=== PATIENT | male | born 1950 | race Two or more races ===

== ENCOUNTER 2020-06-02 06:21 | Emergency (ER) | payer MEDICARE, MEDICAID, SELFPAY ==
--- NOTE | 2020-06-02 | XR_ITS ---
EXAMINATION: XR knee LT 3V, XR tibia fibula LT 2V CLINICAL INFORMATION: Status post fall with pain. COMPARISON: None. TECHNIQUE: Left knee 4 views. AP and lateral left tibia and fibula. FINDINGS: LEFT KNEE: There is prominent prepatellar soft tissue swelling. No joint effusion is seen. 3 cannulated screws are present across the proximal tibia. Any previous fracture or osteotomy is completely healed with no residual deformity. No hardware complication is demonstrated. A small bone fragment projects over the posterior joint space and could represent small intra-articular loose body of undetermined chronicity. No other bony abnormality. LEFT TIBIA AND FIBULA: No additional abnormality of the tibia or fibula is demonstrated. IMPRESSION: Previous surgical procedure proximal left tibia. Question small intra-articular loose body of undetermined chronicity. No other bony abnormality. Prominent prepatellar soft tissue swelling. No joint effusion.
--- NOTE | 2020-06-02 | XR_ITS ---
EXAMINATION: XR ELBOW, LEFT CLINICAL INFORMATION: Fall and left elbow pain. COMPARISON: None TECHNIQUE: AP, lateral, and oblique views of the left elbow. FINDINGS: There is no acute fracture, malalignment, or definite joint effusion. Note is made that the lateral view is suboptimal for effusion evaluation. There are marginal osteophytes. There is no significant joint space narrowing. IMPRESSION: Mild osteoarthritis of the left elbow. No acute injury.
[2020-06-02 06:28] VITALS: BP 162/86; PULSE 77; RESP 20; TEMP 37.8; BMI 32.2
--- NOTE | 2020-06-02 06:40 | PC.NURSE ---
during exam at bedside pt states he has pain to the left elbow.
--- NOTE | 2020-06-02 06:45 | PC.NURSE ---
pt has bruising to the left knee
--- NOTE | 2020-06-02 06:46 | ED_ITS ---
HPI - Fall General Chief Complaint: Fall Stated Complaint: fall Time Seen by Provider: 06/02/20 06:42 Source: family Mode of arrival: ambulatory Limitations: no limitations History of Present Illness HPI Narrative: 69-year-old male who lost balance while walking in the street and tripped, patient landed on his left side, patient is complaining of left elbow, and left knee pain, patient was able to walk to home then called EMS to take him to the hospital. . Patient has no head injury, no head pain, no headache, no neck pain. No LOC. MD complaint: fall Onset (ago): hour(s) (2) Fall from: other ( Fell from own height.) Fall witnessed: no Place fall occurred: street Loss of consciousness: none Location of injury - extremities: left: elbow, knee and lower leg Severity: moderate Severity scale (1-10): 5 Quality: dull Associated symptoms (after fall): denies Related Data Allergies Allergy/AdvReac Type Severity Reaction Status Date / Time No Known Allergies Allergy Verified 06/02/20 08:47 [No Known Allergies*] Latex Exam Gloves Allergy Unknown rash Uncoded 04/29/20 00:00 Review of Systems Review of Systems: Yes all other systems are reviewed and are negative Constitutional: Constitutional: Denies chills, Denies daytime sleepiness, Denies fatigue, Denies fever(s), Denies lethargy, Denies stops breathing during sleep, Denies weakness and Denies weight gain Eyes: Eyes: Reports as per HPI ENT: Reports Normal hearing present, Reports dental pain and Reports nose pain Cardiovascular: Cardiovascular: Reports as per HPI Respiratory: Respiratory: Reports as per HPI Gastrointestinal: Gastrointestinal: Reports no additional gastrointestinal complaints Musculoskeletal: Musculoskeletal: Reports as per HPI Neurologic: Reports Normal hearing present, Denies Neuro-related abnormal movements and Denies weakness Endocrine: Endocrine: Denies fatigue PMFSH Past Medical History Source: nursing notes reviewed Medical History Diabetic acetonemia Hypertension Pancreatic abnormality Social History Social History Alcohol intake: unknown Smoking Status: Current every day smoker Smoked in Last 30 Days: Yes Use of substances other than those prescribed or required for medical reasons: Unknown Advance Directives: No Advance Directives Information Provided: No Physical Exam Vital Signs and I&O and Narrative: Vital Signs and I&O: Vital Signs Temp 100.0 F 06/02/20 06:28 Pulse 77 06/02/20 06:28 Resp 20 06/02/20 06:28 BP 162/86 H 06/02/20 06:28 Intake & Output 06/01/20 06/02/20 06/02/20 18:59 06:59 18:59 Weight 93.44 kg Body Mass Index 32.2 This is a 69-year-old male who lost balance and had a mechanical fall, patient sustained left elbow/ left knee pain, patient was able to ambulate at the scene. Left elbow exam: Positive tenderness, limited full range of motion, no deformity, neurovascularly intact. Left knee exam: Positive tenderness, low limited full range of motion due to tenderness, no deformity, neurovascularly intact. Const: General: cooperative and healthy appearing Orientati on/consciousness: oriented to person and oriented to place HENMT: Head: Yes normal to inspection Eyes: General: appearance normal, both eyes and all related structures Neck: Neck: Yes normal visual inspection, Yes full ROM and Yes no lymphadenopathy Chest: Chest palpation & inspection: normal inspection of the chest Resp: Effort & Inspection: normal respiratory effort Cardio: Jugular venous distension: no JVD GI: Inspection: Yes normal to inspection : General: Yes no CVA tenderness Back/Spine/Pelvis: Back: no CVA tenderness Skin: General skin exam: no rashes or lesions noted and elasticity normal Neuro: General: oriented to person and oriented to place Cranial nerves: Yes Normal hearing present Course Course Hospital Course: 69 years old male who came to the emergency department by ambulance after sustained a mechanical fall in the street, patient was complaining left elbow /left and knee pain, patient in the emergency department was able to ambulate, radiographic study showed no acute fracture. Patient GCS of 15, normal neuro exam, patient is not taking anticoagulation. Reevaluation(s) Reevaluation #1: patient in bed appears comfortable, no apparent distress, x- rays results were discussed with the patient, patient will ambulate in the emergency department then will be discharged using Tylenol/ NSAIDs if needed for pain. Time: 08:51 MDM - Fall MDM Narrative Medical decision making narrative: 69-year-old sustained mechanical fall complaining of contusion and pain in the left elbow/ left hip. Patient can safely go home using NSAIDs p.r.n. pain. Medical Records Attestation: I reviewed the patient's medical records. Lab Data Attestation: I reviewed the patient's lab results. Discharge Plan Discharge Clinical Impression: Contusion of soft tissue, Contusion of elbow, left, Contusion of knee, left Patient Disposition: Home, Self-Care Instructions: Contusion in Adults (ED) Print Language: Indonesian
[2020-06-02 09:05] VITALS: BP 138/78; PULSE 76; RESP 18
[2020-06-02] MEDS: Ibuprofen 600 MG TABLET PO (09:29)
== END 2020-06-02 09:39 | disposition home or self-care (01) ==
PROVIDERS: Emergency Provider Emergency Medicine; PCP Internal Medicine
DX: S50.02XA Contusion of left elbow, initial encounter (principal); S80.02XA Contusion of left knee, initial encounter; W01.0XXA Fall on same level from slipping, tripping and stumbling without subsequent striking against object, initial encounter; I10 Essential (primary) hypertension; F17.200 Nicotine dependence, unspecified, uncomplicated; Y93.01 Activity, walking, marching and hiking; Y92.480 Sidewalk as the place of occurrence of the external cause; Y99.9 Unspecified external cause status; Z79.891 Long term (current) use of opiate analgesic
CPT/HCPCS: 73080; 73562; 73590; 99283; 99284

== ENCOUNTER → 2020-06-06 11:06 | Outpatient (BNVA) | payer MEDICARE, SELFPAY | PROVIDERS: PCP Internal Medicine; Referring Provider Internal Medicine; Visit Provider Internal Medicine Gastroenterology | DX: K21.9 Gastro-esophageal reflux disease without esophagitis (principal); K59.09 Other constipation; Z79.899 Other long term (current) drug therapy; Z86.010 Personal history of colon polyps | CPT/HCPCS: 99213 ==

== ENCOUNTER → 2020-06-27 12:28 | Outpatient (BNVA) | payer MEDICARE, SELFPAY | PROVIDERS: PCP Internal Medicine; Visit Provider Orthopaedic Surgery | DX: M70.42 Prepatellar bursitis, left knee (principal) | CPT/HCPCS: 99212 ==

== ENCOUNTER → 2020-12-05 09:11 | Outpatient (BNVA) | payer MEDICARE, SELFPAY | PROVIDERS: PCP Internal Medicine; Visit Provider Internal Medicine Gastroenterology | DX: K59.09 Other constipation (principal); K21.9 Gastro-esophageal reflux disease without esophagitis; D63.8 Anemia in other chronic diseases classified elsewhere; Z86.010 Personal history of colon polyps | CPT/HCPCS: 99212 ==

== ENCOUNTER → 2020-12-06 09:47 | Outpatient (BNVA) | payer MEDICARE, SELFPAY | PROVIDERS: PCP Internal Medicine; Visit Provider Urology | DX: Z13.89 Encounter for screening for other disorder (principal) | CPT/HCPCS: Q3014 ==

== ENCOUNTER 2020-12-06 21:17 | Emergency (ER) | payer MEDICARE, SELFPAY ==
--- NOTE | ~2020-12-06 | XR_ITS ---
EXAMINATION: XR CHEST CLINICAL INFORMATION: Shortness of breath COMPARISON: Chest radiograph 01/31/2020, CT chest October 19 TECHNIQUE: 2 views of the chest were obtained. FINDINGS: Lungs are hyper inflated suggesting chronic obstructive pulmonary disease with flattening of the diaphragms. The heart size is normal. Some minimal bibasilar atelectasis is seen. No infiltrates, effusions or lung masses are seen. When comparison is made to the prior chest radiograph, there has been no significant interval change. XR/XR chest 2V IMPRESSION: No acute intrathoracic disease.
[2020-12-06 21:21] VITALS: BP 147/65; PULSE 69; RESP 18; TEMP 36.7; O2SAT 95; BMI 31.3
[2020-12-06 22:05] VITALS: BP 103/55; PULSE 65; RESP 12; TEMP 36.9; O2SAT 96
--- NOTE | 2020-12-06 22:45 | PC.NURSE ---
pt stated he wanted to leave and go to a different hospital, this nurse informed him that the doctor would be in shortly to see him but patient adamantly refused to wait and started disconnecting himself from bedside heart monitor and blood pressure cuff. MD went into room to assess patient and encourage him to stay but patient adamantly refused and once again said he was going to a different hospital. pt aware of risks of leaving, pt informed that he can return to [facility] at any time. pt alert and oriented, no respiratory distress noted. pt ambulated independently and gait is steady.
--- NOTE | 2020-12-06 22:55 | ED.GENADULT ---
HPI - General Adult General Chief complaint: General Medical Stated complaint: sob Time Seen by Provider: 12/06/20 22:41 Source: patient Mode of arrival: ambulatory History of Present Illness HPI narrative: This is a 70-year-old male who is minimally communicating at this time. On review of triage note had stated that his legs are weak with shortness of breath and back pain for 2 days. Attempted multiple times to engage patient in conversation as he is stating he wants to leave and go to another hospital, however he is declining further evaluation at this hospital. He was encouraged to stay as his symptoms would likely need further laboratory workup. Related Data Home Medications Medication Instructions Recorded Confirmed amlodipine 10 mg-atorvastatin 10 1 tab PO DAILY 06/06/20 12/06/20 mg tablet aspirin 81 mg tablet,delayed 81 mg PO DAILY 06/06/20 12/06/20 release clotrimazole 1 % topical cream 1 applic TOPICAL BID 06/06/20 12/06/20 diphenhydramine HCl 25 mg capsule 25 mg PO BEDTIME 06/06/20 12/06/20 insulin glargine 100 unit/mL (3 10 unit SUBCUT QPM 06/06/20 12/06/20 mL) subcutaneous pen lisinopril 40 mg tablet 40 mg PO DAILY 06/06/20 12/06/20 loratadine 10 mg capsule 10 mg PO DAILY 06/06/20 12/06/20 metformin 500 mg tablet 500 mg PO DAILY 06/06/20 12/06/20 metoprolol succinate 25 mg 12.5 mg PO DAILY 06/06/20 12/06/20 tablet,extended release 24 hr omega-3 fatty acids 1,000 mg 1,000 mg PO DAILY 06/06/20 12/06/20 capsule sennosides 8.6 mg capsule 8.6 mg PO BEDTIME 06/06/20 12/06/20 simvastatin 20 mg tablet 20 mg PO BEDTIME 06/06/20 12/06/20 trazodone 50 mg tablet 25 mg PO BEDTIME PRN 06/06/20 12/06/20 ziprasidone HCl 40 mg capsule 40 mg PO BID 06/06/20 12/06/20 zolpidem 5 mg tablet 5 mg PO BEDTIME PRN 06/06/20 12/06/20 buprenorphine 8 mg-naloxone 2 mg 10 mg SUBLINGUAL BID 12/06/20 12/06/20 sublingual film Previous Rx's Medication Instructions Recorded sucralfate 1 gram tablet 1 g PO BID 30 Days #60 tab 09/12/20 omeprazole 20 mg capsule,delayed 20 mg PO DAILY 90 Days #90 cap 10/04/20 release ferrous sulfate 300 mg (60 mg 150 mg PO DAILY 30 Days #75 ml 12/05/20 iron)/5 mL oral liquid oxybutynin chloride 5 mg 5 mg PO DAILY 90 Days #90 tab 12/06/20 tablet,extended release 24 hr tamsulosin 0.4 mg capsule 0.4 mg PO BEDTIME 90 Days #90 cap 12/06/20 Allergies Allergy/AdvReac Type Severity Reaction Status Date / Time No Known Allergies Allergy Verified 12/06/20 09:50 [No Known Allergies*] Latex Exam Gloves Allergy Unknown rash Uncoded 06/27/20 13:11 Review of Systems Review of Systems: Unable to be completed due to patient unwilling to communicate. [facility] Past Medical History Source: nursing notes reviewed Medical History Anxiety CAD (coronary artery disease) Chronic constipation COPD (chronic obstructive pulmonary disease) Diabetes mellitus Genital herpes GERD (gastroesophageal reflux disease) History of adenomatous polyp of colon Hypertension Opioid dependence on agonist therapy JAUN (obstructive sleep apnea) Pancreatic abnormality Prepatellar bursitis, left knee Surgical History No history of previous surgery Family History Family History Mother No problems noted. Father Liver cancer Social History Social History Alcohol intake: never Smoking Status: Current every day smoker Smoked in Last 30 Days: Yes Use of substances other than those prescribed or required for medical reasons: No Advance Directives: No Advance Directives Information Provided: No Current occupational status: retired Current occupation: right handed Physical Exam Vital Signs: Vital Signs: Last Vital Signs Temp 98.4 F 12/06/20 22:05 Pulse 65 12/06/20 22:05 Resp 12 12/06/20 22:05 BP 103/55 L 12/06/20 22:05 Pulse Ox 96 04/09/21 22:05 Body Mass Index 31.3 VITAL SIGNS: Reviewed. GENERAL: Well developed, well nourished, in no acute distress. PULM: Patient noted to be pursing lips while getting dressed NEUROLOGIC: Alert and oriented, Strength grossly intact x 4 without obvious focal deficits. Course Course Course Narrative: 70-year-old male presents with complaints of shortness of breath and grossly observed to have mild exertional shortness of breath while getting dressed. On review of chest x-ray is consistent with underlying COPD but otherwise without acute findings. Despite multiple attempts to encourage the patient to stay for further evaluation here in the emergency department and informing him of the risks and not stay for the complete evaluation the patient has decided to leave and pursue evaluation at another institution. Discharge Plan Discharge Clinical Impression: Breath shortness Patient Disposition: Left Against Medical Advice Instructions: Shortness of Breath (ED) Prescriptions: No Action sucralfate 1 gram tablet 1 g PO BID 30 Days Qty: 60 RF: 3 omeprazole 20 mg capsule,delayed release(DR/EC) 20 mg PO DAILY 90 Days Qty: 90 RF: 1 amlodipine-atorvastatin 10-10 mg tablet 1 tab PO DAILY RF: 0 aspirin 81 mg tablet,delayed release (DR/EC) 81 mg PO DAILY RF: 0 insulin glargine 100 unit/mL (3 mL) insulin pen 10 unit subcut QPM RF: 0 loratadine 10 mg capsule 10 mg PO DAILY RF: 0 metformin 500 mg tablet 500 mg PO DAILY RF: 0 omega-3 fatty acids [Fish Oil Concentrate] 1,000 mg capsule 1,000 mg PO DAILY RF: 0 simvastatin 20 mg tablet 20 mg PO BEDTIME RF: 0 trazodone 50 mg tablet 25 mg PO BEDTIME PRN (Reason: Insomnia) RF: 0 zolpidem 5 mg tablet 5 mg PO BEDTIME PRN (Reason: Insomnia) RF: 0 lisinopril 40 mg tablet 40 mg PO DAILY RF: 0 ziprasidone HCl 40 mg capsule 40 mg PO BID RF: 0 diphenhydramine HCl [Allergy (diphenhydramine)] 25 mg capsule 25 mg PO BEDTIME RF: 0 clotrimazole 1 % cream 1 applic topical BID RF: 0 metoprolol succinate 25 mg tablet extended release 24 hr 12.5 mg PO DAILY RF: 0 senna 8.6 mg capsule 8.6 mg PO BEDTIME RF: 0 ferrous sulfate 300 mg (60 mg iron)/5 mL liquid 150 mg PO DAILY 30 Days Qty: 75 RF: 3 buprenorphine-naloxone 8-2 mg film 10 mg sublingual BID RF: 0 tamsulosin 0.4 mg capsule 0.4 mg PO BEDTIME 90 Days Qty: 90 RF: 1 oxybutynin chloride 5 mg tablet extended release 24hr 5 mg PO DAILY 90 Days Qty: 90 RF: 1 Stand Alone Forms: Against Medical Advice Interventions: ED Discharge Assessment Last Done: 12/06/20 22:48 Discharge Date/Time: 12/06/20 22:50
== END 2020-12-06 22:50 | disposition left against medical advice (07) ==
PROVIDERS: Emergency Provider Student in an Organized Health Care Education/Training Program
DX: R06.02 Shortness of breath (principal); R53.1 Weakness; J44.9 Chronic obstructive pulmonary disease, unspecified; M54.9 Dorsalgia, unspecified; E11.9 Type 2 diabetes mellitus without complications; I10 Essential (primary) hypertension; K21.9 Gastro-esophageal reflux disease without esophagitis; F11.20 Opioid dependence, uncomplicated; Z79.82 Long term (current) use of aspirin; Z79.4 Long term (current) use of insulin; Z79.899 Other long term (current) drug therapy
CPT/HCPCS: 71046; 99283; 99284

== ENCOUNTER 2020-12-21 13:37 | Emergency (ER) | payer MEDICARE, SELFPAY ==
[2020-12-21 13:45] VITALS: BP 149/75; PULSE 75; RESP 16; TEMP 36.9; O2SAT 97; BMI 31.3
--- NOTE | 2020-12-21 13:51 | ECG_ITS ---
Test Reason : CP Blood Pressure : / mmHG Vent. Rate : 072 BPM Atrial Rate : 072 BPM P-R Int : 196 ms QRS Dur : 118 ms QT Int : 416 ms P-R-T Axes : 071 -74 062 degrees QTc Int : 455 ms Normal sinus rhythm Incomplete right bundle branch block Left anterior fascicular block Abnormal ECG When compared with ECG of 11-MAR-2020 18:47, No significant change was found Referred By: Generic ED Physician Electronically Signed By:ROSELYN MOYER MD
--- NOTE | 2020-12-21 14:35 | ED_ITS ---
HPI - Chest Pain General Chief Complaint: Chest Pain Stated Complaint: facial swelling Time Seen by Provider: 12/21/20 14:32 Source: patient Mode of arrival: ambulatory Limitations: no limitations History of Present Illness HPI narrative: 70 y/o male with history of DM on insulin, BPH, COPD, GERD, JAUN, CAD, anxiety, constipation, substance abuse, anemia of chronic disease & schizoaffective disorder who presents to the ED with sharp left sided, non- radiating chest pain since last night. He states it was mild last night but worse this morning when he woke up. He also noticed he had left sided jaw swelling and tenderness. He has some mouth pain as well. He reports chronic SOB with history of COPD and JAUN, compliant with inhalers and CPAP. His chest pain is worse when he lays on his left side and when he touches his chest wall. He denies injury. MD complaint: chest pain Pertinent past history: other (COPD) Onset (ago): day(s) (1) Timing of current episode: constant Prior episodes: Yes Onset: during rest Pain location: left chest Pain radiation: none Severity: moderate Quality: aching Relieving factors: nothing Exacerbating factors: other (laying on left side) Context: non compliance with medication Treatment prior to arrival: none Risk Factors Coronary artery disease risk factors: diabetes, hyperlipidemia and hypertension Thoracic aortic dissection risk factors: none Related Data Home Medications Medication Instructions Recorded Confirmed amlodipine 10 mg-atorvastatin 10 1 tab PO DAILY 06/06/20 12/06/20 mg tablet aspirin 81 mg tablet,delayed 81 mg PO DAILY 06/06/20 12/06/20 release clotrimazole 1 % topical cream 1 applic TOPICAL BID 06/06/20 12/06/20 diphenhydramine HCl 25 mg capsule 25 mg PO BEDTIME 06/06/20 12/06/20 insulin glargine 100 unit/mL (3 10 unit SUBCUT QPM 06/06/20 12/06/20 mL) subcutaneous pen lisinopril 40 mg tablet 40 mg PO DAILY 06/06/20 12/06/20 loratadine 10 mg capsule 10 mg PO DAILY 06/06/20 12/06/20 metformin 500 mg tablet 500 mg PO DAILY 06/06/20 12/06/20 metoprolol succinate 25 mg 12.5 mg PO DAILY 06/06/20 12/06/20 tablet,extended release 24 hr omega-3 fatty acids 1,000 mg 1,000 mg PO DAILY 06/06/20 12/06/20 capsule sennosides 8.6 mg capsule 8.6 mg PO BEDTIME 06/06/20 12/06/20 simvastatin 20 mg tablet 20 mg PO BEDTIME 06/06/20 12/06/20 trazodone 50 mg tablet 25 mg PO BEDTIME PRN 06/06/20 12/06/20 ziprasidone HCl 40 mg capsule 40 mg PO BID 06/06/20 12/06/20 zolpidem 5 mg tablet 5 mg PO BEDTIME PRN 06/06/20 12/06/20 buprenorphine 8 mg-naloxone 2 mg 10 mg SUBLINGUAL BID 12/06/20 12/06/20 sublingual film Previous Rx's Medication Instructions Recorded sucralfate 1 gram tablet 1 g PO BID 30 Days #60 tab 09/12/20 omeprazole 20 mg capsule,delayed 20 mg PO DAILY 90 Days #90 cap 10/04/20 release ferrous sulfate 300 mg (60 mg 150 mg PO DAILY 30 Days #75 ml 12/05/20 iron)/5 mL oral liquid oxybutynin chloride 5 mg 5 mg PO DAILY 90 Days #90 tab 12/06/20 tablet,extended release 24 hr tamsulosin 0.4 mg capsule 0.4 mg PO BEDTIME 90 Days #90 cap 12/06/20 amoxicillin-pot clavulanate 1 tab PO BID #14 tab 12/21/20 [Augmentin] Allergies Allergy/AdvReac Type Severity Reaction Status Date / Time No Known Allergies Allergy Verified 12/06/20 09:50 [No Known Allergies*] Latex Exam Gloves Allergy Unknown rash Uncoded 06/27/20 13:11 Review of Systems Review of Systems: Constitutional: No Fever, No Chills ENT/Mouth: No sore throat, No Rhinorrhea, No Swallowing Difficulty, +mouth pain Cardiovascular: + Chest Pain, + SOB, No Orthopnea, No Edema Respiratory: No Cough, No Sputum, No Wheezing, No dyspnea Gastrointestinal: No Nausea, No Vomiting, No Diarrhea, No abdominal Pain Genitourinary: No Dysuria, No Urinary Frequency, No Hematuria Musculoskeletal: No joint pain, No Myalgias Skin: No Skin Lesions, No rash Neuro: No Weakness, No Numbness, No Dizziness, No Headache Psych: No Anxiety/Panic, No Depression Heme/Lymph: No Bruising, No Lymphadenopathy Endocrine: No Polyuria, No Polydipsia PMF Past Medical History Medical History Anxiety CAD (coronary artery disease) Chronic constipation COPD (chronic obstructive pulmonary disease) Diabetes mellitus Genital herpes GERD (gastroesophageal reflux disease) History of adenomatous polyp of colon Hypertension Opioid dependence on agonist therapy JAUN (obstructive sleep apnea) Pancreatic abnormality Prepatellar bursitis, left knee Surgical History No history of previous surgery Family History Family History Mother No problems noted. Father Liver cancer Social History Social History Alcohol intake: never Smoking Status: Current every day smoker Advance Directives: No Advance Directives Information Provided: No Current occupational status: retired Current occupation: right handed Physical Exam Vital Signs: Vital Signs: Last Vital Signs Temp 98.4 F 12/21/20 13:45 Pulse 75 12/21/20 13:45 Resp 16 12/21/20 13:45 BP 149/75 H 12/21/20 13:45 Pulse Ox 97 12/21/20 13:45 Body Mass Index 31.3 Appearance: Alert. Oriented X3. No acute distress. Eyes: Pupils equal, round and reactive to light. ENT: Pharynx normal. Neck: Normal inspection. Neck supple. CVS: Normal heart rate and rhythm. Pulses normal. Left sided chest wall tenderness. Respiratory: No respiratory distress. Breath sounds normal. Abdomen: Soft and nontender. +BS x4 Skin: Skin warm and dry. Normal skin color. Normal skin turgor. No rashes. Extremities: No lower extremity edema. Negative Wilfredo's sign. Neuro: Oriented X 3. No motor deficit. No sensory deficit. Steady gait. Course Course Course Narrative: 70 y/o male presenting with left sided chest pain and left sided jaw swelling since last night. After interview and plan established patient initially was agreeable. POC 179. Tech went to draw blood and he states he did not want that and wanted to leave. He states he feels better, his pain is gone and he wants to go home. Multiple attempts made to try to get patient to comply with workup however he continued to decline. He left AMA last time as well. He agrees to follow up with his doctor on Wednesday and he was encouraged to come back to the ER if he decided to pursue medical assessment. Risks of leaving AMA including heart attack and explained to patient, he expressed understanding and walked out of the ER at 3:15pm. MDM - Chest Pain Medical Records Data Attestation: I reviewed the patient's medical records. Lab Data Attestation: I reviewed the patient's lab results. ECG Data ECG #1: Attestation: I personally reviewed and interpreted this ECG as follows: ECG interpretation date: 12/21/20 ECG interpretation time: 14:51 Prior ECG tracings: available for review Interpretation: normal sinus rhythm, HR 72 bpm, left anterior fascicular block, incomplete RBBB, no ST segment elevations, no changes from prior done February 2020 Discharge Plan Discharge Clinical Impression: Chest pain Qualifiers: Chest pain type: other chest pain Qualified Code(s): R07.89 - Other chest pain Patient Disposition: Left Against Medical Advice Instructions: Chest Pain (ED) Additional Instructions: It is recommended you stay in the ER for evaluation of your chest pain and jaw swelling. Please come back to the ER if you decide to pursue medical assessment and treatment. Prescriptions: New amoxicillin-pot clavulanate [Augmentin] 875-125 mg tablet 1 tab PO BID Qty: 14 RF: 0 No Action sucralfate 1 gram tablet 1 g PO BID 30 Days Qty: 60 RF: 3 omeprazole 20 mg capsule,delayed release(DR/EC) 20 mg PO DAILY 90 Days Qty: 90 RF: 1 amlodipine-atorvastatin 10-10 mg tablet 1 tab PO DAILY RF: 0 aspirin 81 mg tablet,delayed release (DR/EC) 81 mg PO DAILY RF: 0 insulin glargine 100 unit/mL (3 mL) insulin pen 10 unit subcut QPM RF: 0 loratadine 10 mg capsule 10 mg PO DAILY RF: 0 metformin 500 mg tablet 500 mg PO DAILY RF: 0 omega-3 fatty acids [Fish Oil Concentrate] 1,000 mg capsule 1,000 mg PO DAILY RF: 0 simvastatin 20 mg tablet 20 mg PO BEDTIME RF: 0 trazodone 50 mg tablet 25 mg PO BEDTIME PRN (Reason: Insomnia) RF: 0 zolpidem 5 mg tablet 5 mg PO BEDTIME PRN (Reason: Insomnia) RF: 0 lisinopril 40 mg tablet 40 mg PO DAILY RF: 0 ziprasidone HCl 40 mg capsule 40 mg PO BID RF: 0 diphenhydramine HCl [Allergy (diphenhydramine)] 25 mg capsule 25 mg PO BEDTIME RF: 0 clotrimazole 1 % cream 1 applic topical BID RF: 0 metoprolol succinate 25 mg tablet extended release 24 hr 12.5 mg PO DAILY RF: 0 senna 8.6 mg capsule 8.6 mg PO BEDTIME RF: 0 ferrous sulfate 300 mg (60 mg iron)/5 mL liquid 150 mg PO DAILY 30 Days Qty: 75 RF: 3 buprenorphine-naloxone 8-2 mg film 10 mg sublingual BID RF: 0 tamsulosin 0.4 mg capsule 0.4 mg PO BEDTIME 90 Days Qty: 90 RF: 1 oxybutynin chloride 5 mg tablet extended release 24hr 5 mg PO DAILY 90 Days Qty: 90 RF: 1 Stand Alone Forms: Dental Emergency Numbers, Against Medical Advice Interventions: ED Discharge Assessment Last Done: 12/21/20 15:14 Discharge Date/Time: 12/21/20 15:14
[2020-12-21 14:58] LABS: Glucose, Whole Blood 179 mg/dL (60-115)
[2020-12-21 15:06] VITALS: BP 164/88; PULSE 65; RESP 18; TEMP 36.8; O2SAT 95
--- NOTE | 2020-12-21 15:07 | PC.NURSE ---
patient a&ox3, property assessment monitor applied pt nsr 60s, vitals stable, attempted to start iv and draw labs and the patient declined to allow this nurse to do so, provider notified and went to speak with patient, will continue to monitor.
== END 2020-12-21 15:14 | disposition left against medical advice (07) ==
PROVIDERS: Emergency Provider Emergency Medicine; PCP Internal Medicine
DX: R07.89 Other chest pain (principal); E11.9 Type 2 diabetes mellitus without complications; E78.5 Hyperlipidemia, unspecified; I10 Essential (primary) hypertension; J44.9 Chronic obstructive pulmonary disease, unspecified; K21.9 Gastro-esophageal reflux disease without esophagitis; F11.20 Opioid dependence, uncomplicated; F17.200 Nicotine dependence, unspecified, uncomplicated; Z79.4 Long term (current) use of insulin; Z79.02 Long term (current) use of antithrombotics/antiplatelets; Z79.899 Other long term (current) drug therapy
CPT/HCPCS: 82947; 93005; 99284

== ENCOUNTER 2021-01-16 15:00 | Outpatient (REF) | payer MEDICARE, SELFPAY | END 2021-01-16 15:01 | disposition home or self-care (01) | LOC: HO.HAP 15:00 | PROVIDERS: Visit Provider Internal Medicine | DX: Z46.1 Encounter for fitting and adjustment of hearing aid (principal) | CPT/HCPCS: V5266 ==

== ENCOUNTER 2021-02-04 12:03 | Emergency (ER) | payer MEDICARE, SELFPAY ==
[2021-02-04 12:22] VITALS: BP 157/73; PULSE 74; RESP 18; TEMP 36.8; O2SAT 100; BMI 31.3
== END 2021-02-04 14:15 | disposition left against medical advice (07) ==
PROVIDERS: Emergency Provider Emergency Medicine; PCP Internal Medicine
DX: R07.9 Chest pain, unspecified (principal)
CPT/HCPCS: 99281; 99282

== ENCOUNTER 2021-03-26 19:08 | Inpatient (IN) | payer MEDICARE, SELFPAY ==
--- NOTE | 2021-03-26 | ECG_ITS ---
Test Reason : FALL Blood Pressure : / mmHG Vent. Rate : 065 BPM Atrial Rate : 065 BPM P-R Int : 178 ms QRS Dur : 126 ms QT Int : 444 ms P-R-T Axes : 049 -69 044 degrees QTc Int : 461 ms Normal sinus rhythm Left axis deviation Non-specific intra-ventricular conduction block Abnormal ECG When compared with ECG of 21-DEC-2020 13:57, No significant change was found Referred By: Generic ED Physician Electronically Signed By:MARY OCASIO
--- NOTE | ~2021-03-26 | CT_ITS ---
EXAMINATION: CT CHEST WITHOUT CONTRAST CLINICAL INFORMATION: Fall with hypoxia and shortness of breath COMPARISON: None TECHNIQUE: Multidetector volumetric CT imaging of the chest was done. Axial MIP volume rendering provided. Sagittal and coronal reformatted images were obtained. This CT examination was performed using dose optimization techniques as appropriate, variously including the following: *Automated exposure control *Adjustment of mA and/or kV according to patient size (this includes techniques or standardized protocols for targeted exams where dose is matched to indication/reason for exam; i.e. extremities or head) *Use of iterative reconstruction technique DLP: 351 mGy-cm FINDINGS: LUNGS: The lungs are clear with no evidence of inflammation or nodules. Triangular zhanna-fissural left upper lobe nodular density most likely fissural lymph node (3:266). Right lower and right middle lobe calcified granulomas (3:329 and 2:52). No pneumothorax. No hemothorax. No pneumothorax. MEDIASTINUM: The mediastinum is unremarkable. No evidence of mediastinal hemorrhage. 4 vessel arch seen with separate origin to the left vertebral artery. PLEURA: There is no pleural effusion. No pleural mass or thickening. AXILLA: No lymphadenopathy. UPPER ABDOMEN: Bilateral adrenal masses again demonstrated (see report from abdominal CT same day). OSSEOUS STRUCTURES: No rib or spine fractures. CT/CT chest wo con IMPRESSION: No evidence of acute traumatic injury status post fall. An etiology for the patient's hypoxia has not been found.
--- NOTE | ~2021-03-26 | XR_ITS ---
EXAMINATION: XR CHEST CLINICAL INFORMATION: Shortness of breath COMPARISON: 12/06/2020 TECHNIQUE: Frontal view of the chest was obtained. FINDINGS: Increased reticular nodular markings are present in the lungs when compared to the prior study which may be due to hypoinflation. The heart size is normal and there is no evidence of CHF. No focal consolidation, lung mass, pleural effusion or pneumothorax is seen to account for the acute shortness of breath. XR/XR chest 1V IMPRESSION: Hypoinflated lungs but no acute intrathoracic disease.
--- NOTE | ~2021-03-26 | CT_ITS ---
EXAMINATION: NONCONTRAST HEAD CT NONCONTRAST CERVICAL SPINE CT INDICATION INFORMATION: Clinical history this fall COMPARISON: CT head 11/06/2019 TECHNIQUE: Separate noncontrast CT examinations of the head, and cervical spine were performed. Coronal and sagittal images were created for each examination at the technologist workstation. This CT examination was performed using dose optimization techniques as appropriate, variously including the following: *Automated exposure control *Adjustment of mA and/or kV according to patient size (this includes techniques or standardized protocols for targeted exams where dose is matched to indication/reason for exam; i.e. extremities or head) *Use of iterative reconstruction technique DLP: 1468 mGy-cm FINDINGS: Head: There is no evidence of acute intracranial hemorrhage or territorial infarction. No abnormal mass effect or midline shift is seen. Martinez to white matter differentiation is well preserved. No extra-axial fluid collections are identified. No hydrocephalus. Proportional prominence of the ventricles and sulcal spaces is consistent with mild volume loss. Patchy periventricular and deep white matter hypoattenuation is consistent with mild small vessel ischemic changes. No acute soft tissue abnormality. No calvarial fracture. The mastoid air cells are well aerated. Cervical spine: There is anatomic alignment of the vertebral bodies and posterior elements. The atlantoaxial and atlantooccipital articulations are intact. Mild degenerative change in the cervical spine.. No evidence of acute fracture. No prevertebral soft tissue swelling. Some pleural-parenchymal scarring in the lung apices.. The thyroid gland is unremarkable. CT/CT cervical spine wo con IMPRESSION: No acute intracranial process. Chronic microangiopathy and volume loss. No acute fracture in the cervical spine.
--- NOTE | ~2021-03-26 | CT_ITS ---
EXAMINATION: NONCONTRAST HEAD CT NONCONTRAST CERVICAL SPINE CT INDICATION INFORMATION: Clinical history this fall COMPARISON: CT head 11/06/2019 TECHNIQUE: Separate noncontrast CT examinations of the head, and cervical spine were performed. Coronal and sagittal images were created for each examination at the technologist workstation. This CT examination was performed using dose optimization techniques as appropriate, variously including the following: *Automated exposure control *Adjustment of mA and/or kV according to patient size (this includes techniques or standardized protocols for targeted exams where dose is matched to indication/reason for exam; i.e. extremities or head) *Use of iterative reconstruction technique DLP: 1468 mGy-cm FINDINGS: Head: There is no evidence of acute intracranial hemorrhage or territorial infarction. No abnormal mass effect or midline shift is seen. Martinez to white matter differentiation is well preserved. No extra-axial fluid collections are identified. No hydrocephalus. Proportional prominence of the ventricles and sulcal spaces is consistent with mild volume loss. Patchy periventricular and deep white matter hypoattenuation is consistent with mild small vessel ischemic changes. No acute soft tissue abnormality. No calvarial fracture. The mastoid air cells are well aerated. Cervical spine: There is anatomic alignment of the vertebral bodies and posterior elements. The atlantoaxial and atlantooccipital articulations are intact. Mild degenerative change in the cervical spine.. No evidence of acute fracture. No prevertebral soft tissue swelling. Some pleural-parenchymal scarring in the lung apices.. The thyroid gland is unremarkable. CT/CT head/brain wo con IMPRESSION: No acute intracranial process. Chronic microangiopathy and volume loss. No acute fracture in the cervical spine.
--- NOTE | ~2021-03-26 | CT_ITS ---
EXAMINATION: CT ABDOMEN AND PELVIS WITHOUT CONTRAST CLINICAL INFORMATION: Abdominal pain, tenderness, syncope, leukocytosis COMPARISON: 06/13/2019 TECHNIQUE: Multidetector volumetric imaging was performed from the superior aspect of the liver through the pubic symphysis. Sagittal and coronal reformatted images were obtained on the technologist's workstation. This CT examination was performed using dose optimization techniques as appropriate, variously including the following: *Automated exposure control *Adjustment of mA and/or kV according to patient size (this includes techniques or standardized protocols for targeted exams where dose is matched to indication/reason for exam; i.e. extremities or head) *Use of iterative reconstruction technique DLP: 649 mGy-cm FINDINGS: LUNG BASES: Assessment of the lung bases limited by respiratory motion. No acute findings. LIVER, GALLBLADDER, AND BILIARY TREE: Limited assessment of the liver without IV contrast. The liver is normal in size, shape, and attenuation. No focal hepatic lesion or biliary ductal dilatation is present. The gallbladder is unremarkable with no evidence of radiopaque gallstones, gallbladder wall thickening, or obvious pericholecystic inflammatory changes. PANCREAS: Unremarkable. SPLEEN: Unremarkable. ADRENAL GLANDS: Bilateral renal masses, unchanged. The mass on the right measures 5.5 x 3.4 cm and the mass on the left measures 4.0 x 2.4 cm. KIDNEYS AND URETERS: The kidneys are normal in size, shape, and attenuation. No hydronephrosis, hydroureter, or calculi seen. No perinephric stranding. BLADDER: Right posterolateral bladder diverticulum. No focal bladder wall abnormalities. GASTROINTESTINAL TRACT: Diverticulosis without CT evidence of diverticulitis. The appendix is enlarged measuring 0.9 cm the appendix in 2019 measures 0.8 cm. Currently, the appendix contains hyperdense material, likely fecaliths. No periappendiceal inflammatory changes are appreciated. Small hiatal hernia. ABDOMINAL WALL: No significant hernia is appreciated. LYMPH NODES: No lymphadenopathy within the abdomen or pelvis by CT criteria. VASCULAR: No abdominal aortic aneurysm. The IVC is singular and right-sided. PELVIC VISCERA: Unremarkable. OSSEOUS STRUCTURES: No acute or suspicious osseous abnormality. CT/CT abdomen pelvis wo con IMPRESSION: 1. Enlarged appendix containing hyperdense material, most likely phleboliths. No periappendiceal inflammatory changes to suggest acute appendicitis. Clinical correlation requested. 2. Diverticulosis without CT evidence of diverticulitis. 3. Bilateral adrenal masses as seen on prior studies.
[2021-03-26 19:16] VITALS: BP 146/79; PULSE 72; RESP 18; TEMP 36.4; O2SAT 95; BMI 31.3
[2021-03-26 19:57] VITALS: BP 150/81; PULSE 64
[2021-03-26 19:57] LABS: Glucose, Whole Blood 118 mg/dL (60-115)
[2021-03-26 19:58] VITALS: BP 136/79; PULSE 66
[2021-03-26 20:01] VITALS: BP 141/75; PULSE 66
--- NOTE | 2021-03-26 20:14 | PC.NURSE ---
PT ON MONITOR WITH NSR AND HR 64. PT ALERT, RESPIRATIONS EASY, N/L. PT FEELING SLIGHTLY NAUSEATED BUT NO ACTIVE VOMITING AT THIS TIME. VS OBTAINED. PA IN ROOM FOR EVAL. IV PLACED TO LAC, LABS DRAWN TO LAB, EKG OBTAINED. X-RAY IN ROOM FOR PCXR. PT PLACED ON 2LNC AFTER DIPPING TO 90% ON RA. ORTHOSTATICS OBTAINED AND PHARMACY IN ROOM FOR REVIEW PT'S HOME MEDS. NS UP AND RUNNING, WITE INTACT. BS OBTAINED AND WNL. WILL CONTINUE TO MONITOR PT.
[2021-03-26 20:17] LABS: MANUAL DIFF FLAG NO
--- NOTE | 2021-03-26 20:18 | ED.SYNCOPE ---
HPI - Syncope General Chief Complaint: Syncope Stated Complaint: fall, vomitting, body ache Time Seen by Provider: 03/26/21 19:44 Source: patient Mode of arrival: wheelchair Limitations: no limitations History of Present Illness HPI narrative: 70 y/o male with history of COPD, DM on insulin, CAD, anemia of chronic disease, BPH, JAUN, constipation, schizoaffective disorder and substance abuse on Suboxone who presents to the ED from home after he had a syncopal episode this evening and collapsed in his kitchen. He reports waking up this morning feeling okay but he was not hungry all day and has not eaten anything. This evening when he was in his kitchen he remembers falling down. He thinks he was dizzy beforehand but is he having a hard time recalling the events. He remembers waking up on his kitchen floor dizzy and nauseated. He vomited. He checked his sugar at home and is was 111. He called his friend who brought him to the ER for further evaluation. On arrival he reports ongoing nausea and has some central abdominal pain. He is short of breath. He denies any traumatic injury from the fall. No headache. He thinks he may be on anticoagulation but he does not know his medication list. MD complaint: loss of consciousness and collapsed Onset (ago): hour(s) Prodromal symptoms: lightheaded Witnessed: No Context: standing up Injuries sustained associated with event: none Current symptoms: lightheaded, shortness of breath and nausea Treatments prior to arrival: none Related Data Home Medications Medication Instructions Recorded Confirmed aspirin 81 mg tablet,delayed 81 mg PO DAILY 06/06/20 03/26/21 release diphenhydramine HCl 25 mg capsule 25 mg PO BEDTIME 06/06/20 03/26/21 (Allergy (diphenhydramine)) lisinopril 40 mg tablet 40 mg PO DAILY 06/06/20 03/26/21 loratadine 10 mg capsule 10 mg PO DAILY 06/06/20 03/26/21 metoprolol succinate 25 mg 25 mg PO DAILY 06/06/20 03/26/21 tablet,extended release 24 hr sennosides 8.6 mg capsule (senna) 8.6 mg PO BEDTIME PRN 06/06/20 03/26/21 ziprasidone HCl 40 mg capsule 40 mg PO BID 06/06/20 03/26/21 zolpidem 5 mg tablet 5 mg PO BEDTIME PRN 06/06/20 03/26/21 buprenorphine 8 mg-naloxone 2 mg 1 film SUBLINGUAL BID 12/06/20 03/26/21 sublingual film amlodipine 10 mg tablet 10 mg PO BEDTIME 03/26/21 03/26/21 atorvastatin 40 mg tablet 40 mg PO BEDTIME 03/26/21 03/26/21 dorzolamide 22.3 mg-timolol 6.8 1 drp OPHTHALMIC (EYE) BID 03/26/21 03/26/21 mg/mL eye drops ferrous sulfate 15 mg iron (75 2 ml PO DAILY 03/26/21 03/26/21 mg)/mL oral drops fluticasone propionate 110 1 puff PO BID PRN 03/26/21 03/26/21 mcg/actuation HFA aerosol inhaler (Flovent HFA) glipizide 5 mg tablet, extended 5 mg PO DAILY 03/26/21 03/26/21 release 24 hr insulin detemir U-100 100 unit/mL 76 unit SUBCUT BEDTIME 03/26/21 03/26/21 subcutaneous solution (Levemir U-100 Insulin) latanoprost 0.005 % eye drops 1 drp OPHTHALMIC (EYE) BEDTIME 03/26/21 03/26/21 metformin 1,000 mg tablet 1,000 mg PO BID 03/26/21 03/26/21 multivitamin-ferrous 1 tab PO DAILY 03/26/21 03/26/21 fumarate-folic acid 18 mg-400 mcg tablet (Certavite-Antioxidant) olanzapine 5 mg tablet (Zyprexa) 5 mg PO BEDTIME 03/26/21 03/26/21 omega-3 fatty acids-fish oil 340 1 cap PO TID 03/26/21 03/26/21 mg-1,000 mg capsule (Fish Oil) peg [id number] 1 1 drp OPHTHALMIC (EYE) QID 03/26/21 03/26/21 %-0.2 %-0.2 % eye drops (Dry Eye Relief) trazodone 100 mg tablet 100 mg PO BEDTIME 03/26/21 03/26/21 trazodone 150 mg tablet 300 tab PO BEDTIME 03/26/21 03/26/21 Previous Rx's Medication Instructions Recorded sucralfate 1 gram tablet 1 g PO BID 30 Days #60 tab 09/12/20 oxybutynin chloride 5 mg 5 mg PO DAILY 90 Days #90 tab 12/06/20 tablet,extended release 24 hr tamsulosin 0.4 mg capsule 0.4 mg PO BEDTIME 90 Days #90 cap 12/06/20 omeprazole 20 mg capsule,delayed 20 mg PO DAILY 90 Days #90 cap 03/24/21 release Allergies Allergy/AdvReac Type Severity Reaction Status Date / Time Latex Exam Gloves Allergy Unknown rash Uncoded 06/27/20 13:11 Review of Systems Constitutional: Constitutional: Reports body ache(s), Reports fatigue, Denies frequent falls, Reports malaise, Reports poor appetite and Reports weakness Eyes: Eyes: Denies blurry vision, Denies change in vision and Denies other visual disturbances ENT: Reports dizziness, Denies nasal congestion and Denies neck pain Cardiovascular: Cardiovascular: Denies chest pain, Reports syncope, Denies leg edema, Reports lightheadedness, Reports Loss of Consciousness and Reports dyspnea Respiratory: Respiratory: Reports cough, Denies hemoptysis, Reports dyspnea and Denies wheezing Gastrointestinal: Gastrointestinal: Reports abdominal pain, Denies diarrhea, Reports nausea and Reports vomiting Genitourinary: Genitourinary: Denies urinary incontinence Musculoskeletal: Musculoskeletal: Reports back pain, Denies arthralgias and Denies neck pain Integumentary/Breasts: Skin/Breast: Denies lesions and Denies rash Neurologic: Denies Abnormal speech present, Reports confusion, Reports dizziness, Reports syncope, Denies frequent falls, Denies focal weakness, Denies seizure-like activity and Reports weakness Psychiatric: Psychiatric: Reports confusion Endocrine: Endocrine: Reports fatigue Hematologic/Lymphatic: Hematologic/Lymphatic: Denies easy bleeding and Denies easy bruising Allergic/Immunologic: Allergic/Immunologic: Denies wheezing PMFSH Past Medical History Medical History Anxiety CAD (coronary artery disease) Chronic constipation COPD (chronic obstructive pulmonary disease) Diabetes mellitus Genital herpes GERD (gastroesophageal reflux disease) History of adenomatous polyp of colon Hypertension Opioid dependence on agonist therapy JAUN (obstructive sleep apnea) Pancreatic abnormality Prepatellar bursitis, left knee Surgical History No history of previous surgery Family History Family History Mother No problems noted. Father Liver cancer Social History Social History Alcohol intake: never Advance Directives: No Advance Directives Information Provided: Yes Current occupational status: retired Current occupation: right handed Physical Exam Vital Signs: Vital Signs: Last Vital Signs Temp 97.5 F 03/26/21 19:16 Pulse 70 03/26/21 22:34 Resp 13 03/26/21 22:34 BP 126/70 03/26/21 22:34 Pulse Ox 96 03/26/21 22:34 Body Mass Index 31.3 Const: General: confusion Orientation/consciousness: confusion Neuro: General: confusion Speech: No Abnormal speech present Course Course Course Narrative: 70 y/o male with multiple comorbidities presenting with syncopal episode at home, N/V, abdominal pain and SOB. Hemodynamically stable and afebrile on arrival. He c/o nausea and his abdomen is tender. POC 118. Will get labs workup, CT head/neck given fall, EKG, orthostatic VS and plan to image abdomen as well. IVF and Zofran ordered. Will monitor closely, anticipate admission. Reevaluation(s) Reevaluation #1: WBC 19.1. Possibly reactive from vomiting. Mild TENA with BUN/Cr 23/1.70, most likel pre-renal from vomiting and poor PO intake. Mild rhabo with CK 843. IVF infusing. Orthostatic VS were negative. CT scan abd is pending. CT head showed no acute intracranial pathology. EKG without STEMI, no changes from prior. DDIMER elevated 563. There is concern for possible PE given his symptoms however given his TENA we are unable to get CTA chest at this time. If no acute traumatic injury in the abdomen will plan to give dose of SC Lovenox to empirically anticoagulate him until CTA vs V/Q scan can be performed. This was d/w Dr. Rivas. U/S no longer in house to get LE dopplers. Reevaluation #2: CT abd showing enlarged appendix w/ hypertensive material most likely phleboliths. No periappendiceal inflammatory changes to suggest acute appendiciits. Divertoculosis without diverticulitis. Given his leukocytosis, vomiting and initial abd tenderness will give empiric dose of Zosyn and discuss with Surgery. Lactic acid and blood cultures ordered. Patient is not septic at this time. Reevaluation #3: Case d/w Surgery, CT scan and current examination are NOT consistent with acute appendicitis. Patient dropped SpO2 88% (hx COPD), so placed on NC. Dry CT chest added. Case was d/w Dr. Weeks who will admit the patient for further workup and management. Consultations Consultation #1: General Surgery - Dr. Valerio who reviewed the CT scan, NOT consistent with acute appendicitis. MDM - Syncope Differential Diagnosis Differential diagnosis: Likely syncope due to orthostatic hypotension, vasovagal syncope, complete atrioventricular block, subarachnoid hemorrhage, pulmonary embolism and dehydration Medical Records Attestation: I reviewed the patient's medical records. Lab Data Attestation: I reviewed the patient's lab results. Result diagrams: 03/26/21 20:02 03/26/21 20:02 Labs: Lab Results 03/26/21 03/26/21 03/26/21 Range/Units 19:31 19:52 20:02 WBC 19.1 H (4.8-10.8) X10*3/uL RBC 4.55 L (4.60-5.80) X10*6/uL Hgb 14.2 (14.0-18.0) g/dl Hct 40.4 L (42-52) % MCV 88.8 (80-98) fL MCH 31.2 (27.0-33.0) pg MCHC 35.1 (31.0-36.0) g/dl RDW 12.3 (11.0-16.0) % Plt Count 279 (160-400) X10*3/uL MPV 10.2 (9.4-12.4) fL Immature Gran % (Auto) 0.9 H (0.0-0.4) % Neut % (Auto) 80.9 H (45-73) % Lymph % (Auto) 11.2 L (20-40) % Terrell % (Auto) 6.4 (2-11) % Eos % (Auto) 0.3 (0-4) % Baso % (Auto) 0.3 (0-2) % Lymph # (Auto) 2.1 (1.2-4.9) X10*3/uL Terrell # (Auto) 1.2 (0.1-1.2) X10*3/uL Eos # (Auto) 0.1 (0.0-0.4) X10*3/uL Baso # (Auto) 0.1 (0.0-0.2) X10*3/uL Abs Immat Gran (auto) 0.17 H (0.00-0.03) X10*3/uL Absolute Neuts (auto) 15.5 H (2.0-8.3) X10*3/uL Absolute Nucleated RBC 0.000 (0.0-0.012) X10*3/uL Nucleated RBC % (auto) 0.0 (0.0-0.2) /100WBC ESR (0-15) MM/HR D-Dimer NG/ML Sodium (135-145) mmol/L Potassium (3.3-5.1) mmol/L Chloride (96-108) mmol/L Carbon Dioxide (22-29) mmol/L Anion Gap (12-20) BUN (9-16) mg/dL Creatinine (0.5-1.4) mg/dL Estim Creat Clear Calc Estimated GFR POC Glucose 109 118 H (60-115) mg/dL Random Glucose (60-115) mg/dL Lactic Acid (0.5-2.0) mmol/L Calcium (8.4-10.2) mg/dL Magnesium (1.6-2.6) mg/dL Total Bilirubin (0.0-1.0) mg/dL Direct Bilirubin (0.0-0.5) mg/dL AST (5-37) U/L ALT (0-40) U/L Alkaline Phosphatase (39-117) U/L Total Creatine Kinase (38-174) U/L Troponin I High Sens (<3.5-35.0) ng/L C-Reactive Protein (< or = 0.50) mg/dL B-Natriuretic Peptide (<100) pg/mL Total Protein (6.5-8.0) g/dL Albumin (3.5-5.0) g/dL Urine Color Urine Appearance Urine pH (5.0-8.0) Ur Specific Beaver (1.005-1.025) Urine Protein (NEG-TRACE) MG/DL Urine Glucose (UA) (NEG) MG/DL Urine Ketones (NEG) MG/DL Urine Blood (NEG) Urine Nitrite (NEG) Ur Leukocyte Esterase (NEG) Urine Opiates Screen (Not Detect) Ur Barbiturates Screen (Not Detect) Ur Phencyclidine Scrn (Not Detect) Ur Amphetamines Screen (Not Detect) U Benzodiazepines Scrn (Not Detect) Urine Cocaine Screen (Not Detect) U Marijuana (THC) Screen (Not Detect) Ethyl Alcohol mg/dL COVID-19 (THANG) (Negative) COVID-19 Clin Com 03/26/21 03/26/21 03/26/21 Range/Units 20:02 20:02 20:02 WBC (4.8-10.8) X10*3/uL RBC (4.60-5.80) X10*6/uL Hgb (14.0-18.0) g/dl Hct (42-52) % MCV (80-98) fL MCH (27.0-33.0) pg MCHC (31.0-36.0) g/dl RDW (11.0-16.0) % Plt Count (160-400) X10*3/uL MPV (9.4-12.4) fL Immature Gran % (Auto) (0.0-0.4) % Neut % (Auto) (45-73) % Lymph % (Auto) (20-40) % Terrell % (Auto) (2-11) % Eos % (Auto) (0-4) % Baso % (Auto) (0-2) % Lymph # (Auto) (1.2-4.9) X10*3/uL Terrell # (Auto) (0.1-1.2) X10*3/uL Eos # (Auto) (0.0-0.4) X10*3/uL Baso # (Auto) (0.0-0.2) X10*3/uL Abs Immat Gran (auto) (0.00-0.03) X10*3/uL Absolute Neuts (auto) (2.0-8.3) X10*3/uL Absolute Nucleated RBC (0.0-0.012) X10*3/uL Nucleated RBC % (auto) (0.0-0.2) /100WBC ESR (0-15) MM/HR D-Dimer NG/ML Sodium 136 (135-145) mmol/L Potassium 3.7 (3.3-5.1) mmol/L Chloride 95 L (96-108) mmol/L Carbon Dioxide 28 (22-29) mmol/L Anion Gap 17 (12-20) BUN 23 H (9-16) mg/dL Creatinine 1.70 H (0.5-1.4) mg/dL Estim Creat Clear Calc 42.1 Estimated GFR 40 POC Glucose (60-115) mg/dL Random Glucose 116 H D (60-115) mg/dL Lactic Acid (0.5-2.0) mmol/L Calcium 10.0 D (8.4-10.2) mg/dL Magnesium 1.7 (1.6-2.6) mg/dL Total Bilirubin 0.6 (0.0-1.0) mg/dL Direct Bilirubin 0.2 (0.0-0.5) mg/dL AST 45 H D (5-37) U/L ALT 30 (0-40) U/L Alkaline Phosphatase 81 (39-117) U/L Total Creatine Kinase (38-174) U/L Troponin I High Sens 8.4 (<3.5-35.0) ng/L C-Reactive Protein 0.11 (< or = 0.50) mg/dL B-Natriuretic Peptide 12 (<100) pg/mL Total Protein 7.7 (6.5-8.0) g/dL Albumin 4.7 (3.5-5.0) g/dL Urine Color Urine Appearance Urine pH (5.0-8.0) Ur Specific Beaver (1.005-1.025) Urine Protein (NEG-TRACE) MG/DL Urine Glucose (UA) (NEG) MG/DL Urine Ketones (NEG) MG/DL Urine Blood (NEG) Urine Nitrite (NEG) Ur Leukocyte Esterase (NEG) Urine Opiates Screen (Not Detect) Ur Barbiturates Screen (Not Detect) Ur Phencyclidine Scrn (Not Detect) Ur Amphetamines Screen (Not Detect) U Benzodiazepines Scrn (Not Detect) Urine Cocaine Screen (Not Detect) U Marijuana (THC) Screen (Not Detect) Ethyl Alcohol mg/dL COVID-19 (THANG) Negative (Negative) COVID-19 Clin Com See Note 03/26/21 03/26/21 03/26/21 Range/Units 20:02 20:02 20:02 WBC (4.8-10.8) X10*3/uL RBC (4.60-5.80) X10*6/uL Hgb (14.0-18.0) g/dl Hct (42-52) % MCV (80-98) fL MCH (27.0-33.0) pg MCHC (31.0-36.0) g/dl RDW (11.0-16.0) % Plt Count (160-400) X10*3/uL MPV (9.4-12.4) fL Immature Gran % (Auto) (0.0-0.4) % Neut % (Auto) (45-73) % Lymph % (Auto) (20-40) % Terrell % (Auto) (2-11) % Eos % (Auto) (0-4) % Baso % (Auto) (0-2) % Lymph # (Auto) (1.2-4.9) X10*3/uL Terrell # (Auto) (0.1-1.2) X10*3/uL Eos # (Auto) (0.0-0.4) X10*3/uL Baso # (Auto) (0.0-0.2) X10*3/uL Abs Immat Gran (auto) (0.00-0.03) X10*3/uL Absolute Neuts (auto) (2.0-8.3) X10*3/uL Absolute Nucleated RBC (0.0-0.012) X10*3/uL Nucleated RBC % (auto) (0.0-0.2) /100WBC ESR (0-15) MM/HR D-Dimer 563 NG/ML Sodium (135-145) mmol/L Potassium (3.3-5.1) mmol/L Chloride (96-108) mmol/L Carbon Dioxide (22-29) mmol/L Anion Gap (12-20) BUN (9-16) mg/dL Creatinine (0.5-1.4) mg/dL Estim Creat Clear Calc Estimated GFR POC Glucose (60-115) mg/dL Random Glucose (60-115) mg/dL Lactic Acid (0.5-2.0) mmol/L Calcium (8.4-10.2) mg/dL Magnesium (1.6-2.6) mg/dL Total Bilirubin (0.0-1.0) mg/dL Direct Bilirubin (0.0-0.5) mg/dL AST (5-37) U/L ALT (0-40) U/L Alkaline Phosphatase (39-117) U/L Total Creatine Kinase 843 H (38-174) U/L Troponin I High Sens (<3.5-35.0) ng/L C-Reactive Protein (< or = 0.50) mg/dL B-Natriuretic Peptide (<100) pg/mL Total Protein (6.5-8.0) g/dL Albumin (3.5-5.0) g/dL Urine Color Urine Appearance Urine pH (5.0-8.0) Ur Specific Beaver (1.005-1.025) Urine Protein (NEG-TRACE) MG/DL Urine Glucose (UA) (NEG) MG/DL Urine Ketones (NEG) MG/DL Urine Blood (NEG) Urine Nitrite (NEG) Ur Leukocyte Esterase (NEG) Urine Opiates Screen (Not Detect) Ur Barbiturates Screen (Not Detect) Ur Phencyclidine Scrn (Not Detect) Ur Amphetamines Screen (Not Detect) U Benzodiazepines Scrn (Not Detect) Urine Cocaine Screen (Not Detect) U Marijuana (THC) Screen (Not Detect) Ethyl Alcohol < 10 mg/dL COVID-19 (THANG) (Negative) COVID-19 Clin Com 03/26/21 03/26/21 03/26/21 Range/Units 20:02 22:37 22:37 WBC (4.8-10.8) X10*3/uL RBC (4.60-5.80) X10*6/uL Hgb (14.0-18.0) g/dl Hct (42-52) % MCV (80-98) fL MCH (27.0-33.0) pg MCHC (31.0-36.0) g/dl RDW (11.0-16.0) % Plt Count (160-400) X10*3/uL MPV (9.4-12.4) fL Immature Gran % (Auto) (0.0-0.4) % Neut % (Auto) (45-73) % Lymph % (Auto) (20-40) % Terrell % (Auto) (2-11) % Eos % (Auto) (0-4) % Baso % (Auto) (0-2) % Lymph # (Auto) (1.2-4.9) X10*3/uL Terrell # (Auto) (0.1-1.2) X10*3/uL Eos # (Auto) (0.0-0.4) X10*3/uL Baso # (Auto) (0.0-0.2) X10*3/uL Abs Immat Gran (auto) (0.00-0.03) X10*3/uL Absolute Neuts (auto) (2.0-8.3) X10*3/uL Absolute Nucleated RBC (0.0-0.012) X10*3/uL Nucleated RBC % (auto) (0.0-0.2) /100WBC ESR 4 (0-15) MM/HR D-Dimer NG/ML Sodium (135-145) mmol/L Potassium (3.3-5.1) mmol/L Chloride (96-108) mmol/L Carbon Dioxide (22-29) mmol/L Anion Gap (12-20) BUN (9-16) mg/dL Creatinine (0.5-1.4) mg/dL Estim Creat Clear Calc Estimated GFR POC Glucose (60-115) mg/dL Random Glucose (60-115) mg/dL Lactic Acid (0.5-2.0) mmol/L Calcium (8.4-10.2) mg/dL Magnesium (1.6-2.6) mg/dL Total Bilirubin (0.0-1.0) mg/dL Direct Bilirubin (0.0-0.5) mg/dL AST (5-37) U/L ALT (0-40) U/L Alkaline Phosphatase (39-117) U/L Total Creatine Kinase (38-174) U/L Troponin I High Sens (<3.5-35.0) ng/L C-Reactive Protein (< or = 0.50) mg/dL B-Natriuretic Peptide (<100) pg/mL Total Protein (6.5-8.0) g/dL Albumin (3.5-5.0) g/dL Urine Color YELLOW Urine Appearance CLEAR Urine pH 6.0 (5.0-8.0) Ur Specific Beaver 1.020 (1.005-1.025) Urine Protein TRACE (NEG-TRACE) MG/DL Urine Glucose (UA) NEG (NEG) MG/DL Urine Ketones NEG (NEG) MG/DL Urine Blood NEG (NEG) Urine Nitrite NEG (NEG) Ur Leukocyte Esterase NEG (NEG) Urine Opiates Screen POSITIVE H (Not Detect) Ur Barbiturates Screen Not Detected (Not Detect) Ur Phencyclidine Scrn Not Detected (Not Detect) Ur Amphetamines Screen Not Detected (Not Detect) U Benzodiazepines Scrn Not Detected (Not Detect) Urine Cocaine Screen Not Detected (Not Detect) U Marijuana (THC) Screen Not Detected (Not Detect) Ethyl Alcohol mg/dL COVID-19 (THANG) (Negative) COVID-19 Clin Com 03/26/21 Range/Units 23:01 WBC (4.8-10.8) X10*3/uL RBC (4.60-5.80) X10*6/uL Hgb (14.0-18.0) g/dl Hct (42-52) % MCV (80-98) fL MCH (27.0-33.0) pg MCHC (31.0-36.0) g/dl RDW (11.0-16.0) % Plt Count (160-400) X10*3/uL MPV (9.4-12.4) fL Immature Gran % (Auto) (0.0-0.4) % Neut % (Auto) (45-73) % Lymph % (Auto) (20-40) % Terrell % (Auto) (2-11) % Eos % (Auto) (0-4) % Baso % (Auto) (0-2) % Lymph # (Auto) (1.2-4.9) X10*3/uL Terrell # (Auto) (0.1-1.2) X10*3/uL Eos # (Auto) (0.0-0.4) X10*3/uL Baso # (Auto) (0.0-0.2) X10*3/uL Abs Immat Gran (auto) (0.00-0.03) X10*3/uL Absolute Neuts (auto) (2.0-8.3) X10*3/uL Absolute Nucleated RBC (0.0-0.012) X10*3/uL Nucleated RBC % (auto) (0.0-0.2) /100WBC ESR (0-15) MM/HR D-Dimer NG/ML Sodium (135-145) mmol/L Potassium (3.3-5.1) mmol/L Chloride (96-108) mmol/L Carbon Dioxide (22-29) mmol/L Anion Gap (12-20) BUN (9-16) mg/dL Creatinine (0.5-1.4) mg/dL Estim Creat Clear Calc Estimated GFR POC Glucose (60-115) mg/dL Random Glucose (60-115) mg/dL Lactic Acid 0.8 (0.5-2.0) mmol/L Calcium (8.4-10.2) mg/dL Magnesium (1.6-2.6) mg/dL Total Bilirubin (0.0-1.0) mg/dL Direct Bilirubin (0.0-0.5) mg/dL AST (5-37) U/L ALT (0-40) U/L Alkaline Phosphatase (39-117) U/L Total Creatine Kinase (38-174) U/L Troponin I High Sens (<3.5-35.0) ng/L C-Reactive Protein (< or = 0.50) mg/dL B-Natriuretic Peptide (<100) pg/mL Total Protein (6.5-8.0) g/dL Albumin (3.5-5.0) g/dL Urine Color Urine Appearance Urine pH (5.0-8.0) Ur Specific Beaver (1.005-1.025) Urine Protein (NEG-TRACE) MG/DL Urine Glucose (UA) (NEG) MG/DL Urine Ketones (NEG) MG/DL Urine Blood (NEG) Urine Nitrite (NEG) Ur Leukocyte Esterase (NEG) Urine Opiates Screen (Not Detect) Ur Barbiturates Screen (Not Detect) Ur Phencyclidine Scrn (Not Detect) Ur Amphetamines Screen (Not Detect) U Benzodiazepines Scrn (Not Detect) Urine Cocaine Screen (Not Detect) U Marijuana (THC) Screen (Not Detect) Ethyl Alcohol mg/dL COVID-19 (THANG) (Negative) COVID-19 Clin Com ECG Data Attestation: I personally reviewed and interpreted this ECG as follows: Prior ECG tracings: available for review Interpretation: normal sinus rhythm, HR 65 bpm, ID interval 178 ms, Critical Care Time Critical Care Time Critical Care Time: Yes Total Critical Care Time: 45 Attestation: I have personally provided critical care time exclusive of time spent on separately billable procedures. Time includes review of lab data, radiology results, discussion with consultants, and monitoring for potential decompensation. Intervention performed as documented. Discharge Plan Discharge Clinical Impression: Syncope and collapse, TENA (acute kidney injury), Vomiting, Rhabdomyolysis Patient Disposition: Admitted As Inpatient Prescriptions: No Action sucralfate 1 gram tablet 1 g PO BID 30 Days Qty: 60 RF: 3 omeprazole 20 mg capsule,delayed release(DR/EC) 20 mg PO DAILY 90 Days Qty: 90 RF: 1 latanoprost 0.005 % drops 1 drp ophthalmic (eye) BEDTIME RF: 0 atorvastatin 40 mg tablet 40 mg PO BEDTIME RF: 0 olanzapine [Zyprexa] 5 mg tablet 5 mg PO BEDTIME RF: 0 glipizide 5 mg tablet extended release 24hr 5 mg PO DAILY RF: 0 trazodone 100 mg tablet 100 mg PO BEDTIME RF: 0 amlodipine 10 mg tablet 10 mg PO BEDTIME RF: 0 metformin 1,000 mg tablet 1,000 mg PO BID RF: 0 dorzolamide-timolol 22.3-6.8 mg/mL drops 1 drp ophthalmic (eye) BID RF: 0 Flovent HFA 110 mcg/actuation HFA aerosol inhaler 1 puff PO BID PRN (Reason: Wheezing) RF: 0 Dry Eye Relief 1-0.2-0.2 % drops 1 drp ophthalmic (eye) QID RF: 0 Levemir U-100 Insulin 100 unit/mL solution 76 unit subcut BEDTIME RF: 0 Fish Oil 340-1,000 mg capsule 1 cap PO TID RF: 0 ferrous sulfate 15 mg iron (75 mg)/mL drops 2 ml PO DAILY RF: 0 Certavite-Antioxidant 18-400 mg-mcg tablet 1 tab PO DAILY RF: 0 trazodone 150 mg tablet 300 tab PO BEDTIME RF: 0 aspirin 81 mg tablet,delayed release (DR/EC) 81 mg PO DAILY RF: 0 loratadine 10 mg capsule 10 mg PO DAILY RF: 0 zolpidem 5 mg tablet 5 mg PO BEDTIME PRN (Reason: Insomnia) RF: 0 lisinopril 40 mg tablet 40 mg PO DAILY RF: 0 ziprasidone HCl 40 mg capsule 40 mg PO BID RF: 0 diphenhydramine HCl [Allergy (diphenhydramine)] 25 mg capsule 25 mg PO BEDTIME RF: 0 metoprolol succinate 25 mg tablet extended release 24 hr 25 mg PO DAILY RF: 0 senna 8.6 mg capsule 8.6 mg PO BEDTIME PRN (Reason: Constipation) RF: 0 buprenorphine-naloxone 8-2 mg film 1 film sublingual BID RF: 0 tamsulosin 0.4 mg capsule 0.4 mg PO BEDTIME 90 Days Qty: 90 RF: 1 oxybutynin chloride 5 mg tablet extended release 24hr 5 mg PO DAILY 90 Days Qty: 90 RF: 1
[2021-03-26 20:21] LABS: Basophils Absolute Auto 0.1 X10*3/uL (0.0-0.2); Basophils Percent Auto 0.3 % (0-2); Eosinophils Absolute Auto 0.1 X10*3/uL (0.0-0.4); Eosinophils Percent Auto 0.3 % (0-4); Hematocrit 40.4 % (42-52); Hemoglobin 14.2 g/dl (14.0-18.0); Imm Gran Abs Auto 0.17 X10*3/uL (0.00-0.03); Imm Gran Pct Auto 0.9 % (0.0-0.4); Lymphocytes Absolute Auto 2.1 X10*3/uL (1.2-4.9); Lymphocytes Percent Auto 11.2 % (20-40); Mean Corpuscular HGB Conc 35.1 g/dl (31.0-36.0); Mean Corpuscular Hemoglobin 31.2 pg (27.0-33.0); Mean Corpuscular Volume 88.8 fL (80-98); Mean Platelet Volume 10.2 fL (9.4-12.4); Monocytes Absolute Auto 1.2 X10*3/uL (0.1-1.2); Monocytes Percent Auto 6.4 % (2-11); Neutrophils Absolute Auto 15.5 X10*3/uL (2.0-8.3); Neutrophils Percent Auto 80.9 % (45-73); Platelet Count 279 X10*3/uL (160-400); Red Blood Count 4.55 X10*6/uL (4.60-5.80); Red Cell Distribution Width 12.3 % (11.0-16.0); White Blood Count 19.1 X10*3/uL (4.8-10.8)
--- NOTE | 2021-03-26 20:26 | PHA.MEDREC ---
Pharmacy Consult ? Medication Reconciliation Pharmacy has completed the medication reconciliation. Patient reports taking ziprasidone, zolpidem, and sucralfate however there is no recently filled history for the past year on these medications. [facility] does not have an history of Ambien being filled and records go back 2 years. Lilliam Medina, PharmD
--- NOTE | 2021-03-26 20:29 | PC.NURSE ---
PT TO CT IN STRETCHER.
[2021-03-26 20:30] LABS: D Dimer 563 NG/ML
[2021-03-26] MEDS: 0.9 % Sodium Chloride 1,000 ML 999 ML IVCONT (20:31)
--- NOTE | 2021-03-26 20:33 | PC.NURSE ---
PT DIPPING TO 90% ON RA. PA AWARE AND PLACED ON 2L NC. WITH PO 98%. WILL CONTINUE TO MONITOR PT.
[2021-03-26 20:42] LABS: COVID-19 Test Negative (Negative); IDNOW Serial# 9DD0AD1C
[2021-03-26 20:49] LABS: Ethanol < 10 mg/dL
[2021-03-26 20:54] LABS: Alanine Aminotransferase 30 U/L (0-40); Albumin Level 4.7 g/dL (3.5-5.0); Alkaline Phosphatase 81 U/L (39-117); Anion Gap 17 (12-20); Aspartate Amino Transferase 45 U/L (5-37); Bilirubin Direct 0.2 mg/dL (0.0-0.5); Bilirubin Total 0.6 mg/dL (0.0-1.0); Blood Urea Nitrogen 23 mg/dL (9-16); Carbon Dioxide 28 mmol/L (22-29); Chloride 95 mmol/L (96-108); Creatinine Clr Calc Pharmacy 42.1; Estimated Glomerular Filt Rate 40; Glucose Random 116 mg/dL (60-115); Magnesium 1.7 mg/dL (1.6-2.6); Potassium 3.7 mmol/L (3.3-5.1); Sodium 136 mmol/L (135-145); Total Protein 7.7 g/dL (6.5-8.0)
[2021-03-26 20:59] LABS: B Type Natriuretic Peptide 12 pg/mL (<100); Troponin-I High Sensitivity 8.4 ng/L (<3.5-35.0)
[2021-03-26 21:16] VITALS: BP 136/69; PULSE 65; RESP 10; O2SAT 98
[2021-03-26 22:27] LABS: Glucose, Whole Blood 109 mg/dL (60-115)
[2021-03-26 22:34] VITALS: BP 126/70; PULSE 70; RESP 13; O2SAT 96
[2021-03-26 22:56] LABS: Appearance Urine CLEAR; Color Urine YELLOW; Glucose Urine UA NEG (NEG); Leukocyte Esterase Urine NEG (NEG); Nitrite Urine NEG (NEG); Urine Blood NEG (NEG); Urine Ketones NEG (NEG); Urine Protein TRACE MG/DL (NEG-TRACE)
[2021-03-26] MEDS: Enoxaparin Sodium 100 MG/ML SYRINGE 90 MG SUBCUT (23:03)
[2021-03-26] MEDS: Piperacillin Sodium/Tazobactam 3.375 GM in 0.9 % Sodium Chloride 50 ML IV (23:03)
[2021-03-26 23:17] LABS: C Reactive Protein 0.11 mg/dL (< or = 0.50)
[2021-03-26 23:27] LABS: Lactic Acid 0.8 mmol/L (0.5-2.0)
[2021-03-26 23:27] LABS: Amphetamine Screen Urine Not Detected (Not Detect); Barbiturates, Urine Not Detected (Not Detect); Benzodiazepines Screen Urine Not Detected (Not Detect); Cannabinoid Screen Urine Not Detected (Not Detect); Cocaine Screen Urine Not Detected (Not Detect); Opiate Screen Urine POSITIVE (Not Detect); Phencyclidine Screen Urine Not Detected (Not Detect)
--- NOTE | 2021-03-26 23:45 | PC.NURSE ---
PT GOT UP OOB AND WAS YELLING AT STAFF YOU TAKE EVERYTHING OFF OR IM GONA PULL EVERYTHING OFF . PT STARTED PULLING MONITOR OFF AND WAS PULLING OUT IV. IV REMOVED INTACT. WAS UNABLE TO REDIRECT PT. PA IN ROOM TO CALM PT DOWN. PT DECEIDED TO STAY AND NOW AWAITING NEW IV PLACEMENT.
[2021-03-26 23:52] LABS: Erythrocyte Sedimentation Rate 4 MM/HR (0-15)
--- NOTE | 2021-03-27 01:33 | PM.EVENT ---
Event Note Date of Service: 03/27/21 Event Note: left AMA. i did not have a chance to speak to p0t as he walked out from ed prior t me even gettiung to him
--- NOTE | 2021-03-27 01:38 | PC.NURSE ---
PT YELLING AT STAFF, NO ONE IS COMING IN TO HELP ME, I AM NOT STAYING ALL NIGHT AND SLEEPING IN THE ER. UNABLE TO REDIRECT AND CALM PT DOWN, PT AMBULATES AROUND ED STATING IM LOOKING FOR A BATHROOM. SECURITY TO PT. PT AMBULATES TO WAITING ROOM WITH STEADY EVEN GAIT. PT DENIES ANY CP OR SOB AT THIS TIME. PT IN NAD.
--- NOTE | 2021-03-27 01:42 | PC.NURSE ---
HOSPITALIST AWARE OF PT LEAVING.
--- NOTE | 2021-03-27 02:18 | PC.NURSE ---
PT RETURNS FROM WR STATING IM REALLY SICK AND YOU NEED TO HELP ME PT RETURNS TO ROOM, CHG INTO GOWN AND AWAITING IV PLACEMENT.
[2021-03-27 02:32] VITALS: BP 156/76; PULSE 71; RESP 16; O2SAT 98
[2021-03-27 02:44] LABS: Glucose, Whole Blood 176 mg/dL (60-115)
[2021-03-27 04:17] VITALS: BP 124/67; PULSE 70; RESP 13; O2SAT 96
--- NOTE | 2021-03-27 04:20 | PC.NURSE ---
PT ON MONITOR WITH HR 86, PT RESTING WAKES TO VOICE, RESPIRATIONS EASY, N/L. SKIN W/D. PT AWAITING FOR ROOM ASSIGNMENT. WILL CONTINUE TO MONITOR PT. VS OBTAINED.
--- NOTE | 2021-03-27 06:36 | P.HPHOSP_ITS ---
History of Present Illness Date of Service: 03/26/21 Chief Complaint: syncope 70-year-old male with past medical history of CAD, COPD, diabetes, GERD, hypertension, JAUN, on Suboxonepresents to the hospital with syncopal episode. Patient has a very poor historian and very difficult to get much history from him but reports that he was in his kitchen, when he passed out, he does not remember how long he was passed out for, denies having any dizziness or palpitations, no chest pain prior to passing out. Reports that after he came about he had significant nausea vomiting, with some abdominal pain that is now relieved. Denies any previous similar episode. Patient reports that he has not been eating or drinking for the past 2 days because she just did not have an appetite. Of breath that is chronic, no cough, no sputum production. No fever or chills. On arrival to the ED orthostatic vitals negative, no significant abnormal vitals otherwise. Patient noted to dipped down to the 88 while at room air, therefore placed on 2 L of oxygen. Labs significant for WBC count of 19.1, hemoglobin of 14.2, BUN of 23, creatinine of 1.7, AST of 45, CK of 843, UA negative, UDS positive for opioids, D-dimer is elevated, Chest CT shows no evidence of acute pathology, Abdominal pelvic CT shows enlarged appendix, containing hyperdense material, most likely phleboliths. This was discussed with surgical attending and did not feel that this is appendicitis and no further management needed. CT abdomen also showed diverticulosis without diverticulitis, bilateral adrenal masses seen on previous CT imaging While in the ED patient left AMA but returned few hours later. Review of Systems Review of Systems: Review of system otherwise negative [facility] Medical History Anxiety CAD (coronary artery disease) Chronic constipation COPD (chronic obstructive pulmonary disease) Diabetes mellitus Genital herpes GERD (gastroesophageal reflux disease) History of adenomatous polyp of colon Hypertension Opioid dependence on agonist therapy JAUN (obstructive sleep apnea) Pancreatic abnormality Prepatellar bursitis, left knee Family History Mother No problems noted. Father Liver cancer Surgical History No history of previous surgery Social History Alcohol intake: never Advance Directives: No Advance Directives Information Provided: Yes Current occupational status: retired Current occupation: right handed Meds Allergies Allergy/AdvReac Type Severity Reaction Status Date / Time Latex Exam Gloves Allergy Unknown rash Uncoded 06/27/20 13:11 Active Medications: Current Medications Generic Name Dose Route Start Last Admin Trade Name Freq PRN Reason Stop Dose Admin Acetaminophen 650 mg 03/27/21 03:25 Acetaminophen 325 Mg Tablet PO Q6H PRN Pain, Mild (Pain Scale 1-3) Amlodipine Besylate 10 mg 03/27/21 02:11 Amlodipine Besylate 10 Mg Tablet PO BEDTIME SAM Protocol Artificial Tears 1 drop 03/27/21 09:00 Artificial Tears 15 Ml Drops EYE-BOTH QID [facility] Aspirin 81 mg 03/27/21 09:00 Aspirin Enteric Coated 81 Mg Tablet.Dr PO DAILY SAM Atorvastatin Calcium 40 mg 03/27/21 02:11 Atorvastatin Calcium 40 Mg Tablet PO BEDTIME SAM Buprenorphine/Naloxone 1 film 03/27/21 02:11 Buprenorphine/Naloxone 8/2 Mg Film SUBLINGUAL BID SAM Diphenhydramine HCl 25 mg 03/27/21 02:11 Diphenhydramine Hcl 25 Mg Tablet PO BEDTIME SAM Docusate Sodium 100 mg 03/27/21 03:25 Docusate Sodium 100 Mg Capsule PO DAILY PRN Constipation Dorzolamide/Timolol 1 drop 03/27/21 02:11 Dorzolamide/Timolo 2.23%/0.68% 10 Ml Drbtl EYE-BOTH BID [facility] Fluticasone Propionate 1 puff 03/27/21 05:08 Fluticasone Propionate 100 Mcg Blst.W.Dev INHALE RBID PRN Wheezing Heparin Sodium (Porcine) 5,000 unit 03/27/21 06:00 Heparin Sodium,Porcine 5,000 Unit/Ml Vial SUBCUT Q12H [facility] Sodium Chloride 1,000 mls @ 100 mls/hr 03/27/21 03:25 Ns IVCONT .Q10H [facility] Insulin Glargine 76 unit 03/27/21 21:00 Insulin Glargine,Hum.Rec.Anlog 100 Unit/Ml 10 Ml Vial SUBCUT BEDTIME [facility] Insulin Human Lispro 0 unit 03/27/21 07:30 Insulin Lispro 100 Unit/Ml 3 Ml Vial SUBCUT QIDACHS [facility] Protocol Latanoprost 1 drop 03/27/21 02:11 Latanoprost 0.005 % Ophth Yari 2.5 Ml Drops EYE-BOTH BEDTIME [facility] Lisinopril 40 mg 03/27/21 09:00 Lisinopril 40 Mg Tablet PO DAILY [facility] Protocol Loratadine 10 mg 03/27/21 09:00 Loratadine 10 Mg Tablet PO DAILY [facility] Metoprolol Succinate 25 mg 03/27/21 09:00 Metoprolol Succinate Er 25 Mg Tab.Er.24h PO DAILY [facility] Protocol Multivitamins/Minerals 1 tab 03/27/21 09:00 Multivitamin With Minerals Tablet PO DAILY [facility] Olanzapine 5 mg 03/27/21 02:11 Olanzapine 5 Mg Tablet PO BEDTIME [facility] Omeprazole 20 mg 03/27/21 09:00 Omeprazole 20 Mg Capsule.Dr PO DAILY [facility] Ondansetron HCl 4 mg 03/27/21 03:25 Ondansetron Hcl 4 Mg/2 Ml Vial IVPUSH Q8H PRN Nausea and Vomiting Oxybutynin Chloride 5 mg 03/27/21 09:00 Oxybutynin Chloride Er 5 Mg Tab.Er.24 PO DAILY [facility] Pharmacy Consult 1 each 03/26/21 19:45 Consult Rx Perform Med Rec MISCELLANE ONCE PRN Consult order Sodium Chloride 3 ml 03/27/21 08:00 0.9 % Sodium Chloride Flush 3 Ml Syringe IVFLUSH QSHIFT [facility] Sucralfate 1 gm 03/27/21 06:30 Sucralfate 1 Gm Tablet PO BID@0630,1630 [facility] Tamsulosin HCl 0.4 mg 03/27/21 02:11 Tamsulosin Hcl 0.4 Mg Capsule PO BEDTIME [facility] Trazodone HCl 100 mg 03/27/21 02:11 Trazodone Hcl 100 Mg Tablet PO BEDTIME [facility] Trazodone HCl 45,000 mg 03/27/21 02:11 Trazodone Hcl 100 Mg Tablet PO BEDTIME [facility] Ziprasidone 40 mg 03/27/21 02:11 Ziprasidone 40 Mg Capsule PO BID [facility] Zolpidem Tartrate 5 mg 03/27/21 02:11 Zolpidem Tartrate 5 Mg Tablet PO BEDTIME PRN Insomnia Home Medications Medication Instructions Recorded Confirmed Last Taken Type aspirin 81 mg tablet,delayed 81 mg PO DAILY 06/06/20 03/26/21 03/26/21 History release diphenhydramine HCl 25 mg capsule 25 mg PO BEDTIME 06/06/20 03/26/21 03/25/21 History (Allergy (diphenhydramine)) lisinopril 40 mg tablet 40 mg PO DAILY 06/06/20 03/26/21 03/26/21 History loratadine 10 mg capsule 10 mg PO DAILY 06/06/20 03/26/21 03/26/21 History metoprolol succinate 25 mg 25 mg PO DAILY 06/06/20 03/26/21 03/26/21 History tablet,extended release 24 hr sennosides 8.6 mg capsule (senna) 8.6 mg PO BEDTIME PRN 06/06/20 03/26/21 Unknown History ziprasidone HCl 40 mg capsule 40 mg PO BID 06/06/20 03/26/21 03/26/21 History zolpidem 5 mg tablet 5 mg PO BEDTIME PRN 06/06/20 03/26/21 03/25/21 History buprenorphine 8 mg-naloxone 2 mg 1 film SUBLINGUAL BID 12/06/20 03/26/21 History sublingual film amlodipine 10 mg tablet 10 mg PO BEDTIME 03/26/21 03/26/21 03/25/21 History atorvastatin 40 mg tablet 40 mg PO BEDTIME 03/26/21 03/26/21 03/25/21 History dorzolamide 22.3 mg-timolol 6.8 1 drp OPHTHALMIC (EYE) BID 03/26/21 03/26/21 03/26/21 History mg/mL eye drops ferrous sulfate 15 mg iron (75 2 ml PO DAILY 03/26/21 03/26/21 03/26/21 History mg)/mL oral drops fluticasone propionate 110 1 puff PO BID PRN 03/26/21 03/26/21 Unknown History mcg/actuation HFA aerosol inhaler (Flovent HFA) glipizide 5 mg tablet, extended 5 mg PO DAILY 03/26/21 03/26/21 03/26/21 History release 24 hr insulin detemir U-100 100 unit/mL 76 unit SUBCUT BEDTIME 03/26/21 03/26/21 03/25/21 History subcutaneous solution (Levemir U-100 Insulin) latanoprost 0.005 % eye drops 1 drp OPHTHALMIC (EYE) BEDTIME 03/26/21 03/26/21 03/25/21 History metformin 1,000 mg tablet 1,000 mg PO BID 03/26/21 03/26/21 03/26/21 History multivitamin-ferrous 1 tab PO DAILY 03/26/21 03/26/21 03/26/21 History fumarate-folic acid 18 mg-400 mcg tablet (Certavite-Antioxidant) olanzapine 5 mg tablet (Zyprexa) 5 mg PO BEDTIME 03/26/21 03/26/21 03/25/21 History omega-3 fatty acids-fish oil 340 1 cap PO TID 03/26/21 03/26/21 03/26/21 History mg-1,000 mg capsule (Fish Oil) peg [id number] 1 1 drp OPHTHALMIC (EYE) QID 03/26/21 03/26/21 03/26/21 History %-0.2 %-0.2 % eye drops (Dry Eye Relief) trazodone 100 mg tablet 100 mg PO BEDTIME 03/26/21 03/26/21 03/25/21 History trazodone 150 mg tablet 300 tab PO BEDTIME 03/26/21 03/26/21 03/25/21 History Physical Exam Vital Signs and Narrative: Vital Signs: Last Vital Signs Temp 97.5 F 03/26/21 19:16 Pulse 70 03/27/21 04:17 Resp 13 03/27/21 04:17 BP 124/67 03/27/21 04:17 Pulse Ox 96 03/27/21 04:17 Body Mass Index 31.3 Const: General: cooperative and no acute distress Orientation/consciousness: patient oriented x3 Eyes: General: appearance normal, both eyes and all related structures Resp: Effort & Inspection: normal respiratory effort and able to speak in complete sentences Auscultation: clear to auscultation bilaterally Cardio: Rate: regular rate Rhythm: regular rhythm GI: Palpation (GI): Soft to palpation Auscultation: normal bowel sounds Skin: General skin exam: no rashes or lesions noted Neuro: Other: No neurological deficits General: patient oriented x3 Cognition (Neuro): normal cognition Extrem: General: Yes normal to inspection and Yes no pedal edema Results Labs CBC and Chem 7: 03/26/21 20:02 03/26/21 20:02 Labs: Laboratory Results - last 24 hr 03/26/21 03/26/21 03/26/21 19:31 19:52 20:02 MCV 88.8 MCH 31.2 MCHC 35.1 RDW 12.3 Plt Count 279 MPV 10.2 Immature Gran % (Auto) 0.9 H Neut % (Auto) 80.9 H Lymph % (Auto) 11.2 L [place] % (Auto) 6.4 Eos % (Auto) 0.3 Baso % (Auto) 0.3 Lymph # (Auto) 2.1 [place] # (Auto) 1.2 Eos # (Auto) 0.1 Baso # (Auto) 0.1 Abs Immat Gran (auto) 0.17 H Absolute Neuts (auto) 15.5 H Absolute Nucleated RBC 0.000 Nucleated RBC % (auto) 0.0 ESR D-Dimer Anion Gap Estim Creat Clear Calc Estimated GFR POC Glucose 109 118 H Random Glucose Lactic Acid Calcium Magnesium Total Bilirubin Direct Bilirubin AST ALT Alkaline Phosphatase Total Creatine Kinase Troponin I High Sens C-Reactive Protein B-Natriuretic Peptide Total Protein Albumin Urine Color Urine Appearance Urine pH Ur Specific [place] Urine Protein Urine Glucose (UA) Urine Ketones Urine Blood Urine Nitrite Ur Leukocyte Esterase Urine Opiates Screen Ur Barbiturates Screen Ur Phencyclidine Scrn Ur Amphetamines Screen U Benzodiazepines Scrn Urine Cocaine Screen U Marijuana (THC) Screen Ethyl Alcohol COVID-19 (THANG) COVID-19 Clin Com 03/26/21 03/26/21 03/26/21 20:02 20:02 20:02 MCV MCH MCHC RDW Plt Count MPV Immature Gran % (Auto) Neut % (Auto) Lymph % (Auto) [place] % (Auto) Eos % (Auto) Baso % (Auto) Lymph # (Auto) [place] # (Auto) Eos # (Auto) Baso # (Auto) Abs Immat Gran (auto) Absolute Neuts (auto) Absolute Nucleated RBC Nucleated RBC % (auto) ESR D-Dimer Anion Gap 17 Estim Creat Clear Calc 42.1 Estimated GFR 40 POC Glucose Random Glucose 116 H D Lactic Acid Calcium 10.0 D Magnesium 1.7 Total Bilirubin 0.6 Direct Bilirubin 0.2 AST 45 H D ALT 30 Alkaline Phosphatase 81 Total Creatine Kinase Troponin I High Sens 8.4 C-Reactive Protein 0.11 B-Natriuretic Peptide 12 Total Protein 7.7 Albumin 4.7 Urine Color Urine Appearance Urine pH Ur Specific [place] Urine Protein Urine Glucose (UA) Urine Ketones Urine Blood Urine Nitrite Ur Leukocyte Esterase Urine Opiates Screen Ur Barbiturates Screen Ur Phencyclidine Scrn Ur Amphetamines Screen U Benzodiazepines Scrn Urine Cocaine Screen U Marijuana (THC) Screen Ethyl Alcohol COVID-19 (THANG) Negative COVID-19 Clin Com See Note 03/26/21 03/26/21 03/26/21 20:02 20:02 20:02 MCV MCH MCHC RDW Plt Count MPV Immature Gran % (Auto) Neut % (Auto) Lymph % (Auto) [place] % (Auto) Eos % (Auto) Baso % (Auto) Lymph # (Auto) [place] # (Auto) Eos # (Auto) Baso # (Auto) Abs Immat Gran (auto) Absolute Neuts (auto) Absolute Nucleated RBC Nucleated RBC % (auto) ESR D-Dimer 563 Anion Gap Estim Creat Clear Calc Estimated GFR POC Glucose Random Glucose Lactic Acid Calcium Magnesium Total Bilirubin Direct Bilirubin AST ALT Alkaline Phosphatase Total Creatine Kinase 843 H Troponin I High Sens C-Reactive Protein B-Natriuretic Peptide Total Protein Albumin Urine Color Urine Appearance Urine pH Ur Specific [place] Urine Protein Urine Glucose (UA) Urine Ketones Urine Blood Urine Nitrite Ur Leukocyte Esterase Urine Opiates Screen Ur Barbiturates Screen Ur Phencyclidine Scrn Ur Amphetamines Screen U Benzodiazepines Scrn Urine Cocaine Screen U Marijuana (THC) Screen Ethyl Alcohol < 10 COVID-19 (THANG) COVID-19 Clin Com 03/26/21 03/26/21 03/26/21 20:02 22:37 22:37 MCV MCH MCHC RDW Plt Count MPV Immature Gran % (Auto) Neut % (Auto) Lymph % (Auto) [place] % (Auto) Eos % (Auto) Baso % (Auto) Lymph # (Auto) [place] # (Auto) Eos # (Auto) Baso # (Auto) Abs Immat Gran (auto) Absolute Neuts (auto) Absolute Nucleated RBC Nucleated RBC % (auto) ESR 4 D-Dimer Anion Gap Estim Creat Clear Calc Estimated GFR POC Glucose Random Glucose Lactic Acid Calcium Magnesium Total Bilirubin Direct Bilirubin AST ALT Alkaline Phosphatase Total Creatine Kinase Troponin I High Sens C-Reactive Protein B-Natriuretic Peptide Total Protein Albumin Urine Color YELLOW Urine Appearance CLEAR Urine pH 6.0 Ur Specific [place] 1.020 Urine Protein TRACE Urine Glucose (UA) NEG Urine Ketones NEG Urine Blood NEG Urine Nitrite NEG Ur Leukocyte Esterase NEG Urine Opiates Screen POSITIVE H Ur Barbiturates Screen Not Detected Ur Phencyclidine Scrn Not Detected Ur Amphetamines Screen Not Detected U Benzodiazepines Scrn Not Detected Urine Cocaine Screen Not Detected U Marijuana (THC) Screen Not Detected Ethyl Alcohol COVID-19 (THANG) COVID-19 Clin Com 03/26/21 03/27/21 23:01 02:37 MCV MCH MCHC RDW Plt Count MPV Immature Gran % (Auto) Neut % (Auto) Lymph % (Auto) [place] % (Auto) Eos % (Auto) Baso % (Auto) Lymph # (Auto) [place] # (Auto) Eos # (Auto) Baso # (Auto) Abs Immat Gran (auto) Absolute Neuts (auto) Absolute Nucleated RBC Nucleated RBC % (auto) ESR D-Dimer Anion Gap Estim Creat Clear Calc Estimated GFR POC Glucose 176 H Random Glucose Lactic Acid 0.8 Calcium Magnesium Total Bilirubin Direct Bilirubin AST ALT Alkaline Phosphatase Total Creatine Kinase Troponin I High Sens C-Reactive Protein B-Natriuretic Peptide Total Protein Albumin Urine Color Urine Appearance Urine pH Ur Specific [place] Urine Protein Urine Glucose (UA) Urine Ketones Urine Blood Urine Nitrite Ur Leukocyte Esterase Urine Opiates Screen Ur Barbiturates Screen Ur Phencyclidine Scrn Ur Amphetamines Screen U Benzodiazepines Scrn Urine Cocaine Screen U Marijuana (THC) Screen Ethyl Alcohol COVID-19 (THANG) COVID-19 Clin Com ECG Interpretation: No significant abnormal EKG finding No significant elevated QT interval Imaging Radiologist's Impressions: Impressions Cervical Spine CT 03/26/21 19:45 IMPRESSION: No acute intracranial process. Chronic microangiopathy and volume loss. No acute fracture in the cervical spine. Chest X-Ray 03/26/21 19:46 IMPRESSION: Hypoinflated lungs but no acute intrathoracic disease. Head CT 03/26/21 19:46 IMPRESSION: No acute intracranial process. Chronic microangiopathy and volume loss. No acute fracture in the cervical spine. Abdomen/Pelvis CT 03/26/21 21:24 IMPRESSION: 1. Enlarged appendix containing hyperdense material, most likely phleboliths. No periappendiceal inflammatory changes to suggest acute appendicitis. Clinical correlation requested. 2. Diverticulosis without CT evidence of diverticulitis. 3. Bilateral adrenal masses as seen on prior studies. Chest CT 03/26/21 23:15 IMPRESSION: No evidence of acute traumatic injury status post fall. An etiology for the patient's hypoxia has not been found. Assessment and Plan (1) Syncope and collapse: Status: Acute (2) TENA (acute kidney injury): Status: Acute (3) Vomiting: Qualifiers: Nausea presence: with nausea Vomiting Intractability: non-intractable Vomiting type: unspecified Qualified Code(s): R11.2 - Nausea with vomiting, unspecified Status: Acute (4) Rhabdomyolysis: Qualifiers: Encounter type: initial encounter Rhabdomyolysis type: traumatic Qualified Code(s): T79.6XXA - Traumatic ischemia of muscle, initial encounter Status: Acute (5) Elevated d-dimer: Status: Acute (6) Acute respiratory failure with hypoxia: Status: Acute 70-year-old male who presents to the hospital with complaints of syncopal episode found to have TENA # syncope - unclear etiology - orthostatic vitals negative - EKG shows no significant abnormality, no significant QT prolongation - no elevated troponin - no evidence of acute infection - will admit patient to telemetry - monitor for recurrence # acute hypoxic respiratory failure - patient has history of COPD although denies any cough, no sputum production, and no increased dyspnea from baseline - patient on 2 L of oxygen - chest x-ray and CT negative for any acute findings - COVID negative - titrate oxygen office tolerated # TENA - most likely secondary to dehydration - will start him on fluids - follow BMP # vomiting - possibly post syncope - patient has no abdominal pain, CT of the abdomen shows enlarged appendix, CT reviewed by by general surgeon, does not feel the patient has appendicitis or needs any further intervention - no recurrent vomiting - will monitor # leukocytosis - possibly reactive - no evidence of acute infection - follows # elevated D-dimer - patient hypoxic with no evidence of acute infection - given 1 prophylaxis Lovenox dose for possible DVT - will obtain V/Q scan in a.m. in the setting of TENA # rhabdomyolysis - most likely secondary to the fall/syncope - will start him on IV fluids # hypertension - stable - continue lisinopril # diabetes - low-dose sliding scale insulin - diabetic diet - hold antihyperglycemics DVT prophylaxis: heparin Quality Stroke Does the patient have a stroke diagnosis?: No VTE Prior VTE?: No VTE Risk Level:: Medical - moderate - high VTE Device Contraindication: Treatment Not Indicated VTE Drug Contraindication: N/A - Med Ordered
[2021-03-27 06:44] VITALS: BP 126/75; PULSE 78; RESP 16
--- NOTE | 2021-03-27 07:03 | PC.NURSE ---
floor unable to take report.
--- NOTE | 2021-03-27 07:28 | PC.NURSE ---
Patient is sitting up on side of bed eating breakfast after ambulating to the bathroom. Pt is alert and in no distress
--- NOTE | 2021-03-27 07:43 | PC.NURSE ---
Report given to MARSHALL Baker. Pt will be going to room 472.
--- NOTE | 2021-03-27 07:50 | PC.NURSE ---
Pt refuses to go get lung scan done. Pt requesting to sign out AMA
--- NOTE | 2021-03-27 07:56 | PC.NURSE ---
peripheral iv removed by ED staff with pressure bandage applied. Patient is ambulatory to exit in no distress refusing to sign any ama paperwork
--- NOTE | 2021-03-27 07:59 | PC.NURSE ---
ON COMING HOSPITALIST AWARE OF PTS REFUSAL AND REQUEST TO LEAVE. HE IS REFUSING TO WAIT TO SPEAK WITH THE IP MEDICAL TEAM. HE IS WALKING AROUND THE ED FULLY DRESSED AND OUTWARDLY AGGITATED. HE WAS VERBALLY EDUCATED ON RISKS OF LEAVING. HE CONTINUED TO REFUSE TO STAY
--- NOTE | 2021-03-27 08:51 | PM.EVENT ---
Event Note Date of Service: 03/27/21 Event Note: AMA Note Notified by ED RN at 754 that the patient wanted to leave against medical advice. I asked the RN to advise the patient to wait for me to come speak with him about the risks of leaving against medical advice. However, the patient refused and left against medical advice. He did not wait for me to explain to him the risks of leaving AMA. Of note, patient had done this previously a few hours before in the ED.
--- NOTE | 2021-03-27 09:08 | MHC.CM.PN ---
Patient is documented to be a poor Historian; CM spoke with Daughter/HCP/Macie @ [phone] and addressed IMM with her, mailing the original to her certified letter and by placing a copy on the chart. 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 CM has initiated and will follow for dc planning. PCP is Dr.Annabel Massey. Patient uses a cane at times to assist with mobility.Macie is unsure of where/how Patient obtains his Suboxone.
== END 2021-03-27 08:57 | disposition left against medical advice (07) | DRG 565 ==
LOC: HO.ED 03-27 02:12 → HO.EDOVER 03-27 02:24 → HO.IMC 03-27 06:51
PROVIDERS: Physician Assistant; Admitting Provider Internal Medicine; Emergency Provider Emergency Medicine Emergency Medical Services; PCP Internal Medicine; Visit Provider Family Medicine
DX: T79.6XXA Traumatic ischemia of muscle, initial encounter (principal); F11.20 Opioid dependence, uncomplicated; N17.9 Acute kidney failure, unspecified; I82.409 Acute embolism and thrombosis of unspecified deep veins of unspecified lower extremity; W18.30XA Fall on same level, unspecified, initial encounter; Y93.9 Activity, unspecified; Y92.000 Kitchen of unspecified non-institutional (private) residence as the place of occurrence of the external cause; Y99.9 Unspecified external cause status; F41.9 Anxiety disorder, unspecified; I25.10 Atherosclerotic heart disease of native coronary artery without angina pectoris; N40.0 Benign prostatic hyperplasia without lower urinary tract symptoms; E11.9 Type 2 diabetes mellitus without complications; R55 Syncope and collapse; D72.829 Elevated white blood cell count, unspecified; R11.10 Vomiting, unspecified; G47.33 Obstructive sleep apnea (adult) (pediatric); Z20.822 Contact with and (suspected) exposure to COVID-19; Z79.4 Long term (current) use of insulin; Z79.51 Long term (current) use of inhaled steroids; Z79.82 Long term (current) use of aspirin; Z79.899 Other long term (current) drug therapy
CPT/HCPCS: 36415; 70450; 71045; 71250; 72125; 74176; 80048; 80076; 80307; 81003; 82077; 82550; 82947; 83605; 83735; 83880; 84484; 85025; 85379; 85652; 86140; 87040; 87635; 93005; 99285; J1650; J2405; J2543

== ENCOUNTER 2021-06-02 23:49 | Emergency (ER) | payer MEDICARE, SELFPAY ==
--- NOTE | ~2021-06-02 | XR_ITS ---
EXAMINATION: XR CHEST CLINICAL INFORMATION: Chest pain COMPARISON: 03/26/2021 TECHNIQUE: Frontal view of the chest was obtained. FINDINGS: Hyperexpanded lungs. No consolidation, edema, or effusion. No pneumothorax. The cardiomediastinal silhouette is unchanged. No acute osseous abnormality. XR/XR chest 1V IMPRESSION: No acute pulmonary finding.
[2021-06-03] VITALS (7 sets, daily range): BP systolic 112–134; BP diastolic 62–71; PULSE 61–65; RESP 11–16; TEMP 36.8–36.9; O2SAT 93–95; BMI 31.8
--- NOTE | 2021-06-03 00:05 | ECG_ITS ---
Test Reason : CHEST PAIN Blood Pressure : / mmHG Vent. Rate : 067 BPM Atrial Rate : 067 BPM P-R Int : 188 ms QRS Dur : 120 ms QT Int : 416 ms P-R-T Axes : 060 -72 030 degrees QTc Int : 439 ms Normal sinus rhythm Left anterior fascicular block Abnormal ECG When compared with ECG of 26-MAR-2021 19:38, No significant change was found Referred By: Generic ED Physician Electronically Signed By:MARI SPARROW
--- NOTE | 2021-06-03 00:28 | ED_ITS ---
HPI - Chest Pain General Chief Complaint: Chest Pain <Dorian Mathews MD - Last Filed: 06/03/21 01:36> Stated Complaint: CP <Dorian Mathews MD - Last Filed: 06/03/21 01:36> Time Seen by Provider: 06/03/21 01:32 <Dorian Mathews MD - Last Filed: 06/03/21 01:36> Source: patient <Dorian Mathews MD - Last Filed: 06/03/21 01:36> Mode of arrival: ambulatory <Dorian Mathews MD - Last Filed: 06/03/21 01:36> Limitations: no limitations <Dorian Mathews MD - Last Filed: 06/03/21 01:36> History of Present Illness HPI narrative: Patient is 70 years old with history of COPD, diabetes, GERD, hypertension, JAUN on Suboxone comes here for chest pain on the left side for last 24 hours has heavy with pinching sensation that started yesterday morning, pain is constant with worsening in between no relation with breathing or movement, no radiation of pain, no shortness of breath no palpitation or syncope patient did have pain like this in the past but never so severe patient is not taking any aspirin <Dorian Mathews MD - Last Filed: 06/03/21 01:36> Related Data Home Medications: Home Medications Medication Instructions Recorded Confirmed aspirin 81 mg tablet,delayed 81 mg PO DAILY 06/06/20 03/26/21 release diphenhydramine HCl 25 mg capsule 25 mg PO BEDTIME 06/06/20 03/26/21 (Allergy (diphenhydramine)) lisinopril 40 mg tablet 40 mg PO DAILY 06/06/20 03/26/21 loratadine 10 mg capsule 10 mg PO DAILY 06/06/20 03/26/21 metoprolol succinate 25 mg 25 mg PO DAILY 06/06/20 03/26/21 tablet,extended release 24 hr sennosides 8.6 mg capsule (senna) 8.6 mg PO BEDTIME PRN 06/06/20 03/26/21 ziprasidone HCl 40 mg capsule 40 mg PO BID 06/06/20 03/26/21 zolpidem 5 mg tablet 5 mg PO BEDTIME PRN 06/06/20 03/26/21 buprenorphine 8 mg-naloxone 2 mg 1 film SUBLINGUAL BID 12/06/20 03/26/21 sublingual film amlodipine 10 mg tablet 10 mg PO BEDTIME 03/26/21 03/26/21 atorvastatin 40 mg tablet 40 mg PO BEDTIME 03/26/21 03/26/21 dorzolamide 22.3 mg-timolol 6.8 1 drp OPHTHALMIC (EYE) BID 03/26/21 03/26/21 mg/mL eye drops ferrous sulfate 15 mg iron (75 2 ml PO DAILY 03/26/21 03/26/21 mg)/mL oral drops fluticasone propionate 110 1 puff PO BID PRN 03/26/21 03/26/21 mcg/actuation HFA aerosol inhaler (Flovent HFA) glipizide 5 mg tablet, extended 5 mg PO DAILY 03/26/21 03/26/21 release 24 hr insulin detemir U-100 100 unit/mL 76 unit SUBCUT BEDTIME 03/26/21 03/26/21 subcutaneous solution (Levemir U-100 Insulin) latanoprost 0.005 % eye drops 1 drp OPHTHALMIC (EYE) BEDTIME 03/26/21 03/26/21 metformin 1,000 mg tablet 1,000 mg PO BID 03/26/21 03/26/21 multivitamin-ferrous 1 tab PO DAILY 03/26/21 03/26/21 fumarate-folic acid 18 mg-400 mcg tablet (Certavite-Antioxidant) olanzapine 5 mg tablet (Zyprexa) 5 mg PO BEDTIME 03/26/21 03/26/21 omega-3 fatty acids-fish oil 340 1 cap PO TID 03/26/21 03/26/21 mg-1,000 mg capsule (Fish Oil) peg [id number] 1 1 drp OPHTHALMIC (EYE) QID 03/26/21 03/26/21 %-0.2 %-0.2 % eye drops (Dry Eye Relief) trazodone 100 mg tablet 100 mg PO BEDTIME PRN 03/26/21 03/26/21 trazodone 150 mg tablet 300 tab PO BEDTIME 03/26/21 03/26/21 Previous Rx's Medication Instructions Recorded sucralfate 1 gram tablet 1 g PO BID 30 Days #60 tab 09/12/20 tamsulosin 0.4 mg capsule 0.4 mg PO BEDTIME 90 Days #90 cap 12/06/20 omeprazole 20 mg capsule,delayed 20 mg PO DAILY 90 Days #90 cap 03/24/21 release oxybutynin chloride 5 mg 5 mg PO DAILY 90 Days #90 tab 05/12/21 tablet,extended release 24 hr <Dorian Mathews MD - Last Filed: 06/03/21 01:36> Allergies/Adverse Reactions: Allergies Allergy/AdvReac Type Severity Reaction Status Date / Time Latex Exam Gloves Allergy Unknown rash Uncoded 06/27/20 13:11 <Dorian Mathews MD - Last Filed: 06/03/21 01:36> Review of Systems Review of Systems: Yes all other systems are reviewed and are negative <Dorian Mathews MD - Last Filed: 06/03/21 01:36> PMFSH Past Medical History Medical History: Medical History Anxiety CAD (coronary artery disease) Chronic constipation COPD (chronic obstructive pulmonary disease) Diabetes mellitus Genital herpes GERD (gastroesophageal reflux disease) History of adenomatous polyp of colon Hypertension Opioid dependence on agonist therapy JAUN (obstructive sleep apnea) Pancreatic abnormality Prepatellar bursitis, left knee <Dorian Mathews MD - Last Filed: 06/03/21 01:36> Surgical History: Surgical History No history of previous surgery <Dorian Mathews MD - Last Filed: 06/03/21 01:36> Family History Family History: Family History Mother No problems noted. Father Liver cancer <Dorian Mathews MD - Last Filed: 06/03/21 01:36> Social History Social History: Social History Alcohol intake: never Advance Directives: No Advance Directives Information Provided: Yes service: No Current occupational status: retired and disabled Current occupation: right handed <Dorian Mathews MD - Last Filed: 06/03/21 01:36> Physical Exam Vital Signs: Vital Signs: Last Vital Signs Temp 98.2 F 06/03/21 02:00 Pulse 64 06/03/21 03:24 Resp 12 06/03/21 03:24 BP 130/71 06/03/21 03:24 Pulse Ox 94 06/03/21 03:24 Body Mass Index 31.8 <Dorian Mathews MD - Last Filed: 06/03/21 01:36> Vital Signs: Last Vital Signs Temp 98.2 F 06/03/21 02:00 Pulse 64 06/03/21 03:24 Resp 12 06/03/21 03:24 BP 130/71 06/03/21 03:24 Pulse Ox 94 06/03/21 03:24 Body Mass Index 31.8 <Jennifer Cruz MD - Last Filed: 06/03/21 03:31> Appearance: Alert. Oriented X3. In mild distress Eyes: No pallor or icterus ENT: Pharynx normal. Oral Mucosa moist Neck: Normal inspection. Neck supple. CVS: Normal heart rate and rhythm. Pulses normal. Respiratory: No respiratory distress. Equal air entry bilateral, no wheezing/rales/rhonchi Abdomen: Soft and nontender. Bowel sounds are present, no mass palpable, no CVA tenderness Skin: Skin warm and dry. Normal skin color. Normal skin turgor. Extremities: No lower extremity edema. No calf tenderness Neuro: Oriented X 3. <Dorian Mathews MD - Last Filed: 06/03/21 01:36> Course Reevaluation(s) Reevaluation #1: Patient continues without chest pain and repeat troponin is trending down. This discharged in stable condition with instructions for follow-up. <Jennifer Cruz MD - Last Filed: 06/03/21 03:31> Time: 03:30 <Jennifer Cruz MD - Last Filed: 06/03/21 03:31> MDM - Chest Pain MDM Narrative Medical decision making narrative: Patient chest pain for 24 hours without any acute EKG changes initial troponin was 6.1 which is essentially negative will repeat troponin 2 hours. Patient asymptomatic at this time sleeping without any chest pain <Dorian Mathews MD - Last Filed: 06/03/21 01:36> Differential Diagnosis Differential diagnosis: Likely atypical chest pain <Dorian Mathews MD - Last Filed: 06/03/21 01:36> Medical Records Data Attestation: I reviewed the patient's medical records. <Dorian Mathews MD - Last Filed: 06/03/21 01:36> Lab Data Attestation: I reviewed the patient's lab results. <Dorian Mathews MD - Last Filed: 06/03/21 01:36> Result diagrams: : 06/03/21 00:46 06/03/21 00:46 <Dorian Mathews MD - Last Filed: 06/03/21 01:36> Labs: Lab Results 06/03/21 06/03/21 06/03/21 Range/Units 00:46 00:46 00:46 WBC 13.3 H (4.8-10.8) X10*3/uL RBC 4.18 L (4.60-5.80) X10*6/uL Hgb 12.9 L (14.0-18.0) g/dl Hct 37.8 L (42-52) % MCV 90.4 (80-98) fL MCH 30.9 (27.0-33.0) pg MCHC 34.1 (31.0-36.0) g/dl RDW 11.9 (11.0-16.0) % Plt Count 299 (160-400) X10*3/uL MPV 9.9 (9.4-12.4) fL Immature Gran % (Auto) 0.5 H (0.0-0.4) % Neut % (Auto) 67.2 (45-73) % Lymph % (Auto) 22.9 (20-40) % [place] % (Auto) 7.5 (2-11) % Eos % (Auto) 1.5 (0-4) % Baso % (Auto) 0.4 (0-2) % Lymph # (Auto) 3.0 (1.2-4.9) X10*3/uL [place] # (Auto) 1.0 (0.1-1.2) X10*3/uL Eos # (Auto) 0.2 (0.0-0.4) X10*3/uL Baso # (Auto) 0.1 (0.0-0.2) X10*3/uL Abs Immat Gran (auto) 0.06 H (0.00-0.03) X10*3/uL Absolute Neuts (auto) 8.9 H (2.0-8.3) X10*3/uL Absolute Nucleated RBC 0.000 (0.0-0.012) X10*3/uL Nucleated RBC % (auto) 0.0 (0.0-0.2) /100WBC PT (9.9-13.0) SEC INR (0.9-1.1) APTT (24.1-38.0) SEC Sodium 139 (135-145) mmol/L Potassium 4.2 (3.3-5.1) mmol/L Chloride 100 (96-108) mmol/L Carbon Dioxide 31 H (22-29) mmol/L Anion Gap 12 (12-20) BUN 15 (9-16) mg/dL Creatinine 0.83 (0.5-1.4) mg/dL Estim Creat Clear Calc 87.0 Estimated GFR > 60 Random Glucose 226 H D (60-115) mg/dL Calcium 9.5 (8.4-10.2) mg/dL Troponin I High Sens 6.1 (<3.5-35.0) ng/L 06/03/21 06/03/21 Range/Units 00:46 02:52 WBC (4.8-10.8) X10*3/uL RBC (4.60-5.80) X10*6/uL Hgb (14.0-18.0) g/dl Hct (42-52) % MCV (80-98) fL MCH (27.0-33.0) pg MCHC (31.0-36.0) g/dl RDW (11.0-16.0) % Plt Count (160-400) X10*3/uL MPV (9.4-12.4) fL Immature Gran % (Auto) (0.0-0.4) % Neut % (Auto) (45-73) % Lymph % (Auto) (20-40) % [place] % (Auto) (2-11) % Eos % (Auto) (0-4) % Baso % (Auto) (0-2) % Lymph # (Auto) (1.2-4.9) X10*3/uL [place] # (Auto) (0.1-1.2) X10*3/uL Eos # (Auto) (0.0-0.4) X10*3/uL Baso # (Auto) (0.0-0.2) X10*3/uL Abs Immat Gran (auto) (0.00-0.03) X10*3/uL Absolute Neuts (auto) (2.0-8.3) X10*3/uL Absolute Nucleated RBC (0.0-0.012) X10*3/uL Nucleated RBC % (auto) (0.0-0.2) /100WBC PT 11.8 (9.9-13.0) SEC INR 1.0 (0.9-1.1) APTT 33.0 (24.1-38.0) SEC Sodium (135-145) mmol/L Potassium (3.3-5.1) mmol/L Chloride (96-108) mmol/L Carbon Dioxide (22-29) mmol/L Anion Gap (12-20) BUN (9-16) mg/dL Creatinine (0.5-1.4) mg/dL Estim Creat Clear Calc Estimated GFR Random Glucose (60-115) mg/dL Calcium (8.4-10.2) mg/dL Troponin I High Sens 4.9 (<3.5-35.0) ng/L <Dorian Mathews MD - Last Filed: 06/03/21 01:36> Lab Results 06/03/21 06/03/21 06/03/21 Range/Units 00:46 00:46 00:46 WBC 13.3 H (4.8-10.8) X10*3/uL RBC 4.18 L (4.60-5.80) X10*6/uL Hgb 12.9 L (14.0-18.0) g/dl Hct 37.8 L (42-52) % MCV 90.4 (80-98) fL MCH 30.9 (27.0-33.0) pg MCHC 34.1 (31.0-36.0) g/dl RDW 11.9 (11.0-16.0) % Plt Count 299 (160-400) X10*3/uL MPV 9.9 (9.4-12.4) fL Immature Gran % (Auto) 0.5 H (0.0-0.4) % Neut % (Auto) 67.2 (45-73) % Lymph % (Auto) 22.9 (20-40) % [place] % (Auto) 7.5 (2-11) % Eos % (Auto) 1.5 (0-4) % Baso % (Auto) 0.4 (0-2) % Lymph # (Auto) 3.0 (1.2-4.9) X10*3/uL [place] # (Auto) 1.0 (0.1-1.2) X10*3/uL Eos # (Auto) 0.2 (0.0-0.4) X10*3/uL Baso # (Auto) 0.1 (0.0-0.2) X10*3/uL Abs Immat Gran (auto) 0.06 H (0.00-0.03) X10*3/uL Absolute Neuts (auto) 8.9 H (2.0-8.3) X10*3/uL Absolute Nucleated RBC 0.000 (0.0-0.012) X10*3/uL Nucleated RBC % (auto) 0.0 (0.0-0.2) /100WBC PT (9.9-13.0) SEC INR (0.9-1.1) APTT (24.1-38.0) SEC Sodium 139 (135-145) mmol/L Potassium 4.2 (3.3-5.1) mmol/L Chloride 100 (96-108) mmol/L Carbon Dioxide 31 H (22-29) mmol/L Anion Gap 12 (12-20) BUN 15 (9-16) mg/dL Creatinine 0.83 (0.5-1.4) mg/dL Estim Creat Clear Calc 87.0 Estimated GFR > 60 Random Glucose 226 H D (60-115) mg/dL Calcium 9.5 (8.4-10.2) mg/dL Troponin I High Sens 6.1 (<3.5-35.0) ng/L 06/03/21 06/03/21 Range/Units 00:46 02:52 WBC (4.8-10.8) X10*3/uL RBC (4.60-5.80) X10*6/uL Hgb (14.0-18.0) g/dl Hct (42-52) % MCV (80-98) fL MCH (27.0-33.0) pg MCHC (31.0-36.0) g/dl RDW (11.0-16.0) % Plt Count (160-400) X10*3/uL MPV (9.4-12.4) fL Immature Gran % (Auto) (0.0-0.4) % Neut % (Auto) (45-73) % Lymph % (Auto) (20-40) % [place] % (Auto) (2-11) % Eos % (Auto) (0-4) % Baso % (Auto) (0-2) % Lymph # (Auto) (1.2-4.9) X10*3/uL [place] # (Auto) (0.1-1.2) X10*3/uL Eos # (Auto) (0.0-0.4) X10*3/uL Baso # (Auto) (0.0-0.2) X10*3/uL Abs Immat Gran (auto) (0.00-0.03) X10*3/uL Absolute Neuts (auto) (2.0-8.3) X10*3/uL Absolute Nucleated RBC (0.0-0.012) X10*3/uL Nucleated RBC % (auto) (0.0-0.2) /100WBC PT 11.8 (9.9-13.0) SEC INR 1.0 (0.9-1.1) APTT 33.0 (24.1-38.0) SEC Sodium (135-145) mmol/L Potassium (3.3-5.1) mmol/L Chloride (96-108) mmol/L Carbon Dioxide (22-29) mmol/L Anion Gap (12-20) BUN (9-16) mg/dL Creatinine (0.5-1.4) mg/dL Estim Creat Clear Calc Estimated GFR Random Glucose (60-115) mg/dL Calcium (8.4-10.2) mg/dL Troponin I High Sens 4.9 (<3.5-35.0) ng/L <Jennifer Cruz MD - Last Filed: 06/03/21 03:31> ECG Data ECG #1: Attestation: I personally reviewed and interpreted this ECG as follows: <Dorian Mathews MD - Last Filed: 06/03/21 01:36> Interpretation: Normal sinus rhythm heart rate 67 beats per minute left anterior fascicular block left axis deviation no acute ST T wave changes no change from EKG on 03/26/21 <Dorian Mathews MD - Last Filed: 06/03/21 01:36> Discharge Plan Discharge Clinical Impression: Chest pain Qualifiers: Chest pain type: precordial pain Qualified Code(s): R07.2 - Precordial pain <Dorian Mathews MD - Last Filed: 06/03/21 01:36> Patient Disposition: Home, Self-Care <Dorian Mathews MD - Last Filed: 06/03/21 01:36> Instructions: Chest Pain (ED) <Dorian Mathews MD - Last Filed: 06/03/21 01:36> Additional Instructions: Continue your medications Follow-up with your PCP for further evaluation including stress test Report to the ER if chest pain gets worse <Dorian Mathews MD - Last Filed: 06/03/21 01:36> Prescriptions: No Action sucralfate 1 gram tablet 1 g PO BID 30 Days Qty: 60 RF: 3 omeprazole 20 mg capsule,delayed release(DR/EC) 20 mg PO DAILY 90 Days Qty: 90 RF: 1 oxybutynin chloride 5 mg tablet extended release 24hr 5 mg PO DAILY 90 Days Qty: 90 RF: 1 latanoprost 0.005 % drops 1 drp ophthalmic (eye) BEDTIME RF: 0 atorvastatin 40 mg tablet 40 mg PO BEDTIME RF: 0 olanzapine [Zyprexa] 5 mg tablet 5 mg PO BEDTIME RF: 0 glipizide 5 mg tablet extended release 24hr 5 mg PO DAILY RF: 0 trazodone 100 mg tablet 100 mg PO BEDTIME PRN (Reason: Insomnia) RF: 0 amlodipine 10 mg tablet 10 mg PO BEDTIME RF: 0 metformin 1,000 mg tablet 1,000 mg PO BID RF: 0 dorzolamide-timolol 22.3-6.8 mg/mL drops 1 drp ophthalmic (eye) BID RF: 0 Flovent HFA 110 mcg/actuation HFA aerosol inhaler 1 puff PO BID PRN (Reason: Wheezing) RF: 0 Dry Eye Relief 1-0.2-0.2 % drops 1 drp ophthalmic (eye) QID RF: 0 Levemir U-100 Insulin 100 unit/mL solution 76 unit subcut BEDTIME RF: 0 Fish Oil 340-1,000 mg capsule 1 cap PO TID RF: 0 ferrous sulfate 15 mg iron (75 mg)/mL drops 2 ml PO DAILY RF: 0 Certavite-Antioxidant 18-400 mg-mcg tablet 1 tab PO DAILY RF: 0 trazodone 150 mg tablet 300 tab PO BEDTIME RF: 0 aspirin 81 mg tablet,delayed release (DR/EC) 81 mg PO DAILY RF: 0 loratadine 10 mg capsule 10 mg PO DAILY RF: 0 zolpidem 5 mg tablet 5 mg PO BEDTIME PRN (Reason: Insomnia) RF: 0 lisinopril 40 mg tablet 40 mg PO DAILY RF: 0 ziprasidone HCl 40 mg capsule 40 mg PO BID RF: 0 diphenhydramine HCl [Allergy (diphenhydramine)] 25 mg capsule 25 mg PO BEDTIME RF: 0 metoprolol succinate 25 mg tablet extended release 24 hr 25 mg PO DAILY RF: 0 senna 8.6 mg capsule 8.6 mg PO BEDTIME PRN (Reason: Constipation) RF: 0 buprenorphine-naloxone 8-2 mg film 1 film sublingual BID RF: 0 tamsulosin 0.4 mg capsule 0.4 mg PO BEDTIME 90 Days Qty: 90 RF: 1 <Dorian Mathews MD - Last Filed: 06/03/21 01:36>
[2021-06-03 00:51] LABS: MANUAL DIFF FLAG NO
[2021-06-03] MEDS: Nitroglycerin 2 % Oint 1 GM Packet 0.5 INCH TRANSDERMA (00:52)
[2021-06-03] MEDS: Aspirin 81 MG TAB.CHEW 162 MG PO (00:52)
[2021-06-03] MEDS: Morphine Sulfate 4 MG/ML CARTRIDGE IVPUSH (00:53)
[2021-06-03 00:54] LABS: Basophils Absolute Auto 0.1 X10*3/uL (0.0-0.2); Basophils Percent Auto 0.4 % (0-2); Eosinophils Absolute Auto 0.2 X10*3/uL (0.0-0.4); Eosinophils Percent Auto 1.5 % (0-4); Hematocrit 37.8 % (42-52); Hemoglobin 12.9 g/dl (14.0-18.0); Imm Gran Abs Auto 0.06 X10*3/uL (0.00-0.03); Imm Gran Pct Auto 0.5 % (0.0-0.4); Lymphocytes Percent Auto 22.9 % (20-40); Mean Corpuscular HGB Conc 34.1 g/dl (31.0-36.0); Mean Corpuscular Hemoglobin 30.9 pg (27.0-33.0); Mean Corpuscular Volume 90.4 fL (80-98); Mean Platelet Volume 9.9 fL (9.4-12.4); Monocytes Percent Auto 7.5 % (2-11); Neutrophils Absolute Auto 8.9 X10*3/uL (2.0-8.3); Neutrophils Percent Auto 67.2 % (45-73); Platelet Count 299 X10*3/uL (160-400); Red Blood Count 4.18 X10*6/uL (4.60-5.80); Red Cell Distribution Width 11.9 % (11.0-16.0); White Blood Count 13.3 X10*3/uL (4.8-10.8)
[2021-06-03] MEDS: ondansetron HCL 4 MG/2 ML VIAL IVPUSH (00:55)
[2021-06-03 01:00] LABS: Prothrombin Time 11.8 SEC (9.9-13.0)
[2021-06-03 01:07] LABS: Anion Gap 12 (12-20); Blood Urea Nitrogen 15 mg/dL (9-16); Calcium 9.5 mg/dL (8.4-10.2); Carbon Dioxide 31 mmol/L (22-29); Chloride 100 mmol/L (96-108); Estimated Glomerular Filt Rate > 60; Glucose Random 226 mg/dL (60-115); Potassium 4.2 mmol/L (3.3-5.1); Sodium 139 mmol/L (135-145)
[2021-06-03 01:14] LABS: Troponin-I High Sensitivity 6.1 ng/L (<3.5-35.0)
[2021-06-03 03:15] LABS: Troponin-I High Sensitivity 4.9 ng/L (<3.5-35.0)
== END 2021-06-03 03:57 | disposition home or self-care (01) ==
PROVIDERS: Emergency Provider Internal Medicine
DX: R07.2 Precordial pain (principal); J44.9 Chronic obstructive pulmonary disease, unspecified; K21.9 Gastro-esophageal reflux disease without esophagitis; Z79.899 Other long term (current) drug therapy; Z79.82 Long term (current) use of aspirin
CPT/HCPCS: 36415; 71045; 80048; 84484; 85025; 85610; 85730; 93005; 96374; 96375; 99284; J2270; J2405

== ENCOUNTER 2021-06-05 17:38 | Emergency (ER) | payer MEDICARE, SELFPAY ==
--- NOTE | ~2021-06-05 | XR_ITS ---
EXAMINATION: CHEST 2 VIEWS CLINICAL INFORMATION: cp . COMPARISON: 06/03/2021. TECHNIQUE: PA and lateral views of the chest obtained. FINDINGS: The lungs are well expanded. No focal infiltrate, effusion, edema, or pneumothorax. Cardiac and mediastinal silhouettes are within normal limits for technique. No acute bony abnormality seen XR/XR chest 2V IMPRESSION: No evidence of acute disease
--- NOTE | 2021-06-05 17:43 | ECG_ITS ---
Test Reason : CHEST PAIN Blood Pressure : / mmHG Vent. Rate : 065 BPM Atrial Rate : 065 BPM P-R Int : 190 ms QRS Dur : 116 ms QT Int : 416 ms P-R-T Axes : 056 -65 044 degrees QTc Int : 432 ms Normal sinus rhythm Incomplete right bundle branch block Left anterior fascicular block Abnormal ECG When compared with ECG of 03-JUN-2021 00:03, No significant change was found Referred By: Generic ED Physician Electronically Signed By:KONRAD HOLCOMB MD
[2021-06-05 18:08] LABS: MANUAL DIFF FLAG NO
[2021-06-05 18:17] LABS: Basophils Percent Auto 0.3 % (0-2); Eosinophils Absolute Auto 0.2 X10*3/uL (0.0-0.4); Eosinophils Percent Auto 1.3 % (0-4); Hematocrit 38.2 % (42-52); Imm Gran Abs Auto 0.06 X10*3/uL (0.00-0.03); Imm Gran Pct Auto 0.4 % (0.0-0.4); Lymphocytes Absolute Auto 2.8 X10*3/uL (1.2-4.9); Lymphocytes Percent Auto 20.1 % (20-40); Mean Corpuscular Hemoglobin 30.7 pg (27.0-33.0); Mean Corpuscular Volume 90.3 fL (80-98); Monocytes Absolute Auto 0.9 X10*3/uL (0.1-1.2); Neutrophils Absolute Auto 10.1 X10*3/uL (2.0-8.3); Neutrophils Percent Auto 71.9 % (45-73); Platelet Count 298 X10*3/uL (160-400); Red Blood Count 4.23 X10*6/uL (4.60-5.80); Red Cell Distribution Width 12.1 % (11.0-16.0); White Blood Count 14.1 X10*3/uL (4.8-10.8)
[2021-06-05 18:26] LABS: Alanine Aminotransferase 26 U/L (0-40); Albumin Level 4.2 g/dL (3.5-5.0); Alkaline Phosphatase 85 U/L (39-117); Anion Gap 14 (12-20); Aspartate Amino Transferase 31 U/L (5-37); Bilirubin Total 0.3 mg/dL (0.0-1.0); Blood Urea Nitrogen 21 mg/dL (9-16); Calcium 9.8 mg/dL (8.4-10.2); Carbon Dioxide 28 mmol/L (22-29); Chloride 103 mmol/L (96-108); Estimated Glomerular Filt Rate > 60; Glucose Random 158 mg/dL (60-115); Sodium 141 mmol/L (135-145); Total Protein 6.7 g/dL (6.5-8.0)
[2021-06-05 18:30] LABS: Troponin-I High Sensitivity 5.2 ng/L (<3.5-35.0)
[2021-06-05 18:37] VITALS: BP 109/70; PULSE 65; RESP 18; TEMP 36.6; O2SAT 98; BMI 27.8
== END 2021-06-05 21:16 | disposition left against medical advice (07) ==
PROVIDERS: Emergency Provider Emergency Medicine; PCP Internal Medicine
DX: R07.9 Chest pain, unspecified (principal)
CPT/HCPCS: 36415; 71046; 80053; 84484; 85025; 93005; 99282; 99283

== ENCOUNTER 2021-06-19 11:17 | Emergency (ER) | payer MEDICARE, SELFPAY ==
--- NOTE | 2021-06-19 | ECG_ITS ---
Test Reason : CHEST PAIN Blood Pressure : / mmHG Vent. Rate : 079 BPM Atrial Rate : 079 BPM P-R Int : 178 ms QRS Dur : 118 ms QT Int : 428 ms P-R-T Axes : 064 -76 070 degrees QTc Int : 490 ms Normal sinus rhythm Incomplete right bundle branch block Left anterior fascicular block Minimal voltage criteria for LVH, may be normal variant ( Melber product ) Abnormal ECG When compared with ECG of 05-JUN-2021 17:56, No significant changes seen Referred By: Generic ED Physician Electronically Signed By:KONRAD HOLCOMB MD
--- NOTE | ~2021-06-19 | CT_ITS ---
EXAMINATION: CT ABDOMEN AND PELVIS WITH CONTRAST CLINICAL INFORMATION: Lower abdominal pain with diarrhea COMPARISON: March 26, 2021 and June 13, 2019 TECHNIQUE: Multidetector volumetric images were obtained from the superior aspect of the liver through the pubic symphysis following administration 85 mL of Omnipaque 350 intravenous contrast. Sagittal and coronal reformatted images were obtained on the technologist's workstation. Oral contrast: No This CT examination was performed using dose optimization techniques as appropriate, variously including the following: *Automated exposure control *Adjustment of mA and/or kV according to patient size (this includes techniques or standardized protocols for targeted exams where dose is matched to indication/reason for exam; i.e. extremities or head) *Use of iterative reconstruction technique DLP: 570.35 mGy-cm FINDINGS: LUNG BASES: The visualized lung bases are unremarkable. Calcified granulomas seen along the anterior pleural surface right middle lobe. No pleural or pericardial effusion. LIVER, GALLBLADDER, AND BILIARY TREE: The liver is normal in size, shape, and attenuation. No focal hepatic lesion or biliary ductal dilatation is present. The gallbladder is unremarkable with no evidence of radiopaque gallstones, gallbladder wall thickening, or obvious pericholecystic inflammatory changes. PANCREAS: Unremarkable. SPLEEN: Unremarkable. ADRENAL GLANDS: Right adrenal gland: 2 mL noted right adrenal gland mass containing some calcifications again seen measuring 5.6 x 3.6 cm in size. Left adrenal gland: Soft tissue mass again seen measuring 3.7 x 2.4 cm in size. KIDNEYS AND URETERS: The kidneys are normal in size, shape, and attenuation. No hydronephrosis, hydroureter, or calculi seen. No perinephric stranding. There is a 1.7 cm left renal cyst present. BLADDER: There appears be a 1.1 cm right posterior diverticulum. GASTROINTESTINAL TRACT: There is a small hiatal hernia present. No free air or free fluid appreciated. There is prominence of the duodenum with the first portion having an air-fluid level and measuring approximately 4.7 cm in diameter. There is also prominence of the third portion of the duodenum and there appears to be some mild fat stranding about the loops of bowel as well as mesentery. There are some adjacent loops of small bowel about the left upper quadrant making it difficult to evaluate specific loops. No prominence of loops of bowel distal to this region of loops of small bowel are identified with probable transition point within the left upper quadrant. There is sigmoid diverticulosis without evidence of acute diverticulitis. The appendix is visualized and contains some high density material within its lumen which may be related to appendicoliths. The appendix measures approximately 8 mm in diameter however no inflammatory streaking to suggest acute appendicitis is identified. No periappendiceal fluid collection. ABDOMINAL WALL: No significant hernia is appreciated. LYMPH NODES: There are nonenlarged right iliac chain lymph nodes present. Nonenlarged mesenteric lymph nodes are seen. VASCULAR: Portal vein patent. Visceral vessels appear patent. No abdominal aortic aneurysm. PELVIC VISCERA: Unremarkable. OSSEOUS STRUCTURES: No suspicious destructive bony lesions identified. There is multilevel degenerative facet arthropathy seen as well as degenerative change of the sacroiliac joints bilaterally. CT/CT abdomen pelvis w con IMPRESSION: Prominence of the duodenum with some mild irregularity of the wall with appearance of minimal fat stranding. There is a transition in size of small bowel within a group of bowel loops within the left upper quadrant. No definite abnormal collection is identified. Possible inflammatory change involving the duodenum and proximal jejunum. Stable bilateral adrenal gland masses. Prominent appendix but without adjacent inflammatory change to suggest acute appendicitis.
--- NOTE | ~2021-06-19 | XR_ITS ---
EXAMINATION: XR CHEST CLINICAL INFORMATION: Left-sided chest pain COMPARISON: June 05, 2021 and June 03, 2021 TECHNIQUE: AP portable view of the chest was obtained. FINDINGS: There is no evidence of acute parenchymal disease, pneumothorax, or pleural effusion. Heart normal size. No evidence of pulmonary edema. XR/XR chest 1V IMPRESSION: No acute disease.
--- NOTE | ~2021-06-19 | CT_ITS ---
EXAMINATION: CT ANGIOGRAM OF THE CHEST WITH AND WITHOUT CONTRAST (CT PULMONARY ANGIOGRAM FOR PE) CLINICAL INFORMATION: Clinical suspicion for PE or pneumonia. COMPARISON: CT chest noncontrast 03/26/2021 TECHNIQUE: Prior to contrast administration, noncontrast localization images were obtained. Subsequently, multidetector volumetric imaging was performed from the thoracic inlet to below the diaphragms following the administration of 65 mL Omnipaque 350 intravenous contrast. Sagittal, coronal, and MIP oblique sagittal reformatted images were obtained on the CT workstation, uploaded to PACS, and reviewed. CT abdomen and pelvis also performed, described in separate report. This CT examination was performed using dose optimization techniques as appropriate, variously including the following: *Automated exposure control *Adjustment of mA and/or kV according to patient size (this includes techniques or standardized protocols for targeted exams where dose is matched to indication/reason for exam; i.e. extremities or head) *Use of iterative reconstruction technique Total exam dose-length product 375 mGy-cm FINDINGS: QUALITY OF STUDY/CONTRAST BOLUS: Suboptimal. PULMONARY ARTERIES: No central or segmental pulmonary emboli are demonstrated. THORACIC AORTA: No aneurysm or dissection. LUNG: The central airways are clear and there is no endobronchial lesion or bronchiectasis. There are some scattered wall groundglass opacities in the anterior right upper lobe new from prior CT 03/26/2021 (series 9, images 99-127). There is no lobar or segmental airspace consolidation. Incidental intramammary node is seen along the upper left oblique fissure similar to prior exam (series 9/222). PLEURA: No pleural effusion or pneumothorax. MEDIASTINUM: Normal heart size. No pericardial effusion. No hilar or mediastinal lymphadenopathy. No evidence of septal bowing or right heart strain. CHEST WALL/AXILLA: No axillary or internal mammary lymphadenopathy. OSSEOUS STRUCTURES: No acute or suspicious osseous abnormality. UPPER ABDOMEN: CT abdomen described in separate report. No reflux of contrast into the hepatic veins to suggest elevated right heart pressures. CT/CT angio chest PE protocol IMPRESSION: 1. Suboptimal enhancement pulmonary arteries. No central or segmental pulmonary emboli demonstrated. No right ventricular strain.' 2. There are some scattered groundglass opacities anterior right upper lobe, new from prior CT 03/26/2021. No lobar or segmental airspace consolidation. VTE: negative
[2021-06-19 11:28] VITALS: BP 183/88; PULSE 75; RESP 20; TEMP 36.8; O2SAT 96; BMI 31.3
--- NOTE | 2021-06-19 12:11 | ED_ITS ---
HPI - Chest Pain General Chief Complaint: Chest Pain Stated Complaint: chest pain/NVD Time Seen by Provider: 06/19/21 13:31 Source: patient Mode of arrival: ambulatory Limitations: no limitations History of Present Illness HPI narrative: Patient with past medical history of TENA, rhabdomyolysis, anemia, GERD history failure in the past, presents to ED for multiple complaints. Patient states he woke up this morning with lower abdominal pain, 3 episodes of diarrhea, nausea, vomiting, chest pain, chills, subjective fever, and shortness of breath. Patient states he has been vaccinated against the COVID virus. Carlitos randolph states Camilo around him is sick. Related Data Home Medications Medication Instructions Recorded Confirmed aspirin 81 mg tablet,delayed 81 mg PO DAILY 06/06/20 03/26/21 release diphenhydramine HCl 25 mg capsule 25 mg PO BEDTIME 06/06/20 03/26/21 (Allergy (diphenhydramine)) lisinopril 40 mg tablet 40 mg PO DAILY 06/06/20 03/26/21 loratadine 10 mg capsule 10 mg PO DAILY 06/06/20 03/26/21 metoprolol succinate 25 mg 25 mg PO DAILY 06/06/20 03/26/21 tablet,extended release 24 hr sennosides 8.6 mg capsule (senna) 8.6 mg PO BEDTIME PRN 06/06/20 03/26/21 ziprasidone HCl 40 mg capsule 40 mg PO BID 06/06/20 03/26/21 zolpidem 5 mg tablet 5 mg PO BEDTIME PRN 06/06/20 03/26/21 buprenorphine 8 mg-naloxone 2 mg 1 film SUBLINGUAL BID 12/06/20 03/26/21 sublingual film amlodipine 10 mg tablet 10 mg PO BEDTIME 03/26/21 03/26/21 atorvastatin 40 mg tablet 40 mg PO BEDTIME 03/26/21 03/26/21 dorzolamide 22.3 mg-timolol 6.8 1 drp OPHTHALMIC (EYE) BID 03/26/21 03/26/21 mg/mL eye drops ferrous sulfate 15 mg iron (75 2 ml PO DAILY 03/26/21 03/26/21 mg)/mL oral drops fluticasone propionate 110 1 puff PO BID PRN 03/26/21 03/26/21 mcg/actuation HFA aerosol inhaler (Flovent HFA) glipizide 5 mg tablet, extended 5 mg PO DAILY 03/26/21 03/26/21 release 24 hr insulin detemir U-100 100 unit/mL 76 unit SUBCUT BEDTIME 03/26/21 03/26/21 subcutaneous solution (Levemir U-100 Insulin) latanoprost 0.005 % eye drops 1 drp OPHTHALMIC (EYE) BEDTIME 03/26/21 03/26/21 metformin 1,000 mg tablet 1,000 mg PO BID 03/26/21 03/26/21 multivitamin-ferrous 1 tab PO DAILY 03/26/21 03/26/21 fumarate-folic acid 18 mg-400 mcg tablet (Certavite-Antioxidant) olanzapine 5 mg tablet (Zyprexa) 5 mg PO BEDTIME 03/26/21 03/26/21 omega-3 fatty acids-fish oil 340 1 cap PO TID 03/26/21 03/26/21 mg-1,000 mg capsule (Fish Oil) peg [id number] 1 1 drp OPHTHALMIC (EYE) QID 03/26/21 03/26/21 %-0.2 %-0.2 % eye drops (Dry Eye Relief) trazodone 100 mg tablet 100 mg PO BEDTIME PRN 03/26/21 03/26/21 trazodone 150 mg tablet 300 tab PO BEDTIME 03/26/21 03/26/21 Previous Rx's Medication Instructions Recorded sucralfate 1 gram tablet 1 g PO BID 30 Days #60 tab 09/12/20 tamsulosin 0.4 mg capsule 0.4 mg PO BEDTIME 90 Days #90 cap 12/06/20 omeprazole 20 mg capsule,delayed 20 mg PO DAILY 90 Days #90 cap 03/24/21 release oxybutynin chloride 5 mg 5 mg PO DAILY 90 Days #90 tab 05/12/21 tablet,extended release 24 hr amoxicillin 875 mg-potassium 1 tab PO BID 10 Days #20 tab 06/19/21 clavulanate 125 mg tablet (Augmentin) doxycycline hyclate 100 mg capsule 100 mg PO BID 7 Days #14 cap 06/19/21 Allergies Allergy/AdvReac Type Severity Reaction Status Date / Time Latex Exam Gloves Allergy Unknown rash Uncoded 06/05/21 18:37 Review of Systems Review of Systems: Yes all other systems are reviewed and are negative Constitutional: Constitutional: Reports as per HPI, Reports no additional constitutional complaints, Reports chills and Reports fever(s) Eyes: Eyes: Reports as per HPI and Reports no additional eye complaints Cardiovascular: Cardiovascular: Reports as per HPI, Reports no additional cardiovascular complaints, Reports chest pain and Reports dyspnea Respiratory: Respiratory: Reports as per HPI, Reports no additional respiratory complaints and Reports dyspnea Gastrointestinal: Gastrointestinal: Reports as per HPI, Reports no additional gastrointestinal complaints, Reports abdominal pain, Reports diarrhea, Reports nausea and Reports vomiting Musculoskeletal: Musculoskeletal: Reports no additional musculoskeletal complaints and Reports as per HPI Neurologic: Reports system reviewed and no additional complaints, except as documented and Reports as per HPI Psychiatric: Psychiatric: Reports no additional psychiatric complaints and Reports as per HPI [facility] Past Medical History Medical History Anxiety CAD (coronary artery disease) Chronic constipation COPD (chronic obstructive pulmonary disease) Diabetes mellitus Genital herpes GERD (gastroesophageal reflux disease) History of adenomatous polyp of colon Hypertension Opioid dependence on agonist therapy JAUN (obstructive sleep apnea) Pancreatic abnormality Prepatellar bursitis, left knee Surgical History No history of previous surgery Family History Family History Mother No problems noted. Father Liver cancer Social History Social History Alcohol intake: never Patient Tobacco Use Status: Current someday Tobacco user Use of substances other than those prescribed or required for medical reasons: Refusing to respond Advance Directives: No service: No Current occupational status: retired and disabled Current occupation: right handed Physical Exam Vital Signs: Vital Signs: Last Vital Signs Temp 98.1 F 06/19/21 17:36 Pulse 76 06/19/21 17:36 Resp 22 H 06/19/21 17:36 BP 141/67 H 06/19/21 17:36 Pulse Ox 94 06/19/21 17:36 Body Mass Index 31.3 Const: General: cooperative, healthy appearing, comfortable, no acute distress, well developed, alert and awake Orientation/consciousness: patient oriented x3 HENMT: Head: Yes normal to inspection, Yes No palpable skull fracture present, Yes normocephalic, Yes atraumatic and No abrasion Eyes: General: appearance normal, both eyes and all related structures Neck: Neck: Yes normal visual inspection, Yes full ROM, Yes no lymphadenopathy, Yes no meningeal signs, Yes trachea midline, Yes supple and No tender Chest: Chest palpation & inspection: normal inspection of the chest and normal palpation of entire chest wall Resp: Effort & Inspection: normal respiratory effort and able to speak in complete sentences Auscultation: clear to auscultation bilaterally Cardio: Jugular venous distension: no JVD Heart sounds: S1 normal heart flakita nd present and S2 normal heart sound present GI: Inspection: Yes normal to inspection and No abdominal wall ecchymosis Palpation (GI): Soft to palpation, not firm, Tenderness to palpation present (GI) in the LLQ and in the RLQ, no guarding and not rigid : General: No CVA tenderness and Yes no CVA tenderness Back/Spine/Pelvis: Back: no CVA tenderness, No CVA tenderness and No ecchymosis Skin: General skin exam: no rashes or lesions noted and elasticity normal Neuro: General: patient oriented x3, gait normal, no meningeal signs and CN's II-XI intact bilaterally Cranial nerves: Yes CN's II-XII intact bilaterally Extrem: General: Yes normal to inspection and Yes full ROM Psych: Appearance: grossly normal, well kempt and not disheveled Course Course Course Narrative: Symptoms indicate more viral syndrome with 2 sores COVID swab. Due to cardiac history will do cardiac evaluation also. History physical exam indicate more viral syndrome. Reevaluation(s) Reevaluation #1: EKG normal sinus rhythm. EKG negative STEMI. Patient's troponin is negative. Patient was sent for chest CT and abdominal CT to make sure there was no abdominal cause for abdominal pain and diarrhea. Patient has history of elevated D-dimer so patient was sent for chest CTA did make sure does no PE or COVID pneumonia even though COVID swab is negative. Patient alert oriented x3. Vital signs stable. Patient refused to give urine. Chest CT shows new sfmft-emdffydptgt-dehny opacity patient will be treated as pneumonia. Patient not any distress. Patient is not having a heart attack, CHF, or PE. Negative for any acute abdominal etiology except for the dueodnal inflammation which could be contributed to his GERD.RSV negative. Time: 18:34 Reevaluation #2: Patient eloped from the ER before I could discuss results and plan and before he could receive discharge papers. Nurse informed me the patient walked out. Time: 18:37 MDM - Chest Pain MDM Narrative Medical decision making narrative: Pneumonia. Lab Data Result diagrams: 06/19/21 13:00 06/19/21 13:25 Labs: Lab Results 06/19/21 06/19/21 06/19/21 Range/Units 13:00 13:00 13:25 WBC 14.2 H (4.8-10.8) X10*3/uL RBC 4.95 (4.60-5.80) X10*6/uL Hgb 15.0 (14.0-18.0) g/dl Hct 43.2 (42-52) % MCV 87.3 (80-98) fL MCH 30.3 (27.0-33.0) pg MCHC 34.7 (31.0-36.0) g/dl RDW 11.9 (11.0-16.0) % Plt Count 309 (160-400) X10*3/uL MPV 9.8 (9.4-12.4) fL Immature Gran % (Auto) 0.4 (0.0-0.4) % Neut % (Auto) 87.1 H (45-73) % Lymph % (Auto) 10.0 L (20-40) % [place] % (Auto) 2.3 (2-11) % Eos % (Auto) 0.1 (0-4) % Baso % (Auto) 0.1 (0-2) % Lymph # (Auto) 1.4 (1.2-4.9) X10*3/uL [place] # (Auto) 0.3 (0.1-1.2) X10*3/uL Eos # (Auto) 0.0 (0.0-0.4) X10*3/uL Baso # (Auto) 0.0 (0.0-0.2) X10*3/uL Abs Immat Gran (auto) 0.05 H (0.00-0.03) X10*3/uL Absolute Neuts (auto) 12.4 H (2.0-8.3) X10*3/uL Absolute Nucleated RBC 0.000 (0.0-0.012) X10*3/uL Nucleated RBC % (auto) 0.0 (0.0-0.2) /100WBC PT 12.8 (9.9-13.0) SEC INR 1.1 (0.9-1.1) APTT 31.9 (24.1-38.0) SEC Sodium (135-145) mmol/L Potassium (3.3-5.1) mmol/L Chloride (96-108) mmol/L Carbon Dioxide (22-29) mmol/L Anion Gap (12-20) BUN (9-16) mg/dL Creatinine (0.5-1.4) mg/dL Estim Creat Clear Calc Estimated GFR Random Glucose (60-115) mg/dL Calcium (8.4-10.2) mg/dL Ferritin (20-250) ng/mL Total Bilirubin (0.0-1.0) mg/dL AST (5-37) U/L ALT (0-40) U/L Alkaline Phosphatase (39-117) U/L Lactate Dehydrogenase (118-273) U/L Troponin I High Sens 5.8 (<3.5-35.0) ng/L B-Natriuretic Peptide < 10 (<100) pg/mL Total Protein (6.5-8.0) g/dL Albumin (3.5-5.0) g/dL Lipase (8-78) U/L Procalcitonin ng/mL Respiratory Panel Zimmerman Adenovirus (Rapid PCR) B.pert (TEM-PCR) B.parapertussis DNA PCR C. pneumoniae DNA (PCR) Coronavirus (PCR) (Negative) Coronavirus OC43 (PCR) Coronavirus HKU1 (PCR) Coronavirus 229E (PCR) Coronavirus NL63 (PCR) Human Metapneumovir PCR Influenza A (RT-PCR) Influenza Type A (PCR) (Negative) Influenza B (RT-PCR) Influenza Type B (PCR) (Negative) M. pneumoniae (PCR) Parainfluenza 1 (PCR) Parainfluenza 2 (PCR) Parainfluenza 3 (PCR) Parainfluenza 4 (PCR) RSV (PCR) RSV RNA Qual (PCR) (Negative) Entero/Rhino (PCR) SARS-CoV-2 RNA (RT-PCR) 06/19/21 06/19/21 06/19/21 Range/Units 13:25 13:25 13:25 WBC (4.8-10.8) X10*3/uL RBC (4.60-5.80) X10*6/uL Hgb (14.0-18.0) g/dl Hct (42-52) % MCV (80-98) fL MCH (27.0-33.0) pg MCHC (31.0-36.0) g/dl RDW (11.0-16.0) % Plt Count (160-400) X10*3/uL MPV (9.4-12.4) fL Immature Gran % (Auto) (0.0-0.4) % Neut % (Auto) (45-73) % Lymph % (Auto) (20-40) % [place] % (Auto) (2-11) % Eos % (Auto) (0-4) % Baso % (Auto) (0-2) % Lymph # (Auto) (1.2-4.9) X10*3/uL [place] # (Auto) (0.1-1.2) X10*3/uL Eos # (Auto) (0.0-0.4) X10*3/uL Baso # (Auto) (0.0-0.2) X10*3/uL Abs Immat Gran (auto) (0.00-0.03) X10*3/uL Absolute Neuts (auto) (2.0-8.3) X10*3/uL Absolute Nucleated RBC (0.0-0.012) X10*3/uL Nucleated RBC % (auto) (0.0-0.2) /100WBC PT (9.9-13.0) SEC INR (0.9-1.1) APTT (24.1-38.0) SEC Sodium 138 (135-145) mmol/L Potassium 3.2 L (3.3-5.1) mmol/L Chloride 100 (96-108) mmol/L Carbon Dioxide 26 (22-29) mmol/L Anion Gap 15 (12-20) BUN 15 (9-16) mg/dL Creatinine 0.79 (0.5-1.4) mg/dL Estim Creat Clear Calc 90.7 Estimated GFR > 60 Random Glucose 222 H D (60-115) mg/dL Calcium 9.9 (8.4-10.2) mg/dL Ferritin 61 (20-250) ng/mL Total Bilirubin 0.7 (0.0-1.0) mg/dL AST 32 (5-37) U/L ALT 29 (0-40) U/L Alkaline Phosphatase 87 (39-117) U/L Lactate Dehydrogenase 180 (118-273) U/L Troponin I High Sens (<3.5-35.0) ng/L B-Natriuretic Peptide (<100) pg/mL Total Protein 7.5 (6.5-8.0) g/dL Albumin 4.6 (3.5-5.0) g/dL Lipase 68 (8-78) U/L Procalcitonin 0.06 ng/mL Respiratory Panel [place] Adenovirus (Rapid PCR) B.pert (TEM-PCR) B.parapertussis DNA PCR C. pneumoniae DNA (PCR) Coronavirus (PCR) NEGATIVE (Negative) Coronavirus OC43 (PCR) Coronavirus HKU1 (PCR) Coronavirus 229E (PCR) Coronavirus NL63 (PCR) Human Metapneumovir PCR Influenza A (RT-PCR) Influenza Type A (PCR) NEGATIVE (Negative) Influenza B (RT-PCR) Influenza Type B (PCR) NEGATIVE (Negative) M. pneumoniae (PCR) Parainfluenza 1 (PCR) Parainfluenza 2 (PCR) Parainfluenza 3 (PCR) Parainfluenza 4 (PCR) RSV (PCR) RSV RNA Qual (PCR) NEGATIVE (Negative) Entero/Rhino (PCR) SARS-CoV-2 RNA (RT-PCR) 06/19/21 06/19/21 Range/Units 13:25 17:31 WBC (4.8-10.8) X10*3/uL RBC (4.60-5.80) X10*6/uL Hgb (14.0-18.0) g/dl Hct (42-52) % MCV (80-98) fL MCH (27.0-33.0) pg MCHC (31.0-36.0) g/dl RDW (11.0-16.0) % Plt Count (160-400) X10*3/uL MPV (9.4-12.4) fL Immature Gran % (Auto) (0.0-0.4) % Neut % (Auto) (45-73) % Lymph % (Auto) (20-40) % [place] % (Auto) (2-11) % Eos % (Auto) (0-4) % Baso % (Auto) (0-2) % Lymph # (Auto) (1.2-4.9) X10*3/uL [place] # (Auto) (0.1-1.2) X10*3/uL Eos # (Auto) (0.0-0.4) X10*3/uL Baso # (Auto) (0.0-0.2) X10*3/uL Abs Immat Gran (auto) (0.00-0.03) X10*3/uL Absolute Neuts (auto) (2.0-8.3) X10*3/uL Absolute Nucleated RBC (0.0-0.012) X10*3/uL Nucleated RBC % (auto) (0.0-0.2) /100WBC PT (9.9-13.0) SEC INR (0.9-1.1) APTT (24.1-38.0) SEC Sodium (135-145) mmol/L Potassium (3.3-5.1) mmol/L Chloride (96-108) mmol/L Carbon Dioxide (22-29) mmol/L Anion Gap (12-20) BUN (9-16) mg/dL Creatinine (0.5-1.4) mg/dL Estim Creat Clear Calc Estimated GFR Random Glucose (60-115) mg/dL Calcium (8.4-10.2) mg/dL Ferritin (20-250) ng/mL Total Bilirubin (0.0-1.0) mg/dL AST (5-37) U/L ALT (0-40) U/L Alkaline Phosphatase (39-117) U/L Lactate Dehydrogenase (118-273) U/L Troponin I High Sens 7.1 (<3.5-35.0) ng/L B-Natriuretic Peptide (<100) pg/mL Total Protein (6.5-8.0) g/dL Albumin (3.5-5.0) g/dL Lipase (8-78) U/L Procalcitonin ng/mL Respiratory Panel Zimmerman Cancelled Adenovirus (Rapid PCR) Cancelled B.pert (TEM-PCR) Cancelled B.parapertussis DNA PCR Cancelled C. pneumoniae DNA (PCR) Cancelled Coronavirus (PCR) (Negative) Coronavirus OC43 (PCR) Cancelled Coronavirus HKU1 (PCR) Cancelled Coronavirus 229E (PCR) Cancelled Coronavirus NL63 (PCR) Cancelled Human Metapneumovir PCR Cancelled Influenza A (RT-PCR) Cancelled Influenza Type A (PCR) (Negative) Influenza B (RT-PCR) Cancelled Influenza Type B (PCR) (Negative) M. pneumoniae (PCR) Cancelled Parainfluenza 1 (PCR) Cancelled Parainfluenza 2 (PCR) Cancelled Parainfluenza 3 (PCR) Cancelled Parainfluenza 4 (PCR) Cancelled RSV (PCR) Cancelled RSV RNA Qual (PCR) (Negative) Entero/Rhino (PCR) Cancelled SARS-CoV-2 RNA (RT-PCR) Cancelled ECG Data ECG #1: Interpretation: Normal sinus rhythm. Was aggressively 9. Pr interval 178. Care is 118. QTC 490. Incomplete right bundle branch block, left anterior fascicular block. Negative STEMI Discharge Plan Discharge Clinical Impression: Pneumonia, Chronic GERD Patient Disposition: Elopement Instructions: Community Acquired Pneumonia (ED) Prescriptions: New doxycycline hyclate 100 mg capsule 100 mg PO BID 7 Days Qty: 14 RF: 0 amoxicillin-pot clavulanate [Augmentin] 875-125 mg tablet 1 tab PO BID 10 Days Qty: 20 RF: 0 No Action sucralfate 1 gram tablet 1 g PO BID 30 Days Qty: 60 RF: 3 omeprazole 20 mg capsule,delayed release(DR/EC) 20 mg PO DAILY 90 Days Qty: 90 RF: 1 oxybutynin chloride 5 mg tablet extended release 24hr 5 mg PO DAILY 90 Days Qty: 90 RF: 1 latanoprost 0.005 % drops 1 drp ophthalmic (eye) BEDTIME RF: 0 atorvastatin 40 mg tablet 40 mg PO BEDTIME RF: 0 olanzapine [Zyprexa] 5 mg tablet 5 mg PO BEDTIME RF: 0 glipizide 5 mg tablet extended release 24hr 5 mg PO DAILY RF: 0 trazodone 100 mg tablet 100 mg PO BEDTIME PRN (Reason: Insomnia) RF: 0 amlodipine 10 mg tablet 10 mg PO BEDTIME RF: 0 metformin 1,000 mg tablet 1,000 mg PO BID RF: 0 dorzolamide-timolol 22.3-6.8 mg/mL drops 1 drp ophthalmic (eye) BID RF: 0 Flovent HFA 110 mcg/actuation HFA aerosol inhaler 1 puff PO BID PRN (Reason: Wheezing) RF: 0 Dry Eye Relief 1-0.2-0.2 % drops 1 drp ophthalmic (eye) QID RF: 0 Levemir U-100 Insulin 100 unit/mL solution 76 unit subcut BEDTIME RF: 0 Fish Oil 340-1,000 mg capsule 1 cap PO TID RF: 0 ferrous sulfate 15 mg iron (75 mg)/mL drops 2 ml PO DAILY RF: 0 Certavite-Antioxidant 18-400 mg-mcg tablet 1 tab PO DAILY RF: 0 trazodone 150 mg tablet 300 tab PO BEDTIME RF: 0 aspirin 81 mg tablet,delayed release (DR/EC) 81 mg PO DAILY RF: 0 loratadine 10 mg capsule 10 mg PO DAILY RF: 0 zolpidem 5 mg tablet 5 mg PO BEDTIME PRN (Reason: Insomnia) RF: 0 lisinopril 40 mg tablet 40 mg PO DAILY RF: 0 ziprasidone HCl 40 mg capsule 40 mg PO BID RF: 0 diphenhydramine HCl [Allergy (diphenhydramine)] 25 mg capsule 25 mg PO BEDTIME RF: 0 metoprolol succinate 25 mg tablet extended release 24 hr 25 mg PO DAILY RF: 0 senna 8.6 mg capsule 8.6 mg PO BEDTIME PRN (Reason: Constipation) RF: 0 buprenorphine-naloxone 8-2 mg film 1 film sublingual BID RF: 0 tamsulosin 0.4 mg capsule 0.4 mg PO BEDTIME 90 Days Qty: 90 RF: 1 Interventions: ED Discharge Assessment Last Done: 06/19/21 18:31 Discharge Date/Time: 06/19/21 18:31
[2021-06-19] MEDS: 0.9 % Sodium Chloride 1,000 ML 999 ML IV (13:03)
[2021-06-19] MEDS: Metoclopramide HCl 10 MG/2 ML VIAL IVPUSH (13:03)
[2021-06-19] MEDS: Famotidine/PF 20 MG/2 ML VIAL IVPUSH (13:04)
[2021-06-19 13:05] LABS: MANUAL DIFF FLAG NO
[2021-06-19 13:06] LABS: Basophils Percent Auto 0.1 % (0-2); Eosinophils Percent Auto 0.1 % (0-4); Hematocrit 43.2 % (42-52); Imm Gran Abs Auto 0.05 X10*3/uL (0.00-0.03); Imm Gran Pct Auto 0.4 % (0.0-0.4); Lymphocytes Absolute Auto 1.4 X10*3/uL (1.2-4.9); Mean Corpuscular HGB Conc 34.7 g/dl (31.0-36.0); Mean Corpuscular Hemoglobin 30.3 pg (27.0-33.0); Mean Corpuscular Volume 87.3 fL (80-98); Mean Platelet Volume 9.8 fL (9.4-12.4); Monocytes Absolute Auto 0.3 X10*3/uL (0.1-1.2); Monocytes Percent Auto 2.3 % (2-11); Neutrophils Absolute Auto 12.4 X10*3/uL (2.0-8.3); Neutrophils Percent Auto 87.1 % (45-73); Platelet Count 309 X10*3/uL (160-400); Red Blood Count 4.95 X10*6/uL (4.60-5.80); Red Cell Distribution Width 11.9 % (11.0-16.0); White Blood Count 14.2 X10*3/uL (4.8-10.8)
[2021-06-19 13:27] LABS: B Type Natriuretic Peptide < 10 pg/mL (<100); Troponin-I High Sensitivity 5.8 ng/L (<3.5-35.0)
[2021-06-19 13:46] LABS: INTERNATIONAL NORM RATIO 1.1 (0.9-1.1); Prothrombin Time 12.8 SEC (9.9-13.0)
[2021-06-19 13:49] LABS: Partial Thromboplastin Time 31.9 SEC (24.1-38.0)
[2021-06-19 13:50] LABS: Alanine Aminotransferase 29 U/L (0-40); Albumin Level 4.6 g/dL (3.5-5.0); Alkaline Phosphatase 87 U/L (39-117); Anion Gap 15 (12-20); Aspartate Amino Transferase 32 U/L (5-37); Bilirubin Total 0.7 mg/dL (0.0-1.0); Blood Urea Nitrogen 15 mg/dL (9-16); Calcium 9.9 mg/dL (8.4-10.2); Carbon Dioxide 26 mmol/L (22-29); Chloride 100 mmol/L (96-108); Creatinine Clr Calc Pharmacy 90.7; Estimated Glomerular Filt Rate > 60; Glucose Random 222 mg/dL (60-115); Lactate Dehydrogenase 180 U/L (118-273); Lipase 68 U/L (8-78); Potassium 3.2 mmol/L (3.3-5.1); Sodium 138 mmol/L (135-145); Total Protein 7.5 g/dL (6.5-8.0)
[2021-06-19 14:08] LABS: Procalcitonin 0.06 ng/mL
[2021-06-19 14:10] LABS: Ferritin 61 ng/mL (20-250)
[2021-06-19 14:16] LABS: Influenza A PCR NEGATIVE (Negative); Influenza B PCR NEGATIVE (Negative); Resp Syncy Virus RNA Qual PCR NEGATIVE (Negative); SARS COV2 PCR INHOUSE NEGATIVE (Negative)
[2021-06-19] MEDS: iohexoL 350 MG/ML 100 ML INFUS..BTL IV (15:54)
--- NOTE | 2021-06-19 16:35 | PC.NURSE ---
pt calling configuration management administrator delaney frequently, sts sob, 95-97% on ra. asking to leave. provider aware. awaiting ct scan results.
[2021-06-19 17:36] VITALS: BP 141/67; PULSE 76; RESP 22; TEMP 36.7; O2SAT 94
--- NOTE | 2021-06-19 17:37 | PC.NURSE ---
pt asking to leave, educated about need for repeat troponin. labs drawn and iv removed per pt request.
[2021-06-19 17:59] LABS: Troponin-I High Sensitivity 7.1 ng/L (<3.5-35.0)
== END 2021-06-19 18:31 | disposition left against medical advice (07) ==
PROVIDERS: Physician Assistant; Emergency Provider Emergency Medicine
DX: J18.9 Pneumonia, unspecified organism (principal); K21.9 Gastro-esophageal reflux disease without esophagitis; R07.9 Chest pain, unspecified; Z20.822 Contact with and (suspected) exposure to COVID-19; F17.200 Nicotine dependence, unspecified, uncomplicated; Z79.899 Other long term (current) drug therapy; Z71.6 Tobacco abuse counseling
CPT/HCPCS: 0241U; 36415; 71045; 71275; 74177; 80053; 82728; 83615; 83690; 83880; 84145; 84484; 85025; 85610; 85730; 87633; 93005; 96361; 96374; 96375; 99284; 99285; J2765; Q9967

== ENCOUNTER → 2021-06-26 09:43 | Outpatient (BNVA) | payer MEDICARE, SELFPAY | PROVIDERS: Visit Provider Internal Medicine Gastroenterology | DX: Z13.89 Encounter for screening for other disorder (principal) | CPT/HCPCS: 99212 ==

== ENCOUNTER 2021-09-03 11:36 | Outpatient (REF) | payer MEDICARE, SELFPAY ==
--- NOTE | ~2021-09-03 | CT_ITS ---
EXAMINATION: CT CHEST WITHOUT CONTRAST CLINICAL INFORMATION: COPD COMPARISON: None TECHNIQUE: Multidetector volumetric CT imaging of the chest was done. Axial MIP volume rendering provided. Sagittal and coronal reformatted images were obtained. This CT examination was performed using dose optimization techniques as appropriate, variously including the following: *Automated exposure control *Adjustment of mA and/or kV according to patient size (this includes techniques or standardized protocols for targeted exams where dose is matched to indication/reason for exam; i.e. extremities or head) *Use of iterative reconstruction technique DLP: 223 mGy-cm FINDINGS: SPECIALIST PHYSICIANS: Unremarkable LUNGS: There is mild centrilobular emphysematous changes especially in both upper lobes with right apical pleural thickening and apical parenchymal scarring. There is a 5 mm nodule left major fissure axial image 30/10, 2 mm nodule left lower lobe axial image 172/9 and a calcified 7 mm nodule right middle lobe adjacent to the anterior mediastinum axial image 167/9. Previously visualized groundglass in the right upper lobe are not visualized. No consolidation or mass seen. MEDIASTINUM: The heart size and great vessels are normal caliber. There is tiny anterior pericardial effusion. No abnormal size mediastinal lymphadenopathy. Trace coronary artery calcifications present. Central trachea and the bronchi widely patent. The thyroid lobes are symmetrical and normal. PLEURA: There is no pleural effusion. No pleural mass or thickening. AXILLA: No abnormal axillary lymph nodes seen. UPPER ABDOMEN: Visualized liver, spleen, pancreas and bilateral adrenal glands unremarkable. There are bilateral adrenal masses. The right adrenal lesion measures 4.8 x 3.3 x 2.5 cm and 8.306 Hounsfield units suggestive of benign adenoma. The left adrenal lesion measures 4.0 x 1.8 x 2.6 cm and measures 7 Hounsfield units suggestive of benign adenoma. OSSEOUS STRUCTURES: No lytic or sclerotic process seen. CT/CT chest wo con IMPRESSION: Centrilobular emphysema without acute consolidation. There are small scattered pulmonary nodules largest left major fissure 5 mm lymph node is likely a lymph node, stable. Previously seen groundglass density in the upper lobes have resolved. 7 mm calcified nodule right middle lobe is likely granuloma. Fleischner guidelines were followed.
== END 2021-09-03 11:37 | disposition home or self-care (01) ==
LOC: HO.CT 11:36
PROVIDERS: PCP Internal Medicine; Visit Provider Internal Medicine
DX: J44.9 Chronic obstructive pulmonary disease, unspecified (principal); R91.8 Other nonspecific abnormal finding of lung field
CPT/HCPCS: 71250

== ENCOUNTER 2021-09-06 23:41 | Emergency (ER) | payer MEDICARE, SELFPAY ==
--- NOTE | ~2021-09-06 | CT_ITS ---
EXAMINATION: CT HEAD WITHOUT CONTRAST CT CERVICAL SPINE WITHOUT CONTRAST CLINICAL INFORMATION: Fall COMPARISON: 03/26/2021 TECHNIQUE: Multidetector CT imaging of the head and cervical spine was performed without the use of intravenous contrast. Multiplanar reformats are reviewed. This CT examination was performed using dose optimization techniques as appropriate, variously including the following: *Automated exposure control *Adjustment of mA and/or kV according to patient size (this includes techniques or standardized protocols for targeted exams where dose is matched to indication/reason for exam; i.e. extremities or head) *Use of iterative reconstruction technique DLP: 1432 mGy-cm. FINDINGS: There is no evidence of acute intracranial hemorrhage or territorial infarction. No abnormal mass effect or midline shift is seen. Martinez to white matter differentiation is well preserved. No extra-axial fluid collections are identified. The ventricles are normal in size. 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 Moderate chronic white matter small vessel ischemic changes. Cavernous carotid calcifications. The osseous structures and soft tissues are normal. The mastoid air cells and visualized portions of the paranasal sinuses are well-aerated. Atlantooccipital alignment is maintained. The vertebral bodies and posterior elements align normally. No acute fracture or subluxation. Vertebral body heights are maintained.Small endplate osteophytes present at C6-C7. The cervicomedullary junction and spinal cord are grossly unremarkable. The paraspinal soft tissues are unremarkable. The imaged lung apices are clear CT/CT head/brain wo con IMPRESSION: No acute intracranial pathology. No cervical spine fracture or malalignment.
--- NOTE | ~2021-09-06 | CT_ITS ---
EXAMINATION: CT HEAD WITHOUT CONTRAST CT CERVICAL SPINE WITHOUT CONTRAST CLINICAL INFORMATION: Fall COMPARISON: 03/26/2021 TECHNIQUE: Multidetector CT imaging of the head and cervical spine was performed without the use of intravenous contrast. Multiplanar reformats are reviewed. This CT examination was performed using dose optimization techniques as appropriate, variously including the following: *Automated exposure control *Adjustment of mA and/or kV according to patient size (this includes techniques or standardized protocols for targeted exams where dose is matched to indication/reason for exam; i.e. extremities or head) *Use of iterative reconstruction technique DLP: 1432 mGy-cm. FINDINGS: There is no evidence of acute intracranial hemorrhage or territorial infarction. No abnormal mass effect or midline shift is seen. Martinez to white matter differentiation is well preserved. No extra-axial fluid collections are identified. The ventricles are normal in size. 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 Moderate chronic white matter small vessel ischemic changes. Cavernous carotid calcifications. The osseous structures and soft tissues are normal. The mastoid air cells and visualized portions of the paranasal sinuses are well-aerated. Atlantooccipital alignment is maintained. The vertebral bodies and posterior elements align normally. No acute fracture or subluxation. Vertebral body heights are maintained.Small endplate osteophytes present at C6-C7. The cervicomedullary junction and spinal cord are grossly unremarkable. The paraspinal soft tissues are unremarkable. The imaged lung apices are clear CT/CT cervical spine wo con IMPRESSION: No acute intracranial pathology. No cervical spine fracture or malalignment.
--- NOTE | ~2021-09-06 | CT_ITS ---
EXAMINATION CT CHEST, ABDOMEN AND PELVIS WITHOUT CONTRAST CLINICAL INFORMATION: Fall. Question rib fractures and shoulder fracture. Right upper quadrant pain. COMPARISON: CT chest dated 09/03/2021. CT abdomen/pelvis dated 06/19/2012 TECHNIQUE: Multidetector volumetric CT imaging of the chest, abdomen and pelvis was without use of intravenous contrast. Coronal and sagittal reformats were reviewed. This CT examination was performed using dose optimization techniques as appropriate, variously including the following: *Automated exposure control *Adjustment of mA and/or kV according to patient size (this includes techniques or standardized protocols for targeted exams where dose is matched to indication/reason for exam; i.e. extremities or head) *Use of iterative reconstruction technique DLP: 1322 mGy-cm. FINDINGS: CHEST LUNGS/PLEURA: Mild diffuse bronchial wall thickening without bronchiectasis. There are a few stable scattered pulmonary micronodules which are benign. No suspicious pulmonary nodules. No parenchymal consolidation or complication. No pneumothorax. There is no pleural effusion. No pleural mass or thickening. MEDIASTINUM/RADHA: Normal heart size. Triple vessel coronary calcifications. No significant pericardial effusion. No mediastinal or hilar adenopathy. CHEST WALL/AXILLA: Gynecomastia. No axillary lymphadenopathy. ABDOMEN/PELVIS HEPATOBILIARY: Liver normal in size, contour and morphology. No suspicious lesions. No intra or extrahepatic biliary dilation. Gallbladder unremarkable. PANCREAS: Unremarkable. SPLEEN: Unremarkable. ADRENAL GLANDS: Stable bilateral low-density adrenal masses measuring up to 5.4 cm on the right (1 Hounsfield unit) and 3.8 cm on the left (-5 Hounsfield units), compatible with lipid rich adenomas. There are associated coarse calcifications in the right adrenal nodule. KIDNEYS, URETERS AND BLADDER: Kidneys normal in size, axis and morphology demonstrating symmetric enhancement. No hydronephrosis or urinary calculi. Ureters normal in course and caliber. Bladder grossly unremarkable.. GASTROINTESTINAL TRACT: Scattered colonic diverticula. No evidence of diverticulitis. Normal appendix. Stomach and small bowel unremarkable. PELVIC VISCERA: Unremarkable. LYMPH NODES: No lymphadenopathy. PERITONEUM/BODY WALL: Unremarkable. VASCULAR STRUCTURES: Aorta mildly atherosclerotic but normal caliber. OSSEOUS STRUCTURES No acute or suspicious osseous abnormalities. No rib fractures or other acute osseous abnormality. CT/CT abdomen pelvis wo con IMPRESSION: * No evidence of acute traumatic injury within the chest, abdomen and pelvis. * No fractures. * Mild diffuse bronchial wall thickening suggestive of chronic bronchitis. * Triple vessel coronary calcifications. * Stable bilateral adrenal nodules with attenuation diagnostic of a lipid rich adenomas.
[2021-09-07 00:01] VITALS: BP 104/63; PULSE 76; RESP 16; TEMP 37.2; O2SAT 93; BMI 32.5
[2021-09-07] MEDS: Acetaminophen 325 MG TABLET 650 MG PO (02:11)
--- NOTE | 2021-09-07 02:43 | ED.FALL ---
HPI - Fall General Chief Complaint: Fall Stated Complaint: fall on chest Time Seen by Provider: 09/07/21 01:04 Source: patient Mode of arrival: ambulatory Limitations: no limitations History of Present Illness HPI Narrative: Patient presents to ED for mechanical fall. Patient states he was walking outside on ice any slipped and fell onto his right chest and since then has had pain today. Patient denies hitting head or loss of consciousness. Patient states only taking aspirin. Patient denies having any dizziness or headache before falling. Patient denies having chest pain before falling. Patient states he slipped on ice and fell. Patient denies any shortness of breath. Patient states right lower rib/chest pain that hurt on movements of torso and right arm. Patient denies any flank pain, blood in urine. Related Data Home Medications Medication Instructions Recorded Confirmed aspirin 81 mg tablet,delayed 81 mg PO DAILY 06/06/20 06/26/21 release diphenhydramine HCl 25 mg capsule 25 mg PO BEDTIME 06/06/20 06/26/21 (Allergy (diphenhydramine)) lisinopril 40 mg tablet 40 mg PO DAILY 06/06/20 06/26/21 loratadine 10 mg capsule 10 mg PO DAILY 06/06/20 06/26/21 metoprolol succinate 25 mg 25 mg PO DAILY 06/06/20 06/26/21 tablet,extended release 24 hr sennosides 8.6 mg capsule (senna) 8.6 mg PO BEDTIME PRN 06/06/20 06/26/21 ziprasidone HCl 40 mg capsule 40 mg PO BID 06/06/20 06/26/21 zolpidem 5 mg tablet 5 mg PO BEDTIME PRN 06/06/20 06/26/21 buprenorphine 8 mg-naloxone 2 mg 1 film SUBLINGUAL BID 12/06/20 06/26/21 sublingual film amlodipine 10 mg tablet 10 mg PO BEDTIME 03/26/21 06/26/21 atorvastatin 40 mg tablet 40 mg PO BEDTIME 03/26/21 06/26/21 dorzolamide 22.3 mg-timolol 6.8 1 drp OPHTHALMIC (EYE) BID 03/26/21 06/26/21 mg/mL eye drops fluticasone propionate 110 1 puff PO BID PRN 03/26/21 06/26/21 mcg/actuation HFA aerosol inhaler (Flovent HFA) glipizide 5 mg tablet, extended 5 mg PO DAILY 03/26/21 06/26/21 release 24 hr insulin detemir U-100 100 unit/mL 76 unit SUBCUT BEDTIME 03/26/21 06/26/21 subcutaneous solution (Levemir U-100 Insulin) latanoprost 0.005 % eye drops 1 drp OPHTHALMIC (EYE) BEDTIME 03/26/21 06/26/21 metformin 1,000 mg tablet 1,000 mg PO BID 03/26/21 06/26/21 multivitamin-ferrous 1 tab PO DAILY 03/26/21 06/26/21 fumarate-folic acid 18 mg-400 mcg tablet (Certavite-Antioxidant) olanzapine 5 mg tablet (Zyprexa) 5 mg PO BEDTIME 03/26/21 06/26/21 omega-3 fatty acids-fish oil 340 1 cap PO TID 03/26/21 06/26/21 mg-1,000 mg capsule (Fish Oil) peg 400-[id number]-qfizuhcg 1 1 drp OPHTHALMIC (EYE) QID 03/26/21 06/26/21 %-0.2 %-0.2 % eye drops (Dry Eye Relief) trazodone 100 mg tablet 100 mg PO BEDTIME PRN 03/26/21 06/26/21 trazodone 150 mg tablet 300 tab PO BEDTIME 03/26/21 06/26/21 Previous Rx's Medication Instructions Recorded sucralfate 1 gram tablet 1 g PO BID 30 Days #60 tab 09/12/20 omeprazole 20 mg capsule,delayed 20 mg PO DAILY 90 Days #90 cap 03/24/21 release oxybutynin chloride 5 mg 5 mg PO DAILY 90 Days #90 tab 05/12/21 tablet,extended release 24 hr doxycycline hyclate 100 mg capsule 100 mg PO BID 7 Days #14 cap 06/19/21 tamsulosin 0.4 mg capsule 0.4 mg PO BEDTIME 90 Days #90 cap 06/30/21 ferrous sulfate 15 mg iron (75 2 ml PO DAILY 30 Days #60 ml 09/02/21 mg)/mL oral drops Allergies Allergy/AdvReac Type Severity Reaction Status Date / Time Latex Exam Gloves Allergy Unknown rash Uncoded 06/26/21 10:04 Review of Systems Review of Systems: Fall. Right lower rib pain Yes all other systems are reviewed and are negative FOR[facility]LY [facility] Past Medical History Medical History Anxiety CAD (coronary artery disease) Chronic constipation COPD (chronic obstructive pulmonary disease) Diabetes mellitus Genital herpes GERD (gastroesophageal reflux disease) History of adenomatous polyp of colon Hypertension Opioid dependence on agonist therapy JAUN (obstructive sleep apnea) Pancreatic abnormality Prepatellar bursitis, left knee Surgical History No history of previous surgery Family History Family History Mother No problems noted. Father Liver cancer Social History Social History Alcohol intake: never Patient Tobacco Use Status: Current someday Tobacco user Advance Directives: No Advance Directives Information Provided: Yes service: No Current occupational status: retired and disabled Current occupation: right handed Physical Exam Vital Signs: Vital Signs: Last Vital Signs Temp 98.9 F 09/07/21 00:01 Pulse 76 09/07/21 00:01 Resp 16 09/07/21 00:01 BP 104/63 09/07/21 00:01 Pulse Ox 93 09/07/21 00:01 BMI result Body Mass Index 32.5 Const: General: cooperative and healthy appearing Orientation/consciousness: patient oriented x3 HENMT: Head: Yes normal to inspection, Yes No palpable skull fracture present, Yes normocephalic and Yes atraumatic Eyes: General: appearance normal, both eyes and all related structures Neck: Neck: Yes normal visual inspection, Yes full ROM, Yes no lymphadenopathy, Yes no meningeal signs, Yes trachea midline, Yes supple, No anterior neck swelling and No tender Chest: Chest palpation & inspection: normal inspection of the chest and normal palpation of entire chest wall Chest/axillae images: 1. Positive for tenderness on palpation and range of motion of torso and right upper extremity. Negative for any ecchymosis or crepitus. Resp: Effort & Inspection: normal respiratory effort and able to speak in complete sentences Cardio: Jugular venous distension: no JVD Heart sounds: S1 normal heart sound present and S2 normal heart sound present GI: Inspection: Yes normal to inspection and No abdominal wall ecchymosis Palpation (GI): Soft to palpation, not firm, nontender, no guarding and not rigid : General: No CVA tenderness and Yes no CVA tenderness Back/Spine/Pelvis: Back: no CVA tenderness, No CVA tenderness and No back tenderness Skin: General skin exam: no rashes or lesions noted and elasticity normal Neuro: General: patient oriented x3, gait normal, no meningeal signs and CN's II-XI intact bilaterally Cranial nerves: Yes CN's II-XII intact bilaterally Extrem: General: Yes normal to inspection and Yes full ROM Shoulder/upper arm images: 1. Slight tenderness on palpation. Negative for deformity. Negative for any ecchymosis/erythema,. Patient has complete range of motion of right upper extremity including shoulder. Motor/neuro/vascular exam intact of right upper extremity. Negative for any swelling, deformity, red streaks, or bluish black discoloration Psych: Appearance: grossly normal, well kempt and not disheveled Course Course Course Narrative: Mechanical fall. No labs or EKG indicated. Images in urine ordered. Reevaluation(s) Reevaluation #1: Due to patient being on Suboxone Tylenol given for pain and waiting for head CT scan and risks of images. Sign out to Dr. Lemons for follow-up imaging Time: 02:49 MDM - Fall MDM Narrative Medical decision making narrative: Fall Discharge Plan Discharge Clinical Impression: Fall Patient Disposition: Still a Patient Instructions: Fall Prevention (ED) Prescriptions: No Action sucralfate 1 gram tablet 1 g PO BID 30 Days Qty: 60 RF: 3 omeprazole 20 mg capsule,delayed release(DR/EC) 20 mg PO DAILY 90 Days Qty: 90 RF: 1 oxybutynin chloride 5 mg tablet extended release 24hr 5 mg PO DAILY 90 Days Qty: 90 RF: 1 tamsulosin 0.4 mg capsule 0.4 mg PO BEDTIME 90 Days Qty: 90 RF: 0 ferrous sulfate 15 mg iron (75 mg)/mL drops 2 ml PO DAILY 30 Days Qty: 60 RF: 4 latanoprost 0.005 % drops 1 drp ophthalmic (eye) BEDTIME RF: 0 atorvastatin 40 mg tablet 40 mg PO BEDTIME RF: 0 olanzapine [Zyprexa] 5 mg tablet 5 mg PO BEDTIME RF: 0 glipizide 5 mg tablet extended release 24hr 5 mg PO DAILY RF: 0 trazodone 100 mg tablet 100 mg PO BEDTIME PRN (Reason: Insomnia) RF: 0 amlodipine 10 mg tablet 10 mg PO BEDTIME RF: 0 metformin 1,000 mg tablet 1,000 mg PO BID RF: 0 dorzolamide-timolol 22.3-6.8 mg/mL drops 1 drp ophthalmic (eye) BID RF: 0 Flovent HFA 110 mcg/actuation HFA aerosol inhaler 1 puff PO BID PRN (Reason: Wheezing) RF: 0 Dry Eye Relief 1-0.2-0.2 % drops 1 drp ophthalmic (eye) QID RF: 0 Levemir U-100 Insulin 100 unit/mL solution 76 unit subcut BEDTIME RF: 0 Fish Oil 340-1,000 mg capsule 1 cap PO TID RF: 0 Certavite-Antioxidant 18-400 mg-mcg tablet 1 tab PO DAILY RF: 0 trazodone 150 mg tablet 300 tab PO BEDTIME RF: 0 doxycycline hyclate 100 mg capsule 100 mg PO BID 7 Days Qty: 14 RF: 0 aspirin 81 mg tablet,delayed release (DR/EC) 81 mg PO DAILY RF: 0 loratadine 10 mg capsule 10 mg PO DAILY RF: 0 zolpidem 5 mg tablet 5 mg PO BEDTIME PRN (Reason: Insomnia) RF: 0 lisinopril 40 mg tablet 40 mg PO DAILY RF: 0 ziprasidone HCl 40 mg capsule 40 mg PO BID RF: 0 diphenhydramine HCl [Allergy (diphenhydramine)] 25 mg capsule 25 mg PO BEDTIME RF: 0 metoprolol succinate 25 mg tablet extended release 24 hr 25 mg PO DAILY RF: 0 senna 8.6 mg capsule 8.6 mg PO BEDTIME PRN (Reason: Constipation) RF: 0 buprenorphine-naloxone 8-2 mg film 1 film sublingual BID RF: 0
== END 2021-09-07 03:33 | disposition home or self-care (01) ==
PROVIDERS: Emergency Provider Student in an Organized Health Care Education/Training Program
DX: M79.621 Pain in right upper arm (principal); Z91.81 History of falling; I10 Essential (primary) hypertension; E11.9 Type 2 diabetes mellitus without complications; F11.20 Opioid dependence, uncomplicated; F17.200 Nicotine dependence, unspecified, uncomplicated; Z79.4 Long term (current) use of insulin
CPT/HCPCS: 70450; 71250; 72125; 74176; 99284

== ENCOUNTER → 2021-09-11 08:44 | Outpatient (BNVA) | payer MEDICARE, SELFPAY | PROVIDERS: Visit Provider Urology | DX: N40.1 Benign prostatic hyperplasia with lower urinary tract symptoms (principal); N13.8 Other obstructive and reflux uropathy; R39.15 Urgency of urination | CPT/HCPCS: Q3014 ==

== ENCOUNTER 2021-10-02 08:23 | Emergency (ER) | payer OTHER, MEDICARE, SELFPAY ==
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
[2021-10-02 08:30] VITALS: BP 188/96; PULSE 86; RESP 20; TEMP 36.4; O2SAT 95; BMI 31.3
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
[2021-10-02 09:08] LABS: MANUAL DIFF FLAG NO
[2021-10-02 09:11] LABS: Basophils Absolute Auto 0.1 X10*3/uL (0.0-0.2); Basophils Percent Auto 0.7 % (0-2); Eosinophils Absolute Auto 0.2 X10*3/uL (0.0-0.4); Eosinophils Percent Auto 2.6 % (0-4); Hematocrit 38.8 % (42.0-52.0); Hemoglobin 13.2 g/dl (14.0-18.0); Imm Gran Abs Auto 0.03 X10*3/uL (0.00-0.03); Imm Gran Pct Auto 0.4 % (0.0-0.4); Mean Corpuscular Hemoglobin 30.4 pg (27.0-33.0); Mean Corpuscular Volume 89.4 fL (80.0-98.0); Monocytes Absolute Auto 0.6 X10*3/uL (0.1-1.2); Monocytes Percent Auto 7.4 % (2-11); Neutrophils Absolute Auto 5.2 x10*3/uL (2.0-8.3); Neutrophils Percent Auto 63.9 % (45-73); Platelet Count 272 X10*3/uL (160-400); Red Blood Count 4.34 X10*6/uL (4.60-5.80); Red Cell Distribution Width 12.1 % (11.0-16.0); White Blood Count 8.1 X10*3/uL (4.8-10.8)
[2021-10-02 09:22] LABS: Anion Gap 12 (12-20); Blood Urea Nitrogen 13 mg/dL (9-16); Calcium 9.8 mg/dL (8.4-10.2); Carbon Dioxide 29 mmol/L (22-29); Chloride 102 mmol/L (96-108); Creatinine Clr Calc Pharmacy 91.9; Estimated Glomerular Filt Rate > 60; Glucose Random 225 mg/dL (60-115); Potassium 3.8 mmol/L (3.3-5.1); Sodium 139 mmol/L (135-145)
[2021-10-02] MEDS: iohexoL 350 MG/ML 100 ML INFUS..BTL 70 ML IV (10:25)
[2021-10-02] MEDS: Lidocaine 4 % Patch ADH..PATCH 1 PATCH TRANSDERMA (11:18)
[2021-10-02 11:26] VITALS: BP 152/71; PULSE 74; RESP 16; TEMP 36.8; O2SAT 95
[2021-10-02] MEDS: Acetaminophen 325 MG TABLET 650 MG PO (11:56)
--- NOTE | 2021-10-02 11:56 | PC.NURSE ---
pt medicated for pain per order
--- NOTE | 2021-10-02 13:55 | PC.NURSE ---
patient waiting for xray results, was given sandwich and something to drink while waiting, pt is aware there has been a delay with radiology, will continue to monitor.
[2021-10-02 14:02] VITALS: BP 146/85; PULSE 66; RESP 15; TEMP 36.8; O2SAT 98
== END 2021-10-02 14:23 | disposition home or self-care (01) ==
PROVIDERS: Emergency Provider Emergency Medicine; PCP Internal Medicine
DX: S16.1XXA Strain of muscle, fascia and tendon at neck level, initial encounter (principal); S20.211A Contusion of right front wall of thorax, initial encounter; S80.02XA Contusion of left knee, initial encounter; S22.41XA Multiple fractures of ribs, right side, initial encounter for closed fracture; V43.52XA Car driver injured in collision with other type car in traffic accident, initial encounter; Y93.89 Activity, other specified; Y92.410 Unspecified street and highway as the place of occurrence of the external cause; Y99.9 Unspecified external cause status
CPT/HCPCS: 36415; 70496; 70498; 71260; 73564; 80048; 85025; 99284; Q9967

== ENCOUNTER 2021-10-07 10:33 | Outpatient (REF) | payer MEDICARE, SELFPAY ==
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
--- NOTE | ~2021-10-07 | XR_ITS ---
EXAMINATION: XR KNEE, LEFT CLINICAL INFORMATION: Contusion COMPARISON: Previous x-ray most recent 10/02/2021 TECHNIQUE: Four views of the left knee. FINDINGS: Bone alignment is normal. No acute fracture or dislocation is seen. There are 3 or screws seen in the proximal tibia. These appear unchanged. The femoral tibial joints are normal. There are small osteophytes at the patellofemoral joint and quadriceps and patellar tendons. There is soft tissue swelling over the superior anterior knee. There is no joint effusion. XR/XR knee LT 3V IMPRESSION: No acute fracture or dislocation. Postoperative changes to the proximal tibia.. Soft tissue swelling over the superior anterior knee.
== END 2021-10-07 10:34 | disposition home or self-care (01) ==
LOC: HO.US 10:33
PROVIDERS: PCP Internal Medicine; Visit Provider Internal Medicine
DX: S80.02XA Contusion of left knee, initial encounter (principal); R60.0 Localized edema
CPT/HCPCS: 73562; 93971

== ENCOUNTER → 2021-10-23 11:51 | Outpatient (BNVA) | payer MEDICARE, SELFPAY | PROVIDERS: Visit Provider Internal Medicine Gastroenterology | DX: Z13.89 Encounter for screening for other disorder (principal) | CPT/HCPCS: Q3014 ==

== ENCOUNTER 2022-01-25 16:10 | Emergency (ER) | payer OTHER, SELFPAY ==
--- NOTE | ~2022-01-25 | XR_ITS ---
EXAMINATION: XR ANKLE, LEFT CLINICAL INFORMATION: Post reduction. COMPARISON: Radiograph of the left ankle done earlier today at 4:36 PM. TECHNIQUE: AP, lateral, and mortise views of the left ankle. FINDINGS: Overlying casting limits assessment of fine bony details. Redemonstration of comminuted bimalleolar fractures with slight improved alignment, but persistent significant displacement and angulation. The ankle mortise is disrupted. XR/XR ankle LT 2V IMPRESSION: Mildly improved alignment of the bimalleolar fractures which remains nonanatomic.
--- NOTE | ~2022-01-25 | XR_ITS ---
EXAMINATION: XR ANKLE, LEFT CLINICAL INFORMATION: Left ankle pain COMPARISON: . Injury. TECHNIQUE: AP, lateral, and mortise views of the left ankle. FINDINGS: There is a comminuted fracture distal fibula and a medial malleolar displaced fracture. Moderate bimalleolar soft tissue swelling seen. There is small calcaneal heel and retrocalcaneal enthesophytes. XR/XR ankle LT min 3V IMPRESSION: Distal fibular comminuted fracture and displaced medial malleolar fracture with moderate bimalleolar soft tissue swelling. The ankle mortise is disrupted.
--- NOTE | ~2022-01-25 | XR_ITS ---
EXAMINATION: RIGHT CLAVICLE AND RIGHT SHOULDER. CLINICAL INFORMATION: Injury. Pain. COMPARISON: None TECHNIQUE: Right shoulder 3 views. Right clavicle 2 views. FINDINGS: Right clavicle: There is no visible acute fracture or dislocation seen. There is mild reduction AC joint space. The soft tissues are normal. Right shoulder: There is mild reduction in before meals and glenohumeral joint space. No bony erosive changes. No loose bodies. No acute fracture or dislocation. There is soft tissue osteophyte or calcification along the inferior glenoid. XR/XR clavicle RT IMPRESSION: Unremarkable right clavicle exam. Mild degenerative changes right AC and right glenohumeral joint. Inferior glenoid calcification or osteophyte.
--- NOTE | ~2022-01-25 | XR_ITS ---
EXAMINATION: RIGHT CLAVICLE AND RIGHT SHOULDER. CLINICAL INFORMATION: Injury. Pain. COMPARISON: None TECHNIQUE: Right shoulder 3 views. Right clavicle 2 views. FINDINGS: Right clavicle: There is no visible acute fracture or dislocation seen. There is mild reduction AC joint space. The soft tissues are normal. Right shoulder: There is mild reduction in before meals and glenohumeral joint space. No bony erosive changes. No loose bodies. No acute fracture or dislocation. There is soft tissue osteophyte or calcification along the inferior glenoid. XR/XR shoulder RT min 2V IMPRESSION: Unremarkable right clavicle exam. Mild degenerative changes right AC and right glenohumeral joint. Inferior glenoid calcification or osteophyte.
[2022-01-25 16:20] VITALS: BP 138/86; BP 143/78; PULSE 71; PULSE 76; RESP 18; TEMP 36.6; O2SAT 95; BMI 31.3
--- NOTE | 2022-01-25 17:04 | ED_ITS ---
HPI - Extremity Injury (Lower) General Chief Complaint: Extremity Injury, Lower <CLEMENCIA Koch - Last Filed: 01/25/22 19:16> Stated Complaint: ?ankle fracture <CLEMENCIA Koch - Last Filed: 01/25/22 19:16> Time Seen by Provider: 01/25/22 17:04 <CLEMENCIA Koch - Last Filed: 01/25/22 19:16> History of Present Illness HPI Narrative: Patient complains of left ankle and right shoulder pain after a fall on a slippery embankment while he was walking to a fishing pole, he could not ambulate after that and was taken by EMS to the emergency room and was given fentanyl for pain control, denies any other injury The painful injury is the left ankle <CLEMENCIA Koch - Last Filed: 01/25/22 19:16> Related Data Home Medications: Home Medications Medication Instructions Recorded Confirmed aspirin 81 mg tablet,delayed 81 mg PO DAILY 06/06/20 10/23/21 release diphenhydramine HCl 25 mg capsule 25 mg PO BEDTIME 06/06/20 10/23/21 (Allergy (diphenhydramine)) lisinopril 40 mg tablet 40 mg PO DAILY 06/06/20 10/23/21 loratadine 10 mg capsule 10 mg PO DAILY 06/06/20 10/23/21 metoprolol succinate 25 mg 25 mg PO DAILY 06/06/20 10/23/21 tablet,extended release 24 hr sennosides 8.6 mg capsule (senna) 8.6 mg PO BEDTIME PRN 06/06/20 10/23/21 ziprasidone HCl 40 mg capsule 40 mg PO BID 06/06/20 10/23/21 zolpidem 5 mg tablet 5 mg PO BEDTIME PRN 06/06/20 10/23/21 buprenorphine 8 mg-naloxone 2 mg 1 film SUBLINGUAL BID 12/06/20 10/23/21 sublingual film amlodipine 10 mg tablet 10 mg PO BEDTIME 03/26/21 10/23/21 atorvastatin 40 mg tablet 40 mg PO BEDTIME 03/26/21 10/23/21 dorzolamide 22.3 mg-timolol 6.8 1 drp OPHTHALMIC (EYE) BID 03/26/21 10/23/21 mg/mL eye drops fluticasone propionate 110 1 puff PO BID PRN 03/26/21 10/23/21 mcg/actuation HFA aerosol inhaler (Flovent HFA) glipizide 5 mg tablet, extended 5 mg PO DAILY 03/26/21 10/23/21 release 24 hr insulin detemir U-100 100 unit/mL 76 unit SUBCUT BEDTIME 03/26/21 10/23/21 subcutaneous solution (Levemir U-100 Insulin) latanoprost 0.005 % eye drops 1 drp OPHTHALMIC (EYE) BEDTIME 03/26/21 10/23/21 metformin 1,000 mg tablet 1,000 mg PO BID 03/26/21 10/23/21 multivitamin-ferrous 1 tab PO DAILY 03/26/21 10/23/21 fumarate-folic acid 18 mg-400 mcg tablet (Certavite-Antioxidant) olanzapine 5 mg tablet (Zyprexa) 5 mg PO BEDTIME 03/26/21 10/23/21 omega-3 fatty acids-fish oil 340 1 cap PO TID 03/26/21 10/23/21 mg-1,000 mg capsule (Fish Oil) peg [id number] 1 1 drp OPHTHALMIC (EYE) QID 03/26/21 10/23/21 %-0.2 %-0.2 % eye drops (Dry Eye Relief) trazodone 100 mg tablet 100 mg PO BEDTIME PRN 03/26/21 10/23/21 trazodone 150 mg tablet 300 tab PO BEDTIME 03/26/21 10/23/21 blood sugar diagnostic (FreeStyle #10 ea 09/11/21 10/23/21 Lite Strips) clotrimazole 1 % topical cream appl TOPICAL 09/11/21 10/23/21 insulin syringe-needle U-100 1 mL #10 ea 09/11/21 10/23/21 31 gauge x 5/16 lancets 33 gauge (TRUEplus Lancets) #100 ea 09/11/21 10/23/21 loratadine 10 mg tablet 10 mg PO QAM 09/11/21 10/23/21 Previous Rx's Medication Instructions Recorded sucralfate 1 gram tablet 1 g PO BID 30 Days #60 tab 09/12/20 doxycycline hyclate 100 mg capsule 100 mg PO BID 7 Days #14 cap 06/19/21 ferrous sulfate 15 mg iron (75 2 ml PO DAILY 30 Days #60 ml 09/02/21 mg)/mL oral drops oxybutynin chloride 5 mg 5 mg PO DAILY 90 Days #90 tab 09/11/21 tablet,extended release 24 hr tamsulosin 0.4 mg capsule 0.4 mg PO BEDTIME 90 Days #90 cap 09/11/21 omeprazole 20 mg capsule,delayed 20 mg PO DAILY 90 Days #90 cap 09/19/21 release lidocaine 4 % topical patch 1 patch TOPICAL DAILY PRN #10 ea 10/02/21 <CLEMENCIA Koch - Last Filed: 01/25/22 19:16> Allergies/Adverse Reactions: Allergies Allergy/AdvReac Type Severity Reaction Status Date / Time No Known Allergies Allergy Verified 10/23/21 13:04 <CLEMENCIA Koch - Last Filed: 01/25/22 19:16> Review of Systems Review of Systems: Positive for left ankle pain and right shoulder pain Negatives are no head injury no headache no neck pain no back pain no numbness no weakness no tingling no other extremity injuries <CLEMENCIA Koch - Last Filed: 01/25/22 19:16> Yes all other systems are reviewed and are negative <CLEMENCIA Koch - Last Filed: 01/25/22 19:16> [facility] Past Medical History Source: nursing notes reviewed <CLEMENCIA Koch - Last Filed: 01/25/22 19:16> Medical History: Medical History Anxiety CAD (coronary artery disease) Chronic constipation COPD (chronic obstructive pulmonary disease) Diabetes mellitus Genital herpes GERD (gastroesophageal reflux disease) History of adenomatous polyp of colon Hypertension Opioid dependence on agonist therapy JAUN (obstructive sleep apnea) Pancreatic abnormality Prepatellar bursitis, left knee <CLEMENCIA Koch - Last Filed: 01/25/22 19:16> Surgical History: Surgical History No history of previous surgery <CLEMENCIA Koch - Last Filed: 01/25/22 19:16> Family History Family History: Family History Mother No problems noted. Father Liver cancer <CLEMENCIA Koch - Last Filed: 01/25/22 19:16> Social History Social History: Social History Alcohol intake: never Patient Tobacco Use Status: Current someday Tobacco user Advance Directives: No Advance Directives Information Provided: No service: No Current occupational status: retired and disabled Current occupation: right handed <CLEMENCIA Koch - Last Filed: 01/25/22 19:16> Physical Exam Vital Signs: Vital Signs: Last Vital Signs Temp 98.6 F 01/25/22 19:00 Pulse 70 01/25/22 20:19 Resp 16 01/25/22 20:19 BP 156/78 H 01/25/22 20:19 Pulse Ox 93 01/25/22 20:18 Oxygen Flow Rate 2 01/25/22 19:00 BMI result Body Mass Index 31.3 <CLEMENCIA Koch - Last Filed: 01/25/22 19:16> Vital Signs: Last Vital Signs Temp 98.6 F 01/25/22 19:00 Pulse 70 01/25/22 20:19 Resp 16 01/25/22 20:19 BP 156/78 H 01/25/22 20:19 Pulse Ox 93 01/25/22 20:18 Oxygen Flow Rate 2 01/25/22 19:00 BMI result Body Mass Index 31.3 <Rosalba Stanley MD - Last Filed: 01/25/22 21:07> General appearance is uncomfortable Head is normocephalic atraumatic Neck is supple nontender Respiratory no distress Chest wall nontender Abdomen is soft nontender Extremities the left ankle is tender swollen and ecchymotic, the dorsalis pedis pulses 2+, cap refill is normal, sensation and motor distal are normal Right shoulder has good range of motion but there is tendenesss over anterior and posterior shoulder, neurovascular intact distal no deformities no swelling, skin intact Neuro patient's A&O x3, interaction both expression and comprehension are normal, motor is 5/5 x4, sensation intact and symmetrical <CLEMENCIA Koch - Last Filed: 01/25/22 19:16> Course Course Course Narrative: Left ankle x-ray showed a distal fibula comminuted fracture with displaced medial malleolar fracture with soft tissue swelling and the mortise is disrupted Right shoulder and clavicle x-rays were negative for acute fracture Case was discussed with Ortho which recommended reduction as best possible in the ER and follow in the office in several days for surgery scheduling and ortho evaluation Case was discussed with Dr. stanley who said he would do the reduction as I am not familiar with, and will do conscious sedation At 19:00 case is signed out to Dr. Stanley and physician hospital aides and assistants teacher shin pending trial of ambulation with crutches, possible placement to a group home or rehab facility and re-evaluation a post reduction film <CLEMENCIA Koch - Last Filed: 01/25/22 19:16> MDM - Extremity Injury (Lower) MDM Narrative Medical decision making narrative: Positive tib-fib fracture with disruption of the mortise. After discussion with Orthopedics attempted moderate sedation reduction finding discussed with orthopedics. Nonweightbearing. Post reduction film was reviewed with orthopedics feel comfortable with the minimal improvement. Patient is splinted. Ambulated well in the emergency department wild on a walker. Nonweightbearing on the left side. Patient has a to help him with daily chores. Feel comfortable with going home. Will give patient oxycodone for pain. Will have patient follow-up on an outpatient basis with Orthopedics. Will likely require surgery. Patient states understanding. Is currently in stable condition will discharge home. <Rosalba Stanley MD - Last Filed: 01/25/22 21:07> Medical Records Attestation: I reviewed the patient's medical records. <Rosalba Stanley MD - Last Filed: 01/25/22 21:07> Lab Data Attestation: I reviewed the patient's lab results. <Rosalba Stanley MD - Last Filed: 01/25/22 21:07> ECG Data Attestation: I personally reviewed and interpreted this ECG as follows: <Rosalba Stanley MD - Last Filed: 01/25/22 21:07> Procedures Orthopedic Fracture Reduction left ankle: Time Out Performed: Yes <Rosalba Stanley MD - Last Filed: 01/25/22 21:07> Side: left <Rosalba Stanley MD - Last Filed: 01/25/22 21:07> Fracture Reduction Location: tibia and fibula <Rosalba Stanley MD - Last Filed: 01/25/22 21:07> Analgesia: procedural sedation <Rosalba Stanley MD - Last Filed: 01/25/22 21:07> Technique: direct manipulation <Rosalba Stanley MD - Last Filed: 01/25/22 21:07> Post Reduction X-rays Demonstrate: acceptable reduction <Rosalba Stanley MD - Last Filed: 01/25/22 21:07> Post-reduction neuro exam: intact <Rosalba Stanley MD - Last Filed: 01/25/22 21:07> Post-reduction vascular exam: intact <Rosalba Stanley MD - Last Filed: 01/25/22 21:07> Splint Applied: Yes <Rosalba Stanley MD - Last Filed: 01/25/22 21:07> Patient Tolerated Procedure: well <Rosalba Stanley MD - Last Filed: 01/25/22 21:07> Additional Comments: Ketamine used for anesthesia. Risk and benefit of the procedure was explained to patient including risk of airway loss neurovascular injury. Conversion to an open fracture. <Rosalba Stanley MD - Last Filed: 01/25/22 21:07> Discharge Plan Discharge Clinical Impression: Ankle fracture, left, Ankle fracture <CLEMENCIA Koch - Last Filed: 01/25/22 19:16> Patient Disposition: Home, Self-Care <CLEMENCIA Koch - Last Filed: 01/25/22 19:16> Instructions: Leg Fracture (ED), How to Transfer a Person Safely (DC) <CLEMENCIA Koch - Last Filed: 01/25/22 19:16> Additional Instructions: Non weight bearing on the left side. You have a real bad fracture. Please do not put weight on the left lower extremity. Please usual walker. Please closely follow-up with orthopedic on an outpatient basis. You will require surgery for this fracture. <CLEMENCIA Koch - Last Filed: 01/25/22 19:16> Prescriptions: No Action sucralfate 1 gram tablet 1 g PO BID 30 Days Qty: 60 3RF ferrous sulfate 15 mg iron (75 mg)/mL drops 2 ml PO DAILY 30 Days Qty: 60 4RF omeprazole 20 mg capsule,delayed release(DR/EC) 20 mg PO DAILY 90 Days Qty: 90 1RF latanoprost 0.005 % drops 1 drp ophthalmic (eye) BEDTIME 0RF atorvastatin 40 mg tablet 40 mg PO BEDTIME 0RF olanzapine [Zyprexa] 5 mg tablet 5 mg PO BEDTIME 0RF glipizide 5 mg tablet extended release 24hr 5 mg PO DAILY 0RF trazodone 100 mg tablet 100 mg PO BEDTIME PRN (Reason: Insomnia) 0RF amlodipine 10 mg tablet 10 mg PO BEDTIME 0RF metformin 1,000 mg tablet 1,000 mg PO BID 0RF dorzolamide-timolol 22.3-6.8 mg/mL drops 1 drp ophthalmic (eye) BID 0RF Flovent HFA 110 mcg/actuation HFA aerosol inhaler 1 puff PO BID PRN (Reason: Wheezing) 0RF Dry Eye Relief 1-0.2-0.2 % drops 1 drp ophthalmic (eye) QID 0RF Levemir U-100 Insulin 100 unit/mL solution 76 unit subcut BEDTIME 0RF Fish Oil 340-1,000 mg capsule 1 cap PO TID 0RF Certavite-Antioxidant 18-400 mg-mcg tablet 1 tab PO DAILY 0RF trazodone 150 mg tablet 300 tab PO BEDTIME 0RF doxycycline hyclate 100 mg capsule 100 mg PO BID 7 Days Qty: 14 0RF lidocaine 4 % adhesive patch,medicated 1 patch topical DAILY PRN (Reason: pain) Qty: 10 0RF Rx Instructions: may leave on for up to 12 hrs aspirin 81 mg tablet,delayed release (DR/EC) 81 mg PO DAILY 0RF loratadine 10 mg capsule 10 mg PO DAILY 0RF zolpidem 5 mg tablet 5 mg PO BEDTIME PRN (Reason: Insomnia) 0RF lisinopril 40 mg tablet 40 mg PO DAILY 0RF ziprasidone HCl 40 mg capsule 40 mg PO BID 0RF Rx Instructions: give with food (meal/snack) diphenhydramine HCl [Allergy (diphenhydramine)] 25 mg capsule 25 mg PO BEDTIME 0RF metoprolol succinate 25 mg tablet extended release 24 hr 25 mg PO DAILY 0RF senna 8.6 mg capsule 8.6 mg PO BEDTIME PRN (Reason: Constipation) 0RF buprenorphine-naloxone 8-2 mg film 1 film sublingual BID 0RF (DME) lancets [TRUEplus Lancets] 33 gauge misc See Rx Instructions ea Not Applicable TID Qty: 100 0RF Rx Instructions: As directed clotrimazole 1 % cream topical 0RF loratadine 10 mg tablet 10 mg PO QAM 0RF (DME) insulin syringe-needle U-100 1 mL 31 gauge x 5/16 syringe See Rx Instructions ea subcut DAILY Qty: 10 0RF Rx Instructions: As directed (DME) FreeStyle Lite Strips Strip See Rx Instructions ea Not Applicable TID Qty: 10 0RF Rx Instructions: As directed oxybutynin chloride 5 mg tablet extended release 24hr 5 mg PO DAILY 90 Days Qty: 90 3RF tamsulosin 0.4 mg capsule 0.4 mg PO BEDTIME 90 Days Qty: 90 3RF <CLEMENCIA Koch - Last Filed: 01/25/22 19:16> Referrals: Jigar Lee MD [Physician] - (Nonweightbearing on the left side. You must use the walker. Please closely follow-up with Dr. Lee early this week. The phone numbers provided.) <CLEMENCIA Koch - Last Filed: 01/25/22 19:16>
[2022-01-25] MEDS: Morphine Sulfate 4 MG/ML CARTRIDGE IVPUSH (17:21)
[2022-01-25] MEDS: Ketamine HCl/NS 50 MG/5 ML SYRINGE 90.718 MG IVPUSH (18:50)
[2022-01-25 18:51] VITALS: BP 161/89; PULSE 69; RESP 14; TEMP 36.8; O2SAT 99
[2022-01-25 19:00] VITALS: BP 161/89; PULSE 81; RESP 16; TEMP 37; O2SAT 97
[2022-01-25 20:00] VITALS: PULSE 70; RESP 16
[2022-01-25 20:18] VITALS: BP 156/78; PULSE 70; RESP 16; O2SAT 93
[2022-01-25 20:19] VITALS: BP 156/78; PULSE 70; RESP 16
--- NOTE | 2022-01-25 20:40 | PC.NURSE ---
Pt was able to walk with a walker and not apply weight to the left ankle. pt is eating and drinking with no difficutly. pt is alert oriented x4, no s/s of distress, vitals stable. ivf finishing up. pt has no dizzyiness, pt is calling for a ride home. this has been discusses with rosa sanchez and pt is okay to leave with a ride home. pt is cleared for discharge per dr lee.
== END 2022-01-25 21:40 | disposition home or self-care (01) ==
PROVIDERS: Emergency Provider Emergency Medicine Emergency Medical Services; PCP Internal Medicine
DX: S82.892A Other fracture of left lower leg, initial encounter for closed fracture (principal); M25.572 Pain in left ankle and joints of left foot; F17.200 Nicotine dependence, unspecified, uncomplicated; W01.0XXA Fall on same level from slipping, tripping and stumbling without subsequent striking against object, initial encounter; Y93.9 Activity, unspecified; Y92.9 Unspecified place or not applicable; Y99.9 Unspecified external cause status; Z79.899 Other long term (current) drug therapy; Z71.6 Tobacco abuse counseling
CPT/HCPCS: 27788; 29515; 73000; 73030; 73600; 73610; 96374; 96375; 99152; 99283; 99285; J2270

== ENCOUNTER 2022-01-27 10:54 | Inpatient (IN) | payer OTHER, SELFPAY ==
[2022-01-27] VITALS (9 sets, daily range): BP systolic 142–199; BP diastolic 74–97; PULSE 67–77; RESP 14–20; TEMP 36.8–37.3; O2SAT 88–97; BMI 29.7
--- NOTE | ~2022-01-27 | FL_ITS ---
EXAMINATION: XR FLUOROSCOPY WITH IMAGES CLINICAL INFORMATION: Left ankle fracture. COMPARISON: Previous x-ray 01/27/2022. TECHNIQUE: Fluoroscopy performed by Dr. Jigar Lee. Fluoroscopy time: 0.2 minutes DAP: 0.2 mGycm2 Images: 6 FINDINGS: There is a plate and screws transfixing the distal fibular shaft fracture. There are 2 screws transfixing the malleolar fracture. Alignment appears improved. The ankle mortise alignment appears improved. FL/FL guidance in OR IMPRESSION: Fluoroscopy guidance for ORIF of bimalleolar ankle fracture.
--- NOTE | ~2022-01-27 | XR_ITS ---
EXAMINATION: XR ANKLE, LEFT CLINICAL INFORMATION: Left ankle fracture, follow-up. COMPARISON: 11/25/2021 left ankle radiographs. TECHNIQUE: AP, lateral, and mortise views of the left ankle. FINDINGS: An overlying cast obscures osseous detail. Again seen are medial lateral malleoli fractures with associated valgus angulation of the distal fibular/malleoli fracture and mild malalignment of the tibiotalar joint space and medial malleolus with similar appearance. The tarsal bones are normally aligned. Small plantar and retrocalcaneal spurs are seen. There is moderate soft tissue swelling. XR/XR ankle LT 2V IMPRESSION: Similar malalignment of the ankle fracture fragments as detailed above.
--- NOTE | ~2022-01-27 | CT_ITS ---
EXAMINATION: CT CHEST WITHOUT CONTRAST CLINICAL INFORMATION: Left rib pain status post fall COMPARISON: CT chest 10/02/2021, CT chest abdomen pelvis 09/07/2021 TECHNIQUE: Multidetector volumetric CT imaging of the chest was done. Axial MIP volume rendering provided. Sagittal and coronal reformatted images were obtained. This CT examination was performed using dose optimization techniques as appropriate, variously including the following: *Automated exposure control *Adjustment of mA and/or kV according to patient size (this includes techniques or standardized protocols for targeted exams where dose is matched to indication/reason for exam; i.e. extremities or head) *Use of iterative reconstruction technique DLP: 355 mGy-cm FINDINGS: LUNGS: The lungs are clear with no evidence of inflammation or worrisome nodules. A small punctate granuloma noted in the right lower lobe with a larger calcified granuloma in the right middle lobe. MEDIASTINUM: The mediastinum is unremarkable. Heart size normal. Minimal coronary calcifications are present. No mediastinal or hilar lymphadenopathy. PLEURA: There is no pleural effusion. No pleural mass or thickening. AXILLA/CHEST WALL: No lymphadenopathy. No chest wall hematomas. UPPER ABDOMEN: Stable bilateral water density adrenal masses are present consistent with benign adenomas the mass on the right is complex with fatty component with calcifications and a water density component. OSSEOUS STRUCTURES: No acute rib fractures are seen. There is an old healed fracture of the right anterolateral sixth rib. No spine fracture is seen. The sternum manubrium and clavicles appear normal. CT/CT chest wo con IMPRESSION: No evidence of an acute injury involving the chest. No acute rib fractures are seen. Old healed right-sided rib fracture as described above. Stable adrenal masses consistent with adenomas. Fleischner guidelines were followed.
--- NOTE | 2022-01-27 11:05 | ECG_ITS ---
Test Reason : PRE OP EKG Blood Pressure : / mmHG Vent. Rate : 065 BPM Atrial Rate : 065 BPM P-R Int : 188 ms QRS Dur : 120 ms QT Int : 440 ms P-R-T Axes : 062 -65 016 degrees QTc Int : 457 ms Normal sinus rhythm Left anterior fascicular block Abnormal ECG When compared with ECG of 19-JUN-2021 11:46, Criteria for Septal infarct are no longer Present Referred By: Kaitlin Damon Electronically Signed By:ROSELYN MOYER MD
--- NOTE | 2022-01-27 11:11 | ED_ITS ---
HPI - Extremity Problem General Chief complaint: Fall Stated complaint: L ANKLE FX,RETURN PER ORTHO REQUEST Time Seen by Provider: 01/27/22 11:02 Source: patient and old records reviewed Mode of arrival: EMS Limitations: no limitations History of Present Illness HPI Narrative: fall on 01/25 fell down embankment while fishing no LOC, hit ribs and injured L ankle resulting in L bimalleolar fracture orthopedics was consulted from ED told to follow up in clinic - patient was called by orthopedics today and told to c ome to ED for possible surgery. No new trauma but notes L ribs are painful - no imaging done. MD Complaint: extremity pain and joint pain Onset (ago): day(s) (2) Pain Consistency: constant Location: left and lower extremity Quality: aching and constant Radiation: none Relieving factors: immobilization and elevation Exacerbating factors: palpation Associated symptoms: other (L rib pain after fall ) Context: other (fall on 01/25 known bimalleolar fracture) Related Data Home Medications Medication Instructions Recorded Confirmed aspirin 81 mg tablet,delayed 81 mg PO DAILY 06/06/20 01/27/22 release lisinopril 40 mg tablet 40 mg PO DAILY 06/06/20 01/27/22 metoprolol succinate 25 mg 25 mg PO DAILY 06/06/20 01/27/22 tablet,extended release 24 hr sennosides 8.6 mg capsule (senna) 8.6 mg PO BEDTIME PRN 06/06/20 01/27/22 buprenorphine 8 mg-naloxone 2 mg 1 film SUBLINGUAL BID 12/06/20 01/27/22 sublingual film amlodipine 10 mg tablet 10 mg PO BEDTIME 03/26/21 01/27/22 atorvastatin 40 mg tablet 40 mg PO BEDTIME 03/26/21 01/27/22 dorzolamide 22.3 mg-timolol 6.8 1 drp OPHTHALMIC (EYE) BID 03/26/21 01/27/22 mg/mL eye drops fluticasone propionate 110 1 puff PO BID PRN 03/26/21 01/27/22 mcg/actuation HFA aerosol inhaler (Flovent HFA) glipizide 5 mg tablet, extended 5 mg PO DAILY 03/26/21 01/27/22 release 24 hr insulin detemir U-100 100 unit/mL 80 unit SUBCUT BEDTIME 03/26/21 01/27/22 subcutaneous solution (Levemir U-100 Insulin) latanoprost 0.005 % eye drops 1 drp OPHTHALMIC (EYE) BEDTIME 03/26/21 01/27/22 metformin 1,000 mg tablet 1,000 mg PO BID 03/26/21 01/27/22 multivitamin-ferrous 1 tab PO DAILY 03/26/21 01/27/22 fumarate-folic acid 18 mg-400 mcg tablet (Certavite-Antioxidant) olanzapine 5 mg tablet (Zyprexa) 5 mg PO BEDTIME 03/26/21 01/27/22 omega-3 fatty acids-fish oil 340 1 cap PO TID 03/26/21 01/27/22 mg-1,000 mg capsule (Fish Oil) peg [id number] 1 1 drp OPHTHALMIC (EYE) QID 03/26/21 01/27/22 %-0.2 %-0.2 % eye drops (Dry Eye Relief) trazodone 100 mg tablet 100 mg PO BEDTIME PRN 03/26/21 01/27/22 trazodone 150 mg tablet 300 tab PO BEDTIME 03/26/21 01/27/22 blood sugar diagnostic (FreeStyle #10 ea 09/11/21 10/23/21 Lite Strips) clotrimazole 1 % topical cream 1 appl TOPICAL BID 09/11/21 01/27/22 insulin syringe-needle U-100 1 mL #10 ea 09/11/21 10/23/21 31 gauge x 5/16 lancets 33 gauge (TRUEplus Lancets) #100 ea 09/11/21 10/23/21 loratadine 10 mg tablet 10 mg PO QAM 09/11/21 01/27/22 naproxen 500 mg tablet 1 tab PO BID PRN 01/27/22 01/27/22 Previous Rx's Medication Instructions Recorded ferrous sulfate 15 mg iron (75 2 ml PO DAILY 30 Days #60 ml 09/02/21 mg)/mL oral drops oxybutynin chloride 5 mg 5 mg PO DAILY 90 Days #90 tab 09/11/21 tablet,extended release 24 hr tamsulosin 0.4 mg capsule 0.4 mg PO BEDTIME 90 Days #90 cap 09/11/21 omeprazole 20 mg capsule,delayed 20 mg PO DAILY 90 Days #90 cap 09/19/21 release lidocaine 4 % topical patch 1 patch TOPICAL DAILY PRN #10 ea 10/02/21 Allergies Allergy/AdvReac Type Severity Reaction Status Date / Time No Known Allergies Allergy Verified 01/27/22 11:10 Review of Systems Review of Systems: Constitutional : No Fever, No Chills ENT/Mouth : No Ear Pain, No Hoarseness, No sore throat Eyes: No Eye Pain, No Swelling, No Redness, No Foreign Body Cardiovascular : No Chest Pain, No SOB, pos rib pain Respiratory : No Cough, No Dyspnea Gastrointestinal : No Nausea, No Vomiting, No Diarrhea, No abdominal Pain Genitourinary : No Dysuria, No Hematuria Musculoskeletal : positive joint pain, No Myalgias, pos Joint Swelling Skin : No Skin lacerations, No rash Neuro : No Weakness, No Numbness, No Loss of Consciousness, No Dizziness, No Headache Psych : No Anxiety/Panic, No Depression Heme/Lymph: no easy bruising, no Lymphadenopathy Endocrine : No Polyuria, No Polydipsia All other systems reviewed and are negative [facility] Past Medical History Attestation statement: The following information was validated with the patient. Medical History Anxiety CAD (coronary artery disease) Chronic constipation COPD (chronic obstructive pulmonary disease) Diabetes mellitus Genital herpes GERD (gastroesophageal reflux disease) History of adenomatous polyp of colon Hypertension Opioid dependence on agonist therapy JAUN (obstructive sleep apnea) Pancreatic abnormality Prepatellar bursitis, left knee Surgical History No history of previous surgery Family History Family History Mother No problems noted. Father Liver cancer Social History Social History Alcohol intake: never Patient Tobacco Use Status: Current someday Tobacco user Advance Directives: No Advance Directives Information Provided: Yes service: No Current occupational status: retired and disabled Current occupation: right handed Physical Exam Vital Signs: Vital Signs: Last Vital Signs Temp 98.3 F 01/27/22 13:05 Pulse 68 01/27/22 14:10 Resp 18 01/27/22 14:10 BP 148/79 H 01/27/22 14:10 Pulse Ox 95 01/27/22 14:10 BMI result Body Mass Index 29.7 Appearance: Alert. Oriented X3. No acute distress. Eyes: Pupils equal, round and reactive to light. ENT: Pharynx normal. Neck: Normal inspection. Neck supple. CVS: Normal heart rate and rhythm. Pulses normal. Chest wall: ttp along Left lateral ribs Respiratory: No respiratory distress. Breath sounds normal. Abdomen: Soft and nontender. Skin: Skin warm and dry. Normal skin color. Normal skin turgor. Extremities: No lower extremity edema. L ankle in splint toes are warm and can wiggle, BCR in all digits Neuro: Oriented X 3. No motor deficit. No sensory deficit. removed splint at Orthopedics request for skin check Course Course Course Narrative: per orthopedics admit to medicine and plan for surgery unsure when this will occur - [place] Cherelle COVID + 4th shot in place MDM - Extremity (Nontraumatic) MDM Narrative Medical decision making narrative: 71 yo male with hx of anemia, TENA, GERD, BPH seen here on 01/25 after mechanical fall resulting in L rib pain and L bimalleolar fracture - patient was reduced in ED with minimal improvement orthopedics notified while patient was in ED. Notifi ed by orthopedics to come back to ED today for possible surgery - will need labs, EKG, IV morphine for pain. Given rib pain CT scan for rib fracture ordered. Patient has no other complaints at this time. Will notify orthopedics as well. Lab Data Result diagrams: 01/27/22 11:19 01/27/22 11:19 Labs: Lab Results 01/27/22 01/27/22 01/27/22 Range/Units 11:19 11:19 11:19 WBC 13.6 H (4.8-10.8) X10*3/uL RBC 3.91 L (4.60-5.80) X10*6/uL Hgb 11.7 L (14.0-18.0) g/dl Hct 34.6 L (42.0-52.0) % MCV 88.5 (80.0-98.0) fL MCH 29.9 (27.0-33.0) pg MCHC 33.8 (31.0-36.0) g/dl RDW 12.2 (11.0-16.0) % Plt Count 315 (160-400) X10*3/uL MPV 9.6 (9.4-12.4) fL Immature Gran % (Auto) 0.9 H (0.0-0.4) % Neut % (Auto) 75.3 H (45-73) % Lymph % (Auto) 15.9 L (20-40) % [place] % (Auto) 7.3 (2-11) % Eos % (Auto) 0.5 (0-4) % Baso % (Auto) 0.1 (0-2) % Lymph # (Auto) 2.2 (1.2-4.9) X10*3/uL [place] # (Auto) 1.0 (0.1-1.2) X10*3/uL Eos # (Auto) 0.1 (0.0-0.4) X10*3/uL Baso # (Auto) 0.0 (0.0-0.2) X10*3/uL Abs Immat Gran (auto) 0.12 H (0.00-0.03) X10*3/uL Absolute Neuts (auto) 10.3 H (2.0-8.3) x10*3/uL Absolute Nucleated RBC 0.000 (0.0-0.012) X10*3/uL Nucleated RBC % (auto) 0.0 (0.0-0.2) /100WBC PT 13.3 H (9.9-13.0) SEC INR 1.2 H (0.9-1.1) Sodium 135 (135-145) mmol/L Potassium 3.7 (3.3-5.1) mmol/L Chloride 95 L (96-108) mmol/L Carbon Dioxide 28 (22-29) mmol/L Anion Gap 16 (12-20) BUN 19 H (9-16) mg/dL Creatinine 1.29 (0.5-1.4) mg/dL Estim Creat Clear Calc 53.4 Estimated GFR 55 Random Glucose 127 H D (60-115) mg/dL Calcium 9.2 D (8.4-10.2) mg/dL Magnesium 1.4 L* (1.6-2.6) mg/dL Total Bilirubin 0.8 (0.0-1.0) mg/dL Direct Bilirubin 0.3 (0.0-0.5) mg/dL AST 50 H D (5-37) U/L ALT 31 (0-40) U/L Alkaline Phosphatase 75 (39-117) U/L Total Protein 7.2 (6.5-8.0) g/dL Albumin 4.2 (3.5-5.0) g/dL COVID-19 (THANG) (Negative) COVID-19 Clin Com 01/27/22 Range/Units 11:19 WBC (4.8-10.8) X10*3/uL RBC (4.60-5.80) X10*6/uL Hgb (14.0-18.0) g/dl Hct (42.0-52.0) % MCV (80.0-98.0) fL MCH (27.0-33.0) pg MCHC (31.0-36.0) g/dl RDW (11.0-16.0) % Plt Count (160-400) X10*3/uL MPV (9.4-12.4) fL Immature Gran % (Auto) (0.0-0.4) % Neut % (Auto) (45-73) % Lymph % (Auto) (20-40) % [place] % (Auto) (2-11) % Eos % (Auto) (0-4) % Baso % (Auto) (0-2) % Lymph # (Auto) (1.2-4.9) X10*3/uL [place] # (Auto) (0.1-1.2) X10*3/uL Eos # (Auto) (0.0-0.4) X10*3/uL Baso # (Auto) (0.0-0.2) X10*3/uL Abs Immat Gran (auto) (0.00-0.03) X10*3/uL Absolute Neuts (auto) (2.0-8.3) x10*3/uL Absolute Nucleated RBC (0.0-0.012) X10*3/uL Nucleated RBC % (auto) (0.0-0.2) /100WBC PT (9.9-13.0) SEC INR (0.9-1.1) Sodium (135-145) mmol/L Potassium (3.3-5.1) mmol/L Chloride (96-108) mmol/L Carbon Dioxide (22-29) mmol/L Anion Gap (12-20) BUN (9-16) mg/dL Creatinine (0.5-1.4) mg/dL Estim Creat Clear Calc Estimated GFR Random Glucose (60-115) mg/dL Calcium (8.4-10.2) mg/dL Magnesium (1.6-2.6) mg/dL Total Bilirubin (0.0-1.0) mg/dL Direct Bilirubin (0.0-0.5) mg/dL AST (5-37) U/L ALT (0-40) U/L Alkaline Phosphatase (39-117) U/L Total Protein (6.5-8.0) g/dL Albumin (3.5-5.0) g/dL COVID-19 (THANG) Positive A (Negative) COVID-19 Clin Com See Note ECG Data Attestation EKG: I personally reviewed and interpreted this ECG as follows: ECG interpretation date: 01/27/22 ECG interpretation time: 12:05 Interpretation: Rate: 65 Rhythm: NSR [place]: left Normal P waves. Normal SMITH. Normal QRS complex. ST T wave : normal no NICOLE qTC: normal prior studies: no acute ischemia The study has been interpreted contemporaneously by me. Procedures Orthopedic Splinting/Casting Injury #1: Side: left Lower Extremity Injury Location: ankle Lower Extremity Immobilizer: posterior splint and stirrup splint Discharge Plan Discharge Clinical Impression: COVID-19, Hypomagnesemia Bimalleolar ankle fracture Qualifiers: Encounter type: initial encounter Fracture type: closed Laterality: left Qualified Code(s): S82.842A - Displaced bimalleolar fracture of left lower leg, initial encounter for closed fracture Patient Disposition: Admitted As Inpatient
[2022-01-27] MEDS: Morphine Sulfate 4 MG/ML CARTRIDGE IVPUSH (11:20)
[2022-01-27] MEDS: ondansetron HCL 4 MG/2 ML VIAL IVPUSH (11:20)
[2022-01-27 11:27] LABS: MANUAL DIFF FLAG NO
[2022-01-27 11:30] LABS: Basophils Percent Auto 0.1 % (0-2); Eosinophils Absolute Auto 0.1 X10*3/uL (0.0-0.4); Eosinophils Percent Auto 0.5 % (0-4); Hematocrit 34.6 % (42.0-52.0); Hemoglobin 11.7 g/dl (14.0-18.0); Imm Gran Abs Auto 0.12 X10*3/uL (0.00-0.03); Imm Gran Pct Auto 0.9 % (0.0-0.4); Lymphocytes Absolute Auto 2.2 X10*3/uL (1.2-4.9); Lymphocytes Percent Auto 15.9 % (20-40); Mean Corpuscular HGB Conc 33.8 g/dl (31.0-36.0); Mean Corpuscular Hemoglobin 29.9 pg (27.0-33.0); Mean Corpuscular Volume 88.5 fL (80.0-98.0); Mean Platelet Volume 9.6 fL (9.4-12.4); Monocytes Percent Auto 7.3 % (2-11); Neutrophils Absolute Auto 10.3 x10*3/uL (2.0-8.3); Neutrophils Percent Auto 75.3 % (45-73); Platelet Count 315 X10*3/uL (160-400); Red Blood Count 3.91 X10*6/uL (4.60-5.80); Red Cell Distribution Width 12.2 % (11.0-16.0); White Blood Count 13.6 X10*3/uL (4.8-10.8)
[2022-01-27 11:38] LABS: INTERNATIONAL NORM RATIO 1.2 (0.9-1.1); Prothrombin Time 13.3 SEC (9.9-13.0)
[2022-01-27 11:50] LABS: COVID-19 Test Positive (Negative); IDNOW Serial# 9DB6401D
--- NOTE | 2022-01-27 12:00 | PHA.MEDREC ---
Pharmacy Consult ? Medication Reconciliation Pharmacy has completed the medication reconciliation. Patient did not have his list of medications. Reports he takes all medications filled at the pharmacy. Patient confirmed Levemir dose was 80 units. Lilliam Medina, CherieD
[2022-01-27 12:19] LABS: Alanine Aminotransferase 31 U/L (0-40); Albumin Level 4.2 g/dL (3.5-5.0); Alkaline Phosphatase 75 U/L (39-117); Anion Gap 16 (12-20); Aspartate Amino Transferase 50 U/L (5-37); Bilirubin Direct 0.3 mg/dL (0.0-0.5); Bilirubin Total 0.8 mg/dL (0.0-1.0); Blood Urea Nitrogen 19 mg/dL (9-16); Calcium 9.2 mg/dL (8.4-10.2); Carbon Dioxide 28 mmol/L (22-29); Chloride 95 mmol/L (96-108); Creatinine Clr Calc Pharmacy 53.4; Estimated Glomerular Filt Rate 55; Glucose Random 127 mg/dL (60-115); Magnesium 1.4 mg/dL (1.6-2.6); Potassium 3.7 mmol/L (3.3-5.1); Sodium 135 mmol/L (135-145); Total Protein 7.2 g/dL (6.5-8.0)
[2022-01-27] MEDS: Magnesium Sulfate/H2O 2 GM/50 ML PIGGYBACK IV (12:29)
[2022-01-27] MEDS: HYDROmorphone HCl 1 MG/ML SYRINGE IVPUSH (14:10)
--- NOTE | 2022-01-27 16:09 | P.HPHOSP_ITS ---
History of Present Illness Date of Service: 01/27/22 Attending physician on admission: Kristian Frank Chief Complaint: ankle fracture 71 y/O M with history of asthma, hypertension, hyperlipidemia, diabetes mellitus, opioid use, possiblehistory of genital herpes, history of pneumonia: came to the hospital because he fell down on Wednesday and had sustained ankle fracture when he went for fishing- he said he fell into the grass area, and afterwards started to have ankle pain- subsequently came to the emergency room- found to have ankle fracture- had possible reduction with with the pain medication 01/25- discharge with splinting and nonweightbearing on the left side, now patient is coming with significant pain and blister in the ankle area discussed with the surgery recommended to admit the patient for pain control and skin care. Denies any new complaint of chest pain or shortness of breath or abdominal pain or fever or chills or nausea or vomiting Denies any cough Denies any weakness or numbness. social history: Lives with his girlfriend miss Ruiz, denies any history of smoking, recreational drug use, alcohol use. Review of Systems Review of Systems: As above. Yes all other systems are reviewed and are negative [facility] Medical History Anxiety CAD (coronary artery disease) Chronic constipation COPD (chronic obstructive pulmonary disease) Diabetes mellitus Genital herpes GERD (gastroesophageal reflux disease) History of adenomatous polyp of colon Hypertension Opioid dependence on agonist therapy JAUN (obstructive sleep apnea) Pancreatic abnormality Prepatellar bursitis, left knee Family History Mother No problems noted. Father Liver cancer Pertinent family history: As above, did not add any new family history . Surgical History No history of previous surgery Social History Alcohol intake: never Patient Tobacco Use Status: Current someday Tobacco user Advance Directives: No Advance Directives Information Provided: Yes service: No Current occupational status: retired and disabled Current occupation: right handed Meds Allergies Allergy/AdvReac Type Severity Reaction Status Date / Time No Known Allergies Allergy Verified 01/27/22 11:10 Active Medications: Current Medications Amlodipine Besylate (Amlodipine Besylate 10 Mg Tablet) 10 mg PO BEDTIME SAM; Protocol Aspirin (Aspirin Enteric Coated 81 Mg Tablet.Dr) 81 mg PO DAILY SAM Atorvastatin Calcium (Atorvastatin Calcium 40 Mg Tablet) 40 mg PO BEDTIME SAM Buprenorphine/Naloxone (Buprenorphine/Naloxone 8/2 Mg Film) 1 film SUBLINGUAL BID SAM Clotrimazole (Clotrimazole 1 % Cream 15 Gm Tube) 1 appl TOPICAL BID SAM; Protocol Dextrose (Dextrose 50 % 25 Gm/50 Ml Syringe) 25 gm IVPUSH Q15M PRN; Protocol PRN Reason: per Hypoglycemia Standing Ord. Dorzolamide/Timolol (Dorzolamide/Timolo 2.23%/0.68% 10 Ml Drbtl) 1 drop EYE- BOTH BID SAM Glucose (Glucose Gel 15 Gm Gel..Gram.) 15 gm PO Q15M PRN; Protocol PRN Reason: per Hypoglycemia Standing Ord. Lactated Ringer's (Lr) 1,000 mls @ 80 mls/hr IVCONT .[id number] [facility] Insulin Human Lispro (Insulin Lispro 100 Unit/Ml 3 Ml Vial) 0 unit SUBCUT QIDACHS SAM; Protocol Latanoprost (Latanoprost 0.005 % Ophth Yari 2.5 Ml Drops) 1 drop EYE-BOTH BEDTIME SAM Lisinopril (Lisinopril 40 Mg Tablet) 40 mg PO DAILY SAM; Protocol Loratadine (Loratadine 10 Mg Tablet) 10 mg PO QAM SAM Metoprolol Succinate (Metoprolol Succinate Er 25 Mg Tab.Er.24h) 25 mg PO DAILY SAM; Protocol Multivitamins/Vitamin C (Multivitamin Tablet) 1 tab PO DAILY SAM Non-Formulary Medication (Ferrous Sulfate) 2 ml PO DAILY SAM Non-Formulary Medication (Fluticasone Propionate [Flovent Hfa]) 1 puff PO BID PRN PRN Reason: Wheezing Non-Formulary Medication (Insulin Detemir U-100 [Levemir U-100 Insulin]) 70 unit SUBCUT BEDTIME SAM Non-Formulary Medication ([place]-3 Fatty Acids-Fish Oil [Fish Oil]) 1 cap PO TID SAM Non-Formulary Medication (Peg [id number]-Rzlfbjbz [Dry Eye Relief]) 1 drop EYE-BOTH QID SAM Non-Formulary Medication (Sennosides [Senna]) 8.6 mg PO BEDTIME PRN PRN Reason: Constipation Olanzapine (Olanzapine 5 Mg Tablet) 5 mg PO BEDTIME [facility] Omeprazole (Omeprazole 20 Mg Capsule.Dr) 20 mg PO DAILY [facility] Oxybutynin Chloride (Oxybutynin Chloride Er 5 Mg Tab.Er.24) 5 mg PO DAILY [facility] Pharmacy Consult (Consult Rx Perform Med Rec) 1 each MISCELLANE ONCE PRN PRN Reason: Consult order Sodium Chloride (0.9 % Sodium Chloride Flush 3 Ml Syringe) 3 ml IVFLUSH QSHIFT [facility] Tamsulosin HCl (Tamsulosin Hcl 0.4 Mg Capsule) 0.4 mg PO BEDTIME [facility] Trazodone HCl (Trazodone Hcl 100 Mg Tablet) 100 mg PO BEDTIME PRN PRN Reason: Insomnia Trazodone HCl (Trazodone Hcl 100 Mg Tablet) 45,000 mg PO BEDTIME [facility] Home Medications Medication Instructions Recorded Confirmed Last Taken Type aspirin 81 mg tablet,delayed 81 mg PO DAILY 06/06/20 01/27/22 03/26/21 History release lisinopril 40 mg tablet 40 mg PO DAILY 06/06/20 01/27/22 03/26/21 History metoprolol succinate 25 mg 25 mg PO DAILY 06/06/20 01/27/22 03/26/21 History tablet,extended release 24 hr sennosides 8.6 mg capsule (senna) 8.6 mg PO BEDTIME PRN 06/06/20 01/27/22 Unknown History buprenorphine 8 mg-naloxone 2 mg 1 film SUBLINGUAL BID 12/06/20 01/27/22 03/26/21 History sublingual film amlodipine 10 mg tablet 10 mg PO BEDTIME 03/26/21 01/27/22 03/25/21 History atorvastatin 40 mg tablet 40 mg PO BEDTIME 03/26/21 01/27/22 03/25/21 History dorzolamide 22.3 mg-timolol 6.8 1 drp OPHTHALMIC (EYE) BID 03/26/21 01/27/22 03/26/21 History mg/mL eye drops fluticasone propionate 110 1 puff PO BID PRN 03/26/21 01/27/22 Unknown History mcg/actuation HFA aerosol inhaler (Flovent HFA) glipizide 5 mg tablet, extended 5 mg PO DAILY 03/26/21 01/27/22 03/26/21 History release 24 hr insulin detemir U-100 100 unit/mL 80 unit SUBCUT BEDTIME 03/26/21 01/27/22 03/25/21 History subcutaneous solution (Levemir U-100 Insulin) latanoprost 0.005 % eye drops 1 drp OPHTHALMIC (EYE) BEDTIME 03/26/21 01/27/22 03/25/21 History metformin 1,000 mg tablet 1,000 mg PO BID 03/26/21 01/27/22 03/26/21 History multivitamin-ferrous 1 tab PO DAILY 03/26/21 01/27/22 03/26/21 History fumarate-folic acid 18 mg-400 mcg tablet (Certavite-Antioxidant) olanzapine 5 mg tablet (Zyprexa) 5 mg PO BEDTIME 03/26/21 01/27/22 03/25/21 History omega-3 fatty acids-fish oil 340 1 cap PO TID 03/26/21 01/27/22 03/26/21 History mg-1,000 mg capsule (Fish Oil) peg [id number] 1 1 drp OPHTHALMIC (EYE) QID 03/26/21 01/27/22 03/26/21 History %-0.2 %-0.2 % eye drops (Dry Eye Relief) trazodone 100 mg tablet 100 mg PO BEDTIME PRN 03/26/21 01/27/22 03/25/21 History trazodone 150 mg tablet 300 tab PO BEDTIME 03/26/21 01/27/22 03/25/21 History blood sugar diagnostic (FreeStyle #10 ea 09/11/21 10/23/21 Unknown History Lite Strips) clotrimazole 1 % topical cream 1 appl TOPICAL BID 09/11/21 01/27/22 Unknown History insulin syringe-needle U-100 1 mL #10 ea 09/11/21 10/23/21 Unknown History 31 gauge x 5/16 lancets 33 gauge (TRUEplus Lancets) #100 ea 09/11/21 10/23/21 Unknown History loratadine 10 mg tablet 10 mg PO QAM 09/11/21 01/27/22 Unknown History naproxen 500 mg tablet 1 tab PO BID PRN 01/27/22 01/27/22 Unknown History Physical Exam Vital Signs and Narrative: Vital Signs: Last Vital Signs Temp 98.3 F 01/27/22 13:05 Pulse 68 01/27/22 14:10 Resp 18 01/27/22 14:10 BP 148/79 H 01/27/22 14:10 Pulse Ox 95 01/27/22 14:10 BMI result Body Mass Index 29.7 Appearance: Alert.? Oriented X3.? not in distress.? Eyes: Pupils equal, round and reactive to light.? Sclera nonicteric.? ENT: Pharynx normal.? Moist mucous membranes. cvs: rrr, [id number] res: clear to auscultation ,no rhonchii or wheezing abd: no rebound or guarding ,nt, bs present. ext pulses present , no cyanosis , Left ankle swelling and also has big blister on the medial side. neuro: axo3 , nonfocal. Results Labs CBC and Chem 7: 01/27/22 11:19 01/27/22 11:19 Labs: Laboratory Results - last 24 hr 01/27/22 01/27/22 01/27/22 11:19 11:19 11:19 MCV 88.5 MCH 29.9 MCHC 33.8 RDW 12.2 Plt Count 315 MPV 9.6 Immature Gran % (Auto) 0.9 H Neut % (Auto) 75.3 H Lymph % (Auto) 15.9 L [place] % (Auto) 7.3 Eos % (Auto) 0.5 Baso % (Auto) 0.1 Lymph # (Auto) 2.2 [place] # (Auto) 1.0 Eos # (Auto) 0.1 Baso # (Auto) 0.0 Abs Immat Gran (auto) 0.12 H Absolute Neuts (auto) 10.3 H Absolute Nucleated RBC 0.000 Nucleated RBC % (auto) 0.0 PT 13.3 H INR 1.2 H Anion Gap 16 Estim Creat Clear Calc 53.4 Estimated GFR 55 Random Glucose 127 H D Calcium 9.2 D Magnesium 1.4 L* Total Bilirubin 0.8 Direct Bilirubin 0.3 AST 50 H D ALT 31 Alkaline Phosphatase 75 Total Protein 7.2 Albumin 4.2 COVID-19 (THANG) COVID-19 Clin Com 01/27/22 11:19 MCV MCH MCHC RDW Plt Count MPV Immature Gran % (Auto) Neut % (Auto) Lymph % (Auto) [place] % (Auto) Eos % (Auto) Baso % (Auto) Lymph # (Auto) [place] # (Auto) Eos # (Auto) Baso # (Auto) Abs Immat Gran (auto) Absolute Neuts (auto) Absolute Nucleated RBC Nucleated RBC % (auto) PT INR Anion Gap Estim Creat Clear Calc Estimated GFR Random Glucose Calcium Magnesium Total Bilirubin Direct Bilirubin AST ALT Alkaline Phosphatase Total Protein Albumin COVID-19 (THANG) Positive A COVID-19 Clin Com See Note ECG Attestation: I personally reviewed and interpreted this ECG as follows: ( NSR, no new changes) Imaging Radiologist's Impressions: Impressions Ankle X-Ray 01/27/22 11:40 IMPRESSION: Similar malalignment of the ankle fracture fragments as detailed above. Chest CT 01/27/22 11:53 IMPRESSION: No evidence of an acute injury involving the chest. No acute rib fractures are seen. Old healed right-sided rib fracture as described above. Stable adrenal masses consistent with adenomas. Fleischner guidelines were followed. Assessment and Plan (1) Bimalleolar ankle fracture: Qualifiers: Encounter type: initial encounter Fracture type: closed Laterality: left Qualified Code(s): S82.842A - Displaced bimalleolar fracture of left lower leg, initial encounter for closed fracture Status: Acute (2) COVID-19: Status: Acute Plan 71 y/O M with history of asthma, hypertension, hyperlipidemia, diabetes mellitus, opioid use, possiblehistory of genital herpes, history of pneumonia. left ankle fracture: pain control incentive spirometry, bowel regimen htn: seems acceptable continue home medications diabetes: Diabetic diet, fingersticks with coverage hyperlipidemia: Continue statin opioid use: Continue Suboxone. hypomagnesemia: Repleted, recheck eli covid posiive : asymptomatic, monitor id eval DVT prophylaxis: mechanical devices Quality Stroke Does the patient have a stroke diagnosis?: No VTE Prior VTE?: No VTE Risk Level:: Medical - moderate - high VTE Device Contraindication: N/A - Device Ordered VTE Drug Contraindication: N/A - Med Ordered
--- NOTE | 2022-01-27 18:55 | PC.NURSE ---
Pt reporting pain to left ankle. No PRN pain medicatino ordered. notified.
[2022-01-27] MEDS: Insulin Lispro 100 UNIT/ML 3 ML VIAL SUBCUT ×2 (18:58→22:13)
--- NOTE | 2022-01-27 19:20 | P.CONOP_ITS ---
History of Present Illness HPI Consult date: 01/27/22 Chief complaint: Foot fx / blister Narrative: Mr. Garza is a 71 year old male who initially presented to the emergency department on 01/25/22 after sustaining a fall while trying [place] walk [place]. He felt immediate intense ankle pain and presented to the emergency department via EMS. X-rays obtained in the ED revealed a bimalleolar ankle fracture. The ED providers reached out to the on-call orthopedic provider, myself, and were instructed to reduce and splint. The patients pain was well controlled and he was able to ambulate according to the ED staff therefore was discharged home with prompt followup in the orthopedic clinic for the morning on 01/27/22. Upon reaching out to the patient for followup in the orthopedic clinic the patient stated that he was unable to ambulate, in immense pain and had no transportation. In the best interest of the patient the nurse navigator called the non-emergency line and had the patient transported to the [facility] ED for further evaluation and treatment. Of note, the patient has a past medical history significant for insulin dependant DMII, COVID19 +, COPD, HTN, anemia, TENA, GERD, BPH, opioid dependence on buprenorphone naloxine sublingual, and CAD Review of Systems Review of Systems: Yes all other systems are reviewed and are negative PMFSH Past Medical History Medical History Anxiety CAD (coronary artery disease) Chronic constipation COPD (chronic obstructive pulmonary disease) Diabetes mellitus Genital herpes GERD (gastroesophageal reflux disease) History of adenomatous polyp of colon Hypertension Opioid dependence on agonist therapy JAUN (obstructive sleep apnea) Pancreatic abnormality Prepatellar bursitis, left knee Family History Family History Mother No problems noted. Father Liver cancer Surgical History Surgical History No history of previous surgery Social History Social History Alcohol intake: never Patient Tobacco Use Status: Current someday Tobacco user Advance Directives: No Advance Directives Information Provided: Yes service: No Current occupational status: retired and disabled Current occupation: right handed Meds Allergies Allergy/AdvReac Type Severity Reaction Status Date / Time No Known Allergies Allergy Verified 01/27/22 11:10 Active Medications: Current Medications Amlodipine Besylate (Amlodipine Besylate 10 Mg Tablet) 10 mg PO BEDTIME SAM; Protocol Artificial Tears (Artificial Tears 15 Ml Drops) 1 drop EYE-BOTH QID PRN PRN Reason: DRY EYES Aspirin (Aspirin Enteric Coated 81 Mg Tablet.Dr) 81 mg PO DAILY [facility] Atorvastatin Calcium (Atorvastatin Calcium 40 Mg Tablet) 40 mg PO BEDTIME SAM Buprenorphine/Naloxone (Buprenorphine/Naloxone 8/2 Mg Film) 1 film SUBLINGUAL BID [facility] Clotrimazole (Clotrimazole 1 % Cream 15 Gm Tube) 1 appl TOPICAL BID [facility]; Protocol Dextrose (Dextrose 50 % 25 Gm/50 Ml Syringe) 25 gm IVPUSH Q15M PRN; Protocol PRN Reason: per Hypoglycemia Standing Ord. Dorzolamide/Timolol (Dorzolamide/Timolo 2.23%/0.68% 10 Ml Drbtl) 1 drop EYE- BOTH BID SAM Ferrous Sulfate (Ferrous Sulfate 300 Mg/5 Ml Liquid) 150 mg PO DAILY [facility] Fluticasone Propionate (Fluticasone Propionate 100 Mcg Blst.W.Dev) 1 puff INHALE RBID SAM Glucose (Glucose Gel 15 Gm Gel..Gram.) 15 gm PO Q15M PRN; Protocol PRN Reason: per Hypoglycemia Standing Ord. Lactated Ringer's (Lr) 1,000 mls @ 80 mls/hr IVCONT .[id number] [facility] Insulin Human Lispro (Insulin Lispro 100 Unit/Ml 3 Ml Vial) 0 unit SUBCUT QIDACHS SAM; Protocol Last Admin: 01/27/22 18:58 Dose: 2 unit Documented by: Latanoprost (Latanoprost 0.005 % Ophth Yari 2.5 Ml Drops) 1 drop EYE-BOTH BEDTIM E [facility] Lisinopril (Lisinopril 40 Mg Tablet) 40 mg PO DAILY SAM; Protocol Loratadine (Loratadine 10 Mg Tablet) 10 mg PO DAILY [facility] Metoprolol Succinate (Metoprolol Succinate Er 25 Mg Tab.Er.24h) 25 mg PO DAILY SAM; Protocol Multivitamins/Vitamin C (Multivitamin Tablet) 1 tab PO DAILY [facility] Non-Formulary Medication (Insulin Detemir U-100 [Levemir U-100 Insulin]) 49 unit SUBCUT BEDTIME [facility] Olanzapine (Olanzapine 5 Mg Tablet) 5 mg PO BEDTIME [facility] Omeprazole (Omeprazole 20 Mg Capsule.Dr) 20 mg PO DAILY [facility] Oxybutynin Chloride (Oxybutynin Chloride Er 5 Mg Tab.Er.24) 5 mg PO DAILY [facility] Pharmacy Consult (Consult Rx Perform Med Rec) 1 each MISCELLANE ONCE PRN PRN Reason: Consult order Senna (Sennosides 8.6 Mg Tablet) 8.6 mg PO BEDTIME PRN PRN Reason: Constipation Sodium Chloride (0.9 % Sodium Chloride Flush 3 Ml Syringe) 3 ml IVFLUSH QSHIFT [facility] Tamsulosin HCl (Tamsulosin Hcl 0.4 Mg Capsule) 0.4 mg PO BEDTIME [facility] Trazodone HCl (Trazodone Hcl 100 Mg Tablet) 100 mg PO BEDTIME PRN PRN Reason: Insomnia Trazodone HCl (Trazodone Hcl 100 Mg Tablet) 300 mg PO BEDTIME [facility] Home Medications Medication Instructions Recorded Confirmed Last Taken Type aspirin 81 mg tablet,delayed 81 mg PO DAILY 06/06/20 01/27/22 03/26/21 History release lisinopril 40 mg tablet 40 mg PO DAILY 06/06/20 01/27/22 03/26/21 History metoprolol succinate 25 mg 25 mg PO DAILY 06/06/20 01/27/22 03/26/21 History tablet,extended release 24 hr sennosides 8.6 mg capsule (senna) 8.6 mg PO BEDTIME PRN 06/06/20 01/27/22 Unknown History buprenorphine 8 mg-naloxone 2 mg 1 film SUBLINGUAL BID 12/06/20 01/27/22 03/26/21 History sublingual film amlodipine 10 mg tablet 10 mg PO BEDTIME 03/26/21 01/27/22 03/25/21 History atorvastatin 40 mg tablet 40 mg PO BEDTIME 03/26/21 01/27/22 03/25/21 History dorzolamide 22.3 mg-timolol 6.8 1 drp OPHTHALMIC (EYE) BID 03/26/21 01/27/22 03/26/21 History mg/mL eye drops fluticasone propionate 110 1 puff PO BID PRN 03/26/21 01/27/22 Unknown History mcg/actuation HFA aerosol inhaler (Flovent HFA) glipizide 5 mg tablet, extended 5 mg PO DAILY 03/26/21 01/27/22 03/26/21 History release 24 hr insulin detemir U-100 100 unit/mL 80 unit SUBCUT BEDTIME 03/26/21 01/27/22 03/25/21 History subcutaneous solution (Levemir U-100 Insulin) latanoprost 0.005 % eye drops 1 drp OPHTHALMIC (EYE) BEDTIME 03/26/21 01/27/22 03/25/21 History metformin 1,000 mg tablet 1,000 mg PO BID 03/26/21 01/27/22 03/26/21 History multivitamin-ferrous 1 tab PO DAILY 03/26/21 01/27/22 03/26/21 History fumarate-folic acid 18 mg-400 mcg tablet (Certavite-Antioxidant) olanzapine 5 mg tablet (Zyprexa) 5 mg PO BEDTIME 03/26/21 01/27/22 03/25/21 History omega-3 fatty acids-fish oil 340 1 cap PO TID 03/26/21 01/27/22 03/26/21 History mg-1,000 mg capsule (Fish Oil) peg [id number] 1 1 drp OPHTHALMIC (EYE) QID 03/26/21 01/27/22 03/26/21 History %-0.2 %-0.2 % eye drops (Dry Eye Relief) trazodone 100 mg tablet 100 mg PO BEDTIME PRN 03/26/21 01/27/22 03/25/21 History trazodone 150 mg tablet 300 tab PO BEDTIME 03/26/21 01/27/22 03/25/21 History blood sugar diagnostic (FreeStyle #10 ea 09/11/21 10/23/21 Unknown History Lite Strips) clotrimazole 1 % topical cream 1 appl TOPICAL BID 09/11/21 01/27/22 Unknown History insulin syringe-needle U-100 1 mL #10 ea 09/11/21 10/23/21 Unknown History 31 gauge x 5/16 lancets 33 gauge (TRUEplus Lancets) #100 ea 09/11/21 10/23/21 Unknown History loratadine 10 mg tablet 10 mg PO QAM 09/11/21 01/27/22 Unknown History naproxen 500 mg tablet 1 tab PO BID PRN 01/27/22 01/27/22 Unknown History Physical Exam Vital Signs: Vital Signs: Last Vital Signs Temp 98.3 F 01/27/22 13:05 Pulse 68 01/27/22 14:10 Resp 18 01/27/22 14:10 BP 148/79 H 01/27/22 14:10 Pulse Ox 95 01/27/22 14:10 BMI result Body Mass Index 29.7 Const: General: cooperative, healthy appearing, comfortable, no acute distress, well developed, alert and awake Orientation/consciousness: patient oriented x3 HEENT: Head: Yes normal to inspection, Yes normocephalic and Yes atraumatic Eyes: General: appearance normal, both eyes and all related structures Neck: Neck: Yes normal visual inspection and Yes no lymphadenopathy Resp: Effort & Inspection: normal respiratory effort and able to speak in complete sentences Cardio: Rate: regular rate Peripheral pulses: Peripheral pulses 2+ throughout GI: Inspection: Yes normal to inspection Palpation (GI): Soft to palpation Skin: General skin exam: no rashes or lesions noted Neuro: General: patient oriented x3 Extrem: Other: Left ankle large fracture blister noted on the medial malleolus. Multiple smaller fracture blisters located over the anterior aspect of the ankle. Patient has significant pain with any palpation. No open fracture observed. Sensation is intact. Pedal pulse intact. Psych: Mental Status: mental status grossly normal Results Labs Result Diagrams: 01/27/22 11:19 01/27/22 11:19 Labs: Abnormal lab results 01/27/22 01/27/22 01/27/22 Range/Units 11:19 11:19 11:19 WBC 13.6 H (4.8-10.8) X10*3/uL RBC 3.91 L (4.60-5.80) X10*6/uL Hgb 11.7 L (14.0-18.0) g/dl Hct 34.6 L (42.0-52.0) % Immature Gran % (Auto) 0.9 H (0.0-0.4) % Neut % (Auto) 75.3 H (45-73) % Lymph % (Auto) 15.9 L (20-40) % Abs Immat Gran (auto) 0.12 H (0.00-0.03) X10*3/uL Absolute Neuts (auto) 10.3 H (2.0-8.3) x10*3/uL PT 13.3 H (9.9-13.0) SEC INR 1.2 H (0.9-1.1) Chloride 95 L (96-108) mmol/L BUN 19 H (9-16) mg/dL Random Glucose 127 H D (60-115) mg/dL Magnesium 1.4 L* (1.6-2.6) mg/dL AST 50 H D (5-37) U/L COVID-19 (THANG) (Negative) 01/27/22 Range/Units 11:19 WBC (4.8-10.8) X10*3/uL RBC (4.60-5.80) X10*6/uL Hgb (14.0-18.0) g/dl Hct (42.0-52.0) % Immature Gran % (Auto) (0.0-0.4) % Neut % (Auto) (45-73) % Lymph % (Auto) (20-40) % Abs Immat Gran (auto) (0.00-0.03) X10*3/uL Absolute Neuts (auto) (2.0-8.3) x10*3/uL PT (9.9-13.0) SEC INR (0.9-1.1) Chloride (96-108) mmol/L BUN (9-16) mg/dL Random Glucose (60-115) mg/dL Magnesium (1.6-2.6) mg/dL AST (5-37) U/L COVID-19 (THANG) Positive A (Negative) H & H 01/27/22 Range/Units 11:19 Hgb 11.7 L (14.0-18.0) g/dl Hct 34.6 L (42.0-52.0) % Coagulation 01/27/22 Range/Units 11:19 INR 1.2 H (0.9-1.1) All other labs normal. Assessment and Plan (1) Bimalleolar ankle fracture: Qualifiers: Encounter type: initial encounter Fracture type: closed Laterality: left Qualified Code(s): S82.842A - Displaced bimalleolar fracture of left lower leg, initial encounter for closed fracture Status: Acute Plan I discussed the case with Dr. Lee and explained the extent of the injury to the patient and options available which include surgical intervention. I explained the procedure in detail along with the length of recovery and rehab course. I explained the risk, benefits and alternatives. Risk including, but not limited to infection, blood clots, bleeding, non union or malunion and nerve/tissue damage to surrounding areas. I answered all their questions and with their understanding they have consented to move forward with Operative Fixation of the left ankle. Will monitor skin and one there is a decrease in swelling and skin is optimal for good healing and wound closure will bring the patient to the operating room. The patient will be reassessed and monitored until able to do so. The patient has currently been admitted to the medicine team for preoperative pain management and medical clearance for surgery. Procedures Date of Service Date of Service: 01/27/22
[2022-01-27] MEDS: Lactated Ringers 1,000 ML 80 ML IVCONT (20:21)
[2022-01-27] MEDS: OLANZapine 5 MG TABLET PO (20:22)
[2022-01-27] MEDS: Loratadine 10 MG TABLET PO (20:22)
[2022-01-27] MEDS: amLODIPine Besylate 10 MG TABLET PO (20:22)
[2022-01-27] MEDS: Atorvastatin Calcium 40 MG TABLET PO (20:22)
[2022-01-27] MEDS: Morphine Sulfate 2 MG/ML CARTRIDGE IVPUSH (20:22)
[2022-01-27] MEDS: traZODone HCL 100 MG TABLET 300 MG PO (20:22)
[2022-01-27] MEDS: Tamsulosin HCL 0.4 MG CAPSULE PO (20:22)
[2022-01-27] MEDS: Buprenorphine/Naloxone 8/2 mg FILM 1 FILM SUBLINGUAL (20:27)
[2022-01-27] MEDS: Fluticasone Propionate 100 MCG BLST.W.DEV 1 PUFF INHALE (20:47)
[2022-01-27 21:43] LABS: Glucose, Whole Blood 199 mg/dL (60-115)
[2022-01-27 21:43] LABS: Glucose, Whole Blood 273 mg/dL (60-115)
[2022-01-27] MEDS: Latanoprost 0.005 % Ophth Sol 2.5 ML DROPS 1 DROP EYE-BOTH (22:15)
[2022-01-27] MEDS: Dorzolamide/Timolo 2.23%/0.68% 10 ML DRBTL 1 DROP EYE-BOTH (22:15)
[2022-01-27] MEDS: Clotrimazole 1 % Cream 15 GM TUBE 1 APPL TOPICAL (22:17)
--- NOTE | 2022-01-27 22:20 | PC.NURSE ---
pt left leg tender to touch, pt assisted to sit upright for h/s snack, pt refusing to elevate extremity with pillow
[2022-01-27] MEDS: Insulin Glargine,Hum.rec.anlog 100 UNIT/ML 10 ML VIAL 49 UNIT SUBCUT (22:27)
--- NOTE | 2022-01-27 22:39 | PC.NURSE ---
pt asking for extremity to be elevated, Tech assisted pt with elevation of extremity
--- NOTE | 2022-01-27 22:40 | PC.NURSE ---
pt refused sandwich, given water and luis enrique crackers
--- NOTE | 2022-01-27 22:41 | PC.NURSE ---
blister to LLE intact, LLE painful to touch
[2022-01-28] VITALS (8 sets, daily range): BP systolic 150–165; BP diastolic 61–93; PULSE 68–95; RESP 14–18; TEMP 36.4–36.9; O2SAT 94–98
--- NOTE | 2022-01-28 06:31 | PC.NURSE ---
pt stating that he needs to have a BM, pt offered bedpan since he has fx ankle, pt adamently refused for Tech, this RN told pt that he cannot get up since he has an jose fracture. pt refusing to listen states that he wants a wheelchair and to go the BR. pt was explained that he is infectious and needs to remain isolated in room. pt states he was able to stand and pivot to w/c yesterday without bearing wt on left foot. pt allowed to stand and pivot to bedside commode without bearing wt. while transferring, the fluid filled blister burst and spilled on the floor. [place] notified. blister wrapped in [employer]
[2022-01-28] MEDS: Morphine Sulfate 2 MG/ML CARTRIDGE IVPUSH ×5 (06:46→22:03)
[2022-01-28 07:09] LABS: Glucose, Whole Blood 199 mg/dL (60-115)
[2022-01-28 07:32] LABS: Hematocrit 33.6 % (42.0-52.0); Hemoglobin 11.7 g/dl (14.0-18.0); Mean Corpuscular HGB Conc 34.8 g/dl (31.0-36.0); Mean Corpuscular Hemoglobin 31.2 pg (27.0-33.0); Mean Corpuscular Volume 89.6 fL (80.0-98.0); Mean Platelet Volume 9.5 fL (9.4-12.4); Platelet Count 281 X10*3/uL (160-400); Red Blood Count 3.75 X10*6/uL (4.60-5.80); Red Cell Distribution Width 12.4 % (11.0-16.0); White Blood Count 11.4 X10*3/uL (4.8-10.8)
[2022-01-28] MEDS: Fluticasone Propionate 100 MCG BLST.W.DEV 1 PUFF INHALE (07:39)
[2022-01-28] MEDS: Insulin Lispro 100 UNIT/ML 3 ML VIAL SUBCUT ×3 (07:43→19:02)
[2022-01-28 07:56] LABS: Anion Gap 12 (12-20); Blood Urea Nitrogen 11 mg/dL (9-16); Calcium 9.2 mg/dL (8.4-10.2); Carbon Dioxide 31 mmol/L (22-29); Chloride 97 mmol/L (96-108); Creatinine Clr Calc Pharmacy 91.9; Estimated Glomerular Filt Rate > 60; Glucose Random 197 mg/dL (60-115); Potassium 3.4 mmol/L (3.3-5.1); Sodium 137 mmol/L (135-145)
[2022-01-28 09:56] LABS: Magnesium 1.6 mg/dL (1.6-2.6)
[2022-01-28] MEDS: Multivitamin TABLET 1 TAB PO (10:19)
[2022-01-28] MEDS: Ferrous Sulfate 300 MG/5 ML LIQUID 150 MG PO (10:19)
[2022-01-28] MEDS: Aspirin Enteric Coated 81 MG TABLET.DR PO (10:19)
[2022-01-28] MEDS: Loratadine 10 MG TABLET PO (10:19)
[2022-01-28] MEDS: lisinopriL 40 MG TABLET PO (10:19)
[2022-01-28] MEDS: Lactated Ringers 1,000 ML 80 ML IVCONT (10:21)
[2022-01-28] MEDS: Metoprolol Succinate ER 25 MG TAB.ER.24H PO (10:22)
[2022-01-28] MEDS: Omeprazole 20 MG CAPSULE.DR PO (10:22)
[2022-01-28] MEDS: Buprenorphine/Naloxone 8/2 mg FILM 1 FILM SUBLINGUAL ×2 (10:28→20:56)
--- NOTE | 2022-01-28 12:49 | HO.PM.IMPN ---
Subjective Subjective Date of Service: 01/28/22 Interval History: ankle fracture, hemorrhagic blister on the ankle, covid positive Review of Systems patient still says in significant intractable pain denies any chest pain or shortness of breath or abdominal pain or cough or phlegm or fever or chills. Physical Exam Vital Signs: Vital Signs: Last Vital Signs Temp 97.9 F 01/28/22 06:07 Pulse 95 01/28/22 07:40 Resp 18 01/28/22 07:40 BP 150/76 H 01/28/22 06:07 Pulse Ox 94 01/28/22 06:07 BMI result Body Mass Index 29.7 Appearance: Alert.? Oriented X3.?still pain.? cvs: rrr, [id number] res: clear to auscultation ,no rhonchii or wheezing abd: no rebound or guarding ,nt, bs present. ext pulses present , no cyanosis ,? Left ankle swelling and also has big blister on the medial side. neuro: axo3 , nonfocal Objective Data Active Medications Amlodipine Besylate (Amlodipine Besylate 10 Mg Tablet) 10 mg PO BEDTIME [facility]; Protocol Last Admin: 01/27/22 20:22 Dose: 10 mg Documented by: GUSTABO Artificial Tears (Artificial Tears 15 Ml Drops) 1 drop EYE-BOTH QID PRN PRN Reason: DRY EYES Aspirin (Aspirin Enteric Coated 81 Mg Tablet.) 81 mg PO DAILY [facility] Last Admin: 01/28/22 10:19 Dose: 81 mg Documented by: NGUYEN Atorvastatin Calcium (Atorvastatin Calcium 40 Mg Tablet) 40 mg PO BEDTIME [facility] Last Admin: 01/27/22 20:22 Dose: 40 mg Documented by: GUSTABO Buprenorphine/Naloxone (Buprenorphine/Naloxone 8/2 Mg Film) 1 film SUBLINGUAL BID [facility] Last Admin: 01/28/22 10:28 Dose: 1 film Documented by: NGUYEN Clotrimazole (Clotrimazole 1 % Cream 15 Gm Tube) 1 appl TOPICAL BID [facility]; Protocol Last Admin: 01/28/22 10:29 Dose: Not Given Documented by: NGUYEN Non-Admin Reason: Med Not Available Dextrose (Dextrose 50 % 25 Gm/50 Ml Syringe) 25 gm IVPUSH Q15M PRN; Protocol PRN Reason: per Hypoglycemia Standing Ord. Docusate Sodium (Docusate Sodium 100 Mg Capsule) 100 mg PO BEDTIME [facility] Last Admin: 01/27/22 22:16 Dose: Not Given Documented by: GUSTABO Non-Admin Reason: Patient Refused Dorzolamide/Timolol (Dorzolamide/Timolo 2.23%/0.68% 10 Ml Drbtl) 1 drop EYE-BOTH BID [facility] Last Admin: 01/28/22 10:29 Dose: Not Given Documented by: NGUYEN Non-Admin Reason: Med Not Available Ferrous Sulfate (Ferrous Sulfate 300 Mg/5 Ml Liquid) 150 mg PO DAILY [facility] Last Admin: 01/28/22 10:19 Dose: 150 mg Documented by: NGUYEN Fluticasone Propionate (Fluticasone Propionate 100 Mcg Blst.W.Dev) 1 puff INHALE RBID [facility] Last Admin: 01/28/22 07:39 Dose: 1 puff Documented by: TAD Glucose (Glucose Gel 15 Gm Gel..Gram.) 15 gm PO Q15M PRN; Protocol PRN Reason: per Hypoglycemia Standing Ord. Lactated Ringer's (Lr) 1,000 mls @ 80 mls/hr IVCONT .[id number] [facility] Last Admin: 01/28/22 10:21 Dose: 80 mls/hr Documented by: NGUYEN Insulin Glargine (Insulin Glargine,Hum.Rec.Anlog 100 Unit/Ml 10 Ml Vial) 49 unit SUBCUT BEDTIME [facility] Last Admin: 01/27/22 22:27 Dose: 49 unit Documented by: GUSTABO Insulin Human Lispro (Insulin Lispro 100 Unit/Ml 3 Ml Vial) 0 unit SUBCUT QIDACHS [facility]; Protocol Last Admin: 01/28/22 07:43 Dose: 2 unit Documented by: NGUYEN Latanoprost (Latanoprost 0.005 % Ophth Yari 2.5 Ml Drops) 1 drop EYE-BOTH BEDTIME [facility] Last Admin: 01/27/22 22:15 Dose: 1 drop Documented by: GUSTABO Lisinopril (Lisinopril 40 Mg Tablet) 40 mg PO DAILY [facility]; Protocol Last Admin: 01/28/22 10:19 Dose: 40 mg Documented by: NGUYEN Loratadine (Loratadine 10 Mg Tablet) 10 mg PO DAILY [facility] Last Admin: 01/28/22 10:19 Dose: 10 mg Documented by: NGUYEN Metoprolol Succinate (Metoprolol Succinate Er 25 Mg Tab.Er.24h) 25 mg PO DAILY [facility]; Protocol Last Admin: 01/28/22 10:22 Dose: 25 mg Documented by: NGUYEN Morphine Sulfate (Morphine Sulfate 2 Mg/Ml Cartridge) 2 mg IVPUSH Q3H PRN; Protocol PRN Reason: Pain, Mild (Pain Scale 1-3) Last Admin: 01/28/22 06:46 Dose: 2 mg Documented by: GUSTABO Multivitamins/Vitamin C (Multivitamin Tablet) 1 tab PO DAILY [facility] Last Admin: 01/28/22 10:19 Dose: 1 tab Documented by: NGUYEN Olanzapine (Olanzapine 5 Mg Tablet) 5 mg PO BEDTIME [facility] Last Admin: 01/27/22 20:22 Dose: 5 mg Documented by: GUSTABO Omeprazole (Omeprazole 20 Mg Capsule.Dr) 20 mg PO DAILY [facility] Last Admin: 01/28/22 10:22 Dose: 20 mg Documented by: NGUYEN Oxybutynin Chloride (Oxybutynin Chloride Er 5 Mg Tab.Er.24) 5 mg PO DAILY [facility] Last Admin: 01/28/22 10:20 Dose: 5 mg Documented by: NGUYEN Pharmacy Consult (Consult Rx Perform Med Rec) 1 each MISCELLANE ONCE PRN PRN Reason: Consult order Senna (Sennosides 8.6 Mg Tablet) 8.6 mg PO BEDTIME PRN PRN Reason: Constipation Sodium Chloride (0.9 % Sodium Chloride Flush 3 Ml Syringe) 3 ml IVFLUSH QSHIFT [facility] Last Admin: 01/28/22 09:48 Dose: Not Given Documented by: NGUYEN Non-Admin Reason: IV Running Tamsulosin HCl (Tamsulosin Hcl 0.4 Mg Capsule) 0.4 mg PO BEDTIME [facility] Last Admin: 01/27/22 20:22 Dose: 0.4 mg Documented by: GUSTABO Trazodone HCl (Trazodone Hcl 100 Mg Tablet) 100 mg PO BEDTIME PRN PRN Reason: Insomnia Trazodone HCl (Trazodone Hcl 100 Mg Tablet) 300 mg PO BEDTIME [facility] Last Admin: 01/27/22 20:22 Dose: 300 mg Documented by: GUSTABO Labs CBC & Chem 7: 01/28/22 07:26 01/28/22 07:26 Labs: Laboratory Results - last 24 hr 01/27/22 01/27/22 01/28/22 18:34 21:23 07:04 MCV MCH MCHC RDW Plt Count MPV Absolute Nucleated RBC Nucleated RBC % (auto) Anion Gap Estim Creat Clear Calc Estimated GFR POC Glucose 199 H 273 H 199 H Random Glucose Calcium Magnesium 01/28/22 01/28/22 07:26 07:26 MCV 89.6 MCH 31.2 MCHC 34.8 RDW 12.4 Plt Count 281 MPV 9.5 Absolute Nucleated RBC 0.000 Nucleated RBC % (auto) 0.0 Anion Gap 12 Estim Creat Clear Calc 91.9 Estimated GFR > 60 POC Glucose Random Glucose 197 H D Calcium 9.2 Magnesium 1.6 Assessment and Plan (1) COVID-19: Status: Acute (2) Bimalleolar ankle fracture: Status: Acute Plan 71 y/O M? with history of asthma, hypertension, hyperlipidemia, diabetes mellitus, opioid use,? possiblehistory of genital herpes, history of pneumonia. ?left ankle fracture: ?pain control ?incentive spirometry, bowel regimen htn: seems? acceptable ?continue home medications diabetes: ? Diabetic diet, fingersticks with coverage ?hyperlipidemia:? Continue statin ?opioid use:? Continue Suboxone. ?hypomagnesemia: Repleted, normal ,added mag replacements covid posiive : asymptomatic, monitor id eval- no further treatment currently. ?DVT prophylaxis:? mechanical devices inpatient : ankle fracture, COVID Quality Stroke Does the patient have a stroke diagnosis?: No VTE Prior VTE?: No VTE Risk Level:: Medical - moderate - high VTE Device Contraindication: N/A - Device Ordered VTE Drug Contraindication: N/A - Med Ordered
[2022-01-28 12:56] LABS: Glucose, Whole Blood 167 mg/dL (60-115)
--- NOTE | 2022-01-28 12:59 | P.CNID_ITS ---
History of Present Illness Data of Consult Service Date: 01/28/22 Requesting physician: Kristian Frank Primary Care Provider: Jax Moe MD HPI Reason for consult: COVID ,asymptomatic He presents to hospital after fall resulting in left trimalleolar fracture. He has no symptoms of cough or fever. He has positive COVID test. Review of Systems Review of Systems: Yes all other systems are reviewed and are negative [facility] Past Medical History Medical History Anxiety CAD (coronary artery disease) Chronic constipation COPD (chronic obstructive pulmonary disease) Diabetes mellitus Genital herpes GERD (gastroesophageal reflux disease) History of adenomatous polyp of colon Hypertension Opioid dependence on agonist therapy JAUN (obstructive sleep apnea) Pancreatic abnormality Prepatellar bursitis, left knee Family History Family History Mother No problems noted. Father Liver cancer Family history: reviewed and not pertinent Surgical History Surgical History No history of previous surgery Social History Social History Alcohol intake: never Patient Tobacco Use Status: Current someday Tobacco user Advance Directives: Yes Advance Directives on File: Yes Advance Directives Date on File: 01/28/22 service: No Current occupational status: retired and disabled Current occupation: right handed Meds Allergies Allergy/AdvReac Type Severity Reaction Status Date / Time No Known Allergies Allergy Verified 01/27/22 11:10 Active Medications: Current Medications Amlodipine Besylate (Amlodipine Besylate 10 Mg Tablet) 10 mg PO BEDTIME [facility]; Protocol Last Admin: 01/27/22 20:22 Dose: 10 mg Documented by: Artificial Tears (Artificial Tears 15 Ml Drops) 1 drop EYE-BOTH QID PRN PRN Reason: DRY EYES Aspirin (Aspirin Enteric Coated 81 Mg Tablet.) 81 mg PO DAILY [facility] Last Admin: 01/28/22 10:19 Dose: 81 mg Documented by: Atorvastatin Calcium (Atorvastatin Calcium 40 Mg Tablet) 40 mg PO BEDTIME [facility] Last Admin: 01/27/22 20:22 Dose: 40 mg Documented by: Buprenorphine/Naloxone (Buprenorphine/Naloxone 8/2 Mg Film) 1 film SUBLINGUAL BID [facility] Last Admin: 01/28/22 10:28 Dose: 1 film Documented by: Clotrimazole (Clotrimazole 1 % Cream 15 Gm Tube) 1 appl TOPICAL BID [facility]; Protocol Last Admin: 01/28/22 10:29 Dose: Not Given Documented by: Dextrose (Dextrose 50 % 25 Gm/50 Ml Syringe) 25 gm IVPUSH Q15M PRN; Protocol PRN Reason: per Hypoglycemia Standing Ord. Docusate Sodium (Docusate Sodium 100 Mg Capsule) 100 mg PO BEDTIME [facility] Last Admin: 01/27/22 22:16 Dose: Not Given Documented by: Dorzolamide/Timolol (Dorzolamide/Timolo 2.23%/0.68% 10 Ml Drbtl) 1 drop EYE- BOTH BID [facility] Last Admin: 01/28/22 10:29 Dose: Not Given Documented by: Ferrous Sulfate (Ferrous Sulfate 300 Mg/5 Ml Liquid) 150 mg PO DAILY [facility] Last Admin: 01/28/22 10:19 Dose: 150 mg Documented by: Fluticasone Propionate (Fluticasone Propionate 100 Mcg Blst.W.Dev) 1 puff IN [place] RBID [facility] Last Admin: 01/28/22 07:39 Dose: 1 puff Documented by: Glucose (Glucose Gel 15 Gm Gel..Gram.) 15 gm PO Q15M PRN; Protocol PRN Reason: per Hypoglycemia Standing Ord. Lactated Ringer's (Lr) 1,000 mls @ 80 mls/hr IVCONT .[id number] [facility] Last Admin: 01/28/22 10:21 Dose: 80 mls/hr Documented by: Insulin Glargine (Insulin Glargine,Hum.Rec.Anlog 100 Unit/Ml 10 Ml Vial) 49 unit SUBCUT BEDTIME [facility] Last Admin: 01/27/22 22:27 Dose: 49 unit Documented by: Insulin Human Lispro (Insulin Lispro 100 Unit/Ml 3 Ml Vial) 0 unit SUBCUT QIDACHS [facility]; Protocol Last Admin: 01/28/22 07:43 Dose: 2 unit Documented by: Latanoprost (Latanoprost 0.005 % Ophth Yari 2.5 Ml Drops) 1 drop EYE-BOTH BEDTIME [facility] Last Admin: 01/27/22 22:15 Dose: 1 drop Documented by: Lisinopril (Lisinopril 40 Mg Tablet) 40 mg PO DAILY [facility]; Protocol Last Admin: 01/28/22 10:19 Dose: 40 mg Documented by: Loratadine (Loratadine 10 Mg Tablet) 10 mg PO DAILY [facility] Last Admin: 01/28/22 10:19 Dose: 10 mg Documented by: Magnesium Oxide (Magnesium Oxide 400 Mg Tablet) 400 mg PO BIDPC [facility] Metoprolol Succinate (Metoprolol Succinate Er 25 Mg Tab.Er.24h) 25 mg PO DAILY [facility]; Protocol Last Admin: 01/28/22 10:22 Dose: 25 mg Documented by: Morphine Sulfate (Morphine Sulfate 2 Mg/Ml Cartridge) 2 mg IVPUSH Q3H PRN; Protocol PRN Reason: Pain, Mild (Pain Scale 1-3) Last Admin: 01/28/22 06:46 Dose: 2 mg Documented by: Multivitamins/Vitamin C (Multivitamin Tablet) 1 tab PO DAILY [facility] Last Admin: 01/28/22 10:19 Dose: 1 tab Documented by: Olanzapine (Olanzapine 5 Mg Tablet) 5 mg PO BEDTIME [facility] Last Admin: 01/27/22 20:22 Dose: 5 mg Documented by: Omeprazole (Omeprazole 20 Mg Capsule.Dr) 20 mg PO DAILY [facility] Last Admin: 01/28/22 10:22 Dose: 20 mg Documented by: Oxybutynin Chloride (Oxybutynin Chloride Er 5 Mg Tab.Er.24) 5 mg PO DAILY [facility] Last Admin: 01/28/22 10:20 Dose: 5 mg Documented by: Pharmacy Consult (Consult Rx Perform Med Rec) 1 each MISCELLANE ONCE PRN PRN Reason: Consult order Senna (Sennosides 8.6 Mg Tablet) 8.6 mg PO BEDTIME PRN PRN Reason: Constipation Sodium Chloride (0.9 % Sodium Chloride Flush 3 Ml Syringe) 3 ml IVFLUSH QSHIFT [facility] Last Admin: 01/28/22 09:48 Dose: Not Given Documented by: Tamsulosin HCl (Tamsulosin Hcl 0.4 Mg Capsule) 0.4 mg PO BEDTIME [facility] Last Admin: 01/27/22 20:22 Dose: 0.4 mg Documented by: Trazodone HCl (Trazodone Hcl 100 Mg Tablet) 100 mg PO BEDTIME PRN PRN Reason: Insomnia Trazodone HCl (Trazodone Hcl 100 Mg Tablet) 300 mg PO BEDTIME [facility] Last Admin: 01/27/22 20:22 Dose: 300 mg Documented by: Home Medications Medication Instructions Recorded Confirmed Last Taken Type aspirin 81 mg tablet,delayed 81 mg PO DAILY 06/06/20 01/27/22 03/26/21 History release lisinopril 40 mg tablet 40 mg PO DAILY 06/06/20 01/27/22 03/26/21 History metoprolol succinate 25 mg 25 mg PO DAILY 06/06/20 01/27/22 03/26/21 History tablet,extended release 24 hr sennosides 8.6 mg capsule (senna) 8.6 mg PO BEDTIME PRN 06/06/20 01/27/22 Unknown History buprenorphine 8 mg-naloxone 2 mg 1 film SUBLINGUAL BID 12/06/20 01/27/22 03/26/21 History sublingual film amlodipine 10 mg tablet 10 mg PO BEDTIME 03/26/21 01/27/22 03/25/21 History atorvastatin 40 mg tablet 40 mg PO BEDTIME 03/26/21 01/27/22 03/25/21 History dorzolamide 22.3 mg-timolol 6.8 1 drp OPHTHALMIC (EYE) BID 03/26/21 01/27/22 03/26/21 History mg/mL eye drops fluticasone propionate 110 1 puff PO BID PRN 03/26/21 01/27/22 Unknown History mcg/actuation HFA aerosol inhaler (Flovent HFA) glipizide 5 mg tablet, extended 5 mg PO DAILY 03/26/21 01/27/22 03/26/21 History release 24 hr insulin detemir U-100 100 unit/mL 80 unit SUBCUT BEDTIME 03/26/21 01/27/22 03/25/21 History subcutaneous solution (Levemir U-100 Insulin) latanoprost 0.005 % eye drops 1 drp OPHTHALMIC (EYE) BEDTIME 03/26/21 01/27/22 03/25/21 History metformin 1,000 mg tablet 1,000 mg PO BID 03/26/21 01/27/22 03/26/21 History multivitamin-ferrous 1 tab PO DAILY 03/26/21 01/27/22 03/26/21 History fumarate-folic acid 18 mg-400 mcg tablet (Certavite-Antioxidant) olanzapine 5 mg tablet (Zyprexa) 5 mg PO BEDTIME 03/26/21 01/27/22 03/25/21 H istory omega-3 fatty acids-fish oil 340 1 cap PO TID 03/26/21 01/27/22 03/26/21 History mg-1,000 mg capsule (Fish Oil) peg [id number] 1 1 drp OPHTHALMIC (EYE) QID 03/26/21 01/27/22 03/26/21 History %-0.2 %-0.2 % eye drops (Dry Eye Relief) trazodone 100 mg tablet 100 mg PO BEDTIME PRN 03/26/21 01/27/22 03/25/21 History trazodone 150 mg tablet 300 tab PO BEDTIME 03/26/21 01/27/22 03/25/21 History blood sugar diagnostic (FreeStyle #10 ea 09/11/21 10/23/21 Unknown History Lite Strips) clotrimazole 1 % topical cream 1 appl TOPICAL BID 09/11/21 01/27/22 Unknown History insulin syringe-needle U-100 1 mL #10 ea 09/11/21 10/23/21 Unknown History 31 gauge x 5/16 lancets 33 gauge (TRUEplus Lancets) #100 ea 09/11/21 10/23/21 Unknown History loratadine 10 mg tablet 10 mg PO QAM 09/11/21 01/27/22 Unknown History naproxen 500 mg tablet 1 tab PO BID PRN 01/27/22 01/27/22 Unknown History Physical Exam Vital Signs: Vital Signs: Last Vital Signs Temp 98.5 F 01/28/22 12:52 Pulse 71 01/28/22 12:52 Resp 14 01/28/22 12:52 BP 154/79 H 01/28/22 12:52 Pulse Ox 95 01/28/22 12:52 BMI result Body Mass Index 29.7 Const: General: cooperative Eyes: General: appearance normal, both eyes and all related structures Resp: Effort & Inspection: normal respiratory effort Cardio: Rate: regular rate Rhythm: regular rhythm GI: Palpation (GI): Soft to palpation and nontender Extrem: General: Yes normal to inspection Results Labs CBC & Chem 7: 01/28/22 07:26 06/01/22 07:26 Labs: Short CBC 01/28/22 Range/Units 07:26 WBC 11.4 H (4.8-10.8) X10*3/uL Hgb 11.7 L (14.0-18.0) g/dl Hct 33.6 L (42.0-52.0) % Plt Count 281 (160-400) X10*3/uL BMP 01/28/22 07:26 Sodium 137 Potassium 3.4 Chloride 97 Carbon Dioxide 31 H BUN 11 Creatinine 0.75 Calcium 9.2 Assessment and Plan (1) Bimalleolar ankle fracture: Qualifiers: Encounter type: initial encounter Fracture type: closed Laterality: left Qualified Code(s): S82.842A - Displaced bimalleolar fracture of left lower leg, initial encounter for closed fracture Status: Acute (2) COVID-19: Status: Acute He is asymptomatic and not on oxygen. His COVID is of unknown duration. Plan Would not give any COVID treatment at this time
[2022-01-28 17:23] LABS: Glucose, Whole Blood 247 mg/dL (60-115)
[2022-01-28] MEDS: Magnesium Oxide 400 MG TABLET PO (19:02)
--- NOTE | 2022-01-28 20:01 | PC.NURSE ---
pt requesting medication for pain, pt PRN morphine not due until 20:20, per MD okay to give prn Morphine early.
--- NOTE | 2022-01-28 20:35 | PC.NURSE ---
this RN attempt to medicate pt with 9pm meds, pt states, they told me I was supposed to go upstairs but they haven't taken me yet this RN educates pt that he is admitted but there is not a bed ready yet, pt states he would like to leave AMA. made aware.
[2022-01-28] MEDS: HYDROmorphone HCl 0.5 MG/0.5 ML SYRINGE IVPUSH (20:54)
[2022-01-28] MEDS: OLANZapine 5 MG TABLET PO (20:55)
[2022-01-28] MEDS: Tamsulosin HCL 0.4 MG CAPSULE PO (20:56)
[2022-01-28] MEDS: Atorvastatin Calcium 40 MG TABLET PO (20:56)
[2022-01-28] MEDS: traZODone HCL 100 MG TABLET 300 MG PO (20:56)
[2022-01-28] MEDS: amLODIPine Besylate 10 MG TABLET PO (20:56)
[2022-01-28 21:03] LABS: Glucose, Whole Blood 182 mg/dL (60-115)
--- NOTE | 2022-01-28 21:13 | MHC.CM.PN ---
CM attempted to meet with admitted patient with bed assignment pending. Pt sleeping soundly. Did not respond to voice. Will try again later. CM to follow for d/c needs.
[2022-01-28] MEDS: Dorzolamide/Timolo 2.23%/0.68% 10 ML DRBTL 1 DROP EYE-BOTH (21:23)
[2022-01-28] MEDS: Latanoprost 0.005 % Ophth Sol 2.5 ML DROPS 1 DROP EYE-BOTH (21:23)
[2022-01-28 22:05] LABS: Glucose, Whole Blood 178 mg/dL (60-115)
[2022-01-28] MEDS: Insulin Glargine,Hum.rec.anlog 100 UNIT/ML 10 ML VIAL 49 UNIT SUBCUT (22:35)
--- NOTE | 2022-01-28 22:40 | PC.NURSE ---
Pt given luis enrique cracker and cranberry juice with is Guccitus at administration by Alphonso OLIVARES.
[2022-01-29] MEDS: Morphine Sulfate 2 MG/ML CARTRIDGE IVPUSH ×5 (02:31→19:17)
[2022-01-29 02:55] LABS: Glucose, Whole Blood 155 mg/dL (60-115)
[2022-01-29] MEDS: Lactated Ringers 1,000 ML 80 ML IVCONT (04:33)
[2022-01-29 07:37] LABS: Glucose, Whole Blood 210 mg/dL (60-115)
[2022-01-29 08:00] VITALS: BP 151/84; PULSE 73; RESP 18; O2SAT 94
[2022-01-29] MEDS: Fluticasone Propionate 100 MCG BLST.W.DEV 1 PUFF INHALE ×2 (08:17→20:52)
[2022-01-29 08:30] VITALS: PULSE 90; RESP 20; O2SAT 94
[2022-01-29] MEDS: Magnesium Oxide 400 MG TABLET PO ×2 (08:38→16:23)
[2022-01-29] MEDS: Multivitamin TABLET 1 TAB PO (08:38)
[2022-01-29] MEDS: Loratadine 10 MG TABLET PO (08:38)
[2022-01-29] MEDS: Aspirin Enteric Coated 81 MG TABLET.DR PO (08:38)
[2022-01-29] MEDS: lisinopriL 40 MG TABLET PO (08:38)
[2022-01-29] MEDS: Buprenorphine/Naloxone 8/2 mg FILM 1 FILM SUBLINGUAL ×2 (08:39→19:51)
[2022-01-29] MEDS: Insulin Lispro 100 UNIT/ML 3 ML VIAL SUBCUT ×2 (08:39→18:23)
[2022-01-29] MEDS: Metoprolol Succinate ER 25 MG TAB.ER.24H PO (08:39)
[2022-01-29] MEDS: Omeprazole 20 MG CAPSULE.DR PO (08:39)
[2022-01-29] MEDS: 0.9 % Sodium Chloride Flush 3 ML SYRINGE IVFLUSH (08:39)
--- NOTE | 2022-01-29 08:40 | PM.EVENT ---
Event Note Date of Service: 01/29/22 Event Note: Patient was placed in a short leg posterior splint yesterday. Plan is to continue pain management and monitor skin for any signs of breakdown or infection. Monitor skin quality and edema to plan for surgical intervention.
--- NOTE | 2022-01-29 08:56 | P.PNIM_ITS ---
Subjective Subjective Date of Service: 01/29/22 Interval History: ankle fx ,covid positive Review of Systems Patient still has foot pain, denies any chest pain or shortness of breath or abdominal pain or fever chills or cough or phlegm. Physical Exam Vital Signs: Vital Signs: Last Vital Signs Temp 98.4 F 01/28/22 19:56 Pulse 90 01/29/22 08:30 Resp 20 01/29/22 08:30 BP 151/84 H 01/29/22 08:00 Pulse Ox 94 01/29/22 08:00 BMI result Body Mass Index 29.7 Appearance: Alert.? Oriented X3.?still pain.? cvs: rrr, [id number] res: clear to auscultation ,no rhonchii or wheezing abd: no rebound or guarding ,nt, bs present. ext pulses present , no cyanosis ,? Left ankle swelling and also has big blister on the medial side. neuro: axo3 , nonfocal Objective Data Active Medications Amlodipine Besylate (Amlodipine Besylate 10 Mg Tablet) 10 mg PO BEDTIME [facility]; Protocol Last Admin: 01/28/22 20:56 Dose: 10 mg Documented by: LISSETTE Artificial Tears (Artificial Tears 15 Ml Drops) 1 drop EYE-BOTH QID PRN PRN Reason: DRY EYES Aspirin (Aspirin Enteric Coated 81 Mg Tablet.) 81 mg PO DAILY [facility] Last Admin: 01/29/22 08:38 Dose: 81 mg Documented by: VU Atorvastatin Calcium (Atorvastatin Calcium 40 Mg Tablet) 40 mg PO BEDTIME [facility] Last Admin: 01/28/22 20:56 Dose: 40 mg Documented by: LISSETTE Buprenorphine/Naloxone (Buprenorphine/Naloxone 8/2 Mg Film) 1 film SUBLINGUAL BID [facility] Last Admin: 01/29/22 08:39 Dose: 1 film Documented by: VU Clotrimazole (Clotrimazole 1 % Cream 15 Gm Tube) 1 appl TOPICAL BID [facility]; Protocol Last Admin: 01/28/22 22:47 Dose: Not Given Documented by: LEANDRO Non-Admin Reason: Med Not Available Dextrose (Dextrose 50 % 25 Gm/50 Ml Syringe) 25 gm IVPUSH Q15M PRN; Protocol PRN Reason: per Hypoglycemia Standing Ord. Docusate Sodium (Docusate Sodium 100 Mg Capsule) 100 mg PO BEDTIME [facility] Last Admin: 01/28/22 21:31 Dose: Not Given Documented by: LISSETTE Non-Admin Reason: Patient Refused Dorzolamide/Timolol (Dorzolamide/Timolo 2.23%/0.68% 10 Ml Drbtl) 1 drop EYE- BOTH BID [facility] Last Admin: 01/28/22 21:23 Dose: 1 drop Documented by: LISSETTE Ferrous Sulfate (Ferrous Sulfate 300 Mg/5 Ml Liquid) 150 mg PO DAILY [facility] Last Admin: 01/28/22 10:19 Dose: 150 mg Documented by: NGUYEN Fluticasone Propionate (Fluticasone Propionate 100 Mcg Blst.W.Dev) 1 puff [place] RBID [facility] Last Admin: 01/29/22 08:17 Dose: 1 puff Documented by: GLUGABINO Glucose (Glucose Gel 15 Gm Gel..Gram.) 15 gm PO Q15M PRN; Protocol PRN Reason: per Hypoglycemia Standing Ord. Hydromorphone HCl (Hydromorphone Hcl 0.5 Mg/0.5 Ml Syringe) 0.5 mg IVPUSH Q4H PRN; Protocol PRN Reason: Pain, Severe (Pain Scale 7-10) Last Admin: 01/28/22 20:54 Dose: 0.5 mg Documented by: LISSETTE Lactated Ringer's (Lr) 1,000 mls @ 80 mls/hr IVCONT .[id number] [facility] Last Admin: 01/29/22 04:33 Dose: 80 mls/hr Documented by: LEANDRO Insulin Glargine (Insulin Glargine,Hum.Rec.Anlog 100 Unit/Ml 10 Ml Vial) 49 unit SUBCUT BEDTIME [facility] Last Admin: 01/28/22 22:35 Dose: 49 unit Documented by: LEANDRO Insulin Human Lispro (Insulin Lispro 100 Unit/Ml 3 Ml Vial) 0 unit SUBCUT QIDACHS [facility]; Protocol Last Admin: 01/29/22 08:39 Dose: 4 unit Documented by: VU Latanoprost (Latanoprost 0.005 % Ophth Yari 2.5 Ml Drops) 1 drop EYE-BOTH BEDTIME [facility] Last Admin: 01/28/22 21:23 Dose: 1 drop Documented by: LISSETTE Loratadine (Loratadine 10 Mg Tablet) 10 mg PO DAILY [facility] Last Admin: 01/29/22 08:38 Dose: 10 mg Documented by: VU Magnesium Oxide (Magnesium Oxide 400 Mg Tablet) 400 mg PO BIDPC [facility] Last Admin: 01/29/22 08:38 Dose: 400 mg Documented by: VU Metoprolol Succinate (Metoprolol Succinate Er 25 Mg Tab.Er.24h) 25 mg PO DAILY [facility]; Protocol Last Admin: 01/29/22 08:39 Dose: 25 mg Documented by: VU Morphine Sulfate (Morphine Sulfate 2 Mg/Ml Cartridge) 2 mg IVPUSH Q3H PRN; Protocol PRN Reason: Pain, Mild (Pain Scale 1-3) Last Admin: 01/29/22 08:33 Dose: 2 mg Documented by: VU Multivitamins/Vitamin C (Multivitamin Tablet) 1 tab PO DAILY [facility] Last Admin: 01/29/22 08:38 Dose: 1 tab Documented by: VU Olanzapine (Olanzapine 5 Mg Tablet) 5 mg PO BEDTIME [facility] Last Admin: 01/28/22 20:55 Dose: 5 mg Documented by: LISSETTE Omeprazole (Omeprazole 20 Mg Capsule.Dr) 20 mg PO DAILY [facility] Last Admin: 01/29/22 08:39 Dose: 20 mg Documented by: VU Oxybutynin Chloride (Oxybutynin Chloride Er 5 Mg Tab.Er.24) 5 mg PO DAILY [facility] Last Admin: 01/29/22 08:38 Dose: 5 mg Documented by: VU Pharmacy Consult (Consult Rx Perform Med Rec) 1 each MISCELLANE ONCE PRN PRN Reason: Consult order Senna (Sennosides 8.6 Mg Tablet) 8.6 mg PO BEDTIME PRN PRN Reason: Constipation Sodium Chloride (0.9 % Sodium Chloride Flush 3 Ml Syringe) 3 ml IVFLUSH QSHIFT [facility] Last Admin: 01/29/22 08:39 Dose: 3 ml Documented by: VU Tamsulosin HCl (Tamsulosin Hcl 0.4 Mg Capsule) 0.4 mg PO BEDTIME [facility] Last Admin: 01/28/22 20:56 Dose: 0.4 mg Documented by: LISSETTE Trazodone HCl (Trazodone Hcl 100 Mg Tablet) 100 mg PO BEDTIME PRN PRN Reason: Insomnia Trazodone HCl (Trazodone Hcl 100 Mg Tablet) 300 mg PO BEDTIME [facility] Last Admin: 01/28/22 20:56 Dose: 300 mg Documented by: LISSETTE Labs CBC & Chem 7: 01/28/22 07:26 01/28/22 07:26 Labs: Laboratory Results - last 24 hr 01/28/22 01/28/22 01/28/22 07:26 12:52 17:20 POC Glucose 167 H 247 H Magnesium 1.6 01/28/22 01/28/22 01/29/22 21:00 22:00 02:49 POC Glucose 182 H 178 H 155 H Magnesium 01/29/22 07:32 POC Glucose 210 H Magnesium Assessment and Plan (1) COVID-19: Status: Acute (2) Bimalleolar ankle fracture: Status: Acute Plan 71 y/O M? with history of asthma, hypertension, hyperlipidemia, diabetes mellitus, opioid use,? possiblehistory of genital herpes, history of pneumonia. ?left ankle fracture: ?still intractable pain pain control-adjust dilaudid ?incentive spirometry, bowel regimen htn: seems? acceptable ?continue home medications diabetes:fs 170-200 ? Diabetic diet, fingersticks with coverage ?hyperlipidemia:? Continue statin ?opioid use:? Continue Suboxone. ?hypomagnesemia: Repleted, normal ,added mag replacements covid posiive : asymptomatic, monitor id eval- no further treatment currently. ?DVT prophylaxis:? mechanical devices inpatient : ankle fracture-pain control, COVID Quality Stroke Does the patient have a stroke diagnosis?: No VTE Prior VTE?: No VTE Risk Level:: Medical - moderate - high VTE Device Contraindication: N/A - Device Ordered VTE Drug Contraindication: N/A - Med Ordered
[2022-01-29] MEDS: Dorzolamide/Timolo 2.23%/0.68% 10 ML DRBTL 1 DROP EYE-BOTH ×2 (09:43→20:41)
[2022-01-29] MEDS: Clotrimazole 1 % Cream 15 GM TUBE 1 APPL TOPICAL ×2 (09:43→20:41)
[2022-01-29] MEDS: Ferrous Sulfate 300 MG/5 ML LIQUID 150 MG PO (09:45)
--- NOTE | 2022-01-29 10:30 | PC.NURSE ---
Pt resting in hospital bed. Medicated with PRN morphine for pain to LLE. LLE spinted. + CSM to LLE Pt is A/O. VSS.
[2022-01-29 12:29] VITALS: BP 157/43; PULSE 67; RESP 18; TEMP 36.7; O2SAT 94
[2022-01-29 18:04] LABS: Glucose, Whole Blood 127 mg/dL (60-115)
[2022-01-29 18:15] LABS: Glucose, Whole Blood 201 mg/dL (60-115)
[2022-01-29] MEDS: amLODIPine Besylate 10 MG TABLET PO (19:52)
[2022-01-29] MEDS: OLANZapine 5 MG TABLET PO (19:52)
[2022-01-29] MEDS: Atorvastatin Calcium 40 MG TABLET PO (19:52)
[2022-01-29] MEDS: traZODone HCL 100 MG TABLET 300 MG PO (19:52)
[2022-01-29] MEDS: Docusate Sodium 100 MG CAPSULE PO (19:52)
[2022-01-29] MEDS: Tamsulosin HCL 0.4 MG CAPSULE PO (19:52)
[2022-01-29 19:56] VITALS: BP 149/73; PULSE 74; RESP 16; O2SAT 95
[2022-01-29 20:00] VITALS: BP 149/73; PULSE 71; RESP 16
[2022-01-29 20:08] LABS: Glucose, Whole Blood 251 mg/dL (60-115)
[2022-01-29] MEDS: Insulin Glargine,Hum.rec.anlog 100 UNIT/ML 10 ML VIAL 49 UNIT SUBCUT (20:29)
[2022-01-29] MEDS: HYDROmorphone HCl 0.5 MG/0.5 ML SYRINGE IVPUSH (20:30)
[2022-01-29] MEDS: Latanoprost 0.005 % Ophth Sol 2.5 ML DROPS 1 DROP EYE-BOTH (20:41)
[2022-01-29 20:52] VITALS: PULSE 67; RESP 18
--- NOTE | 2022-01-29 21:50 | PC.NURSE ---
pt repeatedly asking this RN for pain medication. This RN informed pt that he has no PRN medications available at this time. MD aware, per MD she will be putting in another standing order for pain meds
[2022-01-29] MEDS: Morphine Sulfate 4 MG/ML CARTRIDGE IVPUSH (22:14)
[2022-01-30] VITALS (9 sets, daily range): BP systolic 129–161; BP diastolic 63–88; PULSE 67–77; RESP 15–20; TEMP 36.4–37; O2SAT 95–97
[2022-01-30] MEDS: HYDROmorphone HCl 0.5 MG/0.5 ML SYRINGE IVPUSH ×4 (01:13→21:52)
--- NOTE | 2022-01-30 01:20 | PC.NURSE ---
pt repeatedly asking this RN for prn morphine, pt educated that prn morphine is not due at this time, pt medicated for pain with prn dilaudid. pt states that does nothing for me
[2022-01-30] MEDS: Morphine Sulfate 4 MG/ML CARTRIDGE IVPUSH ×6 (02:11→23:03)
--- NOTE | 2022-01-30 04:04 | PC.NURSE ---
pt requesting prn morphine, this RN informs pt that medication cannot be given at this time due to recent administration.
--- NOTE | 2022-01-30 05:21 | PC.NURSE ---
pt screaming NURSE this RN to pt bedside to see what's wrong. pt agitated and aggressive with this RN screaming, where are my pain meds, im supposed to be getting pain meds every 3 hours, you were supposed to come in 10 minutes ago to give me my pain meds and you did not wake me up to give them. im gonna tell the doctor you're screwing with my pain meds. this RN educates pt that the medication is as needed, not a scheduled med. pt educated on the dangers of giving narcotic medication to pt's that are sleeping, pt educated that he can get this medication every 3 hours as needed for pain. pt apologetic and all safety measures are maintained at this time.
[2022-01-30 07:46] LABS: Glucose, Whole Blood 151 mg/dL (60-115)
--- NOTE | 2022-01-30 08:06 | PM.EVENT ---
Event Note Date of Service: 01/30/22 Event Note: Patient was placed in a short leg posterior splint yesterday. Plan is to continue pain management and monitor skin for any signs of breakdown or infection. Monitor skin quality and edema to plan for surgical intervention.
[2022-01-30] MEDS: Buprenorphine/Naloxone 8/2 mg FILM 1 FILM SUBLINGUAL ×2 (08:46→21:56)
[2022-01-30] MEDS: Aspirin Enteric Coated 81 MG TABLET.DR PO (08:46)
[2022-01-30] MEDS: Magnesium Oxide 400 MG TABLET PO ×2 (08:46→16:23)
[2022-01-30] MEDS: Ferrous Sulfate 300 MG/5 ML LIQUID 150 MG PO (08:46)
[2022-01-30] MEDS: Omeprazole 20 MG CAPSULE.DR PO (08:47)
[2022-01-30] MEDS: Loratadine 10 MG TABLET PO (08:47)
[2022-01-30] MEDS: Insulin Lispro 100 UNIT/ML 3 ML VIAL SUBCUT ×3 (08:47→21:57)
[2022-01-30] MEDS: Multivitamin TABLET 1 TAB PO (08:47)
[2022-01-30] MEDS: Clotrimazole 1 % Cream 15 GM TUBE 1 APPL TOPICAL (08:48)
[2022-01-30] MEDS: Dorzolamide/Timolo 2.23%/0.68% 10 ML DRBTL 1 DROP EYE-BOTH ×2 (08:48→22:11)
[2022-01-30] MEDS: Metoprolol Succinate ER 25 MG TAB.ER.24H PO (08:49)
--- NOTE | 2022-01-30 09:07 | HO.PM.IMPN ---
Subjective Subjective Date of Service: 01/31/22 Interval History: ankle fx, covid Review of Systems foot pain seems improivng withic pain meds Denies any chest pain or shortness of breath or abdominal pain or fever chills Physical Exam Vital Signs: Vital Signs: Last Vital Signs Temp 98 F 01/30/22 02:13 Pulse 71 01/30/22 05:49 Resp 18 01/30/22 05:49 BP 161/82 H 01/30/22 05:49 Pulse Ox 97 01/30/22 05:49 BMI result Body Mass Index 29.7 Appearance: Alert.? Oriented X3.?still pain.? cvs: rrr, [id number] res: clear to auscultation ,no rhonchii or wheezing abd: no rebound or guarding ,nt, bs present. ext pulses present , no cyanosis ,? Left ankle wrapped -wiggle toes ,sensations intact neuro: axo3 , nonfocal Objective Data Active Medications Amlodipine Besylate (Amlodipine Besylate 10 Mg Tablet) 10 mg PO BEDTIME [facility]; Protocol Last Admin: 01/29/22 19:52 Dose: 10 mg Documented by: LISSETTE Artificial Tears (Artificial Tears 15 Ml Drops) 1 drop EYE-BOTH QID PRN PRN Reason: DRY EYES Aspirin (Aspirin Enteric Coated 81 Mg Tablet.) 81 mg PO DAILY [facility] Last Admin: 01/30/22 08:46 Dose: 81 mg Documented by: AIDE Atorvastatin Calcium (Atorvastatin Calcium 40 Mg Tablet) 40 mg PO BEDTIME [facility] Last Admin: 01/29/22 19:52 Dose: 40 mg Documented by: LISSETTE Buprenorphine/Naloxone (Buprenorphine/Naloxone 8/2 Mg Film) 1 film SUBLINGUAL BID [facility] Last Admin: 01/30/22 08:46 Dose: 1 film Documented by: AIDE Clotrimazole (Clotrimazole 1 % Cream 15 Gm Tube) 1 appl TOPICAL BID [facility]; Protocol Last Admin: 01/30/22 08:48 Dose: 1 appl Documented by: AIDE Dextrose (Dextrose 50 % 25 Gm/50 Ml Syringe) 25 gm IVPUSH Q15M PRN; Protocol PRN Reason: per Hypoglycemia Standing Ord. Docusate Sodium (Docusate Sodium 100 Mg Capsule) 100 mg PO BEDTIME [facility] Last Admin: 01/29/22 19:52 Dose: 100 mg Documented by: LISSETTE Dorzolamide/Timolol (Dorzolamide/Timolo 2.23%/0.68% 10 Ml Drbtl) 1 drop EYE-BOTH BID [facility] Last Admin: 01/30/22 08:48 Dose: 1 drop Documented by: AIDE Ferrous Sulfate (Ferrous Sulfate 300 Mg/5 Ml Liquid) 150 mg PO DAILY [facility] Last Admin: 01/30/22 08:46 Dose: 150 mg Documented by: AIDE Fluticasone Propionate (Fluticasone Propionate 100 Mcg Blst.W.Dev) 1 puff INHALE RBID [facility] Last Admin: 01/29/22 20:52 Dose: 1 puff Documented by: MATOSLU Glucose (Glucose Gel 15 Gm Gel..Gram.) 15 gm PO Q15M PRN; Protocol PRN Reason: per Hypoglycemia Standing Ord. Hydromorphone HCl (Hydromorphone Hcl 0.5 Mg/0.5 Ml Syringe) 0.5 mg IVPUSH Q3H PRN; Protocol PRN Reason: Pain, Severe (Pain Scale 7-10) Last Admin: 01/30/22 01:13 Dose: 0.5 mg Documented by: LISSETTE Insulin Glargine (Insulin Glargine,Hum.Rec.Anlog 100 Unit/Ml 10 Ml Vial) 49 unit SUBCUT BEDTIME [facility] Last Admin: 01/29/22 20:29 Dose: 49 unit Documented by: LISSETTE Insulin Human Lispro (Insulin Lispro 100 Unit/Ml 3 Ml Vial) 0 unit SUBCUT QIDACHS [facility]; Protocol Last Admin: 01/30/22 08:47 Dose: 2 unit Documented by: AIDE Latanoprost (Latanoprost 0.005 % Ophth Yari 2.5 Ml Drops) 1 drop EYE-BOTH BEDTIME [facility] Last Admin: 01/29/22 20:41 Dose: 1 drop Documented by: LISSETTE Loratadine (Loratadine 10 Mg Tablet) 10 mg PO DAILY [facility] Last Admin: 01/30/22 08:47 Dose: 10 mg Documented by: AIDE Magnesium Oxide (Magnesium Oxide 400 Mg Tablet) 400 mg PO BIDPC [facility] Last Admin: 01/30/22 08:46 Dose: 400 mg Documented by: AIDE Metoprolol Succinate (Metoprolol Succinate Er 25 Mg Tab.Er.24h) 25 mg PO DAILY [facility]; Protocol Last Admin: 01/30/22 08:49 Dose: 25 mg Documented by: AIDE Morphine Sulfate (Morphine Sulfate 4 Mg/Ml Cartridge) 4 mg IVPUSH Q3H PRN; Protocol PRN Reason: Pain, Mild (Pain Scale 1-3) Last Admin: 01/30/22 08:46 Dose: 4 mg Documented by: AIDE Multivitamins/Vitamin C (Multivitamin Tablet) 1 tab PO DAILY [facility] Last Admin: 01/30/22 08:47 Dose: 1 tab Documented by: AIDE Olanzapine (Olanzapine 5 Mg Tablet) 5 mg PO BEDTIME [facility] Last Admin: 01/29/22 19:52 Dose: 5 mg Documented by: LISSETTE Omeprazole (Omeprazole 20 Mg Capsule.Dr) 20 mg PO DAILY [facility] Last Admin: 01/30/22 08:47 Dose: 20 mg Documented by: AIDE Oxybutynin Chloride (Oxybutynin Chloride Er 5 Mg Tab.Er.24) 5 mg PO DAILY [facility] Last Admin: 01/30/22 08:46 Dose: 5 mg Documented by: AIDE Pharmacy Consult (Consult Rx Perform Med Rec) 1 each MISCELLANE ONCE PRN PRN Reason: Consult order Senna (Sennosides 8.6 Mg Tablet) 8.6 mg PO BEDTIME PRN PRN Reason: Constipation Sodium Chloride (0.9 % Sodium Chloride Flush 3 Ml Syringe) 3 ml IVFLUSH QSHIFT [facility] Last Admin: 01/30/22 08:49 Dose: Not Given Documented by: AIDE Non-Admin Reason: IV Running Tamsulosin HCl (Tamsulosin Hcl 0.4 Mg Capsule) 0.4 mg PO BEDTIME [facility] Last Admin: 01/29/22 19:52 Dose: 0.4 mg Documented by: LISSETTE Trazodone HCl (Trazodone Hcl 100 Mg Tablet) 100 mg PO BEDTIME PRN PRN Reason: Insomnia Trazodone HCl (Trazodone Hcl 100 Mg Tablet) 300 mg PO BEDTIME [facility] Last Admin: 01/29/22 19:52 Dose: 300 mg Documented by: LISSETTE Labs CBC & Chem 7: 01/28/22 07:26 01/28/22 07:26 Labs: Laboratory Results - last 24 hr 01/29/22 01/29/22 01/29/22 13:16 18:09 19:58 POC Glucose 127 H 201 H 251 H 01/30/22 07:37 POC Glucose 151 H Assessment and Plan (1) COVID-19: Status: Acute (2) Bimalleolar ankle fracture: Status: Acute Plan 71 y/O M? with history of asthma, hypertension, hyperlipidemia, diabetes mellitus, opioid use,? possiblehistory of genital herpes, history of pneumonia. ?left ankle fracture: ?still intractable pain pain control-adjust dilaudid, added oxycodone ?incentive spirometry, bowel regimen ortho ?placed in a short leg posterior splint yesterday. Plan is to continue pain management and monitor skin for any signs of breakdown or infection. Monitor skin quality and edema to plan for surgical intervention. htn: seems? acceptable ?continue home medications diabetes:fs 150-200 ? Diabetic diet, fingersticks with coverage ?hyperlipidemia:? Continue statin ?opioid use:? Continue Suboxone. ?hypomagnesemia: Repleted, normal. continue med replacements covid posiive : asymptomatic, monitor id eval- no further treatment currently. ?DVT prophylaxis:? mechanical devices inpatient : ankle fracture-pain control requiring iv pain meds , COVID Quality Stroke Does the patient have a stroke diagnosis?: No VTE Prior VTE?: No VTE Risk Level:: Medical - moderate - high VTE Device Contraindication: N/A - Device Ordered VTE Drug Contraindication: N/A - Med Ordered
[2022-01-30] MEDS: Fluticasone Propionate 100 MCG BLST.W.DEV 1 PUFF INHALE ×2 (09:18→20:34)
[2022-01-30] MEDS: polyethylene glycoL 3350 17 GM POWD.PACK PO (10:41)
[2022-01-30] MEDS: Docusate Sodium 100 MG CAPSULE PO ×2 (10:41→21:56)
[2022-01-30 13:17] LABS: Glucose, Whole Blood 116 mg/dL (60-115)
--- NOTE | 2022-01-30 14:53 | MHC.CM.PN ---
Addendum entered by Jaci Mckenna 01/30/22 15:10: Pt states he is vaxed x4 but unsure if Moderna vs Pfizer Original Note: Spoke with pt and his dtr Macie to review d/c planning: pt resides alone without services and states he is very independent with all ADL's and care needs. He has an electric w/c and cane and feels he is very mobile. Discussed pt's limited mobility d/t ankle fx with possible need for surgical intervention. Informed pt that he may be unable to bear weight on the injured extremity and may require STR. Oh no! I'm not going. I have a home and I'll go there Discussed [facility] for skilled RN/PT services to which pt stated he had them in the past and they broke things and made a mess. Pt's dtr confirms past services. States her father is very stubborn but has no family or friends that would be able to assist him at home with care needs. HCP on file/verified: [facility] in chart. Of note, pt is COVID + and may need to wait until recovered for placement. Pt will need a PT eval to assess his transfer and gait ability. CM to follow for finalization of d/c plans.
[2022-01-30 15:58] LABS: Glucose, Whole Blood 199 mg/dL (60-115)
[2022-01-30] MEDS: 0.9 % Sodium Chloride Flush 3 ML SYRINGE IVFLUSH ×2 (16:24→21:56)
[2022-01-30 19:50] LABS: Glucose, Whole Blood 214 mg/dL (60-115)
[2022-01-30] MEDS: amLODIPine Besylate 10 MG TABLET PO (21:56)
[2022-01-30] MEDS: OLANZapine 5 MG TABLET PO (21:56)
[2022-01-30] MEDS: Tamsulosin HCL 0.4 MG CAPSULE PO (21:56)
[2022-01-30] MEDS: Atorvastatin Calcium 40 MG TABLET PO (21:56)
[2022-01-30] MEDS: traZODone HCL 100 MG TABLET 300 MG PO (21:56)
[2022-01-30] MEDS: Insulin Glargine,Hum.rec.anlog 100 UNIT/ML 10 ML VIAL 49 UNIT SUBCUT (21:56)
[2022-01-30] MEDS: Latanoprost 0.005 % Ophth Sol 2.5 ML DROPS 1 DROP EYE-BOTH (22:11)
[2022-01-31] MEDS: HYDROmorphone HCl 0.5 MG/0.5 ML SYRINGE IVPUSH ×4 (00:22→21:07)
[2022-01-31] MEDS: Morphine Sulfate 4 MG/ML CARTRIDGE IVPUSH ×5 (06:22→23:05)
[2022-01-31 07:41] LABS: Glucose, Whole Blood 132 mg/dL (60-115)
[2022-01-31] MEDS: Fluticasone Propionate 100 MCG BLST.W.DEV 1 PUFF INHALE (07:52)
[2022-01-31 08:00] VITALS: BP 142/79; PULSE 82; RESP 20; TEMP 36.5; O2SAT 95
[2022-01-31 08:05] VITALS: PULSE 82; RESP 18; O2SAT 95
[2022-01-31] MEDS: Omeprazole 20 MG CAPSULE.DR PO (09:40)
[2022-01-31] MEDS: 0.9 % Sodium Chloride Flush 3 ML SYRINGE IVFLUSH ×3 (09:40→21:09)
[2022-01-31] MEDS: polyethylene glycoL 3350 17 GM POWD.PACK PO ×2 (09:40→21:10)
[2022-01-31] MEDS: Buprenorphine/Naloxone 8/2 mg FILM 1 FILM SUBLINGUAL ×2 (09:41→21:06)
[2022-01-31] MEDS: Aspirin Enteric Coated 81 MG TABLET.DR PO (09:42)
[2022-01-31] MEDS: Ferrous Sulfate 300 MG/5 ML LIQUID 150 MG PO (09:42)
[2022-01-31] MEDS: Loratadine 10 MG TABLET PO (09:43)
[2022-01-31] MEDS: Docusate Sodium 100 MG CAPSULE PO ×2 (09:43→21:07)
[2022-01-31] MEDS: Magnesium Oxide 400 MG TABLET PO ×2 (09:43→16:27)
[2022-01-31] MEDS: Metoprolol Succinate ER 25 MG TAB.ER.24H PO (09:43)
[2022-01-31] MEDS: Multivitamin TABLET 1 TAB PO (09:43)
[2022-01-31 11:06] LABS: Glucose, Whole Blood 248 mg/dL (60-115)
[2022-01-31] MEDS: Clotrimazole 1 % Cream 15 GM TUBE 1 APPL TOPICAL (11:10)
[2022-01-31] MEDS: Dorzolamide/Timolo 2.23%/0.68% 10 ML DRBTL 1 DROP EYE-BOTH ×2 (11:10→21:08)
[2022-01-31 11:15] VITALS: BP 142/71; PULSE 77; RESP 20; TEMP 36.7; O2SAT 95
[2022-01-31] MEDS: Insulin Lispro 100 UNIT/ML 3 ML VIAL SUBCUT ×2 (11:30→21:08)
[2022-01-31] MEDS: oxyCODONE HCl Immed Release 5 MG TABLET 10 MG PO (14:22)
[2022-01-31 15:05] VITALS: BP 154/74; PULSE 75; RESP 18; TEMP 36.1; O2SAT 95
[2022-01-31 16:01] LABS: Glucose, Whole Blood 140 mg/dL (60-115)
[2022-01-31 19:04] VITALS: BP 150/91; PULSE 88; RESP 18; TEMP 36.4; O2SAT 94
[2022-01-31 19:32] LABS: Glucose, Whole Blood 288 mg/dL (60-115)
[2022-01-31] MEDS: Atorvastatin Calcium 40 MG TABLET PO (21:06)
[2022-01-31] MEDS: traZODone HCL 100 MG TABLET 300 MG PO (21:06)
[2022-01-31] MEDS: amLODIPine Besylate 10 MG TABLET PO (21:07)
[2022-01-31] MEDS: OLANZapine 5 MG TABLET PO (21:07)
[2022-01-31] MEDS: Tamsulosin HCL 0.4 MG CAPSULE PO (21:07)
[2022-01-31] MEDS: Insulin Glargine,Hum.rec.anlog 100 UNIT/ML 10 ML VIAL 49 UNIT SUBCUT (21:08)
[2022-01-31] MEDS: Latanoprost 0.005 % Ophth Sol 2.5 ML DROPS 1 DROP EYE-BOTH (21:08)
[2022-01-31 22:59] VITALS: BP 149/77; PULSE 84; RESP 18; TEMP 37.2; O2SAT 95
[2022-02-01] VITALS (9 sets, daily range): BP systolic 140–158; BP diastolic 70–83; PULSE 74–88; RESP 18–20; TEMP 36.2–37.2; O2SAT 93–96
[2022-02-01 07:44] LABS: Glucose, Whole Blood 240 mg/dL (60-115)
[2022-02-01] MEDS: Fluticasone Propionate 100 MCG BLST.W.DEV 1 PUFF INHALE ×2 (07:55→21:14)
--- NOTE | 2022-02-01 08:13 | P.PNIM_ITS ---
Subjective Subjective Date of Service: 01/31/22 Interval History: ankle fx, covid Review of Systems still in pain , seems improving Physical Exam Vital Signs: Vital Signs: Last Vital Signs Vitals reviewed and stable01/31/22 BMI result Appearance: Alert.? Oriented X3.?still pain.? cvs: rrr, [id number] res: clear to auscultation ,no rhonchii or wheezing abd: no rebound or guarding ,nt, bs present. ext pulses present , no cyanosis ,? Left ankle wrapped -wiggle toes ,sensations intact neuro: axo3 , nonfocal Objective Data Active Medications Amlodipine Besylate (Amlodipine Besylate 10 Mg Tablet) 10 mg PO BEDTIME [facility]; Protocol Last Admin: 01/31/22 21:07 Dose: 10 mg Documented by: LISA Artificial Tears (Artificial Tears 15 Ml Drops) 1 drop EYE-BOTH QID PRN PRN Reason: DRY EYES Aspirin (Aspirin Enteric Coated 81 Mg Tablet.) 81 mg PO DAILY [facility] Last Admin: 01/31/22 09:42 Dose: 81 mg Documented by: ALISSON Atorvastatin Calcium (Atorvastatin Calcium 40 Mg Tablet) 40 mg PO BEDTIME [facility] Last Admin: 01/31/22 21:06 Dose: 40 mg Documented by: LISA Buprenorphine/Naloxone (Buprenorphine/Naloxone 8/2 Mg Film) 1 film SUBLINGUAL BID [facility] Last Admin: 01/31/22 21:06 Dose: 1 film Documented by: LISA Clotrimazole (Clotrimazole 1 % Cream 15 Gm Tube) 1 appl TOPICAL BID [facility]; Protocol Last Admin: 01/31/22 21:07 Dose: Not Given Documented by: LISA Non-Admin Reason: Patient Refused Dextrose (Dextrose 50 % 25 Gm/50 Ml Syringe) 25 gm IVPUSH Q15M PRN; Protocol PRN Reason: per Hypoglycemia Standing Ord. Docusate Sodium (Docusate Sodium 100 Mg Capsule) 100 mg PO BEDTIME [facility] Last Admin: 01/31/22 21:07 Dose: 100 mg Documented by: LISA Docusate Sodium (Docusate Sodium 100 Mg Capsule) 100 mg PO DAILY [facility] Last Admin: 01/31/22 09:43 Dose: 100 mg Documented by: ALISSON Dorzolamide/Timolol (Dorzolamide/Timolo 2.23%/0.68% 10 Ml Drbtl) 1 drop EYE- BOTH BID [facility] Last Admin: 01/31/22 21:08 Dose: 1 drop Documented by: LISA Ferrous Sulfate (Ferrous Sulfate 300 Mg/5 Ml Liquid) 150 mg PO DAILY [facility] Last Admin: 01/31/22 09:42 Dose: 150 mg Documented by: ALISSON Fluticasone Propionate (Fluticasone Propionate 100 Mcg Blst.W.Dev) 1 puff INHALE RBID [facility] Last Admin: 02/01/22 07:55 Dose: 1 puff Documented by: TAD Glucose (Glucose Gel 15 Gm Gel..Gram.) 15 gm PO Q15M PRN; Protocol PRN Reason: per Hypoglycemia Standing Ord. Hydromorphone HCl (Hydromorphone Hcl 0.5 Mg/0.5 Ml Syringe) 0.5 mg IVPUSH Q3H PRN; Protocol PRN Reason: Pain, Severe (Pain Scale 7-10) Last Admin: 01/31/22 16:26 Dose: 0.5 mg Documented by: ALISSON Hydromorphone HCl (Hydromorphone Hcl 0.5 Mg/0.5 Ml Syringe) 0.5 mg IVPUSH BID [facility]; Protocol Last Admin: 01/31/22 21:07 Dose: 0.5 mg Documented by: LISA Insulin Glargine (Insulin Glargine,Hum.Rec.Anlog 100 Unit/Ml 10 Ml Vial) 49 unit SUBCUT BEDTIME [facility] Last Admin: 01/31/22 21:08 Dose: 49 unit Documented by: LISA Insulin Human Lispro (Insulin Lispro 100 Unit/Ml 3 Ml Vial) 0 unit SUBCUT QIDACHS [facility]; Protocol Last Admin: 01/31/22 21:08 Dose: 6 unit Documented by: LISA Latanoprost (Latanoprost 0.005 % Ophth Yari 2.5 Ml Drops) 1 drop EYE-BOTH BEDTIME [facility] Last Admin: 01/31/22 21:08 Dose: 1 drop Documented by: LISA Loratadine (Loratadine 10 Mg Tablet) 10 mg PO DAILY [facility] Last Admin: 01/31/22 09:43 Dose: 10 mg Documented by: ALISSON Magnesium Oxide (Magnesium Oxide 400 Mg Tablet) 400 mg PO BIDPC [facility] Last Admin: 01/31/22 16:27 Dose: 400 mg Documented by: ALISSON Metoprolol Succinate (Metoprolol Succinate Er 25 Mg Tab.Er.24h) 25 mg PO DAILY [facility]; Protocol Last Admin: 01/31/22 09:43 Dose: 25 mg Documented by: ALISSON Morphine Sulfate (Morphine Sulfate 4 Mg/Ml Cartridge) 4 mg IVPUSH Q3H PRN; Protocol PRN Reason: Pain, Mild (Pain Scale 1-3) Last Admin: 01/31/22 23:05 Dose: 4 mg Documented by: LISA Multivitamins/Vitamin C (Multivitamin Tablet) 1 tab PO DAILY [facility] Last Admin: 01/31/22 09:43 Dose: 1 tab Documented by: AILSSON Olanzapine (Olanzapine 5 Mg Tablet) 5 mg PO BEDTIME [facility] Last Admin: 01/31/22 21:07 Dose: 5 mg Documented by: LISA Omeprazole (Omeprazole 20 Mg Capsule.Dr) 20 mg PO DAILY [facility] Last Admin: 01/31/22 09:40 Dose: 20 mg Documented by: ALISSON Oxybutynin Chloride (Oxybutynin Chloride Er 5 Mg Tab.Er.24) 5 mg PO DAILY [facility] Last Admin: 01/31/22 09:43 Dose: 5 mg Documented by: ALISSON Oxycodone HCl (Oxycodone Hcl Immed Release 5 Mg Tablet) 10 mg PO Q6H PRN PRN Reason: Pain, Mild (Pain Scale 1-3) Last Admin: 01/31/22 14:22 Dose: 10 mg Documented by: ALISSON Pharmacy Consult (Consult Rx Perform Med Rec) 1 each MISCELLANE ONCE PRN PRN Reason: Consult order Polyethylene Glycol (Polyethylene Glycol 3350 17 Gm Powd.Pack) 17 gm PO BID [facility] Last Admin: 01/31/22 21:10 Dose: 17 gm Documented by: LISA Senna (Sennosides 8.6 Mg Tablet) 8.6 mg PO BEDTIME PRN PRN Reason: Constipation Sodium Chloride (0.9 % Sodium Chloride Flush 3 Ml Syringe) 3 ml IVFLUSH QSHIFT [facility] Last Admin: 01/31/22 21:09 Dose: 3 ml Documented by: LISA Tamsulosin HCl (Tamsulosin Hcl 0.4 Mg Capsule) 0.4 mg PO BEDTIME [facility] Last Admin: 01/31/22 21:07 Dose: 0.4 mg Documented by: LISA Trazodone HCl (Trazodone Hcl 100 Mg Tablet) 100 mg PO BEDTIME PRN PRN Reason: Insomnia Trazodone HCl (Trazodone Hcl 100 Mg Tablet) 300 mg PO BEDTIME [facility] Last Admin: 01/31/22 21:06 Dose: 300 mg Documented by: LISA Labs CBC & Chem 7: 01/28/22 07:26 01/28/22 07:26 Labs: Laboratory Results - last 24 hr 01/31/22 01/31/22 01/31/22 11:01 15:58 19:29 POC Glucose 248 H 140 H 288 H 02/01/22 07:36 POC Glucose 240 H Assessment and Plan (1) Bimalleolar ankle fracture: Status: Acute (2) COVID-19: Status: Acute Plan 71 y/O M? with history of asthma, hypertension, hyperlipidemia, diabetes mellitus, opioid use,? possiblehistory of genital herpes, history of pneumonia. ?left ankle fracture: ?still intractable pain pain control-adjust dilaudid, added oxycodone ?incentive spirometry, bowel regimen ortho ?placed in a short leg posterior splint yesterday. Plan is to continue pain management and monitor skin for any signs of breakdown or infection. Monitor skin quality and edema to plan for surgical intervention. htn: seems? acceptable ?continue home medications diabetes:fs 150-200 ? Diabetic diet, fingersticks with coverage ?hyperlipidemia:? Continue statin ?opioid use:? Continue Suboxone. ?hypomagnesemia: Repleted, normal. ?continue med replacements covid posiive : asymptomatic, monitor id eval- no further treatment currently. ?DVT prophylaxis:? mechanical devices inpatient :? ankle fracture-pain control requiring iv pain meds , COVID Quality Stroke Does the patient have a stroke diagnosis?: No VTE Prior VTE?: No VTE Risk Level:: Medical - moderate - high VTE Device Contraindication: N/A - Device Ordered VTE Drug Contraindication: N/A - Med Ordered
--- NOTE | 2022-02-01 08:17 | P.PNIM_ITS ---
Subjective Subjective Date of Service: 02/01/22 Interval History: ankle fx, covid Review of Systems pain seems slightly better Physical Exam Vital Signs: Vital Signs: Last Vital Signs Temp 98.6 F 02/01/22 07:37 Pulse 82 02/01/22 07:55 Resp 18 02/01/22 07:55 BP 158/71 H 02/01/22 07:37 Pulse Ox 95 02/01/22 07:37 BMI result Body Mass Index 29.7 Appearance: Alert.? Oriented X3.?still pain.? cvs: rrr, [id number] res: clear to auscultation ,no rhonchii or wheezing abd: no rebound or guarding ,nt, bs present. ext pulses present , no cyanosis ,? Left ankle wrapped -wiggle toes ,sensations intact neuro: axo3 , nonfocal Objective Data Active Medications Amlodipine Besylate (Amlodipine Besylate 10 Mg Tablet) 10 mg PO BEDTIME [facility]; Protocol Last Admin: 01/31/22 21:07 Dose: 10 mg Documented by: LISA Artificial Tears (Artificial Tears 15 Ml Drops) 1 drop EYE-BOTH QID PRN PRN Reason: DRY EYES Aspirin (Aspirin Enteric Coated 81 Mg Tablet.) 81 mg PO DAILY [facility] Last Admin: 01/31/22 09:42 Dose: 81 mg Documented by: ALISSON Atorvastatin Calcium (Atorvastatin Calcium 40 Mg Tablet) 40 mg PO BEDTIME [facility] Last Admin: 01/31/22 21:06 Dose: 40 mg Documented by: LISA Buprenorphine/Naloxone (Buprenorphine/Naloxone 8/2 Mg Film) 1 film SUBLINGUAL BID [facility] Last Admin: 01/31/22 21:06 Dose: 1 film Documented by: LISA Clotrimazole (Clotrimazole 1 % Cream 15 Gm Tube) 1 appl TOPICAL BID [facility]; Protocol Last Admin: 01/31/22 21:07 Dose: Not Given Documented by: LISA Non-Admin Reason: Patient Refused Dextrose (Dextrose 50 % 25 Gm/50 Ml Syringe) 25 gm IVPUSH Q15M PRN; Protocol PRN Reason: per Hypoglycemia Standing Ord. Docusate Sodium (Docusate Sodium 100 Mg Capsule) 100 mg PO BEDTIME [facility] Last Admin: 01/31/22 21:07 Dose: 100 mg Documented by: LISA Docusate Sodium (Docusate Sodium 100 Mg Capsule) 100 mg PO DAILY [facility] Last Admin: 01/31/22 09:43 Dose: 100 mg Documented by: ALISSON Dorzolamide/Timolol (Dorzolamide/Timolo 2.23%/0.68% 10 Ml Drbtl) 1 drop EYE- BOTH BID [facility] Last Admin: 01/31/22 21:08 Dose: 1 drop Documented by: LISA Ferrous Sulfate (Ferrous Sulfate 300 Mg/5 Ml Liquid) 150 mg PO DAILY [facility] Last Admin: 01/31/22 09:42 Dose: 150 mg Documented by: ALISSON Fluticasone Propionate (Fluticasone Propionate 100 Mcg Blst.W.Dev) 1 puff INHALE RBID [facility] Last Admin: 02/01/22 07:55 Dose: 1 puff Documented by: TAD Glucose (Glucose Gel 15 Gm Gel..Gram.) 15 gm PO Q15M PRN; Protocol PRN Reason: per Hypoglycemia Standing Ord. Hydromorphone HCl (Hydromorphone Hcl 0.5 Mg/0.5 Ml Syringe) 0.5 mg IVPUSH Q3H PRN; Protocol PRN Reason: Pain, Severe (Pain Scale 7-10) Last Admin: 01/31/22 16:26 Dose: 0.5 mg Documented by: ALISSON Hydromorphone HCl (Hydromorphone Hcl 0.5 Mg/0.5 Ml Syringe) 0.5 mg IVPUSH BID [facility]; Protocol Last Admin: 01/31/22 21:07 Dose: 0.5 mg Documented by: LISA Insulin Glargine (Insulin Glargine,Hum.Rec.Anlog 100 Unit/Ml 10 Ml Vial) 49 unit SUBCUT BEDTIME [facility] Last Admin: 01/31/22 21:08 Dose: 49 unit Documented by: LISA Insulin Human Lispro (Insulin Lispro 100 Unit/Ml 3 Ml Vial) 0 unit SUBCUT QIDACHS [facility]; Protocol Last Admin: 01/31/22 21:08 Dose: 6 unit Documented by: LISA Latanoprost (Latanoprost 0.005 % Ophth Yari 2.5 Ml Drops) 1 drop EYE-BOTH BEDTIME [facility] Last Admin: 01/31/22 21:08 Dose: 1 drop Documented by: LISA Loratadine (Loratadine 10 Mg Tablet) 10 mg PO DAILY [facility] Last Admin: 01/31/22 09:43 Dose: 10 mg Documented by: ALISSON Magnesium Oxide (Magnesium Oxide 400 Mg Tablet) 400 mg PO BIDPC [facility] Last Admin: 01/31/22 16:27 Dose: 400 mg Documented by: ALISSON Metoprolol Succinate (Metoprolol Succinate Er 25 Mg Tab.Er.24h) 25 mg PO DAILY [facility]; Protocol Last Admin: 01/31/22 09:43 Dose: 25 mg Documented by: ALISSON Morphine Sulfate (Morphine Sulfate 4 Mg/Ml Cartridge) 4 mg IVPUSH Q3H PRN; Protocol PRN Reason: Pain, Mild (Pain Scale 1-3) Last Admin: 01/31/22 23:05 Dose: 4 mg Documented by: LISA Multivitamins/Vitamin C (Multivitamin Tablet) 1 tab PO DAILY [facility] Last Admin: 01/31/22 09:43 Dose: 1 tab Documented by: ALISSON Olanzapine (Olanzapine 5 Mg Tablet) 5 mg PO BEDTIME [facility] Last Admin: 01/31/22 21:07 Dose: 5 mg Documented by: LISA Omeprazole (Omeprazole 20 Mg Capsule.Dr) 20 mg PO DAILY [facility] Last Admin: 01/31/22 09:40 Dose: 20 mg Documented by: ALISSON Oxybutynin Chloride (Oxybutynin Chloride Er 5 Mg Tab.Er.24) 5 mg PO DAILY [facility] Last Admin: 01/31/22 09:43 Dose: 5 mg Documented by: ALISSON Oxycodone HCl (Oxycodone Hcl Immed Release 5 Mg Tablet) 10 mg PO Q6H PRN PRN Reason: Pain, Mild (Pain Scale 1-3) Last Admin: 01/31/22 14:22 Dose: 10 mg Documented by: ALISSON Pharmacy Consult (Consult Rx Perform Med Rec) 1 each MISCELLANE ONCE PRN PRN Reason: Consult order Polyethylene Glycol (Polyethylene Glycol 3350 17 Gm Powd.Pack) 17 gm PO BID [facility] Last Admin: 01/31/22 21:10 Dose: 17 gm Documented by: LISA Senna (Sennosides 8.6 Mg Tablet) 8.6 mg PO BEDTIME PRN PRN Reason: Constipation Sodium Chloride (0.9 % Sodium Chloride Flush 3 Ml Syringe) 3 ml IVFLUSH QSHIFT [facility] Last Admin: 01/31/22 21:09 Dose: 3 ml Documented by: LISA Tamsulosin HCl (Tamsulosin Hcl 0.4 Mg Capsule) 0.4 mg PO BEDTIME [facility] Last Admin: 01/31/22 21:07 Dose: 0.4 mg Documented by: LISA Trazodone HCl (Trazodone Hcl 100 Mg Tablet) 100 mg PO BEDTIME PRN PRN Reason: Insomnia Trazodone HCl (Trazodone Hcl 100 Mg Tablet) 300 mg PO BEDTIME [facility] Last Admin: 01/31/22 21:06 Dose: 300 mg Documented by: LISA Labs CBC & Chem 7: 01/28/22 07:26 01/28/22 07:26 Labs: Laboratory Results - last 24 hr 01/31/22 01/31/22 01/31/22 11:01 15:58 19:29 POC Glucose 248 H 140 H 288 H 02/01/22 07:36 POC Glucose 240 H Assessment and Plan (1) Bimalleolar ankle fracture: Status: Acute (2) COVID-19: Status: Acute Plan 71 y/O M? with history of asthma, hypertension, hyperlipidemia, diabetes mellitus, opioid use,? possiblehistory of genital herpes, history of pneumonia. ?left ankle fracture: ?still intractable pain pain control-adjust dilaudid, added oxycodone ?incentive spirometry, bowel regimen ortho ?placed in a short leg posterior splint yesterday. Plan is to continue pain management and monitor skin for any signs of breakdown or infection. Monito r skin quality and edema to plan for surgical intervention. htn: seems? acceptable ?continue home medications diabetes:fs 130-200 ? Diabetic diet, fingersticks with coverage ?hyperlipidemia:? Continue statin ?opioid use:? Continue Suboxone. ?hypomagnesemia: Repleted, normal. ?continue med replacements covid posiive : asymptomatic, monitor id eval- no further treatment currently. ?DVT prophylaxis:? mechanical devices inpatient :? ankle fracture-pain control requiring iv pain meds , COVID Quality Stroke Does the patient have a stroke diagnosis?: No VTE Prior VTE?: No VTE Risk Level:: Medical - moderate - high VTE Device Contraindication: N/A - Device Ordered VTE Drug Contraindication: N/A - Med Ordered
[2022-02-01] MEDS: polyethylene glycoL 3350 17 GM POWD.PACK PO ×2 (08:30→20:19)
[2022-02-01] MEDS: Buprenorphine/Naloxone 8/2 mg FILM 1 FILM SUBLINGUAL ×2 (08:31→20:20)
[2022-02-01] MEDS: Insulin Lispro 100 UNIT/ML 3 ML VIAL SUBCUT ×4 (08:31→20:21)
[2022-02-01] MEDS: HYDROmorphone HCl 0.5 MG/0.5 ML SYRINGE IVPUSH ×2 (08:32→20:20)
[2022-02-01] MEDS: Ferrous Sulfate 300 MG/5 ML LIQUID 150 MG PO (08:33)
[2022-02-01] MEDS: Docusate Sodium 100 MG CAPSULE PO ×2 (08:33→20:20)
[2022-02-01] MEDS: Aspirin Enteric Coated 81 MG TABLET.DR PO (08:33)
[2022-02-01] MEDS: Metoprolol Succinate ER 25 MG TAB.ER.24H PO (08:33)
[2022-02-01] MEDS: Multivitamin TABLET 1 TAB PO (08:33)
[2022-02-01] MEDS: Loratadine 10 MG TABLET PO (08:33)
[2022-02-01] MEDS: Omeprazole 20 MG CAPSULE.DR PO (08:33)
[2022-02-01] MEDS: Magnesium Oxide 400 MG TABLET PO ×2 (08:33→16:50)
[2022-02-01] MEDS: 0.9 % Sodium Chloride Flush 3 ML SYRINGE IVFLUSH ×2 (08:34→16:42)
[2022-02-01 11:58] LABS: Glucose, Whole Blood 253 mg/dL (60-115)
[2022-02-01] MEDS: Morphine Sulfate 4 MG/ML CARTRIDGE IVPUSH ×3 (12:24→20:39)
[2022-02-01 16:19] LABS: Glucose, Whole Blood 166 mg/dL (60-115)
[2022-02-01 19:52] LABS: Glucose, Whole Blood 299 mg/dL (60-115)
[2022-02-01] MEDS: traZODone HCL 100 MG TABLET 300 MG PO (20:20)
[2022-02-01] MEDS: OLANZapine 5 MG TABLET PO (20:20)
[2022-02-01] MEDS: Atorvastatin Calcium 40 MG TABLET PO (20:20)
[2022-02-01] MEDS: Tamsulosin HCL 0.4 MG CAPSULE PO (20:20)
[2022-02-01] MEDS: amLODIPine Besylate 10 MG TABLET PO (20:20)
[2022-02-01] MEDS: Insulin Glargine,Hum.rec.anlog 100 UNIT/ML 10 ML VIAL 49 UNIT SUBCUT (20:21)
[2022-02-02] VITALS (13 sets, daily range): BP systolic 138–163; BP diastolic 71–84; PULSE 70–86; RESP 16–20; TEMP 36.4–37.2; O2SAT 94–96
[2022-02-02] MEDS: Morphine Sulfate 4 MG/ML CARTRIDGE IVPUSH ×6 (00:23→20:38)
[2022-02-02] MEDS: HYDROmorphone HCl 0.5 MG/0.5 ML SYRINGE IVPUSH (02:48)
[2022-02-02 07:23] LABS: Glucose, Whole Blood 187 mg/dL (60-115)
--- NOTE | 2022-02-02 07:57 | P.PNIM_ITS ---
Subjective Subjective Date of Service: 02/02/22 Interval History: ankle fx, covid Review of Systems says that foot pain is improving than yesterday, seems more comfortable denies any chest pain or shortness of breath or abdominal pain or nausea or vomiting. Physical Exam Vital Signs: Vital Signs: Last Vital Signs Temp 98.4 F 02/02/22 07:14 Pulse 75 02/02/22 07:14 Resp 16 02/02/22 07:14 BP 148/81 H 02/02/22 07:14 Pulse Ox 96 02/02/22 07:14 BMI result Body Mass Index 29.7 Appearance: Alert.? Oriented X3.?still pain.? cvs: rrr, [id number] res: clear to auscultation ,no rhonchii or wheezing abd: no rebound or guarding ,nt, bs present. ext pulses present , no cyanosis ,? Left ankle wrapped -wiggle toes ,sensations intact neuro: axo3 , nonfocal Objective Data Active Medications Amlodipine Besylate (Amlodipine Besylate 10 Mg Tablet) 10 mg PO BEDTIME [facility]; Protocol Last Admin: 02/01/22 20:20 Dose: 10 mg Documented by: AIMEE Artificial Tears (Artificial Tears 15 Ml Drops) 1 drop EYE-BOTH QID PRN PRN Reason: DRY EYES Aspirin (Aspirin Enteric Coated 81 Mg Tablet.) 81 mg PO DAILY [facility] Last Admin: 02/01/22 08:33 Dose: 81 mg Documented by: ALISSON Atorvastatin Calcium (Atorvastatin Calcium 40 Mg Tablet) 40 mg PO BEDTIME [facility] Last Admin: 02/01/22 20:20 Dose: 40 mg Documented by: AIMEE Buprenorphine/Naloxone (Buprenorphine/Naloxone 8/2 Mg Film) 1 film SUBLINGUAL BID [facility] Last Admin: 02/01/22 20:20 Dose: 1 film Documented by: AIMEE Clotrimazole (Clotrimazole 1 % Cream 15 Gm Tube) 1 appl TOPICAL BID [facility]; Protocol Last Admin: 02/02/22 01:20 Dose: Not Given Documented by: AIMEE Non-Admin Reason: Patient Refused Dextrose (Dextrose 50 % 25 Gm/50 Ml Syringe) 25 gm IVPUSH Q15M PRN; Protocol PRN Reason: per Hypoglycemia Standing Ord. Docusate Sodium (Docusate Sodium 100 Mg Capsule) 100 mg PO BEDTIME [facility] Last Admin: 02/01/22 20:20 Dose: 100 mg Documented by: AIMEE Docusate Sodium (Docusate Sodium 100 Mg Capsule) 100 mg PO DAILY [facility] Last Admin: 02/01/22 08:33 Dose: 100 mg Documented by: ALISSON Dorzolamide/Timolol (Dorzolamide/Timolo 2.23%/0.68% 10 Ml Drbtl) 1 drop EYE- BOTH BID [facility] Last Admin: 02/02/22 01:20 Dose: Not Given Documented by: AIMEE Non-Admin Reason: Patient Refused Ferrous Sulfate (Ferrous Sulfate 300 Mg/5 Ml Liquid) 150 mg PO DAILY [facility] Last Admin: 02/01/22 08:33 Dose: 150 mg Documented by: ALISSON Fluticasone Propionate (Fluticasone Propionate 100 Mcg Blst.W.Dev) 1 puff INHALE RBID [facility] Last Admin: 02/01/22 21:14 Dose: 1 puff Documented by: SANDHYA Glucose (Glucose Gel 15 Gm Gel..Gram.) 15 gm PO Q15M PRN; Protocol PRN Reason: per Hypoglycemia Standing Ord. Hydromorphone HCl (Hydromorphone Hcl 0.5 Mg/0.5 Ml Syringe) 0.5 mg IVPUSH Q3H PRN; Protocol PRN Reason: Pain, Severe (Pain Scale 7-10) Last Admin: 02/02/22 02:48 Dose: 0.5 mg Documented by: AIMEE Hydromorphone HCl (Hydromorphone Hcl 0.5 Mg/0.5 Ml Syringe) 0.5 mg IVPUSH BID [facility]; Protocol Last Admin: 02/01/22 20:20 Dose: 0.5 mg Documented by: AIMEE Insulin Glargine (Insulin Glargine,Hum.Rec.Anlog 100 Unit/Ml 10 Ml Vial) 49 unit SUBCUT BEDTIME [facility] Last Admin: 02/01/22 20:21 Dose: 49 unit Documented by: AIMEE Insulin Human Lispro (Insulin Lispro 100 Unit/Ml 3 Ml Vial) 0 unit SUBCUT QIDACHS [facility]; Protocol Last Admin: 02/01/22 20:21 Dose: 8 unit Documented by: AIMEE Latanoprost (Latanoprost 0.005 % Ophth Yari 2.5 Ml Drops) 1 drop EYE-BOTH BEDTIME [facility] Last Admin: 02/02/22 01:20 Dose: Not Given Documented by: AIMEE Non-Admin Reason: Patient Refused Loratadine (Loratadine 10 Mg Tablet) 10 mg PO DAILY [facility] Last Admin: 02/01/22 08:33 Dose: 10 mg Documented by: ALISSON Magnesium Oxide (Magnesium Oxide 400 Mg Tablet) 400 mg PO BIDPC [facility] Last Admin: 02/01/22 16:50 Dose: 400 mg Documented by: ALISSON Metoprolol Succinate (Metoprolol Succinate Er 25 Mg Tab.Er.24h) 25 mg PO DAILY [facility]; Protocol Last Admin: 02/01/22 08:33 Dose: 25 mg Documented by: ALISSON Morphine Sulfate (Morphine Sulfate 4 Mg/Ml Cartridge) 4 mg IVPUSH Q3H PRN; Protocol PRN Reason: Pain, Mild (Pain Scale 1-3) Last Admin: 02/02/22 04:03 Dose: 4 mg Documented by: AIMEE Multivitamins/Vitamin C (Multivitamin Tablet) 1 tab PO DAILY [facility] Last Admin: 02/01/22 08:33 Dose: 1 tab Documented by: ALISSON Olanzapine (Olanzapine 5 Mg Tablet) 5 mg PO BEDTIME [facility] Last Admin: 02/01/22 20:20 Dose: 5 mg Documented by: AIMEE Omeprazole (Omeprazole 20 Mg Capsule.Dr) 20 mg PO DAILY [facility] Last Admin: 02/01/22 08:33 Dose: 20 mg Documented by: ALISSON Oxybutynin Chloride (Oxybutynin Chloride Er 5 Mg Tab.Er.24) 5 mg PO DAILY [facility] Last Admin: 02/01/22 08:33 Dose: 5 mg Documented by: ALISSON Oxycodone HCl (Oxycodone Hcl Immed Release 5 Mg Tablet) 10 mg PO Q6H PRN PRN Reason: Pain, Mild (Pain Scale 1-3) Last Admin: 01/31/22 14:22 Dose: 10 mg Documented by: ALISSON Pharmacy Consult (Consult Rx Perform Med Rec) 1 each MISCELLANE ONCE PRN PRN Reason: Consult order Polyethylene Glycol (Polyethylene Glycol 3350 17 Gm Powd.Pack) 17 gm PO BID [facility] Last Admin: 02/01/22 20:19 Dose: 17 gm Documented by: AIMEE Senna (Sennosides 8.6 Mg Tablet) 8.6 mg PO BEDTIME PRN PRN Reason: Constipation Sodium Chloride (0.9 % Sodium Chloride Flush 3 Ml Syringe) 3 ml IVFLUSH QSHIFT [facility] Last Admin: 02/02/22 00:00 Dose: 3 ml Documented by: AIMEE Tamsulosin HCl (Tamsulosin Hcl 0.4 Mg Capsule) 0.4 mg PO BEDTIME [facility] Last Admin: 02/01/22 20:20 Dose: 0.4 mg Documented by: AIMEE Trazodone HCl (Trazodone Hcl 100 Mg Tablet) 100 mg PO BEDTIME PRN PRN Reason: Insomnia Trazodone HCl (Trazodone Hcl 100 Mg Tablet) 300 mg PO BEDTIME [facility] Last Admin: 02/01/22 20:20 Dose: 300 mg Documented by: AIMEE Labs CBC & Chem 7: 01/28/22 07:26 01/28/22 07:26 Labs: Laboratory Results - last 24 hr 02/01/22 02/01/22 02/01/22 11:54 16:12 19:47 POC Glucose 253 H 166 H 299 H 02/02/22 07:16 POC Glucose 187 H Assessment and Plan (1) Bimalleolar ankle fracture: Status: Acute (2) COVID-19: Status: Acute Plan 71 y/O M? with history of asthma, hypertension, hyperlipidemia, diabetes mellitus, opioid use,? possiblehistory of genital herpes, history of pneumonia. ?left ankle fracture: ?still intractable pain pain control-adjust dilaudid, added oxycodone ?incentive spirometry, bowel regimen ortho ?placed in a short leg posterior splint yesterday. Plan is to continue pain management and monitor skin for any signs of breakdown or infection. Monitor skin quality and edema to plan for surgical intervention. pain is improving-patient was strongly encouraged for p.o. medications pain , also has p.r.n. Dilaudid coverage in case needed spoke to surgery ind etail- Planning for morning ankle surgery, the will see patient in afternoon. npo past midnight htn: seems? acceptable ?continue home medications diabetes:fs 160-220 ? Diabetic diet, fingersticks with coverage ?hyperlipidemia:? Continue statin ?opioid use:? Continue Suboxone. ?hypomagnesemia: Repleted, normal. ?continue med replacements covid posiive : asymptomatic, monitor id eval- no further treatment currently. ?DVT prophylaxis:? mechanical devices inpatient :? ankle fracture-pain control requiring iv pain meds, possible ankle surgery in am , COVID Quality Stroke Does the patient have a stroke diagnosis?: No VTE Prior VTE?: No VTE Risk Level:: Medical - moderate - high VTE Device Contraindication: N/A - Device Ordered VTE Drug Contraindication: N/A - Med Ordered
[2022-02-02] MEDS: Ferrous Sulfate 300 MG/5 ML LIQUID 150 MG PO (08:00)
[2022-02-02] MEDS: polyethylene glycoL 3350 17 GM POWD.PACK PO ×2 (08:00→20:37)
[2022-02-02] MEDS: Metoprolol Succinate ER 25 MG TAB.ER.24H PO (08:01)
[2022-02-02] MEDS: Magnesium Oxide 400 MG TABLET PO ×2 (08:01→16:57)
[2022-02-02] MEDS: Aspirin Enteric Coated 81 MG TABLET.DR PO (08:01)
[2022-02-02] MEDS: Omeprazole 20 MG CAPSULE.DR PO (08:01)
[2022-02-02] MEDS: Multivitamin TABLET 1 TAB PO (08:02)
[2022-02-02] MEDS: 0.9 % Sodium Chloride Flush 3 ML SYRINGE IVFLUSH ×4 (08:02→20:38)
[2022-02-02] MEDS: Buprenorphine/Naloxone 8/2 mg FILM 1 FILM SUBLINGUAL ×2 (08:02→20:38)
[2022-02-02] MEDS: Loratadine 10 MG TABLET PO (08:02)
[2022-02-02] MEDS: Docusate Sodium 100 MG CAPSULE PO ×2 (08:02→20:37)
[2022-02-02] MEDS: Insulin Lispro 100 UNIT/ML 3 ML VIAL SUBCUT ×3 (08:02→16:57)
[2022-02-02] MEDS: Fluticasone Propionate 100 MCG BLST.W.DEV 1 PUFF INHALE ×2 (08:16→20:33)
--- NOTE | 2022-02-02 08:28 | PM.EVENT ---
Event Note Date of Service: 02/02/22 Event Note: Patient was placed in a short leg posterior splint which remains clean, dry and intact. Plan is to continue pain management and monitor skin for any signs of breakdown or infection. Monitor skin quality and edema to plan for surgical intervention.
[2022-02-02 11:20] LABS: Glucose, Whole Blood 220 mg/dL (60-115)
[2022-02-02 15:59] LABS: Glucose, Whole Blood 162 mg/dL (60-115)
[2022-02-02] MEDS: amLODIPine Besylate 10 MG TABLET PO (20:37)
[2022-02-02] MEDS: OLANZapine 5 MG TABLET PO (20:37)
[2022-02-02] MEDS: traZODone HCL 100 MG TABLET 300 MG PO (20:37)
[2022-02-02] MEDS: Atorvastatin Calcium 40 MG TABLET PO (20:37)
[2022-02-02] MEDS: Tamsulosin HCL 0.4 MG CAPSULE PO (20:37)
[2022-02-02] MEDS: oxyCODONE HCl Immed Release 5 MG TABLET 10 MG PO (20:38)
[2022-02-02 20:55] LABS: Glucose, Whole Blood 198 mg/dL (60-115)
[2022-02-02] MEDS: Insulin Glargine,Hum.rec.anlog 100 UNIT/ML 10 ML VIAL 49 UNIT SUBCUT (22:42)
[2022-02-02] MEDS: 0.9 % Sodium Chloride 1,000 ML 70 ML IVCONT (22:43)
[2022-02-03] VITALS (10 sets, daily range): BP systolic 108–150; BP diastolic 68–89; PULSE 61–80; RESP 14–20; TEMP 36.1–36.8; O2SAT 94–99
[2022-02-03] MEDS: Morphine Sulfate 4 MG/ML CARTRIDGE IVPUSH ×3 (00:08→14:42)
[2022-02-03 08:02] LABS: Glucose, Whole Blood 153 mg/dL (60-115)
[2022-02-03] MEDS: Insulin Lispro 100 UNIT/ML 3 ML VIAL SUBCUT ×2 (08:21→11:44)
[2022-02-03] MEDS: Ferrous Sulfate 300 MG/5 ML LIQUID 150 MG PO (08:21)
[2022-02-03] MEDS: Buprenorphine/Naloxone 8/2 mg FILM 1 FILM SUBLINGUAL (08:22)
[2022-02-03] MEDS: polyethylene glycoL 3350 17 GM POWD.PACK PO (08:22)
[2022-02-03] MEDS: Metoprolol Succinate ER 25 MG TAB.ER.24H PO (08:22)
[2022-02-03] MEDS: Docusate Sodium 100 MG CAPSULE PO (08:22)
[2022-02-03] MEDS: 0.9 % Sodium Chloride Flush 3 ML SYRINGE IVFLUSH (08:22)
[2022-02-03] MEDS: oxyCODONE HCl Immed Release 5 MG TABLET 10 MG PO (08:23)
[2022-02-03] MEDS: Magnesium Oxide 400 MG TABLET PO (08:23)
[2022-02-03] MEDS: Omeprazole 20 MG CAPSULE.DR PO (08:23)
[2022-02-03] MEDS: Loratadine 10 MG TABLET PO (08:24)
[2022-02-03] MEDS: Multivitamin TABLET 1 TAB PO (08:25)
[2022-02-03] MEDS: Clotrimazole 1 % Cream 15 GM TUBE 1 APPL TOPICAL (08:25)
[2022-02-03] MEDS: Dorzolamide/Timolo 2.23%/0.68% 10 ML DRBTL 1 DROP EYE-BOTH (08:26)
[2022-02-03] MEDS: Fluticasone Propionate 100 MCG BLST.W.DEV 1 PUFF INHALE (08:30)
[2022-02-03 11:44] LABS: Glucose, Whole Blood 152 mg/dL (60-115)
[2022-02-03] MEDS: 0.9 % Sodium Chloride 1,000 ML 70 ML IVCONT (11:46)
--- NOTE | 2022-02-03 13:27 | MHC.SHP ---
Pre-Procedural Eval Section A Date of Service: 02/03/22 The patient is an INPATIENT: Yes Changes since office visit: Yes Patient answered all questions; No Cold of Flu in the past 2 weeks, No New Medical Problems and No Changes in Medication The History & Physical has been completed within 30 days and I have reviewed it.: Yes Section B Chief Complaint: Foot fx / blister Allergies: Allergies Allergy/AdvReac Type Severity Reaction Status Date / Time No Known Allergies Allergy Verified 01/27/22 11:10 Plan I have reviewed the history and physical and performed a pertinent physical examination on my patient. No changes have occurred unless specified.
--- NOTE | 2022-02-03 15:24 | P.CONAN_ITS ---
[facility] Active Problems Active Problems: All Active Problems (Updated 01/27/22 @ 12:20 by Kaitlin Damon DO) Bimalleolar ankle fracture (Acute) COVID-19 (Acute) Hypomagnesemia (Acute) Acute respiratory failure with hypoxia (Acute) Elevated d-dimer (Acute) Syncope and collapse (Acute) TENA (acute kidney injury) (Acute) Vomiting (Acute) Rhabdomyolysis (Acute) Urinary urgency (Acute) BPH w urinary obs/LUTS (Acute) Anemia of chronic disease (Acute) Prepatellar bursitis, left knee (Acute) History of adenomatous polyp of colon (Acute) Chronic constipation (Chronic) GERD (gastroesophageal reflux disease) (Acute) Past Medical History Medical History Anxiety CAD (coronary artery disease) Chronic constipation COPD (chronic obstructive pulmonary disease) Diabetes mellitus Genital herpes GERD (gastroesophageal reflux disease) History of adenomatous polyp of colon Hypertension Opioid dependence on agonist therapy JAUN (obstructive sleep apnea) Pancreatic abnormality Prepatellar bursitis, left knee Family History Family History Mother No problems noted. Father Liver cancer Family history of problems with anesthesia: No Surgical History Surgical History No history of previous surgery History of Problems with Anesthesia: No Social History Social History Household Members: Significant Other Housing: Apartment Do you presently have visiting nurse or other home services: No Alcohol intake: never Patient Tobacco Use Status: Current everyday Tobacco user Tobacco use type: Cigarette Cigarettes Per Day: 3 Second Hand Smoke Exposure: No Substance Use Type: Heroin Advance Directives Date on File: 01/28/22 service: No Current occupational status: retired and disabled Current occupation: right handed Meds Allergies Allergy/AdvReac Type Severity Reaction Status Date / Time No Known Allergies Allergy Verified 01/27/22 11:10 Active Medications: Current Medications Acetaminophen (Acetaminophen 325 Mg Tablet) 650 mg PO Q6H PRN PRN Reason: Pain, Mild (Pain Scale 1-3) Amlodipine Besylate (Amlodipine Besylate 10 Mg Tablet) 10 mg PO BEDTIME [facility]; Protocol Last Admin: 02/02/22 20:37 Dose: 10 mg Documented by: Artificial Tears (Artificial Tears 15 Ml Drops) 1 drop EYE-BOTH QID PRN PRN Reason: DRY EYES Aspirin (Aspirin Enteric Coated 81 Mg Tablet.Dr) 81 mg PO DAILY [facility] Last Admin: 02/02/22 08:01 Dose: 81 mg Documented by: Atorvastatin Calcium (Atorvastatin Calcium 40 Mg Tablet) 40 mg PO BEDTIME [facility] Last Admin: 02/02/22 20:37 Dose: 40 mg Documented by: Buprenorphine/Naloxone (Buprenorphine/Naloxone 8/2 Mg Film) 1 film SUBLINGUAL BID [facility] Last Admin: 02/03/22 08:22 Dose: 1 film Documented by: Clotrimazole (Clotrimazole 1 % Cream 15 Gm Tube) 1 appl TOPICAL BID [facility]; Protocol Last Admin: 02/03/22 08:25 Dose: 1 appl Documented by: Dextrose (Dextrose 50 % 25 Gm/50 Ml Syringe) 25 gm IVPUSH Q15M PRN; Protocol PRN Reason: per Hypoglycemia Standing Ord. Docusate Sodium (Docusate Sodium 100 Mg Capsule) 100 mg PO BEDTIME [facility] Last Admin: 02/02/22 20:37 Dose: 100 mg Documented by: Docusate Sodium (Docusate Sodium 100 Mg Capsule) 100 mg PO DAILY [facility] Last Admin: 02/03/22 08:22 Dose: 100 mg Documented by: Dorzolamide/Timolol (Dorzolamide/Timolo 2.23%/0.68% 10 Ml Drbtl) 1 drop EYE- BOTH BID [facility] Last Admin: 02/03/22 08:26 Dose: 1 drop Documented by: Ferrous Sulfate (Ferrous Sulfate 300 Mg/5 Ml Liquid) 150 mg PO DAILY [facility] Last Admin: 02/03/22 08:21 Dose: 150 mg Documented by: Fluticasone Propionate (Fluticasone Propionate 100 Mcg Blst.W.Dev) 1 puff INHALE RBID [facility] Last Admin: 02/03/22 08:30 Dose: 1 puff Documented by: Glucose (Glucose Gel 15 Gm Gel..Gram.) 15 gm PO Q15M PRN; Protocol PRN Reason: per Hypoglycemia Standing Ord. Hydromorphone HCl (Hydromorphone Hcl 0.5 Mg/0.5 Ml Syringe) 0.5 mg IVPUSH Q6H PRN; Protocol PRN Reason: Pain, Severe (Pain Scale 7-10) Sodium Chloride (Ns) 1,000 mls @ 70 mls/hr IVCONT .[id number] [facility] Last Admin: 02/03/22 11:46 Dose: 70 mls/hr Documented by: Insulin Glargine (Insulin Glargine,Hum.Rec.Anlog 100 Unit/Ml 10 Ml Vial) 49 unit SUBCUT BEDTIME [facility] Last Admin: 02/02/22 22:42 Dose: 49 unit Documented by: Insulin Human Lispro (Insulin Lispro 100 Unit/Ml 3 Ml Vial) 0 unit SUBCUT QIDACHS [facility]; Protocol Last Admin: 02/03/22 11:44 Dose: 2 unit Documented by: Latanoprost (Latanoprost 0.005 % Ophth Yari 2.5 Ml Drops) 1 drop EYE-BOTH BEDTIME [facility] Last Admin: 02/02/22 22:52 Dose: Not Given Documented by: Loratadine (Loratadine 10 Mg Tablet) 10 mg PO DAILY [facility] Last Admin: 02/03/22 08:24 Dose: 10 mg Documented by: Magnesium Oxide (Magnesium Oxide 400 Mg Tablet) 400 mg PO BIDPC [facility] Last Admin: 02/03/22 08:23 Dose: 400 mg Documented by: Metoprolol Succinate (Metoprolol Succinate Er 25 Mg Tab.Er.24h) 25 mg PO DAILY [facility]; Protocol Last Admin: 02/03/22 08:22 Dose: 25 mg Documented by: Morphine Sulfate (Morphine Sulfate 4 Mg/Ml Cartridge) 4 mg IVPUSH Q3H PRN; Protocol PRN Reason: Pain, Mild (Pain Scale 1-3) Last Admin: 02/03/22 14:42 Dose: 4 mg Documented by: Multivitamins/Vitamin C (Multivitamin Tablet) 1 tab PO DAILY [facility] Last Admin: 02/03/22 08:25 Dose: 1 tab Documented by: Olanzapine (Olanzapine 5 Mg Tablet) 5 mg PO BEDTIME [facility] Last Admin: 02/02/22 20:37 Dose: 5 mg Documented by: Omeprazole (Omeprazole 20 Mg Capsule.Dr) 20 mg PO DAILY [facility] Last Admin: 02/03/22 08:23 Dose: 20 mg Documented by: Oxybutynin Chloride (Oxybutynin Chloride Er 5 Mg Tab.Er.24) 5 mg PO DAILY [facility] Last Admin: 02/03/22 08:24 Dose: 5 mg Documented by: Oxycodone HCl (Oxycodone Hcl Immed Release 5 Mg Tablet) 10 mg PO Q6H PRN PRN Reason: Pain, Mild (Pain Scale 1-3) Last Admin: 01/31/22 14:22 Dose: 10 mg Documented by: Oxycodone HCl (Oxycodone Hcl Immed Release 5 Mg Tablet) 10 mg PO BID [facility] Last Admin: 02/03/22 08:23 Dose: 10 mg Documented by: Pharmacy Consult (Consult Rx Perform Med Rec) 1 each MISCELLANE ONCE PRN PRN Reason: Consult order Polyethylene Glycol (Polyethylene Glycol 3350 17 Gm Powd.Pack) 17 gm PO BID [facility] Last Admin: 02/03/22 08:22 Dose: 17 gm Documented by: Senna (Sennosides 8.6 Mg Tablet) 8.6 mg PO BEDTIME PRN PRN Reason: Constipation Sodium Chloride (0.9 % Sodium Chloride Flush 3 Ml Syringe) 3 ml IVFLUSH QSHIFT [facility] Last Admin: 02/03/22 08:22 Dose: 3 ml Documented by: Tamsulosin HCl (Tamsulosin Hcl 0.4 Mg Capsule) 0.4 mg PO BEDTIME [facility] Last Admin: 02/02/22 20:37 Dose: 0.4 mg Documented by: Trazodone HCl (Trazodone Hcl 100 Mg Tablet) 100 mg PO BEDTIME PRN PRN Reason: Insomnia Trazodone HCl (Trazodone Hcl 100 Mg Tablet) 300 mg PO BEDTIME [facility] Last Admin: 02/02/22 20:37 Dose: 300 mg Documented by: Home Medications Medication Instructions Recorded Confirmed Last Taken Type aspirin 81 mg tablet,delayed 81 mg PO DAILY 06/06/20 01/27/22 03/26/21 History release lisinopril 40 mg tablet 40 mg PO DAILY 06/06/20 01/27/22 03/26/21 History metoprolol succinate 25 mg 25 mg PO DAILY 06/06/20 01/27/22 03/26/21 History tablet,extended release 24 hr sennosides 8.6 mg capsule (senna) 8.6 mg PO BEDTIME PRN 06/06/20 01/27/22 Unknown History buprenorphine 8 mg-naloxone 2 mg 1 film SUBLINGUAL BID 12/06/20 01/27/22 03/26/21 History sublingual film amlodipine 10 mg tablet 10 mg PO BEDTIME 03/26/21 01/27/22 03/25/21 History atorvastatin 40 mg tablet 40 mg PO BEDTIME 03/26/21 01/27/22 03/25/21 History dorzolamide 22.3 mg-timolol 6.8 1 drp OPHTHALMIC (EYE) BID 03/26/21 01/27/22 03/26/21 History mg/mL eye drops fluticasone propionate 110 1 puff PO BID PRN 03/26/21 01/27/22 Unknown History mcg/actuation HFA aerosol inhaler (Flovent HFA) glipizide 5 mg tablet, extended 5 mg PO DAILY 03/26/21 01/27/22 03/26/21 History release 24 hr insulin detemir U-100 100 unit/mL 80 unit SUBCUT BEDTIME 03/26/21 01/27/22 03/25/21 History subcutaneous solution (Levemir U-100 Insulin) latanoprost 0.005 % eye drops 1 drp OPHTHALMIC (EYE) BEDTIME 03/26/21 01/27/22 03/25/21 History metformin 1,000 mg tablet 1,000 mg PO BID 03/26/21 01/27/22 03/26/21 History multivitamin-ferrous 1 tab PO DAILY 03/26/21 01/27/22 03/26/21 History fumarate-folic acid 18 mg-400 mcg tablet (Certavite-Antioxidant) olanzapine 5 mg tablet (Zyprexa) 5 mg PO BEDTIME 03/26/21 01/27/22 03/25/21 History omega-3 fatty acids-fish oil 340 1 cap PO TID 03/26/21 01/27/22 03/26/21 History mg-1,000 mg capsule (Fish Oil) peg [id number] 1 1 drp OPHTHALMIC (EYE) QID 03/26/21 01/27/22 0 03/26/21 History %-0.2 %-0.2 % eye drops (Dry Eye Relief) trazodone 100 mg tablet 100 mg PO BEDTIME PRN 03/26/21 01/27/22 03/25/21 History trazodone 150 mg tablet 300 tab PO BEDTIME 03/26/21 01/27/22 03/25/21 History blood sugar diagnostic (FreeStyle #10 ea 09/11/21 10/23/21 Unknown History Lite Strips) clotrimazole 1 % topical cream 1 appl TOPICAL BID 09/11/21 01/27/22 Unknown History insulin syringe-needle U-100 1 mL #10 ea 09/11/21 10/23/21 Unknown History 31 gauge x 5/16 lancets 33 gauge (TRUEplus Lancets) #100 ea 09/11/21 10/23/21 Unknown History loratadine 10 mg tablet 10 mg PO QAM 09/11/21 01/27/22 Unknown History naproxen 500 mg tablet 1 tab PO BID PRN 01/27/22 01/27/22 Unknown History Exam Exam Date and Time: February 03, 2022 1524 Height,Weight and Vital Signs: Height 5 ft 7 in Weight 86.183 kg Last Vital Signs Temp 98.1 F 02/03/22 11:33 Pulse 73 02/03/22 11:33 Resp 20 02/03/22 11:33 BP 133/74 02/03/22 11:33 Pulse Ox 96 02/03/22 11:33 Pertinent Lab Results Pertinent Lab Results: Laboratory Tests 01/27/22 01/27/22 01/27/22 11:19 11:19 11:19 WBC 13.6 H RBC 3.91 L Hgb 11.7 L Hct 34.6 L MCV 88.5 MCH 29.9 MCHC 33.8 RDW 12.2 Plt Count 315 MPV 9.6 Immature Gran % (Auto) 0.9 H Neut % (Auto) 75.3 H Lymph % (Auto) 15.9 L [place] % (Auto) 7.3 Eos % (Auto) 0.5 Baso % (Auto) 0.1 Lymph # (Auto) 2.2 [place] # (Auto) 1.0 Eos # (Auto) 0.1 Baso # (Auto) 0.0 Abs Immat Gran (auto) 0.12 H Absolute Neuts (auto) 10.3 H Absolute Nucleated RBC 0.000 Nucleated RBC % (auto) 0.0 PT 13.3 H INR 1.2 H Sodium 135 Potassium 3.7 Chloride 95 L Carbon Dioxide 28 Anion Gap 16 BUN 19 H Creatinine 1.29 Estim Creat Clear Calc 53.4 Estimated GFR 55 POC Glucose Random Glucose 127 H D Calcium 9.2 D Magnesium 1.4 L* Total Bilirubin 0.8 Direct Bilirubin 0.3 AST 50 H D ALT 31 Alkaline Phosphatase 75 Total Protein 7.2 Albumin 4.2 COVID-19 ([facility]) COVID-19 [employer] 01/27/22 01/27/22 01/27/22 11:19 18:34 21:23 WBC RBC Hgb Hct MCV MCH MCHC RDW Plt Count MPV Immature Gran % (Auto) Neut % (Auto) Lymph % (Auto) [place] % (Auto) Eos % (Auto) Baso % (Auto) Lymph # (Auto) [place] # (Auto) Eos # (Auto) Baso # (Auto) Abs Immat Gran (auto) Absolute Neuts (auto) Absolute Nucleated RBC Nucleated RBC % (auto) PT INR Sodium Potassium Chloride Carbon Dioxide Anion Gap BUN Creatinine Estim Creat Clear Calc Estimated GFR POC Glucose 199 H 273 H Random Glucose Calcium Magnesium Total Bilirubin Direct Bilirubin AST ALT Alkaline Phosphatase Total Protein Albumin COVID-19 ([facility]ANG) Positive A COVID-19 Clin Com See Note 01/28/22 01/28/22 01/28/22 07:04 07:26 07:26 WBC 11.4 H RBC 3.75 L Hgb 11.7 L Hct 33.6 L MCV 89.6 MCH 31.2 MCHC 34.8 RDW 12.4 Plt Count 281 MPV 9.5 Immature Gran % (Auto) Neut % (Auto) Lymph % (Auto) [place] % (Auto) Eos % (Auto) Baso % (Auto) Lymph # (Auto) [place] # (Auto) Eos # (Auto) Baso # (Auto) Abs Immat Gran (auto) Absolute Neuts (auto) Absolute Nucleated RBC 0.000 Nucleated RBC % (auto) 0.0 PT INR Sodium 137 Potassium 3.4 Chloride 97 Carbon Dioxide 31 H Anion Gap 12 BUN 11 Creatinine 0.75 Estim Creat Clear Calc 91.9 Estimated GFR > 60 POC Glucose 199 H Random Glucose 197 H D Calcium 9.2 Magnesium 1.6 Total Bilirubin Direct Bilirubin AST ALT Alkaline Phosphatase Total Protein Albumin COVID-19 ([facility]) COVID-19 [employer] 01/28/22 01/28/22 01/28/22 12:52 17:20 21:00 WBC RBC Hgb Hct MCV MCH MCHC RDW Plt Count MPV Immature Gran % (Auto) Neut % (Auto) Lymph % (Auto) [place] % (Auto) Eos % (Auto) Baso % (Auto) Lymph # (Auto) [place] # (Auto) Eos # (Auto) Baso # (Auto) Abs Immat Gran (auto) Absolute Neuts (auto) Absolute Nucleated RBC Nucleated RBC % (auto) PT INR Sodium Potassium Chloride Carbon Dioxide Anion Gap BUN Creatinine Estim Creat Clear Calc Estimated GFR POC Glucose 167 H 247 H 182 H Random Glucose Calcium Magnesium Total Bilirubin Direct Bilirubin AST ALT Alkaline Phosphatase Total Protein Albumin COVID-19 ([facility]) COVID-19 [employer] 01/28/22 01/29/22 01/29/22 22:00 02:49 07:32 WBC RBC Hgb Hct MCV MCH MCHC RDW Plt Count MPV Immature Gran % (Auto) Neut % (Auto) Lymph % (Auto) [place] % (Auto) Eos % (Auto) Baso % (Auto) Lymph # (Auto) [place] # (Auto) Eos # (Auto) Baso # (Auto) Abs Immat Gran (auto) Absolute Neuts (auto) Absolute Nucleated RBC Nucleated RBC % (auto) PT INR Sodium Potassium Chloride Carbon Dioxide Anion Gap BUN Creatinine Estim Creat Clear Calc Estimated GFR POC Glucose 178 H 155 H 210 H Random Glucose Calcium Magnesium Total Bilirubin Direct Bilirubin AST ALT Alkaline Phosphatase Total Protein Albumin COVID-19 ([facility]) COVID-19 [employer] 01/29/22 01/29/22 01/29/22 13:16 18:09 19:58 WBC RBC Hgb Hct MCV MCH MCHC RDW Plt Count MPV Immature Gran % (Auto) Neut % (Auto) Lymph % (Auto) [place] % (Auto) Eos % (Auto) Baso % (Auto) Lymph # (Auto) [place] # (Auto) Eos # (Auto) Baso # (Auto) Abs Immat Gran (auto) Absolute Neuts (auto) Absolute Nucleated RBC Nucleated RBC % (auto) PT INR Sodium Potassium Chloride Carbon Dioxide Anion Gap BUN Creatinine Estim Creat Clear Calc Estimated GFR POC Glucose 127 H 201 H 251 H Random Glucose Calcium Magnesium Total Bilirubin Direct Bilirubin AST ALT Alkaline Phosphatase Total Protein Albumin COVID-19 ([facility]) COVID-19 [employer] 01/30/22 01/30/22 01/30/22 07:37 13:11 15:54 WBC RBC Hgb Hct MCV MCH MCHC RDW Plt Count MPV Immature Gran % (Auto) Neut % (Auto) Lymph % (Auto) [place] % (Auto) Eos % (Auto) Baso % (Auto) Lymph # (Auto) [place] # (Auto) Eos # (Auto) Baso # (Auto) Abs Immat Gran (auto) Absolute Neuts (auto) Absolute Nucleated RBC Nucleated RBC % (auto) PT INR Sodium Potassium Chloride Carbon Dioxide Anion Gap BUN Creatinine Estim Creat Clear Calc Estimated GFR POC Glucose 151 H 116 H 199 H Random Glucose Calcium Magnesium Total Bilirubin Direct Bilirubin AST ALT Alkaline Phosphatase Total Protein Albumin COVID-19 ([facility]) COVID-19 [employer] 01/30/22 01/31/22 01/31/22 19:47 07:37 11:01 WBC RBC Hgb Hct MCV MCH MCHC RDW Plt Count MPV Immature Gran % (Auto) Neut % (Auto) Lymph % (Auto) [place] % (Auto) Eos % (Auto) Baso % (Auto) Lymph # (Auto) [place] # (Auto) Eos # (Auto) Baso # (Auto) Abs Immat Gran (auto) Absolute Neuts (auto) Absolute Nucleated RBC Nucleated RBC % (auto) PT INR Sodium Potassium Chloride Carbon Dioxide Anion Gap BUN Creatinine Estim Creat Clear Calc Estimated GFR POC Glucose 214 H 132 H 248 H Random Glucose Calcium Magnesium Total Bilirubin Direct Bilirubin AST ALT Alkaline Phosphatase Total Protein Albumin COVID-19 ([facility]) COVID-19 [employer] 01/31/22 01/31/22 02/01/22 15:58 19:29 07:36 WBC RBC Hgb Hct MCV MCH MCHC RDW Plt Count MPV Immature Gran % (Auto) Neut % (Auto) Lymph % (Auto) [place] % (Auto) Eos % (Auto) Baso % (Auto) Lymph # (Auto) [place] # (Auto) Eos # (Auto) Baso # (Auto) Abs Immat Gran (auto) Absolute Neuts (auto) Absolute Nucleated RBC Nucleated RBC % (auto) PT INR Sodium Potassium Chloride Carbon Dioxide Anion Gap BUN Creatinine Estim Creat Clear Calc Estimated GFR POC Glucose 140 H 288 H 240 H Random Glucose Calcium Magnesium Total Bilirubin Direct Bilirubin AST ALT Alkaline Phosphatase Total Protein Albumin COVID-19 ([facility]) COVID-19 [employer] 02/01/22 02/01/22 02/01/22 11:54 16:12 19:47 WBC RBC Hgb Hct MCV MCH MCHC RDW Plt Count MPV Immature Gran % (Auto) Neut % (Auto) Lymph % (Auto) [place] % (Auto) Eos % (Auto) Baso % (Auto) Lymph # (Auto) [place] # (Auto) Eos # (Auto) Baso # (Auto) Abs Immat Gran (auto) Absolute Neuts (auto) Absolute Nucleated RBC Nucleated RBC % (auto) PT INR Sodium Potassium Chloride Carbon Dioxide Anion Gap BUN Creatinine Estim Creat Clear Calc Estimated GFR POC Glucose 253 H 166 H 299 H Random Glucose Calcium Magnesium Total Bilirubin Direct Bilirubin AST ALT Alkaline Phosphatase Total Protein Albumin COVID-19 ([facility]) COVID-19 [employer] 02/02/22 02/02/22 02/02/22 07:16 11:09 15:51 WBC RBC Hgb Hct MCV MCH MCHC RDW Plt Count MPV Immature Gran % (Auto) Neut % (Auto) Lymph % (Auto) [place] % (Auto) Eos % (Auto) Baso % (Auto) Lymph # (Auto) [place] # (Auto) Eos # (Auto) Baso # (Auto) Abs Immat Gran (auto) Absolute Neuts (auto) Absolute Nucleated RBC Nucleated RBC % (auto) PT INR Sodium Potassium Chloride Carbon Dioxide Anion Gap BUN Creatinine Estim Creat Clear Calc Estimated GFR POC Glucose 187 H 220 H 162 H Random Glucose Calcium Magnesium Total Bilirubin Direct Bilirubin AST ALT Alkaline Phosphatase Total Protein Albumin COVID-19 ([facility]) COVID-19 [employer] 02/02/22 02/03/22 02/03/22 19:56 07:35 11:31 WBC RBC Hgb Hct MCV MCH MCHC RDW Plt Count MPV Immature Gran % (Auto) Neut % (Auto) Lymph % (Auto) [place] % (Auto) Eos % (Auto) Baso % (Auto) Lymph # (Auto) [place] # (Auto) Eos # (Auto) Baso # (Auto) Abs Immat Gran (auto) Absolute Neuts (auto) Absolute Nucleated RBC Nucleated RBC % (auto) PT INR Sodium Potassium Chloride Carbon Dioxide Anion Gap BUN Creatinine Estim Creat Clear Calc Estimated GFR POC Glucose 198 H 153 H 152 H Random Glucose Calcium Magnesium Total Bilirubin Direct Bilirubin AST ALT Alkaline Phosphatase Total Protein Albumin COVID-19 ([facility]) COVID-19 [employer] Airway Mallampati Class: III TM Dist: >3cm Neck ROM: Limited Assessment and Plan Assessment Anesthesia Assessment: Anesthesia Plan Discussed and Chart Reviewed Final Anesthetic Review Family History of Problems with Anesthesia: No History of Problems with Anesthesia: No NPO: Yes ASA Class: III Final Preanesthetic Review: No Changes in Pt Med Stat, Meds/Allgs Chart Reviewed, Consent Obtained/Reviewed and Anes Risks/Benef Reviewed Patient Risk: Intermediate Procedure Risk: Intermediate Anesthetic Plan Anesthetic Plan: Spinal Disposition: Standard PACU
--- NOTE | 2022-02-03 16:23 | HO.PM.IMPN ---
Subjective Subjective Date of Service: 02/03/22 Interval History: no acute events overnight. Awaiting surgery Review of Systems denies chest pain Denies shortness of breath Denies nausea vomiting diarrhea Denies fever chills Physical Exam Vital Signs: Vital Signs: Last Vital Signs Temp 98.1 F 02/03/22 11:33 Pulse 73 02/03/22 11:33 Resp 20 02/03/22 11:33 BP 133/74 02/03/22 11:33 Pulse Ox 96 02/03/22 11:33 BMI result Body Mass Index 29.7 Const: Other: no acute issues Resp: Other: clear to auscultation bilaterally no rales rhonchi wheezes Cardio: Other: no S4; positive S1-S2 no S3 murmurs rubs or gallops GI: Other: soft nontender nondistended normoactive bowel sounds Extrem: Other: left ankle posterior splint in place Objective Data Active Medications Acetaminophen (Acetaminophen 325 Mg Tablet) 650 mg PO Q6H PRN PRN Reason: Pain, Mild (Pain Scale 1-3) Amlodipine Besylate (Amlodipine Besylate 10 Mg Tablet) 10 mg PO BEDTIME [facility]; Protocol Last Admin: 02/02/22 20:37 Dose: 10 mg Documented by: AIMEE Artificial Tears (Artificial Tears 15 Ml Drops) 1 drop EYE-BOTH QID PRN PRN Reason: DRY EYES Aspirin (Aspirin Enteric Coated 81 Mg Tablet.) 81 mg PO DAILY [facility] Last Admin: 02/02/22 08:01 Dose: 81 mg Documented by: SCOOTER Atorvastatin Calcium (Atorvastatin Calcium 40 Mg Tablet) 40 mg PO BEDTIME [facility] Last Admin: 02/02/22 20:37 Dose: 40 mg Documented by: AIMEE Buprenorphine/Naloxone (Buprenorphine/Naloxone 8/2 Mg Film) 1 film SUBLINGUAL BID [facility] Last Admin: 02/03/22 08:22 Dose: 1 film Documented by: ORALIA Clotrimazole (Clotrimazole 1 % Cream 15 Gm Tube) 1 appl TOPICAL BID [facility]; Protocol Last Admin: 02/03/22 08:25 Dose: 1 appl Documented by: ORALIA Dextrose (Dextrose 50 % 25 Gm/50 Ml Syringe) 25 gm IVPUSH Q15M PRN; Protocol PRN Reason: per Hypoglycemia Standing Ord. Docusate Sodium (Docusate Sodium 100 Mg Capsule) 100 mg PO BEDTIME [facility] Last Admin: 02/02/22 20:37 Dose: 100 mg Documented by: AIMEE Docusate Sodium (Docusate Sodium 100 Mg Capsule) 100 mg PO DAILY [facility] Last Admin: 02/03/22 08:22 Dose: 100 mg Documented by: ORALIA Dorzolamide/Timolol (Dorzolamide/Timolo 2.23%/0.68% 10 Ml Drbtl) 1 drop EYE-BOTH BID [facility] Last Admin: 02/03/22 08:26 Dose: 1 drop Documented by: ORALIA Ferrous Sulfate (Ferrous Sulfate 300 Mg/5 Ml Liquid) 150 mg PO DAILY [facility] Last Admin: 02/03/22 08:21 Dose: 150 mg Documented by: ORALIA Fluticasone Propionate (Fluticasone Propionate 100 Mcg Blst.W.Dev) 1 puff INHALE RBID [facility] Last Admin: 02/03/22 08:30 Dose: 1 puff Documented by: THERESA Glucose (Glucose Gel 15 Gm Gel..Gram.) 15 gm PO Q15M PRN; Protocol PRN Reason: per Hypoglycemia Standing Ord. Hydromorphone HCl (Hydromorphone Hcl 0.5 Mg/0.5 Ml Syringe) 0.5 mg IVPUSH Q6H PRN; Protocol PRN Reason: Pain, Severe (Pain Scale 7-10) Sodium Chloride (Ns) 1,000 mls @ 70 mls/hr IVCONT .[id number] [facility] Last Admin: 02/03/22 11:46 Dose: 70 mls/hr Documented by: ORALIA Insulin Glargine (Insulin Glargine,Hum.Rec.Anlog 100 Unit/Ml 10 Ml Vial) 49 unit SUBCUT BEDTIME [facility] Last Admin: 02/02/22 22:42 Dose: 49 unit Documented by: AIMEE Insulin Human Lispro (Insulin Lispro 100 Unit/Ml 3 Ml Vial) 0 unit SUBCUT QIDACHS [facility]; Protocol Last Admin: 02/03/22 11:44 Dose: 2 unit Documented by: ORALIA Latanoprost (Latanoprost 0.005 % Ophth Yari 2.5 Ml Drops) 1 drop EYE-BOTH BEDTIME [facility] Last Admin: 02/02/22 22:52 Dose: Not Given Documented by: AIMEE Non-Admin Reason: Patient Refused Loratadine (Loratadine 10 Mg Tablet) 10 mg PO DAILY [facility] Last Admin: 02/03/22 08:24 Dose: 10 mg Documented by: ORALIA Magnesium Oxide (Magnesium Oxide 400 Mg Tablet) 400 mg PO BIDPC [facility] Last Admin: 02/03/22 08:23 Dose: 400 mg Documented by: ORALIA Metoprolol Succinate (Metoprolol Succinate Er 25 Mg Tab.Er.24h) 25 mg PO DAILY [facility]; Protocol Last Admin: 02/03/22 08:22 Dose: 25 mg Documented by: ORALIA Morphine Sulfate (Morphine Sulfate 4 Mg/Ml Cartridge) 4 mg IVPUSH Q3H PRN; Protocol PRN Reason: Pain, Mild (Pain Scale 1-3) Last Admin: 02/03/22 14:42 Dose: 4 mg Documented by: ORALIA Multivitamins/Vitamin C (Multivitamin Tablet) 1 tab PO DAILY [facility] Last Admin: 02/03/22 08:25 Dose: 1 tab Documented by: ORALIA Olanzapine (Olanzapine 5 Mg Tablet) 5 mg PO BEDTIME [facility] Last Admin: 02/02/22 20:37 Dose: 5 mg Documented by: AIMEE Omeprazole (Omeprazole 20 Mg Capsule.Dr) 20 mg PO DAILY [facility] Last Admin: 02/03/22 08:23 Dose: 20 mg Documented by: ORALIA Oxybutynin Chloride (Oxybutynin Chloride Er 5 Mg Tab.Er.24) 5 mg PO DAILY [facility] Last Admin: 02/03/22 08:24 Dose: 5 mg Documented by: ORALIA Oxycodone HCl (Oxycodone Hcl Immed Release 5 Mg Tablet) 10 mg PO Q6H PRN PRN Reason: Pain, Mild (Pain Scale 1-3) Last Admin: 01/31/22 14:22 Dose: 10 mg Documented by: ALISSON Oxycodone HCl (Oxycodone Hcl Immed Release 5 Mg Tablet) 10 mg PO BID [facility] Last Admin: 02/03/22 08:23 Dose: 10 mg Documented by: ORALIA Pharmacy Consult (Consult Rx Perform Med Rec) 1 each MISCELLANE ONCE PRN PRN Reason: Consult order Polyethylene Glycol (Polyethylene Glycol 3350 17 Gm Powd.Pack) 17 gm PO BID [facility] Last Admin: 02/03/22 08:22 Dose: 17 gm Documented by: ORALIA Senna (Sennosides 8.6 Mg Tablet) 8.6 mg PO BEDTIME PRN PRN Reason: Constipation Sodium Chloride (0.9 % Sodium Chloride Flush 3 Ml Syringe) 3 ml IVFLUSH QSHIFT [facility] Last Admin: 02/03/22 08:22 Dose: 3 ml Documented by: ORALIA Tamsulosin HCl (Tamsulosin Hcl 0.4 Mg Capsule) 0.4 mg PO BEDTIME [facility] Last Admin: 02/02/22 20:37 Dose: 0.4 mg Documented by: AIMEE Trazodone HCl (Trazodone Hcl 100 Mg Tablet) 100 mg PO BEDTIME PRN PRN Reason: Insomnia Trazodone HCl (Trazodone Hcl 100 Mg Tablet) 300 mg PO BEDTIME [facility] Last Admin: 02/02/22 20:37 Dose: 300 mg Documented by: AIMEE Labs CBC & Chem 7: 01/28/22 07:26 01/28/22 07:26 Labs: Laboratory Results - last 24 hr 02/02/22 02/03/22 02/03/22 19:56 07:35 11:31 POC Glucose 198 H 153 H 152 H Assessment and Plan (1) Bimalleolar ankle fracture: Status: Acute (2) Hypertension: Status: Acute (3) Diabetes mellitus: Status: Acute (4) Opioid dependence on agonist therapy: Status: Acute Plan 71 y/O M? with history of asthma, hypertension, hyperlipidemia, diabetes mellitus, opioid use,? possiblehistory of genital herpes, history of pneumonia presents with bimalleolar left ankle fracture 1.Bimalleolar?left ankle fracture - as per Orthopedic surgery today - continue current pain regimen adjust as indicated 2.HTN - acceptable control on current therapies - adjust as indicated 3.Diabetes II - Lispro correctional scale - adjust therapies as clinically indicated - ADA diet 4.Opiate dependency? -continue Suboxone. ? 5. Covid-19 positive - asymptomatic; conservative thera ?DVT prophylaxis:? mechanical devices requires inpatient hospitalization for surgical repair of bimalleolar left ankle fracture Quality Stroke Does the patient have a stroke diagnosis?: No VTE Prior VTE?: No VTE Risk Level:: Medical - moderate - high VTE Device Contraindication: N/A - Device Ordered VTE Drug Contraindication: N/A - Med Ordered
--- NOTE | 2022-02-03 17:24 | HO.ANESPROP2 ---
[facility] Active Problems Active Problems: All Active Problems (Updated 02/03/22 @ 16:26 by Vicente Salas DO) Opioid dependence on agonist therapy (Acute) Diabetes mellitus (Acute) Hypertension (Acute) Bimalleolar ankle fracture (Acute) COVID-19 (Acute) Hypomagnesemia (Acute) Acute respiratory failure with hypoxia (Acute) Elevated d-dimer (Acute) Syncope and collapse (Acute) TENA (acute kidney injury) (Acute) Vomiting (Acute) Rhabdomyolysis (Acute) Urinary urgency (Acute) BPH w urinary obs/LUTS (Acute) Anemia of chronic disease (Acute) Prepatellar bursitis, left knee (Acute) History of adenomatous polyp of colon (Acute) Chronic constipation (Chronic) GERD (gastroesophageal reflux disease) (Acute) Past Medical History Medical History Anxiety CAD (coronary artery disease) Chronic constipation COPD (chronic obstructive pulmonary disease) Diabetes mellitus Genital herpes GERD (gastroesophageal reflux disease) History of adenomatous polyp of colon Hypertension Opioid dependence on agonist therapy JAUN (obstructive sleep apnea) Pancreatic abnormality Prepatellar bursitis, left knee Family History Family History Mother No problems noted. Father Liver cancer Family history of problems with anesthesia: No Surgical History Surgical History No history of previous surgery History of Problems with Anesthesia: No Social History Social History Household Members: Significant Other Housing: Apartment Do you presently have visiting nurse or other home services: No Alcohol intake: never Patient Tobacco Use Status: Current everyday Tobacco user Tobacco use type: Cigarette Cigarettes Per Day: 3 Second Hand Smoke Exposure: No Substance Use Type: Heroin Advance Directives Date on File: 01/28/22 service: No Current occupational status: retired and disabled Current occupation: right handed Meds Allergies Allergy/AdvReac Type Severity Reaction Status Date / Time No Known Allergies Allergy Verified 01/27/22 11:10 Active Medications: Current Medications Acetaminophen (Acetaminophen 325 Mg Tablet) 650 mg PO Q6H PRN PRN Reason: Pain, Mild (Pain Scale 1-3) Amlodipine Besylate (Amlodipine Besylate 10 Mg Tablet) 10 mg PO BEDTIME [facility]; Protocol Last Admin: 02/02/22 20:37 Dose: 10 mg Documented by: Artificial Tears (Artificial Tears 15 Ml Drops) 1 drop EYE-BOTH QID PRN PRN Reason: DRY EYES Aspirin (Aspirin Enteric Coated 81 Mg Tablet.Dr) 81 mg PO DAILY [facility] Last Admin: 02/02/22 08:01 Dose: 81 mg Documented by: Atorvastatin Calcium (Atorvastatin Calcium 40 Mg Tablet) 40 mg PO BEDTIME [facility] Last Admin: 02/02/22 20:37 Dose: 40 mg Documented by: Buprenorphine/Naloxone (Buprenorphine/Naloxone 8/2 Mg Film) 1 film SUBLINGUAL BID [facility] Last Admin: 02/03/22 08:22 Dose: 1 film Documented by: Clotrimazole (Clotrimazole 1 % Cream 15 Gm Tube) 1 appl TOPICAL BID [facility]; Protocol Last Admin: 02/03/22 08:25 Dose: 1 appl Documented by: Dextrose (Dextrose 50 % 25 Gm/50 Ml Syringe) 25 gm IVPUSH Q15M PRN; Protocol PRN Reason: per Hypoglycemia Standing Ord. Docusate Sodium (Docusate Sodium 100 Mg Capsule) 100 mg PO BEDTIME [facility] Last Admin: 02/02/22 20:37 Dose: 100 mg Documented by: Docusate Sodium (Docusate Sodium 100 Mg Capsule) 100 mg PO DAILY [facility] Last Admin: 02/03/22 08:22 Dose: 100 mg Documented by: Dorzolamide/Timolol (Dorzolamide/Timolo 2.23%/0.68% 10 Ml Drbtl) 1 drop EYE-BOTH BID [facility] Last Admin: 02/03/22 08:26 Dose: 1 drop Documented by: Ferrous Sulfate (Ferrous Sulfate 300 Mg/5 Ml Liquid) 150 mg PO DAILY [facility] Last Admin: 02/03/22 08:21 Dose: 150 mg Documented by: Fluticasone Propionate (Fluticasone Propionate 100 Mcg Blst.W.Dev) 1 puff INHALE RBID [facility] Last Admin: 02/03/22 08:30 Dose: 1 puff Documented by: Glucose (Glucose Gel 15 Gm Gel..Gram.) 15 gm PO Q15M PRN; Protocol PRN Reason: per Hypoglycemia Standing Ord. Hydromorphone HCl (Hydromorphone Hcl 0.5 Mg/0.5 Ml Syringe) 0.5 mg IVPUSH Q6H PRN; Protocol PRN Reason: Pain, Severe (Pain Scale 7-10) Sodium Chloride (Ns) 1,000 mls @ 70 mls/hr IVCONT .[id number] [facility] Last Admin: 02/03/22 11:46 Dose: 70 mls/hr Documented by: Insulin Glargine (Insulin Glargine,Hum.Rec.Anlog 100 Unit/Ml 10 Ml Vial) 49 unit SUBCUT BEDTIME [facility] Last Admin: 02/02/22 22:42 Dose: 49 unit Documented by: Insulin Human Lispro (Insulin Lispro 100 Unit/Ml 3 Ml Vial) 0 unit SUBCUT QIDACHS [facility]; Protocol Last Admin: 02/03/22 16:35 Dose: Not Given Documented by: Latanoprost (Latanoprost 0.005 % Ophth Yari 2.5 Ml Drops) 1 drop EYE-BOTH BEDTIME [facility] Last Admin: 02/02/22 22:52 Dose: Not Given Documented by: Loratadine (Loratadine 10 Mg Tablet) 10 mg PO DAILY [facility] Last Admin: 02/03/22 08:24 Dose: 10 mg Documented by: Magnesium Oxide (Magnesium Oxide 400 Mg Tablet) 400 mg PO BIDPC [facility] Last Admin: 02/03/22 08:23 Dose: 400 mg Documented by: Metoprolol Succinate (Metoprolol Succinate Er 25 Mg Tab.Er.24h) 25 mg PO DAILY [facility]; Protocol Last Admin: 02/03/22 08:22 Dose: 25 mg Documented by: Morphine Sulfate (Morphine Sulfate 4 Mg/Ml Cartridge) 4 mg IVPUSH Q3H PRN; Protocol PRN Reason: Pain, Mild (Pain Scale 1-3) Last Admin: 02/03/22 14:42 Dose: 4 mg Documented by: Multivitamins/Vitamin C (Multivitamin Tablet) 1 tab PO DAILY [facility] Last Admin: 02/03/22 08:25 Dose: 1 tab Documented by: Olanzapine (Olanzapine 5 Mg Tablet) 5 mg PO BEDTIME [facility] Last Admin: 02/02/22 20:37 Dose: 5 mg Documented by: Omeprazole (Omeprazole 20 Mg Capsule.Dr) 20 mg PO DAILY [facility] Last Admin: 02/03/22 08:23 Dose: 20 mg Documented by: Oxybutynin Chloride (Oxybutynin Chloride Er 5 Mg Tab.Er.24) 5 mg PO DAILY [facility] Last Admin: 02/03/22 08:24 Dose: 5 mg Documented by: Oxycodone HCl (Oxycodone Hcl Immed Release 5 Mg Tablet) 10 mg PO Q6H PRN PRN Reason: Pain, Mild (Pain Scale 1-3) Last Admin: 01/31/22 14:22 Dose: 10 mg Documented by: Oxycodone HCl (Oxycodone Hcl Immed Release 5 Mg Tablet) 10 mg PO BID [facility] Last Admin: 02/03/22 08:23 Dose: 10 mg Documented by: Pharmacy Consult (Consult Rx Perform Med Rec) 1 each MISCELLANE ONCE PRN PRN Reason: Consult order Polyethylene Glycol (Polyethylene Glycol 3350 17 Gm Powd.Pack) 17 gm PO BID [facility] Last Admin: 02/03/22 08:22 Dose: 17 gm Documented by: Senna (Sennosides 8.6 Mg Tablet) 8.6 mg PO BEDTIME PRN PRN Reason: Constipation Sodium Chloride (0.9 % Sodium Chloride Flush 3 Ml Syringe) 3 ml IVFLUSH QSHIFT [facility] Last Admin: 02/03/22 16:35 Dose: Not Given Documented by: Tamsulosin HCl (Tamsulosin Hcl 0.4 Mg Capsule) 0.4 mg PO BEDTIME [facility] Last Admin: 02/02/22 20:37 Dose: 0.4 mg Documented by: Trazodone HCl (Trazodone Hcl 100 Mg Tablet) 100 mg PO BEDTIME PRN PRN Reason: Insomnia Trazodone HCl (Trazodone Hcl 100 Mg Tablet) 300 mg PO BEDTIME [facility] Last Admin: 02/02/22 20:37 Dose: 300 mg Documented by: Home Medications Medication Instructions Recorded Confirmed Last Taken Type aspirin 81 mg tablet,delayed 81 mg PO DAILY 06/06/20 01/27/22 03/26/21 History release lisinopril 40 mg tablet 40 mg PO DAILY 06/06/20 01/27/22 03/26/21 History metoprolol succinate 25 mg 25 mg PO DAILY 06/06/20 01/27/22 03/26/21 History tablet,extended release 24 hr sennosides 8.6 mg capsule (senna) 8.6 mg PO BEDTIME PRN 06/06/20 01/27/22 Unknown History buprenorphine 8 mg-naloxone 2 mg 1 film SUBLINGUAL BID 12/06/20 01/27/22 03/26/21 History sublingual film amlodipine 10 mg tablet 10 mg PO BEDTIME 03/26/21 01/27/22 03/25/21 History atorvastatin 40 mg tablet 40 mg PO BEDTIME 03/26/21 01/27/22 03/25/21 History dorzolamide 22.3 mg-timolol 6.8 1 drp OPHTHALMIC (EYE) BID 03/26/21 01/27/22 03/26/21 History mg/mL eye drops fluticasone propionate 110 1 puff PO BID PRN 03/26/21 01/27/22 Unknown History mcg/actuation HFA aerosol inhaler (Flovent HFA) glipizide 5 mg tablet, extended 5 mg PO DAILY 03/26/21 01/27/22 03/26/21 History release 24 hr insulin detemir U-100 100 unit/mL 80 unit SUBCUT BEDTIME 03/26/21 01/27/22 03/25/21 History subcutaneous solution (Levemir U-100 Insulin) latanoprost 0.005 % eye drops 1 drp OPHTHALMIC (EYE) BEDTIME 03/26/21 01/27/22 03/25/21 History metformin 1,000 mg tablet 1,000 mg PO BID 03/26/21 01/27/22 03/26/21 History multivitamin-ferrous 1 tab PO DAILY 03/26/21 01/27/22 03/26/21 History fumarate-folic acid 18 mg-400 mcg tablet (Certavite-Antioxidant) olanzapine 5 mg tablet (Zyprexa) 5 mg PO BEDTIME 03/26/21 01/27/22 03/25/21 History omega-3 fatty acids-fish oil 340 1 cap PO TID 03/26/21 01/27/22 03/26/21 History mg-1,000 mg capsule (Fish Oil) peg [id number] 1 1 drp OPHTHALMIC (EYE) QID 03/26/21 01/27/22 03/26/21 History %-0.2 %-0.2 % eye drops (Dry Eye Relief) trazodone 100 mg tablet 100 mg PO BEDTIME PRN 03/26/21 01/27/22 03/25/21 History trazodone 150 mg tablet 300 tab PO BEDTIME 03/26/21 01/27/22 03/25/21 History blood sugar diagnostic (FreeStyle #10 ea 09/11/21 10/23/21 Unknown History Lite Strips) clotrimazole 1 % topical cream 1 appl TOPICAL BID 09/11/21 01/27/22 Unknown History insulin syringe-needle U-100 1 mL #10 ea 09/11/21 10/23/21 Unknown History 31 gauge x 5/16 lancets 33 gauge (TRUEplus Lancets) #100 ea 09/11/21 10/23/21 Unknown History loratadine 10 mg tablet 10 mg PO QAM 09/11/21 01/27/22 Unknown History naproxen 500 mg tablet 1 tab PO BID PRN 01/27/22 01/27/22 Unknown History Exam Exam Date and Time: February 03, [id number] Height,Weight and Vital Signs: Height 5 ft 7 in Weight 86.183 kg Last Vital Signs Temp 98.1 F 02/03/22 11:33 Pulse 73 02/03/22 11:33 Resp 20 02/03/22 11:33 BP 133/74 02/03/22 11:33 Pulse Ox 96 02/03/22 11:33 Pertinent Lab Results Pertinent Lab Results: Laboratory Tests 01/27/22 01/27/22 01/27/22 11:19 11:19 11:19 WBC 13.6 H RBC 3.91 L Hgb 11.7 L Hct 34.6 L MCV 88.5 MCH 29.9 MCHC 33.8 RDW 12.2 Plt Count 315 MPV 9.6 Immature Gran % (Auto) 0.9 H Neut % (Auto) 75.3 H Lymph % (Auto) 15.9 L Bremer % (Auto) 7.3 Eos % (Auto) 0.5 Baso % (Auto) 0.1 Lymph # (Auto) 2.2 Bremer # (Auto) 1.0 Eos # (Auto) 0.1 Baso # (Auto) 0.0 Abs Immat Gran (auto) 0.12 H Absolute Neuts (auto) 10.3 H Absolute Nucleated RBC 0.000 Nucleated RBC % (auto) 0.0 PT 13.3 H INR 1.2 H Sodium 135 Potassium 3.7 Chloride 95 L Carbon Dioxide 28 Anion Gap 16 BUN 19 H Creatinine 1.29 Estim Creat Clear Calc 53.4 Estimated GFR 55 POC Glucose Random Glucose 127 H D Calcium 9.2 D Magnesium 1.4 L* Total Bilirubin 0.8 Direct Bilirubin 0.3 AST 50 H D ALT 31 Alkaline Phosphatase 75 Total Protein 7.2 Albumin 4.2 COVID-19 ([facility]) COVID-19 [employer] 01/27/22 01/27/22 01/27/22 11:19 18:34 21:23 WBC RBC Hgb Hct MCV MCH MCHC RDW Plt Count MPV Immature Gran % (Auto) Neut % (Auto) Lymph % (Auto) Bremer % (Auto) Eos % (Auto) Baso % (Auto) Lymph # (Auto) Bremer # (Auto) Eos # (Auto) Baso # (Auto) Abs Immat Gran (auto) Absolute Neuts (auto) Absolute Nucleated RBC Nucleated RBC % (auto) PT INR Sodium Potassium Chloride Carbon Dioxide Anion Gap BUN Creatinine Estim Creat Clear Calc Estimated GFR POC Glucose 199 H 273 H Random Glucose Calcium Magnesium Total Bilirubin Direct Bilirubin AST ALT Alkaline Phosphatase Total Protein Albumin COVID-19 ([facility]) Positive A COVID-19 [employer] See Note 01/28/22 01/28/22 01/28/22 07:04 07:26 07:26 WBC 11.4 H RBC 3.75 L Hgb 11.7 L Hct 33.6 L MCV 89.6 MCH 31.2 MCHC 34.8 RDW 12.4 Plt Count 281 MPV 9.5 Immature Gran % (Auto) Neut % (Auto) Lymph % (Auto) Bremer % (Auto) Eos % (Auto) Baso % (Auto) Lymph # (Auto) Bremer # (Auto) Eos # (Auto) Baso # (Auto) Abs Immat Gran (auto) Absolute Neuts (auto) Absolute Nucleated RBC 0.000 Nucleated RBC % (auto) 0.0 PT INR Sodium 137 Potassium 3.4 Chloride 97 Carbon Dioxide 31 H Anion Gap 12 BUN 11 Creatinine 0.75 Estim Creat Clear Calc 91.9 Estimated GFR > 60 POC Glucose 199 H Random Glucose 197 H D Calcium 9.2 Magnesium 1.6 Total Bilirubin Direct Bilirubin AST ALT Alkaline Phosphatase Total Protein Albumin COVID-19 ([facility]) COVID-19 [employer] 01/28/22 01/28/22 01/28/22 12:52 17:20 21:00 WBC RBC Hgb Hct MCV MCH MCHC RDW Plt Count MPV Immature Gran % (Auto) Neut % (Auto) Lymph % (Auto) Bremer % (Auto) Eos % (Auto) Baso % (Auto) Lymph # (Auto) Bremer # (Auto) Eos # (Auto) Baso # (Auto) Abs Immat Gran (auto) Absolute Neuts (auto) Absolute Nucleated RBC Nucleated RBC % (auto) PT INR Sodium Potassium Chloride Carbon Dioxide Anion Gap BUN Creatinine Estim Creat Clear Calc Estimated GFR POC Glucose 167 H 247 H 182 H Random Glucose Calcium Magnesium Total Bilirubin Direct Bilirubin AST ALT Alkaline Phosphatase Total Protein Albumin COVID-19 ([facility]) COVID-19 [employer] 01/28/22 01/29/22 01/29/22 22:00 02:49 07:32 WBC RBC Hgb Hct MCV MCH MCHC RDW Plt Count MPV Immature Gran % (Auto) Neut % (Auto) Lymph % (Auto) Bremer % (Auto) Eos % (Auto) Baso % (Auto) Lymph # (Auto) Bremer # (Auto) Eos # (Auto) Baso # (Auto) Abs Immat Gran (auto) Absolute Neuts (auto) Absolute Nucleated RBC Nucleated RBC % (auto) PT INR Sodium Potassium Chloride Carbon Dioxide Anion Gap BUN Creatinine Estim Creat Clear Calc Estimated GFR POC Glucose 178 H 155 H 210 H Random Glucose Calcium Magnesium Total Bilirubin Direct Bilirubin AST ALT Alkaline Phosphatase Total Protein Albumin COVID-19 ([facility]) COVID-19 [employer] 01/29/22 01/29/22 01/29/22 13:16 18:09 19:58 WBC RBC Hgb Hct MCV MCH MCHC RDW Plt Count MPV Immature Gran % (Auto) Neut % (Auto) Lymph % (Auto) Bremer % (Auto) Eos % (Auto) Baso % (Auto) Lymph # (Auto) Bremer # (Auto) Eos # (Auto) Baso # (Auto) Abs Immat Gran (auto) Absolute Neuts (auto) Absolute Nucleated RBC Nucleated RBC % (auto) PT INR Sodium Potassium Chloride Carbon Dioxide Anion Gap BUN Creatinine Estim Creat Clear Calc Estimated GFR POC Glucose 127 H 201 H 251 H Random Glucose Calcium Magnesium Total Bilirubin Direct Bilirubin AST ALT Alkaline Phosphatase Total Protein Albumin COVID-19 ([facility]) COVID-19 [employer] 01/30/22 01/30/22 01/30/22 07:37 13:11 15:54 WBC RBC Hgb Hct MCV MCH MCHC RDW Plt Count MPV Immature Gran % (Auto) Neut % (Auto) Lymph % (Auto) Bremer % (Auto) Eos % (Auto) Baso % (Auto) Lymph # (Auto) Bremer # (Auto) Eos # (Auto) Baso # (Auto) Abs Immat Gran (auto) Absolute Neuts (auto) Absolute Nucleated RBC Nucleated RBC % (auto) PT INR Sodium Potassium Chloride Carbon Dioxide Anion Gap BUN Creatinine Estim Creat Clear Calc Estimated GFR POC Glucose 151 H 116 H 199 H Random Glucose Calcium Magnesium Total Bilirubin Direct Bilirubin AST ALT Alkaline Phosphatase Total Protein Albumin COVID-19 ([facility]) COVID-19 [employer] 01/30/22 01/31/22 01/31/22 19:47 07:37 11:01 WBC RBC Hgb Hct MCV MCH MCHC RDW Plt Count MPV Immature Gran % (Auto) Neut % (Auto) Lymph % (Auto) Bremer % (Auto) Eos % (Auto) Baso % (Auto) Lymph # (Auto) Bremer # (Auto) Eos # (Auto) Baso # (Auto) Abs Immat Gran (auto) Absolute Neuts (auto) Absolute Nucleated RBC Nucleated RBC % (auto) PT INR Sodium Potassium Chloride Carbon Dioxide Anion Gap BUN Creatinine Estim Creat Clear Calc Estimated GFR POC Glucose 214 H 132 H 248 H Random Glucose Calcium Magnesium Total Bilirubin Direct Bilirubin AST ALT Alkaline Phosphatase Total Protein Albumin COVID-19 ([facility]) COVID-19 [employer] 01/31/22 01/31/22 02/01/22 15:58 19:29 07:36 WBC RBC Hgb Hct MCV MCH MCHC RDW Plt Count MPV Immature Gran % (Auto) Neut % (Auto) Lymph % (Auto) Bremer % (Auto) Eos % (Auto) Baso % (Auto) Lymph # (Auto) Bremer # (Auto) Eos # (Auto) Baso # (Auto) Abs Immat Gran (auto) Absolute Neuts (auto) Absolute Nucleated RBC Nucleated RBC % (auto) PT INR Sodium Potassium Chloride Carbon Dioxide Anion Gap BUN Creatinine Estim Creat Clear Calc Estimated GFR POC Glucose 140 H 288 H 240 H Random Glucose Calcium Magnesium Total Bilirubin Direct Bilirubin AST ALT Alkaline Phosphatase Total Protein Albumin COVID-19 ([facility]) COVID-19 [employer] 02/01/22 02/01/22 02/01/22 11:54 16:12 19:47 WBC RBC Hgb Hct MCV MCH MCHC RDW Plt Count MPV Immature Gran % (Auto) Neut % (Auto) Lymph % (Auto) Bremer % (Auto) Eos % (Auto) Baso % (Auto) Lymph # (Auto) Bremer # (Auto) Eos # (Auto) Baso # (Auto) Abs Immat Gran (auto) Absolute Neuts (auto) Absolute Nucleated RBC Nucleated RBC % (auto) PT INR Sodium Potassium Chloride Carbon Dioxide Anion Gap BUN Creatinine Estim Creat Clear Calc Estimated GFR POC Glucose 253 H 166 H 299 H Random Glucose Calcium Magnesium Total Bilirubin Direct Bilirubin AST ALT Alkaline Phosphatase Total Protein Albumin COVID-19 ([facility]) COVID-19 [employer] 02/02/22 02/02/22 02/02/22 07:16 11:09 15:51 WBC RBC Hgb Hct MCV MCH MCHC RDW Plt Count MPV Immature Gran % (Auto) Neut % (Auto) Lymph % (Auto) Bremer % (Auto) Eos % (Auto) Baso % (Auto) Lymph # (Auto) Bremer # (Auto) Eos # (Auto) Baso # (Auto) Abs Immat Gran (auto) Absolute Neuts (auto) Absolute Nucleated RBC Nucleated RBC % (auto) PT INR Sodium Potassium Chloride Carbon Dioxide Anion Gap BUN Creatinine Estim Creat Clear Calc Estimated GFR POC Glucose 187 H 220 H 162 H Random Glucose Calcium Magnesium Total Bilirubin Direct Bilirubin AST ALT Alkaline Phosphatase Total Protein Albumin COVID-19 ([facility]) COVID-19 [employer] 02/02/22 02/03/22 02/03/22 19:56 07:35 11:31 WBC RBC Hgb Hct MCV MCH MCHC RDW Plt Count MPV Immature Gran % (Auto) Neut % (Auto) Lymph % (Auto) Bremer % (Auto) Eos % (Auto) Baso % (Auto) Lymph # (Auto) Bremer # (Auto) Eos # (Auto) Baso # (Auto) Abs Immat Gran (auto) Absolute Neuts (auto) Absolute Nucleated RBC Nucleated RBC % (auto) PT INR Sodium Potassium Chloride Carbon Dioxide Anion Gap BUN Creatinine Estim Creat Clear Calc Estimated GFR POC Glucose 198 H 153 H 152 H Random Glucose Calcium Magnesium Total Bilirubin Direct Bilirubin AST ALT Alkaline Phosphatase Total Protein Albumin COVID-19 ([facility]) COVID-19 Clin Com Assessment and Plan Final Anesthetic Review Family History of Problems with Anesthesia: No History of Problems with Anesthesia: No
--- NOTE | 2022-02-03 17:31 | PM.OP ---
Brief Operative Note Date of Service: 02/03/22 Pre-op diagnosis: Left bimalleolar ankle fracture Post-op diagnosis: same Procedure: ORIF left alexis Implants: Telma Surgeon: Jigar Lee MD Anesthesia: spinal Was an [employer] used for this Procedure?: Yes [employer]: Stephania Najera Estimated blood loss (mL): 50 Tourniquet time (min): 75 IV fluids (mL): 1,000 Pathology: none sent Condition: stable Disposition: PACU
--- NOTE | 2022-02-03 19:39 | PC.NURSE ---
Came onto shift and patient demanding to leave. The aide and rounder brought to my attention that patient unhooked self from IV fluids, got dressed, and said that his ride was outside. He then refused to stay in room and security was then called. Nursing threshing department supervisor was made aware of incident and went to speak with patient. An AMA form was then completed and overnight hospitalist notified.
[2022-02-03 19:42] LABS: HIV AB/AG Nonreactive (Nonreactive); HIV Num 1 0.09 S/CO (0.00-0.99)
--- NOTE | 2022-02-03 21:43 | PM.EVENT ---
Event Note Date of Service: 02/03/22 Event Note: Against medical advise note: Patient left AMA, signed Forms with the RN. Did not wait for the MD. per RN patient has been making sense, has insight into his medical condition.
--- NOTE | 2022-02-04 08:18 | PM.DS ---
DS: Providers Provider Date of Service: 02/04/22 Date of admission: 01/27/22 16:03 Date of discharge: 02/03/22 Primary care physician: Jax Moe MD Consults: 01/27/22 16:16 Consult to Infectious Diseases Routine Consulting Provider: Maryellen Alan Reason for consultation: covid positive ,left foot blister Has provider been notified: No 01/27/22 19:51 Consult to Orthopedics Routine Consulting Provider: Jigar Lee Reason for consultation: left ankle fx Has provider been notified: No DS: Diagnosis Discharge Diagnosis (1) Bimalleolar ankle fracture: Status: Acute (2) Hypertension: Status: Acute (3) Diabetes mellitus: Status: Acute (4) Opioid dependence on agonist therapy: Status: Acute DS: Summary Hospital Course Hospital Course: 71 y/O M? with history of asthma, hypertension, hyperlipidemia, diabetes mellitus, opioid use,? possiblehistory of genital herpes, history of pneumonia:? came to the hospital because he fell down on Wednesday and had sustained ankle fracture when he went for fishing- he said he fell into the grass area, and afterwards started to have ankle pain- subsequently came to the emergency room- found to have ankle fracture- had possible reduction with with the pain medication 01/25- discharge with splinting and nonweightbearing on the left side, now patient is coming with significant pain and blister in the ankle area ?discussed with the surgery recommended to admit the patient for pain control and skin care. admitted to hospital in on 02/03/2022 underwent ORIF left ankle. In the immediate postop period, Patient signed out AMA. Time Spent with Patient Time attestation: Total time spent providing and/or coordinating discharge services: Discharge coordination time: Greater than 30 minutes Quality: Safe Use of Opioids Does Pt have an Active Cancer Diagnosis on the Problem List?: No Quality: Stroke Does the patient have a stroke diagnosis?: No Physical Exam Vital Signs: Vital Signs: Last Vital Signs Temp 96.9 F 02/03/22 18:04 Pulse 70 02/03/22 18:04 Resp 16 02/03/22 18:04 BP 134/89 02/03/22 18:04 Pulse Ox 98 02/03/22 18:04 O2 Del Method 02/03/22 18:04 O2 Flow Rate 5 01/28/22 08:00 BMI result Body Mass Index 29.7 DS: Data Data Completed and Pending Labs on day of discharge: Laboratory Results - last 24 hr 02/03/22 02/03/22 11:31 18:55 POC Glucose 152 H HIV 1&2 Ab/P24 Ag 4thGn Nonreactive Discharge Plan Discharge Patient Disposition: Left Against Medical Advice Discharge Diagnosis: bimalleolar left ankle fracture Referrals: Jax Moe MD [Primary Care Provider] - 1 Week Discharge Medications: No Action ferrous sulfate 15 mg iron (75 mg)/mL drops 2 ml PO DAILY 30 Days Qty: 60 4RF omeprazole 20 mg capsule,delayed release(DR/EC) 20 mg PO DAILY 90 Days Qty: 90 1RF latanoprost 0.005 % drops 1 drp ophthalmic (eye) BEDTIME atorvastatin 40 mg tablet 40 mg PO BEDTIME olanzapine [Zyprexa] 5 mg tablet 5 mg PO BEDTIME glipizide 5 mg tablet extended release 24hr 5 mg PO DAILY trazodone 100 mg tablet 100 mg PO BEDTIME PRN (Reason: Insomnia) amlodipine 10 mg tablet 10 mg PO BEDTIME metformin 1,000 mg tablet 1,000 mg PO BID dorzolamide-timolol 22.3-6.8 mg/mL drops 1 drp ophthalmic (eye) BID Flovent HFA 110 mcg/actuation HFA aerosol inhaler 1 puff PO BID PRN (Reason: Wheezing) Dry Eye Relief 1-0.2-0.2 % drops 1 drp ophthalmic (eye) QID Levemir U-100 Insulin 100 unit/mL solution 80 unit subcut BEDTIME Fish Oil 340-1,000 mg capsule 1 cap PO TID Certavite-Antioxidant 18-400 mg-mcg tablet 1 tab PO DAILY trazodone 150 mg tablet 300 tab PO BEDTIME lidocaine 4 % adhesive patch,medicated 1 patch topical DAILY PRN (Reason: pain) Qty: 10 0RF Rx Instructions: may leave on for up to 12 hrs naproxen 500 mg tablet 1 tab PO BID PRN (Reason: pain) aspirin 81 mg tablet,delayed release (DR/EC) 81 mg PO DAILY lisinopril 40 mg tablet 40 mg PO DAILY metoprolol succinate 25 mg tablet extended release 24 hr 25 mg PO DAILY senna 8.6 mg capsule 8.6 mg PO BEDTIME PRN (Reason: Constipation) buprenorphine-naloxone 8-2 mg film 1 film sublingual BID (DME) lancets [TRUEplus Lancets] 33 gauge misc See Rx Instructions Not Applicable TID Qty: 100 Rx Instructions: As directed clotrimazole 1 % cream 1 appl topical BID loratadine 10 mg tablet 10 mg PO QAM (DME) insulin syringe-needle U-100 1 mL 31 gauge x 5/16 syringe See Rx Instructions subcut DAILY Qty: 10 Rx Instructions: As directed (DME) FreeStyle Lite Strips Strip See Rx Instructions Not Applicable TID Qty: 10 Rx Instructions: As directed oxybutynin chloride 5 mg tablet extended release 24hr 5 mg PO DAILY 90 Days Qty: 90 3RF tamsulosin 0.4 mg capsule 0.4 mg PO BEDTIME 90 Days Qty: 90 3RF Discharge Orders: Discharge Order (Routine); Ordered 02/04/22 Ordered By: Vicente Salas Diet: advance to usual diet Activity on Discharge: As tolerated Care Plan Goals: AMA Health Concerns: AMA Plan of Treatment: AMA Assessment: AMA Discharge Date/Time: 02/03/22 19:51
--- NOTE | 2022-02-04 08:22 | W.PM.OPN ---
Operative Note Operative Note Date of Service: 02/03/22 Narrative: Date of Service: 02/03/22 Pre-op diagnosis: Left bimalleolar ankle fracture Post-op diagnosis: same Procedure: ORIF left alexis Implants: [place] Surgeon: Jigar Lee MD Anesthesia: spinal Was an Sales Promoter used for this Procedure?: Yes Sales Promoter: Stephania Najera Estimated blood loss (mL): 50 Tourniquet time (min): 75 IV fluids (mL): 1,000 Pathology: none sent Condition: stable Disposition: PACU Indications: This is a diabetic M with a bimalleolar fracture with severe STS. He fared poorly in the outpatient setting and was readmitted with extensive blistering and swelling. He was elevated and take to the OR today for operative fixation. Procedure in detail: Patient was brought to the operating room and placed supine on the operative table. All bony prominences were well padded and a time-out was called to identify proper site proper procedure proper surgeon. IV antibiotics per weight were administered. I began by exsanguinating limb is slightly tourniquet to 300 mm Hg. I then made a standard posterolateral incision over the fibula. Full-thickness flaps were taken down to the fibular shaft and distal fibula. The fracture was identified and cleaned with a combination of curette, rongeur and irrigation. A lobster claw was used to provisionally reduce the fracture and a 8 hole distal fibular locking plate was applied using standard AO technique. Biplanar fluoroscopy was used to confirm hardware position and fracture reduction. Once I was satisfied that both of these were acceptable I irrigated copiously and turned my attention to the medial side. The transverse medial malleolar fracture was identified after an oblique skin incision. Full-thickness skin flaps were developed and, With a sharp tenaculum, the fracture was reduced. 2 threaded K-wires were then placed from distal to proximal and perpendicular to the fracture. Biplanar fluoroscopy was used to confirm positioning and then they were overdrilled and 2 40 mm 4.0 partially-threaded cannulated cancellous screws were placed across the fracture. I was satisfied with the position and the fracture reduction based on biplanar fluoroscopy. This syndesmosis was tested using external rotation test and was found to be stable. Therefore all instrumentation was removed and copious irrigation was performed. Absorbable suture and cruzito were used for closure and the patient was placed into sterile dressings and a well-padded posterior splint. Tourniquet was let down and the patient was extubated brought to recovery room in stable condition there were no known complications. At time of incision he had a positive wrinkle test. I was able to close the insicions easily and the skin was healthy. There were healed fracture blisters proximal to the medial incision.
== END 2022-02-03 19:51 | disposition left against medical advice (07) | DRG 492 ==
LOC: HO.ED 11:23 → HO.EDOVER 16:39 → HO.IMC 01-30 13:46
PROVIDERS: Orthopaedic Surgery; Physician Assistant; Admitting Provider Internal Medicine; Emergency Provider Emergency Medicine; PCP Internal Medicine; Visit Provider Hospitalist
PROC: 0QSK04Z Reposition Left Fibula with Internal Fixation Device, Open Approach (ICD-10-PCS; principal; 2022-02-03 15:40)
DX: S82.842A Displaced bimalleolar fracture of left lower leg, initial encounter for closed fracture (principal); U07.1 COVID-19; F11.20 Opioid dependence, uncomplicated; I25.10 Atherosclerotic heart disease of native coronary artery without angina pectoris; F41.9 Anxiety disorder, unspecified; J44.9 Chronic obstructive pulmonary disease, unspecified; F17.210 Nicotine dependence, cigarettes, uncomplicated; Z71.6 Tobacco abuse counseling; G47.33 Obstructive sleep apnea (adult) (pediatric); W10.2XXA Fall (on)(from) incline, initial encounter; K59.09 Other constipation; K21.9 Gastro-esophageal reflux disease without esophagitis; N40.0 Benign prostatic hyperplasia without lower urinary tract symptoms; I10 Essential (primary) hypertension; E11.9 Type 2 diabetes mellitus without complications; E78.5 Hyperlipidemia, unspecified; E83.42 Hypomagnesemia; Z87.01 Personal history of pneumonia (recurrent); Z86.010 Personal history of colon polyps; Z79.4 Long term (current) use of insulin; Z79.82 Long term (current) use of aspirin; Z79.51 Long term (current) use of inhaled steroids; Z79.84 Long term (current) use of oral hypoglycemic drugs; Z79.899 Other long term (current) drug therapy
CPT/HCPCS: 36415; 71250; 73600; 80048; 80076; 82947; 83735; 85025; 85027; 85610; 87635; 93005; 94640; 96365; 96366; 96375; 99285; C1713; J1170; J1885; J2250; J2270; J2405; J2795; J3010; J3475

== ENCOUNTER 2022-02-06 14:22 | Emergency (ER) | payer OTHER, SELFPAY ==
--- NOTE | ~2022-02-06 | CT_ITS ---
EXAMINATION: CT ANGIOGRAM OF THE CHEST WITH AND WITHOUT CONTRAST (CT PULMONARY ANGIOGRAM FOR PE) CLINICAL INFORMATION: Chest pain and shortness of breath. Recent surgery. COMPARISON: Chest x-ray 02/06/[address] 01/27/2022 TECHNIQUE: Prior to contrast administration, noncontrast localization images were obtained. Subsequently, multidetector volumetric imaging was performed from the thoracic inlet to below the diaphragms following the administration of 75 mL Omnipaque 350 intravenous contrast. No contrast reaction reported Sagittal, coronal, and MIP oblique sagittal reformatted images were obtained on the CT workstation, uploaded to PACS, and reviewed. This CT examination was performed using dose optimization techniques as appropriate, variously including the following: *Automated exposure control *Adjustment of mA and/or kV according to patient size (this includes techniques or standardized protocols for targeted exams where dose is matched to indication/reason for exam; i.e. extremities or head) *Use of iterative reconstruction technique Total exam dose-length product 392 mGy-cm FINDINGS: The heart is normal in size. Coronary artery calcifications are present. There is no pericardial effusion. No pulmonary arterial filling defect to suggest pulmonary embolus. Normal caliber thoracic aorta. No gross mediastinal or hilar lymphadenopathy. No pathologically enlarged axillary lymph nodes. Central airways are patent. Lungs are well aerated. There is no lobar consolidation. No pleural effusion or pneumothorax. A few tiny pulmonary nodules/nodular densities are stable, for example a 3 mm nodule within the right upper lobe (image [id number], series 7). No new suspicious pulmonary nodules visualized. Visualized portions of the upper abdomen again demonstrate bilateral adrenal lesions. Mild degenerative changes of the spine. Old healed rib fractures. CT/CT angio chest PE protocol IMPRESSION: No pulmonary embolus. VTE: negative
--- NOTE | ~2022-02-06 | XR_ITS ---
EXAMINATION: XR CHEST CLINICAL INFORMATION: Chest pain. COMPARISON: 06/19/2021 chest radiograph. TECHNIQUE: 2 views of the chest were obtained. FINDINGS: The lungs are clear. There are no pleural effusions. The heart and mediastinal structures are unremarkable. XR/XR chest 2V IMPRESSION: No acute cardiopulmonary process.
--- NOTE | 2022-02-06 14:27 | ECG_ITS ---
Test Reason : nausea Blood Pressure : / mmHG Vent. Rate : 066 BPM Atrial Rate : 066 BPM P-R Int : 174 ms QRS Dur : 122 ms QT Int : 444 ms P-R-T Axes : 073 -69 051 degrees QTc Int : 465 ms Normal sinus rhythm Left anterior fascicular block Minimal voltage criteria for LVH, may be normal variant ( [place] product ) Abnormal ECG When compared with ECG of 27-JAN-2022 11:45, No significant change was found Referred By: Do Baliey Electronically Signed By:MARY OCASIO
[2022-02-06 14:29] VITALS: BP 123/61; PULSE 71; RESP 12; TEMP 36.8; O2SAT 95; BMI 32.5
[2022-02-06 14:46] LABS: Glucose, Whole Blood 275 mg/dL (60-115)
[2022-02-06] MEDS: 0.9 % Sodium Chloride 1,000 ML 999 ML IV (14:49)
[2022-02-06] MEDS: ondansetron HCL 4 MG/2 ML VIAL IVPUSH (14:58)
[2022-02-06 15:02] LABS: MANUAL DIFF FLAG NO
[2022-02-06 15:03] LABS: Basophils Percent Auto 0.2 % (0-2); Eosinophils Percent Auto 0.2 % (0-4); Hematocrit 31.5 % (42.0-52.0); Hemoglobin 10.7 g/dl (14.0-18.0); Imm Gran Abs Auto 0.07 X10*3/uL (0.00-0.03); Imm Gran Pct Auto 0.6 % (0.0-0.4); Lymphocytes Absolute Auto 1.2 X10*3/uL (1.2-4.9); Lymphocytes Percent Auto 9.7 % (20-40); Mean Corpuscular Hemoglobin 30.1 pg (27.0-33.0); Mean Corpuscular Volume 88.5 fL (80.0-98.0); Mean Platelet Volume 9.5 fL (9.4-12.4); Monocytes Absolute Auto 0.8 X10*3/uL (0.1-1.2); Monocytes Percent Auto 6.7 % (2-11); Neutrophils Absolute Auto 10.4 x10*3/uL (2.0-8.3); Neutrophils Percent Auto 82.6 % (45-73); Platelet Count 403 X10*3/uL (160-400); Red Blood Count 3.56 X10*6/uL (4.60-5.80); Red Cell Distribution Width 12.3 % (11.0-16.0); White Blood Count 12.6 X10*3/uL (4.8-10.8)
[2022-02-06 15:15] LABS: Ethanol < 10 mg/dL
[2022-02-06 15:19] LABS: Alanine Aminotransferase 52 U/L (0-40); Albumin Level 3.9 g/dL (3.5-5.0); Alkaline Phosphatase 83 U/L (39-117); Anion Gap 15 (12-20); Aspartate Amino Transferase 137 U/L (5-37); Blood Urea Nitrogen 35 mg/dL (9-16); Calcium 9.8 mg/dL (8.4-10.2); Carbon Dioxide 31 mmol/L (22-29); Chloride 90 mmol/L (96-108); Estimated Glomerular Filt Rate > 60; Glucose Random 293 mg/dL (60-115); Potassium 3.9 mmol/L (3.3-5.1); Sodium 132 mmol/L (135-145); Total Protein 7.4 g/dL (6.5-8.0)
[2022-02-06 15:21] LABS: COVID-19 Test Negative (Negative); IDNOW Serial# 16C4AD1C
[2022-02-06 15:22] LABS: D Dimer High Sensitivity 6732 NG/ML; Troponin-I High Sensitivity 7.4 ng/L (<3.5-35.0)
--- NOTE | 2022-02-06 15:33 | ED.CHESTPAIN ---
HPI - Chest Pain General Chief Complaint: General Medical <Do Bailey BRET - Last Filed: 02/06/22 18:13> Stated Complaint: ankle pain, vomiting <Do Bailey BRET - Last Filed: 02/06/22 18:13> Time Seen by Provider: 02/06/22 14:27 <Do BaileyBRET - Last Filed: 02/06/22 18:13> Source: patient <Do Bailey [employer] - Last Filed: 02/06/22 18:13> Mode of arrival: EMS <Do Bailey BRET - Last Filed: 02/06/22 18:13> Limitations: no limitations <Do Bailey CNP - Last Filed: 02/06/22 18:13> History of Present Illness HPI narrative: patient presents emergency department via EMS. Initially called EMS for evaluation of left ankle pain in the setting of recent surgery. While in route he developed diffuse anterior chest pain, shortness of breath, diaphoresis, and vomiting. He states that at home he was not having any of the symptoms aside from left ankle pain. Regarding the left ankle pain he states that he does not have crutches at home, has not been taking anything besides Tylenol and ibuprofen for the pain which is not helping. Currently his pain is 5/10. States that it is no worse since after the surgery he does feels as though he cannot tolerate the pain anymore. Patient denies fevers, chills, Dizziness, lightheadedness, numbness, tingling, abdominal pain, constipation, diarrhea. <Do BaileyBRET - Last Filed: 02/06/22 18:13> Related Data Home Medications: Home Medications Medication Instructions Recorded Confirmed aspirin 81 mg tablet,delayed 81 mg PO DAILY 06/06/20 01/27/22 release lisinopril 40 mg tablet 40 mg PO DAILY 06/06/20 01/27/22 metoprolol succinate 25 mg 25 mg PO DAILY 06/06/20 01/27/22 tablet,extended release 24 hr sennosides 8.6 mg capsule (senna) 8.6 mg PO BEDTIME PRN Constipation 06/06/20 01/27/22 buprenorphine 8 mg-naloxone 2 mg 1 film sublingual BID 12/06/20 01/27/22 sublingual film amlodipine 10 mg tablet 10 mg PO BEDTIME 03/26/21 01/27/22 atorvastatin 40 mg tablet 40 mg PO BEDTIME 03/26/21 01/27/22 dorzolamide 22.3 mg-timolol 6.8 1 drp ophthalmic (eye) BID 03/26/21 01/27/22 mg/mL eye drops fluticasone propionate 110 1 puff PO BID PRN Wheezing 03/26/21 01/27/22 mcg/actuation HFA aerosol inhaler (Flovent HFA) glipizide 5 mg tablet, extended 5 mg PO DAILY 03/26/21 01/27/22 release 24 hr insulin detemir U-100 100 unit/mL 80 unit subcut BEDTIME 03/26/21 01/27/22 subcutaneous solution (Levemir U-100 Insulin) latanoprost 0.005 % eye drops 1 drp ophthalmic (eye) BEDTIME 03/26/21 01/27/22 metformin 1,000 mg tablet 1,000 mg PO BID 03/26/21 01/27/22 multivitamin-ferrous 1 tab PO DAILY 03/26/21 01/27/22 fumarate-folic acid 18 mg-400 mcg tablet (Certavite-Antioxidant) olanzapine 5 mg tablet (Zyprexa) 5 mg PO BEDTIME 03/26/21 01/27/22 omega-3 fatty acids-fish oil 340 1 cap PO TID 03/26/21 01/27/22 mg-1,000 mg capsule (Fish Oil) peg 690-[id number]-ucdjpuul 1 1 drp ophthalmic (eye) QID 03/26/21 01/27/22 %-0.2 %-0.2 % eye drops (Dry Eye Relief) trazodone 100 mg tablet 100 mg PO BEDTIME PRN Insomnia 03/26/21 01/27/22 trazodone 150 mg tablet 300 tab PO BEDTIME 03/26/21 01/27/22 blood sugar diagnostic (FreeStyle #10 manjeet 09/11/21 10/23/21 Lite Strips) clotrimazole 1 % topical cream 1 appl topical BID 09/11/21 01/27/22 insulin syringe-needle U-100 1 mL #10 manjeet 09/11/21 10/23/21 31 gauge x 5/16 lancets 33 gauge (TRUEplus Lancets) #100 ea 09/11/21 10/23/21 loratadine 10 mg tablet 10 mg PO QAM 09/11/21 01/27/22 naproxen 500 mg tablet 1 tab PO BID PRN pain 01/27/22 01/27/22 Previous Rx's Medication Instructions Recorded ferrous sulfate 15 mg iron (75 2 ml PO DAILY 30 days #60 mL 09/02/21 mg)/mL oral drops oxybutynin chloride 5 mg 5 mg PO DAILY 90 days #90 tabs 09/11/21 tablet,extended release 24 hr tamsulosin 0.4 mg capsule 0.4 mg PO BEDTIME 90 days #90 caps 09/11/21 omeprazole 20 mg capsule,delayed 20 mg PO DAILY 90 days #90 caps 09/19/21 release lidocaine 4 % topical patch 1 patch topical DAILY PRN pain #10 10/02/21 ea <Do Bailey CNP - Last Filed: 02/06/22 18:13> Allergies/Adverse Reactions: Allergies Allergy/AdvReac Type Severity Reaction Status Date / Time No Known Allergies Allergy Verified 01/27/22 11:10 <Do Bailey CNP - Last Filed: 02/06/22 18:13> Review of Systems Review of Systems: Constitutional : No Weight loss, No Fever, No Chills ENT/Mouth :? No sore throat, No Rhinorrhea Eyes: No Eye Pain, No Swelling Cardiovascular : pos Chest Pain, pos SOB, no Dyspnea on Exertion, No Orthopnea, No Edema, No Palpitations Respiratory : No Cough, No Sputum Gastrointestinal : pos Nausea, Positive Vomiting, No Diarrhea, No abdominal Pain, No Hematochezia, No Melena Genitourinary : No Dysuria, No Urinary Frequency Musculoskeletal : positive left ankle pain Skin : No Skin Lesions, No rash Neuro : No Weakness, No Numbness, No Dizziness, No Headache Psych : No Anxiety/Panic, No Depression Heme/Lymph: No Bruising, No Lymphadenopathy Endocrine : No Polyuria, No Polydipsia <Do Bailey CNP - Last Filed: 02/06/22 18:13> Yes all other systems are reviewed and are negative <Do Bailey CNP - Last Filed: 02/06/22 18:13> PMFSH Past Medical History Attestation statement: The following information was validated with the patient. <Do Bailey CNP - Last Filed: 02/06/22 18:13> Source: old records reviewed <Do Bailey CNP - Last Filed: 02/06/22 18:13> Medical History: Medical History Anxiety CAD (coronary artery disease) Chronic constipation COPD (chronic obstructive pulmonary disease) Diabetes mellitus Genital herpes GERD (gastroesophageal reflux disease) History of adenomatous polyp of colon Hypertension Opioid dependence on agonist therapy JAUN (obstructive sleep apnea) Pancreatic abnormality Prepatellar bursitis, left knee <Do Bailey CNP - Last Filed: 02/06/22 18:13> Surgical History: Surgical History No history of previous surgery <Do Bailey CNP - Last Filed: 02/06/22 18:13> Family History Family History: Family History Mother No problems noted. Father Liver cancer <Do Bailey CNP - Last Filed: 02/06/22 18:13> Social History Social History: Social History Household Members: Significant Other Housing: Apartment Do you presently have visiting nurse or other home services: No Alcohol intake: never Patient Tobacco Use Status: Current everyday Tobacco user Tobacco use type: Cigarette Cigarettes Per Day: 3 Second Hand Smoke Exposure: No Substance Use Type: Heroin Advance Directives: Yes Advance Directives on File: Yes Advance Directives Date on File: 01/28/22 service: No Current occupational status: retired and disabled Current occupation: right handed <Do Bailey CNP - Last Filed: 02/06/22 18:13> Physical Exam Vital Signs: Vital Signs: Last Vital Signs Temp 98.2 F 02/06/22 14:29 Pulse 71 02/06/22 14:29 Resp 12 02/06/22 14:29 BP 123/61 02/06/22 14:29 Pulse Ox 95 02/06/22 14:29 O2 Del Method 02/06/22 14:29 BMI result Body Mass Index 32.5 Vital signs have been reviewed as normal and appeared to be correct. Blood pressure normal.? Heart rate normal.? Respiration rate normal. Temperature normal.? Oxygen saturation normal. <Do Bailey CNP - Last Filed: 02/06/22 18:13> Vital Signs: Last Vital Signs Temp 98.2 F 02/06/22 14:29 Pulse 71 02/06/22 14:29 Resp 12 02/06/22 14:29 BP 123/61 02/06/22 14:29 Pulse Ox 95 02/06/22 14:29 O2 Del Method 02/06/22 14:29 BMI result Body Mass Index 32.5 <CLEMENCIA Mcgill - Last Filed: 02/06/22 19:31> Appearance: Alert.?Oriented to person, place and time. No acute distress.?Normal affect. Eyes: Pupils equal, round and reactive to light, 2mm bilaterally.? EOMI. ENT: Pharynx normal.?? Neck: Normal inspection.? Neck supple.?? CVS: Heart sounds normal. Normal heart rate and rhythm.? Pulses normal.?? Respiratory: No respiratory distress.? Lung sounds clear to auscultation bilaterally?? Abdomen: Soft and non-tender. Normoactive bowel sounds. No pulsatile mass.?? Skin: Skin warm and dry.? Normal skin color.? Normal skin turgor.?? Extremities: No lower extremity edema.? No calf ttp or right. Left LE with cast in place, cap refill <3 seconds, able to move digits.? Neuro: Moves all extremities spontaneously. Sensation intact bilaterally. CN II-XII intact. No focal neuro deficits. <Do Bailey CNP - Last Filed: 02/06/22 18:13> NIH Stroke Scale Internal: Initial- Upon Arrival <Do Bailey CNP - Last Filed: 02/06/22 18:13> Level of Consciousness: Alert <Do Bailey CNP - Last Filed: 02/06/22 18:13> Level of Consciousness Questions: Answers both questions correctly <Do Bailey CNP - Last Filed: 02/06/22 18:13> Level of Consciousness Commands: Performs both tasks correctly <Do BullardBRET rowell - Last Filed: 02/06/22 18:13> Best Gaze: Normal <Do Bailey, [employer] - Last Filed: 02/06/22 18:13> Visual: No visual loss <Do BullardBRET rowell - Last Filed: 02/06/22 18:13> Facial Palsy: Normal <Do BullardBRET rowell - Last Filed: 02/06/22 18:13> Motor Arm (Right): No drift <Do Bailey, [employer] - Last Filed: 02/06/22 18:13> Motor Arm (Left): No drift <Do Bailey, [employer] - Last Filed: 02/06/22 18:13> Motor Leg (Right): No drift <Do Pena Lynn, BRET - Last Filed: 02/06/22 18:13> Motor Leg (Left): No drift <Do Bullardlelia, [employer] - Last Filed: 02/06/22 18:13> Limb Ataxia: Absent <Do Pena BRET Bailey - Last Filed: 02/06/22 18:13> Sensory: Normal <Do BullardBRET rowell - Last Filed: 02/06/22 18:13> Best Language: No aphasia <Do Pena BRET Bailey - Last Filed: 02/06/22 18:13> Dysarthia: Normal <Do Pena BRET Bailey - Last Filed: 02/06/22 18:13> Extinction and Inattention: No abnormality <Do BullardBRET rowell - Last Filed: 02/06/22 18:13> Score: 0 <Do Beckyyari Bailey CNP - Last Filed: 02/06/22 18:13> 0 <CLEMENCIA Mcgill - Last Filed: 02/06/22 19:31> Course Course Course Narrative: Patient is a 71-year-old male with a past medical history of anxiety, CAD, COPD, DM, GERD, hypertension, JAUN, opiate dependence on Suboxone presented to the emergency department initially for evaluation of left ankle pain but then developed chest pain diaphoresis and acute vomiting while in the ambulance. patient underwent ORIF of the left ankle on 02/03/2022, subsequently left against medical advicepostoperativly. NIH stroke score is 0, patient initially was slow to respond to questions but was responding appropriately and following commands. Will obtain CBC to evaluate for leukocytosis/ anemia, CMP to evaluate for abnormal electrolytes /abnormal renal function/ abnormal hepic function function, EKG and troponin to evaluate for ischemia/ACS. Chest x-ray to evaluate for consolidation/ infiltrate/ mass/ pulmonary congestion. Given patient's recent surgery, concern for ACS versus at this PE at this time. Obtain CTA of the chest. Zofran 4 mg IV for vomiting. <Do Bailey CNP - Last Filed: 02/06/22 18:13> Reevaluation(s) Reevaluation #1: CBC reveals leukocytosis 12.6, normocytic anemia consistent with baseline, mild thrombocytosis 403, consistent prior labs. CMP reveals hyperglycemia to 293, sodium 132, corrected sodium level of 135. BUN 35 likely secondary to dehydration, AST and ALT are elevated 137 and 52 respectively, consistent with prior labs. Troponin 7.4, EKG reveals normal sinus rhythm, no acute ischemic findings, given onset of symptoms, will obtain delta troponin. D-Dimer 6732, CTA of chest is already ordered at this time. At this time no active vomiting, denies nausea, no abdominal pain. Chest pain is improving but still present, currently denies any shortness of breath. <Do Bailey CNP - Last Filed: 02/06/22 18:13> Time: 15:33 <Do Bailey CNP - Last Filed: 02/06/22 18:13> Reevaluation #2: Patient currently with no chest pain or shortness of breath. going for CTA of chest at this time. Remains hemodynamically stable. <Do Bailey CNP - Last Filed: 02/06/22 18:13> Time: 17:16 <Do Bailey CNP - Last Filed: 02/06/22 18:13> Reevaluation #3: patient signed out to Kaylee KHANNA, pending delta troponin and results of CTA of chest. crutches ordered for patient. Advised outpatient follow-up with Orthopedics as he is status post ORIF. <Do Bailey CNP - Last Filed: 02/06/22 18:13> Time: 18:11 <Do Bailey CNP - Last Filed: 02/06/22 18:13> Consultations Consultation #1: - CTA of chest for PE negative for PE. Repeat troponin is negative delta. Therefore at this time crutches were given and patient instructed to follow-up with orthopedics and to return if any new or worsening symptoms. Patient and at bedside understand agree this plan <CLEMENCIA Mcgill - Last Filed: 02/06/22 19:31> Time: 19:31 <CLEMENCIA Mcgill - Last Filed: 02/06/22 19:31> MDM - Chest Pain Medical Records Data Attestation: I reviewed the patient's medical records. <Do Bailey CNP - Last Filed: 02/06/22 18:13> Lab Data Attestation: I reviewed the patient's lab results. <Do Bailey CNP - Last Filed: 02/06/22 18:13> Result diagrams: : 02/06/22 14:54 02/06/22 14:54 <Do Bailey CNP - Last Filed: 02/06/22 18:13> Labs: Lab Results 02/06/22 02/06/22 02/06/22 Range/Units 14:42 14:54 14:54 WBC 12.6 H (4.8-10.8) X10*3/uL RBC 3.56 L (4.60-5.80) X10*6/uL Hgb 10.7 L (14.0-18.0) g/dl Hct 31.5 L (42.0-52.0) % MCV 88.5 (80.0-98.0) fL MCH 30.1 (27.0-33.0) pg MCHC 34.0 (31.0-36.0) g/dl RDW 12.3 (11.0-16.0) % Plt Count 403 H D (160-400) X10*3/uL MPV 9.5 (9.4-12.4) fL Immature Gran % (Auto) 0.6 H (0.0-0.4) % Neut % (Auto) 82.6 H (45-73) % Lymph % (Auto) 9.7 L (20-40) % [place] % (Auto) 6.7 (2-11) % Eos % (Auto) 0.2 (0-4) % Baso % (Auto) 0.2 (0-2) % Lymph # (Auto) 1.2 (1.2-4.9) X10*3/uL [place] # (Auto) 0.8 (0.1-1.2) X10*3/uL Eos # (Auto) 0.0 (0.0-0.4) X10*3/uL Baso # (Auto) 0.0 (0.0-0.2) X10*3/uL Abs Immat Gran (auto) 0.07 H (0.00-0.03) X10*3/uL Absolute Neuts (auto) 10.4 H (2.0-8.3) x10*3/uL Absolute Nucleated RBC 0.000 (0.0-0.012) X10*3/uL Nucleated RBC % (auto) 0.0 (0.0-0.2) /100WBC D-Dimer High Sensitivty NG/ML Sodium 132 L (135-145) mmol/L Potassium 3.9 (3.3-5.1) mmol/L Chloride 90 L (96-108) mmol/L Carbon Dioxide 31 H (22-29) mmol/L Anion Gap 15 (12-20) BUN 35 H D (9-16) mg/dL Creatinine 1.00 (0.5-1.4) mg/dL Estim Creat Clear Calc 72.0 Estimated GFR > 60 POC Glucose 275 H (60-115) mg/dL Random Glucose 293 H D (60-115) mg/dL Calcium 9.8 D (8.4-10.2) mg/dL Total Bilirubin 1.0 (0.0-1.0) mg/dL AST 137 H (5-37) U/L ALT 52 H (0-40) U/L Alkaline Phosphatase 83 (39-117) U/L Troponin I High Sens (<3.5-35.0) ng/L Total Protein 7.4 (6.5-8.0) g/dL Albumin 3.9 (3.5-5.0) g/dL Ethyl Alcohol mg/dL COVID-19 (THANG) (Negative) COVID-19 Clin Com 02/06/22 02/06/22 02/06/22 Range/Units 14:54 14:54 14:54 WBC (4.8-10.8) X10*3/uL RBC (4.60-5.80) X10*6/uL Hgb (14.0-18.0) g/dl Hct (42.0-52.0) % MCV (80.0-98.0) fL MCH (27.0-33.0) pg MCHC (31.0-36.0) g/dl RDW (11.0-16.0) % Plt Count (160-400) X10*3/uL MPV (9.4-12.4) fL Immature Gran % (Auto) (0.0-0.4) % Neut % (Auto) (45-73) % Lymph % (Auto) (20-40) % [place] % (Auto) (2-11) % Eos % (Auto) (0-4) % Baso % (Auto) (0-2) % Lymph # (Auto) (1.2-4.9) X10*3/uL [place] # (Auto) (0.1-1.2) X10*3/uL Eos # (Auto) (0.0-0.4) X10*3/uL Baso # (Auto) (0.0-0.2) X10*3/uL Abs Immat Gran (auto) (0.00-0.03) X10*3/uL Absolute Neuts (auto) (2.0-8.3) x10*3/uL Absolute Nucleated RBC (0.0-0.012) X10*3/uL Nucleated RBC % (auto) (0.0-0.2) /100WBC D-Dimer High Sensitivty 6732 NG/ML Sodium (135-145) mmol/L Potassium (3.3-5.1) mmol/L Chloride (96-108) mmol/L Carbon Dioxide (22-29) mmol/L Anion Gap (12-20) BUN (9-16) mg/dL Creatinine (0.5-1.4) mg/dL Estim Creat Clear Calc Estimated GFR POC Glucose (60-115) mg/dL Random Glucose (60-115) mg/dL Calcium (8.4-10.2) mg/dL Total Bilirubin (0.0-1.0) mg/dL AST (5-37) U/L ALT (0-40) U/L Alkaline Phosphatase (39-117) U/L Troponin I High Sens 7.4 (<3.5-35.0) ng/L Total Protein (6.5-8.0) g/dL Albumin (3.5-5.0) g/dL Ethyl Alcohol < 10 mg/dL COVID-19 (THANG) (Negative) COVID-19 Clin Com 02/06/22 02/06/22 Range/Units 14:58 18:50 WBC (4.8-10.8) X10*3/uL RBC (4.60-5.80) X10*6/uL Hgb (14.0-18.0) g/dl Hct (42.0-52.0) % MCV (80.0-98.0) fL MCH (27.0-33.0) pg MCHC (31.0-36.0) g/dl RDW (11.0-16.0) % Plt Count (160-400) X10*3/uL MPV (9.4-12.4) fL Immature Gran % (Auto) (0.0-0.4) % Neut % (Auto) (45-73) % Lymph % (Auto) (20-40) % [place] % (Auto) (2-11) % Eos % (Auto) (0-4) % Baso % (Auto) (0-2) % Lymph # (Auto) (1.2-4.9) X10*3/uL [place] # (Auto) (0.1-1.2) X10*3/uL Eos # (Auto) (0.0-0.4) X10*3/uL Baso # (Auto) (0.0-0.2) X10*3/uL Abs Immat Gran (auto) (0.00-0.03) X10*3/uL Absolute Neuts (auto) (2.0-8.3) x10*3/uL Absolute Nucleated RBC (0.0-0.012) X10*3/uL Nucleated RBC % (auto) (0.0-0.2) /100WBC D-Dimer High Sensitivty NG/ML Sodium (135-145) mmol/L Potassium (3.3-5.1) mmol/L Chloride (96-108) mmol/L Carbon Dioxide (22-29) mmol/L Anion Gap (12-20) BUN (9-16) mg/dL Creatinine (0.5-1.4) mg/dL Estim Creat Clear Calc Estimated GFR POC Glucose (60-115) mg/dL Random Glucose (60-115) mg/dL Calcium (8.4-10.2) mg/dL Total Bilirubin (0.0-1.0) mg/dL AST (5-37) U/L ALT (0-40) U/L Alkaline Phosphatase (39-117) U/L Troponin I High Sens 7.3 (<3.5-35.0) ng/L Total Protein (6.5-8.0) g/dL Albumin (3.5-5.0) g/dL Ethyl Alcohol mg/dL COVID-19 (THANG) Negative (Negative) COVID-19 Clin Com See Note <Do Bailey, BRET - Last Filed: 02/06/22 18:13> Lab Results 02/06/22 02/06/22 02/06/22 Range/Units 14:42 14:54 14:54 WBC 12.6 H (4.8-10.8) X10*3/uL RBC 3.56 L (4.60-5.80) X10*6/uL Hgb 10.7 L (14.0-18.0) g/dl Hct 31.5 L (42.0-52.0) % MCV 88.5 (80.0-98.0) fL MCH 30.1 (27.0-33.0) pg MCHC 34.0 (31.0-36.0) g/dl RDW 12.3 (11.0-16.0) % Plt Count 403 H D (160-400) X10*3/uL MPV 9.5 (9.4-12.4) fL Immature Gran % (Auto) 0.6 H (0.0-0.4) % Neut % (Auto) 82.6 H (45-73) % Lymph % (Auto) 9.7 L (20-40) % [place] % (Auto) 6.7 (2-11) % Eos % (Auto) 0.2 (0-4) % Baso % (Auto) 0.2 (0-2) % Lymph # (Auto) 1.2 (1.2-4.9) X10*3/uL [place] # (Auto) 0.8 (0.1-1.2) X10*3/uL Eos # (Auto) 0.0 (0.0-0.4) X10*3/uL Baso # (Auto) 0.0 (0.0-0.2) X10*3/uL Abs Immat Gran (auto) 0.07 H (0.00-0.03) X10*3/uL Absolute Neuts (auto) 10.4 H (2.0-8.3) x10*3/uL Absolute Nucleated RBC 0.000 (0.0-0.012) X10*3/uL Nucleated RBC % (auto) 0.0 (0.0-0.2) /100WBC D-Dimer High Sensitivty NG/ML Sodium 132 L (135-145) mmol/L Potassium 3.9 (3.3-5.1) mmol/L Chloride 90 L (96-108) mmol/L Carbon Dioxide 31 H (22-29) mmol/L Anion Gap 15 (12-20) BUN 35 H D (9-16) mg/dL Creatinine 1.00 (0.5-1.4) mg/dL Estim Creat Clear Calc 72.0 Estimated GFR > 60 POC Glucose 275 H (60-115) mg/dL Random Glucose 293 H D (60-115) mg/dL Calcium 9.8 D (8.4-10.2) mg/dL Total Bilirubin 1.0 (0.0-1.0) mg/dL AST 137 H (5-37) U/L ALT 52 H (0-40) U/L Alkaline Phosphatase 83 (39-117) U/L Troponin I High Sens (<3.5-35.0) ng/L Total Protein 7.4 (6.5-8.0) g/dL Albumin 3.9 (3.5-5.0) g/dL Ethyl Alcohol mg/dL COVID-19 (THANG) (Negative) COVID-19 Clin Com 02/06/22 02/06/22 02/06/22 Range/Units 14:54 14:54 14:54 WBC (4.8-10.8) X10*3/uL RBC (4.60-5.80) X10*6/uL Hgb (14.0-18.0) g/dl Hct (42.0-52.0) % MCV (80.0-98.0) fL MCH (27.0-33.0) pg MCHC (31.0-36.0) g/dl RDW (11.0-16.0) % Plt Count (160-400) X10*3/uL MPV (9.4-12.4) fL Immature Gran % (Auto) (0.0-0.4) % Neut % (Auto) (45-73) % Lymph % (Auto) (20-40) % [place] % (Auto) (2-11) % Eos % (Auto) (0-4) % Baso % (Auto) (0-2) % Lymph # (Auto) (1.2-4.9) X10*3/uL [place] # (Auto) (0.1-1.2) X10*3/uL Eos # (Auto) (0.0-0.4) X10*3/uL Baso # (Auto) (0.0-0.2) X10*3/uL Abs Immat Gran (auto) (0.00-0.03) X10*3/uL Absolute Neuts (auto) (2.0-8.3) x10*3/uL Absolute Nucleated RBC (0.0-0.012) X10*3/uL Nucleated RBC % (auto) (0.0-0.2) /100WBC D-Dimer High Sensitivty 6732 NG/ML Sodium (135-145) mmol/L Potassium (3.3-5.1) mmol/L Chloride (96-108) mmol/L Carbon Dioxide (22-29) mmol/L Anion Gap (12-20) BUN (9-16) mg/dL Creatinine (0.5-1.4) mg/dL Estim Creat Clear Calc Estimated GFR POC Glucose (60-115) mg/dL Random Glucose (60-115) mg/dL Calcium (8.4-10.2) mg/dL Total Bilirubin (0.0-1.0) mg/dL AST (5-37) U/L ALT (0-40) U/L Alkaline Phosphatase (39-117) U/L Troponin I High Sens 7.4 (<3.5-35.0) ng/L Total Protein (6.5-8.0) g/dL Albumin (3.5-5.0) g/dL Ethyl Alcohol < 10 mg/dL COVID-19 (THANG) (Negative) COVID-19 Clin Com 02/06/22 02/06/22 Range/Units 14:58 18:50 WBC (4.8-10.8) X10*3/uL RBC (4.60-5.80) X10*6/uL Hgb (14.0-18.0) g/dl Hct (42.0-52.0) % MCV (80.0-98.0) fL MCH (27.0-33.0) pg MCHC (31.0-36.0) g/dl RDW (11.0-16.0) % Plt Count (160-400) X10*3/uL MPV (9.4-12.4) fL Immature Gran % (Auto) (0.0-0.4) % Neut % (Auto) (45-73) % Lymph % (Auto) (20-40) % [place] % (Auto) (2-11) % Eos % (Auto) (0-4) % Baso % (Auto) (0-2) % Lymph # (Auto) (1.2-4.9) X10*3/uL [place] # (Auto) (0.1-1.2) X10*3/uL Eos # (Auto) (0.0-0.4) X10*3/uL Baso # (Auto) (0.0-0.2) X10*3/uL Abs Immat Gran (auto) (0.00-0.03) X10*3/uL Absolute Neuts (auto) (2.0-8.3) x10*3/uL Absolute Nucleated RBC (0.0-0.012) X10*3/uL Nucleated RBC % (auto) (0.0-0.2) /100WBC D-Dimer High Sensitivty NG/ML Sodium (135-145) mmol/L Potassium (3.3-5.1) mmol/L Chloride (96-108) mmol/L Carbon Dioxide (22-29) mmol/L Anion Gap (12-20) BUN (9-16) mg/dL Creatinine (0.5-1.4) mg/dL Estim Creat Clear Calc Estimated GFR POC Glucose (60-115) mg/dL Random Glucose (60-115) mg/dL Calcium (8.4-10.2) mg/dL Total Bilirubin (0.0-1.0) mg/dL AST (5-37) U/L ALT (0-40) U/L Alkaline Phosphatase (39-117) U/L Troponin I High Sens 7.3 (<3.5-35.0) ng/L Total Protein (6.5-8.0) g/dL Albumin (3.5-5.0) g/dL Ethyl Alcohol mg/dL COVID-19 (THANG) Negative (Negative) COVID-19 Clin Com See Note <CLEMENCIA Mcgill - Last Filed: 02/06/22 19:31> Imaging Data Chest x-ray: Radiologist's impression: XR/XR chest 2V IMPRESSION: No acute cardiopulmonary process. <Do Bailey CNP - Last Filed: 02/06/22 18:13> CT scan - chest: Attestation: I personally reviewed and interpreted this imaging study as follows: <CLEMENCIA Mcgill - Last Filed: 02/06/22 19:31> Radiologist's impression: FINDINGS: The heart is normal in size. Coronary artery calcifications are present. There is no pericardial effusion. No pulmonary arterial filling defect to suggest pulmonary embolus. Normal caliber thoracic aorta. No gross mediastinal or hilar lymphadenopathy. No pathologically enlarged axillary lymph nodes. Central airways are patent. Lungs are well aerated. There is no lobar consolidation. No pleural effusion or pneumothorax. A few tiny pulmonary nodules/nodular densities are stable, for example a 3 mm nodule within the right upper lobe (image [id number], series 7). No new suspicious pulmonary nodules visualized. Visualized portions of the upper abdomen again demonstrate bilateral adrenal lesions. Mild degenerative changes of the spine. Old healed rib fractures. CT/CT angio chest PE protocol IMPRESSION: No pulmonary embolus. ? VTE: negative <CLEMENCIA Mcgill - Last Filed: 02/06/22 19:31> ECG Data ECG #1: Attestation: I personally reviewed and interpreted this ECG as follows: <Do Bailey CNP - Last Filed: 02/06/22 18:13> ECG interpretation date: 02/06/22 <Do Bailey CNP - Last Filed: 02/06/22 18:13> Prior ECG tracings: available for review <Do Bailey CNP - Last Filed: 02/06/22 18:13> Interpretation: Rate: 66 Rhythm:? normal sinus rhythm [place]:? normal Normal P waves.? Normal SMITH.?? Normal QRS complex.?? ST T wave :?? no ST elevation patient, no ST depression, no T-wave inversion qTC: 465 prior studies:?December 2021 The study has been interpreted contemporaneously by me. <Do Bailey CNP - Last Filed: 02/06/22 18:13> Discharge Plan Discharge Clinical Impression: Bimalleolar ankle fracture <Do Bailey CNP - Last Filed: 02/06/22 18:13> Patient Disposition: Home, Self-Care <Do Bailey CNP - Last Filed: 02/06/22 18:13> Instructions: Ankle Fracture (ED), Crutch Instructions (ED) <Do Bailey CNP - Last Filed: 02/06/22 18:13> Prescriptions: No Action ferrous sulfate 15 mg iron (75 mg)/mL drops 2 ml PO DAILY 30 Days Qty: 60 4RF omeprazole 20 mg capsule,delayed release(DR/EC) 20 mg PO DAILY 90 Days Qty: 90 1RF latanoprost 0.005 % drops 1 drp ophthalmic (eye) BEDTIME atorvastatin 40 mg tablet 40 mg PO BEDTIME olanzapine [Zyprexa] 5 mg tablet 5 mg PO BEDTIME glipizide 5 mg tablet extended release 24hr 5 mg PO DAILY trazodone 100 mg tablet 100 mg PO BEDTIME PRN (Reason: Insomnia) amlodipine 10 mg tablet 10 mg PO BEDTIME metformin 1,000 mg tablet 1,000 mg PO BID dorzolamide-timolol 22.3-6.8 mg/mL drops 1 drp ophthalmic (eye) BID Flovent HFA 110 mcg/actuation HFA aerosol inhaler 1 puff PO BID PRN (Reason: Wheezing) Dry Eye Relief 1-0.2-0.2 % drops 1 drp ophthalmic (eye) QID Levemir U-100 Insulin 100 unit/mL solution 80 unit subcut BEDTIME Fish Oil 340-1,000 mg capsule 1 cap PO TID Certavite-Antioxidant 18-400 mg-mcg tablet 1 tab PO DAILY trazodone 150 mg tablet 300 tab PO BEDTIME lidocaine 4 % adhesive patch,medicated 1 patch topical DAILY PRN (Reason: pain) Qty: 10 0RF Rx Instructions: may leave on for up to 12 hrs naproxen 500 mg tablet 1 tab PO BID PRN (Reason: pain) aspirin 81 mg tablet,delayed release (DR/EC) 81 mg PO DAILY lisinopril 40 mg tablet 40 mg PO DAILY metoprolol succinate 25 mg tablet extended release 24 hr 25 mg PO DAILY senna 8.6 mg capsule 8.6 mg PO BEDTIME PRN (Reason: Constipation) buprenorphine-naloxone 8-2 mg film 1 film sublingual BID (DME) lancets [TRUEplus Lancets] 33 gauge misc See Rx Instructions Not Applicable TID Qty: 100 Rx Instructions: As directed clotrimazole 1 % cream 1 appl topical BID loratadine 10 mg tablet 10 mg PO QAM (DME) insulin syringe-needle U-100 1 mL 31 gauge x 5/16 syringe See Rx Instructions subcut DAILY Qty: 10 Rx Instructions: As directed (DME) FreeStyle Lite Strips Strip See Rx Instructions Not Applicable TID Qty: 10 Rx Instructions: As directed oxybutynin chloride 5 mg tablet extended release 24hr 5 mg PO DAILY 90 Days Qty: 90 3RF tamsulosin 0.4 mg capsule 0.4 mg PO BEDTIME 90 Days Qty: 90 3RF <Dowes Bailey CNP - Last Filed: 02/06/22 18:13> Referrals: ED Physician,Generic [Emergency Provider] - 2 days (your pcp) <Do Bailey CNP - Last Filed: 02/06/22 18:13>
[2022-02-06] MEDS: iohexoL 350 MG/ML 100 ML INFUS..BTL IV (17:47)
[2022-02-06 19:18] LABS: Troponin-I High Sensitivity 7.3 ng/L (<3.5-35.0)
== END 2022-02-06 19:35 | disposition home or self-care (01) ==
PROVIDERS: Nurse Practitioner Family; Emergency Provider Emergency Medicine; PCP Internal Medicine
DX: M25.572 Pain in left ankle and joints of left foot (principal); S82.842D Displaced bimalleolar fracture of left lower leg, subsequent encounter for closed fracture with routine healing; X58.XXXD Exposure to other specified factors, subsequent encounter; R07.9 Chest pain, unspecified; D72.829 Elevated white blood cell count, unspecified; D75.839 Thrombocytosis, unspecified; D64.9 Anemia, unspecified; I10 Essential (primary) hypertension; E11.9 Type 2 diabetes mellitus without complications; J44.9 Chronic obstructive pulmonary disease, unspecified; F11.20 Opioid dependence, uncomplicated; Z20.822 Contact with and (suspected) exposure to COVID-19
CPT/HCPCS: 36415; 71046; 71275; 80053; 82077; 82947; 84484; 85025; 85379; 87635; 93005; 96361; 96374; 99283; 99284; J2405; Q9967

== ENCOUNTER 2022-02-08 16:17 | Emergency (ER) | payer OTHER, SELFPAY ==
--- NOTE | ~2022-02-08 | US_ITS ---
EXAMINATION: US VENOUS ULTRASOUND WITH DOPPLER LOWER EXTREMITY, LEFT CLINICAL INFORMATION: Pain status post ORIF COMPARISON: None TECHNIQUE: Ultrasound of the deep veins is performed from the hip to the calf with compression sonography and color and pulse Doppler assessment. Spectral analysis with color-flow imaging is performed. FINDINGS: There is normal venous compression and respiratory variation and augmented flow. The visualized common femoral vein, superficial femoral vein, profunda femoral vein, popliteal vein, and the trifurcation region shows no evidence of deep venous thrombosis. There is no significant popliteal fossa cyst. If the patient's symptoms persist, followup ultrasound in 5 days 7 days might be of value to exclude proximal propagation from a non-visualized calf vein. US/US venous duplex LE LT IMPRESSION: No DVT demonstrated in the left lower extremity.
--- NOTE | ~2022-02-08 | XR_ITS ---
EXAMINATION: XR ANKLE, LEFT CLINICAL INFORMATION: ORIF COMPARISON: 01/27/2022 TECHNIQUE: AP, lateral, and mortise views of the left ankle. FINDINGS: 2 threaded screws placed through the medial malleolus. Plate and multiple screws across the fracture of the distal fibula. Bone alignments restored to near anatomic alignment's. Cast in place, obscuring fine bone detail. XR/XR ankle LT min 3V IMPRESSION: ORIF hardware across fractures of the distal tibia and fibula. Anatomic bone alignments partially restored.
[2022-02-08 16:27] VITALS: BP 158/88; BP 168/93; PULSE 70; PULSE 75; RESP 20; TEMP 36.4; O2SAT 94; O2SAT 99; BMI 31.3
--- NOTE | 2022-02-08 16:46 | ED.LOWEXIN ---
HPI - Extremity Injury (Lower) General Chief Complaint: General Medical Stated Complaint: l leg pain 06/08 left ama Time Seen by Provider: 02/08/22 16:19 Source: patient Mode of arrival: EMS Limitations: no limitations History of Present Illness HPI Narrative: Patient presents emergency department for evaluation of left leg and ankle pain via EMS. He is status post surgery on 02/03 for an ankle fracture. Patient left AMA after surgery. He was seen in the emergency department 2 days ago, reported that he was having pain to the ankle when ambulating, had did not receive any crutches before leaving the hospital. Today he states that since yesterday he has been having severe and excruciating pain to the left ankle and leg. He is prescribed Suboxone, which he took yesterday but states he has not taken yet today. Denies any numbness or tingling to the leg. Denies fevers, chills. Denies chest pain palpitations, shortness of breath, multi breathing. Related Data Home Medications Medication Instructions Recorded Confirmed aspirin 81 mg tablet,delayed 81 mg PO DAILY 06/06/20 01/27/22 release lisinopril 40 mg tablet 40 mg PO DAILY 06/06/20 01/27/22 metoprolol succinate 25 mg 25 mg PO DAILY 06/06/20 01/27/22 tablet,extended release 24 hr sennosides 8.6 mg capsule (senna) 8.6 mg PO BEDTIME PRN Constipation 06/06/20 01/27/22 buprenorphine 8 mg-naloxone 2 mg 1 film sublingual BID 12/06/20 01/27/22 sublingual film amlodipine 10 mg tablet 10 mg PO BEDTIME 03/26/21 01/27/22 atorvastatin 40 mg tablet 40 mg PO BEDTIME 03/26/21 01/27/22 dorzolamide 22.3 mg-timolol 6.8 1 drp ophthalmic (eye) BID 03/26/21 01/27/22 mg/mL eye drops fluticasone propionate 110 1 puff PO BID PRN Wheezing 03/26/21 01/27/22 mcg/actuation HFA aerosol inhaler (Flovent HFA) glipizide 5 mg tablet, extended 5 mg PO DAILY 03/26/21 01/27/22 release 24 hr insulin detemir U-100 100 unit/mL 80 unit subcut BEDTIME 03/26/21 01/27/22 subcutaneous solution (Levemir U-100 Insulin) latanoprost 0.005 % eye drops 1 drp ophthalmic (eye) BEDTIME 03/26/21 01/27/22 metformin 1,000 mg tablet 1,000 mg PO BID 03/26/21 01/27/22 multivitamin-ferrous 1 tab PO DAILY 03/26/21 01/27/22 fumarate-folic acid 18 mg-400 mcg tablet (Certavite-Antioxidant) olanzapine 5 mg tablet (Zyprexa) 5 mg PO BEDTIME 03/26/21 01/27/22 omega-3 fatty acids-fish oil 340 1 cap PO TID 03/26/21 01/27/22 mg-1,000 mg capsule (Fish Oil) peg [id number] 1 1 drp ophthalmic (eye) QID 03/26/21 01/27/22 %-0.2 %-0.2 % eye drops (Dry Eye Relief) trazodone 100 mg tablet 100 mg PO BEDTIME PRN Insomnia 03/26/21 01/27/22 trazodone 150 mg tablet 300 tab PO BEDTIME 03/26/21 01/27/22 blood sugar diagnostic (FreeStyle #10 ea 09/11/21 10/23/21 Lite Strips) clotrimazole 1 % topical cream 1 appl topical BID 09/11/21 01/27/22 insulin syringe-needle U-100 1 mL #10 ea 09/11/21 10/23/21 31 gauge x 5/16 lancets 33 gauge (TRUEplus Lancets) #100 ea 09/11/21 10/23/21 loratadine 10 mg tablet 10 mg PO QAM 09/11/21 01/27/22 naproxen 500 mg tablet 1 tab PO BID PRN pain 01/27/22 01/27/22 Previous Rx's Medication Instructions Recorded ferrous sulfate 15 mg iron (75 2 ml PO DAILY 30 days #60 mL 09/02/21 mg)/mL oral drops oxybutynin chloride 5 mg 5 mg PO DAILY 90 days #90 tabs 09/11/21 tablet,extended release 24 hr tamsulosin 0.4 mg capsule 0.4 mg PO BEDTIME 90 days #90 caps 09/11/21 omeprazole 20 mg capsule,delayed 20 mg PO DAILY 90 days #90 caps 09/19/21 release lidocaine 4 % topical patch 1 patch topical DAILY PRN pain #10 10/02/21 ea Allergies Allergy/AdvReac Type Severity Reaction Status Date / Time No Known Allergies Allergy Verified 01/27/22 11:10 Review of Systems Review of Systems: Constitutional: No weight loss, fever, chills, weakness or fatigue. Skin: No rash or itching. Cardiovascular: No chest pain, chest pressure or chest discomfort. No palpitations Respiratory: No shortness of breath, cough or sputum production. Gastrointestinal: No anorexia, nausea, vomiting or diarrhea. No abdominal pain Genitourinary: No burning micturition. No urinary frequency or incontinence. Musculoskeletal: No back pain. Positive leg pain Neurologic: No weakness. No numbness. No dizziness. No headache. Psychiatric: No depression or anxiety. Yes all other systems are reviewed and are negative [facility] Past Medical History Attestation statement: The following information was validated with the patient. Source: old records reviewed Medical History Anxiety CAD (coronary artery disease) Chronic constipation COPD (chronic obstructive pulmonary disease) Diabetes mellitus Genital herpes GERD (gastroesophageal reflux disease) History of adenomatous polyp of colon Hypertension Opioid dependence on agonist therapy JAUN (obstructive sleep apnea) Pancreatic abnormality Prepatellar bursitis, left knee Surgical History No history of previous surgery Family History Family History Mother No problems noted. Father Liver cancer Social History Social History Household Members: Significant Other Housing: Apartment Do you presently have visiting nurse or other home services: No Alcohol intake: never Patient Tobacco Use Status: Current everyday Tobacco user Tobacco use type: Cigarette Cigarettes Per Day: 3 Second Hand Smoke Exposure: No Substance Use Type: Heroin Advance Directives: Yes Advance Directives on File: Yes Advance Directives Date on File: 01/28/22 service: No Current occupational status: retired and disabled Current occupation: right handed Physical Exam Vital Signs: Vital Signs: Last Vital Signs Temp 97.5 F 02/08/22 16:27 Pulse 75 02/08/22 16:27 Resp 20 02/08/22 16:27 BP 168/93 H 02/08/22 16:27 Pulse Ox 94 02/08/22 16:27 O2 Del Method 02/08/22 16:27 BMI result Body Mass Index 31.3 Vital signs have been reviewed as normal and appeared to be correct. Hypertensive? Heart rate normal.? Respiration rate normal. Temperature normal.? Oxygen saturation normal. Appearance: Alert.?Oriented to person, place and time. No acute distress.?Normal affect. Eyes: Pupils equal, round and reactive to light.? ENT: Pharynx normal.?? Neck: Normal inspection.? Neck supple.?? CVS: Heart sounds normal. Normal heart rate and rhythm.? Pulses normal.?? Respiratory: No respiratory distress.? Lung sounds clear to auscultation bilaterally?? Abdomen: Soft and non-tender. Normoactive bowel sounds. ? Skin: Skin warm and dry.? Normal skin color.? Extremities: Splint removed from left lower extremity, nonpitting edema to the ankle and foot. Left calf tenderness with palpation. Positive Doppler signal DP/PT pulse. Surgical incisions to the bilateral malleolus with cruzito in place, no purulent drainage, or signs of infection. Neuro: Moves all extremities spontaneously. Sensation intact bilaterally. No motor deficits Course Course Course Narrative: Patient is a 71-year-old male with a past medical history of? anxiety, CAD, COPD, DM, GERD, hypertension, JAUN, opiate dependence on Suboxone, presenting to the emergency department for evaluation of left ankle/leg pain. Since yesterday he reports the pain to be severe and excruciating 06/08. Patient sustained a by malleolar fracture on 01/25/2022 and subsequently underwent ORIF on 02/03/2022 and left AMA postoperatively. He was evaluated in the emergency department 2 days ago, she was having pain with weight-bearing, did not have crutches. He was provided that time and advised to continue taking his Suboxone. While he was EN route to the hospital he became diaphoretic with acute vomiting and reporting chest pain and shortness of breath. ACS and PE were ruled out. Patient was subsequently discharged home. Patient has not yet taken any Suboxone, patient receive 16-4 mg dosing for pain at this time. Given his recent surgical procedure, reports of severe pain, will obtain ultrasound to exclude DVT. splint removed, surgical incisions with cruzito intact, without acute signs of infection such as erythema, warmth, purulent drainage. Positive Doppler signal pulses DP/PT, There is no pallor, extremity is warm to touch, sensation is intact, no paresthesias, calf is soft, mild firmness with palpation and swelling over ankle and foot, does not seem consistent with compartment syndrome. ED attending Dr. Damon at bedside for evaluation, agrees with plan of care at this time. Disposition will be pending results. Reevaluation(s) Reevaluation #1: Serum labs reveal mild hypokalemia, 3.1, will provide oral replacement 40 mEq, advised patient to contact his primary care provider to schedule follow-up visit within 1-3 days, for re-evaluation. Ultrasound reveals no evidence of DVT, will re-splint patient's leg this time. Serum labs are overall unremarkable, CK level of 342, renal function is normal, no hyperkalemia, not consistent with rhabdomyolysis. Serum labs and physical exam not consistent with septic arthritis, for cellulitis. Posterior leg splint replaced. Time: 18:04 Reevaluation #2: I spoke with Orthopedics on-call from [facility], she confirms that patient is supposed to be strictly nonweightbearing with the use of crutches. Concerned that if he has been weight-bearing there is possibility for hardware failure, recommends repeat x-ray films at this time. Discussed with patient plan of care, he does not feel that he is able to get around, states he has been unable to get out of bed when at home. Discussed with patient having physical therapy evaluation and evaluation by case management in the morning for possible placement to short-term rehab. At this time he is agreeable with this plan of care. Time: 19:23 Reevaluation #3: X-ray reveals no acute findings to suggest failure of hardware. Patient placed in physician observation at this time, she will require more time to be evaluated by physical therapy in the morning in case management to facilitate placement. He is in no apparent distress, hemodynamically stable, verbalizes understanding is agreeable with plan of care. Time: 20:58 MDM - Extremity Injury (Lower) Medical Records Attestation: I reviewed the patient's medical records. Lab Data Attestation: I reviewed the patient's lab results. Result diagrams: 02/08/22 17:36 02/08/22 17:36 Labs: Lab Results 02/08/22 02/08/22 Range/Units 17:36 17:36 WBC 13.2 H (4.8-10.8) X10*3/uL RBC 3.62 L (4.60-5.80) X10*6/uL Hgb 11.1 L (14.0-18.0) g/dl Hct 31.1 L (42.0-52.0) % MCV 85.9 (80.0-98.0) fL MCH 30.7 (27.0-33.0) pg MCHC 35.7 (31.0-36.0) g/dl RDW 11.9 (11.0-16.0) % Plt Count 427 H (160-400) X10*3/uL MPV 8.6 L (9.4-12.4) fL Immature Gran % (Auto) 0.5 H (0.0-0.4) % Neut % (Auto) 72.9 (45-73) % Lymph % (Auto) 17.4 L (20-40) % Alpine % (Auto) 8.2 (2-11) % Eos % (Auto) 0.8 (0-4) % Baso % (Auto) 0.2 (0-2) % Lymph # (Auto) 2.3 (1.2-4.9) X10*3/uL Alpine # (Auto) 1.1 (0.1-1.2) X10*3/uL Eos # (Auto) 0.1 (0.0-0.4) X10*3/uL Baso # (Auto) 0.0 (0.0-0.2) X10*3/uL Abs Immat Gran (auto) 0.07 H (0.00-0.03) X10*3/uL Absolute Neuts (auto) 9.6 H (2.0-8.3) x10*3/uL Absolute Nucleated RBC 0.000 (0.0-0.012) X10*3/uL Nucleated RBC % (auto) 0.0 (0.0-0.2) /100WBC Sodium 131 L (135-145) mmol/L Potassium 3.1 L D (3.3-5.1) mmol/L Chloride 94 L (96-108) mmol/L Carbon Dioxide 28 (22-29) mmol/L Anion Gap 12 (12-20) BUN 10 D (9-16) mg/dL Creatinine 0.68 (0.5-1.4) mg/dL Estim Creat Clear Calc 103.9 Estimated GFR > 60 Random Glucose 130 H D (60-115) mg/dL Calcium 9.3 (8.4-10.2) mg/dL Total Creatine Kinase 342 H D (38-174) U/L Imaging Data Venous US: Radiologist's impression: US/US venous duplex LE LT IMPRESSION: No DVT demonstrated in the left lower extremity. XR ankle: Radiologist's impression: FINDINGS: 2 threaded screws placed through the medial malleolus. Plate and multiple screws across the fracture of the distal fibula. Bone alignments restored to near anatomic alignment's. Cast in place, obscuring fine bone detail.? XR/XR ankle LT min 3V IMPRESSION: ORIF hardware across fractures of the distal tibia and fibula. ? Anatomic bone alignments partially restored. Discharge Plan Discharge Clinical Impression: Bimalleolar ankle fracture Patient Disposition: Still a Patient Instructions: ORIF of an Ankle Fracture (DC) Prescriptions: No Action ferrous sulfate 15 mg iron (75 mg)/mL drops 2 ml PO DAILY 30 Days Qty: 60 4RF omeprazole 20 mg capsule,delayed release(DR/EC) 20 mg PO DAILY 90 Days Qty: 90 1RF latanoprost 0.005 % drops 1 drp ophthalmic (eye) BEDTIME atorvastatin 40 mg tablet 40 mg PO BEDTIME olanzapine [Zyprexa] 5 mg tablet 5 mg PO BEDTIME glipizide 5 mg tablet extended release 24hr 5 mg PO DAILY trazodone 100 mg tablet 100 mg PO BEDTIME PRN (Reason: Insomnia) amlodipine 10 mg tablet 10 mg PO BEDTIME metformin 1,000 mg tablet 1,000 mg PO BID dorzolamide-timolol 22.3-6.8 mg/mL drops 1 drp ophthalmic (eye) BID Flovent HFA 110 mcg/actuation HFA aerosol inhaler 1 puff PO BID PRN (Reason: Wheezing) Dry Eye Relief 1-0.2-0.2 % drops 1 drp ophthalmic (eye) QID Levemir U-100 Insulin 100 unit/mL solution 80 unit subcut BEDTIME Fish Oil 340-1,000 mg capsule 1 cap PO TID Certavite-Antioxidant 18-400 mg-mcg tablet 1 tab PO DAILY trazodone 150 mg tablet 300 tab PO BEDTIME lidocaine 4 % adhesive patch,medicated 1 patch topical DAILY PRN (Reason: pain) Qty: 10 0RF Rx Instructions: may leave on for up to 12 hrs naproxen 500 mg tablet 1 tab PO BID PRN (Reason: pain) aspirin 81 mg tablet,delayed release (DR/EC) 81 mg PO DAILY lisinopril 40 mg tablet 40 mg PO DAILY metoprolol succinate 25 mg tablet extended release 24 hr 25 mg PO DAILY senna 8.6 mg capsule 8.6 mg PO BEDTIME PRN (Reason: Constipation) buprenorphine-naloxone 8-2 mg film 1 film sublingual BID (DME) lancets [TRUEplus Lancets] 33 gauge misc See Rx Instructions Not Applicable TID Qty: 100 Rx Instructions: As directed clotrimazole 1 % cream 1 appl topical BID loratadine 10 mg tablet 10 mg PO QAM (DME) insulin syringe-needle U-100 1 mL 31 gauge x 5/16 syringe See Rx Instructions subcut DAILY Qty: 10 Rx Instructions: As directed (DME) FreeStyle Lite Strips Strip See Rx Instructions Not Applicable TID Qty: 10 Rx Instructions: As directed oxybutynin chloride 5 mg tablet extended release 24hr 5 mg PO DAILY 90 Days Qty: 90 3RF tamsulosin 0.4 mg capsule 0.4 mg PO BEDTIME 90 Days Qty: 90 3RF Referrals: Courtney Villarreal PA-C [Phys[facility]] - 5 days
[2022-02-08] MEDS: Buprenorphine/Naloxone 8/2 mg FILM 1 FILM SUBLINGUAL ×2 (17:00→17:53)
[2022-02-08 17:40] LABS: MANUAL DIFF FLAG NO
[2022-02-08 17:41] LABS: Basophils Percent Auto 0.2 % (0-2); Eosinophils Absolute Auto 0.1 X10*3/uL (0.0-0.4); Eosinophils Percent Auto 0.8 % (0-4); Hematocrit 31.1 % (42.0-52.0); Hemoglobin 11.1 g/dl (14.0-18.0); Imm Gran Abs Auto 0.07 X10*3/uL (0.00-0.03); Imm Gran Pct Auto 0.5 % (0.0-0.4); Lymphocytes Absolute Auto 2.3 X10*3/uL (1.2-4.9); Lymphocytes Percent Auto 17.4 % (20-40); Mean Corpuscular HGB Conc 35.7 g/dl (31.0-36.0); Mean Corpuscular Hemoglobin 30.7 pg (27.0-33.0); Mean Corpuscular Volume 85.9 fL (80.0-98.0); Mean Platelet Volume 8.6 fL (9.4-12.4); Monocytes Absolute Auto 1.1 X10*3/uL (0.1-1.2); Monocytes Percent Auto 8.2 % (2-11); Neutrophils Absolute Auto 9.6 x10*3/uL (2.0-8.3); Neutrophils Percent Auto 72.9 % (45-73); Platelet Count 427 X10*3/uL (160-400); Red Blood Count 3.62 X10*6/uL (4.60-5.80); Red Cell Distribution Width 11.9 % (11.0-16.0); White Blood Count 13.2 X10*3/uL (4.8-10.8)
[2022-02-08 17:55] LABS: Anion Gap 12 (12-20); Blood Urea Nitrogen 10 mg/dL (9-16); Calcium 9.3 mg/dL (8.4-10.2); Carbon Dioxide 28 mmol/L (22-29); Chloride 94 mmol/L (96-108); Creatinine Clr Calc Pharmacy 103.9; Estimated Glomerular Filt Rate > 60; Glucose Random 130 mg/dL (60-115); Potassium 3.1 mmol/L (3.3-5.1); Sodium 131 mmol/L (135-145)
--- NOTE | 2022-02-08 18:54 | PC.NURSE ---
This PCT was asked to re-splint the patient's left lower leg. I unwrapped the pervious ilene wrap and removed the previously applied splint, the patient stated that it was hurting him on both sides of his heel. After removal patient stated pain was less, then commented that he was previously a patient and was given heroin until his discharge, and that he was being viewed now as a drug addict and has received no pain meds since arriving to the ED today. I told the patient I would let his nurse know he would like something for pain and that I was currently there to replace the splint which would also help relieve his pain. He complied, after the pervious splint was removed and I before I started to apply the new splint the patient had turned on this side, I instructed him to lay on his back for proper splinting, he did so, however when I was wrapping the padding he began to move his foot and leg around I asked him repeatedly to not move for proper technique but he did not stop. Placed the splint and made sure it was fitted properly to the patient, the patient stated he was still in pain but that the splint was comfortable.
[2022-02-08] MEDS: Potassium Chloride Packet 20 MEQ PACKET 40 MEQ PO (19:05)
--- NOTE | 2022-02-08 21:39 | PHA.MEDREC ---
Pharmacy Consult ? Medication Reconciliation Pharmacy has completed the medication reconciliation. Med rec based off of dc summary
[2022-02-09 01:31] VITALS: BP 147/69; PULSE 79; RESP 18; TEMP 36.7; O2SAT 95
[2022-02-09 02:21] LABS: COVID-19 Test Negative (Negative); IDNOW Serial# 16C4AD1C
[2022-02-09 06:27] VITALS: BP 143/72; PULSE 86; RESP 17; TEMP 37.4; O2SAT 98
[2022-02-09] MEDS: Acetaminophen 325 MG TABLET 650 MG PO (06:37)
[2022-02-09] MEDS: metFORMIN HCl 1,000 MG TABLET 1000 MG PO (08:14)
--- NOTE | 2022-02-09 08:14 | PM.CNOR ---
History of Present Illness HPI Consult date: 02/09/22 Chief complaint: l leg pain 06/08 left ama Narrative: Patient presents to the emergency department after leaving AMA status post left ankle alexis ORIF on 02/03/2022 because of extreme pain. Patient reports that he has been ambulating and weight-bearing on the left lower extremity. He has not been taking anything for pain management. Patient reportedly was not taking Suboxone prior to arrival. Review of Systems Review of Systems: Yes all other systems are reviewed and are negative [facility] Past Medical History Medical History Anxiety CAD (coronary artery disease) Chronic constipation COPD (chronic obstructive pulmonary disease) Diabetes mellitus Genital herpes GERD (gastroesophageal reflux disease) History of adenomatous polyp of colon Hypertension Opioid dependence on agonist therapy JAUN (obstructive sleep apnea) Pancreatic abnormality Prepatellar bursitis, left knee Family History Family History Mother No problems noted. Father Liver cancer Surgical History Surgical History No history of previous surgery Social History Social History Household Members: Significant Other Housing: Apartment Do you presently have visiting nurse or other home services: No Alcohol intake: never Patient Tobacco Use Status: Current everyday Tobacco user Tobacco use type: Cigarette Cigarettes Per Day: 3 Second Hand Smoke Exposure: No Substance Use Type: Heroin Advance Directives: Yes Advance Directives on File: Yes Advance Directives Date on File: 01/28/22 service: No Current occupational status: retired and disabled Current occupation: right handed Meds Allergies Allergy/AdvReac Type Severity Reaction Status Date / Time No Known Allergies Allergy Verified 01/27/22 11:10 Active Medications: Current Medications Amlodipine Besylate (Amlodipine Besylate 10 Mg Tablet) 10 mg PO BEDTIME SAM; Protocol Artificial Tears (Artificial Tears 15 Ml Drops) 1 drop EYE-BOTH QID SAM Aspirin (Aspirin Enteric Coated 81 Mg Tablet.) 81 mg PO DAILY [facility] Atorvastatin Calcium (Atorvastatin Calcium 40 Mg Tablet) 40 mg PO BEDTIME [facility] Dorzolamide/Timolol (Dorzolamide/Timolo 2.23%/0.68% 10 Ml Drbtl) 1 drop EYE-BOTH BID [facility] Ferrous Sulfate (Ferrous Sulfate 300 Mg/5 Ml Liquid) 150 mg PO DAILY [facility] Fluticasone Propionate (Fluticasone Propionate 100 Mcg Blst.W.Dev) 1 puff INHALE RBID [facility] Last Admin: 02/09/22 08:04 Dose: Not Given Glipizide (Glipizide Xl 5 Mg Tab.Er.24) 5 mg PO DAILY [facility] Insulin Glargine (Insulin Glargine,Hum.Rec.Anlog 100 Unit/Ml 10 Ml Vial) 56 unit SUBCUT BEDTIME [facility] Latanoprost (Latanoprost 0.005 % Ophth Yari 2.5 Ml Drops) 1 drop EYE-BOTH BEDTIME [facility] Lisinopril (Lisinopril 40 Mg Tablet) 40 mg PO DAILY [facility]; Protocol Loratadine (Loratadine 10 Mg Tablet) 10 mg PO DAILY [facility] Metformin HCl (Metformin Hcl 1,000 Mg Tablet) 1,000 mg PO BIDWM [facility] Metoprolol Succinate (Metoprolol Succinate Er 25 Mg Tab.Er.24h) 25 mg PO DAILY [facility]; Protocol Multivitamins/Vitamin C (Multivitamin Tablet) 1 tab PO DAILY [facility] Olanzapine (Olanzapine 5 Mg Tablet) 5 mg PO BEDTIME [facility] Omeprazole (Omeprazole 20 Mg Capsule.Dr) 20 mg PO DAILY [facility] Oxybutynin Chloride (Oxybutynin Chloride Er 5 Mg Tab.Er.24) 5 mg PO DAILY [facility] Pharmacy Consult (Consult Rx Perform Med Rec) 1 each MISCELLANE ONCE PRN PRN Reason: Consult order Senna (Sennosides 8.6 Mg Tablet) 8.6 mg PO BEDTIME PRN PRN Reason: Constipation Tamsulosin HCl (Tamsulosin Hcl 0.4 Mg Capsule) 0.4 mg PO BEDTIME [facility] Trazodone HCl (Trazodone Hcl 100 Mg Tablet) 100 mg PO BEDTIME PRN PRN Reason: Insomnia Trazodone HCl (Trazodone Hcl 100 Mg Tablet) 300 mg PO BEDTIME [facility] Home Medications Medication Instructions Recorded Confirmed Last Taken Type aspirin 81 mg tablet,delayed 81 mg PO DAILY 06/06/20 02/08/22 03/26/21 History release lisinopril 40 mg tablet 40 mg PO DAILY 06/06/20 02/08/22 03/26/21 History metoprolol succinate 25 mg 25 mg PO DAILY 06/06/20 02/08/22 03/26/21 History tablet,extended release 24 hr sennosides 8.6 mg capsule (senna) 8.6 mg PO BEDTIME PRN Constipation 06/06/20 02/08/22 Unknown History buprenorphine 8 mg-naloxone 2 mg 1 film sublingual BID 12/06/20 02/08/22 03/26/21 History sublingual film amlodipine 10 mg tablet 10 mg PO BEDTIME 03/26/21 02/08/22 03/25/21 History atorvastatin 40 mg tablet 40 mg PO BEDTIME 03/26/21 02/08/22 03/25/21 History dorzolamide 22.3 mg-timolol 6.8 1 drp ophthalmic (eye) BID 03/26/21 02/08/22 03/26/21 History mg/mL eye drops fluticasone propionate 110 1 puff PO BID PRN Wheezing 03/26/21 02/08/22 Unknown History mcg/actuation HFA aerosol inhaler (Flovent HFA) glipizide 5 mg tablet, extended 5 mg PO DAILY 03/26/21 02/08/22 03/26/21 History release 24 hr insulin detemir U-100 100 unit/mL 80 unit subcut BEDTIME 03/26/21 02/08/22 03/25/21 History subcutaneous solution (Levemir U-100 Insulin) latanoprost 0.005 % eye drops 1 drp ophthalmic (eye) BEDTIME 03/26/21 02/08/22 03/25/21 History metformin 1,000 mg tablet 1,000 mg PO BID 03/26/21 02/08/22 03/26/21 History multivitamin-ferrous 1 tab PO DAILY 03/26/21 02/08/22 03/26/21 History fumarate-folic acid 18 mg-400 mcg tablet (Certavite-Antioxidant) olanzapine 5 mg tablet (Zyprexa) 5 mg PO BEDTIME 03/26/21 02/08/22 03/25/21 History omega-3 fatty acids-fish oil 340 1 cap PO TID 03/26/21 02/08/22 03/26/21 History mg-1,000 mg capsule (Fish Oil) peg [id number] 1 1 drp ophthalmic (eye) QID 03/26/21 02/08/22 03/26/21 History %-0.2 %-0.2 % eye drops (Dry Eye Relief) trazodone 100 mg tablet 100 mg PO BEDTIME PRN Insomnia 03/26/21 02/08/22 03/25/21 History trazodone 150 mg tablet 300 tab PO BEDTIME 03/26/21 02/08/22 03/25/21 History clotrimazole 1 % topical cream 1 appl topical BID 09/11/21 02/08/22 Unknown History loratadine 10 mg tablet 10 mg PO QAM 09/11/21 02/08/22 Unknown History naproxen 500 mg tablet 1 tab PO BID PRN pain 01/27/22 01/27/22 Unknown History Physical Exam Vital Signs: Vital Signs: Last Vital Signs Temp 99.3 F 02/09/22 06:27 Pulse 86 02/09/22 06:27 Resp 17 02/09/22 06:27 BP 143/72 H 02/09/22 06:27 Pulse Ox 98 02/09/22 06:27 O2 Del Method 02/09/22 06:27 BMI result Body Mass Index 31.3 Const: General: cooperative, healthy appearing and no acute distress Resp: Effort & Inspection: normal respiratory effort and able to speak in complete sentences Cardio: Rate: regular rate Peripheral pulses: Peripheral pulses 2+ throughout GI: Palpation (GI): Soft to palpation Skin: Lesions: no lesions Rashes: no rashes Extrem: Other: Left ankle prior medial malleolar fracture blister showing signs of healing with no erythema or drainage. No signs of infection. Medial and lateral incision sites are clean dry and intact. [place] intact. No erythema or drainage from the incision sites. Sensation is intact. Pedal pulse intact. Results Labs Result Diagrams: 02/08/22 17:36 02/08/22 17:36 Labs: Abnormal lab results 02/08/22 02/08/22 Range/Units 17:36 17:36 WBC 13.2 H (4.8-10.8) X10*3/uL RBC 3.62 L (4.60-5.80) X10*6/uL Hgb 11.1 L (14.0-18.0) g/dl Hct 31.1 L (42.0-52.0) % Plt Count 427 H (160-400) X10*3/uL MPV 8.6 L (9.4-12.4) fL Immature Gran % (Auto) 0.5 H (0.0-0.4) % Lymph % (Auto) 17.4 L (20-40) % Abs Immat Gran (auto) 0.07 H (0.00-0.03) X10*3/uL Absolute Neuts (auto) 9.6 H (2.0-8.3) x10*3/uL Sodium 131 L (135-145) mmol/L Potassium 3.1 L D (3.3-5.1) mmol/L Chloride 94 L (96-108) mmol/L Random Glucose 130 H D (60-115) mg/dL Total Creatine Kinase 342 H D (38-174) U/L H & H 02/08/22 Range/Units 17:36 Hgb 11.1 L (14.0-18.0) g/dl Hct 31.1 L (42.0-52.0) % All other labs normal. Assessment and Plan (1) Opioid dependence on agonist therapy: Status: Acute (2) Diabetes mellitus: Status: Acute (3) Bimalleolar ankle fracture: Status: Acute Plan Mr. Garza is a 71-year-old male who presented to the emergency department after leaving AMA status post left ankle by malleolar ORIF on 02/03/2022. Patient has a past medical history significant for diabetes and opioid abuse on Suboxone. Orthopedics was consulted for further evaluation and treatment. Splint was removed while in the emergency department for a skin check. There are no signs of infection at this point in time. Reiterated to the patient that he should be nonweightbearing at all times. He remains to be noncompliant. Recommendation would be rehab placement. However, the patient wants to go home. The patient has an appointment scheduled in the outpatient setting on 02/12/2022 at 09:15 for follow-up status post surgery. Procedures Date of Service Date of Service: 02/09/22
[2022-02-09 08:15] VITALS: BP 159/80; PULSE 76; RESP 18; O2SAT 97
[2022-02-09] MEDS: lisinopriL 40 MG TABLET PO (08:15)
[2022-02-09] MEDS: Aspirin Enteric Coated 81 MG TABLET.DR PO (08:15)
[2022-02-09] MEDS: Omeprazole 20 MG CAPSULE.DR PO (08:16)
[2022-02-09] MEDS: Loratadine 10 MG TABLET PO (08:16)
[2022-02-09] MEDS: Metoprolol Succinate ER 25 MG TAB.ER.24H PO (08:16)
[2022-02-09] MEDS: Multivitamin TABLET 1 TAB PO (08:18)
[2022-02-09] MEDS: Ferrous Sulfate 300 MG/5 ML LIQUID 150 MG PO (08:39)
[2022-02-09] MEDS: Artificial Tears 15 ML DROPS 1 DROP EYE-BOTH (08:39)
[2022-02-09] MEDS: Dorzolamide/Timolo 2.23%/0.68% 10 ML DRBTL 1 DROP EYE-BOTH (08:39)
[2022-02-09] MEDS: glipiZIDE XL 5 MG TAB.ER.24 PO (08:40)
[2022-02-09 10:48] LABS: Amphetamine Screen Urine Not Detected (Not Detect); Barbiturates, Urine Not Detected (Not Detect); Benzodiazepines Screen Urine Not Detected (Not Detect); Cannabinoid Screen Urine Not Detected (Not Detect); Cocaine Screen Urine Not Detected (Not Detect); Fentanyl, urine POSITIVE (Not Detect); Opiate Screen Urine POSITIVE (Not Detect); Phencyclidine Screen Urine Not Detected (Not Detect)
--- NOTE | 2022-02-09 10:57 | MHC.RECOVSUP ---
Recovery Support note: Patient is a 71 year old [place] speaking male who [place] [facility] due to inability to manage at home due to a foot injury. This production underwriter met with patient to discuss substance use and mental health. Patient reports it has been several months since he last used heroin. Patient reports he receives Suboxone through the [facility] and he finds it helpful. Patient reports no concerns related to his recovery. Patient denies SI/HI/AH/VH. Patient also denies symptoms of depression or anxiety. Discussed case with nurse case manager.
[2022-02-09] MEDS: Ketorolac Tromethamine 30 MG/ML VIAL IM (14:50)
--- NOTE | 2022-02-09 14:52 | MHC.CM.ED ---
Received case management consult overnight. Patient was recently d/c'd from [facility] home. Patient returned due to LLE pain. Physical therapy eval completed. Short term rehab is recommended. Met with patient in regards to discharge planning. Patient lives alone, has a walker. Patient is vaccinated and received 2 boosters. Patient is aware placement may be difficult to find due to Suboxone. Patient sees Dr Barrios for Suboxone. [facility] is able to offer a bed. [facility] is trying to verify Suboxone with provider. Patient's 1st choice is [facility] because it's closer. He doesn't feel he can accept the bed at [facility] because it's too far. Patient will need a [facility] PASRR level 2. T/W alreadly submitted with [facility] PAS[facility]. Continue to monitor for d/c needs.
--- NOTE | 2022-02-09 15:28 | PC.NURSE ---
Pt stating that he wants to leave against medical advice. despite education on risks, pt continued to refuse to stay. Provider made aware. Pt provided with crutches and left after signing forms.
--- NOTE | 2022-02-10 07:52 | MHC.CM.ED ---
Late entry from 02/09/22 at 16:00: Received notification from Brenda KHANNA that patient left AMA.
== END 2022-02-09 15:29 | disposition still patient (30) ==
PROVIDERS: Nurse Practitioner Family; Physician Assistant; Physician Assistant Medical; Emergency Provider Emergency Medicine; PCP Internal Medicine
DX: S82.842D Displaced bimalleolar fracture of left lower leg, subsequent encounter for closed fracture with routine healing (principal); X58.XXXD Exposure to other specified factors, subsequent encounter; M79.605 Pain in left leg; M25.572 Pain in left ankle and joints of left foot; I10 Essential (primary) hypertension; E11.9 Type 2 diabetes mellitus without complications; I25.10 Atherosclerotic heart disease of native coronary artery without angina pectoris; J44.9 Chronic obstructive pulmonary disease, unspecified; F11.20 Opioid dependence, uncomplicated; Z20.822 Contact with and (suspected) exposure to COVID-19
CPT/HCPCS: 36415; 73610; 80048; 80307; 82550; 85025; 87635; 93971; 96372; 97162; 99284; 99285; J1885

== ENCOUNTER 2022-02-12 07:11 | Outpatient (REF) | payer OTHER, SELFPAY | END 2022-02-12 07:12 | disposition home or self-care (01) | LOC: HO.HOSX 07:11 | PROVIDERS: Visit Provider Physician Assistant | DX: Z13.89 Encounter for screening for other disorder (principal) ==

== ENCOUNTER 2022-02-13 15:10 | Inpatient (IN) | payer OTHER, SELFPAY ==
[2022-02-13] VITALS (11 sets, daily range): BP systolic 153–177; BP diastolic 77–89; PULSE 73–90; RESP 16–20; TEMP 36.7–38.1; O2SAT 95–98; BMI 27.3; BMI 29.7
--- NOTE | ~2022-02-13 | CT_ITS ---
EXAMINATION: CT CHEST, ABDOMEN AND PELVIS WITHOUT CONTRAST CLINICAL INFORMATION: Fall with bilateral rib pain and diffuse abdominal pain and tenderness. COMPARISON: CT chest abdomen and pelvis 02/06/2022, CT abdomen and pelvis 09/07/2021 TECHNIQUE: Multidetector volumetric imaging was performed from the thoracic inlet through the pubic symphysis. Sagittal and coronal reformatted images were obtained on the technologist's workstation. Axial MIP volume rendering provided. This CT examination was performed using dose optimization techniques as appropriate, variously including the following: *Automated exposure control *Adjustment of mA and/or kV according to patient size (this includes techniques or standardized protocols for targeted exams where dose is matched to indication/reason for exam; i.e. extremities or head) *Use of iterative reconstruction technique DLP: 892 mGy-cm FINDINGS: CHEST: Lungs: No airspace consolidation. No pneumothorax. No suspicious pulmonary nodule or mass. Minimal dependent left basilar atelectasis. Central airways are clear. Mediastinum: No cardiomegaly. Trace simple fluid density pericardial effusion. Mild LAD and right coronary artery vascular calcifications. Mild aortic vascular calcification. No thoracic aortic aneurysm. Normal caliber central pulmonary trunk. No mediastinal or hilar lymphadenopathy. Small hiatal hernia. Pericardium/Pleura: There is no significant effusion. No pleural mass or thickening. Chest Wall/Axilla: No axillary lymphadenopathy. Increased subareolar soft tissue densities bilaterally compatible with gynecomastia. ABDOMEN/PELVIS: Liver, Gallbladder, Biliary Tree: The liver is normal in size, shape, and attenuation. No focal hepatic lesion or biliary ductal dilatation is present. The gallbladder is unremarkable with no evidence of radiopaque gallstones, gallbladder wall thickening, or pericholecystic inflammatory changes. Pancreas: Unremarkable. Spleen: Unremarkable. Adrenal Glands: Unchanged 3.8 cm low-density left adrenal nodule compatible lipid rich adenoma. Unchanged 5.4 cm slightly heterogeneous low-density right adrenal nodule with some calcification, also likely a adenoma. Kidneys and Ureters: Approximately 1.1 cm low-density left upper pole renal lesion, likely a cyst. No other renal lesions. No radiodense urinary tract calculi. No perinephric stranding or collections. Slight fullness the right renal collecting system. No significant hydronephrosis. Bladder: Markedly distended. No bladder wall thickening. A small bladder diverticulum projecting from the posterior right bladder is noted. Gastrointestinal Tract: Moderate to large amount formed stool throughout the nondilated colon. Sigmoid diverticulosis. No evidence of acute diverticulitis. No dilated bowel loops. No bowel wall thickening. Unremarkable appendix. No ascites or free air. Abdominal Wall: Small fat-containing bilateral inguinal hernias. Subcutaneous stranding in the ventral abdominal wall, presumably chronic injection sites. Correlate clinically. Lymphovascular Structures: Lymph nodes: 0.8 cm paraesophageal lymph node adjacent to small hiatal hernia, nonspecific. No mesenteric or retroperitoneal lymphadenopathy. No pelvic lymphadenopathy. Vascular: Mildly tortuous abdominal aorta with mild vascular calcifications. No abdominal aortic aneurysm. Pelvic Viscera: Unremarkable. OSSEOUS STRUCTURES: No acute fracture or suspicious osseous lesion. Minimal multilevel degenerative disc disease in the thoracolumbar spine. Chronic/healed fracture deformities of the anterolateral right sixth through eighth ribs noted. No acute rib fracture identified. CT/CT abdomen pelvis wo con IMPRESSION: 1. No acute fractures identified. 2. No acute injury identified in the chest, abdomen, or pelvis. 3. Unchanged chronic ancillary findings, as described.
--- NOTE | ~2022-02-13 | US_ITS ---
EXAMINATION: US VENOUS ULTRASOUND WITH DOPPLER LOWER EXTREMITY, LEFT CLINICAL INFORMATION: Pain. Postoperative. COMPARISON: Left lower extremity Venous Doppler exam 09/10/2021. TECHNIQUE: Ultrasound of the deep veins is performed from the hip to the calf with compression sonography and color and pulse Doppler assessment. Spectral analysis with color-flow imaging is performed. FINDINGS: There is normal venous compression and respiratory variation and augmented flow. The visualized common femoral vein, superficial femoral vein, profunda femoral vein, popliteal vein, and the trifurcation region shows no evidence of deep venous thrombosis. There is no significant popliteal fossa cyst. If the patient's symptoms persist, followup ultrasound in 5 days 7 days might be of value to exclude proximal propagation from a non-visualized calf vein. US/US venous duplex LE IMPRESSION: No DVT demonstrated in the left lower extremity.
--- NOTE | ~2022-02-13 | CT_ITS ---
EXAMINATION: CT HEAD WITHOUT CONTRAST CT CERVICAL SPINE WITHOUT CONTRAST CLINICAL INFORMATION: Altered mental status COMPARISON: CT head and CT cervical spine 09/07/2021 TECHNIQUE: Imaging was performed from the skull base to vertex without intravenous administration of contrast. In addition, helical noncontrast CT imaging was acquired through the cervical spine and source images were reviewed along with axial reconstructions and sagittal and coronal MPRs. [This CT examination was performed using dose optimization techniques as appropriate, variously including the following: *Automated exposure control *Adjustment of mA and/or kV according to patient size (this includes techniques or standardized protocols for targeted exams where dose is matched to indication/reason for exam; i.e. extremities or head) *Use of iterative reconstruction technique] DLP: 1490 mGy-cm FINDINGS: HEAD: No acute abnormality. No intracranial mass, hemorrhage, or midline shift is visualized. 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 There is generalized global volume loss. There is moderate prominence of the ventricles and the sulci . There is mild hypodensity of the periventricular white matter due to chronic small vessel ischemic disease. There are vascular calcifications of the internal carotid arteries bilaterally. . No extra-axial collections are identified. The paranasal sinuses and mastoid air cells are well aerated. CERVICAL SPINE: There is no evidence of acute cervical spine fracture. Vertebral bodies remain normal in height. Cervical vertebrae have normal alignment. Cervical disc heights are normal. Facet joints are normal. No pre- or paravertebral soft tissue abnormality is identified. Limited assessment of the lung apices is unremarkable. CT/CT cervical spine wo con IMPRESSION: 1. No acute intracranial pathology. 2. No CT evidence of acute cervical spine fracture or traumatic subluxation
--- NOTE | ~2022-02-13 | XR_ITS ---
EXAMINATION: XR ANKLE, LEFT CLINICAL INFORMATION: Fall COMPARISON: Left ankle radiographs 02/08/2022 TECHNIQUE: AP, lateral, and mortise views of the left ankle. FINDINGS: Status post plate and screw fixation of distal fibular fracture with intact fixation and unchanged anatomic alignment. 2 cannulated partially threaded screws transfix an oblique fracture through the medial malleolus, also unchanged alignment. Fixation screws are intact. Skin cruzito remain in place both medially and laterally. Minimal widening of the medial clear space. No new fracture. No dislocation. Mild calcaneal spurs. Overlying up in splint/cast material. XR/XR ankle LT 2V IMPRESSION: 1. Status post ORIF of the medial malleolar and distal fibular fractures with intact fixation and unchanged alignment. No new fracture.
--- NOTE | 2022-02-13 16:09 | ECG_ITS ---
Test Reason : FALL Blood Pressure : / mmHG Vent. Rate : 073 BPM Atrial Rate : 073 BPM P-R Int : 186 ms QRS Dur : 124 ms QT Int : 446 ms P-R-T Axes : 061 -64 034 degrees QTc Int : 491 ms Normal sinus rhythm Left anterior fascicular block Abnormal ECG When compared with ECG of 06-FEB-2022 14:28, No significant change was found Referred By: Ivette Ibanez Electronically Signed By:Franco Giordano
--- NOTE | 2022-02-13 16:42 | PHA.MEDREC ---
Pharmacy Consult ? Medication Reconciliation Pharmacy has completed the medication reconciliation. Patient stated nothing has changed since last admission, took last dose of medication a few days ago
[2022-02-13 16:48] LABS: MANUAL DIFF FLAG NO
[2022-02-13 16:51] LABS: Basophils Percent Auto 0.1 % (0-2); Eosinophils Percent Auto 0.1 % (0-4); Hematocrit 30.2 % (42.0-52.0); Hemoglobin 10.4 g/dl (14.0-18.0); Imm Gran Pct Auto 0.7 % (0.0-0.4); Lymphocytes Absolute Auto 1.2 X10*3/uL (1.2-4.9); Mean Corpuscular HGB Conc 34.4 g/dl (31.0-36.0); Mean Corpuscular Hemoglobin 30.2 pg (27.0-33.0); Mean Corpuscular Volume 87.8 fL (80.0-98.0); Mean Platelet Volume 8.8 fL (9.4-12.4); Monocytes Absolute Auto 1.1 X10*3/uL (0.1-1.2); Neutrophils Absolute Auto 11.1 x10*3/uL (2.0-8.3); Neutrophils Percent Auto 82.1 % (45-73); Platelet Count 449 X10*3/uL (160-400); Red Blood Count 3.44 X10*6/uL (4.60-5.80); Red Cell Distribution Width 12.5 % (11.0-16.0); White Blood Count 13.6 X10*3/uL (4.8-10.8)
[2022-02-13 16:58] LABS: Ammonia 21 umol/L (13-55)
[2022-02-13 17:02] LABS: Ethanol < 10 mg/dL
[2022-02-13 17:04] LABS: INTERNATIONAL NORM RATIO 1.3 (0.9-1.1); Prothrombin Time 14.9 SEC (9.9-13.0)
--- NOTE | 2022-02-13 17:07 | ED_ITS ---
HPI - Fall General Chief Complaint: Fall <CLEMENCIA Cosby Last Filed: 02/13/22 17:59> Stated Complaint: MECH FALL W/ EXTREMITY PAIN <CLEMENCIA Cosby Last Filed: 02/13/22 17:59> Time Seen by Provider: 02/13/22 15:17 <CLEMENCIA Cosby Last Filed: 02/13/22 17:59> Source: patient and EMS <CLEMENCIA Cosby Last Filed: 02/13/22 17:59> Mode of arrival: EMS <CLEMENCIA Cosby Last Filed: 02/13/22 17:59> History of Present Illness HPI Narrative: 71-year-old male with a past medical history of left ankle fracture s/p surgery on 02/03 presenting to the ED for fall this morning at 11:30AM, no reported head trauma or LOC. Per daughter patient was on the ground until 14:00 when she got home, reports patient has been increasingly lethargic, sleeping all the time, not eating or drinking, and is fearful for patient living alone. Of note patient left AMA from the emergency department on 02/09 after he was evaluated by PT for STR placement. Patient is poor historian, continuously falling asleep during exam <CLEMENCIA Cosby Last Filed: 02/13/22 17:59> MD complaint: fall <CLEMENCIA Cosby Last Filed: 02/13/22 17:59> Onset (ago): hour(s) <CLEMENCIA Cosby Last Filed: 02/13/22 17:59> Related Data Home Medications: Home Medications Medication Instructions Recorded Confirmed aspirin 81 mg tablet,delayed 81 mg PO DAILY 06/06/20 02/13/22 release lisinopril 40 mg tablet 40 mg PO DAILY 06/06/20 02/13/22 metoprolol succinate 25 mg 25 mg PO DAILY 06/06/20 02/13/22 tablet,extended release 24 hr sennosides 8.6 mg capsule (senna) 8.6 mg PO BEDTIME PRN Constipation 06/06/20 02/13/22 buprenorphine 8 mg-naloxone 2 mg 1 film sublingual BID 12/06/20 02/13/22 sublingual film amlodipine 10 mg tablet 10 mg PO BEDTIME 03/26/21 02/13/22 atorvastatin 40 mg tablet 40 mg PO BEDTIME 03/26/21 02/13/22 dorzolamide 22.3 mg-timolol 6.8 1 drp ophthalmic (eye) BID 03/26/21 02/13/22 mg/mL eye drops fluticasone propionate 110 1 puff PO BID PRN Wheezing 03/26/21 02/13/22 mcg/actuation HFA aerosol inhaler (Flovent HFA) glipizide 5 mg tablet, extended 5 mg PO DAILY 03/26/21 02/13/22 release 24 hr insulin detemir U-100 100 unit/mL 80 unit subcut BEDTIME 03/26/21 02/13/22 subcutaneous solution (Levemir U-100 Insulin) latanoprost 0.005 % eye drops 1 drp ophthalmic (eye) BEDTIME 03/26/21 02/13/22 metformin 1,000 mg tablet 1,000 mg PO BID 03/26/21 02/13/22 multivitamin-ferrous 1 tab PO DAILY 03/26/21 02/13/22 fumarate-folic acid 18 mg-400 mcg tablet (Certavite-Antioxidant) olanzapine 5 mg tablet (Zyprexa) 5 mg PO BEDTIME 03/26/21 02/13/22 omega-3 fatty acids-fish oil 340 1 cap PO TID 03/26/21 02/13/22 mg-1,000 mg capsule (Fish Oil) peg [id number] 1 1 drp ophthalmic (eye) QID 03/26/21 02/13/22 %-0.2 %-0.2 % eye drops (Dry Eye Relief) trazodone 100 mg tablet 100 mg PO BEDTIME PRN Insomnia 03/26/21 02/13/22 trazodone 150 mg tablet 300 tab PO BEDTIME 03/26/21 02/13/22 clotrimazole 1 % topical cream 1 appl topical BID 09/11/21 02/13/22 loratadine 10 mg tablet 10 mg PO QAM 09/11/21 02/13/22 naproxen 500 mg tablet 1 tab PO BID PRN pain 01/27/22 02/13/22 Previous Rx's Medication Instructions Recorded ferrous sulfate 15 mg iron (75 2 ml PO DAILY 30 days #60 mL 09/02/21 mg)/mL oral drops oxybutynin chloride 5 mg 5 mg PO DAILY 90 days #90 tabs 09/11/21 tablet,extended release 24 hr tamsulosin 0.4 mg capsule 0.4 mg PO BEDTIME 90 days #90 caps 09/11/21 omeprazole 20 mg capsule,delayed 20 mg PO DAILY 90 days #90 caps 09/19/21 release lidocaine 4 % topical patch 1 patch topical DAILY PRN pain #10 10/02/21 ea <CLEMENCIA Cosby - Last Filed: 02/13/22 17:59> Allergies/Adverse Reactions: Allergies Allergy/AdvReac Type Severity Reaction Status Date / Time No Known Allergies Allergy Verified 01/27/22 11:10 <CLEMENCIA Cosby - Last Filed: 02/13/22 17:59> Review of Systems Review of Systems: Constitutional: No Fever, + Fatigue, No Malaise Neuro: +AMS ROS limited secondary to patient's acute mental status <CLEMENCIA Cosby - Last Filed: 02/13/22 17:59> Yes all other systems are reviewed and are negative <CLEMENCIA Cosby - Last Filed: 02/13/22 17:59> [facility] Past Medical History Attestation statement: The following information was validated with the patient. <CLEMENCIA Cosby - Last Filed: 02/13/22 17:59> Medical History: Medical History Anxiety CAD (coronary artery disease) COPD (chronic obstructive pulmonary disease) Genital herpes JAUN (obstructive sleep apnea) Pancreatic abnormality <CLEMENCIA Cosby - Last Filed: 02/13/22 17:59> Surgical History: Surgical History No history of previous surgery <CLEMENCIA Cosby - Last Filed: 02/13/22 17:59> Family History Family History: Family History Mother No problems noted. Father Liver cancer <CLEMENCIA Cosby - Last Filed: 02/13/22 17:59> Social History Social History: Social History Household Members: Significant Other Housing: Apartment Do you presently have visiting nurse or other home services: No Alcohol intake: never Patient Tobacco Use Status: Current everyday Tobacco user Tobacco use type: Cigarette Cigarettes Per Day: 3 Second Hand Smoke Exposure: No Substance Use Type: Heroin Advance Directives: Yes Advance Directives on File: Yes Advance Directives Date on File: 01/28/22 service: No Current occupational status: retired and disabled Current occupation: right handed <CLEMENCIA Cosby - Last Filed: 02/13/22 17:59> Physical Exam Vital Signs: Vital Signs: Last Vital Signs Temp 99.0 F 02/13/22 19:10 Pulse 81 02/13/22 19:10 Resp 16 02/13/22 19:10 BP 162/82 H 02/13/22 19:10 Pulse Ox 98 02/13/22 19:10 O2 Del Method 02/13/22 19:10 BMI result Body Mass Index 27.3 <CLEMENCIA Cosby - Last Filed: 02/13/22 17:59> Vital Signs: Last Vital Signs Temp 99.0 F 02/13/22 19:10 Pulse 81 02/13/22 19:10 Resp 16 02/13/22 19:10 BP 162/82 H 02/13/22 19:10 Pulse Ox 98 02/13/22 19:10 O2 Del Method 02/13/22 19:10 BMI result Body Mass Index 27.3 <Yolie Ovalle NP - Last Filed: 02/13/22 19:36> Const: General: lethargic <CLEMENCIA Cosby - Last Filed: 02/13/22 17:59> Orientation/consciousness: oriented to person, oriented to place and lethargic <CLEMENCIA Cosby - Last Filed: 02/13/22 17:59> Limitations: altered mental status <CLEMENCIA Cosby - Last Filed: 02/13/22 17:59> HEENT: Head: Yes normal to inspection and Yes atraumatic <CLEMENCIA Cosby - Last Filed: 02/13/22 17:59> Ears: hearing grossly normal bilaterally <CLEMENCIA Cosby - Last Filed: 02/13/22 17:59> General nose exam: Normal external nose present <Ivette Ibanez PA - Last Filed: 02/13/22 17:59> Face and sinus: Yes normal facial exam <Ivette Ibanez PA - Last Filed: 02/13/22 17:59> Mouth: mucous membranes dry <Ivette Ibanez, PA - Last Filed: 02/13/22 17:59> Eyes: General: appearance normal, both eyes and all related structures <Ivette Poulpapot PA - Last Filed: 02/13/22 17:59> Pupils: Pinpoint pupils bilaterally <Ivette Poulpapot, PA - Last Filed: 02/13/22 17:59> EOM: EOMs intact bilaterally <Ivette Ibanez PA - Last Filed: 02/13/22 17:59> Neck: Other: Patient self removed C-collar/will not keep on <Ivette Ibanez PA - Last Filed: 02/13/22 17:59> Neck: Yes normal visual inspection and Yes no meningeal signs <Ivette Venturat PA - Last Filed: 02/13/22 17:59> Chest: Other: Bilateral rib/chest wall tenderness <Ivette Ibanez PA - Last Filed: 02/13/22 17:59> Chest palpation & inspection: no crepitus and tenderness <Ivette Ibanez PA - Last Filed: 02/13/22 17:59> Resp: Effort & Inspection: normal respiratory effort and no respiratory distress <Ivette Ibanez PA - Last Filed: 02/13/22 17:59> Auscultation: clear to auscultation bilaterally <Ivette Poulpapot PA - Last Filed: 02/13/22 17:59> Cardio: Rate: regular rate <Ivette Poulirish PA - Last Filed: 02/13/22 17:59> Heart sounds: S1 normal heart sound present and S2 normal heart sound present <Ivette Poulirish PA - Last Filed: 02/13/22 17:59> GI: Inspection: Yes normal to inspection <Ivette Ibanez PA - Last Filed: 02/13/22 17:59> Palpation (GI): Soft to palpation, Tenderness to palpation present (GI) (Diffusely) with no rebound tenderness, no guarding and not rigid <CLEMENCIA Cosby Last Filed: 02/13/22 17:59> Back/Spine/Pelvis: Other: No midline thoracic/lumbar spinous tenderness/step-off or deformity <CLEMENCIA Cosby Last Filed: 02/13/22 17:59> Skin: Rashes: no rashes <CLEMENCIA oCsby - Last Filed: 02/13/22 17:59> Wounds: no wounds <CLEMENCIA Cosby - Last Filed: 02/13/22 17:59> Neuro: General: oriented to person, oriented to place, tone normal, moves all extremities, no meningeal signs, no focal motor deficits and CN's II-XI intact b ilaterally <CLEMENCIA Cosby - Last Filed: 02/13/22 17:59> Cranial nerves: Yes CN's II-XII intact bilaterally <CLEMENCIA Cosby - Last Filed: 02/13/22 17:59> Extrem: Other: Please refer to images above. + pitting edema with bilateral blisters containing yellow/clear fluid. Lateral aspect with erythema and slight warmth. No streaking. No crepitus. Tender to palpation. Neurovascularly intact <CLEMENCIA Cosby Last Filed: 02/13/22 17:59> Course Course Course Narrative: -1734--chronic leukocytosis to 13.6. H&H at baseline, acute on chronic hyponatremia. Chronic transaminitis -CPK elevated to 2295 > will give IVF and monitor closely CT head/brain wo con//CT cervical spine IMPRESSION: 1. No acute intracranial pathology. 2. No CT evidence of acute cervical spine fracture or traumatic subluxation ? -case discussed with orthopedic CLEMENCIA Ray who recommends elevation, LLE needs to dry out, nonweightbearing and admission to Medicine > empiric IV Ancef given -1800--ED care transferred to [facility] pending remaining CTs, venous duplex ultrasound and admission <CLEMENCIA Cosby Last Filed: 02/13/22 17:59> Reevaluation(s) Reevaluation #1: This patient was signed out to me at 18:[address] abdomen and pelvis, CT chest, venous ultrasound and admission. I reviewed his CT abdomen/pelvis/chest which show no acute finding. His venous ultrasound is negative for DVT. The patient will need admission for rhabdomyolis, altered mental status, left surgical wound infection. Will speak to Medicine for admission <Yolie Ovalle NP - Last Filed: 02/13/22 19:36> Time: 18:45 <Yolie Ovalle NP - Last Filed: 02/13/22 19:36> Reevaluation #2: Spoke to Dr Weeks from medicine who accepted admission. <Yolie Ovalle NP - Last Filed: 02/13/22 19:36> Time: 19:30 <Yolie Ovalle NP - Last Filed: 02/13/22 19:36> MDM - Fall MDM Narrative Medical decision making narrative: 71-year-old male with a past medical history of left ankle fracture s/p surgery on 02/03 presenting to the ED for fall this morning at 11:30AM, no reported head trauma or LOC. Per daughter patient was on the ground until 14:00 when she got home, reports patient has been increasingly lethargic, sleeping all the time, not eating or drinking, and is fearful for patient living alone. On exam vital signs stable, A&O x2, lethargic needing to be awoken during exam, lungs CTA, bilateral rib tenderness in diffuse abdominal tenderness noted on exam. Please refer to images above of LLE which appears infected/cellulitic with pitting edema. Concern for cellulitis vs DVT vs metabolic abnormalities vs rhabdo vs substance abuse vs ICH Plan: EKG, labs, UA, head/C-spine/chest/abdomen/pelvis CT, repeat lower extremity x-rays, consult Orthopedics, anticipated admission <CLEMENCIA Cosby - Last Filed: 02/13/22 17:59> Differential Diagnosis Differential diagnosis: Likely fracture <CLEMENCIA Cosby - Last Filed: 02/13/22 17:59> Medical Records Attestation: I reviewed the patient's medical records. <CLEMENCIA Cosby - Last Filed: 02/13/22 17:59> Lab Data Attestation: I reviewed the patient's lab results. <CLEMENCIA Cosby - Last Filed: 02/13/22 17:59> Result diagrams: : 02/13/22 16:40 02/13/22 16:40 <CLEMENCIA Cosby - Last Filed: 02/13/22 17:59> Labs: Lab Results 02/13/22 02/13/22 02/13/22 Range/Units 16:40 16:40 16:40 WBC 13.6 H (4.8-10.8) X10*3/uL RBC 3.44 L (4.60-5.80) X10*6/uL Hgb 10.4 L (14.0-18.0) g/dl Hct 30.2 L (42.0-52.0) % MCV 87.8 (80.0-98.0) fL MCH 30.2 (27.0-33.0) pg MCHC 34.4 (31.0-36.0) g/dl RDW 12.5 (11.0-16.0) % Plt Count 449 H (160-400) X10*3/uL MPV 8.8 L (9.4-12.4) fL Immature Gran % (Auto) 0.7 H (0.0-0.4) % Neut % (Auto) 82.1 H (45-73) % Lymph % (Auto) 9.0 L (20-40) % [place] % (Auto) 8.0 (2-11) % Eos % (Auto) 0.1 (0-4) % Baso % (Auto) 0.1 (0-2) % Lymph # (Auto) 1.2 (1.2-4.9) X10*3/uL [place] # (Auto) 1.1 (0.1-1.2) X10*3/uL Eos # (Auto) 0.0 (0.0-0.4) X10*3/uL Baso # (Auto) 0.0 (0.0-0.2) X10*3/uL Abs Immat Gran (auto) 0.10 H (0.00-0.03) X10*3/uL Absolute Neuts (auto) 11.1 H (2.0-8.3) x10*3/uL Absolute Nucleated RBC 0.000 (0.0-0.012) X10*3/uL Nucleated RBC % (auto) 0.0 (0.0-0.2) /100WBC PT (9.9-13.0) SEC INR (0.9-1.1) Sodium 129 L (135-145) mmol/L Potassium 3.9 D (3.3-5.1) mmol/L Chloride 93 L (96-108) mmol/L Carbon Dioxide 27 (22-29) mmol/L Anion Gap 13 (12-20) BUN 20 H D (9-16) mg/dL Creatinine 0.75 (0.5-1.4) mg/dL Estim Creat Clear Calc 84.8 Estimated GFR > 60 Random Glucose 211 H D (60-115) mg/dL Lactic Acid (0.5-2.0) mmol/L Calcium 9.2 (8.4-10.2) mg/dL Magnesium 1.5 L (1.6-2.6) mg/dL Total Bilirubin 0.7 (0.0-1.0) mg/dL Direct Bilirubin 0.4 (0.0-0.5) mg/dL AST 145 H (5-37) U/L ALT 69 H (0-40) U/L Alkaline Phosphatase 107 D (39-117) U/L Ammonia 21 (13-55) umol/L Total Creatine Kinase 2295 H D (38-174) U/L Troponin I High Sens (<3.5-35.0) ng/L Total Protein 6.6 (6.5-8.0) g/dL Albumin 3.3 L (3.5-5.0) g/dL Lipase 25 (8-78) U/L Salicylates < 5.0 L (15-30) mg/dL Acetaminophen 7 (<30) mcg/mL Ethyl Alcohol mg/dL 02/13/22 02/13/22 02/13/22 Range/Units 16:40 16:40 16:40 WBC (4.8-10.8) X10*3/uL RBC (4.60-5.80) X10*6/uL Hgb (14.0-18.0) g/dl Hct (42.0-52.0) % MCV (80.0-98.0) fL MCH (27.0-33.0) pg MCHC (31.0-36.0) g/dl RDW (11.0-16.0) % Plt Count (160-400) X10*3/uL MPV (9.4-12.4) fL Immature Gran % (Auto) (0.0-0.4) % Neut % (Auto) (45-73) % Lymph % (Auto) (20-40) % [place] % (Auto) (2-11) % Eos % (Auto) (0-4) % Baso % (Auto) (0-2) % Lymph # (Auto) (1.2-4.9) X10*3/uL [place] # (Auto) (0.1-1.2) X10*3/uL Eos # (Auto) (0.0-0.4) X10*3/uL Baso # (Auto) (0.0-0.2) X10*3/uL Abs Immat Gran (auto) (0.00-0.03) X10*3/uL Absolute Neuts (auto) (2.0-8.3) x10*3/uL Absolute Nucleated RBC (0.0-0.012) X10*3/uL Nucleated RBC % (auto) (0.0-0.2) /100WBC PT 14.9 H (9.9-13.0) SEC INR 1.3 H (0.9-1.1) Sodium (135-145) mmol/L Potassium (3.3-5.1) mmol/L Chloride (96-108) mmol/L Carbon Dioxide (22-29) mmol/L Anion Gap (12-20) BUN (9-16) mg/dL Creatinine (0.5-1.4) mg/dL Estim Creat Clear Calc Estimated GFR Random Glucose (60-115) mg/dL Lactic Acid (0.5-2.0) mmol/L Calcium (8.4-10.2) mg/dL Magnesium (1.6-2.6) mg/dL Total Bilirubin (0.0-1.0) mg/dL Direct Bilirubin (0.0-0.5) mg/dL AST (5-37) U/L ALT (0-40) U/L Alkaline Phosphatase (39-117) U/L Ammonia (13-55) umol/L Total Creatine Kinase (38-174) U/L Troponin I High Sens 11.1 D (<3.5-35.0) ng/L Total Protein (6.5-8.0) g/dL Albumin (3.5-5.0) g/dL Lipase (8-78) U/L Salicylates (15-30) mg/dL Acetaminophen (<30) mcg/mL Ethyl Alcohol < 10 mg/dL 02/13/22 Range/Units 17:59 WBC (4.8-10.8) X10*3/uL RBC (4.60-5.80) X10*6/uL Hgb (14.0-18.0) g/dl Hct (42.0-52.0) % MCV (80.0-98.0) fL MCH (27.0-33.0) pg MCHC (31.0-36.0) g/dl RDW (11.0-16.0) % Plt Count (160-400) X10*3/uL MPV (9.4-12.4) fL Immature Gran % (Auto) (0.0-0.4) % Neut % (Auto) (45-73) % Lymph % (Auto) (20-40) % [place] % (Auto) (2-11) % Eos % (Auto) (0-4) % Baso % (Auto) (0-2) % Lymph # (Auto) (1.2-4.9) X10*3/uL [place] # (Auto) (0.1-1.2) X10*3/uL Eos # (Auto) (0.0-0.4) X10*3/uL Baso # (Auto) (0.0-0.2) X10*3/uL Abs Immat Gran (auto) (0.00-0.03) X10*3/uL Absolute Neuts (auto) (2.0-8.3) x10*3/uL Absolute Nucleated RBC (0.0-0.012) X10*3/uL Nucleated RBC % (auto) (0.0-0.2) /100WBC PT (9.9-13.0) SEC INR (0.9-1.1) Sodium (135-145) mmol/L Potassium (3.3-5.1) mmol/L Chloride (96-108) mmol/L Carbon Dioxide (22-29) mmol/L Anion Gap (12-20) BUN (9-16) mg/dL Creatinine (0.5-1.4) mg/dL Estim Creat Clear Calc Estimated GFR Random Glucose (60-115) mg/dL Lactic Acid 1.2 (0.5-2.0) mmol/L Calcium (8.4-10.2) mg/dL Magnesium (1.6-2.6) mg/dL Total Bilirubin (0.0-1.0) mg/dL Direct Bilirubin (0.0-0.5) mg/dL AST (5-37) U/L ALT (0-40) U/L Alkaline Phosphatase (39-117) U/L Ammonia (13-55) umol/L Total Creatine Kinase (38-174) U/L Troponin I High Sens (<3.5-35.0) ng/L Total Protein (6.5-8.0) g/dL Albumin (3.5-5.0) g/dL Lipase (8-78) U/L Salicylates (15-30) mg/dL Acetaminophen (<30) mcg/mL Ethyl Alcohol mg/dL <CLEMENCIA Cosby - Last Filed: 02/13/22 17:59> Lab Results 02/13/22 02/13/22 02/13/22 Range/Units 16:40 16:40 16:40 WBC 13.6 H (4.8-10.8) X10*3/uL RBC 3.44 L (4.60-5.80) X10*6/uL Hgb 10.4 L (14.0-18.0) g/dl Hct 30.2 L (42.0-52.0) % MCV 87.8 (80.0-98.0) fL MCH 30.2 (27.0-33.0) pg MCHC 34.4 (31.0-36.0) g/dl RDW 12.5 (11.0-16.0) % Plt Count 449 H (160-400) X10*3/uL MPV 8.8 L (9.4-12.4) fL Immature Gran % (Auto) 0.7 H (0.0-0.4) % Neut % (Auto) 82.1 H (45-73) % Lymph % (Auto) 9.0 L (20-40) % [place] % (Auto) 8.0 (2-11) % Eos % (Auto) 0.1 (0-4) % Baso % (Auto) 0.1 (0-2) % Lymph # (Auto) 1.2 (1.2-4.9) X10*3/uL [place] # (Auto) 1.1 (0.1-1.2) X10*3/uL Eos # (Auto) 0.0 (0.0-0.4) X10*3/uL Baso # (Auto) 0.0 (0.0-0.2) X10*3/uL Abs Immat Gran (auto) 0.10 H (0.00-0.03) X10*3/uL Absolute Neuts (auto) 11.1 H (2.0-8.3) x10*3/uL Absolute Nucleated RBC 0.000 (0.0-0.012) X10*3/uL Nucleated RBC % (auto) 0.0 (0.0-0.2) /100WBC PT (9.9-13.0) SEC INR (0.9-1.1) Sodium 129 L (135-145) mmol/L Potassium 3.9 D (3.3-5.1) mmol/L Chloride 93 L (96-108) mmol/L Carbon Dioxide 27 (22-29) mmol/L Anion Gap 13 (12-20) BUN 20 H D (9-16) mg/dL Creatinine 0.75 (0.5-1.4) mg/dL Estim Creat Clear Calc 84.8 Estimated GFR > 60 Random Glucose 211 H D (60-115) mg/dL Lactic Acid (0.5-2.0) mmol/L Calcium 9.2 (8.4-10.2) mg/dL Magnesium 1.5 L (1.6-2.6) mg/dL Total Bilirubin 0.7 (0.0-1.0) mg/dL Direct Bilirubin 0.4 (0.0-0.5) mg/dL AST 145 H (5-37) U/L ALT 69 H (0-40) U/L Alkaline Phosphatase 107 D (39-117) U/L Ammonia 21 (13-55) umol/L Total Creatine Kinase 2295 H D (38-174) U/L Troponin I High Sens (<3.5-35.0) ng/L Total Protein 6.6 (6.5-8.0) g/dL Albumin 3.3 L (3.5-5.0) g/dL Lipase 25 (8-78) U/L Salicylates < 5.0 L (15-30) mg/dL Acetaminophen 7 (<30) mcg/mL Ethyl Alcohol mg/dL 02/13/22 02/13/22 02/13/22 Range/Units 16:40 16:40 16:40 WBC (4.8-10.8) X10*3/uL RBC (4.60-5.80) X10*6/uL Hgb (14.0-18.0) g/dl Hct (42.0-52.0) % MCV (80.0-98.0) fL MCH (27.0-33.0) pg MCHC (31.0-36.0) g/dl RDW (11.0-16.0) % Plt Count (160-400) X10*3/uL MPV (9.4-12.4) fL Immature Gran % (Auto) (0.0-0.4) % Neut % (Auto) (45-73) % Lymph % (Auto) (20-40) % [place] % (Auto) (2-11) % Eos % (Auto) (0-4) % Baso % (Auto) (0-2) % Lymph # (Auto) (1.2-4.9) X10*3/uL [place] # (Auto) (0.1-1.2) X10*3/uL Eos # (Auto) (0.0-0.4) X10*3/uL Baso # (Auto) (0.0-0.2) X10*3/uL Abs Immat Gran (auto) (0.00-0.03) X10*3/uL Absolute Neuts (auto) (2.0-8.3) x10*3/uL Absolute Nucleated RBC (0.0-0.012) X10*3/uL Nucleated RBC % (auto) (0.0-0.2) /100WBC PT 14.9 H (9.9-13.0) SEC INR 1.3 H (0.9-1.1) Sodium (135-145) mmol/L Potassium (3.3-5.1) mmol/L Chloride (96-108) mmol/L Carbon Dioxide (22-29) mmol/L Anion Gap (12-20) BUN (9-16) mg/dL Creatinine (0.5-1.4) mg/dL Estim Creat Clear Calc Estimated GFR Random Glucose (60-115) mg/dL Lactic Acid (0.5-2.0) mmol/L Calcium (8.4-10.2) mg/dL Magnesium (1.6-2.6) mg/dL Total Bilirubin (0.0-1.0) mg/dL Direct Bilirubin (0.0-0.5) mg/dL AST (5-37) U/L ALT (0-40) U/L Alkaline Phosphatase (39-117) U/L Ammonia (13-55) umol/L Total Creatine Kinase (38-174) U/L Troponin I High Sens 11.1 D (<3.5-35.0) ng/L Total Protein (6.5-8.0) g/dL Albumin (3.5-5.0) g/dL Lipase (8-78) U/L Salicylates (15-30) mg/dL Acetaminophen (<30) mcg/mL Ethyl Alcohol < 10 mg/dL 02/13/22 Range/Units 17:59 WBC (4.8-10.8) X10*3/uL RBC (4.60-5.80) X10*6/uL Hgb (14.0-18.0) g/dl Hct (42.0-52.0) % MCV (80.0-98.0) fL MCH (27.0-33.0) pg MCHC (31.0-36.0) g/dl RDW (11.0-16.0) % Plt Count (160-400) X10*3/uL MPV (9.4-12.4) fL Immature Gran % (Auto) (0.0-0.4) % Neut % (Auto) (45-73) % Lymph % (Auto) (20-40) % [place] % (Auto) (2-11) % Eos % (Auto) (0-4) % Baso % (Auto) (0-2) % Lymph # (Auto) (1.2-4.9) X10*3/uL [place] # (Auto) (0.1-1.2) X10*3/uL Eos # (Auto) (0.0-0.4) X10*3/uL Baso # (Auto) (0.0-0.2) X10*3/uL Abs Immat Gran (auto) (0.00-0.03) X10*3/uL Absolute Neuts (auto) (2.0-8.3) x10*3/uL Absolute Nucleated RBC (0.0-0.012) X10*3/uL Nucleated RBC % (auto) (0.0-0.2) /100WBC PT (9.9-13.0) SEC INR (0.9-1.1) Sodium (135-145) mmol/L Potassium (3.3-5.1) mmol/L Chloride (96-108) mmol/L Carbon Dioxide (22-29) mmol/L Anion Gap (12-20) BUN (9-16) mg/dL Creatinine (0.5-1.4) mg/dL Estim Creat Clear Calc Estimated GFR Random Glucose (60-115) mg/dL Lactic Acid 1.2 (0.5-2.0) mmol/L Calcium (8.4-10.2) mg/dL Magnesium (1.6-2.6) mg/dL Total Bilirubin (0.0-1.0) mg/dL Direct Bilirubin (0.0-0.5) mg/dL AST (5-37) U/L ALT (0-40) U/L Alkaline Phosphatase (39-117) U/L Ammonia (13-55) umol/L Total Creatine Kinase (38-174) U/L Troponin I High Sens (<3.5-35.0) ng/L Total Protein (6.5-8.0) g/dL Albumin (3.5-5.0) g/dL Lipase (8-78) U/L Salicylates (15-30) mg/dL Acetaminophen (<30) mcg/mL Ethyl Alcohol mg/dL <Yolie Ovalle NP - Last Filed: 02/13/22 19:36> Critical Care Time Critical Care Time Critical Care Time: Yes <CLEMENCIA Cosby - Last Filed: 02/13/22 17:59> Total Critical Care Time: 30 <CLEMENCIA Cosby - Last Filed: 02/13/22 17:59> Attestation: I have personally provided critical care time exclusive of time spent on separately billable procedures. Time includes review of lab data, radiology results, discussion with consultants, and monitoring for potential decompensation. Intervention performed as documented. <CLEMENCIA Cosby - Last Filed: 02/13/22 17:59> Discharge Plan Discharge Clinical Impression: Rhabdomyolysis, Surgical site infection, Lethargy, Falls frequently <CLEMENCIA Cosby - Last Filed: 02/13/22 17:59> Patient Disposition: Admitted As Inpatient <CLEMENCIA Cosby - Last Filed: 02/13/22 17:59>
[2022-02-13 17:15] LABS: Troponin-I High Sensitivity 11.1 ng/L (<3.5-35.0)
[2022-02-13 17:16] LABS: Acetaminophen LAB 7 mcg/mL (<30); Alanine Aminotransferase 69 U/L (0-40); Albumin Level 3.3 g/dL (3.5-5.0); Alkaline Phosphatase 107 U/L (39-117); Anion Gap 13 (12-20); Aspartate Amino Transferase 145 U/L (5-37); Bilirubin Direct 0.4 mg/dL (0.0-0.5); Bilirubin Total 0.7 mg/dL (0.0-1.0); Blood Urea Nitrogen 20 mg/dL (9-16); Calcium 9.2 mg/dL (8.4-10.2); Carbon Dioxide 27 mmol/L (22-29); Chloride 93 mmol/L (96-108); Creatinine Clr Calc Pharmacy 84.8; Estimated Glomerular Filt Rate > 60; Glucose Random 211 mg/dL (60-115); Lipase 25 U/L (8-78); Magnesium 1.5 mg/dL (1.6-2.6); Potassium 3.9 mmol/L (3.3-5.1); Salicylate < 5.0 mg/dL (15-30); Sodium 129 mmol/L (135-145); Total Protein 6.6 g/dL (6.5-8.0)
[2022-02-13 18:20] LABS: Lactic Acid 1.2 mmol/L (0.5-2.0)
[2022-02-13] MEDS: 0.9 % Sodium Chloride 1,000 ML 999 ML IV ×2 (18:24)
--- NOTE | 2022-02-13 19:37 | PC.NURSE ---
patient ate tuna fish sandwich and had cranberry juice for dinner ,patient left food elevated with pillow .
[2022-02-13] MEDS: Magnesium Sulfate/H2O 2 GM/50 ML PIGGYBACK IV (19:50)
[2022-02-13 19:55] LABS: COVID-19 Test Negative (Negative)
[2022-02-13 21:07] LABS: Appearance Urine CLEAR; Color Urine YELLOW; Glucose Urine UA 100 MG/DL (NEG); Leukocyte Esterase Urine NEG (NEG); Nitrite Urine NEG (NEG); PH 6.5 (5.0-8.0); UACC Culture Trigger NO; Urine Blood TRACE (NEG); Urine Ketones NEG (NEG); Urine Protein TRACE MG/DL (NEG-TRACE)
[2022-02-13 21:09] LABS: Squamous Epithelial Cell Urine TRACE /LPF
--- NOTE | 2022-02-13 21:20 | PM.IMHP ---
History of Present Illness Date of Service: 02/13/22 Chief Complaint: falls, increased confusion this is a 71-year-old male with an extensive past medical history that includes asthma, HTN, HLD, diabetes, opioid use disorder, and history of frequent falls who was recently Seen in the hospital after having ankle fracture and underwent ORIF of the left ankle on 02/03. He signed out AMA on 02/04. patient returns today after family noticed patient to have increased confusion, increased falls, he has a splint on the left ankle. He reports that he has significant pain in the left ankle, he otherwise denies any headache, no change in vision, he feels feverish, chills, no chest pain, no abdominal pain nausea or vomiting, no diarrhea constipation, trouble peeing, And no other urinary symptoms. On arrival and removal of the splint on his left lower extremity, patient was found to have significant infection around the surgical site. On arrival to the ED patient hemodynamically stable with no significant abnormal vitals Labs are significant for WBC count of 13.6, hemoglobin of 10.4, sodium of 129, BUN of 20, AST of 145, ALT of 69, CPK of 2295, UA negative, UDS positive for opioids, fentanyl, Venous duplex negative, imaging including abdominal, pelvis, chest, head and cervical spine CT have all been negative, Ankle x-ray shows status post or of the medial malleolar and distal fibular fractures with intact fixation and unchanged alignment. Orthopedic was consulted and patient will be admitted for further management Review of Systems Review of Systems: Yes all other systems are reviewed and are negative [facility] Medical History Anxiety CAD (coronary artery disease) COPD (chronic obstructive pulmonary disease) Genital herpes JAUN (obstructive sleep apnea) Pancreatic abnormality Family History Mother No problems noted. Father Liver cancer Surgical History No history of previous surgery Social History Household Members: None Housing: Apartment Do you presently have visiting nurse or other home services: No Alcohol intake: never Patient Tobacco Use Status: Current everyday Tobacco user Tobacco use type: Cigarette Cigarettes Per Day: 3 Smoked in Last 30 Days: Yes e-Cigarette/Vaping Use: Currently Using Patient Interested in Nicotine Replacement: No Patient Given Instructions on How to Stop Smoking: No Second Hand Smoke Exposure: No Use of substances other than those prescribed or required for medical reasons: Unknown Substance Use Type: Heroin Currently Displaying Signs/Symptoms of Drug Intoxication Withdrawal: No Any prior treatment program specific to substance use: No Have you been hit, kicked, punched, or otherwise hurt by someone within the past year? If so, by whom?: No Do you feel safe in your current relationship?: No Current Relationship Is there a partner from a previous relationship who is making you feel unsafe now?: No Advance Directives: Yes Advance Directives Information Provided: No Advance Directives on File: Yes Advance Directives Date on File: 01/28/22 Do you have thoughts of harming others: None Do you have a plan to hurt others: No Plan Recently lost weight without trying: No Eating poorly because of decreased appetite: No Nutrition Risks: No Nutritional Risk Poor oral hygiene: No service: No Current occupational status: retired and disabled Current occupation: right handed [employer] Allergies Allergy/AdvReac Type Severity Reaction Status Date / Time No Known Allergies Allergy Verified 01/27/22 11:10 Active Medications: Current Medications Acetaminophen (Acetaminophen 325 Mg Tablet) 650 mg PO Q6H PRN PRN Reason: Pain, Mild (Pain Scale 1-3) Dextrose (Dextrose 50 % 25 Gm/50 Ml Syringe) 25 gm IVPUSH Q15M PRN; Protocol PRN Reason: per Hypoglycemia Standing Ord. Docusate Sodium (Docusate Sodium 100 Mg Capsule) 100 mg PO DAILY PRN PRN Reason: Constipation Glucose (Glucose Gel 15 Gm Gel..Gram.) 15 gm PO Q15M PRN; Protocol PRN Reason: per Hypoglycemia Standing Ord. Hydromorphone HCl (Hydromorphone Hcl 0.5 Mg/0.5 Ml Syringe) 0.5 mg IVPUSH Q4H PRN; Protocol PRN Reason: Pain, Severe (Pain Scale 7-10) Piperacillin Sod/Tazobactam (Sod 3.375 gm/ Sodium Chloride) 50 mls @ 100 mls/hr IV Q6H SAM Vancomycin HCl 1,250 mg/ (Sodium Chloride) 250 mls @ 166.667 mls/hr IV Q12H [facility] Lactated Ringer's (Lr) 1,000 mls @ 100 mls/hr IVCONT .Q10H [facility] Insulin Human Lispro (Insulin Lispro 100 Unit/Ml 3 Ml Vial) 0 unit SUBCUT QIDACHS [facility]; Protocol Ondansetron HCl (Ondansetron Hcl 4 Mg/2 Ml Vial) 4 mg IVPUSH Q8H PRN PRN Reason: Nausea and Vomiting Pharmacy Consult (Consult Rx Perform Med Rec) 1 each MISCELLANE ONCE PRN PRN Reason: Consult order Pharmacy Consult (Consult Rx Vancomycin Dosing) 1 each MISCELLANE DAILY PRN PRN Reason: Consult order Sodium Chloride (0.9 % Sodium Chloride Flush 3 Ml Syringe) 3 ml IVFLUSH QSHIFT [facility] Home Medications Medication Instructions Recorded Confirmed Last Taken Type aspirin 81 mg tablet,delayed 81 mg PO DAILY 06/06/20 02/13/22 03/26/21 History release lisinopril 40 mg tablet 40 mg PO DAILY 06/06/20 02/13/22 03/26/21 History metoprolol succinate 25 mg 25 mg PO DAILY 06/06/20 02/13/22 03/26/21 History tablet,extended release 24 hr sennosides 8.6 mg capsule (senna) 8.6 mg PO BEDTIME PRN Constipation 06/06/20 02/13/22 Unknown History buprenorphine 8 mg-naloxone 2 mg 1 film sublingual BID 12/06/20 02/13/22 03/26/21 History sublingual film amlodipine 10 mg tablet 10 mg PO BEDTIME 03/26/21 02/13/22 03/25/21 History atorvastatin 40 mg tablet 40 mg PO BEDTIME 03/26/21 02/13/22 03/25/21 History dorzolamide 22.3 mg-timolol 6.8 1 drp ophthalmic (eye) BID 03/26/21 02/13/22 03/26/21 History mg/mL eye drops fluticasone propionate 110 1 puff PO BID PRN Wheezing 03/26/21 02/13/22 Unknown History mcg/actuation HFA aerosol inhaler (Flovent HFA) glipizide 5 mg tablet, extended 5 mg PO DAILY 03/26/21 02/13/22 03/26/21 History release 24 hr insulin detemir U-100 100 unit/mL 80 unit subcut BEDTIME 03/26/21 02/13/22 03/25/21 History subcutaneous solution (Levemir U-100 Insulin) latanoprost 0.005 % eye drops 1 drp ophthalmic (eye) BEDTIME 03/26/21 02/13/22 03/25/21 History metformin 1,000 mg tablet 1,000 mg PO BID 03/26/21 02/13/22 03/26/21 History multivitamin-ferrous 1 tab PO DAILY 03/26/21 02/13/22 03/26/21 History fumarate-folic acid 18 mg-400 mcg tablet (Certavite-Antioxidant) olanzapine 5 mg tablet (Zyprexa) 5 mg PO BEDTIME 03/26/21 02/13/22 03/25/21 History omega-3 fatty acids-fish oil 340 1 cap PO TID 03/26/21 02/13/22 03/26/21 History mg-1,000 mg capsule (Fish Oil) peg [id number] 1 1 drp ophthalmic (eye) QID 03/26/21 02/13/22 03/26/21 History %-0.2 %-0.2 % eye drops (Dry Eye Relief) trazodone 100 mg tablet 100 mg PO BEDTIME PRN Insomnia 03/26/21 02/13/22 03/25/21 History trazodone 150 mg tablet 300 tab PO BEDTIME 03/26/21 02/13/22 03/25/21 History clotrimazole 1 % topical cream 1 appl topical BID 09/11/21 02/13/22 Unknown History loratadine 10 mg tablet 10 mg PO QAM 09/11/21 02/13/22 Unknown History naproxen 500 mg tablet 1 tab PO BID PRN pain 01/27/22 02/13/22 Unknown History Physical Exam Vital Signs and Narrative: Vital Signs: Last Vital Signs Temp 99.0 F 02/13/22 19:10 Pulse 81 02/13/22 19:10 Resp 16 02/13/22 19:10 BP 162/82 H 02/13/22 19:10 Pulse Ox 98 02/13/22 19:10 O2 Del Method 02/13/22 19:10 BMI result Body Mass Index 27.3 Const: General: cooperative and no acute distress Orientation/consciousness: patient oriented x3 Eyes: General: appearance normal, both eyes and all related structures Pupils: Equal, round and reactive pupils present Resp: Effort & Inspection: normal respiratory effort Auscultation: clear to auscultation bilaterally Cardio: Rate: regular rate Rhythm: regular rhythm GI: Palpation (GI): Soft to palpation Auscultation: normal bowel sounds Skin: General skin exam: no rashes or lesions noted Neuro: General: patient oriented x3 Cranial nerves: Yes Equal, round and reactive pupils present Cognition (Neuro): normal cognition Extrem: Other: left lateral malleolar scar erythema, tenderness, blisters, purulent discharge General: Yes normal to inspection and Yes no pedal edema Results Labs CBC and Chem 7: 02/13/22 16:40 02/13/22 16:40 Labs: Laboratory Results - last 24 hr 02/13/22 02/13/22 02/13/22 16:40 16:40 16:40 MCV 87.8 MCH 30.2 MCHC 34.4 RDW 12.5 Plt Count 449 H MPV 8.8 L Immature Gran % (Auto) 0.7 H Neut % (Auto) 82.1 H Lymph % (Auto) 9.0 L [place] % (Auto) 8.0 Eos % (Auto) 0.1 Baso % (Auto) 0.1 Lymph # (Auto) 1.2 [place] # (Auto) 1.1 Eos # (Auto) 0.0 Baso # (Auto) 0.0 Abs Immat Gran (auto) 0.10 H Absolute Neuts (auto) 11.1 H Absolute Nucleated RBC 0.000 Nucleated RBC % (auto) 0.0 PT INR Anion Gap 13 Estim Creat Clear Calc 84.8 Estimated GFR > 60 Random Glucose 211 H D Lactic Acid Calcium 9.2 Magnesium 1.5 L Total Bilirubin 0.7 Direct Bilirubin 0.4 AST 145 H ALT 69 H Alkaline Phosphatase 107 D Ammonia 21 Total Creatine Kinase 2295 H D Troponin I High Sens Total Protein 6.6 Albumin 3.3 L Lipase 25 Urine Color Urine Appearance Urine pH Ur Specific [place] Urine Protein Urine Glucose (UA) Urine Ketones Urine Blood Urine Nitrite Ur Leukocyte Esterase Urine RBC Urine WBC Ur Squamous Epith Cells Urine Bacteria Salicylates < 5.0 L Acetaminophen 7 Ethyl Alcohol COVID-19 (THANG) COVID-19 Clin Com 02/13/22 02/13/2222 16:40 16:40 16:40 MCV MCH MCHC RDW Plt Count MPV Immature Gran % (Auto) Neut % (Auto) Lymph % (Auto) [place] % (Auto) Eos % (Auto) Baso % (Auto) Lymph # (Auto) [place] # (Auto) Eos # (Auto) Baso # (Auto) Abs Immat Gran (auto) Absolute Neuts (auto) Absolute Nucleated RBC Nucleated RBC % (auto) PT 14.9 H INR 1.3 H Anion Gap Estim Creat Clear Calc Estimated GFR Random Glucose Lactic Acid Calcium Magnesium Total Bilirubin Direct Bilirubin AST ALT Alkaline Phosphatase Ammonia Total Creatine Kinase Troponin I High Sens 11.1 D Total Protein Albumin Lipase Urine Color Urine Appearance Urine pH Ur Specific [place] Urine Protein Urine Glucose (UA) Urine Ketones Urine Blood Urine Nitrite Ur Leukocyte Esterase Urine RBC Urine WBC Ur Squamous Epith Cells Urine Bacteria Salicylates Acetaminophen Ethyl Alcohol < 10 COVID-19 ([facility]ANG) COVID-bSafe 02/13/22 02/13/22 02/13/22 16:40 17:59 20:57 MCV MCH MCHC RDW Plt Count MPV Immature Gran % (Auto) Neut % (Auto) Lymph % (Auto) [place] % (Auto) Eos % (Auto) Baso % (Auto) Lymph # (Auto) [place] # (Auto) Eos # (Auto) Baso # (Auto) Abs Immat Gran (auto) Absolute Neuts (auto) Absolute Nucleated RBC Nucleated RBC % (auto) PT INR Anion Gap Estim Creat Clear Calc Estimated GFR Random Glucose Lactic Acid 1.2 Calcium Magnesium Total Bilirubin Direct Bilirubin AST ALT Alkaline Phosphatase Ammonia Total Creatine Kinase Troponin I High Sens Total Protein Albumin Lipase Urine Color YELLOW Urine Appearance CLEAR Urine pH 6.5 Ur Specific [place] 1.010 Urine Protein TRACE Urine Glucose (UA) 100 H Urine Ketones NEG Urine Blood TRACE Urine Nitrite NEG Ur Leukocyte Esterase NEG Urine RBC 1-4 Urine WBC 1-4 Ur Squamous Epith Cells TRACE Urine Bacteria NONE Salicylates Acetaminophen Ethyl Alcohol COVID-19 ([facility]ANG) Negative COVID-19 Cono-C Com See Note Imaging Radiologist's Impressions: Impressions Ankle X-Ray 02/13/22 16:17 IMPRESSION: 1. Status post ORIF of the medial malleolar and distal fibular fractures with intact fixation and unchanged alignment. No new fracture. Cervical Spine CT 02/13/22 16:39 IMPRESSION: 1. No acute intracranial pathology. 2. No CT evidence of acute cervical spine fracture or traumatic subluxation Head CT 02/13/22 16:39 IMPRESSION: 1. No acute intracranial pathology. 2. No CT evidence of acute cervical spine fracture or traumatic subluxation Abdomen/Pelvis CT 02/13/22 17:22 IMPRESSION: 1. No acute fractures identified. 2. No acute injury identified in the chest, abdomen, or pelvis. 3. Unchanged chronic ancillary findings, as described. Chest CT 02/13/22 17:22 IMPRESSION: 1. No acute fractures identified. 2. No acute injury identified in the chest, abdomen, or pelvis. 3. Unchanged chronic ancillary findings, as described. Venous Duplex 02/13/22 18:19 IMPRESSION: No DVT demonstrated in the left lower extremity. Assessment and Plan (1) Rhabdomyolysis: Status: Acute (2) Surgical site infection: Status: Acute (3) Falls frequently: Status: Acute Plan 71-year-old male with extensive past medical history as mentioned above who presents to the hospital due to increased confusion as well as falls found to have infection at this site or recent surgical intervention of a malleolar fracture that was done on February 03 # surgical site infection - will start with broad-spectrum antibiotics - follow cultures - orthopedic surgical team consulted # rhabdomyolysis - reports frequent fall - will start on IV fluids - follow CPK # frequent falls - has had multiple admissions in the past for the same - head CT neg - consider PT prior to discharge # history of opioid use disorder - continue methadone # hypertension - elevated - resume home meds # HLD - continue statin # diabetes - continue home insulin, hold oral antihyperglycemics - start low-dose sliding scale insulin - diabetic diet DVT prophylaxis: SCDs were possible intervention by surgery given the patient's surgical site infection and need for IV antibiotics as well as rhabdo need for IV fluids, patient will require minimum 2 night hospital stay for further management Quality Stroke Does the patient have a stroke diagnosis?: No VTE Prior VTE?: No VTE Risk Level:: Medical - moderate - high VTE Device Contraindication: Treatment Not Tolerated VTE Drug Contraindication: Treatment Not Indicated
[2022-02-13 21:22] LABS: Amphetamine Screen Urine Not Detected (Not Detect); Barbiturates, Urine Not Detected (Not Detect); Benzodiazepines Screen Urine Not Detected (Not Detect); Cannabinoid Screen Urine Not Detected (Not Detect); Cocaine Screen Urine Not Detected (Not Detect); Fentanyl, urine POSITIVE (Not Detect); Opiate Screen Urine POSITIVE (Not Detect); Phencyclidine Screen Urine Not Detected (Not Detect)
[2022-02-13] MEDS: Piperacillin Sodium/Tazobactam 3.375 GM in 0.9 % Sodium Chloride 50 ML IV (22:24)
[2022-02-13] MEDS: Lactated Ringers 1,000 ML 100 ML IVCONT (22:24)
--- NOTE | 2022-02-13 22:42 | PC.NURSE ---
Report given to MARSHALL Mojica-patient to be transferred to room 369.
[2022-02-13] MEDS: HYDROmorphone HCl 0.5 MG/0.5 ML SYRINGE IVPUSH (23:44)
[2022-02-13] MEDS: vancomycin HCL 1,000 MG, vancomycin HCL 750 MG in 0.9 % Sodium Chloride 500 ML 267.5 MG IV (23:45)
[2022-02-13] MEDS: 0.9 % Sodium Chloride Flush 3 ML SYRINGE IVFLUSH (23:45)
[2022-02-14] VITALS (9 sets, daily range): BP systolic 152–173; BP diastolic 65–89; PULSE 70–85; RESP 16–20; TEMP 36.2–37.6; O2SAT 93–98
[2022-02-14] MEDS: Piperacillin Sodium/Tazobactam 3.375 GM in 0.9 % Sodium Chloride 50 ML IV ×4 (03:15→20:58)
[2022-02-14] MEDS: HYDROmorphone HCl 0.5 MG/0.5 ML SYRINGE IVPUSH ×4 (03:50→20:06)
[2022-02-14] MEDS: 0.9 % Sodium Chloride 1,000 ML 100 ML IVCONT ×2 (06:00→15:03)
[2022-02-14 06:42] LABS: MANUAL DIFF FLAG NO
[2022-02-14 06:50] LABS: Basophils Percent Auto 0.2 % (0-2); Eosinophils Percent Auto 0.1 % (0-4); Hematocrit 27.4 % (42.0-52.0); Hemoglobin 9.2 g/dl (14.0-18.0); Imm Gran Abs Auto 0.09 X10*3/uL (0.00-0.03); Imm Gran Pct Auto 0.8 % (0.0-0.4); Lymphocytes Absolute Auto 1.5 X10*3/uL (1.2-4.9); Lymphocytes Percent Auto 12.2 % (20-40); Mean Corpuscular HGB Conc 33.6 g/dl (31.0-36.0); Mean Corpuscular Hemoglobin 29.5 pg (27.0-33.0); Mean Corpuscular Volume 87.8 fL (80.0-98.0); Mean Platelet Volume 9.3 fL (9.4-12.4); Monocytes Absolute Auto 1.1 X10*3/uL (0.1-1.2); Monocytes Percent Auto 9.6 % (2-11); Neutrophils Absolute Auto 9.2 x10*3/uL (2.0-8.3); Neutrophils Percent Auto 77.1 % (45-73); Platelet Count 436 X10*3/uL (160-400); Red Blood Count 3.12 X10*6/uL (4.60-5.80); Red Cell Distribution Width 12.4 % (11.0-16.0); White Blood Count 11.9 X10*3/uL (4.8-10.8)
[2022-02-14 07:17] LABS: Anion Gap 12 (12-20); Blood Urea Nitrogen 10 mg/dL (9-16); Calcium 8.2 mg/dL (8.4-10.2); Carbon Dioxide 26 mmol/L (22-29); Chloride 97 mmol/L (96-108); Creatinine Clr Calc Pharmacy 103.2; Estimated Glomerular Filt Rate > 60; Glucose Random 255 mg/dL (60-115); Potassium 3.3 mmol/L (3.3-5.1); Sodium 132 mmol/L (135-145)
[2022-02-14 07:49] LABS: Glucose, Whole Blood 220 mg/dL (60-115)
[2022-02-14] MEDS: Buprenorphine/Naloxone 8/2 mg FILM 1 FILM SUBLINGUAL ×2 (08:13→19:44)
[2022-02-14] MEDS: Ferrous Sulfate 300 MG/5 ML LIQUID 150 MG PO (08:13)
[2022-02-14] MEDS: Insulin Lispro 100 UNIT/ML 3 ML VIAL SUBCUT ×4 (08:13→19:45)
[2022-02-14] MEDS: lisinopriL 40 MG TABLET PO (08:14)
[2022-02-14] MEDS: Multivitamin TABLET 1 TAB PO (08:14)
[2022-02-14] MEDS: Loratadine 10 MG TABLET PO (08:14)
[2022-02-14] MEDS: Metoprolol Succinate ER 25 MG TAB.ER.24H PO (08:14)
[2022-02-14] MEDS: metFORMIN HCl 1,000 MG TABLET 1000 MG PO ×2 (08:14→19:44)
[2022-02-14] MEDS: Aspirin Enteric Coated 81 MG TABLET.DR PO (08:14)
[2022-02-14] MEDS: Acetaminophen 325 MG TABLET 650 MG PO ×2 (08:15→19:44)
--- NOTE | 2022-02-14 10:54 | P.PNIM_ITS ---
Subjective Subjective Date of Service: 02/14/22 Interval History: the patient was seen and evaluated this morning Laying in bed, feels tired and weak Denies any fever, chills or shortness of breath No reported other overnight events. Systemic review: No fever, chills or weakness No chest pain, palpitation No shortness of breath or coughing No abdominal pain, nausea or vomiting No urinary symptoms Swelling, erythema and tenderness in the ankle Physical Exam Vital Signs: Vital Signs: Last Vital Signs Temp 98.6 F 02/14/22 09:12 Pulse 85 02/14/22 08:00 Resp 18 02/14/22 08:12 BP 173/82 H 02/14/22 08:00 Pulse Ox 96 02/14/22 08:00 O2 Del Method 02/14/22 08:00 BMI result Body Mass Index 29.7 Const: Other: Constitutional : Alert, oriented, not in distress Neck : Normal inspection, Supple Cardiovascular : RRR, no JVP, no lower extremity edema Respiratory : fair bilateral air entry, no crackles, wheezes or rhonchi Gastrointestinal: soft, lax, Normal bowel sounds, Non tender Skin : Warm, Dry, Swelling, erythema and tenderness in the lt ankle Neurological : Alert & oriented x3, No focal deficit , CN 2-12 within normal Objective Data Active Medications Acetaminophen (Acetaminophen 325 Mg Tablet) 650 mg PO Q6H PRN PRN Reason: Pain, Mild (Pain Scale 1-3) Last Admin: 02/14/22 08:15 Dose: 650 mg Documented By: COTEMA Amlodipine Besylate (Amlodipine Besylate 10 Mg Tablet) 10 mg PO BEDTIME [facility]; Protocol Artificial Tears (Artificial Tears 15 Ml Drops) 1 drop EYE-BOTH QID [facility] Last Admin: 02/14/22 08:12 Dose: Not Given Documented By: COTEMA Non-Admin Reason: Med Not Available Aspirin (Aspirin Enteric Coated 81 Mg Tablet.) 81 mg PO DAILY [facility] Last Admin: 02/14/22 08:14 Dose: 81 mg Documented By: COTEMA Atorvastatin Calcium (Atorvastatin Calcium 40 Mg Tablet) 40 mg PO BEDTIME [facility] Buprenorphine/Naloxone (Buprenorphine/Naloxone 8/2 Mg Film) 1 film SUBLINGUAL BID [facility] Last Admin: 02/14/22 08:13 Dose: 1 film Documented By: COTEMA Dextrose (Dextrose 50 % 25 Gm/50 Ml Syringe) 25 gm IVPUSH Q15M PRN; Protocol PRN Reason: per Hypoglycemia Standing Ord. Docusate Sodium (Docusate Sodium 100 Mg Capsule) 100 mg PO DAILY PRN PRN Reason: Constipation Dorzolamide/Timolol (Dorzolamide/Timolo 2.23%/0.68% 10 Ml Drbtl) 1 drop EYE- BOTH BID [facility] Last Admin: 02/14/22 08:12 Dose: Not Given Documented By: CHASIDY Non-Admin Reason: Med Not Available Ferrous Sulfate (Ferrous Sulfate 300 Mg/5 Ml Liquid) 150 mg PO DAILY [facility] Last Admin: 02/14/22 08:13 Dose: 150 mg Documented By: CHASIDY Fluticasone Propionate (Fluticasone Propionate 100 Mcg Blst.W.Dev) 1 puff INHALE BID PRN PRN Reason: Wheezing Glucose (Glucose Gel 15 Gm Gel..Gram.) 15 gm PO Q15M PRN; Protocol PRN Reason: per Hypoglycemia Standing Ord. Hydromorphone HCl (Hydromorphone Hcl 0.5 Mg/0.5 Ml Syringe) 0.5 mg IVPUSH Q4H PRN; Protocol PRN Reason: Pain, Severe (Pain Scale 7-10) Last Admin: 02/14/22 08:12 Dose: 0.5 mg Documented By: CHASIDY Piperacillin Sod/Tazobactam (Sod 3.375 gm/ Sodium Chloride) 50 mls @ 100 mls/hr IV Q6H [facility] Last Infusion: 02/14/22 08:56 Dose: 0 mls/hr Documented By: CHASIDY Vancomycin HCl 1,500 mg/ (Sodium Chloride) 500 mls @ 333.333 mls/hr IV Q24H [facility] Sodium Chloride (Ns) 1,000 mls @ 100 mls/hr IVCONT .Q10H [facility] Last Admin: 02/14/22 06:00 Dose: 100 mls/hr Documented By: JUICE Insulin Glargine (Insulin Glargine,Hum.Rec.Anlog 100 Unit/Ml 10 Ml Vial) 56 unit SUBCUT BEDTIME [facility] Insulin Human Lispro (Insulin Lispro 100 Unit/Ml 3 Ml Vial) 0 unit SUBCUT QIDACHS [facility]; Protocol Last Admin: 02/14/22 08:13 Dose: 4 unit Documented By: CHASIDY Latanoprost (Latanoprost 0.005 % Ophth Yari 2.5 Ml Drops) 1 drop EYE-BOTH BEDTIME [facility] Lisinopril (Lisinopril 40 Mg Tablet) 40 mg PO DAILY [facility]; Protocol Last Admin: 02/14/22 08:14 Dose: 40 mg Documented By: CHASIDY Loratadine (Loratadine 10 Mg Tablet) 10 mg PO DAILY [facility] Last Admin: 02/14/22 08:14 Dose: 10 mg Documented By: CHASIDY Metformin HCl (Metformin Hcl 1,000 Mg Tablet) 1,000 mg PO BID [facility] Last Admin: 02/14/22 08:14 Dose: 1,000 mg Documented By: CHASIDY Metoprolol Succinate (Metoprolol Succinate Er 25 Mg Tab.Er.24h) 25 mg PO DAILY [facility]; Protocol Last Admin: 02/14/22 08:14 Dose: 25 mg Documented By: CHASIDY Multivitamins/Vitamin C (Multivitamin Tablet) 1 tab PO DAILY [facility] Last Admin: 02/14/22 08:14 Dose: 1 tab Documented By: CHASIDY Olanzapine (Olanzapine 5 Mg Tablet) 5 mg PO BEDTIME [facility] Omeprazole (Omeprazole 20 Mg Capsule.Dr) 20 mg PO DAILY@0630 [facility] Last Admin: 02/14/22 06:13 Dose: Not Given Documented By: JUICE Non-Admin Reason: NPO Ondansetron HCl (Ondansetron Hcl 4 Mg/2 Ml Vial) 4 mg IVPUSH Q8H PRN PRN Reason: Nausea and Vomiting Oxybutynin Chloride (Oxybutynin Chloride Er 5 Mg Tab.Er.24) 5 mg PO DAILY [facility] Last Admin: 02/14/22 08:14 Dose: 5 mg Documented By: CHASIDY Pharmacy Consult (Consult Rx Perform Med Rec) 1 each MISCELLANE ONCE PRN PRN Reason: Consult order Pharmacy Consult (Consult Rx Vancomycin Dosing) 1 each MISCELLANE DAILY PRN PRN Reason: Consult order Sodium Chloride (0.9 % Sodium Chloride Flush 3 Ml Syringe) 3 ml IVFLUSH QSHIFT [facility] Last Admin: 02/14/22 07:07 Dose: Not Given Documented By: CHASIDY Non-Admin Reason: IV Running Tamsulosin HCl (Tamsulosin Hcl 0.4 Mg Capsule) 0.4 mg PO BEDTIME [facility] Trazodone HCl (Trazodone Hcl 100 Mg Tablet) 100 mg PO BEDTIME PRN PRN Reason: Insomnia Trazodone HCl (Trazodone Hcl 100 Mg Tablet) 300 mg PO BEDTIME [facility] Labs CBC & Chem 7: 02/14/22 05:59 02/14/22 05:59 Labs: Laboratory Results - last 24 hr 02/13/22 02/13/22 02/13/22 16:40 16:40 16:40 MCV 87.8 MCH 30.2 MCHC 34.4 RDW 12.5 Plt Count 449 H MPV 8.8 L Immature Gran % (Auto) 0.7 H Neut % (Auto) 82.1 H Lymph % (Auto) 9.0 L [place] % (Auto) 8.0 Eos % (Auto) 0.1 Baso % (Auto) 0.1 Lymph # (Auto) 1.2 [place] # (Auto) 1.1 Eos # (Auto) 0.0 Baso # (Auto) 0.0 Abs Immat Gran (auto) 0.10 H Absolute Neuts (auto) 11.1 H Absolute Nucleated RBC 0.000 Nucleated RBC % (auto) 0.0 PT INR Anion Gap 13 Estim Creat Clear Calc 84.8 Estimated GFR > 60 POC Glucose Random Glucose 211 H D Lactic Acid Calcium 9.2 Magnesium 1.5 L Total Bilirubin 0.7 Direct Bilirubin 0.4 AST 145 H ALT 69 H Alkaline Phosphatase 107 D Ammonia 21 Total Creatine Kinase 2295 H D Troponin I High Sens Total Protein 6.6 Albumin 3.3 L Lipase 25 Urine Color Urine Appearance Urine pH Ur Specific [place] Urine Protein Urine Glucose (UA) Urine Ketones Urine Blood Urine Nitrite Ur Leukocyte Esterase Urine RBC Urine WBC Ur Squamous Epith Cells Urine Bacteria Salicylates < 5.0 L Urine Opiates Screen Urine Fentanyl Screen Acetaminophen 7 Ur Barbiturates Screen Ur Phencyclidine Scrn Ur Amphetamines Screen U Benzodiazepines Scrn Urine Cocaine Screen U Marijuana (THC) Screen Ethyl Alcohol COVID-19 (THANG) COVID-19 Clin Com 02/13/22 02/13/22 02/13/22 16:40 16:40 16:40 MCV MCH MCHC RDW Plt Count MPV Immature Gran % (Auto) Neut % (Auto) Lymph % (Auto) [place] % (Auto) Eos % (Auto) Baso % (Auto) Lymph # (Auto) [place] # (Auto) Eos # (Auto) Baso # (Auto) Abs Immat Gran (auto) Absolute Neuts (auto) Absolute Nucleated RBC Nucleated RBC % (auto) PT 14.9 H INR 1.3 H Anion Gap Estim Creat Clear Calc Estimated GFR POC Glucose Random Glucose Lactic Acid Calcium Magnesium Total Bilirubin Direct Bilirubin AST ALT Alkaline Phosphatase Ammonia Total Creatine Kinase Troponin I High Sens 11.1 D Total Protein Albumin Lipase Urine Color Urine Appearance Urine pH Ur Specific [place] Urine Protein Urine Glucose (UA) Urine Ketones Urine Blood Urine Nitrite Ur Leukocyte Esterase Urine RBC Urine WBC Ur Squamous Epith Cells Urine Bacteria Salicylates Urine Opiates Screen Urine Fentanyl Screen Acetaminophen Ur Barbiturates Screen Ur Phencyclidine Scrn Ur Amphetamines Screen U Benzodiazepines Scrn Urine Cocaine Screen U Marijuana (THC) Screen Ethyl Alcohol < 10 COVID-19 (THANG) COVID-19 [employer] 02/13/22 02/13/22 02/13/22 16:40 17:59 20:57 MCV MCH MCHC RDW Plt Count MPV Immature Gran % (Auto) Neut % (Auto) Lymph % (Auto) [place] % (Auto) Eos % (Auto) Baso % (Auto) Lymph # (Auto) [place] # (Auto) Eos # (Auto) Baso # (Auto) Abs Immat Gran (auto) Absolute Neuts (auto) Absolute Nucleated RBC Nucleated RBC % (auto) PT INR Anion Gap Estim Creat Clear Calc Estimated GFR POC Glucose Random Glucose Lactic Acid 1.2 Calcium Magnesium Total Bilirubin Direct Bilirubin AST ALT Alkaline Phosphatase Ammonia Total Creatine Kinase Troponin I High Sens Total Protein Albumin Lipase Urine Color YELLOW Urine Appearance CLEAR Urine pH 6.5 Ur Specific [place] 1.010 Urine Protein TRACE Urine Glucose (UA) 100 H Urine Ketones NEG Urine Blood TRACE Urine Nitrite NEG Ur Leukocyte Esterase NEG Urine RBC 1-4 Urine WBC 1-4 Ur Squamous Epith Cells TRACE Urine Bacteria NONE Salicylates Urine Opiates Screen Urine Fentanyl Screen Acetaminophen Ur Barbiturates Screen Ur Phencyclidine Scrn Ur Amphetamines Screen U Benzodiazepines Scrn Urine Cocaine Screen U Marijuana (THC) Screen Ethyl Alcohol COVID-19 (THANG) Negative COVID-19 Clin Com See Note 02/13/22 02/14/22 02/14/22 20:57 05:59 05:59 MCV 87.8 MCH 29.5 MCHC 33.6 RDW 12.4 Plt Count 436 H MPV 9.3 L Immature Gran % (Auto) 0.8 H Neut % (Auto) 77.1 H Lymph % (Auto) 12.2 L [place] % (Auto) 9.6 Eos % (Auto) 0.1 Baso % (Auto) 0.2 Lymph # (Auto) 1.5 [place] # (Auto) 1.1 Eos # (Auto) 0.0 Baso # (Auto) 0.0 Abs Immat Gran (auto) 0.09 H Absolute Neuts (auto) 9.2 H Absolute Nucleated RBC 0.000 Nucleated RBC % (auto) 0.0 PT INR Anion Gap 12 Estim Creat Clear Calc 103.2 Estimated GFR > 60 POC Glucose Random Glucose 255 H Lactic Acid Calcium 8.2 L D Magnesium Total Bilirubin Direct Bilirubin AST ALT Alkaline Phosphatase Ammonia Total Creatine Kinase 1248 H D Troponin I High Sens Total Protein Albumin Lipase Urine Color Urine Appearance Urine pH Ur Specific [place] Urine Protein Urine Glucose (UA) Urine Ketones Urine Blood Urine Nitrite Ur Leukocyte Esterase Urine RBC Urine WBC Ur Squamous Epith Cells Urine Bacteria Salicylates Urine Opiates Screen POSITIVE H Urine Fentanyl Screen POSITIVE H Acetaminophen Ur Barbiturates Screen Not Detected Ur Phencyclidine Scrn Not Detected Ur Amphetamines Screen Not Detected U Benzodiazepines Scrn Not Detected Urine Cocaine Screen Not Detected U Marijuana (THC) Screen Not Detected Ethyl Alcohol COVID-19 (THANG) COVID-19 Clin Com 02/14/22 07:34 MCV MCH MCHC RDW Plt Count MPV Immature Gran % (Auto) Neut % (Auto) Lymph % (Auto) [place] % (Auto) Eos % (Auto) Baso % (Auto) Lymph # (Auto) [place] # (Auto) Eos # (Auto) Baso # (Auto) Abs Immat Gran (auto) Absolute Neuts (auto) Absolute Nucleated RBC Nucleated RBC % (auto) PT INR Anion Gap Estim Creat Clear Calc Estimated GFR POC Glucose 220 H Random Glucose Lactic Acid Calcium Magnesium Total Bilirubin Direct Bilirubin AST ALT Alkaline Phosphatase Ammonia Total Creatine Kinase Troponin I High Sens Total Protein Albumin Lipase Urine Color Urine Appearance Urine pH Ur Specific [place] Urine Protein Urine Glucose (UA) Urine Ketones Urine Blood Urine Nitrite Ur Leukocyte Esterase Urine RBC Urine WBC Ur Squamous Epith Cells Urine Bacteria Salicylates Urine Opiates Screen Urine Fentanyl Screen Acetaminophen Ur Barbiturates Screen Ur Phencyclidine Scrn Ur Amphetamines Screen U Benzodiazepines Scrn Urine Cocaine Screen U Marijuana (THC) Screen Ethyl Alcohol COVID-19 (THANG) COVID-19 Clin Com Microbiology Microbiology Results: Microbiology 02/13/22 17:59 Blood Culture - Preliminary Blood - Venous Prelim: GPC Gram Stain only Assessment and Plan (1) Rhabdomyolysis: Status: Acute (2) Surgical site infection: Status: Acute (3) Positive blood culture: Status: Acute Plan 71-year-old male with extensive past medical history as mentioned above who presents to the hospital due to increased confusion as well as falls found to have infection at this site or recent surgical intervention of a malleolar fr acture that was done on February 03 # Positive blood culture # surgical site infection Positive 1 set, pending final sensitivity Repeat blood cultures continue broad-spectrum antibiotics orthopedic surgical team consulted # rhabdomyolysis From frequent fall Continue IV fluids follow CPK # frequent falls had multiple admissions in the past for the same head CT neg PT prior to discharge # history of opioid use disorder Urine positive for fentanyl and opioids continue methadone # hypertension elevated resume home meds # HLD continue statin # diabetes continue home insulin, hold oral antihyperglycemics start low-dose sliding scale insulin diabetic diet DVT prophylaxis SCDs for possible intervention by surgery The patient will need overnight hospital stay for management of surgical site infection and positive blood culture pending final blood cultures to prevent possible decompensation in to severe sepsis. Quality Stroke Does the patient have a stroke diagnosis?: No VTE Prior VTE?: No VTE Risk Level:: Medical - moderate - high VTE Device Contraindication: Treatment Not Tolerated VTE Drug Contraindication: Treatment Not Indicated
[2022-02-14 11:15] LABS: Glucose, Whole Blood 273 mg/dL (60-115)
[2022-02-14 16:43] LABS: Glucose, Whole Blood 157 mg/dL (60-115)
[2022-02-14] MEDS: Artificial Tears 15 ML DROPS 1 DROP EYE-BOTH ×2 (17:01→19:50)
[2022-02-14] MEDS: OLANZapine 5 MG TABLET PO (19:44)
[2022-02-14] MEDS: Tamsulosin HCL 0.4 MG CAPSULE PO (19:44)
[2022-02-14] MEDS: traZODone HCL 100 MG TABLET 300 MG PO (19:44)
[2022-02-14] MEDS: Atorvastatin Calcium 40 MG TABLET PO (19:45)
[2022-02-14] MEDS: amLODIPine Besylate 10 MG TABLET PO (19:45)
[2022-02-14] MEDS: Insulin Glargine,Hum.rec.anlog 100 UNIT/ML 10 ML VIAL 56 UNIT SUBCUT (19:45)
[2022-02-14 19:49] LABS: Glucose, Whole Blood 176 mg/dL (60-115)
[2022-02-14] MEDS: Dorzolamide/Timolo 2.23%/0.68% 10 ML DRBTL 1 DROP EYE-BOTH (19:50)
[2022-02-14] MEDS: Latanoprost 0.005 % Ophth Sol 2.5 ML DROPS 1 DROP EYE-BOTH (19:50)
[2022-02-14] MEDS: 0.9 % Sodium Chloride Flush 3 ML SYRINGE IVFLUSH (20:07)
--- NOTE | 2022-02-14 22:32 | PM.EVENT ---
Event Note Date of Service: 02/14/22 Event Note: Patient is POD 11 ORIF left ankle 02/03/22, left AMA after surgery -he has been instructed to remain NWB, elevate, and keep the splint clean and dry,he has been non compliant. This was his second time returning to the ED after surgery with a dirty splint The patient is on iv abx which i would recommend he continue The area should be clean and dry to allow for the skin to heal Elevate above heart level to reduce swelling No surgical intervention at this time as the infection does not appear to be deep Will continue to monitor
[2022-02-14] MEDS: vancomycin HCL 1,500 MG in 0.9 % Sodium Chloride 500 ML 333.33 MG IV (22:37)
[2022-02-15] VITALS (11 sets, daily range): BP systolic 119–167; BP diastolic 57–85; PULSE 74–81; RESP 16–20; TEMP 36.1–37.3; O2SAT 95–96
[2022-02-15] MEDS: Piperacillin Sodium/Tazobactam 3.375 GM in 0.9 % Sodium Chloride 50 ML IV ×4 (02:25→20:26)
[2022-02-15] MEDS: 0.9 % Sodium Chloride 1,000 ML 100 ML IVCONT (02:26)
[2022-02-15] MEDS: HYDROmorphone HCl 0.5 MG/0.5 ML SYRINGE IVPUSH ×5 (03:40→23:47)
[2022-02-15] MEDS: Omeprazole 20 MG CAPSULE.DR PO (05:57)
[2022-02-15] MEDS: Acetaminophen 325 MG TABLET 650 MG PO ×2 (05:57→20:58)
[2022-02-15 07:00] LABS: Hematocrit 28.5 % (42.0-52.0); Hemoglobin 9.5 g/dl (14.0-18.0); Mean Corpuscular HGB Conc 33.3 g/dl (31.0-36.0); Mean Corpuscular Hemoglobin 29.7 pg (27.0-33.0); Mean Corpuscular Volume 89.1 fL (80.0-98.0); Platelet Count 457 X10*3/uL (160-400); Red Cell Distribution Width 12.6 % (11.0-16.0); White Blood Count 13.3 X10*3/uL (4.8-10.8)
[2022-02-15 07:41] LABS: Anion Gap 11 (12-20); Blood Urea Nitrogen 8 mg/dL (9-16); Calcium 8.3 mg/dL (8.4-10.2); Carbon Dioxide 29 mmol/L (22-29); Chloride 99 mmol/L (96-108); Creatinine Clr Calc Pharmacy 109.6; Estimated Glomerular Filt Rate > 60; Glucose Random 57 mg/dL (60-115); Potassium 3.2 mmol/L (3.3-5.1); Sodium 136 mmol/L (135-145)
[2022-02-15] MEDS: lisinopriL 40 MG TABLET PO (07:55)
[2022-02-15] MEDS: Aspirin Enteric Coated 81 MG TABLET.DR PO (07:55)
[2022-02-15] MEDS: Loratadine 10 MG TABLET PO (07:56)
[2022-02-15] MEDS: Multivitamin TABLET 1 TAB PO (07:56)
[2022-02-15] MEDS: Metoprolol Succinate ER 25 MG TAB.ER.24H PO (07:56)
[2022-02-15] MEDS: Buprenorphine/Naloxone 8/2 mg FILM 1 FILM SUBLINGUAL ×2 (07:56→20:26)
[2022-02-15] MEDS: Ferrous Sulfate 300 MG/5 ML LIQUID 150 MG PO (07:56)
[2022-02-15] MEDS: Dorzolamide/Timolo 2.23%/0.68% 10 ML DRBTL 1 DROP EYE-BOTH ×2 (07:57→23:20)
[2022-02-15] MEDS: Artificial Tears 15 ML DROPS 1 DROP EYE-BOTH ×3 (07:57→23:20)
--- NOTE | 2022-02-15 08:08 | HE.PHANOTE ---
TONE SIDHU, Continue current dose. Next trough 02/15 @ 2100
[2022-02-15 08:12] LABS: Glucose, Whole Blood 72 mg/dL (60-115)
[2022-02-15] MEDS: Potassium Chloride Packet 20 MEQ PACKET 40 MEQ PO (09:45)
--- NOTE | 2022-02-15 10:02 | MHC.CM.PN ---
CM MET WITH PT WITH THE ASSISTANCE OF A CONTROL OFFICER. PT REPORTS HE LIVES ALONE AND IS INDEPENDENT WITH CARE AT BASELINE PT REPORTS HE HAS A CANE AND NO OTHER DME AND HAS NO HOME SERVICES PT HAS A HCP ON FILE AND HIS PCP IS BARAK WHITMORE PT REPORTS HE IS COVID-19 VACCINATED AND HAS RECEIVED 2 BOOSTERS IMM DELIVERED PT WAS DISCHARGED ON 02/03/22 AT WHICH TIME HE REFUSED STR OR HOME SERVICES PT REPORTS HE IS NOW WILLING TO CONSIDER THESE REFERRALS MADE TO BOTH STR AND [facility] DCP TBD PENDING PT EVAL AND Pt PREFERENCES
--- NOTE | 2022-02-15 10:47 | P.PNIM_ITS ---
Subjective Subjective Date of Service: 02/15/22 Interval History: the patient was seen and evaluated this morning Laying in bed, feels tired and weak Complaining of pain in his left ankle Denies any fever, chills or shortness of breath No reported other overnight events. Systemic review: No fever, chills or weakness No chest pain, palpitation No shortness of breath or coughing No abdominal pain, nausea or vomiting No urinary symptoms Swelling, erythema and tenderness in the ankle Physical Exam Vital Signs: Vital Signs: Last Vital Signs Temp 99.1 F 02/15/22 07:58 Pulse 75 02/15/22 07:58 Resp 18 02/15/22 07:58 BP 155/79 H 02/15/22 07:58 Pulse Ox 95 02/15/22 07:58 O2 Del Method 02/15/22 07:58 BMI result Body Mass Index 29.7 Const: Other: Constitutional : Alert, oriented, not in distress Neck : Normal inspection, Supple Cardiovascular : RRR, no JVP, no lower extremity edema Respiratory : fair bilateral air entry, no crackles, wheezes or rhonchi Gastrointestinal: soft, lax, Normal bowel sounds, Non tender Skin : Warm, Dry, Swelling, erythema and tenderness in the the left ankle with collection formation and whitish material Neurological : Alert & oriented x3, No focal deficit , CN 2-12 within normal Objective Data Active Medications Acetaminophen (Acetaminophen 325 Mg Tablet) 650 mg PO Q6H PRN PRN Reason: Pain, Mild (Pain Scale 1-3) Last Admin: 02/15/22 05:57 Dose: 650 mg Documented By: NEYMAR Amlodipine Besylate (Amlodipine Besylate 10 Mg Tablet) 10 mg PO BEDTIME [facility]; Protocol Last Admin: 02/14/22 19:45 Dose: 10 mg Documented By: NEYMAR Artificial Tears (Artificial Tears 15 Ml Drops) 1 drop EYE-BOTH QID [facility] Last Admin: 02/15/22 07:57 Dose: 1 drop Documented By: CHASIDY Aspirin (Aspirin Enteric Coated 81 Mg Tablet.) 81 mg PO DAILY [facility] Last Admin: 02/15/22 07:55 Dose: 81 mg Documented By: CHASIDY Atorvastatin Calcium (Atorvastatin Calcium 40 Mg Tablet) 40 mg PO BEDTIME [facility] Last Admin: 02/14/22 19:45 Dose: 40 mg Documented By: NEYMAR Buprenorphine/Naloxone (Buprenorphine/Naloxone 8/2 Mg Film) 1 film SUBLINGUAL BID [facility] Last Admin: 02/15/22 07:56 Dose: 1 film Documented By: CHASIDY Dextrose (Dextrose 50 % 25 Gm/50 Ml Syringe) 25 gm IVPUSH Q15M PRN; Protocol PRN Reason: per Hypoglycemia Standing Ord. Docusate Sodium (Docusate Sodium 100 Mg Capsule) 100 mg PO DAILY PRN PRN Reason: Constipation Dorzolamide/Timolol (Dorzolamide/Timolo 2.23%/0.68% 10 Ml Drbtl) 1 drop EYE- BOTH BID [facility] Last Admin: 02/15/22 07:57 Dose: 1 drop Documented By: CHASIDY Ferrous Sulfate (Ferrous Sulfate 300 Mg/5 Ml Liquid) 150 mg PO DAILY [facility] Last Admin: 02/15/22 07:56 Dose: 150 mg Documented By: CHASIDY Fluticasone Propionate (Fluticasone Propionate 100 Mcg Blst.W.Dev) 1 puff INHALE BID PRN PRN Reason: Wheezing Glucose (Glucose Gel 15 Gm Gel..Gram.) 15 gm PO Q15M PRN; Protocol PRN Reason: per Hypoglycemia Standing Ord. Hydromorphone HCl (Hydromorphone Hcl 0.5 Mg/0.5 Ml Syringe) 0.5 mg IVPUSH Q4H PRN; Protocol PRN Reason: Pain, Severe (Pain Scale 7-10) Last Admin: 02/15/22 07:57 Dose: 0.5 mg Documented By: CHASIDY Piperacillin Sod/Tazobactam (Sod 3.375 gm/ Sodium Chloride) 50 mls @ 100 mls/hr IV Q6H [facility] Last Infusion: 02/15/22 10:23 Dose: 0 mls/hr Documented By: CHASIDY Vancomycin HCl 1,500 mg/ (Sodium Chloride) 500 mls @ 333.333 mls/hr IV Q24H [facility] Last Infusion: 02/15/22 00:07 Dose: 0 mls/hr Documented By: NEYMAR Sodium Chloride (Ns) 1,000 mls @ 100 mls/hr IVCONT .Q10H [facility] Last Infusion: 02/15/22 02:58 Dose: 100 mls/hr Documented By: NEYMAR Insulin Glargine (Insulin Glargine,Hum.Rec.Anlog 100 Unit/Ml 10 Ml Vial) 56 unit SUBCUT BEDTIME [facility] Last Admin: 02/14/22 19:45 Dose: 56 unit Documented By: NEYMAR Insulin Human Lispro (Insulin Lispro 100 Unit/Ml 3 Ml Vial) 0 unit SUBCUT QIDACHS [facility]; Protocol Last Admin: 02/15/22 07:45 Dose: Not Given Documented By: CHASIDY Non-Admin Reason: No Insulin Coverage Latanoprost (Latanoprost 0.005 % Ophth Yari 2.5 Ml Drops) 1 drop EYE-BOTH BEDTIME [facility] Last Admin: 02/14/22 19:50 Dose: 1 drop Documented By: NEYMAR Lisinopril (Lisinopril 40 Mg Tablet) 40 mg PO DAILY [facility]; Protocol Last Admin: 02/15/22 07:55 Dose: 40 mg Documented By: CHASIDY Loratadine (Loratadine 10 Mg Tablet) 10 mg PO DAILY [facility] Last Admin: 02/15/22 07:56 Dose: 10 mg Documented By: CHASIDY Metformin HCl (Metformin Hcl 1,000 Mg Tablet) 1,000 mg PO BID [facility] Last Admin: 02/15/22 07:49 Dose: Not Given Documented By: CHASIDY Non-Admin Reason: low blood sugar Metoprolol Succinate (Metoprolol Succinate Er 25 Mg Tab.Er.24h) 25 mg PO DAILY [facility]; Protocol Last Admin: 02/15/22 07:56 Dose: 25 mg Documented By: CHASIDY Multivitamins/Vitamin C (Multivitamin Tablet) 1 tab PO DAILY [facility] Last Admin: 02/15/22 07:56 Dose: 1 tab Documented By: CHASIDY Olanzapine (Olanzapine 5 Mg Tablet) 5 mg PO BEDTIME [facility] Last Admin: 02/14/22 19:44 Dose: 5 mg Documented By: NEYMAR Omeprazole (Omeprazole 20 Mg Capsule.Dr) 20 mg PO DAILY@0630 [facility] Last Admin: 02/15/22 05:57 Dose: 20 mg Documented By: NEYMAR Ondansetron HCl (Ondansetron Hcl 4 Mg/2 Ml Vial) 4 mg IVPUSH Q8H PRN PRN Reason: Nausea and Vomiting Oxybutynin Chloride (Oxybutynin Chloride Er 5 Mg Tab.Er.24) 5 mg PO DAILY [facility] Last Admin: 02/15/22 07:55 Dose: 5 mg Documented By: CHASIDY Pharmacy Consult (Consult Rx Perform Med Rec) 1 each MISCELLANE ONCE PRN PRN Reason: Consult order Pharmacy Consult (Consult Rx Vancomycin Dosing) 1 each MISCELLANE DAILY PRN PRN Reason: Consult order Sodium Chloride (0.9 % Sodium Chloride Flush 3 Ml Syringe) 3 ml IVFLUSH QSHIFT [facility] Last Admin: 02/15/22 07:08 Dose: Not Given Documented By: CHASIDY Non-Admin Reason: IV Running Tamsulosin HCl (Tamsulosin Hcl 0.4 Mg Capsule) 0.4 mg PO BEDTIME [facility] Last Admin: 02/14/22 19:44 Dose: 0.4 mg Documented By: NEYMAR Trazodone HCl (Trazodone Hcl 100 Mg Tablet) 100 mg PO BEDTIME PRN PRN Reason: Insomnia Trazodone HCl (Trazodone Hcl 100 Mg Tablet) 300 mg PO BEDTIME [facility] Last Admin: 02/14/22 19:44 Dose: 300 mg Documented By: NEYMAR Labs CBC & Chem 7: 02/15/22 05:55 02/15/22 05:55 Labs: Laboratory Results - last 24 hr 02/14/22 02/14/22 02/14/22 11:10 16:31 19:38 MCV MCH MCHC RDW Plt Count MPV Absolute Nucleated RBC Nucleated RBC % (auto) Anion Gap Estim Creat Clear Calc Estimated GFR POC Glucose 273 H 157 H 176 H Random Glucose Calcium 02/15/22 02/15/22 02/15/22 05:55 05:55 07:37 MCV 89.1 MCH 29.7 MCHC 33.3 RDW 12.6 Plt Count 457 H MPV 9.0 L Absolute Nucleated RBC 0.000 Nucleated RBC % (auto) 0.0 Anion Gap 11 L Estim Creat Clear Calc 109.6 Estimated GFR > 60 POC Glucose 72 Random Glucose 57 L* Calcium 8.3 L Microbiology Microbiology Results: Microbiology 02/13/22 17:59 Blood Culture - Preliminary Blood - Venous Staphylococcus aureus Coag negative Staphylococcus 02/13/22 17:59 Blood Culture - Preliminary Blood - Venous Staphylococcus aureus Coag negative Staphylococcus Assessment and Plan (1) Gram-positive bacteremia: Status: Acute (2) Rhabdomyolysis: Status: Acute (3) Hypokalemia: Status: Acute (4) Surgical site infection: Status: Acute Plan 71-year-old male with extensive past medical history as mentioned above who presents to the hospital due to increased confusion as well as falls found to have infection at this site or recent surgical intervention of a malleolar fracture that was done on February 03 # Gram-positive bacteremia # surgical site infection Positive blood culture growing Staph, pending final sensitivity Repeat blood cultures pending continue broad-spectrum antibiotics Get ID evaluation orthopedic surgical team consulted # rhabdomyolysis From frequent fall Discontinue IV fluids Trended down CPK # hypokalemia Potassium 3.2 give replacement and follow BMP # frequent falls had multiple admissions in the past for the same head CT neg PT prior to discharge # history of opioid use disorder Urine positive for fentanyl and opioids continue methadone # hypertension elevated resume home meds # HLD continue statin # diabetes continue home insulin, hold oral antihyperglycemics start low-dose sliding scale insulin diabetic diet DVT prophylaxis SCDs for possible intervention by surgery The patient will need overnight hospital stay for management of surgical site infection and positive blood culture pending final blood cultures to prevent possible decompensation in to severe sepsis. Quality Stroke Does the patient have a stroke diagnosis?: No VTE Prior VTE?: No VTE Risk Level:: Medical - moderate - high VTE Device Contraindication: Treatment Not Tolerated VTE Drug Contraindication: Treatment Not Indicated
[2022-02-15 11:36] LABS: Glucose, Whole Blood 182 mg/dL (60-115)
[2022-02-15] MEDS: Insulin Lispro 100 UNIT/ML 3 ML VIAL SUBCUT ×2 (12:18→21:00)
[2022-02-15] MEDS: 0.9 % Sodium Chloride Flush 3 ML SYRINGE IVFLUSH ×2 (15:16→20:27)
[2022-02-15 16:30] LABS: Glucose, Whole Blood 112 mg/dL (60-115)
--- NOTE | 2022-02-15 19:06 | PM.CNOR ---
History of Present Illness HPI Consult date: 02/15/22 Chief complaint: Surgical wound infection Narrative: 71 yo male who was admitted to the medical service after presenting to the ED with AMS, frequent falls and found to have bacteremia and rhabdomylitis. He is s/p ORIF of the left ankle with Dr Lee on 02/03/22, where he later left the hospital AMA. Since his surgery he has had a difficult time remaining compliant with NWB and keeping the splint clean and dry. He is diabetic . While in the ED, the splint was taken down and the incision site appeared to be macerated, red , swollen and there was some scant drainage. He was started on iv abx and ortho and ID was consulted for further recommendations. Review of Systems Review of Systems: per [facility] Past Medical History Medical History (Updated 02/16/22 @ 12:57 by Maryellen Alan MD) Anxiety CAD (coronary artery disease) COPD (chronic obstructive pulmonary disease) Genital herpes JAUN (obstructive sleep apnea) Pancreatic abnormality Family History Family History Mother No problems noted. Father Liver cancer Surgical History Surgical History (Updated 02/17/22 @ 21:23 by Stephania Najera PA-C) History of ankle surgery Social History Social History Household Members: None Housing: Apartment Do you presently have visiting nurse or other home services: No Alcohol intake: never Patient Tobacco Use Status: Current everyday Tobacco user Tobacco use type: Cigarette Cigarettes Per Day: 3 Smoked in Last 30 Days: Yes e-Cigarette/Vaping Use: Currently Using Patient Interested in Nicotine Replacement: No Patient Given Instructions on How to Stop Smoking: No Second Hand Smoke Exposure: No Use of substances other than those prescribed or required for medical reasons: Unknown Substance Use Type: Heroin Currently Displaying Signs/Symptoms of Drug Intoxication Withdrawal: No Any prior treatment program specific to substance use: No Have you been hit, kicked, punched, or otherwise hurt by someone within the past year? If so, by whom?: No Do you feel safe in your current relationship?: No Current Relationship Is there a partner from a previous relationship who is making you feel unsafe now?: No Advance Directives: Yes Advance Directives Information Provided: No Advance Directives on File: Yes Advance Directives Date on File: 01/28/22 Do you have thoughts of harming others: None Do you have a plan to hurt others: No Plan Recently lost weight without trying: No Eating poorly because of decreased appetite: No Nutrition Risks: No Nutritional Risk Poor oral hygiene: No service: No Current occupational status: retired and disabled Current occupation: right handed Meds Allergies Allergy/AdvReac Type Severity Reaction Status Date / Time No Known Allergies Allergy Verified 01/27/22 11:10 Active Medications: Current Medications Acetaminophen (Acetaminophen 325 Mg Tablet) 650 mg PO Q6H PRN PRN Reason: Pain, Mild (Pain Scale 1-3) Last Admin: 02/15/22 05:57 Dose: 650 mg Amlodipine Besylate (Amlodipine Besylate 10 Mg Tablet) 10 mg PO BEDTIME [facility]; Protocol Last Admin: 02/14/22 19:45 Dose: 10 mg Artificial Tears (Artificial Tears 15 Ml Drops) 1 drop EYE-BOTH QID [facility] Last Admin: 02/15/22 16:51 Dose: Not Given Aspirin (Aspirin Enteric Coated 81 Mg Tablet.Dr) 81 mg PO DAILY [facility] Last Admin: 02/15/22 07:55 Dose: 81 mg Atorvastatin Calcium (Atorvastatin Calcium 40 Mg Tablet) 40 mg PO BEDTIME [facility] Last Admin: 02/14/22 19:45 Dose: 40 mg Buprenorphine/Naloxone (Buprenorphine/Naloxone 8/2 Mg Film) 1 film SUBLINGUAL BID [facility] Last Admin: 02/15/22 07:56 Dose: 1 film Dextrose (Dextrose 50 % 25 Gm/50 Ml Syringe) 25 gm IVPUSH Q15M PRN; Protocol PRN Reason: per Hypoglycemia Standing Ord. Docusate Sodium (Docusate Sodium 100 Mg Capsule) 100 mg PO DAILY PRN PRN Reason: Constipation Dorzolamide/Timolol (Dorzolamide/Timolo 2.23%/0.68% 10 Ml Drbtl) 1 drop EYE-BOTH BID [facility] Last Admin: 02/15/22 07:57 Dose: 1 drop Ferrous Sulfate (Ferrous Sulfate 300 Mg/5 Ml Liquid) 150 mg PO DAILY [facility] Last Admin: 02/15/22 07:56 Dose: 150 mg Fluticasone Propionate (Fluticasone Propionate 100 Mcg Blst.W.Dev) 1 puff INHALE BID PRN PRN Reason: Wheezing Glucose (Glucose Gel 15 Gm Gel..Gram.) 15 gm PO Q15M PRN; Protocol PRN Reason: per Hypoglycemia Standing Ord. Hydromorphone HCl (Hydromorphone Hcl 0.5 Mg/0.5 Ml Syringe) 0.5 mg IVPUSH Q4H PRN; Protocol PRN Reason: Pain, Severe (Pain Scale 7-10) Last Admin: 02/15/22 18:36 Dose: 0.5 mg Piperacillin Sod/Tazobactam (Sod 3.375 gm/ Sodium Chloride) 50 mls @ 100 mls/hr IV Q6H [facility] Last Infusion: 02/15/22 15:53 Dose: Infused Vancomycin HCl 1,500 mg/ (Sodium Chloride) 500 mls @ 333.333 mls/hr IV Q24H [facility] Last Infusion: 02/15/22 00:07 Dose: Infused Insulin Glargine (Insulin Glargine,Hum.Rec.Anlog 100 Unit/Ml 10 Ml Vial) 45 unit SUBCUT BEDTIME [facility] Insulin Human Lispro (Insulin Lispro 100 Unit/Ml 3 Ml Vial) 0 unit SUBCUT QIDACHS [facility]; Protocol Last Admin: 02/15/22 16:33 Dose: Not Given Latanoprost (Latanoprost 0.005 % Ophth Yari 2.5 Ml Drops) 1 drop EYE-BOTH BEDTIME [facility] Last Admin: 02/14/22 19:50 Dose: 1 drop Lisinopril (Lisinopril 40 Mg Tablet) 40 mg PO DAILY [facility]; Protocol Last Admin: 02/15/22 07:55 Dose: 40 mg Loratadine (Loratadine 10 Mg Tablet) 10 mg PO DAILY [facility] Last Admin: 02/15/22 07:56 Dose: 10 mg Metformin HCl (Metformin Hcl 1,000 Mg Tablet) 1,000 mg PO BID [facility] Last Admin: 02/15/22 07:49 Dose: Not Given Metoprolol Succinate (Metoprolol Succinate Er 25 Mg Tab.Er.24h) 25 mg PO DAILY [facility]; Protocol Last Admin: 02/15/22 07:56 Dose: 25 mg Multivitamins/Vitamin C (Multivitamin Tablet) 1 tab PO DAILY [facility] Last Admin: 02/15/22 07:56 Dose: 1 tab Olanzapine (Olanzapine 5 Mg Tablet) 5 mg PO BEDTIME [facility] Last Admin: 02/14/22 19:44 Dose: 5 mg Omeprazole (Omeprazole 20 Mg Capsule.Dr) 20 mg PO DAILY@0630 [facility] Last Admin: 02/15/22 05:57 Dose: 20 mg Ondansetron HCl (Ondansetron Hcl 4 Mg/2 Ml Vial) 4 mg IVPUSH Q8H PRN PRN Reason: Nausea and Vomiting Oxybutynin Chloride (Oxybutynin Chloride Er 5 Mg Tab.Er.24) 5 mg PO DAILY [facility] Last Admin: 02/15/22 07:55 Dose: 5 mg Pharmacy Consult (Consult Rx Perform Med Rec) 1 each MISCELLANE ONCE PRN PRN Reason: Consult order Pharmacy Consult (Consult Rx Vancomycin Dosing) 1 each MISCELLANE DAILY PRN PRN Reason: Consult order Sodium Chloride (0.9 % Sodium Chloride Flush 3 Ml Syringe) 3 ml IVFLUSH QSHIFT [facility] Last Admin: 02/15/22 15:16 Dose: 3 ml Tamsulosin HCl (Tamsulosin Hcl 0.4 Mg Capsule) 0.4 mg PO BEDTIME [facility] Last Admin: 02/14/22 19:44 Dose: 0.4 mg Trazodone HCl (Trazodone Hcl 100 Mg Tablet) 100 mg PO BEDTIME PRN PRN Reason: Insomnia Trazodone HCl (Trazodone Hcl 100 Mg Tablet) 300 mg PO BEDTIME [facility] Last Admin: 02/14/22 19:44 Dose: 300 mg Home Medications Medication Instructions Recorded Confirmed Last Taken Type aspirin 81 mg tablet,delayed 81 mg PO DAILY 06/06/20 02/13/22 03/26/21 History release lisinopril 40 mg tablet 40 mg PO DAILY 06/06/20 02/13/22 03/26/21 History metoprolol succinate 25 mg 25 mg PO DAILY 06/06/20 02/13/22 03/26/21 History tablet,extended release 24 hr sennosides 8.6 mg capsule (senna) 8.6 mg PO BEDTIME PRN Constipation 06/06/20 02/13/22 Unknown History buprenorphine 8 mg-naloxone 2 mg 1 film sublingual BID 12/06/20 02/13/22 03/26/21 History sublingual film amlodipine 10 mg tablet 10 mg PO BEDTIME 03/26/21 02/13/22 03/25/21 History atorvastatin 40 mg tablet 40 mg PO BEDTIME 03/26/21 02/13/22 03/25/21 History dorzolamide 22.3 mg-timolol 6.8 1 drp ophthalmic (eye) BID 03/26/21 02/13/22 03/26/21 History mg/mL eye drops fluticasone propionate 110 1 puff PO BID PRN Wheezing 03/26/21 02/13/22 Unknown History mcg/actuation HFA aerosol inhaler (Flovent HFA) glipizide 5 mg tablet, extended 5 mg PO DAILY 03/26/21 02/13/22 03/26/21 History release 24 hr insulin detemir U-100 100 unit/mL 80 unit subcut BEDTIME 03/26/21 02/13/22 03/25/21 History subcutaneous solution (Levemir U-100 Insulin) latanoprost 0.005 % eye drops 1 drp ophthalmic (eye) BEDTIME 03/26/21 02/13/22 03/25/21 History metformin 1,000 mg tablet 1,000 mg PO BID 03/26/21 02/13/22 03/26/21 History multivitamin-ferrous 1 tab PO DAILY 03/26/21 02/13/22 03/26/21 History fumarate-folic acid 18 mg-400 mcg tablet (Certavite-Antioxidant) olanzapine 5 mg tablet (Zyprexa) 5 mg PO BEDTIME 03/26/21 02/13/22 03/25/21 History omega-3 fatty acids-fish oil 340 1 cap PO TID 03/26/21 02/13/22 03/26/21 History mg-1,000 mg capsule (Fish Oil) peg [id number] 1 1 drp ophthalmic (eye) QID 03/26/21 02/13/22 03/26/21 History %-0.2 %-0.2 % eye drops (Dry Eye Relief) trazodone 100 mg tablet 100 mg PO BEDTIME PRN Insomnia 03/26/21 02/13/22 03/25/21 History trazodone 150 mg tablet 300 mg PO BEDTIME 03/26/21 02/14/22 03/25/21 History clotrimazole 1 % topical cream 1 appl topical BID 09/11/21 02/13/22 Unknown History loratadine 10 mg tablet 10 mg PO QAM 09/11/21 02/13/22 Unknown History naproxen 500 mg tablet 1 tab PO BID PRN pain 01/27/22 02/13/22 Unknown History Physical Exam Vital Signs: Vital Signs: Last Vital Signs Temp 98.1 F 02/15/22 15:35 Pulse 75 02/15/22 15:35 Resp 18 02/15/22 18:36 BP 130/71 02/15/22 15:35 Pulse Ox 96 02/15/22 15:35 O2 Del Method 02/15/22 15:35 BMI result Body Mass Index 29.7 Extrem: Other: Please refer to images above. + pitting edema with bilateral blisters containing yellow/clear fluid. Lateral aspect with erythema and slight warmth. No streaking. No crepitus. Tender to palpation. Neurovascularly intact Results Labs Result Diagrams: 02/17/22 06:07 02/17/22 06:07 Labs: Abnormal lab results 02/14/22 02/15/22 02/15/22 Range/Units 19:38 05:55 05:55 WBC 13.3 H (4.8-10.8) X10*3/uL RBC 3.20 L (4.60-5.80) X10*6/uL Hgb 9.5 L (14.0-18.0) g/dl Hct 28.5 L (42.0-52.0) % Plt Count 457 H (160-400) X10*3/uL MPV 9.0 L (9.4-12.4) fL Potassium 3.2 L (3.3-5.1) mmol/L Anion Gap 11 L (12-20) BUN 8 L (9-16) mg/dL POC Glucose 176 H (60-115) mg/dL Random Glucose 57 L* (60-115) mg/dL Calcium 8.3 L (8.4-10.2) mg/dL 02/15/22 Range/Units 11:24 WBC (4.8-10.8) X10*3/uL RBC (4.60-5.80) X10*6/uL Hgb (14.0-18.0) g/dl Hct (42.0-52.0) % Plt Count (160-400) X10*3/uL MPV (9.4-12.4) fL Potassium (3.3-5.1) mmol/L Anion Gap (12-20) BUN (9-16) mg/dL POC Glucose 182 H (60-115) mg/dL Random Glucose (60-115) mg/dL Calcium (8.4-10.2) mg/dL H & H 02/13/22 02/14/22 02/15/22 Range/Units 16:40 05:59 05:55 Hgb 10.4 L 9.2 L 9.5 L (14.0-18.0) g/dl Hct 30.2 L 27.4 L 28.5 L (42.0-52.0) % Coagulation 02/13/22 Range/Units 16:40 INR 1.3 H (0.9-1.1) All other labs normal. Assessment and Plan (1) Diabetes mellitus: Status: Acute (2) History of ankle surgery: A silver / foam antibacterial dressing was applied to the ankle with an ilene wrap and he was given a night splint boot for comfort. He will continue to remain NWB, but should be up and out of bed. Continue IV abx as blood cx grew out +staph There does not appear to be a deep infection, no surgical intervention warranted. Remove cruzito 14 days post op Will continue to follow Procedures Date of Service Date of Service: 02/17/22
[2022-02-15] MEDS: amLODIPine Besylate 10 MG TABLET PO (20:26)
[2022-02-15] MEDS: Tamsulosin HCL 0.4 MG CAPSULE PO (20:26)
[2022-02-15] MEDS: metFORMIN HCl 1,000 MG TABLET 1000 MG PO (20:26)
[2022-02-15] MEDS: Atorvastatin Calcium 40 MG TABLET PO (20:26)
[2022-02-15] MEDS: OLANZapine 5 MG TABLET PO (20:26)
[2022-02-15] MEDS: traZODone HCL 100 MG TABLET 300 MG PO (20:26)
[2022-02-15 20:46] LABS: Glucose, Whole Blood 289 mg/dL (60-115)
[2022-02-15] MEDS: Insulin Glargine,Hum.rec.anlog 100 UNIT/ML 10 ML VIAL 45 UNIT SUBCUT (20:58)
[2022-02-15 21:33] LABS: Vancomycin Random < 3.0 mcg/mL (15-20)
--- NOTE | 2022-02-15 21:45 | HE.PHANOTE ---
due to low vanco trough and decrease in Scr, vanco changed to 1 gm q12h with random trough sherrill for 02/16/22. Predicted random trough to be around 10 with auc >350
[2022-02-15] MEDS: Latanoprost 0.005 % Ophth Sol 2.5 ML DROPS 1 DROP EYE-BOTH (23:20)
[2022-02-15] MEDS: vancomycin HCL 1,000 MG in 0.9 % Sodium Chloride 250 ML 270 MG IV (23:21)
[2022-02-16] MEDS: Piperacillin Sodium/Tazobactam 3.375 GM in 0.9 % Sodium Chloride 50 ML IV ×2 (02:49→08:39)
[2022-02-16 03:15] VITALS: BP 163/78; PULSE 76; RESP 18; TEMP 37.3; O2SAT 95
[2022-02-16] MEDS: HYDROmorphone HCl 0.5 MG/0.5 ML SYRINGE IVPUSH ×3 (03:47→17:11)
[2022-02-16] MEDS: Omeprazole 20 MG CAPSULE.DR PO (05:42)
[2022-02-16 07:13] VITALS: BP 156/80; PULSE 77; RESP 16; TEMP 36.2; O2SAT 97
[2022-02-16 07:39] LABS: Anion Gap 14 (12-20); Blood Urea Nitrogen 7 mg/dL (9-16); Calcium 8.5 mg/dL (8.4-10.2); Carbon Dioxide 27 mmol/L (22-29); Chloride 97 mmol/L (96-108); Estimated Glomerular Filt Rate > 60; Glucose Random 89 mg/dL (60-115); Potassium 3.4 mmol/L (3.3-5.1); Sodium 135 mmol/L (135-145)
[2022-02-16 07:44] LABS: Glucose, Whole Blood 81 mg/dL (60-115)
--- NOTE | 2022-02-16 08:15 | P.CDIC_ITS ---
CDI Concurrent Query Documentation Clarification: PHYSICIAN'S DOCUMENTATION REQUEST Date of Query: 02/16/22 0815 Patient Name: Rosie Garza Admit Date: 02/13/22 Dear Doctor, A review of the medical record indicates additional documentation may be needed. Please review below and update the documentation accordingly. Clinical Indicators: Risk Factors/Clinical Indicators/Treatments L ankle previous OR for fracture has cruzito, blisters with yellow fluid WBC 13.6 BC:? gram + bacteremia/Staphylococcus On 02/13/22: T 100.6, heart rate 90 LA 1.2 Tx: Vancomycin, Zosyn Surgical site infection per H&P ID consult pending Please clarify which, if any, of the following is the most likely etiology of the above symptoms and treatment rendered: * Sepsis, present on admission * Systemic manifestations of infection, with 2 or more SIRS criteria which include: - Fever > 100.4F or hypothermia < 96.8 F - Leukocytosis - WBC > 12,000 or leukopenia, WBC < 4,000 or > 10% bands - Tachycardia > 90 beats/minute - Tachypnea - RR > 20 breaths/minute or PaCO2 < 32mmHg (Source: Merck Manual 2013) * Indicate the known or suspected organism * Indicate the known or suspected underlying infection, such as UTI, pneumonia, or cellulitis * Indicate if a suspected bacterial infection of unknown source * Indicate if associated with an implanted device such as a F/C, PICC line, orthopedic hardware, etc. * Localized infection only, without systemic illness - indicate the site/source, such as UTI, pneumonia, etc. * Other (please specify) * Unable to determine Use of terms such as suspected, likely, concern for, or probable (associated with a specific diagnosis that is being evaluated, monitored, or treated as if it exists) are acceptable and can be coded in the inpatient setting, when documented at the time of discharge. Thank you, Gauri Solis RN Extension: [phone] Please use your independent medical judgment in providing your response. THIS QUERY IS PART OF THE PERMANENT MEDICAL RECORD Provider Response: Other Other Diagnosis: Not septic on admission
--- NOTE | 2022-02-16 08:25 | HE.PHANOTE ---
Vancomycin Dosing Addendum Patient was on 1000mg q12, last dose given 02/15 @2300, previous to this dose level was <3. Patients renal function is improving. Due to low level, patients dose was changed. Dose changed to 1250mg q12, to start 02/16 @1000. Predicted AUC is 540mg/L/hr. Random level to be drawn 02/16 @2100.
[2022-02-16] MEDS: Ferrous Sulfate 300 MG/5 ML LIQUID 150 MG PO (08:38)
[2022-02-16] MEDS: Metoprolol Succinate ER 25 MG TAB.ER.24H PO (08:38)
[2022-02-16] MEDS: metFORMIN HCl 1,000 MG TABLET 1000 MG PO ×2 (08:38→20:13)
[2022-02-16] MEDS: Buprenorphine/Naloxone 8/2 mg FILM 1 FILM SUBLINGUAL ×2 (08:38→20:13)
[2022-02-16] MEDS: Aspirin Enteric Coated 81 MG TABLET.DR PO (08:38)
[2022-02-16] MEDS: Multivitamin TABLET 1 TAB PO (08:38)
[2022-02-16] MEDS: 0.9 % Sodium Chloride Flush 3 ML SYRINGE IVFLUSH ×3 (08:39→20:16)
[2022-02-16] MEDS: lisinopriL 40 MG TABLET PO (08:39)
[2022-02-16] MEDS: Loratadine 10 MG TABLET PO (08:39)
[2022-02-16] MEDS: Artificial Tears 15 ML DROPS 1 DROP EYE-BOTH ×4 (08:40→20:15)
[2022-02-16] MEDS: Dorzolamide/Timolo 2.23%/0.68% 10 ML DRBTL 1 DROP EYE-BOTH ×2 (08:40→20:16)
--- NOTE | 2022-02-16 09:14 | MHC.CLN ---
NUTRITION CONSULT FOR SKIN. PATIENT WITH LEFT ANKLE SURGICAL WOUND INFECTION. DIET=DIABETIC 1999. NO ADDITIONAL NUTRITION INTERVENTIONS AT THIS TIME.
--- NOTE | 2022-02-16 10:07 | P.PNIM_ITS ---
Subjective Subjective Date of Service: 02/16/22 Interval History: the patient was seen and evaluated this morning Laying in bed, feels tired from all the blood work Improved pain in his left ankle Repeated blood cultures turning positive Denies any fever, chills or shortness of breath No reported other overnight events. Systemic review: No fever, chills or weakness No chest pain, palpitation No shortness of breath or coughing No abdominal pain, nausea or vomiting No urinary symptoms Swelling, erythema and tenderness in the ankle Physical Exam Vital Signs: Vital Signs: Last Vital Signs Temp 97.2 F 02/16/22 07:13 Pulse 77 02/16/22 07:13 Resp 16 02/16/22 07:13 BP 156/80 H 02/16/22 07:13 Pulse Ox 97 02/16/22 07:13 O2 Del Method 02/16/22 07:13 BMI result Body Mass Index 29.7 Const: Other: Constitutional : Alert, oriented, not in distress Neck : Normal inspection, Supple Cardiovascular : RRR, no JVP, no lower extremity edema Respiratory : fair bilateral air entry, no crackles, wheezes or rhonchi Gastrointestinal: soft, lax, Normal bowel sounds, Non tender Skin : Warm, Dry, Swelling, erythema and tenderness in the the left ankle with wound cover by dressing Neurological : Alert & oriented x3, No focal deficit , CN 2-12 within normal Objective Data Active Medications Acetaminophen (Acetaminophen 325 Mg Tablet) 650 mg PO Q6H PRN PRN Reason: Pain, Mild (Pain Scale 1-3) Last Admin: 02/15/22 20:58 Dose: 650 mg Documented By: JUICE Amlodipine Besylate (Amlodipine Besylate 10 Mg Tablet) 10 mg PO BEDTIME [facility]; Protocol Last Admin: 02/15/22 20:26 Dose: 10 mg Documented By: JUICE Artificial Tears (Artificial Tears 15 Ml Drops) 1 drop EYE-BOTH QID [facility] Last Admin: 02/16/22 08:40 Dose: 1 drop Documented By: AIDE Aspirin (Aspirin Enteric Coated 81 Mg Tablet.) 81 mg PO DAILY [facility] Last Admin: 02/16/22 08:38 Dose: 81 mg Documented By: AIDE Atorvastatin Calcium (Atorvastatin Calcium 40 Mg Tablet) 40 mg PO BEDTIME [facility] Last Admin: 02/15/22 20:26 Dose: 40 mg Documented By: JUICE Buprenorphine/Naloxone (Buprenorphine/Naloxone 8/2 Mg Film) 1 film SUBLINGUAL BID [facility] Last Admin: 02/16/22 08:38 Dose: 1 film Documented By: AIDE Dextrose (Dextrose 50 % 25 Gm/50 Ml Syringe) 25 gm IVPUSH Q15M PRN; Protocol PRN Reason: per Hypoglycemia Standing Ord. Docusate Sodium (Docusate Sodium 100 Mg Capsule) 100 mg PO DAILY PRN PRN Reason: Constipation Dorzolamide/Timolol (Dorzolamide/Timolo 2.23%/0.68% 10 Ml Drbtl) 1 drop EYE- BOTH BID [facility] Last Admin: 02/16/22 08:40 Dose: 1 drop Documented By: AIDE Ferrous Sulfate (Ferrous Sulfate 300 Mg/5 Ml Liquid) 150 mg PO DAILY [facility] Last Admin: 02/16/22 08:38 Dose: 150 mg Documented By: AIDE Fluticasone Propionate (Fluticasone Propionate 100 Mcg Blst.W.Dev) 1 puff INHALE BID PRN PRN Reason: Wheezing Glucose (Glucose Gel 15 Gm Gel..Gram.) 15 gm PO Q15M PRN; Protocol PRN Reason: per Hypoglycemia Standing Ord. Hydromorphone HCl (Hydromorphone Hcl 0.5 Mg/0.5 Ml Syringe) 0.5 mg IVPUSH Q4H PRN; Protocol PRN Reason: Pain, Severe (Pain Scale 7-10) Last Admin: 02/16/22 08:41 Dose: 0.5 mg Documented By: AIDE Piperacillin Sod/Tazobactam (Sod 3.375 gm/ Sodium Chloride) 50 mls @ 100 mls/hr IV Q6H [facility] Last Infusion: 02/16/22 09:23 Dose: 0 mls/hr Documented By: AIDE Vancomycin HCl 1,250 mg/ (Sodium Chloride) 250 mls @ 166.667 mls/hr IV Q12H [facility] Insulin Glargine (Insulin Glargine,Hum.Rec.Anlog 100 Unit/Ml 10 Ml Vial) 45 unit SUBCUT BEDTIME [facility] Last Admin: 02/15/22 20:58 Dose: 45 unit Documented By: JUICE Insulin Human Lispro (Insulin Lispro 100 Unit/Ml 3 Ml Vial) 0 unit SUBCUT QIDACHS [facility]; Protocol Last Admin: 02/16/22 08:05 Dose: Not Given Documented By: AIDE Non-Admin Reason: No Insulin Coverage Latanoprost (Latanoprost 0.005 % Ophth Yari 2.5 Ml Drops) 1 drop EYE-BOTH BEDTIME [facility] Last Admin: 02/15/22 23:20 Dose: 1 drop Documented By: JUICE Lisinopril (Lisinopril 40 Mg Tablet) 40 mg PO DAILY [facility]; Protocol Last Admin: 02/16/22 08:39 Dose: 40 mg Documented By: AIDE Loratadine (Loratadine 10 Mg Tablet) 10 mg PO DAILY [facility] Last Admin: 02/16/22 08:39 Dose: 10 mg Documented By: AIDE Metformin HCl (Metformin Hcl 1,000 Mg Tablet) 1,000 mg PO BID [facility] Last Admin: 02/16/22 08:38 Dose: 1,000 mg Documented By: AIDE Metoprolol Succinate (Metoprolol Succinate Er 25 Mg Tab.Er.24h) 25 mg PO DAILY [facility]; Protocol Last Admin: 02/16/22 08:38 Dose: 25 mg Documented By: AIDE Multivitamins/Vitamin C (Multivitamin Tablet) 1 tab PO DAILY [facility] Last Admin: 02/16/22 08:38 Dose: 1 tab Documented By: AIDE Olanzapine (Olanzapine 5 Mg Tablet) 5 mg PO BEDTIME [facility] Last Admin: 02/15/22 20:26 Dose: 5 mg Documented By: JUICE Omeprazole (Omeprazole 20 Mg Capsule.Dr) 20 mg PO DAILY@0630 [facility] Last Admin: 02/16/22 05:42 Dose: 20 mg Documented By: JUICE Ondansetron HCl (Ondansetron Hcl 4 Mg/2 Ml Vial) 4 mg IVPUSH Q8H PRN PRN Reason: Nausea and Vomiting Oxybutynin Chloride (Oxybutynin Chloride Er 5 Mg Tab.Er.24) 5 mg PO DAILY [facility] Last Admin: 02/16/22 08:38 Dose: 5 mg Documented By: AIDE Pharmacy Consult (Consult Rx Perform Med Rec) 1 each MISCELLANE ONCE PRN PRN Reason: Consult order Pharmacy Consult (Consult Rx Vancomycin Dosing) 1 each MISCELLANE DAILY PRN PRN Reason: Consult order Sodium Chloride (0.9 % Sodium Chloride Flush 3 Ml Syringe) 3 ml IVFLUSH QSHIFT [facility] Last Admin: 02/16/22 08:39 Dose: 3 ml Documented By: AIDE Tamsulosin HCl (Tamsulosin Hcl 0.4 Mg Capsule) 0.4 mg PO BEDTIME [facility] Last Admin: 02/15/22 20:26 Dose: 0.4 mg Documented By: JUICE Trazodone HCl (Trazodone Hcl 100 Mg Tablet) 100 mg PO BEDTIME PRN PRN Reason: Insomnia Trazodone HCl (Trazodone Hcl 100 Mg Tablet) 300 mg PO BEDTIME [facility] Last Admin: 02/15/22 20:26 Dose: 300 mg Documented By: JUICE Labs CBC & Chem 7: 02/15/22 05:55 02/16/22 06:11 Labs: Laboratory Results - last 24 hr 02/15/22 02/15/22 02/15/22 11:24 16:25 20:42 Anion Gap Estim Creat Clear Calc Estimated GFR POC Glucose 182 H 112 289 H Random Glucose Calcium Random Vancomycin 02/15/22 02/16/22 02/16/22 20:57 06:11 07:11 Anion Gap 14 Estim Creat Clear Calc 113.0 Estimated GFR > 60 POC Glucose 81 Random Glucose 89 D Calcium 8.5 Random Vancomycin < 3.0 L Microbiology Microbiology Results: Microbiology 02/14/22 11:36 Blood Culture - Final Blood - Venous Staphylococcus aureus 02/13/22 17:59 Blood Culture - Preliminary Blood - Venous Staphylococcus aureus Coag negative Staphylococcus 02/13/22 17:59 Blood Culture - Final Blood - Venous Staphylococcus aureus Staphylococcus hominis ssp alison 02/14/22 11:43 Blood Culture - Preliminary Blood - Venous No growth after 24 hours. Assessment and Plan (1) Hypokalemia: Status: Acute (2) Gram-positive bacteremia: Status: Acute (3) Surgical site infection: Status: Acute (4) Rhabdomyolysis: Status: Acute Plan 71-year-old male with extensive past medical history as mentioned above who presents to the hospital due to increased confusion as well as falls found to have infection at this site or recent surgical intervention of a malleolar fracture that was done on February 03 # Gram-positive bacteremia # surgical site infection Positive blood culture growing Staph, pending final sensitivity Repeat blood cultures 1 set is positive, to repeat cultures again continue broad-spectrum antibiotics Pending ID evaluation orthopedic surgical team consult ed # rhabdomyolysis From frequent fall Discontinue IV fluids Trended down CPK # hypokalemia Improved after replacement follow BMP # frequent falls had multiple admissions in the past for the same head CT neg PT prior to discharge # history of opioid use disorder Urine positive for fentanyl and opioids continue methadone # hypertension elevated resume home meds # HLD continue statin # diabetes continue home insulin, hold oral antihyperglycemics start low-dose sliding scale insulin diabetic diet DVT prophylaxis SCDs for possible intervention by surgery The patient will need overnight hospital stay for management of surgical site infection and positive blood culture pending final blood cultures to prevent possible decompensation in to severe sepsis. Quality Stroke Does the patient have a stroke diagnosis?: No VTE Prior VTE?: No VTE Risk Level:: Medical - moderate - high VTE Device Contraindication: Treatment Not Tolerated VTE Drug Contraindication: Treatment Not Indicated
[2022-02-16] MEDS: vancomycin HCL 1,250 MG in 0.9 % Sodium Chloride 250 ML 166.67 MG IV (11:24)
[2022-02-16 11:36] VITALS: BP 171/82; PULSE 74; RESP 16; TEMP 37.4; O2SAT 95
[2022-02-16 12:50] LABS: Glucose, Whole Blood 170 mg/dL (60-115)
--- NOTE | 2022-02-16 12:51 | W.PM.IDCN ---
History of Present Illness Data of Consult Service Date: 02/16/22 Requesting physician: Riley Agrawal Primary Care Provider: Jax Moe MD HPI Reason for consult: MSSA bacteremia He presents to hospital after fall at home. He was found by daughter to be on floor and came to ER same day. He is sleepy and confused. Blood 02/13 and 02/14 show MSSA with some coagulase negative on 02/13. He had surgery trimalleolar fracture repaired on 02/[address] Lee. He had splint and felt splint felt wet last day but says did not get water in splint. He has rhabdomyolysis. Review of Systems Review of Systems: Yes all other systems are reviewed and are negative and unobtainable due to endotracheal tube PMFSH Past Medical History Medical History Anxiety CAD (coronary artery disease) COPD (chronic obstructive pulmonary disease) Genital herpes JAUN (obstructive sleep apnea) Pancreatic abnormality Family History Family History Mother No problems noted. Father Liver cancer Family history: reviewed and not pertinent Surgical History Surgical History No history of previous surgery Social History Social History Household Members: None Housing: Apartment Do you presently have visiting nurse or other home services: No Alcohol intake: never Patient Tobacco Use Status: Current everyday Tobacco user Tobacco use type: Cigarette Cigarettes Per Day: 3 Smoked in Last 30 Days: Yes e-Cigarette/Vaping Use: Currently Using Patient Interested in Nicotine Replacement: No Patient Given Instructions on How to Stop Smoking: No Second Hand Smoke Exposure: No Use of substances other than those prescribed or required for medical reasons: Unknown Substance Use Type: Heroin Currently Displaying Signs/Symptoms of Drug Intoxication Withdrawal: No Any prior treatment program specific to substance use: No Have you been hit, kicked, punched, or otherwise hurt by someone within the past year? If so, by whom?: No Do you feel safe in your current relationship?: No Current Relationship Is there a partner from a previous relationship who is making you feel unsafe now?: No Advance Directives: Yes Advance Directives Information Provided: No Advance Directives on File: Yes Advance Directives Date on File: 01/28/22 Do you have thoughts of harming others: None Do you have a plan to hurt others: No Plan Recently lost weight without trying: No Eating poorly because of decreased appetite: No Nutrition Risks: No Nutritional Risk Poor oral hygiene: No service: No Current occupational status: retired and disabled Current occupation: right handed Meds Allergies Allergy/AdvReac Type Severity Reaction Status Date / Time No Known Allergies Allergy Verified 01/27/22 11:10 Active Medications: Current Medications Acetaminophen (Acetaminophen 325 Mg Tablet) 650 mg PO Q6H PRN PRN Reason: Pain, Mild (Pain Scale 1-3) Last Admin: 02/15/22 20:58 Dose: 650 mg Amlodipine Besylate (Amlodipine Besylate 10 Mg Tablet) 10 mg PO BEDTIME [facility]; Protocol Last Admin: 02/15/22 20:26 Dose: 10 mg Artificial Tears (Artificial Tears 15 Ml Drops) 1 drop EYE-BOTH QID [facility] Last Admin: 02/16/22 08:40 Dose: 1 drop Aspirin (Aspirin Enteric Coated 81 Mg Tablet.Dr) 81 mg PO DAILY [facility] Last Admin: 02/16/22 08:38 Dose: 81 mg Atorvastatin Calcium (Atorvastatin Calcium 40 Mg Tablet) 40 mg PO BEDTIME [facility] Last Admin: 02/15/22 20:26 Dose: 40 mg Buprenorphine/Naloxone (Buprenorphine/Naloxone 8/2 Mg Film) 1 film SUBLINGUAL BID [facility] Last Admin: 02/16/22 08:38 Dose: 1 film Dextrose (Dextrose 50 % 25 Gm/50 Ml Syringe) 25 gm IVPUSH Q15M PRN; Protocol PRN Reason: per Hypoglycemia Standing Ord. Docusate Sodium (Docusate Sodium 100 Mg Capsule) 100 mg PO DAILY PRN PRN Reason: Constipation Dorzolamide/Timolol (Dorzolamide/Timolo 2.23%/0.68% 10 Ml Drbtl) 1 drop EYE-BOTH BID [facility] Last Admin: 02/16/22 08:40 Dose: 1 drop Ferrous Sulfate (Ferrous Sulfate 300 Mg/5 Ml Liquid) 150 mg PO DAILY [facility] Last Admin: 02/16/22 08:38 Dose: 150 mg Fluticasone Propionate (Fluticasone Propionate 100 Mcg Blst.W.Dev) 1 puff INHALE BID PRN PRN Reason: Wheezing Glucose (Glucose Gel 15 Gm Gel..Gram.) 15 gm PO Q15M PRN; Protocol PRN Reason: per Hypoglycemia Standing Ord. Hydromorphone HCl (Hydromorphone Hcl 0.5 Mg/0.5 Ml Syringe) 0.5 mg IVPUSH Q4H PRN; Protocol PRN Reason: Pain, Severe (Pain Scale 7-10) Last Admin: 02/16/22 08:41 Dose: 0.5 mg Cefazolin Sodium/Dextrose (Ancef) 2 gm in 50 mls @ 100 mls/hr IV Q8H [facility] Insulin Glargine (Insulin Glargine,Hum.Rec.Anlog 100 Unit/Ml 10 Ml Vial) 45 unit SUBCUT BEDTIME [facility] Last Admin: 02/15/22 20:58 Dose: 45 unit Insulin Human Lispro (Insulin Lispro 100 Unit/Ml 3 Ml Vial) 0 unit SUBCUT QIDACHS [facility]; Protocol Last Admin: 02/16/22 08:05 Dose: Not Given Latanoprost (Latanoprost 0.005 % Ophth Yari 2.5 Ml Drops) 1 drop EYE-BOTH BEDTIME [facility] Last Admin: 02/15/22 23:20 Dose: 1 drop Lisinopril (Lisinopril 40 Mg Tablet) 40 mg PO DAILY [facility]; Protocol Last Admin: 02/16/22 08:39 Dose: 40 mg Loratadine (Loratadine 10 Mg Tablet) 10 mg PO DAILY [facility] Last Admin: 02/16/22 08:39 Dose: 10 mg Metformin HCl (Metformin Hcl 1,000 Mg Tablet) 1,000 mg PO BID [facility] Last Admin: 02/16/22 08:38 Dose: 1,000 mg Metoprolol Succinate (Metoprolol Succinate Er 25 Mg Tab.Er.24h) 25 mg PO DAILY [facility]; Protocol Last Admin: 02/16/22 08:38 Dose: 25 mg Multivitamins/Vitamin C (Multivitamin Tablet) 1 tab PO DAILY [facility] Last Admin: 02/16/22 08:38 Dose: 1 tab Olanzapine (Olanzapine 5 Mg Tablet) 5 mg PO BEDTIME [facility] Last Admin: 02/15/22 20:26 Dose: 5 mg Omeprazole (Omeprazole 20 Mg Capsule.Dr) 20 mg PO DAILY@0630 [facility] Last Admin: 02/16/22 05:42 Dose: 20 mg Ondansetron HCl (Ondansetron Hcl 4 Mg/2 Ml Vial) 4 mg IVPUSH Q8H PRN PRN Reason: Nausea and Vomiting Oxybutynin Chloride (Oxybutynin Chloride Er 5 Mg Tab.Er.24) 5 mg PO DAILY [facility] Last Admin: 02/16/22 08:38 Dose: 5 mg Pharmacy Consult (Consult Rx Perform Med Rec) 1 each MISCELLANE ONCE PRN PRN Reason: Consult order Pharmacy Consult (Consult Rx Vancomycin Dosing) 1 each MISCELLANE DAILY PRN PRN Reason: Consult order Sodium Chloride (0.9 % Sodium Chloride Flush 3 Ml Syringe) 3 ml IVFLUSH QSHIFT [facility] Last Admin: 02/16/22 08:39 Dose: 3 ml Tamsulosin HCl (Tamsulosin Hcl 0.4 Mg Capsule) 0.4 mg PO BEDTIME [facility] Last Admin: 02/15/22 20:26 Dose: 0.4 mg Trazodone HCl (Trazodone Hcl 100 Mg Tablet) 100 mg PO BEDTIME PRN PRN Reason: Insomnia Trazodone HCl (Trazodone Hcl 100 Mg Tablet) 300 mg PO BEDTIME [facility] Last Admin: 02/15/22 20:26 Dose: 300 mg Home Medications Medication Instructions Recorded Confirmed Last Taken Type aspirin 81 mg tablet,delayed 81 mg PO DAILY 06/06/20 02/13/22 03/26/21 History release lisinopril 40 mg tablet 40 mg PO DAILY 06/06/20 02/13/22 03/26/21 History metoprolol succinate 25 mg 25 mg PO DAILY 06/06/20 02/13/22 03/26/21 History tablet,extended release 24 hr sennosides 8.6 mg capsule (senna) 8.6 mg PO BEDTIME PRN Constipation 06/06/20 02/13/22 Unknown History buprenorphine 8 mg-naloxone 2 mg 1 film sublingual BID 12/06/20 02/13/22 03/26/21 History sublingual film amlodipine 10 mg tablet 10 mg PO BEDTIME 03/26/21 02/13/22 03/25/21 History atorvastatin 40 mg tablet 40 mg PO BEDTIME 03/26/21 02/13/22 03/25/21 History dorzolamide 22.3 mg-timolol 6.8 1 drp ophthalmic (eye) BID 03/26/21 02/13/22 03/26/21 History mg/mL eye drops fluticasone propionate 110 1 puff PO BID PRN Wheezing 03/26/21 02/13/22 Unknown History mcg/actuation HFA aerosol inhaler (Flovent HFA) glipizide 5 mg tablet, extended 5 mg PO DAILY 03/26/21 02/13/22 03/26/21 History release 24 hr insulin detemir U-100 100 unit/mL 80 unit subcut BEDTIME 03/26/21 02/13/22 03/25/21 History subcutaneous solution (Levemir U-100 Insulin) latanoprost 0.005 % eye drops 1 drp ophthalmic (eye) BEDTIME 03/26/21 02/13/22 03/25/21 History metformin 1,000 mg tablet 1,000 mg PO BID 03/26/21 02/13/22 03/26/21 History multivitamin-ferrous 1 tab PO DAILY 03/26/21 02/13/22 03/26/21 History fumarate-folic acid 18 mg-400 mcg tablet (Certavite-Antioxidant) olanzapine 5 mg tablet (Zyprexa) 5 mg PO BEDTIME 03/26/21 02/13/22 03/25/21 History omega-3 fatty acids-fish oil 340 1 cap PO TID 03/26/21 02/13/22 03/26/21 History mg-1,000 mg capsule (Fish Oil) peg [id number] 1 1 drp ophthalmic (eye) QID 03/26/21 02/13/22 03/26/21 History %-0.2 %-0.2 % eye drops (Dry Eye Relief) trazodone 100 mg tablet 100 mg PO BEDTIME PRN Insomnia 03/26/21 02/13/22 03/25/21 History trazodone 150 mg tablet 300 mg PO BEDTIME 03/26/21 02/14/22 03/25/21 History clotrimazole 1 % topical cream 1 appl topical BID 09/11/21 02/13/22 Unknown History loratadine 10 mg tablet 10 mg PO QAM 09/11/21 02/13/22 Unknown History naproxen 500 mg tablet 1 tab PO BID PRN pain 01/27/22 02/13/22 Unknown History Physical Exam Vital Signs: Vital Signs: Last Vital Signs Temp 99.3 F 02/16/22 11:36 Pulse 74 02/16/22 11:36 Resp 16 02/16/22 11:36 BP 171/82 H 02/16/22 11:36 Pulse Ox 95 02/16/22 11:36 O2 Del Method 02/16/22 11:36 BMI result Body Mass Index 29.7 Const: General: cooperative HEENT: Head: Yes normal to inspection Mouth: Normal oral and palatal mucosa present Eyes: General: appearance normal, both eyes and all related structures Resp: Effort & Inspection: normal respiratory effort Cardio: Rate: regular rate Rhythm: regular rhythm GI: Palpation (GI): Soft to palpation and nontender Skin: General skin exam: no rashes or lesions noted Extrem: Other: left ankle cruzito intact bilaterally picture is in chart there is some swelling Results Labs CBC & Chem 7: 02/15/22 05:55 02/16/22 06:11 Labs: BMP 02/16/22 06:11 Sodium 135 Potassium 3.4 Chloride 97 Carbon Dioxide 27 BUN 7 L Creatinine 0.63 Calcium 8.5 Microbiology Microbiology Results: Microbiology 02/14/22 11:36 Blood - Venous Blood Culture - Final Staphylococcus aureus 02/13/22 17:59 Blood - Venous Blood Culture - Preliminary Staphylococcus aureus Coag negative Staphylococcus 02/13/22 17:59 Blood - Venous Blood Culture - Final Staphylococcus aureus Staphylococcus hominis ssp alison 02/14/22 11:43 Blood - Venous Blood Culture - Preliminary No growth after 24 hours. Assessment and Plan (1) MSSA bacteremia: Status: Acute He is postfall and has rhabdomyolysis from lying on floor. He also has had recent ankle fracture due to prior fall. He has MSSA bacteremia,fall and some soft tissue injury I had seen him on 01/28 when fell and had asymptomatic COVID,nothing to do then. Plan Change antibiotics to Kefzol 2 g IV every 8 hours, eight weeks likely. Would also check echo evaluate endocarditis. Orthopedics is following.
[2022-02-16] MEDS: Insulin Lispro 100 UNIT/ML 3 ML VIAL SUBCUT ×2 (13:10→20:15)
[2022-02-16] MEDS: ceFAZolin Sodium/Dextrose,Iso 2 GM/50 ML PIGGYBACK IV ×2 (13:11→20:13)
[2022-02-16 15:24] VITALS: BP 159/76; PULSE 81; RESP 18; TEMP 36.9; O2SAT 96
--- NOTE | 2022-02-16 15:54 | MHC.CM.PN ---
nurse manager of case management ntoe electronic medical record reviewed along with case disuxcssed with hospitlsit and staff nurse . 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
[2022-02-16 16:00] VITALS: RESP 20
[2022-02-16 16:02] LABS: Glucose, Whole Blood 109 mg/dL (60-115)
[2022-02-16 19:23] LABS: Glucose, Whole Blood 207 mg/dL (60-115)
[2022-02-16 19:34] VITALS: BP 176/84; PULSE 76; RESP 20; TEMP 36.1; O2SAT 95
[2022-02-16] MEDS: amLODIPine Besylate 10 MG TABLET PO (20:12)
[2022-02-16] MEDS: traZODone HCL 100 MG TABLET 300 MG PO (20:12)
[2022-02-16] MEDS: OLANZapine 5 MG TABLET PO (20:13)
[2022-02-16] MEDS: Tamsulosin HCL 0.4 MG CAPSULE PO (20:13)
[2022-02-16] MEDS: Atorvastatin Calcium 40 MG TABLET PO (20:13)
[2022-02-16] MEDS: Insulin Glargine,Hum.rec.anlog 100 UNIT/ML 10 ML VIAL 45 UNIT SUBCUT (20:14)
[2022-02-16] MEDS: Latanoprost 0.005 % Ophth Sol 2.5 ML DROPS 1 DROP EYE-BOTH (20:16)
[2022-02-16 21:18] LABS: Vancomycin Random 5.2 mcg/mL (15-20)
[2022-02-17] VITALS (7 sets, daily range): BP systolic 153–173; BP diastolic 72–92; PULSE 58–82; RESP 17–18; TEMP 36.5–37.1; O2SAT 93–96
[2022-02-17] MEDS: ceFAZolin Sodium/Dextrose,Iso 2 GM/50 ML PIGGYBACK IV ×2 (04:43→12:29)
[2022-02-17] MEDS: HYDROmorphone HCl 0.5 MG/0.5 ML SYRINGE IVPUSH ×3 (04:44→21:40)
[2022-02-17] MEDS: Omeprazole 20 MG CAPSULE.DR PO (04:44)
[2022-02-17 06:59] LABS: Hematocrit 29.2 % (42.0-52.0); Hemoglobin 9.7 g/dl (14.0-18.0); Mean Corpuscular HGB Conc 33.2 g/dl (31.0-36.0); Mean Corpuscular Hemoglobin 29.8 pg (27.0-33.0); Mean Corpuscular Volume 89.8 fL (80.0-98.0); Mean Platelet Volume 9.1 fL (9.4-12.4); Platelet Count 504 X10*3/uL (160-400); Red Blood Count 3.25 X10*6/uL (4.60-5.80); Red Cell Distribution Width 12.5 % (11.0-16.0); White Blood Count 12.9 X10*3/uL (4.8-10.8)
--- NOTE | 2022-02-17 07:00 | CA_ITS ---
Transthoracic Echocardiogram Patient (Last, First, Middle): Rosie Garza, Gender: Male Date of : 1950 Age: 71 Procedure Date: 02/17/2022 Procedure Type: Transthoracic Echocardiogram Location: S3E Height: 172.72 cm Weight: 88.45 kg BSA: 2.02 m2 Heart Rate: bpm BP: 171 / 82 mmHg Facing Baster Jumpbasting: NANDINI Referring MD: Maryellen Alan MD Product Marketing Engineer: Paxton King MD Symptoms: endocarditis Study Quality: Adequate ECG Rhythm: Sinus Conclusions: - 1. Normal LV systolic function with grade 1 diastolic dysfunction. 2. Normal cardiac valvular Doppler 3. Study not sensitive for ruling out endocarditis / vegetations 4. No gross pericardial effusion Findings Left Ventricle Normal left ventricular size, thickness, and systolic function. The visually estimated ejection fraction is between 60-65%. Spectral Doppler is indicative of an impaired relaxation filling pattern. E/E prime ratio is <8, consistent with normal filling pressures. Evidence suggests grade I (mild) diastolic dysfunction. Right Ventricle Normal right ventricular cavity size and systolic function. Atria The left atrium is normal in size. There is no evidence of interatrial shunt. The right atrium is normal in size. Aortic Valve The aortic valve structure and function is likely normal. There is no aortic valve stenosis. There is no aortic valve regurgitation. Mitral Valve Likely normal mitral valve structure and function. There is trace mitral valve regurgitation. There is no mitral valve stenosis. Pulmonic Valve The pulmonic valve was not well visualized. Tricuspid Valve The tricuspid valve was not well visualized. Tricuspid regurgitation envelope is inadequate for calculation of right ventricular systolic pressure. Great Vessels All visible segments of the aorta are normal in size. The pulmonary artery was not well visualized. Venous The inferior vena cava was not well visualized. Pericardium/Pleural There is no evidence of pericardial effusion. Prior Study Comparison no previous study in the last 5 years for comparison Recommendations, Care & Conclusions Consider a JENNIFER if clinically appropriate. Measurements 2D Linear Measurements IVSd: 1.06 0.6-0.9/0.6-1.0 cm LVIDd: 5.77 3.9-5.3/4.2-5.9 cm LVIDd Index: 2.86 2.4-3.2/2.2-3.1 cm/m2 LVIDs: 3.14 2.0-3.6 cm LVPWd: 1.13 0.7-1.1 cm LA Diam: 3.70 2.7-3.8/3.0-4.0 cm LAIDs Index: 1.83 1.5-2.3 cm/m2 LV Mass: 324.75 67-162/88-224 g LV Mass Index: 160.77 43-95/49-115 g/m2 LVOT Diam: 2.10 3.0+(-)1.3 cm 2D Systolic Function EF 4C: 67.40 >55% EF 2C: 62.80 >55% EF BiP: 63.70 >55% Mitral Valve MV Pk E: 0.83 MV PK A: 1.14 MV Decel Time: 233.00 E/A: 0.70 E'Lateral: 7.62 E'Medial: 5.44 E/E' Med: 15.20 E/E' Lat: 10.80 PHT: 68.00 MVA PHT: 3.24 Decel Haskell: 3.54 Aortic Valve AoV Pk Jacques: 2.00 AoV Mn Jacques: 1.25 AoV VTI: 0.38 AoV Pk Grad: 16.00 Aov Mn Grad: 7.00 CECE Cont.VTI: 2.52 LVOT LVOT Pk Jacques: 1.43 LVOT Mn Jacques: 0.99 LVOT VTI: 0.28 LVOT Pk Grad: 8.00 LVOT Mn Grad: 5.00 LVOT Diam: 2.10 LVOT Area: 3.46 Diastolic Function MV Pk E: 0.83 MV Pk A: 1.14 E/A: 0.70 E'Medial: 5.44 E/E' Med: 15.20 E' Laterial: 7.62 E/E' Lat: 10.80 Right Ventricle TAPSE (mm): 2.54 TVS' Jacques: 11.60 Great Vessels Aorta Sinus of Valsalva: 3.72 2.0-3.[address] Ridge: 2.88 1.7-3.4 cm Ao Asc: 3.60 2.1-3.4 cm Updated in Other Vendor System with Status of Final Paxton King MD electronically signed on 02/17/2022 4:09:49 PM with status of Final
[2022-02-17 07:17] LABS: Anion Gap 13 (12-20); Blood Urea Nitrogen 7 mg/dL (9-16); Calcium 8.5 mg/dL (8.4-10.2); Carbon Dioxide 31 mmol/L (22-29); Chloride 96 mmol/L (96-108); Creatinine Clr Calc Pharmacy 97.5; Estimated Glomerular Filt Rate > 60; Glucose Random 215 mg/dL (60-115); Sodium 136 mmol/L (135-145)
[2022-02-17 07:35] LABS: Glucose, Whole Blood 172 mg/dL (60-115)
[2022-02-17] MEDS: Aspirin Enteric Coated 81 MG TABLET.DR PO (07:39)
[2022-02-17] MEDS: Ferrous Sulfate 300 MG/5 ML LIQUID 150 MG PO (07:39)
[2022-02-17] MEDS: Buprenorphine/Naloxone 8/2 mg FILM 1 FILM SUBLINGUAL ×2 (07:39→21:42)
[2022-02-17] MEDS: Insulin Lispro 100 UNIT/ML 3 ML VIAL SUBCUT ×4 (07:40→21:08)
[2022-02-17] MEDS: metFORMIN HCl 1,000 MG TABLET 1000 MG PO ×2 (07:40→21:41)
[2022-02-17] MEDS: Loratadine 10 MG TABLET PO (07:40)
[2022-02-17] MEDS: Multivitamin TABLET 1 TAB PO (07:41)
[2022-02-17] MEDS: lisinopriL 40 MG TABLET PO (07:41)
[2022-02-17] MEDS: Metoprolol Succinate ER 25 MG TAB.ER.24H PO (07:41)
[2022-02-17] MEDS: 0.9 % Sodium Chloride Flush 3 ML SYRINGE IVFLUSH ×2 (07:41→17:03)
[2022-02-17] MEDS: Dorzolamide/Timolo 2.23%/0.68% 10 ML DRBTL 1 DROP EYE-BOTH (07:42)
[2022-02-17] MEDS: Artificial Tears 15 ML DROPS 1 DROP EYE-BOTH ×3 (07:42→17:03)
--- NOTE | 2022-02-17 10:02 | P.PNIM_ITS ---
Subjective Subjective Date of Service: 02/17/22 Interval History: the patient was seen and evaluated this morning Laying in bed, feels much better today Improved pain in his left ankle Repeated blood cultures remains negative No reported other overnight events. Systemic review: No fever, chills or weakness No chest pain, palpitation No shortness of breath or coughing No abdominal pain, nausea or vomiting No urinary symptoms Swelling, erythema and tenderness in the ankle Physical Exam Vital Signs: Vital Signs: Last Vital Signs Temp 97.7 F 02/17/22 07:47 Pulse 80 02/17/22 07:47 Resp 18 02/17/22 07:47 BP 154/72 H 02/17/22 07:47 Pulse Ox 93 02/17/22 07:47 O2 Del Method 02/17/22 07:47 BMI result Body Mass Index 29.7 Const: Other: Constitutional : Alert, oriented, not in distress Neck : Normal inspection, Supple Cardiovascular : RRR, no JVP, no lower extremity edema Respiratory : fair bilateral air entry, no crackles, wheezes or rhonchi Gastrointestinal: soft, lax, Normal bowel sounds, Non tender Skin : Warm, Dry, Swelling, erythema and tenderness in the the left ankle with wound cover by dressing Neurological : Alert & oriented x3, No focal deficit , CN 2-12 within normal Objective Data Active Medications Acetaminophen (Acetaminophen 325 Mg Tablet) 650 mg PO Q6H PRN PRN Reason: Pain, Mild (Pain Scale 1-3) Last Admin: 02/15/22 20:58 Dose: 650 mg Documented By: JUICE Amlodipine Besylate (Amlodipine Besylate 10 Mg Tablet) 10 mg PO BEDTIME [facility]; Protocol Last Admin: 02/16/22 20:12 Dose: 10 mg Documented By: JUICE Artificial Tears (Artificial Tears 15 Ml Drops) 1 drop EYE-BOTH QID [facility] Last Admin: 02/17/22 07:42 Dose: 1 drop Documented By: MALICK Aspirin (Aspirin Enteric Coated 81 Mg Tablet.) 81 mg PO DAILY [facility] Last Admin: 02/17/22 07:39 Dose: 81 mg Documented By: MALICK Atorvastatin Calcium (Atorvastatin Calcium 40 Mg Tablet) 40 mg PO BEDTIME [facility] Last Admin: 02/16/22 20:13 Dose: 40 mg Documented By: JUICE Buprenorphine/Naloxone (Buprenorphine/Naloxone 8/2 Mg Film) 1 film SUBLINGUAL BID [facility] Last Admin: 02/17/22 07:39 Dose: 1 film Documented By: MALICK Dextrose (Dextrose 50 % 25 Gm/50 Ml Syringe) 25 gm IVPUSH Q15M PRN; Protocol PRN Reason: per Hypoglycemia Standing Ord. Docusate Sodium (Docusate Sodium 100 Mg Capsule) 100 mg PO DAILY PRN PRN Reason: Constipation Dorzolamide/Timolol (Dorzolamide/Timolo 2.23%/0.68% 10 Ml Drbtl) 1 drop EYE- BOTH BID [facility] Last Admin: 02/17/22 07:42 Dose: 1 drop Documented By: MALICK Ferrous Sulfate (Ferrous Sulfate 300 Mg/5 Ml Liquid) 150 mg PO DAILY [facility] Last Admin: 02/17/22 07:39 Dose: 150 mg Documented By: MALICK Fluticasone Propionate (Fluticasone Propionate 100 Mcg Blst.W.Dev) 1 puff INHALE BID PRN PRN Reason: Wheezing Glucose (Glucose Gel 15 Gm Gel..Gram.) 15 gm PO Q15M PRN; Protocol PRN Reason: per Hypoglycemia Standing Ord. Hydromorphone HCl (Hydromorphone Hcl 0.5 Mg/0.5 Ml Syringe) 0.5 mg IVPUSH Q4H PRN; Protocol PRN Reason: Pain, Severe (Pain Scale 7-10) Last Admin: 02/17/22 04:44 Dose: 0.5 mg Documented By: JUICE Cefazolin Sodium/Dextrose (Ancef) 2 gm in 50 mls @ 100 mls/hr IV Q8H [facility] Last Infusion: 02/17/22 05:25 Dose: 0 mls/hr Documented By: JUICE Insulin Glargine (Insulin Glargine,Hum.Rec.Anlog 100 Unit/Ml 10 Ml Vial) 45 unit SUBCUT BEDTIME [facility] Last Admin: 02/16/22 20:14 Dose: 45 unit Documented By: JUICE Insulin Human Lispro (Insulin Lispro 100 Unit/Ml 3 Ml Vial) 0 unit SUBCUT QIDACHS [facility]; Protocol Last Admin: 02/17/22 07:40 Dose: 2 unit Documented By: MALICK Latanoprost (Latanoprost 0.005 % Ophth Yari 2.5 Ml Drops) 1 drop EYE-BOTH BEDTIME [facility] Last Admin: 02/16/22 20:16 Dose: 1 drop Documented By: JUICE Lisinopril (Lisinopril 40 Mg Tablet) 40 mg PO DAILY [facility]; Protocol Last Admin: 02/17/22 07:41 Dose: 40 mg Documented By: MALICK Loratadine (Loratadine 10 Mg Tablet) 10 mg PO DAILY [facility] Last Admin: 02/17/22 07:40 Dose: 10 mg Documented By: MALICK Metformin HCl (Metformin Hcl 1,000 Mg Tablet) 1,000 mg PO BID [facility] Last Admin: 02/17/22 07:40 Dose: 1,000 mg Documented By: MALICK Metoprolol Succinate (Metoprolol Succinate Er 25 Mg Tab.Er.24h) 25 mg PO DAILY [facility]; Protocol Last Admin: 02/17/22 07:41 Dose: 25 mg Documented By: MALICK Multivitamins/Vitamin C (Multivitamin Tablet) 1 tab PO DAILY [facility] Last Admin: 02/17/22 07:41 Dose: 1 tab Documented By: MALICK Olanzapine (Olanzapine 5 Mg Tablet) 5 mg PO BEDTIME [facility] Last Admin: 02/16/22 20:13 Dose: 5 mg Documented By: JUICE Omeprazole (Omeprazole 20 Mg Capsule.Dr) 20 mg PO DAILY@0630 [facility] Last Admin: 02/17/22 04:44 Dose: 20 mg Documented By: JUICE Ondansetron HCl (Ondansetron Hcl 4 Mg/2 Ml Vial) 4 mg IVPUSH Q8H PRN PRN Reason: Nausea and Vomiting Oxybutynin Chloride (Oxybutynin Chloride Er 5 Mg Tab.Er.24) 5 mg PO DAILY [facility] Last Admin: 02/17/22 07:40 Dose: 5 mg Documented By: MALICK Pharmacy Consult (Consult Rx Perform Med Rec) 1 each MISCELLANE ONCE PRN PRN Reason: Consult order Pharmacy Consult (Consult Rx Vancomycin Dosing) 1 each MISCELLANE DAILY PRN PRN Reason: Consult order Sodium Chloride (0.9 % Sodium Chloride Flush 3 Ml Syringe) 3 ml IVFLUSH QSHIFT [facility] Last Admin: 02/17/22 07:41 Dose: 3 ml Documented By: MALICK Tamsulosin HCl (Tamsulosin Hcl 0.4 Mg Capsule) 0.4 mg PO BEDTIME [facility] Last Admin: 02/16/22 20:13 Dose: 0.4 mg Documented By: JUICE Trazodone HCl (Trazodone Hcl 100 Mg Tablet) 100 mg PO BEDTIME PRN PRN Reason: Insomnia Trazodone HCl (Trazodone Hcl 100 Mg Tablet) 300 mg PO BEDTIME [facility] Last Admin: 02/16/22 20:12 Dose: 300 mg Documented By: JUICE Labs CBC & Chem 7: 02/17/22 06:07 02/17/22 06:07 Labs: Laboratory Results - last 24 hr 02/16/22 02/16/22 02/16/22 11:32 15:51 19:06 MCV MCH MCHC RDW Plt Count MPV Absolute Nucleated RBC Nucleated RBC % (auto) Anion Gap Estim Creat Clear Calc Estimated GFR POC Glucose 170 H 109 207 H Random Glucose Calcium Random Vancomycin 02/16/22 02/17/22 02/17/22 20:51 06:07 06:07 MCV 89.8 MCH 29.8 MCHC 33.2 RDW 12.5 Plt Count 504 H MPV 9.1 L Absolute Nucleated RBC 0.000 Nucleated RBC % (auto) 0.0 Anion Gap 13 Estim Creat Clear Calc 97.5 Estimated GFR > 60 POC Glucose Random Glucose 215 H D Calcium 8.5 Random Vancomycin 5.2 L 02/17/22 07:08 MCV MCH MCHC RDW Plt Count MPV Absolute Nucleated RBC Nucleated RBC % (auto) Anion Gap Estim Creat Clear Calc Estimated GFR POC Glucose 172 H Random Glucose Calcium Random Vancomycin Microbiology Microbiology Results: Microbiology 02/13/22 17:59 Blood Culture - Final Blood - Venous Staphylococcus aureus Staphylococcus hominis ssp alison 02/14/22 11:43 Blood Culture - Preliminary Blood - Venous No growth after 48 hours. 02/14/22 11:36 Blood Culture - Final Blood - Venous Staphylococcus aureus 02/13/22 17:59 Blood Culture - Final Blood - Venous Staphylococcus aureus Staphylococcus hominis ssp alison Assessment and Plan (1) MSSA bacteremia: Status: Acute (2) Hypokalemia: Status: Acute (3) Positive blood culture: Status: Acute (4) Surgical site infection: Status: Acute (5) Rhabdomyolysis: Status: Acute Plan 71-year-old male with extensive past medical history as mentioned above who presents to the hospital due to increased confusion as well as falls found to have infection at this site or recent surgical intervention of a malleolar fracture that was done on February 03 # Gram-positive bacteremia # surgical site infection Positive blood culture growing MSSA Pending repeat blood cultures continue cefazolin Q 8 for possible total of 6 weeks Appreciated ID evaluation orthopedic surgical team consulted, no intervention needed # rhabdomyolysis From frequent fall Discontinue IV fluids Trended down CPK # hypokalemia Improved after replacement follow BMP # frequent falls had multiple admissions in the past for the same head CT neg PT prior to discharge # history of opioid use disorder Urine positive for fentanyl and opioids continue methadone # hypertension elevated resume home meds # HLD continue statin # diabetes continue home insulin, hold oral antihyperglycemics start low-dose sliding scale insulin diabetic diet DVT prophylaxis SCDs for possible intervention by surgery The patient will need overnight hospital stay for management of surgical site infection and positive blood culture pending final blood cultures to prevent possible decompensation in to severe sepsis. Quality Stroke Does the patient have a stroke diagnosis?: No VTE Prior VTE?: No VTE Risk Level:: Medical - moderate - high VTE Device Contraindication: Treatment Not Tolerated VTE Drug Contraindication: Treatment Not Indicated
[2022-02-17 11:11] LABS: Glucose, Whole Blood 172 mg/dL (60-115)
[2022-02-17] MEDS: Acetaminophen 325 MG TABLET 650 MG PO (12:55)
--- NOTE | 2022-02-17 14:42 | MHC.CM.PN ---
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
[2022-02-17 16:19] LABS: Glucose, Whole Blood 190 mg/dL (60-115)
[2022-02-17 20:28] LABS: Glucose, Whole Blood 309 mg/dL (60-115)
[2022-02-17] MEDS: Insulin Glargine,Hum.rec.anlog 100 UNIT/ML 10 ML VIAL 45 UNIT SUBCUT (21:09)
[2022-02-17] MEDS: OLANZapine 5 MG TABLET PO (21:41)
[2022-02-17] MEDS: amLODIPine Besylate 10 MG TABLET PO (21:41)
[2022-02-17] MEDS: traZODone HCL 100 MG TABLET 300 MG PO (21:42)
[2022-02-18] MEDS: ceFAZolin Sodium/Dextrose,Iso 2 GM/50 ML PIGGYBACK IV ×3 (03:24→22:10)
[2022-02-18 03:31] VITALS: BP 164/71; PULSE 73; RESP 16; TEMP 37.2; O2SAT 95
--- NOTE | 2022-02-18 04:09 | PC.NURSE ---
PT refused 2100 dose of Cefazolin, notified. PT also refused new IV access at this time. PT given 5am dose 1 1/2 hrs early once he agreed to new IV access.
[2022-02-18] MEDS: Omeprazole 20 MG CAPSULE.DR PO (05:28)
[2022-02-18 06:41] LABS: Hematocrit 28.9 % (42.0-52.0); Hemoglobin 9.6 g/dl (14.0-18.0); Mean Corpuscular HGB Conc 33.2 g/dl (31.0-36.0); Mean Corpuscular Hemoglobin 29.4 pg (27.0-33.0); Mean Corpuscular Volume 88.7 fL (80.0-98.0); Mean Platelet Volume 8.7 fL (9.4-12.4); Platelet Count 506 X10*3/uL (160-400); Red Blood Count 3.26 X10*6/uL (4.60-5.80); Red Cell Distribution Width 12.4 % (11.0-16.0); White Blood Count 13.1 X10*3/uL (4.8-10.8)
[2022-02-18 07:03] LABS: Anion Gap 13 (12-20); Blood Urea Nitrogen 8 mg/dL (9-16); Calcium 8.8 mg/dL (8.4-10.2); Carbon Dioxide 31 mmol/L (22-29); Chloride 97 mmol/L (96-108); Creatinine Clr Calc Pharmacy 107.9; Estimated Glomerular Filt Rate > 60; Glucose Random 122 mg/dL (60-115); Potassium 3.6 mmol/L (3.3-5.1); Sodium 137 mmol/L (135-145)
[2022-02-18 08:00] VITALS: BP 158/83; PULSE 81; RESP 18; TEMP 37; O2SAT 95
[2022-02-18 08:27] LABS: Glucose, Whole Blood 133 mg/dL (60-115)
[2022-02-18] MEDS: Buprenorphine/Naloxone 8/2 mg FILM 1 FILM SUBLINGUAL ×2 (08:49→21:51)
[2022-02-18] MEDS: Ferrous Sulfate 300 MG/5 ML LIQUID 150 MG PO (08:49)
[2022-02-18] MEDS: Aspirin Enteric Coated 81 MG TABLET.DR PO (08:51)
[2022-02-18] MEDS: metFORMIN HCl 1,000 MG TABLET 1000 MG PO ×2 (08:51→21:52)
[2022-02-18] MEDS: lisinopriL 40 MG TABLET PO (08:52)
[2022-02-18] MEDS: Loratadine 10 MG TABLET PO (08:52)
[2022-02-18] MEDS: 0.9 % Sodium Chloride Flush 3 ML SYRINGE IVFLUSH ×2 (08:52→16:44)
[2022-02-18] MEDS: Metoprolol Succinate ER 25 MG TAB.ER.24H PO (08:52)
[2022-02-18] MEDS: Multivitamin TABLET 1 TAB PO (08:52)
[2022-02-18] MEDS: HYDROmorphone HCl 0.5 MG/0.5 ML SYRINGE IVPUSH ×3 (08:53→21:52)
[2022-02-18] MEDS: Artificial Tears 15 ML DROPS 1 DROP EYE-BOTH ×3 (08:54→16:45)
[2022-02-18] MEDS: Dorzolamide/Timolo 2.23%/0.68% 10 ML DRBTL 1 DROP EYE-BOTH (08:59)
[2022-02-18 11:58] LABS: Glucose, Whole Blood 206 mg/dL (60-115)
[2022-02-18] MEDS: Insulin Lispro 100 UNIT/ML 3 ML VIAL SUBCUT ×2 (12:40→21:52)
--- NOTE | 2022-02-18 14:23 | MHC.CM.PN ---
PLAN IS 8 WEEKS OF IV KEVZOL Q8H NO PICC OF THIS NOTE REFERRALS UPDATED IN [facility]CRIP[facility]
--- NOTE | 2022-02-18 14:24 | HO.PM.IMPN ---
Subjective Subjective Date of Service: 02/18/22 Interval History: cc: ankle pain interval history: ankle pain Cardiovascular Cardiovascular: Reports no additional cardiovascular complaints Respiratory Respiratory: Reports no additional respiratory complaints Physical Exam Vital Signs: Vital Signs: Last Vital Signs Temp 98.6 F 02/18/22 08:00 Pulse 81 02/18/22 08:00 Resp 18 02/18/22 08:00 BP 158/83 H 02/18/22 08:00 Pulse Ox 95 02/18/22 08:00 O2 Del Method 02/18/22 08:00 BMI result Body Mass Index 29.7 Const: Other: Constitutional : Alert, oriented, not in distress Neck : Normal inspection, Supple Cardiovascular : RRR, no JVP, no lower extremity edema Respiratory : fair bilateral air entry, no crackles, wheezes or rhonchi Gastrointestinal: soft, lax, Normal bowel sounds, Non tender Skin : Warm, Dry, Swelling, erythema and tenderness in the the left ankle with wound cover by dressing Neurological : Alert & oriented x3, No focal deficit , CN 2-12 within normal Objective Data Active Medications Acetaminophen (Acetaminophen 325 Mg Tablet) 650 mg PO Q6H PRN PRN Reason: Pain, Mild (Pain Scale 1-3) Last Admin: 02/17/22 12:55 Dose: 650 mg Documented By: MALICK Amlodipine Besylate (Amlodipine Besylate 10 Mg Tablet) 10 mg PO BEDTIME [facility]; Protocol Last Admin: 02/17/22 21:41 Dose: 10 mg Documented By: SIN Artificial Tears (Artificial Tears 15 Ml Drops) 1 drop EYE-BOTH QID [facility] Last Admin: 02/18/22 12:40 Dose: 1 drop Documented By: AARON Aspirin (Aspirin Enteric Coated 81 Mg Tablet.) 81 mg PO DAILY [facility] Last Admin: 02/18/22 08:51 Dose: 81 mg Documented By: AARON Atorvastatin Calcium (Atorvastatin Calcium 40 Mg Tablet) 40 mg PO BEDTIME [facility] Last Admin: 02/17/22 21:21 Dose: Not Given Documented By: SIN Non-Admin Reason: Patient Refused Buprenorphine/Naloxone (Buprenorphine/Naloxone 8/2 Mg Film) 1 film SUBLINGUAL BID [facility] Last Admin: 02/18/22 08:49 Dose: 1 film Documented By: AARON Dextrose (Dextrose 50 % 25 Gm/50 Ml Syringe) 25 gm IVPUSH Q15M PRN; Protocol PRN Reason: per Hypoglycemia Standing Ord. Docusate Sodium (Docusate Sodium 100 Mg Capsule) 100 mg PO DAILY PRN PRN Reason: Constipation Dorzolamide/Timolol (Dorzolamide/Timolo 2.23%/0.68% 10 Ml Drbtl) 1 drop EYE-BOTH BID [facility] Last Admin: 02/18/22 08:59 Dose: 1 drop Documented By: AARON Ferrous Sulfate (Ferrous Sulfate 300 Mg/5 Ml Liquid) 150 mg PO DAILY [facility] Last Admin: 02/18/22 08:49 Dose: 150 mg Documented By: AARON Fluticasone Propionate (Fluticasone Propionate 100 Mcg Blst.W.Dev) 1 puff INHALE BID PRN PRN Reason: Wheezing Glucose (Glucose Gel 15 Gm Gel..Gram.) 15 gm PO Q15M PRN; Protocol PRN Reason: per Hypoglycemia Standing Ord. Hydromorphone HCl (Hydromorphone Hcl 0.5 Mg/0.5 Ml Syringe) 0.5 mg IVPUSH Q4H PRN; Protocol PRN Reason: Pain, Severe (Pain Scale 7-10) Last Admin: 02/18/22 08:53 Dose: 0.5 mg Documented By: AARON Cefazolin Sodium/Dextrose (Ancef) 2 gm in 50 mls @ 100 mls/hr IV Q8H [facility] Last Admin: 02/18/22 12:41 Dose: 100 mls/hr Documented By: AARON Insulin Glargine (Insulin Glargine,Hum.Rec.Anlog 100 Unit/Ml 10 Ml Vial) 45 unit SUBCUT BEDTIME [facility] Last Admin: 02/17/22 21:09 Dose: 45 unit Documented By: SIN Insulin Human Lispro (Insulin Lispro 100 Unit/Ml 3 Ml Vial) 0 unit SUBCUT QIDACHS [facility]; Protocol Last Admin: 02/18/22 12:40 Dose: 4 unit Documented By: AARON Latanoprost (Latanoprost 0.005 % Ophth Yari 2.5 Ml Drops) 1 drop EYE-BOTH BEDTIME [facility] Last Admin: 02/17/22 21:20 Dose: Not Given Documented By: SIN Non-Admin Reason: Patient Refused Lisinopril (Lisinopril 40 Mg Tablet) 40 mg PO DAILY [facility]; Protocol Last Admin: 02/18/22 08:52 Dose: 40 mg Documented By: AARON Loratadine (Loratadine 10 Mg Tablet) 10 mg PO DAILY [facility] Last Admin: 02/18/22 08:52 Dose: 10 mg Documented By: AARON Metformin HCl (Metformin Hcl 1,000 Mg Tablet) 1,000 mg PO BID [facility] Last Admin: 02/18/22 08:51 Dose: 1,000 mg Documented By: AARON Metoprolol Succinate (Metoprolol Succinate Er 25 Mg Tab.Er.24h) 25 mg PO DAILY [facility]; Protocol Last Admin: 02/18/22 08:52 Dose: 25 mg Documented By: AARON Multivitamins/Vitamin C (Multivitamin Tablet) 1 tab PO DAILY [facility] Last Admin: 02/18/22 08:52 Dose: 1 tab Documented By: AARON Olanzapine (Olanzapine 5 Mg Tablet) 5 mg PO BEDTIME [facility] Last Admin: 02/17/22 21:41 Dose: 5 mg Documented By: SIN Omeprazole (Omeprazole 20 Mg Capsule.Dr) 20 mg PO DAILY@0630 [facility] Last Admin: 02/18/22 05:28 Dose: 20 mg Documented By: SIN Ondansetron HCl (Ondansetron Hcl 4 Mg/2 Ml Vial) 4 mg IVPUSH Q8H PRN PRN Reason: Nausea and Vomiting Oxybutynin Chloride (Oxybutynin Chloride Er 5 Mg Tab.Er.24) 5 mg PO DAILY [facility] Last Admin: 02/18/22 08:49 Dose: 5 mg Documented By: AARON Pharmacy Consult (Consult Rx Perform Med Rec) 1 each MISCELLANE ONCE PRN PRN Reason: Consult order Pharmacy Consult (Consult Rx Vancomycin Dosing) 1 each MISCELLANE DAILY PRN PRN Reason: Consult order Sodium Chloride (0.9 % Sodium Chloride Flush 3 Ml Syringe) 3 ml IVFLUSH QSHIFT [facility] Last Admin: 02/18/22 08:52 Dose: 3 ml Documented By: AARON Tamsulosin HCl (Tamsulosin Hcl 0.4 Mg Capsule) 0.4 mg PO BEDTIME [facility] Last Admin: 02/17/22 21:20 Dose: Not Given Documented By: SIN Non-Admin Reason: Patient Refused Trazodone HCl (Trazodone Hcl 100 Mg Tablet) 100 mg PO BEDTIME PRN PRN Reason: Insomnia Trazodone HCl (Trazodone Hcl 100 Mg Tablet) 300 mg PO BEDTIME [facility] Last Admin: 02/17/22 21:42 Dose: 300 mg Documented By: SIN Labs CBC & Chem 7: 02/18/22 06:02 02/18/22 06:02 Labs: Laboratory Results - last 24 hr 02/17/22 02/17/22 02/18/22 15:31 20:20 06:02 MCV 88.7 MCH 29.4 MCHC 33.2 RDW 12.4 Plt Count 506 H MPV 8.7 L Absolute Nucleated RBC 0.000 Nucleated RBC % (auto) 0.0 Anion Gap Estim Creat Clear Calc Estimated GFR POC Glucose 190 H 309 H Random Glucose Calcium 02/18/22 02/18/22 02/18/22 06:02 08:14 11:47 MCV MCH MCHC RDW Plt Count MPV Absolute Nucleated RBC Nucleated RBC % (auto) Anion Gap 13 Estim Creat Clear Calc 107.9 Estimated GFR > 60 POC Glucose 133 H 206 H Random Glucose 122 H D Calcium 8.8 Microbiology Microbiology Results: Microbiology 02/16/22 08:20 Blood Culture - Preliminary Blood - Venous No growth after 48 hours. 02/16/22 08:20 Blood Culture - Preliminary Blood - Venous No growth after 48 hours. Assessment and Plan (1) MSSA bacteremia: Status: Acute (2) Hypokalemia: Status: Acute (3) Positive blood culture: Status: Acute (4) Surgical site infection: Status: Acute (5) Rhabdomyolysis: Status: Acute Plan 71-year-old male with extensive past medical history as mentioned above who presents to the hospital due to increased confusion as well as falls found to have infection at this site or recent surgical intervention of a malleolar fracture that was done on February 03 MSSA bacteremia due to surgical site infection negative from 02/16/22 cefazolin 2gm Q 8 IV for total of 8 weeks, day , end april 12, 2022 orthopedic surgical team consulted, no intervention needed awaiting placement confirmation prior to picc line NWB LLE rhabdomyolysis resolved hypokalemia Improved after replacement frequent falls had multiple admissions in the past for the same head CT neg opioid dependence suboxone hypertension lisinopril, toprol, amlodipine HLD continue statin diabetes basal bolus insulin bph flomax mood disorder zyprexa copd stable, as needed bronchodilators DVT prophylaxis lovenox full code reason for continued hospitalization: needs iv abx for blood stream infection, awaiting set up for dispo Quality Stroke Does the patient have a stroke diagnosis?: No VTE Prior VTE?: No VTE Risk Level:: Medical - moderate - high VTE Device Contraindication: Treatment Not Tolerated VTE Drug Contraindication: Treatment Not Indicated
--- NOTE | 2022-02-18 15:20 | PC.NURSE ---
Alert and oriented. C/O left ankle pain, medicated per OCT with good effect. Took all schedule meds. Continue on IV ABT, no adverse reactions noted. Slept most of the day, continue with NWB to LLE. Stand pivot to commode. Awaiting PICC line placement. Will continue to monitor and treat per plan of care.
[2022-02-18 15:35] VITALS: BP 141/86; PULSE 83; RESP 20; TEMP 36.7; O2SAT 96
[2022-02-18 16:12] LABS: Glucose, Whole Blood 126 mg/dL (60-115)
[2022-02-18 19:19] VITALS: BP 163/86; PULSE 83; RESP 18; TEMP 37.2; O2SAT 96
[2022-02-18 20:00] VITALS: BP 163/86; PULSE 83; RESP 18; TEMP 37.2; O2SAT 96
[2022-02-18 20:03] LABS: Glucose, Whole Blood 313 mg/dL (60-115)
[2022-02-18] MEDS: amLODIPine Besylate 10 MG TABLET PO (21:51)
[2022-02-18] MEDS: Atorvastatin Calcium 40 MG TABLET PO (21:51)
[2022-02-18] MEDS: Insulin Glargine,Hum.rec.anlog 100 UNIT/ML 10 ML VIAL 45 UNIT SUBCUT (21:51)
[2022-02-18] MEDS: OLANZapine 5 MG TABLET PO (21:52)
[2022-02-18] MEDS: traZODone HCL 100 MG TABLET 300 MG PO (21:52)
[2022-02-18] MEDS: Tamsulosin HCL 0.4 MG CAPSULE PO (21:52)
[2022-02-19] MEDS: 0.9 % Sodium Chloride Flush 3 ML SYRINGE IVFLUSH ×3 (00:12→17:36)
[2022-02-19] MEDS: ceFAZolin Sodium/Dextrose,Iso 2 GM/50 ML PIGGYBACK IV ×3 (05:57→20:43)
[2022-02-19] MEDS: Omeprazole 20 MG CAPSULE.DR PO (05:57)
[2022-02-19 07:32] VITALS: BP 154/75; PULSE 81; RESP 18; TEMP 36.3; O2SAT 95
[2022-02-19] MEDS: Acetaminophen 325 MG TABLET 650 MG PO ×2 (07:47→20:34)
[2022-02-19] MEDS: metFORMIN HCl 1,000 MG TABLET 1000 MG PO ×2 (07:49→20:36)
[2022-02-19] MEDS: Metoprolol Succinate ER 25 MG TAB.ER.24H PO (07:49)
[2022-02-19] MEDS: Multivitamin TABLET 1 TAB PO (07:49)
[2022-02-19] MEDS: Loratadine 10 MG TABLET PO (07:49)
[2022-02-19] MEDS: lisinopriL 40 MG TABLET PO (07:50)
[2022-02-19] MEDS: Aspirin Enteric Coated 81 MG TABLET.DR PO (07:51)
[2022-02-19] MEDS: Ferrous Sulfate 300 MG/5 ML LIQUID 150 MG PO (07:51)
[2022-02-19] MEDS: Buprenorphine/Naloxone 8/2 mg FILM 1 FILM SUBLINGUAL ×2 (07:51→20:34)
[2022-02-19 07:53] LABS: Glucose, Whole Blood 186 mg/dL (60-115)
[2022-02-19] MEDS: HYDROmorphone HCl 0.5 MG/0.5 ML SYRINGE IVPUSH ×3 (07:53→22:44)
[2022-02-19] MEDS: Insulin Lispro 100 UNIT/ML 3 ML VIAL SUBCUT ×3 (07:53→20:34)
[2022-02-19] MEDS: Artificial Tears 15 ML DROPS 1 DROP EYE-BOTH ×4 (07:59→20:46)
[2022-02-19] MEDS: Dorzolamide/Timolo 2.23%/0.68% 10 ML DRBTL 1 DROP EYE-BOTH ×2 (07:59→20:46)
--- NOTE | 2022-02-19 08:44 | PM.PNORT ---
Subjective Subjective Date of Service: 02/19/22 Interval history: Patient resting comfortably in bed. Currently admitted for MSSA bacteremia pending PICC line forceps own x8 weeks. Patient also also pending rehab placement. He is status post left ankle by malleolar ORIF on 02/03/[address] Lee. Patient reports continued pain but is managed. No additional complaints. Physical Exam Vital Signs: Vital Signs: Last Vital Signs Temp 97.4 F 02/19/22 07:32 Pulse 81 02/19/22 07:32 Resp 18 02/19/22 07:32 BP 154/75 H 02/19/22 07:32 Pulse Ox 95 02/19/22 07:32 O2 Del Method 02/19/22 07:32 BMI result Body Mass Index 29.7 Const: General: cooperative, healthy appearing and no acute distress Resp: Effort & Inspection: normal respiratory effort and able to speak in complete sentences Cardio: Rate: regular rate Peripheral pulses: Peripheral pulses 2+ throughout GI: Palpation (GI): Soft to palpation Skin: Lesions: no lesions Rashes: no rashes Extrem: Other: Left ankle incision sites are intact. [place] intact. Continues to have circumferential edema. No active drainage. Sensation is intact. Pedal pulse intact. Procedures Date of Service Date of Service: 02/19/22 Progress Note: A&P Assessment and plan (1) MSSA bacteremia: Status: Acute (2) Hypokalemia: Status: Acute (3) Gram-positive bacteremia: Status: Acute (4) Positive blood culture: Status: Acute (5) Rhabdomyolysis: Status: Acute (6) Surgical site infection: Status: Acute (7) Falls frequently: Status: Acute (8) Opioid dependence on agonist therapy: Status: Acute (9) Diabetes mellitus: Status: Acute (10) Hypertension: Status: Acute (11) Bimalleolar ankle fracture: Status: Acute Plan Patient resting comfortably in bed. Currently admitted for MSSA bacteremia pending PICC line forceps own x8 weeks. Patient also also pending rehab placement. He is status post left ankle by malleolar ORIF on 02/03/[address] Lee. Patient reports continued pain but is managed. Incision site is clean dry and intact. Sunitha remain intact. Sunitha remain in place until better surrounding skin healing has occurred. He will follow-up in the outpatient clinic after discharge to rehab facility. Orthopedics will continue to follow. Time Spent With Patient Time: Total time spent is greater than 50% in coordination of care (as documented) at patient's floor/unit and/or counseling patient: Quality Stroke Does the patient have a stroke diagnosis?: No VTE Prior VTE?: No VTE Risk Level:: Medical - moderate - high VTE Device Contraindication: Treatment Not Tolerated VTE Drug Contraindication: Treatment Not Indicated
--- NOTE | 2022-02-19 09:45 | P.PICC_ITS ---
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 Following completion of [place] Protocol the skin and soft tissues were anesthetized with 1% Lidocaine plain. Using ultrasound guidance, BASILIC vein access was obtained IN SINGLE ATTEMPT BY THIS RN. Over an 0.018 wire through peel-away sheath, a 4-MEXICAN, SINGLE LUMEN, PASV PICC line was positioned. Catheter length is 42 CM internal length, 0 CM external length, for a total trimmed length of 42 CM. The procedure was performed in S-272. Tip verification was performed by Ebony Aguila with Zuhair 3CG. Tip located in SVC. Ultrasound was used to document vein patency and for needle entry. A formal ultrasound picture and cardiac rhythm strip was recorded. [employer] Game Director has released the line for use and it is currently dressed with a StatLock, Tegaderm, and CHG disc. Verification has been performed for blood return and line patency. Arm Circumference: 30 CM Equipment: [employer] POWERPICC SOLO Catheter Type: 4-MEXICAN, SINGLE LUMEN, PASV Lot #: [id number]
--- NOTE | 2022-02-19 11:12 | PM.DS ---
DS: Providers Provider Date of Service: 02/20/22 Date of admission: 02/13/22 21:05 Primary care physician: Jax Moe MD Consults: 02/13/22 21:05 Consult to Orthopedics Routine Consulting Provider: Jigar Lee Reason for consultation: surgical wound infection Has provider been notified: Yes 02/15/22 10:49 Consult to Infectious Diseases Routine Consulting Provider: Maryellen Alan Reason for consultation: surgical wound infection, GPC bacteremia for eval and rec DS: Diagnosis Discharge Diagnosis (1) MSSA bacteremia: Status: Acute (2) Hypokalemia: Status: Acute (3) Gram-positive bacteremia: Status: Acute (4) Positive blood culture: Status: Acute (5) Rhabdomyolysis: Status: Acute (6) Surgical site infection: Status: Acute (7) Falls frequently: Status: Acute (8) Opioid dependence on agonist therapy: Status: Acute (9) Diabetes mellitus: Status: Acute (10) Hypertension: Status: Acute (11) Bimalleolar ankle fracture: Status: Acute DS: Summary Hospital Course Hospital Course: from initial hpi: Chief Complaint: falls, increased confusion ?this is a 71-year-old male with an extensive past medical history that includes asthma, HTN, HLD, diabetes, opioid use disorder, and history of frequent falls who was recently ? Seen in the hospital after having ankle fracture and underwent ORIF of the left ankle on 02/03.? He signed out AMA on 02/04.? patient returns today after family noticed patient to have increased confusion, increased falls, he has a splint on the left ankle.? He reports that he has significant pain in the left ankle, he otherwise denies any headache, no change in vision, he feels feverish, chills, no chest pain, no abdominal pain nausea or vomiting, no diarrhea constipation, trouble peeing,? And no other urinary symptoms.? ? On arrival and removal of the splint on his left lower extremity, patient was found to have significant infection around the surgical site. On arrival to the ED patient hemodynamically stable with no significant abnormal vitals Labs are significant for WBC count of 13.6, hemoglobin of 10.4, sodium of 129, BUN of 20, AST of 145, ALT of 69, CPK of 2295, ?UA negative, UDS positive for opioids, fentanyl, Venous duplex negative, imaging including abdominal, pelvis, chest, head and cervical spine CT have all been negative, Ankle x-ray shows status post or of the medial malleolar and distal fibular fractures with intact fixation and unchanged alignment. ? Orthopedic was consulted and patient will be admitted for further management hospital course: Patient was admitted for left ankle infection complicated by MSSA bacteremia. He was treated with IV cefazolin. Cultures became negative on 02/16/2022. He was seen by Orthopedics who recommended no surgical intervention at this time, recommended nonweightbearing status to left lower extremity, will follow up as outpatient. He was seen by infectious disease who recommended echocardiogram which was negative for vegetation and 8 weeks of IV cefazolin to be completed on 04/12/2022. Patient had PICC line placed in the right upper extremity. He will complete his antibiotic course at [facility]. Patient's rhabdomyolysis resolved. Hypokalemia was replaced. For opiate dependence he will continue on Suboxone. For hypertension who continue lisinopril, Toprol, amlodipine. For hyperlipidemia continue statin. For diabetes he will continue his glipizide and insulin and metformin. For BPH continue Flomax. For his mood disorder continue Zyprexa. For COPD he will continue Flovent. Time Spent with Patient Time attestation: Total time spent providing and/or coordinating discharge services: Discharge coordination time: Greater than 30 minutes Quality: Safe Use of Opioids Does Pt have an Active Cancer Diagnosis on the Problem List?: No Quality: Stroke Does the patient have a stroke diagnosis?: No Physical Exam Vital Signs: Vital Signs: Last Vital Signs Temp 97.4 F 02/19/22 07:32 Pulse 81 02/19/22 07:32 Resp 18 02/19/22 07:32 BP 154/75 H 02/19/22 07:32 Pulse Ox 95 02/19/22 07:32 O2 Del Method 02/19/22 07:32 BMI result Body Mass Index 29.7 Const: General: cooperative, healthy appearing and no acute distress Resp: Effort & Inspection: normal respiratory effort and able to speak in complete sentences Cardio: Rate: regular rate Peripheral pulses: Peripheral pulses 2+ throughout GI: Palpation (GI): Soft to palpation Skin: Lesions: no lesions Rashes: no rashes Extrem: Other: Left ankle incision sites are intact. [place] intact. Continues to have circumferential edema. No active drainage. Sensation is intact. Pedal pulse intact. DS: Data Data Completed and Pending Completed studies during hospitalization [Text1]: Procedures Immobilization of Left Foot using Splint (01/27/22) Reposition Left Fibula with Internal Fixation Device, Open Approach (01/27/22) Reposition Left Tibia with Internal Fixation Device, Open Approach (01/27/22) Labs on day of discharge: Laboratory Results - last 24 hr 02/18/22 02/18/22 02/18/22 11:47 15:38 19:45 POC Glucose 206 H 126 H 313 H 02/19/22 07:34 POC Glucose 186 H Preliminary micro results at discharge 02/16/22 08:20 Blood Culture - Preliminary Blood - Venous No growth after 48 hours. 02/16/22 08:20 Blood Culture - Preliminary Blood - Venous No growth after 48 hours. 02/14/22 11:43 Blood Culture - Preliminary Blood - Venous No growth after 48 hours. Discharge Plan Discharge Patient Disposition: [facility] Discharge Diagnosis: mssa bacteremia, joint infection Referrals: [facility] [Outside] - 1 Week Jax Moe MD [Primary Care Provider] - 1 Week Discharge Medications: New cefazolin in dextrose (iso-os) 2 gram/50 mL Piggyback 2 g IV Q8H 52 Days Qty: 0 0RF Continued ferrous sulfate 15 mg iron (75 mg)/mL drops 2 ml PO DAILY 30 Days Qty: 60 4RF omeprazole 20 mg capsule,delayed release(DR/EC) 20 mg PO DAILY 90 Days Qty: 90 1RF latanoprost 0.005 % drops 1 drp ophthalmic (eye) BEDTIME atorvastatin 40 mg tablet 40 mg PO BEDTIME olanzapine [Zyprexa] 5 mg tablet 5 mg PO BEDTIME glipizide 5 mg tablet extended release 24hr 5 mg PO DAILY trazodone 100 mg tablet 100 mg PO BEDTIME PRN (Reason: Insomnia) amlodipine 10 mg tablet 10 mg PO BEDTIME metformin 1,000 mg tablet 1,000 mg PO BID dorzolamide-timolol 22.3-6.8 mg/mL drops 1 drp ophthalmic (eye) BID fluticasone propionate [Flovent HFA] 110 mcg/actuation HFA aerosol inhaler 1 puff PO BID PRN (Reason: Wheezing) Dry Eye Relief 1-0.2-0.2 % drops 1 drp ophthalmic (eye) QID Levemir U-100 Insulin 100 unit/mL solution 80 unit subcut BEDTIME Fish Oil 340-1,000 mg capsule 1 cap PO TID Certavite-Antioxidant 18-400 mg-mcg tablet 1 tab PO DAILY trazodone 150 mg tablet 300 mg PO BEDTIME lidocaine 4 % adhesive patch,medicated 1 patch topical DAILY PRN (Reason: pain) Qty: 10 0RF Rx Instructions: may leave on for up to 12 hrs aspirin 81 mg tablet,delayed release (DR/EC) 81 mg PO DAILY lisinopril 40 mg tablet 40 mg PO DAILY metoprolol succinate 25 mg tablet extended release 24 hr 25 mg PO DAILY senna 8.6 mg capsule 8.6 mg PO BEDTIME PRN (Reason: Constipation) buprenorphine-naloxone 8-2 mg film 1 film sublingual BID clotrimazole 1 % cream 1 appl topical BID loratadine 10 mg tablet 10 mg PO QAM oxybutynin chloride 5 mg tablet extended release 24hr 5 mg PO DAILY 90 Days Qty: 90 3RF tamsulosin 0.4 mg capsule 0.4 mg PO BEDTIME 90 Days Qty: 90 3RF Discontinued naproxen 500 mg tablet 1 tab PO BID PRN (Reason: pain) Discharge Orders: Discharge Order (Routine); Ordered 02/19/22 Ordered By: Anthony Antoine Diet: advance to usual diet Activity on Discharge: NWEdy MELENDEZ Stand Alone Forms: Patient Portal Discharge page Care Plan Goals: recovery Health Concerns: mssa bacteremia left ankle infection Plan of Treatment: cefazolin 2gm q8 via picc until april 12, 2022, monitor cbc, bmp weekly, follow up ortho Assessment: see above Discharge Date/Time: 02/20/22 12:23
[2022-02-19 11:20] VITALS: BP 150/79; PULSE 70; RESP 16; TEMP 36.8; O2SAT 97
[2022-02-19 11:57] LABS: Glucose, Whole Blood 172 mg/dL (60-115)
[2022-02-19] MEDS: 0.9 % Sodium Chloride Flush 10 ML SYRINGE 5 ML IVFLUSH ×2 (12:12→20:33)
[2022-02-19 15:10] VITALS: BP 154/85; PULSE 77; RESP 18; TEMP 36.9; O2SAT 96
[2022-02-19 16:07] LABS: Glucose, Whole Blood 133 mg/dL (60-115)
[2022-02-19] MEDS: Enoxaparin Sodium 40 MG/0.4 ML SYRINGE SUBCUT (17:35)
--- NOTE | 2022-02-19 18:20 | HO.PM.IMPN ---
Subjective Subjective Date of Service: 02/19/22 Interval History: cc: ankle pain interval history: ankle pain Cardiovascular Cardiovascular: Reports no additional cardiovascular complaints Respiratory Respiratory: Reports no additional respiratory complaints Physical Exam Vital Signs: Vital Signs: Last Vital Signs Temp 98.4 F 02/19/22 15:10 Pulse 77 02/19/22 15:10 Resp 18 02/19/22 15:10 BP 154/85 H 02/19/22 15:10 Pulse Ox 96 02/19/22 15:10 O2 Del Method 02/19/22 15:10 BMI result Body Mass Index 29.7 Const: General: cooperative, healthy appearing and no acute distress Resp: Effort & Inspection: normal respiratory effort and able to speak in complete sentences Cardio: Rate: regular rate Peripheral pulses: Peripheral pulses 2+ throughout GI: Palpation (GI): Soft to palpation Skin: Lesions: no lesions Rashes: no rashes Extrem: Other: Left ankle incision sites are intact. Sunitha intact. Continues to have circumferential edema. No active drainage. Sensation is intact. Pedal pulse intact. Objective Data Active Medications Acetaminophen (Acetaminophen 325 Mg Tablet) 650 mg PO Q6H PRN PRN Reason: Pain, Mild (Pain Scale 1-3) Last Admin: 02/19/22 07:47 Dose: 650 mg Documented By: BRYSON Amlodipine Besylate (Amlodipine Besylate 10 Mg Tablet) 10 mg PO BEDTIME [facility]; Protocol Last Admin: 02/18/22 21:51 Dose: 10 mg Documented By: DELMY Artificial Tears (Artificial Tears 15 Ml Drops) 1 drop EYE-BOTH QID [facility] Last Admin: 02/19/22 17:50 Dose: 1 drop Documented By: CHRISTINE Aspirin (Aspirin Enteric Coated 81 Mg Tablet.) 81 mg PO DAILY [facility] Last Admin: 02/19/22 07:51 Dose: 81 mg Documented By: BRYSON Atorvastatin Calcium (Atorvastatin Calcium 40 Mg Tablet) 40 mg PO BEDTIME [facility] Last Admin: 02/18/22 21:51 Dose: 40 mg Documented By: DELMY Buprenorphine/Naloxone (Buprenorphine/Naloxone 8/2 Mg Film) 1 film SUBLINGUAL BID [facility] Last Admin: 02/19/22 07:51 Dose: 1 film Documented By: BRYSON Dextrose (Dextrose 50 % 25 Gm/50 Ml Syringe) 25 gm IVPUSH Q15M PRN; Protocol PRN Reason: per Hypoglycemia Standing Ord. Docusate Sodium (Docusate Sodium 100 Mg Capsule) 100 mg PO DAILY PRN PRN Reason: Constipation Dorzolamide/Timolol (Dorzolamide/Timolo 2.23%/0.68% 10 Ml Drbtl) 1 drop EYE-BOTH BID [facility] Last Admin: 02/19/22 07:59 Dose: 1 drop Documented By: BRYSON Enoxaparin Sodium (Enoxaparin Sodium 40 Mg/0.4 Ml Syringe) 40 mg SUBCUT Q24H [facility] Last Admin: 02/19/22 17:35 Dose: 40 mg Documented By: CHRISTINE Ferrous Sulfate (Ferrous Sulfate 300 Mg/5 Ml Liquid) 150 mg PO DAILY [facility] Last Admin: 02/19/22 07:51 Dose: 150 mg Documented By: BRYSON Fluticasone Propionate (Fluticasone Propionate 100 Mcg Blst.W.Dev) 1 puff INHALE BID PRN PRN Reason: Wheezing Glucose (Glucose Gel 15 Gm Gel..Gram.) 15 gm PO Q15M PRN; Protocol PRN Reason: per Hypoglycemia Standing Ord. Hydromorphone HCl (Hydromorphone Hcl 0.5 Mg/0.5 Ml Syringe) 0.5 mg IVPUSH Q4H PRN; Protocol PRN Reason: Pain, Severe (Pain Scale 7-10) Last Admin: 02/19/22 17:35 Dose: 0.5 mg Documented By: CHRISTINE Cefazolin Sodium/Dextrose (Ancef) 2 gm in 50 mls @ 100 mls/hr IV Q8H [facility] Last Infusion: 02/19/22 13:06 Dose: 100 mls/hr Documented By: BRYSON Insulin Glargine (Insulin Glargine,Hum.Rec.Anlog 100 Unit/Ml 10 Ml Vial) 45 unit SUBCUT BEDTIME [facility] Last Admin: 02/18/22 21:51 Dose: 45 unit Documented By: DELMY Insulin Human Lispro (Insulin Lispro 100 Unit/Ml 3 Ml Vial) 0 unit SUBCUT QIDACHS [facility]; Protocol Last Admin: 02/19/22 16:21 Dose: Not Given Documented By: CHRISTINE Non-Admin Reason: No Insulin Coverage Latanoprost (Latanoprost 0.005 % Ophth Yari 2.5 Ml Drops) 1 drop EYE-BOTH BEDTIME [facility] Last Admin: 02/18/22 22:11 Dose: Not Given Documented By: DELMY Non-Admin Reason: Patient Refused Lisinopril (Lisinopril 40 Mg Tablet) 40 mg PO DAILY [facility]; Protocol Last Admin: 02/19/22 07:50 Dose: 40 mg Documented By: BRYSON Loratadine (Loratadine 10 Mg Tablet) 10 mg PO DAILY [facility] Last Admin: 02/19/22 07:49 Dose: 10 mg Documented By: BRYSON Metformin HCl (Metformin Hcl 1,000 Mg Tablet) 1,000 mg PO BID [facility] Last Admin: 02/19/22 07:49 Dose: 1,000 mg Documented By: BRYSON Metoprolol Succinate (Metoprolol Succinate Er 25 Mg Tab.Er.24h) 25 mg PO DAILY [facility]; Protocol Last Admin: 02/19/22 07:49 Dose: 25 mg Documented By: BRYSON Multivitamins/Vitamin C (Multivitamin Tablet) 1 tab PO DAILY [facility] Last Admin: 02/19/22 07:49 Dose: 1 tab Documented By: BRYSON Olanzapine (Olanzapine 5 Mg Tablet) 5 mg PO BEDTIME [facility] Last Admin: 02/18/22 21:52 Dose: 5 mg Documented By: DELMY Omeprazole (Omeprazole 20 Mg Capsule.Dr) 20 mg PO DAILY@0630 [facility] Last Admin: 02/19/22 05:57 Dose: 20 mg Documented By: DELMY Ondansetron HCl (Ondansetron Hcl 4 Mg/2 Ml Vial) 4 mg IVPUSH Q8H PRN PRN Reason: Nausea and Vomiting Oxybutynin Chloride (Oxybutynin Chloride Er 5 Mg Tab.Er.24) 5 mg PO DAILY [facility] Last Admin: 02/19/22 07:50 Dose: 5 mg Documented By: BRYSON Pharmacy Consult (Consult Rx Perform Med Rec) 1 each MISCELLANE ONCE PRN PRN Reason: Consult order Pharmacy Consult (Consult Rx Vancomycin Dosing) 1 each MISCELLANE DAILY PRN PRN Reason: Consult order Sodium Chloride (0.9 % Sodium Chloride Flush 3 Ml Syringe) 3 ml IVFLUSH QSHIFT [facility] Last Admin: 02/19/22 17:36 Dose: 3 ml Documented By: CHRISTINE Sodium Chloride (0.9 % Sodium Chloride Flush 10 Ml Syringe) 5 ml IVFLUSH TID [facility] Last Admin: 02/19/22 12:12 Dose: 5 ml Documented By: BRYSON Tamsulosin HCl (Tamsulosin Hcl 0.4 Mg Capsule) 0.4 mg PO BEDTIME [facility] Last Admin: 02/18/22 21:52 Dose: 0.4 mg Documented By: DELMY Trazodone HCl (Trazodone Hcl 100 Mg Tablet) 100 mg PO BEDTIME PRN PRN Reason: Insomnia Trazodone HCl (Trazodone Hcl 100 Mg Tablet) 300 mg PO BEDTIME [facility] Last Admin: 02/18/22 21:52 Dose: 300 mg Documented By: DELMY Labs CBC & Chem 7: 02/18/22 06:02 02/18/22 06:02 Labs: Laboratory Results - last 24 hr 02/18/22 02/19/22 02/19/22 19:45 07:34 11:21 POC Glucose 313 H 186 H 172 H 02/19/22 15:12 POC Glucose 133 H Microbiology Microbiology Results: Microbiology 02/14/22 11:43 Blood Culture - Final Blood - Venous No growth after 5 days. Assessment and Plan (1) MSSA bacteremia: Status: Acute (2) Hypokalemia: Status: Acute (3) Positive blood culture: Status: Acute (4) Surgical site infection: Status: Acute (5) Rhabdomyolysis: Status: Acute Plan 71-year-old male with extensive past medical history as mentioned above who presents to the hospital due to increased confusion as well as falls found to have infection at this site or recent surgical intervention of a malleolar fracture that was done on February 03 MSSA bacteremia due to surgical site infection negative from 02/16/22 cefazolin 2gm Q 8 IV for total of 8 weeks, day , end april 12, 2022 orthopedic surgical team consulted, no intervention needed picc line placed NWB LLE rhabdomyolysis resolved hypokalemia Improved after replacement frequent falls had multiple admissions in the past for the same head CT neg opioid dependence suboxone hypertension lisinopril, toprol, amlodipine HLD continue statin diabetes basal bolus insulin bph flomax mood disorder zyprexa copd stable, as needed bronchodilators DVT prophylaxis lovenox full code reason for continued hospitalization: needs iv abx for blood stream infection, awaiting set up for dispo Quality Stroke Does the patient have a stroke diagnosis?: No VTE Prior VTE?: No VTE Risk Level:: Medical - moderate - high VTE Device Contraindication: Treatment Not Tolerated VTE Drug Contraindication: Treatment Not Indicated
--- NOTE | 2022-02-19 19:35 | PC.NURSE ---
Patient was agitated and wanted to leave AMA at 18:00. Security was called, doctor came and talked to him, patient now calm in his room.
[2022-02-19 20:00] VITALS: BP 158/82; PULSE 77; RESP 18; TEMP 37.4; O2SAT 96
[2022-02-19 20:19] LABS: Glucose, Whole Blood 242 mg/dL (60-115)
[2022-02-19] MEDS: Insulin Glargine,Hum.rec.anlog 100 UNIT/ML 10 ML VIAL 45 UNIT SUBCUT (20:33)
[2022-02-19] MEDS: OLANZapine 5 MG TABLET PO (20:34)
[2022-02-19] MEDS: traZODone HCL 100 MG TABLET PO (20:34)
[2022-02-19] MEDS: traZODone HCL 100 MG TABLET 300 MG PO (20:35)
[2022-02-19] MEDS: Atorvastatin Calcium 40 MG TABLET PO (20:36)
[2022-02-19] MEDS: amLODIPine Besylate 10 MG TABLET PO (20:36)
[2022-02-19] MEDS: Docusate Sodium 100 MG CAPSULE PO (20:36)
[2022-02-19] MEDS: Tamsulosin HCL 0.4 MG CAPSULE PO (20:36)
[2022-02-19] MEDS: Latanoprost 0.005 % Ophth Sol 2.5 ML DROPS 1 DROP EYE-BOTH (20:46)
[2022-02-19 23:50] VITALS: BP 135/62; PULSE 75; RESP 14; TEMP 37.2; O2SAT 97
[2022-02-20 03:03] VITALS: BP 152/81; PULSE 70; RESP 16; TEMP 36.1; O2SAT 96
[2022-02-20] MEDS: ceFAZolin Sodium/Dextrose,Iso 2 GM/50 ML PIGGYBACK IV (06:26)
[2022-02-20] MEDS: Omeprazole 20 MG CAPSULE.DR PO (06:27)
[2022-02-20 08:00] VITALS: BP 150/80; PULSE 77; RESP 16; TEMP 37.1; O2SAT 95
[2022-02-20] MEDS: 0.9 % Sodium Chloride Flush 3 ML SYRINGE IVFLUSH (08:06)
[2022-02-20] MEDS: lisinopriL 40 MG TABLET PO (08:06)
[2022-02-20] MEDS: Buprenorphine/Naloxone 8/2 mg FILM 1 FILM SUBLINGUAL (08:07)
[2022-02-20] MEDS: Aspirin Enteric Coated 81 MG TABLET.DR PO (08:07)
[2022-02-20] MEDS: metFORMIN HCl 1,000 MG TABLET 1000 MG PO (08:07)
[2022-02-20] MEDS: Metoprolol Succinate ER 25 MG TAB.ER.24H PO (08:07)
[2022-02-20] MEDS: Multivitamin TABLET 1 TAB PO (08:07)
[2022-02-20] MEDS: 0.9 % Sodium Chloride Flush 10 ML SYRINGE 5 ML IVFLUSH (08:07)
[2022-02-20] MEDS: Loratadine 10 MG TABLET PO (08:07)
[2022-02-20] MEDS: Ferrous Sulfate 300 MG/5 ML LIQUID 150 MG PO (08:08)
[2022-02-20] MEDS: Dorzolamide/Timolo 2.23%/0.68% 10 ML DRBTL 1 DROP EYE-BOTH (08:09)
[2022-02-20 08:13] LABS: Glucose, Whole Blood 247 mg/dL (60-115)
[2022-02-20] MEDS: Artificial Tears 15 ML DROPS 1 DROP EYE-BOTH (08:13)
[2022-02-20] MEDS: Insulin Lispro 100 UNIT/ML 3 ML VIAL SUBCUT (08:22)
--- NOTE | 2022-02-20 08:30 | MHC.CM.PN ---
Addendum entered by Heide Hansen 02/20/22 11:00: CM INFORMED PT REFUSING STR CM MET WITH PT WHO REPORTS HE WANTS TO GO HOME AND WAS NOT AWARE HE WAS GOING TO SNF CM REMINDED HIM OF EARLIER CONVERSATION REGARDING HIS GOING TO STR PT CONTINUES TO STATE HE IS NOT GOING CM INFORMED HIM AND HIS GF WHO WAS AT BEDSIDE, PT IS UNABLE TO GET IV ABX AT HOME AND IS CURRENTLY NWB STATUS SO WOULD BE UNABLE TO CARE FOR HIMSELF AT HOME PT INITIALLY REFUSED BUT AFTER DISCUSSING IT FURTHER WITH HIS GF, HE AGREED TO DC TO SNF. Original Note: PT READY TO DC TO SNF TODAY FOR REHAB AND IV ABX [facility] HAS INDICATED THEY HAVE INSURANCE AUTH. PT WILL NEED WRITTEN SCRIPTS FOR ANY NARCOTICS/BENZOS HE IS DISCHARGED WITH WELL A LAST DOSE LETTER AWARE OF ABOVE. TRANSPORT WILL BE ARRANGED VIA [facility] FOR 1000 HOURS.
[2022-02-20 09:04] VITALS: BP 150/80; PULSE 77; O2SAT 95
[2022-02-20 11:17] VITALS: BP 151/76; PULSE 71; RESP 20; TEMP 36.9; O2SAT 94
[2022-02-20 11:30] LABS: Glucose, Whole Blood 192 mg/dL (60-115)
== END 2022-02-20 12:23 | disposition skilled nursing facility (03) | DRG 863 ==
LOC: HO.ED 18:46 → HO.EDOVER 21:14 → HO.S3 22:20
PROVIDERS: Physician Assistant; Student in an Organized Health Care Education/Training Program; Admitting Provider Internal Medicine; Emergency Provider Student in an Organized Health Care Education/Training Program; PCP Internal Medicine; Visit Provider Internal Medicine
DX: T81.41XA Infection following a procedure, superficial incisional surgical site, initial encounter (principal); F11.20 Opioid dependence, uncomplicated; M62.82 Rhabdomyolysis; R78.81 Bacteremia; I25.10 Atherosclerotic heart disease of native coronary artery without angina pectoris; F41.9 Anxiety disorder, unspecified; G47.33 Obstructive sleep apnea (adult) (pediatric); E11.9 Type 2 diabetes mellitus without complications; E78.5 Hyperlipidemia, unspecified; Z20.822 Contact with and (suspected) exposure to COVID-19; R29.6 Repeated falls; N40.0 Benign prostatic hyperplasia without lower urinary tract symptoms; B95.61 Methicillin susceptible Staphylococcus aureus infection as the cause of diseases classified elsewhere; F39 Unspecified mood [affective] disorder; E87.6 Hypokalemia; Z91.19 Patient's noncompliance with other medical treatment and regimen; Z91.81 History of falling; Z86.010 Personal history of colon polyps; Z79.82 Long term (current) use of aspirin; Z79.84 Long term (current) use of oral hypoglycemic drugs; Z79.899 Other long term (current) drug therapy
CPT/HCPCS: 36415; 36573; 70450; 71250; 72125; 73600; 74176; 80048; 80076; 80143; 80179; 80202; 80307; 81001; 82077; 82140; 82550; 82947; 83605; 83690; 83735; 84484; 85025; 85027; 85610; 87040; 87077; 87147; 87186; 87205; 87635; 93005; 93306; 93971; 96361; 96365; 96366; 96375; 97110; 97116; 97163; 97530; 99285; C1751; J0690; J1170; J1650; J2543; J3370; J3475

== ENCOUNTER 2022-02-25 13:26 | Emergency (ER) | payer OTHER, SELFPAY ==
--- NOTE | ~2022-02-25 | XR_ITS ---
EXAMINATION: XR CHEST CLINICAL INFORMATION: Chest pain COMPARISON: CT chest 02/13/2022 and chest radiograph 02/07/2020 TECHNIQUE: Frontal view of the chest was obtained. FINDINGS: No significant abnormality is noted involving the heart, lungs, mediastinum, bony thorax or soft tissues. XR/XR chest 1V IMPRESSION: Unremarkable examination.
--- NOTE | ~2022-02-25 | CT_ITS ---
EXAMINATION: CT BRAIN AND CT CERVICAL SPINE WITHOUT CONTRAST. CLINICAL INFORMATION: Lethargy COMPARISON: CT brain 02/14/2020 TECHNIQUE: 5 mm thin axial and reformatted 2 mm thin sagittal and coronal images of brain were obtained. Subsequently axial 3 mm thin and reformatted 2 mm thin sagittal and coronal images of cervical spine were obtained. DL 2240 FINDINGS: Brain: There is no acute intra-axial, extra-axial bleed, masses or midline shift. There is no acute infarction evolution. The lateral ventricles are enlarged but symmetrical. There is diffuse periventrical hypodensities in both cerebral hemispheres. Bone windows reveal no calvarial abnormality. Bilateral paranasal sinuses and mastoid air cells are well-aerated. Cervical spine: There is mild straightening of cervical lordosis. The vertebral heights, alignment and disc heights are normal. The craniovertebral junction is normal. There is mild cervical spondylosis at the C1-C2 disc level. The lung apices are clear. The airways widely patent. The thyroid lobes are symmetrical and normal. No abnormal neck lymphadenopathy or mass seen. The prevertebral and paravertebral soft tissues are normal. CT/CT cervical spine wo con IMPRESSION: No acute intracranial process seen. No acute fracture or dislocations subluxation in cervical spine. The prevertebral soft tissues are normal.
--- NOTE | ~2022-02-25 | XR_ITS ---
EXAMINATION: XR ANKLE, LEFT CLINICAL INFORMATION: Left ankle pain. COMPARISON: Left ankle radiographs dated 02/13/2022. TECHNIQUE: AP, lateral, and mortise views of the left ankle. FINDINGS: There has been interval removal of the splint. The patient is status post distal fibular and medial malleolus ORIF showing good anatomic alignment and no evidence for hardware malfunction. No significant change. Mild tibiotalar degenerative joint changes are seen. The subtalar joint is unremarkable. Small plantar calcaneal spurs are noted. There is moderate soft tissue swelling. XR/XR ankle LT min 3V IMPRESSION: Status post distal fibular and medial malleolus ORIF with similar alignment. Persistent moderate soft tissue swelling.
--- NOTE | ~2022-02-25 | CT_ITS ---
EXAMINATION: CT BRAIN AND CT CERVICAL SPINE WITHOUT CONTRAST. CLINICAL INFORMATION: Lethargy COMPARISON: CT brain 02/14/2020 TECHNIQUE: 5 mm thin axial and reformatted 2 mm thin sagittal and coronal images of brain were obtained. Subsequently axial 3 mm thin and reformatted 2 mm thin sagittal and coronal images of cervical spine were obtained. DL 2240 FINDINGS: Brain: There is no acute intra-axial, extra-axial bleed, masses or midline shift. There is no acute infarction evolution. The lateral ventricles are enlarged but symmetrical. There is diffuse periventrical hypodensities in both cerebral hemispheres. Bone windows reveal no calvarial abnormality. Bilateral paranasal sinuses and mastoid air cells are well-aerated. Cervical spine: There is mild straightening of cervical lordosis. The vertebral heights, alignment and disc heights are normal. The craniovertebral junction is normal. There is mild cervical spondylosis at the C1-C2 disc level. The lung apices are clear. The airways widely patent. The thyroid lobes are symmetrical and normal. No abnormal neck lymphadenopathy or mass seen. The prevertebral and paravertebral soft tissues are normal. CT/CT head/brain wo con IMPRESSION: No acute intracranial process seen. No acute fracture or dislocations subluxation in cervical spine. The prevertebral soft tissues are normal.
[2022-02-25 14:04] VITALS: BP 140/60; PULSE 80; O2SAT 95
--- NOTE | 2022-02-25 14:22 | ECG_ITS ---
Test Reason : lethargic Blood Pressure : / mmHG Vent. Rate : 068 BPM Atrial Rate : 068 BPM P-R Int : 170 ms QRS Dur : 108 ms QT Int : 418 ms P-R-T Axes : 066 -61 044 degrees QTc Int : 444 ms Normal sinus rhythm Left anterior fascicular block Abnormal ECG When compared with ECG of 13-FEB-2022 16:40, QT has shortened Referred By: Do Bailey Electronically Signed By:MARY OCASIO
[2022-02-25 14:24] VITALS: BP 116/53; PULSE 76; RESP 16; TEMP 37.3; O2SAT 97; BMI 28.1
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
[2022-02-25 15:18] LABS: MANUAL DIFF FLAG NO
[2022-02-25 15:22] LABS: VBG Base Excess 9.8 mmol/L; VBG HCO3 37 mmol/L (22-26); VBG pCO2 66 mmHg; VBG pH 7.36 (7.32-7.43); VBG pO2 51 mmHg
[2022-02-25 15:22] LABS: Venous Blood Gas Refer to POC result
[2022-02-25 15:24] LABS: Basophils Percent Auto 0.3 % (0-2); Eosinophils Percent Auto 0.2 % (0-4); Hematocrit 31.4 % (42.0-52.0); Hemoglobin 10.2 g/dl (14.0-18.0); Imm Gran Pct Auto 0.8 % (0.0-0.4); Lymphocytes Absolute Auto 1.9 X10*3/uL (1.2-4.9); Lymphocytes Percent Auto 15.5 % (20-40); Mean Corpuscular HGB Conc 32.5 g/dl (31.0-36.0); Mean Corpuscular Hemoglobin 30.1 pg (27.0-33.0); Mean Corpuscular Volume 92.6 fL (80.0-98.0); Mean Platelet Volume 8.6 fL (9.4-12.4); Monocytes Absolute Auto 0.6 X10*3/uL (0.1-1.2); Monocytes Percent Auto 5.1 % (2-11); Neutrophils Absolute Auto 9.6 x10*3/uL (2.0-8.3); Neutrophils Percent Auto 78.1 % (45-73); Platelet Count 469 X10*3/uL (160-400); Red Blood Count 3.39 X10*6/uL (4.60-5.80); Red Cell Distribution Width 13.1 % (11.0-16.0); White Blood Count 12.2 X10*3/uL (4.8-10.8)
[2022-02-25 15:35] LABS: Lactic Acid 1.6 mmol/L (0.5-2.0)
[2022-02-25] MEDS: ceFAZolin Sodium/Dextrose,Iso 2 GM/50 ML PIGGYBACK IV (15:43)
[2022-02-25 15:45] LABS: Acetaminophen LAB 1 mcg/mL (<30); Alanine Aminotransferase 23 U/L (0-40); Albumin Level 3.6 g/dL (3.5-5.0); Alkaline Phosphatase 137 U/L (39-117); Anion Gap 15 (12-20); Aspartate Amino Transferase 26 U/L (5-37); Bilirubin Total 0.3 mg/dL (0.0-1.0); Blood Urea Nitrogen 10 mg/dL (9-16); Calcium 8.8 mg/dL (8.4-10.2); Carbon Dioxide 32 mmol/L (22-29); Chloride 97 mmol/L (96-108); Creatinine Clr Calc Pharmacy 96.1; Estimated Glomerular Filt Rate > 60; Ethanol < 10 mg/dL; Glucose Random 184 mg/dL (60-115); Magnesium 1.4 mg/dL (1.6-2.6); Potassium 4.7 mmol/L (3.3-5.1); Salicylate < 5.0 mg/dL (15-30); Sodium 139 mmol/L (135-145); Total Protein 7.5 g/dL (6.5-8.0)
[2022-02-25 15:46] LABS: Troponin-I High Sensitivity 6.9 ng/L (<3.5-35.0)
[2022-02-25] MEDS: Magnesium Sulfate/H2O 2 GM/50 ML PIGGYBACK IV (16:23)
[2022-02-25 17:29] VITALS: BP 161/84; PULSE 71; RESP 18; O2SAT 95
--- NOTE | 2022-02-25 18:14 | PHA.MEDREC ---
Pharmacy Consult ? Medication Reconciliation Pharmacy has completed the medication reconciliation. Med rec obtained from pt's pharmacy
[2022-02-25] MEDS: Buprenorphine/Naloxone 8/2 mg FILM 1 FILM SUBLINGUAL (20:16)
[2022-02-25] MEDS: Atorvastatin Calcium 40 MG TABLET PO (20:17)
[2022-02-25] MEDS: Tamsulosin HCL 0.4 MG CAPSULE PO (20:17)
[2022-02-25] MEDS: amLODIPine Besylate 10 MG TABLET PO (20:18)
[2022-02-25] MEDS: traZODone HCL 100 MG TABLET PO (20:18)
[2022-02-25] MEDS: Magnesium Oxide 400 MG TABLET PO (20:18)
[2022-02-25 20:20] VITALS: BP 131/68; PULSE 84; RESP 17; TEMP 36.3; O2SAT 95
[2022-02-25 21:03] LABS: Glucose, Whole Blood 244 mg/dL (60-115)
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
[2022-02-25 22:01] LABS: COVID-19 Test Negative (Negative)
[2022-02-25] MEDS: Insulin Glargine,Hum.rec.anlog 100 UNIT/ML 10 ML VIAL 45 UNIT SUBCUT (22:04)
[2022-02-26 02:19] VITALS: BP 161/73; PULSE 94; RESP 18; TEMP 36.8; O2SAT 96
[2022-02-26] MEDS: Omeprazole 20 MG CAPSULE.DR PO (05:57)
[2022-02-26 06:21] VITALS: BP 129/72; PULSE 80; RESP 18; TEMP 37.2; O2SAT 95
--- NOTE | 2022-02-26 09:36 | MHC.CARE ---
CARE Team meets with pt at the request of Case Management to conduct a risk screening.? There is no indication in this pt?s documentation that he is a risk.? Pt denies SI, HI, , and self ?harm urges, AVH and denies any hx of.? Pt does not appear delusional or experiencing SX of psychosis.? He reports appetite and sleep as good.? He reports no substance use.? Pt does not appear to be a risk.
[2022-02-26 09:52] VITALS: BP 155/85; PULSE 81; RESP 17; O2SAT 94
[2022-02-26] MEDS: Buprenorphine/Naloxone 8/2 mg FILM 1 FILM SUBLINGUAL ×2 (09:53→21:07)
[2022-02-26] MEDS: metFORMIN HCl 1,000 MG TABLET 1000 MG PO ×2 (09:53→18:35)
[2022-02-26] MEDS: Loratadine 10 MG TABLET PO (09:54)
[2022-02-26] MEDS: Metoprolol Succinate ER 25 MG TAB.ER.24H PO (09:54)
[2022-02-26] MEDS: lisinopriL 40 MG TABLET PO (09:54)
[2022-02-26] MEDS: Aspirin Enteric Coated 81 MG TABLET.DR PO (09:54)
[2022-02-26] MEDS: Multivitamin TABLET 1 TAB PO (09:54)
[2022-02-26] MEDS: glipiZIDE XL 5 MG TAB.ER.24 PO (11:15)
[2022-02-26] MEDS: Ferrous Sulfate 300 MG/5 ML LIQUID 150 MG PO (11:16)
[2022-02-26 12:14] VITALS: BP 148/68; PULSE 78; RESP 17; TEMP 37.5; O2SAT 97
[2022-02-26 12:30] LABS: Glucose, Whole Blood 233 mg/dL (60-115)
[2022-02-26 13:51] LABS: Magnesium 1.5 mg/dL (1.6-2.6)
[2022-02-26 13:52] LABS: Fentanyl, urine POSITIVE (Not Detect)
[2022-02-26 13:54] LABS: Amphetamine Screen Urine Not Detected (Not Detect); Barbiturates, Urine Not Detected (Not Detect); Cannabinoid Screen Urine Not Detected (Not Detect); Cocaine Screen Urine Not Detected (Not Detect); Opiate Screen Urine POSITIVE (Not Detect); Phencyclidine Screen Urine Not Detected (Not Detect)
[2022-02-26] MEDS: Acetaminophen 325 MG TABLET 650 MG PO (14:02)
--- NOTE | 2022-02-26 14:56 | MHC.CM.ED ---
Patient remains in ER. Patient seen by physical therapy. Short term rehab is recommended. Patient will be difficult to place because he is on Suboxone. Dr Thurman at [facility] is his provider. Referral broadcasted in [employer]. [facility] is able to offer a bed when insurance auth is obtained, Suboxone prescription is sent to their pharmacy, [facility] and [facility] exemption letter has been obtained. Met with patient and educational sign language interpreter. T/W explained closest facility available is [facility]. Also explained patient would not receive narcotics here or at [facility]. Patient verbalized understanding and requested Tylenol. Tylenol ordered by Dr Damon and given by Martita OLIVARES. [facility] exemption letter has been obtained and sent to [facility]. T/W spoke with MARSHALL Roberts at [facility]. She will contact Dr Thurman's office about providing Suboxone script to [facility] because patient will need medical short term rehab. Patient aware he may not d/c umtil 02/27. [facility] to monitor for d/c needs.
[2022-02-26 16:51] LABS: Benzodiazepines Screen Urine Not Detected (Not Detect)
[2022-02-26 18:05] VITALS: BP 160/87; PULSE 87; RESP 14; TEMP 36.8; O2SAT 97
[2022-02-26 18:30] LABS: Glucose, Whole Blood 208 mg/dL (60-115)
[2022-02-26] MEDS: amLODIPine Besylate 10 MG TABLET PO (21:07)
[2022-02-26] MEDS: Insulin Glargine,Hum.rec.anlog 100 UNIT/ML 10 ML VIAL 45 UNIT SUBCUT (21:07)
[2022-02-26] MEDS: traZODone HCL 100 MG TABLET PO (21:07)
[2022-02-26] MEDS: Atorvastatin Calcium 40 MG TABLET PO (21:07)
[2022-02-26] MEDS: Tamsulosin HCL 0.4 MG CAPSULE PO (21:07)
[2022-02-26] MEDS: Artificial Tears 15 ML DROPS 1 DROP EYE-BOTH (23:14)
[2022-02-26] MEDS: Dorzolamide/Timolo 2.23%/0.68% 10 ML DRBTL 1 DROP EYE-BOTH (23:14)
[2022-02-26] MEDS: Latanoprost 0.005 % Ophth Sol 2.5 ML DROPS 1 DROP EYE-LEFT (23:14)
[2022-02-27 08:15] LABS: Glucose, Whole Blood 127 mg/dL (60-115)
[2022-02-27] MEDS: Loratadine 10 MG TABLET PO (08:16)
[2022-02-27] MEDS: Omeprazole 20 MG CAPSULE.DR PO (08:16)
[2022-02-27] MEDS: Aspirin Enteric Coated 81 MG TABLET.DR PO (08:16)
[2022-02-27] MEDS: Metoprolol Succinate ER 25 MG TAB.ER.24H PO (08:16)
[2022-02-27] MEDS: Buprenorphine/Naloxone 8/2 mg FILM 1 FILM SUBLINGUAL ×2 (08:16→21:27)
[2022-02-27] MEDS: metFORMIN HCl 1,000 MG TABLET 1000 MG PO ×2 (08:17→19:43)
[2022-02-27] MEDS: Artificial Tears 15 ML DROPS 1 DROP EYE-BOTH ×4 (08:17→21:27)
[2022-02-27] MEDS: Dorzolamide/Timolo 2.23%/0.68% 10 ML DRBTL 1 DROP EYE-BOTH ×2 (08:17→21:28)
[2022-02-27] MEDS: lisinopriL 40 MG TABLET PO (08:17)
--- NOTE | 2022-02-27 08:28 | PC.NURSE ---
Contacted pharmacy to bring additional medications that were not available in ED Pyxis.
[2022-02-27 08:40] VITALS: BP 137/76; PULSE 86; RESP 13; TEMP 36.9; O2SAT 97
[2022-02-27] MEDS: Ferrous Sulfate 300 MG/5 ML LIQUID 150 MG PO (09:24)
[2022-02-27] MEDS: glipiZIDE XL 5 MG TAB.ER.24 PO (09:24)
[2022-02-27] MEDS: Multivitamin TABLET 1 TAB PO (09:24)
--- NOTE | 2022-02-27 09:27 | PC.NURSE ---
PT SLEEPING, EASILY AWOKEN, TOOK MORNING MEDS, AWAITING CASE MANAGEMENT PLACEMENT.
[2022-02-27 12:57] LABS: Glucose, Whole Blood 124 mg/dL (60-115)
[2022-02-27 15:12] VITALS: BP 150/78; PULSE 77; RESP 15; TEMP 37.3; O2SAT 97
[2022-02-27] MEDS: Acetaminophen 325 MG TABLET 650 MG PO (15:39)
[2022-02-27 17:27] LABS: Glucose, Whole Blood 187 mg/dL (60-115)
--- NOTE | 2022-02-27 19:27 | PC.NURSE ---
Assisted to commode at this time. Refusing to ambulate to bathroom due to foot pain.
--- NOTE | 2022-02-27 19:46 | PC.NURSE ---
Provider (Elizabeth Osuna) contacted, due to patient requesting pain medication.
[2022-02-27] MEDS: Tamsulosin HCL 0.4 MG CAPSULE PO (21:27)
[2022-02-27] MEDS: traZODone HCL 100 MG TABLET PO (21:27)
[2022-02-27] MEDS: amLODIPine Besylate 10 MG TABLET PO (21:27)
[2022-02-27] MEDS: Insulin Glargine,Hum.rec.anlog 100 UNIT/ML 10 ML VIAL 45 UNIT SUBCUT (21:27)
[2022-02-27] MEDS: Atorvastatin Calcium 40 MG TABLET PO (21:27)
[2022-02-27] MEDS: Latanoprost 0.005 % Ophth Sol 2.5 ML DROPS 1 DROP EYE-LEFT (21:28)
[2022-02-27 21:33] LABS: Glucose, Whole Blood 278 mg/dL (60-115)
[2022-02-27 23:55] VITALS: BP 146/74; PULSE 74; RESP 16; TEMP 36.6; O2SAT 98
--- NOTE | 2022-02-28 | ECG_ITS ---
Test Reason : CP Blood Pressure : / mmHG Vent. Rate : 076 BPM Atrial Rate : 076 BPM P-R Int : 178 ms QRS Dur : 104 ms QT Int : 400 ms P-R-T Axes : 079 -70 032 degrees QTc Int : 450 ms Sinus rhythm with occasional Premature ventricular complexes Left anterior fascicular block Abnormal ECG When compared with ECG of 25-FEB-2022 15:55, Premature ventricular complexes are now Present Referred By: Romi Hartman Electronically Signed By:MARY OCASIO
[2022-02-28] MEDS: Acetaminophen 325 MG TABLET 650 MG PO (00:55)
[2022-02-28] MEDS: Omeprazole 20 MG CAPSULE.DR PO (06:25)
[2022-02-28 07:16] LABS: Glucose, Whole Blood 79 mg/dL (60-115)
[2022-02-28] MEDS: Multivitamin TABLET 1 TAB PO (08:53)
[2022-02-28] MEDS: Loratadine 10 MG TABLET PO (08:53)
[2022-02-28] MEDS: metFORMIN HCl 1,000 MG TABLET 1000 MG PO ×2 (08:53→18:42)
[2022-02-28] MEDS: Aspirin Enteric Coated 81 MG TABLET.DR PO (08:54)
[2022-02-28] MEDS: Buprenorphine/Naloxone 8/2 mg FILM 1 FILM SUBLINGUAL ×2 (08:54→21:57)
[2022-02-28] MEDS: lisinopriL 40 MG TABLET PO (08:54)
[2022-02-28] MEDS: Metoprolol Succinate ER 25 MG TAB.ER.24H PO (08:54)
[2022-02-28] MEDS: Dorzolamide/Timolo 2.23%/0.68% 10 ML DRBTL 1 DROP EYE-BOTH ×2 (08:55→21:56)
[2022-02-28] MEDS: Artificial Tears 15 ML DROPS 1 DROP EYE-BOTH ×4 (08:55→21:55)
[2022-02-28 08:58] VITALS: BP 152/76; PULSE 75; RESP 16
[2022-02-28] MEDS: Ferrous Sulfate 300 MG/5 ML LIQUID 150 MG PO (11:19)
[2022-02-28 15:49] VITALS: BP 152/103; PULSE 77; RESP 16; O2SAT 99
[2022-02-28 16:22] VITALS: RESP 16
[2022-02-28] MEDS: Morphine Sulfate 4 MG/ML CARTRIDGE IVPUSH (16:22)
[2022-02-28] MEDS: Aspirin 81 MG TAB.CHEW 162 MG PO (16:30)
[2022-02-28] MEDS: ondansetron HCL 4 MG/2 ML VIAL IVPUSH (16:41)
[2022-02-28 16:46] LABS: Troponin-I High Sensitivity 5.3 ng/L (<3.5-35.0)
[2022-02-28] MEDS: Morphine Sulfate 2 MG/ML CARTRIDGE IVPUSH (17:30)
[2022-02-28] MEDS: Latanoprost 0.005 % Ophth Sol 2.5 ML DROPS 1 DROP EYE-LEFT (21:57)
[2022-02-28] MEDS: amLODIPine Besylate 10 MG TABLET PO (21:58)
[2022-02-28] MEDS: traZODone HCL 100 MG TABLET PO (21:58)
[2022-02-28] MEDS: Tamsulosin HCL 0.4 MG CAPSULE PO (21:58)
[2022-02-28] MEDS: Atorvastatin Calcium 40 MG TABLET PO (22:01)
[2022-02-28] MEDS: Insulin Glargine,Hum.rec.anlog 100 UNIT/ML 10 ML VIAL 45 UNIT SUBCUT (22:01)
[2022-02-28 23:35] LABS: Troponin-I High Sensitivity 4.8 ng/L (<3.5-35.0)
[2022-03-01 04:46] VITALS: BP 143/81; PULSE 74; RESP 18; TEMP 36.6; O2SAT 95
[2022-03-01 07:26] VITALS: BP 129/66; PULSE 70; RESP 12; TEMP 36.8; O2SAT 97
[2022-03-01 07:27] LABS: Glucose, Whole Blood 67 mg/dL (60-115)
[2022-03-01] MEDS: Omeprazole 20 MG CAPSULE.DR PO (07:49)
[2022-03-01] MEDS: Acetaminophen 325 MG TABLET 650 MG PO (07:50)
[2022-03-01] MEDS: Artificial Tears 15 ML DROPS 1 DROP EYE-BOTH ×2 (08:25→13:56)
[2022-03-01] MEDS: Aspirin Enteric Coated 81 MG TABLET.DR PO (08:26)
[2022-03-01] MEDS: metFORMIN HCl 1,000 MG TABLET 1000 MG PO ×2 (08:27→16:28)
[2022-03-01] MEDS: Loratadine 10 MG TABLET PO (08:27)
[2022-03-01] MEDS: Multivitamin TABLET 1 TAB PO (08:28)
[2022-03-01] MEDS: Metoprolol Succinate ER 25 MG TAB.ER.24H PO (08:28)
[2022-03-01] MEDS: lisinopriL 40 MG TABLET PO (08:30)
[2022-03-01] MEDS: Buprenorphine/Naloxone 8/2 mg FILM 1 FILM SUBLINGUAL ×2 (08:31→23:29)
[2022-03-01] MEDS: Dorzolamide/Timolo 2.23%/0.68% 10 ML DRBTL 1 DROP EYE-BOTH (08:31)
[2022-03-01] MEDS: Ferrous Sulfate 300 MG/5 ML LIQUID 150 MG PO (09:47)
[2022-03-01] MEDS: glipiZIDE XL 5 MG TAB.ER.24 PO (10:03)
[2022-03-01 12:01] LABS: Glucose, Whole Blood 108 mg/dL (60-115)
[2022-03-01] MEDS: traMADoL HCL 50 MG TABLET PO (13:14)
[2022-03-01 13:28] LABS: Glucose, Whole Blood 131 mg/dL (60-115)
[2022-03-01 14:16] VITALS: BP 144/71; PULSE 70; RESP 16; O2SAT 96
--- NOTE | 2022-03-01 16:01 | ECG_ITS ---
Test Reason : CP Blood Pressure : / mmHG Vent. Rate : 073 BPM Atrial Rate : 073 BPM P-R Int : 190 ms QRS Dur : 106 ms QT Int : 406 ms P-R-T Axes : 073 -73 030 degrees QTc Int : 447 ms Normal sinus rhythm Incomplete right bundle branch block Left anterior fascicular block Septal infarct , age undetermined Abnormal ECG When compared with ECG of 28-FEB-2022 15:30, Premature ventricular complexes are no longer Present Referred By: Romi Hartman Electronically Signed By:MARY OCASIO
[2022-03-01] MEDS: oxyCODONE HCl Immed Release 5 MG TABLET PO (16:28)
[2022-03-01 17:42] LABS: MANUAL DIFF FLAG NO
[2022-03-01 17:44] LABS: Basophils Percent Auto 0.3 % (0-2); Eosinophils Absolute Auto 0.1 X10*3/uL (0.0-0.4); Imm Gran Abs Auto 0.04 X10*3/uL (0.00-0.03); Imm Gran Pct Auto 0.4 % (0.0-0.4); Lymphocytes Absolute Auto 1.8 X10*3/uL (1.2-4.9); Lymphocytes Percent Auto 20.1 % (20-40); Mean Corpuscular HGB Conc 33.3 g/dl (31.0-36.0); Mean Corpuscular Hemoglobin 30.1 pg (27.0-33.0); Mean Corpuscular Volume 90.4 fL (80.0-98.0); Mean Platelet Volume 8.6 fL (9.4-12.4); Monocytes Absolute Auto 0.6 X10*3/uL (0.1-1.2); Monocytes Percent Auto 6.8 % (2-11); Neutrophils Absolute Auto 6.5 x10*3/uL (2.0-8.3); Neutrophils Percent Auto 71.4 % (45-73); Platelet Count 463 X10*3/uL (160-400); Red Blood Count 3.65 X10*6/uL (4.60-5.80); Red Cell Distribution Width 13.2 % (11.0-16.0); White Blood Count 9.2 X10*3/uL (4.8-10.8)
[2022-03-01] MEDS: 0.9 % Sodium Chloride 1,000 ML 999 ML IV ×3 (17:49→21:55)
[2022-03-01] MEDS: ceFAZolin Sodium/Dextrose,Iso 2 GM/50 ML PIGGYBACK IV (17:49)
[2022-03-01 17:55] LABS: Glucose, Whole Blood 162 mg/dL (60-115)
[2022-03-01 18:14] LABS: Alanine Aminotransferase 15 U/L (0-40); Albumin Level 3.7 g/dL (3.5-5.0); Alkaline Phosphatase 114 U/L (39-117); Anion Gap 15 (12-20); Aspartate Amino Transferase 20 U/L (5-37); Bilirubin Total 0.3 mg/dL (0.0-1.0); Blood Urea Nitrogen 15 mg/dL (9-16); Calcium 9.2 mg/dL (8.4-10.2); Carbon Dioxide 26 mmol/L (22-29); Chloride 97 mmol/L (96-108); Creatinine Clr Calc Pharmacy 98.9; Estimated Glomerular Filt Rate > 60; Glucose Random 172 mg/dL (60-115); Potassium 4.2 mmol/L (3.3-5.1); Sodium 134 mmol/L (135-145); Total Protein 7.6 g/dL (6.5-8.0)
[2022-03-01 18:18] LABS: Lactic Acid 2.6 mmol/L (0.5-2.0)
[2022-03-01 18:19] LABS: Troponin-I High Sensitivity 4.1 ng/L (<3.5-35.0)
[2022-03-01 18:54] LABS: C Reactive Protein 1.55 mg/dL (< or = 0.50)
[2022-03-01 19:37] LABS: Erythrocyte Sedimentation Rate 67 MM/HR (0-15)
[2022-03-01 19:42] LABS: Reflex Lactate? Lactic Acid Added
[2022-03-01 21:09] LABS: Glucose, Whole Blood 129 mg/dL (60-115)
[2022-03-01 21:45] VITALS: BP 170/91; PULSE 83; RESP 16; O2SAT 98
[2022-03-01] MEDS: Tamsulosin HCL 0.4 MG CAPSULE PO (21:47)
[2022-03-01] MEDS: Atorvastatin Calcium 40 MG TABLET PO (21:47)
[2022-03-01] MEDS: traZODone HCL 100 MG TABLET PO (21:47)
[2022-03-01] MEDS: amLODIPine Besylate 10 MG TABLET PO (21:48)
[2022-03-01] MEDS: Insulin Glargine,Hum.rec.anlog 100 UNIT/ML 10 ML VIAL 45 UNIT SUBCUT (21:48)
[2022-03-01 21:49] VITALS: RESP 16
[2022-03-01] MEDS: Morphine Sulfate 4 MG/ML CARTRIDGE IVPUSH (21:49)
[2022-03-01 22:59] LABS: ~Lactic Acid-LAB USE ONLY 2.1 mmol/L (0.5-2.0)
--- NOTE | 2022-03-01 23:29 | PC.NURSE ---
Pt eye meds were nowhere to be found earlier in the shift. This RN called pharmacy to ask where the meds might be. Checked the pt specific bin and the fridge in the Pyxis room with no success. Pharmacy is now unable to deliver med.
[2022-03-02] VITALS: BP 130/72; PULSE 80; RESP 16; TEMP 36.6
[2022-03-02 00:12] LABS: Reflex Lactate? 2 Y
[2022-03-02 03:07] LABS: ~Lactic Acid-LAB USE ONLY 1.7 mmol/L (0.5-2.0)
[2022-03-02] MEDS: Omeprazole 20 MG CAPSULE.DR PO (06:51)
[2022-03-02 07:58] LABS: Glucose, Whole Blood 103 mg/dL (60-115)
--- NOTE | 2022-03-02 10:15 | PC.NURSE ---
wound to right knee cleaned and dressed. minimal drainage noted, zhanna-wound red, no swelling noted. pt reports pain with movements. meds given as documented.
[2022-03-02] MEDS: Aspirin Enteric Coated 81 MG TABLET.DR PO (10:24)
[2022-03-02] MEDS: Buprenorphine/Naloxone 8/2 mg FILM 1 FILM SUBLINGUAL ×2 (10:24→21:16)
[2022-03-02] MEDS: Ferrous Sulfate 300 MG/5 ML LIQUID 150 MG PO (10:24)
[2022-03-02] MEDS: Multivitamin TABLET 1 TAB PO (10:25)
[2022-03-02] MEDS: metFORMIN HCl 1,000 MG TABLET 1000 MG PO ×2 (10:25→15:43)
[2022-03-02] MEDS: Loratadine 10 MG TABLET PO (10:25)
[2022-03-02] MEDS: Metoprolol Succinate ER 25 MG TAB.ER.24H PO (10:25)
[2022-03-02] MEDS: glipiZIDE XL 5 MG TAB.ER.24 PO (10:52)
[2022-03-02] MEDS: lisinopriL 40 MG TABLET PO (10:52)
[2022-03-02 11:01] VITALS: BP 143/76; PULSE 76; RESP 12; TEMP 36.6; O2SAT 98
[2022-03-02 13:08] LABS: Glucose, Whole Blood 118 mg/dL (60-115)
[2022-03-02] MEDS: Morphine Sulfate 4 MG/ML CARTRIDGE IVPUSH ×2 (15:39→21:13)
--- NOTE | 2022-03-02 17:48 | PC.NURSE ---
pt sleeping on and off during shift. he c/o 9/10 left leg pain, prn pain meds given as document. no c/o chest pain/headache/dizziness/sob. pt's partner at his bedside
[2022-03-02 18:34] LABS: Glucose, Whole Blood 82 mg/dL (60-115)
[2022-03-02 20:06] VITALS: BP 162/78; PULSE 76; RESP 20; TEMP 36.4; O2SAT 96
[2022-03-02 21:13] VITALS: RESP 16
[2022-03-02] MEDS: amLODIPine Besylate 10 MG TABLET PO (21:14)
[2022-03-02] MEDS: Insulin Glargine,Hum.rec.anlog 100 UNIT/ML 10 ML VIAL 45 UNIT SUBCUT (21:15)
[2022-03-02] MEDS: Atorvastatin Calcium 40 MG TABLET PO (21:15)
[2022-03-02] MEDS: Tamsulosin HCL 0.4 MG CAPSULE PO (21:15)
[2022-03-02] MEDS: traZODone HCL 100 MG TABLET PO (21:15)
[2022-03-02 21:18] LABS: Glucose, Whole Blood 172 mg/dL (60-115)
[2022-03-02 22:00] VITALS: BP 140/73; PULSE 72; RESP 16; TEMP 36.6; O2SAT 96
[2022-03-03 03:15] VITALS: BP 141/71; PULSE 73; RESP 14; TEMP 36.4; O2SAT 100
[2022-03-03] MEDS: Morphine Sulfate 4 MG/ML CARTRIDGE IVPUSH (05:14)
[2022-03-03] MEDS: Omeprazole 20 MG CAPSULE.DR PO (05:15)
--- NOTE | 2022-03-03 05:57 | PC.NURSE ---
Assumed care at 2315. Patient resting in bed - non labored respirations. Easily arousable. Patient moving in bed independently. left ankle dressing dry & intact. CMS left lower extremity WNL. Patient c/o left leg pain. Medicated w/ PRN morphine at 0514 w/ partial effect per patient. Patient appears to doze on and off. Repositioning independently. Sitting at side of bed intermit. Dressing changed on right knee abrasion. Zeroform & foam dressing applied. Call delaney within reach. Vitals stable.
[2022-03-03 06:19] VITALS: RESP 18
--- NOTE | 2022-03-03 07:02 | PC.NURSE ---
Report received from Fran An RN
[2022-03-03 07:25] LABS: Glucose, Whole Blood 85 mg/dL (60-115)
[2022-03-03] MEDS: Aspirin Enteric Coated 81 MG TABLET.DR PO (09:20)
[2022-03-03] MEDS: metFORMIN HCl 1,000 MG TABLET 1000 MG PO ×2 (09:21→16:24)
[2022-03-03] MEDS: Multivitamin TABLET 1 TAB PO (09:22)
[2022-03-03] MEDS: Loratadine 10 MG TABLET PO (09:22)
[2022-03-03] MEDS: lisinopriL 40 MG TABLET PO (09:22)
[2022-03-03] MEDS: Metoprolol Succinate ER 25 MG TAB.ER.24H PO (09:23)
[2022-03-03] MEDS: Buprenorphine/Naloxone 8/2 mg FILM 1 FILM SUBLINGUAL ×2 (09:23→21:01)
[2022-03-03] MEDS: Ferrous Sulfate 300 MG/5 ML LIQUID 150 MG PO (09:24)
--- NOTE | 2022-03-03 09:47 | MHC.CM.ED ---
Addendum entered by Nicki Mendes 03/03/22 14:58: Per Anna at [facility], insurance auth wasn't submitted until this morning. Original Note: Patient remains in ER overflow unit. T/W spoke with Anna, liaison for [facility]. She is verify if insurance auth has been obtained. Continue to monitor for d/c needs.
[2022-03-03] MEDS: Artificial Tears 15 ML DROPS 1 DROP EYE-BOTH ×4 (10:33→21:03)
[2022-03-03] MEDS: glipiZIDE XL 5 MG TAB.ER.24 PO (10:34)
--- NOTE | 2022-03-03 11:28 | PC.NURSE ---
Report given to MARSHALL Oquendo
[2022-03-03 11:31] LABS: Glucose, Whole Blood 196 mg/dL (60-115)
[2022-03-03] MEDS: Cyclobenzaprine HCl 10 MG TABLET PO (14:19)
[2022-03-03] MEDS: Acetaminophen 325 MG TABLET 650 MG PO (14:19)
[2022-03-03 15:16] VITALS: BP 139/71; PULSE 71; RESP 16; TEMP 36.4; O2SAT 97
[2022-03-03 15:17] LABS: Glucose, Whole Blood 122 mg/dL (60-115)
[2022-03-03] MEDS: Ibuprofen 800 MG TABLET PO (16:24)
[2022-03-03] MEDS: Acetaminophen 325 MG TABLET PO (16:25)
--- NOTE | 2022-03-03 16:48 | PHA.MEDREC ---
Pharmacy Consult ? Medication Reconciliation Pharmacy has completed the medication reconciliation. Spoke to patient directly. Everything has remained the same since his last admission except for his amlodipine. Patient has a recent fill for amlodipine with his past claim history, however, patient did not recognize the medication and stated he no longer takes it.
--- NOTE | 2022-03-03 18:39 | MHC.CM.ED ---
Insurance auth obtained. Facility now requesting level 1 exemption letter. Exception letter obtained and was already uploaded into care port. Message left with facility. Requested to also fax letter to them if they desire. Waiting for response from facility. Pt aware. Hopeful that patient can be transferred tomorrow. CM to follow for d/c needs.
[2022-03-03 19:58] VITALS: BP 156/85; PULSE 76; RESP 12; TEMP 36.6; O2SAT 96
[2022-03-03 19:58] LABS: Glucose, Whole Blood 141 mg/dL (60-115)
[2022-03-03 21:00] VITALS: BP 146/81
[2022-03-03] MEDS: Atorvastatin Calcium 40 MG TABLET PO (21:01)
[2022-03-03] MEDS: traZODone HCL 100 MG TABLET 300 MG PO (21:01)
[2022-03-03] MEDS: Tamsulosin HCL 0.4 MG CAPSULE PO (21:01)
[2022-03-03] MEDS: Insulin Glargine,Hum.rec.anlog 100 UNIT/ML 10 ML VIAL 45 UNIT SUBCUT (21:01)
[2022-03-03] MEDS: amLODIPine Besylate 10 MG TABLET PO (21:02)
[2022-03-03] MEDS: traZODone HCL 100 MG TABLET PO (21:02)
[2022-03-03] MEDS: Latanoprost 0.005 % Ophth Sol 2.5 ML DROPS 1 DROP EYE-LEFT (21:03)
--- NOTE | 2022-03-03 21:07 | PC.NURSE ---
This RN called pharmacy to verify dose of trazodone. Pharmacy approved dose.
--- NOTE | 2022-03-03 22:14 | PC.NURSE ---
Patient refusing flexeril and tylenol.
[2022-03-04] MEDS: Cyclobenzaprine HCl 10 MG TABLET PO ×2 (05:35→13:59)
[2022-03-04] MEDS: Omeprazole 20 MG CAPSULE.DR PO (05:36)
[2022-03-04 05:49] VITALS: RESP 16
[2022-03-04 07:03] VITALS: BP 126/69; PULSE 84; RESP 20; TEMP 36.4; O2SAT 95
[2022-03-04 07:06] LABS: Glucose, Whole Blood 128 mg/dL (60-115)
[2022-03-04] MEDS: Buprenorphine/Naloxone 8/2 mg FILM 1 FILM SUBLINGUAL (09:09)
[2022-03-04] MEDS: Aspirin Enteric Coated 81 MG TABLET.DR PO (09:09)
[2022-03-04] MEDS: lisinopriL 40 MG TABLET PO (09:10)
[2022-03-04] MEDS: metFORMIN HCl 1,000 MG TABLET 1000 MG PO (09:10)
[2022-03-04] MEDS: Metoprolol Succinate ER 25 MG TAB.ER.24H PO (09:10)
[2022-03-04] MEDS: Multivitamin TABLET 1 TAB PO (09:10)
[2022-03-04] MEDS: Ferrous Sulfate 300 MG/5 ML LIQUID 150 MG PO (09:12)
[2022-03-04] MEDS: Acetaminophen 325 MG TABLET 650 MG PO (09:26)
[2022-03-04] MEDS: glipiZIDE XL 5 MG TAB.ER.24 PO (10:35)
[2022-03-04] MEDS: Dorzolamide/Timolo 2.23%/0.68% 10 ML DRBTL 1 DROP EYE-BOTH (10:35)
[2022-03-04] MEDS: Loratadine 10 MG TABLET PO (10:35)
[2022-03-04 11:21] LABS: Glucose, Whole Blood 195 mg/dL (60-115)
[2022-03-04] MEDS: Artificial Tears 15 ML DROPS 1 DROP EYE-BOTH (11:23)
--- NOTE | 2022-03-04 11:24 | MHC.CM.ED ---
Addendum entered by Nicki Mendes 03/04/22 12:09: Per [facility], patient can discharge to their facility. [facility] booked for 2pm. Med nec with chart. Patient, Germaine RN and Kaylee KHANNA aware. Original Note: Patient remains in ER overflow. Insurance auth has been obtained by [facility]. Still waiting to hear from liaison about transfer. Attempting to reach Anna via telephone at [phone].Left message requesting return telephone call. Attempted to reach Maisha via telephone at [phone]. Left message requesting return telephone call. Continue to monitor for d/c needs.
== END 2022-03-04 15:01 | disposition skilled nursing facility (03) ==
PROVIDERS: Emergency Medicine; Nurse Practitioner Family; Physician Assistant; Emergency Provider Emergency Medicine Emergency Medical Services
DX: A49.01 Methicillin susceptible Staphylococcus aureus infection, unspecified site (principal); L03.116 Cellulitis of left lower limb; M79.605 Pain in left leg; R60.0 Localized edema; S80.211A Abrasion, right knee, initial encounter; E11.9 Type 2 diabetes mellitus without complications; I10 Essential (primary) hypertension; M54.2 Cervicalgia; R53.83 Other fatigue; F11.20 Opioid dependence, uncomplicated; J44.9 Chronic obstructive pulmonary disease, unspecified; X58.XXXA Exposure to other specified factors, initial encounter; E83.42 Hypomagnesemia; D72.829 Elevated white blood cell count, unspecified; R41.82 Altered mental status, unspecified; R07.9 Chest pain, unspecified; F17.200 Nicotine dependence, unspecified, uncomplicated; R06.02 Shortness of breath; Z79.82 Long term (current) use of aspirin; Z79.02 Long term (current) use of antithrombotics/antiplatelets; Z79.4 Long term (current) use of insulin; Y93.9 Activity, unspecified; Y92.9 Unspecified place or not applicable; Y99.9 Unspecified external cause status; Z20.822 Contact with and (suspected) exposure to COVID-19
CPT/HCPCS: 36415; 70450; 71045; 72125; 73610; 80053; 80143; 80179; 80307; 82077; 82550; 82803; 82947; 83605; 83735; 84484; 85025; 85652; 86140; 87040; 87635; 93005; 96361; 96365; 96366; 96367; 96374; 96375; 96376; 97162; 99285; J0690; J2270; J2405; J3370; J3475

== ENCOUNTER 2022-04-02 07:37 | Outpatient (REF) | payer OTHER, SELFPAY ==
--- NOTE | ~2022-04-02 | XR_ITS ---
EXAMINATION: XR ANKLE, LEFT CLINICAL INFORMATION: Pain. COMPARISON: Prior radiographs, most recently 03/01/2022. TECHNIQUE: AP, lateral, and mortise views of the left ankle. FINDINGS: Bony alignment and mineralization are normal. There is stable alignment status-post ORIF of distal fibular and medial malleolus fractures. Again, there is widening of the medial ankle mortise. Faint persistent fracture line is seen of the medial malleolus. The distal fibular fracture line is now poorly appreciated, with good callus formation. Boehler's angle is normal. There are small posterior plantar calcaneal spurs. There are surgical skin cruzito. There is generalized soft tissue swelling. XR/XR ankle LT min 3V IMPRESSION: There is stable alignment status-post ORIF of distal left fibula and medial malleolus fractures. The medial malleolus fracture shows stable distraction and no new callus formation. The distal fibular fracture line is now poorly appreciated, with good callus formation.
== END 2022-04-02 07:38 | disposition home or self-care (01) ==
LOC: HO.HOSX 07:37
PROVIDERS: Visit Provider Orthopaedic Surgery
DX: S82.842D Displaced bimalleolar fracture of left lower leg, subsequent encounter for closed fracture with routine healing (principal)
CPT/HCPCS: 73610; 99212

== ENCOUNTER → 2022-04-03 13:36 | Outpatient (BNVA) | payer OTHER, SELFPAY | PROVIDERS: PCP Internal Medicine; Visit Provider Internal Medicine | DX: R78.81 Bacteremia (principal); B95.61 Methicillin susceptible Staphylococcus aureus infection as the cause of diseases classified elsewhere; Z87.81 Personal history of (healed) traumatic fracture | CPT/HCPCS: 99212 ==

== ENCOUNTER → 2022-05-01 12:59 | Outpatient (BNVA) | payer OTHER, SELFPAY | PROVIDERS: Visit Provider Internal Medicine | DX: R78.81 Bacteremia (principal); B95.61 Methicillin susceptible Staphylococcus aureus infection as the cause of diseases classified elsewhere; Z87.81 Personal history of (healed) traumatic fracture | CPT/HCPCS: 99212 ==

== ENCOUNTER 2022-05-12 12:04 | Emergency (ER) | payer OTHER, SELFPAY | END 2022-05-12 14:47 | disposition left against medical advice (07) | PROVIDERS: Emergency Provider Emergency Medicine; PCP Internal Medicine | DX: K62.89 Other specified diseases of anus and rectum (principal); Z91.81 History of falling ==

== ENCOUNTER 2022-05-12 15:43 | Emergency (ER) | payer OTHER, SELFPAY | END 2022-05-12 19:02 | disposition left against medical advice (07) | PROVIDERS: Emergency Provider Emergency Medicine; PCP Internal Medicine | DX: N50.819 Testicular pain, unspecified (principal) ==

== ENCOUNTER 2022-05-13 15:37 | Emergency (ER) | payer OTHER, SELFPAY ==
--- NOTE | ~2022-05-13 | US_ITS ---
EXAMINATION: US SCROTUM AND PENIS CLINICAL INFORMATION: Testicular pain with priapism after injury 2 testicles and penis. COMPARISON: CT abdomen pelvis 02/13/2022. TECHNIQUE: A sonogram of the scrotum was performed assessing vyas-scale appearance and color Doppler flow. Spectral Doppler analysis of the arterial and venous flow were performed in the testes bilaterally. In addition, ultrasound of the penis was performed along with spectral Doppler analysis of arterial and venous flow. SCROTAL FINDINGS: Omental fat can be seen extending into both scrotal sacs indicative of a hernia. RIGHT: Right testicle measures 3.6 x 2.6 x 2.6 cm, volume 12.7 mL. No focal testicular parenchymal lesions are visualized. Spectral Doppler analysis of the arterial and venous flow is normal in the right testis. Right epididymal head is normal in size. No right hydrocele or varicocele is seen. Right epididymal Doppler flow is normal. LEFT: Left testicle measures 3.6 x 2.5 x 3.3 cm, volume 15.5 mL. Left testis is slightly larger than the right and is heterogeneous and hypervascular. Spectral Doppler analysis of the arterial and venous flow is increased in the left testis. Left epididymal head is normal in size but contains a 3 x 4 x 3 mm cyst. A small left-sided varicocele is present. No left varicocele is seen. Left epididymal Doppler flow is normal. PENILE FINDINGS: No significant flow is seen in the corpora cavernosa or cavernosal arteries which suggests low flow priapism with ischemia. Flow is present in the dorsal vein and dorsal arteries. The corpora cavernosa appear intact without evidence of a fracture. No AV fistula is seen. US/US scrotum doppler IMPRESSION: Lack of flow in the corpora cavernosa and cavernosal arteries suggest low-flow priapism. Recommend a corpora blood gas measurement along with urgent urologic consult .
--- NOTE | ~2022-05-13 | US_ITS ---
EXAMINATION: US SCROTUM AND PENIS CLINICAL INFORMATION: Testicular pain with priapism after injury 2 testicles and penis. COMPARISON: CT abdomen pelvis 02/13/2022. TECHNIQUE: A sonogram of the scrotum was performed assessing vyas-scale appearance and color Doppler flow. Spectral Doppler analysis of the arterial and venous flow were performed in the testes bilaterally. In addition, ultrasound of the penis was performed along with spectral Doppler analysis of arterial and venous flow. SCROTAL FINDINGS: Omental fat can be seen extending into both scrotal sacs indicative of a hernia. RIGHT: Right testicle measures 3.6 x 2.6 x 2.6 cm, volume 12.7 mL. No focal testicular parenchymal lesions are visualized. Spectral Doppler analysis of the arterial and venous flow is normal in the right testis. Right epididymal head is normal in size. No right hydrocele or varicocele is seen. Right epididymal Doppler flow is normal. LEFT: Left testicle measures 3.6 x 2.5 x 3.3 cm, volume 15.5 mL. Left testis is slightly larger than the right and is heterogeneous and hypervascular. Spectral Doppler analysis of the arterial and venous flow is increased in the left testis. Left epididymal head is normal in size but contains a 3 x 4 x 3 mm cyst. A small left-sided varicocele is present. No left varicocele is seen. Left epididymal Doppler flow is normal. PENILE FINDINGS: No significant flow is seen in the corpora cavernosa or cavernosal arteries which suggests low flow priapism with ischemia. Flow is present in the dorsal vein and dorsal arteries. The corpora cavernosa appear intact without evidence of a fracture. No AV fistula is seen. US/US duplex AV flow penis comp IMPRESSION: Lack of flow in the corpora cavernosa and cavernosal arteries suggest low-flow priapism. Recommend a corpora blood gas measurement along with urgent urologic consult .
[2022-05-13 15:41] VITALS: BP 168/98; PULSE 85; RESP 18; TEMP 36.8; O2SAT 97; BMI 29.5
[2022-05-13 16:16] LABS: Hematocrit 33.1 % (42.0-52.0); Hemoglobin 10.4 g/dl (14.0-18.0); Mean Corpuscular HGB Conc 31.4 g/dl (31.0-36.0); Mean Corpuscular Hemoglobin 27.3 pg (27.0-33.0); Mean Corpuscular Volume 86.9 fL (80.0-98.0); Mean Platelet Volume 8.5 fL (9.4-12.4); Platelet Count 501 X10*3/uL (160-400); Red Blood Count 3.81 X10*6/uL (4.60-5.80); Red Cell Distribution Width 12.8 % (11.0-16.0); White Blood Count 13.3 X10*3/uL (4.8-10.8)
[2022-05-13 16:36] LABS: Anion Gap 15 (12-20); Blood Urea Nitrogen 10 mg/dL (9-16); Calcium 8.6 mg/dL (8.4-10.2); Carbon Dioxide 29 mmol/L (22-29); Chloride 98 mmol/L (96-108); Creatinine Clr Calc Pharmacy 110.9; Estimated Glomerular Filt Rate > 60; Glucose Random 204 mg/dL (60-115); Sodium 138 mmol/L (135-145)
[2022-05-13] MEDS: HYDROmorphone HCl 1 MG/ML SYRINGE IM (17:52)
--- NOTE | 2022-05-13 18:11 | ED_ITS ---
HPI - Male Genitourinary General Chief complaint: Urogenital-Male Stated complaint: Fractured Penis Time Seen by Provider: 05/13/22 16:53 Source: patient Mode of arrival: ambulatory Limitations: no limitations History of Present Illness HPI Narrative: Patient comes in the emergency room complaining penile pain and testicular pain for 3 weeks. Patient states that approximately 3 weeks ago, he was seen his car, he accidentally sat in his testicles. Since then, patient has had testicular pain and priapism. Patient denies hematuria or dysuria. Related Data Home Medications Medication Instructions Recorded Confirmed aspirin 81 mg tablet,delayed 81 mg PO DAILY 06/06/20 02/25/22 release lisinopril 40 mg tablet 40 mg PO DAILY 06/06/20 02/25/22 metoprolol succinate 25 mg 25 mg PO DAILY 06/06/20 02/25/22 tablet,extended release 24 hr buprenorphine 8 mg-naloxone 2 mg 1 film sublingual BID 12/06/20 02/25/22 sublingual film atorvastatin 40 mg tablet 40 mg PO BEDTIME 03/26/21 02/25/22 dorzolamide 22.3 mg-timolol 6.8 1 drp ophthalmic (eye) BID 03/26/21 02/25/22 mg/mL eye drops glipizide 5 mg tablet, extended 5 mg PO DAILY 03/26/21 02/25/22 release 24 hr insulin detemir U-100 100 unit/mL 42 unit subcut BID 03/26/21 02/25/22 subcutaneous solution (Levemir U-100 Insulin) latanoprost 0.005 % eye drops 1 drp ophthalmic-Left BEDTIME 03/26/21 02/25/22 metformin 1,000 mg tablet 1,000 mg PO BID 03/26/21 02/25/22 multivitamin-ferrous 1 tab PO DAILY 03/26/21 02/25/22 fumarate-folic acid 18 mg-400 mcg tablet (Certavite-Antioxidant) omega-3 fatty acids-fish oil 340 1 cap PO TID 03/26/21 02/25/22 mg-1,000 mg capsule (Fish Oil) peg [id number] 1 1 drp ophthalmic (eye) QID 03/26/21 02/25/22 %-0.2 %-0.2 % eye drops (Dry Eye Relief) trazodone 100 mg tablet 100 mg PO BEDTIME 03/26/21 02/25/22 trazodone 150 mg tablet 300 mg PO BEDTIME 03/26/21 02/25/22 loratadine 10 mg tablet 10 mg PO DAILY 09/11/21 02/25/22 Previous Rx's Medication Instructions Recorded ferrous sulfate 15 mg iron (75 2 ml PO DAILY 30 days #60 mL 09/02/21 mg)/mL oral drops oxybutynin chloride 5 mg 5 mg PO DAILY 90 days #90 tabs 09/11/21 tablet,extended release 24 hr tamsulosin 0.4 mg capsule 0.4 mg PO BEDTIME 90 days #90 caps 09/11/21 cefazolin 2 gram/50 mL in dextrose 2 g (50 mL) IV Q8H 52 days #0 ea 02/19/22 (iso-osmotic) intravenous piggyback omeprazole 20 mg capsule,delayed 20 mg PO DAILY 90 days #90 caps 02/27/22 release buprenorphine 8 mg-naloxone 2 mg 1 film buccal BID #30 ea 03/04/22 sublingual film doxycycline hyclate 100 mg capsule 100 mg PO BID 30 days #60 caps 04/03/22 Allergies Allergy/AdvReac Type Severity Reaction Status Date / Time No Known Allergies Allergy Verified 05/01/22 13:25 Review of Systems Review of Systems: Constitutional : No Weight loss, No Fever, No Chills, No Night Sweats, No Fatigue, No Malaise ENT/Mouth : No Hearing loss, No Ear Pain, No Nasal Congestion, No Sinus Pain, No Hoarseness, No sore throat, No Rhinorrhea, No Swallowing Difficulty Eyes: No Eye Pain, No Swelling, No Redness, No Foreign Body, No Discharge, No Vision Changes Cardiovascular : No Chest Pain, No SOB, No Dyspnea on Exertion, No Orthopnea, No Edema, No Palpitations Respiratory : No Cough, No Sputum, No Wheezing, No Smoke Exposure, No Dyspnea Gastrointestinal : No Nausea, No Vomiting, No Diarrhea, No Constipation, No abdominal Pain, No Hematochezia, No Melena Genitourinary : Complaining of bilateral testicular pain and p.o. potassium for 3 weeks, No Dysuria, No Urinary Frequency, No Hematuria, No Urinary Incontinence, No Urgency, No Flank Pain, No Urinary Flow Changes, No Hesitancy Musculoskeletal : No joint pain, No Myalgias, No Joint Swelling Skin : No Skin Lesions, No rash Neuro : No Weakness, No Numbness, No Paresthesias, No Loss of Consciousness, No Dizziness, No Headache Psych : No Anxiety/Panic, No Depression, No SI/HI/AH/VH, No Social Issues, Heme/Lymph: No Bruising, No Bleeding,No Lymphadenopathy Endocrine : No Polyuria, No Polydipsia, No Temperature Intolerance [facility] Past Medical History Medical History Anxiety CAD (coronary artery disease) Chronic constipation COPD (chronic obstructive pulmonary disease) Diabetes mellitus Genital herpes GERD (gastroesophageal reflux disease) History of adenomatous polyp of colon Hypertension Opioid dependence on agonist therapy AJUN (obstructive sleep apnea) Pancreatic abnormality Prepatellar bursitis, left knee Surgical History History of ankle surgery Family History Family History Mother No problems noted. Father Liver cancer Social History Social History Household Members: None Housing: Apartment Do you presently have visiting nurse or other home services: No Alcohol intake: never Patient Tobacco Use Status: Current everyday Tobacco user Tobacco use type: Cigarette Cigarettes Per Day: 3 e-Cigarette/Vaping Use: Currently Using Second Hand Smoke Exposure: No Use of substances other than those prescribed or required for medical reasons: No Substance Use Type: Heroin Advance Directives: Yes Advance Directives on File: Yes Advance Directives Date on File: 01/28/22 service: No Current occupational status: retired and disabled Current occupation: right handed Physical Exam Vital Signs: Vital Signs: Last Vital Signs Temp 98.2 F 05/13/22 15:41 Pulse 85 05/13/22 15:41 Resp 18 05/13/22 15:41 BP 168/98 H 05/13/22 15:41 Pulse Ox 97 05/13/22 15:41 O2 Del Method 05/13/22 15:41 BMI result Body Mass Index 29.5 Const: Other: Appearance: Alert. Oriented X3. Patient seems very uncomfortable Eyes: Pupils equal, round and reactive to light. ENT: Pharynx normal. Neck: Normal inspection. Neck supple. No lymph nodes noted. No crepitus CVS: Normal heart rate and rhythm. Pulses normal. Normal S1 and S2 Respiratory: No respiratory distress. Breath sounds normal. No Wheezing. No rales : Patient has priapism, the penis is very tender to touch. Patient also complaining of bilateral testicular pain, much worse on the right side. Abdomen: Soft and nontender. No rigidity. No distention. Skin: Skin warm and dry. Normal skin color. Normal skin turgor. Extremities: No lower extremity edema. No Lacerations. No Rash Neuro: Oriented X 3. No motor deficit. No sensory deficit. Moving all extremities. No slurred speech. CN 2 through 12 grossly intact Psych: calm, cooperative, normal affect Course Course Course Narrative: I discussed the patient with Dr. Johnson. at 17:33. Dr. Johnson requested that penile venous blood sample. I attempted to get blood with 21G butterfly, blood was obtained, sent to the lab, but the blood clotted. I asked Dr. Bennett for assistance with the blood drawn for the venous blood gases from the penis. Dr. Bennett was able to get some blood with an 18 gauge syringe. Blood was sent to the lab but clotted again. I discussed with Dr. Johnson that we have been unable to get blood gases. At this time, Dr. Johnson recommended a penile Doppler to rule out arterial venous fistula and to determine flow Patient has received 2 mg of Dilaudid IM At this time, 21:12, the penile as coral Dopplers have not been read by Radiology yet. Patient has had multiple times that he was to leave against medical advice. So far, I have been able to convince the patient to stay. I have had lengthy discussions with the patient regarding the risks of leaving against AMA with priapism. For now, patient is agreeable to stay. 21:43. Dr. Johnson recommends penile injection with phenylephrine. I discussed this with the patient. Patient states that he is tired of waiting. Patient does not want to wait for any further procedures. Patient states that he will come tomorrow. I told the patient that we need to inject his penis with phenylephrine to avoid possible permanent erectile dysfunction. Patient is well aware. Patient declines to stay and have any further interventions until tomorrow. Patient states that he is worried that his is here, and wants to take her home. Patient is concerned about his home medications. I discussed with the patient that he can be provided with his home medications here, a meal, and his wants him to stay. However, patient again respectfully declined, and would like to leave against medical advice. I discussed the above-mentioned with Dr. Johnson, aware the patient will be leaving against medical advice, likely to return tomorrow morning. MDM - Male Genitourinary Lab Data Result diagrams: 05/13/22 16:06 05/13/22 16:06 Labs: Lab Results 05/13/22 05/13/22 05/13/22 Range/Units 16:06 16:06 20:43 WBC 13.3 H (4.8-10.8) X10*3/uL RBC 3.81 L (4.60-5.80) X10*6/uL Hgb 10.4 L (14.0-18.0) g/dl Hct 33.1 L (42.0-52.0) % MCV 86.9 (80.0-98.0) fL MCH 27.3 (27.0-33.0) pg MCHC 31.4 (31.0-36.0) g/dl RDW 12.8 (11.0-16.0) % Plt Count 501 H (160-400) X10*3/uL MPV 8.5 L (9.4-12.4) fL Absolute Nucleated RBC 0.000 (0.0-0.012) X10*3/uL Nucleated RBC % (auto) 0.0 (0.0-0.2) /100WBC VBG pH 7.43 (7.32-7.43) VBG pCO2 56 mmHg VBG pO2 26 mmHg VBG HCO3 37 H (22-26) mmol/L VBG O2 Saturation 36.0 % VBG Base Excess 11.5 mmol/L Sodium 138 (135-145) mmol/L Potassium 4.0 (3.3-5.1) mmol/L Chloride 98 (96-108) mmol/L Carbon Dioxide 29 (22-29) mmol/L Anion Gap 15 (12-20) BUN 10 (9-16) mg/dL Creatinine 0.66 (0.5-1.4) mg/dL Estim Creat Clear Calc 110.9 Estimated GFR > 60 Random Glucose 204 H (60-115) mg/dL Calcium 8.6 D (8.4-10.2) mg/dL Discharge Plan Discharge Clinical Impression: Priapism Patient Disposition: Left Against Medical Advice Instructions: Priapism (ED) Additional Instructions: You declined to stay in the hospital to be injected with phenylephrine to help resolve the priapism. You are at risk of erectile dysfunction, over 50%. Please return as soon as possible. Please follow-up with your primary care physician tomorrow. If you have any worsening or new symptoms, please return to the emergency room or call 911 Prescriptions: No Action ferrous sulfate 15 mg iron (75 mg)/mL drops 2 ml PO DAILY 30 Days Qty: 60 4RF omeprazole 20 mg capsule,delayed release(DR/EC) 20 mg PO DAILY 90 Days Qty: 90 1RF latanoprost 0.005 % drops 1 drp ophthalmic-Left BEDTIME atorvastatin 40 mg tablet 40 mg PO BEDTIME glipizide 5 mg tablet extended release 24hr 5 mg PO DAILY trazodone 100 mg tablet 100 mg PO BEDTIME metformin 1,000 mg tablet 1,000 mg PO BID dorzolamide-timolol 22.3-6.8 mg/mL drops 1 drp ophthalmic (eye) BID Dry Eye Relief 1-0.2-0.2 % drops 1 drp ophthalmic (eye) QID Levemir U-100 Insulin 100 unit/mL solution 42 unit subcut BID Fish Oil 340-1,000 mg capsule 1 cap PO TID Certavite-Antioxidant 18-400 mg-mcg tablet 1 tab PO DAILY trazodone 150 mg tablet 300 mg PO BEDTIME cefazolin in dextrose (iso-os) 2 gram/50 mL Piggyback 2 g IV Q8H 52 Days Qty: 0 0RF buprenorphine-naloxone 8-2 mg film 1 film buccal BID Qty: 30 0RF aspirin 81 mg tablet,delayed release (DR/EC) 81 mg PO DAILY lisinopril 40 mg tablet 40 mg PO DAILY metoprolol succinate 25 mg tablet extended release 24 hr 25 mg PO DAILY buprenorphine-naloxone 8-2 mg film 1 film sublingual BID loratadine 10 mg tablet 10 mg PO DAILY oxybutynin chloride 5 mg tablet extended release 24hr 5 mg PO DAILY 90 Days Qty: 90 3RF tamsulosin 0.4 mg capsule 0.4 mg PO BEDTIME 90 Days Qty: 90 3RF doxycycline hyclate 100 mg capsule 100 mg PO BID 30 Days Qty: 60 1RF
[2022-05-13] MEDS: HYDROmorphone HCl 1 MG/ML SYRINGE IVPUSH (19:31)
[2022-05-13 20:49] LABS: VBG Base Excess 11.5 mmol/L; VBG HCO3 37 mmol/L (22-26); VBG pCO2 56 mmHg; VBG pH 7.43 (7.32-7.43); VBG pO2 26 mmHg
[2022-05-13 20:53] LABS: Venous Blood Gas Refer to POC result
== END 2022-05-13 22:08 | disposition left against medical advice (07) ==
PROVIDERS: Emergency Provider Emergency Medicine; PCP Internal Medicine
DX: N48.30 Priapism, unspecified (principal); N48.89 Other specified disorders of penis; N50.812 Left testicular pain; N50.811 Right testicular pain; F17.210 Nicotine dependence, cigarettes, uncomplicated; Z71.6 Tobacco abuse counseling; Z79.899 Other long term (current) drug therapy
CPT/HCPCS: 36415; 76870; 80048; 82803; 85027; 93975; 93980; 96372; 99284; J1170

== ENCOUNTER 2022-05-14 13:56 | Outpatient (REF) | payer OTHER, SELFPAY ==
--- NOTE | ~2022-05-14 | XR_ITS ---
EXAMINATION: XR ANKLE, LEFT CLINICAL INFORMATION: Pain COMPARISON: X-ray 04/02/2022 TECHNIQUE: AP, lateral, and mortise views of the left ankle. FINDINGS: Status post-ORIF of a medial malleolar fracture. Stable alignment. Fracture plane remains visible. Increasing periosteal reaction/callus formation along the medial aspect of the distal tibia. Status post-ORIF of the fibular fracture. Intact hardware. Stable alignment. Ill-defined fracture plane, similar to previous. Redemonstrated is widening of the medial clear space. Mild soft tissue swelling. Bones are osteopenic. No new acute fractures identified. XR/XR ankle LT min 3V IMPRESSION: Stable alignment status post-ORIF of a distal medial malleolar fracture. Fracture plane remains visible. Increasing callus formation. Status post-ORIF of distal femoral fracture, stable alignment, partial healing. Soft tissue swelling.
== END 2022-05-14 13:57 | disposition home or self-care (01) ==
LOC: HO.HOSX 13:56
PROVIDERS: Visit Provider Orthopaedic Surgery
DX: M25.572 Pain in left ankle and joints of left foot (principal)
CPT/HCPCS: 73610

== ENCOUNTER 2022-05-15 13:22 | Emergency (ER) | payer OTHER, SELFPAY ==
[2022-05-15 14:01] VITALS: BP 148/80; PULSE 81; RESP 17; TEMP 36.6; O2SAT 98; BMI 32.3
== END 2022-05-15 18:11 | disposition left against medical advice (07) ==
PROVIDERS: Emergency Provider Emergency Medicine; PCP Internal Medicine
DX: N50.89 Other specified disorders of the male genital organs (principal)
CPT/HCPCS: 99281

== ENCOUNTER 2022-05-16 11:52 | Emergency (ER) | payer OTHER, SELFPAY ==
[2022-05-16 13:09] VITALS: BP 121/55; PULSE 86; RESP 16; TEMP 36.8; O2SAT 95; BMI 30.4
== END 2022-05-16 19:25 | disposition left against medical advice (07) ==
PROVIDERS: Emergency Provider Emergency Medicine; PCP Internal Medicine
DX: N50.89 Other specified disorders of the male genital organs (principal)
CPT/HCPCS: 99281

== ENCOUNTER 2022-05-18 14:08 | Emergency (ER) | payer OTHER, SELFPAY ==
[2022-05-18 14:10] VITALS: BP 159/78; PULSE 90; RESP 18; TEMP 36.6; O2SAT 97; BMI 31.3
[2022-05-18 14:33] LABS: MANUAL DIFF FLAG NO
[2022-05-18 14:36] LABS: Basophils Percent Auto 0.2 % (0-2); Eosinophils Absolute Auto 0.1 X10*3/uL (0.0-0.4); Eosinophils Percent Auto 0.5 % (0-4); Hematocrit 33.1 % (42.0-52.0); Hemoglobin 10.7 g/dl (14.0-18.0); Imm Gran Abs Auto 0.09 X10*3/uL (0.00-0.03); Imm Gran Pct Auto 0.7 % (0.0-0.4); Lymphocytes Absolute Auto 2.1 X10*3/uL (1.2-4.9); Lymphocytes Percent Auto 16.4 % (20-40); Mean Corpuscular HGB Conc 32.3 g/dl (31.0-36.0); Mean Corpuscular Hemoglobin 27.6 pg (27.0-33.0); Mean Corpuscular Volume 85.3 fL (80.0-98.0); Mean Platelet Volume 8.1 fL (9.4-12.4); Monocytes Absolute Auto 0.7 X10*3/uL (0.1-1.2); Monocytes Percent Auto 5.5 % (2-11); Neutrophils Absolute Auto 9.9 x10*3/uL (2.0-8.3); Neutrophils Percent Auto 76.7 % (45-73); Platelet Count 426 X10*3/uL (160-400); Red Blood Count 3.88 X10*6/uL (4.60-5.80); Red Cell Distribution Width 12.9 % (11.0-16.0); White Blood Count 12.9 X10*3/uL (4.8-10.8)
[2022-05-18 14:40] LABS: Appearance Urine Clear; Color Urine Yellow; Glucose Urine UA Negative (Negative); Leukocyte Esterase Urine Negative (Negative); Nitrite Urine Negative (Negative); Specific Gravity - Urine <= 1.005 (1.005-1.025); Urine Blood Negative (Negative); Urine Ketones Negative (Negative); Urine Protein Negative (Neg-Trace)
[2022-05-18 14:51] LABS: Alanine Aminotransferase 16 U/L (0-40); Albumin Level 3.3 g/dL (3.5-5.0); Alkaline Phosphatase 117 U/L (39-117); Anion Gap 18 (12-20); Aspartate Amino Transferase 19 U/L (5-37); Bilirubin Total 0.3 mg/dL (0.0-1.0); Blood Urea Nitrogen 7 mg/dL (9-16); Carbon Dioxide 29 mmol/L (22-29); Chloride 94 mmol/L (96-108); Creatinine Clr Calc Pharmacy 115.8; Estimated Glomerular Filt Rate > 60; Glucose Random 144 mg/dL (60-115); Potassium 3.6 mmol/L (3.3-5.1); Sodium 137 mmol/L (135-145); Total Protein 7.6 g/dL (6.5-8.0)
[2022-05-18 19:47] VITALS: BP 172/91; PULSE 82; RESP 18; TEMP 36.4; O2SAT 94
== END 2022-05-18 21:15 | disposition left against medical advice (07) ==
PROVIDERS: Emergency Provider Emergency Medicine; PCP Internal Medicine
DX: K62.89 Other specified diseases of anus and rectum (principal); M79.606 Pain in leg, unspecified
CPT/HCPCS: 36415; 80053; 81003; 85025; 99283

== ENCOUNTER 2022-05-21 14:12 | Emergency (ER) | payer OTHER, SELFPAY ==
[2022-05-21 14:21] VITALS: BP 160/90; PULSE 88; O2SAT 97
[2022-05-21 14:30] VITALS: BP 163/81; PULSE 84; RESP 20; TEMP 36.7; O2SAT 95; BMI 31.3
[2022-05-21 15:31] VITALS: RESP 18
[2022-05-21] MEDS: HYDROmorphone HCl 1 MG/ML SYRINGE IVPUSH (15:31)
[2022-05-21 15:34] LABS: VBG Base Excess 3.5 mmol/L; VBG HCO3 27 mmol/L (22-26); VBG pCO2 40 mmHg; VBG pH 7.44 (7.32-7.43); VBG pO2 64 mmHg
[2022-05-21 15:43] LABS: Venous Blood Gas Refer to POC result
[2022-05-21 15:45] LABS: Alanine Aminotransferase 12 U/L (0-40); Albumin Level 3.1 g/dL (3.5-5.0); Alkaline Phosphatase 126 U/L (39-117); Anion Gap 15 (12-20); Aspartate Amino Transferase 15 U/L (5-37); Bilirubin Total 0.3 mg/dL (0.0-1.0); Blood Urea Nitrogen 12 mg/dL (9-16); C Reactive Protein 6.84 mg/dL (< or = 0.50); Calcium 8.7 mg/dL (8.4-10.2); Carbon Dioxide 27 mmol/L (22-29); Chloride 96 mmol/L (96-108); Creatinine Clr Calc Pharmacy 108.7; Estimated Glomerular Filt Rate > 60; Glucose Random 214 mg/dL (60-115); Potassium 3.8 mmol/L (3.3-5.1); Sodium 134 mmol/L (135-145); Total Protein 6.9 g/dL (6.5-8.0)
[2022-05-21 15:59] LABS: Basophils Absolute Auto 0.1 X10*3/uL (0.0-0.2); Basophils Percent Auto 0.3 % (0-2); Eosinophils Absolute Auto 0.2 X10*3/uL (0.0-0.4); Hematocrit 30.6 % (42.0-52.0); Imm Gran Pct Auto 0.6 % (0.0-0.4); Lymphocytes Absolute Auto 2.7 X10*3/uL (1.2-4.9); Lymphocytes Percent Auto 15.9 % (20-40); Mean Corpuscular HGB Conc 32.7 g/dl (31.0-36.0); Mean Corpuscular Hemoglobin 27.8 pg (27.0-33.0); Mean Platelet Volume 8.3 fL (9.4-12.4); Monocytes Absolute Auto 0.8 X10*3/uL (0.1-1.2); Monocytes Percent Auto 5.1 % (2-11); Neutrophils Absolute Auto 12.8 x10*3/uL (2.0-8.3); Neutrophils Percent Auto 77.1 % (45-73); Platelet Count 422 X10*3/uL (160-400); White Blood Count 16.6 X10*3/uL (4.8-10.8)
[2022-05-21 16:01] LABS: MANUAL DIFF FLAG NO
--- NOTE | 2022-05-21 16:27 | ED_ITS ---
HPI - Male Genitourinary General Chief complaint: Urogenital-Male Stated complaint: penis swelling Time Seen by Provider: 05/21/22 14:30 Source: patient Limitations: no limitations History of Present Illness HPI Narrative: This is a 71-year-old male who complains of ?swelling in his penis? for several days. Patient states he was seen here previously and had injections in his penis and that since then he has had the swelling. He also notes he was here few days ago and waited 9 hours without being seen and then left. He is on trazodone. He denies taking any medicine like Viagra. He also has had healing wounds to his left ankle for which he is being followed and states he is due to have surgery in a few months. Denies any recent fever. He states he has been able to urinate. He complains of pain to his penis primarily and does not think his left foot or ankle is an acute problem that needs to be addressed Related Data Home Medications Medication Instructions Recorded Confirmed aspirin 81 mg tablet,delayed 81 mg PO DAILY 06/06/20 02/25/22 release lisinopril 40 mg tablet 40 mg PO DAILY 06/06/20 02/25/22 metoprolol succinate 25 mg 25 mg PO DAILY 06/06/20 02/25/22 tablet,extended release 24 hr buprenorphine 8 mg-naloxone 2 mg 1 film sublingual BID 12/06/20 02/25/22 sublingual film atorvastatin 40 mg tablet 40 mg PO BEDTIME 03/26/21 02/25/22 dorzolamide 22.3 mg-timolol 6.8 1 drp ophthalmic (eye) BID 03/26/21 02/25/22 mg/mL eye drops glipizide 5 mg tablet, extended 5 mg PO DAILY 03/26/21 02/25/22 release 24 hr insulin detemir U-100 100 unit/mL 42 unit subcut BID 03/26/21 02/25/22 subcutaneous solution (Levemir U-100 Insulin) latanoprost 0.005 % eye drops 1 drp ophthalmic-Left BEDTIME 03/26/21 02/25/22 metformin 1,000 mg tablet 1,000 mg PO BID 03/26/21 02/25/22 multivitamin-ferrous 1 tab PO DAILY 03/26/21 02/25/22 fumarate-folic acid 18 mg-400 mcg tablet (Certavite-Antioxidant) omega-3 fatty acids-fish oil 340 1 cap PO TID 03/26/21 02/25/22 mg-1,000 mg capsule (Fish Oil) peg [id number] 1 1 drp ophthalmic (eye) QID 03/26/21 02/25/22 %-0.2 %-0.2 % eye drops (Dry Eye Relief) trazodone 100 mg tablet 100 mg PO BEDTIME 03/26/21 02/25/22 trazodone 150 mg tablet 300 mg PO BEDTIME 03/26/21 02/25/22 loratadine 10 mg tablet 10 mg PO DAILY 09/11/21 02/25/22 Previous Rx's Medication Instructions Recorded ferrous sulfate 15 mg iron (75 2 ml PO DAILY 30 days #60 mL 09/02/21 mg)/mL oral drops oxybutynin chloride 5 mg 5 mg PO DAILY 90 days #90 tabs 09/11/21 tablet,extended release 24 hr tamsulosin 0.4 mg capsule 0.4 mg PO BEDTIME 90 days #90 caps 09/11/21 cefazolin 2 gram/50 mL in dextrose 2 g (50 mL) IV Q8H 52 days #0 ea 02/19/22 (iso-osmotic) intravenous piggyback omeprazole 20 mg capsule,delayed 20 mg PO DAILY 90 days #90 caps 02/27/22 release buprenorphine 8 mg-naloxone 2 mg 1 film buccal BID #30 ea 03/04/22 sublingual film doxycycline hyclate 100 mg capsule 100 mg PO BID 30 days #60 caps 04/03/22 tramadol 50 mg tablet 50 - 100 mg PO Q6H PRN pain #20 05/21/22 tabs Allergies Allergy/AdvReac Type Severity Reaction Status Date / Time No Known Allergies Allergy Verified 05/01/22 13:25 Review of Systems Review of Systems: Yes all other systems are reviewed and are negative Constitutional: Constitutional: Reports as per HPI and Denies fever(s) Eyes: Eyes: Reports as per HPI and Reports no additional eye complaints ENT: Reports system reviewed and no additional complaints, except as documented, Reports as per HPI, Denies nasal congestion, Denies nasal discharge and Denies sore throat Cardiovascular: Cardiovascular: Reports as per HPI, Denies chest pain and Denies dyspnea Respiratory: Respiratory: Reports as per HPI, Denies cough and Denies dyspnea Gastrointestinal: Gastrointestinal: Reports as per HPI, Denies abdominal pain, Denies diarrhea and Denies vomiting Genitourinary: Genitourinary: Reports as per HPI, Denies scrotal swelling and Denies testicular pain Comments: Penile swelling Musculoskeletal: Musculoskeletal: Reports no additional musculoskeletal complaints and Denies numbness Comments: Left foot and ankle pain, chronic Integumentary/Breasts: Skin/Breast: Reports as per HPI and Denies rash Neurologic: Reports as per HPI, Denies focal weakness and Denies numbness Psychiatric: Psychiatric: Reports no additional psychiatric complaints and Reports as per HPI Endocrine: Endocrine: Reports no additional endocrine complaints and Reports as per HPI Hematologic/Lymphatic: Hematologic/Lymphatic: Reports no additional hematologic/lymphatic complaints, Reports as per HPI and Reports other (No peripheral edema) [facility] Past Medical History Medical History Anxiety CAD (coronary artery disease) Chronic constipation COPD (chronic obstructive pulmonary disease) Diabetes mellitus Genital herpes GERD (gastroesophageal reflux disease) History of adenomatous polyp of colon Hypertension Opioid dependence on agonist therapy JAUN (obstructive sleep apnea) Pancreatic abnormality Prepatellar bursitis, left knee Surgical History History of ankle surgery Family History Family History Mother No problems noted. Father Liver cancer Social History Social History Household Members: None Housing: Apartment Do you presently have visiting nurse or other home services: No Alcohol intake: former Patient Tobacco Use Status: Current everyday Tobacco user Tobacco use type: Cigarette Cigarettes Per Day: 3 e-Cigarette/Vaping Use: Currently Using Second Hand Smoke Exposure: No Substance Use Type: Heroin Advance Directives Date on File: 01/28/22 service: No Current occupational status: retired and disabled Current occupation: right handed Physical Exam Vital Signs: Vital Signs: Last Vital Signs Temp 98 F 05/21/22 16:47 Pulse 75 05/21/22 16:47 Resp 16 05/21/22 16:47 BP 138/71 05/21/22 16:47 Pulse Ox 94 05/21/22 16:47 O2 Del Method 05/21/22 16:47 BMI result Body Mass Index 31.3 Const: Other: PERRLA Conj [place] Mucous membranes moist Throat clear Neck supple Lungs CTA Heart RRR no murmurs rubs or gallops Abd soft, non tender, non distended Genitourinary: Susan priapism with tenderness, scrotum/testicle is normal Extremities no pitting edema. Left ankle and foot with chronic appearing swelling, mild erythema and warmth to touch. There are no susan the open or draining wounds. There are due to fear to be some chronic healing wounds which are epithelialized Neuro alert and oriented x 3, non focal MDM - Male Genitourinary MDM Narrative Medical decision making narrative: The patient was given Dilaudid 1 mg IV for pain[address] Dr[address] Johnson evaluate the patient and, given the chronicity of his priapism, is to do a procedure and 3 days, on Wednesday of next week. Review the patient's records reveals the patient did have a bimalleolar fracture of his left ankle status post ORIF which was complicated by MSSA infection. The patient was on IV Kefzol for 6 weeks. He was evaluated by Orthopedics 7 days ago, as well as by Infectious Diseases about 2 weeks ago. Patient reports that his ankle is chronically painful but denies any recent progression of symptoms, increased swelling or redness or pain, denies fever. He has been using an Unna boot. The patient has a white count of 16.6 however he has had chronic leukocytosis, the last 1 being around 13 about a week ago. Patient is afebrile, not ill appearing. Lab Data Attestation: I reviewed the patient's lab results. Result diagrams: 05/21/22 15:45 05/21/22 15:22 Labs: Lab Results 05/21/22 05/21/22 05/21/22 Range/Units 15:22 15:25 15:45 WBC 16.6 H (4.8-10.8) X10*3/uL RBC 3.60 L (4.60-5.80) X10*6/uL Hgb 10.0 L (14.0-18.0) g/dl Hct 30.6 L (42.0-52.0) % MCV 85.0 (80.0-98.0) fL MCH 27.8 (27.0-33.0) pg MCHC 32.7 (31.0-36.0) g/dl RDW 13.0 (11.0-16.0) % Plt Count 422 H (160-400) X10*3/uL MPV 8.3 L (9.4-12.4) fL Immature Gran % (Auto) 0.6 H (0.0-0.4) % Neut % (Auto) 77.1 H (45-73) % Lymph % (Auto) 15.9 L (20-40) % [place] % (Auto) 5.1 (2-11) % Eos % (Auto) 1.0 (0-4) % Baso % (Auto) 0.3 (0-2) % Lymph # (Auto) 2.7 (1.2-4.9) X10*3/uL [place] # (Auto) 0.8 (0.1-1.2) X10*3/uL Eos # (Auto) 0.2 (0.0-0.4) X10*3/uL Baso # (Auto) 0.1 (0.0-0.2) X10*3/uL Abs Immat Gran (auto) 0.10 H (0.00-0.03) X10*3/uL Absolute Neuts (auto) 12.8 H (2.0-8.3) x10*3/uL Absolute Nucleated RBC 0.000 (0.0-0.012) X10*3/uL Nucleated RBC % (auto) 0.0 (0.0-0.2) /100WBC VBG pH 7.44 H (7.32-7.43) VBG pCO2 40 mmHg VBG pO2 64 mmHg VBG HCO3 27 H (22-26) mmol/L VBG O2 Saturation 88.0 % VBG Base Excess 3.5 mmol/L Sodium 134 L (135-145) mmol/L Potassium 3.8 (3.3-5.1) mmol/L Chloride 96 (96-108) mmol/L Carbon Dioxide 27 (22-29) mmol/L Anion Gap 15 (12-20) BUN 12 D (9-16) mg/dL Creatinine 0.65 (0.5-1.4) mg/dL Estim Creat Clear Calc 108.7 Estimated GFR > 60 Random Glucose 214 H D (60-115) mg/dL Calcium 8.7 (8.4-10.2) mg/dL Total Bilirubin 0.3 (0.0-1.0) mg/dL AST 15 (5-37) U/L ALT 12 (0-40) U/L Alkaline Phosphatase 126 H (39-117) U/L C-Reactive Protein 6.84 H (< or = 0.50) mg/dL Total Protein 6.9 (6.5-8.0) g/dL Albumin 3.1 L (3.5-5.0) g/dL Discharge Plan Discharge Clinical Impression: Priapism, Chronic pain of left ankle Patient Disposition: Home, Self-Care Instructions: Priapism (ED) Additional Instructions: Stop taking trazodone, as this may have contributed to your priapism (erect penis). Follow-up with Dr. Johnson as instructed by him on Wednesday for the procedure to treat the priapism. Use tramadol as prescribed for pain. Return for any worsened symptoms such as increased redness or swelling of your left foot or ankle, fever Prescriptions: New tramadol 50 mg tablet 50 - 100 mg PO Q6H PRN (Reason: pain) Qty: 20 0RF No Action ferrous sulfate 15 mg iron (75 mg)/mL drops 2 ml PO DAILY 30 Days Qty: 60 4RF omeprazole 20 mg capsule,delayed release(DR/EC) 20 mg PO DAILY 90 Days Qty: 90 1RF latanoprost 0.005 % drops 1 drp ophthalmic-Left BEDTIME atorvastatin 40 mg tablet 40 mg PO BEDTIME glipizide 5 mg tablet extended release 24hr 5 mg PO DAILY trazodone 100 mg tablet 100 mg PO BEDTIME metformin 1,000 mg tablet 1,000 mg PO BID dorzolamide-timolol 22.3-6.8 mg/mL drops 1 drp ophthalmic (eye) BID Dry Eye Relief 1-0.2-0.2 % drops 1 drp ophthalmic (eye) QID Levemir U-100 Insulin 100 unit/mL solution 42 unit subcut BID Fish Oil 340-1,000 mg capsule 1 cap PO TID Certavite-Antioxidant 18-400 mg-mcg tablet 1 tab PO DAILY trazodone 150 mg tablet 300 mg PO BEDTIME cefazolin in dextrose (iso-os) 2 gram/50 mL Piggyback 2 g IV Q8H 52 Days Qty: 0 0RF buprenorphine-naloxone 8-2 mg film 1 film buccal BID Qty: 30 0RF aspirin 81 mg tablet,delayed release (DR/EC) 81 mg PO DAILY lisinopril 40 mg tablet 40 mg PO DAILY metoprolol succinate 25 mg tablet extended release 24 hr 25 mg PO DAILY buprenorphine-naloxone 8-2 mg film 1 film sublingual BID loratadine 10 mg tablet 10 mg PO DAILY oxybutynin chloride 5 mg tablet extended release 24hr 5 mg PO DAILY 90 Days Qty: 90 3RF tamsulosin 0.4 mg capsule 0.4 mg PO BEDTIME 90 Days Qty: 90 3RF doxycycline hyclate 100 mg capsule 100 mg PO BID 30 Days Qty: 60 1RF Interventions: ED Discharge Assessment Last Done: 05/21/22 17:40 Discharge Date/Time: 05/21/22 17:41
[2022-05-21 16:47] VITALS: BP 138/71; PULSE 75; RESP 16; TEMP 36.6; O2SAT 94
--- NOTE | 2022-05-21 17:06 | PM.UROCN ---
History of Present Illness Consult details Consult date: 05/21/22 Narrative: Consulting Complaint extended priapism 71-year-old male 3-4 week history of persistent priapism Trazodone dose daily Background of diabetes and microvascular disease On examination shows soft glans with rigid corporal bodies Patient reports minimal pain has been stable in this condition for 3-4 weeks Discussed with patient and his for intervention early next week Would plan on penile tunneling procedure in order to try and establish vascular shunt between corporal body and glans. He is being assessed for admission for a hot ankle with potential infection Review of Systems Constitutional: Constitutional: Reports as per HPI and Reports no additional constitutional complaints Cardiovascular: Cardiovascular: Reports as per HPI and Reports no additional cardiovascular complaints Respiratory: Respiratory: Reports as per HPI and Reports no additional respiratory complaints Gastrointestinal: Gastrointestinal: Reports as per HPI and Reports no additional gastrointestinal complaints Genitourinary: Genitourinary: Reports as per HPI Musculoskeletal: Musculoskeletal: Reports no additional musculoskeletal complaints and Reports as per HPI Neurologic: Reports system reviewed and no additional complaints, except as documented and Reports as per HPI [facility] Past Medical History Medical History Anxiety CAD (coronary artery disease) Chronic constipation COPD (chronic obstructive pulmonary disease) Diabetes mellitus Genital herpes GERD (gastroesophageal reflux disease) History of adenomatous polyp of colon Hypertension Opioid dependence on agonist therapy JAUN (obstructive sleep apnea) Pancreatic abnormality Prepatellar bursitis, left knee Family History Family History Mother No problems noted. Father Liver cancer Surgical History Surgical History History of ankle surgery Social History Social History Household Members: None Housing: Apartment Do you presently have visiting nurse or other home services: No Alcohol intake: former Patient Tobacco Use Status: Current everyday Tobacco user Tobacco use type: Cigarette Cigarettes Per Day: 3 e-Cigarette/Vaping Use: Currently Using Second Hand Smoke Exposure: No Substance Use Type: Heroin Advance Directives: Yes Advance Directives on File: Yes Advance Directives Date on File: 01/28/22 service: No Current occupational status: retired and disabled Current occupation: right handed Meds Allergies Allergy/AdvReac Type Severity Reaction Status Date / Time No Known Allergies Allergy Verified 05/01/22 13:25 Home Medications Medication Instructions Recorded Confirmed Last Taken Type aspirin 81 mg tablet,delayed 81 mg PO DAILY 06/06/20 02/25/22 03/26/21 History release lisinopril 40 mg tablet 40 mg PO DAILY 06/06/20 02/25/22 03/26/21 History metoprolol succinate 25 mg 25 mg PO DAILY 06/06/20 02/25/22 03/26/21 History tablet,extended release 24 hr buprenorphine 8 mg-naloxone 2 mg 1 film sublingual BID 12/06/20 02/25/22 03/26/21 History sublingual film atorvastatin 40 mg tablet 40 mg PO BEDTIME 03/26/21 02/25/22 03/25/21 History dorzolamide 22.3 mg-timolol 6.8 1 drp ophthalmic (eye) BID 03/26/21 02/25/22 03/26/21 History mg/mL eye drops glipizide 5 mg tablet, extended 5 mg PO DAILY 03/26/21 02/25/22 03/26/21 History release 24 hr insulin detemir U-100 100 unit/mL 42 unit subcut BID 03/26/21 02/25/22 03/25/21 History subcutaneous solution (Levemir U-100 Insulin) latanoprost 0.005 % eye drops 1 drp ophthalmic-Left BEDTIME 03/26/21 02/25/22 03/25/21 History metformin 1,000 mg tablet 1,000 mg PO BID 03/26/21 02/25/22 03/26/21 History multivitamin-ferrous 1 tab PO DAILY 03/26/21 02/25/22 03/26/21 History fumarate-folic acid 18 mg-400 mcg tablet (Certavite-Antioxidant) omega-3 fatty acids-fish oil 340 1 cap PO TID 03/26/21 02/25/22 03/26/21 History mg-1,000 mg capsule (Fish Oil) peg 115-[id number] 1 1 drp ophthalmic (eye) QID 03/26/21 02/25/22 03/26/21 History %-0.2 %-0.2 % eye drops (Dry Eye Relief) trazodone 100 mg tablet 100 mg PO BEDTIME 03/26/21 02/25/22 03/25/21 History trazodone 150 mg tablet 300 mg PO BEDTIME 03/26/21 02/25/22 03/25/21 History loratadine 10 mg tablet 10 mg PO DAILY 09/11/21 02/25/22 Unknown History Physical Exam Vital Signs: Vital Signs: Last Vital Signs Temp 98 F 05/21/22 16:47 Pulse 75 05/21/22 16:47 Resp 16 05/21/22 16:47 BP 138/71 05/21/22 16:47 Pulse Ox 94 05/21/22 16:47 O2 Del Method 05/21/22 16:47 BMI result Body Mass Index 31.3 Const: General: cooperative, healthy appearing, comfortable and no acute distress Orientation/consciousness: patient oriented x3 HEENT: Face and sinus: Yes normal facial exam Mouth: moist mucous membranes Neck: Neck: Yes normal visual inspection, Yes full ROM and Yes trachea midline Chest: Chest palpation & inspection: normal inspection of the chest Resp: Effort & Inspection: normal respiratory effort, able to speak in complete sentences and no respiratory distress GI: Inspection: Yes normal to inspection Back/Spine/Pelvis: Cervical Spine: normal cervical lordosis Thoracic/Lumbar Spine: thoracic and lumbar spine normal to inspection Skin: General skin exam: no rashes or lesions noted Neuro: General: patient oriented x3, tone normal and moves all extremities Extrem: General: Yes normal to inspection and Yes capillary refill normal Results Labs Result diagrams: 05/21/22 15:45 05/21/22 15:22 Labs: Abnormal lab results 05/21/22 05/21/22 05/21/22 Range/Units 15:22 15:25 15:45 WBC 16.6 H (4.8-10.8) X10*3/uL RBC 3.60 L (4.60-5.80) X10*6/uL Hgb 10.0 L (14.0-18.0) g/dl Hct 30.6 L (42.0-52.0) % Plt Count 422 H (160-400) X10*3/uL MPV 8.3 L (9.4-12.4) fL Immature Gran % (Auto) 0.6 H (0.0-0.4) % Neut % (Auto) 77.1 H (45-73) % Lymph % (Auto) 15.9 L (20-40) % Abs Immat Gran (auto) 0.10 H (0.00-0.03) X10*3/uL Absolute Neuts (auto) 12.8 H (2.0-8.3) x10*3/uL VBG pH 7.44 H (7.32-7.43) VBG HCO3 27 H (22-26) mmol/L Sodium 134 L (135-145) mmol/L Random Glucose 214 H D (60-115) mg/dL Alkaline Phosphatase 126 H (39-117) U/L C-Reactive Protein 6.84 H (< or = 0.50) mg/dL Albumin 3.1 L (3.5-5.0) g/dL Short CBC 05/21/22 Range/Units 15:45 WBC 16.6 H (4.8-10.8) X10*3/uL Hgb 10.0 L (14.0-18.0) g/dl Hct 30.6 L (42.0-52.0) % Plt Count 422 H (160-400) X10*3/uL BMP 05/21/22 15:22 Sodium 134 L Potassium 3.8 Chloride 96 Carbon Dioxide 27 BUN 12 D Creatinine 0.65 Calcium 8.7 Liver Function 05/21/22 Range/Units 15:22 Total Bilirubin 0.3 (0.0-1.0) mg/dL AST 15 (5-37) U/L ALT 12 (0-40) U/L Alkaline Phosphatase 126 H (39-117) U/L Albumin 3.1 L (3.5-5.0) g/dL All other labs normal. Assessment and Plan (1) Priapism, drug-induced: Status: Acute Plan Intervention on Wednesday for penile tunneling procedure Procedures Date of Service Date of Service: 05/21/22
== END 2022-05-21 17:41 | disposition home or self-care (01) ==
PROVIDERS: Emergency Provider Emergency Medicine; PCP Internal Medicine
DX: N50.812 Left testicular pain (principal); N50.811 Right testicular pain; N48.33 Priapism, drug-induced; N50.89 Other specified disorders of the male genital organs; M25.572 Pain in left ankle and joints of left foot; Z79.899 Other long term (current) drug therapy; F17.210 Nicotine dependence, cigarettes, uncomplicated; Z71.6 Tobacco abuse counseling
CPT/HCPCS: 36415; 80053; 82803; 85025; 86140; 96374; 99284; J1170

== ENCOUNTER 2022-05-25 12:37 | Day surgery (SDC) | payer OTHER, SELFPAY ==
[2022-05-25 13:56] VITALS: BMI 31.3
[2022-05-25 14:11] VITALS: BP 145/84; PULSE 83; RESP 16; TEMP 36.6; O2SAT 93
[2022-05-25 14:49] LABS: Glucose, Whole Blood 218 mg/dL (60-115)
--- NOTE | 2022-05-25 17:54 | MHC.SHP ---
Pre-Procedural Eval Section A Date of Service: 05/25/22 The patient is an INPATIENT: No Changes since office visit: No Cold of Flu in the past 2 weeks, No New Medical Problems, No Changes in Medication and No Patient answered all questions The History & Physical has been completed within 30 days and I have reviewed it.: Yes Section B Chief Complaint: Priapism, drug-induced Allergies: Allergies Allergy/AdvReac Type Severity Reaction Status Date / Time No Known Allergies Allergy Verified 05/01/22 13:25 Review of Systems Sugical H&P ROS: Negative: Constitution, Cardiovascular, Respiratory, Neurological, Psychiatric, Hem-Onc, Allergic/Immunologic, Gastrointestinal, Genitourinary, Musculoskeletal, Integumentary, Endocrine and Eyes/Ears/Nose/Throat Exam Surgical H&P Exam: Normal: HEENT, Normal: Heart, Normal: Lungs, Normal: Extremities, Normal: Abdomen, Normal: Skin and Normal: Neurological Plan Diagnosis/Plan: Unchanged (penile shunt with tunneling) I have reviewed the history and physical and performed a pertinent physical examination on my patient. No changes have occurred unless specified.
--- NOTE | 2022-05-25 18:05 | HO.ANESPROP2 ---
[facility] Active Problems Active Problems: All Active Problems (Updated 05/22/22 @ 00:03 by Anel Marquez) Priapism, drug-induced (Acute) History of fracture of left ankle (Acute) MSSA bacteremia (Acute) Hypertension (Acute) Opioid dependence (Acute) COPD (chronic obstructive pulmonary disease) (Acute) MSSA bacteremia (Acute) Hypokalemia (Acute) Gram-positive bacteremia (Acute) Positive blood culture (Acute) Rhabdomyolysis (Acute) Surgical site infection (Acute) Lethargy (Acute) Falls frequently (Acute) Opioid dependence on agonist therapy (Acute) Diabetes mellitus (Acute) Hypertension (Acute) Bimalleolar ankle fracture (Acute) COVID-19 (Acute) Hypomagnesemia (Acute) Acute respiratory failure with hypoxia (Acute) Elevated d-dimer (Acute) Syncope and collapse (Acute) TENA (acute kidney injury) (Acute) Vomiting (Acute) Rhabdomyolysis (Acute) Urinary urgency (Acute) BPH w urinary obs/LUTS (Acute) Anemia of chronic disease (Acute) Prepatellar bursitis, left knee (Acute) History of adenomatous polyp of colon (Acute) Chronic constipation (Chronic) GERD (gastroesophageal reflux disease) (Acute) Past Medical History Medical History Anxiety CAD (coronary artery disease) Chronic constipation COPD (chronic obstructive pulmonary disease) Diabetes mellitus Genital herpes GERD (gastroesophageal reflux disease) History of adenomatous polyp of colon Hypertension Opioid dependence on agonist therapy JAUN (obstructive sleep apnea) Pancreatic abnormality Prepatellar bursitis, left knee Functional capacity: independent ambulation Family History Family History Mother No problems noted. Father Liver cancer Family history of problems with anesthesia: No Surgical History Surgical History History of ankle surgery History of Problems with Anesthesia: No Social History Social History Household Members: None Housing: Apartment Do you presently have visiting nurse or other home services: No Alcohol intake: former Patient Tobacco Use Status: Current everyday Tobacco user Tobacco use type: Cigarette Cigarettes Per Day: 4 e-Cigarette/Vaping Use: Currently Using Second Hand Smoke Exposure: No Use of substances other than those prescribed or required for medical reasons: No Substance Use Type: Heroin Are you DNR?: No Advance Directives: No Advance Directives Information Provided: Yes Advance Directives Date on File: 01/28/22 service: No Current occupational status: retired and disabled Current occupation: right handed Meds Allergies Allergy/AdvReac Type Severity Reaction Status Date / Time No Known Allergies Allergy Verified 05/01/22 13:25 Active Medications: Current Medications Cefazolin Sodium/Dextrose (Ancef) 2 gm in 50 mls @ 100 mls/hr IV PREOP ONE Stop: 05/25/22 18:17 Home Medications Medication Instructions Recorded Confirmed Last Taken Type aspirin 81 mg tablet,delayed 81 mg PO DAILY 06/06/20 02/25/22 03/26/21 History release lisinopril 40 mg tablet 40 mg PO DAILY 06/06/20 02/25/22 03/26/21 History metoprolol succinate 25 mg 25 mg PO DAILY 06/06/20 02/25/22 03/26/21 History tablet,extended release 24 hr buprenorphine 8 mg-naloxone 2 mg 1 film sublingual BID 12/06/20 02/25/22 03/26/21 History sublingual film atorvastatin 40 mg tablet 40 mg PO BEDTIME 03/26/21 02/25/22 03/25/21 History dorzolamide 22.3 mg-timolol 6.8 1 drp ophthalmic (eye) BID 03/26/21 02/25/22 03/26/21 History mg/mL eye drops glipizide 5 mg tablet, extended 5 mg PO DAILY 03/26/21 02/25/22 03/26/21 History release 24 hr insulin detemir U-100 100 unit/mL 42 unit subcut BID 03/26/21 02/25/22 03/25/21 History subcutaneous solution (Levemir U-100 Insulin) latanoprost 0.005 % eye drops 1 drp ophthalmic-Left BEDTIME 03/26/21 02/25/22 03/25/21 History metformin 1,000 mg tablet 1,000 mg PO BID 03/26/21 02/25/22 03/26/21 History multivitamin-ferrous 1 tab PO DAILY 03/26/21 02/25/22 03/26/21 History fumarate-folic acid 18 mg-400 mcg tablet (Certavite-Antioxidant) omega-3 fatty acids-fish oil 340 1 cap PO TID 03/26/21 02/25/22 03/26/21 History mg-1,000 mg capsule (Fish Oil) peg [id number] 1 1 drp ophthalmic (eye) QID 03/26/21 02/25/22 03/26/21 History %-0.2 %-0.2 % eye drops (Dry Eye Relief) trazodone 100 mg tablet 100 mg PO BEDTIME 03/26/21 02/25/22 03/25/21 History trazodone 150 mg tablet 300 mg PO BEDTIME 03/26/21 02/25/22 03/25/21 History loratadine 10 mg tablet 10 mg PO DAILY 09/11/21 02/25/22 Unknown History Exam Exam Date and Time: May 25, 2022 1805 Height,Weight and Vital Signs: Height 5 ft 7 in Weight 90.718 kg Last Vital Signs Temp 97.9 F 05/25/22 14:11 Pulse 83 05/25/22 14:11 Resp 16 05/25/22 14:11 BP 145/84 H 05/25/22 14:11 Pulse Ox 93 05/25/22 14:11 O2 Del Method 05/25/22 14:11 Pertinent Lab Results Pertinent Lab Results: Laboratory Tests 05/25/22 14:46 POC Glucose 218 H Airway Mallampati Class: II TM Dist: >3cm Neck ROM: Full Heart: RRR Lungs: CTA Assessment and Plan Final Anesthetic Review Family History of Problems with Anesthesia: No History of Problems with Anesthesia: No ASA Class: II Final Preanesthetic Review: No Changes in Pt Med Stat, Meds/Allgs Chart Reviewed, Consent Obtained/Reviewed and Anes Risks/Benef Reviewed Patient Risk: Low Procedure Risk: Low Anesthetic Plan Anesthetic Plan: GA Disposition: Standard PACU
[2022-05-25 19:36] VITALS: BP 175/113; PULSE 91; RESP 16; TEMP 37; O2SAT 97
[2022-05-25 19:41] VITALS: BP 165/99; PULSE 94; RESP 20; O2SAT 95
[2022-05-25 19:46] VITALS: PULSE 96; RESP 18; O2SAT 96
[2022-05-25 19:51] VITALS: BP 167/94; PULSE 95; RESP 18; TEMP 36.1; O2SAT 95
[2022-05-25] MEDS: Acetaminophen 325 MG TABLET 650 MG PO (20:08)
--- NOTE | 2022-05-25 20:56 | W.PM.OPN ---
Operative Note Operative Note Date of Service: 05/29/22 Narrative: PreOperative Diagnosis: Priapism Post Operative Diagnosis: Priapism Procedure: Distal glandular shunt with corporal tunneling Surgeon: Dr Jonathan Johnson Anesthesia: General Indications for procedure: Persistent priapism over 3 weeks. Presumed drug-induced. He understands that the procedure is intended to reduce priapism and create a shunt to allow outflow of blood. He is also aware that the chance of the recovery of his erections is low. He only presented to the emergency room after this had been present for 2 weeks. Procedure: After informed consent was verified the patient was brought to the operating room and placed in a supine position. Anesthesia was administered per protocol. The patient was prepped and draped in sterile fashion. Safety pause time-out was performed. Sixteen [place] Yoder catheter inserted on the field to protect the urethra. Using a 15 blade a stab incision was made lateral to the urethra through the glans into the corporal body. This was rotated 90 degrees in order to create the corporal glandular shunt. This was done 1st on the patient's left side. Using Hegar dilators the corporal body was dilated increasing in size and reaching proximal to the base of the penis. After each dilatation hypoxic blood was extruded from the penis by applying pressure to the base of the penis up to the glans. This was repeated on the patient's right corporal body. Once tunneling had been performed corporal bodies significant amount of blood had been removed. The stab incision in the glans was then closed with interrupted 3-0 Vicryl sutures. Significant detumescence had been obtained Dressing was placed consisting of Shannon followed by [place]an and will be removed in approximately 48 hours Yoder catheter will remain for follow-up in office Pathology: none Drains: catheter
--- NOTE | 2022-05-25 21:36 | HO.POSTANES ---
Post Anesthesia Evaluation Post Anesthesia Evaluation Vital Signs: Vital Signs Temp Pulse Resp BP Pulse Ox O2 Del Method 05/25/22 19:51 97 F 95 18 167/94 H 95 Room Air 05/25/22 19:46 96 18 96 Room Air 05/25/22 19:41 94 20 165/99 H 95 Room Air 05/25/22 19:36 98.6 F 91 16 175/113 H 97 Room Air 05/25/22 14:11 97.9 F 83 16 145/84 H 93 Room Air Anesthesia: General LMA Mental Status: Awake Pain Control: Satisfactory Nausea/Vomiting: None Hydration: Adequate Anesthesia-Related Issues: No Anes. Related Issues
== END 2022-05-25 20:19 | disposition home or self-care (01) ==
PROVIDERS: PCP Internal Medicine; Visit Provider Urology
PROC: (CPT 54435; principal; 2022-05-25 14:10)
DX: N48.33 Priapism, drug-induced (principal); E11.9 Type 2 diabetes mellitus without complications; I10 Essential (primary) hypertension; I25.10 Atherosclerotic heart disease of native coronary artery without angina pectoris; J44.9 Chronic obstructive pulmonary disease, unspecified; G47.33 Obstructive sleep apnea (adult) (pediatric); A60.00 Herpesviral infection of urogenital system, unspecified; F41.1 Generalized anxiety disorder; F11.20 Opioid dependence, uncomplicated; F17.210 Nicotine dependence, cigarettes, uncomplicated; Z79.4 Long term (current) use of insulin; Z79.82 Long term (current) use of aspirin; Z79.899 Other long term (current) drug therapy
CPT/HCPCS: 54435; 82947; J0690; J2250; J2405; J2795; J3010

== ENCOUNTER 2022-05-25 22:11 | Emergency (ER) | payer OTHER, SELFPAY ==
--- NOTE | ~2022-05-25 | CT_ITS ---
EXAMINATION: CT ANGIOGRAM OF THE CHEST WITH AND WITHOUT CONTRAST (CT PULMONARY ANGIOGRAM FOR PE) CLINICAL INFORMATION: Reason for Exam short of breath positive ddimer COMPARISON: 02/13/2022 TECHNIQUE: Prior to contrast administration, noncontrast localization images were obtained. Subsequently, multidetector volumetric imaging was performed from the thoracic inlet to below the diaphragms following the administration of 65 mL Omnipaque 350 intravenous contrast. No contrast reaction reported Sagittal, coronal, and MIP oblique sagittal reformatted images were obtained on the CT workstation, uploaded to PACS, and reviewed. This CT examination was performed using dose optimization techniques as appropriate, variously including the following: *Automated exposure control *Adjustment of mA and/or kV according to patient size (this includes techniques or standardized protocols for targeted exams where dose is matched to indication/reason for exam; i.e. extremities or head) *Use of iterative reconstruction technique Total exam dose-length product 291 mGy-cm FINDINGS: QUALITY OF STUDY/CONTRAST BOLUS: Satisfactory. PULMONARY ARTERIES: No filling defects are seen in the main, lobar, or segmental pulmonary arteries to suggest the presence of pulmonary emboli. Of note, there is incomplete assessment of the distal vasculature towards the lung bases is not adequately assessed due to extensive respiratory motion artifact. THORACIC AORTA: No aneurysm or dissection. Calcification is present at the aortic arch. LUNG: Apical scarring is noted. No additional regions of consolidation bilaterally. A clustered appearance of a few tiny nodules in the posterior lateral right upper lobe is suspicious for focal bronchiolitis. PLEURA: No pleural effusion or pneumothorax. MEDIASTINUM: Visualized thyroid gland is unremarkable. Small hiatal hernia is noted. There are subcentimeter mediastinal lymph nodes within the range of normal variation. Cardiac size is within normal limits. There is trace pericardial fluid. CHEST WALL/AXILLA: Bilateral gynecomastia is noted. No axillary lymphadenopathy is present. OSSEOUS STRUCTURES: Scattered mild degenerative endplate changes in the spine. UPPER ABDOMEN: Redemonstrated bilateral adrenal nodules, right larger than left and without significant change from 02/13/2022. No reflux of contrast into the hepatic veins to suggest elevated right heart pressures. CT/CT angio chest PE protocol IMPRESSION: 1. No pulmonary embolus identified. 2. Few clustered tiny nodules in the posterior right upper lobe, suggesting focal bronchiolitis. 3. Small hiatal hernia. VTE: negative
--- NOTE | ~2022-05-25 | XR_ITS ---
EXAMINATION: XR CHEST CLINICAL INFORMATION: Shortness of breath. COMPARISON: CXR from 02/28/2022 TECHNIQUE: Frontal view of the chest was obtained. FINDINGS: No acute findings compared to 02/28/2022. No airspace disease, pleural effusion or pneumothorax. Cardiac silhouette has normal size and contour. Pulmonary vascular pattern is normal. The visualized bones are intact. XR/XR chest 1V IMPRESSION: No acute cardiopulmonary findings compared to prior chest radiograph from 02/28/2022.
--- NOTE | 2022-05-25 22:17 | ED.MALEGU ---
HPI - Male Genitourinary General Chief complaint: Urogenital-Male Stated complaint: catheter issues Time Seen by Provider: 05/25/22 22:17 Source: patient Limitations: no limitations History of Present Illness HPI Narrative: Patient status post priapism surgery today involving the tunneling and shunting had a Yoder catheter placed accidentally patient pulled the catheter and started bleeding complaining of increased pain in the penis Related Data Home Medications Medication Instructions Recorded Confirmed aspirin 81 mg tablet,delayed 81 mg PO DAILY 06/06/20 02/25/22 release lisinopril 40 mg tablet 40 mg PO DAILY 06/06/20 02/25/22 metoprolol succinate 25 mg 25 mg PO DAILY 06/06/20 02/25/22 tablet,extended release 24 hr buprenorphine 8 mg-naloxone 2 mg 1 film sublingual BID 12/06/20 02/25/22 sublingual film atorvastatin 40 mg tablet 40 mg PO BEDTIME 03/26/21 02/25/22 dorzolamide 22.3 mg-timolol 6.8 1 drp ophthalmic (eye) BID 03/26/21 02/25/22 mg/mL eye drops glipizide 5 mg tablet, extended 5 mg PO DAILY 03/26/21 02/25/22 release 24 hr insulin detemir U-100 100 unit/mL 42 unit subcut BID 03/26/21 02/25/22 subcutaneous solution (Levemir U-100 Insulin) latanoprost 0.005 % eye drops 1 drp ophthalmic-Left BEDTIME 03/26/21 02/25/22 metformin 1,000 mg tablet 1,000 mg PO BID 03/26/21 02/25/22 multivitamin-ferrous 1 tab PO DAILY 03/26/21 02/25/22 fumarate-folic acid 18 mg-400 mcg tablet (Certavite-Antioxidant) omega-3 fatty acids-fish oil 340 1 cap PO TID 03/26/21 02/25/22 mg-1,000 mg capsule (Fish Oil) peg [id number] 1 1 drp ophthalmic (eye) QID 03/26/21 02/25/22 %-0.2 %-0.2 % eye drops (Dry Eye Relief) trazodone 100 mg tablet 100 mg PO BEDTIME 03/26/21 02/25/22 trazodone 150 mg tablet 300 mg PO BEDTIME 03/26/21 02/25/22 loratadine 10 mg tablet 10 mg PO DAILY 09/11/21 02/25/22 Previous Rx's Medication Instructions Recorded ferrous sulfate 15 mg iron (75 2 ml PO DAILY 30 days #60 mL 09/02/21 mg)/mL oral drops oxybutynin chloride 5 mg 5 mg PO DAILY 90 days #90 tabs 09/11/21 tablet,extended release 24 hr tamsulosin 0.4 mg capsule 0.4 mg PO BEDTIME 90 days #90 caps 09/11/21 cefazolin 2 gram/50 mL in dextrose 2 g (50 mL) IV Q8H 52 days #0 ea 02/19/22 (iso-osmotic) intravenous piggyback omeprazole 20 mg capsule,delayed 20 mg PO DAILY 90 days #90 caps 02/27/22 release buprenorphine 8 mg-naloxone 2 mg 1 film buccal BID #30 ea 03/04/22 sublingual film doxycycline hyclate 100 mg capsule 100 mg PO BID 30 days #60 caps 04/03/22 tramadol 50 mg tablet 50 - 100 mg PO Q6H PRN pain #20 05/21/22 tabs sulfamethoxazole 800 1 tab PO BID 3 days #6 tabs 05/25/22 mg-trimethoprim 160 mg tablet (Bactrim DS) tramadol 50 mg tablet 50 mg PO Q6H PRN pain (scale score 05/25/22 4-6) #14 tabs Allergies Allergy/AdvReac Type Severity Reaction Status Date / Time No Known Allergies Allergy Verified 05/01/22 13:25 Review of Systems Review of Systems: Yes all other systems are reviewed and are negative PMFSH Past Medical History Medical History Anxiety CAD (coronary artery disease) Chronic constipation COPD (chronic obstructive pulmonary disease) Diabetes mellitus Genital herpes GERD (gastroesophageal reflux disease) History of adenomatous polyp of colon Hypertension Opioid dependence on agonist therapy JAUN (obstructive sleep apnea) Pancreatic abnormality Prepatellar bursitis, left knee Surgical History History of ankle surgery Family History Family History Mother No problems noted. Father Liver cancer Social History Social History Household Members: None Housing: Apartment Do you presently have visiting nurse or other home services: No Alcohol intake: former Patient Tobacco Use Status: Current everyday Tobacco user Tobacco use type: Cigarette Cigarettes Per Day: 4 e-Cigarette/Vaping Use: Currently Using Second Hand Smoke Exposure: No Substance Use Type: Heroin Advance Directives: Yes Advance Directives on File: Yes Advance Directives Date on File: 01/28/22 service: No Current occupational status: retired and disabled Current occupation: right handed Physical Exam Vital Signs: Vital Signs: Last Vital Signs Temp 97.4 F 05/25/22 23:34 Pulse 95 05/25/22 23:34 Resp 20 05/25/22 23:34 BP 157/74 H 05/25/22 23:34 Pulse Ox 94 05/25/22 23:34 O2 Del Method 05/25/22 23:34 BMI result Body Mass Index 28.0 Appearance: Alert. Oriented X3. No acute distress. ENT: Pharynx normal. Oral Mucosa moist Neck: Normal inspection. Neck supple. CVS: Normal heart rate and rhythm. Pulses normal. Respiratory: No respiratory distress. Equal air entry bilateral, no wheezing/rales/rhonchi Abdomen: Soft and nontender. Bowel sounds are present, no mass palpable, no CVA tenderness : Swollen penis with bleeding around the catheter and in the catheter Skin: Skin warm and dry. Normal skin color. Normal skin turgor. Extremities: No lower extremity edema. No calf tenderness Neuro: Oriented X 3. No motor deficit. Procedures Catheter Insertion (Urinary) Date of insertion: 05/25/22 Time of insertion: 23:07 Reason for placing: Yes Reason for placing indwelling catheter: Urinary obstruction Bladder scan/ultrasound used before catheterization: No Antiseptic solution prep: Povidone-Iodine Topical anesthesia used: Yes Catheter type/location: 2-way Urethral Size (Greenlandic): 20 Catheter balloon size (mL): 10 Catheter balloon amount: 10 Results: other (Guidewire was used) Procedure performed: without complications Discharge Plan Discharge Clinical Impression: Dislodged Yoder catheter Patient Disposition: Home, Self-Care Instructions: Yoder Catheter Placement and Care (ED) Additional Instructions: Do not pull your Yoder catheter Drink plenty of fluids Follow-up with your urologist Prescriptions: No Action ferrous sulfate 15 mg iron (75 mg)/mL drops 2 ml PO DAILY 30 Days Qty: 60 4RF omeprazole 20 mg capsule,delayed release(DR/EC) 20 mg PO DAILY 90 Days Qty: 90 1RF latanoprost 0.005 % drops 1 drp ophthalmic-Left BEDTIME atorvastatin 40 mg tablet 40 mg PO BEDTIME glipizide 5 mg tablet extended release 24hr 5 mg PO DAILY trazodone 100 mg tablet 100 mg PO BEDTIME metformin 1,000 mg tablet 1,000 mg PO BID dorzolamide-timolol 22.3-6.8 mg/mL drops 1 drp ophthalmic (eye) BID Dry Eye Relief 1-0.2-0.2 % drops 1 drp ophthalmic (eye) QID Levemir U-100 Insulin 100 unit/mL solution 42 unit subcut BID Fish Oil 340-1,000 mg capsule 1 cap PO TID Certavite-Antioxidant 18-400 mg-mcg tablet 1 tab PO DAILY trazodone 150 mg tablet 300 mg PO BEDTIME cefazolin in dextrose (iso-os) 2 gram/50 mL Piggyback 2 g IV Q8H 52 Days Qty: 0 0RF buprenorphine-naloxone 8-2 mg film 1 film buccal BID Qty: 30 0RF tramadol 50 mg tablet 50 - 100 mg PO Q6H PRN (Reason: pain) Qty: 20 0RF sulfamethoxazole-trimethoprim [Bactrim DS] 800-160 mg tablet 1 tab PO BID 3 Days Qty: 6 0RF tramadol 50 mg tablet 50 mg PO Q6H PRN (Reason: pain (scale score 4-6)) Qty: 14 0RF aspirin 81 mg tablet,delayed release (DR/EC) 81 mg PO DAILY lisinopril 40 mg tablet 40 mg PO DAILY metoprolol succinate 25 mg tablet extended release 24 hr 25 mg PO DAILY buprenorphine-naloxone 8-2 mg film 1 film sublingual BID loratadine 10 mg tablet 10 mg PO DAILY oxybutynin chloride 5 mg tablet extended release 24hr 5 mg PO DAILY 90 Days Qty: 90 3RF tamsulosin 0.4 mg capsule 0.4 mg PO BEDTIME 90 Days Qty: 90 3RF doxycycline hyclate 100 mg capsule 100 mg PO BID 30 Days Qty: 60 1RF
[2022-05-25] MEDS: oxyCODONE HCl Immed Release 5 MG TABLET 10 MG PO (23:07)
[2022-05-25 23:14] VITALS: BP 148/92; PULSE 94; O2SAT 96; BMI 28.0
[2022-05-25 23:34] VITALS: BP 157/74; PULSE 95; RESP 20; TEMP 36.3; O2SAT 94
--- NOTE | 2022-05-26 00:15 | PC.NURSE ---
Action called at 0015 for a bls transfer home spoke with Wendy from dispatch she stated there are no trucks available she stated to call back in the morning.Rn and Charge Nurse aware.
[2022-05-26] MEDS: Buprenorphine/Naloxone 8/2 mg FILM 1 FILM SUBLINGUAL (03:04)
[2022-05-26] MEDS: Ondansetron ODT 4 MG TAB.RAPDIS TRANSLINGU (04:45)
--- NOTE | 2022-05-26 06:29 | ECG_ITS ---
Test Reason : SOB Blood Pressure : / mmHG Vent. Rate : 090 BPM Atrial Rate : 090 BPM P-R Int : 180 ms QRS Dur : 114 ms QT Int : 412 ms P-R-T Axes : 074 -80 072 degrees QTc Int : 504 ms Normal sinus rhythm Possible Left atrial enlargement Incomplete right bundle branch block Left anterior fascicular block Minimal voltage criteria for LVH, may be normal variant ( [place] product ) Septal infarct (cited on or before 01-MAR-2022) Prolonged QT Abnormal ECG When compared with ECG of 01-MAR-2022 15:55, Questionable change in initial forces of Septal leads QT has lengthened Referred By: Dorian Mathews Electronically Signed By:MARI SPARROW
[2022-05-26 06:32] VITALS: BP 175/97; PULSE 103; RESP 22; O2SAT 98
[2022-05-26 06:37] LABS: Glucose, Whole Blood 367 mg/dL (60-115)
[2022-05-26 06:51] LABS: MANUAL DIFF FLAG NO
[2022-05-26 06:52] LABS: Basophils Percent Auto 0.1 % (0-2); Hematocrit 36.2 % (42.0-52.0); Hemoglobin 12.3 g/dl (14.0-18.0); Imm Gran Abs Auto 0.09 X10*3/uL (0.00-0.03); Imm Gran Pct Auto 0.5 % (0.0-0.4); Lymphocytes Absolute Auto 1.4 X10*3/uL (1.2-4.9); Lymphocytes Percent Auto 7.7 % (20-40); Mean Corpuscular Hemoglobin 27.9 pg (27.0-33.0); Mean Corpuscular Volume 82.1 fL (80.0-98.0); Mean Platelet Volume 8.5 fL (9.4-12.4); Monocytes Absolute Auto 0.6 X10*3/uL (0.1-1.2); Monocytes Percent Auto 3.3 % (2-11); Neutrophils Absolute Auto 15.7 x10*3/uL (2.0-8.3); Neutrophils Percent Auto 88.4 % (45-73); Platelet Count 632 X10*3/uL (160-400); Red Blood Count 4.41 X10*6/uL (4.60-5.80); Red Cell Distribution Width 13.1 % (11.0-16.0); White Blood Count 17.7 X10*3/uL (4.8-10.8)
[2022-05-26 06:58] LABS: INTERNATIONAL NORM RATIO 1.3 (0.9-1.1); Prothrombin Time 14.8 SEC (10.0-13.1)
[2022-05-26 07:00] LABS: D Dimer High Sensitivity 1018 NG/ML
[2022-05-26 07:13] VITALS: BP 172/112; PULSE 98; RESP 19; O2SAT 98
[2022-05-26 07:18] LABS: Troponin-I High Sensitivity 10.5 ng/L (<3.5-35.0)
[2022-05-26 07:19] LABS: Alanine Aminotransferase 13 U/L (0-40); Alkaline Phosphatase 122 U/L (39-117); Anion Gap 21 (12-20); Aspartate Amino Transferase 17 U/L (5-37); Bilirubin Total 0.5 mg/dL (0.0-1.0); Blood Urea Nitrogen 11 mg/dL (9-16); Calcium 9.9 mg/dL (8.4-10.2); Carbon Dioxide 26 mmol/L (22-29); Chloride 92 mmol/L (96-108); Creatinine Clr Calc Pharmacy 89.4; Estimated Glomerular Filt Rate > 60; Glucose Random 401 mg/dL (60-115); Potassium 3.7 mmol/L (3.3-5.1); Sodium 135 mmol/L (135-145)
[2022-05-26 07:20] VITALS: BP 181/99; PULSE 96; RESP 22; TEMP 37; O2SAT 98
--- NOTE | 2022-05-26 07:27 | ED_ITS ---
HPI - Male Genitourinary General Chief complaint: Urogenital-Male Stated complaint: catheter issues Time Seen by Provider: 05/25/22 22:17 Source: patient Limitations: no limitations Related Data Home Medications Medication Instructions Recorded Confirmed aspirin 81 mg tablet,delayed 81 mg PO DAILY 06/06/20 02/25/22 release lisinopril 40 mg tablet 40 mg PO DAILY 06/06/20 02/25/22 metoprolol succinate 25 mg 25 mg PO DAILY 06/06/20 02/25/22 tablet,extended release 24 hr buprenorphine 8 mg-naloxone 2 mg 1 film sublingual BID 12/06/20 02/25/22 sublingual film atorvastatin 40 mg tablet 40 mg PO BEDTIME 03/26/21 02/25/22 dorzolamide 22.3 mg-timolol 6.8 1 drp ophthalmic (eye) BID 03/26/21 02/25/22 mg/mL eye drops glipizide 5 mg tablet, extended 5 mg PO DAILY 03/26/21 02/25/22 release 24 hr insulin detemir U-100 100 unit/mL 42 unit subcut BID 03/26/21 02/25/22 subcutaneous solution (Levemir U-100 Insulin) latanoprost 0.005 % eye drops 1 drp ophthalmic-Left BEDTIME 03/26/21 02/25/22 metformin 1,000 mg tablet 1,000 mg PO BID 03/26/21 02/25/22 multivitamin-ferrous 1 tab PO DAILY 03/26/21 02/25/22 fumarate-folic acid 18 mg-400 mcg tablet (Certavite-Antioxidant) omega-3 fatty acids-fish oil 340 1 cap PO TID 03/26/21 02/25/22 mg-1,000 mg capsule (Fish Oil) peg [id number] 1 1 drp ophthalmic (eye) QID 03/26/21 02/25/22 %-0.2 %-0.2 % eye drops (Dry Eye Relief) trazodone 100 mg tablet 100 mg PO BEDTIME 03/26/21 02/25/22 trazodone 150 mg tablet 300 mg PO BEDTIME 03/26/21 02/25/22 loratadine 10 mg tablet 10 mg PO DAILY 09/11/21 02/25/22 Previous Rx's Medication Instructions Recorded ferrous sulfate 15 mg iron (75 2 ml PO DAILY 30 days #60 mL 09/02/21 mg)/mL oral drops oxybutynin chloride 5 mg 5 mg PO DAILY 90 days #90 tabs 09/11/21 tablet,extended release 24 hr tamsulosin 0.4 mg capsule 0.4 mg PO BEDTIME 90 days #90 caps 09/11/21 cefazolin 2 gram/50 mL in dextrose 2 g (50 mL) IV Q8H 52 days #0 ea 02/19/22 (iso-osmotic) intravenous piggyback omeprazole 20 mg capsule,delayed 20 mg PO DAILY 90 days #90 caps 02/27/22 release buprenorphine 8 mg-naloxone 2 mg 1 film buccal BID #30 ea 03/04/22 sublingual film doxycycline hyclate 100 mg capsule 100 mg PO BID 30 days #60 caps 04/03/22 tramadol 50 mg tablet 50 - 100 mg PO Q6H PRN pain #20 05/21/22 tabs sulfamethoxazole 800 1 tab PO BID 3 days #6 tabs 05/25/22 mg-trimethoprim 160 mg tablet (Bactrim DS) tramadol 50 mg tablet 50 mg PO Q6H PRN pain (scale score 05/25/22 4-6) #14 tabs Allergies Allergy/AdvReac Type Severity Reaction Status Date / Time No Known Allergies Allergy Verified 05/01/22 13:25 [facility] Past Medical History Medical History Anxiety CAD (coronary artery disease) Chronic constipation COPD (chronic obstructive pulmonary disease) Diabetes mellitus Genital herpes GERD (gastroesophageal reflux disease) History of adenomatous polyp of colon Hypertension Opioid dependence on agonist therapy JAUN (obstructive sleep apnea) Pancreatic abnormality Prepatellar bursitis, left knee Surgical History History of ankle surgery Family History Family History Mother No problems noted. Father Liver cancer Social History Social History Household Members: None Housing: Apartment Do you presently have visiting nurse or other home services: No Alcohol intake: former Patient Tobacco Use Status: Current everyday Tobacco user Tobacco use type: Cigarette Cigarettes Per Day: 4 e-Cigarette/Vaping Use: Currently Using Second Hand Smoke Exposure: No Substance Use Type: Heroin Advance Directives: Yes Advance Directives on File: Yes Advance Directives Date on File: 01/28/22 service: No Current occupational status: retired and disabled Current occupation: right handed Physical Exam Vital Signs: Vital Signs: Last Vital Signs Temp 98.6 F 05/26/22 07:20 Pulse 96 05/26/22 07:20 Resp 22 H 05/26/22 07:20 BP 181/99 H 05/26/22 07:20 Pulse Ox 98 05/26/22 07:20 O2 Del Method 05/26/22 07:20 BMI result Body Mass Index 28.0 MDM - Male Genitourinary Lab Data Result diagrams: 05/26/22 06:40 05/26/22 06:40 Labs: Lab Results 05/26/22 05/26/22 05/26/22 Range/Units 06:34 06:40 06:40 WBC 17.7 H (4.8-10.8) X10*3/uL RBC 4.41 L D (4.60-5.80) X10*6/uL Hgb 12.3 L D (14.0-18.0) g/dl Hct 36.2 L (42.0-52.0) % MCV 82.1 (80.0-98.0) fL MCH 27.9 (27.0-33.0) pg MCHC 34.0 (31.0-36.0) g/dl RDW 13.1 (11.0-16.0) % Plt Count 632 H D (160-400) X10*3/uL MPV 8.5 L (9.4-12.4) fL Immature Gran % (Auto) 0.5 H (0.0-0.4) % Neut % (Auto) 88.4 H (45-73) % Lymph % (Auto) 7.7 L (20-40) % Mchenry % (Auto) 3.3 (2-11) % Eos % (Auto) 0.0 (0-4) % Baso % (Auto) 0.1 (0-2) % Lymph # (Auto) 1.4 (1.2-4.9) X10*3/uL Mchenry # (Auto) 0.6 (0.1-1.2) X10*3/uL Eos # (Auto) 0.0 (0.0-0.4) X10*3/uL Baso # (Auto) 0.0 (0.0-0.2) X10*3/uL Abs Immat Gran (auto) 0.09 H (0.00-0.03) X10*3/uL Absolute Neuts (auto) 15.7 H (2.0-8.3) x10*3/uL Absolute Nucleated RBC 0.000 (0.0-0.012) X10*3/uL Nucleated RBC % (auto) 0.0 (0.0-0.2) /100WBC PT 14.8 H (10.0-13.1) SEC INR 1.3 H (0.9-1.1) D-Dimer High Sensitivty NG/ML Sodium (135-145) mmol/L Potassium (3.3-5.1) mmol/L Chloride (96-108) mmol/L Carbon Dioxide (22-29) mmol/L Anion Gap (12-20) BUN (9-16) mg/dL Creatinine (0.5-1.4) mg/dL Estim Creat Clear Calc Estimated GFR POC Glucose 367 H* (60-115) mg/dL Random Glucose (60-115) mg/dL Calcium (8.4-10.2) mg/dL Total Bilirubin (0.0-1.0) mg/dL AST (5-37) U/L ALT (0-40) U/L Alkaline Phosphatase (39-117) U/L Troponin I High Sens (<3.5-35.0) ng/L Total Protein (6.5-8.0) g/dL Albumin (3.5-5.0) g/dL 05/26/22 05/26/22 05/26/22 Range/Units 06:40 06:40 06:40 WBC (4.8-10.8) X10*3/uL RBC (4.60-5.80) X10*6/uL Hgb (14.0-18.0) g/dl Hct (42.0-52.0) % MCV (80.0-98.0) fL MCH (27.0-33.0) pg MCHC (31.0-36.0) g/dl RDW (11.0-16.0) % Plt Count (160-400) X10*3/uL MPV (9.4-12.4) fL Immature Gran % (Auto) (0.0-0.4) % Neut % (Auto) (45-73) % Lymph % (Auto) (20-40) % Mchenry % (Auto) (2-11) % Eos % (Auto) (0-4) % Baso % (Auto) (0-2) % Lymph # (Auto) (1.2-4.9) X10*3/uL Mchenry # (Auto) (0.1-1.2) X10*3/uL Eos # (Auto) (0.0-0.4) X10*3/uL Baso # (Auto) (0.0-0.2) X10*3/uL Abs Immat Gran (auto) (0.00-0.03) X10*3/uL Absolute Neuts (auto) (2.0-8.3) x10*3/uL Absolute Nucleated RBC (0.0-0.012) X10*3/uL Nucleated RBC % (auto) (0.0-0.2) /100WBC PT (10.0-13.1) SEC INR (0.9-1.1) D-Dimer High Sensitivty 1018 NG/ML Sodium 135 (135-145) mmol/L Potassium 3.7 (3.3-5.1) mmol/L Chloride 92 L (96-108) mmol/L Carbon Dioxide 26 (22-29) mmol/L Anion Gap 21 H (12-20) BUN 11 (9-16) mg/dL Creatinine 0.80 (0.5-1.4) mg/dL Estim Creat Clear Calc 89.4 Estimated GFR > 60 POC Glucose (60-115) mg/dL Random Glucose 401 H* (60-115) mg/dL Calcium 9.9 D (8.4-10.2) mg/dL Total Bilirubin 0.5 (0.0-1.0) mg/dL AST 17 (5-37) U/L ALT 13 (0-40) U/L Alkaline Phosphatase 122 H (39-117) U/L Troponin I High Sens 10.5 D (<3.5-35.0) ng/L Total Protein 9.0 H D (6.5-8.0) g/dL Albumin 4.0 D (3.5-5.0) g/dL ECG Data Attestation: I personally reviewed and interpreted this ECG as follows: Interpretation: sinus rate 90 Incomplete RBBB, no st or twave changes Discharge Plan Discharge Clinical Impression: Dislodged Yoder catheter Patient Disposition: Home, Self-Care Instructions: Yoder Catheter Placement and Care (ED) Additional Instructions: Do not pull your Yoder catheter Drink plenty of fluids Follow-up with your urologist Prescriptions: No Action ferrous sulfate 15 mg iron (75 mg)/mL drops 2 ml PO DAILY 30 Days Qty: 60 4RF omeprazole 20 mg capsule,delayed release(DR/EC) 20 mg PO DAILY 90 Days Qty: 90 1RF latanoprost 0.005 % drops 1 drp ophthalmic-Left BEDTIME atorvastatin 40 mg tablet 40 mg PO BEDTIME glipizide 5 mg tablet extended release 24hr 5 mg PO DAILY trazodone 100 mg tablet 100 mg PO BEDTIME metformin 1,000 mg tablet 1,000 mg PO BID dorzolamide-timolol 22.3-6.8 mg/mL drops 1 drp ophthalmic (eye) BID Dry Eye Relief 1-0.2-0.2 % drops 1 drp ophthalmic (eye) QID Levemir U-100 Insulin 100 unit/mL solution 42 unit subcut BID Fish Oil 340-1,000 mg capsule 1 cap PO TID Certavite-Antioxidant 18-400 mg-mcg tablet 1 tab PO DAILY trazodone 150 mg tablet 300 mg PO BEDTIME cefazolin in dextrose (iso-os) 2 gram/50 mL Piggyback 2 g IV Q8H 52 Days Qty: 0 0RF buprenorphine-naloxone 8-2 mg film 1 film buccal BID Qty: 30 0RF tramadol 50 mg tablet 50 - 100 mg PO Q6H PRN (Reason: pain) Qty: 20 0RF sulfamethoxazole-trimethoprim [Bactrim DS] 800-160 mg tablet 1 tab PO BID 3 Days Qty: 6 0RF tramadol 50 mg tablet 50 mg PO Q6H PRN (Reason: pain (scale score 4-6)) Qty: 14 0RF aspirin 81 mg tablet,delayed release (DR/EC) 81 mg PO DAILY lisinopril 40 mg tablet 40 mg PO DAILY metoprolol succinate 25 mg tablet extended release 24 hr 25 mg PO DAILY buprenorphine-naloxone 8-2 mg film 1 film sublingual BID loratadine 10 mg tablet 10 mg PO DAILY oxybutynin chloride 5 mg tablet extended release 24hr 5 mg PO DAILY 90 Days Qty: 90 3RF tamsulosin 0.4 mg capsule 0.4 mg PO BEDTIME 90 Days Qty: 90 3RF doxycycline hyclate 100 mg capsule 100 mg PO BID 30 Days Qty: 60 1RF
[2022-05-26] MEDS: 0.9 % Sodium Chloride 1,000 ML 999 ML IVCONT ×2 (07:36→07:42)
[2022-05-26] MEDS: Insulin Lispro 100 UNIT/ML 3 ML VIAL 10 UNIT SUBCUT (07:36)
[2022-05-26] MEDS: ondansetron HCL 4 MG/2 ML VIAL IVPUSH (07:36)
[2022-05-26] MEDS: iohexoL 350 MG/ML 100 ML INFUS..BTL IV (09:00)
[2022-05-26 09:32] LABS: Glucose, Whole Blood 312 mg/dL (60-115)
--- NOTE | 2022-05-26 12:54 | PC.NURSE ---
pt refusing to wait for ems transport, pt and s.o. departed the ed
== END 2022-05-26 12:55 | disposition home or self-care (01) ==
PROVIDERS: Emergency Provider Internal Medicine; PCP Internal Medicine
DX: T83.028A Displacement of other urinary catheter, initial encounter (principal); Y82.8 Other medical devices associated with adverse incidents; R06.02 Shortness of breath; R06.82 Tachypnea, not elsewhere classified; E11.9 Type 2 diabetes mellitus without complications; I10 Essential (primary) hypertension; F17.210 Nicotine dependence, cigarettes, uncomplicated; Z79.82 Long term (current) use of aspirin; Z79.899 Other long term (current) drug therapy; F11.20 Opioid dependence, uncomplicated; Z79.4 Long term (current) use of insulin
CPT/HCPCS: 36415; 51702; 71045; 71275; 80053; 82947; 84484; 85025; 85379; 85610; 93005; 96361; 96374; 99284; 99285; J2405; Q9967

== ENCOUNTER → 2022-06-04 14:35 | Outpatient (BNVA) | payer OTHER, SELFPAY | PROVIDERS: PCP Internal Medicine; Visit Provider Orthopaedic Surgery | DX: M19.172 Post-traumatic osteoarthritis, left ankle and foot (principal) | CPT/HCPCS: 99212 ==

== ENCOUNTER → 2022-06-26 09:46 | Outpatient (BNVA) | payer OTHER, SELFPAY | PROVIDERS: PCP Internal Medicine; Visit Provider Internal Medicine | DX: M19.172 Post-traumatic osteoarthritis, left ankle and foot (principal); R78.81 Bacteremia; B95.61 Methicillin susceptible Staphylococcus aureus infection as the cause of diseases classified elsewhere | CPT/HCPCS: 99212 ==

== ENCOUNTER 2022-06-29 12:13 | Emergency (ER) | payer OTHER, SELFPAY ==
[2022-06-29 12:16] VITALS: BP 131/71; PULSE 88; RESP 18; TEMP 36.8; O2SAT 96; BMI 31.3
[2022-06-29 14:53] LABS: MANUAL DIFF FLAG NO
[2022-06-29 14:56] LABS: Basophils Percent Auto 0.2 % (0-2); Eosinophils Percent Auto 0.1 % (0-4); Hematocrit 31.4 % (42.0-52.0); Hemoglobin 9.9 g/dl (14.0-18.0); Imm Gran Pct Auto 0.7 % (0.0-0.4); Lymphocytes Absolute Auto 1.6 X10*3/uL (1.2-4.9); Lymphocytes Percent Auto 10.8 % (20-40); Mean Corpuscular HGB Conc 31.5 g/dl (31.0-36.0); Mean Corpuscular Hemoglobin 26.3 pg (27.0-33.0); Mean Corpuscular Volume 83.3 fL (80.0-98.0); Mean Platelet Volume 8.7 fL (9.4-12.4); Monocytes Percent Auto 6.4 % (2-11); Neutrophils Absolute Auto 12.3 x10*3/uL (2.0-8.3); Neutrophils Percent Auto 81.8 % (45-73); Platelet Count 570 X10*3/uL (160-400); Red Blood Count 3.77 X10*6/uL (4.60-5.80); Red Cell Distribution Width 14.1 % (11.0-16.0)
[2022-06-29 15:15] LABS: Alanine Aminotransferase 16 U/L (0-40); Albumin Level 3.6 g/dL (3.5-5.0); Alkaline Phosphatase 125 U/L (39-117); Anion Gap 16 (12-20); Aspartate Amino Transferase 19 U/L (5-37); Bilirubin Total 0.3 mg/dL (0.0-1.0); Blood Urea Nitrogen 13 mg/dL (9-16); Calcium 9.6 mg/dL (8.4-10.2); Carbon Dioxide 30 mmol/L (22-29); Chloride 94 mmol/L (96-108); Creatinine Clr Calc Pharmacy 94.2; Estimated Glomerular Filt Rate > 60; Glucose Random 258 mg/dL (60-115); Potassium 3.9 mmol/L (3.3-5.1); Sodium 136 mmol/L (135-145); Total Protein 7.8 g/dL (6.5-8.0)
[2022-06-29 15:27] LABS: Lactic Acid 2.6 mmol/L (0.5-2.0)
[2022-06-29 16:52] LABS: Reflex Lactate? Lactic Acid Added
== END 2022-06-29 21:20 | disposition left against medical advice (07) ==
PROVIDERS: Emergency Provider Emergency Medicine; PCP Internal Medicine
DX: M25.572 Pain in left ankle and joints of left foot (principal); Z79.899 Other long term (current) drug therapy
CPT/HCPCS: 36415; 80053; 83605; 85025; 87040; 99281; 99283

== ENCOUNTER 2022-06-30 06:57 | Inpatient (IN) | payer OTHER, SELFPAY ==
--- NOTE | ~2022-06-30 | XR_ITS ---
EXAMINATION: FL-GUIDANCE IN OR (C-ARM) ANKLE, LEFT CLINICAL INFORMATION: Hardware removal. COMPARISON: 05/14/2022 and 06/30/2022. TECHNIQUE: 1 C-arm view and portable AP and lateral views of the left ankle. FINDINGS: Single C-arm view taken in the operating room demonstrates distal aspect of the sideplate and screws as well as 2 separate screws. AP and lateral views of the left ankle demonstrate osteopenia of the visualized bones of the left foot. Since previous study the 2 screws for fixation of the medial malleolar fracture have been removed. No other significant change is seen compared to study of 06/30/2022 without change in alignment of fracture fragments. Sideplate and screws again seen for fixation of distal fibular fracture without hardware fracture appreciated. There remains widening of the medial clear space. Periosteal reaction is again noted along the distal tibia. Medial malleolar fracture line is still evident. Diminished density with ill-defined subchondral bone about the tibial plafond. Diffuse soft tissue swelling. Gas about the soft tissues of the medial malleolus likely related to the recent screw removal. Heterotopic bone formation is seen dorsal to the distal tibia. The tibial plafond and talar dome are not well evaluated on this plain film study. XR/XR ankle LT min 3V IMPRESSION: 1. Removal of 2 screws for fixation of medial malleolar fracture of the left ankle. 2. No change in alignment or appearance since previous study of 06/30/2022 as described above.
--- NOTE | ~2022-06-30 | XR_ITS ---
EXAMINATION: XR ANKLE, LEFT CLINICAL INFORMATION: Pain and swelling COMPARISON: 05/14/2022 TECHNIQUE: AP, lateral, and mortise views of the left ankle. FINDINGS: ORIF of medial malleolar and distal fibular fractures. The transversely oriented medial malleolar fracture is still evident, although there is increased endosteal bridging and surrounding callus formation compared to the prior exam. There is sclerosis at the site of the previous distal fibular fracture indicative of healing. No residual fracture line is evident. Persistent widening of the medial clear space. There is progressive lucency and ill-definition of the subchondral bone plate of the tibial plafond. There is periosteal reaction extending along the interosseous membrane and along the tibial metaphysis proximally. Periarticular heterotopic ossification present posterior to the tibiotalar joint as well as lateral to the distal fibula. Diffuse soft tissue swelling about the ankle. XR/XR ankle LT min 3V IMPRESSION: * ORIF of the transversely oriented medial malleolar fracture with persistent though decreasing conspicuity of the fracture line. Persistent widening of the medial clear space. * Healed distal fibular fracture. * Ill-definition of the subchondral bone of the tibial plafond is nonspecific, and may relate to disuse osteopenia, although osteomyelitis cannot be excluded radiographically. * Diffuse soft tissue swelling increased from the prior.
--- NOTE | ~2022-06-30 | CT_ITS ---
EXAMINATION: CT ANKLE LEFT CLINICAL INFORMATION: Ankle pain and swelling. COMPARISON: Radiographs of the ankle from 02/13/2022, 05/14/2022 and 06/30/2022 TECHNIQUE: Multidetector CT imaging examination of the left ankle was performed with intravenous administration of 85 mL Omnipaque 350. This CT examination was performed using dose optimization techniques as appropriate, variously including the following: *Automated exposure control. *Adjustment of mA and/or kV according to patient size (this includes techniques or standardized protocols for targeted exams where dose is matched to indication/reason for exam, i.e., extremities or head). *Use of iterative reconstruction technique. DLP: 166 mGy-cm FINDINGS: Status post open reduction and internal fixation of the medial malleolar fracture with lack of osseous union of the malleolar fragment. The two lag screws are well-positioned through the malleolus. Also, there is open reduction and internal fixation of the distal fibular fracture with intact appearance of the lateral plate and screws. Although there is osseous hypertrophy around the fracture site, there is no significant solid bridging bone formation along the oblique fracture plane. Periosteal new bone formation is present along the distal tibia and fibula. The osseous fragment of the anterolateral tibial plafond is moderately displaced, but has developed osseous union with the tibia at the anterior metaphysis. The lucent gap in the articular surface at the anterolateral plafond measures approximately 1.1 cm wide (image 158, series 4). As observed on the recent radiographs, there is worsening subarticular osteoporosis, bone loss, subarticular cystlike lucency and erosive changes at the tibiotalar joint. There is mild superolateral subluxation of the talus within the injured mortise. Small ankle joint effusion is present and there is synovial thickening of the joint. There is mild peripheral enhancement around a 1.2 x 3.7 x 4 cm fluid collection in the subcutaneous compartment of the medial ankle. There is no gas within this collection. Nevertheless, this could represent an abscess. The soft tissues are diffusely edematous in the visualized lower leg, ankle and foot. The Achilles tendon is unremarkable. Also, other tendons around the ankle are grossly unremarkable. No tenosynovitis. CT/CT ankle LT w IV con IMPRESSION: * Periarticular osteoporosis throughout the visualized ankle and foot. * There is lack of osseous union of the medial malleolar fracture. No significant osseous union of the oblique distal fibular fracture, status post open reduction and internal fixation. * There is osteolysis, erosive change, at the ankle joint with small ankle joint effusion. Septic arthritis is possible. * There is mild peripheral enhancement around a 1.2 x 3.7 x 4 cm fluid collection in the subcutaneous compartment of the medial ankle. There is no gas within this collection. Nevertheless, this could represent an abscess. * Diffuse subcutaneous tissue edema of the extremity.
--- NOTE | ~2022-06-30 | US_ITS ---
EXAMINATION: US VENOUS ULTRASOUND WITH DOPPLER LOWER EXTREMITY, LEFT CLINICAL INFORMATION: Lower extremity pain and swelling. COMPARISON: None TECHNIQUE: Ultrasound of the deep veins is performed from the hip to the calf with compression sonography and color and pulse Doppler assessment. Spectral analysis with color-flow imaging is performed. FINDINGS: There is normal venous compression and respiratory variation and augmented flow. The visualized common femoral vein, superficial femoral vein, profunda femoral vein, popliteal vein, and the trifurcation region shows no evidence of deep venous thrombosis. No left popliteal cyst. Mild to moderate subcutaneous edema in the left calf. Enlarged reniform left inguinal lymph nodes are seen measuring up to 4.1 cm in long axis. US/US venous duplex LE LT IMPRESSION: 1. No evidence for deep venous thrombosis in the visualized veins of the left lower extremity. 2. Enlarged left inguinal lymph nodes are nonspecific, but may be reactive. Correlate with physical exam. If these findings persist or enlarge, short-term repeat targeted soft tissue ultrasound can be performed as clinically indicated to assess for change. 3. Mild to moderate subcutaneous edema in the left calf.
[2022-06-30 07:08] VITALS: BP 154/80; PULSE 94; RESP 20; TEMP 37.3; O2SAT 93; BMI 31.3
--- NOTE | 2022-06-30 07:11 | ED.FALL ---
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 Mode of arrival: ambulatory Limitations: no limitations History of Present Illness HPI Narrative: 71 yo male with hx of COPD, PTSD, HTN, MSSA bacteremia, opiate use disorder, DM, TENA, prior bimalleolar fracture, GERD, chronic constipation Related Data Home Medications Medication Instructions Recorded Confirmed aspirin 81 mg tablet,delayed 81 mg PO DAILY 06/06/20 02/25/22 release lisinopril 40 mg tablet 40 mg PO DAILY 06/06/20 02/25/22 metoprolol succinate 25 mg 25 mg PO DAILY 06/06/20 02/25/22 tablet,extended release 24 hr buprenorphine 8 mg-naloxone 2 mg 1 film sublingual BID 12/06/20 02/25/22 sublingual film atorvastatin 40 mg tablet 40 mg PO BEDTIME 03/26/21 02/25/22 dorzolamide 22.3 mg-timolol 6.8 1 drp ophthalmic (eye) BID 03/26/21 02/25/22 mg/mL eye drops glipizide 5 mg tablet, extended 5 mg PO DAILY 03/26/21 02/25/22 release 24 hr insulin detemir U-100 100 unit/mL 42 unit subcut BID 03/26/21 02/25/22 subcutaneous solution (Levemir U-100 Insulin) latanoprost 0.005 % eye drops 1 drp ophthalmic-Left BEDTIME 03/26/21 02/25/22 metformin 1,000 mg tablet 1,000 mg PO BID 03/26/21 02/25/22 multivitamin-ferrous 1 tab PO DAILY 03/26/21 02/25/22 fumarate-folic acid 18 mg-400 mcg tablet (Certavite-Antioxidant) omega-3 fatty acids-fish oil 340 1 cap PO TID 03/26/21 02/25/22 mg-1,000 mg capsule (Fish Oil) peg [id number] 1 1 drp ophthalmic (eye) QID 03/26/21 02/25/22 %-0.2 %-0.2 % eye drops (Dry Eye Relief) trazodone 100 mg tablet 100 mg PO BEDTIME 03/26/21 02/25/22 trazodone 150 mg tablet 300 mg PO BEDTIME 03/26/21 02/25/22 loratadine 10 mg tablet 10 mg PO DAILY 09/11/21 02/25/22 Previous Rx's Medication Instructions Recorded ferrous sulfate 15 mg iron (75 2 ml PO DAILY 30 days #60 mL 09/02/21 mg)/mL oral drops oxybutynin chloride 5 mg 5 mg PO DAILY 90 days #90 tabs 09/11/21 tablet,extended release 24 hr tamsulosin 0.4 mg capsule 0.4 mg PO BEDTIME 90 days #90 caps 09/11/21 cefazolin 2 gram/50 mL in dextrose 2 g (50 mL) IV Q8H 52 days #0 ea 02/19/22 (iso-osmotic) intravenous piggyback omeprazole 20 mg capsule,delayed 20 mg PO DAILY 90 days #90 caps 02/27/22 release buprenorphine 8 mg-naloxone 2 mg 1 film buccal BID #30 ea 03/04/22 sublingual film doxycycline hyclate 100 mg capsule 100 mg PO BID 30 days #60 caps 04/03/22 tramadol 50 mg tablet 50 - 100 mg PO Q6H PRN pain #20 05/21/22 tabs sulfamethoxazole 800 1 tab PO BID 3 days #6 tabs 05/25/22 mg-trimethoprim 160 mg tablet (Bactrim DS) tramadol 50 mg tablet 50 mg PO Q6H PRN pain (scale score 05/25/22 4-6) #14 tabs Allergies Allergy/AdvReac Type Severity Reaction Status Date / Time No Known Allergies Allergy Verified 05/01/22 13:25 [facility] Past Medical History Medical History Anxiety CAD (coronary artery disease) Chronic constipation COPD (chronic obstructive pulmonary disease) Diabetes mellitus Genital herpes GERD (gastroesophageal reflux disease) History of adenomatous polyp of colon Hypertension Opioid dependence on agonist therapy JAUN (obstructive sleep apnea) Pancreatic abnormality Prepatellar bursitis, left knee Surgical History History of ankle surgery Family History Family History Mother No problems noted. Father Liver cancer Social History Social History Household Members: None Housing: Apartment Do you presently have visiting nurse or other home services: No Alcohol intake: former Patient Tobacco Use Status: Current everyday Tobacco user Tobacco use type: Cigarette Cigarettes Per Day: 4 e-Cigarette/Vaping Use: Currently Using Second Hand Smoke Exposure: No Substance Use Type: Heroin Advance Directives Date on File: 01/28/22 service: No Current occupational status: retired and disabled Current occupation: right handed Discharge Plan Discharge Prescriptions: No Action ferrous sulfate 15 mg iron (75 mg)/mL drops 2 ml PO DAILY 30 Days Qty: 60 4RF omeprazole 20 mg capsule,delayed release(DR/EC) 20 mg PO DAILY 90 Days Qty: 90 1RF latanoprost 0.005 % drops 1 drp ophthalmic-Left BEDTIME atorvastatin 40 mg tablet 40 mg PO BEDTIME glipizide 5 mg tablet extended release 24hr 5 mg PO DAILY trazodone 100 mg tablet 100 mg PO BEDTIME metformin 1,000 mg tablet 1,000 mg PO BID dorzolamide-timolol 22.3-6.8 mg/mL drops 1 drp ophthalmic (eye) BID Dry Eye Relief 1-0.2-0.2 % drops 1 drp ophthalmic (eye) QID Levemir U-100 Insulin 100 unit/mL solution 42 unit subcut BID Fish Oil 340-1,000 mg capsule 1 cap PO TID Certavite-Antioxidant 18-400 mg-mcg tablet 1 tab PO DAILY trazodone 150 mg tablet 300 mg PO BEDTIME cefazolin in dextrose (iso-os) 2 gram/50 mL Piggyback 2 g IV Q8H 52 Days Qty: 0 0RF buprenorphine-naloxone 8-2 mg film 1 film buccal BID Qty: 30 0RF tramadol 50 mg tablet 50 - 100 mg PO Q6H PRN (Reason: pain) Qty: 20 0RF sulfamethoxazole-trimethoprim [Bactrim DS] 800-160 mg tablet 1 tab PO BID 3 Days Qty: 6 0RF tramadol 50 mg tablet 50 mg PO Q6H PRN (Reason: pain (scale score 4-6)) Qty: 14 0RF aspirin 81 mg tablet,delayed release (DR/EC) 81 mg PO DAILY lisinopril 40 mg tablet 40 mg PO DAILY metoprolol succinate 25 mg tablet extended release 24 hr 25 mg PO DAILY buprenorphine-naloxone 8-2 mg film 1 film sublingual BID loratadine 10 mg tablet 10 mg PO DAILY oxybutynin chloride 5 mg tablet extended release 24hr 5 mg PO DAILY 90 Days Qty: 90 3RF tamsulosin 0.4 mg capsule 0.4 mg PO BEDTIME 90 Days Qty: 90 3RF doxycycline hyclate 100 mg capsule 100 mg PO BID 30 Days Qty: 60 1RF
--- NOTE | 2022-06-30 07:25 | ED_ITS ---
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 She noted it yesterday - he waited to be seen in our waiting room but LWT yesterday. He denies fevers. He is not sure how long the redness/abscess has been there for. MD complaint: abscess/boil and lesion Onset (ago): unknown Tetanus up to date: yes Location: LLE Severity: moderate Quality: dull Pain Consistency: intermittent Relieving factors: none Exacerbating factors: palpation Context: other (diabetic, foot is in boot a lot of the time due to poorly healing bimalleolar fracture) Associated symptoms: denies other symptoms Treatments prior to arrival: none Related Data Home Medications Medication Instructions Recorded Confirmed lisinopril 40 mg tablet 40 mg PO BID 06/06/20 06/30/22 metoprolol succinate 25 mg 25 mg PO DAILY 06/06/20 06/30/22 tablet,extended release 24 hr atorvastatin 40 mg tablet 40 mg PO BEDTIME 03/26/21 06/30/22 dorzolamide 22.3 mg-timolol 6.8 1 drp ophthalmic (eye) BID 03/26/21 06/30/22 mg/mL eye drops glipizide 5 mg tablet, extended 5 mg PO DAILY 03/26/21 06/30/22 release 24 hr insulin detemir U-100 100 unit/mL 84 unit subcut BEDTIME 03/26/21 06/30/22 subcutaneous solution (Levemir U-100 Insulin) latanoprost 0.005 % eye drops 1 drp ophthalmic-Left BEDTIME 03/26/21 06/30/22 metformin 1,000 mg tablet 1,000 mg PO BID 03/26/21 06/30/22 multivitamin-ferrous 1 tab PO DAILY 03/26/21 06/30/22 fumarate-folic acid 18 mg-400 mcg tablet (Certavite-Antioxidant) omega-3 fatty acids-fish oil 340 1 cap PO TID 03/26/21 06/30/22 mg-1,000 mg capsule (Fish Oil) peg [id number] 1 1 drp ophthalmic (eye) QID 03/26/21 06/30/22 %-0.2 %-0.2 % eye drops (Dry Eye Relief) trazodone 150 mg tablet 300 mg PO BEDTIME 03/26/21 06/30/22 loratadine 10 mg tablet 10 mg PO DAILY 09/11/21 06/30/22 amlodipine 10 mg tablet 1 tab PO BEDTIME 06/30/22 06/30/22 olanzapine 5 mg tablet 1 tab PO BEDTIME 06/30/22 06/30/22 oxybutynin chloride 5 mg 1 tab PO DAILY 06/30/22 06/30/22 tablet,extended release 24 hr Previous Rx's Medication Instructions Recorded ferrous sulfate 15 mg iron (75 2 ml PO DAILY 30 days #60 mL 09/02/21 mg)/mL oral drops tamsulosin 0.4 mg capsule 0.4 mg PO BEDTIME 90 days #90 caps 09/11/21 omeprazole 20 mg capsule,delayed 20 mg PO DAILY 90 days #90 caps 02/27/22 release buprenorphine 8 mg-naloxone 2 mg 1 film buccal BID #30 ea 03/04/22 sublingual film Allergies Allergy/AdvReac Type Severity Reaction Status Date / Time No Known Allergies Allergy Verified 05/01/22 13:25 Review of Systems Review of Systems: Constitutional : No Fever, No Chills ENT/Mouth : No sore throat, No Rhinorrhea Eyes: No Eye Pain, No Swelling, No Redness Cardiovascular : No Chest Pain, No SOB Respiratory : No Cough, No Sputum Gastrointestinal : No Nausea, No Vomiting, No Diarrhea, No abdominal Pain Genitourinary : No Dysuria, No Hematuria Musculoskeletal : pos joint pain, No Myalgias, No Joint Swelling Skin : No Skin Lesions, positive skin rash Neuro : No Weakness, No Numbness, No Headache Psych : No Anxiety, No Depression Heme/Lymph: No Bruising, No Bleeding,No Lymphadenopathy Endocrine : No Polyuria, No Polydipsia All other systems reviewed and are negative [facility] Past Medical History Medical History Anxiety CAD (coronary artery disease) Chronic constipation COPD (chronic obstructive pulmonary disease) Diabetes mellitus Genital herpes GERD (gastroesophageal reflux disease) History of adenomatous polyp of colon Hypertension Opioid dependence on agonist therapy JAUN (obstructive sleep apnea) Pancreatic abnormality Prepatellar bursitis, left knee Surgical History History of ankle surgery Family History Family History Mother No problems noted. Father Liver cancer Social History Social History Household Members: None Housing: Apartment Do you presently have visiting nurse or other home services: No Alcohol intake: former Patient Tobacco Use Status: Current everyday Tobacco user Tobacco use type: Cigarette Cigarettes Per Day: 4 e-Cigarette/Vaping Use: Currently Using Second Hand Smoke Exposure: No Substance Use Type: Heroin Advance Directives: Yes Advance Directives on File: Yes Advance Directives Date on File: 01/28/22 service: No Current occupational status: retired and disabled Current occupation: right handed Physical Exam Vital Signs: Vital Signs: Last Vital Signs Temp 98.9 F 06/30/22 10:57 Pulse 81 06/30/22 10:57 Resp 20 06/30/22 10:57 BP 175/90 H 06/30/22 10:57 Pulse Ox 93 06/30/22 10:57 O2 Del Method 06/30/22 10:57 BMI result Body Mass Index 31.3 Appearance: Alert. Oriented X3. No acute distress. Eyes: Pupils equal, round and reactive to light. ENT: Pharynx normal. Neck: Normal inspection. Neck supple. CVS: Normal heart rate and rhythm. Pulses normal. Respiratory: No respiratory distress. Breath sounds normal. Abdomen: Soft and nontender. Skin: Skin warm and dry. Normal skin color. Normal skin turgor. Extremities: RLE no pitting edema, LLE 2+ pitting edema redness to mid calf, medial malleolus boggy fluctuant area ttp with overlying erythema noted, distal NV intact. Neuro: Oriented X 3. No motor deficit. No sensory deficit. Course Course Course Narrative: message sent to Dr. Valerio given abscess and recommendations for I+D given high risk for DM and healing concerns - recommends CT scan Dr. Valerio will drain abscess - orthopedics involved as well will take over case. Dr. Valerio no longer involved as orthopedics to take over care. orthopedics notified given possible septic arthritis - CLEMENCIA Villarreal MDM - Skin/Abscess/Foreign Bdy MDM Narrative Medical decision making narrative: 71 yo male with hx of COPD, PTSD, HTN, MSSA bacteremia, opiate use disorder, DM, TENA, prior bimalleolar fracture, GERD, chronic constipation now here with L medial malleolus abscess and leg cellulitis. He cannot tell me how long it has been there. Will need labs, cultures, empiric antibiotics, xray of ankle/DVT study. Likely admit - will aspirate area as well depending on labs/imaging. Lab Data Result diagrams: 06/30/22 07:56 06/30/22 07:56 Labs: Lab Results 06/30/22 06/30/22 06/30/22 Range/Units 07:51 07:56 07:56 WBC 11.9 H (4.8-10.8) X10*3/uL RBC 3.58 L (4.60-5.80) X10*6/uL Hgb 9.2 L (14.0-18.0) g/dl Hct 29.8 L (42.0-52.0) % MCV 83.2 (80.0-98.0) fL MCH 25.7 L (27.0-33.0) pg MCHC 30.9 L (31.0-36.0) g/dl RDW 14.1 (11.0-16.0) % Plt Count 509 H (160-400) X10*3/uL MPV 8.5 L (9.4-12.4) fL Immature Gran % (Auto) 1.1 H (0.0-0.4) % Neut % (Auto) 79.5 H (45-73) % Lymph % (Auto) 10.8 L (20-40) % [place] % (Auto) 7.5 (2-11) % Eos % (Auto) 0.8 (0-4) % Baso % (Auto) 0.3 (0-2) % Lymph # (Auto) 1.3 (1.2-4.9) X10*3/uL [place] # (Auto) 0.9 (0.1-1.2) X10*3/uL Eos # (Auto) 0.1 (0.0-0.4) X10*3/uL Baso # (Auto) 0.0 (0.0-0.2) X10*3/uL Abs Immat Gran (auto) 0.13 H (0.00-0.03) X10*3/uL Absolute Neuts (auto) 9.5 H (2.0-8.3) x10*3/uL Absolute Nucleated RBC 0.000 (0.0-0.012) X10*3/uL Nucleated RBC % (auto) 0.0 (0.0-0.2) /100WBC ESR 104 H (0-15) MM/HR PT (10.0-13.1) SEC INR (0.9-1.1) Sodium (135-145) mmol/L Potassium (3.3-5.1) mmol/L Chloride (96-108) mmol/L Carbon Dioxide (22-29) mmol/L Anion Gap (12-20) BUN (9-16) mg/dL Creatinine (0.5-1.4) mg/dL Estim Creat Clear Calc Estimated GFR Random Glucose (60-115) mg/dL Lactic Acid (0.5-2.0) mmol/L Lactic Acid F/U @ 2Hr (0.5-2.0) mmol/L Calcium (8.4-10.2) mg/dL Magnesium (1.6-2.6) mg/dL Total Bilirubin (0.0-1.0) mg/dL Direct Bilirubin (0.0-0.5) mg/dL AST (5-37) U/L ALT (0-40) U/L Alkaline Phosphatase (39-117) U/L C-Reactive Protein (< or = 0.50) mg/dL Total Protein (6.5-8.0) g/dL Albumin (3.5-5.0) g/dL Urine Opiates Screen (Not Detect) Urine Fentanyl Screen (Not Detect) Ur Barbiturates Screen (Not Detect) Ur Phencyclidine Scrn (Not Detect) Ur Amphetamines Screen (Not Detect) U Benzodiazepines Scrn (Not Detect) Urine Cocaine Screen (Not Detect) U Marijuana (THC) Screen (Not Detect) COVID-19 (THANG) Negative (Negative) COVID-19 Clin Com See Note 06/30/22 06/30/22 06/30/22 Range/Units 07:56 07:56 07:56 WBC (4.8-10.8) X10*3/uL RBC (4.60-5.80) X10*6/uL Hgb (14.0-18.0) g/dl Hct (42.0-52.0) % MCV (80.0-98.0) fL MCH (27.0-33.0) pg MCHC (31.0-36.0) g/dl RDW (11.0-16.0) % Plt Count (160-400) X10*3/uL MPV (9.4-12.4) fL Immature Gran % (Auto) (0.0-0.4) % Neut % (Auto) (45-73) % Lymph % (Auto) (20-40) % [place] % (Auto) (2-11) % Eos % (Auto) (0-4) % Baso % (Auto) (0-2) % Lymph # (Auto) (1.2-4.9) X10*3/uL [place] # (Auto) (0.1-1.2) X10*3/uL Eos # (Auto) (0.0-0.4) X10*3/uL Baso # (Auto) (0.0-0.2) X10*3/uL Abs Immat Gran (auto) (0.00-0.03) X10*3/uL Absolute Neuts (auto) (2.0-8.3) x10*3/uL Absolute Nucleated RBC (0.0-0.012) X10*3/uL Nucleated RBC % (auto) (0.0-0.2) /100WBC ESR (0-15) MM/HR PT 13.2 H (10.0-13.1) SEC INR 1.1 (0.9-1.1) Sodium 138 (135-145) mmol/L Potassium 3.7 (3.3-5.1) mmol/L Chloride 96 (96-108) mmol/L Carbon Dioxide 30 H (22-29) mmol/L Anion Gap 16 (12-20) BUN 15 (9-16) mg/dL Creatinine 0.72 (0.5-1.4) mg/dL Estim Creat Clear Calc 98.1 Estimated GFR > 60 Random Glucose 263 H (60-115) mg/dL Lactic Acid 2.3 H* (0.5-2.0) mmol/L Lactic Acid F/U @ 2Hr (0.5-2.0) mmol/L Calcium 8.9 D (8.4-10.2) mg/dL Magnesium 1.3 L* (1.6-2.6) mg/dL Total Bilirubin 0.2 (0.0-1.0) mg/dL Direct Bilirubin < 0.2 (0.0-0.5) mg/dL AST 22 (5-37) U/L ALT 19 (0-40) U/L Alkaline Phosphatase 116 (39-117) U/L C-Reactive Protein 17.51 H (< or = 0.50) mg/dL Total Protein 6.8 (6.5-8.0) g/dL Albumin 3.2 L (3.5-5.0) g/dL Urine Opiates Screen (Not Detect) Urine Fentanyl Screen (Not Detect) Ur Barbiturates Screen (Not Detect) Ur Phencyclidine Scrn (Not Detect) Ur Amphetamines Screen (Not Detect) U Benzodiazepines Scrn (Not Detect) Urine Cocaine Screen (Not Detect) U Marijuana (THC) Screen (Not Detect) COVID-19 (THANG) (Negative) COVID-19 Clin Com 06/30/22 06/30/22 Range/Units 10:34 10:35 WBC (4.8-10.8) X10*3/uL RBC (4.60-5.80) X10*6/uL Hgb (14.0-18.0) g/dl Hct (42.0-52.0) % MCV (80.0-98.0) fL MCH (27.0-33.0) pg MCHC (31.0-36.0) g/dl RDW (11.0-16.0) % Plt Count (160-400) X10*3/uL MPV (9.4-12.4) fL Immature Gran % (Auto) (0.0-0.4) % Neut % (Auto) (45-73) % Lymph % (Auto) (20-40) % [place] % (Auto) (2-11) % Eos % (Auto) (0-4) % Baso % (Auto) (0-2) % Lymph # (Auto) (1.2-4.9) X10*3/uL [place] # (Auto) (0.1-1.2) X10*3/uL Eos # (Auto) (0.0-0.4) X10*3/uL Baso # (Auto) (0.0-0.2) X10*3/uL Abs Immat Gran (auto) (0.00-0.03) X10*3/uL Absolute Neuts (auto) (2.0-8.3) x10*3/uL Absolute Nucleated RBC (0.0-0.012) X10*3/uL Nucleated RBC % (auto) (0.0-0.2) /100WBC ESR (0-15) MM/HR PT (10.0-13.1) SEC INR (0.9-1.1) Sodium (135-145) mmol/L Potassium (3.3-5.1) mmol/L Chloride (96-108) mmol/L Carbon Dioxide (22-29) mmol/L Anion Gap (12-20) BUN (9-16) mg/dL Creatinine (0.5-1.4) mg/dL Estim Creat Clear Calc Estimated GFR Random Glucose (60-115) mg/dL Lactic Acid (0.5-2.0) mmol/L Lactic Acid F/U @ 2Hr 2.0 (0.5-2.0) mmol/L Calcium (8.4-10.2) mg/dL Magnesium (1.6-2.6) mg/dL Total Bilirubin (0.0-1.0) mg/dL Direct Bilirubin (0.0-0.5) mg/dL AST (5-37) U/L ALT (0-40) U/L Alkaline Phosphatase (39-117) U/L C-Reactive Protein (< or = 0.50) mg/dL Total Protein (6.5-8.0) g/dL Albumin (3.5-5.0) g/dL Urine Opiates Screen POSITIVE H (Not Detect) Urine Fentanyl Screen POSITIVE H (Not Detect) Ur Barbiturates Screen Not Detected (Not Detect) Ur Phencyclidine Scrn Not Detected (Not Detect) Ur Amphetamines Screen Not Detected (Not Detect) U Benzodiazepines Scrn Not Detected (Not Detect) Urine Cocaine Screen Not Detected (Not Detect) U Marijuana (THC) Screen Not Detected (Not Detect) COVID-19 (THANG) (Negative) COVID-19 Clin Com Discharge Plan Discharge Clinical Impression: Cellulitis and abscess of left leg, Hypomagnesemia, Acidosis, lactic Patient Disposition: Admitted As Inpatient
[2022-06-30 07:47] VITALS: BP 156/81; PULSE 86; RESP 18; TEMP 36.8; O2SAT 93
[2022-06-30 08:01] LABS: MANUAL DIFF FLAG NO
[2022-06-30 08:03] LABS: Basophils Percent Auto 0.3 % (0-2); Eosinophils Absolute Auto 0.1 X10*3/uL (0.0-0.4); Eosinophils Percent Auto 0.8 % (0-4); Hematocrit 29.8 % (42.0-52.0); Hemoglobin 9.2 g/dl (14.0-18.0); Imm Gran Abs Auto 0.13 X10*3/uL (0.00-0.03); Imm Gran Pct Auto 1.1 % (0.0-0.4); Lymphocytes Absolute Auto 1.3 X10*3/uL (1.2-4.9); Lymphocytes Percent Auto 10.8 % (20-40); Mean Corpuscular HGB Conc 30.9 g/dl (31.0-36.0); Mean Corpuscular Hemoglobin 25.7 pg (27.0-33.0); Mean Corpuscular Volume 83.2 fL (80.0-98.0); Mean Platelet Volume 8.5 fL (9.4-12.4); Monocytes Absolute Auto 0.9 X10*3/uL (0.1-1.2); Monocytes Percent Auto 7.5 % (2-11); Neutrophils Absolute Auto 9.5 x10*3/uL (2.0-8.3); Neutrophils Percent Auto 79.5 % (45-73); Platelet Count 509 X10*3/uL (160-400); Red Blood Count 3.58 X10*6/uL (4.60-5.80); Red Cell Distribution Width 14.1 % (11.0-16.0); White Blood Count 11.9 X10*3/uL (4.8-10.8)
[2022-06-30] MEDS: Buprenorphine/Naloxone 8/2 mg FILM 1 FILM SUBLINGUAL (08:08)
[2022-06-30 08:12] LABS: INTERNATIONAL NORM RATIO 1.1 (0.9-1.1); Prothrombin Time 13.2 SEC (10.0-13.1)
[2022-06-30 08:20] LABS: Lactic Acid 2.3 mmol/L (0.5-2.0)
[2022-06-30 08:31] LABS: COVID-19 Test Negative (Negative)
[2022-06-30] MEDS: 0.9 % Sodium Chloride 500 ML IV (08:36)
[2022-06-30] MEDS: Piperacillin Sodium/Tazobactam 3.375 GM in 0.9 % Sodium Chloride 50 ML IV (08:36)
[2022-06-30 08:39] LABS: Erythrocyte Sedimentation Rate 104 MM/HR (0-15)
--- NOTE | 2022-06-30 08:51 | PHA.MEDREC ---
Pharmacy Consult ? Medication Reconciliation Pharmacy has completed the medication reconciliation.
[2022-06-30 09:03] LABS: Alanine Aminotransferase 19 U/L (0-40); Albumin Level 3.2 g/dL (3.5-5.0); Alkaline Phosphatase 116 U/L (39-117); Anion Gap 16 (12-20); Aspartate Amino Transferase 22 U/L (5-37); Bilirubin Direct < 0.2 mg/dL (0.0-0.5); Bilirubin Total 0.2 mg/dL (0.0-1.0); Blood Urea Nitrogen 15 mg/dL (9-16); C Reactive Protein 17.51 mg/dL (< or = 0.50); Calcium 8.9 mg/dL (8.4-10.2); Carbon Dioxide 30 mmol/L (22-29); Chloride 96 mmol/L (96-108); Creatinine Clr Calc Pharmacy 98.1; Estimated Glomerular Filt Rate > 60; Glucose Random 263 mg/dL (60-115); Magnesium 1.3 mg/dL (1.6-2.6); Potassium 3.7 mmol/L (3.3-5.1); Sodium 138 mmol/L (135-145); Total Protein 6.8 g/dL (6.5-8.0)
[2022-06-30] MEDS: iohexoL 350 MG/ML 100 ML INFUS..BTL IV (09:35)
[2022-06-30 10:00] LABS: Reflex Lactate? Lactic Acid Added
[2022-06-30] MEDS: Magnesium Sulfate/H2O 2 GM/50 ML PIGGYBACK IV (10:32)
[2022-06-30 10:57] VITALS: BP 175/90; PULSE 81; RESP 20; TEMP 37.2; O2SAT 93
[2022-06-30 10:59] LABS: Amphetamine Screen Urine Not Detected (Not Detect); Barbiturates, Urine Not Detected (Not Detect); Benzodiazepines Screen Urine Not Detected (Not Detect); Cannabinoid Screen Urine Not Detected (Not Detect); Cocaine Screen Urine Not Detected (Not Detect); Fentanyl, urine POSITIVE (Not Detect); Opiate Screen Urine POSITIVE (Not Detect); Phencyclidine Screen Urine Not Detected (Not Detect)
--- NOTE | 2022-06-30 14:48 | P.HPHOSP_ITS ---
History of Present Illness Date of Service: 06/30/22 Chief Complaint: Left ankle swelling and pain This is a 71-year-old male with a pertinent history of insulin-dependent diabetes, essential hypertension, opioid use disorder, mixed hyperlipidemia, mood disorder, BPH, prior bimalleolar fracture presents to the emergency department for evaluation of left ankle swelling and pain. Patient states he 1st noticed left ankle swelling and pain 2 days prior to presentation. Patient has VNA at home told him to go to the ER for further evaluation. Patient denies fever, chills, nausea, vomiting. He does not know if he has had previous infections. Patient denies chest discomfort, shortness of breath, palpitations, abdominal discomfort or changes in urinary or bowel habits. In the emergency department, patient was found to have leukocytosis, lactic acidosis and elevated CRP and ESR. Imaging with concerns for septic arthritis Review of Systems Constitutional: Constitutional: Reports no additional constitutional complaints Cardiovascular: Cardiovascular: Reports no additional cardiovascular complaints Respiratory: Respiratory: Reports no additional respiratory complaints Gastrointestinal: Gastrointestinal: Reports no additional gastrointestinal complaints Musculoskeletal: Musculoskeletal: Reports arthralgias, Reports joint swelling and Reports stiffness Comments: left ankle PMFSH Medical History Anxiety CAD (coronary artery disease) Chronic constipation COPD (chronic obstructive pulmonary disease) Diabetes mellitus Genital herpes GERD (gastroesophageal reflux disease) History of adenomatous polyp of colon Hypertension Opioid dependence on agonist therapy JAUN (obstructive sleep apnea) Pancreatic abnormality Prepatellar bursitis, left knee Family History Mother No problems noted. Father Liver cancer Surgical History History of ankle surgery Social History Household Members: None Housing: Apartment Do you presently have visiting nurse or other home services: No Alcohol intake: former Patient Tobacco Use Status: Current everyday Tobacco user Tobacco use type: Cigarette Cigarettes Per Day: 4 e-Cigarette/Vaping Use: Currently Using Second Hand Smoke Exposure: No Substance Use Type: Heroin Advance Directives: Yes Advance Directives on File: Yes Advance Directives Date on File: 01/28/22 service: No Current occupational status: retired and disabled Current occupation: right handed Meds Allergies Allergy/AdvReac Type Severity Reaction Status Date / Time No Known Allergies Allergy Verified 05/01/22 13:25 Active Medications: Current Medications Acetaminophen (Acetaminophen 325 Mg Tablet) 650 mg PO Q6H PRN PRN Reason: Pain, Mild (Pain Scale 1-3) Amlodipine Besylate (Amlodipine Besylate 10 Mg Tablet) 10 mg PO BEDTIME SAM; Protocol Atorvastatin Calcium (Atorvastatin Calcium 40 Mg Tablet) 40 mg PO BEDTIME SAM Buprenorphine/Naloxone (Buprenorphine/Naloxone 8/2 Mg Film) 1 film BUCCAL BID SAM Dextrose (Dextrose 50 % 25 Gm/50 Ml Syringe) 25 gm IVPUSH Q15M PRN; Protocol PRN Reason: per Hypoglycemia Standing Ord. Dorzolamide/Timolol (Dorzolamide/Timolo 2.23%/0.68% 10 Ml Drbtl) 1 drop EYE- BOTH BID SAM Enoxaparin Sodium (Enoxaparin Sodium 40 Mg/0.4 Ml Syringe) 40 mg SUBCUT Q24H SAM Glucose (Glucose Gel 15 Gm Gel..Gram.) 15 gm PO Q15M PRN; Protocol PRN Reason: per Hypoglycemia Standing Ord. Cefepime HCl 2 gm/ Sodium (Chloride) 50 mls @ 100 mls/hr IV Q8H SAM Insulin Human Lispro (Insulin Lispro 100 Unit/Ml 3 Ml Vial) 0 unit SUBCUT QIDACHS SAM; Protocol Stop: 07/01/22 14:39 Latanoprost (Latanoprost 0.005 % Ophth Yari 2.5 Ml Drops) 1 drop EYE-LEFT BEDTIME SAM Lisinopril (Lisinopril 40 Mg Tablet) 40 mg PO BID SAM; Protocol Loratadine (Loratadine 10 Mg Tablet) 10 mg PO DAILY SAM Melatonin (Melatonin 3 Mg Tablet) 6 mg PO BEDTIME PRN PRN Reason: Insomnia Metoprolol Succinate (Metoprolol Succinate Er 25 Mg Tab.Er.24h) 25 mg PO DAILY SAM; Protocol Multivitamins/Vitamin C (Multivitamin Tablet) 1 tab PO DAILY SAM Non-Formulary Medication (Ferrous Sulfate) 2 ml PO DAILY [facility] Non-Formulary Medication (Insulin Detemir U-100 [Levemir U-100 Insulin]) 84 unit SUBCUT BEDTIME SAM Non-Formulary Medication (Golva-3 Fatty Acids-Fish Oil [Fish Oil]) 1 cap PO TID [facility] Non-Formulary Medication (Peg [id number] [Dry Eye Relief]) 1 drop EYE-BOTH QID [facility] Olanzapine (Olanzapine 5 Mg Tablet) 5 mg PO BEDTIME [facility] Omeprazole (Omeprazole 20 Mg Capsule.Dr) 20 mg PO DAILY [facility] Ondansetron HCl (Ondansetron Hcl 4 Mg/2 Ml Vial) 4 mg IVPUSH Q8H PRN PRN Reason: Nausea and Vomiting Oxybutynin Chloride (Oxybutynin Chloride Er 5 Mg Tab.Er.24) 5 mg PO DAILY [facility] Pharmacy Consult (Consult Rx Perform Med Rec) 1 each MISCELLANE ONCE PRN PRN Reason: Consult order Pharmacy Consult (Consult Rx Vancomycin Dosing) 1 each MISCELLANE DAILY PRN PRN Reason: Consult order Sodium Chloride (0.9 % Sodium Chloride Flush 3 Ml Syringe) 3 ml IVFLUSH QSHIFT [facility] Tamsulosin HCl (Tamsulosin Hcl 0.4 Mg Capsule) 0.4 mg PO BEDTIME [facility] Trazodone HCl (Trazodone Hcl 100 Mg Tablet) 300 mg PO BEDTIME [facility] Home Medications Medication Instructions Recorded Confirmed Last Taken Type lisinopril 40 mg tablet 40 mg PO BID 06/06/20 06/30/22 06/30/22 History metoprolol succinate 25 mg 25 mg PO DAILY 06/06/20 06/30/22 06/30/22 History tablet,extended release 24 hr atorvastatin 40 mg tablet 40 mg PO BEDTIME 03/26/21 06/30/22 06/29/22 History dorzolamide 22.3 mg-timolol 6.8 1 drp ophthalmic (eye) BID 03/26/21 06/30/22 06/29/22 History mg/mL eye drops glipizide 5 mg tablet, extended 5 mg PO DAILY 03/26/21 06/30/22 06/30/22 History release 24 hr insulin detemir U-100 100 unit/mL 84 unit subcut BEDTIME 03/26/21 06/30/22 06/29/22 History subcutaneous solution (Levemir U-100 Insulin) latanoprost 0.005 % eye drops 1 drp ophthalmic-Left BEDTIME 03/26/21 06/30/22 06/29/22 History metformin 1,000 mg tablet 1,000 mg PO BID 03/26/21 06/30/22 06/30/22 History multivitamin-ferrous 1 tab PO DAILY 03/26/21 06/30/22 06/30/22 History fumarate-folic acid 18 mg-400 mcg tablet (Certavite-Antioxidant) omega-3 fatty acids-fish oil 340 1 cap PO TID 03/26/21 06/30/22 06/30/22 History mg-1,000 mg capsule (Fish Oil) peg [id number] 1 1 drp ophthalmic (eye) QID 03/26/21 06/30/22 06/29/22 History %-0.2 %-0.2 % eye drops (Dry Eye Relief) trazodone 150 mg tablet 300 mg PO BEDTIME 03/26/21 06/30/22 06/29/22 History loratadine 10 mg tablet 10 mg PO DAILY 09/11/21 06/30/22 06/30/22 History amlodipine 10 mg tablet 1 tab PO BEDTIME 06/30/22 06/30/22 06/29/22 History olanzapine 5 mg tablet 1 tab PO BEDTIME 06/30/22 06/30/22 06/29/22 History oxybutynin chloride 5 mg 1 tab PO DAILY 06/30/22 06/30/22 06/30/22 History tablet,extended release 24 hr Physical Exam Vital Signs and Narrative: Vital Signs: Last Vital Signs Temp 98.9 F 06/30/22 10:57 Pulse 81 06/30/22 10:57 Resp 20 06/30/22 10:57 BP 175/90 H 06/30/22 10:57 Pulse Ox 93 06/30/22 10:57 O2 Del Method 06/30/22 10:57 BMI result Body Mass Index 31.3 Elderly male lying in bed in no distress Neck supple, no JVD Regular rate and rhythm, S1-S2 heard Regular breath sounds bilaterally, no wheezing or crackles appreciated Abdomen soft nontender, no guarding, no rigidity Patient is awake, alert and oriented to self, place, time and person ; no focal motor deficit Extremity: left ankle with swelling, pain, warmth and redness Psych: Normal mood Results Labs CBC and Chem 7: 06/30/22 07:56 06/30/22 07:56 Labs: Laboratory Results - last 24 hr 06/30/22 06/30/22 06/30/22 07:51 07:56 07:56 MCV 83.2 MCH 25.7 L MCHC 30.9 L RDW 14.1 Plt Count 509 H MPV 8.5 L Immature Gran % (Auto) 1.1 H Neut % (Auto) 79.5 H Lymph % (Auto) 10.8 L [place] % (Auto) 7.5 Eos % (Auto) 0.8 Baso % (Auto) 0.3 Lymph # (Auto) 1.3 [place] # (Auto) 0.9 Eos # (Auto) 0.1 Baso # (Auto) 0.0 Abs Immat Gran (auto) 0.13 H Absolute Neuts (auto) 9.5 H Absolute Nucleated RBC 0.000 Nucleated RBC % (auto) 0.0 ESR 104 H PT INR Anion Gap Estim Creat Clear Calc Estimated GFR Random Glucose Lactic Acid Lactic Acid F/U @ 2Hr Calcium Magnesium Total Bilirubin Direct Bilirubin AST ALT Alkaline Phosphatase C-Reactive Protein Total Protein Albumin Urine Opiates Screen Urine Fentanyl Screen Ur Barbiturates Screen Ur Phencyclidine Scrn Ur Amphetamines Screen U Benzodiazepines Scrn Urine Cocaine Screen U Marijuana (THC) Screen COVID-19 (THANG) Negative COVID-19 Clin Com See Note 06/30/22 06/30/22 06/30/22 07:56 07:56 07:56 MCV MCH MCHC RDW Plt Count MPV Immature Gran % (Auto) Neut % (Auto) Lymph % (Auto) [place] % (Auto) Eos % (Auto) Baso % (Auto) Lymph # (Auto) [place] # (Auto) Eos # (Auto) Baso # (Auto) Abs Immat Gran (auto) Absolute Neuts (auto) Absolute Nucleated RBC Nucleated RBC % (auto) ESR PT 13.2 H INR 1.1 Anion Gap 16 Estim Creat Clear Calc 98.1 Estimated GFR > 60 Random Glucose 263 H Lactic Acid 2.3 H* Lactic Acid F/U @ 2Hr Calcium 8.9 D Magnesium 1.3 L* Total Bilirubin 0.2 Direct Bilirubin < 0.2 AST 22 ALT 19 Alkaline Phosphatase 116 C-Reactive Protein 17.51 H Total Protein 6.8 Albumin 3.2 L Urine Opiates Screen Urine Fentanyl Screen Ur Barbiturates Screen Ur Phencyclidine Scrn Ur Amphetamines Screen U Benzodiazepines Scrn Urine Cocaine Screen U Marijuana (THC) Screen COVID-19 (THANG) COVID-19 Clin Com 06/30/22 06/30/22 10:34 10:35 MCV MCH MCHC RDW Plt Count MPV Immature Gran % (Auto) Neut % (Auto) Lymph % (Auto) [place] % (Auto) Eos % (Auto) Baso % (Auto) Lymph # (Auto) [place] # (Auto) Eos # (Auto) Baso # (Auto) Abs Immat Gran (auto) Absolute Neuts (auto) Absolute Nucleated RBC Nucleated RBC % (auto) ESR PT INR Anion Gap Estim Creat Clear Calc Estimated GFR Random Glucose Lactic Acid Lactic Acid F/U @ 2Hr 2.0 Calcium Magnesium Total Bilirubin Direct Bilirubin AST ALT Alkaline Phosphatase C-Reactive Protein Total Protein Albumin Urine Opiates Screen POSITIVE H Urine Fentanyl Screen POSITIVE H Ur Barbiturates Screen Not Detected Ur Phencyclidine Scrn Not Detected Ur Amphetamines Screen Not Detected U Benzodiazepines Scrn Not Detected Urine Cocaine Screen Not Detected U Marijuana (THC) Screen Not Detected COVID-19 (THANG) COVID-19 Clin Com Imaging Radiologist's Impressions: Impressions Ankle X-Ray 06/30/22 07:40 IMPRESSION: * ORIF of the transversely oriented medial malleolar fracture with persistent though decreasing conspicuity of the fracture line. Persistent widening of the medial clear space. * Healed distal fibular fracture. * Ill-definition of the subchondral bone of the tibial plafond is nonspecific, and may relate to disuse osteopenia, although osteomyelitis cannot be excluded radiographically. * Diffuse soft tissue swelling increased from the prior. Venous Duplex 06/30/22 08:12 IMPRESSION: 1. No evidence for deep venous thrombosis in the visualized veins of the left lower extremity. 2. Enlarged left inguinal lymph nodes are nonspecific, but may be reactive. Correlate with physical exam. If these findings persist or enlarge, short-term repeat targeted soft tissue ultrasound can be performed as clinically indicated to assess for change. 3. Mild to moderate subcutaneous edema in the left calf. Ankle CT 06/30/22 09:36 IMPRESSION: * Periarticular osteoporosis throughout the visualized ankle and foot. * There is lack of osseous union of the medial malleolar fracture. No significant osseous union of the oblique distal fibular fracture, status post open reduction and internal fixation. * There is osteolysis, erosive change, at the ankle joint with small ankle joint effusion. Septic arthritis is possible. * There is mild peripheral enhancement around a 1.2 x 3.7 x 4 cm fluid collection in the subcutaneous compartment of the medial ankle. There is no gas within this collection. Nevertheless, this could represent an abscess. * Diffuse subcutaneous tissue edema of the extremity. Assessment and Plan (1) Left ankle swelling: Status: Acute (2) Hypertension: Status: Acute (3) Opioid dependence: Status: Acute (4) Hypertension: Status: Acute (5) Diabetes mellitus: Status: Acute (6) BPH w urinary obs/LUTS: Status: Acute Plan This is a 71-year-old male with a pertinent history of insulin-dependent diabetes, essential hypertension, opioid use disorder, mixed hyperlipidemia, mood disorder, BPH, prior bimalleolar fracture presents to the emergency department for evaluation of left ankle swelling and pain. #. Left ankle swelling -with imaging concerns for septic arthritis. Also noted elevated ESR and CRP. Initiated empiric broad-spectrum IV antibiotics. Orthopedic surgery has been consulted from the ER. Consulted Infectious Disease #. Lactic acidosis -Type A, resolved with IV fluid resuscitation #. Hypomagnesemia -repleted #. Opioid use disorder -continue buprenorphine and naloxone #. Mood disorder -continue trazodone and Zyprexa #. Essential hypertension -continue home p.o. medications #. BPH -on Flomax and oxybutynin #. Insulin-dependent type 2 diabetes mellitus with hyperglycemia -hold p.o. medications. Continue home basal regimen, add Accu-Cheks with sliding scale insulin #. Chronic normocytic anemia -Hb above transfusion threshold DVT prophylaxis: Lovenox 40 mg daily Diabetic diet Full code Admit as inpatient and will require two night minimum hospital stay for need for IV antibiotics. Specialist consult pending Quality Stroke Does the patient have a stroke diagnosis?: No VTE Prior VTE?: No VTE Risk Level:: Medical - moderate - high VTE Device Contraindication: Treatment Not Indicated VTE Drug Contraindication: N/A - Med Ordered
[2022-06-30 15:53] LABS: Estimated Average Glucose 194 mg/dL; Hemoglobin A1c % 8.4 %
[2022-06-30] MEDS: cefEPime HCl 2 GM in 0.9 % Sodium Chloride 50 ML IV ×2 (16:25→23:16)
[2022-06-30] MEDS: Enoxaparin Sodium 40 MG/0.4 ML SYRINGE SUBCUT (16:25)
[2022-06-30] MEDS: 0.9 % Sodium Chloride Flush 3 ML SYRINGE IVFLUSH (16:26)
[2022-06-30 16:29] VITALS: BP 149/82; PULSE 81; RESP 17; TEMP 37.1; O2SAT 97
--- NOTE | 2022-06-30 16:43 | PC.NURSE ---
Awaiting eye drops from pharmacy. Pt resting comfortably in bed at this time. States IV is bothering him, this RN offered to look for a different IV spot, pt declined.
[2022-06-30 17:00] LABS: Glucose, Whole Blood 161 mg/dL (60-115)
[2022-06-30] MEDS: Dorzolamide/Timolo 2.23%/0.68% 10 ML DRBTL 1 DROP EYE-BOTH ×2 (17:01→20:07)
[2022-06-30] MEDS: Artificial Tears 15 ML DROPS 1 DROP EYE-BOTH ×2 (17:59→20:07)
[2022-06-30] MEDS: Buprenorphine/Naloxone 8/2 mg FILM 1 FILM BUCCAL (20:06)
[2022-06-30] MEDS: amLODIPine Besylate 10 MG TABLET PO (20:06)
[2022-06-30] MEDS: traZODone HCL 100 MG TABLET 300 MG PO (20:06)
[2022-06-30] MEDS: OLANZapine 5 MG TABLET PO (20:06)
[2022-06-30] MEDS: Tamsulosin HCL 0.4 MG CAPSULE PO (20:06)
[2022-06-30] MEDS: lisinopriL 40 MG TABLET PO (20:06)
[2022-06-30] MEDS: Atorvastatin Calcium 40 MG TABLET PO (20:06)
[2022-06-30] MEDS: Insulin Glargine,Hum.rec.anlog 100 UNIT/ML 10 ML VIAL 59 UNIT SUBCUT (20:06)
[2022-06-30] MEDS: vancomycin HCL 1,000 MG in 0.9 % Sodium Chloride 250 ML 270 MG IV (20:07)
[2022-06-30] MEDS: Latanoprost 0.005 % Ophth Sol 2.5 ML DROPS 1 DROP EYE-LEFT (21:11)
[2022-06-30 22:14] LABS: Glucose, Whole Blood 195 mg/dL (60-115)
--- NOTE | 2022-06-30 22:26 | PC.NURSE ---
Addendum entered by Josefina Lam RN 07/01/22 07:05: report given to MARSHALL Carbajal Original Note: report received from MARSHALL Gan pt is alert and oriented resting in bed no signs of acute distress notice breathing equally unlabored
[2022-06-30 22:38] VITALS: BP 170/90; PULSE 79; RESP 20; TEMP 36.8; O2SAT 96
[2022-07-01 05:37] VITALS: BP 150/77; PULSE 78; RESP 20; TEMP 36.4; O2SAT 96
[2022-07-01] MEDS: Omeprazole 20 MG CAPSULE.DR PO (05:40)
[2022-07-01 06:10] LABS: MANUAL DIFF FLAG NO
[2022-07-01 06:31] LABS: Creatinine Clr Calc Pharmacy 112.1; Estimated Glomerular Filt Rate > 60
[2022-07-01 06:33] LABS: Anion Gap 18 (12-20); Basophils Percent Auto 0.4 % (0-2); Blood Urea Nitrogen 7 mg/dL (9-16); Calcium 9.5 mg/dL (8.4-10.2); Carbon Dioxide 30 mmol/L (22-29); Chloride 97 mmol/L (96-108); Creatinine Clr Calc Pharmacy 105.4; Eosinophils Absolute Auto 0.1 X10*3/uL (0.0-0.4); Eosinophils Percent Auto 1.1 % (0-4); Estimated Glomerular Filt Rate > 60; Glucose Random 159 mg/dL (60-115); Hematocrit 31.3 % (42.0-52.0); Hemoglobin 9.8 g/dl (14.0-18.0); Imm Gran Pct Auto 0.9 % (0.0-0.4); Lymphocytes Absolute Auto 1.8 X10*3/uL (1.2-4.9); Lymphocytes Percent Auto 16.1 % (20-40); Mean Corpuscular HGB Conc 31.3 g/dl (31.0-36.0); Mean Corpuscular Hemoglobin 25.9 pg (27.0-33.0); Mean Corpuscular Volume 82.6 fL (80.0-98.0); Mean Platelet Volume 8.7 fL (9.4-12.4); Monocytes Absolute Auto 0.8 X10*3/uL (0.1-1.2); Monocytes Percent Auto 7.4 % (2-11); Neutrophils Absolute Auto 8.5 x10*3/uL (2.0-8.3); Neutrophils Percent Auto 74.1 % (45-73); Platelet Count 581 X10*3/uL (160-400); Potassium 4.1 mmol/L (3.3-5.1); Red Blood Count 3.79 X10*6/uL (4.60-5.80); Red Cell Distribution Width 13.9 % (11.0-16.0); Sodium 141 mmol/L (135-145); White Blood Count 11.4 X10*3/uL (4.8-10.8)
--- NOTE | 2022-07-01 07:23 | PM.CNOR ---
History of Present Illness HPI Consult date: 07/01/22 Chief complaint: Left knee swelling Narrative: Mr. Garza is a 71 yo male with a PMH significant for of COPD, PTSD, HTN, MSSA bacteremia, opiate use disorder, DM, TENA, prior bimalleolar fracture, GERD, chronic constipation presents with L ankle swelling and leg redness/pain. Patient is status post left ankle ORIF on 02/03/[address] Lee. He is unable to tolerate the sequence of events leading up to presenting to the emergency department yesterday but reports that he has had increased left ankle pain and swelling for the past 2 days. No new injury or trauma. Patient has been on abx with reportedly no improvement of pain. Review of Systems Review of Systems: Yes all other systems are reviewed and are negative PMFSH Past Medical History Medical History Anxiety CAD (coronary artery disease) Chronic constipation COPD (chronic obstructive pulmonary disease) Diabetes mellitus Genital herpes GERD (gastroesophageal reflux disease) History of adenomatous polyp of colon Hypertension Opioid dependence on agonist therapy JAUN (obstructive sleep apnea) Pancreatic abnormality Prepatellar bursitis, left knee Family History Family History Mother No problems noted. Father Liver cancer Surgical History Surgical History History of ankle surgery Social History Social History Household Members: None Housing: Apartment Do you presently have visiting nurse or other home services: No Alcohol intake: former Patient Tobacco Use Status: Current everyday Tobacco user Tobacco use type: Cigarette Cigarettes Per Day: 4 e-Cigarette/Vaping Use: Currently Using Second Hand Smoke Exposure: No Substance Use Type: Heroin Advance Directives: Yes Advance Directives on File: Yes Advance Directives Date on File: 01/28/22 service: No Current occupational status: retired and disabled Current occupation: right handed Meds Allergies Allergy/AdvReac Type Severity Reaction Status Date / Time No Known Allergies Allergy Verified 05/01/22 13:25 Active Medications: Current Medications Acetaminophen (Acetaminophen 325 Mg Tablet) 650 mg PO Q6H PRN PRN Reason: Pain, Mild (Pain Scale 1-3) Amlodipine Besylate (Amlodipine Besylate 10 Mg Tablet) 10 mg PO BEDTIME [facility]; Protocol Last Admin: 06/30/22 20:06 Dose: 10 mg Artificial Tears (Artificial Tears 15 Ml Drops) 1 drop EYE-BOTH QID [facility] Last Admin: 06/30/22 20:07 Dose: 1 drop Atorvastatin Calcium (Atorvastatin Calcium 40 Mg Tablet) 40 mg PO BEDTIME [facility] Last Admin: 06/30/22 20:06 Dose: 40 mg Buprenorphine/Naloxone (Buprenorphine/Naloxone 8/2 Mg Film) 1 film BUCCAL BID [facility] Last Admin: 06/30/22 20:06 Dose: 1 film Dextrose (Dextrose 50 % 25 Gm/50 Ml Syringe) 25 gm IVPUSH Q15M PRN; Protocol PRN Reason: per Hypoglycemia Standing Ord. Dorzolamide/Timolol (Dorzolamide/Timolo 2.23%/0.68% 10 Ml Drbtl) 1 drop EYE-BOTH BID [facility] Last Admin: 06/30/22 20:07 Dose: 1 drop Enoxaparin Sodium (Enoxaparin Sodium 40 Mg/0.4 Ml Syringe) 40 mg SUBCUT Q24H [facility] Last Admin: 06/30/22 16:25 Dose: 40 mg Ferrous Sulfate (Ferrous Sulfate 300 Mg/5 Ml Liquid) 150 mg PO DAILY [facility] Glucose (Glucose Gel 15 Gm Gel..Gram.) 15 gm PO Q15M PRN; Protocol PRN Reason: per Hypoglycemia Standing Ord. Cefepime HCl 2 gm/ Sodium (Chloride) 50 mls @ 100 mls/hr IV Q8H [facility] Last Admin: 06/30/22 23:16 Dose: 100 mls/hr Vancomycin HCl 1,000 mg/ (Sodium Chloride) 270 mls @ 270 mls/hr IV Q12H [facility] Last Infusion: 06/30/22 21:28 Dose: Infused Insulin Glargine (Insulin Glargine,Hum.Rec.Anlog 100 Unit/Ml 10 Ml Vial) 59 unit SUBCUT BEDTIME [facility] Last Admin: 06/30/22 20:06 Dose: 59 unit Insulin Human Lispro (Insulin Lispro 100 Unit/Ml 3 Ml Vial) 0 unit SUBCUT QIDACHS [facility]; Protocol Stop: 07/01/22 14:39 Last Admin: 06/30/22 22:38 Dose: Not Given Latanoprost (Latanoprost 0.005 % Ophth Yari 2.5 Ml Drops) 1 drop EYE-LEFT BEDTIME [facility] Last Admin: 06/30/22 21:11 Dose: 1 drop Lisinopril (Lisinopril 40 Mg Tablet) 40 mg PO BID [facility]; Protocol Last Admin: 06/30/22 20:06 Dose: 40 mg Loratadine (Loratadine 10 Mg Tablet) 10 mg PO DAILY [facility] Melatonin (Melatonin 3 Mg Tablet) 6 mg PO BEDTIME PRN PRN Reason: Insomnia Metoprolol Succinate (Metoprolol Succinate Er 25 Mg Tab.Er.24h) 25 mg PO DAILY [facility]; Protocol Multivitamins/Vitamin C (Multivitamin Tablet) 1 tab PO DAILY [facility] Olanzapine (Olanzapine 5 Mg Tablet) 5 mg PO BEDTIME [facility] Last Admin: 06/30/22 20:06 Dose: 5 mg Omeprazole (Omeprazole 20 Mg Capsule.Dr) 20 mg PO DAILY@0630 [facility] Last Admin: 07/01/22 05:40 Dose: 20 mg Ondansetron HCl (Ondansetron Hcl 4 Mg/2 Ml Vial) 4 mg IVPUSH Q8H PRN PRN Reason: Nausea and Vomiting Oxybutynin Chloride (Oxybutynin Chloride Er 5 Mg Tab.Er.24) 5 mg PO DAILY [facility] Pharmacy Consult (Consult Rx Perform Med Rec) 1 each MISCELLANE ONCE PRN PRN Reason: Consult order Pharmacy Consult (Consult Rx Vancomycin Dosing) 1 each MISCELLANE DAILY PRN PRN Reason: Consult order Sodium Chloride (0.9 % Sodium Chloride Flush 3 Ml Syringe) 3 ml IVFLUSH QSHIFT [facility] Last Admin: 06/30/22 23:47 Dose: Not Given Tamsulosin HCl (Tamsulosin Hcl 0.4 Mg Capsule) 0.4 mg PO BEDTIME [facility] Last Admin: 06/30/22 20:06 Dose: 0.4 mg Trazodone HCl (Trazodone Hcl 100 Mg Tablet) 300 mg PO BEDTIME [facility] Last Admin: 06/30/22 20:06 Dose: 300 mg Home Medications Medication Instructions Recorded Confirmed Last Taken Type lisinopril 40 mg tablet 40 mg PO BID 06/06/20 06/30/22 06/30/22 History metoprolol succinate 25 mg 25 mg PO DAILY 06/06/20 06/30/22 06/30/22 History tablet,extended release 24 hr atorvastatin 40 mg tablet 40 mg PO BEDTIME 03/26/21 06/30/22 06/29/22 History dorzolamide 22.3 mg-timolol 6.8 1 drp ophthalmic (eye) BID 03/26/21 06/30/22 06/29/22 History mg/mL eye drops glipizide 5 mg tablet, extended 5 mg PO DAILY 03/26/21 06/30/22 06/30/22 History release 24 hr insulin detemir U-100 100 unit/mL 84 unit subcut BEDTIME 03/26/21 06/30/22 06/29/22 History subcutaneous solution (Levemir U-100 Insulin) latanoprost 0.005 % eye drops 1 drp ophthalmic-Left BEDTIME 03/26/21 06/30/22 06/29/22 History metformin 1,000 mg tablet 1,000 mg PO BID 03/26/21 06/30/22 06/30/22 History multivitamin-ferrous 1 tab PO DAILY 03/26/21 06/30/22 06/30/22 History fumarate-folic acid 18 mg-400 mcg tablet (Certavite-Antioxidant) omega-3 fatty acids-fish oil 340 1 cap PO TID 03/26/21 06/30/22 06/30/22 History mg-1,000 mg capsule (Fish Oil) peg [id number] 1 1 drp ophthalmic (eye) QID 03/26/21 06/30/22 06/29/22 History %-0.2 %-0.2 % eye drops (Dry Eye Relief) trazodone 150 mg tablet 300 mg PO BEDTIME 03/26/21 06/30/22 06/29/22 History loratadine 10 mg tablet 10 mg PO DAILY 09/11/21 06/30/22 06/30/22 History amlodipine 10 mg tablet 1 tab PO BEDTIME 06/30/22 06/30/22 06/29/22 History olanzapine 5 mg tablet 1 tab PO BEDTIME 06/30/22 06/30/22 06/29/22 History oxybutynin chloride 5 mg 1 tab PO DAILY 06/30/22 06/30/22 06/30/22 History tablet,extended release 24 hr Physical Exam Vital Signs: Vital Signs: Last Vital Signs Temp 97.5 F 07/01/22 05:37 Pulse 78 07/01/22 05:37 Resp 20 07/01/22 05:37 BP 150/77 H 07/01/22 05:37 Pulse Ox 96 07/01/22 05:37 O2 Del Method 07/01/22 05:37 BMI result Body Mass Index 31.3 Const: General: cooperative, healthy appearing and no acute distress Resp: Effort & Inspection: normal respiratory effort and able to speak in complete sentences Cardio: Rate: regular rate Peripheral pulses: Peripheral pulses 2+ throughout GI: Palpation (GI): Soft to palpation Skin: Lesions: no lesions Rashes: no rashes Extrem: Other: Left ankle medial malleolar edema with surrounding skin discoloration roughly the size of a golfball. and exquistly tender to palpation. Patient is unable to dorsiflex or plantarflex due to pain. Sensation is reportedly intact. Pedal pulse intact. Results Labs Result Diagrams: 07/01/22 05:51 07/01/22 05:51 Labs: Abnormal lab results 06/30/22 06/30/22 06/30/22 Range/Units 07:56 07:56 07:56 WBC 11.9 H (4.8-10.8) X10*3/uL RBC 3.58 L (4.60-5.80) X10*6/uL Hgb 9.2 L (14.0-18.0) g/dl Hct 29.8 L (42.0-52.0) % MCH 25.7 L (27.0-33.0) pg MCHC 30.9 L (31.0-36.0) g/dl Plt Count 509 H (160-400) X10*3/uL MPV 8.5 L (9.4-12.4) fL Immature Gran % (Auto) 1.1 H (0.0-0.4) % Neut % (Auto) 79.5 H (45-73) % Lymph % (Auto) 10.8 L (20-40) % Abs Immat Gran (auto) 0.13 H (0.00-0.03) X10*3/uL Absolute Neuts (auto) 9.5 H (2.0-8.3) x10*3/uL ESR 104 H (0-15) MM/HR PT 13.2 H (10.0-13.1) SEC Carbon Dioxide (22-29) mmol/L BUN (9-16) mg/dL POC Glucose (60-115) mg/dL Random Glucose (60-115) mg/dL Lactic Acid (0.5-2.0) mmol/L Magnesium (1.6-2.6) mg/dL C-Reactive Protein (< or = 0.50) mg/dL Albumin (3.5-5.0) g/dL Urine Opiates Screen (Not Detect) Urine Fentanyl Screen (Not Detect) 06/30/22 06/30/22 06/30/22 Range/Units 07:56 07:56 10:35 WBC (4.8-10.8) X10*3/uL RBC (4.60-5.80) X10*6/uL Hgb (14.0-18.0) g/dl Hct (42.0-52.0) % MCH (27.0-33.0) pg MCHC (31.0-36.0) g/dl Plt Count (160-400) X10*3/uL MPV (9.4-12.4) fL Immature Gran % (Auto) (0.0-0.4) % Neut % (Auto) (45-73) % Lymph % (Auto) (20-40) % Abs Immat Gran (auto) (0.00-0.03) X10*3/uL Absolute Neuts (auto) (2.0-8.3) x10*3/uL ESR (0-15) MM/HR PT (10.0-13.1) SEC Carbon Dioxide 30 H (22-29) mmol/L BUN (9-16) mg/dL POC Glucose (60-115) mg/dL Random Glucose 263 H (60-115) mg/dL Lactic Acid 2.3 H* (0.5-2.0) mmol/L Magnesium 1.3 L* (1.6-2.6) mg/dL C-Reactive Protein 17.51 H (< or = 0.50) mg/dL Albumin 3.2 L (3.5-5.0) g/dL Urine Opiates Screen POSITIVE H (Not Detect) Urine Fentanyl Screen POSITIVE H (Not Detect) 06/30/22 06/30/22 07/01/22 Range/Units 16:56 22:09 05:51 WBC 11.4 H (4.8-10.8) X10*3/uL RBC 3.79 L (4.60-5.80) X10*6/uL Hgb 9.8 L (14.0-18.0) g/dl Hct 31.3 L (42.0-52.0) % MCH 25.9 L (27.0-33.0) pg MCHC (31.0-36.0) g/dl Plt Count 581 H (160-400) X10*3/uL MPV 8.7 L (9.4-12.4) fL Immature Gran % (Auto) 0.9 H (0.0-0.4) % Neut % (Auto) 74.1 H (45-73) % Lymph % (Auto) 16.1 L (20-40) % Abs Immat Gran (auto) 0.10 H (0.00-0.03) X10*3/uL Absolute Neuts (auto) 8.5 H (2.0-8.3) x10*3/uL ESR (0-15) MM/HR PT (10.0-13.1) SEC Carbon Dioxide (22-29) mmol/L BUN (9-16) mg/dL POC Glucose 161 H 195 H (60-115) mg/dL Random Glucose (60-115) mg/dL Lactic Acid (0.5-2.0) mmol/L Magnesium (1.6-2.6) mg/dL C-Reactive Protein (< or = 0.50) mg/dL Albumin (3.5-5.0) g/dL Urine Opiates Screen (Not Detect) Urine Fentanyl Screen (Not Detect) 07/01/22 Range/Units 05:51 WBC (4.8-10.8) X10*3/uL RBC (4.60-5.80) X10*6/uL Hgb (14.0-18.0) g/dl Hct (42.0-52.0) % MCH (27.0-33.0) pg MCHC (31.0-36.0) g/dl Plt Count (160-400) X10*3/uL MPV (9.4-12.4) fL Immature Gran % (Auto) (0.0-0.4) % Neut % (Auto) (45-73) % Lymph % (Auto) (20-40) % Abs Immat Gran (auto) (0.00-0.03) X10*3/uL Absolute Neuts (auto) (2.0-8.3) x10*3/uL ESR (0-15) MM/HR PT (10.0-13.1) SEC Carbon Dioxide 30 H (22-29) mmol/L BUN 7 L D (9-16) mg/dL POC Glucose (60-115) mg/dL Random Glucose 159 H D (60-115) mg/dL Lactic Acid (0.5-2.0) mmol/L Magnesium (1.6-2.6) mg/dL C-Reactive Protein (< or = 0.50) mg/dL Albumin (3.5-5.0) g/dL Urine Opiates Screen (Not Detect) Urine Fentanyl Screen (Not Detect) H & H 06/30/22 07/01/22 Range/Units 07:56 05:51 Hgb 9.2 L 9.8 L (14.0-18.0) g/dl Hct 29.8 L 31.3 L (42.0-52.0) % Coagulation 06/30/22 Range/Units 07:56 INR 1.1 (0.9-1.1) All other labs normal. Assessment and Plan (1) Left ankle swelling: Status: Acute (2) Post-traumatic arthritis of left ankle: Status: Acute (3) History of fracture of left ankle: Status: Acute (4) Opioid dependence: Status: Acute (5) Diabetes mellitus: Status: Acute (6) Opioid dependence on agonist therapy: Status: Acute (7) Bimalleolar ankle fracture: Status: Acute Plan Dr. Lee was available to see the patient with me this morning. He has been seeing the patient regularly in the outpatient office. The ankle appears to be in the same state as the patient presents today.. No open areas or drainage. Tenderness to palpation with area of fluctuance is concerning for possible abscess. Recommendation is for removal of orthopedic hardware. I discussed the case with Dr. Lee and explained the extent of the injury to the patient and options available which include surgical intervention. I explained the procedure in detail along with the length of recovery and rehab course. I explained the risk, benefits and alternatives. Risk including, but not limited to infection, blood clots, bleeding, non union or malunion and nerve/tissue damage to surrounding areas. I answered all their questions and with their understanding they have consented to move forward with removal of orthopedic hardware left ankle. Plan to bring patient to the OR likely Wednesday. Should be held NPO after midnight the night before surgery. Procedures Date of Service Date of Service: 07/01/22
[2022-07-01 07:34] LABS: Glucose, Whole Blood 164 mg/dL (60-115)
[2022-07-01 08:39] VITALS: BP 156/75; PULSE 81; RESP 20; TEMP 37.2; O2SAT 97
[2022-07-01] MEDS: Ferrous Sulfate 300 MG/5 ML LIQUID 150 MG PO (08:50)
[2022-07-01] MEDS: cefEPime HCl 2 GM in 0.9 % Sodium Chloride 50 ML IV (08:50)
[2022-07-01] MEDS: Buprenorphine/Naloxone 8/2 mg FILM 1 FILM BUCCAL ×2 (08:51→20:27)
[2022-07-01] MEDS: lisinopriL 40 MG TABLET PO ×2 (08:52→20:27)
[2022-07-01] MEDS: Metoprolol Succinate ER 25 MG TAB.ER.24H PO (08:52)
[2022-07-01] MEDS: Multivitamin TABLET 1 TAB PO (08:52)
[2022-07-01] MEDS: Loratadine 10 MG TABLET PO (08:52)
[2022-07-01] MEDS: 0.9 % Sodium Chloride Flush 3 ML SYRINGE IVFLUSH ×3 (09:17→20:27)
--- NOTE | 2022-07-01 09:19 | MHC.CM.PN ---
Patient lives alone in an apartment and uses a w/c and walker to assist with mobility. home self care is the goal and CM has initiated and will follow for dc planning. Patient has received Covid vax X4 and PCP is Dr. Moe. Patient/family is unsure where Patient obtains his Suboxone.
[2022-07-01] MEDS: ondansetron HCL 4 MG/2 ML VIAL IVPUSH (10:48)
[2022-07-01] MEDS: vancomycin HCL 1,000 MG in 0.9 % Sodium Chloride 250 ML 270 MG IV (11:25)
--- NOTE | 2022-07-01 11:58 | HO.PM.IMPN ---
Subjective Subjective Date of Service: 07/01/22 Interval History: No significant nursing events overnight. Patient with continued left ankle swelling and pain. Constitutional Constitutional: Reports no additional constitutional complaints Cardiovascular Cardiovascular: Reports no additional cardiovascular complaints Respiratory Respiratory: Reports no additional respiratory complaints Gastrointestinal Gastrointestinal: Reports no additional gastrointestinal complaints Musculoskeletal Musculoskeletal: Reports arthralgias, Reports joint swelling and Reports stiffness Physical Exam Vital Signs: Vital Signs: Last Vital Signs Temp 98.9 F 07/01/22 08:39 Pulse 81 07/01/22 08:39 Resp 20 07/01/22 08:39 BP 156/75 H 07/01/22 08:39 Pulse Ox 97 07/01/22 08:39 O2 Del Method 07/01/22 08:39 BMI result Body Mass Index 31.3 Elderly male lying in bed in no distress Neck supple, no JVD Regular rate and rhythm, S1-S2 heard Regular breath sounds bilaterally, no wheezing or crackles appreciated Abdomen soft nontender, no guarding, no rigidity Patient is awake, alert and oriented to self, place, time and person ; no focal motor deficit Extremity: left ankle with swelling, pain, warmth and redness Psych: Normal mood Objective Data Active Medications Acetaminophen (Acetaminophen 325 Mg Tablet) 650 mg PO Q6H PRN PRN Reason: Pain, Mild (Pain Scale 1-3) Amlodipine Besylate (Amlodipine Besylate 10 Mg Tablet) 10 mg PO BEDTIME [facility]; Protocol Last Admin: 06/30/22 20:06 Dose: 10 mg Documented By: RADU Artificial Tears (Artificial Tears 15 Ml Drops) 1 drop EYE-BOTH QID [facility] Last Admin: 07/01/22 11:27 Dose: Not Given Documented By: DELIA Non-Admin Reason: See Note Atorvastatin Calcium (Atorvastatin Calcium 40 Mg Tablet) 40 mg PO BEDTIME [facility] Last Admin: 06/30/22 20:06 Dose: 40 mg Documented By: RADU Buprenorphine/Naloxone (Buprenorphine/Naloxone 8/2 Mg Film) 1 film BUCCAL BID [facility] Last Admin: 07/01/22 08:51 Dose: 1 film Documented By: DELIA Dextrose (Dextrose 50 % 25 Gm/50 Ml Syringe) 25 gm IVPUSH Q15M PRN; Protocol PRN Reason: per Hypoglycemia Standing Ord. Dorzolamide/Timolol (Dorzolamide/Timolo 2.23%/0.68% 10 Ml Drbtl) 1 drop EYE-BOTH BID [facility] Last Admin: 06/30/22 20:07 Dose: 1 drop Documented By: RADU Enoxaparin Sodium (Enoxaparin Sodium 40 Mg/0.4 Ml Syringe) 40 mg SUBCUT Q24H [facility] Last Admin: 06/30/22 16:25 Dose: 40 mg Documented By: RADU Ferrous Sulfate (Ferrous Sulfate 300 Mg/5 Ml Liquid) 150 mg PO DAILY [facility] Last Admin: 07/01/22 08:50 Dose: 150 mg Documented By: DELIA Glucose (Glucose Gel 15 Gm Gel..Gram.) 15 gm PO Q15M PRN; Protocol PRN Reason: per Hypoglycemia Standing Ord. Cefepime HCl 2 gm/ Sodium (Chloride) 50 mls @ 100 mls/hr IV Q8H [facility] Last Admin: 07/01/22 08:50 Dose: 100 mls/hr Documented By: DELIA Vancomycin HCl 1,000 mg/ (Sodium Chloride) 270 mls @ 270 mls/hr IV Q12H [facility] Last Admin: 07/01/22 11:25 Dose: 270 mls/hr Documented By: DELIA Insulin Glargine (Insulin Glargine,Hum.Rec.Anlog 100 Unit/Ml 10 Ml Vial) 59 unit SUBCUT BEDTIME [facility] Last Admin: 06/30/22 20:06 Dose: 59 unit Documented By: RADU Insulin Human Lispro (Insulin Lispro 100 Unit/Ml 3 Ml Vial) 0 unit SUBCUT QIDACHS [facility]; Protocol Stop: 07/01/22 14:39 Last Admin: 07/01/22 09:18 Dose: Not Given Documented By: DELIA Non-Admin Reason: See Note Latanoprost (Latanoprost 0.005 % Ophth Yari 2.5 Ml Drops) 1 drop EYE-LEFT BEDTIME [facility] Last Admin: 06/30/22 21:11 Dose: 1 drop Documented By: ANDREZ Lisinopril (Lisinopril 40 Mg Tablet) 40 mg PO BID [facility]; Protocol Last Admin: 07/01/22 08:52 Dose: 40 mg Documented By: DELIA Loratadine (Loratadine 10 Mg Tablet) 10 mg PO DAILY [facility] Last Admin: 07/01/22 08:52 Dose: 10 mg Documented By: DELIA Melatonin (Melatonin 3 Mg Tablet) 6 mg PO BEDTIME PRN PRN Reason: Insomnia Metoprolol Succinate (Metoprolol Succinate Er 25 Mg Tab.Er.24h) 25 mg PO DAILY [facility]; Protocol Last Admin: 07/01/22 08:52 Dose: 25 mg Documented By: DELIA Multivitamins/Vitamin C (Multivitamin Tablet) 1 tab PO DAILY [facility] Last Admin: 07/01/22 08:52 Dose: 1 tab Documented By: DELIA Olanzapine (Olanzapine 5 Mg Tablet) 5 mg PO BEDTIME [facility] Last Admin: 06/30/22 20:06 Dose: 5 mg Documented By: RADU Omeprazole (Omeprazole 20 Mg Capsule.Dr) 20 mg PO DAILY@0630 [facility] Last Admin: 07/01/22 05:40 Dose: 20 mg Documented By: CONRAD-ANICL Ondansetron HCl (Ondansetron Hcl 4 Mg/2 Ml Vial) 4 mg IVPUSH Q8H PRN PRN Reason: Nausea and Vomiting Last Admin: 07/01/22 10:48 Dose: 4 mg Documented By: DELIA Oxybutynin Chloride (Oxybutynin Chloride Er 5 Mg Tab.Er.24) 5 mg PO DAILY [facility] Last Admin: 07/01/22 08:53 Dose: 5 mg Documented By: DELIA Pharmacy Consult (Consult Rx Perform Med Rec) 1 each MISCELLANE ONCE PRN PRN Reason: Consult order Pharmacy Consult (Consult Rx Vancomycin Dosing) 1 each MISCELLANE DAILY PRN PRN Reason: Consult order Sodium Chloride (0.9 % Sodium Chloride Flush 3 Ml Syringe) 3 ml IVFLUSH QSHIFT [facility] Last Admin: 07/01/22 09:17 Dose: 3 ml Documented By: DELIA Tamsulosin HCl (Tamsulosin Hcl 0.4 Mg Capsule) 0.4 mg PO BEDTIME [facility] Last Admin: 06/30/22 20:06 Dose: 0.4 mg Documented By: RADU Trazodone HCl (Trazodone Hcl 100 Mg Tablet) 300 mg PO BEDTIME [facility] Last Admin: 06/30/22 20:06 Dose: 300 mg Documented By: RADU Labs CBC & Chem 7: 07/01/22 05:51 07/01/22 05:51 Labs: Laboratory Results - last 24 hr 06/30/22 06/30/22 06/30/22 15:02 16:56 22:09 MCV MCH MCHC RDW Plt Count MPV Immature Gran % (Auto) Neut % (Auto) Lymph % (Auto) [place] % (Auto) Eos % (Auto) Baso % (Auto) Lymph # (Auto) [place] # (Auto) Eos # (Auto) Baso # (Auto) Abs Immat Gran (auto) Absolute Neuts (auto) Absolute Nucleated RBC Nucleated RBC % (auto) Anion Gap Estim Creat Clear Calc Estimated GFR POC Glucose 161 H 195 H Random Glucose Estimat Average Glucose 194 Hemoglobin A1c % 8.4 Calcium 07/01/22 07/01/22 07/01/22 05:51 05:51 05:51 MCV 82.6 MCH 25.9 L MCHC 31.3 RDW 13.9 Plt Count 581 H MPV 8.7 L Immature Gran % (Auto) 0.9 H Neut % (Auto) 74.1 H Lymph % (Auto) 16.1 L [place] % (Auto) 7.4 Eos % (Auto) 1.1 Baso % (Auto) 0.4 Lymph # (Auto) 1.8 [place] # (Auto) 0.8 Eos # (Auto) 0.1 Baso # (Auto) 0.0 Abs Immat Gran (auto) 0.10 H Absolute Neuts (auto) 8.5 H Absolute Nucleated RBC 0.000 Nucleated RBC % (auto) 0.0 Anion Gap 18 Estim Creat Clear Calc 112.1 105.4 Estimated GFR > 60 > 60 POC Glucose Random Glucose 159 H D Estimat Average Glucose Hemoglobin A1c % Calcium 9.5 D 07/01/22 07:17 MCV MCH MCHC RDW Plt Count MPV Immature Gran % (Auto) Neut % (Auto) Lymph % (Auto) [place] % (Auto) Eos % (Auto) Baso % (Auto) Lymph # (Auto) [place] # (Auto) Eos # (Auto) Baso # (Auto) Abs Immat Gran (auto) Absolute Neuts (auto) Absolute Nucleated RBC Nucleated RBC % (auto) Anion Gap Estim Creat Clear Calc Estimated GFR POC Glucose 164 H Random Glucose Estimat Average Glucose Hemoglobin A1c % Calcium Microbiology Microbiology Results: Microbiology 06/30/22 08:28 Blood Culture - Preliminary Blood - Venous No growth after 24 hours. 06/30/22 07:56 Blood Culture - Preliminary Blood - Venous No growth after 24 hours. Assessment and Plan (1) Left ankle swelling: Status: Acute (2) Hypertension: Status: Acute (3) Opioid dependence: Status: Acute (4) COPD (chronic obstructive pulmonary disease): Status: Acute (5) Diabetes mellitus: Status: Acute (6) BPH w urinary obs/LUTS: Status: Acute Plan This is a 71-year-old male with a pertinent history of insulin-dependent diabetes, essential hypertension, opioid use disorder, mixed hyperlipidemia, mood disorder, BPH, prior bimalleolar fracture presents to the emergency department for evaluation of left ankle swelling and pain. #. Left ankle swelling -Discussed with ortho, recommend to stop Abx for high culture yield. Reasonable as patient is not septic. Removal of hardware on Wednesday due to concerns for underlying abscess. Also noted elevated ESR and CRP. #. Lactic acidosis -Type A, resolved with IV fluid resuscitation #. Hypomagnesemia -repleted #. Opioid use disorder -continue buprenorphine and naloxone #. Mood disorder -continue trazodone and Zyprexa #. Essential hypertension -continue home p.o. medications #. BPH -on Flomax and oxybutynin #. Insulin-dependent type 2 diabetes mellitus with hyperglycemia -hold p.o. medications. Continue home basal regimen, add Accu-Cheks with sliding scale insulin #. Chronic normocytic anemia -Hb above transfusion threshold DVT prophylaxis: Lovenox 40 mg daily Diabetic diet Full code Admit as inpatient and will require continued hospitalization due to hardware removal sx by ortho on wednesday Quality Stroke Does the patient have a stroke diagnosis?: No VTE Prior VTE?: No VTE Risk Level:: Medical - moderate - high VTE Device Contraindication: Treatment Not Indicated VTE Drug Contraindication: N/A - Med Ordered
--- NOTE | 2022-07-01 12:09 | PC.NURSE ---
alert, evaluated hospitalist, ortho, pt and this RN this morning, ate breakfast, had some nausea after and got zofran with good effect, iv r ac replaced ?infiltrated, 22 l forearm placed, skin wpd, seems to have very low pain tolerance with placing tourniquet, iv placement, iv flushes, pleasant and cooperative w nad most of the time and has slept on/off
[2022-07-01 12:37] VITALS: BP 153/85; PULSE 80; RESP 18; TEMP 36.9; O2SAT 96
[2022-07-01 12:38] LABS: Glucose, Whole Blood 270 mg/dL (60-115)
[2022-07-01 12:44] VITALS: BMI 29.5
[2022-07-01] MEDS: Insulin Lispro 100 UNIT/ML 3 ML VIAL SUBCUT ×3 (13:10→20:44)
[2022-07-01] MEDS: Enoxaparin Sodium 40 MG/0.4 ML SYRINGE SUBCUT (15:17)
[2022-07-01 15:50] LABS: Glucose, Whole Blood 265 mg/dL (60-115)
[2022-07-01 16:00] VITALS: BP 147/67; PULSE 62; RESP 18; TEMP 36.9; O2SAT 97
--- NOTE | 2022-07-01 16:51 | P.CNID_ITS ---
History of Present Illness Data of Consult Service Date: 07/01/22 Requesting physician: Chantal Borjas Primary Care Provider: Jax Moe MD [facility] Reason for consult: left ankle swelling Patient says he fell and had swelling left ankle. I had seen him before. He has abscess area now improved Review of Systems Review of Systems: Yes all other systems are reviewed and are negative [facility] Past Medical History Medical History Anxiety CAD (coronary artery disease) Chronic constipation COPD (chronic obstructive pulmonary disease) Diabetes mellitus Genital herpes GERD (gastroesophageal reflux disease) History of adenomatous polyp of colon Hypertension Opioid dependence on agonist therapy JAUN (obstructive sleep apnea) Pancreatic abnormality Prepatellar bursitis, left knee Family History Family History Mother No problems noted. Father Liver cancer Surgical History Surgical History History of ankle surgery Social History Social History Household Members: Spouse Housing: Apartment Do you presently have visiting nurse or other home services: Yes Alcohol intake: former Patient Tobacco Use Status: Current everyday Tobacco user Tobacco use type: Cigarette Cigarettes Per Day: 5 e-Cigarette/Vaping Use: Currently Using Second Hand Smoke Exposure: No Substance Use Type: Heroin Advance Directives Date on File: 01/28/22 service: No Current occupational status: retired and disabled Current occupation: right handed Meds Allergies Allergy/AdvReac Type Severity Reaction Status Date / Time No Known Allergies Allergy Verified 05/01/22 13:25 Active Medications: Current Medications Acetaminophen (Acetaminophen 325 Mg Tablet) 650 mg PO Q6H PRN PRN Reason: Pain, Mild (Pain Scale 1-3) Amlodipine Besylate (Amlodipine Besylate 10 Mg Tablet) 10 mg PO BEDTIME [facility]; Protocol Last Admin: 06/30/22 20:06 Dose: 10 mg Artificial Tears (Artificial Tears 15 Ml Drops) 1 drop EYE-BOTH QID [facility] Last Admin: 07/01/22 15:14 Dose: Not Given Atorvastatin Calcium (Atorvastatin Calcium 40 Mg Tablet) 40 mg PO BEDTIME [facility] Last Admin: 06/30/22 20:06 Dose: 40 mg Buprenorphine/Naloxone (Buprenorphine/Naloxone 8/2 Mg Film) 1 film BUCCAL BID [facility] Last Admin: 07/01/22 08:51 Dose: 1 film Dextrose (Dextrose 50 % 25 Gm/50 Ml Syringe) 25 gm IVPUSH Q15M PRN; Protocol PRN Reason: per Hypoglycemia Standing Ord. Dextrose (Dextrose 50 % 25 Gm/50 Ml Syringe) 25 gm IVPUSH Q15M PRN; Protocol PRN Reason: per Hypoglycemia Standing Ord. Dorzolamide/Timolol (Dorzolamide/Timolo 2.23%/0.68% 10 Ml Drbtl) 1 drop EYE- BOTH BID [facility] Last Admin: 07/01/22 12:16 Dose: Not Given Enoxaparin Sodium (Enoxaparin Sodium 40 Mg/0.4 Ml Syringe) 40 mg SUBCUT Q24H [facility] Last Admin: 07/01/22 15:17 Dose: 40 mg Ferrous Sulfate (Ferrous Sulfate 300 Mg/5 Ml Liquid) 150 mg PO DAILY [facility] Last Admin: 07/01/22 08:50 Dose: 150 mg Glucose (Glucose Gel 15 Gm Gel..Gram.) 15 gm PO Q15M PRN; Protocol PRN Reason: per Hypoglycemia Standing Ord. Glucose (Glucose Gel 15 Gm Gel..Gram.) 15 gm PO Q15M PRN; Protocol PRN Reason: per Hypoglycemia Standing Ord. Insulin Glargine (Insulin Glargine,Hum.Rec.Anlog 100 Unit/Ml 10 Ml Vial) 59 unit SUBCUT BEDTIME [facility] Last Admin: 06/30/22 20:06 Dose: 59 unit Insulin Human Lispro (Insulin Lispro 100 Unit/Ml 3 Ml Vial) 0 unit SUBCUT QIDACHS [facility]; Protocol Stop: 07/02/22 15:16 Last Admin: 07/01/22 16:26 Dose: 6 unit Latanoprost (Latanoprost 0.005 % Ophth Yari 2.5 Ml Drops) 1 drop EYE-LEFT BEDTIME [facility] Last Admin: 06/30/22 21:11 Dose: 1 drop Lisinopril (Lisinopril 40 Mg Tablet) 40 mg PO BID [facility]; Protocol Last Admin: 07/01/22 08:52 Dose: 40 mg Loratadine (Loratadine 10 Mg Tablet) 10 mg PO DAILY [facility] Last Admin: 07/01/22 08:52 Dose: 10 mg Melatonin (Melatonin 3 Mg Tablet) 6 mg PO BEDTIME PRN PRN Reason: Insomnia Metoprolol Succinate (Metoprolol Succinate Er 25 Mg Tab.Er.24h) 25 mg PO DAILY [facility]; Protocol Last Admin: 07/01/22 08:52 Dose: 25 mg Multivitamins/Vitamin C (Multivitamin Tablet) 1 tab PO DAILY [facility] Last Admin: 07/01/22 08:52 Dose: 1 tab Olanzapine (Olanzapine 5 Mg Tablet) 5 mg PO BEDTIME [facility] Last Admin: 06/30/22 20:06 Dose: 5 mg Omeprazole (Omeprazole 20 Mg Capsule.Dr) 20 mg PO DAILY@0630 [facility] Last Admin: 07/01/22 05:40 Dose: 20 mg Ondansetron HCl (Ondansetron Hcl 4 Mg/2 Ml Vial) 4 mg IVPUSH Q8H PRN PRN Reason: Nausea and Vomiting Last Admin: 07/01/22 10:48 Dose: 4 mg Oxybutynin Chloride (Oxybutynin Chloride Er 5 Mg Tab.Er.24) 5 mg PO DAILY [facility] Last Admin: 07/01/22 08:53 Dose: 5 mg Pharmacy Consult (Consult Rx Perform Med Rec) 1 each MISCELLANE ONCE PRN PRN Reason: Consult order Pharmacy Consult (Consult Rx Vancomycin Dosing) 1 each MISCELLANE DAILY PRN PRN Reason: Consult order Sodium Chloride (0.9 % Sodium Chloride Flush 3 Ml Syringe) 3 ml IVFLUSH QSHIFT [facility] Last Admin: 07/01/22 15:17 Dose: 3 ml Tamsulosin HCl (Tamsulosin Hcl 0.4 Mg Capsule) 0.4 mg PO BEDTIME [facility] Last Admin: 06/30/22 20:06 Dose: 0.4 mg Trazodone HCl (Trazodone Hcl 100 Mg Tablet) 300 mg PO BEDTIME [facility] Last Admin: 06/30/22 20:06 Dose: 300 mg Home Medications Medication Instructions Recorded Confirmed Last Taken Type lisinopril 40 mg tablet 40 mg PO BID 06/06/20 06/30/22 06/30/22 History metoprolol succinate 25 mg 25 mg PO DAILY 06/06/20 06/30/22 06/30/22 History tablet,extended release 24 hr atorvastatin 40 mg tablet 40 mg PO BEDTIME 03/26/21 06/30/22 06/29/22 History dorzolamide 22.3 mg-timolol 6.8 1 drp ophthalmic (eye) BID 03/26/21 06/30/22 06/29/22 History mg/mL eye drops glipizide 5 mg tablet, extended 5 mg PO DAILY 03/26/21 06/30/22 06/30/22 History release 24 hr insulin detemir U-100 100 unit/mL 84 unit subcut BEDTIME 03/26/21 06/30/22 06/29/22 History subcutaneous solution (Levemir U-100 Insulin) latanoprost 0.005 % eye drops 1 drp ophthalmic-Left BEDTIME 03/26/21 06/30/22 History metformin 1,000 mg tablet 1,000 mg PO BID 03/26/21 06/30/22 06/30/22 History multivitamin-ferrous 1 tab PO DAILY 03/26/21 06/30/22 06/30/22 History fumarate-folic acid 18 mg-400 mcg tablet (Certavite-Antioxidant) omega-3 fatty acids-fish oil 340 1 cap PO TID 03/26/21 06/30/22 06/30/22 History mg-1,000 mg capsule (Fish Oil) peg [id number] 1 1 drp ophthalmic (eye) QID 03/26/21 06/30/22 06/29/22 History %-0.2 %-0.2 % eye drops (Dry Eye Relief) trazodone 150 mg tablet 300 mg PO BEDTIME 03/26/21 06/30/22 06/29/22 History loratadine 10 mg tablet 10 mg PO DAILY 09/11/21 06/30/22 06/30/22 History amlodipine 10 mg tablet 1 tab PO BEDTIME 06/30/22 06/30/22 06/29/22 History olanzapine 5 mg tablet 1 tab PO BEDTIME 06/30/22 06/30/22 06/29/22 History oxybutynin chloride 5 mg 1 tab PO DAILY 06/30/22 06/30/22 06/30/22 History tablet,extended release 24 hr Physical Exam Vital Signs: Vital Signs: Last Vital Signs Temp 98.4 F 07/01/22 16:00 Pulse 62 07/01/22 16:00 Resp 18 07/01/22 16:00 BP 147/67 H 07/01/22 16:00 Pulse Ox 97 07/01/22 16:00 O2 Del Method 07/01/22 16:00 BMI result Body Mass Index 29.5 Const: General: cooperative HEENT: Head: Yes normal to inspection Face and sinus: Yes normal facial exam Mouth: Normal oral and palatal mucosa present Teeth and gingiva: dentition normal Eyes: General: appearance normal, both eyes and all related structures Pupils: Equal, round and reactive pupils present Resp: Effort & Inspection: normal respiratory effort Cardio: Rate: regular rate Rhythm: regular rhythm GI: Palpation (GI): Soft to palpation and nontender : General: Yes no CVA tenderness Back/Spine/Pelvis: Back: no CVA tenderness Skin: General skin exam: no rashes or lesions noted Neuro: General: moves all extremities Cranial nerves: Yes Equal, round and reactive pupils present Extrem: Other: swelling left ankle,only mild cellulitis resolving Psych: Appearance: grossly normal Results Labs CBC & Chem 7: 07/01/22 05:51 07/01/22 05:51 Labs: Short CBC 07/01/22 Range/Units 05:51 WBC 11.4 H (4.8-10.8) X10*3/uL Hgb 9.8 L (14.0-18.0) g/dl Hct 31.3 L (42.0-52.0) % Plt Count 581 H (160-400) X10*3/uL BMP 07/01/22 07/01/22 05:51 05:51 Sodium 141 Potassium 4.1 Chloride 97 Carbon Dioxide 30 H BUN 7 L D Creatinine 0.63 0.67 Calcium 9.5 D Microbiology Microbiology Results: Microbiology 06/30/22 08:28 Blood - Venous Blood Culture - Preliminary No growth after 24 hours. 06/30/22 07:56 Blood - Venous Blood Culture - Preliminary No growth after 24 hours. Assessment and Plan (1) Left ankle swelling: Status: Acute Orthopedics planning to culture and remove hardware apparently (2) Cellulitis and abscess of left leg: Status: Acute Plan Agree hold antibiotics for now. Culture Wednesday area.
[2022-07-01] MEDS: Acetaminophen 325 MG TABLET 650 MG PO (17:46)
[2022-07-01] MEDS: Artificial Tears 15 ML DROPS 1 DROP EYE-BOTH (18:10)
[2022-07-01 20:00] VITALS: BP 129/67; PULSE 67; RESP 20; TEMP 37.2; O2SAT 98
[2022-07-01 20:04] LABS: Vancomycin Trough 7.2 mcg/mL (10.0-20.0)
[2022-07-01] MEDS: Atorvastatin Calcium 40 MG TABLET PO (20:26)
[2022-07-01] MEDS: OLANZapine 5 MG TABLET PO (20:27)
[2022-07-01] MEDS: traZODone HCL 100 MG TABLET 300 MG PO (20:27)
[2022-07-01] MEDS: amLODIPine Besylate 10 MG TABLET PO (20:27)
[2022-07-01] MEDS: Tamsulosin HCL 0.4 MG CAPSULE PO (20:27)
[2022-07-01 20:41] LABS: Glucose, Whole Blood 258 mg/dL (60-115)
[2022-07-01] MEDS: Insulin Glargine,Hum.rec.anlog 100 UNIT/ML 10 ML VIAL 59 UNIT SUBCUT (20:44)
[2022-07-01] MEDS: oxyCODONE HCl Immed Release 5 MG TABLET PO (21:57)
[2022-07-02] VITALS (7 sets, daily range): BP systolic 160–180; BP diastolic 78–92; PULSE 75–87; RESP 18; TEMP 36.3–37.1; O2SAT 93–97
[2022-07-02] MEDS: oxyCODONE HCl Immed Release 5 MG TABLET PO ×3 (03:46→15:13)
[2022-07-02] MEDS: Omeprazole 20 MG CAPSULE.DR PO (05:51)
[2022-07-02 06:42] LABS: MANUAL DIFF FLAG NO
[2022-07-02 06:46] LABS: Basophils Percent Auto 0.3 % (0-2); Eosinophils Absolute Auto 0.1 X10*3/uL (0.0-0.4); Hematocrit 30.8 % (42.0-52.0); Hemoglobin 9.9 g/dl (14.0-18.0); Imm Gran Abs Auto 0.09 X10*3/uL (0.00-0.03); Imm Gran Pct Auto 0.8 % (0.0-0.4); Lymphocytes Absolute Auto 1.8 X10*3/uL (1.2-4.9); Lymphocytes Percent Auto 16.3 % (20-40); Mean Corpuscular HGB Conc 32.1 g/dl (31.0-36.0); Mean Corpuscular Hemoglobin 26.1 pg (27.0-33.0); Mean Corpuscular Volume 81.1 fL (80.0-98.0); Mean Platelet Volume 8.8 fL (9.4-12.4); Monocytes Absolute Auto 0.7 X10*3/uL (0.1-1.2); Monocytes Percent Auto 6.8 % (2-11); Neutrophils Absolute Auto 8.1 x10*3/uL (2.0-8.3); Neutrophils Percent Auto 74.8 % (45-73); Platelet Count 593 X10*3/uL (160-400); Red Cell Distribution Width 13.7 % (11.0-16.0); White Blood Count 10.8 X10*3/uL (4.8-10.8)
[2022-07-02 07:06] LABS: Creatinine Clr Calc Pharmacy 105.7; Estimated Glomerular Filt Rate > 60
[2022-07-02 07:09] LABS: Anion Gap 17 (12-20); Blood Urea Nitrogen 10 mg/dL (9-16); Calcium 8.9 mg/dL (8.4-10.2); Carbon Dioxide 26 mmol/L (22-29); Chloride 97 mmol/L (96-108); Creatinine Clr Calc Pharmacy 105.7; Estimated Glomerular Filt Rate > 60; Glucose Random 204 mg/dL (60-115); Potassium 3.8 mmol/L (3.3-5.1); Sodium 136 mmol/L (135-145)
[2022-07-02] MEDS: Insulin Lispro 100 UNIT/ML 3 ML VIAL SUBCUT ×4 (08:24→21:03)
[2022-07-02] MEDS: Multivitamin TABLET 1 TAB PO (08:24)
[2022-07-02] MEDS: Ferrous Sulfate 300 MG/5 ML LIQUID 150 MG PO (08:24)
[2022-07-02] MEDS: Metoprolol Succinate ER 25 MG TAB.ER.24H PO (08:24)
[2022-07-02] MEDS: lisinopriL 40 MG TABLET PO ×2 (08:25→21:03)
[2022-07-02] MEDS: Loratadine 10 MG TABLET PO (08:25)
[2022-07-02] MEDS: Buprenorphine/Naloxone 8/2 mg FILM 1 FILM BUCCAL ×2 (08:25→21:03)
[2022-07-02] MEDS: 0.9 % Sodium Chloride Flush 3 ML SYRINGE IVFLUSH ×2 (08:29→15:15)
[2022-07-02] MEDS: Artificial Tears 15 ML DROPS 1 DROP EYE-BOTH ×4 (08:29→21:04)
[2022-07-02] MEDS: ondansetron HCL 4 MG/2 ML VIAL IVPUSH ×2 (08:39→15:14)
--- NOTE | 2022-07-02 11:00 | P.PNIM_ITS ---
Subjective Subjective Date of Service: 07/02/22 Interval History: No significant nursing events overnight. Patient with continued and persistent left ankle swelling and pain. Constitutional Constitutional: Reports no additional constitutional complaints Cardiovascular Cardiovascular: Reports no additional cardiovascular complaints Respiratory Respiratory: Reports no additional respiratory complaints Gastrointestinal Gastrointestinal: Reports no additional gastrointestinal complaints Musculoskeletal Musculoskeletal: Reports arthralgias, Reports joint swelling and Reports stiffness Physical Exam Vital Signs: Vital Signs: Last Vital Signs Temp 98.1 F 07/02/22 07:56 Pulse 75 07/02/22 07:56 Resp 18 07/02/22 07:56 BP 180/84 H 07/02/22 07:56 Pulse Ox 95 07/02/22 07:56 O2 Del Method 07/02/22 07:56 BMI result Body Mass Index 29.5 Elderly male lying in bed in no distress Neck supple, no JVD Regular rate and rhythm, S1-S2 heard Regular breath sounds bilaterally, no wheezing or crackles appreciated Abdomen soft nontender, no guarding, no rigidity Patient is awake, alert and oriented to self, place, time and person ; no focal motor deficit Extremity: left ankle with swelling, pain, warmth and redness Psych: Normal mood Objective Data Active Medications Acetaminophen (Acetaminophen 325 Mg Tablet) 650 mg PO Q6H PRN PRN Reason: Pain, Mild (Pain Scale 1-3) Last Admin: 07/01/22 17:46 Dose: 650 mg Documented By: ERA Amlodipine Besylate (Amlodipine Besylate 10 Mg Tablet) 10 mg PO BEDTIME [facility]; Protocol Last Admin: 07/01/22 20:27 Dose: 10 mg Documented By: CHERYL Artificial Tears (Artificial Tears 15 Ml Drops) 1 drop EYE-BOTH QID [facility] Last Admin: 07/02/22 08:29 Dose: 1 drop Documented By: ERA Atorvastatin Calcium (Atorvastatin Calcium 40 Mg Tablet) 40 mg PO BEDTIME [facility] Last Admin: 07/01/22 20:26 Dose: 40 mg Documented By: CHERYL Buprenorphine/Naloxone (Buprenorphine/Naloxone 8/2 Mg Film) 1 film BUCCAL BID [facility] Last Admin: 07/02/22 08:25 Dose: 1 film Documented By: ERA Dextrose (Dextrose 50 % 25 Gm/50 Ml Syringe) 25 gm IVPUSH Q15M PRN; Protocol PRN Reason: per Hypoglycemia Standing Ord. Dextrose (Dextrose 50 % 25 Gm/50 Ml Syringe) 25 gm IVPUSH Q15M PRN; Protocol PRN Reason: per Hypoglycemia Standing Ord. Dorzolamide/Timolol (Dorzolamide/Timolo 2.23%/0.68% 10 Ml Drbtl) 1 drop EYE- BOTH BID [facility] Last Admin: 07/02/22 09:39 Dose: Not Given Documented By: ERA Non-Admin Reason: Med Not Available Enoxaparin Sodium (Enoxaparin Sodium 40 Mg/0.4 Ml Syringe) 40 mg SUBCUT Q24H [facility] Last Admin: 07/01/22 15:17 Dose: 40 mg Documented By: ERA Ferrous Sulfate (Ferrous Sulfate 300 Mg/5 Ml Liquid) 150 mg PO DAILY [facility] Last Admin: 07/02/22 08:24 Dose: 150 mg Documented By: ERA Glucose (Glucose Gel 15 Gm Gel..Gram.) 15 gm PO Q15M PRN; Protocol PRN Reason: per Hypoglycemia Standing Ord. Glucose (Glucose Gel 15 Gm Gel..Gram.) 15 gm PO Q15M PRN; Protocol PRN Reason: per Hypoglycemia Standing Ord. Insulin Glargine (Insulin Glargine,Hum.Rec.Anlog 100 Unit/Ml 10 Ml Vial) 59 unit SUBCUT BEDTIME [facility] Last Admin: 07/01/22 20:44 Dose: 59 unit Documented By: CHERYL Insulin Human Lispro (Insulin Lispro 100 Unit/Ml 3 Ml Vial) 0 unit SUBCUT QIDACHS [facility]; Protocol Stop: 07/02/22 15:16 Last Admin: 07/02/22 08:24 Dose: 6 unit Documented By: ERA Latanoprost (Latanoprost 0.005 % Ophth Yari 2.5 Ml Drops) 1 drop EYE-LEFT BEDTIME [facility] Last Admin: 07/01/22 20:39 Dose: Not Given Documented By: CHERYL Non-Admin Reason: Med Not Available Lisinopril (Lisinopril 40 Mg Tablet) 40 mg PO BID [facility]; Protocol Last Admin: 07/02/22 08:25 Dose: 40 mg Documented By: ERA Loratadine (Loratadine 10 Mg Tablet) 10 mg PO DAILY [facility] Last Admin: 07/02/22 08:25 Dose: 10 mg Documented By: ERA Melatonin (Melatonin 3 Mg Tablet) 6 mg PO BEDTIME PRN PRN Reason: Insomnia Metoprolol Succinate (Metoprolol Succinate Er 25 Mg Tab.Er.24h) 25 mg PO DAILY [facility]; Protocol Last Admin: 07/02/22 08:24 Dose: 25 mg Documented By: ERA Morphine Sulfate (Morphine Sulfate 2 Mg/Ml Cartridge) 2 mg IVPUSH Q2H PRN; Protocol PRN Reason: severe pain Multivitamins/Vitamin C (Multivitamin Tablet) 1 tab PO DAILY [facility] Last Admin: 07/02/22 08:24 Dose: 1 tab Documented By: ERA Olanzapine (Olanzapine 5 Mg Tablet) 5 mg PO BEDTIME [facility] Last Admin: 07/01/22 20:27 Dose: 5 mg Documented By: CHERYL Omeprazole (Omeprazole 20 Mg Capsule.Dr) 20 mg PO DAILY@0630 [facility] Last Admin: 07/02/22 05:51 Dose: 20 mg Documented By: CHERYL Ondansetron HCl (Ondansetron Hcl 4 Mg/2 Ml Vial) 4 mg IVPUSH Q8H PRN PRN Reason: Nausea and Vomiting Last Admin: 07/02/22 08:39 Dose: 4 mg Documented By: ERA Oxybutynin Chloride (Oxybutynin Chloride Er 5 Mg Tab.Er.24) 5 mg PO DAILY [facility] Last Admin: 07/02/22 08:25 Dose: 5 mg Documented By: ERA Oxycodone HCl (Oxycodone Hcl Immed Release 5 Mg Tablet) 5 mg PO Q4H PRN PRN Reason: moderate pain Last Admin: 07/02/22 08:24 Dose: 5 mg Documented By: ERA Pharmacy Consult (Consult Rx Perform Med Rec) 1 each MISCELLANE ONCE PRN PRN Reason: Consult order Pharmacy Consult (Consult Rx Vancomycin Dosing) 1 each MISCELLANE DAILY PRN PRN Reason: Consult order Sodium Chloride (0.9 % Sodium Chloride Flush 3 Ml Syringe) 3 ml IVFLUSH QSHIFT [facility] Last Admin: 07/02/22 08:29 Dose: 3 ml Documented By: ERA Tamsulosin HCl (Tamsulosin Hcl 0.4 Mg Capsule) 0.4 mg PO BEDTIME [facility] Last Admin: 07/01/22 20:27 Dose: 0.4 mg Documented By: CHERYL Trazodone HCl (Trazodone Hcl 100 Mg Tablet) 300 mg PO BEDTIME [facility] Last Admin: 07/01/22 20:27 Dose: 300 mg Documented By: CHERYL Labs CBC & Chem 7: 07/02/22 05:41 07/02/22 05:41 Labs: Laboratory Results - last 24 hr 07/01/22 07/01/22 07/01/22 12:32 15:37 19:05 MCV MCH MCHC RDW Plt Count MPV Immature Gran % (Auto) Neut % (Auto) Lymph % (Auto) [place] % (Auto) Eos % (Auto) Baso % (Auto) Lymph # (Auto) [place] # (Auto) Eos # (Auto) Baso # (Auto) Abs Immat Gran (auto) Absolute Neuts (auto) Absolute Nucleated RBC Nucleated RBC % (auto) Anion Gap Estim Creat Clear Calc Estimated GFR POC Glucose 270 H 265 H Random Glucose Calcium Vancomycin Trough 7.2 L 07/01/22 07/02/22 07/02/22 20:36 05:41 05:41 MCV 81.1 MCH 26.1 L MCHC 32.1 RDW 13.7 Plt Count 593 H MPV 8.8 L Immature Gran % (Auto) 0.8 H Neut % (Auto) 74.8 H Lymph % (Auto) 16.3 L [place] % (Auto) 6.8 Eos % (Auto) 1.0 Baso % (Auto) 0.3 Lymph # (Auto) 1.8 [place] # (Auto) 0.7 Eos # (Auto) 0.1 Baso # (Auto) 0.0 Abs Immat Gran (auto) 0.09 H Absolute Neuts (auto) 8.1 Absolute Nucleated RBC 0.000 Nucleated RBC % (auto) 0.0 Anion Gap 17 Estim Creat Clear Calc 105.7 Estimated GFR > 60 POC Glucose 258 H Random Glucose 204 H Calcium 8.9 D Vancomycin Trough 07/02/22 05:41 MCV MCH MCHC RDW Plt Count MPV Immature Gran % (Auto) Neut % (Auto) Lymph % (Auto) [place] % (Auto) Eos % (Auto) Baso % (Auto) Lymph # (Auto) [place] # (Auto) Eos # (Auto) Baso # (Auto) Abs Immat Gran (auto) Absolute Neuts (auto) Absolute Nucleated RBC Nucleated RBC % (auto) Anion Gap Estim Creat Clear Calc 105.7 Estimated GFR > 60 POC Glucose Random Glucose Calcium Vancomycin Trough Microbiology Microbiology Results: Microbiology 06/30/22 08:28 Blood Culture - Preliminary Blood - Venous No growth after 48 hours. 06/30/22 07:56 Blood Culture - Preliminary Blood - Venous No growth after 48 hours. Assessment and Plan (1) Left ankle swelling: Status: Acute (2) Hypertension: Status: Acute (3) Opioid dependence: Status: Acute (4) Diabetes mellitus: Status: Acute (5) BPH w urinary obs/LUTS: Status: Acute Plan This is a 71-year-old male with a pertinent history of insulin-dependent diabetes, essential hypertension, opioid use disorder, mixed hyperlipidemia, mood disorder, BPH, prior bimalleolar fracture presents to the emergency department for evaluation of left ankle swelling and pain. #. Left ankle swelling -Discussed with ortho, recommend to stop Abx for high culture yield. Reasonable as patient is not septic. Removal of hardware on Wednesday, 07/03 due to concerns for underlying abscess. Also noted elevated ESR and CRP. #. Lactic acidosis -Type A, resolved with IV fluid resuscitation #. Hypomagnesemia -repleted #. Opioid use disorder -continue buprenorphine and naloxone #. Mood disorder -continue trazodone and Zyprexa #. Essential hypertension -continue home p.o. medications #. BPH -on Flomax and oxybutynin #. Insulin-dependent type 2 diabetes mellitus with hyperglycemia -hold p.o. medications. Continue home basal regimen, add Accu-Cheks with sliding scale insulin #. Chronic normocytic anemia -Hb above transfusion threshold DVT prophylaxis: Hold anticoagulation for Sx Diabetic diet. npo after midnight Full code Admit as inpatient and will require continued hospitalization due to hardware removal sx by ortho on wednesday Quality Stroke Does the patient have a stroke diagnosis?: No VTE Prior VTE?: No VTE Risk Level:: Medical - moderate - high VTE Device Contraindication: Treatment Not Indicated VTE Drug Contraindication: N/A - Med Ordered
[2022-07-02 11:04] LABS: Glucose, Whole Blood 257 mg/dL (60-115)
[2022-07-02] MEDS: Morphine Sulfate 2 MG/ML CARTRIDGE IVPUSH ×3 (11:05→16:24)
[2022-07-02 11:50] LABS: Glucose, Whole Blood 270 mg/dL (60-115)
[2022-07-02] MEDS: Dorzolamide/Timolo 2.23%/0.68% 10 ML DRBTL 1 DROP EYE-BOTH ×2 (14:48→21:04)
[2022-07-02 16:02] LABS: Glucose, Whole Blood 264 mg/dL (60-115)
--- NOTE | 2022-07-02 16:45 | PC.NURSE ---
Pt has continued to throw up. He complains of Nausea, and abdominal pain. Zofran does not seem to help the N/V. MD Borjas made aware @ 12:20.
[2022-07-02 19:50] LABS: Glucose, Whole Blood 219 mg/dL (60-115)
[2022-07-02] MEDS: Insulin Glargine,Hum.rec.anlog 100 UNIT/ML 10 ML VIAL 59 UNIT SUBCUT (21:03)
[2022-07-02] MEDS: amLODIPine Besylate 10 MG TABLET PO (21:03)
[2022-07-02] MEDS: Tamsulosin HCL 0.4 MG CAPSULE PO (21:03)
[2022-07-02] MEDS: OLANZapine 5 MG TABLET PO (21:04)
[2022-07-02] MEDS: Atorvastatin Calcium 40 MG TABLET PO (21:04)
[2022-07-02] MEDS: traZODone HCL 100 MG TABLET 300 MG PO (21:04)
[2022-07-03] VITALS (17 sets, daily range): BP systolic 118–168; BP diastolic 62–95; PULSE 69–80; RESP 16–18; TEMP 36.2–36.9; O2SAT 95–100
[2022-07-03] MEDS: 0.9 % Sodium Chloride Flush 3 ML SYRINGE IVFLUSH ×4 (02:01→20:22)
[2022-07-03] MEDS: Omeprazole 20 MG CAPSULE.DR PO (05:07)
[2022-07-03 05:49] LABS: MANUAL DIFF FLAG NO
[2022-07-03 06:00] LABS: Basophils Percent Auto 0.2 % (0-2); Eosinophils Percent Auto 0.1 % (0-4); Hematocrit 36.3 % (42.0-52.0); Hemoglobin 11.6 g/dl (14.0-18.0); Imm Gran Abs Auto 0.31 X10*3/uL (0.00-0.03); Imm Gran Pct Auto 1.6 % (0.0-0.4); Lymphocytes Absolute Auto 2.8 X10*3/uL (1.2-4.9); Lymphocytes Percent Auto 15.1 % (20-40); Mean Corpuscular Hemoglobin 25.8 pg (27.0-33.0); Mean Corpuscular Volume 80.8 fL (80.0-98.0); Mean Platelet Volume 8.3 fL (9.4-12.4); Monocytes Absolute Auto 0.9 X10*3/uL (0.1-1.2); Monocytes Percent Auto 4.9 % (2-11); Neutrophils Absolute Auto 14.7 x10*3/uL (2.0-8.3); Neutrophils Percent Auto 78.1 % (45-73); Platelet Count 722 X10*3/uL (160-400); Red Blood Count 4.49 X10*6/uL (4.60-5.80); White Blood Count 18.8 X10*3/uL (4.8-10.8)
[2022-07-03 06:38] LABS: Creatinine Clr Calc Pharmacy 95.4; Estimated Glomerular Filt Rate > 60
[2022-07-03 06:45] LABS: Blood Urea Nitrogen 19 mg/dL (9-16); Creatinine Clr Calc Pharmacy 95.4; Estimated Glomerular Filt Rate > 60; Glucose Random 132 mg/dL (60-115)
[2022-07-03 06:52] LABS: Anion Gap 18 (12-20); Calcium 9.4 mg/dL (8.4-10.2); Carbon Dioxide 27 mmol/L (22-29); Chloride 93 mmol/L (96-108); Potassium 3.9 mmol/L (3.3-5.1); Sodium 134 mmol/L (135-145)
[2022-07-03 07:53] LABS: Glucose, Whole Blood 135 mg/dL (60-115)
[2022-07-03] MEDS: Buprenorphine/Naloxone 8/2 mg FILM 1 FILM BUCCAL ×2 (09:32→20:21)
[2022-07-03] MEDS: lisinopriL 40 MG TABLET PO ×2 (09:33→20:21)
[2022-07-03] MEDS: Dorzolamide/Timolo 2.23%/0.68% 10 ML DRBTL 1 DROP EYE-BOTH ×2 (09:34→17:32)
[2022-07-03] MEDS: Artificial Tears 15 ML DROPS 1 DROP EYE-BOTH ×3 (09:34→20:19)
--- NOTE | 2022-07-03 12:43 | P.CONAN_ITS ---
[facility] Active Problems Active Problems: All Active Problems (Updated 06/30/22 @ 15:04 by Chantal Borjas MD) Left ankle swelling (Acute) Cellulitis and abscess of left leg (Acute) Hypomagnesemia (Acute) Acidosis, lactic (Acute) Post-traumatic arthritis of left ankle (Acute) Priapism, drug-induced (Acute) History of fracture of left ankle (Acute) MSSA bacteremia (Acute) Hypertension (Acute) Opioid dependence (Acute) COPD (chronic obstructive pulmonary disease) (Acute) MSSA bacteremia (Acute) Hypokalemia (Acute) Gram-positive bacteremia (Acute) Positive blood culture (Acute) Rhabdomyolysis (Acute) Surgical site infection (Acute) Lethargy (Acute) Falls frequently (Acute) Opioid dependence on agonist therapy (Acute) Diabetes mellitus (Acute) Hypertension (Acute) Bimalleolar ankle fracture (Acute) COVID-19 (Acute) Hypomagnesemia (Acute) Acute respiratory failure with hypoxia (Acute) Elevated d-dimer (Acute) Syncope and collapse (Acute) TENA (acute kidney injury) (Acute) Vomiting (Acute) Rhabdomyolysis (Acute) Urinary urgency (Acute) BPH w urinary obs/LUTS (Acute) Anemia of chronic disease (Acute) Prepatellar bursitis, left knee (Acute) History of adenomatous polyp of colon (Acute) Chronic constipation (Chronic) GERD (gastroesophageal reflux disease) (Acute) Past Medical History Medical History Anxiety CAD (coronary artery disease) Chronic constipation COPD (chronic obstructive pulmonary disease) Diabetes mellitus Genital herpes GERD (gastroesophageal reflux disease) History of adenomatous polyp of colon Hypertension Opioid dependence on agonist therapy JAUN (obstructive sleep apnea) Pancreatic abnormality Prepatellar bursitis, left knee Family History Family History Mother No problems noted. Father Liver cancer Family history of problems with anesthesia: No Surgical History Surgical History History of ankle surgery History of Problems with Anesthesia: No Social History Social History Household Members: Spouse Housing: Apartment Do you presently have visiting nurse or other home services: Yes Alcohol intake: former Patient Tobacco Use Status: Current everyday Tobacco user Tobacco use type: Cigarette Cigarettes Per Day: 4 e-Cigarette/Vaping Use: Currently Using Second Hand Smoke Exposure: No Substance Use Type: Heroin Advance Directives Date on File: 01/28/22 service: No Current occupational status: retired and disabled Current occupation: right handed Meds Allergies Allergy/AdvReac Type Severity Reaction Status Date / Time No Known Allergies Allergy Verified 05/01/22 13:25 Active Medications: Current Medications Acetaminophen (Acetaminophen 325 Mg Tablet) 650 mg PO Q6H PRN PRN Reason: Pain, Mild (Pain Scale 1-3) Last Admin: 07/01/22 17:46 Dose: 650 mg Amlodipine Besylate (Amlodipine Besylate 10 Mg Tablet) 10 mg PO BEDTIME [facility]; Protocol Last Admin: 07/02/22 21:03 Dose: 10 mg Artificial Tears (Artificial Tears 15 Ml Drops) 1 drop EYE-BOTH QID [facility] Last Admin: 07/03/22 09:34 Dose: 1 drop Atorvastatin Calcium (Atorvastatin Calcium 40 Mg Tablet) 40 mg PO BEDTIME [facility] Last Admin: 07/02/22 21:04 Dose: 40 mg Buprenorphine/Naloxone (Buprenorphine/Naloxone 8/2 Mg Film) 1 film BUCCAL BID [facility] Last Admin: 07/03/22 09:32 Dose: 1 film Dextrose (Dextrose 50 % 25 Gm/50 Ml Syringe) 25 gm IVPUSH Q15M PRN; Protocol PRN Reason: per Hypoglycemia Standing Ord. Dextrose (Dextrose 50 % 25 Gm/50 Ml Syringe) 25 gm IVPUSH Q15M PRN; Protocol PRN Reason: per Hypoglycemia Standing Ord. Dextrose (Dextrose 50 % 25 Gm/50 Ml Syringe) 25 gm IVPUSH Q15M PRN; Protocol PRN Reason: per Hypoglycemia Standing Ord. Dorzolamide/Timolol (Dorzolamide/Timolo 2.23%/0.68% 10 Ml Drbtl) 1 drop EYE- BOTH BID [facility] Last Admin: 07/03/22 09:34 Dose: 1 drop Ferrous Sulfate (Ferrous Sulfate 300 Mg/5 Ml Liquid) 150 mg PO DAILY [facility] Last Admin: 07/03/22 09:34 Dose: Not Given Glucose (Glucose Gel 15 Gm Gel..Gram.) 15 gm PO Q15M PRN; Protocol PRN Reason: per Hypoglycemia Standing Ord. Glucose (Glucose Gel 15 Gm Gel..Gram.) 15 gm PO Q15M PRN; Protocol PRN Reason: per Hypoglycemia Standing Ord. Glucose (Glucose Gel 15 Gm Gel..Gram.) 15 gm PO Q15M PRN; Protocol PRN Reason: per Hypoglycemia Standing Ord. Insulin Glargine (Insulin Glargine,Hum.Rec.Anlog 100 Unit/Ml 10 Ml Vial) 59 unit SUBCUT BEDTIME [facility] Last Admin: 07/02/22 21:03 Dose: 59 unit Insulin Human Lispro (Insulin Lispro 100 Unit/Ml 3 Ml Vial) 0 unit SUBCUT QIDACHS [facility]; Protocol Stop: 07/03/22 16:24 Last Admin: 07/03/22 11:40 Dose: Not Given Latanoprost (Latanoprost 0.005 % Ophth Yari 2.5 Ml Drops) 1 drop EYE-LEFT BEDTIME [facility] Last Admin: 07/02/22 21:05 Dose: Not Given Lisinopril (Lisinopril 40 Mg Tablet) 40 mg PO BID [facility]; Protocol Last Admin: 07/03/22 09:33 Dose: 40 mg Loratadine (Loratadine 10 Mg Tablet) 10 mg PO DAILY [facility] Last Admin: 07/03/22 09:19 Dose: Not Given Melatonin (Melatonin 3 Mg Tablet) 6 mg PO BEDTIME PRN PRN Reason: Insomnia Metoprolol Succinate (Metoprolol Succinate Er 25 Mg Tab.Er.24h) 25 mg PO DAILY [facility]; Protocol Last Admin: 07/03/22 11:22 Dose: Not Given Morphine Sulfate (Morphine Sulfate 2 Mg/Ml Cartridge) 2 mg IVPUSH Q2H PRN; Protocol PRN Reason: severe pain Last Admin: 07/02/22 16:24 Dose: 2 mg Multivitamins/Vitamin C (Multivitamin Tablet) 1 tab PO DAILY [facility] Last Admin: 07/03/22 09:19 Dose: Not Given Olanzapine (Olanzapine 5 Mg Tablet) 5 mg PO BEDTIME [facility] Last Admin: 07/02/22 21:04 Dose: 5 mg Omeprazole (Omeprazole 20 Mg Capsule.Dr) 20 mg PO DAILY@0630 [facility] Last Admin: 07/03/22 05:07 Dose: 20 mg Ondansetron HCl (Ondansetron Hcl 4 Mg/2 Ml Vial) 4 mg IVPUSH Q8H PRN PRN Reason: Nausea and Vomiting Last Admin: 07/02/22 15:14 Dose: 4 mg Oxybutynin Chloride (Oxybutynin Chloride Er 5 Mg Tab.Er.24) 5 mg PO DAILY [facility] Last Admin: 07/03/22 09:19 Dose: Not Given Oxycodone HCl (Oxycodone Hcl Immed Release 5 Mg Tablet) 5 mg PO Q4H PRN PRN Reason: moderate pain Last Admin: 07/02/22 15:13 Dose: 5 mg Pharmacy Consult (Consult Rx Perform Med Rec) 1 each MISCELLANE ONCE PRN PRN Reason: Consult order Pharmacy Consult (Consult Rx Vancomycin Dosing) 1 each MISCELLANE DAILY PRN PRN Reason: Consult order Sodium Chloride (0.9 % Sodium Chloride Flush 3 Ml Syringe) 3 ml IVFLUSH QSHIFT [facility] Last Admin: 07/03/22 09:33 Dose: 3 ml Tamsulosin HCl (Tamsulosin Hcl 0.4 Mg Capsule) 0.4 mg PO BEDTIME [facility] Last Admin: 07/02/22 21:03 Dose: 0.4 mg Trazodone HCl (Trazodone Hcl 100 Mg Tablet) 300 mg PO BEDTIME [facility] Last Admin: 07/02/22 21:04 Dose: 300 mg Home Medications Medication Instructions Recorded Confirmed Last Taken Type lisinopril 40 mg tablet 40 mg PO BID 06/06/20 06/30/22 06/30/22 History metoprolol succinate 25 mg 25 mg PO DAILY 06/06/20 06/30/22 06/30/22 History tablet,extended release 24 hr atorvastatin 40 mg tablet 40 mg PO BEDTIME 03/26/21 06/30/22 06/29/22 History dorzolamide 22.3 mg-timolol 6.8 1 drp ophthalmic (eye) BID 03/26/21 06/30/22 06/29/22 History mg/mL eye drops glipizide 5 mg tablet, extended 5 mg PO DAILY 03/26/21 06/30/22 06/30/22 History release 24 hr insulin detemir U-100 100 unit/mL 84 unit subcut BEDTIME 03/26/21 06/30/22 06/29/22 History subcutaneous solution (Levemir U-100 Insulin) latanoprost 0.005 % eye drops 1 drp ophthalmic-Left BEDTIME 03/26/21 06/30/22 06/29/22 History metformin 1,000 mg tablet 1,000 mg PO BID 03/26/21 06/30/22 06/30/22 History multivitamin-ferrous 1 tab PO DAILY 03/26/21 06/30/22 06/30/22 History fumarate-folic acid 18 mg-400 mcg tablet (Certavite-Antioxidant) omega-3 fatty acids-fish oil 340 1 cap PO TID 03/26/21 06/30/22 06/30/22 History mg-1,000 mg capsule (Fish Oil) peg [id number] 1 1 drp ophthalmic (eye) QID 03/26/21 06/30/22 06/29/22 History %-0.2 %-0.2 % eye drops (Dry Eye Relief) trazodone 150 mg tablet 300 mg PO BEDTIME 03/26/21 06/30/22 06/29/22 History loratadine 10 mg tablet 10 mg PO DAILY 09/11/21 06/30/22 06/30/22 History amlodipine 10 mg tablet 1 tab PO BEDTIME 06/30/22 06/30/22 06/29/22 History olanzapine 5 mg tablet 1 tab PO BEDTIME 06/30/22 06/30/22 06/29/22 History oxybutynin chloride 5 mg 1 tab PO DAILY 06/30/22 06/30/22 06/30/22 History tablet,extended release 24 hr Exam Exam Date and Time: July 03, 2022 1243 Height,Weight and Vital Signs: Height 5 ft 7 in Weight 85.5 kg Last Vital Signs Temp 98.4 F 07/03/22 11:49 Pulse 74 07/03/22 11:49 Resp 16 07/03/22 11:49 BP 132/85 07/03/22 11:49 Pulse Ox 96 07/03/22 11:49 O2 Del Method 07/03/22 11:49 Pertinent Lab Results Pertinent Lab Results: Laboratory Tests 06/30/22 06/30/22 06/30/22 07:51 07:56 07:56 WBC 11.9 H RBC 3.58 L Hgb 9.2 L Hct 29.8 L MCV 83.2 MCH 25.7 L MCHC 30.9 L RDW 14.1 Plt Count 509 H MPV 8.5 L Immature Gran % (Auto) 1.1 H Neut % (Auto) 79.5 H Lymph % (Auto) 10.8 L [place] % (Auto) 7.5 Eos % (Auto) 0.8 Baso % (Auto) 0.3 Lymph # (Auto) 1.3 [place] # (Auto) 0.9 Eos # (Auto) 0.1 Baso # (Auto) 0.0 Abs Immat Gran (auto) 0.13 H Absolute Neuts (auto) 9.5 H Absolute Nucleated RBC 0.000 Nucleated RBC % (auto) 0.0 ESR 104 H PT INR Sodium Potassium Chloride Carbon Dioxide Anion Gap BUN Creatinine Estim Creat Clear Calc Estimated GFR POC Glucose Random Glucose Estimat Average Glucose Hemoglobin A1c % Lactic Acid Lactic Acid F/U @ 2Hr Calcium Magnesium Total Bilirubin Direct Bilirubin AST ALT Alkaline Phosphatase C-Reactive Protein Total Protein Albumin Vancomycin Trough Urine Opiates Screen Urine Fentanyl Screen Ur Barbiturates Screen Ur Phencyclidine Scrn Ur Amphetamines Screen U Benzodiazepines Scrn Urine Cocaine Screen U Marijuana (THC) Screen COVID-19 (THANG) Negative COVID-19 Clin Com See Note 06/30/22 06/30/22 06/30/22 07:56 07:56 07:56 WBC RBC Hgb Hct MCV MCH MCHC RDW Plt Count MPV Immature Gran % (Auto) Neut % (Auto) Lymph % (Auto) [place] % (Auto) Eos % (Auto) Baso % (Auto) Lymph # (Auto) [place] # (Auto) Eos # (Auto) Baso # (Auto) Abs Immat Gran (auto) Absolute Neuts (auto) Absolute Nucleated RBC Nucleated RBC % (auto) ESR PT 13.2 H INR 1.1 Sodium 138 Potassium 3.7 Chloride 96 Carbon Dioxide 30 H Anion Gap 16 BUN 15 Creatinine 0.72 Estim Creat Clear Calc 98.1 Estimated GFR > 60 POC Glucose Random Glucose 263 H Estimat Average Glucose Hemoglobin A1c % Lactic Acid 2.3 H* Lactic Acid F/U @ 2Hr Calcium 8.9 D Magnesium 1.3 L* Total Bilirubin 0.2 Direct Bilirubin < 0.2 AST 22 ALT 19 Alkaline Phosphatase 116 C-Reactive Protein 17.51 H Total Protein 6.8 Albumin 3.2 L Vancomycin Trough Urine Opiates Screen Urine Fentanyl Screen Ur Barbiturates Screen Ur Phencyclidine Scrn Ur Amphetamines Screen U Benzodiazepines Scrn Urine Cocaine Screen U Marijuana (THC) Screen COVID-19 (THANG) COVID-19 Immunity Project 06/30/22 06/30/22 06/30/22 10:34 10:35 15:02 WBC RBC Hgb Hct MCV MCH MCHC RDW Plt Count MPV Immature Gran % (Auto) Neut % (Auto) Lymph % (Auto) [place] % (Auto) Eos % (Auto) Baso % (Auto) Lymph # (Auto) [place] # (Auto) Eos # (Auto) Baso # (Auto) Abs Immat Gran (auto) Absolute Neuts (auto) Absolute Nucleated RBC Nucleated RBC % (auto) ESR PT INR Sodium Potassium Chloride Carbon Dioxide Anion Gap BUN Creatinine Estim Creat Clear Calc Estimated GFR POC Glucose Random Glucose Estimat Average Glucose 194 Hemoglobin A1c % 8.4 Lactic Acid Lactic Acid F/U @ 2Hr 2.0 Calcium Magnesium Total Bilirubin Direct Bilirubin AST ALT Alkaline Phosphatase C-Reactive Protein Total Protein Albumin Vancomycin Trough Urine Opiates Screen POSITIVE H Urine Fentanyl Screen POSITIVE H Ur Barbiturates Screen Not Detected Ur Phencyclidine Scrn Not Detected Ur Amphetamines Screen Not Detected U Benzodiazepines Scrn Not Detected Urine Cocaine Screen Not Detected U Marijuana (THC) Screen Not Detected COVID-19 (THANG) COVID-TravelZeeky 06/30/22 06/30/22 07/01/22 16:56 22:09 05:51 WBC RBC Hgb Hct MCV MCH MCHC RDW Plt Count MPV Immature Gran % (Auto) Neut % (Auto) Lymph % (Auto) [place] % (Auto) Eos % (Auto) Baso % (Auto) Lymph # (Auto) [place] # (Auto) Eos # (Auto) Baso # (Auto) Abs Immat Gran (auto) Absolute Neuts (auto) Absolute Nucleated RBC Nucleated RBC % (auto) ESR PT INR Sodium Potassium Chloride Carbon Dioxide Anion Gap BUN Creatinine 0.63 Estim Creat Clear Calc 112.1 Estimated GFR > 60 POC Glucose 161 H 195 H Random Glucose Estimat Average Glucose Hemoglobin A1c % Lactic Acid Lactic Acid F/U @ 2Hr Calcium Magnesium Total Bilirubin Direct Bilirubin AST ALT Alkaline Phosphatase C-Reactive Protein Total Protein Albumin Vancomycin Trough Urine Opiates Screen Urine Fentanyl Screen Ur Barbiturates Screen Ur Phencyclidine Scrn Ur Amphetamines Screen U Benzodiazepines Scrn Urine Cocaine Screen U Marijuana (THC) Screen COVID-19 (THANG) COVID-TravelZeeky 07/01/22 07/01/22 07/01/22 05:51 05:51 07:17 WBC 11.4 H RBC 3.79 L Hgb 9.8 L Hct 31.3 L MCV 82.6 MCH 25.9 L MCHC 31.3 RDW 13.9 Plt Count 581 H MPV 8.7 L Immature Gran % (Auto) 0.9 H Neut % (Auto) 74.1 H Lymph % (Auto) 16.1 L [place] % (Auto) 7.4 Eos % (Auto) 1.1 Baso % (Auto) 0.4 Lymph # (Auto) 1.8 [place] # (Auto) 0.8 Eos # (Auto) 0.1 Baso # (Auto) 0.0 Abs Immat Gran (auto) 0.10 H Absolute Neuts (auto) 8.5 H Absolute Nucleated RBC 0.000 Nucleated RBC % (auto) 0.0 ESR PT INR Sodium 141 Potassium 4.1 Chloride 97 Carbon Dioxide 30 H Anion Gap 18 BUN 7 L D Creatinine 0.67 Estim Creat Clear Calc 105.4 Estimated GFR > 60 POC Glucose 164 H Random Glucose 159 H D Estimat Average Glucose Hemoglobin A1c % Lactic Acid Lactic Acid F/U @ 2Hr Calcium 9.5 D Magnesium Total Bilirubin Direct Bilirubin AST ALT Alkaline Phosphatase C-Reactive Protein Total Protein Albumin Vancomycin Trough Urine Opiates Screen Urine Fentanyl Screen Ur Barbiturates Screen Ur Phencyclidine Scrn Ur Amphetamines Screen U Benzodiazepines Scrn Urine Cocaine Screen U Marijuana (THC) Screen COVID-19 (THAGN) COVID-19 Clin Com 07/01/22 07/01/22 07/01/22 12:32 15:37 19:05 WBC RBC Hgb Hct MCV MCH MCHC RDW Plt Count MPV Immature Gran % (Auto) Neut % (Auto) Lymph % (Auto) [place] % (Auto) Eos % (Auto) Baso % (Auto) Lymph # (Auto) [place] # (Auto) Eos # (Auto) Baso # (Auto) Abs Immat Gran (auto) Absolute Neuts (auto) Absolute Nucleated RBC Nucleated RBC % (auto) ESR PT INR Sodium Potassium Chloride Carbon Dioxide Anion Gap BUN Creatinine Estim Creat Clear Calc Estimated GFR POC Glucose 270 H 265 H Random Glucose Estimat Average Glucose Hemoglobin A1c % Lactic Acid Lactic Acid F/U @ 2Hr Calcium Magnesium Total Bilirubin Direct Bilirubin AST ALT Alkaline Phosphatase C-Reactive Protein Total Protein Albumin Vancomycin Trough 7.2 L Urine Opiates Screen Urine Fentanyl Screen Ur Barbiturates Screen Ur Phencyclidine Scrn Ur Amphetamines Screen U Benzodiazepines Scrn Urine Cocaine Screen U Marijuana (THC) Screen COVID-19 (THANG) COVID-19 Immunity Project 07/01/22 07/02/22 07/02/22 20:36 05:41 05:41 WBC 10.8 RBC 3.80 L Hgb 9.9 L Hct 30.8 L MCV 81.1 MCH 26.1 L MCHC 32.1 RDW 13.7 Plt Count 593 H MPV 8.8 L Immature Gran % (Auto) 0.8 H Neut % (Auto) 74.8 H Lymph % (Auto) 16.3 L [place] % (Auto) 6.8 Eos % (Auto) 1.0 Baso % (Auto) 0.3 Lymph # (Auto) 1.8 [place] # (Auto) 0.7 Eos # (Auto) 0.1 Baso # (Auto) 0.0 Abs Immat Gran (auto) 0.09 H Absolute Neuts (auto) 8.1 Absolute Nucleated RBC 0.000 Nucleated RBC % (auto) 0.0 ESR PT INR Sodium 136 Potassium 3.8 Chloride 97 Carbon Dioxide 26 Anion Gap 17 BUN 10 Creatinine 0.65 Estim Creat Clear Calc 105.7 Estimated GFR > 60 POC Glucose 258 H Random Glucose 204 H Estimat Average Glucose Hemoglobin A1c % Lactic Acid Lactic Acid F/U @ 2Hr Calcium 8.9 D Magnesium Total Bilirubin Direct Bilirubin AST ALT Alkaline Phosphatase C-Reactive Protein Total Protein Albumin Vancomycin Trough Urine Opiates Screen Urine Fentanyl Screen Ur Barbiturates Screen Ur Phencyclidine Scrn Ur Amphetamines Screen U Benzodiazepines Scrn Urine Cocaine Screen U Marijuana (THC) Screen COVID-19 (THANG) COVID-19 Immunity Project 07/02/22 07/02/22 07/02/22 05:41 08:00 11:39 WBC RBC Hgb Hct MCV MCH MCHC RDW Plt Count MPV Immature Gran % (Auto) Neut % (Auto) Lymph % (Auto) [place] % (Auto) Eos % (Auto) Baso % (Auto) Lymph # (Auto) [place] # (Auto) Eos # (Auto) Baso # (Auto) Abs Immat Gran (auto) Absolute Neuts (auto) Absolute Nucleated RBC Nucleated RBC % (auto) ESR PT INR Sodium Potassium Chloride Carbon Dioxide Anion Gap BUN Creatinine 0.65 Estim Creat Clear Calc 105.7 Estimated GFR > 60 POC Glucose 257 H 270 H Random Glucose Estimat Average Glucose Hemoglobin A1c % Lactic Acid Lactic Acid F/U @ 2Hr Calcium Magnesium Total Bilirubin Direct Bilirubin AST ALT Alkaline Phosphatase C-Reactive Protein Total Protein Albumin Vancomycin Trough Urine Opiates Screen Urine Fentanyl Screen Ur Barbiturates Screen Ur Phencyclidine Scrn Ur Amphetamines Screen U Benzodiazepines Scrn Urine Cocaine Screen U Marijuana (THC) Screen COVID-19 (THANG) COVID-19 [facility] Com 07/02/22 07/02/22 07/03/22 15:49 19:39 05:04 WBC RBC Hgb Hct MCV MCH MCHC RDW Plt Count MPV Immature Gran % (Auto) Neut % (Auto) Lymph % (Auto) [place] % (Auto) Eos % (Auto) Baso % (Auto) Lymph # (Auto) [place] # (Auto) Eos # (Auto) Baso # (Auto) Abs Immat Gran (auto) Absolute Neuts (auto) Absolute Nucleated RBC Nucleated RBC % (auto) ESR PT INR Sodium Potassium Chloride Carbon Dioxide Anion Gap BUN Creatinine 0.72 Estim Creat Clear Calc 95.4 Estimated GFR > 60 POC Glucose 264 H 219 H Random Glucose Estimat Average Glucose Hemoglobin A1c % Lactic Acid Lactic Acid F/U @ 2Hr Calcium Magnesium Total Bilirubin Direct Bilirubin AST ALT Alkaline Phosphatase C-Reactive Protein Total Protein Albumin Vancomycin Trough Urine Opiates Screen Urine Fentanyl Screen Ur Barbiturates Screen Ur Phencyclidine Scrn Ur Amphetamines Screen U Benzodiazepines Scrn Urine Cocaine Screen U Marijuana (THC) Screen COVID-19 (THANG) COVID-19 Ignyta Com 07/03/22 07/03/22 07/03/22 05:04 05:04 07:39 WBC 18.8 H RBC 4.49 L Hgb 11.6 L Hct 36.3 L MCV 80.8 MCH 25.8 L MCHC 32.0 RDW 14.0 Plt Count 722 H MPV 8.3 L Immature Gran % (Auto) 1.6 H Neut % (Auto) 78.1 H Lymph % (Auto) 15.1 L [place] % (Auto) 4.9 Eos % (Auto) 0.1 Baso % (Auto) 0.2 Lymph # (Auto) 2.8 [place] # (Auto) 0.9 Eos # (Auto) 0.0 Baso # (Auto) 0.0 Abs Immat Gran (auto) 0.31 H Absolute Neuts (auto) 14.7 H Absolute Nucleated RBC 0.000 Nucleated RBC % (auto) 0.0 ESR PT INR Sodium 134 L Potassium 3.9 Chloride 93 L Carbon Dioxide 27 Anion Gap 18 BUN 19 H D Creatinine 0.72 Estim Creat Clear Calc 95.4 Estimated GFR > 60 POC Glucose 135 H Random Glucose 132 H D Estimat Average Glucose Hemoglobin A1c % Lactic Acid Lactic Acid F/U @ 2Hr Calcium 9.4 Magnesium Total Bilirubin Direct Bilirubin AST ALT Alkaline Phosphatase C-Reactive Protein Total Protein Albumin Vancomycin Trough Urine Opiates Screen Urine Fentanyl Screen Ur Barbiturates Screen Ur Phencyclidine Scrn Ur Amphetamines Screen U Benzodiazepines Scrn Urine Cocaine Screen U Marijuana (THC) Screen COVID-19 (THANG) COVID-19 Clin Com Airway Mallampati Class: III TM Dist: >3cm Neck ROM: Full Assessment and Plan Assessment Anesthesia Assessment: Anesthesia Plan Discussed and Chart Reviewed Final Anesthetic Review Family History of Problems with Anesthesia: No History of Problems with Anesthesia: No NPO: Yes ASA Class: III Final Preanesthetic Review: No Changes in Pt Med Stat, Meds/Allgs Chart Reviewed, Consent Obtained/Reviewed and Anes Risks/Benef Reviewed Patient Risk: Intermediate Procedure Risk: Intermediate Anesthetic Plan Anesthetic Plan: GA Disposition: Standard PACU
--- NOTE | 2022-07-03 13:45 | HO.PM.IMPN ---
Subjective Subjective Date of Service: 07/03/22 Interval History: Seen and examined this morning Follow-up for left ankle infection ortho plans for OR today Patient reports ongoing left ankle pain. Denies fever, chills Review of Systems Review of Systems: Yes all other systems are reviewed and are negative Constitutional Constitutional: Denies chills and Denies fever(s) Cardiovascular Cardiovascular: Denies chest pain, Denies palpitations and Denies dyspnea Respiratory Respiratory: Denies cough and Denies dyspnea Gastrointestinal Gastrointestinal: Denies abdominal pain, Denies nausea and Denies vomiting Endocrine Endocrine: Denies palpitations Physical Exam Vital Signs: Vital Signs: Last Vital Signs Temp 98.4 F 07/03/22 11:49 Pulse 74 07/03/22 11:49 Resp 16 07/03/22 11:49 BP 132/85 07/03/22 11:49 Pulse Ox 96 07/03/22 11:49 O2 Del Method 07/03/22 11:49 BMI result Body Mass Index 29.5 Const: General: comfortable, alert and awake Nutritional Appearance: average body habitus Orientation/consciousness: patient oriented x3 Resp: Effort & Inspection: normal respiratory effort and able to speak in complete sentences Cardio: Rate: regular rate Heart sounds: S1 normal heart sound present and S2 normal heart sound present GI: Inspection: No distended Palpation (GI): Soft to palpation Neuro: General: patient oriented x3 and CN's II-XI intact bilaterally Extrem: Other: left ankle edema, skin changes tenderness Objective Data Active Medications Acetaminophen (Acetaminophen 325 Mg Tablet) 650 mg PO Q6H PRN PRN Reason: Pain, Mild (Pain Scale 1-3) Last Admin: 07/01/22 17:46 Dose: 650 mg Documented By: ERA Amlodipine Besylate (Amlodipine Besylate 10 Mg Tablet) 10 mg PO BEDTIME [facility]; Protocol Last Admin: 07/02/22 21:03 Dose: 10 mg Documented By: FAYE Artificial Tears (Artificial Tears 15 Ml Drops) 1 drop EYE-BOTH QID [facility] Last Admin: 07/03/22 09:34 Dose: 1 drop Documented By: LEEANNA Atorvastatin Calcium (Atorvastatin Calcium 40 Mg Tablet) 40 mg PO BEDTIME [facility] Last Admin: 07/02/22 21:04 Dose: 40 mg Documented By: FAYE Buprenorphine/Naloxone (Buprenorphine/Naloxone 8/2 Mg Film) 1 film BUCCAL BID [facility] Last Admin: 07/03/22 09:32 Dose: 1 film Documented By: LEEANNA Dextrose (Dextrose 50 % 25 Gm/50 Ml Syringe) 25 gm IVPUSH Q15M PRN; Protocol PRN Reason: per Hypoglycemia Standing Ord. Dextrose (Dextrose 50 % 25 Gm/50 Ml Syringe) 25 gm IVPUSH Q15M PRN; Protocol PRN Reason: per Hypoglycemia Standing Ord. Dextrose (Dextrose 50 % 25 Gm/50 Ml Syringe) 25 gm IVPUSH Q15M PRN; Protocol PRN Reason: per Hypoglycemia Standing Ord. Dorzolamide/Timolol (Dorzolamide/Timolo 2.23%/0.68% 10 Ml Drbtl) 1 drop EYE-BOTH BID [facility] Last Admin: 07/03/22 09:34 Dose: 1 drop Documented By: LEEANNA Fentanyl (Fentanyl Citrate/Pf 100 Mcg/2 Ml Vial) 50 mcg IVPUSH Q5M PRN; Protocol PRN Reason: Pain, Severe (Pain Scale 7-10) Ferrous Sulfate (Ferrous Sulfate 300 Mg/5 Ml Liquid) 150 mg PO DAILY [facility] Last Admin: 07/03/22 09:34 Dose: Not Given Documented By: LEEANNA Non-Admin Reason: NPO Glucose (Glucose Gel 15 Gm Gel..Gram.) 15 gm PO Q15M PRN; Protocol PRN Reason: per Hypoglycemia Standing Ord. Glucose (Glucose Gel 15 Gm Gel..Gram.) 15 gm PO Q15M PRN; Protocol PRN Reason: per Hypoglycemia Standing Ord. Glucose (Glucose Gel 15 Gm Gel..Gram.) 15 gm PO Q15M PRN; Protocol PRN Reason: per Hypoglycemia Standing Ord. Insulin Glargine (Insulin Glargine,Hum.Rec.Anlog 100 Unit/Ml 10 Ml Vial) 59 unit SUBCUT BEDTIME [facility] Last Admin: 07/02/22 21:03 Dose: 59 unit Documented By: FAYE Insulin Human Lispro (Insulin Lispro 100 Unit/Ml 3 Ml Vial) 0 unit SUBCUT QIDACHS [facility]; Protocol Stop: 07/03/22 16:24 Last Admin: 07/03/22 11:40 Dose: Not Given Documented By: LEEANNA Non-Admin Reason: Off Unit: Surgery Latanoprost (Latanoprost 0.005 % Ophth Yari 2.5 Ml Drops) 1 drop EYE-LEFT BEDTIME [facility] Last Admin: 07/02/22 21:05 Dose: Not Given Documented By: FAYE Non-Admin Reason: Med Not Available Lisinopril (Lisinopril 40 Mg Tablet) 40 mg PO BID [facility]; Protocol Last Admin: 07/03/22 09:33 Dose: 40 mg Documented By: LEEANNA Loratadine (Loratadine 10 Mg Tablet) 10 mg PO DAILY [facility] Last Admin: 07/03/22 09:19 Dose: Not Given Documented By: LEEANNA Non-Admin Reason: NPO Melatonin (Melatonin 3 Mg Tablet) 6 mg PO BEDTIME PRN PRN Reason: Insomnia Metoprolol Succinate (Metoprolol Succinate Er 25 Mg Tab.Er.24h) 25 mg PO DAILY [facility]; Protocol Last Admin: 07/03/22 11:22 Dose: Not Given Documented By: LEEANNA Non-Admin Reason: See Note Morphine Sulfate (Morphine Sulfate 2 Mg/Ml Cartridge) 2 mg IVPUSH Q2H PRN; Protocol PRN Reason: severe pain Last Admin: 07/02/22 16:24 Dose: 2 mg Documented By: ERA Multivitamins/Vitamin C (Multivitamin Tablet) 1 tab PO DAILY [facility] Last Admin: 07/03/22 09:19 Dose: Not Given Documented By: LEEANNA Non-Admin Reason: NPO Olanzapine (Olanzapine 5 Mg Tablet) 5 mg PO BEDTIME [facility] Last Admin: 07/02/22 21:04 Dose: 5 mg Documented By: FAYE Omeprazole (Omeprazole 20 Mg Capsule.Dr) 20 mg PO DAILY@0630 [facility] Last Admin: 07/03/22 05:07 Dose: 20 mg Documented By: FAYE Ondansetron HCl (Ondansetron Hcl 4 Mg/2 Ml Vial) 4 mg IVPUSH Q8H PRN PRN Reason: Nausea and Vomiting Last Admin: 07/02/22 15:14 Dose: 4 mg Documented By: ERA Ondansetron HCl (Ondansetron Hcl 4 Mg/2 Ml Vial) 4 mg IVPUSH ONCE PRN PRN Reason: Nausea and Vomiting Oxybutynin Chloride (Oxybutynin Chloride Er 5 Mg Tab.Er.24) 5 mg PO DAILY [facility] Last Admin: 07/03/22 09:19 Dose: Not Given Documented By: LEEANNA Non-Admin Reason: NPO Oxycodone HCl (Oxycodone Hcl Immed Release 5 Mg Tablet) 5 mg PO Q4H PRN PRN Reason: moderate pain Last Admin: 07/02/22 15:13 Dose: 5 mg Documented By: ERA Oxycodone HCl (Oxycodone Hcl Immed Release 5 Mg Tablet) 10 mg PO ONCE PRN PRN Reason: Pain, Severe (Pain Scale 7-10) Pharmacy Consult (Consult Rx Perform Med Rec) 1 each MISCELLANE ONCE PRN PRN Reason: Consult order Pharmacy Consult (Consult Rx Vancomycin Dosing) 1 each MISCELLANE DAILY PRN PRN Reason: Consult order Sodium Chloride (0.9 % Sodium Chloride Flush 3 Ml Syringe) 3 ml IVFLUSH QSHIFT [facility] Last Admin: 07/03/22 09:33 Dose: 3 ml Documented By: LEEANNA Tamsulosin HCl (Tamsulosin Hcl 0.4 Mg Capsule) 0.4 mg PO BEDTIME [facility] Last Admin: 07/02/22 21:03 Dose: 0.4 mg Documented By: FAYE Trazodone HCl (Trazodone Hcl 100 Mg Tablet) 300 mg PO BEDTIME [facility] Last Admin: 07/02/22 21:04 Dose: 300 mg Documented By: FAYE Labs CBC & Chem 7: 07/03/22 05:04 07/03/22 05:04 Labs: Laboratory Results - last 24 hr 07/02/22 07/02/22 07/03/22 15:49 19:39 05:04 MCV MCH MCHC RDW Plt Count MPV Immature Gran % (Auto) Neut % (Auto) Lymph % (Auto) Mckean % (Auto) Eos % (Auto) Baso % (Auto) Lymph # (Auto) Mckean # (Auto) Eos # (Auto) Baso # (Auto) Abs Immat Gran (auto) Absolute Neuts (auto) Absolute Nucleated RBC Nucleated RBC % (auto) Anion Gap Estim Creat Clear Calc 95.4 Estimated GFR > 60 POC Glucose 264 H 219 H Random Glucose Calcium 07/03/22 07/03/22 07/03/22 05:04 05:04 07:39 MCV 80.8 MCH 25.8 L MCHC 32.0 RDW 14.0 Plt Count 722 H MPV 8.3 L Immature Gran % (Auto) 1.6 H Neut % (Auto) 78.1 H Lymph % (Auto) 15.1 L Mckean % (Auto) 4.9 Eos % (Auto) 0.1 Baso % (Auto) 0.2 Lymph # (Auto) 2.8 Mckean # (Auto) 0.9 Eos # (Auto) 0.0 Baso # (Auto) 0.0 Abs Immat Gran (auto) 0.31 H Absolute Neuts (auto) 14.7 H Absolute Nucleated RBC 0.000 Nucleated RBC % (auto) 0.0 Anion Gap 18 Estim Creat Clear Calc 95.4 Estimated GFR > 60 POC Glucose 135 H Random Glucose 132 H D Calcium 9.4 Microbiology Microbiology Results: Microbiology 06/30/22 08:28 Blood Culture - Preliminary Blood - Venous No growth after 48 hours. Assessment and Plan (1) Cellulitis and abscess of left leg: Status: Acute Plan This is a 71-year-old male with a pertinent history of insulin-dependent diabetes, essential hypertension, opioid use disorder, mixed hyperlipidemia, mood disorder, BPH, prior bimalleolar fracture presents to the emergency department for evaluation of left ankle swelling and pain. Left ankle cellulitis/abscess. wbc up to 18 ortho recommend to stop Abx for high culture yield. Reasonable as patient is not septic. Removal of hardware planned for today due to concerns for underlying abscess ID following #.? Lactic acidosis -Type A, resolved with IV fluid resuscitation #.? Hypomagnesemia -repleted #.? Opioid use disorder -continue buprenorphine and naloxone #.? Mood disorder -continue trazodone and Zyprexa #.? Essential hypertension -continue home p.o. medications #.? BPH -on Flomax and oxybutynin #.? Insulin-dependent type 2 diabetes mellitus with hyperglycemia -hold p.o. medications.? Continue home basal regimen, POCs with sliding scale insulin #. Chronic normocytic anemia -Hb above transfusion threshold DVT prophylaxis: Hold anticoagulation for Sx Full code Attending-Dr. Kirby Requires ongoing inpatient hospitalization for removal of hardware/ankle abscess Quality Stroke Does the patient have a stroke diagnosis?: No VTE Prior VTE?: No VTE Risk Level:: Medical - moderate - high VTE Device Contraindication: Treatment Not Indicated VTE Drug Contraindication: N/A - Med Ordered
[2022-07-03 14:11] LABS: Magnesium 1.6 mg/dL (1.6-2.6)
--- NOTE | 2022-07-03 14:28 | P.BOP_ITS ---
Brief Operative Note Date of Service: 07/03/22 Pre-op diagnosis: Failed ORIF left ankle Superficial abcess left ankle Procedure: Removal of hardware left ankle I&D left ankle abcess Surgeon: Jigar Lee MD Anesthesia: GETA Was an [employer] used for this Procedure?: No Estimated blood loss (mL): 5 Tourniquet time (min): 25 IV fluids (mL): 500 Pathology: other Condition: stable Disposition: PACU
[2022-07-03] MEDS: oxyCODONE HCl Immed Release 5 MG TABLET 10 MG PO (14:44)
[2022-07-03] MEDS: fentaNYL citrate/PF 100 MCG/2 ML VIAL 50 MCG IVPUSH ×4 (14:45→15:03)
[2022-07-03] MEDS: Acetaminophen 1,000 MG/100 ML PIGGYBACK 400 MG IV (15:17)
[2022-07-03 16:47] LABS: Glucose, Whole Blood 110 mg/dL (60-115)
[2022-07-03] MEDS: Morphine Sulfate 2 MG/ML CARTRIDGE IVPUSH (17:27)
--- NOTE | 2022-07-03 18:10 | PC.NURSE ---
Pt returned from PACU with ilene CDI to left ankle. Medicated with morphine for c/o pain.
[2022-07-03] MEDS: Insulin Glargine,Hum.rec.anlog 100 UNIT/ML 10 ML VIAL 59 UNIT SUBCUT (20:19)
[2022-07-03] MEDS: Latanoprost 0.005 % Ophth Sol 2.5 ML DROPS 1 DROP EYE-LEFT (20:19)
[2022-07-03] MEDS: OLANZapine 5 MG TABLET PO (20:20)
[2022-07-03] MEDS: amLODIPine Besylate 10 MG TABLET PO (20:20)
[2022-07-03] MEDS: Atorvastatin Calcium 40 MG TABLET PO (20:20)
[2022-07-03] MEDS: Tamsulosin HCL 0.4 MG CAPSULE PO (20:22)
[2022-07-03] MEDS: traZODone HCL 100 MG TABLET 300 MG PO (20:22)
[2022-07-03 20:23] LABS: Glucose, Whole Blood 198 mg/dL (60-115)
[2022-07-03] MEDS: oxyCODONE HCl Immed Release 5 MG TABLET PO (20:25)
[2022-07-04] MEDS: Acetaminophen 1,000 MG/100 ML PIGGYBACK 400 MG IV ×4 (00:33→16:58)
[2022-07-04 04:00] VITALS: BP 141/68; PULSE 69; RESP 17; TEMP 36.4; O2SAT 98
[2022-07-04 05:29] LABS: Glucose, Whole Blood 63 mg/dL (60-115)
[2022-07-04 05:29] LABS: Glucose, Whole Blood 105 mg/dL (60-115)
[2022-07-04] MEDS: Omeprazole 20 MG CAPSULE.DR PO (05:57)
[2022-07-04 06:42] LABS: Hematocrit 31.5 % (42.0-52.0); Mean Corpuscular HGB Conc 31.7 g/dl (31.0-36.0); Mean Corpuscular Hemoglobin 25.8 pg (27.0-33.0); Mean Corpuscular Volume 81.4 fL (80.0-98.0); Mean Platelet Volume 8.4 fL (9.4-12.4); Platelet Count 576 X10*3/uL (160-400); Red Blood Count 3.87 X10*6/uL (4.60-5.80); Red Cell Distribution Width 14.1 % (11.0-16.0); White Blood Count 13.3 X10*3/uL (4.8-10.8)
[2022-07-04 06:53] LABS: Anion Gap 16 (12-20); Blood Urea Nitrogen 18 mg/dL (9-16); Calcium 8.9 mg/dL (8.4-10.2); Carbon Dioxide 28 mmol/L (22-29); Chloride 97 mmol/L (96-108); Creatinine Clr Calc Pharmacy 104.1; Estimated Glomerular Filt Rate > 60; Glucose Random 84 mg/dL (60-115); Potassium 3.6 mmol/L (3.3-5.1); Sodium 137 mmol/L (135-145)
[2022-07-04 08:00] VITALS: BP 151/77; PULSE 80; RESP 18; TEMP 36.1; O2SAT 97
[2022-07-04 08:01] LABS: Glucose, Whole Blood 72 mg/dL (60-115)
[2022-07-04] MEDS: Buprenorphine/Naloxone 8/2 mg FILM 1 FILM BUCCAL ×2 (09:35→20:12)
[2022-07-04] MEDS: Metoprolol Succinate ER 25 MG TAB.ER.24H PO (09:35)
[2022-07-04] MEDS: Loratadine 10 MG TABLET PO (09:36)
[2022-07-04] MEDS: Multivitamin TABLET 1 TAB PO (09:36)
[2022-07-04] MEDS: lisinopriL 40 MG TABLET PO ×2 (09:36→20:11)
[2022-07-04] MEDS: Ferrous Sulfate 300 MG/5 ML LIQUID 150 MG PO (09:36)
[2022-07-04] MEDS: Dorzolamide/Timolo 2.23%/0.68% 10 ML DRBTL 1 DROP EYE-BOTH ×2 (09:39→20:17)
[2022-07-04] MEDS: Artificial Tears 15 ML DROPS 1 DROP EYE-BOTH ×3 (09:40→16:59)
--- NOTE | 2022-07-04 10:31 | PM.PNORT ---
Subjective Subjective Date of Service: 07/04/22 Interval history: POD1 s/p left ankle removal of orthopedic hardware. Patient is resting comfortably in bed. No overnight events. Pain is managed. No additional complaints. Physical Exam Vital Signs: Vital Signs: Last Vital Signs Temp 97.0 F 07/04/22 08:00 Pulse 80 07/04/22 08:00 Resp 18 07/04/22 08:00 BP 151/77 H 07/04/22 08:00 Pulse Ox 97 07/04/22 08:00 O2 Del Method 07/04/22 04:00 O2 Flow Rate 2 07/03/22 15:34 BMI result Body Mass Index 29.5 Const: General: cooperative, healthy appearing and no acute distress Resp: Effort & Inspection: normal respiratory effort and able to speak in complete sentences Cardio: Rate: regular rate Peripheral pulses: Peripheral pulses 2+ throughout GI: Palpation (GI): Soft to palpation Skin: Lesions: no lesions Rashes: no rashes Extrem: Other: Left ankle incision sites c/d/i. Sutures intact. No active drainage. Packing in place which was removed at bedside. Sensation intact. Pedal pulse intact. Able to slightly dorsiflex and plantarflex. Procedures Date of Service Date of Service: 07/04/22 Progress Note: A&P Assessment and plan (1) Cellulitis and abscess of left leg: Status: Acute Assessment and Plan: Continue pain mgmnt Consult to ID stat IV abx per ID consult NWB LLE Dispo planning-Pending ID consult, IV abx, pain management (2) Left ankle swelling: Status: Acute (3) Post-traumatic arthritis of left ankle: Status: Acute (4) S/P hardware removal: Status: Acute Time Spent With Patient Time: Total time spent is greater than 50% in coordination of care (as documented) at patient's floor/unit and/or counseling patient: Quality Stroke Does the patient have a stroke diagnosis?: No VTE Prior VTE?: No VTE Risk Level:: Medical - moderate - high VTE Device Contraindication: Treatment Not Indicated VTE Drug Contraindication: N/A - Med Ordered
[2022-07-04 11:35] LABS: Glucose, Whole Blood 290 mg/dL (60-115)
--- NOTE | 2022-07-04 11:51 | P.PNIM_ITS ---
Subjective Subjective Date of Service: 07/04/22 Interval History: seen and examined this morning follow up for left ankle abscess s/p removal of left ankle hardware and I&D of ankle abscess in OR yesterday with ortho denies fever or chills today having pain left ankle, but able to tolerate Review of Systems Review of Systems: Yes all other systems are reviewed and are negative Constitutional Constitutional: Denies chills and Denies fever(s) Cardiovascular Cardiovascular: Denies chest pain, Denies palpitations and Denies dyspnea Respiratory Respiratory: Denies cough and Denies dyspnea Gastrointestinal Gastrointestinal: Denies abdominal pain, Denies nausea and Denies vomiting Endocrine Endocrine: Denies palpitations Physical Exam Vital Signs: Vital Signs: Last Vital Signs Temp 97.0 F 07/04/22 08:00 Pulse 80 07/04/22 08:00 Resp 18 07/04/22 08:00 BP 151/77 H 07/04/22 08:00 Pulse Ox 97 07/04/22 08:00 O2 Del Method 07/04/22 04:00 O2 Flow Rate 2 07/03/22 15:34 BMI result Body Mass Index 29.5 Const: General: cooperative, comfortable, no acute distress and awake Nutritional Appearance: average body habitus Orientation/consciousness: patient oriented x3 Resp: Effort & Inspection: normal respiratory effort and able to speak in complete sentences Cardio: Rate: regular rate Heart sounds: S1 normal heart sound present and S2 normal heart sound present GI: Inspection: No distended Palpation (GI): Soft to palpation Neuro: General: patient oriented x3 and CN's II-XI intact bilaterally Extrem: Other: left foot/ankle wrapped in ilene bandage Objective Data Active Medications Acetaminophen (Acetaminophen 325 Mg Tablet) 650 mg PO Q6H PRN PRN Reason: Pain, Mild (Pain Scale 1-3) Last Admin: 07/01/22 17:46 Dose: 650 mg Documented By: ERA Amlodipine Besylate (Amlodipine Besylate 10 Mg Tablet) 10 mg PO BEDTIME [facility]; Protocol Last Admin: 07/03/22 20:20 Dose: 10 mg Documented By: ESA Artificial Tears (Artificial Tears 15 Ml Drops) 1 drop EYE-BOTH QID [facility] Last Admin: 07/04/22 09:40 Dose: 1 drop Documented By: BRYSON Atorvastatin Calcium (Atorvastatin Calcium 40 Mg Tablet) 40 mg PO BEDTIME [facility] Last Admin: 07/03/22 20:20 Dose: 40 mg Documented By: ESA Buprenorphine/Naloxone (Buprenorphine/Naloxone 8/2 Mg Film) 1 film BUCCAL BID [facility] Last Admin: 07/04/22 09:35 Dose: 1 film Documented By: BRYSON Dextrose (Dextrose 50 % 25 Gm/50 Ml Syringe) 25 gm IVPUSH Q15M PRN; Protocol PRN Reason: per Hypoglycemia Standing Ord. Dextrose (Dextrose 50 % 25 Gm/50 Ml Syringe) 25 gm IVPUSH Q15M PRN; Protocol PRN Reason: per Hypoglycemia Standing Ord. Dextrose (Dextrose 50 % 25 Gm/50 Ml Syringe) 25 gm IVPUSH Q15M PRN; Protocol PRN Reason: per Hypoglycemia Standing Ord. Dorzolamide/Timolol (Dorzolamide/Timolo 2.23%/0.68% 10 Ml Drbtl) 1 drop EYE- BOTH BID [facility] Last Admin: 07/04/22 09:39 Dose: 1 drop Documented By: BRYSON Ferrous Sulfate (Ferrous Sulfate 300 Mg/5 Ml Liquid) 150 mg PO DAILY [facility] Last Admin: 07/04/22 09:36 Dose: 150 mg Documented By: BRYSON Glucose (Glucose Gel 15 Gm Gel..Gram.) 15 gm PO Q15M PRN; Protocol PRN Reason: per Hypoglycemia Standing Ord. Glucose (Glucose Gel 15 Gm Gel..Gram.) 15 gm PO Q15M PRN; Protocol PRN Reason: per Hypoglycemia Standing Ord. Glucose (Glucose Gel 15 Gm Gel..Gram.) 15 gm PO Q15M PRN; Protocol PRN Reason: per Hypoglycemia Standing Ord. Acetaminophen (Ofirmev) 1,000 mg in 100 mls @ 400 mls/hr IV Q6H [facility] Last Admin: 07/04/22 11:24 Dose: 400 mls/hr Documented By: BRYSON Cefazolin Sodium/Dextrose (Ancef) 2 gm in 50 mls @ 100 mls/hr IV Q8H [facility] Insulin Glargine (Insulin Glargine,Hum.Rec.Anlog 100 Unit/Ml 10 Ml Vial) 59 unit SUBCUT BEDTIME [facility] Last Admin: 07/03/22 20:19 Dose: 59 unit Documented By: ESA Latanoprost (Latanoprost 0.005 % Ophth Yari 2.5 Ml Drops) 1 drop EYE-LEFT BEDTIME [facility] Last Admin: 07/03/22 20:19 Dose: 1 drop Documented By: ESA Lisinopril (Lisinopril 40 Mg Tablet) 40 mg PO BID [facility]; Protocol Last Admin: 07/04/22 09:36 Dose: 40 mg Documented By: BRYSON Loratadine (Loratadine 10 Mg Tablet) 10 mg PO DAILY [facility] Last Admin: 07/04/22 09:36 Dose: 10 mg Documented By: BRYSON Melatonin (Melatonin 3 Mg Tablet) 6 mg PO BEDTIME PRN PRN Reason: Insomnia Metoprolol Succinate (Metoprolol Succinate Er 25 Mg Tab.Er.24h) 25 mg PO DAILY [facility]; Protocol Last Admin: 07/04/22 09:35 Dose: 25 mg Documented By: BRYSON Morphine Sulfate (Morphine Sulfate 2 Mg/Ml Cartridge) 2 mg IVPUSH Q2H PRN; Protocol PRN Reason: severe pain Last Admin: 07/03/22 17:27 Dose: 2 mg Documented By: NIKITA Multivitamins/Vitamin C (Multivitamin Tablet) 1 tab PO DAILY [facility] Last Admin: 07/04/22 09:36 Dose: 1 tab Documented By: BRYSON Olanzapine (Olanzapine 5 Mg Tablet) 5 mg PO BEDTIME [facility] Last Admin: 07/03/22 20:20 Dose: 5 mg Documented By: ESA Omeprazole (Omeprazole 20 Mg Capsule.Dr) 20 mg PO DAILY@0630 [facility] Last Admin: 07/04/22 05:57 Dose: 20 mg Documented By: ESA Ondansetron HCl (Ondansetron Hcl 4 Mg/2 Ml Vial) 4 mg IVPUSH Q8H PRN PRN Reason: Nausea and Vomiting Last Admin: 07/02/22 15:14 Dose: 4 mg Documented By: ERA Ondansetron HCl (Ondansetron Hcl 4 Mg/2 Ml Vial) 4 mg IVPUSH ONCE PRN PRN Reason: Nausea and Vomiting Oxybutynin Chloride (Oxybutynin Chloride Er 5 Mg Tab.Er.24) 5 mg PO DAILY [facility] Last Admin: 07/04/22 09:35 Dose: 5 mg Documented By: BRYSON Oxycodone HCl (Oxycodone Hcl Immed Release 5 Mg Tablet) 5 mg PO Q4H PRN PRN Reason: moderate pain Last Admin: 07/03/22 20:25 Dose: 5 mg Documented By: ESA Pharmacy Consult (Consult Rx Perform Med Rec) 1 each MISCELLANE ONCE PRN PRN Reason: Consult order Pharmacy Consult (Consult Rx Vancomycin Dosing) 1 each MISCELLANE DAILY PRN PRN Reason: Consult order Sodium Chloride (0.9 % Sodium Chloride Flush 3 Ml Syringe) 3 ml IVFLUSH QSHIFT [facility] Last Admin: 07/04/22 08:57 Dose: Not Given Documented By: BRYSON Non-Admin Reason: No Access Tamsulosin HCl (Tamsulosin Hcl 0.4 Mg Capsule) 0.4 mg PO BEDTIME [facility] Last Admin: 07/03/22 20:22 Dose: 0.4 mg Documented By: ESA Trazodone HCl (Trazodone Hcl 100 Mg Tablet) 300 mg PO BEDTIME [facility] Last Admin: 07/03/22 20:22 Dose: 300 mg Documented By: ESA Labs CBC & Chem 7: 07/04/22 05:48 07/04/22 05:48 Labs: Laboratory Results - last 24 hr 07/03/22 07/03/22 07/03/22 05:04 16:42 20:13 MCV MCH MCHC RDW Plt Count MPV Absolute Nucleated RBC Nucleated RBC % (auto) Anion Gap Estim Creat Clear Calc Estimated GFR POC Glucose 110 198 H Random Glucose Calcium Magnesium 1.6 07/04/22 07/04/22 07/04/22 04:05 05:25 05:48 MCV MCH MCHC RDW Plt Count MPV Absolute Nucleated RBC Nucleated RBC % (auto) Anion Gap 16 Estim Creat Clear Calc 104.1 Estimated GFR > 60 POC Glucose 63 105 Random Glucose 84 D Calcium 8.9 Magnesium 07/04/22 07/04/22 07/04/22 05:48 07:50 11:28 MCV 81.4 MCH 25.8 L MCHC 31.7 RDW 14.1 Plt Count 576 H MPV 8.4 L Absolute Nucleated RBC 0.000 Nucleated RBC % (auto) 0.0 Anion Gap Estim Creat Clear Calc Estimated GFR POC Glucose 72 290 H Random Glucose Calcium Magnesium Microbiology Microbiology Results: Microbiology 07/03/22 Unknown Gram Stain - Final Ankle Aspirate - Aspirate Routine Culture - Preliminary Staphylococcus aureus Anaerobic Culture - Preliminary Culture in progress. 07/03/22 Unknown Gram Stain - Final Ankle Left Routine Culture - Preliminary Staphylococcus aureus Assessment and Plan (1) S/P hardware removal: Status: Acute (2) Cellulitis and abscess of left leg: Status: Acute Plan This is a 71-year-old male with a pertinent history of insulin-dependent diabetes, essential hypertension, opioid use disorder, mixed hyperlipidemia, mood disorder, BPH, prior bimalleolar fracture presents to the emergency department for evaluation of left ankle swelling and pain. Left ankle cellulitis/abscess. wbc trending down s/p Removal of hardware and I&D of superficial abscess 07/03 -IV kefzol recommended per ID -follow wound culture results Lactic acidosis -Type A, resolved with IV fluid resuscitation Hypomagnesemia replaced Opioid use disorder continue suboxone Mood disorder -continue trazodone and Zyprexa Essential hypertension -continue home p.o. medications BPH continue Flomax and oxybutynin Insulin-dependent type 2 diabetes mellitus with hyperglycemia -hold p.o. medications.? -Continue home Lantus, POCs with sliding scale insulin Chronic normocytic anemia H/H stable DVT prophylaxis: lovenox Full code Attending-Dr. Dobbins Requires ongoing inpatient hospitalization for IV antibiotics for treatment of ankle infection Quality Stroke Does the patient have a stroke diagnosis?: No VTE Prior VTE?: No VTE Risk Level:: Medical - moderate - high VTE Device Contraindication: Treatment Not Indicated VTE Drug Contraindication: N/A - Med Ordered
[2022-07-04 12:00] VITALS: PULSE 72; RESP 18; TEMP 36.3
[2022-07-04] MEDS: ceFAZolin Sodium/Dextrose,Iso 2 GM/50 ML PIGGYBACK IV ×2 (12:12→20:08)
[2022-07-04] MEDS: Insulin Lispro 100 UNIT/ML 3 ML VIAL SUBCUT ×3 (12:30→20:10)
[2022-07-04] MEDS: Enoxaparin Sodium 40 MG/0.4 ML SYRINGE SUBCUT (12:32)
[2022-07-04 15:13] VITALS: BP 126/56; PULSE 71; RESP 18; TEMP 36.2; O2SAT 96
[2022-07-04 16:02] LABS: Glucose, Whole Blood 358 mg/dL (60-115)
[2022-07-04] MEDS: 0.9 % Sodium Chloride Flush 3 ML SYRINGE IVFLUSH ×2 (16:58→20:12)
--- NOTE | 2022-07-04 17:42 | HO.POSTANES ---
Post Anesthesia Evaluation Post Anesthesia Evaluation Vital Signs: Vital Signs Temp Pulse Resp BP Pulse Ox O2 Del Method 07/04/22 15:13 97.1 F 71 18 126/56 L 96 Room Air 07/04/22 12:00 97.4 F 72 18 07/04/22 08:00 97.0 F 80 18 151/77 H 97 Anesthesia: General Mental Status: Awake Pain Control: Satisfactory Nausea/Vomiting: None Hydration: Adequate Anesthesia-Related Issues: No Anes. Related Issues
[2022-07-04 19:00] VITALS: BP 140/72; PULSE 69; RESP 18; TEMP 36.4; O2SAT 96
[2022-07-04 19:28] LABS: Glucose, Whole Blood 221 mg/dL (60-115)
[2022-07-04] MEDS: Insulin Glargine,Hum.rec.anlog 100 UNIT/ML 10 ML VIAL 59 UNIT SUBCUT (20:10)
[2022-07-04] MEDS: traZODone HCL 100 MG TABLET 300 MG PO (20:11)
[2022-07-04] MEDS: OLANZapine 5 MG TABLET PO (20:11)
[2022-07-04] MEDS: Tamsulosin HCL 0.4 MG CAPSULE PO (20:11)
[2022-07-04] MEDS: Atorvastatin Calcium 40 MG TABLET PO (20:11)
[2022-07-04] MEDS: amLODIPine Besylate 10 MG TABLET PO (20:11)
[2022-07-04] MEDS: Melatonin 3 MG TABLET 6 MG PO (20:11)
[2022-07-04] MEDS: oxyCODONE HCl Immed Release 5 MG TABLET PO (20:12)
[2022-07-04] MEDS: Latanoprost 0.005 % Ophth Sol 2.5 ML DROPS 1 DROP EYE-LEFT (20:17)
[2022-07-04 23:36] VITALS: BP 108/53; PULSE 65; RESP 18; TEMP 36.1; O2SAT 97
[2022-07-05] MEDS: ceFAZolin Sodium/Dextrose,Iso 2 GM/50 ML PIGGYBACK IV ×3 (03:53→20:12)
[2022-07-05] MEDS: Acetaminophen 1,000 MG/100 ML PIGGYBACK 400 MG IV ×3 (03:53→22:38)
[2022-07-05] MEDS: Omeprazole 20 MG CAPSULE.DR PO (03:54)
--- NOTE | 2022-07-05 04:16 | PC.NURSE ---
Nurse went into patient room to give medication and flush IV. The patient requested water. The nurse replied I will get it as soon as i finish flushing your IV. While flushing the patient felt a sting from the IV. The nurse attempted to check the IV. The patient refused. The patient used belligerent language to tell the nurse to get out the room. Aid brought in the water for patient.
[2022-07-05 06:42] LABS: Creatinine Clr Calc Pharmacy 104.1; Estimated Glomerular Filt Rate > 60
[2022-07-05 08:00] VITALS: BP 130/62; PULSE 75; RESP 16; TEMP 36.9; O2SAT 94
[2022-07-05 08:19] LABS: Glucose, Whole Blood 111 mg/dL (60-115)
[2022-07-05] MEDS: Metoprolol Succinate ER 25 MG TAB.ER.24H PO (08:22)
[2022-07-05] MEDS: Loratadine 10 MG TABLET PO (08:23)
[2022-07-05] MEDS: lisinopriL 40 MG TABLET PO ×2 (08:23→20:19)
[2022-07-05] MEDS: Multivitamin TABLET 1 TAB PO (08:23)
[2022-07-05] MEDS: oxyCODONE HCl Immed Release 5 MG TABLET PO ×2 (08:23→23:22)
[2022-07-05] MEDS: Ferrous Sulfate 300 MG/5 ML LIQUID 150 MG PO (08:24)
[2022-07-05] MEDS: Dorzolamide/Timolo 2.23%/0.68% 10 ML DRBTL 1 DROP EYE-BOTH ×2 (08:24→20:22)
[2022-07-05] MEDS: Buprenorphine/Naloxone 8/2 mg FILM 1 FILM BUCCAL ×2 (08:24→20:19)
[2022-07-05] MEDS: Artificial Tears 15 ML DROPS 1 DROP EYE-BOTH ×2 (08:24→20:21)
[2022-07-05] MEDS: 0.9 % Sodium Chloride Flush 3 ML SYRINGE IVFLUSH ×3 (10:42→23:22)
[2022-07-05 11:15] VITALS: BP 132/69; PULSE 69; RESP 19; TEMP 36; O2SAT 97
[2022-07-05 11:22] LABS: Glucose, Whole Blood 295 mg/dL (60-115)
[2022-07-05] MEDS: Insulin Lispro 100 UNIT/ML 3 ML VIAL SUBCUT ×3 (11:34→20:15)
[2022-07-05] MEDS: Enoxaparin Sodium 40 MG/0.4 ML SYRINGE SUBCUT (11:36)
--- NOTE | 2022-07-05 11:54 | P.PNIM_ITS ---
Subjective Subjective Date of Service: 07/05/22 Interval History: seen and examined this morning follow up for left ankle infection denies fever, chills having pain left ankle tolerating diet; no BM for few days Review of Systems Review of Systems: Yes all other systems are reviewed and are negative Constitutional Constitutional: Denies chills and Denies fever(s) Cardiovascular Cardiovascular: Denies chest pain, Denies palpitations and Denies dyspnea Respiratory Respiratory: Denies cough and Denies dyspnea Gastrointestinal Gastrointestinal: Denies abdominal pain, Reports constipation, Denies nausea and Denies vomiting Endocrine Endocrine: Denies palpitations Physical Exam Vital Signs: Vital Signs: Last Vital Signs Temp 96.8 F 07/05/22 11:15 Pulse 69 07/05/22 11:15 Resp 19 07/05/22 11:15 BP 132/69 07/05/22 11:15 Pulse Ox 97 07/05/22 11:15 O2 Del Method 07/05/22 11:15 O2 Flow Rate 2 07/03/22 15:34 BMI result Body Mass Index 29.5 Const: General: cooperative, comfortable, no acute distress, alert and awake Nutritional Appearance: average body habitus Orientation/consciousness: patient oriented x3 Resp: Effort & Inspection: normal respiratory effort and able to speak in complete sentences Cardio: Rate: regular rate Heart sounds: S1 normal heart sound present and S2 normal heart sound present GI: Inspection: No distended Palpation (GI): Soft to palpation Neuro: General: patient oriented x3 and CN's II-XI intact bilaterally Extrem: Other: left foot/ankle wrapped in ilene bandage Objective Data Active Medications Acetaminophen (Acetaminophen 325 Mg Tablet) 650 mg PO Q6H PRN PRN Reason: Pain, Mild (Pain Scale 1-3) Last Admin: 07/01/22 17:46 Dose: 650 mg Documented By: ERA Amlodipine Besylate (Amlodipine Besylate 10 Mg Tablet) 10 mg PO BEDTIME [facility]; Protocol Last Admin: 07/04/22 20:11 Dose: 10 mg Documented By: ESA Artificial Tears (Artificial Tears 15 Ml Drops) 1 drop EYE-BOTH QID [facility] Last Admin: 07/05/22 08:24 Dose: 1 drop Documented By: BRYSON Atorvastatin Calcium (Atorvastatin Calcium 40 Mg Tablet) 40 mg PO BEDTIME [facility] Last Admin: 07/04/22 20:11 Dose: 40 mg Documented By: ESA Buprenorphine/Naloxone (Buprenorphine/Naloxone 8/2 Mg Film) 1 film BUCCAL BID [facility] Last Admin: 07/05/22 08:24 Dose: 1 film Documented By: BRYSON Dextrose (Dextrose 50 % 25 Gm/50 Ml Syringe) 25 gm IVPUSH Q15M PRN; Protocol PRN Reason: per Hypoglycemia Standing Ord. Docusate Sodium (Docusate Sodium 100 Mg Capsule) 100 mg PO BEDTIME [facility] Dorzolamide/Timolol (Dorzolamide/Timolo 2.23%/0.68% 10 Ml Drbtl) 1 drop EYE- BOTH BID [facility] Last Admin: 07/05/22 08:24 Dose: 1 drop Documented By: BRYSON Enoxaparin Sodium (Enoxaparin Sodium 40 Mg/0.4 Ml Syringe) 40 mg SUBCUT Q24H [facility] Last Admin: 07/05/22 11:36 Dose: 40 mg Documented By: BRYSON Ferrous Sulfate (Ferrous Sulfate 300 Mg/5 Ml Liquid) 150 mg PO DAILY [facility] Last Admin: 07/05/22 08:24 Dose: 150 mg Documented By: BRYSON Glucose (Glucose Gel 15 Gm Gel..Gram.) 15 gm PO Q15M PRN; Protocol PRN Reason: per Hypoglycemia Standing Ord. Acetaminophen (Ofirmev) 1,000 mg in 100 mls @ 400 mls/hr IV Q6H [facility] Last Admin: 07/05/22 10:55 Dose: Not Given Documented By: BRYSON Non-Admin Reason: No Access Cefazolin Sodium/Dextrose (Ancef) 2 gm in 50 mls @ 100 mls/hr IV Q8H [facility] Last Infusion: 07/05/22 05:52 Dose: 0 mls/hr Documented By: ESA Insulin Glargine (Insulin Glargine,Hum.Rec.Anlog 100 Unit/Ml 10 Ml Vial) 59 unit SUBCUT BEDTIME [facility] Last Admin: 07/04/22 20:10 Dose: 59 unit Documented By: ESA Insulin Human Lispro (Insulin Lispro 100 Unit/Ml 3 Ml Vial) 0 unit SUBCUT QIDACHS [facility]; Protocol Last Admin: 07/05/22 11:34 Dose: 6 unit Documented By: BRYSON Latanoprost (Latanoprost 0.005 % Ophth Yari 2.5 Ml Drops) 1 drop EYE-LEFT BEDTIME [facility] Last Admin: 07/04/22 20:17 Dose: 1 drop Documented By: ESA Lisinopril (Lisinopril 40 Mg Tablet) 40 mg PO BID [facility]; Protocol Last Admin: 07/05/22 08:23 Dose: 40 mg Documented By: BRYSON Loratadine (Loratadine 10 Mg Tablet) 10 mg PO DAILY [facility] Last Admin: 07/05/22 08:23 Dose: 10 mg Documented By: BRYSON Melatonin (Melatonin 3 Mg Tablet) 6 mg PO BEDTIME PRN PRN Reason: Insomnia Last Admin: 07/04/22 20:11 Dose: 6 mg Documented By: ESA Metoprolol Succinate (Metoprolol Succinate Er 25 Mg Tab.Er.24h) 25 mg PO DAILY [facility]; Protocol Last Admin: 07/05/22 08:22 Dose: 25 mg Documented By: BRYSON Morphine Sulfate (Morphine Sulfate 2 Mg/Ml Cartridge) 2 mg IVPUSH Q2H PRN; Protocol PRN Reason: severe pain Last Admin: 07/03/22 17:27 Dose: 2 mg Documented By: NIKITA Multivitamins/Vitamin C (Multivitamin Tablet) 1 tab PO DAILY [facility] Last Admin: 07/05/22 08:23 Dose: 1 tab Documented By: BRYSON Olanzapine (Olanzapine 5 Mg Tablet) 5 mg PO BEDTIME [facility] Last Admin: 07/04/22 20:11 Dose: 5 mg Documented By: ESA Omeprazole (Omeprazole 20 Mg Capsule.) 20 mg PO DAILY@0630 [facility] Last Admin: 07/05/22 03:54 Dose: 20 mg Documented By: ESA Ondansetron HCl (Ondansetron Hcl 4 Mg/2 Ml Vial) 4 mg IVPUSH Q8H PRN PRN Reason: Nausea and Vomiting Last Admin: 07/02/22 15:14 Dose: 4 mg Documented By: ERA Ondansetron HCl (Ondansetron Hcl 4 Mg/2 Ml Vial) 4 mg IVPUSH ONCE PRN PRN Reason: Nausea and Vomiting Oxybutynin Chloride (Oxybutynin Chloride Er 5 Mg Tab.Er.24) 5 mg PO DAILY [facility] Last Admin: 07/05/22 08:23 Dose: 5 mg Documented By: BRYSON Oxycodone HCl (Oxycodone Hcl Immed Release 5 Mg Tablet) 5 mg PO Q4H PRN PRN Reason: moderate pain Last Admin: 07/05/22 08:23 Dose: 5 mg Documented By: BRYSON Pharmacy Consult (Consult Rx Perform Med Rec) 1 each MISCELLANE ONCE PRN PRN Reason: Consult order Pharmacy Consult (Consult Rx Vancomycin Dosing) 1 each MISCELLANE DAILY PRN PRN Reason: Consult order Polyethylene Glycol (Polyethylene Glycol 3350 17 Gm Powd.Pack) 17 gm PO DAILY PRN PRN Reason: Constipation Sodium Chloride (0.9 % Sodium Chloride Flush 3 Ml Syringe) 3 ml IVFLUSH QSHIFT [facility] Last Admin: 07/05/22 10:42 Dose: 3 ml Documented By: BRYSON Tamsulosin HCl (Tamsulosin Hcl 0.4 Mg Capsule) 0.4 mg PO BEDTIME [facility] Last Admin: 07/04/22 20:11 Dose: 0.4 mg Documented By: ESA Trazodone HCl (Trazodone Hcl 100 Mg Tablet) 300 mg PO BEDTIME [facility] Last Admin: 07/04/22 20:11 Dose: 300 mg Documented By: ESA Labs CBC & Chem 7: 07/04/22 05:48 07/05/22 05:53 Labs: Laboratory Results - last 24 hr 07/04/22 07/04/22 07/05/22 15:15 19:23 05:53 Estim Creat Clear Calc 104.1 Estimated GFR > 60 POC Glucose 358 H* 221 H 07/05/22 07/05/22 08:12 11:15 Estim Creat Clear Calc Estimated GFR POC Glucose 111 295 H Microbiology Microbiology Results: Microbiology 06/30/22 08:28 Blood Culture - Final Blood - Venous No growth after 5 days. 06/30/22 07:56 Blood Culture - Final Blood - Venous No growth after 5 days. 07/03/22 Unknown Gram Stain - Final Ankle Aspirate - Aspirate Routine Culture - Final Staphylococcus aureus Anaerobic Culture - Preliminary Culture in progress. 07/03/22 Unknown Gram Stain - Final Ankle Left Routine Culture - Final Staphylococcus aureus Assessment and Plan (1) Cellulitis and abscess of left leg: Status: Acute (2) S/P hardware removal: Status: Acute Plan This is a 71-year-old male with a pertinent history of insulin-dependent diabetes, essential hypertension, opioid use disorder, mixed hyperlipidemia, mood disorder, BPH, prior bimalleolar fracture presents to the emergency department for evaluation of left ankle swelling and pain. Left ankle cellulitis/abscess. wbc trending down s/p Removal of hardware and I&D of superficial abscess 07/03 wound culture growing staph aureus sensitive to oxacillin Continue IV kefzol - likely change to po doxy on discharge for at least two months per ID Lactic acidosis resolved with IV fluid resuscitation Hypomagnesemia replaced Opioid use disorder continue suboxone Mood disorder continue trazodone and Zyprexa Essential hypertension continue home p.o. medications BPH continue Flomax and oxybutynin Insulin-dependent type 2 diabetes mellitus with hyperglycemia hold glipizide Continue home Lantus, POCs with sliding scale insulin Chronic normocytic anemia H/H stable DVT prophylaxis: lovenox Full code Attending-Dr. Dobbins Requires ongoing inpatient hospitalization for IV antibiotics for treatment of ankle infection Quality Stroke Does the patient have a stroke diagnosis?: No VTE Prior VTE?: No VTE Risk Level:: Medical - moderate - high VTE Device Contraindication: Treatment Not Indicated VTE Drug Contraindication: N/A - Med Ordered
[2022-07-05 15:01] VITALS: BP 147/67; PULSE 70; RESP 18; TEMP 36.6; O2SAT 97
[2022-07-05 16:08] LABS: Glucose, Whole Blood 370 mg/dL (60-115)
--- NOTE | 2022-07-05 16:49 | PC.NURSE ---
BS 370 ,[place] Chelsey Kumari made aware
[2022-07-05 19:20] VITALS: BP 150/72; PULSE 72; RESP 18; TEMP 36.4; O2SAT 96
[2022-07-05 19:47] LABS: Glucose, Whole Blood 289 mg/dL (60-115)
[2022-07-05] MEDS: Insulin Glargine,Hum.rec.anlog 100 UNIT/ML 10 ML VIAL 59 UNIT SUBCUT (20:16)
[2022-07-05] MEDS: Atorvastatin Calcium 40 MG TABLET PO (20:18)
[2022-07-05] MEDS: OLANZapine 5 MG TABLET PO (20:18)
[2022-07-05] MEDS: amLODIPine Besylate 10 MG TABLET PO (20:18)
[2022-07-05] MEDS: Tamsulosin HCL 0.4 MG CAPSULE PO (20:18)
[2022-07-05] MEDS: traZODone HCL 100 MG TABLET 300 MG PO (20:18)
[2022-07-05] MEDS: Docusate Sodium 100 MG CAPSULE PO (20:18)
[2022-07-05] MEDS: Latanoprost 0.005 % Ophth Sol 2.5 ML DROPS 1 DROP EYE-LEFT (20:22)
[2022-07-06] VITALS: BP 132/62; PULSE 66; RESP 18; TEMP 36.5; O2SAT 97
[2022-07-06] MEDS: ceFAZolin Sodium/Dextrose,Iso 2 GM/50 ML PIGGYBACK IV ×2 (03:58→12:37)
[2022-07-06 03:59] VITALS: BP 128/65; PULSE 70; RESP 16; TEMP 36.7; O2SAT 96
[2022-07-06] MEDS: Omeprazole 20 MG CAPSULE.DR PO (05:30)
[2022-07-06] MEDS: Acetaminophen 1,000 MG/100 ML PIGGYBACK 400 MG IV ×2 (05:32→11:54)
[2022-07-06 06:32] LABS: MANUAL DIFF FLAG NO
[2022-07-06 06:37] LABS: Basophils Percent Auto 0.4 % (0-2); Eosinophils Absolute Auto 0.2 X10*3/uL (0.0-0.4); Eosinophils Percent Auto 1.8 % (0-4); Hematocrit 31.7 % (42.0-52.0); Hemoglobin 9.9 g/dl (14.0-18.0); Imm Gran Abs Auto 0.12 X10*3/uL (0.00-0.03); Imm Gran Pct Auto 1.4 % (0.0-0.4); Lymphocytes Absolute Auto 2.7 X10*3/uL (1.2-4.9); Lymphocytes Percent Auto 31.3 % (20-40); Mean Corpuscular HGB Conc 31.2 g/dl (31.0-36.0); Mean Corpuscular Volume 83.2 fL (80.0-98.0); Mean Platelet Volume 8.5 fL (9.4-12.4); Monocytes Absolute Auto 0.7 X10*3/uL (0.1-1.2); Neutrophils Absolute Auto 4.9 x10*3/uL (2.0-8.3); Neutrophils Percent Auto 57.1 % (45-73); Platelet Count 456 X10*3/uL (160-400); Red Blood Count 3.81 X10*6/uL (4.60-5.80); Red Cell Distribution Width 14.1 % (11.0-16.0); White Blood Count 8.5 X10*3/uL (4.8-10.8)
[2022-07-06 06:49] LABS: Anion Gap 15 (12-20); Blood Urea Nitrogen 9 mg/dL (9-16); Calcium 8.7 mg/dL (8.4-10.2); Carbon Dioxide 27 mmol/L (22-29); Chloride 97 mmol/L (96-108); Creatinine Clr Calc Pharmacy 96.8; Estimated Glomerular Filt Rate > 60; Glucose Random 212 mg/dL (60-115); Potassium 4.1 mmol/L (3.3-5.1); Sodium 135 mmol/L (135-145)
[2022-07-06 07:38] VITALS: BP 167/84; PULSE 68; RESP 18; TEMP 36.6; O2SAT 98
--- NOTE | 2022-07-06 07:44 | PM.EVENT ---
Event Note Date of Service: 07/06/22 Event Note: Cultures came back + for staph aureus. I spoke with Dr. Alan how has recommended lifelong doxycycline PO. Patient should remain NWB LLE. anticipate D/C later today. He should f/u with orthopedics in one week. Daily dressing changes.
[2022-07-06 07:52] LABS: Glucose, Whole Blood 190 mg/dL (60-115)
--- NOTE | 2022-07-06 08:10 | PM.PNORT ---
Subjective Subjective Date of Service: 07/06/22 Interval history: POD3 s/p JULIENNE left ankle. Patient is sitting in the wheelchair at bedside. Pain is managed. No overnight events. No additional complaints. Physical Exam Vital Signs: Vital Signs: Last Vital Signs Temp 97.9 F 07/06/22 07:38 Pulse 68 07/06/22 07:38 Resp 18 07/06/22 07:38 BP 167/84 H 07/06/22 07:38 Pulse Ox 98 07/06/22 07:38 O2 Del Method 07/06/22 07:38 O2 Flow Rate 2 07/03/22 15:34 BMI result Body Mass Index 29.5 Const: General: cooperative, healthy appearing and no acute distress Resp: Effort & Inspection: normal respiratory effort and able to speak in complete sentences Cardio: Rate: regular rate Peripheral pulses: Peripheral pulses 2+ throughout GI: Palpation (GI): Soft to palpation Skin: Lesions: no lesions Rashes: no rashes Extrem: Other: Left ankle dressings are c/d/i. Sensation intact. Pedal pulse intact. Able to slightly dorsiflex and plantarflex. Procedures Date of Service Date of Service: 07/06/22 Progress Note: A&P Assessment and plan (1) Cellulitis and abscess of left leg: Status: Acute Assessment and Plan: Pain mgmnt Spoke with ID this morning - recommending lifelong doxycyline PO NWB LLE Dispo planning- Plan for D/C later today from ortho perspective. (2) Left ankle swelling: Status: Acute (3) Post-traumatic arthritis of left ankle: Status: Acute (4) S/P hardware removal: Status: Acute Time Spent With Patient Time: Total time spent is greater than 50% in coordination of care (as documented) at patient's floor/unit and/or counseling patient: Quality Stroke Does the patient have a stroke diagnosis?: No VTE Prior VTE?: No VTE Risk Level:: Medical - moderate - high VTE Device Contraindication: Treatment Not Indicated VTE Drug Contraindication: N/A - Med Ordered
[2022-07-06] MEDS: Morphine Sulfate 2 MG/ML CARTRIDGE IVPUSH (08:21)
[2022-07-06] MEDS: Multivitamin TABLET 1 TAB PO (08:26)
[2022-07-06] MEDS: lisinopriL 40 MG TABLET PO (08:26)
[2022-07-06] MEDS: Metoprolol Succinate ER 25 MG TAB.ER.24H PO (08:27)
[2022-07-06] MEDS: Insulin Lispro 100 UNIT/ML 3 ML VIAL SUBCUT ×2 (08:27→11:53)
[2022-07-06] MEDS: Ferrous Sulfate 300 MG/5 ML LIQUID 150 MG PO (08:27)
[2022-07-06] MEDS: Loratadine 10 MG TABLET PO (08:27)
[2022-07-06] MEDS: Artificial Tears 15 ML DROPS 1 DROP EYE-BOTH ×2 (08:28→12:45)
[2022-07-06] MEDS: Dorzolamide/Timolo 2.23%/0.68% 10 ML DRBTL 1 DROP EYE-BOTH (08:28)
[2022-07-06] MEDS: Buprenorphine/Naloxone 8/2 mg FILM 1 FILM BUCCAL (08:28)
[2022-07-06] MEDS: 0.9 % Sodium Chloride Flush 3 ML SYRINGE IVFLUSH (08:29)
[2022-07-06 11:37] VITALS: BP 141/74; PULSE 69; RESP 18; TEMP 36.2; O2SAT 96
[2022-07-06 11:48] LABS: Glucose, Whole Blood 312 mg/dL (60-115)
[2022-07-06] MEDS: Enoxaparin Sodium 40 MG/0.4 ML SYRINGE SUBCUT (11:54)
--- NOTE | 2022-07-06 12:37 | P.DS_ITS ---
DS: Providers Provider Date of Service: 07/06/22 Date of admission: 06/30/22 14:37 Primary care physician: Jax Moe MD Consults: 06/30/22 13:07 Consult to Orthopedics Routine Consulting Provider: Courtney Villarreal Reason for consultation: L ankle infection Has provider been notified: Yes 06/30/22 14:39 Consult to Infectious Diseases Routine Consulting Provider: Maryellen Alan Reason for consultation: ?septic arthritis Has provider been notified: No 07/04/22 10:27 Consult to Infectious Diseases Stat Consulting Provider: Maryellen Alan Reason for consultation: reconsult s/p ankle removal of hardware Attending physician on discharge: Ross Kirby Discharging clinician: Jewels Bolanos DS: Diagnosis Discharge Diagnosis (1) Cellulitis and abscess of left leg: Status: Acute (2) Left ankle swelling: Status: Acute (3) Post-traumatic arthritis of left ankle: Status: Acute (4) S/P hardware removal: Status: Acute DS: Summary Hospital Course Hospital Course: HP as per admitting provider This is a 71-year-old male with a pertinent history of insulin-dependent diabetes, essential hypertension, opioid use disorder, mixed hyperlipidemia, mood disorder, BPH, prior bimalleolar fracture presents to the emergency department for evaluation of left ankle swelling and pain.? Patient states he 1st noticed left ankle swelling and pain 2 days prior to presentation.? Patient has VNA at home told him to go to the ER for further evaluation.? Patient denies fever, chills, nausea, vomiting.? He does not know if he has had previous infections.? Patient denies chest discomfort, shortness of breath, palpitations, abdominal discomfort or changes in urinary or bowel habits. In the emergency department, patient was found to have leukocytosis, lactic acidosis and elevated CRP and ESR.? Imaging with concerns for septic arthritis . Left ankle cellulitis/abscess. wbc trending down s/p Removal of hardware and I&D of superficial abscess 07/03 wound culture growing staph aureus sensitive to oxacillin Treated with IV kefzol, changed to oral doxycycline indefinitely Lactic acidosis resolved with IV fluid resuscitation Hypomagnesemia replaced Opioid use disorder continue suboxone Mood disorder continue trazodone and Zyprexa Essential hypertension continue home p.o. medications BPH continue Flomax and oxybutynin Insulin-dependent type 2 diabetes mellitus with hyperglycemia continue home medications Chronic normocytic anemia H/H stable Time Spent with Patient Time attestation: Total time spent providing and/or coordinating discharge services: Discharge coordination time: Greater than 30 minutes Quality: Safe Use of Opioids Does Pt have an Active Cancer Diagnosis on the Problem List?: No Quality: Stroke Does the patient have a stroke diagnosis?: No Physical Exam Vital Signs: Vital Signs: Last Vital Signs Temp 97.2 F 07/06/22 11:37 Pulse 69 07/06/22 11:37 Resp 18 07/06/22 11:37 BP 141/74 H 07/06/22 11:37 Pulse Ox 96 07/06/22 11:37 O2 Del Method 07/06/22 11:37 O2 Flow Rate 2 07/03/22 15:34 BMI result Body Mass Index 29.5 Appearing in no acute distress head is normocephalic atraumatic eyes pupils are PERRLA sclera is anicteric mouth throat mucous membranes are intact and moist neck is supple no lymphadenopathy, no JVD noted lung sounds are clear to auscultation heart regular rate rhythm, clear S1, S2 positive bowel sounds, abdomen is soft, nontender neuro patient is alert x3, no focal deficits DS: Data Data Completed and Pending Completed studies during hospitalization [Text1]: Procedures Immobilization of Left Foot using Splint (01/27/22) Insertion of Infusion Device into Superior Vena Cava, Percutaneous Approach (02/13/22) Reposition Left Fibula with Internal Fixation Device, Open Approach (01/27/22) Reposition Left Tibia with Internal Fixation Device, Open Approach (01/27/22) Ultrasonography of Superior Vena Cava, Guidance (02/13/22) Pending studies at discharge: Pending at discharge 07/03/22 14:11 Surgical [PTH] Routine Labs on day of discharge: Laboratory Results - last 24 hr 07/05/22 07/05/22 07/06/22 15:05 19:27 06:04 WBC 8.5 RBC 3.81 L Hgb 9.9 L Hct 31.7 L MCV 83.2 MCH 26.0 L MCHC 31.2 RDW 14.1 Plt Count 456 H MPV 8.5 L Immature Gran % (Auto) 1.4 H Neut % (Auto) 57.1 Lymph % (Auto) 31.3 [place] % (Auto) 8.0 Eos % (Auto) 1.8 Baso % (Auto) 0.4 Lymph # (Auto) 2.7 [place] # (Auto) 0.7 Eos # (Auto) 0.2 Baso # (Auto) 0.0 Abs Immat Gran (auto) 0.12 H Absolute Neuts (auto) 4.9 Absolute Nucleated RBC 0.000 Nucleated RBC % (auto) 0.0 Sodium Potassium Chloride Carbon Dioxide Anion Gap BUN Creatinine Estim Creat Clear Calc Estimated GFR POC Glucose 370 H* 289 H Random Glucose Calcium 07/06/22 07/06/22 07/06/22 06:04 07:40 11:36 WBC RBC Hgb Hct MCV MCH MCHC RDW Plt Count MPV Immature Gran % (Auto) Neut % (Auto) Lymph % (Auto) [place] % (Auto) Eos % (Auto) Baso % (Auto) Lymph # (Auto) [place] # (Auto) Eos # (Auto) Baso # (Auto) Abs Immat Gran (auto) Absolute Neuts (auto) Absolute Nucleated RBC Nucleated RBC % (auto) Sodium 135 Potassium 4.1 Chloride 97 Carbon Dioxide 27 Anion Gap 15 BUN 9 Creatinine 0.71 Estim Creat Clear Calc 96.8 Estimated GFR > 60 POC Glucose 190 H 312 H Random Glucose 212 H D Calcium 8.7 Preliminary micro results at discharge 07/03/22 Unknown Anaerobic Culture - Preliminary Ankle Aspirate - Aspirate Culture in progress. Discharge Plan Discharge Anticipated Discharge Date/Time: 07/06/22 12:27 Patient Disposition: Home Health Service Discharge Diagnosis: Left ankle cellulitis/abscess status post hardware removal with I and D of superficial abscess Lactic acidosis Hypomagnesemia Referrals: Jax Moe MD [Primary Care Provider] - 1 Week Maryellen Alan MD [Physician] - 1 Week (Follow-up for doxycycline management) Discharge Medications: New doxycycline hyclate 100 mg tablet 100 mg PO BID Qty: 60 0RF Continued ferrous sulfate 15 mg iron (75 mg)/mL drops 2 ml PO DAILY 30 Days Qty: 60 4RF omeprazole 20 mg capsule,delayed release(DR/EC) 20 mg PO DAILY 90 Days Qty: 90 1RF latanoprost 0.005 % drops 1 drp ophthalmic-Left BEDTIME atorvastatin 40 mg tablet 40 mg PO BEDTIME glipizide 5 mg tablet extended release 24hr 5 mg PO DAILY metformin 1,000 mg tablet 1,000 mg PO BID dorzolamide-timolol 22.3-6.8 mg/mL drops 1 drp ophthalmic (eye) BID Dry Eye Relief 1-0.2-0.2 % drops 1 drp ophthalmic (eye) QID Levemir U-100 Insulin 100 unit/mL solution 84 unit subcut BEDTIME Fish Oil 340-1,000 mg capsule 1 cap PO TID Certavite-Antioxidant 18-400 mg-mcg tablet 1 tab PO DAILY trazodone 150 mg tablet 300 mg PO BEDTIME buprenorphine-naloxone 8-2 mg film 1 film buccal BID Qty: 30 0RF olanzapine 5 mg tablet 1 tab PO BEDTIME amlodipine 10 mg tablet 1 tab PO BEDTIME oxybutynin chloride 5 mg tablet extended release 24hr 1 tab PO DAILY lisinopril 40 mg tablet 40 mg PO BID metoprolol succinate 25 mg tablet extended release 24 hr 25 mg PO DAILY loratadine 10 mg tablet 10 mg PO DAILY tamsulosin 0.4 mg capsule 0.4 mg PO BEDTIME 90 Days Qty: 90 3RF Discharge Orders: Discharge Order (Routine); Ordered 07/06/22 Ordered By: Jewels Bolanos Diet: Advance to usual diet Activity on Discharge: As tolerated Stand Alone Forms: Patient Portal Discharge page Activity Restrictions/Additional Instructions: Keep dressings clean, dry, and intact Elevate throughout the day Daily dressing changes as needed. Call [facility] [place] orth[place]ics with any questions or concerns. Oral doxycycline daily Nonweightbearing LLE Follow up with orthopedics in 7-10 days post op Care Plan Goals: Placed on doxycycline for the indefinite future Health Concerns: Left ankle cellulitis/abscess status post hardware removal with I and D of superficial abscess Lactic acidosis Hypomagnesemia Plan of Treatment: Take all medications as prescribed Follow-up with primary care provider as needed Follow-up with Orthopedic surgery Assessment: See discharge summary
--- NOTE | 2022-07-06 12:40 | P.F2F_ITS ---
Service Date Service Date: 07/06/22 Encounter Date of encounter: 07/06/22 Reasons for Services Signs and symptoms assessed: Left ankle cellulitis/abscess status post I&D as per Orthopedic surgery Reason for long-term: CV/CP assess and/or care Reason for physical therapy: home safety and mobility Homebound: Leaving the home is medically contraindicated at this time without the asist of a device and/or another person due th the listed conditions above and below. Reason homebound: unsteady gait / fall risk Certification: Based on the above findings, I certify that this patient is confined to the home and needs intermittent long-term care, physical therapy and/or speech therapy, or continues to need occupational therapy. The patient is under my care, and I have initiated the establishment of the plan of care. The patient will be followed by a physician who will periodically review the plan of care.
--- NOTE | 2022-07-06 15:42 | MHC.CM.PN ---
PATIENT IS DC HOME PRIOR TO MEETING WITH CASE MANAGEMENT. [facility] REFERR[facility] PLAC[facility] PATIENT WAS REPORTEDLY ACTIVE WITH THEM.
--- NOTE | 2022-07-22 10:54 | P.OP_ITS ---
Operative Note Operative Note Date of Service: 07/03/22 Narrative: Date of Service: 07/03/22 Pre-op diagnosis: Failed ORIF left ankle Superficial abcess left ankle Procedure: Removal of hardware left ankle I&D left ankle abcess Surgeon: Jigar Lee MD Anesthesia: GETA Was an Plant Floor Automation Manager used for this Procedure?: No Estimated blood loss (mL): 5 Tourniquet time (min): 25 IV fluids (mL): 500 Pathology: other Condition: stable Disposition: PACU Procedure in detail: Patient was brought to the operating room and placed supine on the operative table. All bony prominences were well padded and a time-out was called to identify proper site proper procedure proper surgeon. IV antibiotics per weight were administered. I began by insufflating the tourniquet to 300 mm Hg. I made a 1 cm incision over the 3cm x 3 cm area of fluctuance proximal to the medial malleolus. There was a small pocket of purulence here but there was no deep tracking. It was extremely superficial. I irrigated and left open. I then made a 1 cm incision distal to the area of superficial infection and removed the two medial malleolar screws. There was no evidence of screw loosening or deep infection. I then irrigatred and closed the incision with nylon. Sterile dressings were applied and the tourniquet was let down and the patient was extubated brought to recovery room in stable condition there were no known complications.
== END 2022-07-06 14:10 | disposition home health service (06) | DRG 493 ==
LOC: HO.ED 13:07 → HO.EDOVER 14:40 → HO.S3 07-01 11:26
PROVIDERS: Orthopaedic Surgery; Physician Assistant Medical; Admitting Provider Student in an Organized Health Care Education/Training Program; Emergency Provider Emergency Medicine; PCP Internal Medicine; Visit Provider Nurse Practitioner Acute Care
PROC: 0SPG04Z Removal of Internal Fixation Device from Left Ankle Joint, Open Approach (ICD-10-PCS; principal; 2022-07-03 13:30)
DX: T84.625A Infection and inflammatory reaction due to internal fixation device of left fibula, initial encounter (principal); E87.20 Acidosis, unspecified; F11.20 Opioid dependence, uncomplicated; L02.416 Cutaneous abscess of left lower limb; L03.116 Cellulitis of left lower limb; Y79.8 Miscellaneous orthopedic devices associated with adverse incidents, not elsewhere classified; I25.10 Atherosclerotic heart disease of native coronary artery without angina pectoris; E78.2 Mixed hyperlipidemia; N40.0 Benign prostatic hyperplasia without lower urinary tract symptoms; E11.65 Type 2 diabetes mellitus with hyperglycemia; J44.9 Chronic obstructive pulmonary disease, unspecified; I10 Essential (primary) hypertension; D64.9 Anemia, unspecified; E83.42 Hypomagnesemia; F43.10 Post-traumatic stress disorder, unspecified; M19.172 Post-traumatic osteoarthritis, left ankle and foot; B95.61 Methicillin susceptible Staphylococcus aureus infection as the cause of diseases classified elsewhere; G47.33 Obstructive sleep apnea (adult) (pediatric); F17.210 Nicotine dependence, cigarettes, uncomplicated; Z71.6 Tobacco abuse counseling; Z20.822 Contact with and (suspected) exposure to COVID-19; Z79.84 Long term (current) use of oral hypoglycemic drugs; Z79.899 Other long term (current) drug therapy
CPT/HCPCS: 36415; 73610; 73701; 80048; 80076; 80202; 80307; 82565; 82947; 83036; 83605; 83735; 85025; 85027; 85610; 85652; 86140; 87040; 87070; 87073; 87077; 87186; 87205; 87635; 88304; 88307; 88311; 93971; 97161; 99284; J0131; J0690; J0692; J1170; J1650; J2270; J2405; J2543; J2795; J3010; J3370; J3475; Q9967

== ENCOUNTER → 2022-07-09 10:10 | Outpatient (BNVA) | payer OTHER, SELFPAY | PROVIDERS: PCP Internal Medicine; Visit Provider Urology | DX: N48.33 Priapism, drug-induced (principal) | CPT/HCPCS: 99212 ==

== ENCOUNTER → 2022-07-22 09:15 | Outpatient (BNVA) | payer OTHER, SELFPAY | PROVIDERS: PCP Internal Medicine; Visit Provider Urology | DX: N48.33 Priapism, drug-induced (principal); T50.905A Adverse effect of unspecified drugs, medicaments and biological substances, initial encounter | CPT/HCPCS: 99212 ==

== ENCOUNTER → 2022-08-26 13:17 | Outpatient (BNVA) | payer OTHER, SELFPAY | PROVIDERS: PCP Internal Medicine; Visit Provider Internal Medicine | DX: T81.49XD Infection following a procedure, other surgical site, subsequent encounter (principal); R78.81 Bacteremia; B95.61 Methicillin susceptible Staphylococcus aureus infection as the cause of diseases classified elsewhere | CPT/HCPCS: 99212 ==

== ENCOUNTER 2022-09-10 14:18 | Outpatient (REF) | payer OTHER, SELFPAY ==
--- NOTE | ~2022-09-10 | XR_ITS ---
EXAMINATION: XR ANKLE, LEFT CLINICAL INFORMATION: Pain. COMPARISON: Radiographs dated 07/03/2020; CT left ankle dated 06/30/2022. TECHNIQUE: AP, lateral, and mortise views of the left ankle. FINDINGS: There is bony demineralization. There is an ununited medial malleolus fracture. There is a screw tract noted within the medial malleolus. An orthopedic fixator plate and fixator screws are applied to the distal fibula. The distal fibular fracture appears healed. There is marked degenerative change of the tibiotalar joint. The ankle mortise appears intact. There is periosteal thickening of the distal tibia. There is generalized soft tissue swelling, without gas or foreign body. XR/XR ankle LT min 3V IMPRESSION: An ununited medial malleolus fracture is redemonstrated. An orthopedic plate and screws are applied to the distal left fibula, without hardware failure or loosening noted. No residual fibular fracture is seen. There are marked degenerative changes of the tibiotalar joint.
== END 2022-09-10 14:19 | disposition home or self-care (01) ==
LOC: HO.HOSX 14:18
PROVIDERS: Visit Provider Orthopaedic Surgery
DX: M19.172 Post-traumatic osteoarthritis, left ankle and foot (principal); Z98.890 Other specified postprocedural states
CPT/HCPCS: 73610; 99212

== ENCOUNTER 2022-11-18 11:28 | Outpatient (REF) | payer OTHER, SELFPAY ==
--- NOTE | ~2022-11-18 | XR_ITS ---
EXAMINATION: XR ANKLE, LEFT CLINICAL INFORMATION: Cellulitis of left ankle. Swelling. COMPARISON: Left ankle 09/10/2022 TECHNIQUE: AP, lateral, and mortise views of the left ankle. FINDINGS: There is old healed fibular fracture with lateral plate and screws in place. There is a healed medial malleolar fracture. There are hypertrophic bony changes along the ankle joint likely secondary to osteoarthritis. Irregular-appearing distal tibia and talar dome are noted likely bony erosive arthritic changes. There is periosteal thickening along the distal tibia. No recurrent acute fracture or dislocation suspected. No lucency seen to suspect any arthritis. There is a small calcaneal heel enthesophyte. XR/XR ankle LT min 3V IMPRESSION: 1. No acute fracture or dislocation. 2. There is old healing medial malleolar and fibular fractures with plate and screws in the distal fibula. There is periosteal thickening along the distal tibia. There is a small calcaneal heel enthesophyte. 3. Irregular-appearing ankle mortise joint space - question erosive osteoarthritis.
== END 2022-11-18 11:29 | disposition home or self-care (01) ==
LOC: HO.XRAY 11:28
PROVIDERS: PCP Internal Medicine; Visit Provider Internal Medicine
DX: L03.116 Cellulitis of left lower limb (principal)
CPT/HCPCS: 73610

== ENCOUNTER 2022-11-20 19:15 | Emergency (ER) | payer OTHER, SELFPAY ==
--- NOTE | ~2022-11-20 | XR_ITS ---
EXAMINATION: XR CHEST CLINICAL INFORMATION: Chest pain. Shortness of breath. COMPARISON: Chest x-ray 05/26/2022. CT chest 05/26/2022 TECHNIQUE: Frontal view of the chest was obtained. FINDINGS: No significant abnormality is noted involving the heart, lungs, mediastinum, bony thorax or soft tissues. XR/XR chest 1V IMPRESSION: Unremarkable examination.
[2022-11-20 19:26] VITALS: BP 140/76; PULSE 73; RESP 20; TEMP 36.4; O2SAT 95; BMI 31.3
--- NOTE | 2022-11-20 19:26 | ED_ITS ---
HPI - SOB/Dyspnea General Chief Complaint: Dyspnea Stated Complaint: Chest Pain/ Trble breathing/ chest congestion Related Data Home Medications Medication Instructions Recorded Confirmed lisinopril 40 mg tablet 40 mg PO BID 06/06/20 06/30/22 metoprolol succinate 25 mg 25 mg PO DAILY 06/06/20 06/30/22 tablet,extended release 24 hr atorvastatin 40 mg tablet 40 mg PO BEDTIME 03/26/21 06/30/22 dorzolamide 22.3 mg-timolol 6.8 1 drp ophthalmic (eye) BID 03/26/21 06/30/22 mg/mL eye drops glipizide 5 mg tablet, extended 5 mg PO DAILY 03/26/21 06/30/22 release 24 hr insulin detemir U-100 100 unit/mL 84 unit subcut BEDTIME 03/26/21 06/30/22 subcutaneous solution (Levemir U-100 Insulin) latanoprost 0.005 % eye drops 1 drp ophthalmic-Left BEDTIME 03/26/21 06/30/22 metformin 1,000 mg tablet 1,000 mg PO BID 03/26/21 06/30/22 omega-3 fatty acids-fish oil 340 1 cap PO TID 03/26/21 06/30/22 mg-1,000 mg capsule (Fish Oil) peg [id number] 1 1 drp ophthalmic (eye) QID 03/26/21 06/30/22 %-0.2 %-0.2 % eye drops (Dry Eye Relief) trazodone 150 mg tablet 300 mg PO BEDTIME 03/26/21 06/30/22 loratadine 10 mg tablet 10 mg PO DAILY 09/11/21 06/30/22 amlodipine 10 mg tablet 1 tab PO BEDTIME 06/30/22 06/30/22 olanzapine 5 mg tablet 1 tab PO BEDTIME 06/30/22 06/30/22 acetaminophen 500 mg tablet 1,000 mg PO Q8H PRN pain 07/09/22 alcohol swabs (Alcohol Prep Pads) 1 pad topical TID 07/09/22 blood sugar diagnostic (FreeStyle #10 ea 07/09/22 Lite Strips) insulin syringe-needle U-100 1 mL #10 ea 07/09/22 31 gauge x 5/16 lancets 33 gauge (TRUEplus Lancets) #100 ea 07/09/22 Previous Rx's Medication Instructions Recorded ferrous sulfate 15 mg iron (75 2 ml PO DAILY 30 days #60 mL 09/02/21 mg)/mL oral drops omeprazole 20 mg capsule,delayed 20 mg PO DAILY 90 days #90 caps 02/27/22 release buprenorphine 8 mg-naloxone 2 mg 1 film buccal BID #30 ea 03/04/22 sublingual film doxycycline hyclate 100 mg tablet 100 mg PO BID 30 days #60 tabs 08/17/22 multivitamin-ferrous 1 tab PO DAILY 09/28/22 fumarate-folic acid 18 mg-400 mcg tablet (Certavite-Antioxidant) omega-3 300 mg-dha 120 mg-epa 180 1 cap PO TID #90 caps 10/01/22 mg-fish oil 1,000 mg capsule omega-3 300 mg-dha 120 mg-epa 180 300 cap PO DAILY #90 caps 10/01/22 mg-fish oil 1,000 mg capsule oxybutynin chloride 5 mg 5 mg PO DAILY 90 days #90 tabs 10/09/22 tablet,extended release 24 hr tamsulosin 0.4 mg capsule 0.4 mg PO BEDTIME 90 days #90 caps 11/02/22 Allergies Allergy/AdvReac Type Severity Reaction Status Date / Time No Known Allergies Allergy Verified 09/10/22 13:02 [facility] Past Medical History Medical History Anxiety CAD (coronary artery disease) Chronic constipation COPD (chronic obstructive pulmonary disease) COPD (chronic obstructive pulmonary disease) Diabetes mellitus Genital herpes GERD (gastroesophageal reflux disease) History of adenomatous polyp of colon History of fracture of left ankle Hypertension Hypertension Opioid dependence Opioid dependence on agonist therapy JAUN (obstructive sleep apnea) Pancreatic abnormality Post-traumatic arthritis of left ankle Prepatellar bursitis, left knee Surgical History History of ankle surgery S/P hardware removal Family History Family History Mother No problems noted. Father Liver cancer Social History Social History Household Members: Spouse Housing: Apartment Do you presently have visiting nurse or other home services: Yes Alcohol intake: former Patient Tobacco Use Status: Current everyday Tobacco user Tobacco use type: Cigarette Cigarettes Per Day: 4 e-Cigarette/Vaping Use: Currently Using Second Hand Smoke Exposure: No Substance Use Type: Heroin Advance Directives: Yes Advance Directives on File: Yes Advance Directives Date on File: 01/28/22 service: No Current occupational status: retired and disabled Current occupation: right handed Physical Exam Vital Signs: Vital Signs: Last Vital Signs Temp 97.6 F 11/20/22 19:26 Pulse 73 11/20/22 19:26 Resp 20 11/20/22 19:26 BP 140/76 H 11/20/22 19:26 Pulse Ox 95 11/20/22 19:26 O2 Del Method Room Air 11/20/22 19:26 BMI result Body Mass Index 31.3 Course Course Course Narrative: STERLING--71-year-old male with a past medical history of CAD, COPD, diabetes, GERD, HTN, JAUN, presenting to ED complaining of SOB x few days and chest pain since 14:00. Denies pedal edema. Denies using inhalers at home Lungs with diminished breath sounds bibasilar, no appreciable pedal edema EKG, labs, CXR, COVID test ordered Medical Decision Making Lab Data 11/20/22 19:48 11/20/22 19:48 Labs: Lab Results 11/20/22 11/20/22 11/20/22 Range/Units 19:48 19:48 19:48 WBC 7.2 (4.8-10.8) X10*3/uL RBC 3.64 L (4.60-5.80) X10*6/uL Hgb 10.6 L (14.0-18.0) g/dl Hct 32.1 L (42.0-52.0) % MCV 88.2 (80.0-98.0) fL MCH 29.1 (27.0-33.0) pg MCHC 33.0 (31.0-36.0) g/dl RDW 13.9 (11.0-16.0) % Plt Count 355 (160-400) X10*3/uL MPV 8.9 L (9.4-12.4) fL Immature Gran % (Auto) 0.7 H (0.0-0.4) % Neut % (Auto) 62.7 (45-73) % Lymph % (Auto) 25.4 (20-40) % Cotton % (Auto) 8.0 (2-11) % Eos % (Auto) 2.8 (0-4) % Baso % (Auto) 0.4 (0-2) % Lymph # (Auto) 1.8 (1.2-4.9) X10*3/uL Cotton # (Auto) 0.6 (0.1-1.2) X10*3/uL Eos # (Auto) 0.2 (0.0-0.4) X10*3/uL Baso # (Auto) 0.0 (0.0-0.2) X10*3/uL Abs Immat Gran (auto) 0.05 H (0.00-0.03) X10*3/uL Absolute Neuts (auto) 4.5 (2.0-8.3) x10*3/uL Absolute Nucleated RBC 0.000 (0.0-0.012) X10*3/uL Nucleated RBC % (auto) 0.0 (0.0-0.2) /100WBC PT 12.4 (10.0-13.1) SEC INR 1.1 (0.9-1.1) Sodium 139 (135-145) mmol/L Potassium 4.7 (3.3-5.1) mmol/L Chloride 99 (96-108) mmol/L Carbon Dioxide 29 (22-29) mmol/L Anion Gap 16 (12-20) BUN 14 (9-16) mg/dL Creatinine 0.75 (0.5-1.4) mg/dL Estim Creat Clear Calc 94.2 Estimated GFR > 60 Random Glucose 99 (60-115) mg/dL Calcium 9.1 (8.4-10.2) mg/dL Magnesium 1.5 L (1.6-2.6) mg/dL Total Bilirubin 0.2 (0.0-1.0) mg/dL Direct Bilirubin < 0.2 (0.0-0.5) mg/dL AST 33 (5-37) U/L ALT 36 (0-40) U/L Alkaline Phosphatase 109 (39-117) U/L Troponin I High Sens (<3.5-35.0) ng/L B-Natriuretic Peptide (<100) pg/mL Total Protein 7.0 (6.5-8.0) g/dL Albumin 3.9 (3.5-5.0) g/dL COVID-19 (THANG) (Negative) COVID-19 Clin Com Influenza Type A (KEN) (Negative) Influenza Type B (KEN) (Negative) Influenza A & B Note 11/20/22 11/20/22 11/20/22 Range/Units 19:48 19:48 19:48 WBC (4.8-10.8) X10*3/uL RBC (4.60-5.80) X10*6/uL Hgb (14.0-18.0) g/dl Hct (42.0-52.0) % MCV (80.0-98.0) fL MCH (27.0-33.0) pg MCHC (31.0-36.0) g/dl RDW (11.0-16.0) % Plt Count (160-400) X10*3/uL MPV (9.4-12.4) fL Immature Gran % (Auto) (0.0-0.4) % Neut % (Auto) (45-73) % Lymph % (Auto) (20-40) % Cotton % (Auto) (2-11) % Eos % (Auto) (0-4) % Baso % (Auto) (0-2) % Lymph # (Auto) (1.2-4.9) X10*3/uL Cotton # (Auto) (0.1-1.2) X10*3/uL Eos # (Auto) (0.0-0.4) X10*3/uL Baso # (Auto) (0.0-0.2) X10*3/uL Abs Immat Gran (auto) (0.00-0.03) X10*3/uL Absolute Neuts (auto) (2.0-8.3) x10*3/uL Absolute Nucleated RBC (0.0-0.012) X10*3/uL Nucleated RBC % (auto) (0.0-0.2) /100WBC PT (10.0-13.1) SEC INR (0.9-1.1) Sodium (135-145) mmol/L Potassium (3.3-5.1) mmol/L Chloride (96-108) mmol/L Carbon Dioxide (22-29) mmol/L Anion Gap (12-20) BUN (9-16) mg/dL Creatinine (0.5-1.4) mg/dL Estim Creat Clear Calc Estimated GFR Random Glucose (60-115) mg/dL Calcium (8.4-10.2) mg/dL Magnesium (1.6-2.6) mg/dL Total Bilirubin (0.0-1.0) mg/dL Direct Bilirubin (0.0-0.5) mg/dL AST (5-37) U/L ALT (0-40) U/L Alkaline Phosphatase (39-117) U/L Troponin I High Sens < 3.5 (<3.5-35.0) ng/L B-Natriuretic Peptide 64 (<100) pg/mL Total Protein (6.5-8.0) g/dL Albumin (3.5-5.0) g/dL COVID-19 (THANG) Negative (Negative) COVID-19 Clin Com See Note Influenza Type A (KEN) (Negative) Influenza Type B (KEN) (Negative) Influenza A & B Note 11/20/22 Range/Units 19:48 WBC (4.8-10.8) X10*3/uL RBC (4.60-5.80) X10*6/uL Hgb (14.0-18.0) g/dl Hct (42.0-52.0) % MCV (80.0-98.0) fL MCH (27.0-33.0) pg MCHC (31.0-36.0) g/dl RDW (11.0-16.0) % Plt Count (160-400) X10*3/uL MPV (9.4-12.4) fL Immature Gran % (Auto) (0.0-0.4) % Neut % (Auto) (45-73) % Lymph % (Auto) (20-40) % Cotton % (Auto) (2-11) % Eos % (Auto) (0-4) % Baso % (Auto) (0-2) % Lymph # (Auto) (1.2-4.9) X10*3/uL Cotton # (Auto) (0.1-1.2) X10*3/uL Eos # (Auto) (0.0-0.4) X10*3/uL Baso # (Auto) (0.0-0.2) X10*3/uL Abs Immat Gran (auto) (0.00-0.03) X10*3/uL Absolute Neuts (auto) (2.0-8.3) x10*3/uL Absolute Nucleated RBC (0.0-0.012) X10*3/uL Nucleated RBC % (auto) (0.0-0.2) /100WBC PT (10.0-13.1) SEC INR (0.9-1.1) Sodium (135-145) mmol/L Potassium (3.3-5.1) mmol/L Chloride (96-108) mmol/L Carbon Dioxide (22-29) mmol/L Anion Gap (12-20) BUN (9-16) mg/dL Creatinine (0.5-1.4) mg/dL Estim Creat Clear Calc Estimated GFR Random Glucose (60-115) mg/dL Calcium (8.4-10.2) mg/dL Magnesium (1.6-2.6) mg/dL Total Bilirubin (0.0-1.0) mg/dL Direct Bilirubin (0.0-0.5) mg/dL AST (5-37) U/L ALT (0-40) U/L Alkaline Phosphatase (39-117) U/L Troponin I High Sens (<3.5-35.0) ng/L B-Natriuretic Peptide (<100) pg/mL Total Protein (6.5-8.0) g/dL Albumin (3.5-5.0) g/dL COVID-19 (THANG) (Negative) COVID-19 Clin Com Influenza Type A (KEN) Negative (Negative) Influenza Type B (KEN) Negative (Negative) Influenza A & B Note See Note Discharge Plan Discharge Clinical Impression: Shortness of breath Patient Disposition: Elopement Prescriptions: No Action ferrous sulfate 15 mg iron (75 mg)/mL drops 2 ml PO DAILY 30 Days Qty: 60 4RF omeprazole 20 mg capsule,delayed release(DR/EC) 20 mg PO DAILY 90 Days Qty: 90 1RF doxycycline hyclate 100 mg tablet 100 mg PO BID 30 Days Qty: 60 3RF Certavite-Antioxidant 18-400 mg-mcg tablet 1 tab PO DAILY 6RF oxybutynin chloride 5 mg tablet extended release 24hr 5 mg PO DAILY 90 Days Qty: 90 2RF tamsulosin 0.4 mg capsule 0.4 mg PO BEDTIME 90 Days Qty: 90 1RF omega 0-bsw-owz-fish oil 300 mg (120 mg- 180mg)-1,000 mg Capsule 300 cap PO DAILY Qty: 90 3RF omega 5-wzf-yyo-fish oil 300 mg (120 mg- 180mg)-1,000 mg capsule 1 cap PO TID Qty: 90 6RF latanoprost 0.005 % drops 1 drp ophthalmic-Left BEDTIME atorvastatin 40 mg tablet 40 mg PO BEDTIME glipizide 5 mg tablet extended release 24hr 5 mg PO DAILY metformin 1,000 mg tablet 1,000 mg PO BID dorzolamide-timolol 22.3-6.8 mg/mL drops 1 drp ophthalmic (eye) BID Dry Eye Relief 1-0.2-0.2 % drops 1 drp ophthalmic (eye) QID Levemir U-100 Insulin 100 unit/mL solution 84 unit subcut BEDTIME Fish Oil 340-1,000 mg capsule 1 cap PO TID trazodone 150 mg tablet 300 mg PO BEDTIME buprenorphine-naloxone 8-2 mg film 1 film buccal BID Qty: 30 0RF olanzapine 5 mg tablet 1 tab PO BEDTIME amlodipine 10 mg tablet 1 tab PO BEDTIME lisinopril 40 mg tablet 40 mg PO BID metoprolol succinate 25 mg tablet extended release 24 hr 25 mg PO DAILY loratadine 10 mg tablet 10 mg PO DAILY (DME) lancets [TRUEplus Lancets] 33 gauge misc See Rx Instructions .ROUTE TID Qty: 100 Rx Instructions: As directed alcohol swabs [Alcohol Prep Pads] Pads, Medicated 1 pad topical TID (DME) FreeStyle Lite Strips Strip See Rx Instructions .ROUTE TID Qty: 10 Rx Instructions: As directed acetaminophen 500 mg tablet 1,000 mg PO Q8H PRN (Reason: pain) (DME) insulin syringe-needle U-100 1 mL 31 gauge x 5/16 syringe See Rx Instructions .ROUTE DAILY Qty: 10 Rx Instructions: As directed Interventions: ED Discharge Assessment Last Done: 11/21/22 00:42 Discharge Date/Time: 11/21/22 00:43
--- NOTE | 2022-11-20 19:27 | ECG_ITS ---
Test Reason : DYSPENA Blood Pressure : / mmHG Vent. Rate : 069 BPM Atrial Rate : 069 BPM P-R Int : 170 ms QRS Dur : 108 ms QT Int : 410 ms P-R-T Axes : 064 -72 056 degrees QTc Int : 439 ms Normal sinus rhythm Incomplete right bundle branch block Left anterior fascicular block Septal infarct , age undetermined Abnormal ECG When compared to the previous EKG of No significant changes seen Referred By: Ivette Ibanez Electronically Signed By:ROSELYN MOYER MD
[2022-11-20 19:53] LABS: MANUAL DIFF FLAG NO
[2022-11-20 19:55] LABS: Basophils Percent Auto 0.4 % (0-2); Eosinophils Absolute Auto 0.2 X10*3/uL (0.0-0.4); Eosinophils Percent Auto 2.8 % (0-4); Hematocrit 32.1 % (42.0-52.0); Hemoglobin 10.6 g/dl (14.0-18.0); Imm Gran Abs Auto 0.05 X10*3/uL (0.00-0.03); Imm Gran Pct Auto 0.7 % (0.0-0.4); Lymphocytes Absolute Auto 1.8 X10*3/uL (1.2-4.9); Lymphocytes Percent Auto 25.4 % (20-40); Mean Corpuscular Hemoglobin 29.1 pg (27.0-33.0); Mean Corpuscular Volume 88.2 fL (80.0-98.0); Mean Platelet Volume 8.9 fL (9.4-12.4); Monocytes Absolute Auto 0.6 X10*3/uL (0.1-1.2); Neutrophils Absolute Auto 4.5 x10*3/uL (2.0-8.3); Neutrophils Percent Auto 62.7 % (45-73); Platelet Count 355 X10*3/uL (160-400); Red Blood Count 3.64 X10*6/uL (4.60-5.80); Red Cell Distribution Width 13.9 % (11.0-16.0); White Blood Count 7.2 X10*3/uL (4.8-10.8)
[2022-11-20 20:01] LABS: INTERNATIONAL NORM RATIO 1.1 (0.9-1.1); Prothrombin Time 12.4 SEC (10.0-13.1)
--- NOTE | 2022-11-20 20:01 | MHC.EDTECH ---
PT EKG WAS DONE AND READ BY PROVIDER ,BLOOD DRAWN ,COVID AND FLU SWAB COLLECTED ALL SENT TO LAB .
[2022-11-20 20:09] LABS: COVID-19 Test Negative (Negative)
[2022-11-20 20:11] LABS: IDNOW Serial# 16C4AD1C; Influenza A Negative (Negative); Influenza B2 Negative (Negative)
[2022-11-20 20:21] LABS: Alanine Aminotransferase 36 U/L (0-40); Albumin Level 3.9 g/dL (3.5-5.0); Alkaline Phosphatase 109 U/L (39-117); Anion Gap 16 (12-20); Aspartate Amino Transferase 33 U/L (5-37); B Type Natriuretic Peptide 64 pg/mL (<100); Bilirubin Direct < 0.2 mg/dL (0.0-0.5); Bilirubin Total 0.2 mg/dL (0.0-1.0); Blood Urea Nitrogen 14 mg/dL (9-16); Calcium 9.1 mg/dL (8.4-10.2); Carbon Dioxide 29 mmol/L (22-29); Chloride 99 mmol/L (96-108); Creatinine Clr Calc Pharmacy 94.2; Estimated Glomerular Filt Rate > 60; Glucose Random 99 mg/dL (60-115); Magnesium 1.5 mg/dL (1.6-2.6); Potassium 4.7 mmol/L (3.3-5.1); Sodium 139 mmol/L (135-145)
[2022-11-20 20:23] LABS: Troponin-I High Sensitivity < 3.5 ng/L (<3.5-35.0)
== END 2022-11-21 00:43 | disposition left against medical advice (07) ==
PROVIDERS: Physician Assistant; Emergency Provider Emergency Medicine; PCP Internal Medicine
DX: R06.02 Shortness of breath (principal); R07.89 Other chest pain; I25.10 Atherosclerotic heart disease of native coronary artery without angina pectoris; F17.210 Nicotine dependence, cigarettes, uncomplicated; Z20.822 Contact with and (suspected) exposure to COVID-19; Z20.828 Contact with and (suspected) exposure to other viral communicable diseases; Z79.899 Other long term (current) drug therapy; Z71.6 Tobacco abuse counseling
CPT/HCPCS: 36415; 71045; 80048; 80076; 83735; 83880; 84484; 85025; 85610; 87502; 87635; 93005; 99283

== ENCOUNTER 2022-12-03 09:03 | Outpatient (REF) | payer OTHER, MEDICAID, SELFPAY ==
--- NOTE | ~2022-12-03 | XR_ITS ---
EXAMINATION: XR ANKLE, LEFT CLINICAL INFORMATION: Ankle pain. COMPARISON: Radiographs left ankle 11/18/2022, 09/10/2022. TECHNIQUE: Left ankle is imaged in 3 views. FINDINGS: There is compression plate and multiple screws distal fibular. Hardware intact. No destructive process or osteolysis. There is chronic posttraumatic changes distal tibia. The medial malleolar fracture has fused since 09/10/2022. Again, there are subchondral cystic change distal tibia similar to prior exams. No periostitis. The tibiotalar joint is not well visualized, likely chronic arthropathy. Subtalar joint shows degenerative changes. There are posterior and plantar calcaneal spurs. XR/XR ankle LT min 3V IMPRESSION: -Distal fibular hardware intact. No osteolysis or destructive process. -Interval fusion medial malleolar fracture since 09/10/2022. -Tibiotalar joint poorly visualized, suspect chronic arthropathy. -Degenerative changes subtalar joint.
== END 2022-12-03 09:04 | disposition home or self-care (01) ==
LOC: HO.HOSX 09:03
PROVIDERS: Visit Provider Orthopaedic Surgery
DX: M19.172 Post-traumatic osteoarthritis, left ankle and foot (principal); Z98.890 Other specified postprocedural states
CPT/HCPCS: 73610; 99212

== ENCOUNTER 2022-12-16 16:06 | Emergency (ER) | payer OTHER, SELFPAY ==
[2022-12-16 16:16] VITALS: BP 160/79; PULSE 68; RESP 18; TEMP 36.3; O2SAT 95; BMI 31.3
--- NOTE | 2022-12-16 16:17 | ED_ITS ---
HPI - URI/Sore Throat General Chief Complaint: Upper Respiratory Symptoms Stated Complaint: cough for a week now Related Data Home Medications Medication Instructions Recorded Confirmed lisinopril 40 mg tablet 40 mg PO BID 06/06/20 06/30/22 metoprolol succinate 25 mg 25 mg PO DAILY 06/06/20 06/30/22 tablet,extended release 24 hr atorvastatin 40 mg tablet 40 mg PO BEDTIME 03/26/21 06/30/22 dorzolamide 22.3 mg-timolol 6.8 1 drp ophthalmic (eye) BID 03/26/21 06/30/22 mg/mL eye drops glipizide 5 mg tablet, extended 5 mg PO DAILY 03/26/21 06/30/22 release 24 hr insulin detemir U-100 100 unit/mL 84 unit subcut BEDTIME 03/26/21 06/30/22 subcutaneous solution (Levemir U-100 Insulin) latanoprost 0.005 % eye drops 1 drp ophthalmic-Left BEDTIME 03/26/21 06/30/22 metformin 1,000 mg tablet 1,000 mg PO BID 03/26/21 06/30/22 omega-3 fatty acids-fish oil 340 1 cap PO TID 03/26/21 06/30/22 mg-1,000 mg capsule (Fish Oil) peg [id number] 1 1 drp ophthalmic (eye) QID 03/26/21 06/30/22 %-0.2 %-0.2 % eye drops (Dry Eye Relief) trazodone 150 mg tablet 300 mg PO BEDTIME 03/26/21 06/30/22 loratadine 10 mg tablet 10 mg PO DAILY 09/11/21 06/30/22 amlodipine 10 mg tablet 1 tab PO BEDTIME 06/30/22 06/30/22 olanzapine 5 mg tablet 1 tab PO BEDTIME 06/30/22 06/30/22 acetaminophen 500 mg tablet 1,000 mg PO Q8H PRN pain 07/09/22 alcohol swabs (Alcohol Prep Pads) 1 pad topical TID 07/09/22 blood sugar diagnostic (FreeStyle #10 ea 07/09/22 Lite Strips) insulin syringe-needle U-100 1 mL #10 ea 07/09/22 31 gauge x 5/16 lancets 33 gauge (TRUEplus Lancets) #100 ea 07/09/22 Previous Rx's Medication Instructions Recorded ferrous sulfate 15 mg iron (75 2 ml PO DAILY 30 days #60 mL 09/02/21 mg)/mL oral drops omeprazole 20 mg capsule,delayed 20 mg PO DAILY 90 days #90 caps 02/27/22 release buprenorphine 8 mg-naloxone 2 mg 1 film buccal BID #30 ea 03/04/22 sublingual film doxycycline hyclate 100 mg tablet 100 mg PO BID 30 days #60 tabs 08/17/22 multivitamin-ferrous 1 tab PO DAILY 09/28/22 fumarate-folic acid 18 mg-400 mcg tablet (Certavite-Antioxidant) omega-3 300 mg-dha 120 mg-epa 180 1 cap PO TID #90 caps 10/01/22 mg-fish oil 1,000 mg capsule omega-3 300 mg-dha 120 mg-epa 180 300 cap PO DAILY #90 caps 10/01/22 mg-fish oil 1,000 mg capsule oxybutynin chloride 5 mg 5 mg PO DAILY 90 days #90 tabs 10/09/22 tablet,extended release 24 hr tamsulosin 0.4 mg capsule 0.4 mg PO BEDTIME 90 days #90 caps 11/02/22 Allergies Allergy/AdvReac Type Severity Reaction Status Date / Time No Known Allergies Allergy Verified 12/16/22 16:20 [facility] Past Medical History Medical History Anxiety CAD (coronary artery disease) Chronic constipation COPD (chronic obstructive pulmonary disease) COPD (chronic obstructive pulmonary disease) Diabetes mellitus Genital herpes GERD (gastroesophageal reflux disease) History of adenomatous polyp of colon History of fracture of left ankle Hypertension Hypertension Opioid dependence Opioid dependence on agonist therapy JAUN (obstructive sleep apnea) Pancreatic abnormality Post-traumatic arthritis of left ankle Prepatellar bursitis, left knee Surgical History History of ankle surgery S/P hardware removal Family History Family History Mother No problems noted. Father Liver cancer Social History Social History Household Members: Spouse Housing: Apartment Do you presently have visiting nurse or other home services: Yes Alcohol intake: former Patient Tobacco Use Status: Current everyday Tobacco user Tobacco use type: Cigarette Cigarettes Per Day: 4 e-Cigarette/Vaping Use: Currently Using Second Hand Smoke Exposure: No Substance Use Type: Heroin Advance Directives: Yes Advance Directives on File: Yes Advance Directives Date on File: 01/28/22 service: No Current occupational status: retired and disabled Current occupation: right handed Physical Exam Vital Signs: Vital Signs: Last Vital Signs Temp 97.4 F 12/16/22 16:16 Pulse 68 12/16/22 16:16 Resp 18 12/16/22 16:16 BP 160/79 H 12/16/22 16:16 Pulse Ox 95 12/16/22 16:16 O2 Del Method Room Air 12/16/22 16:16 BMI result Body Mass Index 31.3 Course Course Course Narrative: 71-year-old male with a past medical history of CAD, COPD, diabetes, GERD, HTN, JAUN here with cough with productive phlegm over 1 week, also rash. No chest pain, shortness of breath. Will obtain CXR, viral testing. VSS Medical Decision Making Lab Data Labs: Lab Results 12/16/22 Range/Units 16:34 Influenza Type A (PCR) NEGATIVE (Negative) Influenza Type B (PCR) NEGATIVE (Negative) RSV RNA Qual (PCR) NEGATIVE (Negative) SARS-CoV-2 RNA (RT-PCR) NEGATIVE (Negative) Discharge Plan Discharge Clinical Impression: Cough Patient Disposition: Elopement Prescriptions: No Action ferrous sulfate 15 mg iron (75 mg)/mL drops 2 ml PO DAILY 30 Days Qty: 60 4RF omeprazole 20 mg capsule,delayed release(DR/EC) 20 mg PO DAILY 90 Days Qty: 90 1RF doxycycline hyclate 100 mg tablet 100 mg PO BID 30 Days Qty: 60 3RF Certavite-Antioxidant 18-400 mg-mcg tablet 1 tab PO DAILY 6RF oxybutynin chloride 5 mg tablet extended release 24hr 5 mg PO DAILY 90 Days Qty: 90 2RF tamsulosin 0.4 mg capsule 0.4 mg PO BEDTIME 90 Days Qty: 90 1RF omega 4-cnw-dda-fish oil 300 mg (120 mg- 180mg)-1,000 mg Capsule 300 cap PO DAILY Qty: 90 3RF omega 7-jya-lmp-fish oil 300 mg (120 mg- 180mg)-1,000 mg capsule 1 cap PO TID Qty: 90 6RF latanoprost 0.005 % drops 1 drp ophthalmic-Left BEDTIME atorvastatin 40 mg tablet 40 mg PO BEDTIME glipizide 5 mg tablet extended release 24hr 5 mg PO DAILY metformin 1,000 mg tablet 1,000 mg PO BID dorzolamide-timolol 22.3-6.8 mg/mL drops 1 drp ophthalmic (eye) BID Dry Eye Relief 1-0.2-0.2 % drops 1 drp ophthalmic (eye) QID Levemir U-100 Insulin 100 unit/mL solution 84 unit subcut BEDTIME Fish Oil 340-1,000 mg capsule 1 cap PO TID trazodone 150 mg tablet 300 mg PO BEDTIME buprenorphine-naloxone 8-2 mg film 1 film buccal BID Qty: 30 0RF olanzapine 5 mg tablet 1 tab PO BEDTIME amlodipine 10 mg tablet 1 tab PO BEDTIME lisinopril 40 mg tablet 40 mg PO BID metoprolol succinate 25 mg tablet extended release 24 hr 25 mg PO DAILY loratadine 10 mg tablet 10 mg PO DAILY (DME) lancets [TRUEplus Lancets] 33 gauge misc See Rx Instructions .ROUTE TID Qty: 100 Rx Instructions: As directed alcohol swabs [Alcohol Prep Pads] Pads, Medicated 1 pad topical TID (DME) FreeStyle Lite Strips Strip See Rx Instructions .ROUTE TID Qty: 10 Rx Instructions: As directed acetaminophen 500 mg tablet 1,000 mg PO Q8H PRN (Reason: pain) (DME) insulin syringe-needle U-100 1 mL 31 gauge x 5/16 syringe See Rx Instructions .ROUTE DAILY Qty: 10 Rx Instructions: As directed Interventions: LWBS Worksheet Last Done: 12/16/22 18:36 Discharge Date/Time: 12/16/22 18:37
[2022-12-16 17:20] LABS: Influenza A PCR NEGATIVE (Negative); Influenza B PCR NEGATIVE (Negative); Resp Syncy Virus RNA Qual PCR NEGATIVE (Negative); SARS COV2 PCR INHOUSE NEGATIVE (Negative)
== END 2022-12-16 18:37 | disposition left against medical advice (07) ==
PROVIDERS: Nurse Practitioner Family; Emergency Provider Emergency Medicine; PCP Internal Medicine
DX: R05.9 Cough, unspecified (principal); F17.210 Nicotine dependence, cigarettes, uncomplicated; Z20.822 Contact with and (suspected) exposure to COVID-19; Z20.828 Contact with and (suspected) exposure to other viral communicable diseases; Z79.899 Other long term (current) drug therapy; Z71.6 Tobacco abuse counseling
CPT/HCPCS: 0241U; 99281; 99283

== ENCOUNTER → 2023-01-06 13:02 | Outpatient (BNVA) | payer OTHER, SELFPAY | PROVIDERS: PCP Internal Medicine; Visit Provider Internal Medicine | DX: R78.81 Bacteremia (principal); B95.61 Methicillin susceptible Staphylococcus aureus infection as the cause of diseases classified elsewhere; Z98.890 Other specified postprocedural states | CPT/HCPCS: 99212 ==

== ENCOUNTER 2023-02-01 10:53 | Observation (INO) | payer OTHER, SELFPAY ==
[2023-02-01] VITALS (9 sets, daily range): BP systolic 98–127; BP diastolic 53–69; PULSE 71–92; RESP 10–18; TEMP 36.8–36.9; O2SAT 93–97; BMI 28.9; BMI 29.6
--- NOTE | ~2023-02-01 | XR_ITS ---
EXAMINATION: XR ANKLE, LEFT CLINICAL INFORMATION: septic arthritis/abscess COMPARISON: Left ankle 12/03/2022 TECHNIQUE: AP, lateral, and mortise views of the left ankle. FINDINGS: Orthopedic plate and screw at lateral malleolus intact. Residual deformity of old healed fracture of the lateral malleolus and distal tibia with chronic marked posttraumatic degenerative arthrosis of the ankle joint. Subtalar joint osteoarthrosis. Since the prior study 12/03/2022 there has been increase in ossification of the periarticular distal tibia subchondral cystic changes. There is also increasing ossification of the anterior talar neck cortical surface compared with prior study of 12/03/2022. No new bone destruction to suggest ongoing osteomyelitis. XR/XR ankle LT 2V IMPRESSION: 1. Status post ORIF lateral malleolus. 2. 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 3. Increasing ossification of the periarticular distal tibia and anterior talar neck. 4. No new bone destruction to suggest ongoing osteomyelitis.
--- NOTE | ~2023-02-01 | CT_ITS ---
EXAMINATION: CT ANGIOGRAM OF THE CHEST WITH AND WITHOUT CONTRAST (CT PULMONARY ANGIOGRAM FOR PE) CLINICAL INFORMATION: Reason for Exam r/o PE, chest pain w/ hypotension COMPARISON: CT angiogram chest 05/26/2022 TECHNIQUE: Prior to contrast administration, noncontrast localization images were obtained. Subsequently, multidetector volumetric imaging was performed from the thoracic inlet to below the diaphragms following the administration of 85 mL Omnipaque 350 intravenous contrast. No contrast reaction reported Sagittal, coronal, and MIP oblique sagittal reformatted images were obtained on the CT workstation, uploaded to PACS, and reviewed. This CT examination was performed using dose optimization techniques as appropriate, variously including the following: *Automated exposure control *Adjustment of mA and/or kV according to patient size (this includes techniques or standardized protocols for targeted exams where dose is matched to indication/reason for exam; i.e. extremities or head) *Use of iterative reconstruction technique Total exam dose-length product 411 mGy-cm FINDINGS: QUALITY OF STUDY/CONTRAST BOLUS: Suboptimal. The pulmonary arteries or the worst opacified arterial structure, with better opacification of the pulmonary veins and thoracic aorta. PULMONARY ARTERIES: No central or large segmental THORACIC AORTA: No aneurysm. Three-vessel branching pattern is seen with a common trunk involving the brachiocephalic and left carotid but the left vertebral artery has its own origin from the arch. LUNG: No focal consolidation, nodules or masses. Bibasilar atelectasis is present. PLEURA: There is a tiny right pleural effusion. MEDIASTINUM: Normal heart size. No pericardial effusion. No hilar or mediastinal lymphadenopathy. No evidence of septal bowing or right heart strain. Mild coronary calcium is present. CORONARY ARTERY CALCIFICATION: None visualized on this study. CHEST WALL/AXILLA: No axillary or internal mammary lymphadenopathy. There is bilateral gynecomastia. OSSEOUS STRUCTURES: No acute or suspicious osseous abnormality. UPPER ABDOMEN: There is marked thickening of the distal esophagus. See report of CT abdomen and pelvis performed contemporaneously. No reflux of contrast into the hepatic veins to suggest elevated right heart pressures. CT/CT angio chest PE protocol IMPRESSION: 1. No evidence of central or large segmental pulmonary emboli. 2. Tiny right pleural effusion with bibasilar atelectasis. 3. Marked thickening of the distal esophagus. Consider an esophagram or upper GI for further evaluation. VTE: Negative, but limited.
--- NOTE | ~2023-02-01 | CT_ITS ---
EXAMINATION: CT ABDOMEN AND PELVIS WITH CONTRAST CLINICAL INFORMATION: Abdominal pain and hypotension COMPARISON: None available. TECHNIQUE: Multidetector volumetric images were obtained from the superior aspect of the liver through the pubic symphysis following administration 85 mL of Omnipaque 350 intravenous contrast. Sagittal and coronal reformatted images were obtained on the technologist's workstation. Oral contrast: No This CT examination was performed using dose optimization techniques as appropriate, variously including the following: *Automated exposure control *Adjustment of mA and/or kV according to patient size (this includes techniques or standardized protocols for targeted exams where dose is matched to indication/reason for exam; i.e. extremities or head) *Use of iterative reconstruction technique DLP: 611 mGy-cm FINDINGS: LUNG BASES: See report of chest CT same day. A tiny right pleural effusion is present. LIVER, GALLBLADDER, AND BILIARY TREE: The liver is enlarged measuring 18.3 cm in greatest length and has a mildly nodular border (for example see anterior left lobe 15:20). No focal hepatic lesion or biliary ductal dilatation is present. The gallbladder is unremarkable with no evidence of radiopaque gallstones, gallbladder wall thickening, or obvious pericholecystic inflammatory changes. PANCREAS: Unremarkable. SPLEEN: Unremarkable. ADRENAL GLANDS: Bilateral large adrenal masses are again seen, unchanged from 02/13/2022. On the noncontrast exam, these were shown to be consistent with benign adenomas as they were quite low in attenuation. KIDNEYS AND URETERS: The kidneys are normal in size, shape, and attenuation. There is a benign water density Bosniak class I cyst at the upper pole the left kidney which needs no additional imaging or follow-up and has been present in the past. No solid renal masses. No hydronephrosis, hydroureter, or calculi seen. No perinephric stranding. BLADDER: Unremarkable. GASTROINTESTINAL TRACT: Again seen is marked thickening of the distal esophagus. The small and large bowel are unremarkable. The appendix is unremarkable. ABDOMINAL WALL: No significant hernia is appreciated. LYMPH NODES: No retroperitoneal lymphadenopathy. VASCULAR: No aortic aneurysm. Minimal calcific atherosclerotic plaque is present. PELVIC VISCERA: There is mild BPH. Seminal vesicles appear normal. OSSEOUS STRUCTURES: Unremarkable. CT/CT abdomen pelvis w IV con IMPRESSION: A cause for the patient's abdominal pain and hypotension has not been found. Incidental note made of: 1. Enlarged liver with mildly nodular border. 2. Bilateral adrenal adenomas. 3. Marked thickening of the distal esophagus. Consider an esophagram on upper endoscopy for further evaluation. Appearances could be due to poor distention 4. Mild BPH. Fleischner guidelines were followed.
--- NOTE | ~2023-02-01 | XR_ITS ---
EXAMINATION: XR CHEST CLINICAL INFORMATION: Chest pain. COMPARISON: 11/20/2022 TECHNIQUE: 2 views of the chest were obtained. FINDINGS: The lungs are well expanded. No focal consolidation. No pleural effusion. Ectasia of the thoracic aorta may be due to AP technique. Cardiac silhouette is unchanged. XR/XR chest 2V IMPRESSION: Ectasia of the thoracic aorta possibly technical related to AP technique. Advise clinical correlation.
--- NOTE | ~2023-02-01 | MR_ITS ---
EXAMINATION: MR ANKLE WITHOUT AND WITH CONTRAST, LEFT CLINICAL INFORMATION: Swelling. History of hardware removal. MRSA infection. COMPARISON: Radiograph dated 03/03/[address] dated 07/19/2022. TECHNIQUE: MRI of the ankle was performed before and after the intravenous administration of 9 mL Gadavist on a high-field scanner. FINDINGS: ACHILLES TENDON: Intact. 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 The peroneus brevis is ill-defined and likely chronically torn at the level of the lateral malleolus. Peroneus longus appears intact. Extensor and medial flexor tendons appear intact without appreciable tears or tenosynovitis. Posterior tibial tendinosis is present at the navicular insertion. BONE AND ARTICULAR CARTILAGE: Again seen is a chronic posttraumatic deformity at the tibial plafond with depression and fragmentation of the articular surface. The osseous fragment at Chaput's tubercle is displaced anterolaterally and partially ossified to the adjacent tibial metaphysis. The talar dome is impacted into the tibial plafond articular surface. A lateral plate and screw fixation construct is present at the distal fibula with hypertrophic bone along the healed Saavedra B distal fibular fracture. There is a healed fracture at the base of the medial malleolus with edema signal and enhancement along the track left by the malleolar screw. Chronic hypertrophic periosteal bone formation around the talocrural joint, in general. There is marked articular surface remodeling and subarticular edema at the talar dome and at the deformed tibial plafond with associated subcortical enhancement. There is loss of normal T1 signal just deep to the articular surfaces, potentially degenerative in nature. Superimposed septic arthritis cannot be excluded. There is more [id number] osteoarthritis in the posterior facet of the subtalar joint. Hbka-en-wkmuwuft osteoarthritis is also present at the talonavicular joint. There is more mild multifocal osteoarthritis in the remainder the midfoot and at the calcaneocuboid joint. LIGAMENTS: Calcaneofibular ligament is thickened and irregular. Anterior and posterior talofibular and tibiofibular ligaments are distorted and at least partially torn. Spring ligament is intact. Deltoid ligament is not well seen. JOINT FLUID AND SOFT TISSUES: Small effusions are evident at the talocrural and subtalar joints with associated synovial enhancement, more pronounced at the talocrural joint. Mild generalized edema signal is present throughout the soft tissues of the ankle with postsurgical changes in the skin and subcutaneous fat both medially and laterally. Moderate atrophy of the intrinsic foot musculature. No peripherally enhancing fluid collections are identified in the soft tissues surrounding the joints. PLANTAR FASCIA: Central band of the plantar fascia is mildly thickened with a plantar calcaneal enthesopathic spur. MR/MR ankle LT wo/w con IMPRESSION: 1. Chronic posttraumatic deformity at the talocrural joint with marked articular surface remodeling, fragmentation, and marrow edema at the talar dome and tibial plafond as well as a small effusion and synovitis. Subarticular marrow changes at the tibial plafond and talar dome are favored to be reactive to the posttraumatic arthritis, though chronic superimposed septic arthritis is possible. There is persistent enhancement and edema signal along the screw tracks in the medial malleolus which may be due to granulation tissue status post hardware removal or superimposed infection. No separate sites of infection are suspected. No abscesses. 2. 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 3. 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 The peroneus brevis is ill-defined and likely chronically torn.
--- NOTE | 2023-02-01 11:10 | ECG_ITS ---
Test Reason : cp Blood Pressure : / mmHG Vent. Rate : 079 BPM Atrial Rate : 079 BPM P-R Int : 180 ms QRS Dur : 132 ms QT Int : 410 ms P-R-T Axes : 052 -73 045 degrees QTc Int : 470 ms Normal sinus rhythm Left axis deviation Non-specific intra-ventricular conduction block Minimal voltage criteria for LVH, may be normal variant ( [place] product ) Abnormal ECG When compared with ECG of 20-NOV-2022 19:33, Non-specific intra-ventricular conduction block has replaced Incomplete right bundle branch block Criteria for Septal infarct are no longer Present Referred By: Generic ED Physician Electronically Signed By:Franco Giordano
--- NOTE | 2023-02-01 11:32 | ECG_ITS ---
Test Reason : CP Blood Pressure : / mmHG Vent. Rate : 078 BPM Atrial Rate : 078 BPM P-R Int : 180 ms QRS Dur : 130 ms QT Int : 406 ms P-R-T Axes : 049 -68 039 degrees QTc Int : 462 ms Normal sinus rhythm Left axis deviation Non-specific intra-ventricular conduction block Minimal voltage criteria for LVH, may be normal variant ( [place] product ) Abnormal ECG When compared with ECG of 01-FEB-2023 11:17, No significant change was found Referred By: Yolie Roy Electronically Signed By:Franco Giordano
[2023-02-01] MEDS: 0.9 % Sodium Chloride 500 ML 999 ML IV (12:12)
--- NOTE | 2023-02-01 12:12 | PC.NURSE ---
pt aox4, on monitor- nsr. labs, cultures and ekg done and drawn. fluids hanging per mar. will cont to [place]
[2023-02-01 12:17] LABS: MANUAL DIFF FLAG NO
[2023-02-01 12:19] LABS: Basophils Absolute Auto 0.1 X10*3/uL (0.0-0.2); Basophils Percent Auto 0.2 % (0-2); Eosinophils Absolute Auto 0.1 X10*3/uL (0.0-0.4); Eosinophils Percent Auto 0.2 % (0-4); Hematocrit 34.7 % (42.0-52.0); Imm Gran Abs Auto 0.38 X10*3/uL (0.00-0.03); Imm Gran Pct Auto 1.8 % (0.0-0.4); Lymphocytes Absolute Auto 1.2 X10*3/uL (1.2-4.9); Lymphocytes Percent Auto 5.9 % (20-40); Mean Corpuscular HGB Conc 34.6 g/dl (31.0-36.0); Mean Corpuscular Volume 83.8 fL (80.0-98.0); Mean Platelet Volume 8.7 fL (9.4-12.4); Monocytes Absolute Auto 1.4 X10*3/uL (0.1-1.2); Monocytes Percent Auto 6.6 % (2-11); Neutrophils Absolute Auto 17.5 x10*3/uL (2.0-8.3); Neutrophils Percent Auto 85.3 % (45-73); Platelet Count 417 X10*3/uL (160-400); Red Blood Count 4.14 X10*6/uL (4.60-5.80); Red Cell Distribution Width 12.9 % (11.0-16.0); White Blood Count 20.6 X10*3/uL (4.8-10.8)
[2023-02-01 12:25] LABS: INTERNATIONAL NORM RATIO 1.1 (0.9-1.1); Prothrombin Time 12.3 SEC (10.0-13.1)
--- NOTE | 2023-02-01 12:26 | ED_ITS ---
HPI - Chest Pain General Chief Complaint: Chest Pain Stated Complaint: ABD PAIN Time Seen by Provider: 02/01/23 11:18 Source: patient and EMS Mode of arrival: EMS Limitations: no limitations History of Present Illness HPI narrative: 71 yo male with hx of COPD, PTSD, HTN, MSSA bacteremia, opiate use disorder, DM, TENA, prior bimalleolar fracture, GERD, chronic constipation here with complaints of chest pain which began yesterday. Patient reports the chest pain is central and is worsened with palpation and deep breathing. Patient reports the pain is constant and not worsened with exertion. He denies any associated shortness breath, cough or fever or leg swelling. He does have chronic left lower extremity pain. He does not feel that this is worsened from his baseline. Patient also reports generalized abdominal pain but unable to quantify how long this has been going on for. He denies any associated vomiting, diarrhea or urinary symptoms. Patient reports he is currently on Suboxone and has not used IV drugs and many years. Patient reports decreased oral intake since yesterday and feeling overall weak Related Data Home Medications Medication Instructions Recorded Confirmed acetaminophen 500 mg tablet 1,000 mg PO Q8H PRN pain 02/01/23 amlodipine 10 mg tablet 10 mg PO BEDTIME 02/01/23 atorvastatin 40 mg tablet 40 mg PO BEDTIME 02/01/23 buprenorphine 8 mg-naloxone 2 mg 10 mg sublingual BID 02/01/23 sublingual film dorzolamide 22.3 mg-timolol 6.8 1 drp 02/01/23 mg/mL eye drops doxycycline hyclate 100 mg tablet 100 mg PO BID 02/01/23 fluticasone propionate 110 1 puff inhalation BID 02/01/23 mcg/actuation HFA aerosol inhaler (Flovent HFA) glipizide 5 mg tablet, extended 5 mg PO QAM 02/01/23 release 24 hr lisinopril 40 mg tablet 40 mg PO 02/01/23 loratadine 10 mg tablet 10 mg PO QAM 02/01/23 metformin 1,000 mg tablet 1,000 mg PO 02/01/23 metoprolol succinate 25 mg 25 mg PO QAM 02/01/23 tablet,extended release 24 hr multivitamin-ferrous 1 tab PO DAILY 02/01/23 fumarate-folic acid 18 mg-400 mcg tablet (Certavite-Antioxidant) olanzapine 5 mg tablet 5 mg PO BEDTIME 02/01/23 omega-3 300 mg-dha 120 mg-epa 180 1 cap PO DAILY 02/01/23 mg-fish oil 1,000 mg capsule,del rel omeprazole 20 mg capsule,delayed 20 mg PO DAILY 02/01/23 release oxybutynin chloride 5 mg 5 mg PO QAM 02/01/23 tablet,extended release 24 hr tamsulosin 0.4 mg capsule 0.4 mg PO BEDTIME 02/01/23 trazodone 100 mg tablet 100 mg PO BEDTIME 02/01/23 trazodone 150 mg tablet 300 mg PO BEDTIME 02/01/23 Allergies Allergy/AdvReac Type Severity Reaction Status Date / Time No Known Allergies Allergy Verified 01/06/23 13:06 Review of Systems Review of Systems: Yes all other systems are reviewed and are negative Constitutional: Constitutional: Reports no additional constitutional comp laints, Denies body ache(s), Denies chills, Denies fever(s), Denies headache(s) and Reports weakness Eyes: Eyes: Reports no additional eye complaints and Denies change in vision ENT: Reports system reviewed and no additional complaints, except as documented, Denies dizziness, Denies headache(s), Denies nasal congestion, Denies nasal discharge and Denies neck pain Cardiovascular: Cardiovascular: Reports no additional cardiovascular complaints, Reports chest pain, Denies leg edema and Denies dyspnea Respiratory: Respiratory: Reports no additional respiratory complaints, Denies cough and Denies dyspnea Gastrointestinal: Gastrointestinal: Reports no additional gastrointestinal complaints, Reports abdominal pain, Denies diarrhea, Denies nausea and Denies vomiting Genitourinary: Genitourinary: Denies urinary incontinence Musculoskeletal: Musculoskeletal: Reports no additional musculoskeletal complaints, Denies back pain, Denies arthralgias, Denies joint swelling, Denies neck pain, Denies numbness and Denies tingling Integumentary/Breasts: Skin/Breast: Reports system reviewed and no additional complaints, except as docu and Denies rash Neurologic: Reports system reviewed and no additional complaints, except as documented, Denies Abnormal speech present, Denies dizziness, Denies headache(s), Denies numbness, Denies tingling and Reports weakness PMFSH Past Medical History Attestation statement: The following information was validated with the patient. Source: old records reviewed and nursing notes reviewed Medical History Anxiety CAD (coronary artery disease) Chronic constipation COPD (chronic obstructive pulmonary disease) COPD (chronic obstructive pulmonary disease) Diabetes mellitus Genital herpes GERD (gastroesophageal reflux disease) History of adenomatous polyp of colon History of fracture of left ankle Hypertension Hypertension Opioid dependence Opioid dependence on agonist therapy JAUN (obstructive sleep apnea) Pancreatic abnormality Post-traumatic arthritis of left ankle Prepatellar bursitis, left knee Surgical History History of ankle surgery S/P hardware removal Family History Family History Mother No problems noted. Father Liver cancer Social History Social History Household Members: Spouse Housing: Apartment Do you presently have visiting nurse or other home services: Yes Alcohol intake: never Patient Tobacco Use Status: Current everyday Tobacco user Tobacco use type: Cigarette Cigarettes Per Day: 4 Smoked in Last 30 Days: Yes e-Cigarette/Vaping Use: Currently Using Second Hand Smoke Exposure: No Substance Use Type: Heroin Advance Directives: Yes Advance Directives on File: Yes Advance Directives Date on File: 01/28/22 service: No Current occupational status: retired and disabled Current occupation: right handed Physical Exam Vital Signs: Vital Signs: Last Vital Signs Temp 98.5 F 02/01/23 17:40 Pulse 86 02/01/23 18:49 Resp 18 02/01/23 18:38 BP 103/59 L 02/01/23 18:49 Pulse Ox 95 02/01/23 18:38 O2 Del Method Room Air 02/01/23 18:38 BMI result Body Mass Index 28.9 Const: General: cooperative, healthy appearing, comfortable and no acute distress Orientation/consciousness: patient oriented x3 Limitations: no limitations HEENT: Other: Tacky MM Head: Yes normal to inspection Ears: hearing grossly normal bilaterally and TM's normal bilaterally General nose exam: Normal external nose present Face and sinus: Yes normal facial exam Mouth: Normal oral and palatal mucosa present Throat: Yes posterior oropharynx normal Eyes: General: appearance normal, both eyes and all related structures Pupi ls: Equal, round and reactive pupils present Neck: Neck: Yes normal visual inspection, Yes full ROM, Yes no lymphadenopathy and Yes no meningeal signs Chest: Chest palpation & inspection: normal inspection of the chest and tenderness (central chest tenderness to palp) Resp: Other: Coarse BS Effort & Inspection: normal respiratory effort Cardio: Rate: regular rate Rhythm: regular rhythm Peripheral pulses: Peripheral pulses 2+ throughout GI: Inspection: Yes normal to inspection Palpation (GI): Soft to palpation and Tenderness to palpation present (GI) (mild diffuse TTP-no rebound or guarding ) Auscultation: normal bowel sounds Back/Spine/Pelvis: Thoracic/Lumbar Spine: thoracic and lumbar spine normal to inspection Skin: General skin exam: no rashes or lesions noted Neuro: General: patient oriented x3, no meningeal signs, no focal motor deficits and normal sensation to monofilament Cranial nerves: Yes Equal, round and reactive pupils present Cognition (Neuro): normal cognition Speech: No Abnormal speech present Gait exam (Neuro): Normal gait present Motor exam (neuro): 5/5 motor strength present throughout Extrem: General: Yes normal to inspection, Yes no pedal edema and Yes no calf tenderness Course Course Course Narrative: 1430-CXR read as concern for ectasia of the thoracic aorta. I considered d issection however patient has had symptoms >24 hrs so I believe this is less likely. However patient has chest pain, shortness of breath, cough, hypotensive and is sedentary therefore there is a high probability of PE. I did discuss this with my attending physician (Dr Kaplan) and we will move forward with obtaining a CTA to r/o PE after hydrating the patient with IVF. As patient is also c/o of abdominal pain will add CT A/P. Anticipate admission. Reevaluation(s) Reevaluation #1: [id number] A/P/chest show no evidence of pulmonary embolism, enlarged liver with mildly nodular border, bilateral adrenal adenomas, marked thickening of the distal esophagus, mild BPH. Labs show leukocytosis with shift, mild TENA. no clear source of infection. May be secondary to dehydration. Patient still complaining of feeling generally weak, blood pressure is 100 systolic. Mildly orthostatic. Patient will be admitted for further management. Medications Administered Discontinued Medications Generic Name Dose Route Start Last Admin Trade Name Freq PRN Reason Stop Dose Admin Sodium Chloride 500 mls @ 999 mls/hr 02/01/23 11:47 02/01/23 13:08 Ns IV 02/01/23 12:17 Infused .Q31M STA Infusion Ceftriaxone Sodium 1 gm/ 50 mls @ 100 mls/hr 02/01/23 12:24 02/01/23 13:18 Sodium Chloride IV 02/01/23 12:53 Infused ONCE ONE Infusion Iohexol 100 ml 02/01/23 16:53 02/01/23 16:54 Iohexol 350 Mg/Ml 100 Ml Infus..Btl IV 02/01/23 16:54 85 ml ONCE ONE Administration Medical Decision Making Medical Decision Making [facility] Narrative: [age] yo male with hx of COPD, PTSD, HTN, MSSA bacteremia, opiate use disorder, DM, TENA, prior bimalleolar fracture, GERD, chronic constipation here with complaints of central chest pain which began yesterday, decreased oral intake, generalized weakness. On arrival patient has tacky mucous membranes. His initial blood pressure is 83/51. He is alert and oriented. He does have some chest discomfort which is worsened with palpation and deep breathing. He also has mild diffuse abdominal tenderness with no rebound or guarding. His lungs are coarse throughout. I will have nursing obtain labs including blood cultures and lactic acid, chest x-ray, COVID testing, EKG patient will receive 500 mL of normal saline then will reassess his blood pressure. Will give him Rocephin 1 g Differential Diagnosis Differential Diagnoses: The differential diagnosis associated with the presentation includes pneumonia, congestive heart failure, PE, ACS (less likely with symtoms >24 hrs with normal EKG, troponin x2), aortic dissection (gradual onset w/ symptoms >24 hrs) Admission/Observation Consideration of admission/observation: Escalation of care including admission/observation considered generalized weakness with [id number], leukocytosis with no clear source in this 72 yo male with multiple comorbidities Consult Healthcare Provider Management of the patient was discussed with: Hospitalist Spoke to Dr Borjas who accepted admission-see above Lab Data [facility] Lab Attestation statement: I reviewed the patient's lab results. 02/01/23 12:10 02/01/23 12:10 Labs: Lab Results 02/01/23 02/01/23 02/01/23 Range/Units 12:10 12:10 12:10 WBC 20.6 H (4.8-10.8) X10*3/uL RBC 4.14 L (4.60-5.80) X10*6/uL Hgb 12.0 L (14.0-18.0) g/dl Hct 34.7 L (42.0-52.0) % MCV 83.8 (80.0-98.0) fL MCH 29.0 (27.0-33.0) pg MCHC 34.6 (31.0-36.0) g/dl RDW 12.9 (11.0-16.0) % Plt Count 417 H (160-400) X10*3/uL MPV 8.7 L (9.4-12.4) fL Immature Gran % (Auto) 1.8 H (0.0-0.4) % Neut % (Auto) 85.3 H (45-73) % Lymph % (Auto) 5.9 L (20-40) % [place] % (Auto) 6.6 (2-11) % Eos % (Auto) 0.2 (0-4) % Baso % (Auto) 0.2 (0-2) % Lymph # (Auto) 1.2 (1.2-4.9) X10*3/uL [place] # (Auto) 1.4 H (0.1-1.2) X10*3/uL Eos # (Auto) 0.1 (0.0-0.4) X10*3/uL Baso # (Auto) 0.1 (0.0-0.2) X10*3/uL Abs Immat Gran (auto) 0.38 H (0.00-0.03) X10*3/uL Absolute Neuts (auto) 17.5 H (2.0-8.3) x10*3/uL Absolute Nucleated RBC 0.000 (0.0-0.012) X10*3/uL Nucleated RBC % (auto) 0.0 (0.0-0.2) /100WBC PT 12.3 (10.0-13.1) SEC INR 1.1 (0.9-1.1) Sodium 132 L (135-145) mmol/L Potassium 3.3 D (3.3-5.1) mmol/L Chloride 93 L (96-108) mmol/L Carbon Dioxide 29 (22-29) mmol/L Anion Gap 13 (12-20) BUN 55 H (9-16) mg/dL Creatinine 1.49 H (0.5-1.4) mg/dL Estim Creat Clear Calc 46.4 Estimated GFR 46 POC Glucose (60-115) mg/dL Random Glucose 223 H (60-115) mg/dL Lactic Acid (0.5-2.0) mmol/L Calcium 9.1 (8.4-10.2) mg/dL Magnesium 1.8 (1.6-2.6) mg/dL Total Bilirubin 0.4 (0.0-1.0) mg/dL Direct Bilirubin 0.2 (0.0-0.5) mg/dL AST 58 H (5-37) U/L ALT 49 H (0-40) U/L Alkaline Phosphatase 84 (39-117) U/L Total Creatine Kinase 324 H (38-174) U/L Troponin I High Sens (<3.5-35.0) ng/L B-Natriuretic Peptide (<100) pg/mL Total Protein 6.0 L (6.5-8.0) g/dL Albumin 3.5 (3.5-5.0) g/dL Lipase 14 (8-78) U/L Urine Color Urine Appearance Urine pH (5.0-9.0) Ur Specific [place] (1.005-1.025) Urine Protein (Neg-Trace) mg/dL Urine Glucose (UA) (Negative) mg/dL Urine Ketones (Negative) mg/dL Urine Blood (Negative) Urine Nitrite (Negative) Ur Leukocyte Esterase (Negative) Urine RBC (0-2) /HPF Urine WBC (0-5) /HPF Ur Squamous Epith Cells (0-2) /HPF Urine Bacteria (None Seen) Hyaline Casts (0-2) /LPF COVID-19 ([facility]) (Negative) COVID-19 Clin Com 02/01/23 02/01/23 02/01/23 Range/Units 12:10 12:10 12:10 WBC (4.8-10.8) X10*3/uL RBC (4.60-5.80) X10*6/uL Hgb (14.0-18.0) g/dl Hct (42.0-52.0) % MCV (80.0-98.0) fL MCH (27.0-33.0) pg MCHC (31.0-36.0) g/dl RDW (11.0-16.0) % Plt Count (160-400) X10*3/uL MPV (9.4-12.4) fL Immature Gran % (Auto) (0.0-0.4) % Neut % (Auto) (45-73) % Lymph % (Auto) (20-40) % [place] % (Auto) (2-11) % Eos % (Auto) (0-4) % Baso % (Auto) (0-2) % Lymph # (Auto) (1.2-4.9) X10*3/uL [place] # (Auto) (0.1-1.2) X10*3/uL Eos # (Auto) (0.0-0.4) X10*3/uL Baso # (Auto) (0.0-0.2) X10*3/uL Abs Immat Gran (auto) (0.00-0.03) X10*3/uL Absolute Neuts (auto) (2.0-8.3) x10*3/uL Absolute Nucleated RBC (0.0-0.012) X10*3/uL Nucleated RBC % (auto) (0.0-0.2) /100WBC PT (10.0-13.1) SEC INR (0.9-1.1) Sodium (135-145) mmol/L Potassium (3.3-5.1) mmol/L Chloride (96-108) mmol/L Carbon Dioxide (22-29) mmol/L Anion Gap (12-20) BUN (9-16) mg/dL Creatinine (0.5-1.4) mg/dL Estim Creat Clear Calc Estimated GFR POC Glucose (60-115) mg/dL Random Glucose (60-115) mg/dL Lactic Acid 0.8 (0.5-2.0) mmol/L Calcium (8.4-10.2) mg/dL Magnesium (1.6-2.6) mg/dL Total Bilirubin (0.0-1.0) mg/dL Direct Bilirubin (0.0-0.5) mg/dL AST (5-37) U/L ALT (0-40) U/L Alkaline Phosphatase (39-117) U/L Total Creatine Kinase (38-174) U/L Troponin I High Sens 9.9 D (<3.5-35.0) ng/L B-Natriuretic Peptide (<100) pg/mL Total Protein (6.5-8.0) g/dL Albumin (3.5-5.0) g/dL Lipase (8-78) U/L Urine Color Urine Appearance Urine pH (5.0-9.0) Ur Specific [place] (1.005-1.025) Urine Protein (Neg-Trace) mg/dL Urine Glucose (UA) (Negative) mg/dL Urine Ketones (Negative) mg/dL Urine Blood (Negative) Urine Nitrite (Negative) Ur Leukocyte Esterase (Negative) Urine RBC (0-2) /HPF Urine WBC (0-5) /HPF Ur Squamous Epith Cells (0-2) /HPF Urine Bacteria (None Seen) Hyaline Casts (0-2) /LPF COVID-19 ([facility]) Negative (Negative) COVID-19 Clin Com See Note 02/01/23 02/01/23 02/01/23 Range/Units 12:10 15:48 17:20 WBC (4.8-10.8) X10*3/uL RBC (4.60-5.80) X10*6/uL Hgb (14.0-18.0) g/dl Hct (42.0-52.0) % MCV (80.0-98.0) fL MCH (27.0-33.0) pg MCHC (31.0-36.0) g/dl RDW (11.0-16.0) % Plt Count (160-400) X10*3/uL MPV (9.4-12.4) fL Immature Gran % (Auto) (0.0-0.4) % Neut % (Auto) (45-73) % Lymph % (Auto) (20-40) % [place] % (Auto) (2-11) % Eos % (Auto) (0-4) % Baso % (Auto) (0-2) % Lymph # (Auto) (1.2-4.9) X10*3/uL [place] # (Auto) (0.1-1.2) X10*3/uL Eos # (Auto) (0.0-0.4) X10*3/uL Baso # (Auto) (0.0-0.2) X10*3/uL Abs Immat Gran (auto) (0.00-0.03) X10*3/uL Absolute Neuts (auto) (2.0-8.3) x10*3/uL Absolute Nucleated RBC (0.0-0.012) X10*3/uL Nucleated RBC % (auto) (0.0-0.2) /100WBC PT (10.0-13.1) SEC INR (0.9-1.1) Sodium (135-145) mmol/L Potassium (3.3-5.1) mmol/L Chloride (96-108) mmol/L Carbon Dioxide (22-29) mmol/L Anion Gap (12-20) BUN (9-16) mg/dL Creatinine (0.5-1.4) mg/dL Estim Creat Clear Calc Estimated GFR POC Glucose (60-115) mg/dL Random Glucose (60-115) mg/dL Lactic Acid (0.5-2.0) mmol/L Calcium (8.4-10.2) mg/dL Magnesium (1.6-2.6) mg/dL Total Bilirubin (0.0-1.0) mg/dL Direct Bilirubin (0.0-0.5) mg/dL AST (5-37) U/L ALT (0-40) U/L Alkaline Phosphatase (39-117) U/L Total Creatine Kinase (38-174) U/L Troponin I High Sens 8.7 (<3.5-35.0) ng/L B-Natriuretic Peptide 16 (<100) pg/mL Total Protein (6.5-8.0) g/dL Albumin (3.5-5.0) g/dL Lipase (8-78) U/L Urine Color Yellow Urine Appearance Clear Urine pH 5.5 (5.0-9.0) Ur Specific [place] 1.020 (1.005-1.025) Urine Protein 30 (1+) H (Neg-Trace) mg/dL Urine Glucose (UA) 250 H (Negative) mg/dL Urine Ketones Negative (Negative) mg/dL Urine Blood Negative (Negative) Urine Nitrite Negative (Negative) Ur Leukocyte Esterase Negative (Negative) Urine RBC 0-2 (0-2) /HPF Urine WBC 0-5 (0-5) /HPF Ur Squamous Epith Cells 0-2 (0-2) /HPF Urine Bacteria None Seen (None Seen) Hyaline Casts 0-2 (0-2) /LPF COVID-19 ([facility]) (Negative) COVID-19 Clin Com 02/01/23 Range/Units 18:56 WBC (4.8-10.8) X10*3/uL RBC (4.60-5.80) X10*6/uL Hgb (14.0-18.0) g/dl Hct (42.0-52.0) % MCV (80.0-98.0) fL MCH (27.0-33.0) pg MCHC (31.0-36.0) g/dl RDW (11.0-16.0) % Plt Count (160-400) X10*3/uL MPV (9.4-12.4) fL Immature Gran % (Auto) (0.0-0.4) % Neut % (Auto) (45-73) % Lymph % (Auto) (20-40) % [place] % (Auto) (2-11) % Eos % (Auto) (0-4) % Baso % (Auto) (0-2) % Lymph # (Auto) (1.2-4.9) X10*3/uL [place] # (Auto) (0.1-1.2) X10*3/uL Eos # (Auto) (0.0-0.4) X10*3/uL Baso # (Auto) (0.0-0.2) X10*3/uL Abs Immat Gran (auto) (0.00-0.03) X10*3/uL Absolute Neuts (auto) (2.0-8.3) x10*3/uL Absolute Nucleated RBC (0.0-0.012) X10*3/uL Nucleated RBC % (auto) (0.0-0.2) /100WBC PT (10.0-13.1) SEC INR (0.9-1.1) Sodium (135-145) mmol/L Potassium (3.3-5.1) mmol/L Chloride (96-108) mmol/L Carbon Dioxide (22-29) mmol/L Anion Gap (12-20) BUN (9-16) mg/dL Creatinine (0.5-1.4) mg/dL Estim Creat Clear Calc Estimated GFR POC Glucose 184 H (60-115) mg/dL Random Glucose (60-115) mg/dL Lactic Acid (0.5-2.0) mmol/L Calcium (8.4-10.2) mg/dL Magnesium (1.6-2.6) mg/dL Total Bilirubin (0.0-1.0) mg/dL Direct Bilirubin (0.0-0.5) mg/dL AST (5-37) U/L ALT (0-40) U/L Alkaline Phosphatase (39-117) U/L Total Creatine Kinase (38-174) U/L Troponin I High Sens (<3.5-35.0) ng/L B-Natriuretic Peptide (<100) pg/mL Total Protein (6.5-8.0) g/dL Albumin (3.5-5.0) g/dL Lipase (8-78) U/L Urine Color Urine Appearance Urine pH (5.0-9.0) Ur Specific [place] (1.005-1.025) Urine Protein (Neg-Trace) mg/dL Urine Glucose (UA) (Negative) mg/dL Urine Ketones (Negative) mg/dL Urine Blood (Negative) Urine Nitrite (Negative) Ur Leukocyte Esterase (Negative) Urine RBC (0-2) /HPF Urine WBC (0-5) /HPF Ur Squamous Epith Cells (0-2) /HPF Urine Bacteria (None Seen) Hyaline Casts (0-2) /LPF COVID-19 ([facility]) (Negative) COVID-19 Clin Com Independent Interpretation I performed an independent interpretation of an: EKG and Plain X-Ray Interpretation: high end of healing reviewed the EKG which shows normal sinus rhythm with a rate of 78, normal NE, normal QRS, normal QT Radiology Impression Discussion of test interpretation with radiology: I have reviewed the radiologist's reading. Radiologist Impression: FINDINGS: QUALITY OF STUDY/CONTRAST BOLUS: Suboptimal. The pulmonary arteries or the worst opacified arterial structure, with better opacification of the pulmonary veins and thoracic aorta. PULMONARY ARTERIES: No central or large segmental? THORACIC AORTA: No aneurysm. Three-vessel branching pattern is seen with a common trunk involving the brachiocephalic and left carotid but the left vertebral artery has its own origin from the arch. LUNG: No focal consolidation, nodules or masses. Bibasilar atelectasis is present. PLEURA: There is a tiny right pleural effusion. MEDIASTINUM: Normal heart size.? No pericardial effusion.? No hilar or mediastinal lymphadenopathy.? No evidence of septal bowing or right heart strain. Mild coronary calcium is present. CORONARY ARTERY CALCIFICATION: None visualized on this study. CHEST WALL/AXILLA: No axillary or internal mammary lymphadenopathy. There is bilateral gynecomastia. OSSEOUS STRUCTURES: No acute or suspicious osseous abnormality.? UPPER ABDOMEN: There is marked thickening of the distal esophagus. See report of CT abdomen and pelvis performed contemporaneously. No reflux of contrast into the hepatic veins to suggest elevated right heart pressures. CT/CT angio chest PE protocol IMPRESSION: 1.? No evidence of central or large segmental pulmonary emboli. 2.? Tiny right pleural effusion with bibasilar atelectasis. 3.? Marked thickening of the distal esophagus. Consider an esophagram or upper GI for further evaluatio QUE: 2 views of the chest were obtained. FINDINGS: The lungs are well expanded. No focal consolidation. No pleural effusion. Ectasia of the thoracic aorta may be due to AP technique. Cardiac silhouette is unchanged. XR/XR chest 2V IMPRESSION: Ectasia of the thoracic aorta possibly technical related to AP technique. Advise clinical correlation. FINDINGS: LUNG BASES: See report of chest CT same day. A tiny right pleural effusion is present.? LIVER, GALLBLADDER, AND BILIARY TREE: The liver is enlarged measuring 18.3 cm in greatest length and has a mildly nodular border (for example see anterior left lobe 15:20). ? No focal hepatic lesion or biliary ductal dilatation is present. The gallbladder is unremarkable with no evidence of radiopaque gallstones, gallbladder wall thickening, or obvious pericholecystic inflammatory changes.? PANCREAS: Unremarkable.? SPLEEN: Unremarkable.? ADRENAL GLANDS: Bilateral large adrenal masses are again seen, unchanged from 02/13/2022. On the noncontrast exam, these were shown to be consistent with benign adenomas as they were quite low in attenuation.? KIDNEYS AND URETERS: The kidneys are normal in size, shape, and attenuation. There is a benign water density Bosniak class I cyst at the upper pole the left kidney which needs no additional imaging or follow-up and has been present in the past. No solid renal masses. No hydronephrosis, hydroureter, or calculi seen. No perinephric stranding. ? BLADDER: Unremarkable.? GASTROINTESTINAL TRACT: Again seen is marked thickening of the distal esophagus. The small and large bowel are unremarkable. The appendix is unremarkable.? ABDOMINAL WALL: No significant hernia is appreciated.? LYMPH NODES: No retroperitoneal lymphadenopathy. VASCULAR: No aortic aneurysm. Minimal calcific atherosclerotic plaque is present. PELVIC VISCERA: There is mild BPH. Seminal vesicles appear normal.? OSSEOUS STRUCTURES: Unremarkable.? CT/CT abdomen pelvis w IV con IMPRESSION: A cause for the patient's abdominal pain and hypotension has not been found. ? Incidental note made of: 1.? Enlarged liver with mildly nodular border. 2.? Bilateral adrenal adenomas. 3.? Marked thickening of the distal esophagus. Consider an esophagram on upper endoscopy for further evaluation. Appearances could be due to poor distention 4.? Mild BPH. Independent Historian Clinical information obtained from an independent historian. History obtained from or confirmed by: EMS Discharge Plan Discharge Clinical Impression: Leukocytosis, TENA (acute kidney injury), Chest pain, Hypotension Patient Disposition: Admitted As Inpatient
[2023-02-01 12:33] LABS: Lactic Acid 0.8 mmol/L (0.5-2.0)
[2023-02-01 12:35] LABS: COVID-19 Test Negative (Negative); IDNOW Serial# BCCEAD1C
[2023-02-01 12:39] LABS: Alanine Aminotransferase 49 U/L (0-40); Albumin Level 3.5 g/dL (3.5-5.0); Alkaline Phosphatase 84 U/L (39-117); Anion Gap 13 (12-20); Aspartate Amino Transferase 58 U/L (5-37); Bilirubin Direct 0.2 mg/dL (0.0-0.5); Bilirubin Total 0.4 mg/dL (0.0-1.0); Blood Urea Nitrogen 55 mg/dL (9-16); Calcium 9.1 mg/dL (8.4-10.2); Carbon Dioxide 29 mmol/L (22-29); Chloride 93 mmol/L (96-108); Creatinine Clr Calc Pharmacy 46.4; Estimated Glomerular Filt Rate 46; Glucose Random 223 mg/dL (60-115); Lipase 14 U/L (8-78); Magnesium 1.8 mg/dL (1.6-2.6); Potassium 3.3 mmol/L (3.3-5.1); Sodium 132 mmol/L (135-145)
[2023-02-01 12:41] LABS: Troponin-I High Sensitivity 9.9 ng/L (<3.5-35.0)
--- NOTE | 2023-02-01 12:42 | PC.NURSE ---
lung sounds clear in upper lobes, crackles in bases
[2023-02-01] MEDS: cefTRIAXone sodium 1 GM in 0.9 % Sodium Chloride 50 ML IV (12:45)
[2023-02-01 13:14] LABS: B Type Natriuretic Peptide 16 pg/mL (<100)
[2023-02-01 16:27] LABS: Troponin-I High Sensitivity 8.7 ng/L (<3.5-35.0)
[2023-02-01] MEDS: iohexoL 350 MG/ML 100 ML INFUS..BTL IV (16:54)
[2023-02-01 17:29] LABS: Appearance Urine Clear; Color Urine Yellow; Glucose Urine UA 250 mg/dL (Negative); Leukocyte Esterase Urine Negative (Negative); Nitrite Urine Negative (Negative); PH 5.5 (5.0-9.0); UMIC TRIGGER UACC YES; Urine Blood Negative (Negative); Urine Ketones Negative (Negative); Urine Protein 30 (1+) mg/dL (Neg-Trace)
[2023-02-01 17:31] LABS: Bacteria Urine None Seen (None Seen); Hyaline Casts Urine 0-2 /LPF (0-2); RBC Urine 0-2 /HPF (0-2); Squamous Epithelial Cell Urine 0-2 /HPF (0-2); WBC Urine 0-5 /HPF (0-5)
--- NOTE | 2023-02-01 17:42 | PC.NURSE ---
pt back from CT scan, vitals stable. reporting chest pain, will ctm
[2023-02-01 19:01] LABS: Glucose, Whole Blood 184 mg/dL (60-115)
--- NOTE | 2023-02-01 19:07 | PM.IMHP ---
History of Present Illness Date of Service: 02/01/23 Chief Complaint: Chest Pain This is a 72-year-old male with a pertinent history of insulin-dependent diabetes, essential hypertension, opioid use disorder, mixed hyperlipidemia, mood disorder, BPH, prior bimalleolar fracture, h/o left ankle abscess who presents to the emergency department for evaluation of chest discomfort. Patient states midsternal chest discomfort started yesterday suddenly when he was resting. It is worse with deep breathing. It does not increase with exertion and does not relieve with rest. No associated fever, chills, cough, dyspnea, palpitations. Patient states he has had poor p.o. intake for the last 2 days and has been feeling weak. Patient does have chronic left ankle discomfort and was admitted previously for left ankle cellulitis and abscess. He denies nausea, vomiting, changes in urinary or bowel habits. His last IV drug use was many months ago In the emergency department, patient's creatinine and WBC was found to be elevated Review of Systems Constitutional: Constitutional: Reports fatigue, Reports lethargy and Reports malaise Cardiovascular: Cardiovascular: Reports chest pain Respiratory: Respiratory: Reports no additional respiratory complaints Gastrointestinal: Gastrointestinal: Reports no additional gastrointestinal complaints Genitourinary: Genitourinary: Reports no additional male genitourinary complaints Endocrine: Endocrine: Reports fatigue PMFSH Medical History Anxiety CAD (coronary artery disease) Chronic constipation COPD (chronic obstructive pulmonary disease) COPD (chronic obstructive pulmonary disease) Diabetes mellitus Genital herpes GERD (gastroesophageal reflux disease) History of adenomatous polyp of colon History of fracture of left ankle Hypertension Hypertension Opioid dependence Opioid dependence on agonist therapy JAUN (obstructive sleep apnea) Pancreatic abnormality Post-traumatic arthritis of left ankle Prepatellar bursitis, left knee Family History Mother No problems noted. Father Liver cancer Surgical History History of ankle surgery S/P hardware removal Social History Household Members: Spouse Housing: Apartment Do you presently have visiting nurse or other home services: Yes Alcohol intake: never Patient Tobacco Use Status: Current everyday Tobacco user Tobacco use type: Cigarette Cigarettes Per Day: 4 Smoked in Last 30 Days: Yes e-Cigarette/Vaping Use: Currently Using Second Hand Smoke Exposure: No Substance Use Type: Heroin Advance Directives: Yes Advance Directives on File: Yes Advance Directives Date on File: 01/28/22 service: No Current occupational status: retired and disabled Current occupation: right handed Meds Allergies Allergy/AdvReac Type Severity Reaction Status Date / Time No Known Allergies Allergy Verified 01/06/23 13:06 Active Medications: Current Medications Pharmacy Consult (Consult Rx Perform Med Rec) 1 each MISCELLANE ONCE PRN PRN Reason: Consult order Home Medications Medication Instructions Recorded Confirmed Last Taken Type acetaminophen 500 mg tablet 1,000 mg PO Q8H PRN pain 02/01/23 02/01/23 Unknown History amlodipine 10 mg tablet 10 mg PO DAILY 02/01/23 02/01/23 02/01/23 History atorvastatin 40 mg tablet 40 mg PO BEDTIME 02/01/23 02/01/23 01/31/23 History buprenorphine 8 mg-naloxone 2 mg 8 mg sublingual BID 02/01/23 02/01/23 02/01/23 History sublingual film dorzolamide 22.3 mg-timolol 6.8 1 drp ophthalmic-Left BID 02/01/23 02/01/23 02/01/23 History mg/mL eye drops doxycycline hyclate 100 mg tablet 100 mg PO BID 02/01/23 02/01/23 02/01/23 History fluticasone propionate 110 1 puff inhalation BID 02/01/23 02/01/23 02/01/23 History mcg/actuation HFA aerosol inhaler (Flovent HFA) glipizide 5 mg tablet, extended 5 mg PO DAILY 02/01/23 02/01/23 02/01/23 History release 24 hr lisinopril 40 mg tablet 40 mg PO BID 02/01/23 02/01/23 02/01/23 History loratadine 10 mg tablet 10 mg PO DAILY 02/01/23 02/01/23 02/01/23 History metformin 1,000 mg tablet 1,000 mg PO BID 02/01/23 02/01/23 02/01/23 History metoprolol succinate 25 mg 25 mg PO DAILY 02/01/23 02/01/2323 History tablet,extended release 24 hr multivitamin-ferrous 1 tab PO DAILY 02/01/23 02/01/23 02/01/23 History fumarate-folic acid 18 mg-400 mcg tablet (Certavite-Antioxidant) olanzapine 5 mg tablet 5 mg PO BEDTIME 02/01/23 02/01/23 01/31/23 History omega-3 300 mg-dha 120 mg-epa 180 1 cap PO DAILY 02/01/23 02/01/23 02/01/23 History mg-fish oil 1,000 mg capsule,del rel omeprazole 20 mg capsule,delayed 20 mg PO DAILY@0630 02/01/23 02/01/23 Unknown History release oxybutynin chloride 5 mg 5 mg PO DAILY 02/01/23 02/01/23 02/01/23 History tablet,extended release 24 hr tamsulosin 0.4 mg capsule 0.4 mg PO BEDTIME 02/01/23 02/01/23 01/31/23 History trazodone 100 mg tablet 100 mg PO BEDTIME 02/01/23 02/01/23 01/31/23 History trazodone 150 mg tablet 300 mg PO BEDTIME 02/01/23 02/01/23 01/31/23 History Physical Exam Vital Signs and Narrative: Vital Signs: Last Vital Signs Temp 98.5 F 02/01/23 17:40 Pulse 86 02/01/23 18:49 Resp 18 02/01/23 18:38 BP 103/59 L 02/01/23 18:49 Pulse Ox 95 02/01/23 18:38 O2 Del Method Room Air 02/01/23 18:38 BMI result Body Mass Index 28.9 Elderly male lying in bed in no dist ress Neck supple, no JVD Regular rat e and rhythm, S1-S 2 heard Regular br eath sounds bilate rally, no wheezing or crackles appre ciated Abdomen sof t nontender, no gu arding, no rigidit y Patient is awake , alert and orient ed to self, place, time and person ; no focal motor de ficit Extremity: l eft ankle with swe lling, warmth and tenderness Psych: Normal mood Results Labs 02/01/23 12:10 02/01/23 12:10 Labs: Laboratory Results - last 24 hr 02/01/23 02/01/2323 12:10 12:10 12:10 MCV 83.8 MCH 29.0 MCHC 34.6 RDW 12.9 Plt Count 417 H MPV 8.7 L Immature Gran % (Auto) 1.8 H Neut % (Auto) 85.3 H Lymph % (Auto) 5.9 L [place] % (Auto) 6.6 Eos % (Auto) 0.2 Baso % (Auto) 0.2 Lymph # (Auto) 1.2 [place] # (Auto) 1.4 H Eos # (Auto) 0.1 Baso # (Auto) 0.1 Abs Immat Gran (auto) 0.38 H Absolute Neuts (auto) 17.5 H Absolute Nucleated RBC 0.000 Nucleated RBC % (auto) 0.0 PT 12.3 INR 1.1 Anion Gap 13 Estim Creat Clear Calc 46.4 Estimated GFR 46 POC Glucose Random Glucose 223 H Lactic Acid Calcium 9.1 Magnesium 1.8 Total Bilirubin 0.4 Direct Bilirubin 0.2 AST 58 H ALT 49 H Alkaline Phosphatase 84 Total Creatine Kinase 324 H Troponin I High Sens B-Natriuretic Peptide Total Protein 6.0 L Albumin 3.5 Lipase 14 Urine Color Urine Appearance Urine pH Ur Specific [place] Urine Protein Urine Glucose (UA) Urine Ketones Urine Blood Urine Nitrite Ur Leukocyte Esterase Urine RBC Urine WBC Ur Squamous Epith Cells Urine Bacteria Hyaline Casts COVID-19 ([facility]) COVID-19 Clin Com 02/01/23 02/01/23 02/01/23 12:10 12:10 12:10 MCV MCH MCHC RDW Plt Count MPV Immature Gran % (Auto) Neut % (Auto) Lymph % (Auto) [place] % (Auto) Eos % (Auto) Baso % (Auto) Lymph # (Auto) [place] # (Auto) Eos # (Auto) Baso # (Auto) Abs Immat Gran (auto) Absolute Neuts (auto) Absolute Nucleated RBC Nucleated RBC % (auto) PT INR Anion Gap Estim Creat Clear Calc Estimated GFR POC Glucose Random Glucose Lactic Acid 0.8 Calcium Magnesium Total Bilirubin Direct Bilirubin AST ALT Alkaline Phosphatase Total Creatine Kinase Troponin I High Sens 9.9 D B-Natriuretic Peptide Total Protein Albumin Lipase Urine Color Urine Appearance Urine pH Ur Specific [place] Urine Protein Urine Glucose (UA) Urine Ketones Urine Blood Urine Nitrite Ur Leukocyte Esterase Urine RBC Urine WBC Ur Squamous Epith Cells Urine Bacteria Hyaline Casts COVID-19 ([facility]) Negative COVID-19 Clin Com See Note 02/01/23 02/01/23 02/01/23 12:10 15:48 17:20 MCV MCH MCHC RDW Plt Count MPV Immature Gran % (Auto) Neut % (Auto) Lymph % (Auto) [place] % (Auto) Eos % (Auto) Baso % (Auto) Lymph # (Auto) [place] # (Auto) Eos # (Auto) Baso # (Auto) Abs Immat Gran (auto) Absolute Neuts (auto) Absolute Nucleated RBC Nucleated RBC % (auto) PT INR Anion Gap Estim Creat Clear Calc Estimated GFR POC Glucose Random Glucose Lactic Acid Calcium Magnesium Total Bilirubin Direct Bilirubin AST ALT Alkaline Phosphatase Total Creatine Kinase Troponin I High Sens 8.7 B-Natriuretic Peptide 16 Total Protein Albumin Lipase Urine Color Yellow Urine Appearance Clear Urine pH 5.5 Ur Specific [place] 1.020 Urine Protein 30 (1+) H Urine Glucose (UA) 250 H Urine Ketones Negative Urine Blood Negative Urine Nitrite Negative Ur Leukocyte Esterase Negative Urine RBC 0-2 Urine WBC 0-5 Ur Squamous Epith Cells 0-2 Urine Bacteria None Seen Hyaline Casts 0-2 COVID-19 ([facility]) COVID-19 Clin Com 02/01/23 18:56 MCV MCH MCHC RDW Plt Count MPV Immature Gran % (Auto) Neut % (Auto) Lymph % (Auto) [place] % (Auto) Eos % (Auto) Baso % (Auto) Lymph # (Auto) [place] # (Auto) Eos # (Auto) Baso # (Auto) Abs Immat Gran (auto) Absolute Neuts (auto) Absolute Nucleated RBC Nucleated RBC % (auto) PT INR Anion Gap Estim Creat Clear Calc Estimated GFR POC Glucose 184 H Random Glucose Lactic Acid Calcium Magnesium Total Bilirubin Direct Bilirubin AST ALT Alkaline Phosphatase Total Creatine Kinase Troponin I High Sens B-Natriuretic Peptide Total Protein Albumin Lipase Urine Color Urine Appearance Urine pH Ur Specific [place] Urine Protein Urine Glucose (UA) Urine Ketones Urine Blood Urine Nitrite Ur Leukocyte Esterase Urine RBC Urine WBC Ur Squamous Epith Cells Urine Bacteria Hyaline Casts COVID-19 ([facility]) COVID-19 Clin Com Imaging Radiologist's Impressions: Impressions Chest X-Ray 02/01/23 12:43 IMPRESSION: Ectasia of the thoracic aorta possibly technical related to AP technique. Advise clinical correlation. Abdomen/Pelvis CT 02/01/23 17:11 IMPRESSION: A cause for the patient's abdominal pain and hypotension has not been found. Incidental note made of: 1. Enlarged liver with mildly nodular border. 2. Bilateral adrenal adenomas. 3. Marked thickening of the distal esophagus. Consider an esophagram on upper endoscopy for further evaluation. Appearances could be due to poor distention 4. Mild BPH. Fleischner guidelines were followed. Chest CTA 02/01/23 17:11 IMPRESSION: 1. No evidence of central or large segmental pulmonary emboli. 2. Tiny right pleural effusion with bibasilar atelectasis. 3. Marked thickening of the distal esophagus. Consider an esophagram or upper GI for further evaluation. VTE: Negative, but limited. Assessment and Plan (1) Leukocytosis: Status: Acute (2) TENA (acute kidney injury): Status: Acute (3) Chest pain: Status: Acute Plan This is a 72-year-old male with a pertinent history of insulin-dependent diabetes, essential hypertension, opioid use disorder, mixed hyperlipidemia, mood disorder, BPH, prior bimalleolar fracture, h/o left ankle abscess who presents to the emergency department for evaluation of chest discomfort. #.? Atypical chest discomfort: Will admit patient for observation with telemetry. Trending troponin. Obtaining echo. #.? Leukocytosis: Received ceftriaxone at admission. Obtaining echo as above and also obtaining left ankle x-ray. Trend WBC count, blood culture obtained #. Acute kidney injury stage I, nonoliguric. Monitor creatinine and urine output with fluid resuscitation. Avoid nephrotoxins #.? Opioid use disorder -continue buprenorphine and naloxone #.? Mood disorder -continue trazodone and Zyprexa #.? Essential hypertension -hold, restart as appropriate #.? BPH -on Flomax and oxybutynin #.? Insulin-dependent type 2 diabetes mellitus with hyperglycemia -hold p.o. medications.? Initiating Accu-Cheks with sliding scale insulin #. Chronic normocytic anemia -Hb above transfusion threshold #. Gastroesophageal reflux disease: On PPI Med rec pending DVT prophylaxis: Lovenox 40 mg daily Cardiac diet Full code Time Spent With Patient Time: Total time managing care of this patient today ____ minutes. Quality Stroke Does the patient have a stroke diagnosis?: No VTE Prior VTE?: No VTE Risk Level:: Medical - moderate - high VTE Device Contraindication: Treatment Not Indicated VTE Drug Contraindication: N/A - Med Ordered
--- NOTE | 2023-02-01 19:29 | PHA.MEDREC ---
Pharmacy Consult ? Medication Reconciliation Pharmacy has completed the medication reconciliation.
[2023-02-01] MEDS: Enoxaparin Sodium 40 MG/0.4 ML SYRINGE SUBCUT (19:49)
[2023-02-01] MEDS: 0.9 % Sodium Chloride 500 ML IV (19:49)
[2023-02-01 22:16] LABS: Glucose, Whole Blood 171 mg/dL (60-115)
[2023-02-01] MEDS: OLANZapine 5 MG TABLET PO (22:17)
[2023-02-01] MEDS: Insulin Lispro 100 UNIT/ML 3 ML VIAL SUBCUT (22:17)
[2023-02-01] MEDS: traZODone HCL 100 MG TABLET 400 MG PO (22:17)
[2023-02-02] VITALS (7 sets, daily range): BP systolic 131–163; BP diastolic 61–81; PULSE 76–89; RESP 14–18; TEMP 36.5–37.3; O2SAT 93–97
[2023-02-02] MEDS: 0.9 % Sodium Chloride Flush 3 ML SYRINGE IVFLUSH ×3 (02:38→15:09)
--- NOTE | 2023-02-02 07:00 | CA_ITS ---
Transthoracic Echocardiogram Patient (Last, First, Middle): Rosie Graza, Gender: Male Date of : 1950 Age: 72 Procedure Date: 02/02/2023 Procedure Type: Transthoracic Echocardiogram Location: S3W Height: 172.72 cm Weight: 88. kg BSA: 2.02 m2 Heart Rate: bpm BP: 133 / 67 mmHg Chief Engineering Division: [place] Referring MD: Chantal Borjas MD Symptoms: chest pain Study Quality: Fair/Contrast Conclusions: - Normal left ventricular size and systolic function. There is mildly increased left ventricular wall thickness. The visually estimated ejection fraction is between 55-60%. - Normal right ventricular cavity size and systolic function. - There is mild dilatation of the ascending aorta measuring 3.70 cm. Findings Procedure Information Contrast agent, definity, is being given per protocol without apparent complications. Left Ventricle Normal left ventricular size and systolic function. There is mildly increased left ventricular wall thickness. The visually estimated ejection fraction is between 55-60%. There is no evidence of regional wall motion abnormalities. Diastolic function is indeterminate on the basis of available data. Right Ventricle Normal right ventricular cavity size and systolic function. Atria The left atrium is likely dilated. Aortic Valve Normal aortic valve structure and function. There is no aortic valve stenosis. There is no aortic valve regurgitation. Mitral Valve The mitral valve appears normal. There is no mitral valve regurgitation. There is no mitral valve stenosis. Pulmonic Valve The pulmonic valve is likely normal. Tricuspid Valve Normal tricuspid valve structure and function. There is trace tricuspid valve regurgitation. Tricuspid regurgitation envelope is inadequate for calculation of right ventricular systolic pressure. Normal right atrial pressure. Great Vessels There is mild dilatation of the ascending aorta measuring 3.70 cm. The visualized portions of the pulmonary artery and branches are normal. Venous The inferior vena cava is normal in size and collapses greater than 50% with inspiration. Pericardium/Pleural There is no evidence of pericardial effusion. Prior Study Comparison Changes noted compared to prior study dated: 02/17/2022. Mild dilatation of ascending aorta. Measurements 2D Linear Measurements IVSd: 1.30 0.6-0.9/0.6-1.0 cm LVIDd: 5.45 3.9-5.3/4.2-5.9 cm LVIDd Index: 2.70 2.4-3.2/2.2-3.1 cm/m2 LVIDs: 3.89 2.0-3.6 cm LVPWd: 0.90 0.7-1.1 cm LA Diam: 3.20 2.7-3.8/3.0-4.0 cm LAIDs Index: 1.58 1.5-2.3 cm/m2 LV Mass: 297.98 67-162/88-224 g LV Mass Index: 147.52 43-95/49-115 g/m2 LVOT Diam: 2.40 3.0+(-)1.3 cm 2D Systolic Function EF 4C: 52.30 >55% EF 2C: 45.20 >55% EF BiP: 49.30 >55% Mitral Valve MV Pk E: 0.65 MV PK A: 0.99 MV Decel Time: 172.00 E/A: 0.70 E'Lateral: 7.07 E'Medial: 5.00 E/E' Med: 13.00 E/E' Lat: 9.20 PHT: 51.00 MVA PHT: 4.31 Decel [place]: 3.78 Aortic Valve AoV Pk Jacques: 1.79 AoV Mn Jacques: 1.24 AoV VTI: 0.29 AoV Pk Grad: 13.00 Aov Mn Grad: 7.00 CECE Cont.VTI: 3.89 LVOT LVOT Pk Jacques: 1.45 LVOT Mn Jacques: 0.98 LVOT VTI: 0.25 LVOT Pk Grad: 8.00 LVOT Mn Grad: 4.00 LVOT Diam: 2.40 LVOT Area: 4.52 Diastolic Function MV Pk E: 0.65 MV Pk A: 0.99 E/A: 0.70 E'Medial: 5.00 E/E' Med: 13.00 E' Laterial: 7.07 E/E' Lat: 9.20 Right Ventricle TAPSE (mm): 25.60 TVS' Jacques: 12.10 Tricuspid Valve RA Press: 3.00 Great Vessels Aorta Sinus of Valsalva: 3.55 2.0-3.5 cm Ao Asc: 3.70 2.1-3.4 cm Updated in Other Vendor System with Status of Final Franco Giordano MD electronically signed on 02/02/2023 8:09:52 PM with status of Final
[2023-02-02 07:18] LABS: Glucose, Whole Blood 205 mg/dL (60-115)
[2023-02-02 08:19] LABS: MANUAL DIFF FLAG NO
[2023-02-02 08:24] LABS: Basophils Percent Auto 0.2 % (0-2); Eosinophils Percent Auto 0.1 % (0-4); Hematocrit 33.8 % (42.0-52.0); Hemoglobin 11.7 g/dl (14.0-18.0); Imm Gran Abs Auto 0.27 X10*3/uL (0.00-0.03); Imm Gran Pct Auto 1.3 % (0.0-0.4); Lymphocytes Absolute Auto 1.7 X10*3/uL (1.2-4.9); Lymphocytes Percent Auto 8.4 % (20-40); Mean Corpuscular HGB Conc 34.6 g/dl (31.0-36.0); Mean Corpuscular Volume 83.7 fL (80.0-98.0); Mean Platelet Volume 9.1 fL (9.4-12.4); Monocytes Absolute Auto 1.2 X10*3/uL (0.1-1.2); Monocytes Percent Auto 5.8 % (2-11); Neutrophils Absolute Auto 17.4 x10*3/uL (2.0-8.3); Neutrophils Percent Auto 84.2 % (45-73); Platelet Count 406 X10*3/uL (160-400); Red Blood Count 4.04 X10*6/uL (4.60-5.80); Red Cell Distribution Width 12.7 % (11.0-16.0); White Blood Count 20.7 X10*3/uL (4.8-10.8)
[2023-02-02] MEDS: oxyBUTYnin chloride ER 5 MG TAB.ER.24 PO (08:39)
[2023-02-02] MEDS: Multivitamin TABLET 1 TAB PO (08:39)
[2023-02-02 08:40] LABS: Anion Gap 12 (12-20); C Reactive Protein 14.95 mg/dL (< or = 0.50); Calcium 8.7 mg/dL (8.4-10.2); Carbon Dioxide 26 mmol/L (22-29); Chloride 99 mmol/L (96-108); Glucose Random 183 mg/dL (60-115); Sodium 134 mmol/L (135-145)
[2023-02-02] MEDS: amLODIPine Besylate 10 MG TABLET PO (08:40)
[2023-02-02] MEDS: Loratadine 10 MG TABLET PO (08:40)
[2023-02-02] MEDS: Metoprolol Succinate ER 25 MG TAB.ER.24H PO (08:40)
[2023-02-02] MEDS: Insulin Lispro 100 UNIT/ML 3 ML VIAL SUBCUT ×2 (08:41→12:43)
[2023-02-02] MEDS: Magnesium Hydrox/Alum Hydrox 30 ML ORAL.SUSP PO (08:41)
[2023-02-02] MEDS: Pantoprazole Sodium 40 MG/10 ML VIAL IVPUSH ×2 (08:41→17:23)
[2023-02-02] MEDS: Acetaminophen 325 MG TABLET 650 MG PO (08:42)
[2023-02-02] MEDS: Buprenorphine/Naloxone 8/2 mg FILM 1 FILM SUBLINGUAL ×2 (08:42→20:52)
[2023-02-02 08:45] LABS: Troponin-I High Sensitivity 10.7 ng/L (<3.5-35.0)
[2023-02-02 08:55] LABS: Blood Urea Nitrogen 24 mg/dL (9-16); Estimated Glomerular Filt Rate > 60
--- NOTE | 2023-02-02 09:06 | PM.GICN ---
History of Present Illness Data of Consult Service Date: 02/02/23 Requesting physician: Monserrat Kay Primary Care Provider: Unknown Physician HPI Reason for consult: abn imaging esophagus 72-year-old male with a pertinent history of insulin-dependent diabetes, essential hypertension, opioid use disorder, mixed hyperlipidemia, mood disorder, BPH, prior bimalleolar fracture, h/o left ankle abscess who I am seeing for assessment for abn imaging with thickened esophagus. He initially presented with chest discomfort-midsternal worse with deep breathing but not associated with exertion or rest. Has also noted worsening appetite, and general malaise and weakness. Pain not worse with food. He denies melena, diarrhea. He has lost amybe 7# over 1 week. denies dsyphagia or GERD No associated fever, chills, cough, dyspnea, palpitations. he has hx of chronic left ankle discomfort and was admitted previously for left ankle cellulitis and abscess. Imaging done this admission with thickened abn appearing esophagus. Review of Systems Review of Systems: Constitutional : No Weight loss, No Fever, No Chills ENT/Mouth : No sore throat, No Rhinorrhea Eyes: No Swelling, No Redness Cardiovascular : + Chest Pain, No SOB, No Edema Respiratory : No Cough, No Sputum, No Wheezing Gastrointestinal : see HPI Genitourinary : NO Dysuria, No Urinary Frequency, No Hematuria, No Urgency Musculoskeletal : + joint pain, No Myalgias, No Joint Swelling Skin : No Skin Lesions, No rash Neuro : No Weakness, No Numbness, No Dizziness, No Headache Psych : No Anxiety/Panic, No Depression Heme/Lymph: No Bruising, No Lymphadenopathy Endocrine : No Polyuria, No Polydipsia All other systems reviewed and are negative. [facility] Past Medical History Medical History Anxiety CAD (coronary artery disease) Chronic constipation COPD (chronic obstructive pulmonary disease) COPD (chronic obstructive pulmonary disease) Diabetes mellitus Genital herpes GERD (gastroesophageal reflux disease) History of adenomatous polyp of colon History of fracture of left ankle Hypertension Hypertension Opioid dependence Opioid dependence on agonist therapy JAUN (obstructive sleep apnea) Pancreatic abnormality Post-traumatic arthritis of left ankle Prepatellar bursitis, left knee Family History Family History Mother No problems noted. Father Liver cancer Surgical History Surgical History History of ankle surgery S/P hardware removal Social History Social History Household Members: Spouse Housing: Apartment Do you presently have visiting nurse or other home services: Yes Alcohol intake: never Patient Tobacco Use Status: Former Tobacco user Tobacco use type: Cigarette Cigarettes Per Day: 4 Smoked in Last 30 Days: Yes e-Cigarette/Vaping Use: Currently Using Second Hand Smoke Exposure: No Substance Use Type: Heroin Advance Directives: Yes Advance Directives on File: Yes Advance Directives Date on File: 01/28/22 Nutrition Risks: No Nutritional Risk service: No Current occupational status: retired and disabled Current occupation: right handed Meds Allergies Allergy/AdvReac Type Severity Reaction Status Date / Time No Known Allergies Allergy Verified 01/06/23 13:06 Active Medications: Current Medications Acetaminophen (Acetaminophen 325 Mg Tablet) 650 mg PO Q6H PRN PRN Reason: Pain, Mild (Pain Scale 1-3) Last Admin: 02/02/23 08:42 Dose: 650 mg Amlodipine Besylate (Amlodipine Besylate 10 Mg Tablet) 10 mg PO DAILY [facility]; Protocol Last Admin: 02/02/23 08:40 Dose: 10 mg Atorvastatin Calcium (Atorvastatin Calcium 40 Mg Tablet) 40 mg PO BEDTIME [facility] Buprenorphine/Naloxone (Buprenorphine/Naloxone 8/2 Mg Film) 1 film SUBLINGUAL BID [facility] Last Admin: 02/02/23 08:42 Dose: 1 film Dorzolamide/Timolol (Dorzolamide/Timolo 2.23%/0.68% 10 Ml Drbtl) 1 drop EYE-LEFT BID [facility] Enoxaparin Sodium (Enoxaparin Sodium 40 Mg/0.4 Ml Syringe) 40 mg SUBCUT Q24H [facility] Last Admin: 02/01/23 19:49 Dose: 40 mg Fluticasone Propionate (Fluticasone Propionate 100 Mcg Blst.W.Dev) 1 puff INHALE RBID [facility] Glucose (Glucose Gel 15 Gm Gel..Gram.) 15 gm PO Q15M PRN; Protocol PRN Reason: per Hypoglycemia Standing Ord. Dextrose (D10) 250 mls @ 750 mls/hr IV Q15M PRN; Protocol PRN Reason: per Hypoglycemia Standing Ord. Insulin Human Lispro (Insulin Lispro 100 Unit/Ml 3 Ml Vial) 0 unit SUBCUT QIDACHS [facility]; Protocol Last Admin: 02/02/23 08:41 Dose: 4 unit Lisinopril (Lisinopril 40 Mg Tablet) 40 mg PO BID [facility]; Protocol Loratadine (Loratadine 10 Mg Tablet) 10 mg PO DAILY [facility] Last Admin: 02/02/23 08:40 Dose: 10 mg Melatonin (Melatonin 3 Mg Tablet) 6 mg PO BEDTIME PRN PRN Reason: Insomnia Metoprolol Succinate (Metoprolol Succinate Er 25 Mg Tab.Er.24h) 25 mg PO DAILY [facility]; Protocol Last Admin: 02/02/23 08:40 Dose: 25 mg Multivitamins/Vitamin C (Multivitamin Tablet) 1 tab PO DAILY [facility] Last Admin: 02/02/23 08:39 Dose: 1 tab Olanzapine (Olanzapine 5 Mg Tablet) 5 mg PO BEDTIME [facility] Last Admin: 02/01/23 22:17 Dose: 5 mg Ondansetron HCl (Ondansetron Hcl 4 Mg/2 Ml Vial) 4 mg IVPUSH Q8H PRN PRN Reason: Nausea and Vomiting Oxybutynin Chloride (Oxybutynin Chloride Er 5 Mg Tab.Er.24) 5 mg PO DAILY [facility] Last Admin: 02/02/23 08:39 Dose: 5 mg Pantoprazole Sodium (Pantoprazole Sodium 40 Mg/10 Ml Vial) 40 mg IVPUSH BID@0630,1630 [facility] Last Admin: 02/02/23 08:41 Dose: 40 mg Pharmacy Consult (Consult Rx Perform Med Rec) 1 each MISCELLANE ONCE PRN PRN Reason: Consult order Sodium Chloride (0.9 % Sodium Chloride Flush 3 Ml Syringe) 3 ml IVFLUSH QSHIFT [facility] Last Admin: 02/02/23 08:41 Dose: 3 ml Tamsulosin HCl (Tamsulosin Hcl 0.4 Mg Capsule) 0.4 mg PO BEDTIME [facility] Trazodone HCl (Trazodone Hcl 100 Mg Tablet) 400 mg PO BEDTIME [facility] Last Admin: 02/01/23 22:17 Dose: 400 mg Trazodone HCl (Trazodone Hcl 100 Mg Tablet) 100 mg PO BEDTIME [facility] Trazodone HCl (Trazodone Hcl 100 Mg Tablet) 300 mg PO BEDTIME [facility] Home Medications Medication Instructions Recorded Confirmed Last Taken Type acetaminophen 500 mg tablet 1,000 mg PO Q8H PRN pain 02/01/23 02/01/23 Unknown History amlodipine 10 mg tablet 10 mg PO DAILY 02/01/23 02/01/23 02/01/23 History atorvastatin 40 mg tablet 40 mg PO BEDTIME 02/01/23 02/01/23 01/31/23 History buprenorphine 8 mg-naloxone 2 mg 8 mg sublingual BID 02/01/23 02/01/23 02/01/23 History sublingual film dorzolamide 22.3 mg-timolol 6.8 1 drp ophthalmic-Left BID 02/01/23 02/01/23 02/01/23 History mg/mL eye drops doxycycline hyclate 100 mg tablet 100 mg PO BID 02/01/23 02/01/23 02/01/23 History fluticasone propionate 110 1 puff inhalation BID 02/01/23 02/01/23 02/01/23 History mcg/actuation HFA aerosol inhaler (Flovent HFA) glipizide 5 mg tablet, extended 5 mg PO DAILY 02/01/23 02/01/23 02/01/23 History release 24 hr lisinopril 40 mg tablet 40 mg PO BID 02/01/23 02/01/23 02/01/23 History loratadine 10 mg tablet 10 mg PO DAILY 02/01/23 02/01/23 02/01/23 History metformin 1,000 mg tablet 1,000 mg PO BID 02/01/23 02/01/23 02/01/23 History metoprolol succinate 25 mg 25 mg PO DAILY 02/01/23 02/01/23 02/01/23 History tablet,extended release 24 hr multivitamin-ferrous 1 tab PO DAILY 02/01/23 02/01/23 02/01/23 History fumarate-folic acid 18 mg-400 mcg tablet (Certavite-Antioxidant) olanzapine 5 mg tablet 5 mg PO BEDTIME 02/01/23 02/01/23 01/31/23 History omega-3 300 mg-dha 120 mg-epa 180 1 cap PO DAILY 02/01/23 02/01/23 02/01/23 History mg-fish oil 1,000 mg capsule,del rel omeprazole 20 mg capsule,delayed 20 mg PO DAILY@0630 06/05/23 06/05/23 Unknown History release oxybutynin chloride 5 mg 5 mg PO DAILY 02/01/23 02/01/23 02/01/23 History tablet,extended release 24 hr tamsulosin 0.4 mg capsule 0.4 mg PO BEDTIME 02/01/23 02/01/23 01/31/23 History trazodone 100 mg tablet 100 mg PO BEDTIME 02/01/23 02/01/23 01/31/23 History trazodone 150 mg tablet 300 mg PO BEDTIME 02/01/23 02/01/23 01/31/23 History Physical Exam Vital Signs: Vital Signs: Last Vital Signs Temp 98.8 F 02/02/23 07:50 Pulse 76 02/02/23 07:50 Resp 18 02/02/23 07:50 BP 140/76 H 02/02/23 07:50 Pulse Ox 95 02/02/23 07:50 O2 Del Method Room Air 02/02/23 07:50 BMI result Body Mass Index 29.6 EXAM: GENERAL: The patient is well developed and nontoxic. VITAL SIGNS:see workflow HEENT: Nonicteric sclerae, PERRLA, EOMI. Oropharynx clear. Moist mucous membranes. Conjunctivae appear well perfused. No thyroid mass. CHEST: Chest wall is tender HEART: Regular rate and rhythm without murmurs. LUNGS: Crackles left lower lung ABDOMEN: Soft, positive bowel sounds, nontender, no organomegaly.no flank tenderness SKIN: No rash, no excessive bruising, petechiae, or purpura. NEUROLOGIC: Cranial nerves II-XII intact without motor/sensory deficit. psych: nml affect Results Labs 02/02/23 07:57 02/02/23 07:57 Labs: Short CBC 02/01/23 02/02/23 Range/Units 12:10 07:57 WBC 20.6 H 20.7 H (4.8-10.8) X10*3/uL Hgb 12.0 L 11.7 L (14.0-18.0) g/dl Hct 34.7 L 33.8 L (42.0-52.0) % Plt Count 417 H 406 H (160-400) X10*3/uL BMP 02/01/23 02/02/23 12:10 07:57 Sodium 132 L 134 L Potassium 3.3 D 3.0 L Chloride 93 L 99 Carbon Dioxide 29 26 BUN 55 H 24 H Creatinine 1.49 H 0.66 Calcium 9.1 8.7 Cardiac Enzymes 02/01/23 02/02/23 Range/Units 12:10 07:57 Total Creatine Kinase 324 H 90 (38-174) U/L Liver Function 02/01/23 Range/Units 12:10 Total Bilirubin 0.4 (0.0-1.0) mg/dL Direct Bilirubin 0.2 (0.0-0.5) mg/dL AST 58 H (5-37) U/L ALT 49 H (0-40) U/L Alkaline Phosphatase 84 (39-117) U/L Albumin 3.5 (3.5-5.0) g/dL Urine 02/01/23 Range/Units 17:20 Urine Color Yellow Urine Appearance Clear Urine pH 5.5 (5.0-9.0) Ur Specific [place] 1.020 (1.005-1.025) Urine Protein 30 (1+) H (Neg-Trace) mg/dL Urine Glucose (UA) 250 H (Negative) mg/dL Imaging CT scan - chest: Attestation: I personally reviewed and interpreted this imaging study as follows: (stranding chest wall tissue, thickened esophagus willem distally) Assessment and Plan (1) Chest pain: Status: Acute Plan 1/ chest pain, with abn imaging of esophagus maybe 2/2 esophagitis, vs infectious etiology or malignancy or uncontrolled GERD, imaging also with stranding in the chest wall soft tissues, may be playing a role PLAN: 1/ EGD tomorrow for further assessment -can keep on PPI in meantime Time Spent With Patient Time: Total time managing care of this patient today ____ minutes. Procedures Date of Service Date of Service: 02/02/23
[2023-02-02 11:29] LABS: Glucose, Whole Blood 252 mg/dL (60-115)
[2023-02-02] MEDS: Dorzolamide/Timolo 2.23%/0.68% 10 ML DRBTL 1 DROP EYE-LEFT ×2 (12:43→20:52)
--- NOTE | 2023-02-02 14:22 | HO.PM.IMPN ---
Subjective Subjective Date of Service: 02/02/23 Interval History: c/o epigastric and substernal discomfort L ankle swelling, completed course of antibiotics and saw Dr Alan in December Review of Systems Review of Systems: Yes all other systems are reviewed and are negative Physical Exam Vital Signs: Vital Signs: Last Vital Signs Temp 97.7 F 02/02/23 12:00 Pulse 80 02/02/23 12:00 Resp 18 02/02/23 12:00 BP 131/61 02/02/23 12:00 Pulse Ox 96 02/02/23 12:00 O2 Del Method Room Air 02/02/23 12:00 BMI result Body Mass Index 29.6 Gen: in no acute distress HEENT: sclera anicteric, moist mucus membranes Neck: supple Lungs: clear to auscultation bilaterally Heart: regular rate and rhythm, no murmurs Abd: soft, egpiastric tenderness Ext: L ankle with swelling medially Skin: warm/well-perfused Neuro: alert and oriented x3, no focal findings Psych: appropriate affect Objective Data Active Medications Acetaminophen (Acetaminophen 325 Mg Tablet) 650 mg PO Q6H PRN PRN Reason: Pain, Mild (Pain Scale 1-3) Last Admin: 02/02/23 08:42 Dose: 650 mg Documented By: PAO Amlodipine Besylate (Amlodipine Besylate 10 Mg Tablet) 10 mg PO DAILY [facility]; Protocol Last Admin: 02/02/23 08:40 Dose: 10 mg Documented By: PAO Atorvastatin Calcium (Atorvastatin Calcium 40 Mg Tablet) 40 mg PO BEDTIME [facility] Buprenorphine/Naloxone (Buprenorphine/Naloxone 8/2 Mg Film) 1 film SUBLINGUAL BID [facility] Last Admin: 02/02/23 08:42 Dose: 1 film Documented By: PAO Dorzolamide/Timolol (Dorzolamide/Timolo 2.23%/0.68% 10 Ml Drbtl) 1 drop EYE-LEFT BID [facility] Last Admin: 02/02/23 12:43 Dose: 1 drop Documented By: PAO Enoxaparin Sodium (Enoxaparin Sodium 40 Mg/0.4 Ml Syringe) 40 mg SUBCUT Q24H [facility] Last Admin: 02/01/23 19:49 Dose: 40 mg Documented By: LIYA Fluticasone Propionate (Fluticasone Propionate 100 Mcg Blst.W.Dev) 1 puff INHALE RBID [facility] Glucose (Glucose Gel 15 Gm Gel..Gram.) 15 gm PO Q15M PRN; Protocol PRN Reason: per Hypoglycemia Standing Ord. Dextrose (D10) 250 mls @ 750 mls/hr IV Q15M PRN; Protocol PRN Reason: per Hypoglycemia Standing Ord. Insulin Human Lispro (Insulin Lispro 100 Unit/Ml 3 Ml Vial) 0 unit SUBCUT QIDACHS [facility]; Protocol Last Admin: 02/02/23 12:43 Dose: 6 unit Documented By: PAO Comments: lunch arrived late Lisinopril (Lisinopril 40 Mg Tablet) 40 mg PO BID [facility]; Protocol Loratadine (Loratadine 10 Mg Tablet) 10 mg PO DAILY [facility] Last Admin: 02/02/23 08:40 Dose: 10 mg Documented By: PAO Melatonin (Melatonin 3 Mg Tablet) 6 mg PO BEDTIME PRN PRN Reason: Insomnia Metoprolol Succinate (Metoprolol Succinate Er 25 Mg Tab.Er.24h) 25 mg PO DAILY [facility]; Protocol Last Admin: 02/02/23 08:40 Dose: 25 mg Documented By: PAO Multivitamins/Vitamin C (Multivitamin Tablet) 1 tab PO DAILY [facility] Last Admin: 02/02/23 08:39 Dose: 1 tab Documented By: PAO Olanzapine (Olanzapine 5 Mg Tablet) 5 mg PO BEDTIME [facility] Last Admin: 02/01/23 22:17 Dose: 5 mg Documented By: LIYA Ondansetron HCl (Ondansetron Hcl 4 Mg/2 Ml Vial) 4 mg IVPUSH Q8H PRN PRN Reason: Nausea and Vomiting Oxybutynin Chloride (Oxybutynin Chloride Er 5 Mg Tab.Er.24) 5 mg PO DAILY [facility] Last Admin: 02/02/23 08:39 Dose: 5 mg Documented By: PAO Pantoprazole Sodium (Pantoprazole Sodium 40 Mg/10 Ml Vial) 40 mg IVPUSH BID@0630,1630 [facility] Last Admin: 02/02/23 08:41 Dose: 40 mg Documented By: PAO Pharmacy Consult (Consult Rx Perform Med Rec) 1 each MISCELLANE ONCE PRN PRN Reason: Consult order Sodium Chloride (0.9 % Sodium Chloride Flush 3 Ml Syringe) 3 ml IVFLUSH QSHIFT [facility] Last Admin: 02/02/23 08:41 Dose: 3 ml Documented By: PAO Tamsulosin HCl (Tamsulosin Hcl 0.4 Mg Capsule) 0.4 mg PO BEDTIME [facility] Trazodone HCl (Trazodone Hcl 100 Mg Tablet) 400 mg PO BEDTIME [facility] Last Admin: 02/01/23 22:17 Dose: 400 mg Documented By: LIYA Trazodone HCl (Trazodone Hcl 100 Mg Tablet) 100 mg PO BEDTIME [facility] Trazodone HCl (Trazodone Hcl 100 Mg Tablet) 300 mg PO BEDTIME [facility] Labs 02/02/23 07:57 02/02/23 07:57 Labs: Laboratory Results - last 24 hr 02/01/23 02/01/23 02/01/23 15:48 17:20 18:56 MCV MCH MCHC RDW Plt Count MPV Immature Gran % (Auto) Neut % (Auto) Lymph % (Auto) [place] % (Auto) Eos % (Auto) Baso % (Auto) Lymph # (Auto) [place] # (Auto) Eos # (Auto) Baso # (Auto) Abs Immat Gran (auto) Absolute Neuts (auto) Absolute Nucleated RBC Nucleated RBC % (auto) Anion Gap Estim Creat Clear Calc Estimated GFR POC Glucose 184 H Random Glucose Calcium Total Creatine Kinase Troponin I High Sens 8.7 C-Reactive Protein Urine Color Yellow Urine Appearance Clear Urine pH 5.5 Ur Specific [place] 1.020 Urine Protein 30 (1+) H Urine Glucose (UA) 250 H Urine Ketones Negative Urine Blood Negative Urine Nitrite Negative Ur Leukocyte Esterase Negative Urine RBC 0-2 Urine WBC 0-5 Ur Squamous Epith Cells 0-2 Urine Bacteria None Seen Hyaline Casts 0-2 02/01/23 02/02/23 02/02/23 22:12 07:09 07:57 MCV MCH MCHC RDW Plt Count MPV Immature Gran % (Auto) Neut % (Auto) Lymph % (Auto) [place] % (Auto) Eos % (Auto) Baso % (Auto) Lymph # (Auto) [place] # (Auto) Eos # (Auto) Baso # (Auto) Abs Immat Gran (auto) Absolute Neuts (auto) Absolute Nucleated RBC Nucleated RBC % (auto) Anion Gap Estim Creat Clear Calc Estimated GFR POC Glucose 171 H 205 H Random Glucose Calcium Total Creatine Kinase Troponin I High Sens 10.7 C-Reactive Protein Urine Color Urine Appearance Urine pH Ur Specific [place] Urine Protein Urine Glucose (UA) Urine Ketones Urine Blood Urine Nitrite Ur Leukocyte Esterase Urine RBC Urine WBC Ur Squamous Epith Cells Urine Bacteria Hyaline Casts 02/02/23 02/02/23 02/02/23 07:57 07:57 11:25 MCV 83.7 MCH 29.0 MCHC 34.6 RDW 12.7 Plt Count 406 H MPV 9.1 L Immature Gran % (Auto) 1.3 H Neut % (Auto) 84.2 H Lymph % (Auto) 8.4 L [place] % (Auto) 5.8 Eos % (Auto) 0.1 Baso % (Auto) 0.2 Lymph # (Auto) 1.7 [place] # (Auto) 1.2 Eos # (Auto) 0.0 Baso # (Auto) 0.0 Abs Immat Gran (auto) 0.27 H Absolute Neuts (auto) 17.4 H Absolute Nucleated RBC 0.000 Nucleated RBC % (auto) 0.0 Anion Gap 12 Estim Creat Clear Calc 106.0 Estimated GFR > 60 POC Glucose 252 H Random Glucose 183 H Calcium 8.7 Total Creatine Kinase 90 Troponin I High Sens C-Reactive Protein 14.95 H Urine Color Urine Appearance Urine pH Ur Specific [place] Urine Protein Urine Glucose (UA) Urine Ketones Urine Blood Urine Nitrite Ur Leukocyte Esterase Urine RBC Urine WBC Ur Squamous Epith Cells Urine Bacteria Hyaline Casts Microbiology Microbiology Results: Microbiology 02/01/23 12:10 Blood Culture - Preliminary Blood - Venous No growth after 24 hours. 02/01/23 12:09 Blood Culture - Preliminary Blood - Venous No growth after 24 hours. Assessment and Plan (1) TENA (acute kidney injury): Status: Acute (2) Chest pain: Status: Acute Plan d#2 72yo M with hx DM2, HTN, OUD, HLD, mood disorder, PH, prior bimalleor fracture and hx hardware infection with MSSA s/p removal presenting with chest/epigastric pain found to have elevated WBCs, TENA, and marked thickening of the distal esophagus # esophageal thickening - GI consult, IV PPI, NPO for EGD tomorrow # atypical chest pain - Tn-I flat, likely more esophageal in origin, TTE pending # L ankle swelling with hx MSSA hardware infection - MR to assess for deep space infection, off antibiotics since at least May # TENA - resolved s/p IV fluid hydration # OUD - continue Suboxone # mood disorder - continue trazodone, olanzapine # HTN - continue amlodipine, metoprolol, lisinopril # BPH - continue tamsulosin, oxybutynin # DM2 - correction-dose lispro, DM diet # chronic normocytic anemia - Hb above transfusion threshold # VTE ppx: SCDs # dispo: TBD In my clinical judgment, the patient requires continued inpatient hospitalization for the following reasons: endoscopic evaluation Time Spent With Patient Time: Total time managing care of this patient today _45___ minutes. Quality Stroke Does the patient have a stroke diagnosis?: No VTE Prior VTE?: No VTE Risk Level:: Medical - moderate - high VTE Device Contraindication: Treatment Not Indicated VTE Drug Contraindication: N/A - Med Ordered
[2023-02-02] MEDS: Potassium Chloride ER 20 MEQ TAB.ER.PRT 40 MEQ PO (15:08)
[2023-02-02 16:03] LABS: Glucose, Whole Blood 151 mg/dL (60-115)
--- NOTE | 2023-02-02 16:04 | MHC.CM.PN ---
PATIENT ASLEEP AND NOT RESPONDING TO THIS AIR SUPPORT CONTROL OFFICER'S ATTEMPTS TO TALK. OMA LEFT BEDSIDE PER REVIEW PER REVIEW OF CHART, PATIENT LIVES ALONE. HE USES A WALKER IT IS UNCLEAR IF HE STILL HAS [facility]NA SERVICES IN THE HOME. NEEDS EGD TOMORROW AND LIKELY HOME AFTER. OMA 02/02 IN CHART
[2023-02-02 20:10] LABS: Glucose, Whole Blood 181 mg/dL (60-115)
[2023-02-02] MEDS: Fluticasone Propionate 100 MCG BLST.W.DEV 1 PUFF INHALE (20:17)
[2023-02-02] MEDS: Enoxaparin Sodium 40 MG/0.4 ML SYRINGE SUBCUT (20:51)
[2023-02-02] MEDS: Tamsulosin HCL 0.4 MG CAPSULE PO (20:52)
[2023-02-02] MEDS: Atorvastatin Calcium 40 MG TABLET PO (20:52)
[2023-02-02] MEDS: traZODone HCL 100 MG TABLET 400 MG PO (20:52)
[2023-02-02] MEDS: OLANZapine 5 MG TABLET PO (20:52)
[2023-02-03] VITALS: BP 148/77; PULSE 81; RESP 18; TEMP 36.8; O2SAT 93
[2023-02-03 03:52] VITALS: BP 133/70; PULSE 84; RESP 16; TEMP 36.5; O2SAT 96
[2023-02-03] MEDS: Pantoprazole Sodium 40 MG/10 ML VIAL IVPUSH (05:36)
[2023-02-03 05:59] LABS: Hemoglobin 11.4 g/dl (14.0-18.0); Mean Corpuscular HGB Conc 34.5 g/dl (31.0-36.0); Mean Corpuscular Hemoglobin 28.9 pg (27.0-33.0); Mean Corpuscular Volume 83.5 fL (80.0-98.0); Mean Platelet Volume 9.1 fL (9.4-12.4); Platelet Count 432 X10*3/uL (160-400); Red Blood Count 3.95 X10*6/uL (4.60-5.80); Red Cell Distribution Width 12.6 % (11.0-16.0); White Blood Count 15.3 X10*3/uL (4.8-10.8)
[2023-02-03 06:15] LABS: Anion Gap 13 (12-20); Blood Urea Nitrogen 12 mg/dL (9-16); Calcium 8.6 mg/dL (8.4-10.2); Carbon Dioxide 25 mmol/L (22-29); Chloride 102 mmol/L (96-108); Creatinine Clr Calc Pharmacy 98.5; Estimated Glomerular Filt Rate > 60; Glucose Random 202 mg/dL (60-115); Potassium 3.7 mmol/L (3.3-5.1); Sodium 136 mmol/L (135-145)
[2023-02-03 06:41] LABS: Erythrocyte Sedimentation Rate 55 MM/HR (0-15)
[2023-02-03 07:19] LABS: Glucose, Whole Blood 196 mg/dL (60-115)
[2023-02-03 07:38] VITALS: BP 166/81; PULSE 89; RESP 18; TEMP 36.7; O2SAT 96
[2023-02-03] MEDS: Fluticasone Propionate 100 MCG BLST.W.DEV 1 PUFF INHALE (08:02)
[2023-02-03 08:03] VITALS: RESP 18; O2SAT 95
[2023-02-03] MEDS: Metoprolol Succinate ER 25 MG TAB.ER.24H PO (08:16)
[2023-02-03] MEDS: amLODIPine Besylate 10 MG TABLET PO (08:16)
[2023-02-03] MEDS: Loratadine 10 MG TABLET PO (08:16)
[2023-02-03] MEDS: Multivitamin TABLET 1 TAB PO (08:16)
[2023-02-03] MEDS: oxyBUTYnin chloride ER 5 MG TAB.ER.24 PO (08:17)
[2023-02-03] MEDS: 0.9 % Sodium Chloride Flush 3 ML SYRINGE IVFLUSH (08:19)
[2023-02-03] MEDS: Buprenorphine/Naloxone 8/2 mg FILM 1 FILM SUBLINGUAL (08:19)
[2023-02-03 11:13] LABS: Glucose, Whole Blood 258 mg/dL (60-115)
--- NOTE | 2023-02-03 14:44 | PM.DS ---
DS: Providers Provider Date of Service: 02/03/23 Date of admission: 02/01/23 19:24 Date of discharge: 02/03/23 Primary care physician: Jax Moe MD Consults: 02/02/23 08:12 Consult to Gastroenterology Routine Consulting Provider: [facility] Reason for consultation: marked thickening of the distal esophagus DS: Diagnosis Discharge Diagnosis (1) TENA (acute kidney injury): Status: Acute (2) Chest pain: Status: Acute (3) Esophageal thickening: Status: Acute (4) Left against medical advice: Status: Acute (5) Leukocytosis: Status: Acute (6) S/P hardware removal: Status: Inactive DS: Summary Hospital Course Hospital Course: from admission H+P by hospitalist Elisha Borjas MD, 02/01/23: This is a 72-year-old male with a pertinent history of insulin-dependent diabetes, essential hypertension, opioid use disorder, mixed hyperlipidemia, mood disorder, BPH, prior bimalleolar fracture, h/o left ankle abscess who presents to the emergency department for evaluation of chest discomfort.? Patient states midsternal chest discomfort started yesterday suddenly when he was resting.? It is worse with deep breathing.? It does not increase with exertion and does not relieve with rest.? No associated fever, chills, cough, dyspnea, palpitations.? Patient states he has had poor p.o. intake for the last 2 days and has been feeling weak.? Patient does have chronic left ankle discomfort and was admitted previously for left ankle cellulitis and abscess.? He denies nausea, vomiting, changes in urinary or bowel habits.? His last IV drug use was many months ago In the emergency department, patient's creatinine and WBC was found to be elevated 72yo M with hx DM2, HTN, OUD, HLD, mood disorder, PH, prior bimalleor fracture and hx hardware infection with MSSA s/p removal presenting with chest/epigastric pain found to have elevated WBCs, TENA, and marked thickening of the distal esophagus hospital course by problem: # esophageal thickening - GI consult, IV PPI, NPO for planned EGD on 02/03/23. unfortunately, the patient then ate so the EGD had to be rescheduled for 02/04/23. # atypical chest pain - Tn-I flat, likely more esophageal in origin # L ankle swelling with hx MSSA hardware infection - MRI done to assess for deep space infection, off antibiotics since at least December # TENA - resolved s/p IV fluid hydration # against medical advice - Unfortunately, the patient decided to sign out of the hospital AGAINST MEDICAL ADVICE on 02/03/23 despite counseling on the risks of doing so. Time Spent with Patient Time attestation: Total time managing care of this patient today _35___ minutes. Discharge coordination time: Greater than 30 minutes Quality: Safe Use of Opioids Does Pt have an Active Cancer Diagnosis on the Problem List?: No Quality: Stroke Does the patient have a stroke diagnosis?: No Physical Exam Vital Signs: Vital Signs: Last Vital Signs Temp 98.0 F 02/03/23 07:38 Pulse 89 02/03/23 07:38 Resp 18 02/03/23 08:03 BP 166/81 H 02/03/23 07:38 Pulse Ox 96 02/03/23 07:38 O2 Del Method Room Air 02/03/23 07:38 BMI result Body Mass Index 29.6 Gen: in no acute distress HEENT: sclera anicteric, moist mucus membranes Neck: supple Lungs: clear to auscultation bilaterally Heart: regular rate and rhythm, no murmurs Abd: soft, non-tender, non-distended Ext: no edema Skin: warm/well-perfused Neuro: alert and oriented x3, no focal findings Psych: appropriate affect DS: Data Data Completed and Pending Completed studies during hospitalization [Text1]: Laboratory Results WBC 15.3 X10*3/uL (4.8-10.8) H 02/03/23 05:26 RBC 3.95 X10*6/uL (4.60-5.80) L 02/03/23 05:26 Hgb 11.4 g/dl (14.0-18.0) L 02/03/23 05:26 Hct 33.0 % (42.0-52.0) L 02/03/23 05:26 MCV 83.5 fL (80.0-98.0) 02/03/23 05:26 MCH 28.9 pg (27.0-33.0) 02/03/23 05:26 MCHC 34.5 g/dl (31.0-36.0) 02/03/23 05:26 RDW 12.6 % (11.0-16.0) 02/03/23 05:26 Plt Count 432 X10*3/uL (160-400) H 02/03/23 05:26 MPV 9.1 fL (9.4-12.4) L 02/03/23 05:26 Immature Gran % (Auto) 1.3 % (0.0-0.4) H 02/02/23 07:57 Neut % (Auto) 84.2 % (45-73) H 02/02/23 07:57 Lymph % (Auto) 8.4 % (20-40) L 02/02/23 07:57 [place] % (Auto) 5.8 % (2-11) 02/02/23 07:57 Eos % (Auto) 0.1 % (0-4) 02/02/23 07:57 Baso % (Auto) 0.2 % (0-2) 02/02/23 07:57 Lymph # (Auto) 1.7 X10*3/uL (1.2-4.9) 02/02/23 07:57 [place] # (Auto) 1.2 X10*3/uL (0.1-1.2) 02/02/23 07:57 Eos # (Auto) 0.0 X10*3/uL (0.0-0.4) 02/02/23 07:57 Baso # (Auto) 0.0 X10*3/uL (0.0-0.2) 02/02/23 07:57 Abs Immat Gran (auto) 0.27 X10*3/uL (0.00-0.03) H 02/02/23 07:57 Absolute Neuts (auto) 17.4 x10*3/uL (2.0-8.3) H 02/02/23 07:57 Absolute Nucleated RBC 0.000 X10*3/uL (0.0-0.012) 02/03/23 05:26 Nucleated RBC % (auto) 0.0 /100WBC (0.0-0.2) 02/03/23 05:26 ESR 55 MM/HR (0-15) H 02/03/23 05:26 PT 12.3 SEC (10.0-13.1) 02/01/23 12:10 INR 1.1 (0.9-1.1) 02/01/23 12:10 Sodium 136 mmol/L (135-145) 02/03/23 05:26 Potassium 3.7 mmol/L (3.3-5.1) D 02/03/23 05:26 Chloride 102 mmol/L (96-108) 02/03/23 05:26 Carbon Dioxide 25 mmol/L (22-29) 02/03/23 05:26 Anion Gap 13 (12-20) 02/03/23 05:26 BUN 12 mg/dL (9-16) 02/03/23 05:26 Creatinine 0.71 mg/dL (0.5-1.4) 02/03/23 05:26 Estim Creat Clear Calc 98.5 02/03/23 05:26 Estimated GFR > 60 02/03/23 05:26 POC Glucose 258 mg/dL (60-115) H 02/03/23 11:06 Random Glucose 202 mg/dL (60-115) H 02/03/23 05:26 Lactic Acid 0.8 mmol/L (0.5-2.0) 02/01/23 12:10 Calcium 8.6 mg/dL (8.4-10.2) 02/03/23 05:26 Magnesium 1.8 mg/dL (1.6-2.6) 02/01/23 12:10 Total Bilirubin 0.4 mg/dL (0.0-1.0) 02/01/23 12:10 Direct Bilirubin 0.2 mg/dL (0.0-0.5) 02/01/23 12:10 AST 58 U/L (5-37) H 02/01/23 12:10 ALT 49 U/L (0-40) H 02/01/23 12:10 Alkaline Phosphatase 84 U/L (39-117) 02/01/23 12:10 Total Creatine Kinase 90 U/L (38-174) 02/02/23 07:57 Troponin I High Sens 10.7 ng/L (<3.5-35.0) 02/02/23 07:57 C-Reactive Protein 14.95 mg/dL (< or = 0.50) H 02/02/23 07:57 B-Natriuretic Peptide 16 pg/mL (<100) 02/01/23 12:10 Total Protein 6.0 g/dL (6.5-8.0) L 02/01/23 12:10 Albumin 3.5 g/dL (3.5-5.0) 02/01/23 12:10 Lipase 14 U/L (8-78) 02/01/23 12:10 Urine Color Yellow 02/01/23 17:20 Urine Appearance Clear 02/01/23 17:20 Urine pH 5.5 (5.0-9.0) 02/01/23 17:20 Ur Specific [place] 1.020 (1.005-1.025) 02/01/23 17:20 Urine Protein 30 (1+) mg/dL (Neg-Trace) H 02/01/23 17:20 Urine Glucose (UA) 250 mg/dL (Negative) H 02/01/23 17:20 Urine Ketones Negative mg/dL (Negative) 02/01/23 17:20 Urine Blood Negative (Negative) 02/01/23 17:20 Urine Nitrite Negative (Negative) 02/01/23 17:20 Ur Leukocyte Esterase Negative (Negative) 02/01/23 17:20 Urine RBC 0-2 /HPF (0-2) 02/01/23 17:20 Urine WBC 0-5 /HPF (0-5) 02/01/23 17:20 Ur Squamous Epith Cells 0-2 /HPF (0-2) 02/01/23 17:20 Urine Bacteria None Seen (None Seen) 02/01/23 17:20 Hyaline Casts 0-2 /LPF (0-2) 02/01/23 17:20 COVID-19 (THANG) Negative (Negative) 02/01/23 12:10 COVID-19 Clin Com See Note 02/01/23 12:10 Impressions Chest X-Ray 02/01/23 12:43 IMPRESSION: Ectasia of the thoracic aorta possibly technical related to AP technique. Advise clinical correlation. Abdomen/Pelvis CT 02/01/23 17:11 IMPRESSION: A cause for the patient's abdominal pain and hypotension has not been found. Incidental note made of: 1. Enlarged liver with mildly nodular border. 2. Bilateral adrenal adenomas. 3. Marked thickening of the distal esophagus. Consider an esophagram on upper endoscopy for further evaluation. Appearances could be due to poor distention 4. Mild BPH. Fleischner guidelines were followed. Chest CTA 02/01/23 17:11 IMPRESSION: 1. No evidence of central or large segmental pulmonary emboli. 2. Tiny right pleural effusion with bibasilar atelectasis. 3. Marked thickening of the distal esophagus. Consider an esophagram or upper GI for further evaluation. VTE: Negative, but limited. Ankle X-Ray 02/01/23 19:33 IMPRESSION: 1. Status post ORIF lateral malleolus. 2. 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 3. Increasing ossification of the periarticular distal tibia and anterior talar neck. 4. No new bone destruction to suggest ongoing osteomyelitis. Ankle MRI 02/03/23 12:25 IMPRESSION: 1. Chronic posttraumatic deformity at the talocrural joint with marked articular surface remodeling, fragmentation, and marrow edema at the talar dome and tibial plafond as well as a small effusion and synovitis. Subarticular marrow changes at the tibial plafond and talar dome are favored to be reactive to the posttraumatic arthritis, though chronic superimposed septic arthritis is possible. There is persistent enhancement and edema signal along the screw tracks in the medial malleolus which may be due to granulation tissue status post hardware removal or superimposed infection. No separate sites of infection are suspected. No abscesses. 2. 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 3. 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 The peroneus brevis is ill-defined and likely chronically torn. TTE 02/02/23 - Normal left ventricular size and systolic function. There is ? mildly increased left ventricular wall thickness.? The visually? estimated ejection fraction is between 55-60%. ? - Normal right ventricular cavity size and systolic function.? ? - There is mild dilatation of the ascending aorta measuring 3.70 cm.? Discharge Plan Discharge Patient Disposition: Left Against Medical Advice Discharge Diagnosis: # esophageal thickening # atypical chest pain # L ankle swelling with hx MSSA hardware infection # TENA # LEFT AGAINST MEDICAL ADVICE Referrals: Jax Moe MD [Primary Care Provider] - 1 Week Discharge Medications: No Action atorvastatin 40 mg tablet 40 mg PO BEDTIME olanzapine 5 mg tablet 5 mg PO BEDTIME glipizide 5 mg tablet extended release 24hr 5 mg PO DAILY acetaminophen 500 mg tablet 1,000 mg PO Q8H PRN (Reason: pain) tamsulosin 0.4 mg capsule 0.4 mg PO BEDTIME trazodone 100 mg tablet 100 mg PO BEDTIME amlodipine 10 mg tablet 10 mg PO DAILY trazodone 150 mg tablet 300 mg PO BEDTIME metformin 1,000 mg tablet 1,000 mg PO BID oxybutynin chloride 5 mg tablet extended release 24hr 5 mg PO DAILY omeprazole 20 mg capsule,delayed release(DR/EC) 20 mg PO DAILY@0630 dorzolamide-timolol 22.3-6.8 mg/mL drops 1 drp ophthalmic-Left BID metoprolol succinate 25 mg tablet extended release 24 hr 25 mg PO DAILY lisinopril 40 mg tablet 40 mg PO BID doxycycline hyclate 100 mg tablet 100 mg PO BID loratadine 10 mg tablet 10 mg PO DAILY fluticasone propionate [Flovent HFA] 110 mcg/actuation HFA aerosol inhaler 1 puff INHALATION BID Certavite-Antioxidant 18-400 mg-mcg tablet 1 tab PO DAILY buprenorphine-naloxone 8-2 mg film 8 mg sublingual BID omega 7-glb-ece-fish oil 300 mg (120 mg- 180mg)-1,000 mg capsule,delayed release(DR/EC) 1 cap PO DAILY Discharge Orders: Discharge Order (Routine); Ordered 02/03/23 Ordered By: Monserrat Kay Diet: Advance to usual diet Care Plan Goals: To get the proper medical care indicated Health Concerns: # esophageal thickening # atypical chest pain # L ankle swelling with hx MSSA hardware infection # TENA # LEFT AGAINST MEDICAL ADVICE Plan of Treatment: Return to the hospital [facility] to resume workup and treatment of your medical problems Assessment: See Discharge Summary. Patient Instructions: Against Medical Advice (DC) Discharge Date/Time: 02/03/23 14:07
--- NOTE | 2023-02-03 14:50 | MHC.CM.PN ---
OBS 02/02/23 patient is discharged to home self care. Patient has arranged for transportation home.
== END 2023-02-03 14:07 | disposition left against medical advice (07) ==
LOC: HO.ED 18:02 → HO.EDOVER 20:07 → HO.S3 21:01
PROVIDERS: Nurse Practitioner Family; Admitting Provider Student in an Organized Health Care Education/Training Program; Emergency Provider Emergency Medicine; PCP Internal Medicine; Visit Provider Family Medicine
DX: R07.89 Other chest pain (principal); D72.829 Elevated white blood cell count, unspecified; K22.89 Other specified disease of esophagus; R60.0 Localized edema; N17.9 Acute kidney failure, unspecified; I95.9 Hypotension, unspecified; Z20.822 Contact with and (suspected) exposure to COVID-19; R06.02 Shortness of breath; R16.0 Hepatomegaly, not elsewhere classified; D35.02 Benign neoplasm of left adrenal gland; D35.01 Benign neoplasm of right adrenal gland; E11.9 Type 2 diabetes mellitus without complications; I10 Essential (primary) hypertension; E78.5 Hyperlipidemia, unspecified; M79.662 Pain in left lower leg; F11.20 Opioid dependence, uncomplicated; F17.210 Nicotine dependence, cigarettes, uncomplicated; Z79.899 Other long term (current) drug therapy; Z79.4 Long term (current) use of insulin
CPT/HCPCS: 36415; 71046; 71275; 73600; 73723; 74177; 80048; 80076; 81001; 82550; 82947; 83605; 83690; 83735; 83880; 84484; 85025; 85027; 85610; 85652; 86140; 87040; 87635; 93005; 93306; 94640; 96361; 96365; 96372; 96375; 99221; 99285; A9585; J0696; J1650; Q9957; Q9967

== ENCOUNTER → 2023-02-05 10:40 | Outpatient (BNVA) | payer OTHER, SELFPAY | PROVIDERS: PCP Internal Medicine; Visit Provider Urology | DX: N48.30 Priapism, unspecified (principal); R39.15 Urgency of urination; E11.9 Type 2 diabetes mellitus without complications; Z79.899 Other long term (current) drug therapy | CPT/HCPCS: 99212 ==

== ENCOUNTER 2023-02-09 16:43 | Emergency (ER) | payer OTHER, SELFPAY ==
--- NOTE | ~2023-02-09 | XR_ITS ---
EXAMINATION: XR CHEST CLINICAL INFORMATION: Chest pain. COMPARISON: Chest radiograph 02/01/2023. TECHNIQUE: Frontal view of the chest was obtained. FINDINGS: No focal airspace opacity, pleural effusion or pneumothorax. Stable appearance of the cardiomediastinal silhouette. Chronic bilateral rib deformities. No acute osseous abnormalities. XR/XR chest 1V IMPRESSION: No acute cardiopulmonary findings.
[2023-02-09 17:04] VITALS: BP 127/64; PULSE 70; RESP 18; TEMP 35.9; O2SAT 95; BMI 30.4
--- NOTE | 2023-02-09 17:04 | ED.CHESTPAIN ---
HPI - Chest Pain General Chief Complaint: Chest Pain Stated Complaint: CP Time Seen by Provider: 02/09/23 18:16 Source: patient Mode of arrival: ambulatory Limitations: no limitations History of Present Illness HPI narrative: 72-year-old male history of insulin-dependent diabetes, hypertension presented today for evaluation of 2 weeks of chest pain. Patient described it as intermittent pain to the left side of the chest, started 2 weeks ago, patient described it as it hurt when swallow cold water, no relieving factors, no fever, no chills, no shortness of breath, no recent travel, no lower extremity swelling or tenderness. Related Data Home Medications Medication Instructions Recorded Confirmed acetaminophen 500 mg tablet 1,000 mg PO Q8H PRN pain 02/01/23 02/05/23 amlodipine 10 mg tablet 10 mg PO DAILY 02/01/23 02/05/23 atorvastatin 40 mg tablet 40 mg PO BEDTIME 02/01/23 02/05/23 buprenorphine 8 mg-naloxone 2 mg 8 mg sublingual BID 02/01/23 02/05/23 sublingual film dorzolamide 22.3 mg-timolol 6.8 1 drp ophthalmic-Left BID 02/01/23 02/05/23 mg/mL eye drops doxycycline hyclate 100 mg tablet 100 mg PO BID 02/01/23 02/05/23 fluticasone propionate 110 1 puff inhalation BID 02/01/23 02/05/23 mcg/actuation HFA aerosol inhaler (Flovent HFA) glipizide 5 mg tablet, extended 5 mg PO DAILY 02/01/23 02/05/23 release 24 hr lisinopril 40 mg tablet 40 mg PO BID 02/01/23 02/05/23 loratadine 10 mg tablet 10 mg PO DAILY 02/01/23 02/05/23 metformin 1,000 mg tablet 1,000 mg PO BID 02/01/23 02/05/23 metoprolol succinate 25 mg 25 mg PO DAILY 02/01/23 02/05/23 tablet,extended release 24 hr multivitamin-ferrous 1 tab PO DAILY 02/01/23 02/05/23 fumarate-folic acid 18 mg-400 mcg tablet (Certavite-Antioxidant) olanzapine 5 mg tablet 5 mg PO BEDTIME 02/01/23 02/05/23 omega-3 300 mg-dha 120 mg-epa 180 1 cap PO DAILY 02/01/23 02/05/23 mg-fish oil 1,000 mg capsule,del rel omeprazole 20 mg capsule,delayed 20 mg PO DAILY@0630 02/01/23 02/05/23 release oxybutynin chloride 5 mg 5 mg PO DAILY 02/01/23 02/05/23 tablet,extended release 24 hr trazodone 100 mg tablet 100 mg PO BEDTIME 02/01/23 02/05/23 trazodone 150 mg tablet 300 mg PO BEDTIME 02/01/23 02/05/23 Previous Rx's Medication Instructions Recorded tamsulosin 0.4 mg capsule 0.4 mg PO BEDTIME BPH 90 days #90 02/05/23 caps Allergies Allergy/AdvReac Type Severity Reaction Status Date / Time No Known Allergies Allergy Verified 02/09/23 17:07 Review of Systems Review of Systems: All other systems are reviewed and are negative Constitutional: Reports as per HPI and Reports no additional constitutional complaints Eyes: Reports as per HPI and Reports no additional eye complaints Reports system reviewed and no additional complaints, except as documented Cardiovascular: Reports as per HPI and Reports no additional cardiovascular complaints Respiratory: Reports as per HPI and Reports no additional respiratory complaints Gastrointestinal: Reports as per HPI and Reports no additional gastrointestinal complaints Genitourinary: Reports no additional female genitourinary complaints Musculoskeletal: Reports no additional musculoskeletal complaints Skin/Breast: Reports system reviewed and no additional complaints, except as docu Psychiatric: Reports no additional psychiatric complaints Endocrine: Reports no additional endocrine complaints Hematologic/Lymphatic: Reports no additional hematologic/lymphatic complaints Allergic/Immunologic: Reports no additional allergic/immunologic complaints Reports system reviewed and no additional complaints, except as documented and Reports Abnormal speech present [facility] Past Medical History Medical History Anxiety CAD (coronary artery disease) Chronic constipation COPD (chronic obstructive pulmonary disease) COPD (chronic obstructive pulmonary disease) Diabetes mellitus Genital herpes GERD (gastroesophageal reflux disease) History of adenomatous polyp of colon History of fracture of left ankle Hypertension Hypertension Left against medical advice Opioid dependence Opioid dependence on agonist therapy JAUN (obstructive sleep apnea) Pancreatic abnormality Post-traumatic arthritis of left ankle Prepatellar bursitis, left knee Surgical History History of ankle surgery S/P hardware removal Family History Family History Mother No problems noted. Father Liver cancer Social History Social History Household Members: Spouse Housing: Apartment Do you presently have visiting nurse or other home services: Yes Alcohol intake: never Patient Tobacco Use Status: Former Tobacco user Tobacco use type: Cigarette Cigarettes Per Day: 4 e-Cigarette/Vaping Use: Currently Using Second Hand Smoke Exposure: No Substance Use Type: Heroin Advance Directives: Yes Advance Directives on File: Yes Advance Directives Date on File: 01/28/22 service: No Current occupational status: retired and disabled Current occupation: right handed Physical Exam Vital Signs: Vital Signs: Last Vital Signs Temp 98.7 F 02/09/23 18:00 Pulse 81 02/09/23 18:00 Resp 18 02/09/23 18:00 BP 147/75 H 02/09/23 18:00 Pulse Ox 97 02/09/23 18:00 O2 Del Method Room Air 02/09/23 18:00 BMI result Body Mass Index 30.4 Vital signs have been reviewed as appeared to be correct. Blood pressure normal. Heart rate normal. Respiration rate normal. Temperature normal. Oxygen saturation normal. Appearance: Alert. Oriented X3. No acute distress. Head: Normal external exam. Normocephalic. Atraumatic. No [place] signs noted. No raccoon eyes noted Eyes: PERRLA. EOMI. Conjunctiva and sclera normal. Eyelids normal. ENT: TM's Normal. Pharynx normal. Uvula midline. Moist mucous membranes. No trismus noted. No drooling noted. No muffled voice noted. Neck: Normal inspection. Neck supple. FROM. No adenopathy. Thyroid Normal. No meningeal signs. No neck mass noted. CVS: Normal heart rate and rhythm. Heart sound normal. No murmurs noted. Pulses normal throughout. Respiratory: No respiratory distress. Painless inspiration. Breath sounds normal. No wheezes/rales/rhonchi noted. Chest nontender. No accessory muscle usage noted or decreased air movement noted. Abdomen: Soft and nontender. Bowel sounds normal in all 4 quadrants. No distention noted. No organomegaly noted. No visible injury noted. Back: No CVA tenderness. Full range of motion noted. Skin: Skin warm and dry. Normal skin color. Normal skin turgor. No rashes/lesions/lacerations noted. Extremities: No lower extremity edema. Extremities exhibit normal range of motion. Extremities nontender. Neuro: Oriented X 3. Cranial nerve exam: II-XII are grossly intact No motor deficit. No sensory deficit. Reflexes normal. Course Course Course Narrative: RME: 72-year-old male with a pertinent history of insulin-dependent diabetes, essential hypertension, opioid use disorder, mixed hyperlipidemia, mood disorder, BPH, prior bimalleolar fracture, recently discharged from our facility for TENA/chest pain on 02/03/23 presenting to the ED c/o intermittent CP x 2 weeks EKG, labs, VIEIRA, CXR ordered Full HPI, ROS and PE to be performed by primary ED provider. Reevaluation(s) Reevaluation #1: 72-year-old male who eloped before full examination and evaluation. Time: 19:30 Medical Decision Making Differential Diagnosis Differential Diagnoses: The differential diagnosis associated with the presentation includes (Electrolyte abnormalities, severe anemia, dehydration, ACS, pneumothorax.) Admission/Observation Consideration of admission/observation: Escalation of care including admission/observation considered Lab Data MDM Lab Attestation statement: I reviewed the patient's lab results. 02/09/23 17:20 02/09/23 17:20 Labs: Lab Results 02/09/23 02/09/23 02/09/23 Range/Units 17:20 17:20 17:20 WBC 13.1 H (4.8-10.8) X10*3/uL RBC 3.57 L (4.60-5.80) X10*6/uL Hgb 10.3 L (14.0-18.0) g/dl Hct 32.4 L (42.0-52.0) % MCV 90.8 D (80.0-98.0) fL MCH 28.9 (27.0-33.0) pg MCHC 31.8 (31.0-36.0) g/dl RDW 13.0 (11.0-16.0) % Plt Count 346 (160-400) X10*3/uL MPV 8.9 L (9.4-12.4) fL Immature Gran % (Auto) 1.2 H (0.0-0.4) % Neut % (Auto) 76.8 H (45-73) % Lymph % (Auto) 15.1 L (20-40) % [place] % (Auto) 6.1 (2-11) % Eos % (Auto) 0.5 (0-4) % Baso % (Auto) 0.3 (0-2) % Lymph # (Auto) 2.0 (1.2-4.9) X10*3/uL [place] # (Auto) 0.8 (0.1-1.2) X10*3/uL Eos # (Auto) 0.1 (0.0-0.4) X10*3/uL Baso # (Auto) 0.0 (0.0-0.2) X10*3/uL Abs Immat Gran (auto) 0.16 H (0.00-0.03) X10*3/uL Absolute Neuts (auto) 10.1 H (2.0-8.3) x10*3/uL Absolute Nucleated RBC 0.000 (0.0-0.012) X10*3/uL Nucleated RBC % (auto) 0.0 (0.0-0.2) /100WBC PT 13.1 (10.0-13.1) SEC INR 1.1 (0.9-1.1) Sodium 140 (135-145) mmol/L Potassium 5.4 H D (3.3-5.1) mmol/L Chloride 102 (96-108) mmol/L Carbon Dioxide 30 H (22-29) mmol/L Anion Gap 13 (12-20) BUN 17 H (9-16) mg/dL Creatinine 0.73 (0.5-1.4) mg/dL Estim Creat Clear Calc 97.1 Estimated GFR > 60 Random Glucose 133 H (60-115) mg/dL Calcium 9.3 D (8.4-10.2) mg/dL Magnesium 1.1 L* (1.6-2.6) mg/dL Total Bilirubin 0.2 (0.0-1.0) mg/dL Direct Bilirubin < 0.2 (0.0-0.5) mg/dL AST 19 (5-37) U/L ALT 17 (0-40) U/L Alkaline Phosphatase 69 (39-117) U/L Troponin I High Sens (<3.5-35.0) ng/L B-Natriuretic Peptide (<100) pg/mL Total Protein 6.1 L (6.5-8.0) g/dL Albumin 3.3 L (3.5-5.0) g/dL 02/09/23 02/09/23 Range/Units 17:20 17:20 WBC (4.8-10.8) X10*3/uL RBC (4.60-5.80) X10*6/uL Hgb (14.0-18.0) g/dl Hct (42.0-52.0) % MCV (80.0-98.0) fL MCH (27.0-33.0) pg MCHC (31.0-36.0) g/dl RDW (11.0-16.0) % Plt Count (160-400) X10*3/uL MPV (9.4-12.4) fL Immature Gran % (Auto) (0.0-0.4) % Neut % (Auto) (45-73) % Lymph % (Auto) (20-40) % [place] % (Auto) (2-11) % Eos % (Auto) (0-4) % Baso % (Auto) (0-2) % Lymph # (Auto) (1.2-4.9) X10*3/uL [place] # (Auto) (0.1-1.2) X10*3/uL Eos # (Auto) (0.0-0.4) X10*3/uL Baso # (Auto) (0.0-0.2) X10*3/uL Abs Immat Gran (auto) (0.00-0.03) X10*3/uL Absolute Neuts (auto) (2.0-8.3) x10*3/uL Absolute Nucleated RBC (0.0-0.012) X10*3/uL Nucleated RBC % (auto) (0.0-0.2) /100WBC PT (10.0-13.1) SEC INR (0.9-1.1) Sodium (135-145) mmol/L Potassium (3.3-5.1) mmol/L Chloride (96-108) mmol/L Carbon Dioxide (22-29) mmol/L Anion Gap (12-20) BUN (9-16) mg/dL Creatinine (0.5-1.4) mg/dL Estim Creat Clear Calc Estimated GFR Random Glucose (60-115) mg/dL Calcium (8.4-10.2) mg/dL Magnesium (1.6-2.6) mg/dL Total Bilirubin (0.0-1.0) mg/dL Direct Bilirubin (0.0-0.5) mg/dL AST (5-37) U/L ALT (0-40) U/L Alkaline Phosphatase (39-117) U/L Troponin I High Sens < 2.7 D (<3.5-35.0) ng/L B-Natriuretic Peptide 115 H (<100) pg/mL Total Protein (6.5-8.0) g/dL Albumin (3.5-5.0) g/dL Independent Interpretation I performed an independent interpretation of an: EKG (Normal sinus rhythm at 74 beats per minutes, premature atrial complexes, no ST-T changes.) and Plain X-Ray (Chest: No acute intrathoracic pathology.) Radiology Impression Discussion of test interpretation with radiology: I have reviewed the radiologist's reading. Discharge Plan Discharge Clinical Impression: Hypomagnesemia, Hyperkalemia, Chest pain Patient Disposition: Elopement Prescriptions: No Action atorvastatin 40 mg tablet 40 mg PO BEDTIME olanzapine 5 mg tablet 5 mg PO BEDTIME glipizide 5 mg tablet extended release 24hr 5 mg PO DAILY acetaminophen 500 mg tablet 1,000 mg PO Q8H PRN (Reason: pain) trazodone 100 mg tablet 100 mg PO BEDTIME amlodipine 10 mg tablet 10 mg PO DAILY trazodone 150 mg tablet 300 mg PO BEDTIME metformin 1,000 mg tablet 1,000 mg PO BID oxybutynin chloride 5 mg tablet extended release 24hr 5 mg PO DAILY omeprazole 20 mg capsule,delayed release(DR/EC) 20 mg PO DAILY@0630 dorzolamide-timolol 22.3-6.8 mg/mL drops 1 drp ophthalmic-Left BID metoprolol succinate 25 mg tablet extended release 24 hr 25 mg PO DAILY lisinopril 40 mg tablet 40 mg PO BID doxycycline hyclate 100 mg tablet 100 mg PO BID loratadine 10 mg tablet 10 mg PO DAILY fluticasone propionate [Flovent HFA] 110 mcg/actuation HFA aerosol inhaler 1 puff INHALATION BID Certavite-Antioxidant 18-400 mg-mcg tablet 1 tab PO DAILY buprenorphine-naloxone 8-2 mg film 8 mg sublingual BID omega 7-qvl-dng-fish oil 300 mg (120 mg- 180mg)-1,000 mg capsule,delayed release(DR/EC) 1 cap PO DAILY tamsulosin 0.4 mg capsule 0.4 mg PO BEDTIME 90 Days Qty: 90 1RF Discharge Date/Time: 02/09/23 18:57
--- NOTE | 2023-02-09 17:05 | ECG_ITS ---
Test Reason : cp Blood Pressure : / mmHG Vent. Rate : 073 BPM Atrial Rate : 073 BPM P-R Int : 180 ms QRS Dur : 112 ms QT Int : 384 ms P-R-T Axes : 052 -63 043 degrees QTc Int : 423 ms Sinus rhythm with Premature atrial complexes Left anterior fascicular block Abnormal ECG When compared with ECG of 01-FEB-2023 11:22, Premature atrial complexes are now Present QRS duration has decreased Referred By: Ivette Ibanez Electronically Signed By:ROSELYN MOYER MD
[2023-02-09 17:35] LABS: MANUAL DIFF FLAG NO
[2023-02-09 17:41] LABS: INTERNATIONAL NORM RATIO 1.1 (0.9-1.1); Prothrombin Time 13.1 SEC (10.0-13.1)
[2023-02-09 17:56] LABS: Alanine Aminotransferase 17 U/L (0-40); Albumin Level 3.3 g/dL (3.5-5.0); Alkaline Phosphatase 69 U/L (39-117); Anion Gap 13 (12-20); Aspartate Amino Transferase 19 U/L (5-37); B Type Natriuretic Peptide 115 pg/mL (<100); Bilirubin Direct < 0.2 mg/dL (0.0-0.5); Bilirubin Total 0.2 mg/dL (0.0-1.0); Blood Urea Nitrogen 17 mg/dL (9-16); Calcium 9.3 mg/dL (8.4-10.2); Carbon Dioxide 30 mmol/L (22-29); Chloride 102 mmol/L (96-108); Creatinine Clr Calc Pharmacy 97.1; Estimated Glomerular Filt Rate > 60; Glucose Random 133 mg/dL (60-115); Magnesium 1.1 mg/dL (1.6-2.6); Potassium 5.4 mmol/L (3.3-5.1); Sodium 140 mmol/L (135-145); Total Protein 6.1 g/dL (6.5-8.0)
[2023-02-09 18:00] VITALS: BP 147/75; PULSE 81; RESP 18; TEMP 37.1; O2SAT 97
[2023-02-09 18:00] LABS: Basophils Percent Auto 0.3 % (0-2); Eosinophils Absolute Auto 0.1 X10*3/uL (0.0-0.4); Eosinophils Percent Auto 0.5 % (0-4); Hematocrit 32.4 % (42.0-52.0); Hemoglobin 10.3 g/dl (14.0-18.0); Imm Gran Abs Auto 0.16 X10*3/uL (0.00-0.03); Imm Gran Pct Auto 1.2 % (0.0-0.4); Lymphocytes Percent Auto 15.1 % (20-40); Mean Corpuscular HGB Conc 31.8 g/dl (31.0-36.0); Mean Corpuscular Hemoglobin 28.9 pg (27.0-33.0); Mean Corpuscular Volume 90.8 fL (80.0-98.0); Mean Platelet Volume 8.9 fL (9.4-12.4); Monocytes Absolute Auto 0.8 X10*3/uL (0.1-1.2); Monocytes Percent Auto 6.1 % (2-11); Neutrophils Absolute Auto 10.1 x10*3/uL (2.0-8.3); Neutrophils Percent Auto 76.8 % (45-73); Platelet Count 346 X10*3/uL (160-400); Red Blood Count 3.57 X10*6/uL (4.60-5.80); White Blood Count 13.1 X10*3/uL (4.8-10.8)
[2023-02-09 18:05] LABS: Troponin-I High Sensitivity < 2.7 ng/L (<3.5-35.0)
--- NOTE | 2023-02-09 18:05 | PC.NURSE ---
Alert and oriented but appears to be confused at times. has been sitting in the waiting room for 2 days. Reports chest pain 8/10 for two weeks that comes and goes. Walking avendano to left foot that patient refused to have removed to check skin integrity. 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 NSR on monitor. VSS. Eating a sandwhich and resting comfortably in bed at this time.
--- NOTE | 2023-02-09 18:22 | PC.NURSE ---
Provider into assess pt, plan is to order more labs, medicate per Mar. Will continue to monitor.
--- NOTE | 2023-02-09 18:51 | PC.NURSE ---
pt a&o, no denies any sob or chest pain, pt refusing to labs and medication, provider aware, elope
== END 2023-02-09 18:57 | disposition left against medical advice (07) ==
PROVIDERS: Physician Assistant; Emergency Provider Emergency Medicine; PCP Internal Medicine
DX: R07.89 Other chest pain (principal); E23.2 Diabetes insipidus; E83.42 Hypomagnesemia; I25.10 Atherosclerotic heart disease of native coronary artery without angina pectoris; R06.02 Shortness of breath; Z79.4 Long term (current) use of insulin; Z79.899 Other long term (current) drug therapy; Z87.891 Personal history of nicotine dependence
CPT/HCPCS: 36415; 71045; 80048; 80076; 83735; 83880; 84484; 85025; 85610; 93005; 99283; 99284

== ENCOUNTER → 2023-02-12 10:57 | Outpatient (BNVA) | payer OTHER, SELFPAY | PROVIDERS: PCP Internal Medicine; Visit Provider Internal Medicine | DX: Z47.2 Encounter for removal of internal fixation device (principal); R78.81 Bacteremia; B95.61 Methicillin susceptible Staphylococcus aureus infection as the cause of diseases classified elsewhere; U07.0 Vaping-related disorder; Z87.891 Personal history of nicotine dependence | CPT/HCPCS: 99212 ==

== ENCOUNTER 2023-02-12 14:02 | Emergency (ER) | payer OTHER, SELFPAY ==
--- NOTE | ~2023-02-12 | XR_ITS ---
EXAMINATION: XR CHEST CLINICAL INFORMATION: Chest pain COMPARISON: 02/09/2023 TECHNIQUE: 2 views of the chest were obtained. FINDINGS: Lungs are hyperinflated with flattening of the diaphragm. Lungs are clear. Cardiomediastinal silhouette is unremarkable. XR/XR chest 2V IMPRESSION: Emphysematous changes
--- NOTE | 2023-02-12 14:08 | ECG_ITS ---
Test Reason : CHEST PAIN Blood Pressure : / mmHG Vent. Rate : 081 BPM Atrial Rate : 081 BPM P-R Int : 162 ms QRS Dur : 112 ms QT Int : 382 ms P-R-T Axes : 048 -69 033 degrees QTc Int : 443 ms Sinus rhythm with occasional Premature ventricular complexes Left anterior fascicular block Abnormal ECG When compared with ECG of 09-FEB-2023 17:20, Premature ventricular complexes are now Present Premature atrial complexes are no longer Present Referred By: Yolie Roy Electronically Signed By:ROSELYN MOYER MD
--- NOTE | 2023-02-12 14:24 | ED_ITS ---
HPI - Chest Pain General Chief Complaint: Chest Pain Stated Complaint: chest pain Time Seen by Provider: 02/12/23 16:07 Source: patient Mode of arrival: ambulatory History of Present Illness HPI narrative: This is a 72-year-old male who arrives with complaints of 3-4 weeks chest pain that is along the diaphragmatic distribution in in the triage note states that this is been associated with shortness of breath but he denies any dizziness, headache, nausea or radiation of the chest pain other than described above. In addition, patient endorses that he uses cocaine and heroin and is currently on Suboxone. He states that he last used heroin 3-4 days ago and took his prescribe Suboxone this morning. Related Data Home Medications Medication Instructions Recorded Confirmed acetaminophen 500 mg tablet 1,000 mg PO Q8H PRN pain 02/01/23 02/05/23 amlodipine 10 mg tablet 10 mg PO DAILY 02/01/23 02/05/23 atorvastatin 40 mg tablet 40 mg PO BEDTIME 02/01/23 02/05/23 buprenorphine 8 mg-naloxone 2 mg 8 mg sublingual BID 02/01/23 02/05/23 sublingual film dorzolamide 22.3 mg-timolol 6.8 1 drp ophthalmic-Left BID 02/01/23 02/05/23 mg/mL eye drops doxycycline hyclate 100 mg tablet 100 mg PO BID 02/01/23 02/05/23 fluticasone propionate 110 1 puff inhalation BID 02/01/23 02/05/23 mcg/actuation HFA aerosol inhaler (Flovent HFA) glipizide 5 mg tablet, extended 5 mg PO DAILY 02/01/23 02/05/23 release 24 hr lisinopril 40 mg tablet 40 mg PO BID 02/01/23 02/05/23 loratadine 10 mg tablet 10 mg PO DAILY 02/01/23 02/05/23 metformin 1,000 mg tablet 1,000 mg PO BID 02/01/23 02/05/23 metoprolol succinate 25 mg 25 mg PO DAILY 02/01/23 02/05/23 tablet,extended release 24 hr multivitamin-ferrous 1 tab PO DAILY 02/01/23 02/05/23 fumarate-folic acid 18 mg-400 mcg tablet (Certavite-Antioxidant) olanzapine 5 mg tablet 5 mg PO BEDTIME 02/01/23 02/05/23 omega-3 300 mg-dha 120 mg-epa 180 1 cap PO DAILY 02/01/23 02/05/23 mg-fish oil 1,000 mg capsule,del rel omeprazole 20 mg capsule,delayed 20 mg PO DAILY@0630 02/01/23 02/05/23 release oxybutynin chloride 5 mg 5 mg PO DAILY 02/01/23 02/05/23 tablet,extended release 24 hr trazodone 100 mg tablet 100 mg PO BEDTIME 02/01/23 02/05/23 trazodone 150 mg tablet 300 mg PO BEDTIME 02/01/23 02/05/23 Previous Rx's Medication Instructions Recorded tamsulosin 0.4 mg capsule 0.4 mg PO BEDTIME BPH 90 days #90 02/05/23 caps Allergies Allergy/AdvReac Type Severity Reaction Status Date / Time No Known Allergies Allergy Verified 02/12/23 11:09 Review of Systems Review of Systems: Pertinent positives and negatives as stated in HPI [facility] Past Medical History Source: nursing notes reviewed Medical History Anxiety CAD (coronary artery disease) Chronic constipation COPD (chronic obstructive pulmonary disease) COPD (chronic obstructive pulmonary disease) Diabetes mellitus Genital herpes GERD (gastroesophageal reflux disease) History of adenomatous polyp of colon History of fracture of left ankle Hypertension Hypertension Left against medical advice Opioid dependence Opioid dependence on agonist therapy JAUN (obstructive sleep apnea) Pancreatic abnormality Post-traumatic arthritis of left ankle Prepatellar bursitis, left knee Surgical History History of ankle surgery S/P hardware removal Family History Family History Mother No problems noted. Father Liver cancer Social History Social History Household Members: Spouse Housing: Apartment Do you presently have visiting nurse or other home services: Yes Alcohol intake: never Patient Tobacco Use Status: Former Tobacco user Tobacco use type: Cigarette Cigarettes Per Day: 4 e-Cigarette/Vaping Use: Currently Using Second Hand Smoke Exposure: No Substance Use Type: Heroin Advance Directives: Yes Advance Directives on File: Yes Advance Directives Date on File: 01/28/22 service: No Current occupational status: retired and disabled Current occupation: right handed Physical Exam Vital Signs: Vital Signs: Last Vital Signs Temp 98 F 02/12/23 16:08 Pulse 75 02/12/23 16:08 Resp 15 02/12/23 16:08 BP 135/71 02/12/23 16:08 Pulse Ox 95 02/12/23 16:08 O2 Del Method Room Air 02/12/23 16:08 BMI result Body Mass Index 32.4 VITAL SIGNS: Reviewed. GENERAL: Well developed, well nourished, in no acute distress. HEAD: Normocephalic/atraumatic EYES: PERRLA, EOMI EARS: Ext canals without abnormality NOSE: Nares patent bilateral OROPHARYNX: no oral lesions noted, posterior pharynx clear, dry mucosa NECK: Supple, no adenopathy LUNGS: Normal breath sounds. No adventitious sounds or accessory muscle use. SpO2<95> CARDIOVASCULAR: Regular rate and rhythm without noted murmurs, no JVD or lower extremity edema. ABDOMEN: Soft, non-tender, non-distended with bowel sounds. MUSCULOSKELETAL: No tenderness, deformities, or effusions noted on gross inspection. EXTREMITIES: No cyanosis, clubbing or edema. SKIN: Inspection of the skin reveals no rashes NEUROLOGIC: Alert and oriented x 4. Strength and sensation to light touch were grossly intact x 4. Course Course Course Narrative: This is a rapid medical exam. Deferred additional HPI, ROS, PE to primary provider. 72-year-old male history of COPD, PTSD, HTN, MSSA bacteremia, opiate use disorder on suboxone, DM, TENA, prior bimalleolar fracture, GERD, chronic constipation?here with complaints of chest pain, shortness of breath x 1-2 weeks. WIll obtain labs, EKG, CXR VSS Medical Decision Making Medical Decision Making MDM Narrative: 72-year-old male who appears clinically dry and on review of all investigations has chronically stable lab work other than a low magnesium which again there is some chronicity to and will be repleted with 2 g of magnesium sulfate. Chest x- ray and EKG are absent acute findings troponin is negative. Suspect a component gastritis/acid reflux. Informed by nursing staff the patient eloped Differential Diagnosis Please see the discussion above Lab Data Please see the discussion above 02/12/23 14:38 02/12/23 14:38 Labs: Lab Results 02/12/23 02/12/23 02/12/23 Range/Units 14:38 14:38 14:38 WBC 10.8 (4.8-10.8) X10*3/uL RBC 3.67 L (4.60-5.80) X10*6/uL Hgb 10.8 L (14.0-18.0) g/dl Hct 33.4 L (42.0-52.0) % MCV 91.0 (80.0-98.0) fL MCH 29.4 (27.0-33.0) pg MCHC 32.3 (31.0-36.0) g/dl RDW 13.2 (11.0-16.0) % Plt Count 347 (160-400) X10*3/uL MPV 8.9 L (9.4-12.4) fL Immature Gran % (Auto) 0.5 H (0.0-0.4) % Neut % (Auto) 81.2 H (45-73) % Lymph % (Auto) 13.2 L (20-40) % Hettinger % (Auto) 4.2 (2-11) % Eos % (Auto) 0.6 (0-4) % Baso % (Auto) 0.3 (0-2) % Lymph # (Auto) 1.4 (1.2-4.9) X10*3/uL Hettinger # (Auto) 0.5 (0.1-1.2) X10*3/uL Eos # (Auto) 0.1 (0.0-0.4) X10*3/uL Baso # (Auto) 0.0 (0.0-0.2) X10*3/uL Abs Immat Gran (auto) 0.05 H (0.00-0.03) X10*3/uL Absolute Neuts (auto) 8.8 H (2.0-8.3) x10*3/uL Absolute Nucleated RBC 0.000 (0.0-0.012) X10*3/uL Nucleated RBC % (auto) 0.0 (0.0-0.2) /100WBC PT 12.5 (10.0-13.1) SEC INR 1.1 (0.9-1.1) Sodium 140 (135-145) mmol/L Potassium 4.4 (3.3-5.1) mmol/L Chloride 100 (96-108) mmol/L Carbon Dioxide 31 H (22-29) mmol/L Anion Gap 13 (12-20) BUN 13 (9-16) mg/dL Creatinine 0.72 (0.5-1.4) mg/dL Estim Creat Clear Calc 98.3 Estimated GFR > 60 Random Glucose 134 H (60-115) mg/dL Calcium 9.8 (8.4-10.2) mg/dL Magnesium 1.3 L* (1.6-2.6) mg/dL Total Bilirubin 0.3 (0.0-1.0) mg/dL Direct Bilirubin 0.1 (0.0-0.5) mg/dL AST 22 (5-37) U/L ALT 15 (0-40) U/L Alkaline Phosphatase 87 (39-117) U/L Troponin I High Sens (<3.5-35.0) ng/L Total Protein 6.5 (6.5-8.0) g/dL Albumin 3.5 (3.5-5.0) g/dL Lipase 22 (8-78) U/L /16/23 Range/Units 14:38 WBC (4.8-10.8) X10*3/uL RBC (4.60-5.80) X10*6/uL Hgb (14.0-18.0) g/dl Hct (42.0-52.0) % MCV (80.0-98.0) fL MCH (27.0-33.0) pg MCHC (31.0-36.0) g/dl RDW (11.0-16.0) % Plt Count (160-400) X10*3/uL MPV (9.4-12.4) fL Immature Gran % (Auto) (0.0-0.4) % Neut % (Auto) (45-73) % Lymph % (Auto) (20-40) % Hettinger % (Auto) (2-11) % Eos % (Auto) (0-4) % Baso % (Auto) (0-2) % Lymph # (Auto) (1.2-4.9) X10*3/uL Hettinger # (Auto) (0.1-1.2) X10*3/uL Eos # (Auto) (0.0-0.4) X10*3/uL Baso # (Auto) (0.0-0.2) X10*3/uL Abs Immat Gran (auto) (0.00-0.03) X10*3/uL Absolute Neuts (auto) (2.0-8.3) x10*3/uL Absolute Nucleated RBC (0.0-0.012) X10*3/uL Nucleated RBC % (auto) (0.0-0.2) /100WBC PT (10.0-13.1) SEC INR (0.9-1.1) Sodium (135-145) mmol/L Potassium (3.3-5.1) mmol/L Chloride (96-108) mmol/L Carbon Dioxide (22-29) mmol/L Anion Gap (12-20) BUN (9-16) mg/dL Creatinine (0.5-1.4) mg/dL Estim Creat Clear Calc Estimated GFR Random Glucose (60-115) mg/dL Calcium (8.4-10.2) mg/dL Magnesium (1.6-2.6) mg/dL Total Bilirubin (0.0-1.0) mg/dL Direct Bilirubin (0.0-0.5) mg/dL AST (5-37) U/L ALT (0-40) U/L Alkaline Phosphatase (39-117) U/L Troponin I High Sens < 2.7 (<3.5-35.0) ng/L Total Protein (6.5-8.0) g/dL Albumin (3.5-5.0) g/dL Lipase (8-78) U/L Independent Interpretation I performed an independent interpretation of an: EKG Interpretation: Sinus rhythm with occasional PVCs, HR-81, no STEMI, [place]/QTC are within normal limits. Radiology Impression Radiologist Impression: My interpretation is in agreement with radiology's impression External Record Review External record reviewed: Outpatient record and Prior outpatient labs Chronic Conditions Patient?s care impacted by: Hypertension Discharge Plan Discharge Clinical Impression: Atypical chest pain, Polysubstance use disorder Patient Disposition: Elopement Prescriptions: No Action atorvastatin 40 mg tablet 40 mg PO BEDTIME olanzapine 5 mg tablet 5 mg PO BEDTIME glipizide 5 mg tablet extended release 24hr 5 mg PO DAILY acetaminophen 500 mg tablet 1,000 mg PO Q8H PRN (Reason: pain) trazodone 100 mg tablet 100 mg PO BEDTIME amlodipine 10 mg tablet 10 mg PO DAILY trazodone 150 mg tablet 300 mg PO BEDTIME metformin 1,000 mg tablet 1,000 mg PO BID oxybutynin chloride 5 mg tablet extended release 24hr 5 mg PO DAILY omeprazole 20 mg capsule,delayed release(DR/EC) 20 mg PO DAILY@0630 dorzolamide-timolol 22.3-6.8 mg/mL drops 1 drp ophthalmic-Left BID metoprolol succinate 25 mg tablet extended release 24 hr 25 mg PO DAILY lisinopril 40 mg tablet 40 mg PO BID doxycycline hyclate 100 mg tablet 100 mg PO BID loratadine 10 mg tablet 10 mg PO DAILY fluticasone propionate [Flovent HFA] 110 mcg/actuation HFA aerosol inhaler 1 puff INHALATION BID Certavite-Antioxidant 18-400 mg-mcg tablet 1 tab PO DAILY buprenorphine-naloxone 8-2 mg film 8 mg sublingual BID omega 4-oek-bcf-fish oil 300 mg (120 mg- 180mg)-1,000 mg capsule,delayed release(DR/EC) 1 cap PO DAILY tamsulosin 0.4 mg capsule 0.4 mg PO BEDTIME 90 Days Qty: 90 1RF Interventions: ED Discharge Assessment Last Done: 02/12/23 17:11
[2023-02-12 14:25] VITALS: BP 125/62; PULSE 84; RESP 20; TEMP 36.6; O2SAT 96; BMI 32.4
[2023-02-12 14:46] LABS: MANUAL DIFF FLAG NO
[2023-02-12 14:55] LABS: Basophils Percent Auto 0.3 % (0-2); Eosinophils Absolute Auto 0.1 X10*3/uL (0.0-0.4); Eosinophils Percent Auto 0.6 % (0-4); Hematocrit 33.4 % (42.0-52.0); Hemoglobin 10.8 g/dl (14.0-18.0); Imm Gran Abs Auto 0.05 X10*3/uL (0.00-0.03); Imm Gran Pct Auto 0.5 % (0.0-0.4); Lymphocytes Absolute Auto 1.4 X10*3/uL (1.2-4.9); Lymphocytes Percent Auto 13.2 % (20-40); Mean Corpuscular HGB Conc 32.3 g/dl (31.0-36.0); Mean Corpuscular Hemoglobin 29.4 pg (27.0-33.0); Mean Platelet Volume 8.9 fL (9.4-12.4); Monocytes Absolute Auto 0.5 X10*3/uL (0.1-1.2); Monocytes Percent Auto 4.2 % (2-11); Neutrophils Absolute Auto 8.8 x10*3/uL (2.0-8.3); Neutrophils Percent Auto 81.2 % (45-73); Platelet Count 347 X10*3/uL (160-400); Red Blood Count 3.67 X10*6/uL (4.60-5.80); Red Cell Distribution Width 13.2 % (11.0-16.0); White Blood Count 10.8 X10*3/uL (4.8-10.8)
[2023-02-12 15:07] LABS: INTERNATIONAL NORM RATIO 1.1 (0.9-1.1); Prothrombin Time 12.5 SEC (10.0-13.1)
[2023-02-12 15:24] LABS: Troponin-I High Sensitivity < 2.7 ng/L (<3.5-35.0)
[2023-02-12 15:31] LABS: Alanine Aminotransferase 15 U/L (0-40); Albumin Level 3.5 g/dL (3.5-5.0); Alkaline Phosphatase 87 U/L (39-117); Anion Gap 13 (12-20); Aspartate Amino Transferase 22 U/L (5-37); Bilirubin Direct 0.1 mg/dL (0.0-0.5); Bilirubin Total 0.3 mg/dL (0.0-1.0); Blood Urea Nitrogen 13 mg/dL (9-16); Calcium 9.8 mg/dL (8.4-10.2); Carbon Dioxide 31 mmol/L (22-29); Chloride 100 mmol/L (96-108); Creatinine Clr Calc Pharmacy 98.3; Estimated Glomerular Filt Rate > 60; Glucose Random 134 mg/dL (60-115); Magnesium 1.3 mg/dL (1.6-2.6); Potassium 4.4 mmol/L (3.3-5.1); Sodium 140 mmol/L (135-145); Total Protein 6.5 g/dL (6.5-8.0)
[2023-02-12 16:08] VITALS: BP 135/71; PULSE 75; RESP 15; TEMP 36.6; O2SAT 95
--- NOTE | 2023-02-12 17:09 | PC.NURSE ---
Patient found to not be in room when this nurse went to medicate patient. According to registration patient got dressed and left facility.
[2023-02-12 17:21] LABS: Lipase 22 U/L (8-78)
== END 2023-02-12 17:11 | disposition left against medical advice (07) ==
PROVIDERS: Nurse Practitioner Family; Emergency Provider Student in an Organized Health Care Education/Training Program
DX: R07.89 Other chest pain (principal); I25.10 Atherosclerotic heart disease of native coronary artery without angina pectoris; F11.20 Opioid dependence, uncomplicated; I10 Essential (primary) hypertension; Z87.891 Personal history of nicotine dependence; Z79.899 Other long term (current) drug therapy
CPT/HCPCS: 36415; 71046; 80048; 80076; 83690; 83735; 84484; 85025; 85610; 93005; 99283

== ENCOUNTER 2023-02-25 19:20 | Emergency (ER) | payer OTHER, SELFPAY ==
--- NOTE | ~2023-02-25 | XR_ITS ---
EXAMINATION: XR CHEST CLINICAL INFORMATION: Chest pain and shortness of breath. COMPARISON: Prior chest radiographs, most recently 02/12/2023; CTA chest dated 02/01/2023. TECHNIQUE: PA view of the chest was obtained. FINDINGS: The heart size is at least top normal. No congestive heart failure is seen. There is no infiltrate, effusion or pneumothorax. Breast shadows project over the bases, similar to prior chest radiographs, including 06/05/2021. There is no acute osseous abnormality. XR/XR chest 1V IMPRESSION: No active cardiopulmonary disease. Breast shadows project over the bases, with underlying infiltrate considered unlikely. If of continued clinical concern, this could be further evaluated with a lateral projection.
--- NOTE | 2023-02-25 19:22 | ECG_ITS ---
Test Reason : CP Blood Pressure : / mmHG Vent. Rate : 071 BPM Atrial Rate : 071 BPM P-R Int : 172 ms QRS Dur : 118 ms QT Int : 420 ms P-R-T Axes : 054 -65 031 degrees QTc Int : 456 ms Normal sinus rhythm Left anterior fascicular block Septal infarct , age undetermined Abnormal ECG When compared with ECG of 12-FEB-2023 14:10, Premature ventricular complexes are no longer Present Septal infarct is now Present Referred By: Sonali Osuna Electronically Signed By:Franco Giordano
--- NOTE | 2023-02-25 19:23 | ED_ITS ---
HPI - General Adult General Chief complaint: Dyspnea Stated complaint: sob,chest pain,abd pain Time Seen by Provider: 02/25/23 20:50 Source: patient and family () Mode of arrival: ambulatory History of Present Illness HPI narrative: 72-year-old male who comes in with complaints of shortness of breath and chest pain that started approximately 3 days ago. He denies any fever, chills and states that he gave a urine sample at his doctor's office. Related Data Home Medications Medication Instructions Recorded Confirmed acetaminophen 500 mg tablet 1,000 mg PO Q8H PRN pain 02/01/23 02/05/23 amlodipine 10 mg tablet 10 mg PO DAILY 02/01/23 02/05/23 atorvastatin 40 mg tablet 40 mg PO BEDTIME 02/01/23 02/05/23 buprenorphine 8 mg-naloxone 2 mg 8 mg sublingual BID 02/01/23 02/05/23 sublingual film dorzolamide 22.3 mg-timolol 6.8 1 drp ophthalmic-Left BID 02/01/23 02/05/23 mg/mL eye drops doxycycline hyclate 100 mg tablet 100 mg PO BID 02/01/23 02/05/23 fluticasone propionate 110 1 puff inhalation BID 02/01/23 02/05/23 mcg/actuation HFA aerosol inhaler (Flovent HFA) glipizide 5 mg tablet, extended 5 mg PO DAILY 02/01/23 02/05/23 release 24 hr lisinopril 40 mg tablet 40 mg PO BID 02/01/23 02/05/23 loratadine 10 mg tablet 10 mg PO DAILY 02/01/23 02/05/23 metformin 1,000 mg tablet 1,000 mg PO BID 02/01/23 02/05/23 metoprolol succinate 25 mg 25 mg PO DAILY 02/01/23 02/05/23 tablet,extended release 24 hr multivitamin-ferrous 1 tab PO DAILY 02/01/23 02/05/23 fumarate-folic acid 18 mg-400 mcg tablet (Certavite-Antioxidant) olanzapine 5 mg tablet 5 mg PO BEDTIME 02/01/23 02/05/23 omega-3 300 mg-dha 120 mg-epa 180 1 cap PO DAILY 02/01/23 02/05/23 mg-fish oil 1,000 mg capsule,del rel omeprazole 20 mg capsule,delayed 20 mg PO DAILY@0630 02/01/23 02/05/23 release oxybutynin chloride 5 mg 5 mg PO DAILY 02/01/23 02/05/23 tablet,extended release 24 hr trazodone 100 mg tablet 100 mg PO BEDTIME 02/01/23 02/05/23 trazodone 150 mg tablet 300 mg PO BEDTIME 02/01/23 02/05/23 Previous Rx's Medication Instructions Recorded tamsulosin 0.4 mg capsule 0.4 mg PO BEDTIME BPH 90 days #90 02/05/23 caps Allergies Allergy/AdvReac Type Severity Reaction Status Date / Time No Known Allergies Allergy Verified 02/25/23 19:29 Review of Systems Review of Systems: Pertinent positives and negatives as stated in [facility] Past Medical History Source: nursing notes reviewed Medical History Anxiety CAD (coronary artery disease) Chronic constipation COPD (chronic obstructive pulmonary disease) COPD (chronic obstructive pulmonary disease) Diabetes mellitus Genital herpes GERD (gastroesophageal reflux disease) History of adenomatous polyp of colon History of fracture of left ankle Hypertension Hypertension Left against medical advice Opioid dependence Opioid dependence on agonist therapy JAUN (obstructive sleep apnea) Pancreatic abnormality Post-traumatic arthritis of left ankle Prepatellar bursitis, left knee Surgical History History of ankle surgery S/P hardware removal Family History Family History Mother No problems noted. Father Liver cancer Social History Social History Household Members: Spouse Housing: Apartment Do you presently have visiting nurse or other home services: Yes Alcohol intake: never Patient Tobacco Use Status: Former Tobacco user Tobacco use type: Cigarette Cigarettes Per Day: 4 Smoked in Last 30 Days: Yes e-Cigarette/Vaping Use: Currently Using Second Hand Smoke Exposure: No Use of substances other than those prescribed or required for medical reasons: No Substance Use Type: Heroin Advance Directives: Yes Advance Directives on File: Yes Advance Directives Date on File: 01/28/22 service: No Current occupational status: retired and disabled Current occupation: right handed Physical Exam ED Vital Signs: Vital Signs - 24 hr 02/25/23 19:25 02/25/23 20:53 02/25/23 21:35 Temperature 96.6 F L 98.7 F Pulse Rate 74 73 74 Respiratory Rate 16 14 18 Blood Pressure 122/66 115/67 135/75 Pulse Oximetry 98 95 99 Oxygen Delivery Method Room Air Room Air BMI result Body Mass Index 26.6 VITAL SIGNS: Reviewed. GENERAL: Well developed, well nourished, in no acute distress. HEAD: Normocephalic/atraumatic EYES: PERRLA, EOMI EARS: Ext canals without abnormality NOSE: Nares patent bilateral OROPHARYNX: no oral lesions noted, posterior pharynx clear NECK: Supple, no adenopathy LUNGS: Normal breath sounds. No adventitious sounds or accessory muscle use. SpO2<99> CARDIOVASCULAR: Regular rate and rhythm without noted murmurs ABDOMEN: Soft, non-tender, non-distended with bowel sounds. MUSCULOSKELETAL: No tenderness, deformities, or effusions noted on gross inspection. EXTREMITIES: No cyanosis, clubbing or edema. SKIN: Inspection of the skin reveals no rashes NEUROLOGIC: Alert and oriented x 4. Strength and sensation to light touch were grossly intact x 4. Course Course Course Narrative: This is an RME: Additional HPI, ROS, PE not included below will be deferred to primary provider. 72 year old male presents w/ substernal cp, pleuritic chest pain, shortness of breath and vague complaints of diffuse abd pain X few weeks. No nausea, vomiting, fevers, chills PE - difficulty catching breath Plan- labs, ua, viral test, trop, ekg, dimer Medical Decision Making Medical Decision Making MDM Narrative: 72-year-old male with history and clinical presentation with DDX: Pneumonia, ACS, acid reflux, drug use, PE. I reviewed all investigations and hematologic studies are chronically stable with noted chronic derangements slight elevation of leukocytes as well as platelets. Most notably, D-dimer, troponin and EKG are all without acute findings. Patient states he is feeling much better, he has declined to provide a urine sample. I have concerns that this gentleman may be using illicit substances and this may be the source his chest pain. I did review his prior records. He is otherwise discharged home in stable condition. Differential Diagnosis Please see the discussion above Lab Data Please see the discussion above 02/25/23 19:52 02/25/23 19:52 Labs: Lab Results 02/25/23 02/25/23 02/25/23 Range/Units 19:52 19:52 19:52 WBC 11.9 H (4.8-10.8) X10*3/uL RBC 3.85 L (4.60-5.80) X10*6/uL Hgb 11.1 L (14.0-18.0) g/dl Hct 34.0 L (42.0-52.0) % MCV 88.3 (80.0-98.0) fL MCH 28.8 (27.0-33.0) pg MCHC 32.6 (31.0-36.0) g/dl RDW 13.9 (11.0-16.0) % Plt Count 422 H (160-400) X10*3/uL MPV 8.9 L (9.4-12.4) fL Immature Gran % (Auto) 0.7 H (0.0-0.4) % Neut % (Auto) 66.1 (45-73) % Lymph % (Auto) 23.3 (20-40) % [place] % (Auto) 8.2 (2-11) % Eos % (Auto) 1.4 (0-4) % Baso % (Auto) 0.3 (0-2) % Lymph # (Auto) 2.8 (1.2-4.9) X10*3/uL [place] # (Auto) 1.0 (0.1-1.2) X10*3/uL Eos # (Auto) 0.2 (0.0-0.4) X10*3/uL Baso # (Auto) 0.0 (0.0-0.2) X10*3/uL Abs Immat Gran (auto) 0.08 H (0.00-0.03) X10*3/uL Absolute Neuts (auto) 7.9 (2.0-8.3) x10*3/uL Absolute Nucleated RBC 0.000 (0.0-0.012) X10*3/uL Nucleated RBC % (auto) 0.0 (0.0-0.2) /100WBC D-Dimer High Sensitivty < 150 NG/ML Sodium 138 (135-145) mmol/L Potassium 4.1 (3.3-5.1) mmol/L Chloride 102 (96-108) mmol/L Carbon Dioxide 26 (22-29) mmol/L Anion Gap 14 (12-20) BUN 21 H (9-16) mg/dL Creatinine 0.74 (0.5-1.4) mg/dL Estim Creat Clear Calc 81.8 Estimated GFR > 60 Random Glucose 184 H (60-115) mg/dL Calcium 9.8 (8.4-10.2) mg/dL Magnesium 1.7 (1.6-2.6) mg/dL Total Bilirubin 0.3 (0.0-1.0) mg/dL AST 21 (5-37) U/L ALT 25 (0-40) U/L Alkaline Phosphatase 94 (39-117) U/L Troponin I High Sens (<3.5-35.0) ng/L B-Natriuretic Peptide (<100) pg/mL Total Protein 6.7 (6.5-8.0) g/dL Albumin 3.9 (3.5-5.0) g/dL Lipase 18 (8-78) U/L COVID-19 ([facility]) (Negative) COVID-19 Clin Com 02/25/23 02/25/23 02/25/23 Range/Units 19:52 19:52 19:52 WBC (4.8-10.8) X10*3/uL RBC (4.60-5.80) X10*6/uL Hgb (14.0-18.0) g/dl Hct (42.0-52.0) % MCV (80.0-98.0) fL MCH (27.0-33.0) pg MCHC (31.0-36.0) g/dl RDW (11.0-16.0) % Plt Count (160-400) X10*3/uL MPV (9.4-12.4) fL Immature Gran % (Auto) (0.0-0.4) % Neut % (Auto) (45-73) % Lymph % (Auto) (20-40) % [place] % (Auto) (2-11) % Eos % (Auto) (0-4) % Baso % (Auto) (0-2) % Lymph # (Auto) (1.2-4.9) X10*3/uL [place] # (Auto) (0.1-1.2) X10*3/uL Eos # (Auto) (0.0-0.4) X10*3/uL Baso # (Auto) (0.0-0.2) X10*3/uL Abs Immat Gran (auto) (0.00-0.03) X10*3/uL Absolute Neuts (auto) (2.0-8.3) x10*3/uL Absolute Nucleated RBC (0.0-0.012) X10*3/uL Nucleated RBC % (auto) (0.0-0.2) /100WBC D-Dimer High Sensitivty NG/ML Sodium (135-145) mmol/L Potassium (3.3-5.1) mmol/L Chloride (96-108) mmol/L Carbon Dioxide (22-29) mmol/L Anion Gap (12-20) BUN (9-16) mg/dL Creatinine (0.5-1.4) mg/dL Estim Creat Clear Calc Estimated GFR Random Glucose (60-115) mg/dL Calcium (8.4-10.2) mg/dL Magnesium (1.6-2.6) mg/dL Total Bilirubin (0.0-1.0) mg/dL AST (5-37) U/L ALT (0-40) U/L Alkaline Phosphatase (39-117) U/L Troponin I High Sens < 2.7 (<3.5-35.0) ng/L B-Natriuretic Peptide 28 (<100) pg/mL Total Protein (6.5-8.0) g/dL Albumin (3.5-5.0) g/dL Lipase (8-78) U/L COVID-19 ([facility]) Negative (Negative) COVID-19 Clin Com See Note Independent Interpretation I performed an independent interpretation of an: EKG Interpretation: Normal sinus rhythm, HR-71, no STEMI, TX/QTC are within normal limits, no significant changes when compared to prior from 02/12/2023 Radiology Impression Radiologist Impression: There is no pneumonia otherwise my interpretation is in agreement with radiology's impression. External Record Review External record reviewed: Outpatient record and Prior outpatient labs Chronic Conditions Patient?s care impacted by: Diabetes Discharge Plan Discharge Clinical Impression: Atypical chest pain Patient Disposition: Home, Self-Care Instructions: Chest Pain (ED) Additional Instructions: 1. Resume all home medications as prescribed. 2. Recommend follow-up with your primary care provider next 1-2 days. Return to the ER for any worsening symptoms. Prescriptions: No Action atorvastatin 40 mg tablet 40 mg PO BEDTIME olanzapine 5 mg tablet 5 mg PO BEDTIME glipizide 5 mg tablet extended release 24hr 5 mg PO DAILY acetaminophen 500 mg tablet 1,000 mg PO Q8H PRN (Reason: pain) trazodone 100 mg tablet 100 mg PO BEDTIME amlodipine 10 mg tablet 10 mg PO DAILY trazodone 150 mg tablet 300 mg PO BEDTIME metformin 1,000 mg tablet 1,000 mg PO BID oxybutynin chloride 5 mg tablet extended release 24hr 5 mg PO DAILY omeprazole 20 mg capsule,delayed release(DR/EC) 20 mg PO DAILY@0630 dorzolamide-timolol 22.3-6.8 mg/mL drops 1 drp ophthalmic-Left BID metoprolol succinate 25 mg tablet extended release 24 hr 25 mg PO DAILY lisinopril 40 mg tablet 40 mg PO BID doxycycline hyclate 100 mg tablet 100 mg PO BID loratadine 10 mg tablet 10 mg PO DAILY fluticasone propionate [Flovent HFA] 110 mcg/actuation HFA aerosol inhaler 1 puff INHALATION BID Certavite-Antioxidant 18-400 mg-mcg tablet 1 tab PO DAILY buprenorphine-naloxone 8-2 mg film 8 mg sublingual BID omega 0-ncd-bwq-fish oil 300 mg (120 mg- 180mg)-1,000 mg capsule,delayed release(DR/EC) 1 cap PO DAILY tamsulosin 0.4 mg capsule 0.4 mg PO BEDTIME 90 Days Qty: 90 1RF Referrals: Jax Moe MD [Primary Care Provider] -
[2023-02-25 19:25] VITALS: BP 122/66; PULSE 74; RESP 16; TEMP 35.9; O2SAT 98; BMI 26.6
[2023-02-25 19:56] LABS: MANUAL DIFF FLAG NO
[2023-02-25 19:58] LABS: Basophils Percent Auto 0.3 % (0-2); Eosinophils Absolute Auto 0.2 X10*3/uL (0.0-0.4); Eosinophils Percent Auto 1.4 % (0-4); Hemoglobin 11.1 g/dl (14.0-18.0); Imm Gran Abs Auto 0.08 X10*3/uL (0.00-0.03); Imm Gran Pct Auto 0.7 % (0.0-0.4); Lymphocytes Absolute Auto 2.8 X10*3/uL (1.2-4.9); Lymphocytes Percent Auto 23.3 % (20-40); Mean Corpuscular HGB Conc 32.6 g/dl (31.0-36.0); Mean Corpuscular Hemoglobin 28.8 pg (27.0-33.0); Mean Corpuscular Volume 88.3 fL (80.0-98.0); Mean Platelet Volume 8.9 fL (9.4-12.4); Monocytes Percent Auto 8.2 % (2-11); Neutrophils Absolute Auto 7.9 x10*3/uL (2.0-8.3); Neutrophils Percent Auto 66.1 % (45-73); Platelet Count 422 X10*3/uL (160-400); Red Blood Count 3.85 X10*6/uL (4.60-5.80); Red Cell Distribution Width 13.9 % (11.0-16.0); White Blood Count 11.9 X10*3/uL (4.8-10.8)
[2023-02-25 20:12] LABS: Alanine Aminotransferase 25 U/L (0-40); Albumin Level 3.9 g/dL (3.5-5.0); Alkaline Phosphatase 94 U/L (39-117); Anion Gap 14 (12-20); Aspartate Amino Transferase 21 U/L (5-37); Bilirubin Total 0.3 mg/dL (0.0-1.0); Blood Urea Nitrogen 21 mg/dL (9-16); Calcium 9.8 mg/dL (8.4-10.2); Carbon Dioxide 26 mmol/L (22-29); Chloride 102 mmol/L (96-108); Creatinine Clr Calc Pharmacy 81.8; Estimated Glomerular Filt Rate > 60; Glucose Random 184 mg/dL (60-115); Lipase 18 U/L (8-78); Magnesium 1.7 mg/dL (1.6-2.6); Potassium 4.1 mmol/L (3.3-5.1); Sodium 138 mmol/L (135-145); Total Protein 6.7 g/dL (6.5-8.0)
[2023-02-25 20:14] LABS: D Dimer High Sensitivity < 150 NG/ML
[2023-02-25 20:17] LABS: COVID-19 Test Negative (Negative); IDNOW Serial# 08D9AD1C
[2023-02-25 20:19] LABS: B Type Natriuretic Peptide 28 pg/mL (<100)
[2023-02-25 20:27] LABS: Troponin-I High Sensitivity < 2.7 ng/L (<3.5-35.0)
[2023-02-25 20:53] VITALS: BP 115/67; PULSE 73; RESP 14; TEMP 37.1; O2SAT 95
--- NOTE | 2023-02-25 20:55 | PC.NURSE ---
Addendum entered by Yaquelin Mcgovern 02/25/23 21:01: Hypoactive bowel sounds x 4 quadrants. Pt eating snacks at bedside. Original Note: Pt A&O to self and year, reports feeling better, no pain, I want to go . States no CP at the moment, was all over chest x few days , SOB all the time and ABD pain x 1 week with N/V/D, reports having good appetite. Pt states he gave urine sample at clinic and is not going to provide one here. Lung sounds clear
--- NOTE | 2023-02-25 21:10 | PC.NURSE ---
pt states he has no urine to give will continue to monitor
[2023-02-25 21:35] VITALS: BP 135/75; PULSE 74; RESP 18; O2SAT 99
== END 2023-02-25 22:29 | disposition home or self-care (01) ==
PROVIDERS: Physician Assistant; Emergency Provider Student in an Organized Health Care Education/Training Program; PCP Internal Medicine
DX: R07.89 Other chest pain (principal); R06.02 Shortness of breath; R10.13 Epigastric pain; Z87.891 Personal history of nicotine dependence; Z79.899 Other long term (current) drug therapy
CPT/HCPCS: 71045; 80053; 83690; 83735; 83880; 84484; 85025; 85379; 87635; 93005; 99283; 99284

== ENCOUNTER 2023-03-05 11:08 | Emergency (ER) | payer OTHER, SELFPAY ==
[2023-03-05 11:18] VITALS: BP 144/74; PULSE 92; RESP 16; O2SAT 96; BMI 28.1
--- NOTE | 2023-03-05 11:23 | PC.NURSE ---
pt refusing care, stating he will walk out of here he does not wish to be here.
--- NOTE | 2023-03-05 11:49 | ED.GENADULT ---
HPI - General Adult General Chief complaint: General Medical Stated complaint: Red and swollen leg, slight confusion per EMS Time Seen by Provider: 03/05/23 11:26 History of Present Illness HPI narrative: Patient is a 72-year-old male with a history of diabetes. History of ankle fracture with hardware in the past. History of MSSA infection in the wound in the past. Patient been seen by orthopedics. Was on antibiotics previously. Left against medical advice in the past. Presented today with having pain to the ankle again. The pain is more chronic in nature it is over the left ankle patient is wearing a walking boot. Failed to follow-up with orthopedics. He came back to the emergency department for further evaluation. Patient denies any systemic complaints. There is no chest pain has no shortness of breath is no diaphoresis. Patient is from home. No cough no congestion or upper story symptoms. Related Data Home Medications Medication Instructions Recorded Confirmed acetaminophen 500 mg tablet 1,000 mg PO Q8H PRN pain 02/01/23 02/05/23 amlodipine 10 mg tablet 10 mg PO DAILY 02/01/23 02/05/23 atorvastatin 40 mg tablet 40 mg PO BEDTIME 02/01/23 02/05/23 buprenorphine 8 mg-naloxone 2 mg 8 mg sublingual BID 02/01/23 02/05/23 sublingual film dorzolamide 22.3 mg-timolol 6.8 1 drp ophthalmic-Left BID 02/01/23 02/05/23 mg/mL eye drops doxycycline hyclate 100 mg tablet 100 mg PO BID 02/01/23 02/05/23 fluticasone propionate 110 1 puff inhalation BID 02/01/23 02/05/23 mcg/actuation HFA aerosol inhaler (Flovent HFA) glipizide 5 mg tablet, extended 5 mg PO DAILY 02/01/23 02/05/23 release 24 hr lisinopril 40 mg tablet 40 mg PO BID 02/01/23 02/05/23 loratadine 10 mg tablet 10 mg PO DAILY 02/01/23 02/05/23 metformin 1,000 mg tablet 1,000 mg PO BID 02/01/23 02/05/23 metoprolol succinate 25 mg 25 mg PO DAILY 02/01/23 02/05/23 tablet,extended release 24 hr multivitamin-ferrous 1 tab PO DAILY 02/01/23 02/05/23 fumarate-folic acid 18 mg-400 mcg tablet (Certavite-Antioxidant) olanzapine 5 mg tablet 5 mg PO BEDTIME 02/01/23 02/05/23 omega-3 300 mg-dha 120 mg-epa 180 1 cap PO DAILY 02/01/23 02/05/23 mg-fish oil 1,000 mg capsule,del rel omeprazole 20 mg capsule,delayed 20 mg PO DAILY@0630 02/01/23 02/05/23 release oxybutynin chloride 5 mg 5 mg PO DAILY 02/01/23 02/05/23 tablet,extended release 24 hr trazodone 100 mg tablet 100 mg PO BEDTIME 02/01/23 02/05/23 trazodone 150 mg tablet 300 mg PO BEDTIME 02/01/23 02/05/23 Previous Rx's Medication Instructions Recorded tamsulosin 0.4 mg capsule 0.4 mg PO BEDTIME BPH 90 days #90 02/05/23 caps Allergies Allergy/AdvReac Type Severity Reaction Status Date / Time No Known Allergies Allergy Verified 02/25/23 19:29 Review of Systems Review of Systems: No fever no chills no chest pain or shortness breath no nausea no vomiting Yes all other systems are reviewed and are negative [facility] Past Medical History Attestation statement: The following information was validated with the patient. Medical History Anxiety CAD (coronary artery disease) Chronic constipation COPD (chronic obstructive pulmonary disease) COPD (chronic obstructive pulmonary disease) Diabetes mellitus Genital herpes GERD (gastroesophageal reflux disease) History of adenomatous polyp of colon History of fracture of left ankle Hypertension Hypertension Left against medical advice Opioid dependence Opioid dependence on agonist therapy JAUN (obstructive sleep apnea) Pancreatic abnormality Post-traumatic arthritis of left ankle Prepatellar bursitis, left knee Surgical History History of ankle surgery S/P hardware removal Family History Family History Mother No problems noted. Father Liver cancer Social History Social History Household Members: Spouse Housing: Apartment Do you presently have visiting nurse or other home services: Yes Alcohol intake: never Patient Tobacco Use Status: Former Tobacco user Tobacco use type: Cigarette Cigarettes Per Day: 4 e-Cigarette/Vaping Use: Currently Using Second Hand Smoke Exposure: No Substance Use Type: Heroin Advance Directives: Yes Advance Directives on File: Yes Advance Directives Date on File: 01/28/22 service: No Current occupational status: retired and disabled Current occupation: right handed Physical Exam ED Vital Signs: Vital Signs - 24 hr 03/05/23 11:18 Pulse Rate 92 Respiratory Rate 16 Blood Pressure 144/74 H Pulse Oximetry 96 Oxygen Delivery Method Room Air BMI result Body Mass Index 28.1 Appearance: Alert. Oriented X3. No acute distress. Eyes: Pupils equal, round and reactive to light. ENT: Pharynx normal. Neck: Normal inspection. Neck supple. No lymph nodes noted. No crepitus CVS: Normal heart rate and rhythm. Pulses normal. Normal S1 and S2 Respiratory: No respiratory distress. Breath sounds normal. No Wheezing. No rales Abdomen: Soft and nontender. No rigidity. No distention. good BS x4 Skin: Skin warm and dry. Normal skin color. Normal skin turgor. Extremities: Examination of the left leg ankle showed chronic swelling. There is no point tenderness elicited in the ankle. Distal pulses intact. Sensation over the foot intact. No redness over the wound. Neuro: Oriented X 3. No motor deficit. No sensory deficit. Moving all extermities. No slurred speech Medical Decision Making Medical Decision Making MDM Narrative: Patient offered lab x-rays. Did not want to be taking care of. Preceded to push his walking boot back on and walked out of the emergency department. Patient explained risk of infection. Risk of permanent disability walked out of the emergency department Differential Diagnosis Differential Diagnoses: The differential diagnosis associated with the presentation includes Ankle pain, fracture, infection Discharge Plan Discharge Clinical Impression: Acute ankle pain Patient Disposition: Elopement Prescriptions: No Action atorvastatin 40 mg tablet 40 mg PO BEDTIME olanzapine 5 mg tablet 5 mg PO BEDTIME glipizide 5 mg tablet extended release 24hr 5 mg PO DAILY acetaminophen 500 mg tablet 1,000 mg PO Q8H PRN (Reason: pain) trazodone 100 mg tablet 100 mg PO BEDTIME amlodipine 10 mg tablet 10 mg PO DAILY trazodone 150 mg tablet 300 mg PO BEDTIME metformin 1,000 mg tablet 1,000 mg PO BID oxybutynin chloride 5 mg tablet extended release 24hr 5 mg PO DAILY omeprazole 20 mg capsule,delayed release(DR/EC) 20 mg PO DAILY@0630 dorzolamide-timolol 22.3-6.8 mg/mL drops 1 drp ophthalmic-Left BID metoprolol succinate 25 mg tablet extended release 24 hr 25 mg PO DAILY lisinopril 40 mg tablet 40 mg PO BID doxycycline hyclate 100 mg tablet 100 mg PO BID loratadine 10 mg tablet 10 mg PO DAILY fluticasone propionate [Flovent HFA] 110 mcg/actuation HFA aerosol inhaler 1 puff INHALATION BID Certavite-Antioxidant 18-400 mg-mcg tablet 1 tab PO DAILY buprenorphine-naloxone 8-2 mg film 8 mg sublingual BID omega 8-zoi-hkv-fish oil 300 mg (120 mg- 180mg)-1,000 mg capsule,delayed release(DR/EC) 1 cap PO DAILY tamsulosin 0.4 mg capsule 0.4 mg PO BEDTIME 90 Days Qty: 90 1RF
== END 2023-03-05 12:47 | disposition left against medical advice (07) ==
PROVIDERS: Emergency Provider Emergency Medicine Emergency Medical Services; PCP Internal Medicine
DX: M25.572 Pain in left ankle and joints of left foot (principal); I25.10 Atherosclerotic heart disease of native coronary artery without angina pectoris; Z79.899 Other long term (current) drug therapy; Z87.891 Personal history of nicotine dependence
CPT/HCPCS: 99282

== ENCOUNTER 2023-03-06 18:26 | Emergency (ER) | payer OTHER, SELFPAY ==
[2023-03-06 18:29] VITALS: BP 104/58; BP 142/68; PULSE 101; PULSE 104; RESP 20; TEMP 36.6; O2SAT 92; O2SAT 95; BMI 30.5
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
[2023-03-06 20:46] VITALS: BP 128/61; PULSE 97; RESP 16; TEMP 36.6; O2SAT 93
== END 2023-03-06 20:55 | disposition home or self-care (01) ==
PROVIDERS: Emergency Provider Internal Medicine; PCP Internal Medicine
DX: T40.1X1A Poisoning by heroin, accidental (unintentional), initial encounter (principal); Y92.9 Unspecified place or not applicable; E11.9 Type 2 diabetes mellitus without complications; E78.5 Hyperlipidemia, unspecified; J44.9 Chronic obstructive pulmonary disease, unspecified; F11.20 Opioid dependence, uncomplicated; Z79.899 Other long term (current) drug therapy; Z87.891 Personal history of nicotine dependence; Z79.84 Long term (current) use of oral hypoglycemic drugs
CPT/HCPCS: 82947; 99283

== ENCOUNTER 2023-03-16 15:15 | Emergency (ER) | payer OTHER, SELFPAY ==
--- NOTE | ~2023-03-16 | XR_ITS ---
EXAMINATION: XR CHEST CLINICAL INFORMATION: Hypoxia COMPARISON: 02/25/2023 TECHNIQUE: Frontal view of the chest was obtained. FINDINGS: Cardiac leads overlie the chest. The lungs are well expanded. There is no focal consolidation, edema, or effusion. No pneumothorax. The cardiomediastinal silhouette is within normal limits. No acute osseous abnormality. Mild degenerative change at the right glenohumeral joint. XR/XR chest 1V IMPRESSION: No acute pulmonary disease.
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
[2023-03-16 15:36] VITALS: BP 142/68; PULSE 87; RESP 14; TEMP 36.7; O2SAT 91; BMI 27.9
--- NOTE | 2023-03-16 17:26 | PC.NURSE ---
PT ADMITS TO USING HEROIN TODAY WHICH IS WHY HE CAME IN ALTERED CURRENTLY IS AWAKE ALERT AND ANSWERING QUESTIONS PROVIDER AWARE
[2023-03-16 17:27] VITALS: BP 110/77; PULSE 82; RESP 18; TEMP 36.8; O2SAT 94
--- NOTE | 2023-03-16 18:46 | MHC.RECOVSUP ---
? Reason for consult:OPI o? Current location:[facility]? o? Identified substance use concern:? -? Overdose ? Intervention:PT declined ? Plan:Discharge ? Additional information:DIMAS met with this pt and offered treatment and recovery resources but this pt declined. DIMAS spoke with and informed her that the pt declined services.
== END 2023-03-16 20:54 | disposition home or self-care (01) ==
PROVIDERS: Emergency Provider Emergency Medicine
DX: T40.1X1A Poisoning by heroin, accidental (unintentional), initial encounter (principal); Y92.9 Unspecified place or not applicable; R09.02 Hypoxemia; M79.10 Myalgia, unspecified site; Z79.899 Other long term (current) drug therapy; R51.9 Headache, unspecified; R07.89 Other chest pain
CPT/HCPCS: 70450; 71045; 99282; 99284

== ENCOUNTER 2023-04-15 18:15 | Outpatient (REF) | payer OTHER, SELFPAY ==
[2023-04-15 19:11] LABS: Amphetamine Screen Urine Not Detected (Not Detect); Barbiturates, Urine Not Detected (Not Detect); Benzodiazepines Screen Urine Not Detected (Not Detect); Cannabinoid Screen Urine Not Detected (Not Detect); Cocaine Screen Urine Not Detected (Not Detect); Fentanyl, urine POSITIVE (Not Detect); Opiate Screen Urine Not Detected (Not Detect); Phencyclidine Screen Urine Not Detected (Not Detect)
[2023-04-20 11:51] LABS: Norfentanyl, Ur >500.0 (H)
== END 2023-04-15 18:16 | disposition home or self-care (01) ==
LOC: HO.HHCLNP 18:15
PROVIDERS: Visit Provider Family Medicine
DX: F11.20 Opioid dependence, uncomplicated (principal)
CPT/HCPCS: 80307; 80354

== ENCOUNTER 2023-04-23 10:46 | Emergency (ER) | payer OTHER, SELFPAY ==
--- NOTE | ~2023-04-23 | XR_ITS ---
EXAMINATION: XR CHEST CLINICAL INFORMATION: Chest pain COMPARISON: Previous chest x-ray most recent February 2023 TECHNIQUE: 2 views of the chest were obtained. FINDINGS: The cardiac and mediastinal contours are stable. The lungs are well inflated. The lungs are clear. No pleural effusion or pneumothorax. No acute bone abnormality. XR/XR chest 2V IMPRESSION: No evidence for acute disease in the chest.
--- NOTE | 2023-04-23 11:09 | ECG_ITS ---
Test Reason : CHEST PAIN Blood Pressure : / mmHG Vent. Rate : 082 BPM Atrial Rate : 082 BPM P-R Int : 170 ms QRS Dur : 122 ms QT Int : 408 ms P-R-T Axes : 059 -72 038 degrees QTc Int : 476 ms Sinus rhythm with frequent Premature ventricular complexes Left anterior fascicular block Minimal voltage criteria for LVH, may be normal variant ( [place] product ) Possible Anteroseptal infarct (cited on or before 25-FEB-2023) Abnormal ECG When compared with ECG of 25-FEB-2023 19:39, Premature ventricular complexes are now Present Questionable change in initial forces of Septal leads Referred By: Sadia Ha Electronically Signed By:MARI SPARROW
--- NOTE | 2023-04-23 12:01 | ED_ITS ---
HPI - General Adult General Chief complaint: General Medical Stated complaint: CHEST PAIN FOR 3 DAYS Related Data Home Medications Medication Instructions Recorded Confirmed acetaminophen 500 mg tablet 1,000 mg PO Q8H PRN pain 02/01/23 02/05/23 amlodipine 10 mg tablet 10 mg PO DAILY 02/01/23 02/05/23 atorvastatin 40 mg tablet 40 mg PO BEDTIME 02/01/23 02/05/23 buprenorphine 8 mg-naloxone 2 mg 8 mg sublingual BID 02/01/23 02/05/23 sublingual film dorzolamide 22.3 mg-timolol 6.8 1 drp ophthalmic-Left BID 02/01/23 02/05/23 mg/mL eye drops doxycycline hyclate 100 mg tablet 100 mg PO BID 02/01/23 02/05/23 fluticasone propionate 110 1 puff inhalation BID 02/01/23 02/05/23 mcg/actuation HFA aerosol inhaler (Flovent HFA) glipizide 5 mg tablet, extended 5 mg PO DAILY 02/01/23 02/05/23 release 24 hr lisinopril 40 mg tablet 40 mg PO BID 02/01/23 02/05/23 loratadine 10 mg tablet 10 mg PO DAILY 02/01/23 02/05/23 metformin 1,000 mg tablet 1,000 mg PO BID 02/01/23 02/05/23 metoprolol succinate 25 mg 25 mg PO DAILY 02/01/23 02/05/23 tablet,extended release 24 hr multivitamin-ferrous 1 tab PO DAILY 02/01/23 02/05/23 fumarate-folic acid 18 mg-400 mcg tablet (Certavite-Antioxidant) olanzapine 5 mg tablet 5 mg PO BEDTIME 02/01/23 02/05/23 omega-3 300 mg-dha 120 mg-epa 180 1 cap PO DAILY 02/01/23 02/05/23 mg-fish oil 1,000 mg capsule,del rel omeprazole 20 mg capsule,delayed 20 mg PO DAILY@0630 02/01/23 02/05/23 release oxybutynin chloride 5 mg 5 mg PO DAILY 02/01/23 02/05/23 tablet,extended release 24 hr trazodone 100 mg tablet 100 mg PO BEDTIME 02/01/23 02/05/23 trazodone 150 mg tablet 300 mg PO BEDTIME 02/01/23 02/05/23 Previous Rx's Medication Instructions Recorded tamsulosin 0.4 mg capsule 0.4 mg PO BEDTIME BPH 90 days #90 02/05/23 caps Allergies Allergy/AdvReac Type Severity Reaction Status Date / Time No Known Allergies Allergy Verified 02/25/23 19:29 [facility] Past Medical History Medical History Anxiety CAD (coronary artery disease) Chronic constipation COPD (chronic obstructive pulmonary disease) COPD (chronic obstructive pulmonary disease) Diabetes mellitus Genital herpes GERD (gastroesophageal reflux disease) History of adenomatous polyp of colon History of fracture of left ankle Hypertension Hypertension Left against medical advice Opioid dependence Opioid dependence on agonist therapy JAUN (obstructive sleep apnea) Pancreatic abnormality Post-traumatic arthritis of left ankle Prepatellar bursitis, left knee Surgical History History of ankle surgery S/P hardware removal Family History Family History Mother No problems noted. Father Liver cancer Social History Social History Household Members: Spouse Housing: Apartment Do you presently have visiting nurse or other home services: Yes Alcohol intake: never Patient Tobacco Use Status: Former Tobacco user Tobacco use type: Cigarette Cigarettes Per Day: 4 e-Cigarette/Vaping Use: Currently Using Second Hand Smoke Exposure: No Substance Use Type: Heroin Advance Directives: Yes Advance Directives on File: Yes Advance Directives Date on File: 01/28/22 service: No Current occupational status: retired and disabled Current occupation: right handed Physical Exam ED Vital Signs: Vital Signs - 24 hr 04/23/23 12:03 Temperature 98.4 F Pulse Rate 80 Respiratory Rate 17 Blood Pressure 159/87 H Pulse Oximetry 98 Oxygen Delivery Method Room Air BMI result Body Mass Index 31.3 Course Course Course Narrative: This is a rapid medical exam: Additional HPI, ROS, PE not included below will be deferred to primary provider. Patient is a 72-year-old Palauan-speaking male presenting to the emergency department with complaint of chest pain and shortness of breath since yesterday. Also reports pain to bilateral legs, left LE in a walking boot, known ankle fx. Plan: EKG, labs, CXR Medical Decision Making Lab Data 04/23/23 13:06 04/23/23 13:06 Labs: Lab Results 04/23/23 04/23/23 04/23/23 Range/Units 13:06 13:06 13:06 WBC 13.4 H (4.8-10.8) X10*3/uL RBC 4.30 L (4.60-5.80) X10*6/uL Hgb 12.5 L (14.0-18.0) g/dl Hct 37.0 L (42.0-52.0) % MCV 86.0 (80.0-98.0) fL MCH 29.1 (27.0-33.0) pg MCHC 33.8 (31.0-36.0) g/dl RDW 12.9 (11.0-16.0) % Plt Count 397 (160-400) X10*3/uL MPV 8.9 L (9.4-12.4) fL Immature Gran % (Auto) 0.6 H (0.0-0.4) % Neut % (Auto) 77.5 H (45-73) % Lymph % (Auto) 16.3 L (20-40) % Mclennan % (Auto) 4.9 (2-11) % Eos % (Auto) 0.4 (0-4) % Baso % (Auto) 0.3 (0-2) % Lymph # (Auto) 2.2 (1.2-4.9) X10*3/uL Mclennan # (Auto) 0.7 (0.1-1.2) X10*3/uL Eos # (Auto) 0.1 (0.0-0.4) X10*3/uL Baso # (Auto) 0.0 (0.0-0.2) X10*3/uL Abs Immat Gran (auto) 0.08 H (0.00-0.03) X10*3/uL Absolute Neuts (auto) 10.4 H (2.0-8.3) x10*3/uL Absolute Nucleated RBC 0.000 (0.0-0.012) X10*3/uL Nucleated RBC % (auto) 0.0 (0.0-0.2) /100WBC PT 13.5 H (11.1-13.3) SEC INR 1.1 (0.9-1.1) Sodium 136 (135-145) mmol/L Potassium 3.8 (3.3-5.1) mmol/L Chloride 99 (96-108) mmol/L Carbon Dioxide 27 (22-29) mmol/L Anion Gap 14 (12-20) BUN 10 (9-16) mg/dL Creatinine 0.77 (0.5-1.4) mg/dL Estim Creat Clear Calc 90.4 Estimated GFR > 60 Random Glucose 175 H (60-115) mg/dL Calcium 10.1 (8.4-10.2) mg/dL Total Bilirubin 0.4 (0.0-1.0) mg/dL AST 86 H (5-37) U/L ALT 63 H (0-40) U/L Alkaline Phosphatase 89 (39-117) U/L Troponin I High Sens (<3.5-35.0) ng/L Total Protein 8.3 H (6.5-8.0) g/dL Albumin 4.3 (3.5-5.0) g/dL // Range/Units 13:06 WBC (4.8-10.8) X10*3/uL RBC (4.60-5.80) X10*6/uL Hgb (14.0-18.0) g/dl Hct (42.0-52.0) % MCV (80.0-98.0) fL MCH (27.0-33.0) pg MCHC (31.0-36.0) g/dl RDW (11.0-16.0) % Plt Count (160-400) X10*3/uL MPV (9.4-12.4) fL Immature Gran % (Auto) (0.0-0.4) % Neut % (Auto) (45-73) % Lymph % (Auto) (20-40) % Mclennan % (Auto) (2-11) % Eos % (Auto) (0-4) % Baso % (Auto) (0-2) % Lymph # (Auto) (1.2-4.9) X10*3/uL Mclennan # (Auto) (0.1-1.2) X10*3/uL Eos # (Auto) (0.0-0.4) X10*3/uL Baso # (Auto) (0.0-0.2) X10*3/uL Abs Immat Gran (auto) (0.00-0.03) X10*3/uL Absolute Neuts (auto) (2.0-8.3) x10*3/uL Absolute Nucleated RBC (0.0-0.012) X10*3/uL Nucleated RBC % (auto) (0.0-0.2) /100WBC PT (11.1-13.3) SEC INR (0.9-1.1) Sodium (135-145) mmol/L Potassium (3.3-5.1) mmol/L Chloride (96-108) mmol/L Carbon Dioxide (22-29) mmol/L Anion Gap (12-20) BUN (9-16) mg/dL Creatinine (0.5-1.4) mg/dL Estim Creat Clear Calc Estimated GFR Random Glucose (60-115) mg/dL Calcium (8.4-10.2) mg/dL Total Bilirubin (0.0-1.0) mg/dL AST (5-37) U/L ALT (0-40) U/L Alkaline Phosphatase (39-117) U/L Troponin I High Sens 4.7 D (<3.5-35.0) ng/L Total Protein (6.5-8.0) g/dL Albumin (3.5-5.0) g/dL Discharge Plan Discharge Clinical Impression: Chest pain Patient Disposition: Elopement Prescriptions: No Action atorvastatin 40 mg tablet 40 mg PO BEDTIME olanzapine 5 mg tablet 5 mg PO BEDTIME glipizide 5 mg tablet extended release 24hr 5 mg PO DAILY acetaminophen 500 mg tablet 1,000 mg PO Q8H PRN (Reason: pain) trazodone 100 mg tablet 100 mg PO BEDTIME amlodipine 10 mg tablet 10 mg PO DAILY trazodone 150 mg tablet 300 mg PO BEDTIME metformin 1,000 mg tablet 1,000 mg PO BID oxybutynin chloride 5 mg tablet extended release 24hr 5 mg PO DAILY omeprazole 20 mg capsule,delayed release(DR/EC) 20 mg PO DAILY@0630 dorzolamide-timolol 22.3-6.8 mg/mL drops 1 drp ophthalmic-Left BID metoprolol succinate 25 mg tablet extended release 24 hr 25 mg PO DAILY lisinopril 40 mg tablet 40 mg PO BID doxycycline hyclate 100 mg tablet 100 mg PO BID loratadine 10 mg tablet 10 mg PO DAILY fluticasone propionate [Flovent HFA] 110 mcg/actuation HFA aerosol inhaler 1 puff INHALATION BID Certavite-Antioxidant 18-400 mg-mcg tablet 1 tab PO DAILY buprenorphine-naloxone 8-2 mg film 8 mg sublingual BID omega 4-xwd-dwp-fish oil 300 mg (120 mg- 180mg)-1,000 mg capsule,delayed release(DR/EC) 1 cap PO DAILY tamsulosin 0.4 mg capsule 0.4 mg PO BEDTIME 90 Days Qty: 90 1RF
[2023-04-23 12:03] VITALS: BP 159/87; PULSE 80; RESP 17; TEMP 36.9; O2SAT 98; BMI 31.3
[2023-04-23 13:14] LABS: MANUAL DIFF FLAG NO
[2023-04-23 13:15] LABS: Basophils Percent Auto 0.3 % (0-2); Eosinophils Absolute Auto 0.1 X10*3/uL (0.0-0.4); Eosinophils Percent Auto 0.4 % (0-4); Hemoglobin 12.5 g/dl (14.0-18.0); Imm Gran Abs Auto 0.08 X10*3/uL (0.00-0.03); Imm Gran Pct Auto 0.6 % (0.0-0.4); Lymphocytes Absolute Auto 2.2 X10*3/uL (1.2-4.9); Lymphocytes Percent Auto 16.3 % (20-40); Mean Corpuscular HGB Conc 33.8 g/dl (31.0-36.0); Mean Corpuscular Hemoglobin 29.1 pg (27.0-33.0); Mean Platelet Volume 8.9 fL (9.4-12.4); Monocytes Absolute Auto 0.7 X10*3/uL (0.1-1.2); Monocytes Percent Auto 4.9 % (2-11); Neutrophils Absolute Auto 10.4 x10*3/uL (2.0-8.3); Neutrophils Percent Auto 77.5 % (45-73); Platelet Count 397 X10*3/uL (160-400); Red Cell Distribution Width 12.9 % (11.0-16.0); White Blood Count 13.4 X10*3/uL (4.8-10.8)
[2023-04-23 13:21] LABS: INTERNATIONAL NORM RATIO 1.1 (0.9-1.1); Prothrombin Time 13.5 SEC (11.1-13.3)
[2023-04-23 13:29] LABS: Alanine Aminotransferase 63 U/L (0-40); Albumin Level 4.3 g/dL (3.5-5.0); Alkaline Phosphatase 89 U/L (39-117); Anion Gap 14 (12-20); Aspartate Amino Transferase 86 U/L (5-37); Bilirubin Total 0.4 mg/dL (0.0-1.0); Blood Urea Nitrogen 10 mg/dL (9-16); Calcium 10.1 mg/dL (8.4-10.2); Carbon Dioxide 27 mmol/L (22-29); Chloride 99 mmol/L (96-108); Creatinine Clr Calc Pharmacy 90.4; Estimated Glomerular Filt Rate > 60; Glucose Random 175 mg/dL (60-115); Potassium 3.8 mmol/L (3.3-5.1); Sodium 136 mmol/L (135-145); Total Protein 8.3 g/dL (6.5-8.0)
[2023-04-23 13:36] LABS: Troponin-I High Sensitivity 4.7 ng/L (<3.5-35.0)
== END 2023-04-23 16:57 | disposition left against medical advice (07) ==
PROVIDERS: Registered Nurse Emergency; Emergency Provider Emergency Medicine
DX: R07.89 Other chest pain (principal); Z79.899 Other long term (current) drug therapy; Z87.891 Personal history of nicotine dependence
CPT/HCPCS: 36415; 71046; 80053; 84484; 85025; 85610; 93005; 99283

== ENCOUNTER 2023-04-26 11:53 | Outpatient (REF) | payer OTHER, SELFPAY ==
--- NOTE | ~2023-04-26 | XR_ITS ---
EXAMINATION: XR ANKLE, LEFT CLINICAL INFORMATION: Pain in unspecified ankle and joints of foot COMPARISON: 02/01/2023 TECHNIQUE: AP, lateral, and mortise views of the left ankle. FINDINGS: Redemonstration of ORIF with compression plate and screws along the distal fibula. Hardware appears intact. Redemonstration of chronic posttraumatic changes distal tibia. Healed medial malleolar fracture. Redemonstration of subchondral cystic changes in the distal tibia with sclerosis. Redemonstration of advanced degenerative changes in the ankle with arthrosis. XR/XR ankle LT min 3V IMPRESSION: 1. Status post ORIF lateral malleolus. 2. Advanced posttraumatic degenerative arthrosis of the ankle joint
== END 2023-04-26 11:54 | disposition home or self-care (01) ==
LOC: HO.HOSX 11:53
PROVIDERS: Visit Provider Orthopaedic Surgery
DX: M19.172 Post-traumatic osteoarthritis, left ankle and foot (principal); E11.9 Type 2 diabetes mellitus without complications; F11.20 Opioid dependence, uncomplicated; Z98.890 Other specified postprocedural states
CPT/HCPCS: 73610

== ENCOUNTER 2023-04-26 11:53 | Outpatient (AMB) | payer OTHER, SELFPAY ==
--- NOTE | 2023-04-26 11:54 | MHC.OFFVIS ---
Intake Vital Signs 04/26/23 12:20 Height 5 ft 7 in Weight 200 lb BMI 31.3 Intake Visit Reasons: O/V FU Left Ankle JULIENNE 07/03/22 Intake Note: Rosie is a 72 year old male who presents today for a follow up of his left ankle, hx of JULIENNE 07/03/22. Patient reports that he has continued pain, he has not done physical therapy. He reports that he has chest pain, he was seen at [facility] for the same complaints Allergies No Known Allergies Allergy (Verified 04/26/23 11:55) HPI O/V FU Left Ankle JULIENNE 07/03/22 HPI Details Rosie is a 71 year old Diabetic man who presents for a follow up S/P left ankle JULIENNE & abscess I&D, DOS: 07/03/22. His cultures were positive for MSSA. He is seen today continuing to wear his cam walking boot prn. He says he feels like he has improved quite a bit and is happy with his progress He has no complaints today. He denies any symptoms of infection and has been cleared by Dr. Alan on 02/12/23. He is no longer on Abx. [facility] Medical History Anxiety CAD (coronary artery disease) Chronic constipation COPD (chronic obstructive pulmonary disease) COPD (chronic obstructive pulmonary disease) Diabetes mellitus Genital herpes GERD (gastroesophageal reflux disease) History of adenomatous polyp of colon History of fracture of left ankle Hypertension Hypertension Left against medical advice Opioid dependence Opioid dependence on agonist therapy JAUN (obstructive sleep apnea) Pancreatic abnormality Post-traumatic arthritis of left ankle Prepatellar bursitis, left knee Surgical History History of ankle surgery S/P hardware removal Family History Mother No problems noted. Father Liver cancer Social History Household Members: Spouse Housing: Apartment Do you presently have visiting nurse or other home services: Yes Alcohol intake: never Patient Tobacco Use Status: Former Tobacco user Tobacco use type: Cigarette Cigarettes Per Day: 4 e-Cigarette/Vaping Use: Currently Using Second Hand Smoke Exposure: No Substance Use Type: Heroin Advance Directives Date on File: 01/28/22 service: No Current occupational status: retired and disabled Current occupation: right handed Review of Systems Const All systems reviewed & are unremarkable except as noted in HPI and below Physical Exam Vital Signs: BMI result Body Mass Index 31.3 Const General: no acute distress and alert Orientation/consciousness: patient oriented x3 HEENT Head: Yes normocephalic and Yes atraumatic Eyes EOM: EOMs intact bilaterally Resp Effort & Inspection: normal respiratory effort and able to speak in complete sentences Cardio Jugular venous distension: no JVD Skin General skin exam: turgor normal Rashes: no rashes Neuro General: patient oriented x3 Extrem Other: Left Ankle: Skin well-healed No effusion No pain Psych Appearance: grossly normal Affect: normal affect Attitude: cooperative Results Reviewed Results Reviewed: I personally reviewed relevant radiographs. Bony fusion of ankle joint Assessment & Plan Assessment & Plan (1) S/P hardware removal: Comment: He is stable at this time Code(s): Z98.890 - Other specified postprocedural states Plan: This is a 72 year old man S/P left ankle JULIENNE and abscess I&D, DOS: 07/03/22. He has post-traumatic arthritis of his left ankle, following an ORIF, DOS: 02/03/22. He was non-compliant and was walking on his surgically repaired ankle which has led to hardware failure and mal-alignment. He continues to wear his walking boot and has completed all his Abx. He denies any symptoms of infection, and radiographically his ankle appears unchanged from prior. He has no complaints today and says he is doing well. He continues to wear his walking boot PRN. I recommend he continue to remain active as tolerated. He can follow up prn. (2) Post-traumatic arthritis of left ankle: Code(s): M19.172 - Post-traumatic osteoarthritis, left ankle and foot (3) Diabetes mellitus: Code(s): E11.9 - Type 2 diabetes mellitus without complications (4) Opioid dependence on agonist therapy: Comment: on suboxone Code(s): F11.20 - Opioid dependence, uncomplicated Plan Scribed for Jigar Lee MD by Rosalio Chand medical assistant dermatology, on 04/26/23 at 12:40 PM, EST. Orders: Orders XR ankle LT min 3V Today M25.579 - Pain in unspecified ankle and joints of unspecified foot Coding Level of Care Code Est Pt Level 4 (45647) Diagnoses S/P hardware removal Z98.890 Post-traumatic arthritis of left ankle M19.172 Diabetes mellitus E11.9 Opioid dependence on agonist therapy F11.20
[2023-04-26 12:20] VITALS: BMI 31.3
== END 2023-04-26 12:43 | disposition home or self-care (01) ==
PROVIDERS: Visit Provider Orthopaedic Surgery
DX: T84.84XD Pain due to internal orthopedic prosthetic devices, implants and grafts, subsequent encounter (principal); M19.172 Post-traumatic osteoarthritis, left ankle and foot
CPT/HCPCS: 99213

== ENCOUNTER 2023-05-01 12:46 | Emergency (ER) | payer OTHER, SELFPAY ==
[2023-05-01 13:07] VITALS: BP 110/54; BP 91/56; PULSE 74; PULSE 75; RESP 13; TEMP 36.8; O2SAT 94; O2SAT 98; BMI 36.9
[2023-05-01] MEDS: Naloxone HCl Nasal 4 MG SPRAY NOSTRILALT (13:07)
[2023-05-01 13:13] VITALS: BP 144/69; PULSE 79; RESP 11; O2SAT 99
--- NOTE | 2023-05-01 13:14 | ED.AMS ---
HPI - Altered Mental Status General Chief Complaint: Overdose Stated Complaint: altered mental Time Seen by Provider: 05/01/23 13:02 Source: patient and EMS Mode of arrival: EMS Limitations: no limitations History of Present Illness HPI narrative: 72 yo male with history of opioid use disorder on Suboxone, DM, HLD, COPD, hx left ankle fracture w/ MSSA fracture presents to the ER with concern for altered mental status. Per EMS they recall that the patient had barricaded himself inside the bathroom in his apartment building. He was not responsive. They were able to get into the bathroom and the patient was slumped over, nonverbal, not answering questions of breathing independently. He would not receive any medication prior to arrival. Of note, on arrival to the emergency room the patient is drowsy with pinpoint pupils Related Data Home Medications Medication Instructions Recorded Confirmed acetaminophen 500 mg tablet 1,000 mg PO Q8H PRN pain 02/01/23 02/05/23 amlodipine 10 mg tablet 10 mg PO DAILY 02/01/23 02/05/23 atorvastatin 40 mg tablet 40 mg PO BEDTIME 02/01/23 02/05/23 buprenorphine 8 mg-naloxone 2 mg 8 mg sublingual BID 02/01/23 02/05/23 sublingual film dorzolamide 22.3 mg-timolol 6.8 1 drp ophthalmic-Left BID 02/01/23 02/05/23 mg/mL eye drops doxycycline hyclate 100 mg tablet 100 mg PO BID 02/01/23 02/05/23 fluticasone propionate 110 1 puff inhalation BID 02/01/23 02/05/23 mcg/actuation HFA aerosol inhaler (Flovent HFA) glipizide 5 mg tablet, extended 5 mg PO DAILY 02/01/23 02/05/23 release 24 hr lisinopril 40 mg tablet 40 mg PO BID 02/01/23 02/05/23 loratadine 10 mg tablet 10 mg PO DAILY 02/01/23 02/05/23 metformin 1,000 mg tablet 1,000 mg PO BID 02/01/23 02/05/23 metoprolol succinate 25 mg 25 mg PO DAILY 02/01/23 02/05/23 tablet,extended release 24 hr multivitamin-ferrous 1 tab PO DAILY 02/01/23 02/05/23 fumarate-folic acid 18 mg-400 mcg tablet (Certavite-Antioxidant) olanzapine 5 mg tablet 5 mg PO BEDTIME 02/01/23 02/05/23 omega-3 300 mg-dha 120 mg-epa 180 1 cap PO DAILY 02/01/23 02/05/23 mg-fish oil 1,000 mg capsule,del rel omeprazole 20 mg capsule,delayed 20 mg PO DAILY@0630 02/01/23 02/05/23 release oxybutynin chloride 5 mg 5 mg PO DAILY 02/01/23 02/05/23 tablet,extended release 24 hr trazodone 100 mg tablet 100 mg PO BEDTIME 02/01/23 02/05/23 trazodone 150 mg tablet 300 mg PO BEDTIME 02/01/23 02/05/23 Previous Rx's Medication Instructions Recorded tamsulosin 0.4 mg capsule 0.4 mg PO BEDTIME BPH 90 days #90 02/05/23 caps Allergies Allergy/AdvReac Type Severity Reaction Status Date / Time No Known Allergies Allergy Verified 04/26/23 11:55 Review of Systems Review of Systems: Yes Unobtainable due to mental status PMFSH Past Medical History Attestation statement: The following information was validated with the patient. Source: old records reviewed and nursing notes reviewed Medical History Anxiety CAD (coronary artery disease) Chronic constipation COPD (chronic obstructive pulmonary disease) COPD (chronic obstructive pulmonary disease) Diabetes mellitus Genital herpes GERD (gastroesophageal reflux disease) History of adenomatous polyp of colon History of fracture of left ankle Hypertension Hypertension Left against medical advice Opioid dependence Opioid dependence on agonist therapy JAUN (obstructive sleep apnea) Pancreatic abnormality Post-traumatic arthritis of left ankle Prepatellar bursitis, left knee Surgical History History of ankle surgery S/P hardware removal Family History Family History Mother No problems noted. Father Liver cancer Social History Social History Household Members: Spouse Housing: Apartment Do you presently have visiting nurse or other home services: Yes Alcohol intake: never Patient Tobacco Use Status: Former Tobacco user Tobacco use type: Cigarette Cigarettes Per Day: 4 e-Cigarette/Vaping Use: Currently Using Second Hand Smoke Exposure: No Use of substances other than those prescribed or required for medical reasons: Yes Substance Use Type: Heroin Substance Use Frequency: Chronic Longstanding Advance Directives: Yes Advance Directives on File: Yes Advance Directives Date on File: 01/28/22 service: No Current occupational status: retired and disabled Current occupation: right handed Physical Exam ED Vital Signs: Vital Signs - 24 hr 05/01/23 13:07 05/01/23 13:13 05/01/23 14:36 Temperature 98.3 F Pulse Rate 74 79 67 Respiratory Rate 13 11 L 10 L Blood Pressure 91/56 L 144/69 H 127/63 Pulse Oximetry 94 99 97 Oxygen Delivery Method Nasal Cannula Nasal Cannula Room Air Oxygen Flow Rate 4 BMI result Body Mass Index 36.9 Const General: lethargic Orientation/consciousness: lethargic HENMT Head: Yes normal to inspection Ears: hearing grossly normal bilaterally Eyes Other: Pinpoint pupils bilaterally General: appearance normal, both eyes and all related structures Neck Neck: Yes normal visual inspection, Yes full ROM, Yes no lymphadenopathy and Yes no meningeal signs Chest Chest palpation & inspection: normal inspection of the chest Resp Effort & Inspection: normal respiratory effort Auscultation: clear to auscultation bilaterally Cardio Rate: regular rate Rhythm: regular rhythm Peripheral pulses: Peripheral pulses 2+ throughout GI Inspection: Yes normal to inspection Palpation (GI): Soft to palpation and nontender Back/Spine/Pelvis Thoracic/Lumbar Spine: thoracic and lumbar spine normal to inspection Skin General skin exam: no rashes or lesions noted Neuro General: moves all extremities, no meningeal signs and Unable to assess gait Gait exam (Neuro): Unable to assess gait Sensory Exam: Normal double simultaneous stimulation for sensation Course Course Course Narrative: Patient alert and oriented. Vitals are stable. Patient did meet with recovery team but he denied any substance use. He is eating and drinking with no difficulty. He is alert and oriented with normal neuro exam. Plan for discharge home. Offered to go Narcan but declined. Medications Administered Discontinued Medications Generic Name Dose Route Start Last Admin Trade Name Freq PRN Reason Stop Dose Admin Naloxone HCl 4 mg 05/01/23 13:07 05/01/23 13:07 Naloxone Hcl Nasal 4 Mg Orange NOSTRILALT 05/01/23 13:08 4 mg ONCE ONE Administration Naloxone HCl 8 mg 05/01/23 15:33 05/01/23 16:08 Naloxone Hcl Nasal Take Home 4 Mg Orange NOSTRILALT 05/01/23 15:34 8 mg ONCE ONE Administration Medical Decision Making Medical Decision Making [facility] Narrative: 72 yo male with history of opioid use disorder on Suboxone, DM, HLD, COPD, hx left ankle fracture w/ MSSA fracture presents to the ER with concern for altered mental status.? Per EMS they recall that the patient had barricaded himself inside the bathroom in his apartment building.? He was not responsive.? They were able to get into the bathroom and the patient was slumped over, nonverbal, not answering questions of breathing independently.? He would not receive any medication prior to arrival.? Of note, on arrival to the emergency room the patient is drowsy with pinpoint pupils Patient received 4 mg of Narcan and roused independently. He is now alert and oriented. He is moving all extremities. He is yawning. Denies substance use No physical complaints, asking to go home. No concern for acute trauma Will monitor for brief time, give p.o. and reassess Differential Diagnosis Differential Diagnoses: The differential diagnosis associated with the presentation includes Substance use Lab Data [facility] Lab Attestation statement: I reviewed the patient's lab results. Labs: Lab Results 05/01/23 Range/Units 13:10 POC Glucose 94 (60-115) mg/dL Independent Historian Clinical information obtained from an independent historian. History obtained from or confirmed by: EMS Discharge Plan Discharge Clinical Impression: Overdose Patient Disposition: Home, Self-Care Instructions: Adult Overdose (ED) Additional Instructions: You did require 4 mg of Narcan on arrival to wake you up Do not use drugs Prescriptions: No Action atorvastatin 40 mg tablet 40 mg PO BEDTIME olanzapine 5 mg tablet 5 mg PO BEDTIME glipizide 5 mg tablet extended release 24hr 5 mg PO DAILY acetaminophen 500 mg tablet 1,000 mg PO Q8H PRN (Reason: pain) trazodone 100 mg tablet 100 mg PO BEDTIME amlodipine 10 mg tablet 10 mg PO DAILY trazodone 150 mg tablet 300 mg PO BEDTIME metformin 1,000 mg tablet 1,000 mg PO BID oxybutynin chloride 5 mg tablet extended release 24hr 5 mg PO DAILY omeprazole 20 mg capsule,delayed release(DR/EC) 20 mg PO DAILY@0630 dorzolamide-timolol 22.3-6.8 mg/mL drops 1 drp ophthalmic-Left BID metoprolol succinate 25 mg tablet extended release 24 hr 25 mg PO DAILY lisinopril 40 mg tablet 40 mg PO BID doxycycline hyclate 100 mg tablet 100 mg PO BID loratadine 10 mg tablet 10 mg PO DAILY fluticasone propionate [Flovent HFA] 110 mcg/actuation HFA aerosol inhaler 1 puff INHALATION BID Certavite-Antioxidant 18-400 mg-mcg tablet 1 tab PO DAILY buprenorphine-naloxone 8-2 mg film 8 mg sublingual BID omega 9-ajo-rng-fish oil 300 mg (120 mg- 180mg)-1,000 mg capsule,delayed release(DR/EC) 1 cap PO DAILY tamsulosin 0.4 mg capsule 0.4 mg PO BEDTIME 90 Days Qty: 90 1RF Referrals: Physician,None [Primary Care Provider] - 1 week
[2023-05-01 13:15] LABS: Glucose, Whole Blood 94 mg/dL (60-115)
[2023-05-01 14:36] VITALS: BP 127/63; PULSE 67; RESP 10; O2SAT 97
--- NOTE | 2023-05-01 15:44 | MHC.RECOVRN ---
T/w in to see pt to collect substance use hx. Pt agreeable to speak with t/w. Pt with questionable ability to provide a reliable hx. Pt states he started using heroin a few years ago , then stated he used for many years . Unable to recall when he first started using. Reports he used to use heroin [place] and it was usually a few bags a day. Pt receives his MAT at [facility], was unable to provide info on which provider he sees. States I hope I don't get in trouble with my program when asked what program he is in or has previously been in, pt was unable to elaborate further. Pt reports he has been on suboxone for quite awhile . States prior to today he has never in my life required Narcan, and also denies hx of OD. Pt does not appear to be withdrawing at this time, alert, no yawning or vomiting noted, reports I feel fine . Denies barriers to receiving his suboxone. Denies prior hospitalizations for tx or OD. Discussed with ED provider, plan is to D/c home with Narcan.
--- NOTE | 2023-05-01 16:21 | PC.NURSE ---
called and left message with pts spoken christni to pick pt up. pt d/c to the waiting room at this time. pt refused to take his d/c paperwork or his take home narcan, pt reports he does not do drugs
== END 2023-05-01 16:25 | disposition home or self-care (01) ==
PROVIDERS: Emergency Provider Emergency Medicine
DX: T50.901A Poisoning by unspecified drugs, medicaments and biological substances, accidental (unintentional), initial encounter (principal); F11.20 Opioid dependence, uncomplicated; Y92.039 Unspecified place in apartment as the place of occurrence of the external cause; E11.9 Type 2 diabetes mellitus without complications; I10 Essential (primary) hypertension; E78.5 Hyperlipidemia, unspecified; J44.9 Chronic obstructive pulmonary disease, unspecified; Z87.891 Personal history of nicotine dependence; Z79.84 Long term (current) use of oral hypoglycemic drugs; Z79.899 Other long term (current) drug therapy
CPT/HCPCS: 82947; 99284

== ENCOUNTER 2023-05-06 16:06 | Outpatient (REF) | payer OTHER, SELFPAY | END 2023-05-06 16:07 | disposition home or self-care (01) | LOC: HO.HHCLNP 16:06 | PROVIDERS: Visit Provider Family Medicine | DX: F11.20 Opioid dependence, uncomplicated (principal) | CPT/HCPCS: 80354; 80365; G0480 ==

== ENCOUNTER 2023-05-20 15:30 | Emergency (ER) | payer OTHER, SELFPAY ==
[2023-05-20 15:47] VITALS: BP 101/59; BP 142/74; PULSE 87; PULSE 88; RESP 11; TEMP 36.9; O2SAT 95; O2SAT 96; BMI 29.4
--- NOTE | 2023-05-20 15:58 | PC.NURSE ---
patient removed c collar on his own against medical advise
[2023-05-20] MEDS: Naloxone HCl Nasal 4 MG SPRAY NOSTRILALT (16:10)
--- NOTE | 2023-05-20 16:13 | PC.NURSE ---
CALL TO [facility], THEY STATE THAT THE PATIENTS ELECTRIC WC IS IN THE LOBBY OF [facility], PT IS AWARE HE REMAINS AWAKE AND CONVERSATIONAL ON THE PHONE WITH FAMILY
--- NOTE | 2023-05-20 17:51 | PC.NURSE ---
REMAINS AWAKE AND ALERT, TOLERATING PO INTAKE
[2023-05-20 17:54] VITALS: BP 130/65; PULSE 83; RESP 16; O2SAT 95
--- NOTE | 2023-05-20 17:56 | PC.NURSE ---
PT UP AND AMBULATING AROUND THE BED, HE IS ASKING TO BE DISCHARGED. VSS.
--- NOTE | 2023-05-20 17:58 | ED.OVERDOSE ---
HPI - Overdose General Chief Complaint: Overdose Stated Complaint: Fall from wheel chair. ems questioning drug use Time Seen by Provider: 05/20/23 17:15 Source: patient and EMS Mode of arrival: EMS Limitations: no limitations History of Present Illness HPI Narrative: 72-year-old male well known to us with history of heroin use and overdoses, patient brought in by EMS because patient is sleepy and can not stay awake , on arrival patient was given 4 mg of Narcan now patient is at baseline awake, alert, oriented, patient admitted that he was with his friend who used heroin patient do not admit to using himself. Patient has been awake after the Narcan and tolerating p.o. intake with VSS. Related Data Home Medications Medication Instructions Recorded Confirmed acetaminophen 500 mg tablet 1,000 mg PO Q8H PRN pain 02/01/23 02/05/23 amlodipine 10 mg tablet 10 mg PO DAILY 02/01/23 02/05/23 atorvastatin 40 mg tablet 40 mg PO BEDTIME 02/01/23 02/05/23 buprenorphine 8 mg-naloxone 2 mg 8 mg sublingual BID 02/01/23 02/05/23 sublingual film dorzolamide 22.3 mg-timolol 6.8 1 drp ophthalmic-Left BID 02/01/23 02/05/23 mg/mL eye drops doxycycline hyclate 100 mg tablet 100 mg PO BID 02/01/23 02/05/23 fluticasone propionate 110 1 puff inhalation BID 02/01/23 02/05/23 mcg/actuation HFA aerosol inhaler (Flovent HFA) glipizide 5 mg tablet, extended 5 mg PO DAILY 02/01/23 02/05/23 release 24 hr lisinopril 40 mg tablet 40 mg PO BID 02/01/23 02/05/23 loratadine 10 mg tablet 10 mg PO DAILY 02/01/23 02/05/23 metformin 1,000 mg tablet 1,000 mg PO BID 02/01/23 02/05/23 metoprolol succinate 25 mg 25 mg PO DAILY 02/01/23 02/05/23 tablet,extended release 24 hr multivitamin-ferrous 1 tab PO DAILY 02/01/23 02/05/23 fumarate-folic acid 18 mg-400 mcg tablet (Certavite-Antioxidant) olanzapine 5 mg tablet 5 mg PO BEDTIME 02/01/23 02/05/23 omega-3 300 mg-dha 120 mg-epa 180 1 cap PO DAILY 02/01/23 02/05/23 mg-fish oil 1,000 mg capsule,del rel omeprazole 20 mg capsule,delayed 20 mg PO DAILY@0630 02/01/23 02/05/23 release oxybutynin chloride 5 mg 5 mg PO DAILY 02/01/23 02/05/23 tablet,extended release 24 hr trazodone 100 mg tablet 100 mg PO BEDTIME 02/01/23 02/05/23 trazodone 150 mg tablet 300 mg PO BEDTIME 02/01/23 02/05/23 Previous Rx's Medication Instructions Recorded tamsulosin 0.4 mg capsule 0.4 mg PO BEDTIME BPH 90 days #90 02/05/23 caps Allergies Allergy/AdvReac Type Severity Reaction Status Date / Time No Known Allergies Allergy Verified 04/26/23 11:55 Review of Systems Review of Systems: All other systems are reviewed and are negative Constitutional: Reports as per HPI and Reports no additional constitutional complaints Eyes: Reports as per HPI and Reports no additional eye complaints Reports system reviewed and no additional complaints, except as documented Cardiovascular: Reports as per HPI and Reports no additional cardiovascular complaints Respiratory: Reports as per HPI and Reports no additional respiratory complaints Gastrointestinal: Reports as per HPI and Reports no additional gastrointestinal complaints Genitourinary: Reports no additional female genitourinary complaints Musculoskeletal: Reports no additional musculoskeletal complaints Skin/Breast: Reports system reviewed and no additional complaints, except as docu Psychiatric: Reports no additional psychiatric complaints Endocrine: Reports no additional endocrine complaints Hematologic/Lymphatic: Reports no additional hematologic/lymphatic complaints Allergic/Immunologic: Reports no additional allergic/immunologic complaints Reports system reviewed and no additional complaints, except as documented and Reports Abnormal speech present [facility] Past Medical History Medical History Left against medical advice Post-traumatic arthritis of left ankle History of fracture of left ankle COPD (chronic obstructive pulmonary disease) Opioid dependence Hypertension Prepatellar bursitis, left knee CAD (coronary artery disease) Diabetes mellitus JAUN (obstructive sleep apnea) COPD (chronic obstructive pulmonary disease) Genital herpes Opioid dependence on agonist therapy Anxiety History of adenomatous polyp of colon Chronic constipation GERD (gastroesophageal reflux disease) Pancreatic abnormality Hypertension Surgical History History of ankle surgery S/P hardware removal Family History Family History Mother No problems noted. Father Liver cancer Social History Social History Household Members: Spouse Housing: Apartment Do you presently have visiting nurse or other home services: Yes Alcohol intake: never Patient Tobacco Use Status: Former Tobacco user Tobacco use type: Cigarette Cigarettes Per Day: 4 e-Cigarette/Vaping Use: Currently Using Second Hand Smoke Exposure: No Substance Use Type: Heroin Advance Directives: Yes Advance Directives on File: Yes Advance Directives Date on File: 01/28/22 service: No Current occupational status: retired and disabled Current occupation: right handed Physical Exam Vital Signs: Vital Signs: Last Vital Signs Temp 98.4 F 05/20/23 15:47 Pulse 83 05/20/23 17:54 Resp 16 05/20/23 17:54 BP 130/65 05/20/23 17:54 Pulse Ox 95 05/20/23 17:54 O2 Del Method Room Air 05/20/23 17:54 BMI result Body Mass Index 29.4 Vital signs have been reviewed and appear to be correct. Blood pressure elevated. Heart rate normal. Respiratory rate normal. Temperature normal. Oxygen saturation normal. Appearance: Alert. Oriented X3. No acute distress. Head: Normal external exam. Normocephalic. Atraumatic. No [place] signs noted. No raccoon eyes noted Eyes: PERRLA. EOMI. Conjunctiva and sclera normal. Eyelids normal. ENT: TM's Normal. Pharynx normal. Uvula midline. Moist mucous membranes. No trismus noted. No drooling noted. No muffled voice noted. Neck: Normal inspection. Neck supple. FROM. No adenopathy. Thyroid Normal. No meningeal signs. No neck mass noted. CVS: Normal heart rate and rhythm. Heart sound normal. No murmurs noted. Pulses normal throughout. Respiratory: No respiratory distress. Painless inspiration. Breath sounds normal. No wheezes/rales/rhonchi noted. Chest nontender. No accessory muscle usage noted or decreased air movement noted. Abdomen: Soft and nontender. Bowel sounds normal in all 4 quadrants. No distention noted. No organomegaly noted. No visible injury noted. Back: No CVA tenderness. Full range of motion noted. Skin: Skin warm and dry. Normal skin color. Normal skin turgor. No rashes/lesions/lacerations noted. Extremities: No lower extremity edema. Extremities exhibit normal range of motion. Extremities nontender. Neuro: Oriented X 3. Cranial nerve exam: II-XII are grossly intact No motor deficit. No sensory deficit. Reflexes normal. Course Course Course Narrative: heroin OD, patient usually present to the ED with a similar presentation. Patient declined SI or HI, please refer to care team evaluation. Medications Administered Discontinued Medications Generic Name Dose Route Start Last Admin Trade Name Freq PRN Reason Stop Dose Admin Naloxone HCl 4 mg 05/20/23 15:53 05/20/23 16:10 Naloxone Hcl Nasal 4 Mg [place] NOSTRILALT 05/20/23 15:54 4 mg ONCE ONE Administration Medical Decision Making Differential Diagnosis Differential Diagnoses: The differential diagnosis associated with the presentation includes ( Heroin overdose, stable vital signs.) Admission/Observation Consideration of admission/observation: Escalation of care including admission/observation considered Discharge Plan Discharge Clinical Impression: Accidental heroin overdose Patient Disposition: Home, Self-Care Instructions: Adult Overdose (ED) Prescriptions: No Action atorvastatin 40 mg tablet 40 mg PO BEDTIME olanzapine 5 mg tablet 5 mg PO BEDTIME glipizide 5 mg tablet extended release 24hr 5 mg PO DAILY acetaminophen 500 mg tablet 1,000 mg PO Q8H PRN (Reason: pain) trazodone 100 mg tablet 100 mg PO BEDTIME amlodipine 10 mg tablet 10 mg PO DAILY trazodone 150 mg tablet 300 mg PO BEDTIME metformin 1,000 mg tablet 1,000 mg PO BID oxybutynin chloride 5 mg tablet extended release 24hr 5 mg PO DAILY omeprazole 20 mg capsule,delayed release(DR/EC) 20 mg PO DAILY@0630 dorzolamide-timolol 22.3-6.8 mg/mL drops 1 drp ophthalmic-Left BID metoprolol succinate 25 mg tablet extended release 24 hr 25 mg PO DAILY lisinopril 40 mg tablet 40 mg PO BID doxycycline hyclate 100 mg tablet 100 mg PO BID loratadine 10 mg tablet 10 mg PO DAILY fluticasone propionate [Flovent HFA] 110 mcg/actuation HFA aerosol inhaler 1 puff INHALATION BID Certavite-Antioxidant 18-400 mg-mcg tablet 1 tab PO DAILY buprenorphine-naloxone 8-2 mg film 8 mg sublingual BID omega [id number]-fish oil 300 mg (120 mg- 180mg)-1,000 mg capsule,delayed release(DR/EC) 1 cap PO DAILY tamsulosin 0.4 mg capsule 0.4 mg PO BEDTIME 90 Days Qty: 90 1RF
--- NOTE | 2023-05-20 18:36 | HO.SUDE ---
SUDE was completed by the CARE Team. Pt reported that overdose was accidential and was not intentional. Pt denied SI plan or intent at the time of the SUDE and was future oriented and wanting to discharge. Pt reported that he is not interested in services or supports. CARE Team discussed harm reduction, [facility] supports, and services through [facility] in which pt declined all.
--- NOTE | 2023-05-20 18:44 | PC.NURSE ---
patient ambulating around unit with steady gait. given a sandwich and gingerale, awake and alert x 3
--- NOTE | 2023-05-20 18:58 | PC.NURSE ---
PATIENT REFUSED TAKE HOME NARCAN, AMBULATED OFF THE UNIT AT DISCHARGE
== END 2023-05-20 18:59 | disposition home or self-care (01) ==
PROVIDERS: Emergency Provider Emergency Medicine
DX: T40.1X1A Poisoning by heroin, accidental (unintentional), initial encounter (principal); R40.0 Somnolence; F11.20 Opioid dependence, uncomplicated; Y92.9 Unspecified place or not applicable; E11.9 Type 2 diabetes mellitus without complications; I10 Essential (primary) hypertension; J44.9 Chronic obstructive pulmonary disease, unspecified; Z87.891 Personal history of nicotine dependence; Z79.899 Other long term (current) drug therapy; Z79.84 Long term (current) use of oral hypoglycemic drugs
CPT/HCPCS: 99284

== ENCOUNTER 2023-06-20 08:29 | Inpatient (IN) | payer OTHER, SELFPAY ==
--- NOTE | 2023-06-20 | ECG_ITS ---
Test Reason : FALL Blood Pressure : / mmHG Vent. Rate : 080 BPM Atrial Rate : 080 BPM P-R Int : 168 ms QRS Dur : 122 ms QT Int : 418 ms P-R-T Axes : 067 -66 036 degrees QTc Int : 482 ms Sinus rhythm with Premature supraventricular complexes and with frequent Premature ventricular complexes Left anterior fascicular block RSR' or QR pattern in V1 suggests right ventricular conduction delay Abnormal ECG When compared with ECG of 23-APR-2023 11:19, Premature supraventricular complexes are now Present Referred By: Generic ED Physician Electronically Signed By:KONRAD HOLCOMB MD
--- NOTE | ~2023-06-20 | CT_ITS ---
EXAMINATION: CT CHEST WITHOUT CONTRAST CLINICAL INFORMATION: Fall, chest trauma. COMPARISON: Chest CT 02/01/2023. TECHNIQUE: Multidetector volumetric CT imaging of the chest was done. Axial MIP volume rendering provided. Sagittal and coronal reformatted images were obtained. This CT examination was performed using dose optimization techniques as appropriate, variously including the following: *Automated exposure control *Adjustment of mA and/or kV according to patient size (this includes techniques or standardized protocols for targeted exams where dose is matched to indication/reason for exam; i.e. extremities or head) *Use of iterative reconstruction technique DLP: 331 mGy-cm FINDINGS: LUNGS: Biapical pleural parenchymal scarring. There are few scattered micronodules which are unchanged. No follow-up imaging is recommended as per Fleischner Society guidelines. MEDIASTINUM: No adenopathy. No aortic aneurysm. No pericardial effusion. Small hiatal hernia. CORONARY ARTERY CALCIFICATION: Mild. PLEURA: Small left pleural effusion measures simple density. No pneumothorax. AXILLA: No adenopathy. UPPER ABDOMEN: Bilateral adrenal adenomas appear stable. OSSEOUS STRUCTURES: Nondisplaced acute fractures anterior 4th, 5th, and 6th ribs. Nondisplaced acute fractures posterior 5th and 6th left ribs. Nondisplaced subacute fractures of the anterior left 6th and 7th ribs. These fractures are all new compared to 02/01/2023. Mild degenerative changes in the spine. No spinal or sternal fracture. No clavicular or scapular fracture. CT/CT chest wo IV con IMPRESSION: Multiple acute nondisplaced rib fractures involving the anterior segments of the left fourth, fifth, and sixth ribs and the posterior segments of the left fifth and sixth ribs. Additional nondisplaced subacute fractures of the anterior left sixth and seventh ribs. All fractures appear new compared to CT chest 02/01/2023. Please correlate for history of multiple injuries. Small simple density left pleural effusion. No pneumothorax. Fleischner guidelines were followed.
--- NOTE | ~2023-06-20 | CT_ITS ---
EXAMINATION: CT HEAD WITHOUT CONTRAST CT CERVICAL SPINE WITHOUT CONTRAST CLINICAL INFORMATION: Neck trauma, moderate. COMPARISON: None TECHNIQUE: CT of the head and cervical spine were performed without intravenous contrast. Multiplanar reformats were rendered and reviewed. This CT examination was performed using dose optimization techniques as appropriate, variously including the following: *Automated exposure control *Adjustment of mA and/or kV according to patient size (this includes techniques or standardized protocols for targeted exams where dose is matched to indication/reason for exam; i.e. extremities or head) *Use of iterative reconstruction technique DLP: 2179 mGy-cm. FINDINGS: CT head: There is no intracranial hemorrhage, extra-axial collection, mass effect, or territorial infarction. Areas of chronic encephalomalacia and gliosis are seen in the bilateral frontal lobes and in the right temporal lobe likely reflecting sequela of prior trauma or ischemia. Moderate to severe hypoattenuation is seen within the cerebral white matter, typical of chronic microangiopathy. There is a mild degree of brain parenchymal volume loss. The calvarium is intact without fracture. The extracranial structures are within normal limits. CT cervical spine: The cervical spine images are significantly motion degraded. Evaluation for fracture is hampered in this setting. Grossly, there is no fracture or malalignment. The vertebral body heights appear essentially preserved. Mild degenerative changes are seen at the atlantodental articulation. There is no significant narrowing the spinal canal. There is multilevel neural foraminal stenosis related to uncovertebral hypertrophy and facet arthropathy. The lung apices are clear. The extraspinal soft tissues are within normal limits. CT/CT cervical spine wo IV con IMPRESSION: CT HEAD: No acute intracranial abnormality. Areas of chronic encephalomalacia and gliosis are seen in the bilateral frontal lobes and right temporal lobe. 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 CT CERVICAL SPINE: Significantly motion degraded exam. Grossly, no cervical spine fracture or traumatic malalignment identified.
[2023-06-20 08:42] VITALS: BP 178/88; BP 184/80; PULSE 84; PULSE 86; RESP 18; TEMP 36.8; O2SAT 88; O2SAT 95; BMI 25.9
--- NOTE | 2023-06-20 09:19 | ED.FALL ---
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 He is not on blood thinners. He reports to me he slipped yesterday moving in his house and landed on left posterior ribs now it hurts to move or breath. He denies LOC or head strike he was not on the floor for long and EMS found him in bed. He is not a good historian and is somewhat upset with questions being asked. MD complaint: fall Onset (ago): day(s) (yesterday AM) Fall from: standing Fall witnessed: no Place fall occurred: home Loss of consciousness: none Prolonged down time: no Symptoms prior to fall: none Context: tripped/slipped Location of injury: chest Severity: moderate Quality: sharp Associated symptoms (after fall): chest pain and shortness of breath Related Data Home Medications Medication Instructions Recorded Confirmed acetaminophen 500 mg tablet 1,000 mg PO Q8H PRN pain 02/01/23 06/20/23 amlodipine 10 mg tablet 10 mg PO DAILY 02/01/23 06/20/23 atorvastatin 40 mg tablet 40 mg PO BEDTIME 02/01/23 06/20/23 buprenorphine 8 mg-naloxone 2 mg 1 film sublingual BID 02/01/23 06/20/23 sublingual film dorzolamide 22.3 mg-timolol 6.8 1 drp ophthalmic-Left BID 02/01/23 06/20/23 mg/mL eye drops fluticasone propionate 110 1 puff inhalation BID 02/01/23 06/20/23 mcg/actuation HFA aerosol inhaler (Flovent HFA) glipizide 5 mg tablet, extended 5 mg PO DAILY 02/01/23 06/20/23 release 24 hr lisinopril 40 mg tablet 40 mg PO BID 02/01/23 06/20/23 loratadine 10 mg tablet 10 mg PO DAILY 02/01/23 06/20/23 metformin 1,000 mg tablet 1,000 mg PO BID 02/01/23 06/20/23 metoprolol succinate 25 mg 25 mg PO DAILY 02/01/23 06/20/23 tablet,extended release 24 hr multivitamin-ferrous 1 tab PO DAILY 02/01/23 06/20/23 fumarate-folic acid 18 mg-400 mcg tablet (Certavite-Antioxidant) olanzapine 5 mg tablet 5 mg PO BEDTIME 02/01/23 06/20/23 omeprazole 20 mg capsule,delayed 20 mg PO DAILY@0630 02/01/23 06/20/23 release oxybutynin chloride 5 mg 5 mg PO DAILY 02/01/23 06/20/23 tablet,extended release 24 hr trazodone 100 mg tablet 100 mg PO BEDTIME 02/01/23 06/20/23 trazodone 150 mg tablet 150 mg PO BEDTIME 02/01/23 06/20/23 insulin detemir U-100 100 unit/mL 42 unit subcut BID 06/20/23 06/20/23 subcutaneous solution (Levemir U-100 Insulin) latanoprost 0.005 % eye drops 1 drp ophthalmic-Left BEDTIME 06/20/23 06/20/23 omega-3 acid ethyl esters 1 gram 1 cap PO TID 06/20/23 06/20/23 capsule Previous Rx's Medication Instructions Recorded tamsulosin 0.4 mg capsule 0.4 mg PO BEDTIME BPH 90 days #90 02/05/23 caps Allergies Allergy/AdvReac Type Severity Reaction Status Date / Time No Known Allergies Allergy Verified 06/20/23 08:44 Review of Systems Review of Systems: Constitutional : No Weight loss, No Fever, No Chills ENT/Mouth : No sore throat, No Rhinorrhea Eyes: No Eye Pain, No Swelling Cardiovascular : pos Chest Pain, pos SOB, no Dyspnea on Exertion, No Orthopnea, No Edema, No Palpitations Respiratory : No Cough, No Sputum Gastrointestinal : no Nausea, No Vomiting, No Diarrhea, No abdominal Pain, No Hematochezia, No Melena Genitourinary : No Dysuria, No Urinary Frequency Musculoskeletal : No joint pain, No Myalgias, No Joint Swelling Skin : No Skin Lesions, No rash Neuro : No Weakness, No Numbness, No Dizziness, No Headache Psych : No Anxiety/Panic, No Depression All other systems reviewed and are negative [facility] Past Medical History Attestation statement: The following information was validated with the patient. Source: old records reviewed Medical History Left against medical advice Post-traumatic arthritis of left ankle History of fracture of left ankle COPD (chronic obstructive pulmonary disease) Opioid dependence Hypertension Prepatellar bursitis, left knee CAD (coronary artery disease) Diabetes mellitus JAUN (obstructive sleep apnea) COPD (chronic obstructive pulmonary disease) Genital herpes Opioid dependence on agonist therapy Anxiety History of adenomatous polyp of colon Chronic constipation GERD (gastroesophageal reflux disease) Pancreatic abnormality Hypertension Surgical History S/P hardware removal History of ankle surgery Family History Family History Mother No problems noted. Father Liver cancer Social History Social History Household Members: Spouse Housing: Apartment Do you presently have visiting nurse or other home services: Yes Unable to assess alcohol history related to: Unknown Alcohol intake: never Patient Tobacco Use Status: Former Tobacco user Tobacco use type: Cigarette Cigarettes Per Day: 4 Smoked in Last 30 Days: Yes e-Cigarette/Vaping Use: Currently Using Second Hand Smoke Exposure: No Use of substances other than those prescribed or required for medical reasons: Unknown Substance Use Type: Heroin Advance Directives: Yes Advance Directives on File: Yes Advance Directives Date on File: 01/28/22 Nutrition Risks: No Nutritional Risk service: No Current occupational status: retired and disabled Current occupation: right handed Physical Exam Vital Signs: Vital Signs: Last Vital Signs Temp 98.2 F 06/20/23 08:42 Pulse 85 06/20/23 14:52 Resp 17 06/20/23 14:52 BP 160/76 H 06/20/23 14:52 Pulse Ox 94 06/20/23 14:52 O2 Del Method Room Air 06/20/23 14:52 Oxygen Flow Rate 1 06/20/23 08:42 BMI result Body Mass Index 25.9 Appearance: Alert. Oriented X3. No acute distress. poor historian in pain with movements hurts L ribs Eyes: Pupils equal, round and reactive to light. ENT: Pharynx normal. atraumatic Neck: Normal inspection. Neck supple. CVS: Normal heart rate and rhythm. Pulses normal. Chest: L posterior ribs there is a contusion and ttp but no crepitus felt Respiratory: No respiratory distress. Breath sounds normal. Abdomen: Soft and nontender. Skin: Skin warm and dry. Normal skin color. Normal skin turgor. Extremities: No lower extremity edema. L ankle is in a boot Neuro: Oriented X 3. No motor deficit. No sensory deficit. Course Course Course Narrative: not a flail chest no hypoxia stable on 2L will need admission for pain control and observation Medications Administered Discontinued Medications Generic Name Dose Route Start Last Admin Trade Name [place] PRN Reason Stop Dose Admin Hydromorphone HCl 1 mg 06/20/23 09:19 06/20/23 09:49 Hydromorphone Hcl 1 Mg/Ml Syringe IVPUSH 06/20/23 09:20 1 mg ONCE ONE Administration Protocol Lidocaine 1 patch 06/20/23 11:50 06/20/23 13:15 Lidocaine 4 % Patch Adh..Patch TRANSDERMA 06/20/23 11:51 1 patch ONCE ONE Administration Protocol Medical Decision Making Medical Decision Making [facility] Narrative: 72 yo male with PMH of IVDA but states he is not using - on suboxone and took dose this AM, anemia, GERD, anxiety, CAD, DM, COPD, HTN, JAUN, L ankle fracture s/p removal of hardware Jun 2022 due to infection and noncompliance at this time reports mechanical fall and injury to L chest no preceding CP/SOB or GIB symptoms he notes reports it hurts to breathe on left side. He has benign abdominal exam but he is a poor historian. He denies hitting his nead. He denies drug use to me. Labs, CT scan head/cspine, chest for trauma ordered. EKG. Differential Diagnosis Differential Diagnoses: The differential diagnosis associated with the presentation includes rib fracture, contusion, mechanical fall Admission/Observation Consideration of admission/observation: Escalation of care including admission/observation considered will need admission based off rib fractures Consult Healthcare Provider Management of the patient was discussed with: Hospitalist (will admit) Lab Data [facility] Lab Attestation statement: I reviewed the patient's lab results. 06/20/23 09:43 06/20/23 09:43 Labs: Lab Results 06/20/23 Range/Units 09:43 WBC 9.2 (4.8-10.8) X10*3/uL RBC 3.87 L (4.60-5.80) X10*6/uL Hgb 11.2 L (14.0-18.0) g/dl Hct 33.4 L (42.0-52.0) % MCV 86.3 (80.0-98.0) fL MCH 28.9 (27.0-33.0) pg MCHC 33.5 (31.0-36.0) g/dl RDW 13.0 (11.0-16.0) % Plt Count 343 (160-400) X10*3/uL MPV 8.8 L (9.4-12.4) fL Immature Gran % (Auto) 0.4 (0.0-0.4) % Neut % (Auto) 76.1 H (45-73) % Lymph % (Auto) 15.1 L (20-40) % [place] % (Auto) 7.2 (2-11) % Eos % (Auto) 1.0 (0-4) % Baso % (Auto) 0.2 (0-2) % Lymph # (Auto) 1.4 (1.2-4.9) X10*3/uL [place] # (Auto) 0.7 (0.1-1.2) X10*3/uL Eos # (Auto) 0.1 (0.0-0.4) X10*3/uL Baso # (Auto) 0.0 (0.0-0.2) X10*3/uL Abs Immat Gran (auto) 0.04 H (0.00-0.03) X10*3/uL Absolute Neuts (auto) 7.0 (2.0-8.3) x10*3/uL Absolute Nucleated RBC 0.000 (0.0-0.012) X10*3/uL Nucleated RBC % (auto) 0.0 (0.0-0.2) /100WBC PT 11.8 (11.1-13.3) SEC INR 1.0 (0.9-1.1) Sodium 138 (135-145) mmol/L Potassium 3.9 (3.3-5.1) mmol/L Chloride 99 (96-108) mmol/L Carbon Dioxide 27 (22-29) mmol/L Anion Gap 16 (12-20) BUN 16 (9-16) mg/dL Creatinine 0.83 (0.5-1.4) mg/dL Estim Creat Clear Calc 85.7 Estimated GFR > 60 Random Glucose 196 H (60-115) mg/dL Calcium 10.1 (8.4-10.2) mg/dL Total Creatine Kinase 292 H (38-174) U/L Troponin I High Sens 4.9 (<3.5-35.0) ng/L B-Natriuretic Peptide 72 (<100) pg/mL Independent Interpretation I performed an independent interpretation of an: EKG and CT Scan (not flail chest but rib fractures noted no PTX) Interpretation: Rate: 80 Rhythm: NSR with PVCs Parsons: left Normal P waves. Normal SMITH. Normal QRS complex. ST T wave : normal no NICOLE qTC: normal prior studies: no acute ischemia The study has been interpreted contemporaneously by me. . Radiology Impression Discussion of test interpretation with radiology: I have reviewed the radiologist's reading. Independent Historian Clinical information obtained from an independent historian. History obtained from or confirmed by: EMS External Record Review External record reviewed: Inpatient record Social Determinants Patient?s care significantly limited by Social Determinants of Health including: Problems related to primary support group Critical Care Time Critical Care Time Critical Care Time: Yes Total Critical Care Time: 35 Attestation: pain improved after dose of IV dilaudid, no hypoxia will need admission for rib fractures and pain control, review of records and CT scans I attest to this time spent taking care of the patient Discharge Plan Discharge Clinical Impression: Multiple fractures of ribs Qualifiers: Encounter type: initial encounter Fracture type: closed Laterality: left Qualified Code(s): S22.42XA - Multiple fractures of ribs, left side, initial encounter for closed fracture Patient Disposition: Admitted As Inpatient
[2023-06-20 09:49] VITALS: RESP 20
[2023-06-20 09:49] LABS: MANUAL DIFF FLAG NO
[2023-06-20] MEDS: HYDROmorphone HCl 1 MG/ML SYRINGE IVPUSH (09:49)
[2023-06-20 09:50] LABS: Basophils Percent Auto 0.2 % (0-2); Eosinophils Absolute Auto 0.1 X10*3/uL (0.0-0.4); Hematocrit 33.4 % (42.0-52.0); Hemoglobin 11.2 g/dl (14.0-18.0); Imm Gran Abs Auto 0.04 X10*3/uL (0.00-0.03); Imm Gran Pct Auto 0.4 % (0.0-0.4); Lymphocytes Absolute Auto 1.4 X10*3/uL (1.2-4.9); Lymphocytes Percent Auto 15.1 % (20-40); Mean Corpuscular HGB Conc 33.5 g/dl (31.0-36.0); Mean Corpuscular Hemoglobin 28.9 pg (27.0-33.0); Mean Corpuscular Volume 86.3 fL (80.0-98.0); Mean Platelet Volume 8.8 fL (9.4-12.4); Monocytes Absolute Auto 0.7 X10*3/uL (0.1-1.2); Monocytes Percent Auto 7.2 % (2-11); Neutrophils Percent Auto 76.1 % (45-73); Platelet Count 343 X10*3/uL (160-400); Red Blood Count 3.87 X10*6/uL (4.60-5.80); White Blood Count 9.2 X10*3/uL (4.8-10.8)
[2023-06-20 09:56] LABS: Prothrombin Time 11.8 SEC (11.1-13.3)
[2023-06-20 10:18] LABS: Anion Gap 16 (12-20); Blood Urea Nitrogen 16 mg/dL (9-16); Calcium 10.1 mg/dL (8.4-10.2); Carbon Dioxide 27 mmol/L (22-29); Chloride 99 mmol/L (96-108); Creatinine Clr Calc Pharmacy 85.7; Estimated Glomerular Filt Rate > 60; Glucose Random 196 mg/dL (60-115); Potassium 3.9 mmol/L (3.3-5.1); Sodium 138 mmol/L (135-145)
[2023-06-20 10:23] LABS: B Type Natriuretic Peptide 72 pg/mL (<100)
[2023-06-20 10:26] LABS: Troponin-I High Sensitivity 4.9 ng/L (<3.5-35.0)
--- NOTE | 2023-06-20 13:09 | P.HPHOSP_ITS ---
History of Present Illness Date of Service: 06/20/23 Attending physician on admission: Kristian Frank Chief Complaint: Fall at home, back and rib pain Pt is a 72-year-old male with a PMH significant for?insulin-dependent diabetes type 2, HTN, HLD, BPH, hx of left MSSA hardware infection of bimalleolar fracture, and hx of IVDU who presents to the ED for evaluation of back and left- sided chest pain. Pt states that yesterday he experienced a mechanical fall at home, tripping over a rug in his hallway and falling backwards on the floor. Denies headstrike or LOC. Denies hitting any object other than the floor. Pt has since been experiencing severe back and anterior left-sided chest wall pain, worse with movement or deep inspiration. Denies lightheadedness or dizziness denies recent drug use. No alcohol use. Occasionally smokes a cigarette or 2. Patient with history of left bimalleolar fracture with subsequent MS as a infection and removal of hardware due to medical noncompliance, chronically with walking boot on his left foot. Patient states he has very limited mobility at baseline, occasionally ambulates with the use of a cane though otherwise will use a wheelchair. Also has ambulatory assistance from his partner whom he lives with. Patient admits to falling approximately 6 weeks ago when he tripped and in his basement and fell on the concrete floor. He did not seek medical assistance at that time. Patient with limited means of getting to and from the hospital. Denies fever, chills, nausea, vomiting, abdominal pain. In the ED patient was afebrile hypertensive to 178/88, satting at 95% O2 on 2 L NC. Labs were grossly unremarkable. Stable normocytic anemia with H&H 11.2/33.4. Electrolytes WNL. Hepatic and renal function WNL. Troponin 4.9. BNP 72. CT?of head with no acute intracranial abnormality but areas of chronic encephalomalacia and gliosis with moderate to severe chronic microangiopathy. CT of cervical spine with motion degradation, but grossly no cervical spine fracture or traumatic malalignment. CT of chest found multiple acute nondisplaced rib fractures involving the anterior segments of the left 4th, 5th, and 6th ribs and the posterior segments of the left 5th and 6th ribs. Also showed nondisplaced sub acute fractures of the anterior left 6th and 7th ribs. All fractures appear new compared to CT of chest 4 months prior on 02/01/2023. EKG demonstrated sinus rhythm with frequent PVCs and no evidence of ST elevations or depressions. Pt was treated with hydromorphone and lidocaine patch. Pt will be admitted to the hospital for treatment further evaluation intractable pain secondary to multiple acute rib fractures from recent fall at home. Review of Systems 2 Review of Systems: Mechanical fall at home Back and left-sided chest pain, worse with movement or deep inspiration Chronic generalized weakness, limited mobility Denies lightheadedness or dizziness Denies chest pressure No fever, chills, nausea, vomiting, abdominal pain PMFSH Medical History Left against medical advice Post-traumatic arthritis of left ankle History of fracture of left ankle COPD (chronic obstructive pulmonary disease) Opioid dependence Hypertension Prepatellar bursitis, left knee CAD (coronary artery disease) Diabetes mellitus JAUN (obstructive sleep apnea) COPD (chronic obstructive pulmonary disease) Genital herpes Opioid dependence on agonist therapy Anxiety History of adenomatous polyp of colon Chronic constipation GERD (gastroesophageal reflux disease) Pancreatic abnormality Hypertension Family History Mother No problems noted. Father Liver cancer Surgical History S/P hardware removal History of ankle surgery Social History Household Members: Spouse Housing: Apartment Do you presently have visiting nurse or other home services: Yes Unable to assess alcohol history related to: Unknown Alcohol intake: never Patient Tobacco Use Status: Former Tobacco user Tobacco use type: Cigarette Cigarettes Per Day: 4 Smoked in Last 30 Days: Yes e-Cigarette/Vaping Use: Currently Using Second Hand Smoke Exposure: No Use of substances other than those prescribed or required for medical reasons: Unknown Substance Use Type: Heroin Advance Directives: Yes Advance Directives on File: Yes Advance Directives Date on File: 01/28/22 Nutrition Risks: No Nutritional Risk service: No Current occupational status: retired and disabled Current occupation: right handed Meds Allergies Allergy/AdvReac Type Severity Reaction Status Date / Time No Known Allergies Allergy Verified 06/20/23 08:44 Home Medications Medication Instructions Recorded Confirmed Last Taken Type acetaminophen 500 mg tablet 1,000 mg PO Q8H PRN pain 02/01/23 06/20/23 Unknown History amlodipine 10 mg tablet 10 mg PO DAILY 02/01/23 06/20/23 06/19/23 History atorvastatin 40 mg tablet 40 mg PO BEDTIME 02/01/23 06/20/23 06/19/23 History buprenorphine 8 mg-naloxone 2 mg 1 film sublingual BID 02/01/23 06/20/23 06/19/23 History sublingual film dorzolamide 22.3 mg-timolol 6.8 1 drp ophthalmic-Left BID 02/01/23 06/20/23 06/19/23 History mg/mL eye drops fluticasone propionate 110 1 puff inhalation BID 02/01/23 06/20/23 06/19/23 History mcg/actuation HFA aerosol inhaler (Flovent HFA) glipizide 5 mg tablet, extended 5 mg PO DAILY 02/01/23 06/20/23 06/19/23 History release 24 hr lisinopril 40 mg tablet 40 mg PO BID 02/01/23 06/20/23 06/19/23 History loratadine 10 mg tablet 10 mg PO DAILY 02/01/23 06/20/23 06/19/23 History metformin 1,000 mg tablet 1,000 mg PO BID 02/01/23 06/20/23 06/19/23 History metoprolol succinate 25 mg 25 mg PO DAILY 02/01/23 06/20/23 06/19/23 History tablet,extended release 24 hr multivitamin-ferrous 1 tab PO DAILY 02/01/23 06/20/23 06/19/23 History fumarate-folic acid 18 mg-400 mcg tablet (Certavite-Antioxidant) olanzapine 5 mg tablet 5 mg PO BEDTIME 02/01/23 06/20/23 06/19/23 History omeprazole 20 mg capsule,delayed 20 mg PO DAILY@0630 02/01/23 06/20/23 06/19/23 History release oxybutynin chloride 5 mg 5 mg PO DAILY 02/01/23 06/20/23 06/19/23 History tablet,extended release 24 hr trazodone 100 mg tablet 100 mg PO BEDTIME 02/01/23 06/20/23 06/19/23 History trazodone 150 mg tablet 150 mg PO BEDTIME 02/01/23 06/20/23 06/19/23 History insulin detemir U-100 100 unit/mL 42 unit subcut BID 06/20/23 06/20/23 06/19/23 History subcutaneous solution (Levemir U-100 Insulin) latanoprost 0.005 % eye drops 1 drp ophthalmic-Left BEDTIME 06/20/23 06/20/23 06/19/23 History omega-3 acid ethyl esters 1 gram 1 cap PO TID 06/20/23 06/20/23 06/19/23 History capsule Physical Exam 2 Vital Signs and Narrative: Vital Signs: Last Vital Signs Temp 98.2 F 06/20/23 08:42 Pulse 86 06/20/23 08:42 Resp 20 06/20/23 09:49 BP 178/88 H 06/20/23 08:42 Pulse Ox 95 06/20/23 08:42 O2 Del Method Nasal Cannula 06/20/23 08:42 Oxygen Flow Rate 1 06/20/23 08:42 BMI result Body Mass Index 25.9 Constitutional: Alert, looks uncomfortable, in no acute distress. Mental Status: Oriented to person, place and time. Eyes: Pupils are equal, round, and reactive to light. Ear, Nose, and Throat: Oropharynx clear, mucous membranes moist. Ears and nose without deformities. Trachea midline. Respiratory: Clear to auscultation bilaterally. No wheezing, rales, or rhonchi. Cardiovascular: S1, S2 regular. No murmurs, rubs, or gallops. Gastrointestinal: Abdomen soft, non-tender, non-distended. Normal bowel sounds. Chest: Left-sided anterior chest wall tenderness Neurologic: Cranial nerves II-XII are grossly intact bilaterally. No focal neurological deficits. Moves all extremities spontaneously. Skin: No rashes or lesions noted. Musculoskeletal: Upper back tenderness. Extremities: No edema. Walking boot in place on left foot. Psychiatric: Normal mood and affect. Results Labs 06/20/23 09:43 06/20/23 09:43 Labs: Laboratory Results - last 24 hr 06/20/23 09:43 MCV 86.3 MCH 28.9 MCHC 33.5 RDW 13.0 Plt Count 343 MPV 8.8 L Immature Gran % (Auto) 0.4 Neut % (Auto) 76.1 H Lymph % (Auto) 15.1 L [place] % (Auto) 7.2 Eos % (Auto) 1.0 Baso % (Auto) 0.2 Lymph # (Auto) 1.4 [place] # (Auto) 0.7 Eos # (Auto) 0.1 Baso # (Auto) 0.0 Abs Immat Gran (auto) 0.04 H Absolute Neuts (auto) 7.0 Absolute Nucleated RBC 0.000 Nucleated RBC % (auto) 0.0 PT 11.8 INR 1.0 Anion Gap 16 Estim Creat Clear Calc 85.7 Estimated GFR > 60 Random Glucose 196 H Calcium 10.1 Total Creatine Kinase 292 H B-Natriuretic Peptide 72 Imaging Radiologist's Impressions: Impressions Cervical Spine CT 06/20/23 10:19 IMPRESSION: CT HEAD: No acute intracranial abnormality. Areas of chronic encephalomalacia and gliosis are seen in the bilateral frontal lobes and right temporal lobe. 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 CT CERVICAL SPINE: Significantly motion degraded exam. Grossly, no cervical spine fracture or traumatic malalignment identified. Chest CT 06/20/23 10:19 IMPRESSION: Multiple acute nondisplaced rib fractures involving the anterior segments of the left fourth, fifth, and sixth ribs and the posterior segments of the left fifth and sixth ribs. Additional nondisplaced subacute fractures of the anterior left sixth and seventh ribs. All fractures appear new compared to CT chest 02/01/2023. Please correlate for history of multiple injuries. Small simple density left pleural effusion. No pneumothorax. Fleischner guidelines were followed. Head CT 06/20/23 10:19 IMPRESSION: CT HEAD: No acute intracranial abnormality. Areas of chronic encephalomalacia and gliosis are seen in the bilateral frontal lobes and right temporal lobe. 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 CT CERVICAL SPINE: Significantly motion degraded exam. Grossly, no cervical spine fracture or traumatic malalignment identified. Assessment and Plan (1) Multiple fractures of ribs: Qualifiers: Encounter type: initial encounter Fracture type: closed Laterality: l eft Qualified Code(s): S22.42XA - Multiple fractures of ribs, left side, initial encounter for closed fracture Status: Acute (2) Falls frequently: Status: Acute Plan Pt is a 72-year-old male with a PMH significant for?insulin-dependent diabetes type 2, HTN, HLD, BPH, hx of left MSSA hardware infection of bimalleolar fracture, and hx of IVDU who presents to the ED for evaluation of back and left- sided chest pain. Pt will be admitted to the hospital for treatment further evaluation intractable pain secondary to multiple acute rib fractures from recent fall at home. Intractable anterior chest wall pain secondary to multiple acute rib fractures Pt with mechanical fall at home yesterday CT of chest with multiple acute nondisplaced rib fractures involving anterior segments of the left 4th, 5th, and 6th ribs and the posterior segments of the left 5th and 6th ribs Analgesics for pain management Stool softeners Incentive spirometry DuoNebs p.r.n. Supplemental O2 as necessary Frequent falls Pt with mechanical fall at home yesterday and another one and a half months ago CT of chest with multiple acute and subacute rib fractures Pt with limited mobility PT consult Insulin-dependent type [address] on sliding scale insulin, Lantus Diabetic diet HTN Continue home meds GERD PPI BPH Continue tamsulosin Mood disorder Continue olanzapine Full Code Attending:?Dr. Frank DVT Prophylaxis: Lovenox Pt will require a hospitalization of at least two nights for treatment of?intractable anterior chest wall and back pain secondary to multiple rib fractures from recent fall at home. Patient will require analgesics, close monitoring, and PT consultation for history of frequent falls. Time Spent With Patient Time: Total time managing care of this patient today ____ minutes. Quality Stroke Does the patient have a stroke diagnosis?: No VTE Prior VTE?: No VTE Risk Level:: Medical - moderate - high VTE Device Contraindication: Treatment Not Indicated VTE Drug Contraindication: N/A - Med Ordered
[2023-06-20] MEDS: Lidocaine 4 % Patch ADH..PATCH 1 PATCH TRANSDERMA (13:15)
--- NOTE | 2023-06-20 14:22 | PHA.MEDREC ---
Pharmacy Consult ? Medication Reconciliation Pharmacy has completed the medication reconciliation. Spoke to patient to confirm meds. Understands [place] well.
[2023-06-20 14:52] VITALS: BP 160/76; PULSE 85; RESP 17; O2SAT 94
[2023-06-20] MEDS: 0.9 % Sodium Chloride Flush 3 ML SYRINGE IVFLUSH (16:14)
[2023-06-20] MEDS: Morphine Sulfate 2 MG/ML CARTRIDGE IVPUSH (16:14)
[2023-06-20 17:13] VITALS: BP 140/78; PULSE 79; RESP 18; TEMP 36.7; O2SAT 93
[2023-06-20 17:42] LABS: Glucose, Whole Blood 261 mg/dL (60-115)
[2023-06-20] MEDS: Insulin Lispro 100 UNIT/ML 3 ML VIAL SUBCUT ×2 (17:43→21:38)
[2023-06-20] MEDS: Enoxaparin Sodium 40 MG/0.4 ML SYRINGE SUBCUT (17:43)
--- NOTE | 2023-06-20 19:58 | PC.NURSE ---
Pt alert and responds to verbal stimuli, no signs of distress. Pt in bed watching tv. Plan of care ongoing.
[2023-06-20] MEDS: OLANZapine 5 MG TABLET PO (20:24)
[2023-06-20] MEDS: Tamsulosin HCL 0.4 MG CAPSULE PO (20:25)
[2023-06-20] MEDS: traZODone HCL 100 MG TABLET PO (20:25)
[2023-06-20] MEDS: Buprenorphine/Naloxone 8/2 mg FILM 1 FILM SUBLINGUAL (20:25)
[2023-06-20] MEDS: Atorvastatin Calcium 40 MG TABLET PO (20:25)
[2023-06-20] MEDS: lisinopriL 40 MG TABLET PO (20:25)
--- NOTE | 2023-06-20 20:32 | PC.NURSE ---
Both eye drops and fluticasone not avail in [facility].
[2023-06-20 21:28] LABS: Glucose, Whole Blood 186 mg/dL (60-115)
[2023-06-20] MEDS: Insulin Glargine,Hum.rec.anlog 100 UNIT/ML 10 ML VIAL 58 UNIT SUBCUT (21:38)
--- NOTE | 2023-06-20 21:42 | PC.NURSE ---
Pt ca&ox3, no signs of distress. Pt medicated per mar. Plan of care ongoing.
[2023-06-21] MEDS: 0.9 % Sodium Chloride Flush 3 ML SYRINGE IVFLUSH ×3 (00:21→19:01)
--- NOTE | 2023-06-21 00:24 | PC.NURSE ---
Pt IV flushed. Pt ca&ox3, no signs of distress Pt watching tv. Pt requested and light turned off. Pt urinal emptied and returned to bedside. Plan of care ongoing.
[2023-06-21 01:46] VITALS: BP 156/89; PULSE 79; RESP 17; O2SAT 97
[2023-06-21 04:37] VITALS: BP 162/89; PULSE 77; RESP 12; O2SAT 96
--- NOTE | 2023-06-21 05:00 | PC.NURSE ---
Pt out of bed walking in the hallway, when asked if he needed help with something he replied he needed to use the bathroom. This RN offered to bring in a commode and pt refused. Urinal emptied. Pt refusing to remove wet pants and wet hospital gown. Plan of care ongoing.
--- NOTE | 2023-06-21 05:02 | PC.NURSE ---
Pt assisted back into bed. Clean urinal given.
[2023-06-21] MEDS: Omeprazole 20 MG CAPSULE.DR PO (05:57)
--- NOTE | 2023-06-21 05:59 | PC.NURSE ---
Pt medicated per oct. Plan of care ongoing.
[2023-06-21 07:15] LABS: Glucose, Whole Blood 171 mg/dL (60-115)
[2023-06-21] MEDS: Insulin Lispro 100 UNIT/ML 3 ML VIAL SUBCUT ×3 (07:28→21:57)
--- NOTE | 2023-06-21 07:32 | PC.NURSE ---
patient resting in bed, eating his breakfast. medicated with insulin per OCT. patient respirations equal and unlabored patient shows no signs of distress
[2023-06-21 08:18] VITALS: BP 147/77; PULSE 84; RESP 18
[2023-06-21] MEDS: Buprenorphine/Naloxone 8/2 mg FILM 1 FILM SUBLINGUAL ×2 (08:37→21:55)
[2023-06-21] MEDS: oxyBUTYnin chloride ER 5 MG TAB.ER.24 PO (08:37)
[2023-06-21] MEDS: Lidocaine 4 % Patch ADH..PATCH 1 PATCH TRANSDERMA (08:37)
[2023-06-21] MEDS: lisinopriL 40 MG TABLET PO ×2 (08:37→21:55)
[2023-06-21] MEDS: polyethylene glycoL 3350 17 GM POWD.PACK PO (08:37)
[2023-06-21] MEDS: Metoprolol Succinate ER 25 MG TAB.ER.24H PO (08:37)
[2023-06-21] MEDS: amLODIPine Besylate 10 MG TABLET PO (08:38)
[2023-06-21] MEDS: Multivitamin TABLET 1 TAB PO (08:38)
[2023-06-21] MEDS: Loratadine 10 MG TABLET PO (08:38)
--- NOTE | 2023-06-21 08:45 | MHC.CM.PN ---
CM ATTEMPTED TO MEET WITH PT WHO IS CURRENTLY WITH OT CM WILL RETURN
[2023-06-21 08:56] VITALS: BP 147/77; PULSE 84
--- NOTE | 2023-06-21 09:20 | MHC.CM.PN ---
PT REPORTS HE LIVES ALONE AND IS USUALLY INDEPENDENT WITH CARE HE SAYS HE HAS A FRIEND THAT WILL HELP PRN PT HAS NO FORMAL SERVICES PT HAS A CANE, WALKER AND W/C HE HAS A HCP ON FILE PCP: DR MICHAELS [facility] DELIVERED PT REPROTS HE IS NOT WILLING TO GO TO STR HE IS AGREEABLE TO [facility] RE[facility]ERRALS MADE TO [facility] BASED ON PTS STATED PREFERENCES PT SAYS HE WILL LIKELY HAVE TRANSPORT HOME
[2023-06-21 14:21] LABS: Glucose, Whole Blood 239 mg/dL (60-115)
--- NOTE | 2023-06-21 16:08 | P.PNIM_ITS ---
Subjective Subjective Date of Service: 06/22/23 Interval History: back and rib pain Review of Systems pain seems somewhat improving still require iv pain meds Physical Exam 2 Vital Signs: Vital Signs: Last Vital Signs Temp 98.1 F 06/20/23 17:13 Pulse 84 06/21/23 08:56 Resp 18 06/21/23 08:18 BP 147/77 H 06/21/23 08:56 Pulse Ox 96 06/21/23 04:37 O2 Del Method Room Air 06/21/23 08:18 O2 Flow Rate 2 06/21/23 04:37 Oxygen Flow Rate 1 06/20/23 08:42 BMI result Body Mass Index 25.9 Appearance: Alert.? Oriented X3.? still has pain cvs: rrr, [id number] , no murmur res: clear to auscultation ,no rhonchii or wheezing abd: no rebound or guarding ,nt, bs present. ext pulses present , no cyanosis . ms :Left-sided anterior chest wall tenderness. neuro: axo3 , nonfocal. Objective Data Active Medications Acetaminophen (Acetaminophen 325 Mg Tablet) 650 mg PO Q8H PRN PRN Reason: pain Albuterol/Ipratropium (Albuterol/Iprat 2.5/0.5mg 3 Ml Ampul.Neb) 3 ml INHALE RQ4H WHILE AWAKE PRN PRN Reason: Shortness of Breath/Wheezing Amlodipine Besylate (Amlodipine Besylate 10 Mg Tablet) 10 mg PO DAILY [facility]; Protocol Last Admin: 06/21/23 08:38 Dose: 10 mg Documented By: CLAYTON Atorvastatin Calcium (Atorvastatin Calcium 40 Mg Tablet) 40 mg PO BEDTIME [facility] Last Admin: 06/20/23 20:25 Dose: 40 mg Documented By: JACQUELYN Benzonatate (Benzonatate 100 Mg Capsule) 100 mg PO TID PRN PRN Reason: Cough Buprenorphine/Naloxone (Buprenorphine/Naloxone 8/2 Mg Film) 1 film SUBLINGUAL BID [facility] Last Admin: 06/21/23 08:37 Dose: 1 film Documented By: CLAYTON Dextrose (Dextrose 50 % 25 Gm/50 Ml Syringe) 25 gm IVPUSH Q15M PRN; Protocol PRN Reason: per Hypoglycemia Standing Ord. Docusate Sodium (Docusate Sodium 100 Mg Capsule) 100 mg PO DAILY PRN PRN Reason: Constipation Dorzolamide/Timolol (Dorzolamide/Timolo 2.23%/0.68% 10 Ml Drbtl) 1 drop EYE- LEFT BID [facility] Last Admin: 06/21/23 11:41 Dose: Not Given Documented By: CLAYTON Non-Admin Reason: Med Not Available Enoxaparin Sodium (Enoxaparin Sodium 40 Mg/0.4 Ml Syringe) 40 mg SUBCUT Q24H [facility] Last Admin: 06/20/23 17:43 Dose: 40 mg Documented By: TEZ Fluticasone Propionate (Fluticasone Propionate 100 Mcg Blst.W.Dev) 1 puff INHALE RBID [facility] Last Admin: 06/21/23 07:53 Dose: Not Given Documented By: THERESA Non-Admin Reason: Med Not Available Glucose (Glucose Gel 15 Gm Gel..Gram.) 15 gm PO Q15M PRN; Protocol PRN Reason: per Hypoglycemia Standing Ord. Insulin Glargine (Insulin Glargine,Hum.Rec.Anlog 100 Unit/Ml 10 Ml Vial) 58 unit SUBCUT BEDTIME [facility] Last Admin: 06/20/23 21:38 Dose: 58 unit Documented By: JACQUELYN Insulin Human Lispro (Insulin Lispro 100 Unit/Ml 3 Ml Vial) 0 unit SUBCUT QIDACHS [facility]; Protocol Last Admin: 06/21/23 14:25 Dose: 4 unit Documented By: CLAYTON Latanoprost (Latanoprost 0.005 % Ophth Yari 2.5 Ml Drops) 1 drop EYE-LEFT BEDTIME [facility] Last Admin: 06/20/23 20:32 Dose: Not Given Documented By: JACQUELYN Non-Admin Reason: Med Not Available Lidocaine (Lidocaine 4 % Patch Adh..Patch) 1 patch TRANSDERMA DAILY [facility]; Protocol Last Admin: 06/21/23 08:37 Dose: 1 patch Documented By: CLAYTON Lisinopril (Lisinopril 40 Mg Tablet) 40 mg PO BID [facility]; Protocol Last Admin: 06/21/23 08:37 Dose: 40 mg Documented By: CLAYTON Loratadine (Loratadine 10 Mg Tablet) 10 mg PO DAILY [facility] Last Admin: 06/21/23 08:38 Dose: 10 mg Documented By: CLAYTON Melatonin (Melatonin 3 Mg Tablet) 6 mg PO BEDTIME PRN PRN Reason: Insomnia Metoprolol Succinate (Metoprolol Succinate Er 25 Mg Tab.Er.24h) 25 mg PO DAILY [facility]; Protocol Last Admin: 06/21/23 08:37 Dose: 25 mg Documented By: CLAYTON Morphine Sulfate (Morphine Sulfate 2 Mg/Ml Cartridge) 2 mg IVPUSH Q4H PRN; Protocol PRN Reason: Pain, Mild (Pain Scale 1-3) Last Admin: 06/20/23 16:14 Dose: 2 mg Documented By: NNAMDI Multivitamins/Vitamin C (Multivitamin Tablet) 1 tab PO DAILY [facility] Last Admin: 06/21/23 08:38 Dose: 1 tab Documented By: CLAYTON Olanzapine (Olanzapine 5 Mg Tablet) 5 mg PO BEDTIME [facility] Last Admin: 06/20/23 20:24 Dose: 5 mg Documented By: JACQUELYN Omeprazole (Omeprazole 20 Mg Capsule.Dr) 20 mg PO DAILY@0630 [facility] Last Admin: 06/21/23 05:57 Dose: 20 mg Documented By: JACQUELYN Ondansetron HCl (Ondansetron Hcl 4 Mg/2 Ml Vial) 4 mg IVPUSH Q8H PRN PRN Reason: Nausea and Vomiting Oxybutynin Chloride (Oxybutynin Chloride Er 5 Mg Tab.Er.24) 5 mg PO DAILY [facility] Last Admin: 06/21/23 08:37 Dose: 5 mg Documented By: CLAYTON Oxycodone HCl (Oxycodone Hcl Immed Release 5 Mg Tablet) 5 mg PO Q4H PRN PRN Reason: Pain, Mild (Pain Scale 1-3) Polyethylene Glycol (Polyethylene Glycol 3350 17 Gm Powd.Pack) 17 gm PO DAILY [facility] Last Admin: 06/21/23 08:37 Dose: 17 gm Documented By: CLAYTON Sodium Chloride (0.9 % Sodium Chloride Flush 3 Ml Syringe) [facility] Last Admin: 06/21/23 07:30 Dose: 3 ml Documented By: CLAYTON Tamsulosin HCl (Tamsulosin Hcl 0.4 Mg Capsule) 0.4 mg PO BEDTIME [facility] Last Admin: 06/20/23 20:25 Dose: 0.4 mg Documented By: JACQUELYN Trazodone HCl (Trazodone Hcl 100 Mg Tablet) 100 mg PO BEDTIME [facility] Last Admin: 06/20/23 20:25 Dose: 100 mg Documented By: JACQUELYN Labs 06/20/23 09:43 06/20/23 09:43 Labs: Laboratory Results - last 24 hr 06/20/23 06/20/23 06/21/23 17:38 21:24 07:11 POC Glucose 261 H 186 H 171 H 06/21/23 14:17 POC Glucose 239 H Assessment and Plan (1) Multiple fractures of ribs: Status: Acute Plan 72-year-old male with a PMH significant for?insulin-dependent diabetes type 2, HTN, HLD, BPH, 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 Pt will be admitted to the hospital for treatment further evaluation intractable pain secondary to multiple acute rib fractures from recent fall at home. Intractable anterior chest wall pain secondary to multiple acute rib fractures Pt with mechanical fall at home yesterday CT of chest with multiple acute nondisplaced rib fractures involving anterior segments of the left 4th, 5th, and 6th ribs and the posterior segments of the left 5th and 6th ribs Analgesics for pain management Stool softeners Incentive spirometry DuoNebs p.r.n. Supplemental O2 as necessary Frequent falls Pt with mechanical fall at home yesterday and another one and a half months ago CT of chest with multiple acute and subacute rib fractures Pt with limited mobility PT consult pending Insulin-dependent type [address] on sliding scale insulin, Lantus Diabetic diet HTN Continue home meds GERD PPI BPH Continue tamsulosin Mood disorder Continue olanzapine Full Code DVT Prophylaxis: Lovenox Pt will require a hospitalization of at least two nights for treatment of?intractable anterior chest wall and back pain secondary to multiple rib fractures from recent fall at home. Patient will require analgesics, close monitoring, and PT consultation for history of frequent falls. Time Spent With Patient Time: Total time managing care of this patient today ____ minutes. Quality Stroke Does the patient have a stroke diagnosis?: No VTE Prior VTE?: No VTE Risk Level:: Medical - moderate - high VTE Device Contraindication: Treatment Not Indicated VTE Drug Contraindication: N/A - Med Ordered
[2023-06-21 18:39] LABS: Glucose, Whole Blood 146 mg/dL (60-115)
[2023-06-21] MEDS: Enoxaparin Sodium 40 MG/0.4 ML SYRINGE SUBCUT (19:01)
[2023-06-21 21:48] LABS: Glucose, Whole Blood 255 mg/dL (60-115)
[2023-06-21 21:54] VITALS: BP 173/93; PULSE 75; RESP 16; O2SAT 96
[2023-06-21] MEDS: traZODone HCL 100 MG TABLET PO (21:55)
[2023-06-21] MEDS: OLANZapine 5 MG TABLET PO (21:55)
[2023-06-21] MEDS: Atorvastatin Calcium 40 MG TABLET PO (21:55)
[2023-06-21] MEDS: Tamsulosin HCL 0.4 MG CAPSULE PO (21:55)
[2023-06-21] MEDS: Insulin Glargine,Hum.rec.anlog 100 UNIT/ML 10 ML VIAL 58 UNIT SUBCUT (21:56)
--- NOTE | 2023-06-21 22:33 | PC.NURSE ---
this rn assumed care of pt. pt resting comfortably in bed at this time. denies pain.
--- NOTE | 2023-06-21 22:33 | PC.NURSE ---
this RN contacted pharmacy in regards to pt eye drops, pharmacy will send up eye drops to give to pt.
[2023-06-22] VITALS (9 sets, daily range): BP systolic 139–177; BP diastolic 70–102; PULSE 64–77; RESP 14–20; TEMP 36.1–36.7; O2SAT 94–98
--- NOTE | 2023-06-22 00:47 | PC.NURSE ---
pt unable to receive eye drops due to not having medication available.
--- NOTE | 2023-06-22 00:55 | PC.NURSE ---
report given to [facility] nurse.
[2023-06-22] MEDS: Morphine Sulfate 2 MG/ML CARTRIDGE IVPUSH ×2 (02:11→09:09)
[2023-06-22] MEDS: 0.9 % Sodium Chloride Flush 3 ML SYRINGE IVFLUSH ×3 (02:15→15:03)
[2023-06-22] MEDS: oxyCODONE HCl Immed Release 5 MG TABLET PO (06:01)
[2023-06-22] MEDS: Omeprazole 20 MG CAPSULE.DR PO (06:01)
[2023-06-22 07:19] LABS: Glucose, Whole Blood 113 mg/dL (60-115)
[2023-06-22] MEDS: oxyBUTYnin chloride ER 5 MG TAB.ER.24 PO (09:12)
[2023-06-22] MEDS: Multivitamin TABLET 1 TAB PO (09:12)
[2023-06-22] MEDS: Loratadine 10 MG TABLET PO (09:13)
[2023-06-22] MEDS: Docusate Sodium 100 MG CAPSULE PO (09:13)
[2023-06-22] MEDS: amLODIPine Besylate 10 MG TABLET PO (09:13)
[2023-06-22] MEDS: lisinopriL 40 MG TABLET PO ×2 (09:13→21:15)
[2023-06-22] MEDS: Lidocaine 4 % Patch ADH..PATCH 1 PATCH TRANSDERMA (09:16)
[2023-06-22] MEDS: Metoprolol Succinate ER 25 MG TAB.ER.24H PO (09:17)
[2023-06-22] MEDS: Dorzolamide/Timolo 2.23%/0.68% 10 ML DRBTL 1 DROP EYE-LEFT (09:19)
--- NOTE | 2023-06-22 10:27 | P.CDIM_ITS ---
PROVIDER RESPONSE TEXT: To clarify, the appropriate diagnosis supported by the clinical indicators: Diabetes mellitus Type 2 with hyperglycemia QUERY TEXT: PHYSICIAN'S DOCUMENTATION REQUEST Date of Query: 06/22/2023 08:08 AM EDT Patient Name: Rosie Garza Admit Date: 06/20/2023 Dear Kristian Frank, A review of the medical record indicates additional documentation may be needed. Please review below and update the documentation accordingly. Clinical Indicators: LAB FINDINGS: POC glucose [address] on sliding scale. Diabetic diet. Please clarify the following regarding the Complications of Diabetes Mellitus (DM): Diabetes mellitus Type 2 with hyperglycemia Other please specify Other (explain)Clinically unable to determine (explain)Thank you, Kalyn Thomas, CCS, CDIS Use of terms such as suspected, likely, concern for, or probable (associated with a specific diagnosi s that is being evaluated, monitored, or treated as if it exists) are acceptable and can be coded in the inpatient se tting, when documented at the time of discharge. Please use your independent medical judgment in providing your response. THIS QUERY IS PART OF THE PERMANENT MEDICAL RECORD
[2023-06-22] MEDS: oxyCODONE HCl Immed Release 5 MG TABLET 10 MG PO (10:58)
[2023-06-22 11:12] LABS: Glucose, Whole Blood 184 mg/dL (60-115)
[2023-06-22] MEDS: Insulin Lispro 100 UNIT/ML 3 ML VIAL SUBCUT ×3 (11:22→21:14)
--- NOTE | 2023-06-22 12:53 | HO.PM.IMPN ---
Subjective Subjective Date of Service: 06/22/23 Interval History: back and rib pain Review of Systems back and rib pain still persistent Denies any chest pain or shortness of breath or abdominal pain or nausea or vomiting. Physical Exam Vital Signs: Vital Signs: Last Vital Signs Temp 97.7 F 06/22/23 07:17 Pulse 73 06/22/23 07:17 Resp 14 06/22/23 09:09 BP 148/96 H 06/22/23 07:17 Pulse Ox 98 06/22/23 07:17 O2 Del Method Nasal Cannula 06/22/23 07:17 O2 Flow Rate 1 06/22/23 07:17 Oxygen Flow Rate 1 06/20/23 08:42 BMI result Body Mass Index 25.9 Appearance: Alert.? Oriented X3.? still has pain cvs: rrr, [id number] , no murmur res: clear to auscultation ,no rhonchii or wheezing abd: no rebound or guarding ,nt, bs present. ext pulses present , no cyanosis . ms :Left-sided anterior chest wall tenderness. neuro: axo3 , nonfocal. Objective Data Active Medications Acetaminophen (Acetaminophen 325 Mg Tablet) 650 mg PO Q8H PRN PRN Reason: pain Albuterol/Ipratropium (Albuterol/Iprat 2.5/0.5mg 3 Ml Ampul.Neb) 3 ml INHALE RQ4H WHILE AWAKE PRN PRN Reason: Shortness of Breath/Wheezing Amlodipine Besylate (Amlodipine Besylate 10 Mg Tablet) 10 mg PO DAILY [facility]; Protocol Last Admin: 06/22/23 09:13 Dose: 10 mg Documented By: VALENTINA Atorvastatin Calcium (Atorvastatin Calcium 40 Mg Tablet) 40 mg PO BEDTIME [facility] Last Admin: 06/21/23 21:55 Dose: 40 mg Documented By: COOPEB Benzonatate (Benzonatate 100 Mg Capsule) 100 mg PO TID PRN PRN Reason: Cough Buprenorphine/Naloxone (Buprenorphine/Naloxone 8/2 Mg Film) 1 film SUBLINGUAL BID [facility] Last Admin: 06/22/23 09:12 Dose: Not Given Documented By: VALENTINA Non-Admin Reason: Patient Refused Dextrose (Dextrose 50 % 25 Gm/50 Ml Syringe) 25 gm IVPUSH Q15M PRN; Protocol PRN Reason: per Hypoglycemia Standing Ord. Docusate Sodium (Docusate Sodium 100 Mg Capsule) 100 mg PO DAILY PRN PRN Reason: Constipation Last Admin: 06/22/23 09:13 Dose: 100 mg Documented By: VALENTINA Dorzolamide/Timolol (Dorzolamide/Timolo 2.23%/0.68% 10 Ml Drbtl) 1 drop EYE-LEFT BID [facility] Last Admin: 06/22/23 09:19 Dose: 1 drop Documented By: VALENTINA Enoxaparin Sodium (Enoxaparin Sodium 40 Mg/0.4 Ml Syringe) 40 mg SUBCUT Q24H [facility] Last Admin: 06/21/23 19:01 Dose: 40 mg Documented By: CLAYTON Fluticasone Propionate (Fluticasone Propionate 100 Mcg Blst.W.Dev) 1 puff INHALE RBID [facility] Last Admin: 06/22/23 08:31 Dose: Not Given Documented By: KANA Non-Admin Reason: Med Not Available Glucose (Glucose Gel 15 Gm Gel..Gram.) 15 gm PO Q15M PRN; Protocol PRN Reason: per Hypoglycemia Standing Ord. Insulin Glargine (Insulin Glargine,Hum.Rec.Anlog 100 Unit/Ml 10 Ml Vial) 58 unit SUBCUT BEDTIME [facility] Last Admin: 06/21/23 21:56 Dose: 58 unit Documented By: HELEN Insulin Human Lispro (Insulin Lispro 100 Unit/Ml 3 Ml Vial) 0 unit SUBCUT QIDACHS [facility]; Protocol Last Admin: 06/22/23 11:22 Dose: 2 unit Documented By: VALENTINA Latanoprost (Latanoprost 0.005 % Ophth Yari 2.5 Ml Drops) 1 drop EYE-LEFT BEDTIME [facility] Last Admin: 06/22/23 00:49 Dose: Not Given Documented By: CHLOE Non-Admin Reason: Med Not Available Lidocaine (Lidocaine 4 % Patch Adh..Patch) 1 patch TRANSDERMA DAILY [facility]; Protocol Last Admin: 06/22/23 09:16 Dose: 1 patch Documented By: VALENTINA Lisinopril (Lisinopril 40 Mg Tablet) 40 mg PO BID [facility]; Protocol Last Admin: 06/22/23 09:13 Dose: 40 mg Documented By: VALENTINA Loratadine (Loratadine 10 Mg Tablet) 10 mg PO DAILY [facility] Last Admin: 06/22/23 09:13 Dose: 10 mg Documented By: VALENTINA Melatonin (Melatonin 3 Mg Tablet) 6 mg PO BEDTIME PRN PRN Reason: Insomnia Metoprolol Succinate (Metoprolol Succinate Er 25 Mg Tab.Er.24h) 25 mg PO DAILY [facility]; Protocol Last Admin: 06/22/23 09:17 Dose: 25 mg Documented By: VALENTINA Morphine Sulfate (Morphine Sulfate 2 Mg/Ml Cartridge) 4 mg IVPUSH Q4H PRN; Protocol PRN Reason: Pain, Mild (Pain Scale 1-3) Morphine Sulfate (Morphine Sulfate 4 Mg/Ml Cartridge) 4 mg SUBCUT ONCE ONE; Protocol Stop: 06/22/23 12:52 Multivitamins/Vitamin C (Multivitamin Tablet) 1 tab PO DAILY [facility] Last Admin: 06/22/23 09:12 Dose: 1 tab Documented By: VALENTINA Olanzapine (Olanzapine 5 Mg Tablet) 5 mg PO BEDTIME [facility] Last Admin: 06/21/23 21:55 Dose: 5 mg Documented By: HELEN Omeprazole (Omeprazole 20 Mg Capsule.Dr) 20 mg PO DAILY@0630 [facility] Last Admin: 06/22/23 06:01 Dose: 20 mg Documented By: LITZY Ondansetron HCl (Ondansetron Hcl 4 Mg/2 Ml Vial) 4 mg IVPUSH Q8H PRN PRN Reason: Nausea and Vomiting Oxybutynin Chloride (Oxybutynin Chloride Er 5 Mg Tab.Er.24) 5 mg PO DAILY [facility] Last Admin: 06/22/23 09:12 Dose: 5 mg Documented By: VALENTINA Oxycodone HCl (Oxycodone Hcl Immed Release 5 Mg Tablet) 10 mg PO Q4H PRN PRN Reason: Pain, Mild (Pain Scale 1-3) Last Admin: 06/22/23 10:58 Dose: 10 mg Documented By: VALENTINA Polyethylene Glycol (Polyethylene Glycol 3350 17 Gm Powd.Pack) 17 gm PO BID [facility] Sodium Chloride (0.9 % Sodium Chloride Flush 3 Ml Syringe) 3 ml IVFLUSH QSHIFT [facility] Last Admin: 06/22/23 09:16 Dose: 3 ml Documented By: VALENTINA Tamsulosin HCl (Tamsulosin Hcl 0.4 Mg Capsule) 0.4 mg PO BEDTIME [facility] Last Admin: 06/21/23 21:55 Dose: 0.4 mg Documented By: HELEN Trazodone HCl (Trazodone Hcl 100 Mg Tablet) 100 mg PO BEDTIME [facility] Last Admin: 06/21/23 21:55 Dose: 100 mg Documented By: HELEN Labs 06/20/23 09:43 06/20/23 09:43 Labs: Laboratory Results - last 24 hr 06/21/23 06/21/23 06/21/23 14:17 18:35 21:45 POC Glucose 239 H 146 H 255 H 06/22/23 06/22/23 07:16 11:09 POC Glucose 113 184 H Assessment and Plan (1) Multiple fractures of ribs: Status: Acute Plan 72-year-old male with a PMH significant for?insulin-dependent diabetes type 2, HTN, HLD, BPH, 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 Pt will be admitted to the hospital for treatment further evaluation intractable pain secondary to multiple acute rib fractures from recent fall at home. Intractable anterior chest wall pain secondary to multiple acute rib fractures Pt with mechanical fall at home yesterday CT of chest with multiple acute nondisplaced rib fractures involving anterior segments of the left 4th, 5th, and 6th ribs and the posterior segments of the left 5th and 6th ribs Analgesics for pain management Stool softeners Incentive spirometry DuoNebs p.r.n. Supplemental O2 as necessary iv morphine and po osycodone adjusted ,bowel regimen also adjusted. Frequent falls Pt with mechanical fall at home yesterday and another one and a half months ago CT of chest with multiple acute and subacute rib fractures Pt with limited mobility PT consult pending Insulin-dependent type 2 diabetes with hyperglycemia added Ha1c levels Hold metformin Place on sliding scale insulin, Lantus Diabetic diet HTN Continue home meds GERD PPI BPH Continue tamsulosin Mood disorder Continue olanzapine hx of ivdu: on subaxone addiction consult -he refuses subxone intermittent. Full Code DVT Prophylaxis: Lovenox ongoing hospitalization need:treatment of?intractable anterior chest wall and back pain secondary to multiple rib fractures from recent fall at home. Patient will require analgesics, close monitoring, and PT consultation for history of frequent falls. Time Spent With Patient Time: Total time managing care of this patient today ____ minutes. Quality Stroke Does the patient have a stroke diagnosis?: No VTE Prior VTE?: No VTE Risk Level:: Medical - moderate - high VTE Device Contraindication: Treatment Not Indicated VTE Drug Contraindication: N/A - Med Ordered
[2023-06-22] MEDS: Morphine Sulfate 4 MG/ML CARTRIDGE IVPUSH (13:14)
--- NOTE | 2023-06-22 14:21 | MHC.CM.PN ---
CM received a call from [facility] JOVANA/Zoë; Patient is active with [facility] for SN and JOVANA will ask that they add a ENG[employer]ER [employer]. Zoë will reach out to [facility] for home PT. JOVANA will follow.
--- NOTE | 2023-06-22 14:45 | MHC.CM.PN ---
Zoë from [facility] confirmed that [facility] can add [employer]ER and continue SN, and [facility] will provide home PT.CM will follow.
[2023-06-22] MEDS: Enoxaparin Sodium 40 MG/0.4 ML SYRINGE SUBCUT (15:03)
[2023-06-22] MEDS: Buprenorphine/Naloxone 8/2 mg FILM 1 FILM SUBLINGUAL (15:03)
[2023-06-22 16:32] LABS: Glucose, Whole Blood 235 mg/dL (60-115)
[2023-06-22] MEDS: Morphine Sulfate 2 MG/ML CARTRIDGE 4 MG IVPUSH ×2 (16:59→21:13)
[2023-06-22] MEDS: Fluticasone Propionate 100 MCG BLST.W.DEV 1 PUFF INHALE (19:25)
[2023-06-22 19:40] LABS: Glucose, Whole Blood 197 mg/dL (60-115)
[2023-06-22] MEDS: Insulin Glargine,Hum.rec.anlog 100 UNIT/ML 10 ML VIAL 58 UNIT SUBCUT (21:14)
[2023-06-22] MEDS: Atorvastatin Calcium 40 MG TABLET PO (21:15)
[2023-06-22] MEDS: OLANZapine 5 MG TABLET PO (21:15)
[2023-06-22] MEDS: traZODone HCL 100 MG TABLET PO (21:15)
[2023-06-22] MEDS: Tamsulosin HCL 0.4 MG CAPSULE PO (21:16)
[2023-06-22] MEDS: polyethylene glycoL 3350 17 GM POWD.PACK PO (21:17)
[2023-06-23] VITALS (9 sets, daily range): BP systolic 130–150; BP diastolic 65–93; PULSE 71–77; RESP 12–20; TEMP 36.4–37.2; O2SAT 93–96
[2023-06-23 07:40] LABS: Glucose, Whole Blood 134 mg/dL (60-115)
[2023-06-23] MEDS: Fluticasone Propionate 100 MCG BLST.W.DEV 1 PUFF INHALE ×2 (08:01→19:29)
[2023-06-23] MEDS: Metoprolol Succinate ER 25 MG TAB.ER.24H PO (08:49)
[2023-06-23] MEDS: Lidocaine 4 % Patch ADH..PATCH 1 PATCH TRANSDERMA (08:50)
[2023-06-23] MEDS: oxyBUTYnin chloride ER 5 MG TAB.ER.24 PO (08:50)
[2023-06-23] MEDS: Buprenorphine/Naloxone 8/2 mg FILM 1 FILM SUBLINGUAL (08:50)
[2023-06-23] MEDS: polyethylene glycoL 3350 17 GM POWD.PACK PO ×2 (08:50→20:52)
[2023-06-23] MEDS: Dorzolamide/Timolo 2.23%/0.68% 10 ML DRBTL 1 DROP EYE-LEFT ×2 (08:51→20:56)
[2023-06-23] MEDS: amLODIPine Besylate 10 MG TABLET PO (08:51)
[2023-06-23] MEDS: lisinopriL 40 MG TABLET PO ×2 (08:51→20:47)
[2023-06-23] MEDS: Multivitamin TABLET 1 TAB PO (08:51)
[2023-06-23] MEDS: Loratadine 10 MG TABLET PO (08:51)
[2023-06-23] MEDS: 0.9 % Sodium Chloride Flush 3 ML SYRINGE IVFLUSH ×3 (08:53→20:56)
[2023-06-23 10:20] LABS: Estimated Average Glucose 117 mg/dL; Hemoglobin A1c % 5.7 % (<6.0)
--- NOTE | 2023-06-23 10:32 | HO.ADDICT_ITS ---
History of Present Illness Date of Service: 06/23/2023 Chief Complaint: Fall at home with multiple rib fractures, intracta Sources of Information: patient interviewed and chart reviewed Additional Sources of Information: Patient is a 72 year old male with OUD, currently prescribed suboxone. Admitted to [facility] – [place] following a fall at home with multiple rib fractures. Consult requested as patient reporting worsening pain and declining suboxone dose while inpatient. Patient seen briefly this morning as he minimally engaged, closed his eyes when this mortgage underwriter entered the room, and used his hands to answer questions. Discussed pain, patient moved his hands back and forth as to say so,so . Asked if he would be interested in increasing suboxone dose or increasing frequency of medication administration, as this can be helpful with pain--patient moved his finger back and forth to say no. Asked if he was concerned about pain, or wnated to discuss his pain management, he moved his finger back and forth to say no. Interview ended Review of Systems Review of Systems Yes Other (patient not engaged) Diagnostics Vital Signs (24Hr): Vital Signs - 24 hr 06/22/23 13:14 06/22/23 15:39 06/22/23 16:59 Temperature 98.1 F Pulse Rate 76 Respiratory Rate 16 18 16 Blood Pressure 162/90 H Pulse Oximetry 94 Oxygen Delivery Method Room Air 06/22/23 19:22 06/22/23 19:27 06/23/23 04:00 Temperature 97.4 F 98.9 F Pulse Rate 64 68 77 Respiratory Rate 17 18 20 Blood Pressure 139/70 142/93 H Pulse Oximetry 96 96 Oxygen Delivery Method Room Air Room Air 06/23/23 07:34 06/23/23 08:03 Temperature 98.1 F Pulse Rate 76 76 Respiratory Rate 20 16 Blood Pressure 130/80 Pulse Oximetry 94 Oxygen Delivery Method Room Air BMI result Body Mass Index 25.9 Labs 06/20/23 09:43 06/20/23 09:43 Labs: Laboratory Results - last 48 hr 06/21/23 06/21/23 06/21/23 14:17 18:35 21:45 Hold Purple Top POC Glucose 239 H 146 H 255 H Estimat Average Glucose Hemoglobin A1c % Hold Red Top 06/22/23 06/22/23 06/22/23 07:16 11:09 16:28 Hold Purple Top POC Glucose 113 184 H 235 H Estimat Average Glucose Hemoglobin A1c % Hold Red Top 06/22/23 06/23/23 06/23/23 19:36 07:36 09:06 Hold Purple Top SEE NOTE POC Glucose 197 H 134 H Estimat Average Glucose 117 Hemoglobin A1c % 5.7 Hold Red Top See Note Imaging Radiology Impressions: ITS Impressions Cervical Spine CT 06/20/23 10:19 IMPRESSION: CT HEAD: No acute intracranial abnormality. Areas of chronic encephalomalacia and gliosis are seen in the bilateral frontal lobes and right temporal lobe. 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 CT CERVICAL SPINE: Significantly motion degraded exam. Grossly, no cervical spine fracture or traumatic malalignment identified. Chest CT 06/20/23 10:19 IMPRESSION: Multiple acute nondisplaced rib fractures involving the anterior segments of the left fourth, fifth, and sixth ribs and the posterior segments of the left fifth and sixth ribs. Additional nondisplaced subacute fractures of the anterior left sixth and seventh ribs. All fractures appear new compared to CT chest 02/01/2023. Please correlate for history of multiple injuries. Small simple density left pleural effusion. No pneumothorax. Fleischner guidelines were followed. Head CT 06/20/23 10:19 IMPRESSION: CT HEAD: No acute intracranial abnormality. Areas of chronic encephalomalacia and gliosis are seen in the bilateral frontal lobes and right temporal lobe. 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 CT CERVICAL SPINE: Significantly motion degraded exam. Grossly, no cervical spine fracture or traumatic malalignment identified. Mental Status Exam Mental Status Exam Level of Consciousness: Awake Patient Behavior: Guarded Medications Medications Current Medications Acetaminophen (Acetaminophen 325 Mg Tablet) 650 mg PO Q8H PRN PRN Reason: pain Albuterol/Ipratropium (Albuterol/Iprat 2.5/0.5mg 3 Ml Ampul.Neb) 3 ml INHALE RQ4H WHILE AWAKE PRN PRN Reason: Shortness of Breath/Wheezing Amlodipine Besylate (Amlodipine Besylate 10 Mg Tablet) 10 mg PO DAILY [facility]; Protocol Last Admin: 06/23/23 08:51 Dose: 10 mg Atorvastatin Calcium (Atorvastatin Calcium 40 Mg Tablet) 40 mg PO BEDTIME [facility] Last Admin: 06/22/23 21:15 Dose: 40 mg Benzonatate (Benzonatate 100 Mg Capsule) 100 mg PO TID PRN PRN Reason: Cough Buprenorphine/Naloxone (Buprenorphine/Naloxone 8/2 Mg Film) 1 film SUBLINGUAL BID [facility] Last Admin: 06/23/23 08:50 Dose: 1 film Dextrose (Dextrose 50 % 25 Gm/50 Ml Syringe) 25 gm IVPUSH Q15M PRN; Protocol PRN Reason: per Hypoglycemia Standing Ord. Docusate Sodium (Docusate Sodium 100 Mg Capsule) 100 mg PO DAILY PRN PRN Reason: Constipation Last Admin: 06/22/23 09:13 Dose: 100 mg Dorzolamide/Timolol (Dorzolamide/Timolo 2.23%/0.68% 10 Ml Drbtl) 1 drop EYE- LEFT BID [facility] Last Admin: 06/23/23 08:51 Dose: 1 drop Enoxaparin Sodium (Enoxaparin Sodium 40 Mg/0.4 Ml Syringe) 40 mg SUBCUT Q24H [facility] Last Admin: 06/22/23 15:03 Dose: 40 mg Fluticasone Propionate (Fluticasone Propionate 100 Mcg Blst.W.Dev) 1 puff INHALE RBID [facility] Last Admin: 06/23/23 08:01 Dose: 1 puff Glucose (Glucose Gel 15 Gm Gel..Gram.) 15 gm PO Q15M PRN; Protocol PRN Reason: per Hypoglycemia Standing Ord. Insulin Glargine (Insulin Glargine,Hum.Rec.Anlog 100 Unit/Ml 10 Ml Vial) 58 unit SUBCUT BEDTIME [facility] Last Admin: 06/22/23 21:14 Dose: 58 unit Insulin Human Lispro (Insulin Lispro 100 Unit/Ml 3 Ml Vial) 0 unit SUBCUT QIDACHS [facility]; Protocol Last Admin: 06/23/23 08:08 Dose: Not Given Latanoprost (Latanoprost 0.005 % Ophth Yari 2.5 Ml Drops) 1 drop EYE-LEFT BEDTIME [facility] Last Admin: 06/22/23 21:45 Dose: Not Given Lidocaine (Lidocaine 4 % Patch Adh..Patch) 1 patch TRANSDERMA DAILY [facility]; Protocol Last Admin: 06/23/23 08:50 Dose: 1 patch Lisinopril (Lisinopril 40 Mg Tablet) 40 mg PO BID [facility]; Protocol Last Admin: 06/23/23 08:51 Dose: 40 mg Loratadine (Loratadine 10 Mg Tablet) 10 mg PO DAILY [facility] Last Admin: 06/23/23 08:51 Dose: 10 mg Melatonin (Melatonin 3 Mg Tablet) 6 mg PO BEDTIME PRN PRN Reason: Insomnia Metoprolol Succinate (Metoprolol Succinate Er 25 Mg Tab.Er.24h) 25 mg PO DAILY [facility]; Protocol Last Admin: 06/23/23 08:49 Dose: 25 mg Morphine Sulfate (Morphine Sulfate 2 Mg/Ml Cartridge) 4 mg IVPUSH Q4H PRN; Protocol PRN Reason: Pain, Mild (Pain Scale 1-3) Last Admin: 06/22/23 21:13 Dose: 4 mg Multivitamins/Vitamin C (Multivitamin Tablet) 1 tab PO DAILY [facility] Last Admin: 06/23/23 08:51 Dose: 1 tab Olanzapine (Olanzapine 5 Mg Tablet) 5 mg PO BEDTIME [facility] Last Admin: 06/22/23 21:15 Dose: 5 mg Omeprazole (Omeprazole 20 Mg Capsule.Dr) 20 mg PO DAILY@0630 [facility] Last Admin: 06/23/23 06:54 Dose: Not Given Ondansetron HCl (Ondansetron Hcl 4 Mg/2 Ml Vial) 4 mg IVPUSH Q8H PRN PRN Reason: Nausea and Vomiting Oxybutynin Chloride (Oxybutynin Chloride Er 5 Mg Tab.Er.24) 5 mg PO DAILY [facility] Last Admin: 06/23/23 08:50 Dose: 5 mg Oxycodone HCl (Oxycodone Hcl Immed Release 5 Mg Tablet) 10 mg PO Q4H PRN PRN Reason: Pain, Mild (Pain Scale 1-3) Last Admin: 06/22/23 10:58 Dose: 10 mg Polyethylene Glycol (Polyethylene Glycol 3350 17 Gm Powd.Pack) 17 gm PO BID [facility] Last Admin: 06/23/23 08:50 Dose: 17 gm Sodium Chloride (0.9 % Sodium Chloride Flush 3 Ml Syringe) 3 ml IVFLUSH QSHIFT [facility] Last Admin: 06/23/23 08:58 Dose: 3 ml Tamsulosin HCl (Tamsulosin Hcl 0.4 Mg Capsule) 0.4 mg PO BEDTIME [facility] Last Admin: 06/22/23 21:16 Dose: 0.4 mg Trazodone HCl (Trazodone Hcl 100 Mg Tablet) 100 mg PO BEDTIME [facility] Last Admin: 06/22/23 21:15 Dose: 100 mg Allergies Allergies Allergy/AdvReac Type Severity Reaction Status Date / Time No Known Allergies Allergy Verified 06/20/23 08:44 Assessment & Plan Assessment & Plan (1) Opioid use disorder: Status: Acute Code(s): F11.90 - Opioid use, unspecified, uncomplicated Assessment and Plan: * patient declined intervention * no follow up indicated at this time Total time managing care of this patient today _15___ minutes. PMFSH Past Medical History Medical History Left against medical advice Post-traumatic arthritis of left ankle History of fracture of left ankle COPD (chronic obstructive pulmonary disease) Opioid dependence Hypertension Prepatellar bursitis, left knee CAD (coronary artery disease) Diabetes mellitus JAUN (obstructive sleep apnea) COPD (chronic obstructive pulmonary disease) Genital herpes Opioid dependence on agonist therapy Anxiety History of adenomatous polyp of colon Chronic constipation GERD (gastroesophageal reflux disease) Pancreatic abnormality Hypertension Family History Family History Mother No problems noted. Father Liver cancer Surgical History Surgical History S/P hardware removal History of ankle surgery Social History Social History Household Members: Spouse Housing: Apartment Do you presently have visiting nurse or other home services: Yes Unable to assess alcohol history related to: Unknown Alcohol intake: never Patient Tobacco Use Status: Former Tobacco user Tobacco use type: Cigarette Cigarettes Per Day: 4 e-Cigarette/Vaping Use: Currently Using Second Hand Smoke Exposure: No Substance Use Type: Heroin Advance Directives Date on File: 01/28/22 service: No Current occupational status: retired and disabled Current occupation: right handed
[2023-06-23 11:06] LABS: Glucose, Whole Blood 181 mg/dL (60-115)
[2023-06-23] MEDS: Insulin Lispro 100 UNIT/ML 3 ML VIAL SUBCUT ×3 (11:51→20:53)
[2023-06-23] MEDS: Morphine Sulfate 2 MG/ML CARTRIDGE 4 MG IVPUSH ×3 (11:51→20:51)
--- NOTE | 2023-06-23 13:45 | P.PNIM_ITS ---
Subjective Subjective Date of Service: 06/23/23 Interval History: c/o L chest pain Review of Systems Review of Systems: Yes all other systems are reviewed and are negative Physical Exam 2 Vital Signs: Vital Signs: Last Vital Signs Temp 98.1 F 06/23/23 07:34 Pulse 76 06/23/23 08:03 Resp 16 06/23/23 11:51 BP 130/80 06/23/23 07:34 Pulse Ox 94 06/23/23 07:34 O2 Del Method Room Air 06/23/23 07:34 O2 Flow Rate 1 06/22/23 07:17 Oxygen Flow Rate 1 06/20/23 08:42 BMI result Body Mass Index 25.9 Gen: in no acute distress HEENT: sclera anicteric, moist mucus membranes Neck: supple Lungs: clear to auscultation bilaterally, L lateral chest wall tenderness Heart: regular rate and rhythm, no murmurs Abd: soft, non-tender, non-distended Ext: no edema Skin: warm/well-perfused Neuro: alert and oriented x3, no focal findings Psych: appropriate affect Objective Data Active Medications Acetaminophen (Acetaminophen 325 Mg Tablet) 650 mg PO Q8H PRN PRN Reason: pain Albuterol/Ipratropium (Albuterol/Iprat 2.5/0.5mg 3 Ml Ampul.Neb) 3 ml INHALE RQ4H WHILE AWAKE PRN PRN Reason: Shortness of Breath/Wheezing Amlodipine Besylate (Amlodipine Besylate 10 Mg Tablet) 10 mg PO DAILY [facility]; Protocol Last Admin: 06/23/23 08:51 Dose: 10 mg Documented By: VALENTINA Atorvastatin Calcium (Atorvastatin Calcium 40 Mg Tablet) 40 mg PO BEDTIME [facility] Last Admin: 06/22/23 21:15 Dose: 40 mg Documented By: LITZY Benzonatate (Benzonatate 100 Mg Capsule) 100 mg PO TID PRN PRN Reason: Cough Buprenorphine/Naloxone (Buprenorphine/Naloxone 8/2 Mg Film) 1 film SUBLINGUAL BID [facility] Last Admin: 06/23/23 08:50 Dose: 1 film Documented By: VALENTINA Dextrose (Dextrose 50 % 25 Gm/50 Ml Syringe) 25 gm IVPUSH Q15M PRN; Protocol PRN Reason: per Hypoglycemia Standing Ord. Docusate Sodium (Docusate Sodium 100 Mg Capsule) 100 mg PO DAILY PRN PRN Reason: Constipation Last Admin: 06/22/23 09:13 Dose: 100 mg Documented By: VALENTINA Dorzolamide/Timolol (Dorzolamide/Timolo 2.23%/0.68% 10 Ml Drbtl) 1 drop EYE- LEFT BID [facility] Last Admin: 06/23/23 08:51 Dose: 1 drop Documented By: VALENTINA Enoxaparin Sodium (Enoxaparin Sodium 40 Mg/0.4 Ml Syringe) 40 mg SUBCUT Q24H [facility] Last Admin: 06/22/23 15:03 Dose: 40 mg Documented By: VALENTINA Fluticasone Propionate (Fluticasone Propionate 100 Mcg Blst.W.Dev) 1 puff INHALE RBID [facility] Last Admin: 06/23/23 08:01 Dose: 1 puff Documented By: CATE Glucose (Glucose Gel 15 Gm Gel..Gram.) 15 gm PO Q15M PRN; Protocol PRN Reason: per Hypoglycemia Standing Ord. Insulin Glargine (Insulin Glargine,Hum.Rec.Anlog 100 Unit/Ml 10 Ml Vial) 58 unit SUBCUT BEDTIME [facility] Last Admin: 06/22/23 21:14 Dose: 58 unit Documented By: LITZY Insulin Human Lispro (Insulin Lispro 100 Unit/Ml 3 Ml Vial) 0 unit SUBCUT QIDACHS [facility]; Protocol Last Admin: 06/23/23 11:51 Dose: 2 unit Documented By: VALENTINA Latanoprost (Latanoprost 0.005 % Ophth Yari 2.5 Ml Drops) 1 drop EYE-LEFT BEDTIME [facility] Last Admin: 06/22/23 21:45 Dose: Not Given Documented By: LITZY Non-Admin Reason: Patient Asleep Lidocaine (Lidocaine 4 % Patch Adh..Patch) 1 patch TRANSDERMA DAILY [facility]; Protocol Last Admin: 06/23/23 08:50 Dose: 1 patch Documented By: VALENTINA Lisinopril (Lisinopril 40 Mg Tablet) 40 mg PO BID [facility]; Protocol Last Admin: 06/23/23 08:51 Dose: 40 mg Documented By: VALENTINA Loratadine (Loratadine 10 Mg Tablet) 10 mg PO DAILY [facility] Last Admin: 06/23/23 08:51 Dose: 10 mg Documented By: VALENTINA Melatonin (Melatonin 3 Mg Tablet) 6 mg PO BEDTIME PRN PRN Reason: Insomnia Metoprolol Succinate (Metoprolol Succinate Er 25 Mg Tab.Er.24h) 25 mg PO DAILY [facility]; Protocol Last Admin: 06/23/23 08:49 Dose: 25 mg Documented By: VALENTINA Morphine Sulfate (Morphine Sulfate 2 Mg/Ml Cartridge) 4 mg IVPUSH Q4H PRN; Protocol PRN Reason: Pain, Mild (Pain Scale 1-3) Last Admin: 06/23/23 11:51 Dose: 4 mg Documented By: VALENTINA Multivitamins/Vitamin C (Multivitamin Tablet) 1 tab PO DAILY [facility] Last Admin: 06/23/23 08:51 Dose: 1 tab Documented By: VALENTINA Olanzapine (Olanzapine 5 Mg Tablet) 5 mg PO BEDTIME [facility] Last Admin: 06/22/23 21:15 Dose: 5 mg Documented By: LITZY Omeprazole (Omeprazole 20 Mg Capsule.Dr) 20 mg PO DAILY@0630 [facility] Last Admin: 06/23/23 06:54 Dose: Not Given Documented By: LITZY Non-Admin Reason: Patient Asleep Ondansetron HCl (Ondansetron Hcl 4 Mg/2 Ml Vial) 4 mg IVPUSH Q8H PRN PRN Reason: Nausea and Vomiting Oxybutynin Chloride (Oxybutynin Chloride Er 5 Mg Tab.Er.24) 5 mg PO DAILY [facility] Last Admin: 06/23/23 08:50 Dose: 5 mg Documented By: VALENTINA Oxycodone HCl (Oxycodone Hcl Immed Release 5 Mg Tablet) 10 mg PO Q4H PRN PRN Reason: Pain, Mild (Pain Scale 1-3) Last Admin: 06/22/23 10:58 Dose: 10 mg Documented By: VALENTINA Polyethylene Glycol (Polyethylene Glycol 3350 17 Gm Powd.Pack) 17 gm PO BID [facility] Last Admin: 06/23/23 08:50 Dose: 17 gm Documented By: VALENTINA Sodium Chloride (0.9 % Sodium Chloride Flush 3 Ml Syringe) 3 ml IVFLUSH QSHIFT [facility] Last Admin: 06/23/23 08:53 Dose: 3 ml Documented By: VALENTINA Tamsulosin HCl (Tamsulosin Hcl 0.4 Mg Capsule) 0.4 mg PO BEDTIME [facility] Last Admin: 06/22/23 21:16 Dose: 0.4 mg Documented By: LITZY Trazodone HCl (Trazodone Hcl 100 Mg Tablet) 100 mg PO BEDTIME [facility] Last Admin: 06/22/23 21:15 Dose: 100 mg Documented By: LITZY Labs 06/20/23 09:43 06/20/23 09:43 Labs: Laboratory Results - last 24 hr 06/22/23 06/22/23 06/23/23 16:28 19:36 07:36 Hold Purple Top POC Glucose 235 H 197 H 134 H Estimat Average Glucose Hemoglobin A1c % Hold Red Top 06/23/23 06/23/23 09:06 10:55 Hold Purple Top SEE NOTE POC Glucose 181 H Estimat Average Glucose 117 Hemoglobin A1c % 5.7 Hold Red Top See Note Assessment and Plan (1) Multiple fractures of ribs: Status: Acute Plan d4 72yo M with DM2, HTN, HLD, BPH, 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, OUD on Suboxone presenting after fall with back + L chest pain, admitted for intractable pain due to multiple rib fractures multiple left rib fractures [4th-6th] due to mechanical fall - continue IV morphine, PO oxycodone, lidocaine patch, IS frequent falls - PT consulted, STR recommended DM2 with hyperglycemia - actually well-controlled with A1c 5.7, continue art-dose lispro + Lantus HTN - continue amlodipine, lisionpril, metoprolol succinate HLD - continue statin GERD - continue PPI OUD - contiunue Suboxone BPH - continue tamsulosin mood disorder - continue olanzapine, trazodone VTE ppx - LMWH dispo - STR In my clinical judgment, the patient requires continued inpatient hospitalization for the following reasons: pain control Time Spent With Patient Time: Total time managing care of this patient today __35__ minutes. Quality Stroke Does the patient have a stroke diagnosis?: No VTE Prior VTE?: No VTE Risk Level:: Medical - moderate - high VTE Device Contraindication: Treatment Not Indicated VTE Drug Contraindication: N/A - Med Ordered
--- NOTE | 2023-06-23 13:55 | MHC.CM.PN ---
EMR reviewed and per MD rounds, pt is not medically cleared for D/C at this time, but will likely be ready for D/C tomorrow. This CM met with pt to discuss PT recommendations for STR. Pt agreeable to go to STR, has no preference and would like to stay in/near the [facility]. Broad referral placed to local STRs via [facility]. CM will continue to follow.
[2023-06-23 16:52] LABS: Glucose, Whole Blood 162 mg/dL (60-115)
[2023-06-23] MEDS: Enoxaparin Sodium 40 MG/0.4 ML SYRINGE SUBCUT (17:05)
[2023-06-23 19:29] LABS: Amphetamine Screen Urine Not Detected (Not Detect); Barbiturates, Urine Not Detected (Not Detect); Benzodiazepines Screen Urine Not Detected (Not Detect); Cannabinoid Screen Urine Not Detected (Not Detect); Cocaine Screen Urine Not Detected (Not Detect); Fentanyl, urine POSITIVE (Not Detect); Opiate Screen Urine POSITIVE (Not Detect); Phencyclidine Screen Urine Not Detected (Not Detect)
[2023-06-23 20:00] LABS: Troponin-I High Sensitivity < 2.7 ng/L (<3.5-35.0)
[2023-06-23 20:37] LABS: Glucose, Whole Blood 213 mg/dL (60-115)
[2023-06-23] MEDS: traZODone HCL 100 MG TABLET PO (20:46)
[2023-06-23] MEDS: Tamsulosin HCL 0.4 MG CAPSULE PO (20:46)
[2023-06-23] MEDS: Atorvastatin Calcium 40 MG TABLET PO (20:46)
[2023-06-23] MEDS: OLANZapine 5 MG TABLET PO (20:47)
[2023-06-23] MEDS: Insulin Glargine,Hum.rec.anlog 100 UNIT/ML 10 ML VIAL 58 UNIT SUBCUT (20:53)
[2023-06-23] MEDS: Latanoprost 0.005 % Ophth Sol 2.5 ML DROPS 1 DROP EYE-LEFT (20:56)
[2023-06-24 03:29] VITALS: BP 136/73; PULSE 71; RESP 20; TEMP 36.6; O2SAT 93
[2023-06-24] MEDS: Fluticasone Propionate 100 MCG BLST.W.DEV 1 PUFF INHALE (07:55)
[2023-06-24 07:56] VITALS: PULSE 84; RESP 16; O2SAT 96
[2023-06-24 07:58] LABS: Glucose, Whole Blood 122 mg/dL (60-115)
[2023-06-24 08:00] VITALS: BP 142/81; PULSE 72; RESP 16; TEMP 36.9; O2SAT 96
--- NOTE | 2023-06-24 08:26 | MHC.CM.PN ---
This CM checked SNF referral and there are no STR bed offers. This CM met with pt to discuss expanding the bed search due to no bed offers. Pt stated that's good, because I'm not interested. This CM clarified that pt would like to go home with VNA services. Pt is active with [facility].
[2023-06-24] MEDS: Omeprazole 20 MG CAPSULE.DR PO (08:56)
[2023-06-24] MEDS: amLODIPine Besylate 10 MG TABLET PO (08:56)
[2023-06-24] MEDS: Buprenorphine/Naloxone 8/2 mg FILM 1 FILM SUBLINGUAL (08:56)
[2023-06-24] MEDS: Morphine Sulfate 2 MG/ML CARTRIDGE 4 MG IVPUSH ×2 (08:56→13:03)
[2023-06-24] MEDS: 0.9 % Sodium Chloride Flush 3 ML SYRINGE IVFLUSH (09:54)
[2023-06-24 10:08] LABS: Troponin-I High Sensitivity < 2.7 ng/L (<3.5-35.0)
[2023-06-24] MEDS: lisinopriL 40 MG TABLET PO (10:56)
[2023-06-24] MEDS: polyethylene glycoL 3350 17 GM POWD.PACK PO (10:56)
[2023-06-24] MEDS: Lidocaine 4 % Patch ADH..PATCH 1 PATCH TRANSDERMA (10:57)
[2023-06-24] MEDS: Metoprolol Succinate ER 25 MG TAB.ER.24H PO (10:57)
[2023-06-24] MEDS: Multivitamin TABLET 1 TAB PO (10:57)
[2023-06-24] MEDS: Loratadine 10 MG TABLET PO (10:57)
[2023-06-24] MEDS: oxyBUTYnin chloride ER 5 MG TAB.ER.24 PO (11:05)
--- NOTE | 2023-06-24 11:40 | P.F2F_ITS ---
Service Date Service Date: 06/24/23 Encounter Date of encounter: 06/24/23 Reasons for Services Signs and symptoms assessed: impaired functional mobility Reason for physical therapy: home safety and mobility, therapeutic exercises, gait/transfer training, assess need for DME, ADL training and energy conservation MD Overseeing Care: Jax Moe Homebound: Leaving the home is medically contraindicated at this time without the asist of a device and/or another person due th the listed conditions above and below. Reason homebound: unsteady gait / fall risk and pain with transfers Certification: Based on the above findings, I certify that this patient is confined to the home and needs intermittent care home care, physical therapy and/or speech therapy, or continues to need occupational therapy. The patient is under my care, and I have initiated the establishment of the plan of care. The patient will be followed by a physician who will periodically review the plan of care. Time Spent With Patient Time: Total time managing care of this patient today ____ minutes.
[2023-06-24 12:00] LABS: Glucose, Whole Blood 173 mg/dL (60-115)
--- NOTE | 2023-06-24 12:30 | PM.DS ---
DS: Providers Provider Date of Service: 06/24/23 Date of admission: 06/20/23 14:00 Date of discharge: 06/24/23 Primary care physician: Jax Moe MD Consults: 06/22/23 12:51 Addiction Medicine Routine Consulting Provider: Addiction Covering Reason for consultation: on subxone , pain managemnt issue /has rib fractures Has provider been notified: No DS: Diagnosis Discharge Diagnosis (1) Multiple fractures of ribs: Status: Acute (2) Impaired mobility: Status: Acute DS: Summary Hospital Course Hospital Course: from admission history and physical by hospitalist CLEMENCIA Gomes, 06/20/23: Pt is a 72-year-old male with a PMH significant for?insulin-dependent diabetes type 2, HTN, HLD, BPH, 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 Pt states that yesterday he experienced a mechanical fall at home, tripping over a rug in his hallway and falling backwards on the floor. Denies headstrike or LOC. Denies hitting any object other than the floor. Pt has since been experiencing severe back and anterior left-sided chest wall pain, worse with movement or deep inspiration. Denies lightheadedness or dizziness denies recent drug use. No alcohol use. Occasionally smokes a cigarette or 2. Patient with history of left bimalleolar fracture with subsequent MS as a infection and removal of hardware due to medical noncompliance, chronically with walking boot on his left foot. Patient states he has very limited mobility at baseline, occasionally ambulates with the use of a cane though otherwise will use a wheelchair. Also has ambulatory assistance from his partner whom he lives with. Patient admits to falling approximately 6 weeks ago when he tripped and in his basement and fell on the concrete floor. He did not seek medical assistance at that time. Patient with limited means of getting to and from the hospital. Denies fever, chills, nausea, vomiting, abdominal pain. In the ED patient was afebrile hypertensive to 178/88, satting at 95% O2 on 2 L NC. Labs were grossly unremarkable. Stable normocytic anemia with H&H 11.2/33.4. Electrolytes WNL. Hepatic and renal function WNL. Troponin 4.9. BNP 72. CT?of head with no acute intracranial abnormality but areas of chronic encephalomalacia and gliosis with moderate to severe chronic microangiopathy. CT of cervical spine with motion degradation, but grossly no cervical spine fracture or traumatic malalignment. CT of chest found multiple acute nondisplaced rib fractures involving the anterior segments of the left 4th, 5th, and 6th ribs and the posterior segments of the left 5th and 6th ribs. Also showed nondisplaced sub acute fractures of the anterior left 6th and 7th ribs. All fractures appear new compared to CT of chest 4 months prior on 02/01/2023. EKG demonstrated sinus rhythm with frequent PVCs and no evidence of ST elevations or depressions. Pt was treated with hydromorphone and lidocaine patch. Pt will be admitted to the hospital for treatment further evaluation intractable pain secondary to multiple acute rib fractures from recent fall at home. 72yo M with DM2, HTN, HLD, BPH, 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, and OUD on Suboxone who presented after a mechanical fall with back + left-sided chest pain. He was admitted to the hospitalist service for intractable pain due to multiple rib fractures. He was treated with IV morphine, PO oxycodone, and lidocaine patch. Pulmonary toilet was encouraged. PT was consulted, and short-term rehabilitation was recommended; however, the patient declined. The patient also did not wish to engage with the Addiction Medicine fundraising consultant regarding pain management. He was discharged home with VNA/PT services. Time Spent with Patient Time attestation: Total time managing care of this patient today __35__ minutes. Discharge coordination time: Greater than 30 minutes Quality: Safe Use of Opioids Does Pt have an Active Cancer Diagnosis on the Problem List?: No Quality: Stroke Does the patient have a stroke diagnosis?: No Physical Exam Vital Signs: Vital Signs: Last Vital Signs Temp 98.4 F 06/24/23 08:00 Pulse 72 06/24/23 08:00 Resp 16 06/24/23 08:00 BP 142/81 H 06/24/23 08:00 Pulse Ox 96 06/24/23 08:00 O2 Del Method Room Air 06/24/23 08:00 O2 Flow Rate 1 06/22/23 07:17 Oxygen Flow Rate 1 06/20/23 08:42 BMI result Body Mass Index 25.9 Gen: in no acute distress HEENT: sclera anicteric, moist mucus membranes Neck: supple Lungs: clear to auscultation bilaterally, L lateral chest wall tenderness Heart: regular rate and rhythm, no murmurs Abd: soft, non-tender, non-distended Ext: no edema Skin: warm/well-perfused Neuro: alert and oriented x3, no focal findings Psych: appropriate affect DS: Data Data Completed and Pending Completed studies during hospitalization [Text1]: Laboratory Results WBC 9.2 X10*3/uL (4.8-10.8) 06/20/23 09:43 RBC 3.87 X10*6/uL (4.60-5.80) L 06/20/23 09:43 Hgb 11.2 g/dl (14.0-18.0) L 06/20/23 09:43 Hct 33.4 % (42.0-52.0) L 06/20/23 09:43 MCV 86.3 fL (80.0-98.0) 06/20/23 09:43 MCH 28.9 pg (27.0-33.0) 06/20/23 09:43 MCHC 33.5 g/dl (31.0-36.0) 06/20/23 09:43 RDW 13.0 % (11.0-16.0) 06/20/23 09:43 Plt Count 343 X10*3/uL (160-400) 06/20/23 09:43 MPV 8.8 fL (9.4-12.4) L 06/20/23 09:43 Immature Gran % (Auto) 0.4 % (0.0-0.4) 06/20/23 09:43 Neut % (Auto) 76.1 % (45-73) H 06/20/23 09:43 Lymph % (Auto) 15.1 % (20-40) L 06/20/23 09:43 [place] % (Auto) 7.2 % (2-11) 06/20/23 09:43 Eos % (Auto) 1.0 % (0-4) 06/20/23 09:43 Baso % (Auto) 0.2 % (0-2) 06/20/23 09:43 Lymph # (Auto) 1.4 X10*3/uL (1.2-4.9) 06/20/23 09:43 [place] # (Auto) 0.7 X10*3/uL (0.1-1.2) 06/20/23 09:43 Eos # (Auto) 0.1 X10*3/uL (0.0-0.4) 06/20/23 09:43 Baso # (Auto) 0.0 X10*3/uL (0.0-0.2) 06/20/23 09:43 Abs Immat Gran (auto) 0.04 X10*3/uL (0.00-0.03) H 06/20/23 09:43 Absolute Neuts (auto) 7.0 x10*3/uL (2.0-8.3) 06/20/23 09:43 Absolute Nucleated RBC 0.000 X10*3/uL (0.0-0.012) 06/20/23 09:43 Nucleated RBC % (auto) 0.0 /100WBC (0.0-0.2) 06/20/23 09:43 Hold Purple Top SEE NOTE 06/23/23 09:06 PT 11.8 SEC (11.1-13.3) 06/20/23 09:43 INR 1.0 (0.9-1.1) 06/20/23 09:43 Sodium 138 mmol/L (135-145) 06/20/23 09:43 Potassium 3.9 mmol/L (3.3-5.1) 06/20/23 09:43 Chloride 99 mmol/L (96-108) 06/20/23 09:43 Carbon Dioxide 27 mmol/L (22-29) 06/20/23 09:43 Anion Gap 16 (12-20) 06/20/23 09:43 BUN 16 mg/dL (9-16) 06/20/23 09:43 Creatinine 0.83 mg/dL (0.5-1.4) 06/20/23 09:43 Estim Creat Clear Calc 85.7 06/20/23 09:43 Estimated GFR > 60 06/20/23 09:43 POC Glucose 173 mg/dL (60-115) H 06/24/23 11:26 Random Glucose 196 mg/dL (60-115) H 06/20/23 09:43 Estimat Average Glucose 117 mg/dL 06/23/23 09:06 Hemoglobin A1c % 5.7 % (<6.0) 06/23/23 09:06 Calcium 10.1 mg/dL (8.4-10.2) 06/20/23 09:43 Total Creatine Kinase 292 U/L (38-174) H 06/20/23 09:43 Troponin I High Sens < 2.7 ng/L (<3.5-35.0) 06/24/23 09:15 B-Natriuretic Peptide 72 pg/mL (<100) 06/20/23 09:43 Hold Red Top See Note 06/23/23 09:06 Hold Yellow Top See Note 06/23/23 19:27 Urine Opiates Screen POSITIVE (Not Detect) H 06/23/23 19:00 Urine Fentanyl Screen POSITIVE (Not Detect) H 06/23/23 19:00 Ur Barbiturates Screen Not Detected (Not Detect) 06/23/23 19:00 Ur Phencyclidine Scrn Not Detected (Not Detect) 06/23/23 19:00 Ur Amphetamines Screen Not Detected (Not Detect) 06/23/23 19:00 U Benzodiazepines Scrn Not Detected (Not Detect) 06/23/23 19:00 Urine Cocaine Screen Not Detected (Not Detect) 06/23/23 19:00 U Marijuana (THC) Screen Not Detected (Not Detect) 06/23/23 19:[address] 06/20/23 10:19 IMPRESSION: CT HEAD: No acute intracranial abnormality. Areas of chronic encephalomalacia and gliosis are seen in the bilateral frontal lobes and right temporal lobe. 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 CT CERVICAL SPINE: Significantly motion degraded exam. Grossly, no cervical spine fracture or traumatic malalignment identified. Chest CT 06/20/23 10:19 IMPRESSION: Multiple acute nondisplaced rib fractures involving the anterior segments of the left fourth, fifth, and sixth ribs and the posterior segments of the left fifth and sixth ribs. Additional nondisplaced subacute fractures of the anterior left sixth and seventh ribs. All fractures appear new compared to CT chest 02/01/2023. Please correlate for history of multiple injuries. Small simple density left pleural effusion. No pneumothorax. Fleischner guidelines were followed. Head CT 06/20/23 10:19 IMPRESSION: CT HEAD: No acute intracranial abnormality. Areas of chronic encephalomalacia and gliosis are seen in the bilateral frontal lobes and right temporal lobe. 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 CT CERVICAL SPINE: Significantly motion degraded exam. Grossly, no cervical spine fracture or traumatic malalignment identified. Discharge Plan Discharge Anticipated Discharge Date/Time: 06/24/23 11:34 Patient Disposition: Home Health Service Discharge Diagnosis: multiple rib fractures Referrals: Jax Moe MD [Primary Care Provider] - 1 Week Discharge Medications: New lidocaine [Lidocaine Pain Relief] 4 % Adhesive Patch,Medicated 1 patch transdermal DAILY Qty: 30 0RF Protocol: Apply to: Apply to: affcetd area oxycodone 5 mg Tablet 5 mg PO Q6H PRN (Reason: Pain, Mild (Pain Scale 1-3)) Qty: 12 0RF Rx Instructions: Partial Fill upon patient request. Continued atorvastatin 40 mg tablet 40 mg PO BEDTIME olanzapine 5 mg tablet 5 mg PO BEDTIME glipizide 5 mg tablet extended release 24hr 5 mg PO DAILY acetaminophen 500 mg tablet 1,000 mg PO Q8H PRN (Reason: pain) trazodone 100 mg tablet 100 mg PO BEDTIME Rx Instructions: TAKE WITH 150MG; TDD 250MG amlodipine 10 mg tablet 10 mg PO DAILY trazodone 150 mg tablet 150 mg PO BEDTIME Rx Instructions: TAKE WITH 100MG; TDD 250MG metformin 1,000 mg tablet 1,000 mg PO BID oxybutynin chloride 5 mg tablet extended release 24hr 5 mg PO DAILY omeprazole 20 mg capsule,delayed release(DR/EC) 20 mg PO DAILY@0630 dorzolamide-timolol 22.3-6.8 mg/mL drops 1 drp ophthalmic-Left BID metoprolol succinate 25 mg tablet extended release 24 hr 25 mg PO DAILY lisinopril 40 mg tablet 40 mg PO BID loratadine 10 mg tablet 10 mg PO DAILY fluticasone propionate [Flovent HFA] 110 mcg/actuation HFA aerosol inhaler 1 puff INHALATION BID Certavite-Antioxidant 18-400 mg-mcg tablet 1 tab PO DAILY buprenorphine-naloxone 8-2 mg film 1 film sublingual BID latanoprost 0.005 % drops 1 drp ophthalmic-Left BEDTIME omega-3 acid ethyl esters 1 gram capsule 1 cap PO TID Levemir U-100 Insulin 100 unit/mL solution 42 unit subcut BID tamsulosin 0.4 mg capsule 0.4 mg PO BEDTIME 90 Days Qty: 90 1RF Discharge Orders: Discharge Order (Routine); Ordered 06/24/23 Ordered By: Monserrat Kay Diet: Advance to usual diet Activity on Discharge: As tolerated Stand Alone Forms: Patient Portal Discharge page Care Plan Goals: pain control Health Concerns: multiple rib fractures impaired mobility Plan of Treatment: home with VNA/home PT [you declined short-term rehabilitation] continue incentive spirometry use lidocaine patch daily take acetaminophen [Tylenol] 650 mg every 6 hours as needed for mild-moderate pain, oxycodone 5 mg every 6 hours as needed for severe pain Please follow up with your primary care doctor within 1 week. Return to the hospital if you experience recurrent or worsening symptoms. Assessment: See Discharge Summary.
[2023-06-24] MEDS: Insulin Lispro 100 UNIT/ML 3 ML VIAL SUBCUT (13:02)
--- NOTE | 2023-06-24 14:13 | MHC.CM.PN ---
Pt is medically cleared for D/C home with resumption of [facility] nursing services ([facility]NA). Pt had his own transport home via family. Second IMM given 06/24, copy sent via certified mail as pt already left the building prior.
== END 2023-06-24 13:30 | disposition home health service (06) | DRG 184 ==
LOC: HO.ED 11:47 → HO.EDOVER 14:12 → HO.IMC 06-21 23:01
PROVIDERS: Internal Medicine; Student in an Organized Health Care Education/Training Program; Admitting Provider Student in an Organized Health Care Education/Training Program; Emergency Provider Emergency Medicine; PCP Internal Medicine; Visit Provider Family Medicine
DX: S22.42XA Multiple fractures of ribs, left side, initial encounter for closed fracture (principal); F11.20 Opioid dependence, uncomplicated; W19.XXXA Unspecified fall, initial encounter; R29.6 Repeated falls; I25.10 Atherosclerotic heart disease of native coronary artery without angina pectoris; I10 Essential (primary) hypertension; E11.65 Type 2 diabetes mellitus with hyperglycemia; N40.0 Benign prostatic hyperplasia without lower urinary tract symptoms; F39 Unspecified mood [affective] disorder; G47.33 Obstructive sleep apnea (adult) (pediatric); Z87.891 Personal history of nicotine dependence; Z91.199 Patient's noncompliance with other medical treatment and regimen due to unspecified reason; Z79.4 Long term (current) use of insulin; Z79.84 Long term (current) use of oral hypoglycemic drugs; Z79.899 Other long term (current) drug therapy
CPT/HCPCS: 36415; 70450; 71250; 72125; 80048; 80307; 82550; 82947; 83036; 83880; 84484; 85025; 85610; 93005; 94640; 97162; 97530; 99222; 99285; J1170; J1650; J2270

== ENCOUNTER → 2023-06-20 14:00 | Outpatient (BNV) | payer OTHER, SELFPAY | PROVIDERS: Admitting Provider Student in an Organized Health Care Education/Training Program; Emergency Provider Emergency Medicine; PCP Internal Medicine; Visit Provider Student in an Organized Health Care Education/Training Program | DX: S22.42XA Multiple fractures of ribs, left side, initial encounter for closed fracture (principal); Z74.09 Other reduced mobility | CPT/HCPCS: 99223; 99231; 99232; 99239; G0180 ==

== ENCOUNTER → 2023-06-20 14:00 | Outpatient (BNV) | payer OTHER, SELFPAY | PROVIDERS: Admitting Provider Student in an Organized Health Care Education/Training Program; Emergency Provider Emergency Medicine; PCP Internal Medicine; Visit Provider Nurse Practitioner Psychiatric/Mental Health | DX: F11.90 Opioid use, unspecified, uncomplicated (principal) | CPT/HCPCS: 99221 ==

== ENCOUNTER 2023-08-18 12:06 | Outpatient (REF) | payer OTHER, SELFPAY | END 2023-08-18 12:07 | disposition home or self-care (01) | LOC: HO.HHCL 12:06 | PROVIDERS: Visit Provider Family Medicine | DX: Z02.83 Encounter for blood-alcohol and blood-drug test (principal); F11.20 Opioid dependence, uncomplicated | CPT/HCPCS: 36415; 80307 ==

== ENCOUNTER 2024-01-05 09:43 | Emergency (ER) | payer OTHER, SELFPAY ==
--- NOTE | ~2024-01-05 | CT_ITS ---
EXAMINATION: CT ABDOMEN AND PELVIS WITH CONTRAST CLINICAL INFORMATION: Abdominal pain COMPARISON: CT abdomen pelvis February 01, 2023 TECHNIQUE: Multidetector volumetric images were obtained from the superior aspect of the liver through the pubic symphysis following administration 85 mL of Omnipaque 350 intravenous contrast. Sagittal and coronal reformatted images were obtained on the technologist's workstation. Oral contrast: No This CT examination was performed using dose optimization techniques as appropriate, variously including the following: *Automated exposure control *Adjustment of mA and/or kV according to patient size (this includes techniques or standardized protocols for targeted exams where dose is matched to indication/reason for exam; i.e. extremities or head) *Use of iterative reconstruction technique DLP: 533 mGy-cm FINDINGS: LUNG BASES: Heart size is mildly enlarged. Trace pericardial effusion. Small hiatal hernia. Lung bases normally aerated. There is no pleural effusion. LIVER, GALLBLADDER, AND BILIARY TREE: . No focal liver lesion. No intrahepatic bile duct dilatation. Right lobe liver measures 15 cm superior-inferior. The gallbladder is unremarkable with no evidence of radiopaque gallstones, gallbladder wall thickening, or obvious pericholecystic inflammatory changes. Extrahepatic CBD measures 9 mm. This is unchanged since 2022. No calcified stone in the bile ducts. PANCREAS: Unremarkable. SPLEEN: Unremarkable ADRENAL GLANDS: Stable bilateral adrenal masses. These are unchanged since CT December 14, 2014 consistent with benign lesions. These are benign adrenal adenomas. No further follow-up recommended. KIDNEYS AND URETERS: The kidneys are normal in size, shape, and attenuation. No hydronephrosis, hydroureter, or calculi seen. No perinephric stranding. Stable Bosniak class I cyst upper pole cortex left kidney. No further follow-up imaging recommended. BLADDER: Unremarkable. GASTROINTESTINAL TRACT: There are scattered diverticula of the descending and sigmoid colon. There is no diverticulitis. There is no bowel wall thickening /edema. There is no bowel obstruction. There is a small to moderate volume of stool in the colon. The appendix is nonvisualized . The small bowel loops are unremarkable. The stomach is normal. There is small hiatal hernia. ABDOMINAL WALL: No significant hernia is appreciated. LYMPH NODES: Normal. VASCULAR: Unremarkable. PELVIC VISCERA: Prostate measures 4.3 cm transverse. OSSEOUS STRUCTURES: There is compression deformity of the L1 vertebrae with about 50% loss of height of the vertebral body. This is new since CT scan February 01, 2023. Degenerative spondylosis of lumbar spine. CT/CT abdomen pelvis w IV con IMPRESSION: 1. Compression deformity of the L1 vertebrae new since CT scan February 01, 2023. 2. Diverticulosis of colon. No acute abnormality of the bowel. 3. Stable bilateral adrenal masses consistent with benign adrenal adenomas. No further follow-up recommended. 4. Cardiomegaly. Trace pericardial effusion. Fleischner guidelines were followed.
--- NOTE | 2024-01-05 09:50 | ED_ITS ---
HPI - General Adult General Chief complaint: Urogenital-Male Stated complaint: RT FLANK PAIN Time Seen by Provider: 01/05/24 09:50 Related Data Home Medications ?Medication ?Instructions ?Recorded ?Confirmed acetaminophen 500 mg tablet 1,000 mg PO Q8H PRN pain 02/01/23 06/20/23 amlodipine 10 mg tablet 10 mg PO DAILY 02/01/23 06/20/23 atorvastatin 40 mg tablet 40 mg PO BEDTIME 02/01/23 06/20/23 buprenorphine 8 mg-naloxone 2 mg 1 film sublingual BID 02/01/23 06/20/23 sublingual film dorzolamide 22.3 mg-timolol 6.8 1 drp ophthalmic-Left BID 02/01/23 06/20/23 mg/mL eye drops fluticasone propionate 110 1 puff inhalation BID 02/01/23 06/20/23 mcg/actuation HFA aerosol inhaler (Flovent HFA) glipizide 5 mg tablet, extended 5 mg PO DAILY 02/01/23 06/20/23 release 24 hr lisinopril 40 mg tablet 40 mg PO BID 02/01/23 06/20/23 loratadine 10 mg tablet 10 mg PO DAILY 02/01/23 06/20/23 metformin 1,000 mg tablet 1,000 mg PO BID 02/01/23 06/20/23 metoprolol succinate 25 mg 25 mg PO DAILY 02/01/23 06/20/23 tablet,extended release 24 hr multivitamin-ferrous 1 tab PO DAILY 02/01/23 06/20/23 fumarate-folic acid 18 mg-400 mcg tablet (Certavite-Antioxidant) olanzapine 5 mg tablet 5 mg PO BEDTIME 02/01/23 06/20/23 omeprazole 20 mg capsule,delayed 20 mg PO DAILY@0630 02/01/23 06/20/23 release oxybutynin chloride 5 mg 5 mg PO DAILY 02/01/23 06/20/23 tablet,extended release 24 hr trazodone 100 mg tablet 100 mg PO BEDTIME 02/01/23 06/20/23 trazodone 150 mg tablet 150 mg PO BEDTIME 02/01/23 06/20/23 insulin detemir U-100 100 unit/mL 42 unit subcut BID 06/20/23 06/20/23 subcutaneous solution (Levemir U-100 Insulin) latanoprost 0.005 % eye drops 1 drp ophthalmic-Left BEDTIME 06/20/23 06/20/23 omega-3 acid ethyl esters 1 gram 1 cap PO TID 06/20/23 06/20/23 capsule Previous Rx's ?Medication ?Instructions ?Recorded tamsulosin 0.4 mg capsule 0.4 mg PO BEDTIME BPH 90 days #90 02/05/23 caps lidocaine 4 % topical patch 1 patch transdermal DAILY #30 ea 06/24/23 (Lidocaine Pain Relief) oxycodone 5 mg tablet 5 mg PO Q6H PRN Pain, Mild (Pain 06/24/23 Scale 1-3) #12 tabs morphine 15 mg immediate release 15 mg PO Q6H PRN pain #10 tabs 01/05/24 tablet Allergies Allergy/AdvReac Type Severity Reaction Status Date / Time No Known Allergies Allergy Verified 01/05/24 10:07 COUNTS INCLUDE 234 BEDS AT THE [facility] Past Medical History Medical History Left against medical advice Post-traumatic arthritis of left ankle History of fracture of left ankle COPD (chronic obstructive pulmonary disease) Opioid dependence Hypertension Prepatellar bursitis, left knee CAD (coronary artery disease) Diabetes mellitus JAUN (obstructive sleep apnea) COPD (chronic obstructive pulmonary disease) Genital herpes Opioid dependence on agonist therapy Anxiety History of adenomatous polyp of colon Chronic constipation GERD (gastroesophageal reflux disease) Pancreatic abnormality Hypertension Surgical History S/P hardware removal History of ankle surgery Family History Family History Mother No problems noted. Father Liver cancer Social History Social History Household Members: Spouse Housing: Apartment Do you presently have visiting nurse or other home services: Yes Unable to assess alcohol history related to: Unknown Alcohol intake: never Comment: pt medicated with po tylenol for pain Patient Tobacco Use Status: Former Tobacco user Tobacco use type: Cigarette Cigarettes Per Day: 4 e-Cigarette/Vaping Use: Currently Using Second Hand Smoke Exposure: No Substance Use Type: Heroin Advance Directives: Yes Advance Directives on File: Yes Advance Directives Date on File: 06/01/22 service: No Current occupational status: retired and disabled Current occupation: right handed Physical Exam ED Vital Signs: Vital Signs - 24 hr 01/05/24 09:54 01/05/24 13:08 01/05/24 16:16 Temperature 98.6 F 99.8 F 99.8 F Pulse Rate 87 82 Respiratory Rate 18 12 Blood Pressure 166/85 H 184/89 H Pulse Oximetry 93 96 Oxygen Delivery Method Room Air Room Air BMI result Body Mass Index 30.5 Const Other: The patient is a 73-year-old male who initially seemed fairly awake and alert but later seemed strangely fatigued. He did not seem in obvious distress or obvious pain. HENMT Other: No facial asymmetry. Mucous membranes moist. Eyes Other: Pupils are round equal, conjunctivae are clear, extraocular movements intact. Neck Other: No JVD, moving his neck easily, no adenopathy, no swelling Resp Effort & Inspection: normal respiratory effort Auscultation: clear to auscultation bilaterally Cardio Rate: regular rate Rhythm: regular rhythm Heart sounds: S1 normal heart sound present and S2 normal heart sound present GI Other: The patient's abdomen seemed diffusely tender. Back/Spine/Pelvis Other: The patient seemed to have a lot of midline and paraspinous tenderness generally without definite focal tenderness. Specifically the patient has not really seemed to have definite focal tenderness over L1 Skin Other: Skin was dry and unremarkable Neuro Other: The patient was initially fairly awake and later quite sleepy but later more awake again. No cranial nerve deficit. He moves his extremities symmetrically and seemed steady on his feet. Extrem Other: The patient was wearing a tall orthopedic boot on his left lower leg and foot. He says he has been wearing this for 2 years since an ankle fracture. Medications Administered Discontinued Medications Generic Name Dose Route Start Last Admin Trade Name Freq PRN Reason Stop Dose Admin Buprenorphine/Naloxone 1 film 01/05/24 15:47 01/05/24 15:54 Buprenorphine/Naloxone 8/2 Mg Film SUBLINGUAL 01/05/24 15:48 1 film ONCE ONE Administration Sodium Chloride 1,000 mls @ 999 mls/hr 01/05/24 11:00 01/05/24 12:40 Ns IV 01/05/24 12:00 Infused .Q1H1M SAM Infusion Magnesium Sulfate 2 gm in 50 mls @ 150 mls/hr 01/05/24 12:20 01/05/24 13:09 Magnesium Sulfate/H2o IV 01/05/24 12:39 Infused ONCE ONE Infusion Sodium Chloride 1,000 mls @ 999 mls/hr 01/05/24 13:30 01/05/24 16:10 Ns IV 01/05/24 14:30 Infused .Q1H1M SAM Infusion Iohexol 100 ml 01/05/24 14:24 01/05/24 14:24 Iohexol 350 Mg/Ml 100 Ml Infus..Btl IV 01/05/24 14:25 85 ml ONCE ONE Administration Medical Decision Making Medical Decision Making [facility] Narrative: The patient is a 73-year-old male who has a history of opioid use disorder. He is prescribed Suboxone. Despite his Suboxone he has a history of multiple ER visits for complications of opioid use problems. He presents with what he says are 2-3 days of low back pain. He describes the pain as being on either side of his low back. He has not had a fever. The patient had initially seemed to imply that he was having more right-sided flank pain and possibly discomfort with urination. His urinalysis shows no blood and no signs of infection. His white blood count was 11.4, hemoglobin 12.8, platelet count 296. Slight left shift with 81.6% neutrophils. Metabolic panel showed normal electrolytes and unremarkable renal function. Mild hyperglycemia. CRP slightly elevated at 3.74. A urine tox screen was positive for opioids and positive for fentanyl. He had not been given any analgesics here in the emergency room. His urine tox screen was also positive for buprenorphine which he is prescribed. The patient does not have a fever. We did a rectal temperature that was 99.8. He has not tachycardic. Based on how he became more somnolent after his initial presentation I had some suspicion that he might have taken some kind of an opioid immediately after arriving at the hospital. Overall I found his evaluation puzzling and ordered a CT scan more for thoroughness' sake than expectation of actually finding pathology. The CT scan shows an L1 compression fracture. The age of this fracture is not entirely clear. When I told the patient there was an L1 compression fracture he responded or that must be from when I fell. When I asked him when he fell he said 2 years ago. Ultimately the patient seemed well enough for outpatient management. Since his compression fracture was read as possibly acute he will be prescribed 10 tablets of MSIR 15 mg each. He was advised that he should not stop his buprenorphine dosages. He should follow up with his PCP Lab Data 01/05/24 11:31 01/05/24 11:31 Labs: Lab Results 01/05/24 01/05/24 Range/Units 11:31 12:24 WBC 11.4 H (4.8-10.8) X10*3/uL RBC 4.27 L (4.60-5.80) X10*6/uL Hgb 12.8 L (14.0-18.0) g/dl Hct 37.9 L (42.0-52.0) % MCV 88.8 (80.0-98.0) fL MCH 30.0 (27.0-33.0) pg MCHC 33.8 (31.0-36.0) g/dl RDW 12.9 (11.0-16.0) % Plt Count 296 (160-400) X10*3/uL MPV 9.4 (9.4-12.4) fL Immature Gran % (Auto) 0.9 H (0.0-0.4) % Neut % (Auto) 81.6 H (45-73) % Lymph % (Auto) 11.6 L (20-40) % Bartholomew % (Auto) 5.2 (2-11) % Eos % (Auto) 0.4 (0-4) % Baso % (Auto) 0.3 (0-2) % Lymph # (Auto) 1.3 (1.2-4.9) X10*3/uL Bartholomew # (Auto) 0.6 (0.1-1.2) X10*3/uL Eos # (Auto) 0.1 (0.0-0.4) X10*3/uL Baso # (Auto) 0.0 (0.0-0.2) X10*3/uL Abs Immat Gran (auto) 0.10 H (0.00-0.03) X10*3/uL Absolute Neuts (auto) 9.3 H (2.0-8.3) x10*3/uL Absolute Nucleated RBC 0.000 (0.0-0.012) X10*3/uL Nucleated RBC % (auto) 0.0 (0.0-0.2) /100WBC Sodium 138 (135-145) mmol/L Potassium 3.7 (3.3-5.1) mmol/L Chloride 99 (96-108) mmol/L Carbon Dioxide 26 (22-29) mmol/L Anion Gap 17 (12-20) BUN 19 H (9-16) mg/dL Creatinine 0.73 (0.5-1.4) mg/dL Estim Creat Clear Calc 92.8 Estimated GFR > 60 Random Glucose 164 H (60-115) mg/dL Calcium 10.4 H (8.4-10.2) mg/dL Magnesium 1.4 L* (1.6-2.6) mg/dL Total Bilirubin 0.5 (0.0-1.0) mg/dL Direct Bilirubin 0.2 (0.0-0.5) mg/dL AST 40 H (5-37) U/L ALT 27 (0-40) U/L Alkaline Phosphatase 75 (39-117) U/L C-Reactive Protein 3.74 H (< or = 0.50) mg/dL Total Protein 7.9 (6.5-8.0) g/dL Albumin 4.5 (3.5-5.0) g/dL Lipase 34 (8-78) U/L Urine Color Yellow Urine Appearance Clear Urine pH 8.5 (5.0-9.0) Ur Specific [place] 1.010 (1.005-1.025) Urine Protein Trace (Neg-Trace) mg/dL Urine Glucose (UA) 250 H (Negative) mg/dL Urine Ketones 15 (Negative) mg/dL Urine Blood Negative (Negative) Urine Nitrite Negative (Negative) Ur Leukocyte Esterase Negative (Negative) Urine Opiates Screen POSITIVE H (Not Detect) Ur Buprenorphine Scrn Positive H (Not Detect) ng/mL Ur Oxycodone Screen Not Detected (Not Detect) ng/mL Urine Methadone Screen Not Detected (Not Detect) ng/mL Urine Fentanyl Screen POSITIVE H (Not Detect) Ur Barbiturates Screen Not Detected (Not Detect) Ur Phencyclidine Scrn Not Detected (Not Detect) Ur Amphetamines Screen Not Detected (Not Detect) U Benzodiazepines Scrn Not Detected (Not Detect) Urine Cocaine Screen Not Detected (Not Detect) U Marijuana (THC) Screen Not Detected (Not Detect) Discharge Plan Discharge Clinical Impression: Back pain, Closed compression fracture of L1 vertebra Patient Disposition: Home, Self-Care Additional Instructions: The CT scan you had in the emergency room today shows a compression of your first lumbar vertebra (this is often referred to as ?L1 ). I have sent a prescription for some tablets of morphine that you may use as needed for pain over the next couple of days. You may also take acetaminophen (Tylenol). Take 2 extra-strength acetaminophen up to 3 times a day. Please follow up soon with your regular doctor. Return to the emergency room if worse. Prescriptions: New morphine 15 mg tablet 15 mg PO Q6H PRN (Reason: pain) Qty: 10 0RF Rx Instructions: Partial Fill upon patient request. No Action atorvastatin 40 mg tablet 40 mg PO BEDTIME olanzapine 5 mg tablet 5 mg PO BEDTIME glipizide 5 mg tablet extended release 24hr 5 mg PO DAILY acetaminophen 500 mg tablet 1,000 mg PO Q8H PRN (Reason: pain) trazodone 100 mg tablet 100 mg PO BEDTIME Rx Instructions: TAKE WITH 150MG; TDD 250MG amlodipine 10 mg tablet 10 mg PO DAILY trazodone 150 mg tablet 150 mg PO BEDTIME Rx Instructions: TAKE WITH 100MG; TDD 250MG metformin 1,000 mg tablet 1,000 mg PO BID oxybutynin chloride 5 mg tablet extended release 24hr 5 mg PO DAILY omeprazole 20 mg capsule,delayed release(DR/EC) 20 mg PO DAILY@0630 dorzolamide-timolol 22.3-6.8 mg/mL drops 1 drp ophthalmic-Left BID metoprolol succinate 25 mg tablet extended release 24 hr 25 mg PO DAILY lisinopril 40 mg tablet 40 mg PO BID loratadine 10 mg tablet 10 mg PO DAILY fluticasone propionate [Flovent HFA] 110 mcg/actuation HFA aerosol inhaler 1 puff INHALATION BID Certavite-Antioxidant 18-400 mg-mcg tablet 1 tab PO DAILY buprenorphine-naloxone 8-2 mg film 1 film sublingual BID latanoprost 0.005 % drops 1 drp ophthalmic-Left BEDTIME omega-3 acid ethyl esters 1 gram capsule 1 cap PO TID Levemir U-100 Insulin 100 unit/mL solution 42 unit subcut BID lidocaine [Lidocaine Pain Relief] 4 % Adhesive Patch,Medicated 1 patch transdermal DAILY Qty: 30 0RF Protocol: Apply to: Apply to: affcetd area oxycodone 5 mg Tablet 5 mg PO Q6H PRN (Reason: Pain, Mild (Pain Scale 1-3)) Qty: 12 0RF Rx Instructions: Partial Fill upon patient request. tamsulosin 0.4 mg capsule 0.4 mg PO BEDTIME 90 Days Qty: 90 1RF Referrals: Jax Moe MD [Primary Care Provider] - (L1 compression fracture) Interventions: ED Discharge Assessment Last Done: 01/05/24 16:16 Discharge Date/Time: 01/05/24 16:18 Print Language: Ukrainian
[2024-01-05 09:54] VITALS: BP 166/85; BP 190/100; PULSE 87; PULSE 90; RESP 18; TEMP 37; O2SAT 93; O2SAT 96; BMI 30.5
--- NOTE | 2024-01-05 10:06 | ECG_ITS ---
Test Reason : BACKPAIN Blood Pressure : / mmHG Vent. Rate : 082 BPM Atrial Rate : 082 BPM P-R Int : 174 ms QRS Dur : 122 ms QT Int : 396 ms P-R-T Axes : 070 -73 054 degrees QTc Int : 462 ms Normal sinus rhythm Left anterior fascicular block Minimal voltage criteria for LVH, may be normal variant ( Bracey product ) Septal infarct , age undetermined Abnormal ECG When compared with ECG of 20-JUN-2023 09:44, Premature ventricular complexes are no longer Present Premature supraventricular complexes are no longer Present Septal infarct is now Present Referred By: Demar Lemus Electronically Signed By:Franco Giordano
[2024-01-05] MEDS: 0.9 % Sodium Chloride 1,000 ML 999 ML IV ×2 (11:35→14:03)
[2024-01-05 11:36] LABS: MANUAL DIFF FLAG NO
--- NOTE | 2024-01-05 11:40 | PC.NURSE ---
20g IV placed in R-Ac fluids infusing per order
[2024-01-05 11:42] LABS: Basophils Percent Auto 0.3 % (0-2); Eosinophils Absolute Auto 0.1 X10*3/uL (0.0-0.4); Eosinophils Percent Auto 0.4 % (0-4); Hematocrit 37.9 % (42.0-52.0); Hemoglobin 12.8 g/dl (14.0-18.0); Imm Gran Pct Auto 0.9 % (0.0-0.4); Lymphocytes Absolute Auto 1.3 X10*3/uL (1.2-4.9); Lymphocytes Percent Auto 11.6 % (20-40); Mean Corpuscular HGB Conc 33.8 g/dl (31.0-36.0); Mean Corpuscular Volume 88.8 fL (80.0-98.0); Mean Platelet Volume 9.4 fL (9.4-12.4); Monocytes Absolute Auto 0.6 X10*3/uL (0.1-1.2); Monocytes Percent Auto 5.2 % (2-11); Neutrophils Absolute Auto 9.3 x10*3/uL (2.0-8.3); Neutrophils Percent Auto 81.6 % (45-73); Platelet Count 296 X10*3/uL (160-400); Red Blood Count 4.27 X10*6/uL (4.60-5.80); Red Cell Distribution Width 12.9 % (11.0-16.0); White Blood Count 11.4 X10*3/uL (4.8-10.8)
[2024-01-05 12:18] LABS: Alanine Aminotransferase 27 U/L (0-40); Albumin Level 4.5 g/dL (3.5-5.0); Alkaline Phosphatase 75 U/L (39-117); Anion Gap 17 (12-20); Aspartate Amino Transferase 40 U/L (5-37); Bilirubin Direct 0.2 mg/dL (0.0-0.5); Bilirubin Total 0.5 mg/dL (0.0-1.0); Blood Urea Nitrogen 19 mg/dL (9-16); C Reactive Protein 3.74 mg/dL (< or = 0.50); Calcium 10.4 mg/dL (8.4-10.2); Carbon Dioxide 26 mmol/L (22-29); Chloride 99 mmol/L (96-108); Creatinine Clr Calc Pharmacy 92.8; Estimated Glomerular Filt Rate > 60; Glucose Random 164 mg/dL (60-115); Lipase 34 U/L (8-78); Magnesium 1.4 mg/dL (1.6-2.6); Potassium 3.7 mmol/L (3.3-5.1); Sodium 138 mmol/L (135-145); Total Protein 7.9 g/dL (6.5-8.0)
[2024-01-05 12:30] LABS: Appearance Urine Clear; Color Urine Yellow; Glucose Urine UA 250 mg/dL (Negative); Leukocyte Esterase Urine Negative (Negative); Nitrite Urine Negative (Negative); PH 8.5 (5.0-9.0); Urine Blood Negative (Negative); Urine Ketones 15 mg/dL (Negative); Urine Protein Trace mg/dL (Neg-Trace)
[2024-01-05] MEDS: Magnesium Sulfate/H2O 2 GM/50 ML PIGGYBACK IV (12:32)
[2024-01-05 13:08] VITALS: TEMP 37.7
[2024-01-05 13:52] LABS: Amphetamine Screen Urine Not Detected (Not Detect); Barbiturates, Urine Not Detected (Not Detect); Benzodiazepines Screen Urine Not Detected (Not Detect); Buprenorphine Scr Positive (Not Detect); Cannabinoid Screen Urine Not Detected (Not Detect); Cocaine Screen Urine Not Detected (Not Detect); Fentanyl, urine POSITIVE (Not Detect); Methadone Screen, Urine Not Detected (Not Detect); Opiate Screen Urine POSITIVE (Not Detect); Oxycodone Screen Urine Not Detected (Not Detect); Phencyclidine Screen Urine Not Detected (Not Detect)
--- NOTE | 2024-01-05 14:06 | PC.NURSE ---
IVF hung per MAR
[2024-01-05] MEDS: iohexoL 350 MG/ML 100 ML INFUS..BTL IV (14:24)
[2024-01-05] MEDS: Buprenorphine/Naloxone 8/2 mg FILM 1 FILM SUBLINGUAL (15:54)
[2024-01-05 16:16] VITALS: BP 184/89; PULSE 82; RESP 12; TEMP 37.7; O2SAT 96
--- NOTE | 2024-01-10 11:46 | MHC.CM.ED ---
Received telephone call from [facility]. Patient is active with senior living. ER d/c faxed as requested to [phone].
== END 2024-01-05 16:18 | disposition home or self-care (01) ==
PROVIDERS: Emergency Provider Emergency Medicine; PCP Internal Medicine
DX: M48.56XA Collapsed vertebra, not elsewhere classified, lumbar region, initial encounter for fracture (principal); R10.2 Pelvic and perineal pain; M54.50 Low back pain, unspecified; R94.31 Abnormal electrocardiogram [ECG] [EKG]; R11.2 Nausea with vomiting, unspecified; Z79.899 Other long term (current) drug therapy
CPT/HCPCS: 36415; 74177; 80048; 80076; 80307; 81003; 83690; 83735; 85025; 86140; 93005; 96361; 96365; 99284; J3475; Q9967

== ENCOUNTER → 2024-01-05 10:06 | Outpatient (BNV) | payer OTHER, SELFPAY | PROVIDERS: Emergency Provider Emergency Medicine; PCP Internal Medicine; Visit Provider Internal Medicine Cardiovascular Disease | DX: I44.4 Left anterior fascicular block (principal) | CPT/HCPCS: 93010 ==

== ENCOUNTER 2024-01-13 20:45 | Inpatient (IN) | payer OTHER, SELFPAY ==
--- NOTE | ~2024-01-13 | MR_ITS ---
MR LUMBAR SPINE WITHOUT CONTRAST CLINICAL INFORMATION: L1 compression fracture for further evaluation. COMPARISON: Abdominal CT 01/05/2024. TECHNIQUE: A 3 plane localizer and sagittal T2 series the lumbar spine are obtained. The patient could not tolerate this exam. MR/MR lumbar spine wo con FINDINGS/IMPRESSION: Nondiagnostic/incomplete MRI of the lumbar spine. The patient could not tolerate this study due to pain. - Redemonstration of an acute appearing L1 vertebral body burst fracture associated with slight upper endplate retropulsion and buckling of the anterior longitudinal ligament. No fluid sensitive STIR series was obtained for this study to definitively age this fracture. - At L2-L3, and annular disc bulge and severe bilateral facet arthropathy and ligamentum flavum thickening result in suspected moderate to severe central canal stenosis, severe bilateral subarticular zone stenosis with compression of the traversing L3 nerve roots bilaterally, and a left lateral disc osteophyte protrusion results in moderate to severe left foraminal stenosis with mass effect on the exiting left L2 nerve root. - At L3-L4, there are right greater than left lateral disc protrusions resulting in severe right and moderate left foraminal stenosis with compression of the foraminal and extraforaminal segments of the exiting right L3 nerve root. - At L4-L5, a diffuse annular disc bulge associated with an annular fissure as well as severe bilateral facet arthropathy and ligamentum flavum thickening result in moderate to severe central canal stenosis, severe bilateral subarticular zone stenosis with compression of the traversing L5 nerve roots bilaterally, and moderate to severe bilateral foraminal stenosis with mass effect on the exiting L4 nerve roots bilaterally. - Partially imaged bilateral adrenal masses, better characterized on recent abdominal CT imaging.
--- NOTE | ~2024-01-13 | NM_ITS ---
EXAMINATION: NM BONE SCAN-LIMITED CLINICAL INFORMATION: Known compression fracture, suspected acute. History of fall (a few times) 2 weeks ago. COMPARISON: CT of the abdomen and pelvis done on 01/05/2024 and limited MRI of the lumbosacral spine done on 01/14/2024. TECHNIQUE: Multiple gamma scintillation camera images of the thoracolumbar spine including the thoracic cage and the pelvis and both lower extremities to the level of the mid leg were performed 3 hours following the intravenous administration of 32 mCi Tc-99m MDP. The radiotracer was injected through left antecubital superficial vein. FINDINGS: In the thoracic cage and upper extremities, mildly increased tracer avidity is noted at multiple consecutive adjacent left mid hemithoracic ribs anterolaterally, most consistent with healing rib fractures. In the spine, intense linear tracer avidity is noted corresponding to the site of previously documented burst fracture involving L1 vertebral body. The remainder of the entire included thoracolumbar spine do not show any other additional tracer avid disease. In the pelvis, unremarkable. In the lower extremities, asymmetric increased tracer avidity is present along the superior outer aspect of the greater trochanter of the left femur. When correlating with the CT study done on 01/05/2024, consistent with myositis ossificans. Mild nonspecific arthritic changes at both knees. No other definite bony abnormalities are noted. The urinary bladder and faint visualization of both kidneys are noted. NM/OR bone scan limited area IMPRESSION: * Intense linear tracer avidity is noted corresponding to the site of moderate to severe burst fracture involving L1 vertebral body. * No other additional site of tracer avid disease within the included thoracolumbar spine. * Incidental note is made of asymmetric increased tracer avidity overlying the greater trochanteric region of the left femur, when correlating with the prior CT study dated 01/05/2024, the finding is most consistent with myositis ossificans. * Healing rib fractures involving anterolateral aspect of the mid part of the left hemithoracic cage.
[2024-01-13 20:50] VITALS: BP 189/99; PULSE 74; O2SAT 97
[2024-01-13 21:10] VITALS: BP 158/81; PULSE 71; RESP 16; TEMP 36.7; O2SAT 98; BMI 31.2
--- NOTE | 2024-01-13 23:40 | ED.BACK ---
HPI - Back Pain/Injury General Chief Complaint: Back Pain/Injury Stated Complaint: chronic back pain Time Seen by Provider: 01/13/24 23:05 Source: patient Mode of arrival: EMS Limitations: no limitations History of Present Illness HPI Narrative: Patient apparently had a mechanical fall on 01/03 was seen here on 01/04 CT scan of the abdomen showed L1 fracture which is new as compared to in the past CT scan which was done in 2022 patient does have chronic back pain but this acute pain started after the fall patient where left boot for old left ankle fracture 2021. Patient was discharged on morphine tablets but he still feeling increased pain and able to ambulate because of pain patient also has chronic hypomagnesemia Related Data Home Medications ?Medication ?Instructions ?Recorded ?Confirmed acetaminophen 500 mg tablet 1,000 mg PO Q8H PRN pain 02/01/23 06/20/23 amlodipine 10 mg tablet 10 mg PO DAILY 02/01/23 06/20/23 atorvastatin 40 mg tablet 40 mg PO BEDTIME 02/01/23 06/20/23 buprenorphine 8 mg-naloxone 2 mg 1 film sublingual BID 02/01/23 06/20/23 sublingual film dorzolamide 22.3 mg-timolol 6.8 1 drp ophthalmic-Left BID 02/01/23 06/20/23 mg/mL eye drops fluticasone propionate 110 1 puff inhalation BID 02/01/23 06/20/23 mcg/actuation HFA aerosol inhaler (Flovent HFA) glipizide 5 mg tablet, extended 5 mg PO DAILY 02/01/23 06/20/23 release 24 hr lisinopril 40 mg tablet 40 mg PO BID 02/01/23 06/20/23 loratadine 10 mg tablet 10 mg PO DAILY 02/01/23 06/20/23 metformin 1,000 mg tablet 1,000 mg PO BID 02/01/23 06/20/23 metoprolol succinate 25 mg 25 mg PO DAILY 02/01/23 06/20/23 tablet,extended release 24 hr multivitamin-ferrous 1 tab PO DAILY 02/01/23 06/20/23 fumarate-folic acid 18 mg-400 mcg tablet (Certavite-Antioxidant) olanzapine 5 mg tablet 5 mg PO BEDTIME 02/01/23 06/20/23 omeprazole 20 mg capsule,delayed 20 mg PO DAILY@0630 02/01/23 06/20/23 release oxybutynin chloride 5 mg 5 mg PO DAILY 02/01/23 06/20/23 tablet,extended release 24 hr trazodone 100 mg tablet 100 mg PO BEDTIME 02/01/23 06/20/23 trazodone 150 mg tablet 150 mg PO BEDTIME 02/01/23 06/20/23 insulin detemir U-100 100 unit/mL 42 unit subcut BID 06/20/23 06/20/23 subcutaneous solution (Levemir U-100 Insulin) latanoprost 0.005 % eye drops 1 drp ophthalmic-Left BEDTIME 06/20/23 06/20/23 omega-3 acid ethyl esters 1 gram 1 cap PO TID 06/20/23 06/20/23 capsule Previous Rx's ?Medication ?Instructions ?Recorded tamsulosin 0.4 mg capsule 0.4 mg PO BEDTIME BPH 90 days #90 02/05/23 caps lidocaine 4 % topical patch 1 patch transdermal DAILY #30 ea 06/24/23 (Lidocaine Pain Relief) oxycodone 5 mg tablet 5 mg PO Q6H PRN Pain, Mild (Pain 06/24/23 Scale 1-3) #12 tabs morphine 15 mg immediate release 15 mg PO Q6H PRN pain #10 tabs 01/05/24 tablet Allergies Allergy/AdvReac Type Severity Reaction Status Date / Time No Known Allergies Allergy Verified 01/13/24 21:15 Review of Systems Review of Systems: Yes all other systems are reviewed and are negative [facility] Past Medical History Medical History Left against medical advice Post-traumatic arthritis of left ankle History of fracture of left ankle COPD (chronic obstructive pulmonary disease) Opioid dependence Hypertension Prepatellar bursitis, left knee CAD (coronary artery disease) Diabetes mellitus JAUN (obstructive sleep apnea) COPD (chronic obstructive pulmonary disease) Genital herpes Opioid dependence on agonist therapy Anxiety History of adenomatous polyp of colon Chronic constipation GERD (gastroesophageal reflux disease) Pancreatic abnormality Hypertension Surgical History S/P hardware removal History of ankle surgery Family History Family History Mother No problems noted. Father Liver cancer Social History Social History Household Members: Spouse Housing: Apartment Do you presently have visiting nurse or other home services: Yes Unable to assess alcohol history related to: Unknown Alcohol intake: never Comment: pt medicated with po tylenol for pain Patient Tobacco Use Status: Former Tobacco user Tobacco use type: Cigarette Cigarettes Per Day: 4 Smoked in Last 30 Days: Yes e-Cigarette/Vaping Use: Currently Using Second Hand Smoke Exposure: No Use of substances other than those prescribed or required for medical reasons: No Substance Use Type: Heroin Advance Directives: Yes Advance Directives on File: Yes Advance Directives Date on File: 01/28/22 Do you have a plan to hurt others: No Plan service: No Current occupational status: retired and disabled Current occupation: right handed Physical Exam Vital Signs: Vital Signs: Last Vital Signs Temp 97.6 F 01/14/24 00:00 Pulse 70 01/14/24 00:00 Resp 16 01/14/24 00:19 BP 147/78 H 01/14/24 00:00 Pulse Ox 95 01/14/24 00:00 O2 Del Method Room Air 01/14/24 00:00 BMI result Body Mass Index 31.2 Appearance: Alert. Oriented X3. No acute distress. Eyes: Left eye with a patch ENT: Pharynx normal. Oral Mucosa moist Neck: Normal inspection. Neck supple. CVS: Normal heart rate and rhythm. Pulses normal. Respiratory: No respiratory distress. Equal air entry bilateral, no wheezing/rales/rhonchi Abdomen: Soft and nontender. Bowel sounds are present, no mass palpable, no CVA tenderness Back: Focal tenderness L1 vertebral SLR negative no focal deficits Skin: Skin warm and dry. Normal skin color. Normal skin turgor. Extremities: No lower extremity edema. No calf tenderness left foot in leg boot deep tendon reflexes 2+ Neuro: Oriented X 3. No motor deficit. No sensory deficit.No cerebellar signs , cranial nerves II-XII intact Medications Administered Discontinued Medications Generic Name Dose Route Start Last Admin Trade Name Freq PRN Reason Stop Dose Admin Hydromorphone HCl 2 mg 01/13/24 23:55 01/14/24 00:19 Hydromorphone Hcl 1 Mg/Ml Syringe IVPUSH 05/16/24 23:56 2 mg ONCE ONE Administration Protocol Ondansetron HCl 4 mg 01/13/24 23:55 01/14/24 00:18 Ondansetron Hcl 4 Mg/2 Ml Vial IVPUSH 01/13/24 23:56 4 mg ONCE ONE Administration Medical Decision Making Medical Decision Making [facility] Narrative: Patient with acute L1 fracture seen in the CT scan no 01/[address] scan in 10/22 was negative for fracture patient did not have significant pain at the location in the past but does have chronic low back pain patient unable to ambulate because of increased pain will admit patient for vertebroplasty and pain control also noted to have magnesium level of 1.4 will replace his magnesium Differential Diagnosis Differential Diagnoses: The differential diagnosis associated with the presentation includes Compression fracture/chronic back pain Admission/Observation Consideration of admission/observation: Escalation of care including admission/observation considered Consult Healthcare Provider Management of the patient was discussed with: Hospitalist Lab Data [facility] Lab Attestation statement: I reviewed the patient's lab results. 01/14/24 00:17 01/14/24 00:17 Labs: Lab Results 01/14/24 01/14/24 Range/Units 00:16 00:17 WBC 12.4 H (4.8-10.8) X10*3/uL RBC 4.05 L (4.60-5.80) X10*6/uL Hgb 12.1 L (14.0-18.0) g/dl Hct 35.2 L (42.0-52.0) % MCV 86.9 (80.0-98.0) fL MCH 29.9 (27.0-33.0) pg MCHC 34.4 (31.0-36.0) g/dl RDW 12.6 (11.0-16.0) % Plt Count 339 (160-400) X10*3/uL MPV 9.0 L (9.4-12.4) fL Immature Gran % (Auto) 0.4 (0.0-0.4) % Neut % (Auto) 72.5 (45-73) % Lymph % (Auto) 19.6 L (20-40) % [facility] % (Auto) 6.1 (2-11) % Eos % (Auto) 1.0 (0-4) % Baso % (Auto) 0.4 (0-2) % Lymph # (Auto) 2.4 (1.2-4.9) X10*3/uL [facility] # (Auto) 0.8 (0.1-1.2) X10*3/uL Eos # (Auto) 0.1 (0.0-0.4) X10*3/uL Baso # (Auto) 0.1 (0.0-0.2) X10*3/uL Abs Immat Gran (auto) 0.05 H (0.00-0.03) X10*3/uL Absolute Neuts (auto) 9.0 H (2.0-8.3) x10*3/uL Absolute Nucleated RBC 0.000 (0.0-0.012) X10*3/uL Nucleated RBC % (auto) 0.0 (0.0-0.2) /100WBC PT 12.4 (11.1-13.3) SEC INR 1.0 (0.9-1.1) Sodium 139 (135-145) mmol/L Potassium 3.7 (3.3-5.1) mmol/L Chloride 101 (96-108) mmol/L Carbon Dioxide 26 (22-29) mmol/L Anion Gap 16 (12-20) BUN 13 (9-16) mg/dL Creatinine 0.78 (0.5-1.4) mg/dL Estim Creat Clear Calc 87.6 Estimated GFR > 60 Random Glucose 102 (60-115) mg/dL Calcium 9.8 (8.4-10.2) mg/dL Magnesium 1.4 L* (1.6-2.6) mg/dL Total Bilirubin 0.2 (0.0-1.0) mg/dL AST 20 (5-37) U/L ALT 15 (0-40) U/L Alkaline Phosphatase 88 (39-117) U/L Total Protein 7.3 (6.5-8.0) g/dL Albumin 4.2 (3.5-5.0) g/dL Discharge Plan Discharge Clinical Impression: Closed compression fracture of body of L1 vertebra, Hypomagnesemia Patient Disposition: Admitted As Inpatient Print Language: Vincentian
[2024-01-14] VITALS (10 sets, daily range): BP systolic 147–172; BP diastolic 69–100; PULSE 60–70; RESP 12–20; TEMP 36.2–36.6; O2SAT 92–97
[2024-01-14] MEDS: ondansetron HCL 4 MG/2 ML VIAL IVPUSH (00:18)
[2024-01-14] MEDS: HYDROmorphone HCl 1 MG/ML SYRINGE 2 MG IVPUSH (00:19)
[2024-01-14 00:23] LABS: MANUAL DIFF FLAG NO
[2024-01-14 00:24] LABS: Basophils Absolute Auto 0.1 X10*3/uL (0.0-0.2); Basophils Percent Auto 0.4 % (0-2); Eosinophils Absolute Auto 0.1 X10*3/uL (0.0-0.4); Hematocrit 35.2 % (42.0-52.0); Hemoglobin 12.1 g/dl (14.0-18.0); Imm Gran Abs Auto 0.05 X10*3/uL (0.00-0.03); Imm Gran Pct Auto 0.4 % (0.0-0.4); Lymphocytes Absolute Auto 2.4 X10*3/uL (1.2-4.9); Lymphocytes Percent Auto 19.6 % (20-40); Mean Corpuscular HGB Conc 34.4 g/dl (31.0-36.0); Mean Corpuscular Hemoglobin 29.9 pg (27.0-33.0); Mean Corpuscular Volume 86.9 fL (80.0-98.0); Monocytes Absolute Auto 0.8 X10*3/uL (0.1-1.2); Monocytes Percent Auto 6.1 % (2-11); Neutrophils Percent Auto 72.5 % (45-73); Platelet Count 339 X10*3/uL (160-400); Red Blood Count 4.05 X10*6/uL (4.60-5.80); Red Cell Distribution Width 12.6 % (11.0-16.0); White Blood Count 12.4 X10*3/uL (4.8-10.8)
[2024-01-14 00:31] LABS: Prothrombin Time 12.4 SEC (11.1-13.3)
[2024-01-14 00:42] LABS: Alanine Aminotransferase 15 U/L (0-40); Albumin Level 4.2 g/dL (3.5-5.0); Alkaline Phosphatase 88 U/L (39-117); Anion Gap 16 (12-20); Aspartate Amino Transferase 20 U/L (5-37); Bilirubin Total 0.2 mg/dL (0.0-1.0); Blood Urea Nitrogen 13 mg/dL (9-16); Calcium 9.8 mg/dL (8.4-10.2); Carbon Dioxide 26 mmol/L (22-29); Chloride 101 mmol/L (96-108); Creatinine Clr Calc Pharmacy 87.6; Estimated Glomerular Filt Rate > 60; Glucose Random 102 mg/dL (60-115); Magnesium 1.4 mg/dL (1.6-2.6); Potassium 3.7 mmol/L (3.3-5.1); Sodium 139 mmol/L (135-145); Total Protein 7.3 g/dL (6.5-8.0)
--- NOTE | 2024-01-14 00:50 | PC.NURSE ---
this rn assumed care of pt, pt brought from [facility] [place] to [facility]. pt resting in stretcher, no acute distress noted.
[2024-01-14] MEDS: Magnesium Sulfate/H2O 2 GM/50 ML PIGGYBACK IV (01:47)
--- NOTE | 2024-01-14 01:48 | PC.NURSE ---
pt medicated per oct. at bedside to assess pt.
--- NOTE | 2024-01-14 02:36 | P.HPHOSP_ITS ---
History of Present Illness Date of Service: 01/14/24 Attending physician on admission: Janice Rivera Chief Complaint: Back pain Rosie Garza is a 73 years old man with past medical history significant for essential hypertension, opiate use disorder on Suboxone and type 2 diabetes mellitus presents to the emergency department complaining of worsening lower back pain over the last several weeks. He denied associated symptoms such as leg numbness, pain with urination, nausea, vomiting, diarrhea, fevers or chills. He sustained a fall at the beginning of this month. At that time he was seen in the emergency department and underwent an abdominal pelvis CT scan that showed a compression fracture to L1. He stated that he was discharged on morphine but this is not helping. He also admit that he has been inhaling heroin. Cardiopulmonary, gastrointestinal genitourinary symptoms were not reported. He inhales heroin. Denies alcohol abuse or tobacco smoking. In the ED, he was found to have stable vital signs. Blood workup was remarkable for leukocytosis of 12.4. Hemoglobin is at baseline. Platelets are normal. There are no electrolyte imbalances except for hypomagnesemia of 1.4. LFTs are normal. Chart review: Abdomen pelvis CT scan with IV contrast, January 05, 2024 showed compression deformity of the L1 vertebrae (new), diverticulosis unstable bilateral adrenal masses (adenomas), and trace pericardial effusion. ED Tx: Dilaudid 2 mg IV, Zofran 4 mg IV. Review of Systems 2 Review of Systems: All 12 systems were reviewed and normal except as noted in HPI. [facility] Medical History Left against medical advice Post-traumatic arthritis of left ankle History of fracture of left ankle COPD (chronic obstructive pulmonary disease) Opioid dependence Hypertension Prepatellar bursitis, left knee CAD (coronary artery disease) Diabetes mellitus JAUN (obstructive sleep apnea) COPD (chronic obstructive pulmonary disease) Genital herpes Opioid dependence on agonist therapy Anxiety History of adenomatous polyp of colon Chronic constipation GERD (gastroesophageal reflux disease) Pancreatic abnormality Hypertension Family History Mother No problems noted. Father Liver cancer Surgical History S/P hardware removal History of ankle surgery Social History Household Members: Spouse Housing: Apartment Do you presently have visiting nurse or other home services: Yes Unable to assess alcohol history related to: Unknown Alcohol intake: never Comment: pt medicated with po tylenol for pain Patient Tobacco Use Status: Former Tobacco user Tobacco use type: Cigarette Cigarettes Per Day: 4 Smoked in Last 30 Days: Yes e-Cigarette/Vaping Use: Currently Using Second Hand Smoke Exposure: No Use of substances other than those prescribed or required for medical reasons: No Substance Use Type: Heroin Advance Directives: Yes Advance Directives on File: Yes Advance Directives Date on File: 01/28/22 Do you have a plan to hurt others: No Plan service: No Current occupational status: retired and disabled Current occupation: right handed Meds Allergies Allergy/AdvReac Type Severity Reaction Status Date / Time No Known Allergies Allergy Verified 01/13/24 21:15 Active Medications: Current Medications Acetaminophen (Acetaminophen 325 Mg Tablet) 975 mg PO TID SAM Glucose (Glucose Gel 15 Gm Gel..Gram.) 15 gm PO Q15M PRN; Protocol PRN Reason: per Hypoglycemia Standing Ord. Heparin Sodium (Porcine) (Heparin Sodium,Porcine 5,000 Unit/Ml Vial) 5,000 unit SUBCUT Q8H SAM Hydromorphone HCl (Hydromorphone Hcl 1 Mg/Ml Syringe) 1 mg IVPUSH Q3H PRN; Protocol PRN Reason: Pain, Severe (Pain Scale 7-10) Magnesium Sulfate (Magnesium Sulfate/H2o) 2 gm in 50 mls @ 25 mls/hr IV ONCE STA Stop: 01/14/24 03:23 Last Admin: 01/14/24 01:47 Dose: 25 mls/hr Dextrose (D10) 250 mls @ 750 mls/hr IV Q15M PRN; Protocol PRN Reason: per Hypoglycemia Standing Ord. Ibuprofen (Ibuprofen 600 Mg Tablet) 600 mg PO TID SAM Stop: 01/14/24 21:01 Insulin Human Lispro (Insulin Lispro 100 Unit/Ml 3 Ml Vial) 0 unit SUBCUT QIDACHS [facility]; Protocol Oxycodone HCl (Oxycodone Hcl Immed Release 5 Mg Tablet) 5 mg PO Q6H PRN PRN Reason: Pain, Moderate(Pain Scale 4-6) Sodium Chloride (0.9 % Sodium Chloride Flush 3 Ml Syringe) 3 ml IVFLUSH QSHIFT [facility] Home Medications ?Medication ?Instructions ?Recorded ?Confirmed ?Last Taken ?Type acetaminophen 500 mg tablet 1,000 mg PO Q8H PRN pain 02/01/23 06/20/23 Unknown History amlodipine 10 mg tablet 10 mg PO DAILY 02/01/23 06/20/23 06/19/23 History atorvastatin 40 mg tablet 40 mg PO BEDTIME 02/01/23 06/20/23 06/19/23 History buprenorphine 8 mg-naloxone 2 mg 1 film sublingual BID 02/01/23 06/20/23 06/19/23 History sublingual film dorzolamide 22.3 mg-timolol 6.8 1 drp ophthalmic-Left BID 02/01/23 06/20/23 06/19/23 History mg/mL eye drops fluticasone propionate 110 1 puff inhalation BID 02/01/23 06/20/23 06/19/23 History mcg/actuation HFA aerosol inhaler (Flovent HFA) glipizide 5 mg tablet, extended 5 mg PO DAILY 02/01/23 06/20/23 06/19/23 History release 24 hr lisinopril 40 mg tablet 40 mg PO BID 02/01/23 06/20/23 06/19/23 History loratadine 10 mg tablet 10 mg PO DAILY 02/01/23 06/20/23 06/19/23 History metformin 1,000 mg tablet 1,000 mg PO BID 02/01/23 06/20/23 06/19/23 History metoprolol succinate 25 mg 25 mg PO DAILY 02/01/23 06/20/23 06/19/23 History tablet,extended release 24 hr multivitamin-ferrous 1 tab PO DAILY 02/01/23 06/20/23 06/19/23 History fumarate-folic acid 18 mg-400 mcg tablet (Certavite-Antioxidant) olanzapine 5 mg tablet 5 mg PO BEDTIME 02/01/23 06/20/23 06/19/23 History omeprazole 20 mg capsule,delayed 20 mg PO DAILY@0630 02/01/23 06/20/23 06/19/23 History release oxybutynin chloride 5 mg 5 mg PO DAILY 02/01/23 06/20/23 06/19/23 History tablet,extended release 24 hr trazodone 100 mg tablet 100 mg PO BEDTIME 02/01/23 06/20/23 06/19/23 History trazodone 150 mg tablet 150 mg PO BEDTIME 02/01/23 06/20/23 06/19/23 History insulin detemir U-100 100 unit/mL 42 unit subcut BID 06/20/23 06/20/23 06/19/23 History subcutaneous solution (Levemir U-100 Insulin) latanoprost 0.005 % eye drops 1 drp ophthalmic-Left BEDTIME 06/20/23 06/20/23 06/19/23 History omega-3 acid ethyl esters 1 gram 1 cap PO TID 06/20/23 06/20/23 06/19/23 History capsule metoprolol succinate 25 mg 25 mg PO QAM 01/14/24 01/14/24 Unknown History tablet,extended release 24 hr Physical Exam 2 Vital Signs and Narrative: Vital Signs: Last Vital Signs Temp 97.6 F 01/14/24 00:00 Pulse 70 01/14/24 00:00 Resp 16 01/14/24 00:19 BP 147/78 H 01/14/24 00:00 Pulse Ox 95 01/14/24 00:00 O2 Del Method Room Air 01/14/24 00:00 BMI result Body Mass Index 31.2 Constitutional - Awake and Alert, No apparent distress. HEENT - Pupils equally round. Normal sclerae. Heart - S1S2, RRR. Lungs - Normal lung expansion, Normal respiratory effort, No respiratory distress, CTA bilaterally Abdomen - NT / ND; +BS; No rebound or guarding - No CVA tenderness Extremities - no calf tenderness bilaterally, no swelling Back: Pinpoint tenderness over L1 region. Skin - Warm/Dry Neurological - Alert & oriented x3, 5/5 strength BUE and BLE. Normal sensation. Normal speech. Psychological - Appropriate affect Results Labs 01/14/24 00:17 01/14/24 00:17 Labs: Laboratory Results - last 24 hr 01/14/24 01/14/24 00:16 00:17 MCV 86.9 MCH 29.9 MCHC 34.4 RDW 12.6 Plt Count 339 MPV 9.0 L Immature Gran % (Auto) 0.4 Neut % (Auto) 72.5 Lymph % (Auto) 19.6 L [place] % (Auto) 6.1 Eos % (Auto) 1.0 Baso % (Auto) 0.4 Lymph # (Auto) 2.4 [place] # (Auto) 0.8 Eos # (Auto) 0.1 Baso # (Auto) 0.1 Abs Immat Gran (auto) 0.05 H Absolute Neuts (auto) 9.0 H Absolute Nucleated RBC 0.000 Nucleated RBC % (auto) 0.0 PT 12.4 INR 1.0 Anion Gap 16 Estim Creat Clear Calc 87.6 Estimated GFR > 60 Random Glucose 102 Calcium 9.8 Magnesium 1.4 L* Total Bilirubin 0.2 AST 20 ALT 15 Alkaline Phosphatase 88 Total Protein 7.3 Albumin 4.2 Assessment and Plan (1) Closed compression fracture of body of L1 vertebra: Status: Acute (2) Intractable back pain: Status: Acute Plan Rosie Garza is a 73 y/o man presents with: * Intractable back pain secondary to L1 compression fracture. Keeping observation under hospitalist service for pain control with: NSAIDs, Tylenol, Lidoderm patch and IV Dilaudid as needed. IR consult for kyphoplasty if they consider this is appropriate in this case. * Hypomagnesemia. Replete as needed. Continue to monitor magnesium level. * Type 2 diabetes mellitus. BG checks before meals at bedtime. Diabetic diet. Continue glipizide. Insulin sliding scale. * Opiate use disorder. Continue Suboxone. * Essential hypertension. Continue metoprolol and amlodipine. * Hyperlipidemia. Continue statin. * Heroin use, inhaled. Addiction medicine consult. * BPH. Continue tamsulosin. * GERD. Continue omeprazole. * Mood disorder. Continue olanzapine. Code status: Full DVT prophylaxis: SCDs Quality Stroke Does the patient have a stroke diagnosis?: No VTE Prior VTE?: No VTE Risk Level:: Medical - moderate - high VTE Device Contraindication: Treatment Not Indicated VTE Drug Contraindication: N/A - Med Ordered
[2024-01-14] MEDS: Ibuprofen 600 MG TABLET PO ×4 (02:43→20:21)
[2024-01-14] MEDS: Acetaminophen 325 MG TABLET 975 MG PO ×4 (02:43→20:18)
[2024-01-14] MEDS: Lidocaine 4 % Patch ADH..PATCH 1 PATCH TRANSDERMA (02:43)
--- NOTE | 2024-01-14 02:47 | PC.NURSE ---
pt medicated mar for 2/10 lower back pain, tolerated well with water.
--- NOTE | 2024-01-14 04:33 | PC.NURSE ---
pt arrived from the main ed to overflow
[2024-01-14 07:16] LABS: Glucose, Whole Blood 104 mg/dL (60-115)
[2024-01-14 07:18] LABS: Appearance Urine Clear; Color Urine Yellow; Glucose Urine UA Negative (Negative); Leukocyte Esterase Urine Negative (Negative); Nitrite Urine Negative (Negative); PH 8.5 (5.0-9.0); Urine Blood Negative (Negative); Urine Ketones Negative (Negative); Urine Protein Negative (Neg-Trace)
[2024-01-14 07:32] LABS: Amphetamine Screen Urine Not Detected (Not Detect); Barbiturates, Urine Not Detected (Not Detect); Benzodiazepines Screen Urine Not Detected (Not Detect); Buprenorphine Scr Positive (Not Detect); Cannabinoid Screen Urine Not Detected (Not Detect); Cocaine Screen Urine Not Detected (Not Detect); Fentanyl, urine POSITIVE (Not Detect); Methadone Screen, Urine Not Detected (Not Detect); Opiate Screen Urine POSITIVE (Not Detect); Oxycodone Screen Urine Not Detected (Not Detect); Phencyclidine Screen Urine Not Detected (Not Detect)
[2024-01-14] MEDS: HYDROmorphone HCl 1 MG/ML SYRINGE IVPUSH ×5 (08:10→20:15)
[2024-01-14] MEDS: Omeprazole 20 MG CAPSULE.DR PO (08:18)
[2024-01-14] MEDS: amLODIPine Besylate 10 MG TABLET PO (09:02)
[2024-01-14] MEDS: oxyCODONE HCl Immed Release 5 MG TABLET PO ×2 (09:02→16:04)
[2024-01-14] MEDS: Heparin Sodium,Porcine 5,000 UNIT/ML VIAL 5000 UNIT SUBCUT ×2 (09:03→16:05)
[2024-01-14] MEDS: Metoprolol Succinate ER 25 MG TAB.ER.24H PO (09:05)
--- NOTE | 2024-01-14 10:50 | PHA.MEDREC ---
Addendum entered by Juliette Maradiaga 01/14/24 10:57: Daughter also reported that patient is compliant with his medications. Original Note: Pharmacy Consult ? Medication Reconciliation Pharmacy has completed the medication reconciliation. spoke with patient to confirm medications. Patient is a poor historian so I used claim history to verify medications. He reports his [facility] administers his eye drops and insulin. I called patients daughter to verify what inhalers he is using, she reports that he does have both the flovent and Arnuity at home but uses as needed even though they are the same medication. The flovent was last picked up in July 2023 per claim history.
--- NOTE | 2024-01-14 10:56 | PM.EVENT ---
Event Note Date of Service: 01/14/24 Event Note: Seen and evaluated this morning Pain better controlled Start ATC Tylenol, Ibuprofen PRN Dilaudid PT eval IR consult recommended MRI Possible need of Kyphoplasty Inpt vs outpatient Time Spent With Patient Time: Total time managing care of this patient today ____ minutes.
[2024-01-14 11:50] LABS: Glucose, Whole Blood 162 mg/dL (60-115)
--- NOTE | 2024-01-14 11:55 | MHC.CM.PN ---
pt lives with has a ride home when dcd pt reports active with [facility] x 2 a day
[2024-01-14] MEDS: lisinopriL 40 MG TABLET PO ×2 (12:37→20:19)
[2024-01-14] MEDS: metFORMIN HCl 1,000 MG TABLET 1000 MG PO ×2 (12:37→20:21)
[2024-01-14] MEDS: Insulin Lispro 100 UNIT/ML 3 ML VIAL SUBCUT ×2 (12:38→21:04)
--- NOTE | 2024-01-14 12:44 | MHC.CM.PN ---
PT LIVES WITH IS ACTIVE FOR 2X DAY VISITS FROM A [facility]
[2024-01-14] MEDS: 0.9 % Sodium Chloride Flush 3 ML SYRINGE IVFLUSH (14:45)
[2024-01-14 16:15] LABS: Glucose, Whole Blood 116 mg/dL (60-115)
--- NOTE | 2024-01-14 16:39 | PC.NURSE ---
Pt had recent fall, per policy will be a High fall risk. Pt refusing alarms, when risk is explained to Pt, Pt states he is independent. High fall risk precautions reinforced.
[2024-01-14] MEDS: traZODone HCL 100 MG TABLET 300 MG PO (20:18)
[2024-01-14] MEDS: traZODone HCL 100 MG TABLET PO (20:18)
[2024-01-14] MEDS: Atorvastatin Calcium 40 MG TABLET PO (20:19)
[2024-01-14] MEDS: Cyclobenzaprine HCl 10 MG TABLET PO (20:20)
[2024-01-14 20:22] LABS: Glucose, Whole Blood 157 mg/dL (60-115)
[2024-01-14] MEDS: OLANZapine 5 MG TABLET PO (20:22)
--- NOTE | 2024-01-14 20:41 | HO.ADDICTCON ---
History of Present Illness Date of Service: 01/14/2024 Chief Complaint: Intractable back pain Reason for Consult: opioid use Sources of Information: patient interviewed and chart reviewed HPI Narrative: Patient is a 73 year old Slovenian speaking male currently medically admitted with intractable back pain. Consult requested as patient reported IN heroin use at time of admission. Patient seen in room 375. He was awake, alert, pleasant and engaged in interview He reports that he continues to take prescribed suboxone, but does not find that it helps his back pain. He also feels that morphine prescribed at time of discharge was not helpful. When asked about heroin/fentanyl use, he denied any use. He reported only opiates he uses are the ones that are prescribed. This scientific writer attempted to inquire about substance use via different questions, however patient continues to deny any use. Review of Systems Constitutional: Reports as per HPI Diagnostics Vital Signs (24Hr): Vital Signs - 24 hr 01/13/24 21:10 01/14/24 00:00 01/14/24 00:19 Temperature 98.0 F 97.6 F Pulse Rate 71 70 Respiratory Rate 16 17 16 Blood Pressure 158/81 H 147/78 H Pulse Oximetry 98 95 Oxygen Delivery Method Room Air Room Air 01/14/24 05:36 01/14/24 10:35 01/14/24 11:56 Temperature 97.9 F 97.1 F 97.4 F Pulse Rate 66 69 62 Respiratory Rate 16 18 18 Blood Pressure 170/100 H 157/89 H 162/80 H Pulse Oximetry 95 97 96 Oxygen Delivery Method Room Air Room Air Room Air 01/14/24 12:37 01/14/24 15:36 01/14/24 19:18 Temperature 97.2 F 97.2 F Pulse Rate 60 65 Respiratory Rate 12 16 Blood Pressure 162/80 H 172/78 H 149/69 H Pulse Oximetry 95 97 Oxygen Delivery Method Room Air Room Air 01/14/24 20:19 Temperature Pulse Rate Respiratory Rate Blood Pressure 149/69 H Pulse Oximetry Oxygen Delivery Method BMI result Body Mass Index 31.2 Labs 01/14/24 00:17 01/14/24 00:17 Labs: Laboratory Results - last 48 hr 01/14/24 01/14/24 01/14/24 00:16 00:17 06:55 WBC 12.4 H RBC 4.05 L Hgb 12.1 L Hct 35.2 L MCV 86.9 MCH 29.9 MCHC 34.4 RDW 12.6 Plt Count 339 MPV 9.0 L Immature Gran % (Auto) 0.4 Neut % (Auto) 72.5 Lymph % (Auto) 19.6 L [place] % (Auto) 6.1 Eos % (Auto) 1.0 Baso % (Auto) 0.4 Lymph # (Auto) 2.4 [place] # (Auto) 0.8 Eos # (Auto) 0.1 Baso # (Auto) 0.1 Abs Immat Gran (auto) 0.05 H Absolute Neuts (auto) 9.0 H Absolute Nucleated RBC 0.000 Nucleated RBC % (auto) 0.0 PT 12.4 INR 1.0 Sodium 139 Potassium 3.7 Chloride 101 Carbon Dioxide 26 Anion Gap 16 BUN 13 Creatinine 0.78 Estim Creat Clear Calc 87.6 Estimated GFR > 60 POC Glucose Random Glucose 102 Calcium 9.8 Magnesium 1.4 L* Total Bilirubin 0.2 AST 20 ALT 15 Alkaline Phosphatase 88 Total Protein 7.3 Albumin 4.2 Urine Color Yellow Urine Appearance Clear Urine pH 8.5 Ur Specific [place] 1.010 Urine Protein Negative Urine Glucose (UA) Negative Urine Ketones Negative Urine Blood Negative Urine Nitrite Negative Ur Leukocyte Esterase Negative Urine Opiates Screen POSITIVE H Ur Buprenorphine Scrn Positive H Ur Oxycodone Screen Not Detected Urine Methadone Screen Not Detected Urine Fentanyl Screen POSITIVE H Ur Barbiturates Screen Not Detected Ur Phencyclidine Scrn Not Detected Ur Amphetamines Screen Not Detected U Benzodiazepines Scrn Not Detected Urine Cocaine Screen Not Detected U Marijuana (THC) Screen Not Detected 01/14/24 01/14/24 01/14/24 07:05 11:33 16:11 WBC RBC Hgb Hct MCV MCH MCHC RDW Plt Count MPV Immature Gran % (Auto) Neut % (Auto) Lymph % (Auto) [place] % (Auto) Eos % (Auto) Baso % (Auto) Lymph # (Auto) [place] # (Auto) Eos # (Auto) Baso # (Auto) Abs Immat Gran (auto) Absolute Neuts (auto) Absolute Nucleated RBC Nucleated RBC % (auto) PT INR Sodium Potassium Chloride Carbon Dioxide Anion Gap BUN Creatinine Estim Creat Clear Calc Estimated GFR POC Glucose 104 162 H 116 H Random Glucose Calcium Magnesium Total Bilirubin AST ALT Alkaline Phosphatase Total Protein Albumin Urine Color Urine Appearance Urine pH Ur Specific [place] Urine Protein Urine Glucose (UA) Urine Ketones Urine Blood Urine Nitrite Ur Leukocyte Esterase Urine Opiates Screen Ur Buprenorphine Scrn Ur Oxycodone Screen Urine Methadone Screen Urine Fentanyl Screen Ur Barbiturates Screen Ur Phencyclidine Scrn Ur Amphetamines Screen U Benzodiazepines Scrn Urine Cocaine Screen U Marijuana (THC) Screen 01/14/24 20:19 WBC RBC Hgb Hct MCV MCH MCHC RDW Plt Count MPV Immature Gran % (Auto) Neut % (Auto) Lymph % (Auto) [place] % (Auto) Eos % (Auto) Baso % (Auto) Lymph # (Auto) [place] # (Auto) Eos # (Auto) Baso # (Auto) Abs Immat Gran (auto) Absolute Neuts (auto) Absolute Nucleated RBC Nucleated RBC % (auto) PT INR Sodium Potassium Chloride Carbon Dioxide Anion Gap BUN Creatinine Estim Creat Clear Calc Estimated GFR POC Glucose 157 H Random Glucose Calcium Magnesium Total Bilirubin AST ALT Alkaline Phosphatase Total Protein Albumin Urine Color Urine Appearance Urine pH Ur Specific [place] Urine Protein Urine Glucose (UA) Urine Ketones Urine Blood Urine Nitrite Ur Leukocyte Esterase Urine Opiates Screen Ur Buprenorphine Scrn Ur Oxycodone Screen Urine Methadone Screen Urine Fentanyl Screen Ur Barbiturates Screen Ur Phencyclidine Scrn Ur Amphetamines Screen U Benzodiazepines Scrn Urine Cocaine Screen U Marijuana (THC) Screen Imaging Radiology Impressions: ITS Impressions Lumbar Spine MRI 01/14/24 12:25 FINDINGS/IMPRESSION: Nondiagnostic/incomplete MRI of the lumbar spine. The patient could not tolerate this study due to pain. - Redemonstration of an acute appearing L1 vertebral body burst fracture associated with slight upper endplate retropulsion and buckling of the anterior longitudinal ligament. No fluid sensitive STIR series was obtained for this study to definitively age this fracture. - At L2-L3, and annular disc bulge and severe bilateral facet arthropathy and ligamentum flavum thickening result in suspected moderate to severe central canal stenosis, severe bilateral subarticular zone stenosis with compression of the traversing L3 nerve roots bilaterally, and a left lateral disc osteophyte protrusion results in moderate to severe left foraminal stenosis with mass effect on the exiting left L2 nerve root. - At L3-L4, there are right greater than left lateral disc protrusions resulting in severe right and moderate left foraminal stenosis with compression of the foraminal and extraforaminal segments of the exiting right L3 nerve root. - At L4-L5, a diffuse annular disc bulge associated with an annular fissure as well as severe bilateral facet arthropathy and ligamentum flavum thickening result in moderate to severe central canal stenosis, severe bilateral subarticular zone stenosis with compression of the traversing L5 nerve roots bilaterally, and moderate to severe bilateral foraminal stenosis with mass effect on the exiting L4 nerve roots bilaterally. - Partially imaged bilateral adrenal masses, better characterized on recent abdominal CT imaging. Mental Status Exam Mental Status Exam Patient Appearance: Appropriate Level of Consciousness: Awake, Appropriate and Alert Medications Medications Current Medications Acetaminophen (Acetaminophen 325 Mg Tablet) 975 mg PO TID [facility] Last Admin: 01/14/24 20:18 Dose: 975 mg Amlodipine Besylate (Amlodipine Besylate 10 Mg Tablet) 10 mg PO DAILY [facility]; Protocol Last Admin: 01/14/24 09:02 Dose: 10 mg Atorvastatin Calcium (Atorvastatin Calcium 40 Mg Tablet) 40 mg PO BEDTIME [facility] Last Admin: 01/14/24 20:19 Dose: 40 mg Cyclobenzaprine HCl (Cyclobenzaprine Hcl 10 Mg Tablet) 10 mg PO BEDTIME [facility] Last Admin: 01/14/24 20:20 Dose: 10 mg Dorzolamide/Timolol (Dorzolamide/Timolo 2.23%/0.68% 10 Ml Drbtl) 1 drop EYE-LEFT BID [facility] Fluticasone Propionate (Fluticasone Propionate 100 Mcg Blst.W.Dev) 1 puff INHALE RBID [facility] Glipizide (Glipizide Xl 5 Mg Tab.Er.24) 5 mg PO DAILY@0730 [facility] Last Admin: 01/14/24 09:04 Dose: Not Given Glucose (Glucose Gel 15 Gm Gel..Gram.) 15 gm PO Q15M PRN; Protocol PRN Reason: per Hypoglycemia Standing Ord. Heparin Sodium (Porcine) (Heparin Sodium,Porcine 5,000 Unit/Ml Vial) 5,000 unit SUBCUT Q8H [facility] Last Admin: 01/14/24 16:05 Dose: 5,000 unit Hydromorphone HCl (Hydromorphone Hcl 1 Mg/Ml Syringe) 1 mg IVPUSH Q3H PRN; Protocol PRN Reason: Pain, Severe (Pain Scale 7-10) Last Admin: 01/14/24 20:15 Dose: 1 mg Dextrose (D10) 250 mls @ 750 mls/hr IV Q15M PRN; Protocol PRN Reason: per Hypoglycemia Standing Ord. Ibuprofen (Ibuprofen 600 Mg Tablet) 600 mg PO TID [facility] Stop: 01/16/24 09:01 Last Admin: 01/14/24 20:21 Dose: 600 mg Insulin Human Lispro (Insulin Lispro 100 Unit/Ml 3 Ml Vial) 0 unit SUBCUT QIDACHS [facility]; Protocol Last Admin: 01/14/24 16:21 Dose: Not Given Lisinopril (Lisinopril 40 Mg Tablet) 40 mg PO BID [facility]; Protocol Last Admin: 01/14/24 20:19 Dose: 40 mg Metformin HCl (Metformin Hcl 1,000 Mg Tablet) 1,000 mg PO BID [facility] Last Admin: 01/14/24 20:21 Dose: 1,000 mg Metoprolol Succinate (Metoprolol Succinate Er 25 Mg Tab.Er.24h) 25 mg PO DAILY [facility]; Protocol Last Admin: 01/14/24 09:05 Dose: 25 mg Olanzapine (Olanzapine 5 Mg Tablet) 5 mg PO BEDTIME [facility] Last Admin: 01/14/24 20:22 Dose: 5 mg Omeprazole (Omeprazole 20 Mg Capsule.Dr) 20 mg PO DAILY@0630 [facility] Last Admin: 01/14/24 08:18 Dose: 20 mg Oxycodone HCl (Oxycodone Hcl Immed Release 5 Mg Tablet) 5 mg PO Q6H PRN PRN Reason: Pain, Moderate(Pain Scale 4-6) Last Admin: 01/14/24 16:04 Dose: 5 mg Sodium Chloride (0.9 % Sodium Chloride Flush 3 Ml Syringe) 3 ml IVFLUSH QSHIFT [facility] Last Admin: 01/14/24 14:45 Dose: 3 ml Trazodone HCl (Trazodone Hcl 100 Mg Tablet) 100 mg PO BEDTIME [facility] Last Admin: 01/14/24 20:18 Dose: 100 mg Trazodone HCl (Trazodone Hcl 100 Mg Tablet) 300 mg PO BEDTIME [facility] Last Admin: 01/14/24 20:18 Dose: 300 mg Allergies Allergies Allergy/AdvReac Type Severity Reaction Status Date / Time No Known Allergies Allergy Verified 01/13/24 21:15 Assessment & Plan Assessment & Plan (1) Opioid use disorder: Status: Acute Code(s): F11.90 - Opioid use, unspecified, uncomplicated Plan already on suboxone and connected to community provider denies any current substance use, so challenging to provide any support--some overdose prevention education provided no additional recommendations at this time--please reconsult if needed Total time managing care of this patient today _20___ minutes. PMFSH Past Medical History Medical History Left against medical advice Post-traumatic arthritis of left ankle History of fracture of left ankle COPD (chronic obstructive pulmonary disease) Opioid dependence Hypertension Prepatellar bursitis, left knee CAD (coronary artery disease) Diabetes mellitus JAUN (obstructive sleep apnea) COPD (chronic obstructive pulmonary disease) Genital herpes Opioid dependence on agonist therapy Anxiety History of adenomatous polyp of colon Chronic constipation GERD (gastroesophageal reflux disease) Pancreatic abnormality Hypertension Family History Family History Mother No problems noted. Father Liver cancer Surgical History Surgical History S/P hardware removal History of ankle surgery Social History Social History Household Members: Spouse Housing: Apartment Do you presently have visiting nurse or other home services: Yes Unable to assess alcohol history related to: Unknown Alcohol intake: never Comment: Pt refusing bed alarm Patient Tobacco Use Status: Current someday Tobacco user Tobacco use type: Cigarette Cigarettes Per Day: 4 Smoked in Last 30 Days: Yes e-Cigarette/Vaping Use: Currently Using Second Hand Smoke Exposure: No Use of substances other than those prescribed or required for medical reasons: No Substance Use Type: Heroin Currently Displaying Signs/Symptoms of Drug Intoxication Withdrawal: No Advance Directives: Yes Advance Directives on File: Yes Advance Directives Date on File: 01/28/22 Do you have a plan to hurt others: No Plan Nutrition Risks: No Nutritional Risk service: No Current occupational status: retired and disabled Current occupation: right handed
[2024-01-14] MEDS: Fluticasone Propionate 100 MCG BLST.W.DEV 1 PUFF INHALE (21:09)
[2024-01-14] MEDS: Dorzolamide/Timolo 2.23%/0.68% 10 ML DRBTL 1 DROP EYE-LEFT (22:57)
[2024-01-15] VITALS (11 sets, daily range): BP systolic 142–158; BP diastolic 80–92; PULSE 64–96; RESP 12–22; TEMP 36.1–37; O2SAT 92–99
[2024-01-15] MEDS: Heparin Sodium,Porcine 5,000 UNIT/ML VIAL 5000 UNIT SUBCUT ×3 (00:50→17:45)
[2024-01-15] MEDS: 0.9 % Sodium Chloride Flush 3 ML SYRINGE IVFLUSH ×4 (00:51→20:37)
[2024-01-15] MEDS: Omeprazole 20 MG CAPSULE.DR PO (06:02)
[2024-01-15 06:38] LABS: Anion Gap 15 (12-20); Blood Urea Nitrogen 15 mg/dL (9-16); Calcium 9.9 mg/dL (8.4-10.2); Carbon Dioxide 26 mmol/L (22-29); Chloride 99 mmol/L (96-108); Creatinine Clr Calc Pharmacy 82.4; Estimated Glomerular Filt Rate > 60; Glucose Random 127 mg/dL (60-115); Magnesium 1.6 mg/dL (1.6-2.6); Potassium 3.5 mmol/L (3.3-5.1); Sodium 136 mmol/L (135-145)
[2024-01-15 07:57] LABS: Glucose, Whole Blood 137 mg/dL (60-115)
[2024-01-15] MEDS: HYDROmorphone HCl 1 MG/ML SYRINGE IVPUSH ×5 (08:12→21:23)
[2024-01-15] MEDS: Ibuprofen 600 MG TABLET PO ×2 (08:14→14:07)
[2024-01-15] MEDS: Fluticasone Propionate 100 MCG BLST.W.DEV 1 PUFF INHALE ×2 (08:16→20:09)
[2024-01-15] MEDS: Metoprolol Succinate ER 25 MG TAB.ER.24H PO (08:16)
[2024-01-15] MEDS: metFORMIN HCl 1,000 MG TABLET 1000 MG PO ×2 (08:17→20:35)
[2024-01-15] MEDS: amLODIPine Besylate 10 MG TABLET PO (08:17)
[2024-01-15] MEDS: lisinopriL 40 MG TABLET PO ×2 (08:17→20:43)
[2024-01-15] MEDS: glipiZIDE XL 5 MG TAB.ER.24 PO (08:17)
[2024-01-15] MEDS: Acetaminophen 325 MG TABLET 975 MG PO ×3 (08:17→20:33)
[2024-01-15] MEDS: oxyCODONE HCl Immed Release 5 MG TABLET PO ×2 (10:10→17:45)
[2024-01-15] MEDS: ondansetron HCL 4 MG/2 ML VIAL IVPUSH ×2 (10:39→17:45)
[2024-01-15] MEDS: Buprenorphine/Naloxone 8/2 mg FILM 1 FILM SUBLINGUAL ×3 (10:40→20:33)
[2024-01-15 11:56] LABS: Glucose, Whole Blood 162 mg/dL (60-115)
[2024-01-15] MEDS: Insulin Lispro 100 UNIT/ML 3 ML VIAL SUBCUT (12:14)
--- NOTE | 2024-01-15 12:35 | HO.PM.IMPN ---
Subjective Subjective Date of Service: 01/15/24 Interval History: Seen and evaluated this morning Still complaining of pain in his back Denies fever or chills No other overnight evens Review of Systems Review of Systems: Yes all other systems are reviewed and are negative Physical Exam Vital Signs: Vital Signs: Last Vital Signs Temp 97.6 F 01/15/24 08:00 Pulse 96 01/15/24 08:16 Resp 18 01/15/24 10:39 BP 142/80 H 01/15/24 08:17 Pulse Ox 99 01/15/24 08:00 O2 Del Method Room Air 01/15/24 08:00 BMI result Body Mass Index 31.2 Const: Other: Constitutional : Awake, interactive, not in distress Neck : Normal inspection, Supple Cardiovascular : RRR, no JVP, no lower extremity edema Respiratory : good bilateral air entry, no crackles, wheezes or rhonchi Gastrointestinal: soft, lax, Normal bowel sounds, Non tender Skin : Warm, Dry Neurological : Alert & oriented x3, No focal deficit Objective Data Active Medications Acetaminophen (Acetaminophen 325 Mg Tablet) 975 mg PO TID [facility] Last Admin: 01/15/24 08:17 Dose: 975 mg Documented By: CHASIDY Amlodipine Besylate (Amlodipine Besylate 10 Mg Tablet) 10 mg PO DAILY [facility]; Protocol Last Admin: 01/15/24 08:17 Dose: 10 mg Documented By: CHASIDY Atorvastatin Calcium (Atorvastatin Calcium 40 Mg Tablet) 40 mg PO BEDTIME [facility] Last Admin: 01/14/24 20:19 Dose: 40 mg Documented By: ELIAN Buprenorphine/Naloxone (Buprenorphine/Naloxone 8/2 Mg Film) 1 film SUBLINGUAL TID [facility] Last Admin: 01/15/24 10:40 Dose: 1 film Documented By: CHASIDY Cyclobenzaprine HCl (Cyclobenzaprine Hcl 10 Mg Tablet) 10 mg PO BEDTIME [facility] Last Admin: 01/14/24 20:20 Dose: 10 mg Documented By: ELIAN Dorzolamide/Timolol (Dorzolamide/Timolo 2.23%/0.68% 10 Ml Drbtl) 1 drop EYE-LEFT BID [facility] Last Admin: 01/15/24 08:18 Dose: Not Given Documented By: CHASIDY Non-Admin Reason: Patient Refused Fluticasone Propionate (Fluticasone Propionate 100 Mcg Blst.W.Dev) 1 puff INHALE RBID [facility] Last Admin: 01/15/24 08:16 Dose: 1 puff Documented By: ANTOINETTE Glipizide (Glipizide Xl 5 Mg Tab.Er.24) 5 mg PO DAILY@0730 [facility] Last Admin: 01/15/24 08:17 Dose: 5 mg Documented By: COTEMA Glucose (Glucose Gel 15 Gm Gel..Gram.) 15 gm PO Q15M PRN; Protocol PRN Reason: per Hypoglycemia Standing Ord. Heparin Sodium (Porcine) (Heparin Sodium,Porcine 5,000 Unit/Ml Vial) 5,000 unit SUBCUT Q8H [facility] Last Admin: 01/15/24 08:17 Dose: 5,000 unit Documented By: COTEMA Hydromorphone HCl (Hydromorphone Hcl 1 Mg/Ml Syringe) 1 mg IVPUSH Q3H PRN; Protocol PRN Reason: Pain, Severe (Pain Scale 7-10) Dextrose (D10) 250 mls @ 750 mls/hr IV Q15M PRN; Protocol PRN Reason: per Hypoglycemia Standing Ord. Ibuprofen (Ibuprofen 600 Mg Tablet) 600 mg PO TID [facility] Stop: 01/17/24 15:01 Last Admin: 01/15/24 08:14 Dose: 600 mg Documented By: ELLIEEMA Insulin Human Lispro (Insulin Lispro 100 Unit/Ml 3 Ml Vial) 0 unit SUBCUT QIDACHS [facility]; Protocol Last Admin: 01/15/24 12:14 Dose: 2 unit Documented By: COTEMA Lisinopril (Lisinopril 40 Mg Tablet) 40 mg PO BID [facility]; Protocol Last Admin: 01/15/24 08:17 Dose: 40 mg Documented By: COTEMA Metformin HCl (Metformin Hcl 1,000 Mg Tablet) 1,000 mg PO BID [facility] Last Admin: 01/15/24 08:17 Dose: 1,000 mg Documented By: COTEMA Metoprolol Succinate (Metoprolol Succinate Er 25 Mg Tab.Er.24h) 25 mg PO DAILY [facility]; Protocol Last Admin: 01/15/24 08:16 Dose: 25 mg Documented By: COTEMA Olanzapine (Olanzapine 5 Mg Tablet) 5 mg PO BEDTIME [facility] Last Admin: 01/14/24 20:22 Dose: 5 mg Documented By: ELIAN Omeprazole (Omeprazole 20 Mg Capsule.) 20 mg PO DAILY@0630 [facility] Last Admin: 01/15/24 06:02 Dose: 20 mg Documented By: ELIAN Ondansetron HCl (Ondansetron Hcl 4 Mg/2 Ml Vial) 4 mg IVPUSH Q6H PRN PRN Reason: Nausea and Vomiting Last Admin: 01/15/24 10:39 Dose: 4 mg Documented By: COTEMA Oxycodone HCl (Oxycodone Hcl Immed Release 5 Mg Tablet) 5 mg PO Q6H [facility] Last Admin: 01/15/24 12:11 Dose: Not Given Documented By: COTSHAVON Non-Admin Reason: Previously Administered Sodium Chloride (0.9 % Sodium Chloride Flush 3 Ml Syringe) 3 ml IVFLUSH QSHIFT [facility] Last Admin: 01/15/24 08:12 Dose: 3 ml Documented By: CHASIDY Trazodone HCl (Trazodone Hcl 100 Mg Tablet) 100 mg PO BEDTIME [facility] Last Admin: 01/14/24 20:18 Dose: 100 mg Documented By: ELIAN Trazodone HCl (Trazodone Hcl 100 Mg Tablet) 300 mg PO BEDTIME [facility] Last Admin: 01/14/24 20:18 Dose: 300 mg Documented By: ELIAN Labs 01/14/24 00:17 01/15/24 05:45 Labs: Laboratory Results - last 24 hr 01/14/24 01/14/24 01/15/24 16:11 20:19 05:45 Hold Purple Top SEE NOTE Anion Gap 15 Estim Creat Clear Calc 82.4 Estimated GFR > 60 POC Glucose 116 H 157 H Random Glucose 127 H Calcium 9.9 Magnesium 1.6 01/15/24 01/15/24 07:51 11:36 Hold Purple Top Anion Gap Estim Creat Clear Calc Estimated GFR POC Glucose 137 H 162 H Random Glucose Calcium Magnesium Assessment and Plan (1) Intractable back pain: Status: Acute (2) Closed compression fracture of body of L1 vertebra: Status: Acute Plan Rosie Garza is a 73 y/o man presents with: # Intractable back pain secondary to L1 compression fracture. pain control with: NSAIDs, Tylenol, Lidoderm patch and IV Dilaudid as needed. Laxatives IR consult for kyphoplasty; MRI done, IR to decide if Kyphoplasty needed and timing of it Start PT # Hypomagnesemia. Repleted monitor magnesium level. # Type 2 diabetes mellitus. BG checks before meals at bedtime. Diabetic diet. Continue glipizide. Insulin sliding scale. # Opiate use disorder. Continue Suboxone. # Essential hypertension. Continue metoprolol and amlodipine. # Hyperlipidemia. Continue statin. # Heroin use, inhaled. Addiction medicine consult. # BPH. Continue tamsulosin. # GERD. Continue omeprazole. # Mood disorder. Continue olanzapine. Code status: Full DVT prophylaxis: SCDs Quality Stroke Does the patient have a stroke diagnosis?: No VTE Prior VTE?: No VTE Risk Level:: Medical - moderate - high VTE Device Contraindication: Treatment Not Indicated VTE Drug Contraindication: N/A - Med Ordered
[2024-01-15] MEDS: Lactulose 20 GM/30 ML SOLUTION 30 GM PO ×3 (12:45→20:33)
[2024-01-15 16:17] LABS: Glucose, Whole Blood 142 mg/dL (60-115)
[2024-01-15 20:25] LABS: Glucose, Whole Blood 143 mg/dL (60-115)
[2024-01-15] MEDS: traZODone HCL 100 MG TABLET 300 MG PO (20:34)
[2024-01-15] MEDS: Atorvastatin Calcium 40 MG TABLET PO (20:35)
[2024-01-15] MEDS: OLANZapine 5 MG TABLET PO (20:35)
[2024-01-15] MEDS: Cyclobenzaprine HCl 10 MG TABLET PO (20:35)
[2024-01-15] MEDS: traZODone HCL 100 MG TABLET PO (20:36)
[2024-01-15] MEDS: Dorzolamide/Timolo 2.23%/0.68% 10 ML DRBTL 1 DROP EYE-LEFT (20:36)
[2024-01-16] VITALS (10 sets, daily range): BP systolic 130–165; BP diastolic 71–88; PULSE 74–79; RESP 14–19; TEMP 36.2–37; O2SAT 94–97
[2024-01-16] MEDS: oxyCODONE HCl Immed Release 5 MG TABLET PO ×3 (00:44→11:29)
[2024-01-16] MEDS: Heparin Sodium,Porcine 5,000 UNIT/ML VIAL 5000 UNIT SUBCUT ×2 (00:44→08:39)
[2024-01-16] MEDS: Omeprazole 20 MG CAPSULE.DR PO (06:01)
[2024-01-16] MEDS: Fluticasone Propionate 100 MCG BLST.W.DEV 1 PUFF INHALE ×2 (07:21→19:45)
[2024-01-16 07:34] LABS: Glucose, Whole Blood 142 mg/dL (60-115)
[2024-01-16] MEDS: lisinopriL 40 MG TABLET PO ×2 (08:38→20:55)
[2024-01-16] MEDS: Acetaminophen 325 MG TABLET 975 MG PO ×3 (08:38→20:57)
[2024-01-16] MEDS: amLODIPine Besylate 10 MG TABLET PO (08:38)
[2024-01-16] MEDS: Buprenorphine/Naloxone 8/2 mg FILM 1 FILM SUBLINGUAL ×3 (08:38→20:57)
[2024-01-16] MEDS: HYDROmorphone HCl 1 MG/ML SYRINGE IVPUSH ×4 (08:39→21:07)
[2024-01-16] MEDS: 0.9 % Sodium Chloride Flush 3 ML SYRINGE IVFLUSH ×3 (08:39→21:00)
[2024-01-16] MEDS: Metoprolol Succinate ER 25 MG TAB.ER.24H PO (08:39)
[2024-01-16] MEDS: glipiZIDE XL 5 MG TAB.ER.24 PO (08:39)
[2024-01-16] MEDS: metFORMIN HCl 1,000 MG TABLET 1000 MG PO ×2 (08:39→20:55)
[2024-01-16] MEDS: Lactulose 20 GM/30 ML SOLUTION 30 GM PO ×2 (08:39→14:59)
[2024-01-16] MEDS: ondansetron HCL 4 MG/2 ML VIAL IVPUSH (08:39)
[2024-01-16] MEDS: Dorzolamide/Timolo 2.23%/0.68% 10 ML DRBTL 1 DROP EYE-LEFT ×2 (08:45→21:30)
[2024-01-16 11:07] LABS: Glucose, Whole Blood 161 mg/dL (60-115)
[2024-01-16] MEDS: Insulin Lispro 100 UNIT/ML 3 ML VIAL SUBCUT ×2 (11:30→20:58)
[2024-01-16] MEDS: Docusate Sodium 100 MG CAPSULE 200 MG PO (11:30)
[2024-01-16] MEDS: polyethylene glycoL 3350 17 GM POWD.PACK PO (11:30)
--- NOTE | 2024-01-16 13:01 | P.PNIM_ITS ---
Subjective Subjective Date of Service: 01/16/24 Interval History: Seen and evaluated this morning Still complaining of pain in his back and constipation Denies fever or chills No other overnight evens Review of Systems Review of Systems: Yes all other systems are reviewed and are negative Physical Exam 2 Vital Signs: Vital Signs: Last Vital Signs Temp 98.6 F 01/16/24 07:21 Pulse 76 01/16/24 08:39 Resp 19 01/16/24 08:39 BP 165/88 H 01/16/24 08:39 Pulse Ox 94 01/16/24 07:21 O2 Del Method Room Air 01/16/24 07:21 BMI result Body Mass Index 31.2 Const: Other: Constitutional : Awake, interactive, not in distress Neck : Normal inspection, Supple Cardiovascular : RRR, no JVP, no lower extremity edema Respiratory : good bilateral air entry, no crackles, wheezes or rhonchi Gastrointestinal: soft, lax, Normal bowel sounds, Non tender Skin : Warm, Dry Neurological : Alert & oriented x3, No focal deficit Objective Data Active Medications Acetaminophen (Acetaminophen 325 Mg Tablet) 975 mg PO TID [facility] Last Admin: 01/16/24 08:38 Dose: 975 mg Documented By: COTEMA Amlodipine Besylate (Amlodipine Besylate 10 Mg Tablet) 10 mg PO DAILY [facility]; Protocol Last Admin: 01/16/24 08:38 Dose: 10 mg Documented By: COTEMA Atorvastatin Calcium (Atorvastatin Calcium 40 Mg Tablet) 40 mg PO BEDTIME [facility] Last Admin: 01/15/24 20:35 Dose: 40 mg Documented By: AIDE Buprenorphine/Naloxone (Buprenorphine/Naloxone 8/2 Mg Film) 1 film SUBLINGUAL TID [facility] Last Admin: 01/16/24 08:38 Dose: 1 film Documented By: COTEMA Cyclobenzaprine HCl (Cyclobenzaprine Hcl 10 Mg Tablet) 10 mg PO BEDTIME [facility] Last Admin: 01/15/24 20:35 Dose: 10 mg Documented By: LYSRudolph Docusate Sodium (Docusate Sodium 100 Mg Capsule) 200 mg PO BID [facility] Last Admin: 01/16/24 11:30 Dose: 200 mg Documented By: COTEMA Dorzolamide/Timolol (Dorzolamide/Timolo 2.23%/0.68% 10 Ml Drbtl) 1 drop EYE- LEFT BID [facility] Last Admin: 01/16/24 08:45 Dose: 1 drop Documented By: ELLIEEMA Fluticasone Propionate (Fluticasone Propionate 100 Mcg Blst.W.Dev) 1 puff INHALE RBID [facility] Last Admin: 01/16/24 07:21 Dose: 1 puff Documented By: BLASCL Glipizide (Glipizide Xl 5 Mg Tab.Er.24) 5 mg PO DAILY@0730 [facility] Last Admin: 01/16/24 08:39 Dose: 5 mg Documented By: CHASIDY Glucose (Glucose Gel 15 Gm Gel..Gram.) 15 gm PO Q15M PRN; Protocol PRN Reason: per Hypoglycemia Standing Ord. Heparin Sodium (Porcine) (Heparin Sodium,Porcine 5,000 Unit/Ml Vial) 5,000 unit SUBCUT Q8H [facility] Last Admin: 01/16/24 08:39 Dose: 5,000 unit Documented By: ELLIEEMA Hydromorphone HCl (Hydromorphone Hcl 1 Mg/Ml Syringe) 1 mg IVPUSH Q3H PRN; Protocol PRN Reason: Pain, Severe (Pain Scale 7-10) Last Admin: 01/16/24 08:39 Dose: 1 mg Documented By: CHASIDY Dextrose (D10) 250 mls @ 750 mls/hr IV Q15M PRN; Protocol PRN Reason: per Hypoglycemia Standing Ord. Ibuprofen (Ibuprofen 600 Mg Tablet) 600 mg PO TID [facility] Stop: 01/17/24 15:01 Last Admin: 01/16/24 07:07 Dose: Not Given Documented By: CHASIDY Non-Admin Reason: Nausea Insulin Human Lispro (Insulin Lispro 100 Unit/Ml 3 Ml Vial) 0 unit SUBCUT QIDACHS [facility]; Protocol Last Admin: 01/16/24 11:30 Dose: 2 unit Documented By: COTEMA Lactulose (Lactulose 20 Gm/30 Ml Solution) 30 gm PO TID [facility] Last Admin: 01/16/24 08:39 Dose: 30 gm Documented By: COTEMA Lisinopril (Lisinopril 40 Mg Tablet) 40 mg PO BID [facility]; Protocol Last Admin: 01/16/24 08:38 Dose: 40 mg Documented By: ELLIEEMA Metformin HCl (Metformin Hcl 1,000 Mg Tablet) 1,000 mg PO BID [facility] Last Admin: 01/16/24 08:39 Dose: 1,000 mg Documented By: COTEMA Metoprolol Succinate (Metoprolol Succinate Er 25 Mg Tab.Er.24h) 25 mg PO DAILY [facility]; Protocol Last Admin: 01/16/24 08:39 Dose: 25 mg Documented By: COTEMA Olanzapine (Olanzapine 5 Mg Tablet) 5 mg PO BEDTIME [facility] Last Admin: 01/15/24 20:35 Dose: 5 mg Documented By: AIDE Omeprazole (Omeprazole 20 Mg Capsule.Dr) 20 mg PO DAILY@0630 [facility] Last Admin: 01/16/24 06:01 Dose: 20 mg Documented By: AIDE Ondansetron HCl (Ondansetron Hcl 4 Mg/2 Ml Vial) 4 mg IVPUSH Q6H PRN PRN Reason: Nausea and Vomiting Last Admin: 01/16/24 08:39 Dose: 4 mg Documented By: COTEMA Oxycodone HCl (Oxycodone Hcl Immed Release 5 Mg Tablet) 5 mg PO Q6H [facility] Last Admin: 01/16/24 11:29 Dose: 5 mg Documented By: COTEMA Polyethylene Glycol (Polyethylene Glycol 3350 17 Gm Powd.Pack) 17 gm PO BID [facility] Last Admin: 01/16/24 11:30 Dose: 17 gm Documented By: COTEMA Sodium Chloride (0.9 % Sodium Chloride Flush 3 Ml Syringe) 3 ml IVFLUSH QSHIFT [facility] Last Admin: 01/16/24 08:39 Dose: 3 ml Documented By: COTEMA Trazodone HCl (Trazodone Hcl 100 Mg Tablet) 100 mg PO BEDTIME [facility] Last Admin: 01/15/24 20:36 Dose: 100 mg Documented By: AIDE Trazodone HCl (Trazodone Hcl 100 Mg Tablet) 300 mg PO BEDTIME [facility] Last Admin: 01/15/24 20:34 Dose: 300 mg Documented By: AIDE Labs 01/14/24 00:17 01/15/24 05:45 Labs: Laboratory Results - last 24 hr 01/15/24 01/15/24 01/16/24 15:58 20:16 07:19 POC Glucose 142 H 143 H 142 H 01/16/24 11:00 POC Glucose 161 H Assessment and Plan (1) Intractable back pain: Status: Acute (2) Closed compression fracture of body of L1 vertebra: Status: Acute Plan Rosie Garza is a 73 y/o man presents with: # Intractable back pain secondary to L1 compression fracture. pain control with: NSAIDs, Tylenol, Lidoderm patch and ATC Oxycodone PRN IV Dilaudid as needed. IR consult for kyphoplasty; MRI done, IR to decide if Kyphoplasty needed and timing of it PT as tolerated # Hypomagnesemia. Repleted monitor magnesium level. # Constipation Colace, Lactulose # Type 2 diabetes mellitus. POC. Diabetic diet. Continue glipizide, Metformin. Insulin sliding scale. # Opiate use disorder. Continue Suboxone. # Essential hypertension. Continue metoprolol and amlodipine. # Hyperlipidemia. Continue statin. # Heroin use, inhaled. Addiction medicine consult. # BPH. Continue tamsulosin. # GERD. Continue omeprazole. # Mood disorder. Continue olanzapine. Code status: Full DVT prophylaxis: SCDs Quality Stroke Does the patient have a stroke diagnosis?: No VTE Prior VTE?: No VTE Risk Level:: Medical - moderate - high VTE Device Contraindication: Treatment Not Indicated VTE Drug Contraindication: N/A - Med Ordered
[2024-01-16 16:17] LABS: Glucose, Whole Blood 128 mg/dL (60-115)
[2024-01-16] MEDS: oxyCODONE HCl Immed Release 5 MG TABLET 10 MG PO (19:05)
[2024-01-16 20:09] LABS: Glucose, Whole Blood 208 mg/dL (60-115)
[2024-01-16] MEDS: OLANZapine 5 MG TABLET PO (20:56)
[2024-01-16] MEDS: Atorvastatin Calcium 40 MG TABLET PO (20:56)
[2024-01-16] MEDS: traZODone HCL 100 MG TABLET 300 MG PO (20:56)
[2024-01-16] MEDS: traZODone HCL 100 MG TABLET PO (20:56)
[2024-01-16] MEDS: Cyclobenzaprine HCl 10 MG TABLET PO (20:56)
[2024-01-17] MEDS: oxyCODONE HCl Immed Release 5 MG TABLET 10 MG PO ×3 (00:06→12:03)
[2024-01-17] MEDS: Heparin Sodium,Porcine 5,000 UNIT/ML VIAL 5000 UNIT SUBCUT ×2 (00:09→08:09)
[2024-01-17] MEDS: HYDROmorphone HCl 1 MG/ML SYRINGE IVPUSH ×3 (00:12→16:21)
[2024-01-17 02:41] VITALS: BP 145/79; PULSE 74; RESP 16; TEMP 36.1; O2SAT 96
[2024-01-17] MEDS: Omeprazole 20 MG CAPSULE.DR PO (06:21)
[2024-01-17 07:30] VITALS: BP 155/85; PULSE 80; RESP 16; TEMP 36.3; O2SAT 95
[2024-01-17 07:35] LABS: Glucose, Whole Blood 165 mg/dL (60-115)
[2024-01-17] MEDS: Fluticasone Propionate 100 MCG BLST.W.DEV 1 PUFF INHALE (07:40)
[2024-01-17 07:41] VITALS: PULSE 78; RESP 16; O2SAT 93
[2024-01-17] MEDS: Lactulose 20 GM/30 ML SOLUTION 30 GM PO (08:09)
[2024-01-17 08:10] VITALS: BP 155/85; PULSE 78
[2024-01-17] MEDS: lisinopriL 40 MG TABLET PO (08:10)
[2024-01-17] MEDS: Metoprolol Succinate ER 25 MG TAB.ER.24H PO (08:10)
[2024-01-17] MEDS: metFORMIN HCl 1,000 MG TABLET 1000 MG PO (08:10)
[2024-01-17] MEDS: Acetaminophen 325 MG TABLET 975 MG PO ×2 (08:10→14:33)
[2024-01-17] MEDS: amLODIPine Besylate 10 MG TABLET PO (08:10)
[2024-01-17] MEDS: 0.9 % Sodium Chloride Flush 3 ML SYRINGE IVFLUSH ×2 (08:11→14:33)
[2024-01-17] MEDS: Insulin Lispro 100 UNIT/ML 3 ML VIAL SUBCUT (08:19)
[2024-01-17] MEDS: glipiZIDE XL 5 MG TAB.ER.24 PO (08:19)
[2024-01-17] MEDS: Buprenorphine/Naloxone 8/2 mg FILM 1 FILM SUBLINGUAL ×2 (09:09→14:33)
--- NOTE | 2024-01-17 10:55 | P.DS_ITS ---
DS: Providers Provider Date of Service: 01/27/24 Date of admission: 01/14/24 09:32 Primary care physician: Unknown Physician Consults: 01/14/24 02:59 Addiction Medicine Routine Consulting Provider: Addiction Covering Reason for consultation: Heroin use Has provider been notified: No DS: Diagnosis Discharge Diagnosis (1) Intractable back pain: Status: Resolved (2) Closed compression fracture of body of L1 vertebra: Status: Acute (3) Impaired mobility: Status: Acute DS: Summary Hospital Course Hospital Course: Admission note HPI Rosie Garza is a 73 years old man with past medical history significant for essential hypertension, opiate use disorder on Suboxone and type 2 diabetes mellitus presents to the emergency department complaining of worsening lower back pain over the last several weeks. He denied associated symptoms such as leg numbness, pain with urination, nausea, vomiting, diarrhea, fevers or chills. He sustained a fall at the beginning of this month. At that time he was seen in the emergency department and underwent an abdominal pelvis CT scan that showed a compression fracture to L1. He stated that he was discharged on morphine but this is not helping. He also admit that he has been inhaling heroin. Cardiopulmonary, gastrointestinal genitourinary symptoms were not reported. He inhales heroin. Denies alcohol abuse or tobacco smoking. In the ED, he was found to have stable vital signs. Blood workup was remarkable for leukocytosis of 12.4. Hemoglobin is at baseline. Platelets are normal. There are no electrolyte imbalances except for hypomagnesemia of 1.4. LFTs are normal. Chart review: Abdomen pelvis CT scan with IV contrast, January 05, 2024 showed compression deformity of the L1 vertebrae (new), diverticulosis unstable bilateral adrenal masses (adenomas), and trace pericardial effusion. ED Tx: Dilaudid 2 mg IV, Zofran 4 mg IV. Hospital course # Intractable back pain secondary to L1 compression fracture. pain partially controlled with NSAIDs, Tylenol, Lidoderm patch and ATC Oxycodone. He was on PRN IV Dilaudid as needed that was weaned down during hospital stay. IR consulted for kyphoplasty as MRI was done as below. IR to follow with him as outpatient for Kyphoplasty which is scheduled prior to discharge on 01/19 afternoon. He had PT as tolerated and will be followed by [facility] at home for therapy. # Hypomagnesemia. Repleted # Constipation. Discharge on Miralax and Lactulose as he moved his bowels while inpatient. Discharge plan Take Tylenol and Advil 3 times a day for the next week then continue with Tylenol Oxycodone Every 6-8 hours as needed for severe pain To follow with Interventional Radiology at [facility] [place] as outpatient for Kyphoplasty procedure 01/19 afternoon. Please contact our radiology department to confirm exact time. Physical therapy at home Time Attestation Discharge Coordination Time (in mins): 38 Quality: Safe Use of Opioids Does Pt have an Active Cancer Diagnosis on the Problem List?: No Quality: Stroke Does the patient have a stroke diagnosis?: No Physical Exam Vital Signs: Vital Signs: Last Vital Signs Temp 97.3 F 01/17/24 07:30 Pulse 78 01/17/24 08:10 Resp 16 01/17/24 07:41 BP 155/85 H 01/17/24 08:10 Pulse Ox 95 01/17/24 07:30 O2 Del Method Room Air 01/17/24 07:30 BMI result Body Mass Index 31.2 Const: Other: Constitutional : Awake, interactive, not in distress Neck : Normal inspection, Supple Cardiovascular : RRR, no JVP, no lower extremity edema Respiratory : good bilateral air entry, no crackles, wheezes or rhonchi Gastrointestinal: soft, lax, Normal bowel sounds, Non tender Skin : Warm, Dry Neurological : Alert & oriented x3, No focal deficit DS: Data Data Completed and Pending Completed studies during hospitalization [Text1]: Procedures Drainage of Left Foot Skin, External Approach (06/30/22) Immobilization of Left Foot using Splint (01/27/22) Insertion of Infusion Device into Superior Vena Cava, Percutaneous Approach (02/13/22) Removal of Internal Fixation Device from Left Ankle Joint, Open Approach (06/30/22) Reposition Left Fibula with Internal Fixation Device, Open Approach (01/27/22) Reposition Left Tibia with Internal Fixation Device, Open Approach (01/27/22) Ultrasonography of Superior Vena Cava, Guidance (02/13/22) Labs on day of discharge: Laboratory Results - last 24 hr 01/16/24 01/16/24 01/16/24 11:00 16:03 19:18 POC Glucose 161 H 128 H 208 H 01/17/24 07:31 POC Glucose 165 H Imaging Chest x-ray: Radiologist's impression: ITS Impressions Lumbar Spine MRI 01/14/24 12:25 FINDINGS/IMPRESSION: Nondiagnostic/incomplete MRI of the lumbar spine. The patient could not tolerate this study due to pain. - Redemonstration of an acute appearing L1 vertebral body burst fracture associated with slight upper endplate retropulsion and buckling of the anterior longitudinal ligament. No fluid sensitive STIR series was obtained for this study to definitively age this fracture. - At L2-L3, and annular disc bulge and severe bilateral facet arthropathy and ligamentum flavum thickening result in suspected moderate to severe central canal stenosis, severe bilateral subarticular zone stenosis with compression of the traversing L3 nerve roots bilaterally, and a left lateral disc osteophyte protrusion results in moderate to severe left foraminal stenosis with mass effect on the exiting left L2 nerve root. - At L3-L4, there are right greater than left lateral disc protrusions resulting in severe right and moderate left foraminal stenosis with compression of the foraminal and extraforaminal segments of the exiting right L3 nerve root. - At L4-L5, a diffuse annular disc bulge associated with an annular fissure as well as severe bilateral facet arthropathy and ligamentum flavum thickening result in moderate to severe central canal stenosis, severe bilateral subarticular zone stenosis with compression of the traversing L5 nerve roots bilaterally, and moderate to severe bilateral foraminal stenosis with mass effect on the exiting L4 nerve roots bilaterally. - Partially imaged bilateral adrenal masses, better characterized on recent abdominal CT imaging. Discharge Plan Discharge Anticipated Discharge Date/Time: 01/17/24 10:23 Patient Disposition: Home Health Service Discharge Diagnosis: Intractable back pain 2/2 closed compression L1 Referrals: Simin Thurman MD [Physician] - 1 Week Discharge Medications: New polyethylene glycol 3350 17 gram Powder In Packet 17 g PO DAILY Qty: 30 0RF omeprazole 20 mg Capsule,Delayed Release(Dr/Ec) 20 mg PO DAILY@0630 Qty: 30 0RF ibuprofen 600 mg Tablet 600 mg PO TID Qty: 21 0RF oxycodone 5 mg Tablet 10 mg PO Q6H Qty: 40 0RF Rx Instructions: Partial Fill upon patient request. lactulose 20 gram/30 mL Solution 20 g PO BID Qty: 1200 0RF Continued atorvastatin 40 mg tablet 40 mg PO BEDTIME olanzapine 5 mg tablet 5 mg PO BEDTIME glipizide 5 mg tablet extended release 24hr 5 mg PO DAILY trazodone 100 mg tablet 100 mg PO BEDTIME Rx Instructions: TDD = 400 mg amlodipine 10 mg tablet 10 mg PO DAILY trazodone 150 mg tablet 300 mg PO BEDTIME Rx Instructions: TDD = 400 mg metformin 1,000 mg tablet 1,000 mg PO BID omeprazole 20 mg capsule,delayed release(DR/EC) 20 mg PO DAILY@0630 dorzolamide-timolol 22.3-6.8 mg/mL drops 1 drp ophthalmic-Left BID lisinopril 40 mg tablet 40 mg PO BID loratadine 10 mg tablet 10 mg PO DAILY fluticasone propionate [Flovent HFA] 110 mcg/actuation HFA aerosol inhaler 1 puff INHALATION BID PRN (Reason: Shortness Of Breath Or Wheezing) buprenorphine-naloxone 8-2 mg film 1 film sublingual TID latanoprost 0.005 % drops 1 drp ophthalmic-Left BEDTIME omega-3 acid ethyl esters 1 gram capsule 1 cap PO TID Levemir U-100 Insulin 100 unit/mL solution 42 unit subcut BID metoprolol succinate 25 mg tablet extended release 24 hr 25 mg PO QAM acetaminophen 650 mg tablet extended release 650 mg PO Q8H PRN (Reason: mild pain) Arnuity Ellipta 100 mcg/actuation blister with device 1 inh INHALATION DAILY PRN (Reason: Shortness Of Breath Or Wheezing) Discharge Orders: Discharge Order (Routine); Ordered 01/17/24 Ordered By: Riley Agrawal Diet: Advance to usual diet Activity on Discharge: As tolerated Stand Alone Forms: Patient Portal Discharge page Print Language: Upper Sorbian Care Plan Goals: Read below Health Concerns: Read below Plan of Treatment: Read below Assessment: You were admitted for severe back pain from L1 compression fracutre, treated with pain medications with fair response over the course of hospital stay. Take Tylenol and Advil 3 times a day for the next week then continue with Tylenol Oxycodone Every 6-8 hours as needed for severe pain To follow with Interventional Radiology at [facility] [place] as outpatient for Kyphoplasty procedure 01/19 afternoon. Please contact our radiology department to confirm exact time. Physical therapy at home Discharge Date/Time: 01/17/24 18:52
[2024-01-17 11:19] LABS: Glucose, Whole Blood 107 mg/dL (60-115)
--- NOTE | 2024-01-17 12:13 | W.MHC.F2F ---
Service Date Service Date: 01/17/24 Encounter Date of encounter: 01/17/24 Reasons for Services Signs and symptoms assessed: physical deconditioning L1 compression fracture Reason for physical therapy: home safety and mobility and therapeutic exercises Homebound: Leaving the home is medically contraindicated at this time without the asist of a device and/or another person due th the listed conditions above and below. Reason homebound: unsteady gait / fall risk Certification: Based on the above findings, I certify that this patient is confined to the home and needs intermittent half-way care, physical therapy and/or speech therapy, or continues to need occupational therapy. The patient is under my care, and I have initiated the establishment of the plan of care. The patient will be followed by a physician who will periodically review the plan of care. Time Spent With Patient Time: Total time managing care of this patient today ____ minutes.
--- NOTE | 2024-01-17 13:05 | MHC.CM.PN ---
Addendum entered by Debi Donis RN 01/17/24 13:10: PLAN IS HOME WITH RESUMPTION OF A [facility] Original Note: PLAN IS DC HOME TODAY FOLLOWING SCAN. IMM 01/16 IN CHART HE WILL NEED ASSIST WITH TRANSPORT HOME
--- NOTE | 2024-01-17 14:59 | MHC.CM.PN ---
PATIENT REPORTS THAT HE HAS A RIDE HOME AT [place]. HIS DAUGHTER WILL PROVIDE TRANSPORTATION. RN AWARE.
[2024-01-17 16:00] VITALS: BP 143/82; PULSE 65; RESP 18; TEMP 37; O2SAT 97
[2024-01-17 16:44] LABS: Glucose, Whole Blood 74 mg/dL (60-115)
== END 2024-01-17 18:52 | disposition home health service (06) | DRG 552 ==
LOC: HO.ED 01-14 01:29 → HO.EDOVER 01-14 02:11 → HO.S3 01-14 07:45
PROVIDERS: Admitting Provider Internal Medicine; Emergency Provider Internal Medicine; Visit Provider Student in an Organized Health Care Education/Training Program
DX: S32.010A Wedge compression fracture of first lumbar vertebra, initial encounter for closed fracture (principal); F11.20 Opioid dependence, uncomplicated; W19.XXXA Unspecified fall, initial encounter; I25.10 Atherosclerotic heart disease of native coronary artery without angina pectoris; E11.9 Type 2 diabetes mellitus without complications; I10 Essential (primary) hypertension; K59.00 Constipation, unspecified; G89.11 Acute pain due to trauma; E78.5 Hyperlipidemia, unspecified; N40.0 Benign prostatic hyperplasia without lower urinary tract symptoms; K21.9 Gastro-esophageal reflux disease without esophagitis; F39 Unspecified mood [affective] disorder; E83.42 Hypomagnesemia; J44.9 Chronic obstructive pulmonary disease, unspecified; F17.210 Nicotine dependence, cigarettes, uncomplicated; Z71.6 Tobacco abuse counseling; Z79.4 Long term (current) use of insulin; Z79.84 Long term (current) use of oral hypoglycemic drugs; Z79.899 Other long term (current) drug therapy
CPT/HCPCS: 36415; 72148; 78300; 80048; 80053; 80307; 81003; 82947; 83735; 85025; 85610; 94640; 97162; 99285; A9503; J1170; J1644; J2405; J3475

== ENCOUNTER → 2024-01-14 02:03 | Outpatient (BNV) | payer OTHER, SELFPAY | PROVIDERS: Admitting Provider Internal Medicine; Emergency Provider Internal Medicine; Visit Provider Internal Medicine | DX: S32.010A Wedge compression fracture of first lumbar vertebra, initial encounter for closed fracture (principal); M54.9 Dorsalgia, unspecified; Z74.09 Other reduced mobility | CPT/HCPCS: 99222; 99232; 99239; 99499; G0180 ==

== ENCOUNTER → 2024-01-14 09:32 | Outpatient (BNV) | payer OTHER, SELFPAY | PROVIDERS: Admitting Provider Internal Medicine; Emergency Provider Internal Medicine; Visit Provider Nurse Practitioner Psychiatric/Mental Health | DX: F11.90 Opioid use, unspecified, uncomplicated (principal) | CPT/HCPCS: 99221 ==

== ENCOUNTER → 2024-02-02 11:59 | Day surgery (SDC) | payer OTHER, SELFPAY ==
--- NOTE | 2024-01-19 11:53 | HO.ANESPROP2 ---
HPI - Anesthesia Eval Consult details Narrative: Cx'd DOS. Pt did not follow NPO guidelines. 73yo M for Kyphoplasty Daily suboxone - ? concurrent inhaled heroin use, +fentanyl in all previous utox screens EKG changes during December 2023 inpt stay. Reviewed by patient's primary manufacturing engineering director, Dr. Martínez. OK to proceed without further testing. Case reviewed with Dr Coburn. SHARI for eval DOS, no tox screen needed DOS. Known positive. [facility] [place] admit 01/13-01/17/24: Hospital course # Intractable back pain secondary to L1 compression fracture. pain control with: NSAIDs, Tylenol, Lidoderm patch and ATC Oxycodone PRN IV Dilaudid as needed. IR consult for kyphoplasty; MRI done, IR to decide if Kyphoplasty needed and timing of it PT as tolerated # Hypomagnesemia. Repleted # Constipation. Discharge on Miralax and Lactulose PMFSH Active Problems Active Problems: All Active Problems Intractable back pain (Acute) Closed compression fracture of body of L1 vertebra (Acute) Impaired mobility (Acute) Opioid use disorder (Acute) Multiple fractures of ribs (Acute) Esophageal thickening (Acute) Left against medical advice (Acute) Leukocytosis (Acute) TENA (acute kidney injury) (Acute) Chest pain (Acute) Hypotension (Acute) Priapism, drug-induced (Acute) MSSA bacteremia (Acute) MSSA bacteremia (Acute) Hypokalemia (Acute) Gram-positive bacteremia (Acute) Positive blood culture (Acute) Rhabdomyolysis (Acute) Surgical site infection (Acute) Lethargy (Acute) Falls frequently (Acute) COVID-19 (Acute) Hypomagnesemia (Acute) Acute respiratory failure with hypoxia (Acute) Elevated d-dimer (Acute) Syncope and collapse (Acute) TENA (acute kidney injury) (Acute) Vomiting (Acute) Rhabdomyolysis (Acute) Urinary urgency (Acute) Anemia of chronic disease (Acute) Prepatellar bursitis, left knee (Acute) History of adenomatous polyp of colon (Acute) Chronic constipation (Chronic) GERD (gastroesophageal reflux disease) (Acute) Past Medical History Medical History Left against medical advice Post-traumatic arthritis of left ankle History of fracture of left ankle COPD (chronic obstructive pulmonary disease) Opioid dependence Hypertension Prepatellar bursitis, left knee CAD (coronary artery disease) Diabetes mellitus JAUN (obstructive sleep apnea) COPD (chronic obstructive pulmonary disease) Genital herpes Opioid dependence on agonist therapy Anxiety History of adenomatous polyp of colon Chronic constipation GERD (gastroesophageal reflux disease) Pancreatic abnormality Hypertension Family History Family History Mother No problems noted. Father Liver cancer Family history of problems with anesthesia: No Surgical History Surgical History S/P hardware removal History of ankle surgery History of Problems with Anesthesia: No Social History Social History Household Members: Spouse Housing: Apartment Do you presently have visiting nurse or other home services: Yes Unable to assess alcohol history related to: Unknown Alcohol intake: never Comment: Pt refusing bed alarm Patient Tobacco Use Status: Current everyday Tobacco user Tobacco use type: Cigarette Cigarettes Per Day: 3 e-Cigarette/Vaping Use: Currently Using Second Hand Smoke Exposure: No Use of substances other than those prescribed or required for medical reasons: Yes Substance Use Type: Heroin Substance Use Frequency: Weekly Are you DNR?: No Advance Directives: No Advance Directives Information Provided: Yes Advance Directives Date on File: 01/28/22 service: No Current occupational status: retired and disabled Current occupation: right handed Meds Allergies Allergy/AdvReac Type Severity Reaction Status Date / Time No Known Allergies Allergy Verified 01/13/24 21:15 Home Medications ?Medication ?Instructions ?Recorded ?Confirmed ?Last Taken ?Type amlodipine 10 mg tablet 10 mg PO DAILY 02/01/23 01/14/24 06/19/23 History atorvastatin 40 mg tablet 40 mg PO BEDTIME 02/01/23 01/14/24 06/19/23 History buprenorphine 8 mg-naloxone 2 mg 1 film sublingual TID 02/01/23 01/14/24 06/19/23 History sublingual film dorzolamide 22.3 mg-timolol 6.8 1 drp ophthalmic-Left BID 02/01/23 01/14/24 06/19/23 History mg/mL eye drops fluticasone propionate 110 1 puff inhalation BID PRN 02/01/23 01/14/24 06/19/23 History mcg/actuation HFA aerosol inhaler Shortness Of Breath Or Wheezing (Flovent HFA) glipizide 5 mg tablet, extended 5 mg PO DAILY 02/01/23 01/14/24 06/19/23 History release 24 hr lisinopril 40 mg tablet 40 mg PO BID 02/01/23 01/14/24 06/19/23 History loratadine 10 mg tablet 10 mg PO DAILY 02/01/23 01/14/24 06/19/23 History metformin 1,000 mg tablet 1,000 mg PO BID 02/01/23 01/14/24 06/19/23 History olanzapine 5 mg tablet 5 mg PO BEDTIME 02/01/23 01/14/24 06/19/23 History omeprazole 20 mg capsule,delayed 20 mg PO DAILY@0630 02/01/23 01/14/24 06/19/23 History release trazodone 100 mg tablet 100 mg PO BEDTIME 02/01/23 01/14/24 06/19/23 History trazodone 150 mg tablet 300 mg PO BEDTIME 02/01/23 01/14/24 06/19/23 History insulin detemir U-100 100 unit/mL 42 unit subcut BID 06/20/23 01/14/24 06/19/23 History subcutaneous solution (Levemir U-100 Insulin) latanoprost 0.005 % eye drops 1 drp ophthalmic-Left BEDTIME 06/20/23 01/14/24 06/19/23 History omega-3 acid ethyl esters 1 gram 1 cap PO TID 06/20/23 01/14/24 06/19/23 History capsule acetaminophen 650 mg 650 mg PO Q8H PRN mild pain 01/14/24 01/14/24 Unknown History tablet,extended release fluticasone furoate 100 1 inh inhalation DAILY PRN 01/14/24 01/14/24 Unknown History mcg/actuation blister powder for Shortness Of Breath Or Wheezing inhalation (Arnuity Ellipta) metoprolol succinate 25 mg 25 mg PO QAM 01/14/24 01/14/24 Unknown History tablet,extended release 24 hr Exam Pertinent Lab Results Pertinent Lab Results: Laboratory Tests 01/14/24 01/15/24 00:17 05:45 WBC 12.4 H Hgb 12.1 L Hct 35.2 L Plt Count 339 Sodium 136 Potassium 3.5 Chloride 99 Carbon Dioxide 26 BUN 15 Creatinine 0.83 Narrative Narrative: EKG 12/2023 Vent. Rate : 082 BPM Atrial Rate : 082 BPM P-R Int : 174 ms QRS Dur : 122 ms QT Int : 396 ms P-R-T Axes : 070 -73 054 degrees QTc Int : 462 ms Normal sinus rhythm Left anterior fascicular block Minimal voltage criteria for LVH, may be normal variant ( [employer] product ) Septal infarct , age undetermined Abnormal ECG When compared with ECG of 20-JUN-2023 09:44, Premature ventricular complexes are no longer Present Premature supraventricular complexes are no longer Present Septal infarct is now Present ECHO 2022 Conclusions: - Normal left ventricular size and systolic function. There is mildly increased left ventricular wall thickness. The visually estimated ejection fraction is between 55-60%. - Normal right ventricular cavity size and systolic function. - There is mild dilatation of the ascending aorta measuring 3.70 cm. Assessment and Plan Assessment Anesthesia Assessment: Chart Reviewed (Case discussed with Dr Norton) Final Anesthetic Review Family History of Problems with Anesthesia: No History of Problems with Anesthesia: No
[2024-02-02 12:10] VITALS: BMI 31.3
--- NOTE | 2024-02-02 12:48 | PC.NURSE ---
Pt reports drinking 8+ cups of water and coffee with milk. Dr Cheung notified and decision made to cancel procedure. blending technician Devyne notified and team made aware. Pt will need to reschedule procedure and was educated when having a surgical procedure it is required to have nothing by mouth the day of procedure. Pt left stable with and all belongings.
== END ==
PROVIDERS: Visit Provider Internal Medicine
DX: S32.019A Unspecified fracture of first lumbar vertebra, initial encounter for closed fracture (principal); M81.0 Age-related osteoporosis without current pathological fracture; W19.XXXA Unspecified fall, initial encounter; Y93.9 Activity, unspecified; Y92.9 Unspecified place or not applicable; Y99.9 Unspecified external cause status; Z53.09 Procedure and treatment not carried out because of other contraindication

== ENCOUNTER → 2024-04-26 14:07 | Outpatient (RCR) | payer MEDICARE, SELFPAY ==
[2020-09-03 14:02] VITALS: BP 135/73; RESP 12; TEMP 37; O2SAT 92; BMI 32.5
[2020-09-03 14:03] LABS: MANUAL DIFF FLAG NO
[2020-09-03 14:13] LABS: Basophils Percent Auto 0.4 % (0-2); Eosinophils Absolute Auto 0.2 X10*3/uL (0.0-0.4); Eosinophils Percent Auto 1.6 % (0-4); Hematocrit 41.1 % (42-52); Hemoglobin 13.8 g/dl (14.0-18.0); Imm Gran Abs Auto 0.05 X10*3/uL (0.00-0.03); Imm Gran Pct Auto 0.5 % (0.0-0.4); Lymphocytes Absolute Auto 2.5 X10*3/uL (1.2-4.9); Mean Corpuscular HGB Conc 33.6 g/dl (31.0-36.0); Mean Corpuscular Hemoglobin 30.1 pg (27.0-33.0); Mean Corpuscular Volume 89.7 fL (80-98); Mean Platelet Volume 10.6 fL (9.4-12.4); Monocytes Absolute Auto 0.7 X10*3/uL (0.1-1.2); Monocytes Percent Auto 6.6 % (2-11); Neutrophils Absolute Auto 7.4 X10*3/uL (2.0-8.3); Neutrophils Percent Auto 67.9 % (45-73); Platelet Count 265 X10*3/uL (160-400); Red Blood Count 4.58 X10*6/uL (4.60-5.80); Red Cell Distribution Width 12.1 % (11.0-16.0); White Blood Count 10.8 X10*3/uL (4.8-10.8)
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
[2020-09-03 14:36] LABS: Alanine Aminotransferase 24 U/L (0-40); Albumin Level 4.6 g/dL (3.5-5.0); Alkaline Phosphatase 74 U/L (39-117); Anion Gap 13 (12-20); Aspartate Amino Transferase 25 U/L (5-37); Bilirubin Total 0.5 mg/dL (0.0-1.0); Blood Urea Nitrogen 19 mg/dL (9-16); Calcium 9.3 mg/dL (8.4-10.2); Carbon Dioxide 33 mmol/L (22-29); Chloride 97 mmol/L (96-108); Creatinine Clr Calc Pharmacy 84.1; Estimated Glomerular Filt Rate > 60; Glucose Random 239 mg/dL (60-115); Potassium 4.1 mmol/l (3.3-5.1); Sodium 139 mmol/L (135-145); Total Protein 7.2 g/dL (6.5-8.0)
[2020-09-03 14:58] LABS: Ferritin 31 ng/mL (20-250)
== END | disposition home or self-care (01) ==
LOC: HO.ONC 09-03 13:25
PROVIDERS: PCP Internal Medicine; Visit Provider Internal Medicine Medical Oncology
DX: D50.9 Iron deficiency anemia, unspecified (principal); D63.8 Anemia in other chronic diseases classified elsewhere; E27.8 Other specified disorders of adrenal gland; Z79.899 Other long term (current) drug therapy
CPT/HCPCS: 36415; 80053; 82728; 85025; 99214

== ENCOUNTER 2024-06-15 10:13 | Outpatient (REF) | payer OTHER, SELFPAY ==
--- NOTE | ~2024-06-15 | MM_ITS ---
EXAMINATION: BONE DENSITOMETRY CLINICAL INDICATION: Compression fracture. COMPARISON: This is the patient's baseline examination. TECHNIQUE: Using a [employer] DXA System (software version: 13.1) manufactured by [employer], dual-energy x-ray absorptiometry was performed of the lumbar spine and right hip. The right hip was evaluated as the patient had a left ankle boot and was unable to invert the left leg for the hip scan. The images are of good technical quality. Summary results are attached. FINDINGS: AP SPINE L2-L4 (excluding L1): The data of L1-L4 has been changed to exclude the L1 vertebral body, because at this level may cause overestimation of lumbar spine density. BMD 0.997 g/cm2, Z-score -2.0, T-score -2.0, osteopenia. RIGHT FEMUR, NECK: BMD 0.709 g/cm2, Z-score -1.8, T-score -2.8, osteoporosis. RIGHT FEMUR, TOTAL: BMD 0.801 g/cm2, Z-score -1.6, T-score -2.1, osteopenia. IDENTIFIED RISK FACTORS: History of adult fracture. Current smoker. Recurrent falls. Secondary osteoporosis (type 1 diabetes). HISTORY OF FRACTURE: Spine. MEDICATIONS: None listed. MM/XR DEXA axial skeleton IMPRESSION: 1. DIAGNOSIS: Severe osteoporosis based on the lowest T-score value of -2.8 in the femoral neck and the prior history of fracture applying World Health Organization criteria. 2. 10-YEAR FRACTURE RISK PREDICTION, FRAX: According to the guidelines, FRAX calculation should only be performed on patients in the osteopenia bone density category. Therefore, FRAX was not performed on this patient. 3. Treatment Recommendations: NOF guidelines recommend consideration for treatment in postmenopausal women and men age 50 and older presenting with the following: -A hip or vertebral (clinical or morphometric) fracture. -T-score less than or equal to -2.5 at the femoral neck or spine after appropriate evaluation to exclude secondary causes. -Low bone mass at the hip or spine and a 10-year fracture probability by FRAX of greater than or equal to 3% for hip fracture or greater than or equal to 20% for major osteoporotic fracture based on the [place] adapted WHO algorithm. 4. Other Recommendations: All treatment decisions require clinical judgment and consideration of individual patient factors, including patient preferences, comorbidities, previous drug use, risk factors not captured in the FRAX model (e.g. frailty, falls, vitamin D deficiency, increased bone turnover, interval significant decline in bone density) and possible under or overestimation of fracture risk by FRAX. Additional medical evaluation for secondary cause of low bone mineral density may be appropriate. FUTURE SCAN RECOMMENDATION: People with diagnosed cases of osteoporosis or at high risk for fracture should have regular bone mineral density tests. For patients eligible for Medicare, routine testing is allowed once every 2 years. The testing frequency can be increased to one year for patients who have rapidly progressing disease, those who are receiving or discontinuing medical therapy to restore bone mass, or have additional risk factors. Electronically signed by: Alison Carmona MD 06/15/2024 11:32 AM EDT
== END 2024-06-15 10:14 | disposition home or self-care (01) ==
LOC: HO.MAMMO 10:13
PROVIDERS: PCP Internal Medicine; Visit Provider Internal Medicine
DX: S32.010A Wedge compression fracture of first lumbar vertebra, initial encounter for closed fracture (principal)
CPT/HCPCS: 77080

== ENCOUNTER 2024-08-09 05:58 | Inpatient (IN) | payer OTHER, SELFPAY ==
[2024-08-09] VITALS (19 sets, daily range): BP systolic 100–177; BP diastolic 55–88; PULSE 65–78; RESP 13–24; TEMP 36.7–37.4; O2SAT 88–97; BMI 35.2
--- NOTE | ~2024-08-09 | CT_ITS ---
EXAMINATION: CT HEAD WITHOUT CONTRAST CLINICAL INFORMATION: Altered mental status. COMPARISON: CT head from 06/20/2023. TECHNIQUE: Contiguous axial imaging was performed from the skull base to vertex without intravenous administration of contrast. This CT examination was performed using dose optimization techniques as appropriate, variously including the following: *Automated exposure control. *Adjustment of mA and/or kV according to patient size (this includes techniques or standardized protocols for targeted exams where dose is matched to indication/reason for exam; i.e. extremities or head). *Use of iterative reconstruction technique. DLP: 764 mGy-cm FINDINGS: Chronic regions of encephalomalacia within the anterior left frontal and lateral right temporal lobes with associated volume loss. No additional loss of vyas-white matter differentiation. No evidence of acute intracranial hemorrhage. Confluent hypoattenuation in the periventricular and deep white matter. Proportional prominence of the ventricles and sulcal spaces without evidence of obstructive hydrocephalus. No abnormal mass effect or midline shift. No extra-axial fluid collections. No acute soft tissue or osseous abnormalities. Mild mucosal thickening of the paranasal sinuses. The mastoid air cells and middle ear cavities are clear. CT/CT head/brain wo IV con IMPRESSION: 1. No evidence of acute intracranial hemorrhage or edematous territorial infarction. 2. Chronic regions of encephalomalacia within the anterior left frontal and lateral right temporal lobes. Moderate to extensive underlying microangiopathy and generalized cerebral volume loss. Electronically signed by: Mainor Campuzano DO 08/09/2024 06:[address] [facility]
--- NOTE | ~2024-08-09 | XR_ITS ---
EXAMINATION: XR CHEST CLINICAL INFORMATION: Cough. COMPARISON: CT chest 06/20/2023, radiograph chest 04/23/2023. TECHNIQUE: Frontal view of the chest was obtained. FINDINGS: Redemonstration of multiple left rib fractures, better characterized on prior exam. There is no gross pneumothorax. Cardiac silhouette borderline enlarged. Bilateral increased diffuse interstitial opacities with bilateral increased patchy predominantly mid and lower lung hazy opacities. Multiple lines overlie the thorax. Possible trace right pleural effusion. XR/XR chest 1V IMPRESSION: Cardiac silhouette borderline enlarged. Bilateral increased diffuse interstitial opacities with bilateral increased patchy predominantly mid and lower lung hazy opacities. Possible trace right pleural effusion. This study was presented today to 08/09/2024 for interpretation. Stat results provided at this time as requested by referring provider. Electronically signed by: Luly Abernathy MD 08/09/2024 08:25 AM [facility]
--- NOTE | ~2024-08-09 | CT_ITS ---
EXAMINATION: CT ANGIOGRAM CHEST CLINICAL INFORMATION: Respiratory failure COMPARISON: 06/18/2023 TECHNIQUE: Multiple axial images were obtained through the chest after the administration of 50 mL of Omnipaque 350 intravenous contrast. Extensive vascular post-processing including two-dimensional and three-dimensional reformatted images were created and reviewed on an independent workstation. This CT examination was performed using dose optimization techniques as appropriate, variously including the following: *Automated exposure control *Adjustment of mA and/or kV according to patient size (this includes techniques or standardized protocols for targeted exams where dose is matched to indication/reason for exam; i.e. extremities or head) *Use of iterative reconstruction technique DLP: 65 mL mGy-cm FINDINGS: CHEST: CHEST WALL: Unremarkable. AXILLA: No lymphadenopathy. PULMONARY ARTERIES: Suboptimal contrast bolus from its evaluation for pulmonary embolus. No large central pulmonary emboli. MEDIASTINUM: Cardiomegaly. No mediastinal adenopathy. No hilar adenopathy. CORONARY ARTERY CALCIFICATION: No significant coronary artery calcification appreciated on this exam. PLEURA: Small right pleural effusion. LUNGS: Bibasilar atelectasis. No new or enlarging pulmonary nodule. Central airways are patent. UPPER ABDOMEN: Redemonstration of bilateral adrenal masses measuring 5.7 x 3.3 cm on the right and 3.2 x 2.1 cm on the left consistent previously characterized as benign adenomas, unchanged from prior exam. OSSEOUS STRUCTURES: Unremarkable. CT/CT angio chest PE protocol IMPRESSION: * Suboptimal contrast bolus from its evaluation for pulmonary embolus. No large central pulmonary emboli. * Small right pleural effusion. Bibasilar atelectasis. * Cardiomegaly. Electronically signed by: Shannan Maya MD 08/09/2024 05:56 PM [facility]
--- NOTE | 2024-08-09 06:05 | ECG_ITS ---
Test Reason : SOB/CHEST PAIN Blood Pressure : / mmHG Vent. Rate : 083 BPM Atrial Rate : 083 BPM P-R Int : 182 ms QRS Dur : 116 ms QT Int : 404 ms P-R-T Axes : 079 -63 063 degrees QTc Int : 474 ms Poor data quality Normal sinus rhythm Left anterior fascicular block Septal infarct (cited on or before 05-JAN-2024) Abnormal ECG When compared with ECG of 05-JAN-2024 10:29, No significant change was found Referred By: Danita Damon Electronically Signed By:ROSELYN MOYER MD
[2024-08-09 06:27] LABS: MANUAL DIFF FLAG NO
[2024-08-09] MEDS: Albuterol Sulfate (0.083%) 2.5 MG/3 ML VIAL.NEB INHALE (06:28)
[2024-08-09 06:29] LABS: Basophils Percent Auto 0.1 % (0-2); Eosinophils Percent Auto 0.1 % (0-4); Hematocrit 32.2 % (42.0-52.0); Imm Gran Pct Auto 1.8 % (0.0-0.4); Lymphocytes Absolute Auto 0.8 X10*3/uL (1.2-4.9); Lymphocytes Percent Auto 6.8 % (20-40); Mean Corpuscular HGB Conc 31.1 g/dl (31.0-36.0); Mean Corpuscular Hemoglobin 26.2 pg (27.0-33.0); Mean Corpuscular Volume 84.5 fL (80.0-98.0); Mean Platelet Volume 9.7 fL (9.4-12.4); Monocytes Absolute Auto 0.9 X10*3/uL (0.1-1.2); Monocytes Percent Auto 7.7 % (2-11); Neutrophils Absolute Auto 9.4 x10*3/uL (2.0-8.3); Neutrophils Percent Auto 83.5 % (45-73); Platelet Count 226 X10*3/uL (160-400); Red Blood Count 3.81 X10*6/uL (4.60-5.80); Red Cell Distribution Width 14.1 % (11.0-16.0); White Blood Count 11.2 X10*3/uL (4.8-10.8)
[2024-08-09 06:36] LABS: INTERNATIONAL NORM RATIO 1.2 (0.9-1.1); Prothrombin Time 13.4 SEC (10.9-12.4)
[2024-08-09] MEDS: methylPREDNISolone Sod Succ 125 MG/2 ML VIAL 60 MG IVPUSH (06:40)
[2024-08-09 06:46] LABS: Alanine Aminotransferase 55 U/L (0-40); Albumin Level 4.3 g/dL (3.5-5.0); Alkaline Phosphatase 62 U/L (39-117); Anion Gap 11 (12-20); Aspartate Amino Transferase 41 U/L (5-37); Bilirubin Direct 0.2 mg/dL (0.0-0.5); Bilirubin Total 0.4 mg/dL (0.0-1.0); Blood Urea Nitrogen 19 mg/dL (9-16); Calcium 9.6 mg/dL (8.4-10.2); Carbon Dioxide 36 mmol/L (22-29); Chloride 92 mmol/L (96-108); Creatinine Clr Calc Pharmacy 97.4; Estimated Glomerular Filt Rate > 60; Glucose Random 206 mg/dL (60-115); Lipase 5 U/L (8-78); Magnesium 1.7 mg/dL (1.6-2.6); Potassium 4.6 mmol/L (3.3-5.1); Sodium 134 mmol/L (135-145); Total Protein 7.3 g/dL (6.5-8.0)
[2024-08-09 06:51] LABS: Troponin-I High Sensitivity 5.5 ng/L (<3.5-35.0)
[2024-08-09 06:56] LABS: B Type Natriuretic Peptide 269 pg/mL (<100)
--- NOTE | 2024-08-09 07:00 | PC.NURSE ---
Report taken from Kena An RN
--- NOTE | 2024-08-09 07:14 | ED.GENADULT ---
HPI - General Adult General Chief complaint: Upper Respiratory Symptoms Stated complaint: SOB/CHEST PAIN Time Seen by Provider: 08/09/24 07:14 History of Present Illness ED Provider: Mariah FLEMING narrative: The patient is a 73-year-old male with a history of hypertension, opiate use disorder, and type 2 diabetes who presents to the ambulance with a complaint of cough and shortness of breath over the last 3 days. This history is obtained from the triage note. When I went to see the patient he seemed somnolent and could not give any additional history. The patient apparently lives by himself. The nursing agency visits his house 2 times a day. This is [facility]. I also spoke to the patient's daughter but she has not seen the patient in about 5 days. She says that she last saw him last Wednesday when he was outside on his porch smoking a cigarette. She says he seemed somewhat short of breath at the time but it did not seem severe and she did not make much of it because she thought it was related to being outside in the cold. The patient is somnolent and unable to give additional history. Related Data Home Medications ?Medication ?Instructions ?Recorded ?Confirmed amlodipine 10 mg tablet 10 mg PO DAILY 02/01/23 01/14/24 atorvastatin 40 mg tablet 40 mg PO BEDTIME 02/01/23 01/14/24 buprenorphine 8 mg-naloxone 2 mg 1 film sublingual TID 02/01/23 01/14/24 sublingual film dorzolamide 22.3 mg-timolol 6.8 1 drp ophthalmic-Left BID 02/01/23 01/14/24 mg/mL eye drops fluticasone propionate 110 1 puff inhalation BID PRN 02/01/23 01/14/24 mcg/actuation HFA aerosol inhaler Shortness Of Breath Or Wheezing (Flovent HFA) glipizide 5 mg tablet, extended 5 mg PO DAILY 02/01/23 01/14/24 release 24 hr lisinopril 40 mg tablet 40 mg PO BID 02/01/23 01/14/24 loratadine 10 mg tablet 10 mg PO DAILY 02/01/23 01/14/24 metformin 1,000 mg tablet 1,000 mg PO BID 02/01/23 01/14/24 olanzapine 5 mg tablet 5 mg PO BEDTIME 02/01/23 01/14/24 omeprazole 20 mg capsule,delayed 20 mg PO DAILY@0630 02/01/23 01/14/24 release trazodone 100 mg tablet 100 mg PO BEDTIME 02/01/23 01/14/24 trazodone 150 mg tablet 300 mg PO BEDTIME 02/01/23 01/14/24 insulin detemir U-100 100 unit/mL 42 unit subcut BID 06/20/23 01/14/24 subcutaneous solution (Levemir U-100 Insulin) latanoprost 0.005 % eye drops 1 drp ophthalmic-Left BEDTIME 06/20/23 01/14/24 omega-3 acid ethyl esters 1 gram 1 cap PO TID 06/20/23 01/14/24 capsule acetaminophen 650 mg 650 mg PO Q8H PRN mild pain 01/14/24 01/14/24 tablet,extended release fluticasone furoate 100 1 inh inhalation DAILY PRN 01/14/24 01/14/24 mcg/actuation blister powder for Shortness Of Breath Or Wheezing inhalation (Arnuity Ellipta) metoprolol succinate 25 mg 25 mg PO QAM 01/14/24 01/14/24 tablet,extended release 24 hr Previous Rx's ?Medication ?Instructions ?Recorded ibuprofen 600 mg tablet 600 mg PO TID #21 tabs 01/17/24 lactulose 20 gram/30 mL oral 20 g (30 mL) PO BID #1,200 mL 01/17/24 solution omeprazole 20 mg capsule,delayed 20 mg PO DAILY@0630 #30 caps 01/17/24 release oxycodone 5 mg tablet 10 mg (2 x 5 mg) PO Q6H #40 tabs 01/17/24 polyethylene glycol 3350 17 gram 17 g PO DAILY #30 ea 01/17/24 oral powder packet Allergies Allergy/AdvReac Type Severity Reaction Status Date / Time No Known Allergies Allergy Verified 08/09/24 06:14 Review of Systems Review of Systems: Yes Unobtainable due to mental status PMFSH Past Medical History Medical History Left against medical advice Post-traumatic arthritis of left ankle History of fracture of left ankle COPD (chronic obstructive pulmonary disease) Opioid dependence Hypertension Prepatellar bursitis, left knee CAD (coronary artery disease) Diabetes mellitus JAUN (obstructive sleep apnea) COPD (chronic obstructive pulmonary disease) Genital herpes Opioid dependence on agonist therapy Anxiety History of adenomatous polyp of colon Chronic constipation GERD (gastroesophageal reflux disease) Pancreatic abnormality Hypertension Surgical History S/P hardware removal History of ankle surgery Family History Family History Mother No problems noted. Father Liver cancer Social History Social History Household Members: Spouse Housing: Apartment Do you presently have visiting nurse or other home services: Yes Unable to assess alcohol history related to: Unknown Alcohol intake: never Comment: Pt refusing bed alarm Patient Tobacco Use Status: Current everyday Tobacco user Tobacco use type: Cigarette Cigarettes Per Day: 3 e-Cigarette/Vaping Use: Currently Using Second Hand Smoke Exposure: No Substance Use Type: Heroin Advance Directives: Yes Advance Directives on File: Yes Advance Directives Date on File: 01/28/22 service: No Current occupational status: retired and disabled Current occupation: right handed Physical Exam ED Vital Signs: Vital Signs - 24 hr 08/09/24 06:07 08/09/24 06:29 08/09/24 07:33 Temperature 98.1 F Pulse Rate 77 76 72 Respiratory Rate 20 18 14 Blood Pressure 158/72 H 151/76 H Pulse Oximetry 97 91 L Oxygen Delivery Method Room Air Oxymask Oxygen Flow Rate 5 08/09/24 07:40 08/09/24 08:50 08/09/24 11:16 Temperature Pulse Rate 70 Respiratory Rate 23 H 14 20 Blood Pressure 141/77 H Pulse Oximetry 96 Oxygen Delivery Method BiPAP Oxygen Flow Rate 08/09/24 11:37 08/09/24 12:21 08/09/24 15:57 Temperature Pulse Rate 65 69 Respiratory Rate 22 H 15 23 H Blood Pressure 152/88 H Pulse Oximetry 92 Oxygen Delivery Method BiPAP Oxygen Flow Rate BMI result Body Mass Index 35.2 Const Other: The patient was somnolent and tachypneic. He would arouse somewhat with tactile stimuli and mumble but was not really capable of seeing anything comprehensible. HENMT Other: No obvious facial asymmetry. Mucous membranes moist. Airway is clear. Eyes Other: Eyelids are somewhat puffy, especially the eyelids of the right eye. Pupils were small and equal, extraocular movements seemed intact. Neck Other: Neck was supple. No obvious JVD. Resp Other: Mild tachypnea and mild increased work of breathing. Coarse air entry bilaterally. Cardio Rate: regular rate Rhythm: regular rhythm Heart sounds: S1 normal heart sound present and S2 normal heart sound present GI Other: The abdomen is soft and not apparently tender. Skin Other: Skin was dry and unremarkable. Neuro Other: The patient was somnolent but arousable with verbal and tactile stimuli. He would open his eyes when addressed. Eye movements seemed to be intact. Facial movements seemed to be symmetrical. He sometimes attempted to speak but his speech was very mumbly and difficult to understand. He seemed to be able to move all 4 extremities symmetrically. Extrem Other: The patient was wearing an orthopedic boot on his left leg. His daughter says that he has been wearing a boot for over 2 years since some kind of surgery. No obvious peripheral edema. Medications Administered Generic Name Dose Route Start Last Admin Trade Name Freq PRN Reason Stop Dose Admin Enoxaparin Sodium 40 mg 08/09/24 17:00 08/09/24 16:14 Enoxaparin Sodium 40 Mg/0.4 Ml Syringe SUBCUT 40 mg Q24H SAM Administration Pantoprazole Sodium 40 mg 08/09/24 16:15 08/09/24 16:14 Pantoprazole Sodium 40 Mg/10 Ml Vial IVPUSH 40 mg DAILY@0630 SAM Administration Discontinued Medications Generic Name Dose Route Start Last Admin Trade Name Makenzie PRN Reason Stop Dose Admin Albuterol Sulfate 2.5 mg 08/09/24 06:17 08/09/24 06:28 Albuterol Sulfate (0.083%) 2.5 Mg/3 Ml Vial.Neb INHALE 08/09/24 06:18 2.5 mg ONCE ONE Administration Albuterol Sulfate 2.5 mg/ 5 mg 08/09/24 11:33 08/09/24 11:47 Albuterol Sulfate 2.5 mg INHALE 08/09/24 11:34 5 mg ONCE ONE Administration Ceftriaxone Sodium 1 gm 08/09/24 07:57 08/09/24 08:38 Ceftriaxone Sodium 1 Gm Vial IVPUSH 08/09/24 07:58 1 gm ONCE ONE Administration Furosemide 40 mg 08/09/24 08:33 08/09/24 09:06 Furosemide 40 Mg/4 Ml Vial IVPUSH 08/09/24 08:34 40 mg ONCE ONE Administration Protocol Azithromycin 500 mg/ Sodium 250 mls @ 125 mls/hr 08/09/24 07:57 08/09/24 10:50 Chloride IV 08/09/24 09:56 Infused ONCE ONE Infusion Metronidazole 500 mg in 100 mls @ 100 mls/hr 08/09/24 15:16 08/09/24 16:14 Flagyl IV 08/09/24 16:15 100 mls/hr ONCE ONE Administration Iohexol 65 ml 08/09/24 16:28 08/09/24 16:28 Iohexol 350 Mg/Ml 100 Ml Infus..Btl IV 08/09/24 16:29 65 ml ONCE ONE Administration Methylprednisolone Sodium Succinate 60 mg 08/09/24 06:20 08/09/24 06:40 Methylprednisolone Sod Succ 125 Mg/2 Ml Vial IVPUSH 08/09/24 06:21 60 mg ONCE ONE Administration Naloxone HCl 0.4 mg 08/09/24 11:32 08/09/24 12:19 Naloxone Hcl 0.4 Mg/Ml Vial IVPUSH 08/09/24 11:33 0.4 mg STAT STA Administration Naloxone HCl 0.8 mg 08/09/24 12:35 08/09/24 12:42 Naloxone Hcl 0.4 Mg/Ml Vial IVPUSH 08/09/24 12:36 0.8 mg STAT STA Administration Ondansetron HCl 4 mg 08/09/24 12:49 08/09/24 12:52 Ondansetron Hcl 4 Mg/2 Ml Vial IVPUSH 08/09/24 12:50 4 mg ONCE ONE Administration Medical Decision Making Medical Decision Making MDM Narrative: The patient is a 73-year-old male who was brought to the hospital by ambulance apparently having complained of cough and shortness of breath for 3 days according to paramedics. When I saw the patient he seemed quite somnolent and could not give any additional history. He was sufficiently somnolent and with an oxygen saturation in the mid 80s despite an OxyMask that I felt he would require BiPAP. He was placed on BiPAP and an ABG was drawn. This showed a pH of 7.23 with a pCO2 of 93. Other labs were done that showed a CBC with a white count of 11.2, 83.5% neutrophils. CRP is somewhat elevated at 7.15. Procalcitonin not elevated at 0.03. His BNP was elevated at 269. This is higher than previous values. Chest x-ray was read as bilateral increased diffuse interstitial opacities with bilateral increased patchy predominantly mid and lower lung hazy opacities. Possible trace right pleural effusion. The patient is poor respiratory status seemed to possibly be multifactorial. Given the elevated BNP and x-ray findings I think the primary problem is probably some degree of congestive heart failure and so he was given IV furosemide. There may be some COPD component to his presentation. He was given IV methylprednisolone and bronchodilator treatments. However there is also a possibility of an infectious component given his mildly elevated white count and C-reactive protein elevation and the finding of possible opacities on x-ray. He was given ceftriaxone, azithromycin, and metronidazole. Additionally the patient seems to have an opioid use disorder. He is on buprenorphine/naloxone but his urine toxicology screen has tested positive not only for buprenorphine but also for opioids and fentanyl. This suggests that respiratory depression from opioids might be contributing to his respiratory failure. His responses to naloxone were equivocal. My overall impression is that is respiratory failure is probably not secondary to sepsis. He has not been tachycardic or hypotensive. He is not febrile. His lactate is normal. At 1 point we did a trial off BiPAP after he received 0.8 mg of naloxone. He briefly seemed alert enough that stopping the BiPAP seemed reasonable but this was short lived. His oxygen saturations fell off BiPAP and he had to be placed back on BiPAP. Given that his mental status never really improved and given that his respiratory status also did not seem to improve that much despite significant treatment a head CT was done as well as a CT pulmonary angiogram. These are not yet read. My impression is they are not diagnostic. The patient will be admitted to the intensive care unit. Lab Data 08/09/24 06:23 08/09/24 06:23 Labs: Lab Results 08/09/24 08/09/24 08/09/24 Range/Units 06:23 06:24 07:48 WBC 11.2 H (4.8-10.8) X10*3/uL RBC 3.81 L (4.60-5.80) X10*6/uL Hgb 10.0 L (14.0-18.0) g/dl Hct 32.2 L (42.0-52.0) % MCV 84.5 (80.0-98.0) fL MCH 26.2 L (27.0-33.0) pg MCHC 31.1 (31.0-36.0) g/dl RDW 14.1 (11.0-16.0) % Plt Count 226 D (160-400) X10*3/uL MPV 9.7 (9.4-12.4) fL Immature Gran % (Auto) 1.8 H (0.0-0.4) % Neut % (Auto) 83.5 H (45-73) % Lymph % (Auto) 6.8 L (20-40) % [place] % (Auto) 7.7 (2-11) % Eos % (Auto) 0.1 (0-4) % Baso % (Auto) 0.1 (0-2) % Lymph # (Auto) 0.8 L (1.2-4.9) X10*3/uL [place] # (Auto) 0.9 (0.1-1.2) X10*3/uL Eos # (Auto) 0.0 (0.0-0.4) X10*3/uL Baso # (Auto) 0.0 (0.0-0.2) X10*3/uL Abs Immat Gran (auto) 0.20 H (0.00-0.03) X10*3/uL Absolute Neuts (auto) 9.4 H (2.0-8.3) x10*3/uL Absolute Nucleated RBC 0.000 (0.0-0.012) X10*3/uL Nucleated RBC % (auto) 0.0 (0.0-0.2) /100WBC PT 13.4 H (10.9-12.4) SEC INR 1.2 H (0.9-1.1) O2 Saturation 70.0 % ABG pH at Pt Temp 7.23 L (7.35-7.45) ABG pCO2 at Pt Temp 93 H* (32-45) mmHg ABG pO2 at Pt Temp 53 L (83-108) mmHg ABG HCO3 39 H (22-26) mmol/L ABG Base Excess (Actual) 8.9 mmol/L VBG pH (7.32-7.43) VBG pCO2 mmHg VBG pO2 mmHg VBG HCO3 (22-26) mmol/L VBG O2 Saturation % VBG Base Excess mmol/L Sodium 134 L (135-145) mmol/L Potassium 4.6 D (3.3-5.1) mmol/L Chloride 92 L (96-108) mmol/L Carbon Dioxide 36 H (22-29) mmol/L Anion Gap 11 L (12-20) BUN 19 H (9-16) mg/dL Creatinine 0.77 (0.5-1.4) mg/dL Estim Creat Clear Calc 97.4 Estimated GFR > 60 Random Glucose 206 H (60-115) mg/dL Lactic Acid (0.5-2.0) mmol/L Calcium 9.6 (8.4-10.2) mg/dL Magnesium 1.7 (1.6-2.6) mg/dL Total Bilirubin 0.4 (0.0-1.0) mg/dL Direct Bilirubin 0.2 (0.0-0.5) mg/dL AST 41 H (5-37) U/L ALT 55 H (0-40) U/L Alkaline Phosphatase 62 (39-117) U/L Troponin I High Sens 5.5 D (<3.5-35.0) ng/L C-Reactive Protein 7.15 H (< or = 0.50) mg/dL B-Natriuretic Peptide 269 H (<100) pg/mL Total Protein 7.3 (6.5-8.0) g/dL Albumin 4.3 (3.5-5.0) g/dL Lipase 5 L (8-78) U/L Procalcitonin 0.03 ng/mL Urine Color Urine Appearance Urine pH (5.0-9.0) Ur Specific [place] (1.005-1.025) Urine Protein (Neg-Trace) mg/dL Urine Glucose (UA) (Negative) mg/dL Urine Ketones (Negative) mg/dL Urine Blood (Negative) Urine Nitrite (Negative) Ur Leukocyte Esterase (Negative) Urine RBC (0-2) /HPF Urine WBC (0-5) /HPF Ur Squamous Epith Cells (0-2) /HPF Urine Bacteria (None Seen) Hyaline Casts (0-2) /LPF Urine Opiates Screen (Not Detect) Ur Buprenorphine Scrn (Not Detect) ng/mL Ur Oxycodone Screen (Not Detect) ng/mL Urine Methadone Screen (Not Detect) ng/mL Urine Fentanyl Screen (Not Detect) Ur Barbiturates Screen (Not Detect) Ur Phencyclidine Scrn (Not Detect) Ur Amphetamines Screen (Not Detect) U Benzodiazepines Scrn (Not Detect) Urine Cocaine Screen (Not Detect) U Marijuana (THC) Screen (Not Detect) Ethyl Alcohol < 10 mg/dL 08/09/24 08/09/24 08/09/24 Range/Units 08:27 10:07 11:14 WBC (4.8-10.8) X10*3/uL RBC (4.60-5.80) X10*6/uL Hgb (14.0-18.0) g/dl Hct (42.0-52.0) % MCV (80.0-98.0) fL MCH (27.0-33.0) pg MCHC (31.0-36.0) g/dl RDW (11.0-16.0) % Plt Count (160-400) X10*3/uL MPV (9.4-12.4) fL Immature Gran % (Auto) (0.0-0.4) % Neut % (Auto) (45-73) % Lymph % (Auto) (20-40) % [place] % (Auto) (2-11) % Eos % (Auto) (0-4) % Baso % (Auto) (0-2) % Lymph # (Auto) (1.2-4.9) X10*3/uL [place] # (Auto) (0.1-1.2) X10*3/uL Eos # (Auto) (0.0-0.4) X10*3/uL Baso # (Auto) (0.0-0.2) X10*3/uL Abs Immat Gran (auto) (0.00-0.03) X10*3/uL Absolute Neuts (auto) (2.0-8.3) x10*3/uL Absolute Nucleated RBC (0.0-0.012) X10*3/uL Nucleated RBC % (auto) (0.0-0.2) /100WBC PT (10.9-12.4) SEC INR (0.9-1.1) O2 Saturation % ABG pH at Pt Temp (7.35-7.45) ABG pCO2 at Pt Temp (32-45) mmHg ABG pO2 at Pt Temp (83-108) mmHg ABG HCO3 (22-26) mmol/L ABG Base Excess (Actual) mmol/L VBG pH (7.32-7.43) VBG pCO2 mmHg VBG pO2 mmHg VBG HCO3 (22-26) mmol/L VBG O2 Saturation % VBG Base Excess mmol/L Sodium (135-145) mmol/L Potassium (3.3-5.1) mmol/L Chloride (96-108) mmol/L Carbon Dioxide (22-29) mmol/L Anion Gap (12-20) BUN (9-16) mg/dL Creatinine (0.5-1.4) mg/dL Estim Creat Clear Calc Estimated GFR Random Glucose (60-115) mg/dL Lactic Acid 1.0 (0.5-2.0) mmol/L Calcium (8.4-10.2) mg/dL Magnesium (1.6-2.6) mg/dL Total Bilirubin (0.0-1.0) mg/dL Direct Bilirubin (0.0-0.5) mg/dL AST (5-37) U/L ALT (0-40) U/L Alkaline Phosphatase (39-117) U/L Troponin I High Sens 10.5 D (<3.5-35.0) ng/L C-Reactive Protein (< or = 0.50) mg/dL B-Natriuretic Peptide (<100) pg/mL Total Protein (6.5-8.0) g/dL Albumin (3.5-5.0) g/dL Lipase (8-78) U/L Procalcitonin ng/mL Urine Color Yellow Urine Appearance Clear Urine pH 6.0 (5.0-9.0) Ur Specific [place] 1.010 (1.005-1.025) Urine Protein 30 (1+) H (Neg-Trace) mg/dL Urine Glucose (UA) 100 H (Negative) mg/dL Urine Ketones Trace (Negative) mg/dL Urine Blood Trace H (Negative) Urine Nitrite Negative (Negative) Ur Leukocyte Esterase Negative (Negative) Urine RBC 0-2 (0-2) /HPF Urine WBC 0-5 (0-5) /HPF Ur Squamous Epith Cells 0-2 (0-2) /HPF Urine Bacteria None Seen (None Seen) Hyaline Casts 0-2 (0-2) /LPF Urine Opiates Screen POSITIVE H (Not Detect) Ur Buprenorphine Scrn Positive H (Not Detect) ng/mL Ur Oxycodone Screen Not Detected (Not Detect) ng/mL Urine Methadone Screen Not Detected (Not Detect) ng/mL Urine Fentanyl Screen POSITIVE H (Not Detect) Ur Barbiturates Screen Not Detected (Not Detect) Ur Phencyclidine Scrn Not Detected (Not Detect) Ur Amphetamines Screen Not Detected (Not Detect) U Benzodiazepines Scrn Not Detected (Not Detect) Urine Cocaine Screen Not Detected (Not Detect) U Marijuana (THC) Screen Not Detected (Not Detect) Ethyl Alcohol mg/dL 08/09/24 Range/Units 11:18 WBC (4.8-10.8) X10*3/uL RBC (4.60-5.80) X10*6/uL Hgb (14.0-18.0) g/dl Hct (42.0-52.0) % MCV (80.0-98.0) fL MCH (27.0-33.0) pg MCHC (31.0-36.0) g/dl RDW (11.0-16.0) % Plt Count (160-400) X10*3/uL MPV (9.4-12.4) fL Immature Gran % (Auto) (0.0-0.4) % Neut % (Auto) (45-73) % Lymph % (Auto) (20-40) % [place] % (Auto) (2-11) % Eos % (Auto) (0-4) % Baso % (Auto) (0-2) % Lymph # (Auto) (1.2-4.9) X10*3/uL [place] # (Auto) (0.1-1.2) X10*3/uL Eos # (Auto) (0.0-0.4) X10*3/uL Baso # (Auto) (0.0-0.2) X10*3/uL Abs Immat Gran (auto) (0.00-0.03) X10*3/uL Absolute Neuts (auto) (2.0-8.3) x10*3/uL Absolute Nucleated RBC (0.0-0.012) X10*3/uL Nucleated RBC % (auto) (0.0-0.2) /100WBC PT (10.9-12.4) SEC INR (0.9-1.1) O2 Saturation % ABG pH at Pt Temp (7.35-7.45) ABG pCO2 at Pt Temp (32-45) mmHg ABG pO2 at Pt Temp (83-108) mmHg ABG HCO3 (22-26) mmol/L ABG Base Excess (Actual) mmol/L VBG pH 7.37 (7.32-7.43) VBG pCO2 72 mmHg VBG pO2 74 mmHg VBG HCO3 42 H (22-26) mmol/L VBG O2 Saturation 93.0 % VBG Base Excess 13.9 mmol/L Sodium (135-145) mmol/L Potassium (3.3-5.1) mmol/L Chloride (96-108) mmol/L Carbon Dioxide (22-29) mmol/L Anion Gap (12-20) BUN (9-16) mg/dL Creatinine (0.5-1.4) mg/dL Estim Creat Clear Calc Estimated GFR Random Glucose (60-115) mg/dL Lactic Acid (0.5-2.0) mmol/L Calcium (8.4-10.2) mg/dL Magnesium (1.6-2.6) mg/dL Total Bilirubin (0.0-1.0) mg/dL Direct Bilirubin (0.0-0.5) mg/dL AST (5-37) U/L ALT (0-40) U/L Alkaline Phosphatase (39-117) U/L Troponin I High Sens (<3.5-35.0) ng/L C-Reactive Protein (< or = 0.50) mg/dL B-Natriuretic Peptide (<100) pg/mL Total Protein (6.5-8.0) g/dL Albumin (3.5-5.0) g/dL Lipase (8-78) U/L Procalcitonin ng/mL Urine Color Urine Appearance Urine pH (5.0-9.0) Ur Specific [place] (1.005-1.025) Urine Protein (Neg-Trace) mg/dL Urine Glucose (UA) (Negative) mg/dL Urine Ketones (Negative) mg/dL Urine Blood (Negative) Urine Nitrite (Negative) Ur Leukocyte Esterase (Negative) Urine RBC (0-2) /HPF Urine WBC (0-5) /HPF Ur Squamous Epith Cells (0-2) /HPF Urine Bacteria (None Seen) Hyaline Casts (0-2) /LPF Urine Opiates Screen (Not Detect) Ur Buprenorphine Scrn (Not Detect) ng/mL Ur Oxycodone Screen (Not Detect) ng/mL Urine Methadone Screen (Not Detect) ng/mL Urine Fentanyl Screen (Not Detect) Ur Barbiturates Screen (Not Detect) Ur Phencyclidine Scrn (Not Detect) Ur Amphetamines Screen (Not Detect) U Benzodiazepines Scrn (Not Detect) Urine Cocaine Screen (Not Detect) U Marijuana (THC) Screen (Not Detect) Ethyl Alcohol mg/dL Critical Care Time Critical Care Time Critical Care Time: Yes Total Critical Care Time: 35 Attestation: The patient was critically ill with a high probability of imminent or life-threatening deterioration. ?I spent greater than 30 minutes of discontinuous time evaluating the patient, delivering critical care at the bedside, discussing evaluating data with consultants. ?Critical care time does not include time spent performing separately billable procedures or teaching. ?Time spent performing critical care with 35 minutes. Discharge Plan Discharge Clinical Impression: Respiratory failure Patient Disposition: Admitted As Inpatient
--- NOTE | 2024-08-09 07:25 | PC.NURSE ---
Went to round on pt. and found pt. on 4L via OxyMask. Sats 88% on 4L Oxymask. Turned up to 5L and sats improved to 93%. Kristin Lemus MD and respiratory called for ABG
[2024-08-09 07:54] LABS: C Reactive Protein 7.15 mg/dL (< or = 0.50)
--- NOTE | 2024-08-09 08:20 | PC.NURSE ---
Pt. difficult stick. Attempting to draw second ser of cultures at this time.
[2024-08-09] MEDS: Azithromycin 500 MG in 0.9 % Sodium Chloride 250 ML 125 MG IV (08:38)
[2024-08-09] MEDS: cefTRIAXone sodium 1 GM VIAL IVPUSH (08:38)
[2024-08-09] MEDS: Furosemide 40 MG/4 ML VIAL IVPUSH (09:06)
[2024-08-09 09:20] LABS: Procalcitonin 0.03 ng/mL
[2024-08-09 10:15] LABS: Appearance Urine Clear; Color Urine Yellow; Glucose Urine UA 100 mg/dL (Negative); Leukocyte Esterase Urine Negative (Negative); Nitrite Urine Negative (Negative); UMIC TRIGGER UACC YES; Urine Blood Trace (Negative); Urine Ketones Trace mg/dL (Negative); Urine Protein 30 (1+) mg/dL (Neg-Trace)
[2024-08-09 10:18] LABS: Bacteria Urine None Seen (None Seen); Hyaline Casts Urine 0-2 /LPF (0-2); RBC Urine 0-2 /HPF (0-2); Squamous Epithelial Cell Urine 0-2 /HPF (0-2); WBC Urine 0-5 /HPF (0-5)
[2024-08-09 11:09] LABS: Ethanol < 10 mg/dL
[2024-08-09 11:10] LABS: Amphetamine Screen Urine Not Detected (Not Detect); Barbiturates, Urine Not Detected (Not Detect); Benzodiazepines Screen Urine Not Detected (Not Detect); Buprenorphine Scr Positive (Not Detect); Cannabinoid Screen Urine Not Detected (Not Detect); Cocaine Screen Urine Not Detected (Not Detect); Fentanyl, urine POSITIVE (Not Detect); Methadone Screen, Urine Not Detected (Not Detect); Opiate Screen Urine POSITIVE (Not Detect); Oxycodone Screen Urine Not Detected (Not Detect); Phencyclidine Screen Urine Not Detected (Not Detect)
[2024-08-09 11:22] LABS: Venous Blood Gas Refer to POC result
[2024-08-09 11:23] LABS: VBG Base Excess 13.9 mmol/L; VBG HCO3 42 mmol/L (22-26); VBG pCO2 72 mmHg; VBG pH 7.37 (7.32-7.43); VBG pO2 74 mmHg
[2024-08-09 11:29] LABS: ABG Refer to POC result
[2024-08-09 11:35] LABS: ABG Base Excess 8.9 mmol/L; ABG HCO3 39 mmol/L (22-26); ABG pCO2 93 mmHg (32-45); ABG pH 7.23 (7.35-7.45); ABG pO2 53 mmHg (83-108)
[2024-08-09 11:40] LABS: Troponin-I High Sensitivity 10.5 ng/L (<3.5-35.0)
[2024-08-09] MEDS: Albuterol Sulfate 2.5 MG, Albuterol Sulfate (0.083%) 2.5 MG 5 MG INHALE (11:47)
[2024-08-09] MEDS: Naloxone HCl 0.4 MG/ML VIAL IVPUSH (12:19)
[2024-08-09] MEDS: Naloxone HCl 0.4 MG/ML VIAL 0.8 MG IVPUSH (12:42)
[2024-08-09] MEDS: ondansetron HCL 4 MG/2 ML VIAL IVPUSH (12:52)
--- NOTE | 2024-08-09 13:10 | PC.RT ---
Atempted to take pt off bipap after pt was staring to wake up after 0.12 of narcan given. Pt placed on room air to see how he was going to do. Pt sats then decreased to 72% placed on 10 l oxymask and still continued to drop to 70%. Pt then placed back on Bipap and sats increased to 90%. Pt in no resp distress. Should repeat ABG. Zofran given as well. pt remains somnolent but arousable. Discussed with Dr. Keila Lemus.
[2024-08-09] MEDS: Enoxaparin Sodium 40 MG/0.4 ML SYRINGE SUBCUT (16:14)
[2024-08-09] MEDS: Pantoprazole Sodium 40 MG/10 ML VIAL IVPUSH (16:14)
[2024-08-09] MEDS: metroNIDAZOLE/NS 500 MG/100 ML PIGGYBACK 100 MG IV (16:14)
[2024-08-09] MEDS: iohexoL 350 MG/ML 100 ML INFUS..BTL 65 ML IV (16:28)
--- NOTE | 2024-08-09 17:09 | P.HPCC_ITS ---
History of Present Illness Date of Service: 08/09/24 Chief Complaint: shortness of breath 73 years old male with PMH of hypertension, opiate use disorder, and type 2 diabetes presented to the hospital with complains of shortness of breath and altered mental status. He was somnolent and was not able to answer questions, his daughter stated that he has been short of breath for past 5 days that has slowly worsened associated with some with no aggravating or relieving factors. In the ED patient was significantly altered initial ABG showed CO2 narcosis with pCO2 of 90 so was placed on BiPAP, his repeat blood gas showed improvement in pCO2 to 70 but mental status so MICU is consulted for admission. Review of Systems 2 Review of Systems: Unable to obtain as patient is significantly altered [facility] Past Medical History Medical History Left against medical advice Post-traumatic arthritis of left ankle History of fracture of left ankle COPD (chronic obstructive pulmonary disease) Opioid dependence Hypertension Prepatellar bursitis, left knee CAD (coronary artery disease) Diabetes mellitus JAUN (obstructive sleep apnea) COPD (chronic obstructive pulmonary disease) Genital herpes Opioid dependence on agonist therapy Anxiety History of adenomatous polyp of colon Chronic constipation GERD (gastroesophageal reflux disease) Pancreatic abnormality Hypertension Family History Family History Mother No problems noted. Father Liver cancer Surgical History Surgical History S/P hardware removal History of ankle surgery Social History Social History Household Members: Spouse Housing: Apartment Do you presently have visiting nurse or other home services: Yes Unable to assess alcohol history related to: Unknown Alcohol intake: never Comment: Pt refusing bed alarm Patient Tobacco Use Status: Current everyday Tobacco user Tobacco use type: Cigarette Cigarettes Per Day: 3 e-Cigarette/Vaping Use: Currently Using Second Hand Smoke Exposure: No Substance Use Type: Heroin Advance Directives: Yes Advance Directives on File: Yes Advance Directives Date on File: 01/28/22 service: No Current occupational status: retired and disabled Current occupation: right handed Meds Allergies Allergy/AdvReac Type Severity Reaction Status Date / Time No Known Allergies Allergy Verified 08/09/24 06:14 Active Medications: Current Medications Enoxaparin Sodium (Enoxaparin Sodium 40 Mg/0.4 Ml Syringe) 40 mg SUBCUT Q24H [facility] Last Admin: 08/09/24 16:14 Dose: 40 mg Pantoprazole Sodium (Pantoprazole Sodium 40 Mg/10 Ml Vial) 40 mg IVPUSH DAILY@0630 [facility] Last Admin: 08/09/24 16:14 Dose: 40 mg Home Medications ?Medication ?Instructions ?Recorded ?Confirmed ?Last Taken ?Type amlodipine 10 mg tablet 10 mg PO DAILY 02/01/23 01/14/24 06/19/23 History atorvastatin 40 mg tablet 40 mg PO BEDTIME 02/01/23 01/14/24 06/19/23 History buprenorphine 8 mg-naloxone 2 mg 1 film sublingual TID 02/01/23 01/14/24 06/19/23 History sublingual film dorzolamide 22.3 mg-timolol 6.8 1 drp ophthalmic-Left BID 02/01/23 01/14/24 06/19/23 History mg/mL eye drops fluticasone propionate 110 1 puff inhalation BID PRN 02/01/23 01/14/24 06/19/23 History mcg/actuation HFA aerosol inhaler Shortness Of Breath Or Wheezing (Flovent HFA) glipizide 5 mg tablet, extended 5 mg PO DAILY 02/01/23 01/14/24 06/19/23 History release 24 hr lisinopril 40 mg tablet 40 mg PO BID 02/01/23 01/14/24 06/19/23 History loratadine 10 mg tablet 10 mg PO DAILY 02/01/23 01/14/24 06/19/23 History metformin 1,000 mg tablet 1,000 mg PO BID 02/01/23 01/14/24 06/19/23 History olanzapine 5 mg tablet 5 mg PO BEDTIME 02/01/23 01/14/24 06/19/23 History omeprazole 20 mg capsule,delayed 20 mg PO DAILY@0630 02/01/23 01/14/24 06/19/23 History release trazodone 100 mg tablet 100 mg PO BEDTIME 02/01/23 01/14/24 06/19/23 History trazodone 150 mg tablet 300 mg PO BEDTIME 02/01/23 01/14/24 06/19/23 History insulin detemir U-100 100 unit/mL 42 unit subcut BID 06/20/23 01/14/24 06/19/23 History subcutaneous solution (Levemir U-100 Insulin) latanoprost 0.005 % eye drops 1 drp ophthalmic-Left BEDTIME 06/20/23 01/14/24 06/19/23 History omega-3 acid ethyl esters 1 gram 1 cap PO TID 06/20/23 01/14/24 06/19/23 History capsule acetaminophen 650 mg 650 mg PO Q8H PRN mild pain 01/14/24 01/14/24 Unknown History tablet,extended release fluticasone furoate 100 1 inh inhalation DAILY PRN 01/14/24 01/14/24 Unknown History mcg/actuation blister powder for Shortness Of Breath Or Wheezing inhalation (Arnuity Ellipta) metoprolol succinate 25 mg 25 mg PO QAM 01/14/24 01/14/24 Unknown History tablet,extended release 24 hr Physical Exam 2 Vital Signs: Vital Signs: Last Vital Signs Temp 98.1 F 08/09/24 06:07 Pulse 69 08/09/24 12:21 Resp 23 H 08/09/24 15:57 BP 152/88 H 08/09/24 12:21 Pulse Ox 92 08/09/24 12:21 O2 Del Method BiPAP 08/09/24 12:21 O2 Flow Rate 5 08/09/24 07:33 BMI result Body Mass Index 35.2 General: Somnolent, in acute distress, ill appearing and tired appearing Nutritional Appearance: well nourished and overweight Eyes: appearance normal, both eyes and all related structures; Alignment and Position: alignment normal and position normal Neck: No lymphadenopathy, no thyromegaly Resp: bilateral air entry equal, bilateral added sounds present Cardio: Regular rate, regular rhythm; Heart sounds: S1 normal heart sound present and S2 normal heart sound present GI: soft, nontender, no guarding, no hepatosplenomegaly : bladder normal to inspection, bladder normal to palpation, no renal angle tenderness Skin: no rashes or lesions noted and elasticity normal Neuro: Drowsy, somnolent, does not follow any commands no focal deficits Results Labs 08/09/24 06:23 08/09/24 06:23 Labs: Laboratory Results - last 24 hr 08/09/24 08/09/24 08/09/24 06:23 06:24 07:48 MCV 84.5 MCH 26.2 L MCHC 31.1 RDW 14.1 Plt Count 226 D MPV 9.7 Immature Gran % (Auto) 1.8 H Neut % (Auto) 83.5 H Lymph % (Auto) 6.8 L [place] % (Auto) 7.7 Eos % (Auto) 0.1 Baso % (Auto) 0.1 Lymph # (Auto) 0.8 L [place] # (Auto) 0.9 Eos # (Auto) 0.0 Baso # (Auto) 0.0 Abs Immat Gran (auto) 0.20 H Absolute Neuts (auto) 9.4 H Absolute Nucleated RBC 0.000 Nucleated RBC % (auto) 0.0 PT 13.4 H INR 1.2 H O2 Saturation 70.0 ABG pH at Pt Temp 7.23 L ABG pCO2 at Pt Temp 93 H* ABG pO2 at Pt Temp 53 L ABG HCO3 39 H ABG Base Excess (Actual) 8.9 VBG pH VBG pCO2 VBG pO2 VBG HCO3 VBG O2 Saturation VBG Base Excess Anion Gap 11 L Estim Creat Clear Calc 97.4 Estimated GFR > 60 Random Glucose 206 H Lactic Acid Calcium 9.6 Magnesium 1.7 Total Bilirubin 0.4 Direct Bilirubin 0.2 AST 41 H ALT 55 H Alkaline Phosphatase 62 Troponin I High Sens 5.5 D C-Reactive Protein 7.15 H B-Natriuretic Peptide 269 H Total Protein 7.3 Albumin 4.3 Lipase 5 L Procalcitonin 0.03 Urine Color Urine Appearance Urine pH Ur Specific [place] Urine Protein Urine Glucose (UA) Urine Ketones Urine Blood Urine Nitrite Ur Leukocyte Esterase Urine RBC Urine WBC Ur Squamous Epith Cells Urine Bacteria Hyaline Casts Urine Opiates Screen Ur Buprenorphine Scrn Ur Oxycodone Screen Urine Methadone Screen Urine Fentanyl Screen Ur Barbiturates Screen Ur Phencyclidine Scrn Ur Amphetamines Screen U Benzodiazepines Scrn Urine Cocaine Screen U Marijuana (THC) Screen Ethyl Alcohol < 10 08/09/24 08/09/24 08/09/24 08:27 10:07 11:14 MCV MCH MCHC RDW Plt Count MPV Immature Gran % (Auto) Neut % (Auto) Lymph % (Auto) [place] % (Auto) Eos % (Auto) Baso % (Auto) Lymph # (Auto) [place] # (Auto) Eos # (Auto) Baso # (Auto) Abs Immat Gran (auto) Absolute Neuts (auto) Absolute Nucleated RBC Nucleated RBC % (auto) PT INR O2 Saturation ABG pH at Pt Temp ABG pCO2 at Pt Temp ABG pO2 at Pt Temp ABG HCO3 ABG Base Excess (Actual) VBG pH VBG pCO2 VBG pO2 VBG HCO3 VBG O2 Saturation VBG Base Excess Anion Gap Estim Creat Clear Calc Estimated GFR Random Glucose Lactic Acid 1.0 Calcium Magnesium Total Bilirubin Direct Bilirubin AST ALT Alkaline Phosphatase Troponin I High Sens 10.5 D C-Reactive Protein B-Natriuretic Peptide Total Protein Albumin Lipase Procalcitonin Urine Color Yellow Urine Appearance Clear Urine pH 6.0 Ur Specific [place] 1.010 Urine Protein 30 (1+) H Urine Glucose (UA) 100 H Urine Ketones Trace Urine Blood Trace H Urine Nitrite Negative Ur Leukocyte Esterase Negative Urine RBC 0-2 Urine WBC 0-5 Ur Squamous Epith Cells 0-2 Urine Bacteria None Seen Hyaline Casts 0-2 Urine Opiates Screen POSITIVE H Ur Buprenorphine Scrn Positive H Ur Oxycodone Screen Not Detected Urine Methadone Screen Not Detected Urine Fentanyl Screen POSITIVE H Ur Barbiturates Screen Not Detected Ur Phencyclidine Scrn Not Detected Ur Amphetamines Screen Not Detected U Benzodiazepines Scrn Not Detected Urine Cocaine Screen Not Detected U Marijuana (THC) Screen Not Detected Ethyl Alcohol 08/09/24 11:18 MCV MCH MCHC RDW Plt Count MPV Immature Gran % (Auto) Neut % (Auto) Lymph % (Auto) [place] % (Auto) Eos % (Auto) Baso % (Auto) Lymph # (Auto) [place] # (Auto) Eos # (Auto) Baso # (Auto) Abs Immat Gran (auto) Absolute Neuts (auto) Absolute Nucleated RBC Nucleated RBC % (auto) PT INR O2 Saturation ABG pH at Pt Temp ABG pCO2 at Pt Temp ABG pO2 at Pt Temp ABG HCO3 ABG Base Excess (Actual) VBG pH 7.37 VBG pCO2 72 VBG pO2 74 VBG HCO3 42 H VBG O2 Saturation 93.0 VBG Base Excess 13.9 Anion Gap Estim Creat Clear Calc Estimated GFR Random Glucose Lactic Acid Calcium Magnesium Total Bilirubin Direct Bilirubin AST ALT Alkaline Phosphatase Troponin I High Sens C-Reactive Protein B-Natriuretic Peptide Total Protein Albumin Lipase Procalcitonin Urine Color Urine Appearance Urine pH Ur Specific [place] Urine Protein Urine Glucose (UA) Urine Ketones Urine Blood Urine Nitrite Ur Leukocyte Esterase Urine RBC Urine WBC Ur Squamous Epith Cells Urine Bacteria Hyaline Casts Urine Opiates Screen Ur Buprenorphine Scrn Ur Oxycodone Screen Urine Methadone Screen Urine Fentanyl Screen Ur Barbiturates Screen Ur Phencyclidine Scrn Ur Amphetamines Screen U Benzodiazepines Scrn Urine Cocaine Screen U Marijuana (THC) Screen Ethyl Alcohol Imaging Radiologist's Impressions: Impressions Chest X-Ray 08/09/24 06:06 IMPRESSION: Cardiac silhouette borderline enlarged. Bilateral increased diffuse interstitial opacities with bilateral increased patchy predominantly mid and lower lung hazy opacities. Possible trace right pleural effusion. This study was presented today to 08/09/2024 for interpretation. Stat results provided at this time as requested by referring provider. Electronically signed by: Luly Abernathy MD 08/09/2024 08:25 AM [facility] Assessment and Plan (1) Acute respiratory failure with hypoxia: Status: Acute (2) Respiratory failure: Status: Acute (3) Acute encephalopathy: Status: Acute Plan Acute encephalopathy: Possibly secondary to drug overdose and CO2 narcosis UDS tested positive for opiates, fentanyl Suboxone CT head did not show any acute intracranial pathology; however official read still pending Acute hypercapnic respiratory failure: Currently on BiPAP support due to CO2 narcosis Initial ABG showing pH of 7.23 with pCO2 93, repeat VBG showing improvement in pCO2 down to 70s and pH improved to 7.37 but continues to have poor mental status Chest x-ray suggestive of right lower lobe pneumonia possibly due to aspiration however we will rule out other etiologies Continue ceftriaxone azithromycin for antibiotic coverage Lactate normal, blood cultures has been sent Prophylaxis: Lovenox, pantoprazole
--- NOTE | 2024-08-09 18:08 | PC.NURSE ---
Transferred to [facility] in ICU
[2024-08-09 18:26] LABS: Glucose, Whole Blood 153 mg/dL (60-115)
[2024-08-09 18:55] LABS: COVID-19 Test Negative (Negative); IDNOW Serial# 6674DD1D
[2024-08-09 18:57] LABS: Phosphorus 4.5 mg/dL (2.7-4.5)
--- NOTE | 2024-08-09 22:06 | PHA.MEDREC ---
Addendum entered by Edward Pimentel [facility] 08/09/24 22:16: med rec reviewed Original Note: Pharmacy Consult ? Medication Reconciliation Pharmacy has completed the medication reconciliation. Went to speak with patient and family then patient got transferred to ICU. I went down a little while later and family left for the night and patient was sleeping at the time. I called patients daughter Macie and she stated her dad has a visiting nurse that comes twice a day and they are the ones who take care of his medications, she was not sure what he was taking at this time. She also did not know the last time her dad took his medications, she thinks it might of been last night and doesn't think he took his morning medications due to what happened to him today. I utilized claims to confirm med rec for patient.
[2024-08-09] MEDS: Naloxone HCl 2 MG/2 ML SYRINGE 1 MG IVPUSH (22:25)
[2024-08-09 22:43] LABS: ABG Base Excess 17.1 mmol/L; ABG HCO3 46 mmol/L (22-26); ABG pCO2 84 mmHg (32-45); ABG pH 7.34 (7.35-7.45); ABG pO2 90 mmHg (83-108)
--- OUTSIDE RECORDS SUMMARY | 2024-08-09 22:58 | XMS_ITS | Data Portability ---
Author Organization [employer] [facility], [place] in - [facility] Address [address] [place] [id number] Care Team Providers Care Grainer Machine Name Role Phone [facility] Referring Provider [facility] Referring Provider Assessment Encounter Date Assessment Date Assessment LastModified by Organization Details LastModified Time 02/11/2022 02/11/2022 71 YOM reportedly with L ankle surgery, however pt report it was left ankle surgery recently at [facility], being seen for acutely worsening pain in the left foot and ankle and noted swelling. Pt also noted some weeping onto bandage. Relief Mate exam shows skin intact and no significant drainage There is redness and warmth that is concerng for infection such as celluliits. Pt notes he did fell onto the ground bumping the ankle but denies twisting it or bearing weight. We encouraged the patient to proceed to the ED for evaluation but he declined. He does have an appointment tomorrow with his Orthopedic Surgeon. Thus he was offered and given a dose of Ketorolac 30mg IM for pain and a dose of Ceftriaxone 1g IM for coverage of possible cellulitis or other underlying infection. Pt encouraged to proceed to ED if pain worsened or new symptoms developed. [email or web address] Not available 02/11/2022 13:25:01 Plan of Treatment Reminders Order Date Submit Date Provider Last Modified By Organization Details Last Modified Time Details Appointments None recorded. Lab None recorded. Referral None recorded. Procedures None recorded. Surgeries None recorded. Imaging electrocard iogram 2021 022 [email or web address] [facility], [address] [place] [address], [id number], 13:06:56 Medication Orders ceftriaxone 1 gram solution for injection 2021 022 [email or web address] Not available 18:55:44 ketorolac 30 mg/mL (1 mL) injection solution 2021 022 [email or web address] Not available 18:55:45 ondansetron 4 mg disintegrat ing tablet 2021 022 [facility], [address] [place] [address], [id number], 2 12:51:15 ondansetron 4 mg disintegrat ing tablet [address] [facility], [address] [place] [address], [id number], 12:45:30 acetaminoph en 325 mg tablet 2022 023 sh[facility], [address] [place] [address], [id number], 3 18:40:47 Patient TargetsNo targets recorded. Patient InstructionsNo instructions recorded. Reason for Referral None Reported. Results Created Date Observation Date Name Description Value Unit Range Abnormal Flag Note LastModifiedBy Organization Detail LastModifiedTime 05/27/20 22 elect meghan diogr am No observ ation record ed. [address], [id number], 05/27/2022 13:06:54 Result Notes None recorded. Procedures Surgical History None recorded. Imaging Results Imaging Date Name Status LastModified by Organization Details LastModified Time 05/27/2022 electrocardiogram completed [address], [id number], 05/27/2022 13:06:54 Procedure Notes None recorded. Medical Equipment None Reported. Medications Name Sig Start Date Stop Date Status Note LastModified by Organization Details LastModified Time latanoprost 0.005 % eye drops INSTILL 1 DROP IN THE LEFT EYE AT BEDTIME active Not Available Not Available No t Available atorvastatin 40 mg tablet TAKE 1 TABLET BY MOUTH AT BEDTIME active Not Available Not Available No t Available acetaminophe n 325 mg tablet Take 3 tablets by oral route. 2022 active Not Available Not Available Not Avai lable doxycycline hyclate 100 mg capsule TAKE 1 TABLET BY MOUTH TWICE DAILY UNTIL FINISHED active Not Available Not Available No t Available olanzapine 5 mg tablet TAKE 1 TABLET BY MOUTH AT BEDTIME active Not Available Not Available No t Available glipizide ER 5 mg tablet, extended release 24 hr TAKE 1 TABLET BY MOUTH EVERY MORNING active Not Available Not Available No t Available aspirin 81 mg tablet,delay ed release TAKE 1 TABLET BY MOUTH EVERY EVENING active Not Available Not Available No t Available tramadol 50 mg tablet TAKE 1 TABLET BY MOUTH EVERY TWELVE HOURS NEEDED FOR SEVERE PAIN active Not Available Not Available Not Available acetaminophe n 500 mg tablet TAKE 2 TABLETS BY MOUTH EVERY 8 HOURS NEEDED FOR PAIN active Not Available Not Available No t Available ketorolac 30 mg/mL (1 mL) injection solution Inject 1 mL every 6 hours by intramuscul ar route. 2021 active Not Available Not Available Not Avai lable ceftriaxone 1 gram solution for injection Take 1 g by injection route. 2021 active Not Available Not Available Not Avai lable tamsulosin 0.4 mg capsule TAKE 1 CAPSULE BY MOUTH AT BEDTIME active Not Available Not Available No t Available trazodone 100 mg tablet TAKE 1 TABLET BY MOUTH AT BEDTIME [id number] active Not Available Not Available No t Available amlodipine 10 mg tablet TAKE 1 TABLET BY MOUTH AT BEDTIME active Not Available Not Available No t Available trazodone 150 mg tablet TAKE 2 TABLETS BY MOUTH EVERY DAY AT BEDTIME active Not Available Not Available No t Available metformin 1,000 mg tablet TAKE 1 TABLET BY MOUTH TWICE DAILY IN THE MORNING AND IN THE EVENING WITH MEALS active Not Available Not Available N ot Available lidocaine 5 % topical patch APPLY 1-2 PATCHES TO SKIN EVERY DAY FOR PAIN IN RIB CAGE. MAY LEAVE ON UP TO 12 HOURS THEN REMOVE POR 12 HOURS active Not Available Not Available No t Available ibuprofen 400 mg tablet TAKE 1 TABLET BY MOUTH EVERY 6 HOURS NEEDED FOR PAIN active Not Available Not Available No t Available oxybutynin chloride ER 5 mg tablet,exten ded release 24 hr TAKE 1 TABLET BY MOUTH EVERY MORNING active Not Available Not Available No t Available omeprazole 20 mg capsule,dominga yed release TAKE 1 CAPSULE BY MOUTH EVERY MORNING active Not Available Not Available No t Available dorzolamide 22.3 mg-timolol 6.8 mg/mL eye drops INSTILL 1 DROP IN THE LEFT EYE TWICE DAILY (12 HOURS APART) active Not Available Not Available No t Available insulin syringe U-100 with needle 1 mL 31 gauge x 5/16 USE ONCE DAILY active Not Available Not Available No t Available metoprolol succinate ER 25 mg tablet,exten ded release 24 hr TAKE 1 TABLET BY MOUTH EVERY MORNING active Not Available Not Available No t Available lisinopril 40 mg tablet TAKE 1 TABLET BY MOUTH TWICE DAILY IN THE MORNING AND IN THE EVENING active Not Available Not Available No t Available ondansetron 4 mg disintegrati ng tablet DISSOLVE 1 TABLET ENCIMA DE LENGUA UP TO EVERY 8 HOURS NEEDED FOR NAUSEA active Not Available Not Available No t Available clotrimazole 1 % topical cream APPLY TO AFFECTED AREA(S) AND SURROUNDING AREA(S) TWICE DAILY IN THE MORNING AND IN THE EVENING active Not Available Not Available No t Available doxycycline hyclate 100 mg tablet TAKE 1 TABLET BY MOUTH TWICE DAILY UNTIL FINISHED active Not Available Not Available No t Available naproxen 500 mg tablet TAKE 1 TABLET BY MOUTH TWICE DAILY WITH FOOD NEEDED FOR PAIN active Not Available Not Available No t Available amoxicillin 875 mg-potassium clavulanate 125 mg tablet TAKE 1 TABLET BY MOUTH TWICE DAILY UNTIL FINISHED active Not Available Not Available No t Available Allergy Relief (loratadine) 10 mg tablet TAKE 1 TABLET BY MOUTH EVERY MORNING active Not Available Not Available No t Available Alcohol Prep Pads USE THREE TIMES DAILY active Not Available Not Available Not Available Flovent HFA 110 mcg/actuatio n aerosol inhaler INHALE 1 PUFF BY MOUTH TWICE DAILY active Not Available Not Available No t Available Dry Eye Relief 1 %-0.2 %-0.2 % drops PLACE 1 DROP IN EACH EYE FOUR TIMES DAILY DIRECTED active Not Available Not Available No t Available Levemir U-100 Insulin 100 unit/mL subcutaneous solution INJECT 42 UNITS SUBCUTANEOU SLY TWICE DAILY active Not Available Not Available No t Available Fish Oil 340 mg-1,000 mg capsule TAKE 1 CAPSULE BY MOUTH THREE TIMES DAILY IN THE MORNING, EVENING, AND BEDTIME active Not Available Not Available Not Available FreeStyle Lite Strips TEST BLOOD SUGAR 3 TIMES A DAY active Not Available Not Available Not Available ferrous sulfate 15 mg iron (75 mg)/mL oral drops TAKE 2 ML BY MOUTH ONCE DAILY active Not Available Not Available N ot Available buprenorphin e 8 mg-naloxone 2 mg sublingual film DISSOLVE 1 FILM UNDER THE TONGUE TWICE DAILY active Not Available Not Available Not Available Certavite-An tioxidant 18 mg-400 mcg tablet TAKE 1 TABLET BY MOUTH EVERY DAY active Not Available Not Available No t Available TRUEplus Lancets 33 gauge TEST BLOOD SUGAR THREE TIMES DAILY active Not Available Not Available Not Available naloxone 4 mg/actuation nasal spray FOR SUSPECTED OPIOID OVERDOSE. SPRAY 0.1mL IN ONE NOSTRIL. REPEAT IN ALTERNATE NOSTRIL 2-3 MINUTES IF NEEDED. SEEK MEDICAL ATTENTION IMMEDIATELY EVEN IF PATIENT RESPONDS. active Not Available Not Available No t Available Vitals Date Recorded Heart rate Body weight Oxygen saturation Oxygen saturation in Arterial blood by Pulse oximetry Body temperature Respiratory rate Body height Systolic blood pressure Diastolic blood pressure Provider Name and Address Organization Details Last Updated DateTime 3 81 /min 30064.8 64 g 96 % 96 % 97.8 [degF] 16 /min 170.18 cm 123 mm[Hg] 74 mm[Hg] Not Available [facility] 3 18:33:57 Date Recorded Heart rate Oxygen saturation Oxygen saturation in Arterial blood by Pulse oximetry Body temperature Respiratory rate Systolic blood pressure Diastolic blood pressure Provider Name and Address Organization Details Last Updated DateTime 2 74 /min 97 % 97 % 99 [degF] 18 /min 127 mm[Hg] 65 mm[Hg] Not Available [employer] 2 15:32:28 Date Recorded Oxygen saturation Oxygen saturation in Arterial blood by Pulse oximetry Body height Heart rate Body weight Body temperature Respiratory rate Heart rate Body height Respiratory rate Oxygen saturation Oxygen saturation in Arterial blood by Pulse oximetry Body weight Body temperature Systolic blood pressure Diastolic blood pressure Systolic blood pressure Diastolic blood pressure Provider Name and Address Organization Details Last Updated DateTime 2 95 % 95 % 167.64 cm 76 /min 33787.5 6 g 98.9 [degF] 20 /min 76 /min 167.64 cm 20 /min 95 % 95 % 62974.5 6 g 98.9 [degF] 111 mm[Hg] 81 mm[Hg] 111 mm[Hg] 81 mm[Hg] Not Available [facility] 2 12:42:49 Date Recorded Oxygen saturation Oxygen saturation in Arterial blood by Pulse oximetry Heart rate Body weight Body height Respiratory rate Body temperature Oxygen saturation Oxygen saturation in Arterial blood by Pulse oximetry Respiratory rate Body temperature Body weight Heart rate Body height Systolic blood pressure Diastolic blood pressure Systolic blood pressure Diastolic blood pressure Provider Name and Address Organization Details Last Updated DateTime 2 98 % 98 % 91 /min 09952.4 g 170.18 cm 18 /min 98.4 [degF] 98 % 98 % 18 /min 98.4 [degF] 66408. 4 g 91 /min 170.18 cm 171 mm[Hg] 92 mm[Hg] 171 mm[Hg] 92 mm[Hg] Not Available [facility] - production 2 13:41:01 Social History None recorded. Functional Status None recorded. Mental Status None recorded. Family History Nothing Reported. Medical History No medical history recorded. Past Encounters Encounter ID Performer Location Encounter Start Date Encounter Closed Date Diagnosis/Indication Diagnosis SNOMED-CT Code Diagnosis ICD10 Code [id number] Karrie Parsons MD Main - [facility] [address] [place] [phone] 02/10/2022 15:19:47 05/05/2022 16:06:19 Fracture of ankle 17313108 S82.92XD [id number] Rell Gomez MD Main - [facility] [address] [place] [id number] 02/11/2022 12:19:35 05/06/2022 15:07:41 Cellulitis of lower limb 647537984 L03.119 [id number] Karrie Parsons MD Main - [facility] [address] [place] [id number] 05/27/2022 12:29:03 05/28/2022 14:02:41 Nausea and vomiting [id number] R11.2 [id number] Yvon Hare MD Main - [facility] [address] [place] [id number] 03/07/2023 18:33:32 03/08/2023 12:39:21 Edema of lower extremity 727431078 R60.0 Health Concerns Section Related Observation LastModified by Organization Detai ls LastModified Time None Recorded Concern Status LastModified by Organization Details LastModified Time None Recorded Advance Directives Directive None Recorded Payers Encounter Date Sequence Insurance Name Policy Number Policy Phillip Covered Member ID Phillip Member ID Guarantor Name 02/10/2022 1 [facility] DOS PRIOR TO 2022 - DUAL ELIGIBLE (MEDICARE REPLACEMENT/ADV ANTAGE - HMO) Amadari Garza [id number] Kinmukesh Garza 02/11/2022 1 [facility] [employer] - DOS PRIOR TO 2022 - DUAL ELIGIBLE (MEDICARE REPLACEMENT/ADV ANTAGE - HMO) Amadari Garza [id number] Amadari Garza 05/27/2022 1 [facility] [employer] - DOS PRIOR TO 2022 - DUAL ELIGIBLE (MEDICARE REPLACEMENT/ADV ANTAGE - HMO) Kinmukesh Garza [id number] Kinmukesh Garza 03/07/2023 1 [facility] - DOS ON OR AFTER 2022 - DUAL ELIGIBLE - LONG-TERM OPTIONS AND ONE CARE (MEDICARE REPLACEMENT/ADV ANTAGE - HMO) Rosie Garza [id number] Rosie Garza Notes Date Note Type Note Provider Name and Address Organization Details Recorded Time 02/10/2022 text/html HPI: Covid Positive on 01/27/22 [facility] reported asymptomatic. Denied respiratory sx. 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 Fall on 01/27/22, fx of left ankle, treated twice at [facility], 01/27 to 02/03, surgery on left ankle, and back to the ER on 02/06 to 02/09/22 left AMA, reports pain on left ankle. Please check VS, BS and assess left ankle. Advised ER, member refused and stated would welcome however a home visit today. ................... ................... ................... ................... ................... ................... ................... ........ [facility] Nursing Assessment: Comments: Request reviewed, no additional information needed by CRC to process visit. ................... ................... ................... ................... ................... ................... ................... ........ Relief Mate Note: Pt complains of 9/10 left ankle pain after falling last week. Pt left AMA from [facility] yesterday because he didn? t want a avery bed. Pt states he will go back to ED today. Well contacted. Doctor agreed that it? s in best interest for him to receive continued care from providers who have been attending to him already. ................... ................... ................... ................... ................... ................... ................... ........ Disposition: Fulfilled Karrie Parsons MD [address] [place] [address],[address], [place], [phone], [employer] 02/10/2022 21:27:37 02/11/2022 text/html HPI: Member phoned in complaining of 9/10 left knee pain. Member had left knee surgery on 02/01/22. Member accidentally tipped his wheelchair over yesterday on to the left side and is now experiencing increased left knee pain. Advil has been ineffective. Member was in the hospital on 02/08/22 for knee pain. Per [facility] member has history of opioid dependence. Member states he has a dressing to his left knee and noticed sanguineous spots on it but has not attempted to change dressing, states I don't know how to do that . Member states he does not walk. This CRU RN unable to determine if member is not walking now due to recent surgery or if he doesn't walk at baseline. Member was difficult to understand and wasn't sure of the date or dates for sequence of events. Member also stated he did not have an apartment number and someone in the background was heard telling him he does have an apt number and provided the apt number listed in [facility]. Please call with ETA ................... ................... ................... ................... ................... ................... ................... ........ Relief Mate Note: Patient is a 71 year old male with left lower leg and ankle pain. Patient alert and oriented. Patient in no acute distress, airway patent, breathing normally, skin WPD. Patient states that last week he was walking down a hill to get to his fishing spot when he tripped, resulting in the bone breaking and protruding out of the skin. The patient has a temporary cast and cruzito/stiches by [facility]. Patient was sent home with instructions to follow up with ortho, no anti biotics or pain management. Patient has ortho appointment tomorrow morning at 0915. Foot is very swollen, red, tender, painful to touch and to move, warm to touch. Pain 10/10. Patient taking Advil for symptoms with good effect. Pictures sent over in [employer]ita for viewing. No further complaints. Vital signs assessed and all within normal limits. Red flags discussed. Consulted with Dr. Gomez. Patient is to follow up with PCP/care team regarding his signs, symptoms and todays visit. Dr. Gomez suggested he be seen by a ED today to get imaging and IV anti biotics. Patient refused that service. Leg was re-dressed with sterile dressings. Dr. Gomez offered the patient 30mg ketorolac IM for pain, patient agreed. Dr. Gomez also offered 1 gram of Ceftriaxone IV, patient agreed. Relief Mate Edison Dockery was dispatched for IV interventions. See gas engineer Edison Dockery patient care report for further details. Contact [facility] for re-visit if symptoms persist. Contact 911 for any discussed red flags or other emergencies. ................... ................... ................... ................... ................... ................... ................... ........ Disposition: Fulfilled Rell Gomez MD [address] [place] [address],[address], [place], [phone], [email or web address] 02/11/2022 13:25:28 05/27/2022 text/html HPI: recent priapism, had corrective procedure in ED 05/26/22, Martino Catheter draining clear blood tinged urine, member has had nausea and some vomiting since and pain in penis, was prescribed Tramadol, did not receive script ................... ................... ................... ................... ................... ................... ................... ........ [facility] Nursing Assessment: Comments: review request no further information needed to process visit ................... ................... ................... ................... ................... ................... ................... ........ Relief Mate Note: Sent to a call for a pt complaining of nausea/vomiting. [facility] arrives on scene, pt found lying in bed. Pt is alert and oriented. Airway is patent. Pt had a corrective procedure for a priapism on 05/25, and a martino catheter was placed. Pt complains of nausea/vomiting since yesterday. Pt states he has vomited 3 times since discharge, but last episode was approx 3 hrs ago. Pt complains of general weakness, nausea, and pain in penis. Pt has eaten soup and is staying hydrated. Pt denies headache, dizziness, cp, sob, diarrhea, abd pain, fever, or loc. Pt took Tylenol for pain, a script was sent to pt's pharmacy for Tramadol and Bactrim. Prescriptions will be delivered. BP:171/92, P:91, RR:18, SpO2:98% RA, T:98.4; Lung sounds: clear bilaterally; Abdomen: soft, non-tender, no distention; Skin: pink, warm, dry; Urine: Bright red; [facility] orders 12 lead ECG: uploaded to [facility], and Ondansetron 4mg SL; [facility] sends script to pt's pharmacy for Ondansetron. Red flags discussed. Pt/family have no further questions. ................... ................... ................... ................... ................... ................... ................... ........ Disposition: Fulfilled Karrie Parsons MD [address] [facility],[address], [place], [phone], [facility] - [employer] 05/27/2022 14:36:52 03/07/2023 text/html [facility] Nursing Assessment: Reason For Request: Leg pain Chief Complaints: Pain PMH: Diabetes, Heart Disease, Hypertension, COPD/Asthma Allergies: No Known Comments: Weekend [facility] nurse, Delisa Gracia calling in to place a referral for member. Member who was seen in the ED on Wednesday for same pain, member states they did no imaging or assisted with pain. Weekend nurse called member today to follow up and he is still in sever pain. Per nurse legs are red and painful, denies swelling or warmth. Member agreeable to an [facility] visit. ................... ................... ................... ................... ................... ................... ................... ........ Relief Mate Note From Lex Riley: Mobile health call for male patient with pain in swollen leg. Arrived on to patients apartment where he had a friend over cooking him dinner. Pt presents sitting in bed. Pt is conscious and alert though communication proved difficult after patient provided contradictory story on situation with his leg. Pt reports older leg injury having hit it on something reportedly a year ago. Pt had left leg bandaged and compression wrap was removed revealing a swollen left foot. Pt reports severe pain and was very tender to palpation. Pt reports swelling has only been present the last few days, though friend present offered different time line for most information. Pt reportedly was seen at ED in last few days for this complaint. Pt initially stating they did nothing for me , and later saying that imaging was performed, in addition to ultrasound . Reviewed patients medications. Consulted with [facility] advising that patient take some tylenol, keep foot elevated and follow up with pcp. Tylenol given by [employer]. Patient education provided ................... ................... ................... ................... ................... ................... ................... ........ Disposition: Fulfilled Yvon Hare MD [address] [facility],[address], [place], [address], [facility] [employer] 03/07/2023 20:10:15
[2024-08-09 23:05] LABS: ABG Refer to POC result
[2024-08-09 23:23] LABS: Glucose, Whole Blood 146 mg/dL (60-115)
[2024-08-10] VITALS (28 sets, daily range): BP systolic 119–178; BP diastolic 58–108; PULSE 68–89; RESP 12–25; TEMP 36.6–37.7; O2SAT 90–96; BMI 31.7
[2024-08-10 04:26] LABS: VBG Base Excess 19.6 mmol/L; VBG HCO3 46 mmol/L (22-26); VBG pCO2 67 mmHg; VBG pH 7.45 (7.32-7.43); VBG pO2 59 mmHg
[2024-08-10 04:30] LABS: Venous Blood Gas Refer to POC result
[2024-08-10 04:34] LABS: Basophils Percent Auto 0.3 % (0-2); Eosinophils Percent Auto 0.1 % (0-4); Hematocrit 29.7 % (42.0-52.0); Hemoglobin 9.1 g/dl (14.0-18.0); Imm Gran Abs Auto 0.06 X10*3/uL (0.00-0.03); Imm Gran Pct Auto 0.8 % (0.0-0.4); Lymphocytes Absolute Auto 1.1 X10*3/uL (1.2-4.9); Lymphocytes Percent Auto 15.3 % (20-40); MANUAL DIFF FLAG NO; Mean Corpuscular HGB Conc 30.6 g/dl (31.0-36.0); Mean Corpuscular Hemoglobin 25.6 pg (27.0-33.0); Mean Corpuscular Volume 83.4 fL (80.0-98.0); Mean Platelet Volume 9.6 fL (9.4-12.4); Monocytes Percent Auto 13.5 % (2-11); Platelet Count 239 X10*3/uL (160-400); Red Blood Count 3.56 X10*6/uL (4.60-5.80); Red Cell Distribution Width 14.3 % (11.0-16.0); White Blood Count 7.2 X10*3/uL (4.8-10.8)
[2024-08-10] MEDS: Pantoprazole Sodium 40 MG/10 ML VIAL IVPUSH (05:40)
[2024-08-10 07:23] LABS: Alanine Aminotransferase 36 U/L (0-40); Albumin Level 3.5 g/dL (3.5-5.0); Alkaline Phosphatase 50 U/L (39-117); Anion Gap 10 (12-20); Aspartate Amino Transferase 27 U/L (5-37); Bilirubin Total 0.4 mg/dL (0.0-1.0); Blood Urea Nitrogen 14 mg/dL (9-16); Calcium 9.2 mg/dL (8.4-10.2); Carbon Dioxide 38 mmol/L (22-29); Chloride 98 mmol/L (96-108); Creatinine Clr Calc Pharmacy 100.2; Estimated Glomerular Filt Rate > 60; Glucose Random 133 mg/dL (60-115); Magnesium 1.8 mg/dL (1.6-2.6); Potassium 4.4 mmol/L (3.3-5.1); Sodium 142 mmol/L (135-145); Total Protein 6.1 g/dL (6.5-8.0)
[2024-08-10] MEDS: modafiniL 100 MG TABLET PO (08:13)
[2024-08-10] MEDS: Azithromycin 500 MG in 0.9 % Sodium Chloride 250 ML 125 MG IV (08:23)
[2024-08-10] MEDS: cefTRIAXone sodium 2 GM VIAL IVPUSH (08:23)
[2024-08-10 08:38] LABS: Adenovirus PCR Not Detected (Not Detect.); Bordetella parapertussis PCR Not Detected (Not Detect.); Bordetella pertussis PCR Not Detected (Not Detect.); Chlamydia pneumoniae PCR Not Detected (Not Detect.); Coronavirus 229E PCR Not Detected (Not Detect.); Coronavirus HKU1 PCR Not Detected (Not Detect.); Coronavirus NL63 PCR Not Detected (Not Detect.); Coronavirus OC43 PCR Not Detected (Not Detect.); Human metapneumovirus PCR Not Detected (Not Detect.); Influenza A PCR Not Detected (Not Detect.); Influenza B PCR Not Detected (Not Detect.); Mycoplasma pneumoniae PCR Not Detected (Not Detect.); Parainfluenza 1 PCR Not Detected (Not Detect.); Parainfluenza 2 PCR Not Detected (Not Detect.); Parainfluenza 3 PCR Not Detected (Not Detect.); Parainfluenza 4 PCR Not Detected (Not Detect.); RSV PCR Not Detected (Not Detect.); Rhino/Enterovirus PCR Not Detected (Not Detect.)
--- NOTE | 2024-08-10 08:40 | P.PNCC_ITS ---
Subjective Subjective Date of Service: 08/10/24 Critical Care Time (minutes): 35 Comment: Was on BiPAP overnight, we will take off the BiPAP this morning Patient has significant sleep issues possibly severe sleep apnea but has to be commended and evaluated once his system is cleared from the drugs Physical Exam 2 Vital Signs: Vital Signs: Last Vital Signs Temp 99.9 F 08/10/24 08:00 Pulse 77 08/10/24 08:00 Resp 13 08/10/24 08:00 BP 166/84 H 08/10/24 08:00 Pulse Ox 93 08/10/24 08:00 O2 Del Method High Flow Nasal C annula 08/10/24 08:00 O2 Flow Rate 3 08/09/24 21:00 FiO2 40 08/10/24 08:00 BMI result Body Mass Index 31.7 General: Not in acute distress, ill appearing and tired appearing Nutritional Appearance: well nourished and overweight Eyes: appearance normal, both eyes and all related structures; Alignment and Position: alignment normal and position normal Neck: No lymphadenopathy, no thyromegaly Resp: bilateral air entry equal, bilateral wheeze heard Cardio: Regular rate, regular rhythm; Heart sounds: S1 normal heart sound present and S2 normal heart sound present GI: soft, nontender, no guarding, no hepatosplenomegaly : bladder normal to inspection, bladder normal to palpation, no renal angle tenderness Skin: no rashes or lesions noted and elasticity normal Neuro: Mental status improved, moves all extremities, no focal deficits Objective Data Labs 08/10/24 04:18 08/10/24 06:59 Labs: Laboratory Results - last 24 hr 08/09/24 08/09/24 08/09/24 06:23 07:48 08:27 WBC RBC Hgb Hct MCV MCH MCHC RDW Plt Count MPV Immature Gran % (Auto) Neut % (Auto) Lymph % (Auto) Osborne % (Auto) Eos % (Auto) Baso % (Auto) Lymph # (Auto) [place]borne # (Auto) Eos # (Auto) Baso # (Auto) Abs Immat Gran (auto) Absolute Neuts (auto) Absolute Nucleated RBC Nucleated RBC % (auto) O2 Saturation 70.0 ABG pH at Pt Temp 7.23 L ABG pCO2 at Pt Temp 93 H* ABG pO2 at Pt Temp 53 L ABG HCO3 39 H ABG Base Excess (Actual) 8.9 VBG pH VBG pCO2 VBG pO2 VBG HCO3 VBG O2 Saturation VBG Base Excess Sodium Potassium Chloride Carbon Dioxide Anion Gap BUN Creatinine Estim Creat Clear Calc Estimated GFR POC Glucose Random Glucose Lactic Acid 1.0 Calcium Phosphorus Magnesium Total Bilirubin AST ALT Alkaline Phosphatase Troponin I High Sens Total Protein Albumin Procalcitonin 0.03 Urine Color Urine Appearance Urine pH Ur Specific [employer] [place] Urine Protein Urine Glucose (UA) Urine Ketones Urine Blood Urine Nitrite Ur Leukocyte Esterase Urine RBC Urine WBC Ur Squamous Epith Cells Urine Bacteria Hyaline Casts Urine Opiates Screen Ur Buprenorphine Scrn Ur Oxycodone Screen Urine Methadone Screen Urine Fentanyl Screen Ur Barbiturates Screen Ur Phencyclidine Scrn Ur Amphetamines Screen U Benzodiazepines Scrn Urine Cocaine Screen U Marijuana (THC) Screen Ethyl Alcohol < 10 COVID-19 (THANG) COVID-19 Clin Com 08/09/24 08/09/24 08/09/24 10:07 11:14 11:18 WBC RBC Hgb Hct MCV MCH MCHC RDW Plt Count MPV Immature Gran % (Auto) Neut % (Auto) Lymph % (Auto) Osborne % (Auto) Eos % (Auto) Baso % (Auto) Lymph # (Auto) [place] # (Auto) Eos # (Auto) Baso # (Auto) Abs Immat Gran (auto) Absolute Neuts (auto) Absolute Nucleated RBC Nucleated RBC % (auto) O2 Saturation ABG pH at Pt Temp ABG pCO2 at Pt Temp ABG pO2 at Pt Temp ABG HCO3 ABG Base Excess (Actual) VBG pH 7.37 VBG pCO2 72 VBG pO2 74 VBG HCO3 42 H VBG O2 Saturation 93.0 VBG Base Excess 13.9 Sodium Potassium Chloride Carbon Dioxide Anion Gap BUN Creatinine Estim Creat Clear Calc Estimated GFR POC Glucose Random Glucose Lactic Acid Calcium Phosphorus Magnesium Total Bilirubin AST ALT Alkaline Phosphatase Troponin I High Sens 10.5 D Total Protein Albumin Procalcitonin Urine Color Yellow Urine Appearance Clear Urine pH 6.0 Ur Specific [employer] [place] 1.010 Urine Protein 30 (1+) H Urine Glucose (UA) 100 H Urine Ketones Trace Urine Blood Trace H Urine Nitrite Negative Ur Leukocyte Esterase Negative Urine RBC 0-2 Urine WBC 0-5 Ur Squamous Epith Cells 0-2 Urine Bacteria None Seen Hyaline Casts 0-2 Urine Opiates Screen POSITIVE H Ur Buprenorphine Scrn Positive H Ur Oxycodone Screen Not Detected Urine Methadone Screen Not Detected Urine Fentanyl Screen POSITIVE H Ur Barbiturates Screen Not Detected Ur Phencyclidine Scrn Not Detected Ur Amphetamines Screen Not Detected U Benzodiazepines Scrn Not Detected Urine Cocaine Screen Not Detected U Marijuana (THC) Screen Not Detected Ethyl Alcohol COVID-19 (THANG) COVID-[employer] 08/09/24 08/09/24 08/09/24 18:19 18:33 22:31 WBC RBC Hgb Hct MCV MCH MCHC RDW Plt Count MPV Immature Gran % (Auto) Neut % (Auto) Lymph % (Auto) [place]borne % (Auto) Eos % (Auto) Baso % (Auto) Lymph # (Auto) [place] # (Auto) Eos # (Auto) Baso # (Auto) Abs Immat Gran (auto) Absolute Neuts (auto) Absolute Nucleated RBC Nucleated RBC % (auto) O2 Saturation 96.0 ABG pH at Pt Temp 7.34 L ABG pCO2 at Pt Temp 84 H* ABG pO2 at Pt Temp 90 ABG HCO3 46 H ABG Base Excess (Actual) 17.1 VBG pH VBG pCO2 VBG pO2 VBG HCO3 VBG O2 Saturation VBG Base Excess Sodium Potassium Chloride Carbon Dioxide Anion Gap BUN Creatinine Estim Creat Clear Calc Estimated GFR POC Glucose 153 H Random Glucose Lactic Acid Calcium Phosphorus 4.5 Magnesium Total Bilirubin AST ALT Alkaline Phosphatase Troponin I High Sens Total Protein Albumin Procalcitonin Urine Color Urine Appearance Urine pH Ur Specific [employer] [place] Urine Protein Urine Glucose (UA) Urine Ketones Urine Blood Urine Nitrite Ur Leukocyte Esterase Urine RBC Urine WBC Ur Squamous Epith Cells Urine Bacteria Hyaline Casts Urine Opiates Screen Ur Buprenorphine Scrn Ur Oxycodone Screen Urine Methadone Screen Urine Fentanyl Screen Ur Barbiturates Screen Ur Phencyclidine Scrn Ur Amphetamines Screen U Benzodiazepines Scrn Urine Cocaine Screen U Marijuana (THC) Screen Ethyl Alcohol COVID-19 (THANG) Negative COVID-[employer] See Note 08/09/24 08/10/24 08/10/24 23:20 04:13 04:18 WBC 7.2 RBC 3.56 L Hgb 9.1 L Hct 29.7 L MCV 83.4 MCH 25.6 L MCHC 30.6 L RDW 14.3 Plt Count 239 MPV 9.6 Immature Gran % (Auto) 0.8 H Neut % (Auto) 70.0 Lymph % (Auto) 15.3 L Osborne % (Auto) 13.5 H Eos % (Auto) 0.1 Baso % (Auto) 0.3 Lymph # (Auto) 1.1 L [place] # (Auto) 1.0 Eos # (Auto) 0.0 Baso # (Auto) 0.0 Abs Immat Gran (auto) 0.06 H Absolute Neuts (auto) 5.0 Absolute Nucleated RBC 0.000 Nucleated RBC % (auto) 0.0 O2 Saturation ABG pH at Pt Temp ABG pCO2 at Pt Temp ABG pO2 at Pt Temp ABG HCO3 ABG Base Excess (Actual) VBG pH 7.45 H VBG pCO2 67 VBG pO2 59 VBG HCO3 46 H VBG O2 Saturation 88.0 VBG Base Excess 19.6 Sodium Potassium Chloride Carbon Dioxide Anion Gap BUN Creatinine Estim Creat Clear Calc Estimated GFR POC Glucose 146 H Random Glucose Lactic Acid Calcium Phosphorus Magnesium Total Bilirubin AST ALT Alkaline Phosphatase Troponin I High Sens Total Protein Albumin Procalcitonin Urine Color Urine Appearance Urine pH Ur Specific [employer] [place] Urine Protein Urine Glucose (UA) Urine Ketones Urine Blood Urine Nitrite Ur Leukocyte Esterase Urine RBC Urine WBC Ur Squamous Epith Cells Urine Bacteria Hyaline Casts Urine Opiates Screen Ur Buprenorphine Scrn Ur Oxycodone Screen Urine Methadone Screen Urine Fentanyl Screen Ur Barbiturates Screen Ur Phencyclidine Scrn Ur Amphetamines Screen U Benzodiazepines Scrn Urine Cocaine Screen U Marijuana (THC) Screen Ethyl Alcohol COVID-19 (THANG) COVID-19 Clin Com 08/10/24 06:59 WBC RBC Hgb Hct MCV MCH MCHC RDW Plt Count MPV Immature Gran % (Auto) Neut % (Auto) Lymph % (Auto) [place] % (Auto) Eos % (Auto) Baso % (Auto) Lymph # (Auto) [place] # (Auto) Eos # (Auto) Baso # (Auto) Abs Immat Gran (auto) Absolute Neuts (auto) Absolute Nucleated RBC Nucleated RBC % (auto) O2 Saturation ABG pH at Pt Temp ABG pCO2 at Pt Temp ABG pO2 at Pt Temp ABG HCO3 ABG Base Excess (Actual) VBG pH VBG pCO2 VBG pO2 VBG HCO3 VBG O2 Saturation VBG Base Excess Sodium 142 Potassium 4.4 Chloride 98 Carbon Dioxide 38 H Anion Gap 10 L BUN 14 Creatinine 0.71 Estim Creat Clear Calc 100.2 Estimated GFR > 60 POC Glucose Random Glucose 133 H Lactic Acid Calcium 9.2 Phosphorus Magnesium 1.8 Total Bilirubin 0.4 AST 27 ALT 36 Alkaline Phosphatase 50 Troponin I High Sens Total Protein 6.1 L Albumin 3.5 Procalcitonin Urine Color Urine Appearance Urine pH Ur Specific [employer] [place] Urine Protein Urine Glucose (UA) Urine Ketones Urine Blood Urine Nitrite Ur Leukocyte Esterase Urine RBC Urine WBC Ur Squamous Epith Cells Urine Bacteria Hyaline Casts Urine Opiates Screen Ur Buprenorphine Scrn Ur Oxycodone Screen Urine Methadone Screen Urine Fentanyl Screen Ur Barbiturates Screen Ur Phencyclidine Scrn Ur Amphetamines Screen U Benzodiazepines Scrn Urine Cocaine Screen U Marijuana (THC) Screen Ethyl Alcohol COVID-19 (THANG) COVID-19 Clin Com Progress Note: A&P Assessment and plan (1) Acute encephalopathy: Status: Acute (2) Acute respiratory failure with hypoxia: Status: Acute (3) Respiratory failure: Status: Acute (4) GERD (gastroesophageal reflux disease): Status: Acute Plan Acute encephalopathy: Possibly secondary to drug overdose and CO2 narcosis UDS tested positive for opiates, fentanyl Suboxone CT head did not show any acute intracranial pathology Acute hypercapnic respiratory failure: Currently on BiPAP support due to CO2 narcosis Episodes of hypercarbia that is improving with BiPAP support yesterday in the morning and again in the night Chest x-ray suggestive of right lower lobe pneumonia possibly due to aspiration however we will rule out other etiologies. CT chest suggestive of atelectasis of right lower lobe more than lower lobe also can be aspiration. Respiratory viral panel pending Continue ceftriaxone azithromycin for antibiotic coverage Lactate normal, blood cultures has been sent Will order diet peripheral access Prophylaxis: Lovenox, pantoprazole Quality Stroke Does the patient have a stroke diagnosis?: No VTE Prior VTE?: No VTE Risk Level:: Medical - low VTE Device Contraindication: N/A - Device Ordered VTE Drug Contraindication: N/A - Med Ordered
--- NOTE | 2024-08-10 08:43 | P.CDIM_ITS ---
PROVIDER RESPONSE TEXT: To clarify, the appropriate diagnosis supported by the clinical indicators: Toxic metabolic QUERY TEXT: PHYSICIAN'S DOCUMENTATION REQUEST Date of Query: 08/10/2024 08:30 AM EST Patient Name: Rosie Garza Admit Date: 08/09/2024 Dear Jose Raul Lord MD, A review of the medical record indicates additional documentation may be needed. Please review below and update the documentation accordingly. Clinical Indicators: Per H&P: Acute encephalopathy: Possibly secondary to drug overdose and CO2 narcosis CT head did not show any acute intracranial pathology; however official read still pending Based on the above, please further specify, in the Progress Notes, the known or suspected type of the documented encephalopathy: Metabolic Toxic Toxic metabolic Other (explain) Clinically unable to determine (explain) Thank you, Gauri Solis RN Use of terms such as suspected, likely, concern for, or probable (associated with a specific diagnosi s that is being evaluated, monitored, or treated as if it exists) are acceptable and can be coded in the inpatient se tting, when documented at the time of discharge. Please use your independent medical judgment in providing your response. THIS QUERY IS PART OF THE PERMANENT MEDICAL RECORD
[2024-08-10 08:51] LABS: MRSA Nasal PCR NEGATIVE (Negative); SA Nasal PCR POSITIVE (Negative)
[2024-08-10 09:01] LABS: SARS-CoV-2 PCR Not Detected (Not Detect.)
[2024-08-10 11:28] LABS: Glucose, Whole Blood 194 mg/dL (60-115)
--- NOTE | 2024-08-10 15:33 | MHC.CM.PN ---
IMM 08/10/24 Male 73 Turkish speaking DX Resp failure in ICU HF O2. Met with pt and dtr/HCP/Rosanne. HCP is on file. He lives alone. He requires assist w adls. His friend Sara assists, no payer source. A referral has been sent to [facility]. DP home with services and Rosanne will transport vs STR pending PT eval.
[2024-08-10 16:43] LABS: Glucose, Whole Blood 215 mg/dL (60-115)
[2024-08-10] MEDS: Enoxaparin Sodium 40 MG/0.4 ML SYRINGE SUBCUT (17:43)
[2024-08-10] MEDS: Metoprolol Succinate ER 25 MG TAB.ER.24H PO (18:25)
[2024-08-10] MEDS: glipiZIDE XL 5 MG TAB.ER.24 PO (19:42)
[2024-08-10] MEDS: metFORMIN HCl 1,000 MG TABLET 1000 MG PO (20:26)
[2024-08-10] MEDS: OLANZapine 5 MG TABLET PO (20:27)
[2024-08-10] MEDS: Insulin Glargine,Hum.rec.anlog 100 UNIT/ML 10 ML VIAL 20 UNIT SUBCUT (20:27)
[2024-08-10] MEDS: lisinopriL 40 MG TABLET PO (20:27)
[2024-08-10 20:29] LABS: Glucose, Whole Blood 282 mg/dL (60-115)
[2024-08-11] VITALS (7 sets, daily range): BP systolic 142–191; BP diastolic 79–100; PULSE 66–83; RESP 16–20; TEMP 36–36.7; O2SAT 92–99; BMI 31.0
[2024-08-11] MEDS: Docusate Sodium 100 MG CAPSULE 200 MG PO ×2 (00:15→22:09)
[2024-08-11] MEDS: Pantoprazole Sodium 40 MG/10 ML VIAL IVPUSH (05:24)
--- NOTE | 2024-08-11 07:18 | P.PNIM_ITS ---
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 Review of Systems All other system reviewed and are negative Physical Exam 2 Vital Signs: Vital Signs: Last Vital Signs Temp 97.3 F 08/11/24 00:00 Pulse 66 08/11/24 00:00 Resp 20 08/11/24 00:00 BP 154/83 H 08/11/24 00:00 Pulse Ox 99 08/11/24 00:00 O2 Del Method BiPAP 08/11/24 00:00 O2 Flow Rate 40 08/10/24 20:00 FiO2 35 08/11/24 04:00 BMI result Body Mass Index 31.0 Const: Other: General resting comfortably in no acute distress. Neck supple no JVD. CVS regular rate rhythm, Respiratory lungs clear to auscultation, no respiratory distress, no wheeze, no rhonchi. Gastrointestinal abdomen soft, non tender, bowel sounds audible, no guarding , no rigidity. Extremities no edema. Neuro non focal Skin no rash Psych appropriate affect Objective Data Active Medications Ceftriaxone Sodium (Ceftriaxone Sodium 2 Gm Vial) 2 gm IVPUSH Q24H [facility] Last Admin: 08/10/24 08:23 Dose: 2 gm Documented By: EAMON Docusate Sodium (Docusate Sodium 100 Mg Capsule) 200 mg PO BEDTIME [facility] Last Admin: 08/11/24 00:15 Dose: 200 mg Documented By: NARINDER Enoxaparin Sodium (Enoxaparin Sodium 40 Mg/0.4 Ml Syringe) 40 mg SUBCUT Q24H [facility] Last Admin: 08/10/24 17:43 Dose: 40 mg Documented By: EAMON Glipizide (Glipizide Xl 5 Mg Tab.Er.24) 5 mg PO DAILY [facility] Last Admin: 08/10/24 19:42 Dose: 5 mg Documented By: YELITZA Azithromycin 500 mg/ Sodium (Chloride) 250 mls @ 125 mls/hr IV Q24H [facility] Last Infusion: 08/10/24 10:39 Dose: Infused Documented By: EAMON Insulin Glargine (Insulin Glargine,Hum.Rec.Anlog 100 Unit/Ml 10 Ml Vial) 20 unit SUBCUT BEDTIME [facility] Last Admin: 08/10/24 20:27 Dose: 20 unit Documented By: NARINDER Lisinopril (Lisinopril 40 Mg Tablet) 40 mg PO BID [facility]; Protocol Last Admin: 08/10/24 20:27 Dose: 40 mg Documented By: NARINDER Magnesium Hydroxide (Milk Of Magnesia 30 Ml Oral.Susp) 30 ml PO TID PRN PRN Reason: Constipation Metformin HCl (Metformin Hcl 1,000 Mg Tablet) 1,000 mg PO BID [facility] Last Admin: 08/10/24 20:26 Dose: 1,000 mg Documented By: NARINDER Metoprolol Succinate (Metoprolol Succinate Er 25 Mg Tab.Er.24h) 25 mg PO DAILY [facility]; Protocol Last Admin: 08/10/24 18:25 Dose: 25 mg Documented By: YELITZA Modafinil (Modafinil 100 Mg Tablet) 100 mg PO DAILY [facility] Last Admin: 08/10/24 08:13 Dose: 100 mg Documented By: EAMON Olanzapine (Olanzapine 5 Mg Tablet) 5 mg PO BEDTIME [facility] Last Admin: 08/10/24 20:27 Dose: 5 mg Documented By: NARINDER Pantoprazole Sodium (Pantoprazole Sodium 40 Mg/10 Ml Vial) 40 mg IVPUSH DAILY@0630 [facility] Last Admin: 08/11/24 05:24 Dose: 40 mg Documented By: NARINDER Sodium Biphosphate/Sodium Phosphate (Sodium Phosphate,Tift-Dibasic 133 Ml Enema) 133 ml OK ONCE PRN PRN Reason: Constipation Labs 08/10/24 04:18 08/11/24 08:14 Labs: Laboratory Results - last 24 hr 08/09/24 08/10/24 08/10/24 18:33 06:59 11:21 Anion Gap 10 L Estim Creat Clear Calc 100.2 Estimated GFR > 60 POC Glucose 194 H Random Glucose 133 H Calcium 9.2 Magnesium 1.8 Total Bilirubin 0.4 AST 27 ALT 36 Alkaline Phosphatase 50 Total Protein 6.1 L Albumin 3.5 Nasal Screen MRSA (PCR) NEGATIVE Nasal S. aureus Screen POSITIVE A Nasal MRSA/S.aureus Interp SEE NOTE Respiratory Panel Zimmerman See Note Adenovirus (Rapid PCR) Not Detected B.pert (TEM-PCR) Not Detected B.parapertussis DNA PCR Not Detected C. pneumoniae DNA (PCR) Not Detected Coronavirus OC43 (PCR) Not Detected Coronavirus HKU1 (PCR) Not Detected Coronavirus 229E (PCR) Not Detected Coronavirus NL63 (PCR) Not Detected Human Metapneumovir PCR Not Detected Influenza A (RT-PCR) Not Detected Influenza B (RT-PCR) Not Detected M. pneumoniae (PCR) Not Detected Parainfluenza 1 (PCR) Not Detected Parainfluenza 2 (PCR) Not Detected Parainfluenza 3 (PCR) Not Detected Parainfluenza 4 (PCR) Not Detected RSV (PCR) Not Detected Entero/Rhino (PCR) Not Detected SARS-CoV-2 RNA (RT-PCR) Not Detected 08/10/24 08/10/24 16:40 20:14 Anion Gap Estim Creat Clear Calc Estimated GFR POC Glucose 215 H 282 H Random Glucose Calcium Magnesium Total Bilirubin AST ALT Alkaline Phosphatase Total Protein Albumin Nasal Screen MRSA (PCR) Nasal S. aureus Screen Nasal MRSA/S.aureus Interp Respiratory Panel [place] Adenovirus (Rapid PCR) B.pert (TEM-PCR) B.parapertussis DNA PCR C. pneumoniae DNA (PCR) Coronavirus OC43 (PCR) Coronavirus HKU1 (PCR) Coronavirus 229E (PCR) Coronavirus NL63 (PCR) Human Metapneumovir PCR Influenza A (RT-PCR) Influenza B (RT-PCR) M. pneumoniae (PCR) Parainfluenza 1 (PCR) Parainfluenza 2 (PCR) Parainfluenza 3 (PCR) Parainfluenza 4 (PCR) RSV (PCR) Entero/Rhino (PCR) SARS-CoV-2 RNA (RT-PCR) Microbiology Microbiology Results: Microbiology 08/09/24 08:27 Blood Culture - Preliminary Blood - Venous No growth after 24 hours. 08/09/24 08:28 Blood Culture - Preliminary Blood - Venous No growth after 24 hours. Assessment and Plan (1) Opioid use disorder: Status: Acute (2) Acute encephalopathy: Status: Acute (3) Respiratory failure: Status: Acute Plan 73 years old male with PMH of hypertension, opiate use disorder, and type 2 diabetes presented to the hospital with complains of shortness of breath and altered mental status. As per family had shortness of breath x5 days , in ED workup showed CO2 narcosis with CO2 of 90 treated with BiPAP and subsequently admitted to ICU patient weaned of BiPAP placed on high-flow, confusion resolved, pCO2 improved to 67, patient transitioned to [facility] on 08/10. Acute encephalopathy: Resolved Possibly secondary to drug overdose and CO2 narcosis UDS tested positive for opiates, fentanyl Suboxone CT head did not show any acute intracranial pathology Acute hypercapnic respiratory failure: Currently on BiPAP at night support due to CO2 narcosis Chest x-ray suggestive of right lower lobe pneumonia possibly due to aspiration CTA chest showed no PE, small right pleural effusion and bibasilar atelectasis Respiratory viral panel negative Continue ceftriaxone azithromycin for antibiotic coverage Lactate normal, blood cultures negative As per patient he has an old CPAP machine, requesting for new machine has not use CPAP for a long time Recommend outpatient sleep study/obtain Pulmonary consult. Contraction alkalosis will give Diamox 250 mg twice daily for 2 days follow BMP Substance use disorder Urine toxicology positive for opiates, fentanyl and Suboxone Seen by Addiction Team started back on Suboxone Mood disorder on olanzapine and trazodone psych consult pending for worsening depression, DC Provigil started in ICU, continue Zyprexa, hold trazodone due to daytime sedation Hypertension on lisinopril 40 mg b.i.d., and metoprolol 25 daily will resume amlodipine 10 mg due to elevated BP Diabetes mellitus type 2 on Levemir 42 units b.i.d., glipizide 5 mg daily and metformin 1000 mg by mouth b.i.d. at home, currently on Lantus 20 units, metformin 1000 b.i.d. and glipizide 5 mg daily follow blood sugars closely Hyperlipidemia continue Lipitor DVT Prophylaxis: Lovenox, GI prophylaxis Prilosec, DC IV Protonix Full code Quality Stroke Does the patient have a stroke diagnosis?: No VTE Prior VTE?: No VTE Risk Level:: Medical - low VTE Device Contraindication: N/A - Device Ordered VTE Drug Contraindication: N/A - Med Ordered
[2024-08-11 07:57] LABS: Glucose, Whole Blood 163 mg/dL (60-115)
[2024-08-11 08:58] LABS: Alanine Aminotransferase 38 U/L (0-40); Albumin Level 4.2 g/dL (3.5-5.0); Alkaline Phosphatase 65 U/L (39-117); Anion Gap 11 (12-20); Aspartate Amino Transferase 28 U/L (5-37); Bilirubin Total 0.6 mg/dL (0.0-1.0); Blood Urea Nitrogen 12 mg/dL (9-16); Carbon Dioxide 39 mmol/L (22-29); Chloride 94 mmol/L (96-108); Creatinine Clr Calc Pharmacy 97.8; Estimated Glomerular Filt Rate > 60; Glucose Random 155 mg/dL (60-115); Potassium 3.5 mmol/L (3.3-5.1); Sodium 140 mmol/L (135-145); Total Protein 7.3 g/dL (6.5-8.0)
[2024-08-11] MEDS: Azithromycin 500 MG in 0.9 % Sodium Chloride 250 ML 125 MG IV (09:09)
[2024-08-11] MEDS: cefTRIAXone sodium 2 GM VIAL IVPUSH (09:09)
[2024-08-11] MEDS: modafiniL 100 MG TABLET PO (09:10)
[2024-08-11] MEDS: Metoprolol Succinate ER 25 MG TAB.ER.24H PO (09:10)
[2024-08-11] MEDS: metFORMIN HCl 1,000 MG TABLET 1000 MG PO ×2 (09:10→22:09)
[2024-08-11] MEDS: glipiZIDE XL 5 MG TAB.ER.24 PO (09:10)
[2024-08-11] MEDS: lisinopriL 40 MG TABLET PO ×2 (09:10→22:09)
[2024-08-11] MEDS: Milk of Magnesia 30 ML ORAL.SUSP PO (10:20)
--- NOTE | 2024-08-11 10:33 | MHC.CM.PN ---
Per ROUNDS, Patient is just up from ICU and not yet medically cleared for dc. CM will follow.
[2024-08-11 11:20] LABS: Glucose, Whole Blood 226 mg/dL (60-115)
--- NOTE | 2024-08-11 12:54 | HO.ADDICTPRO ---
Subjective Subjective Date of Service: 08/11/24 Reason For Visit: Acute Respiratory failure Interim History: Patient is a 73 year old male with history of OUD, medically admitted with SOB and altered mental status. Consult requested to restart Buprenorphine and discuss ongoing substance use Patient known to this sports book writer and ACS via previous admissions Patient seen in room 459. Awake, alert, engaged in interview. Reports he has been taking suboxone consistently, and his dose is 8mg TID He emphatically denies any substance use, despite +UDS. I know what that would do to me, I would never play with my health . This sports book writer attempted to discuss risk reduction strategies, identifying current admission as a possible indicator that health is being impacted by substance use, however patient was quickly dismissive of this and did not wish to engage further. Review of Systems Constitutional: Reports as per HPI Mental Status Exam Mental Status Exam Level of Consciousness: Awake and Alert Patient Behavior: Appropriate and Guarded Diagnostics Vital Signs (24Hr): Vital Signs - 24 hr 08/10/24 13:00 08/10/24 14:00 08/10/24 15:00 Temperature Pulse Rate 83 82 82 Respiratory Rate 17 16 Blood Pressure 150/69 H 138/84 Pulse Oximetry 95 95 94 Oxygen Delivery Method High Flow Nasal Cannula High Flow Nasal Cannula High Flow Nasal Cannula Oxygen Flow Rate 60 60 60 Fraction of Inspired Oxygen 40 40 40 08/10/24 15:22 08/10/24 16:00 08/10/24 17:00 Temperature 97.9 F Pulse Rate 80 86 Respiratory Rate 20 17 18 Blood Pressure 147/104 H 141/108 H Pulse Oximetry Oxygen Delivery Method High Flow Nasal Cannula High Flow Nasal Cannula Oxygen Flow Rate 60 60 Fraction of Inspired Oxygen 40 40 08/10/24 18:00 08/10/24 18:25 08/10/24 18:55 Temperature 98.0 F Pulse Rate 84 82 Respiratory Rate 20 20 Blood Pressure 140/90 H Pulse Oximetry 96 Oxygen Delivery Method Nasal Cannula Oxygen Flow Rate 40 Fraction of Inspired Oxygen 40 08/10/24 20:00 08/10/24 20:00 08/10/24 20:27 Temperature 98.9 F Pulse Rate Respiratory Rate Blood Pressure 178/98 H Pulse Oximetry 92 Oxygen Delivery Method High Flow Nasal Cannula Oxygen Flow Rate 40 Fraction of Inspired Oxygen 40 35 08/10/24 23:52 08/11/24 00:00 08/11/24 00:00 Temperature 97.3 F Pulse Rate 66 Respiratory Rate 24 H 20 Blood Pressure 154/83 H Pulse Oximetry 99 Oxygen Delivery Method BiPAP Oxygen Flow Rate Fraction of Inspired Oxygen 35 35 08/11/24 04:00 08/11/24 08:00 08/11/24 08:00 Temperature 97.6 F Pulse Rate 81 Respiratory Rate 18 Blood Pressure 168/79 H Pulse Oximetry 95 Oxygen Delivery Method Nasal Cannula Oxygen Flow Rate 2 Fraction of Inspired Oxygen 35 35 08/11/24 08:55 08/11/24 12:00 Temperature 97.8 F Pulse Rate 75 Respiratory Rate Blood Pressure 142/84 H 148/100 H Pulse Oximetry 93 Oxygen Delivery Method Nasal Cannula Oxygen Flow Rate 2 Fraction of Inspired Oxygen BMI result Body Mass Index 31.0 Labs 08/10/24 04:18 08/12/24 06:22 Labs: Laboratory Results - last 48 hr 08/09/24 08/09/24 08/09/24 18:19 18:33 22:31 WBC RBC Hgb Hct MCV MCH MCHC RDW Plt Count MPV Immature Gran % (Auto) Neut % (Auto) Lymph % (Auto) Cass % (Auto) Eos % (Auto) Baso % (Auto) Lymph # (Auto) Cass # (Auto) Eos # (Auto) Baso # (Auto) Abs Immat Gran (auto) Absolute Neuts (auto) Absolute Nucleated RBC Nucleated RBC % (auto) O2 Saturation 96.0 ABG pH at Pt Temp 7.34 L ABG pCO2 at Pt Temp 84 H* ABG pO2 at Pt Temp 90 ABG HCO3 46 H ABG Base Excess (Actual) 17.1 VBG pH VBG pCO2 VBG pO2 VBG HCO3 VBG O2 Saturation VBG Base Excess Sodium Potassium Chloride Carbon Dioxide Anion Gap BUN Creatinine Estim Creat Clear Calc Estimated GFR POC Glucose 153 H Random Glucose Calcium Phosphorus 4.5 Magnesium Total Bilirubin AST ALT Alkaline Phosphatase Total Protein Albumin Nasal Screen MRSA (PCR) NEGATIVE Nasal S. aureus Screen POSITIVE A Nasal MRSA/S.aureus Interp SEE NOTE Respiratory Panel Zimmerman See Note Adenovirus (Rapid PCR) Not Detected B.pert (TEM-PCR) Not Detected B.parapertussis DNA PCR Not Detected C. pneumoniae DNA (PCR) Not Detected Coronavirus OC43 (PCR) Not Detected Coronavirus HKU1 (PCR) Not Detected Coronavirus 229E (PCR) Not Detected COVID-19 ([facility]ANG) Negative COVID-19 Clin Com See Note Coronavirus NL63 (PCR) Not Detected Human Metapneumovir PCR Not Detected Influenza A (RT-PCR) Not Detected Influenza B (RT-PCR) Not Detected M. pneumoniae (PCR) Not Detected Parainfluenza 1 (PCR) Not Detected Parainfluenza 2 (PCR) Not Detected Parainfluenza 3 (PCR) Not Detected Parainfluenza 4 (PCR) Not Detected RSV (PCR) Not Detected Entero/Rhino (PCR) Not Detected SARS-CoV-2 RNA (RT-PCR) Not Detected 08/09/24 08/10/24 08/10/24 23:20 04:13 04:18 WBC 7.2 RBC 3.56 L Hgb 9.1 L Hct 29.7 L MCV 83.4 MCH 25.6 L MCHC 30.6 L RDW 14.3 Plt Count 239 MPV 9.6 Immature Gran % (Auto) 0.8 H Neut % (Auto) 70.0 Lymph % (Auto) 15.3 L Cass % (Auto) 13.5 H Eos % (Auto) 0.1 Baso % (Auto) 0.3 Lymph # (Auto) 1.1 L Cass # (Auto) 1.0 Eos # (Auto) 0.0 Baso # (Auto) 0.0 Abs Immat Gran (auto) 0.06 H Absolute Neuts (auto) 5.0 Absolute Nucleated RBC 0.000 Nucleated RBC % (auto) 0.0 O2 Saturation ABG pH at Pt Temp ABG pCO2 at Pt Temp ABG pO2 at Pt Temp ABG HCO3 ABG Base Excess (Actual) VBG pH 7.45 H VBG pCO2 67 VBG pO2 59 VBG HCO3 46 H VBG O2 Saturation 88.0 VBG Base Excess 19.6 Sodium Potassium Chloride Carbon Dioxide Anion Gap BUN Creatinine Estim Creat Clear Calc Estimated GFR POC Glucose 146 H Random Glucose Calcium Phosphorus Magnesium Total Bilirubin AST ALT Alkaline Phosphatase Total Protein Albumin Nasal Screen MRSA (PCR) Nasal S. aureus Screen Nasal MRSA/S.aureus Interp Respiratory Panel Zimmerman Adenovirus (Rapid PCR) B.pert (TEM-PCR) B.parapertussis DNA PCR C. pneumoniae DNA (PCR) Coronavirus OC43 (PCR) Coronavirus HKU1 (PCR) Coronavirus 229E (PCR) COVID-19 ([facility]ANG) COVID-19 Clin Com Coronavirus NL63 (PCR) Human Metapneumovir PCR Influenza A (RT-PCR) Influenza B (RT-PCR) M. pneumoniae (PCR) Parainfluenza 1 (PCR) Parainfluenza 2 (PCR) Parainfluenza 3 (PCR) Parainfluenza 4 (PCR) RSV (PCR) Entero/Rhino (PCR) SARS-CoV-2 RNA (RT-PCR) 08/10/24 08/10/24 08/10/24 06:59 11:21 16:40 WBC RBC Hgb Hct MCV MCH MCHC RDW Plt Count MPV Immature Gran % (Auto) Neut % (Auto) Lymph % (Auto) Cass % (Auto) Eos % (Auto) Baso % (Auto) Lymph # (Auto) Cass # (Auto) Eos # (Auto) Baso # (Auto) Abs Immat Gran (auto) Absolute Neuts (auto) Absolute Nucleated RBC Nucleated RBC % (auto) O2 Saturation ABG pH at Pt Temp ABG pCO2 at Pt Temp ABG pO2 at Pt Temp ABG HCO3 ABG Base Excess (Actual) VBG pH VBG pCO2 VBG pO2 VBG HCO3 VBG O2 Saturation VBG Base Excess Sodium 142 Potassium 4.4 Chloride 98 Carbon Dioxide 38 H Anion Gap 10 L BUN 14 Creatinine 0.71 Estim Creat Clear Calc 100.2 Estimated GFR > 60 POC Glucose 194 H 215 H Random Glucose 133 H Calcium 9.2 Phosphorus Magnesium 1.8 Total Bilirubin 0.4 AST 27 ALT 36 Alkaline Phosphatase 50 Total Protein 6.1 L Albumin 3.5 Nasal Screen MRSA (PCR) Nasal S. aureus Screen Nasal MRSA/S.aureus Interp Respiratory Panel Zimmerman Adenovirus (Rapid PCR) B.pert (TEM-PCR) B.parapertussis DNA PCR C. pneumoniae DNA (PCR) Coronavirus OC43 (PCR) Coronavirus HKU1 (PCR) Coronavirus 229E (PCR) COVID-19 ([facility]ANG) COVID-19 Clin Com Coronavirus NL63 (PCR) Human Metapneumovir PCR Influenza A (RT-PCR) Influenza B (RT-PCR) M. pneumoniae (PCR) Parainfluenza 1 (PCR) Parainfluenza 2 (PCR) Parainfluenza 3 (PCR) Parainfluenza 4 (PCR) RSV (PCR) Entero/Rhino (PCR) SARS-CoV-2 RNA (RT-PCR) 08/10/24 08/11/24 08/11/24 20:14 07:53 08:14 WBC RBC Hgb Hct MCV MCH MCHC RDW Plt Count MPV Immature Gran % (Auto) Neut % (Auto) Lymph % (Auto) Cass % (Auto) Eos % (Auto) Baso % (Auto) Lymph # (Auto) Cass # (Auto) Eos # (Auto) Baso # (Auto) Abs Immat Gran (auto) Absolute Neuts (auto) Absolute Nucleated RBC Nucleated RBC % (auto) O2 Saturation ABG pH at Pt Temp ABG pCO2 at Pt Temp ABG pO2 at Pt Temp ABG HCO3 ABG Base Excess (Actual) VBG pH VBG pCO2 VBG pO2 VBG HCO3 VBG O2 Saturation VBG Base Excess Sodium 140 Potassium 3.5 D Chloride 94 L Carbon Dioxide 39 H Anion Gap 11 L BUN 12 Creatinine 0.72 Estim Creat Clear Calc 97.8 Estimated GFR > 60 POC Glucose 282 H 163 H Random Glucose 155 H Calcium 10.0 D Phosphorus Magnesium Total Bilirubin 0.6 AST 28 ALT 38 Alkaline Phosphatase 65 Total Protein 7.3 Albumin 4.2 Nasal Screen MRSA (PCR) Nasal S. aureus Screen Nasal MRSA/S.aureus Interp Respiratory Panel Zimmerman Adenovirus (Rapid PCR) B.pert (TEM-PCR) B.parapertussis DNA PCR C. pneumoniae DNA (PCR) Coronavirus OC43 (PCR) Coronavirus HKU1 (PCR) Coronavirus 229E (PCR) COVID-19 ([facility]ANG) COVID-19 Clin Com Coronavirus NL63 (PCR) Human Metapneumovir PCR Influenza A (RT-PCR) Influenza B (RT-PCR) M. pneumoniae (PCR) Parainfluenza 1 (PCR) Parainfluenza 2 (PCR) Parainfluenza 3 (PCR) Parainfluenza 4 (PCR) RSV (PCR) Entero/Rhino (PCR) SARS-CoV-2 RNA (RT-PCR) 08/11/24 11:00 WBC RBC Hgb Hct MCV MCH MCHC RDW Plt Count MPV Immature Gran % (Auto) Neut % (Auto) Lymph % (Auto) Cass % (Auto) Eos % (Auto) Baso % (Auto) Lymph # (Auto) Cass # (Auto) Eos # (Auto) Baso # (Auto) Abs Immat Gran (auto) Absolute Neuts (auto) Absolute Nucleated RBC Nucleated RBC % (auto) O2 Saturation ABG pH at Pt Temp ABG pCO2 at Pt Temp ABG pO2 at Pt Temp ABG HCO3 ABG Base Excess (Actual) VBG pH VBG pCO2 VBG pO2 VBG HCO3 VBG O2 Saturation VBG Base Excess Sodium Potassium Chloride Carbon Dioxide Anion Gap BUN Creatinine Estim Creat Clear Calc Estimated GFR POC Glucose 226 H Random Glucose Calcium Phosphorus Magnesium Total Bilirubin AST ALT Alkaline Phosphatase Total Protein Albumin Nasal Screen MRSA (PCR) Nasal S. aureus Screen Nasal MRSA/S.aureus Interp Respiratory Panel Zimmerman Adenovirus (Rapid PCR) B.pert (TEM-PCR) B.parapertussis DNA PCR C. pneumoniae DNA (PCR) Coronavirus OC43 (PCR) Coronavirus HKU1 (PCR) Coronavirus 229E (PCR) COVID-19 ([facility]ANG) COVID-19 Clin Com Coronavirus NL63 (PCR) Human Metapneumovir PCR Influenza A (RT-PCR) Influenza B (RT-PCR) M. pneumoniae (PCR) Parainfluenza 1 (PCR) Parainfluenza 2 (PCR) Parainfluenza 3 (PCR) Parainfluenza 4 (PCR) RSV (PCR) Entero/Rhino (PCR) SARS-CoV-2 RNA (RT-PCR) Imaging Radiology Impressions: ITS Impressions Chest X-Ray 08/09/24 06:06 IMPRESSION: Cardiac silhouette borderline enlarged. Bilateral increased diffuse interstitial opacities with bilateral increased patchy predominantly mid and lower lung hazy opacities. Possible trace right pleural effusion. This study was presented today to 08/09/2024 for interpretation. Stat results provided at this time as requested by referring provider. Electronically signed by: Luly Abernathy MD 08/09/2024 08:25 AM EST RP Chest CTA 08/09/24 15:41 IMPRESSION: * Suboptimal contrast bolus from its evaluation for pulmonary embolus. No large central pulmonary emboli. * Small right pleural effusion. Bibasilar atelectasis. * Cardiomegaly. Electronically signed by: Shannan Maya MD 08/09/2024 05:56 PM EST RP Head CT 08/09/24 15:41 IMPRESSION: 1. No evidence of acute intracranial hemorrhage or edematous territorial infarction. 2. Chronic regions of encephalomalacia within the anterior left frontal and lateral right temporal lobes. Moderate to extensive underlying microangiopathy and generalized cerebral volume loss. Electronically signed by: Mainor Campuzano DO 08/09/2024 06:17 PM [facility] Medications Medications Current Medications Atorvastatin Calcium (Atorvastatin Calcium 40 Mg Tablet) 40 mg PO BEDTIME [facility] Buprenorphine/Naloxone (Buprenorphine/Naloxone 8/2 Mg Film) 1 film SUBLINGUAL ONCE ONE Stop: 08/11/24 12:54 Ceftriaxone Sodium (Ceftriaxone Sodium 2 Gm Vial) 2 gm IVPUSH Q24H SAM Last Admin: 08/11/24 09:09 Dose: 2 gm Docusate Sodium (Docusate Sodium 100 Mg Capsule) 200 mg PO BEDTIME SAM Last Admin: 08/11/24 00:15 Dose: 200 mg Enoxaparin Sodium (Enoxaparin Sodium 40 Mg/0.4 Ml Syringe) 40 mg SUBCUT Q24H SAM Last Admin: 08/10/24 17:43 Dose: 40 mg Glipizide (Glipizide Xl 5 Mg Tab.Er.24) 5 mg PO DAILY SAM Last Admin: 08/11/24 09:10 Dose: 5 mg Azithromycin 500 mg/ Sodium (Chloride) 250 mls @ 125 mls/hr IV Q24H [facility] Last Infusion: 08/11/24 11:53 Dose: Infused Insulin Glargine (Insulin Glargine,Hum.Rec.Anlog 100 Unit/Ml 10 Ml Vial) 20 unit SUBCUT BEDTIME SAM Last Admin: 08/10/24 20:27 Dose: 20 unit Lisinopril (Lisinopril 40 Mg Tablet) 40 mg PO BID SAM; Protocol Last Admin: 08/11/24 09:10 Dose: 40 mg Magnesium Hydroxide (Milk Of Magnesia 30 Ml Oral.Susp) 30 ml PO TID PRN PRN Reason: Constipation Last Admin: 08/11/24 10:20 Dose: 30 ml Metformin HCl (Metformin Hcl 1,000 Mg Tablet) 1,000 mg PO BID [facility] Last Admin: 08/11/24 09:10 Dose: 1,000 mg Metoprolol Succinate (Metoprolol Succinate Er 25 Mg Tab.Er.24h) 25 mg PO DAILY SAM; Protocol Last Admin: 08/11/24 09:10 Dose: 25 mg Modafinil (Modafinil 100 Mg Tablet) 100 mg PO DAILY [facility] Last Admin: 08/11/24 09:10 Dose: 100 mg Olanzapine (Olanzapine 5 Mg Tablet) 5 mg PO BEDTIME [facility] Last Admin: 08/10/24 20:27 Dose: 5 mg Pantoprazole Sodium (Pantoprazole Sodium 40 Mg/10 Ml Vial) 40 mg IVPUSH DAILY@0630 [facility] Last Admin: 08/11/24 05:24 Dose: 40 mg Sodium Biphosphate/Sodium Phosphate (Sodium Phosphate,Cass-Dibasic 133 Ml Enema) 133 ml TN ONCE PRN PRN Reason: Constipation Allergies Allergies Allergy/AdvReac Type Severity Reaction Status Date / Time No Known Allergies Allergy Verified 08/09/24 06:14 Assessment & Plan Assessment & Plan (1) Opioid use disorder: Status: Acute Code(s): F11.90 - Opioid use, unspecified, uncomplicated Assessment and Plan: restart suboxone with one 8mg dose and titrate back to home dose as tolerated. Orders will be adjusted by t/w before the weekend patient continues to deny ongoing substance use, and risk reduction discussion was declined take home narcan at discharge Total time managing care of this patient today ____ minutes.
[2024-08-11] MEDS: Buprenorphine/Naloxone 8/2 mg FILM 1 FILM SUBLINGUAL (15:23)
[2024-08-11 16:49] LABS: Glucose, Whole Blood 198 mg/dL (60-115)
[2024-08-11] MEDS: cefTRIAXone sodium 1 GM VIAL IVPUSH (17:27)
[2024-08-11] MEDS: Enoxaparin Sodium 40 MG/0.4 ML SYRINGE SUBCUT (17:27)
[2024-08-11 20:12] LABS: Glucose, Whole Blood 261 mg/dL (60-115)
[2024-08-11] MEDS: OLANZapine 5 MG TABLET PO (22:08)
[2024-08-11] MEDS: Insulin Glargine,Hum.rec.anlog 100 UNIT/ML 10 ML VIAL 20 UNIT SUBCUT (22:09)
[2024-08-11] MEDS: Atorvastatin Calcium 40 MG TABLET PO (22:09)
[2024-08-11] MEDS: acetaZOLAMIDE 250 MG TABLET PO (22:09)
[2024-08-11] MEDS: Brimonidine Tartrate 0.2% Oph 5 ML BOTTLE 1 DROP EYE-LEFT (22:10)
[2024-08-11] MEDS: Dorzolamide/Timolo 2.23%/0.68% 10 ML DRBTL 1 DROP EYE-LEFT (22:10)
[2024-08-11] MEDS: Buprenorphine/Naloxone 4/1 mg FILM 1 FILM SUBLINGUAL (22:10)
[2024-08-12] VITALS (7 sets, daily range): BP systolic 123–152; BP diastolic 76–88; PULSE 67–78; RESP 14–18; TEMP 35.9–36.7; O2SAT 92–95; BMI 32.2
[2024-08-12 07:18] LABS: Alanine Aminotransferase 33 U/L (0-40); Alkaline Phosphatase 71 U/L (39-117); Anion Gap 13 (12-20); Aspartate Amino Transferase 24 U/L (5-37); Bilirubin Total 0.4 mg/dL (0.0-1.0); Blood Urea Nitrogen 16 mg/dL (9-16); Calcium 9.7 mg/dL (8.4-10.2); Carbon Dioxide 32 mmol/L (22-29); Chloride 98 mmol/L (96-108); Creatinine Clr Calc Pharmacy 88.5; Estimated Glomerular Filt Rate > 60; Glucose Random 222 mg/dL (60-115); Potassium 3.6 mmol/L (3.3-5.1); Sodium 139 mmol/L (135-145)
[2024-08-12 07:22] LABS: Anion Gap 13 (12-20); Blood Urea Nitrogen 18 mg/dL (9-16); Calcium 9.7 mg/dL (8.4-10.2); Carbon Dioxide 31 mmol/L (22-29); Chloride 99 mmol/L (96-108); Estimated Glomerular Filt Rate > 60; Glucose Random 221 mg/dL (60-115); Potassium 3.7 mmol/L (3.3-5.1); Sodium 139 mmol/L (135-145)
[2024-08-12 07:27] LABS: Glucose, Whole Blood 188 mg/dL (60-115)
--- NOTE | 2024-08-12 09:03 | PM.PSYCN ---
History of Present Illness Date of Service: 08/11/2024 Chief Complaint: Acute Respiratory failure Reason for Consult: depression Requesting physician: Daniella Corley Discussed with referring provider: Yes Sources of Information: patient interviewed, chart reviewed and crisis/core team assessment reviewed HPI Narrative: Mr. Garza is a 73 year-old male with admitted due to acute respiratory failure. Psychiatry consulted for depression. Pt seen in his room. He reports chronic pain, financial issues as well as visual hallucinations (he reports at times seeing things that are scary). He reports he lives alone. He denies SI/HI. He reports he has been seeing psychiatrist, Dr. Marixa Hurley at [facility] for some years. He is currently on Olanzapine. Past Psychiatric History: OP: [facility], Dr. Marixa Hurley [facility] Medical History (Updated 08/12/24 @ 09:08 by Susy Bullock NP) Opioid use disorder Closed compression fracture of body of L1 vertebra Left against medical advice Post-traumatic arthritis of left ankle History of fracture of left ankle COPD (chronic obstructive pulmonary disease) Opioid dependence Hypertension Prepatellar bursitis, left knee CAD (coronary artery disease) Diabetes mellitus JAUN (obstructive sleep apnea) COPD (chronic obstructive pulmonary disease) Genital herpes Opioid dependence on agonist therapy Anxiety History of adenomatous polyp of colon Chronic constipation GERD (gastroesophageal reflux disease) Pancreatic abnormality Hypertension Surgical History (Updated 05/04/24 @ 00:02 by Anel Marquez) S/P hardware removal History of ankle surgery Diagnostics Vital Signs (24Hr): Vital Signs - 24 hr 08/11/24 12:00 08/11/24 16:00 08/11/24 19:37 Temperature 97.8 F 96.8 F 97.4 F Pulse Rate 75 80 83 Respiratory Rate 16 18 Blood Pressure 148/100 H 152/100 H 173/82 H Pulse Oximetry 93 95 93 Oxygen Delivery Method Nasal Cannula Nasal Cannula Room Air Oxygen Flow Rate 2 1 08/11/24 23:43 08/12/24 08:00 Temperature 98.1 F 98.1 F Pulse Rate 72 77 Respiratory Rate 18 14 Blood Pressure 191/99 H 152/88 H Pulse Oximetry 92 92 Oxygen Delivery Method Room Air Room Air Oxygen Flow Rate BMI result Body Mass Index 32.2 Labs 08/10/24 04:18 08/12/24 06:22 Labs: Laboratory Results - last 48 hr 08/10/24 08/10/24 08/10/24 11:21 16:40 20:14 Hold Purple Top Sodium Potassium Chloride Carbon Dioxide Anion Gap BUN Creatinine Estim Creat Clear Calc Estimated GFR POC Glucose 194 H 215 H 282 H Random Glucose Calcium Total Bilirubin AST ALT Alkaline Phosphatase Total Protein Albumin 08/11/24 08/11/24 08/11/24 07:53 08:14 11:00 Hold Purple Top Sodium 140 Potassium 3.5 D Chloride 94 L Carbon Dioxide 39 H Anion Gap 11 L BUN 12 Creatinine 0.72 Estim Creat Clear Calc 97.8 Estimated GFR > 60 POC Glucose 163 H 226 H Random Glucose 155 H Calcium 10.0 D Total Bilirubin 0.6 AST 28 ALT 38 Alkaline Phosphatase 65 Total Protein 7.3 Albumin 4.2 08/11/24 08/11/24 08/12/24 16:28 20:07 06:22 Hold Purple Top SEE NOTE Sodium 139 Potassium Chloride Carbon Dioxide Anion Gap BUN Creatinine Estim Creat Clear Calc Estimated GFR POC Glucose 198 H 261 H Random Glucose Calcium Total Bilirubin AST ALT Alkaline Phosphatase Total Protein Albumin 08/12/24 08/12/24 08/12/24 06:22 06:22 06:22 Hold Purple Top Sodium 139 Potassium 3.7 3.6 Chloride 99 98 Carbon Dioxide 31 H Anion Gap BUN Creatinine Estim Creat Clear Calc Estimated GFR POC Glucose Random Glucose Calcium Total Bilirubin AST ALT Alkaline Phosphatase Total Protein Albumin 08/12/24 08/12/24 08/12/24 06:22 06:22 06:22 Hold Purple Top Sodium Potassium Chloride Carbon Dioxide 32 H Anion Gap 13 13 BUN 18 H 16 Creatinine 1.01 Estim Creat Clear Calc Estimated GFR POC Glucose Random Glucose Calcium Total Bilirubin AST ALT Alkaline Phosphatase Total Protein Albumin 08/12/24 08/12/24 08/12/24 06:22 06:22 06:22 Hold Purple Top Sodium Potassium Chloride Carbon Dioxide Anion Gap BUN Creatinine 0.81 Estim Creat Clear Calc 71.0 88.5 Estimated GFR > 60 > 60 POC Glucose Random Glucose 221 H Calcium Total Bilirubin AST ALT Alkaline Phosphatase Total Protein Albumin 08/12/24 08/12/24 08/12/24 06:22 06:22 07:22 Hold Purple Top Sodium Potassium Chloride Carbon Dioxide Anion Gap BUN Creatinine Estim Creat Clear Calc Estimated GFR POC Glucose 188 H Random Glucose 222 H Calcium 9.7 9.7 Total Bilirubin 0.4 AST 24 ALT 33 Alkaline Phosphatase 71 Total Protein 7.0 Albumin 4.0 Imaging Radiology Impressions: ITS Impressions Chest X-Ray 08/09/24 06:06 IMPRESSION: Cardiac silhouette borderline enlarged. Bilateral increased diffuse interstitial opacities with bilateral increased patchy predominantly mid and lower lung hazy opacities. Possible trace right pleural effusion. This study was presented today to 08/09/2024 for interpretation. Stat results provided at this time as requested by referring provider. Electronically signed by: Luly Abernathy MD 08/09/2024 08:25 AM EST RP Chest CTA 08/09/24 15:41 IMPRESSION: * Suboptimal contrast bolus from its evaluation for pulmonary embolus. No large central pulmonary emboli. * Small right pleural effusion. Bibasilar atelectasis. * Cardiomegaly. Electronically signed by: Shannan Maya MD 08/09/2024 05:56 PM EST RP Head CT 08/09/24 15:41 IMPRESSION: 1. No evidence of acute intracranial hemorrhage or edematous territorial infarction. 2. Chronic regions of encephalomalacia within the anterior left frontal and lateral right temporal lobes. Moderate to extensive underlying microangiopathy and generalized cerebral volume loss. Electronically signed by: Mainor Campuzano DO 08/09/2024 06:17 PM EST RP Mental Status Exam Mental Status Exam Narrative: Appearance: wearing hospital gown, MO, fair hygiene, in NAD Behavior: cooperative, friendly Psychomotor: no agitation or retardation noted Speech: clear, normal rate/rhythm/volume, spontaneous TP: tangential, no loose association TC: wanting help with depression and VH. Mood: depressed Affect: congruent, does brighten up at times VH/AH: not at the moment of interview, but reports intermittent VH. Delusions: no signs of delusional content Insight/judgment: poor x 2. Memory/cog: alert, oriented x 3 but would benefit from baseline MOCA to assess memory/cog. Medications Medications Current Medications Acetazolamide (Acetazolamide 250 Mg Tablet) 250 mg PO BID [facility] Stop: 08/13/24 09:01 Last Admin: 08/11/24 22:09 Dose: 250 mg Amlodipine Besylate (Amlodipine Besylate 10 Mg Tablet) 10 mg PO DAILY [facility]; Protocol Atorvastatin Calcium (Atorvastatin Calcium 40 Mg Tablet) 40 mg PO BEDTIME [facility] Last Admin: 08/11/24 22:09 Dose: 40 mg Brimonidine Tartrate (Brimonidine Tartrate 0.2% Oph 5 Ml Bottle) 1 drop EYE-LEFT BID [facility] Last Admin: 08/11/24 22:10 Dose: 1 drop Buprenorphine/Naloxone (Buprenorphine/Naloxone 8/2 Mg Film) 1 film SUBLINGUAL BID@0800,1400 [facility] Ceftriaxone Sodium (Ceftriaxone Sodium 1 Gm Vial) 1 gm IVPUSH Q24H [facility] Last Admin: 08/11/24 17:27 Dose: 1 gm Docusate Sodium (Docusate Sodium 100 Mg Capsule) 200 mg PO BEDTIME [facility] Last Admin: 08/11/24 22:09 Dose: 200 mg Dorzolamide/Timolol (Dorzolamide/Timolo 2.23%/0.68% 10 Ml Drbtl) 1 drop EYE-LEFT BID [facility] Last Admin: 08/11/24 22:10 Dose: 1 drop Enoxaparin Sodium (Enoxaparin Sodium 40 Mg/0.4 Ml Syringe) 40 mg SUBCUT Q24H [facility] Last Admin: 08/11/24 17:27 Dose: 40 mg Glipizide (Glipizide Xl 5 Mg Tab.Er.24) 5 mg PO DAILY [facility] Last Admin: 08/11/24 09:10 Dose: 5 mg Azithromycin 500 mg/ Sodium (Chloride) 250 mls @ 125 mls/hr IV Q24H [facility] Last Infusion: 08/11/24 11:53 Dose: Infused Insulin Glargine (Insulin Glargine,Hum.Rec.Anlog 100 Unit/Ml 10 Ml Vial) 20 unit SUBCUT BEDTIME [facility] Last Admin: 08/11/24 22:09 Dose: 20 unit Lisinopril (Lisinopril 40 Mg Tablet) 40 mg PO BID [facility]; Protocol Last Admin: 08/11/24 22:09 Dose: 40 mg Loratadine (Loratadine 10 Mg Tablet) 10 mg PO DAILY [facility] Magnesium Hydroxide (Milk Of Magnesia 30 Ml Oral.Susp) 30 ml PO TID PRN PRN Reason: Constipation Last Admin: 08/11/24 10:20 Dose: 30 ml Metformin HCl (Metformin Hcl 1,000 Mg Tablet) 1,000 mg PO BID [facility] Last Admin: 08/11/24 22:09 Dose: 1,000 mg Metoprolol Succinate (Metoprolol Succinate Er 25 Mg Tab.Er.24h) 25 mg PO DAILY [facility]; Protocol Last Admin: 08/11/24 09:10 Dose: 25 mg Olanzapine (Olanzapine 5 Mg Tablet) 5 mg PO BEDTIME [facility] Last Admin: 08/11/24 22:08 Dose: 5 mg Omeprazole (Omeprazole 20 Mg Capsule.Dr) 20 mg PO DAILY@0630 [facility] Last Admin: 08/12/24 06:14 Dose: Not Given Sodium Biphosphate/Sodium Phosphate (Sodium Phosphate,[place]-Dibasic 133 Ml Enema) 133 ml MT ONCE PRN PRN Reason: Constipation Allergies Allergies Allergy/AdvReac Type Severity Reaction Status Date / Time No Known Allergies Allergy Verified 08/09/24 06:14 Assessment & Plan Assessment & Plan (1) Mood disorder: Status: Acute Code(s): F39 - Unspecified mood [affective] disorder Plan Mr. Garza is a 73 year-old male admitted medically for acute respiratory failure. Psychiatry consulted for depression. Pt reports long hx of psychiatric symptoms including psychosis, especifically visual hallucinations. He did not at time of my interview appeared to be internally preoccupied. He also did not show signs of delusions or distortions of the thought. He denies recent use of opioids in addition to prescribed suboxone. He does seem somewhat distress, but after further assessment seems related to his financial situation. Discussed with his attending, Dr. Corley who reports pt is scheduled to be discharged on 08/12/24--> at this point he does not need inpt psych level of care, there are no safety concerns in terms of SI or HI or severe psychiatric symptoms affecting his ability to function. He does have chronic risk of harm due to possible ongoing substance use. I recommend at this time that he follows up with his intermediate OP psychiatrist, Dr. Hurley who knows pt best and can guide further medication recommendations. Total time managing care of this patient today _35___ minutes.
[2024-08-12] MEDS: metFORMIN HCl 1,000 MG TABLET 1000 MG PO ×2 (10:36→20:55)
[2024-08-12] MEDS: glipiZIDE XL 5 MG TAB.ER.24 PO (10:36)
[2024-08-12] MEDS: amLODIPine Besylate 10 MG TABLET PO (10:36)
[2024-08-12] MEDS: acetaZOLAMIDE 250 MG TABLET PO ×2 (10:36→20:54)
[2024-08-12] MEDS: Loratadine 10 MG TABLET PO (10:36)
[2024-08-12] MEDS: Metoprolol Succinate ER 25 MG TAB.ER.24H PO (10:36)
[2024-08-12] MEDS: lisinopriL 40 MG TABLET PO ×2 (10:36→20:54)
[2024-08-12] MEDS: Azithromycin 500 MG in 0.9 % Sodium Chloride 250 ML 125 MG IV (10:37)
[2024-08-12] MEDS: Brimonidine Tartrate 0.2% Oph 5 ML BOTTLE 1 DROP EYE-LEFT (10:37)
[2024-08-12] MEDS: Dorzolamide/Timolo 2.23%/0.68% 10 ML DRBTL 1 DROP EYE-LEFT (10:37)
[2024-08-12] MEDS: Buprenorphine/Naloxone 8/2 mg FILM 1 FILM SUBLINGUAL ×2 (10:37→15:12)
[2024-08-12] MEDS: Milk of Magnesia 30 ML ORAL.SUSP PO (10:48)
--- NOTE | 2024-08-12 11:25 | P.PNIM_ITS ---
Subjective Subjective Date of Service: 08/12/24 Interval History: seen and examined awake and alert reports coughing otherwise denies cp not wearing his O2 Review of Systems All other system reviewed and are negative Physical Exam 2 Vital Signs: Vital Signs: Last Vital Signs Temp 98.1 F 08/12/24 08:00 Pulse 77 08/12/24 10:36 Resp 14 08/12/24 08:00 BP 152/88 H 08/12/24 10:36 Pulse Ox 92 08/12/24 08:00 O2 Del Method Room Air 08/12/24 08:00 O2 Flow Rate 1 08/11/24 16:00 FiO2 35 08/11/24 08:00 BMI result Body Mass Index 32.2 Const: Other: General resting comfortably in no acute distress. Neck supple no JVD. CVS regular rate rhythm, Respiratory lungs clear to auscultation, no respiratory distress, no wheeze, no rhonchi. Gastrointestinal abdomen soft, non tender, bowel sounds audible, no guarding , no rigidity. Extremities no edema. Neuro non focal Skin no rash Psych appropriate affect Objective Data Active Medications Acetazolamide (Acetazolamide 250 Mg Tablet) 250 mg PO BID [facility] Stop: 08/13/24 09:01 Last Admin: 08/12/24 10:36 Dose: 250 mg Documented By: ROSE Amlodipine Besylate (Amlodipine Besylate 10 Mg Tablet) 10 mg PO DAILY [facility]; Protocol Last Admin: 08/12/24 10:36 Dose: 10 mg Documented By: ROSE Atorvastatin Calcium (Atorvastatin Calcium 40 Mg Tablet) 40 mg PO BEDTIME [facility] Last Admin: 08/11/24 22:09 Dose: 40 mg Documented By: IRMA Brimonidine Tartrate (Brimonidine Tartrate 0.2% Oph 5 Ml Bottle) 1 drop EYE- LEFT BID [facility] Last Admin: 08/12/24 10:37 Dose: 1 drop Documented By: ROSE Buprenorphine/Naloxone (Buprenorphine/Naloxone 8/2 Mg Film) 1 film SUBLINGUAL BID@0800,1400 [facility] Last Admin: 08/12/24 10:37 Dose: 1 film Documented By: ROSE Ceftriaxone Sodium (Ceftriaxone Sodium 1 Gm Vial) 1 gm IVPUSH Q24H [facility] Last Admin: 08/11/24 17:27 Dose: 1 gm Documented By: ILYA Docusate Sodium (Docusate Sodium 100 Mg Capsule) 200 mg PO BEDTIME [facility] Last Admin: 08/11/24 22:09 Dose: 200 mg Documented By: IRMA Dorzolamide/Timolol (Dorzolamide/Timolo 2.23%/0.68% 10 Ml Drbtl) 1 drop EYE- LEFT BID [facility] Last Admin: 08/12/24 10:37 Dose: 1 drop Documented By: ROSE Enoxaparin Sodium (Enoxaparin Sodium 40 Mg/0.4 Ml Syringe) 40 mg SUBCUT Q24H [facility] Last Admin: 08/11/24 17:27 Dose: 40 mg Documented By: ILYA Glipizide (Glipizide Xl 5 Mg Tab.Er.24) 5 mg PO DAILY [facility] Last Admin: 08/12/24 10:36 Dose: 5 mg Documented By: ROSE Azithromycin 500 mg/ Sodium (Chloride) 250 mls @ 125 mls/hr IV Q24H [facility] Last Admin: 08/12/24 10:37 Dose: 125 mls/hr Documented By: ROSE Insulin Glargine (Insulin Glargine,Hum.Rec.Anlog 100 Unit/Ml 10 Ml Vial) 20 unit SUBCUT BEDTIME [facility] Last Admin: 08/11/24 22:09 Dose: 20 unit Documented By: IRMA Lisinopril (Lisinopril 40 Mg Tablet) 40 mg PO BID [facility]; Protocol Last Admin: 08/12/24 10:36 Dose: 40 mg Documented By: ROSE Loratadine (Loratadine 10 Mg Tablet) 10 mg PO DAILY [facility] Last Admin: 08/12/24 10:36 Dose: 10 mg Documented By: ROSE Magnesium Hydroxide (Milk Of Magnesia 30 Ml Oral.Susp) 30 ml PO TID PRN PRN Reason: Constipation Last Admin: 08/12/24 10:48 Dose: 30 ml Documented By: ROSE Metformin HCl (Metformin Hcl 1,000 Mg Tablet) 1,000 mg PO BID [facility] Last Admin: 08/12/24 10:36 Dose: 1,000 mg Documented By: ROSE Metoprolol Succinate (Metoprolol Succinate Er 25 Mg Tab.Er.24h) 25 mg PO DAILY [facility]; Protocol Last Admin: 12/14/24 10:36 Dose: 25 mg Documented By: ROSE Olanzapine (Olanzapine 5 Mg Tablet) 5 mg PO BEDTIME [facility] Last Admin: 08/11/24 22:08 Dose: 5 mg Documented By: IRMA Omeprazole (Omeprazole 20 Mg Capsule.Dr) 20 mg PO DAILY@0630 [facility] Last Admin: 08/12/24 06:14 Dose: Not Given Documented By: IRMA Non-Admin Reason: Patient Asleep Sodium Biphosphate/Sodium Phosphate (Sodium Phosphate,[place]-Dibasic 133 Ml Enema) 133 ml OR ONCE PRN PRN Reason: Constipation Labs 08/10/24 04:18 08/12/24 06:22 Labs: Laboratory Results - last 24 hr 08/11/24 08/11/24 08/12/24 16:28 20:07 06:22 Hold Purple Top SEE NOTE Anion Gap 13 Estim Creat Clear Calc Estimated GFR POC Glucose 198 H 261 H Random Glucose Calcium Total Bilirubin AST ALT Alkaline Phosphatase Total Protein Albumin 08/12/24 08/12/24 08/12/24 06:22 06:22 06:22 Hold Purple Top Anion Gap 13 Estim Creat Clear Calc 71.0 88.5 Estimated GFR > 60 > 60 POC Glucose Random Glucose 221 H Calcium Total Bilirubin AST ALT Alkaline Phosphatase Total Protein Albumin 08/12/24 08/12/24 08/12/24 06:22 06:22 07:22 Hold Purple Top Anion Gap Estim Creat Clear Calc Estimated GFR POC Glucose 188 H Random Glucose 222 H Calcium 9.7 9.7 Total Bilirubin 0.4 AST 24 ALT 33 Alkaline Phosphatase 71 Total Protein 7.0 Albumin 4.0 Microbiology Microbiology Results: Microbiology 08/09/24 08:27 Blood Culture - Preliminary Blood - Venous No growth after 48 hours. 08/09/24 08:28 Blood Culture - Preliminary Blood - Venous No growth after 48 hours. Assessment and Plan (1) Opioid use disorder: Status: Acute (2) Acute encephalopathy: Status: Acute (3) Respiratory failure: Status: Acute Plan 73 years old male with PMH of hypertension, opiate use disorder, and type 2 diabetes presented to the hospital with complains of shortness of breath and altered mental status. As per family had shortness of breath x5 days , in ED workup showed CO2 narcosis with CO2 of 90 treated with BiPAP and subsequently admitted to ICU patient weaned of BiPAP placed on high-flow, confusion resolved, pCO2 improved to 67, patient transitioned to IMC on 08/10. Acute encephalopathy: Resolved Possibly secondary to drug overdose and CO2 narcosis UDS tested positive for opiates, fentanyl Suboxone CT head did not show any acute intracranial pathology Acute hypercapnic respiratory failure: Currently on BiPAP at night support due to CO2 narcosis Chest x-ray suggestive of right lower lobe pneumonia possibly due to aspiration CTA chest showed no PE, small right pleural effusion and bibasilar atelectasis Respiratory viral panel negative Continue ceftriaxone azithromycin for antibiotic coverage - started 08/09, currently day #4 Lactate normal, blood cultures negative As per patient he has an old CPAP machine, requesting for new machine has not use CPAP for a long time pulm to see if he needs inpt sleep study Contraction alkalosis improving continue diamox Substance use disorder Urine toxicology positive for opiates, fentanyl and Suboxone Seen by Addiction Team started back on Suboxone Mood disorder on olanzapine and trazodone psych consult pending for worsening depression, DC Provigil started in ICU, continue Zyprexa, hold trazodone due to daytime sedation Hypertension on lisinopril 40 mg b.i.d., and metoprolol 25 daily will resume amlodipine 10 mg due to elevated BP Diabetes mellitus type 2 on Levemir 42 units b.i.d., glipizide 5 mg daily and metformin 1000 mg by mouth b.i.d. at home, currently on Lantus 20 units, metformin 1000 b.i.d. and glipizide 5 mg daily follow blood sugars closely - slightly on the higher side, will add sliding scale Hyperlipidemia continue Lipitor DVT Prophylaxis: Lovenox, GI prophylaxis Prilosec Full code reason for continued hospitalization: respiratory failure due to pneumonia + pulmonary eval to see if he needs inpt sleep study Quality Stroke Does the patient have a stroke diagnosis?: No VTE Prior VTE?: No VTE Risk Level:: Medical - low VTE Device Contraindication: N/A - Device Ordered VTE Drug Contraindication: N/A - Med Ordered
[2024-08-12 11:31] LABS: Glucose, Whole Blood 217 mg/dL (60-115)
[2024-08-12] MEDS: Insulin Lispro 100 UNIT/ML 3 ML VIAL SUBCUT ×3 (12:09→20:55)
--- NOTE | 2024-08-12 12:13 | MHC.RECOVRN ---
Met with pt in 353 to follow up on suboxone titration and provide support.? Pt awake, alert, easily engages in conversation, sitting up in recliner with visitor at bedside. Pt reports feeling good and I want to go home, . Pt denies any W/D sx and none observed. Pt does not appear over sedated. Spoke with pt's nurse who also denies any S/S of W/D or oversedation. No COWS ordered so T/W contacted Dr. Kirby and requested order for this screen. Pt denies other concerns at this time.? T/w available as needed. Will F/U tomorrow to assess need for further suboxone increase.
[2024-08-12] MEDS: cefTRIAXone sodium 1 GM VIAL IVPUSH (16:25)
[2024-08-12] MEDS: Enoxaparin Sodium 40 MG/0.4 ML SYRINGE SUBCUT (16:26)
[2024-08-12 16:33] LABS: Glucose, Whole Blood 163 mg/dL (60-115)
[2024-08-12] MEDS: polyethylene glycoL 3350 17 GM POWD.PACK PO (18:01)
[2024-08-12] MEDS: Docusate Sodium 100 MG CAPSULE 200 MG PO (20:54)
[2024-08-12] MEDS: Atorvastatin Calcium 40 MG TABLET PO (20:54)
[2024-08-12] MEDS: Insulin Glargine,Hum.rec.anlog 100 UNIT/ML 10 ML VIAL 20 UNIT SUBCUT (20:55)
[2024-08-12] MEDS: OLANZapine 5 MG TABLET PO (20:55)
[2024-08-12 20:58] LABS: Glucose, Whole Blood 156 mg/dL (60-115)
--- NOTE | 2024-08-12 23:24 | PC.RT ---
Patient refuses BiPAP. Unit is in room on standby. Pt requested to alert staff if He wishes to wear it.
[2024-08-13 04:58] VITALS: BP 124/75; PULSE 74; RESP 18; TEMP 36.4; O2SAT 93
[2024-08-13 05:30] VITALS: BMI 32.6
[2024-08-13 07:51] LABS: Glucose, Whole Blood 133 mg/dL (60-115)
[2024-08-13 08:00] VITALS: BP 133/75; PULSE 82; RESP 20; TEMP 36.6; O2SAT 96
[2024-08-13 08:22] VITALS: BP 133/75; PULSE 82
[2024-08-13] MEDS: lisinopriL 40 MG TABLET PO (08:22)
[2024-08-13] MEDS: Brimonidine Tartrate 0.2% Oph 5 ML BOTTLE 1 DROP EYE-LEFT (08:22)
[2024-08-13] MEDS: Metoprolol Succinate ER 25 MG TAB.ER.24H PO (08:22)
[2024-08-13] MEDS: Dorzolamide/Timolo 2.23%/0.68% 10 ML DRBTL 1 DROP EYE-LEFT (08:22)
[2024-08-13] MEDS: glipiZIDE XL 5 MG TAB.ER.24 PO (08:22)
[2024-08-13 08:23] VITALS: BP 133/75
[2024-08-13] MEDS: Loratadine 10 MG TABLET PO (08:23)
[2024-08-13] MEDS: Buprenorphine/Naloxone 8/2 mg FILM 1 FILM SUBLINGUAL ×2 (08:23→14:44)
[2024-08-13] MEDS: metFORMIN HCl 1,000 MG TABLET 1000 MG PO (08:23)
[2024-08-13] MEDS: acetaZOLAMIDE 250 MG TABLET PO (08:23)
[2024-08-13] MEDS: amLODIPine Besylate 10 MG TABLET PO (08:23)
[2024-08-13] MEDS: Azithromycin 500 MG in 0.9 % Sodium Chloride 250 ML 125 MG IV (08:24)
[2024-08-13] MEDS: Milk of Magnesia 30 ML ORAL.SUSP PO (08:37)
[2024-08-13 08:57] LABS: Alanine Aminotransferase 30 U/L (0-40); Alkaline Phosphatase 71 U/L (39-117); Anion Gap 11 (12-20); Aspartate Amino Transferase 22 U/L (5-37); Bilirubin Total 0.3 mg/dL (0.0-1.0); Blood Urea Nitrogen 29 mg/dL (9-16); Calcium 9.2 mg/dL (8.4-10.2); Carbon Dioxide 28 mmol/L (22-29); Chloride 104 mmol/L (96-108); Creatinine Clr Calc Pharmacy 79.3; Estimated Glomerular Filt Rate > 60; Glucose Random 161 mg/dL (60-115); Potassium 3.9 mmol/L (3.3-5.1); Sodium 139 mmol/L (135-145)
--- NOTE | 2024-08-13 09:27 | P.CONPL_ITS ---
History of Present Illness History of Present Illness Consult date: 08/12/24 Chief complaint: Acute Respiratory failure Narrative: This is an inpatient pulmonary consultation. the patient is a 73 years old male with PMH of hypertension, opiate use disorder, and type 2 diabetes presented to the hospital with complains of shortness of breath and altered mental status. He was somnolent and was not able to answer questions, his daughter stated that he has been short of breath for past 5 days that has slowly worsened associated with some with no aggravating or relieving factors. In the ED patient was significantly altered initial ABG showed CO2 narcosis with pCO2 of 90 so was placed on BiPAP, his repeat blood gas showed improvement in pCO2 to 70 but mental status so MICU is consulted for admission. He was then transferred to the [facility]. He is doing well. Has a history of JAUN and has a PAP therapy, but the patient says that it broke. He does not remember the company that provided the PAP. HE would need to have in in lab sleep study at this time. Review of Systems 2 Review of Systems: Constitutional : No Weight loss, No Fever, No Chills ENT/Mouth : No sore throat, No Rhinorrhea Eyes: No Eye Pain, No Swelling Cardiovascular : pos Chest Pain, pos SOB, no Dyspnea on Exertion, No Orthopnea, No Edema, No Palpitations Respiratory : No Cough, No Sputum Gastrointestinal : no Nausea, No Vomiting, No Diarrhea, No abdominal Pain, No Hematochezia, No Melena Skin : No Skin Lesions, No rash Neuro : No Weakness, No Numbness, No Dizziness, No Headache +difficulty walking Psych : No Anxiety/Panic, No Depression All other systems reviewed and are negative [facility] Past Medical History Medical History (Updated 08/13/24 @ 09:32 by Jad Bolanos MD) Opioid use disorder Closed compression fracture of body of L1 vertebra Left against medical advice Post-traumatic arthritis of left ankle History of fracture of left ankle COPD (chronic obstructive pulmonary disease) Opioid dependence Hypertension Prepatellar bursitis, left knee CAD (coronary artery disease) Diabetes mellitus JAUN (obstructive sleep apnea) COPD (chronic obstructive pulmonary disease) Genital herpes Opioid dependence on agonist therapy Anxiety History of adenomatous polyp of colon Chronic constipation GERD (gastroesophageal reflux disease) Pancreatic abnormality Hypertension Family History Family History Mother No problems noted. Father Liver cancer Surgical History Surgical History (Updated 05/04/24 @ 00:02 by Anel Marquez) S/P hardware removal History of ankle surgery Social History Social History Household Members: None Housing: Apartment Do you presently have visiting nurse or other home services: Yes Unable to assess alcohol history related to: Unknown Alcohol intake: never Comment: Refusing alarms,call delaney within reach Patient Tobacco Use Status: Current everyday Tobacco user Tobacco use type: Cigarette Cigarettes Per Day: 3 e-Cigarette/Vaping Use: Currently Using Second Hand Smoke Exposure: No Substance Use Type: Heroin Advance Directives Date on File: 01/28/22 service: No Current occupational status: retired and disabled Current occupation: right handed Meds Allergies Allergy/AdvReac Type Severity Reaction Status Date / Time No Known Allergies Allergy Verified 08/09/24 06:14 Active Medications: Current Medications Amlodipine Besylate (Amlodipine Besylate 10 Mg Tablet) 10 mg PO DAILY SAM; Protocol Last Admin: 08/13/24 08:23 Dose: 10 mg Atorvastatin Calcium (Atorvastatin Calcium 40 Mg Tablet) 40 mg PO BEDTIME SAM Last Admin: 08/12/24 20:54 Dose: 40 mg Brimonidine Tartrate (Brimonidine Tartrate 0.2% Oph 5 Ml Bottle) 1 drop EYE- LEFT BID SAM Last Admin: 08/13/24 08:22 Dose: 1 drop Buprenorphine/Naloxone (Buprenorphine/Naloxone 8/2 Mg Film) 1 film SUBLINGUAL BID@0800,1400 SAM Last Admin: 08/13/24 08:23 Dose: 1 film Ceftriaxone Sodium (Ceftriaxone Sodium 1 Gm Vial) 1 gm IVPUSH Q24H SAM Last Admin: 08/12/24 16:25 Dose: 1 gm Docusate Sodium (Docusate Sodium 100 Mg Capsule) 200 mg PO BEDTIME SAM Last Admin: 08/12/24 20:54 Dose: 200 mg Dorzolamide/Timolol (Dorzolamide/Timolo 2.23%/0.68% 10 Ml Drbtl) 1 drop EYE- LEFT BID SAM Last Admin: 08/13/24 08:22 Dose: 1 drop Enoxaparin Sodium (Enoxaparin Sodium 40 Mg/0.4 Ml Syringe) 40 mg SUBCUT Q24H SAM Last Admin: 08/12/24 16:26 Dose: 40 mg Glipizide (Glipizide Xl 5 Mg Tab.Er.24) 5 mg PO DAILY [facility] Last Admin: 08/13/24 08:22 Dose: 5 mg Glucose (Glucose Gel 15 Gm Gel..Gram.) 15 gm PO Q15M PRN; Protocol PRN Reason: per Hypoglycemia Standing Ord. Azithromycin 500 mg/ Sodium (Chloride) 250 mls @ 125 mls/hr IV Q24H [facility] Last Admin: 08/13/24 08:24 Dose: 125 mls/hr Dextrose (D10) 250 mls @ 750 mls/hr IV Q15M PRN; Protocol PRN Reason: per Hypoglycemia Standing Ord. Insulin Glargine (Insulin Glargine,Hum.Rec.Anlog 100 Unit/Ml 10 Ml Vial) 20 unit SUBCUT BEDTIME [facility] Last Admin: 08/12/24 20:55 Dose: 20 unit Insulin Human Lispro (Insulin Lispro 100 Unit/Ml 3 Ml Vial) 0 unit SUBCUT QIDACHS [facility]; Protocol Last Admin: 08/13/24 08:23 Dose: Not Given Lisinopril (Lisinopril 40 Mg Tablet) 40 mg PO BID [facility]; Protocol Last Admin: 08/13/24 08:22 Dose: 40 mg Loratadine (Loratadine 10 Mg Tablet) 10 mg PO DAILY [facility] Last Admin: 08/13/24 08:23 Dose: 10 mg Magnesium Hydroxide (Milk Of Magnesia 30 Ml Oral.Susp) 30 ml PO TID PRN PRN Reason: Constipation Last Admin: 08/13/24 08:37 Dose: 30 ml Metformin HCl (Metformin Hcl 1,000 Mg Tablet) 1,000 mg PO BID [facility] Last Admin: 08/13/24 08:23 Dose: 1,000 mg Metoprolol Succinate (Metoprolol Succinate Er 25 Mg Tab.Er.24h) 25 mg PO DAILY [facility]; Protocol Last Admin: 08/13/24 08:22 Dose: 25 mg Olanzapine (Olanzapine 5 Mg Tablet) 5 mg PO BEDTIME [facility] Last Admin: 08/12/24 20:55 Dose: 5 mg Omeprazole (Omeprazole 20 Mg Capsule.Dr) 20 mg PO DAILY@0630 [facility] Last Admin: 08/13/24 06:39 Dose: Not Given Polyethylene Glycol (Polyethylene Glycol 3350 17 Gm Powd.Pack) 17 gm PO DAILY PRN PRN Reason: Constipation Last Admin: 08/12/24 18:01 Dose: 17 gm Sodium Biphosphate/Sodium Phosphate (Sodium Phosphate,[place]-Dibasic 133 Ml Enema) 133 ml CA ONCE PRN PRN Reason: Constipation Home Medications ?Medication ?Instructions ?Recorded ?Confirmed ?Last Taken ?Type amlodipine 10 mg tablet 10 mg PO DAILY 02/01/23 08/09/24 1 Day Ago History ~08/08/24 atorvastatin 40 mg tablet 40 mg PO BEDTIME 02/01/23 08/09/24 1 Day Ago History ~08/08/24 buprenorphine 8 mg-naloxone 2 mg 1 film sublingual TID 02/01/23 08/09/24 1 Day Ago History sublingual film ~08/08/24 dorzolamide 22.3 mg-timolol 6.8 1 drp ophthalmic-Left BID 02/01/23 08/09/24 1 Day Ago History mg/mL eye drops ~08/08/24 glipizide 5 mg tablet, extended 5 mg PO DAILY 02/01/23 08/09/24 1 Day Ago History release 24 hr ~08/08/24 lisinopril 40 mg tablet 40 mg PO BID 02/01/23 08/09/24 1 Day Ago History ~08/08/24 loratadine 10 mg tablet 10 mg PO DAILY 02/01/23 08/09/24 1 Day Ago History ~08/08/24 metformin 1,000 mg tablet 1,000 mg PO BID 02/01/23 08/09/24 1 Day Ago History ~08/08/24 olanzapine 5 mg tablet 5 mg PO BEDTIME 02/01/23 08/09/24 1 Day Ago History ~08/08/24 omeprazole 20 mg capsule,delayed 20 mg PO DAILY@0630 02/01/23 08/09/24 1 Day Ago History release ~08/08/24 trazodone 100 mg tablet 100 mg PO BEDTIME 02/01/23 08/09/24 1 Day Ago History ~08/08/24 insulin detemir U-100 100 unit/mL 42 unit subcut BID 06/20/23 08/09/24 1 Day Ago History subcutaneous solution (Levemir ~08/08/24 U-100 Insulin) omega-3 acid ethyl esters 1 gram 1 cap PO TID 06/20/23 08/09/24 1 Day Ago History capsule ~08/08/24 fluticasone furoate 100 1 inh inhalation DAILY PRN 01/14/24 08/09/24 1 Day Ago History mcg/actuation blister powder for Shortness Of Breath Or Wheezing ~08/08/24 inhalation (Arnuity Ellipta) metoprolol succinate 25 mg 25 mg PO QAM 01/14/24 08/09/24 1 Day Ago History tablet,extended release 24 hr ~08/08/24 brimonidine 0.2 % eye drops 1 drp ophthalmic-Left BID 08/09/24 08/09/24 Unknown History Physical Exam 2 Vital Signs: Vital Signs: Last Vital Signs Temp 97.9 F 08/13/24 08:00 Pulse 82 08/13/24 08:22 Resp 20 08/13/24 08:00 BP 133/75 08/13/24 08:23 Pulse Ox 96 08/13/24 08:00 O2 Del Method Nasal Cannula 08/13/24 08:00 O2 Flow Rate 3 08/13/24 08:00 FiO2 35 08/11/24 08:00 BMI result Body Mass Index 32.6 Const: Other: General resting comfortably in no acute distress. Neck supple no JVD. CVS regular rate rhythm, Respiratory lungs clear to auscultation, no respiratory distress, no wheeze, no rhonchi. Gastrointestinal abdomen soft, non tender, bowel sounds audible, no guarding , no rigidity. Extremities no edema. Neuro non focal Skin no rash Psych appropriate affect Results Laboratory Findings 08/10/24 04:18 08/13/24 08:21 ABG, PT/INR, D-dimer: PT/INR, D-dimer PT 13.4 SEC (10.9-12.4) H 08/09/24 06:23 INR 1.2 (0.9-1.1) H 08/09/24 06:23 Abnormal lab findings: Abnormal Labs 08/09/24 08/09/24 08/09/24 06:23 06:24 07:48 WBC 11.2 H RBC 3.81 L Hgb 10.0 L Hct 32.2 L MCH 26.2 L MCHC Immature Gran % (Auto) 1.8 H Neut % (Auto) 83.5 H Lymph % (Auto) 6.8 L [place] % (Auto) Lymph # (Auto) 0.8 L Abs Immat Gran (auto) 0.20 H Absolute Neuts (auto) 9.4 H PT 13.4 H INR 1.2 H ABG pH at Pt Temp 7.23 L ABG pCO2 at Pt Temp 93 H* ABG pO2 at Pt Temp 53 L ABG HCO3 39 H VBG pH VBG HCO3 Sodium 134 L Chloride 92 L Carbon Dioxide 36 H Anion Gap 11 L BUN 19 H POC Glucose Random Glucose 206 H AST 41 H ALT 55 H C-Reactive Protein 7.15 H B-Natriuretic Peptide 269 H Total Protein Lipase 5 L Urine Protein Urine Glucose (UA) Urine Blood Nasal S. aureus Screen Urine Opiates Screen Ur Buprenorphine Scrn Urine Fentanyl Screen 08/09/24 08/09/24 08/09/24 10:07 11:18 18:19 WBC RBC Hgb Hct MCH MCHC Immature Gran % (Auto) Neut % (Auto) Lymph % (Auto) [place] % (Auto) Lymph # (Auto) Abs Immat Gran (auto) Absolute Neuts (auto) PT INR ABG pH at Pt Temp ABG pCO2 at Pt Temp ABG pO2 at Pt Temp ABG HCO3 VBG pH VBG HCO3 42 H Sodium Chloride Carbon Dioxide Anion Gap BUN POC Glucose 153 H Random Glucose AST ALT C-Reactive Protein B-Natriuretic Peptide Total Protein Lipase Urine Protein 30 (1+) H Urine Glucose (UA) 100 H Urine Blood Trace H Nasal S. aureus Screen Urine Opiates Screen POSITIVE H Ur Buprenorphine Scrn Positive H Urine Fentanyl Screen POSITIVE H 08/09/24 08/09/24 08/09/24 18:33 22:31 23:20 WBC RBC Hgb Hct MCH MCHC Immature Gran % (Auto) Neut % (Auto) Lymph % (Auto) [place] % (Auto) Lymph # (Auto) Abs Immat Gran (auto) Absolute Neuts (auto) PT INR ABG pH at Pt Temp 7.34 L ABG pCO2 at Pt Temp 84 H* ABG pO2 at Pt Temp ABG HCO3 46 H VBG pH VBG HCO3 Sodium Chloride Carbon Dioxide Anion Gap BUN POC Glucose 146 H Random Glucose AST ALT C-Reactive Protein B-Natriuretic Peptide Total Protein Lipase Urine Protein Urine Glucose (UA) Urine Blood Nasal S. aureus Screen POSITIVE A Urine Opiates Screen Ur Buprenorphine Scrn Urine Fentanyl Screen 08/10/24 08/10/2408/10/24 04:13 04:18 06:59 WBC RBC 3.56 L Hgb 9.1 L Hct 29.7 L MCH 25.6 L MCHC 30.6 L Immature Gran % (Auto) 0.8 H Neut % (Auto) Lymph % (Auto) 15.3 L [place] % (Auto) 13.5 H Lymph # (Auto) 1.1 L Abs Immat Gran (auto) 0.06 H Absolute Neuts (auto) PT INR ABG pH at Pt Temp ABG pCO2 at Pt Temp ABG pO2 at Pt Temp ABG HCO3 VBG pH 7.45 H VBG HCO3 46 H Sodium Chloride Carbon Dioxide 38 H Anion Gap 10 L BUN POC Glucose Random Glucose 133 H AST ALT C-Reactive Protein B-Natriuretic Peptide Total Protein 6.1 L Lipase Urine Protein Urine Glucose (UA) Urine Blood Nasal S. aureus Screen Urine Opiates Screen Ur Buprenorphine Scrn Urine Fentanyl Screen 08/10/24 08/10/24 08/10/24 11:21 16:40 20:14 WBC RBC Hgb Hct MCH MCHC Immature Gran % (Auto) Neut % (Auto) Lymph % (Auto) [place] % (Auto) Lymph # (Auto) Abs Immat Gran (auto) Absolute Neuts (auto) PT INR ABG pH at Pt Temp ABG pCO2 at Pt Temp ABG pO2 at Pt Temp ABG HCO3 VBG pH VBG HCO3 Sodium Chloride Carbon Dioxide Anion Gap BUN POC Glucose 194 H 215 H 282 H Random Glucose AST ALT C-Reactive Protein B-Natriuretic Peptide Total Protein Lipase Urine Protein Urine Glucose (UA) Urine Blood Nasal S. aureus Screen Urine Opiates Screen Ur Buprenorphine Scrn Urine Fentanyl Screen 08/11/24 08/11/24 08/11/24 07:53 08:14 11:00 WBC RBC Hgb Hct MCH MCHC Immature Gran % (Auto) Neut % (Auto) Lymph % (Auto) [place] % (Auto) Lymph # (Auto) Abs Immat Gran (auto) Absolute Neuts (auto) PT INR ABG pH at Pt Temp ABG pCO2 at Pt Temp ABG pO2 at Pt Temp ABG HCO3 VBG pH VBG HCO3 Sodium Chloride 94 L Carbon Dioxide 39 H Anion Gap 11 L BUN POC Glucose 163 H 226 H Random Glucose 155 H AST ALT C-Reactive Protein B-Natriuretic Peptide Total Protein Lipase Urine Protein Urine Glucose (UA) Urine Blood Nasal S. aureus Screen Urine Opiates Screen Ur Buprenorphine Scrn Urine Fentanyl Screen 08/11/24 08/11/24 08/12/24 16:28 20:07 06:22 WBC RBC Hgb Hct MCH MCHC Immature Gran % (Auto) Neut % (Auto) Lymph % (Auto) [place] % (Auto) Lymph # (Auto) Abs Immat Gran (auto) Absolute Neuts (auto) PT INR ABG pH at Pt Temp ABG pCO2 at Pt Temp ABG pO2 at Pt Temp ABG HCO3 VBG pH VBG HCO3 Sodium Chloride Carbon Dioxide 31 H Anion Gap BUN POC Glucose 198 H 261 H Random Glucose AST ALT C-Reactive Protein B-Natriuretic Peptide Total Protein Lipase Urine Protein Urine Glucose (UA) Urine Blood Nasal S. aureus Screen Urine Opiates Screen Ur Buprenorphine Scrn Urine Fentanyl Screen 08/12/24 08/12/24 08/12/24 06:22 06:22 07:22 WBC RBC Hgb Hct MCH MCHC Immature Gran % (Auto) Neut % (Auto) Lymph % (Auto) [place] % (Auto) Lymph # (Auto) Abs Immat Gran (auto) Absolute Neuts (auto) PT INR ABG pH at Pt Temp ABG pCO2 at Pt Temp ABG pO2 at Pt Temp ABG HCO3 VBG pH VBG HCO3 Sodium Chloride Carbon Dioxide 32 H Anion Gap BUN 18 H POC Glucose 188 H Random Glucose 221 H 222 H AST ALT C-Reactive Protein B-Natriuretic Peptide Total Protein Lipase Urine Protein Urine Glucose (UA) Urine Blood Nasal S. aureus Screen Urine Opiates Screen Ur Buprenorphine Scrn Urine Fentanyl Screen 08/12/24 08/12/24 08/12/24 11:27 16:18 20:47 WBC RBC Hgb Hct MCH MCHC Immature Gran % (Auto) Neut % (Auto) Lymph % (Auto) [place] % (Auto) Lymph # (Auto) Abs Immat Gran (auto) Absolute Neuts (auto) PT INR ABG pH at Pt Temp ABG pCO2 at Pt Temp ABG pO2 at Pt Temp ABG HCO3 VBG pH VBG HCO3 Sodium Chloride Carbon Dioxide Anion Gap BUN POC Glucose 217 H 163 H 156 H Random Glucose AST ALT C-Reactive Protein B-Natriuretic Peptide Total Protein Lipase Urine Protein Urine Glucose (UA) Urine Blood Nasal S. aureus Screen Urine Opiates Screen Ur Buprenorphine Scrn Urine Fentanyl Screen 08/13/24 08/13/24 07:45 08:21 WBC RBC Hgb Hct MCH MCHC Immature Gran % (Auto) Neut % (Auto) Lymph % (Auto) [place] % (Auto) Lymph # (Auto) Abs Immat Gran (auto) Absolute Neuts (auto) PT INR ABG pH at Pt Temp ABG pCO2 at Pt Temp ABG pO2 at Pt Temp ABG HCO3 VBG pH VBG HCO3 Sodium Chloride Carbon Dioxide Anion Gap 11 L BUN 29 H POC Glucose 133 H Random Glucose 161 H AST ALT C-Reactive Protein B-Natriuretic Peptide Total Protein Lipase Urine Protein Urine Glucose (UA) Urine Blood Nasal S. aureus Screen Urine Opiates Screen Ur Buprenorphine Scrn Urine Fentanyl Screen Microbiology: Microbiology 08/09/24 08:27 Blood - Venous Blood Culture - Preliminary No growth after 48 hours. 08/09/24 08:28 Blood - Venous Blood Culture - Preliminary No growth after 48 hours. Assessment and Plan (1) Respiratory failure: Qualifiers: Chronicity: acute on chronic Respiratory failure complication: h ypercapnia Qualified Code(s): J96.22 - Acute and chronic respiratory failure with hypercapnia Status: Acute (2) Opioid use disorder: Status: Acute (3) JAUN (obstructive sleep apnea): Status: Acute Plan The patient will need to have an outpt in lab sleep study to address the question of BIPAP versus IVAPS Will need to be set up with urgent outpt pulmonary hospital f/u Procedures Date of Service Date of Service: 08/13/24
--- NOTE | 2024-08-13 10:12 | MHC.RECOVRN ---
Met with pt in 459 to follow up and provide support.?[employer]. Pt resting in bed but easily arousable,, alert, easily engages in conversation. Pt rCOWS score this AM was a 1 and pt. denies any W/D sx. None observed. Pt is comfortable remaining on 16mg suboxone/day at this time. He will F/U in home clinic once D/C from hospital. Report was given to nurse Scarlett, provider Dr. Kirby and ACS director Gwen Mann, SONIA Pt denies other concerns at this time.? T/w available as needed.
[2024-08-13 11:37] LABS: Glucose, Whole Blood 191 mg/dL (60-115)
[2024-08-13] MEDS: Insulin Lispro 100 UNIT/ML 3 ML VIAL SUBCUT (11:49)
[2024-08-13 12:00] VITALS: BP 97/69; PULSE 74; RESP 18; TEMP 36.4; O2SAT 96
--- NOTE | 2024-08-13 12:40 | PM.DS ---
DS: Providers Provider Date of Service: 08/13/24 Date of admission: 08/09/24 16:03 Date of discharge: 08/13/24 Primary care physician: Jax Moe MD Consults: 08/10/24 17:18 Addiction Medicine Routine Consulting Provider: Addiction Covering Reason for consultation: polysubstance Has provider been notified: No 08/10/24 18:00 Consult to Psychiatry Routine Consulting Provider: [facility] Psych Covering Reason for consultation: depression Has provider been notified: No 08/11/24 16:07 Consult to Pulmonology Routine Consulting Provider: [facility] Pulmonology Services Reason for consultation: hypercapneic resp failure /? inpt sleep study Has provider been notified: No DS: Diagnosis Discharge Diagnosis (1) Respiratory failure: Status: Acute DS: Summary Hospital Course Hospital Course: HPI From the admission H&P: 73 years old male with PMH of hypertension, opiate use disorder, and type 2 diabetes presented to the hospital with complains of shortness of breath and altered mental status. He was somnolent and was not able to answer questions, his daughter stated that he has been short of breath for past 5 days that has slowly worsened associated with some with no aggravating or relieving factors. In the ED patient was significantly altered initial ABG showed CO2 narcosis with pCO2 of 90 so was placed on BiPAP, his repeat blood gas showed improvement in pCO2 to 70 but mental status so MICU is consulted for admission. Hospital Course: The patient was admitted to the intensive care unit for BiPAP support. He was initiated on IV antibiotics for his pneumonia. Over the course of 24 hours the patient was able to be successfully weaned to nasal cannula and was transitioned to the medical unit. There his care was continued with IV antibiotics. BiPAP therapy was ordered for nocturnal use, however the patient has refused. There was a question of whether or not the patient would need BiPAP at night versus CPAP. This was discussed with Dr. Bolanos from Pulmonary who stated that the patient would need an outpatient sleep study. However given the patient's ongoing noncompliance unclear if the patient would follow-up for this. Nonetheless a referral for Pulmonary has been given for eventual sleep study. The patient was also evaluated by addiction Medicine and his Suboxone dosing was adjusted. He will be discharged on 13/12 daily. He is to follow up with the addiction Medicine Clinic as an outpatient. He will be discharged home on 3 more days of antibiotics. He should continue to use his supplemental oxygen and CPAP as prescribed. Final discharge diagnosis: Acute on chronic hypercapnic respiratory failure Community-acquired pneumonia Chronic respiratory failure with hypoxia Contraction alkalosis Acute toxic metabolic encephalopathy Substance use disorder Mood disorder Hypertension Diabetes type 2 mellitus Hyperlipidemia Time Attestation Discharge Coordination Time (in mins): 40 Quality: Safe Use of Opioids Does Pt have an Active Cancer Diagnosis on the Problem List?: No Quality: Stroke Does the patient have a stroke diagnosis?: No Physical Exam Vital Signs: Vital Signs: Last Vital Signs Temp 97.6 F 08/13/24 12:00 Pulse 74 08/13/24 12:00 Resp 18 08/13/24 12:00 BP 97/69 08/13/24 12:00 Pulse Ox 96 08/13/24 12:00 O2 Del Method Nasal Cannula 08/13/24 12:00 O2 Flow Rate 2 08/13/24 12:00 FiO2 35 08/11/24 08:00 BMI result Body Mass Index 32.6 Const: Other: General - no acute distress, appears comfortable Cardiovascular - regular rate and rhythm, S1-S2 Lungs - improving air entry Abdomen - soft, nontender, no rebound or guarding Extremities - no edema bilaterally Neuro - awake and alert, no focal deficits DS: Data Data Completed and Pending Completed studies during hospitalization [Text1]: Procedures Drainage of Left Foot Skin, External Approach (06/30/22) Immobilization of Left Foot using Splint (01/27/22) Insertion of Infusion Device into Superior Vena Cava, Percutaneous Approach (02/13/22) Removal of Internal Fixation Device from Left Ankle Joint, Open Approach (06/30/22) Reposition Left Fibula with Internal Fixation Device, Open Approach (01/27/22) Reposition Left Tibia with Internal Fixation Device, Open Approach (01/27/22) Ultrasonography of Superior Vena Cava, Guidance (02/13/22) Labs on day of discharge: Laboratory Results - last 24 hr 08/12/24 08/12/24 08/13/24 16:18 20:47 07:45 Hold Purple Top Sodium Potassium Chloride Carbon Dioxide Anion Gap BUN Creatinine Estim Creat Clear Calc Estimated GFR POC Glucose 163 H 156 H 133 H Random Glucose Calcium Total Bilirubin AST ALT Alkaline Phosphatase Total Protein Albumin 08/13/24 08/13/24 08:21 11:23 Hold Purple Top SEE NOTE Sodium 139 Potassium 3.9 Chloride 104 Carbon Dioxide 28 Anion Gap 11 L BUN 29 H Creatinine 0.91 Estim Creat Clear Calc 79.3 Estimated GFR > 60 POC Glucose 191 H Random Glucose 161 H Calcium 9.2 Total Bilirubin 0.3 AST 22 ALT 30 Alkaline Phosphatase 71 Total Protein 7.0 Albumin 4.0 Preliminary micro results at discharge 08/09/24 08:27 Blood Culture - Preliminary Blood - Venous No growth after 48 hours. 08/09/24 08:28 Blood Culture - Preliminary Blood - Venous No growth after 48 hours. Discharge Plan Discharge Anticipated Discharge Date/Time: 08/13/24 12:27 Patient Disposition: Home, Self-Care Discharge Diagnosis: Respiratory failure Referrals: Jax Moe MD [Primary Care Provider] - 1 Week Gwen Mann CNP [Nurse Practitioner] - 1 Week Jad Bolanos MD [Physician] - 1 Week Discharge Medications: New cefuroxime axetil 500 mg tablet 500 mg PO Q12H Qty: 6 0RF azithromycin [Zithromax] 500 mg tablet 500 mg PO DAILY 3 Days Qty: 3 0RF buprenorphine-naloxone [Suboxone] 8-2 mg Film 1 film sublingual BID@0800,1400 Qty: 1 0RF Continued atorvastatin 40 mg tablet 40 mg PO BEDTIME olanzapine 5 mg tablet 5 mg PO BEDTIME glipizide 5 mg tablet extended release 24hr 5 mg PO DAILY trazodone 100 mg tablet 100 mg PO BEDTIME Rx Instructions: TDD = 400 mg amlodipine 10 mg tablet 10 mg PO DAILY metformin 1,000 mg tablet 1,000 mg PO BID omeprazole 20 mg capsule,delayed release(DR/EC) 20 mg PO DAILY@0630 dorzolamide-timolol 22.3-6.8 mg/mL drops 1 drp ophthalmic-Left BID lisinopril 40 mg tablet 40 mg PO BID loratadine 10 mg tablet 10 mg PO DAILY brimonidine 0.2 % drops 1 drp ophthalmic-Left BID omega-3 acid ethyl esters 1 gram capsule 1 cap PO TID Levemir U-100 Insulin 100 unit/mL solution 42 unit subcut BID metoprolol succinate 25 mg tablet extended release 24 hr 25 mg PO QAM Arnuity Ellipta 100 mcg/actuation blister with device 1 inh INHALATION DAILY PRN (Reason: Shortness Of Breath Or Wheezing) Discontinued buprenorphine-naloxone 8-2 mg film 1 film sublingual TID Stand Alone Forms: Patient Portal Discharge page Print Language: Nepali Care Plan Goals: To stay healthy and out of the hospital. Health Concerns: see discharge summary Plan of Treatment: see discharge summary Assessment: see discharge summary
--- NOTE | 2024-08-13 14:39 | MHC.CM.PN ---
Second IMM 08/13. Pt is medically cleared for discharge home self-care, pts daughter will transport him home today.
[2024-08-14 03:44] LABS: Strep Pneumo Ag urine Not Detected (Not Detected)
[2024-08-15 04:03] LABS: Legionella Ag Urine Not Detected (Not Detected)
[2024-08-15 22:03] LABS: Mycoplasma Pneumoniae - IgG 1.16 (<=0.90); Mycoplasma Pneumoniae - IgM 137 U/mL (<770)
== END 2024-08-13 15:28 | disposition home or self-care (01) | DRG 917 ==
LOC: HO.ED 16:23 → HO.EDOVER 16:35 → HO.ICU 16:50 → HO.IMC 08-10 18:16
PROVIDERS: Emergency Medicine; Hospitalist; Physician Assistant Medical; Admitting Provider Internal Medicine Critical Care Medicine; Emergency Provider Emergency Medicine; PCP Internal Medicine; Visit Provider Family Medicine
DX: T40.601A Poisoning by unspecified narcotics, accidental (unintentional), initial encounter (principal); G92.8 Other toxic encephalopathy; J96.22 Acute and chronic respiratory failure with hypercapnia; J18.9 Pneumonia, unspecified organism; F11.20 Opioid dependence, uncomplicated; E87.3 Alkalosis; G47.33 Obstructive sleep apnea (adult) (pediatric); F39 Unspecified mood [affective] disorder; K21.9 Gastro-esophageal reflux disease without esophagitis; F17.210 Nicotine dependence, cigarettes, uncomplicated; Z20.822 Contact with and (suspected) exposure to COVID-19; Z71.6 Tobacco abuse counseling; Z79.84 Long term (current) use of oral hypoglycemic drugs; Z79.899 Other long term (current) drug therapy
CPT/HCPCS: 36415; 36600; 70450; 71045; 71275; 80048; 80053; 80076; 80307; 81001; 82803; 82947; 83605; 83690; 83735; 83880; 84100; 84145; 84484; 85025; 85610; 86140; 86738; 87040; 87449; 87633; 87635; 87640; 87641; 87899; 93005; 94640; 94660; 99284; J0456; J0696; J1650; J1836; J1940; J2310; J2405; J2470; J2919; Q9967

== ENCOUNTER → 2024-08-09 06:05 | Outpatient (BNV) | payer OTHER, SELFPAY | PROVIDERS: Emergency Provider Emergency Medicine; PCP Internal Medicine; Visit Provider Internal Medicine Cardiovascular Disease | DX: R94.31 Abnormal electrocardiogram [ECG] [EKG] (principal) | CPT/HCPCS: 93010 ==

== ENCOUNTER → 2024-08-09 16:03 | Outpatient (BNV) | payer OTHER, SELFPAY | PROVIDERS: Admitting Provider Internal Medicine Critical Care Medicine; Emergency Provider Emergency Medicine; PCP Internal Medicine; Visit Provider Social Worker | DX: F39 Unspecified mood [affective] disorder (principal) | CPT/HCPCS: 99232 ==

== ENCOUNTER → 2024-08-09 16:03 | Outpatient (BNV) | payer OTHER, SELFPAY | PROVIDERS: Admitting Provider Internal Medicine Critical Care Medicine; Emergency Provider Emergency Medicine; PCP Internal Medicine; Visit Provider Hospitalist | DX: G93.40 Encephalopathy, unspecified (principal); J96.90 Respiratory failure, unspecified, unspecified whether with hypoxia or hypercapnia; F11.90 Opioid use, unspecified, uncomplicated | CPT/HCPCS: 99232; 99239 ==

== ENCOUNTER → 2024-08-09 16:03 | Outpatient (BNV) | payer OTHER, SELFPAY | PROVIDERS: Admitting Provider Internal Medicine Critical Care Medicine; Emergency Provider Emergency Medicine; PCP Internal Medicine; Visit Provider Hospitalist | DX: J96.22 Acute and chronic respiratory failure with hypercapnia (principal); F11.90 Opioid use, unspecified, uncomplicated; G47.33 Obstructive sleep apnea (adult) (pediatric) | CPT/HCPCS: 99223 ==

== ENCOUNTER → 2024-08-09 16:03 | Outpatient (BNV) | payer OTHER, SELFPAY | PROVIDERS: Admitting Provider Internal Medicine Critical Care Medicine; Emergency Provider Emergency Medicine; PCP Internal Medicine; Visit Provider Internal Medicine Critical Care Medicine | DX: J96.01 Acute respiratory failure with hypoxia (principal); J96.90 Respiratory failure, unspecified, unspecified whether with hypoxia or hypercapnia; G93.40 Encephalopathy, unspecified | CPT/HCPCS: 99223 ==

== ENCOUNTER → 2024-08-09 16:03 | Outpatient (BNV) | payer OTHER, SELFPAY | PROVIDERS: Admitting Provider Internal Medicine Critical Care Medicine; Emergency Provider Emergency Medicine; PCP Internal Medicine; Visit Provider Nurse Practitioner Psychiatric/Mental Health | DX: F11.90 Opioid use, unspecified, uncomplicated (principal) | CPT/HCPCS: 99231 ==

== ENCOUNTER 2024-08-21 18:21 | Emergency (ER) | payer OTHER, SELFPAY ==
--- NOTE | 2024-08-21 18:37 | PC.RT ---
Pt came in via EMS in active arrest, CPR in progress. Pt had an established Igel in place, being bag valve ventilated by cut in station operator. Concierge Receptionist states 3 failed intubation attempts in the field. Pt has bilateral breath sounds w/ CO2 reading mid 70's on monitor. RT took over ventilation on pt transfer to ER bed. MD attempted intubation w/ glide scope and manual blades x4 w/ success. Pt intubated w/ 7.5 ETT 27 @ lip. ETT confirmed w/ condensation, ETCO2 monitoring, and bilateral breath sounds. Pt was given ACLS level care by ER staff and MD. MD called TOD. ETT remains in place.
--- NOTE | 2024-08-21 18:42 | ED.GENADULT ---
HPI - General Adult General Chief complaint: Cardiac Arrest/CPR Stated complaint: CARDIAC ARREST Time Seen by Provider: 08/21/24 18:36 History of Present Illness ED Provider: Mariah FLEMING narrative: The patient is a 73-year-old male who was brought to the hospital by ambulance after sustaining an cqc-cy-imnakevu cardiac arrest. It is not clear who called 911. Apparently police were the 1st responders and initiated CPR. It was not clear how long the downtime before CPR was. Apparently the patient has been seen awake and alert about an hour before the police arrived but no other details are available. Paramedics report that the initial cardiac rhythm was PEA. During their attempts at resuscitation the patient developed what seemed to be ventricular fibrillation and he received several efforts at defibrillation and also was given amiodarone in addition to several doses of epinephrine as well as bicarb and calcium. The patient was recently in the hospital for shortness of breath, encephalopathy, and respiratory failure. He spent some time in the ICU on BiPAP. He was discharged 1 week ago on August 13. He was discharged to finish a course of azithromycin and cefuroxime. He had apparently also been started on Suboxone while in the hospital. Paramedics believe that there were packages of heroin or other narcotics on the scene at the site where the patient was found in cardiac arrest. Related Data Home Medications ?Medication ?Instructions ?Recorded ?Confirmed amlodipine 10 mg tablet 10 mg PO DAILY 02/01/23 08/09/24 atorvastatin 40 mg tablet 40 mg PO BEDTIME 02/01/23 08/09/24 dorzolamide 22.3 mg-timolol 6.8 1 drp ophthalmic-Left BID 02/01/23 08/09/24 mg/mL eye drops glipizide 5 mg tablet, extended 5 mg PO DAILY 02/01/23 08/09/24 release 24 hr lisinopril 40 mg tablet 40 mg PO BID 02/01/23 08/09/24 loratadine 10 mg tablet 10 mg PO DAILY 02/01/23 08/09/24 metformin 1,000 mg tablet 1,000 mg PO BID 02/01/23 08/09/24 olanzapine 5 mg tablet 5 mg PO BEDTIME 02/01/23 08/09/24 omeprazole 20 mg capsule,delayed 20 mg PO DAILY@0630 02/01/23 08/09/24 release trazodone 100 mg tablet 100 mg PO BEDTIME 02/01/23 08/09/24 insulin detemir U-100 100 unit/mL 42 unit subcut BID 06/20/23 08/09/24 subcutaneous solution (Levemir U-100 Insulin) omega-3 acid ethyl esters 1 gram 1 cap PO TID 06/20/23 08/09/24 capsule fluticasone furoate 100 1 inh inhalation DAILY PRN 01/14/24 08/09/24 mcg/actuation blister powder for Shortness Of Breath Or Wheezing inhalation (Arnuity Ellipta) metoprolol succinate 25 mg 25 mg PO QAM 01/14/24 08/09/24 tablet,extended release 24 hr brimonidine 0.2 % eye drops 1 drp ophthalmic-Left BID 08/09/24 08/09/24 Previous Rx's ?Medication ?Instructions ?Recorded azithromycin 500 mg tablet 500 mg PO DAILY 3 days #3 tabs 08/13/24 (Zithromax) buprenorphine 8 mg-naloxone 2 mg 1 film sublingual BID@0800,1400 #1 08/13/24 sublingual film (Suboxone) ea cefuroxime axetil 500 mg tablet 500 mg PO Q12H #6 tabs 08/13/24 Allergies Allergy/AdvReac Type Severity Reaction Status Date / Time No Known Allergies Allergy Verified 08/09/24 06:14 Review of Systems Review of Systems: Yes Unobtainable due to mental status [facility] Past Medical History Medical History (Updated 08/21/24 @ 19:54 by Demar Lemus MD) Mood disorder Acute encephalopathy Respiratory failure Acute respiratory failure with hypoxia Opioid use disorder Closed compression fracture of body of L1 vertebra Left against medical advice Post-traumatic arthritis of left ankle History of fracture of left ankle COPD (chronic obstructive pulmonary disease) Opioid dependence Hypertension Prepatellar bursitis, left knee CAD (coronary artery disease) Diabetes mellitus JAUN (obstructive sleep apnea) COPD (chronic obstructive pulmonary disease) Genital herpes Opioid dependence on agonist therapy Anxiety History of adenomatous polyp of colon Chronic constipation GERD (gastroesophageal reflux disease) Pancreatic abnormality Hypertension Surgical History (Updated 08/21/24 @ 00:01 by Anel Marquez) S/P hardware removal History of ankle surgery Family History Family History Mother No problems noted. Father Liver cancer Social History Social History Household Members: None Housing: Apartment Do you presently have visiting nurse or other home services: Yes Unable to assess alcohol history related to: Unknown Alcohol intake: never Comment: Refusing alarms,call delaney within reach Patient Tobacco Use Status: Current everyday Tobacco user Tobacco use type: Cigarette Cigarettes Per Day: 3 e-Cigarette/Vaping Use: Currently Using Second Hand Smoke Exposure: No Substance Use Type: Heroin Advance Directives: Yes Advance Directives on File: Yes Advance Directives Date on File: 01/28/22 service: No Current occupational status: retired and disabled Current occupation: right handed Physical Exam ED Vital Signs: BMI result Body Mass Index 30.5 Const Other: The patient arrived unresponsive and receiving CPR. He was receiving tyk-ctlzh-srkh ventilation via an advanced airway device. HENMT Other: Face was symmetrical. Mucous membranes moist. The patient had a very beefy tongue. Eyes Other: Pupils were mid sized and fixed. Neck Neck: Yes full ROM Resp Other: There were bilateral breath sounds with bag-valve mask ventilation Cardio Other: No heart tones GI Other: Abdomen was soft and not significantly distended or rigid. Skin Other: Skin was pale and dry Neuro Other: The patient was unresponsive and flaccid with no signs of life Extrem Other: No peripheral edema Medical Decision Making Medical Decision Making MDM Narrative: The patient was brought to the hospital by ambulance after a prolonged attempt at resuscitation from a cardiac arrest that may has been unwitnessed. I do not believe there was any bystander CPR. Police began CPR paramedics identified PEA as the initial rhythm. The patient received multiple rounds of epinephrine in the pre-hospital setting as well as amiodarone. There were the defibrillation for what was felt to be ventricular fibrillation. On arrival we continued CPR and I attempted to intubate the patient. I removed the adjunct airway device. I 1st used a glide scope but was unable to identify any structures that seemed discrete. Tongue seemed very fleshy and there may have been some generalized edema to the upper airway. Ultimately I was able to visualize the epiglottis with a MAC 3 blade and insert an ET tube sounds bilaterally and positive end-tidal CO2 readings. After 10 minutes of attempted resuscitation in the emergency department I felt that any ongoing attempts at resuscitation would likely be futile given the prolonged resuscitation in the pre-hospital setting as well as the possibility that there was no initial bystander CPR. Paramedics reported that there were what they thought bags of heroin on the scene. For this reason I contacted the medical billing and coding instructor and the case has been accepted for their jurisdiction. The medical billing and coding instructor case number is [id number]. The web coordinator I spoke with was Ilene Rueda Discharge Plan Discharge Clinical Impression: Cardiac arrest Patient Disposition: Prescriptions: No Action atorvastatin 40 mg tablet 40 mg PO BEDTIME olanzapine 5 mg tablet 5 mg PO BEDTIME glipizide 5 mg tablet extended release 24hr 5 mg PO DAILY trazodone 100 mg tablet 100 mg PO BEDTIME Rx Instructions: TDD = 400 mg amlodipine 10 mg tablet 10 mg PO DAILY metformin 1,000 mg tablet 1,000 mg PO BID omeprazole 20 mg capsule,delayed release(DR/EC) 20 mg PO DAILY@0630 dorzolamide-timolol 22.3-6.8 mg/mL drops 1 drp ophthalmic-Left BID lisinopril 40 mg tablet 40 mg PO BID loratadine 10 mg tablet 10 mg PO DAILY brimonidine 0.2 % drops 1 drp ophthalmic-Left BID cefuroxime axetil 500 mg tablet 500 mg PO Q12H Qty: 6 0RF azithromycin [Zithromax] 500 mg tablet 500 mg PO DAILY 3 Days Qty: 3 0RF buprenorphine-naloxone [Suboxone] 8-2 mg Film 1 film sublingual BID@0800,1400 Qty: 1 0RF omega-3 acid ethyl esters 1 gram capsule 1 cap PO TID Levemir U-100 Insulin 100 unit/mL solution 42 unit subcut BID metoprolol succinate 25 mg tablet extended release 24 hr 25 mg PO QAM Arnuity Ellipta 100 mcg/actuation blister with device 1 inh INHALATION DAILY PRN (Reason: Shortness Of Breath Or Wheezing) Print Language: Yi
[2024-08-21 18:58] VITALS: BMI 30.5
--- OUTSIDE RECORDS SUMMARY | 2024-08-21 19:00 | XMS_ITS | Data Portability ---
Author Organization [facility] - [facility] Address [address] [place] [id number] Care Team Providers Care Blocker Automatic Name Role Phone [facility] Referring Provider [facility] Referring Provider Assessment Encounter Date Assessment Date Assessment LastModified by Organization Details LastModified Time 02/11/2022 02/11/2022 71 YOM reportedly with L ankle surgery, however pt report it was left ankle surgery recently at [facility], being seen for acutely worsening pain in the left foot and ankle and noted swelling. Pt also noted some weeping onto bandage. 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 Imaging electrocard iogram 2021 022 [email or web address] [facility], [address] [place] [address], [id number], 13:06:56 Medication Orders ceftriaxone 1 gram solution for injection 2021 022 vilma Not available 18:55:44 ketorolac 30 mg/mL (1 mL) injection solution 2021 022 ramoneo Not available 18:55:45 ondansetron 4 mg disintegrat ing tablet 2021 022 [facility], [address] [place] [address], [id number], 2 12:51:15 ondansetron 4 mg disintegrat ing tablet [address] [facility], [address] [place] [address], [id number], 12:45:30 acetaminoph en 325 mg tablet 2022 023 shae [facility], [address] [place] [address], [id number], 3 18:40:47 Patient TargetsNo targets recorded. Patient InstructionsNo instructions recorded. Reason for Referral None Reported. Results Created Date Observation Date Name Description Value Unit Range Abnormal Flag Note LastModifiedBy Organization Detail LastModifiedTime 05/27/20 22 elect meghan diogr am No observ ation record ed. [address], [phone], 05/27/2022 13:06:54 Result Notes None recorded. Procedures Surgical History None recorded. Imaging Results Imaging Date Name Status LastModified by Organization Details LastModified Time 05/27/2022 electrocardiogram completed [address], [phone], 05/27/2022 13:06:54 Procedure Notes None recorded. Medical [...] TAKE 1 TABLET BY MOUTH AT BEDTIME HAH=986MB active Not Available Not Available No t [...] Details Last Updated DateTime 3 81 /min 47143.8 64 g 96 % 96 % 97.8 [degF] 16 /min 170.18 cm 123 mm[Hg] 74 mm[Hg] Not Available [employer] 3 18:33:57 Date Recorded Heart rate Oxygen saturation Oxygen saturation in Arterial blood by Pulse oximetry Body temperature Respiratory rate Systolic blood pressure Diastolic blood pressure Provider Name and Address Organization Details Last Updated DateTime 2 74 /min 97 % 97 % 99 [degF] 18 /min 127 mm[Hg] 65 mm[Hg] Not Available [employer] 2 15:32:28 Date Recorded Oxygen saturation Oxygen [...] % 95 % 167.64 cm 76 /min 44778.5 6 g 98.9 [degF] 20 /min 76 /min 167.64 cm 20 /min 95 % 95 % 16283.5 6 g 98.9 [degF] 111 mm[Hg] 81 mm[Hg] 111 mm[Hg] 81 mm[Hg] Not Available [employer] 2 12:42:49 Date Recorded Oxygen saturation Oxygen [...] 2 98 % 98 % 91 /min 51461.4 g 170.18 cm 18 /min 98.4 [degF] 98 % 98 % 18 /min 98.4 [degF] 69430. 4 g 91 /min 170.18 cm 171 [...] 2140 Karrie Parsons MD Main - [facility] [address] [place] [phone] 02/10/2022 15:19:47 05/05/2022 16:06:19 Fracture of ankle [id number] S82.92XD 2149 Rell Gomez MD Main - [facility] [address] [place] [phone] 02/11/2022 12:19:35 05/06/2022 15:07:41 Cellulitis of lower limb [id number] L03.119 4266 Karrie Parsons MD Main - [facility] [address] [place] [phone] 05/27/2022 12:29:03 05/28/2022 14:02:41 Nausea and vomiting [id number] R11.2 15496 Yvon Hare MD Main - [facility] [address] [place] [phone] 03/07/2023 18:33:32 03/08/2023 12:39:21 Edema of lower extremity [id number] R60.0 Health Concerns Section Related Observation LastModified by Organization Detai ls LastModified Time None Recorded Concern Status LastModified by Organization Details LastModified Time None Recorded Advance Directives Directive None Recorded Payers Encounter Date Sequence Insurance Name Policy Number Policy Phillip Covered Member ID Phillip Member ID Guarantor Name 02/10/2022 1 [facility] DOS PRIOR TO 2022 - DUAL ELIGIBLE (MEDICARE REPLACEMENT/ADV ANTAGE - HMO) Amadari Garza [id number] Kinmukesh Garza 02/11/2022 1 [facility] - DOS PRIOR TO 2022 - DUAL ELIGIBLE (MEDICARE REPLACEMENT/ADV ANTAGE - HMO) Amadari Garza [id number] Amadari Garza 05/27/2022 1 [facility] - DOS PRIOR TO 2022 - DUAL ELIGIBLE (MEDICARE REPLACEMENT/ADV ANTAGE - HMO) Kinmukesh Garza [id number] Kinmukesh Garza 03/07/2023 1 [facility] - DOS ON OR AFTER 2022 - DUAL ELIGIBLE - SNF OPTIONS AND ONE CARE (MEDICARE REPLACEMENT/ADV ANTAGE - HMO) Rosie Garza [id number] Rosie Garza Notes Date Note Type Note Provider Name and Address Organization Details Recorded Time 02/10/2022 text/html HPI: Covid Positive on 01/27/22 [facility] reported asymptomatic. Denied respiratory sx. 71 y.o. 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 Fall on 01/27/22, fx of left ankle, treated twice at [facility], 01/27 to 02/03, surgery on left ankle, [...] ................... ................... ................... ................... ................... ................... ........ School Janitor Note: Pt complains of 9/10 left ankle pain after falling last week. Pt left AMA from [facility] yesterday because he didn? t want a avery bed. Pt states he will go back to ED today. [employer] contacted. Doctor agreed that it? s in best interest for him to receive continued care from providers who have been attending to him already. ................... ................... ................... ................... ................... ................... ................... ........ Disposition: Fulfilled Karrie Parsons MD [address] [place] [address],[address], [place], [phone], [employer] 02/10/2022 21:27:37 02/11/2022 text/html HPI: Member phoned [...] ................... ................... ................... ................... ................... ................... ........ School Janitor Note: Patient is a 71 year old [...] has a temporary cast and cruzito/stiches by [facility]. Patient was sent home with instructions to follow up with ortho, no anti biotics or pain management. Patient has ortho appointment tomorrow morning at 0915. Foot is very swollen, red, tender, painful to touch and to move, warm to touch. Pain 10/10. Patient taking Advil for symptoms with good effect. Pictures sent over in [employer] namita for viewing. No further complaints. Vital [...] 1 gram of Ceftriaxone IV, patient agreed. School Janitor Edison Dockery was dispatched for IV interventions. See pens and pencils repairer Edison Dockery patient care report for further details. Contact [facility] for re-visit if symptoms persist. Contact 911 for any discussed red flags or other emergencies. ................... ................... ................... ................... ................... ................... ................... ........ Disposition: Fulfilled Rell Gomez MD [address] [place] [address],[address], [place], [phone], [email or web address] 02/11/2022 13:25:28 05/27/2022 text/html HPI: recent priapism, had corrective procedure in ED 05/26/22, Martino Catheter draining clear blood tinged urine, member has had nausea and some vomiting since and pain in penis, was prescribed Tramadol, did not receive script ................... ................... ................... ................... ................... ................... ................... ........ [facility] Nursing Assessment: Comments: review request no further information needed to process visit ................... ................... ................... ................... ................... ................... ................... ........ School Janitor Note: Sent to a call for a [...] Skin: pink, warm, dry; Urine: Bright red; [facility] orders 12 lead ECG: uploaded to [facility], and Ondansetron 4mg SL; [facility] sends script to pt's pharmacy for Ondansetron. Red flags discussed. Pt/family have no further questions. ................... ................... ................... ................... ................... ................... ................... ........ Disposition: Fulfilled Karrie Parsons MD [address] [facility],[address], [place], [phone], [facility] [email or web address] 05/27/2022 14:36:52 03/07/2023 text/html [facility] Nursing Assessment: [...] swelling or warmth. Member agreeable to an [facility] visit. ................... ................... ................... ................... ................... ................... ................... ........ School Janitor Note From Lex Riley: Mobile health call [...] follow up with pcp. Tylenol given by Duda. Patient education provided ................... ................... ................... ................... ................... ................... ................... ........ Disposition: Fulfilled Yvon Hare MD [address] [facility],[address], [place], [phone], [facility] [employer] 03/07/2023 20:10:15
--- NOTE | 2024-08-21 19:05 | MHC.EDTECH ---
CALLED MEDICAL EXAMER AT 1845, PER REQUEST OF DR TRONCOSO. SPOKE WITH SILVIA HYDE FOR INTAKE,
--- NOTE | 2024-08-21 19:30 | PC.NURSE ---
pt BIBA from home. pt LKW approx 1620 EMS received call for unresponsive male at 1720. on scene pt found to be in asystole, EMS began CPR with kasi, inserted and IJEL, placed 20G IV in SALBADOR AC, IO in R tib/fib. gave 7 rounds of Epi, 2 grams of magnesium, 2mg narcan, 450 mg Amiodarone, 1 amp of calcium, 1 amp bicarb and 1 amp LIdocane. on scene EMS reported there was a bag of heroin in view. pt was shocked 6 times in field. arrived to [facility] ED room 4 at 1822 where MD Lemus placed a 7.5 ETT 28 at the lip, 3 rounds of IV EPI were given. pt was found to be pulseless and in asystole on all pulse checks. TOD was called at 1832.
--- NOTE | 2024-08-21 19:33 | PC.NURSE ---
JANETTE called at 1858, this RN spoke with Barbara. JANETTE accepted at this time with CASE# [id number]
--- NOTE | 2024-08-21 19:34 | PC.NURSE ---
pt estimated to be 5'10, bed scale weight of 96.3, pt has no jewelry on his person, only wearing boxer shorts, socks on both feet and a cut tank top. there are SALBADOR bruises to his lower abdomen, and what appears to be an umbilical hernia on SALBADOR sides of his umbilicus.there are no obvious signs of injury of trauma
[2024-08-25 08:22] LABS: Glucose, Whole Blood 298 mg/dL (60-115)
== END 2024-08-21 22:19 | disposition expired ==
PROVIDERS: Emergency Provider Emergency Medicine
DX: I46.9 Cardiac arrest, cause unspecified (principal); E11.9 Type 2 diabetes mellitus without complications; I10 Essential (primary) hypertension; J44.9 Chronic obstructive pulmonary disease, unspecified; K21.9 Gastro-esophageal reflux disease without esophagitis; G47.33 Obstructive sleep apnea (adult) (pediatric); F11.20 Opioid dependence, uncomplicated; Z79.84 Long term (current) use of oral hypoglycemic drugs; Z79.899 Other long term (current) drug therapy
CPT/HCPCS: 82947; 96374; 99282; 99285; J0171; J0282; J2003; J2310; J3475